=== PATIENT | female | born 1960 | race Caucasian/White ===

== ENCOUNTER 2022-03-14 09:57 | Emergency (ER) | payer OTHER, SELFPAY ==
[2022-03-14 09:58] VITALS: BP 128/85; PULSE 100; RESP 17; TEMP 36.5; O2SAT 97; BMI 30.9
--- NOTE | 2022-03-14 10:15 | EDS_ITS ---
HPI History of Present Illness Chief Complaint: Chest Pain Informant: patient Onset/Context/Timing Onset: Today Activity at onset: gradual Timing: Continuous Quality: Positive for Aching Location: Left Parasternal Worsened By: Breathing Relieved By: Nothing Associated Symptoms: Positive for Cough and Lightheadedness; Negative for Nausea, Vomiting, Diaphoresis, Dyspnea, Fever, Acid Reflux or Palpitations Narrative Narrative: Patient presents with chest pain that began today. Patient states it has gradually gotten worse. Patient describes it as aching. Patient states it is over the left parasternal area. Patient states it is worse with deep breathing. Patient states nothing seems to help with it. Patient admits to a cough but denies any shortness of breath. Patient denies any nausea or vomiting. Patient does admit to some lightheadedness. Patient denies any fevers or chills. Patient denies any palpitations. Patient has a family history with a sibling with coronary artery disease in his early 50s. Patient denies any other cardiac or PE risk factors. [facility] Medical History (Updated 03/14/22 @ 13:[address] Nirav Puente, ) A-fib Pulmonary HTN Sleep apnea Home Medications Vitamin B-12 DAILY 03/14/22 [History Last Taken Unknown] Vitamin C DAILY 03/14/22 [History Last Taken Unknown] Vitamin D3 DAILY 03/14/22 [History Last Taken Unknown] potassium DAILY 03/14/22 [History Last Taken Unknown] rivaroxaban 20 mg tablet (Xarelto) 20 mg PO DAILY 03/14/22 [History Last Taken Unknown] vitamin E DAILY 03/14/22 [History Last Taken Unknown] Allergy/AdvReac Type Severity Reaction Status Date / Time codeine Allergy Other Verified 03/14/22 10:07 ibuprofen [From Motrin] Allergy Hives Verified 03/14/22 10:07 Iodinated Contrast Media [CT] Allergy Chest Verified 03/14/22 10:07 tightness morphine Allergy Hives Verified 03/14/22 10:07 phenytoin sodium Allergy Other Verified 03/14/22 10:07 [From Dilantin] phenytoin sodium extended Allergy Other Verified 03/14/22 10:07 [From Dilantin] sulfamethoxazole Allergy Hives Verified 03/14/22 10:07 [From Bactrim] trimethoprim [From Bactrim] Allergy Hives Verified 03/14/22 10:07 Surgical History (Updated 03/14/22 @ 10:[address] Nirav Puente DO) History of bunionectomy Hx of tonsillectomy Hx of tubal ligation Social History Smoking Status: Never smoker ROS ROS ED Constitutional Constitutional ED: Denies chills or fever(s) Eyes Eyes: Denies blurry vision or change in vision ENT ENT ED: Reports rhinorrhea; Denies sore throat Cardiovascular Cardiovascular: Reports chest pain; Denies palpitations Respiratory/Chest Respiratory/Chest: Reports cough; Denies dyspnea Gastrointestinal Gastrointestinal: Denies abdominal pain, nausea or vomiting Genitourinary Genitourinary ED: Denies dysuria or hematuria Musculoskeletal Musculoskeletal: Reports back pain and neck pain Integumentary Denies abscess or rash Neurologic Neurologic: Denies headache(s) or weakness Allergic/Immunologic Allergic/Immunologic ED: Denies mouth swelling or urticaria EXAM Physical Exam Const Vital Signs: 03/14/22 09:58 03/14/22 10:08 03/14/22 10:30 Temperature 97.7 F L Temperature Source Temporal Pulse Rate 100 Respiratory Rate 17 Respiratory Effort Normal Non-Labored Blood Pressure 128/85 H Blood Pressure Mean 99 Pulse Ox 97 96 Oxygen Delivery Method Room Air Room Air 03/14/22 11:38 03/14/22 13:34 Temperature Temperature Source Pulse Rate 90 Respiratory Rate 22 H Respiratory Effort Blood Pressure 118/70 113/69 Blood Pressure Mean 86 83 Pulse Ox 95 Oxygen Delivery Method Room Air Positive well nourished and well developed General Appearance ED: well developed and NAD HEENT normocephalic and atraumatic Eyes PERRL and EOMs intact bilaterally Neck supple and no JVD Chest Wall palpation of chest normal Resp normal respiratory effort and clear to auscultation bilaterally Effort and Inspection: Negative for respiratory distress Cardio regular rate, regular rhythm and no murmurs GI normal to inspection, nondistended, normoactive bowel sounds, soft to palpation, non-tender and non-distended Extremity normal to inspection General Extremety ED: Negative for edema or tenderness General Extremity: Negative for edema Neuro oriented x3, CN's II-XII intact bilaterally and no sensory deficits noted Sensorium / Orientation: awake and alert Motor Exam: strength 5/5 throughout Psych mental status grossly normal Heart Score History: Slightly/Non-Suspicious ECG: Normal Age: >45 - <65 years Risk Factors: 1 or 2 Risk Factors Troponin: </= Normal Limit Score: 2 MDM MDM MDM Narrative Medical decision making narrative: EKG was obtained. On my interpretation, it showed a normal sinus rhythm with a rate of 100 with occasional PVCs and PACs. ND interval, QRS interval, and QTc intervals were all normal. [place] was normal. There are no acute ST or T wave changes. Portable 1 view chest x-ray was obtained. On my interpretation, lung العلي are clear. There is normal cardiac silhouette. Bony thorax is normal. There is no acute process noted. Radiologist also interpreted the x-ray and agrees. CBC was within normal limits. Basic metabolic profile was within normal initial high-sensitivity troponin was normal at 7. 2-hour repeat high-sensitivity troponin was also normal at 5. Patient feels better on reevaluation. Patient was advised of her findings. Patient has a HEART score of 3. Patient was advised that this is low risk for acute cardiac event. Patient was instructed to follow-up with her primary care physician in 5 to 7 days. Patient was also instructed to follow-up with her research center director as scheduled. Patient understood and was agreeable with the plan. All questions were answered. Lab Data Attestation: I reviewed the patient's lab results. Labs: Laboratory Results - last 24 hr 03/14/22 03/14/22 03/14/22 10:05 10:05 12:25 WBC 10.0 RBC 4.54 Hgb 14.1 Hct 40.7 MCV 89.6 MCH 31.1 MCHC 34.6 RDW Std Deviation 44.9 H RDW Coeff of Jenn 14.1 Plt Count 228 MPV 10.2 Immature Gran % (Auto) 0.700 Neut % (Auto) 71.1 H Lymph % (Auto) 20.7 Eddy % (Auto) 5.5 Eos % (Auto) 1.6 Baso % (Auto) 0.4 Absolute Neuts (auto) 7.1 Absolute Lymphs (auto) 2.07 Nucleated RBC % 0 Sodium 140 Potassium 3.6 Chloride 106 Carbon Dioxide 28.0 Anion Gap 6 BUN 21 H Creatinine 0.87 Estim Creat Clear Calc 64.37 Est GFR (MDRD) Af Amer 85 Est GFR (MDRD) Non-Af 70 BUN/Creatinine Ratio 24.1 H Glucose 118 H Calcium 9.6 Troponin I High Sens 7 5 Radiography Chest X-Ray - ED: 1 View, Read by ED Physician, Read by Radiologist and No Acute Disease Diagnostic Testing: Clinical Impression(s) from Imaging Studies Chest X-Ray 03/14/22 10:30 IMPRESSION: No evidence of acute cardiopulmonary process. Electronically Signed: Jacob Rivera DO at 11:06 EDT Reading Location ID and State: [facility] / [place] , Service support , EKG Initial EKG: Attestation: I personally reviewed and interpreted this EKG as follows: Interpretation: Sinus Rhythm (100 with frequent PVCs and PACs) and No Acute Injury Pattern Prior EKG tracings: available for review Prior: Unchanged Discharge Plan Triage Chief Complaint: Chest Pain ED Provider: Nirav Puente Dx/Rx/DC Orders Clinical Impression: Chest pain Instructions: ED Chest Pain, Uncertain Cause Prescriptions: No Action Xarelto 20 mg Tablet 20 mg PO DAILY Rx Instructions: must administer with evening meal Vitamin B-12 DAILY Vitamin C DAILY Vitamin D3 DAILY potassium DAILY vitamin E DAILY Primary Care Provider: MAR MOORE Referrals: Town Doctor,Out of [NON-STAFF] - 5-7 Days Disposition Disposition: Home, Self Care
--- NOTE | 2022-03-14 10:20 | EKG12_ITS ---
Test Reason : CHEST PAIN Blood Pressure : / mmHG Vent. Rate : 100 BPM Atrial Rate : 100 BPM P-R Int : 168 ms QRS Dur : 068 ms QT Int : 352 ms P-R-T Axes : 021 099 024 degrees QTc Int : 454 ms Atrial fibrillation Low voltage QRS Confirmed by SAPNA CRURAN, STUART ([id number]), industrial editor ROBIN ROLAND ([id number]) on 03/16/2022 11:28:49 AM Referred By: DELICIA Confirmed By:STUART ALEJO MD
[2022-03-14] MEDS: Aspirin 81 MG TAB.CHEW 324 MG PO (10:25)
[2022-03-14 10:29] LABS: Absolute Lymphocyte Count 2.07 X10^3/uL (0.83-4.51); Absolute Neutrophil Count 7.1 X10^3/uL (2.0-7.7); Basophil# 0.04 X10^3/uL; Basophil% 0.4 % (0-1); Eosinophil# 0.16 X10^3/uL; Eosinophils% 1.6 % (0-5); Hematocrit 40.7 % (37-47); Hemoglobin 14.1 g/dL (12.0-15.0); Lymphocyte # 2.07 X10^3/ul (0.83-4.51); Lymphocyte % 20.7 % (19-41); Mean Corp Hgb Conc 34.6 g/dL (32-36); Mean Corpuscular Hgb 31.1 pg (27.0-32.0); Mean Corpuscular Volume 89.6 fL (81-99); Mean Platelet Vol. 10.2 fl (6.2-12.0); Monocyte# 0.55 X10^3/uL; Monocyte% 5.5 % (0-10); NRBC Flagged by Analyzer 0 % (0-5); Neutrophil # 7.13 X10^3/uL (2.7-7.7); Neutrophil % 71.1 % (47-70); Platelet Count 228 K/mm3 (150-450); RBC Distribution Width CV 14.1 % (11.6-14.6); RBC Distribution Width SD 44.9 fl (35.1-43.9); Red Blood Count 4.54 M/mm3 (4.2-5.4)
[2022-03-14 10:30] VITALS: O2SAT 96
--- NOTE | 2022-03-14 10:30 | RAD_ITS ---
STUDY: X-RAY CHEST REASON FOR EXAM: Female, 61 years old. chest pain TECHNIQUE: Single AP portable view of the chest. COMPARISON: 02/17/2016 FINDINGS: The lungs are clear and expanded. There is no demonstrated pleural abnormality. There is borderline cardiomegaly. Normal mediastinum and vale. Normal visualized pulmonary arteries. Normal visualized aortic arch and descending thoracic aorta. Normal visualized thoracic spine. Normal visualized ribs, clavicles, and shoulders. There is no demonstrated abnormality of the visualized soft tissue structures of the upper abdomen. RAD/Chest 1 View (Portable) IMPRESSION: No evidence of acute cardiopulmonary process. Electronically Signed: Jacob Rivera DO at 11:06 EDT ,
[2022-03-14 10:47] LABS: Anion Gap 6 (5-15); BUN 21 mg/dL (7-18); BUN/Creat Ratio 24.1 RATIO (10-20); Calcium,Total 9.6 mg/dL (8.5-10.1); Chloride 106 mmol/L (98-107); Creatinine, Serum 0.87 mg/dL (0.55-1.02); EST Glomerular Filtration Rate 70 mL/min (>60); Est Glom Filt Rate - Afr Amer 85 mL/min (>60); Estimated Creatinine Clearance 64.37 ml/min; Glucose 118 mg/dL (74-106); Potassium 3.6 mmol/L (3.5-5.1); Sodium Level 140 mmol/L (136-145); Troponin-I HS (w/2H Reflex) 7 pg/mL (3.0-54.0)
[2022-03-14 11:38] VITALS: BP 118/70
[2022-03-14 12:25] LABS: Reflex Troponin-HS? (from REC) Y
[2022-03-14 12:58] LABS: Troponin-I HS 5 pg/mL (3.0-54.0)
[2022-03-14 13:34] VITALS: BP 113/69; PULSE 90; RESP 22; O2SAT 95
[2022-03-14 13:55] VITALS: BP 113/69; PULSE 86; RESP 20; O2SAT 94
== END 2022-03-14 14:01 | disposition home or self-care (01) ==
PROVIDERS: Emergency Provider Emergency Medicine; Visit Provider Emergency Medicine
DX: R07.9 Chest pain, unspecified (principal); I48.91 Unspecified atrial fibrillation; Z79.01 Long term (current) use of anticoagulants; Z82.49 Family history of ischemic heart disease and other diseases of the circulatory system
CPT/HCPCS: 71045; 80048; 84484; 85025; 93005; 99284; A4216

== ENCOUNTER → 2022-11-16 | Outpatient (CLI) | payer OTHER, SELFPAY ==
--- NOTE | 2022-11-16 10:17 | RAD_ITS ---
INDICATION: PAIN EXAMINATION/TECHNIQUE: X-RAY - XR Pelvis 1 or 2 Views COMPARISON: None. FINDINGS: PELVIC BONES: No displaced fracture, destructive or sclerotic lesions. Note that overlapping bowel shadows may however obscure fine detail. Sacroiliac joints are unremarkable. No widening of the pubic symphysis. HIPS: There are bilateral degenerative changes of the hips, left greater than right characterized by joint space narrowing and subchondral sclerosis. SOFT TISSUES: No soft tissue swelling or gas. RAD/Pelvis 1 or 2 Views IMPRESSION: Degenerative changes of the hips, left greater than right. Electronically Signed: Whit Medina MD at 8:41 EST ,
[2022-11-16 11:19] LABS: EXAGEN MAILED SPECIMEN
[2022-11-16 12:22] LABS: Color, Urine Yellow (Yellow); Glucose, Dipstick Normal (Normal); Ketone-Dipstick Negative (Negative); Leukocyte Esterase-Dipstick 500 /ul (Negative); Nitrite-Dipstick Negative (Negative); Occult Blood-Urine 25 /ul (Negative); Protein-Dipstick 15 mg/dl (Negative); Specific Gravity, Urine 1.025 (1.002-1.030); Urine Bilirubin Dipstick Negative (Negative); Urine Clarity Sl. Cloudy (Clear); Urine Urobilinogen Normal (Normal)
[2022-11-16 12:27] LABS: Erythrocyte Sedimentation Rate 5 mm/hr (0-30)
[2022-11-16 12:33] LABS: International Normalized Ratio 1.6; Prothrombin Time (Protime)PT. 18.8 SECONDS (11.7-14.9)
[2022-11-16 12:34] LABS: Partial Thromboplast Time 38.3 Seconds (24.1-36.2)
[2022-11-16 12:44] LABS: Absolute Lymphocyte Count 1.07 X10^3/uL (0.83-4.51); Absolute Neutrophil Count 4.4 X10^3/uL (2.0-7.7); Basophil# 0.05 X10^3/uL; Basophil% 0.8 % (0-1); Eosinophil# 0.15 X10^3/uL; Eosinophils% 2.5 % (0-5); Hematocrit 37.8 % (37-47); Hemoglobin 13.1 g/dL (12.0-15.0); Lymphocyte # 1.07 X10^3/ul (0.83-4.51); Lymphocyte % 17.5 % (19-41); Mean Corp Hgb Conc 34.7 g/dL (32-36); Mean Corpuscular Hgb 31.6 pg (27.0-32.0); Mean Corpuscular Volume 91.1 fL (81-99); Monocyte# 0.38 X10^3/uL; Monocyte% 6.2 % (0-10); NRBC Flagged by Analyzer 0 % (0-5); Neutrophil # 4.43 X10^3/uL (2.7-7.7); Neutrophil % 72.7 % (47-70); Platelet Count 144 K/mm3 (150-450); Protein, Urine (Random) 11.4 mg/dL (<11.9); Protein:Creat Ratio 76 mg/g CRE (0-200); RBC Distribution Width SD 45.3 fl (35.1-43.9); Red Blood Count 4.15 M/mm3 (4.2-5.4); White Blood Count 6.1 K/mm3 (4.4-11.0)
[2022-11-16 12:52] LABS: AST(SGOT) 174 U/L (15-37); Alanine Aminotransfer ALT/SGPT 297 U/L (13-56); Albumin, Serum 3.9 g/dL (3.2-5.0); Alkaline Phosphatase 122 U/L (45-117); Anion Gap 4 (5-15); BUN 20 mg/dL (7-18); BUN/Creat Ratio 24.9 RATIO (10-20); CRP 7.98 mg/L (0.0-3.0); Calcium,Total 9.1 mg/dL (8.5-10.1); Chloride 104 mmol/L (98-107); EST Glomerular Filtration Rate 77 mL/min (>60); Est Glom Filt Rate - Afr Amer 93 mL/min (>60); Globulin 3.9 g/dL (2.2-4.2); Glucose 95 mg/dL (74-106); Potassium 3.4 mmol/L (3.5-5.1); Protein, Total 7.8 g/dL (6.4-8.2); Sodium Level 139 mmol/L (136-145)
[2022-11-18 14:07] LABS: Dilute Prothrombin Time (dPT) 63.7 sec (0.0-47.6); Dilute Russell Viper Venom 96.3 sec (0.0-47.0); Hexagonal Phase Phospholipid 4 sec (0-11); Hexagonal Phase Phospholipid 2 4 sec (0-11); Thrombin Time 16.1 sec (0.0-23.0); dPT Confirm Ratio 0.85 Ratio (0.00-1.34)
[2022-11-19 09:50] LABS: Interpretation Comment: (.); PTT-LA 48.2 sec (0.0-43.5); PTT-LA Mix 45.2 sec (0.0-40.5)
== END | disposition home or self-care (01) ==
LOC: MTLAB 10:15
PROVIDERS: Referring Provider Internal Medicine Rheumatology; Visit Provider Internal Medicine Rheumatology
DX: M65.341 Trigger finger, right ring finger (principal); R76.8 Other specified abnormal immunological findings in serum; M16.0 Bilateral primary osteoarthritis of hip; R10.2 Pelvic and perineal pain
CPT/HCPCS: 36415; 72170; 80053; 81002; 82570; 84156; 85025; 85598; 85610; 85652; 85730; 86140

== ENCOUNTER 2023-10-09 06:22 | Inpatient (IN) | payer OTHER, SELFPAY ==
[2023-10-09] VITALS (10 sets, daily range): BP systolic 110–135; BP diastolic 55–75; PULSE 62–87; RESP 15–17; TEMP 36.5–37; O2SAT 94–98; BMI 29.1; BMI 28.7
--- NOTE | 2023-10-09 07:03 | EKG12_ITS ---
Test Reason : ABD PAIN Blood Pressure : / mmHG Vent. Rate : 069 BPM Atrial Rate : 069 BPM P-R Int : 176 ms QRS Dur : 068 ms QT Int : 430 ms P-R-T Axes : 051 072 051 degrees QTc Int : 460 ms Normal sinus rhythm Low voltage QRS Borderline ECG Confirmed by RODY CURRAN, KHADAR ([id number]), development editor ROBIN ROLAND ([id number]) on 10/11/2023 7:59:09 AM Referred By: Confirmed By:KHADAR FINE MD
--- NOTE | 2023-10-09 07:13 | CT_ITS ---
STUDY: CT ABDOMEN AND PELVIS WITH CONTRAST - URINARY TRACT REASON FOR EXAM: Female, 63 years old. abdominal pain RADIATION DOSAGE (If Supplied By Facility): CTDIvol = ( 14.67 ) mGy, DLP = ( 996.86 ) mGycm TECHNIQUE: IV 100mL Isovue-370 was administered. Transaxial images were obtained from the dome of the diaphragm to the symphysis pubis in the arterial, nephrographic and excretory phases. Multiplanar coronal and sagittal images were reformatted. Individualized Dose Optimization Techniques Were Used For This CT. COMPARISON: No priors available. FINDINGS: The visualized lung bases are unremarkable. The visualized portions of the heart are within normal limits. Normal liver. The gallbladder slightly distended. There is splenomegaly. Normal pancreas. Normal bilateral adrenal glands. Normal visualized stomach. Normal small intestine. Normal colon. There are surgical clips in the region of the appendix consistent with a prior appendectomy. Normal abdominal aorta. No retroperitoneal adenopathy. Normal right kidney. There are too small to characterize low attenuation foci within the left kidney which likely represent cysts. Normal urinary bladder. Normal abdominal wall. There are diffuse degenerative changes of the visualized thoracic and lumbar spine. CT/Abdomen/Pelvis W IV Cont ONLY IMPRESSION: Splenomegaly. Mildly distended gallbladder with no associated gallbladder wall thickening or pericholecystic fluid, consider right upper quadrant ultrasound for further evaluation. Electronically Signed: Whit Medina MD at 9:56 EST ,
--- NOTE | 2023-10-09 07:47 | EDS_ITS ---
HPI <Dr. Yovanny Bran DO - Last Filed: 10/14/23 22:05> History of Present Illness Chief Complaint: Abd Pain Informant: patient and family Narrative Narrative: Patient is a 63-year-old female with past medical history of atrial fibrillation on Xarelto as well as pulmonary hypertension and sleep apnea. She states that last night around midnight she developed pain in the midepigastric region with mild nausea. She states as the night progressed the pain began to wrap around towards her sides and back and increased in severity. She states that with the increased pain she is concerned that this could be potential infection or even cardiac based on it occurring in the upper abdomen and therefore comes in for evaluation PENDING SALE TO [facility] <Dr. Yovanny Bran, - Last Filed: 10/14/23 22:05> PENDING SALE TO [facility] Medical History (Updated 10/12/23 @ 08:[address] Elvia Terrell MD) A-fib Cirrhosis Pulmonary HTN Sleep apnea Home Medications rivaroxaban 20 mg tablet (Xarelto) 20 mg PO QPM BLOOD THINNER 03/14/22 [History Last Taken 10/08/23] acetaminophen 325 mg tablet 325 mg PO Q6H PRN PAIN 10/09/23 [History Last Taken Unknown] bumetanide 1 mg tablet 1 mg PO DAILY PRN EDEMA 10/09/23 [History Last Taken Unknown] buspirone 5 mg tablet 5 mg PO TID PRN ANXIETY 10/09/23 [History Last Taken Unknown] cholecalciferol (vitamin D3) 25 mcg (1,000 unit) tablet (Vitamin D3) 25 mcg PO DAILY SUPPLEMENT 10/09/23 [History Last Taken 10/08/23] colchicine 0.6 mg tablet 0.6 mg PO Q12H GOUT 10/09/23 [History Last Taken 10/08/23] cyanocobalamin (vitamin B-12) 1,000 mcg capsule 1,000 mcg PO DAILY SUPPLEMENT 10/09/23 [History Last Taken 10/08/23] dofetilide 500 mcg capsule (Tikosyn) 500 mcg PO BID AFIB 10/09/23 [History Last Taken 10/08/23] magnesium 250 mg tablet 250 mg PO BID SUPPLEMENT 10/09/23 [History Last Taken 10/08/23] metoprolol succinate 25 mg tablet,extended release 24 hr 12.5 mg PO QPM BLOOD PRESSURE 10/09/23 [History Last Taken 10/08/23] metoprolol succinate 25 mg tablet,extended release 24 hr 25 mg PO DAILY BLOOD PRESSURE 10/09/23 [History Last Taken 10/08/23] pantoprazole 40 mg tablet,delayed release 40 mg PO DAILY ACID REFLUX 10/09/23 [History Last Taken 10/08/23] potassium chloride 20 mEq tablet,extended release (K-Tab) 20 meq PO DAILY PRN SUPPLEMENT 10/09/23 [History Last Taken Unknown] tadalafil 20 mg tablet 20 mg PO BID LUNGS 10/09/23 [History Last Taken 10/08/23] tramadol 50 mg tablet 50 mg PO Q6H PRN pain #14 tabs 10/12/23 [Rx Last Taken Unknown] Allergy/AdvReac Type Severity Reaction Status Date / Time codeine Allergy Other Verified 03/14/22 10:07 ibuprofen [From Motrin] Allergy Hives Verified 03/14/22 10:07 Iodinated Contrast Media [CT] Allergy Chest Verified 03/14/22 10:07 tightness morphine Allergy Hives Verified 03/14/22 10:07 phenytoin sodium Allergy Other Verified 03/14/22 10:07 [From Dilantin] phenytoin sodium extended Allergy Other Verified 03/14/22 10:07 [From Dilantin] sulfamethoxazole Allergy Hives Verified 03/14/22 10:07 [From Bactrim] trimethoprim [From Bactrim] Allergy Hives Verified 03/14/22 10:07 Surgical History (Updated 10/12/23 @ 08:[address] Elvia Terrell MD) History of bunionectomy Hx of maze procedure Hx of tonsillectomy Hx of tubal ligation S/P ERCP S/P laparoscopic cholecystectomy Social History Smoking Status: Never smoker ROS <Dr. Yovanny Bran DO - Last Filed: 10/14/23 22:05> ROS ED Constitutional Constitutional ED: Denies chills or fever(s) Eyes Eyes: Denies change in vision ENT ENT ED: Denies sore throat Cardiovascular Cardiovascular: Denies chest pain Respiratory/Chest Respiratory/Chest: Denies cough or dyspnea Gastrointestinal Gastrointestinal: Reports abdominal pain and nausea; Denies diarrhea or vomiting Genitourinary Genitourinary ED: Denies dysuria Musculoskeletal Musculoskeletal: Reports back pain; Denies myalgias Integumentary Denies rash Neurologic Neurologic: Denies headache(s) Hematologic/Lymphatic Hematologic/Lymphatic: Reports easy bleeding and easy bruising EXAM <Dr. Yovanny Bran, DO - Last Filed: 10/14/23 22:05> Physical Exam Const Vital Signs: 10/09/23 06:23 10/09/23 08:22 10/09/23 10:22 Temperature 97.7 F L Temperature Source Temporal Pulse Rate 69 Respiratory Rate 15 16 16 Blood Pressure 135/63 H Blood Pressure Mean 87 Pulse Ox 96 Oxygen Delivery Method Room Air Positive well nourished and well developed General Appearance ED: well developed HEENT Reports dry mucous membranes HEENT Narrative: Mucous membranes are dry and tacky No airway edema or compromise No signs of infection noted in the posterior pharynx Mouth ED: Yes dry mucous membranes Mouth: dry mucous membranes Eyes PERRL and EOMs intact bilaterally General Eye ED: Negative for scleral icterus Neck supple Neck Narrative: No nuchal rigidity or meningeal signs noted Chest Wall palpation of chest normal Chest Narrative: No bony deformity or crepitance palpated Resp normal respiratory effort and clear to auscultation bilaterally Cardio regular rate and regular rhythm Rate: other Other Details: Radial and carotid pulses are equal and symmetric GI non-distended GI Narrative: There is pain with palpation in the midepigastric region without voluntary guarding or rigidity No pulsatile mass or fluid wave Auscultation: normoactive bowel sounds Palpation: soft Extremity Extremity Narrative: Trace pitting edema to the bilateral lower extremities that is equal and symmetric Negative Homans' sign bilaterally Neuro oriented x3, CN's II-XII intact bilaterally and no sensory deficits noted Sensorium / Orientation: alert Motor Exam: strength 5/5 throughout Psych mental status grossly normal Skin no rashes or lesions noted General Skin Exam: Negative for jaundice <Dr. Amber Garcia DO - Last Filed: 10/09/23 16:03> Physical Exam Const Vital Signs: 10/09/23 06:23 10/09/23 08:22 10/09/23 10:22 Temperature 97.7 F L Temperature Source Temporal Pulse Rate 69 Respiratory Rate 15 16 16 Blood Pressure 135/63 H Blood Pressure Mean 87 Pulse Ox 96 Oxygen Delivery Method Room Air MDM <Dr. Yovanny Bran, DO - Last Filed: 10/14/23 22:05> MDM MDM Narrative Medical decision making narrative: Patient presented to the ER with stable vitals and reported midepigastric abdominal pain that began around midnight. Differential diagnosis is for gastritis versus pancreatitis versus biliary colic versus colitis versus potential intestinal obstruction. Based on the high location of the pain there is also concern this could be acute coronary syndrome. Secondary to this an EKG was obtained which showed normal sinus rhythm and basic blood work was ordered as well. With concern for underlying infectious process or potential biliary colic or pancreatitis I did elect to perform a CT scan with IV contrast. At this time CT and laboratory studies are still pending and therefore patient be signed out to the day physician Dr. Mireles. Disposition will be per his discretion based on imaging and laboratory studies History & Record Review Discussion w/independent historian: Patient and Family Lab Data Labs: Laboratory Results - last 24 hr 10/09/23 08:05 WBC 7.7 RBC 4.29 Hgb 13.2 Hct 37.9 MCV 88.3 MCH 30.8 MCHC 34.8 RDW Std Deviation 43.0 RDW Coeff of Jenn 13.8 Plt Count 157 MPV 10.0 Immature Gran % (Auto) 0.800 Neut % (Auto) 83.9 H Lymph % (Auto) 8.7 L [place] % (Auto) 5.7 Eos % (Auto) 0.4 Baso % (Auto) 0.5 Absolute Neuts (auto) 6.5 Absolute Lymphs (auto) 0.67 L Nucleated RBC % 0 Sodium 138 Potassium 4.0 Chloride 105 Carbon Dioxide 29.0 Anion Gap 4 L BUN 13 Creatinine 0.86 Estim Creat Clear Calc 70.63 Est GFR (MDRD) Af Amer 86 Est GFR (MDRD) Non-Af 71 BUN/Creatinine Ratio 15.2 Glucose 125 H Calcium 9.4 Total Bilirubin 3.00 H Direct Bilirubin 1.91 H AST 190 H ALT 101 H Alkaline Phosphatase 164 H Troponin I High Sens 7 Total Protein 7.4 Albumin 3.8 Globulin 3.6 Lipase 39 Radiography Diagnostic Testing: Clinical Impression(s) from Imaging Studies Abdomen/Pelvis CT 10/09/23 07:13 IMPRESSION: Splenomegaly. Mildly distended gallbladder with no associated gallbladder wall thickening or pericholecystic fluid, consider right upper quadrant ultrasound for further evaluation. Electronically Signed: Whit Medina MD at 9:56 EST , Gallbladder Ultrasound 10/09/23 08:34 IMPRESSION: Sludge and gallstones within a mildly distended gallbladder with no associated pericholecystic fluid, gallbladder wall thickening nor reported positive sonographic Munson''s sign. Electronically Signed: Whit Medina MD at 10:18 EST Reading Location ID and State: [facility] / [place] Tel , Service support , <Dr. Amber Garcia, DO - Last Filed: 10/09/23 16:03> [facility] MDM Narrative Medical decision making narrative: Patient presented to the ER with stable vitals and reported midepigastric abdominal pain that began around midnight. Differential diagnosis is for gastritis versus pancreatitis versus biliary colic versus colitis versus potential intestinal obstruction. Based on the high location of the pain there is also concern this could be acute coronary syndrome. Secondary to this an EKG was obtained which showed normal sinus rhythm and basic blood work was ordered as well. With concern for underlying infectious process or potential biliary colic or pancreatitis I did elect to perform a CT scan with IV contrast. At this time CT and laboratory studies are still pending and therefore patient be signed out to the day physician Dr. Mireles. Disposition will be per his discretion based on imaging and laboratory studies Care of patient turned over to tx awaiting a CT scan results as well as gallbladder ultrasound results and consultation with general surgery. Patient CT showed distended gallbladder otherwise nothing acute. Gallbladder ultrasound showed slightly distended gallbladder with sludge and gallstones. There is no gallbladder wall thickening or pericholecystic fluid. Patient clinically feels improved pain edmond but still has pain with palpation of the abdomen. I discussed case with Dr. Ventura who will admit patient. He did asked that we consult medicine for consult. I was asked to start patient on Zosyn. Lab Data Labs: Laboratory Results - last 24 hr 10/09/23 08:05 WBC 7.7 RBC 4.29 Hgb 13.2 Hct 37.9 MCV 88.3 MCH 30.8 MCHC 34.8 RDW Std Deviation 43.0 RDW Coeff of Jenn 13.8 Plt Count 157 MPV 10.0 Immature Gran % (Auto) 0.800 Neut % (Auto) 83.9 H Lymph % (Auto) 8.7 L [place] % (Auto) 5.7 Eos % (Auto) 0.4 Baso % (Auto) 0.5 Absolute Neuts (auto) 6.5 Absolute Lymphs (auto) 0.67 L Nucleated RBC % 0 Sodium 138 Potassium 4.0 Chloride 105 Carbon Dioxide 29.0 Anion Gap 4 L BUN 13 Creatinine 0.86 Estim Creat Clear Calc 70.63 Est GFR (MDRD) Af Amer 86 Est GFR (MDRD) Non-Af 71 BUN/Creatinine Ratio 15.2 Glucose 125 H Calcium 9.4 Total Bilirubin 3.00 H Direct Bilirubin 1.91 H AST 190 H ALT 101 H Alkaline Phosphatase 164 H Troponin I High Sens 7 Total Protein 7.4 Albumin 3.8 Globulin 3.6 Lipase 39 Radiography Diagnostic Testing: Clinical Impression(s) from Imaging Studies Abdomen/Pelvis CT 10/09/23 07:13 IMPRESSION: Splenomegaly. Mildly distended gallbladder with no associated gallbladder wall thickening or pericholecystic fluid, consider right upper quadrant ultrasound for further evaluation. Electronically Signed: Whit Medina MD at 9:56 EST Reading Location ID and State: [facility] / [place] Tel , Service support , Gallbladder Ultrasound 10/09/23 08:34 IMPRESSION: Sludge and gallstones within a mildly distended gallbladder with no associated pericholecystic fluid, gallbladder wall thickening nor reported positive sonographic Munson''s sign. Electronically Signed: Whit Medina MD at 10:18 EST , Discharge Plan Dx/Rx/DC Orders Clinical Impression: Elevated liver enzymes, Abdominal pain, Acute cholecystitis, Cholelithiasis Disposition Disposition: [facility] Discharge Date/Time: 10/09/23 14:16 Capacity <Dr. Yovanny Bran, DO - Last Filed: 10/14/23 22:05> Legal [employer] Reflex Medical hold order details:: IF a medical hold is selected below, a suggested order for a MEDICAL HOLD will reflex upon signing the document. Next of kin: [place] law dictates a PRIORITY LIST for identifying legal decision-maker/legal n ext of kin in the following order (LNOK): 1st: The patient?s legal guardian, if any 2nd: The patient's spouse (if status is questionable, consult Risk Management) 3rd: The patient?s adult child(alejandro) (majority, if multiple children) 4th: The patient?s parents 5th: The patient?s adult siblings (majority, if multiple children siblings)
[2023-10-09] MEDS: 0.9% Normal Saline (1000mL) 1,000 ML 999 ML IV (08:11)
[2023-10-09] MEDS: DiphenhydrAMINE 50 MG/ML Syringe 25 MG IV (08:11)
[2023-10-09] MEDS: MethylPREDNISolone 125 MG/2 ML Vial IV (08:11)
[2023-10-09] MEDS: Ondansetron 4 MG/2 ML Vial IV (08:11)
[2023-10-09] MEDS: Morphine 4 MG/ML Syringe IV (08:11)
[2023-10-09 08:12] LABS: Absolute Lymphocyte Count 0.67 X10^3/uL (0.83-4.51); Absolute Neutrophil Count 6.5 X10^3/uL (2.0-7.7); Basophil# 0.04 X10^3/uL; Basophil% 0.5 % (0-1); Eosinophil# 0.03 X10^3/uL; Eosinophils% 0.4 % (0-5); Hematocrit 37.9 % (37-47); Hemoglobin 13.2 g/dL (12.0-15.0); Lymphocyte # 0.67 X10^3/ul (0.83-4.51); Lymphocyte % 8.7 % (19-41); Mean Corp Hgb Conc 34.8 g/dL (32-36); Mean Corpuscular Hgb 30.8 pg (27.0-32.0); Mean Corpuscular Volume 88.3 fL (81-99); Monocyte# 0.44 X10^3/uL; Monocyte% 5.7 % (0-10); NRBC Flagged by Analyzer 0 % (0-5); Neutrophil % 83.9 % (47-70); Platelet Count 157 K/mm3 (150-450); RBC Distribution Width CV 13.8 % (11.6-14.6); Red Blood Count 4.29 M/mm3 (4.2-5.4); White Blood Count 7.7 K/mm3 (4.4-11.0)
[2023-10-09 08:33] LABS: AST(SGOT) 190 U/L (15-37); Alanine Aminotransfer ALT/SGPT 101 U/L (13-56); Albumin, Serum 3.8 g/dL (3.2-5.0); Alkaline Phosphatase 164 U/L (45-117); Anion Gap 4 (5-15); BUN 13 mg/dL (7-18); BUN/Creat Ratio 15.2 RATIO (10-20); Bilirubin, Direct 1.91 mg/dL (0.00-0.30); Calcium,Total 9.4 mg/dL (8.5-10.1); Chloride 105 mmol/L (98-107); Creatinine, Serum 0.86 mg/dL (0.55-1.02); EST Glomerular Filtration Rate 71 mL/min (>60); Est Glom Filt Rate - Afr Amer 86 mL/min (>60); Estimated Creatinine Clearance 70.63 ml/min; Globulin 3.6 g/dL (2.2-4.2); Glucose 125 mg/dL (74-106); Lipase 39 U/L (13-75); Protein, Total 7.4 g/dL (6.4-8.2); Sodium Level 138 mmol/L (136-145); Troponin-I HS 7 pg/mL (3.0-54.0)
--- NOTE | 2023-10-09 08:34 | US_ITS ---
INDICATION: Abdominal pain EXAMINATION: Ultrasound US Abdomen Limited (quadrant) TECHNIQUE: Quiroga scale and color doppler imaging was performed of the right upper quadrant. COMPARISON: CT dated October 09, 2023 FINDINGS: LIVER: There is normal echotexture. No focal hepatic lesion. There is no free fluid. GALLBLADDER AND BILIARY TREE: The gallbladder is mildly distended. There are gallstones and sludge within the gallbladder. There is no gallbladder wall thickening or pericholecystic fluid. The proximal common bile duct measures 8.2 mm and tapers distally to 4.6 mm. Songraphic Munson''s sign: Negative. PANCREAS: No focal abnormality is demonstrated in the pancreas. No pancreatic ductal dilatation. RIGHT KIDNEY: The right kidney measures 10.8 cm in length and is within normal limits. US/Gallbladder IMPRESSION: Sludge and gallstones within a mildly distended gallbladder with no associated pericholecystic fluid, gallbladder wall thickening nor reported positive sonographic Munson''s sign. Electronically Signed: Whit Medina MD at 10:18 EST ,
--- NOTE | 2023-10-09 13:00 | HP.PCM_ITS ---
HPI - General General Date of Admission: 10/09/23 Date of Service: 10/09/23 Chief Complaint: Choledocholithiasis HPI Narrative YUE ANGULO, is a 63 F who presents with an acute onset of abdominal pain/epigastric pain. Patient states she was laying in bed around midnight when her epigastric discomfort started. Patient states her pain continued to intensify wrapping around her upper abdomen like a belt and into her back between her shoulder blades. Patient notes she started to become nauseated once the pain became worse. Patient stated that is when she presented to the ED. She notes one other occasion that she had similar less intense pain on when she ate chili. Patient denies previous gallbladder symptoms. She notes a history of cirrhosis, diagnosed in 2016, secondary to [place]. She notes recently establishing with a liver specialist at the OR. She was diagnosed based off of imaging and lab work. She notes the liver specialist was going to have the patient perform a liver biopsy, however this has not been scheduled. Patient notes a cardiac history for which her cardiology team is out of [facility]. Patient states in July of 2022 she had an arterial septal defect repaired. She notes in April of 2023 she had a Maze procedure for A fib. Patient notes this was complicated by the development of pericarditis. She continues to be on Xarelto for A fib. Her last dose was yesterday. Patient also has pulmonary hypertension and sleep apnea for which she uses a CPAP machine for. She notes her only abdominal surgery has been for a bladder sling. She notes the Maze procedure, she has an epigastric incision. Patient had a CT scan of the ab/pel which demonstrated splenomegaly, mildly distended gallbladder with no associated gallbladder wall thickening or pericholecystic fluid. RUQ u/s was obtained demonstrating The gallbladder is mildly distended. There are gallstones and sludge within the gallbladder. There is no gallbladder wall thickening or pericholecystic fluid. The proximal common bile duct measures 8.2 mm and tapers distally to 4.6 mm. Patient's liver enzymes were elevated T bili 3.00, AST 190, ALT 101, Alk phos 164. Normal WBC. [facility] Medical History A-fib Pulmonary HTN Sleep apnea Home Medications rivaroxaban 20 mg tablet (Xarelto) 20 mg PO QPM BLOOD THINNER 03/14/22 [History Last Taken 10/08/23] acetaminophen 325 mg tablet 325 mg PO Q6H PRN PAIN 10/09/23 [History Last Taken Unknown] bumetanide 1 mg tablet 1 mg PO DAILY PRN EDEMA 10/09/23 [History Last Taken Unknown] buspirone 5 mg tablet 5 mg PO TID PRN ANXIETY 10/09/23 [History Last Taken Unknown] cholecalciferol (vitamin D3) 25 mcg (1,000 unit) tablet (Vitamin D3) 25 mcg PO DAILY SUPPLEMENT 10/09/23 [History Last Taken 10/08/23] colchicine 0.6 mg tablet 0.6 mg PO Q12H GOUT 10/09/23 [History Last Taken 10/08/23] cyanocobalamin (vitamin B-12) 1,000 mcg capsule 1,000 mcg PO DAILY SUPPLEMENT 10/09/23 [History Last Taken 10/08/23] dofetilide 500 mcg capsule (Tikosyn) 500 mcg PO BID AFIB 10/09/23 [History Last Taken 10/08/23] magnesium 250 mg tablet 250 mg PO BID SUPPLEMENT 10/09/23 [History Last Taken 10/08/23] metoprolol succinate 25 mg tablet,extended release 24 hr 12.5 mg PO QPM BLOOD PRESSURE 10/09/23 [History Last Taken 10/08/23] metoprolol succinate 25 mg tablet,extended release 24 hr 25 mg PO DAILY BLOOD PRESSURE 10/09/23 [History Last Taken 10/08/23] pantoprazole 40 mg tablet,delayed release 40 mg PO DAILY ACID REFLUX 10/09/23 [History Last Taken 10/08/23] potassium chloride 20 mEq tablet,extended release (K-Tab) 20 meq PO DAILY PRN SUPPLEMENT 10/09/23 [History Last Taken Unknown] tadalafil 20 mg tablet 20 mg PO BID LUNGS 10/09/23 [History Last Taken 10/08/23] Allergy/AdvReac Type Severity Reaction Status Date / Time codeine Allergy Other Verified 03/14/22 10:07 ibuprofen [From Motrin] Allergy Hives Verified 03/14/22 10:07 Iodinated Contrast Media [CT] Allergy Chest Verified 03/14/22 10:07 tightness morphine Allergy Hives Verified 03/14/22 10:07 phenytoin sodium Allergy Other Verified 03/14/22 10:07 [From Dilantin] phenytoin sodium extended Allergy Other Verified 03/14/22 10:07 [From Dilantin] sulfamethoxazole Allergy Hives Verified 03/14/22 10:07 [From Bactrim] trimethoprim [From Bactrim] Allergy Hives Verified 03/14/22 10:07 Surgical History History of bunionectomy Hx of maze procedure Hx of tonsillectomy Hx of tubal ligation Social History Smoking Status: Never smoker ROS Constitutional Constitutional: Reports systems reviewed and no addt'l complaints, except as documented Eyes Eyes: Reports systems reviewed and no addt'l complaints, except as documented ENT HEENT: Reports systems reviewed and no addt'l complaints, except as documented Cardiovascular Cardiovascular: Reports systems reviewed and no addt'l complaints, except as documented Respiratory/Chest Respiratory/Chest: Reports systems reviewed and no addt'l complaints, except as documented Gastrointestinal Gastrointestinal: Reports systems reviewed and no addt'l complaints, except as documented Genitourinary Genitourinary: Reports systems reviewed and no addt'l complaints, except as documented Musculoskeletal Musculoskeletal: Reports systems reviewed and no addt'l complaints, except as documented Integumentary Integumentary: Reports systems reviewed and no addt'l complaints, except as doc umented Neurologic Neurologic: Reports systems reviewed and no addt'l complaints, except as documented Psychiatric Psychiatric: Reports systems reviewed and no addt'l complaints, except as documented Endocrine Endocrinology: Reports systems reviewed and no addt'l complaints, except as documented Hematologic/Lymphatic Hematologic/Lymphatic: Reports systems reviewed and no addt'l complaints, except as documented Allergic/Immunologic Allergic/Immunologic: Reports systems reviewed and no addt'l complaints, except as documented Vital Signs Vital Signs Vital Signs: 10/09/23 06:23 10/09/23 08:22 10/09/23 10:22 Temperature 97.7 F L Temperature Source Temporal Pulse Rate 69 Respiratory Rate 15 16 16 Blood Pressure 135/63 H Blood Pressure Mean 87 Pulse Ox 96 Oxygen Delivery Method Room Air Weight Weight: 175 lb 0.752 oz Body Mass Index (BMI) 29.1 Physical Exam Const alert, oriented x3 and no apparent distress General Appearance: cooperative and comfortable HEENT normocephalic and head/scalp atraumatic Eyes PERRL Neck full ROM Chest inspection of chest normal Resp normal respiratory effort and clear to auscultation bilaterally Cardio regular rate and regular rhythm GI normal to inspection, nondistended, normoactive bowel sounds Palpation: tender epigastric no CVA tenderness Back/Spine no CVA tenderness Extremity normal to inspection Skin no rashes or lesions noted Neuro no focal motor deficits and no sensory deficits noted Psych mental status grossly normal Results Lab / Micro Data 10/09/23 08:05 10/09/23 08:05 Labs: Laboratory Results - last 24 hr 10/09/23 08:05: WBC 7.7, RBC 4.29, Hgb 13.2, Hct 37.9, MCV 88.3, MCH 30.8, MCHC 34.8, RDW Std Deviation 43.0, RDW Coeff of Jenn 13.8, Plt Count 157, MPV 10.0, Immature Gran % (Auto) 0.800, Neut % (Auto) 83.9 H, Lymph % (Auto) 8.7 L, [place] % (Auto) 5.7, Eos % (Auto) 0.4, Baso % (Auto) 0.5, Absolute Neuts (auto) 6.5, Absolute Lymphs (auto) 0.67 L, Nucleated RBC % 0, Sodium 138, Potassium 4.0, Chloride 105, Carbon Dioxide 29.0, Anion Gap 4 L, BUN 13, Creatinine 0.86, Estim Creat Clear Calc 70.63, Est GFR (MDRD) Af Amer 86, Est GFR (MDRD) Non-Af 71, BUN/Creatinine Ratio 15.2, Glucose 125 H, Calcium 9.4, Total Bilirubin 3.00 H, Direct Bilirubin 1.91 H, AST 190 H, ALT 101 H, Alkaline Phosphatase 164 H, Troponin I High Sens 7, Total Protein 7.4, Albumin 3.8, Globulin 3.6, Lipase 39 Imagaing Radiology Impression Abdomen/Pelvis CT 10/09/23 07:13 IMPRESSION: Splenomegaly. Mildly distended gallbladder with no associated gallbladder wall thickening or pericholecystic fluid, consider right upper quadrant ultrasound for further evaluation. Electronically Signed: Whit Medina MD at 9:56 EST , Gallbladder Ultrasound 10/09/23 08:34 IMPRESSION: Sludge and gallstones within a mildly distended gallbladder with no associated pericholecystic fluid, gallbladder wall thickening nor reported positive sonographic Munson''s sign. Electronically Signed: Whit Medina MD at 10:18 EST , Assessment & Plan Assessment/Plan (1) Choledocholithiasis: PLAN: I am seeing this patient in conjunction with Dr. Ventura. He will independently evaluate this patient. Patient initially wanted to be transferred to [facility] where her cardiology team is located. ER contacted [facility] and there are no beds available and they are not accepting any new patient's at this time. This was discussed with patient and she is agreeable to proceed with admission here. Plan to admit patient and consult hospitalist for medical management and gastroenterology for evaluation for an ERCP. Patient has been started on Zosyn in the ED. Patient will need an ERCP with Dr. Waite. Lorena is currently being held. Plan for patient to be on tele. Patient will be placed NPO in anticipation that an ERCP may be completed today. If, not, patient may have full liquids and NPO after midnight. Dr. Ventura will discuss with the patient in regards to proceeding with a laparoscopic cholecystectomy with intraoperative cholangiogram during her hospitalization. Patient may decide to have this portion of her procedure completed elsewhere. If patient agreeable, we will plan to proceed following the ERCP when operating time permits. a has had the opportunity to ask and have questions answered. Patient verbally understands and agrees with the plan. Thank you for allowing us to participate in this patient's care. Charges/Coding Visit Charges Inpatient E&M: 77518 Init Hosp L2
[2023-10-09] MEDS: Piperacil/Tazobactam 4.5 GM in 0.9% Normal Saline (100mL MB+) 100 ML IV (13:12)
[2023-10-09] MEDS: 0.9% Normal Saline (1000mL) 1,000 ML 100 ML IV (16:21)
--- NOTE | 2023-10-09 16:30 | PN.HOSP_ITS ---
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 In the ED she had elevated bilirubin, alk phos, AST and ALT and CT abdomen pelvis with mildly distended gallbladder and right upper quadrant ultrasound with mildly distended gallbladder and gallstones with gall sludge. Surgery contacted in ED and plan to admit and requested medical consultation. Patient evaluated and gave history as above, since being in the ED she is feeling better with decreased abdominal pain. Denies fevers or chills, reports she has some chronic diarrhea with last episode at 5 AM but this is not different from baseline, occasionally will have dribbling of urine but no other urinary symptoms or complaints. No chest pain, no changes in breathing from baseline. Objective Data Objective Data Vital Signs: Vital Signs Temp Pulse Resp BP Pulse Ox O2 Del Method 98.6 F 87 16 129/59 H 94 Room Air 10/09/23 14:38 10/09/23 14:38 10/09/23 14:38 10/09/23 14:38 10/09/23 15:05 10/09/23 15:05 Oxygen Delivery Method Room Air Weight: 78.2 kg Body Mass Index (BMI) 28.7 Intake & Output: Intake and Output for Last 24 Hours 10/07/23 10/08/23 10/09/23 23:59 23:59 23:59 Intake Total 1100 / 1100 Balance 1100 / 1100 Lab / Micro Data 10/09/23 08:05 10/09/23 08:05 Labs: Laboratory Results - last 24 hr 10/09/23 08:05: WBC 7.7, RBC 4.29, Hgb 13.2, Hct 37.9, MCV 88.3, MCH 30.8, MCHC 34.8, RDW Std Deviation 43.0, RDW Coeff of Jenn 13.8, Plt Count 157, MPV 10.0, Immature Gran % (Auto) 0.800, Neut % (Auto) 83.9 H, Lymph % (Auto) 8.7 L, [place] % (Auto) 5.7, Eos % (Auto) 0.4, Baso % (Auto) 0.5, Absolute Neuts (auto) 6.5, Absolute Lymphs (auto) 0.67 L, Nucleated RBC % 0, Sodium 138, Potassium 4.0, Chloride 105, Carbon Dioxide 29.0, Anion Gap 4 L, BUN 13, Creatinine 0.86, Estim Creat Clear Calc 70.63, Est GFR (MDRD) Af Amer 86, Est GFR (MDRD) Non-Af 71, BUN/Creatinine Ratio 15.2, Glucose 125 H, Calcium 9.4, Total Bilirubin 3.00 H, Direct Bilirubin 1.91 H, AST 190 H, ALT 101 H, Alkaline Phosphatase 164 H, Trop onin I High Sens 7, Total Protein 7.4, Albumin 3.8, Globulin 3.6, Lipase 39 Radiography Diagnostic Testing: Radiology Impression Abdomen/Pelvis CT 10/09/23 07:13 IMPRESSION: Splenomegaly. Mildly distended gallbladder with no associated gallbladder wall thickening or pericholecystic fluid, consider right upper quadrant ultrasound for further evaluation. Electronically Signed: Whit Medina MD at 9:56 EST Reading Location ID and State: [facility] / [place] Tel , Service support , Gallbladder Ultrasound 10/09/23 08:34 IMPRESSION: Sludge and gallstones within a mildly distended gallbladder with no associated pericholecystic fluid, gallbladder wall thickening nor reported positive sonographic Munson''s sign. Electronically Signed: Whit Medina MD at 10:18 EST , Physical Exam Narrative General: Alert, oriented, no apparent distress HEENT: Atraumatic, normocephalic Eyes: Anicteric, normal conjunctiva, extraocular movements grossly intact Neck: Supple Respiratory: Clear to auscultation bilaterally, normal respiratory effort Cardiovascular: Regular rate and rhythm GI: Soft, mild tender to palpation epigastric region without rebound, guarding, rigidity Extremities: No edema Musculoskeletal: Moving all extremities Neuro: No overt focal neurological deficits Skin: No rashes appreciated Psych: Cooperative Assessment & Plan Assessment/Plan (1) Choledocholithiasis: (2) A-fib: (3) Sleep apnea: (4) Pulmonary HTN: (5) Cirrhosis: PLAN: Plan #Choledocholithiasis -Patient admitted by surgery service, being evaluated for cholecystectomy -GI also consulted for ERCP -Patient started on fluids and Zosyn -Holding Xarelto # History of A-fib/pulmonary hypertension/ASD fixed July 2022/maze procedure in April with subsequent pericarditis on colchicine and aspirin/?CHF -Patient with extensive history, follows at [place] -On Tikosyn for her A-fib, EKG with QTc of 460 and normal sinus rhythm and low voltage -Given patient is on Tikosyn will repeat EKG in the a.m. as well and will obtain mag -Hold Xarelto given pending surgery -Will check echo given her cardiac history, pulmonary hypertension, unclear CHF history -Would continue tadalafil if possible, can consider pulmonology consult if any problems/concerns however patient presently stable from a respiratory standpoint -Will need to monitor daily weights and I's and O's to monitor fluid status, patient takes bumetanide as needed at home, holding this as she is receiving IV fluids -Continue her colchicine for pericarditis # FARSHAD -Continue PAP therapy # 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 -Reportedly follows with a physician through [place] for this -Will check PT/INR #GERD -Continue PPI #DVT ppx: SCDs Lauren Brewer MD Time spent in the patient's overall evaluation,decision-making process, review of diagnostic data, adjustment of management, discussion with other providers, nursing nursing and ancillary staff involved in patient's care documentation, 45 minutes 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 Next of kin: [place] law dictates a PRIORITY LIST for identifying legal decision-maker/legal next of kin in the following order (LNOK): 1st: The patient?s legal guardian, if any 2nd: The patient's spouse (if status is questionable, consult Risk Management) 3rd: The patient?s adult child(alejandro) (majority, if multiple children) 4th: The patient?s parents 5th: The patient?s adult siblings (majority, if multiple children siblings) Charges/Coding Visit Charges Inpatient E&M: 26599 Subs Hosp L2
--- NOTE | 2023-10-09 18:49 | ECHOD_ITS ---
Reason For Study: CHF Procedure This was a 2D Doppler, Color Flow transthoracic echocardiogram. Exam performed portable in patient room. Left Ventricle Normal left ventricle. The estimated ejection fraction is 55-60 %. Right Ventricle Normal right ventricle. Normal systolic function. Atria Normal left atrium. Normal right atrium. Mitral Valve Mild (1+) eccentric mitral valve insufficiency. Tricuspid Valve Normal tricuspid valve. Mild (1+) tricuspid valve insufficiency. Aortic Valve Normal aortic valve. Pulmonic Valve The pulmonic valve is not well visualized. Great Vessels Normal aortic root. Pericardium/Pleural No pericardial effusion. MMode/2D Measurements & Calculations LVIDd: 3.8 cm IVSd: 1.0 cm Ao root diam: 2.8 cm LVIDs: 2.5 cm LVPWd: 0.93 cm RVDd: 3.5 cm FS: 34.8 % LAV(MOD-bp): 50.5 ml LVAd ap4: 29.1 cm2 SV(MOD-sp4): 62.1 ml LAV(MOD-bp) Indexed: 27.2 ml/m2 LVLd ap4: 7.5 cm LAV(MOD-sp2): 50.0 ml EDV(MOD-sp4): 91.8 ml LAV(MOD-sp4): 50.6 ml EDV(sp4-el): 96.2 ml LVAs ap4: 15.3 cm2 LVLs ap4: 6.6 cm ESV(MOD-sp4): 29.7 ml ESV(sp4-el): 30.0 ml EF(MOD-sp4): 67.6 % EF(sp4-el): 68.8 % SV(sp4-el): 66.2 ml LA A4 area: 19.4 cm2 LA dimension(2D): 3.9 cm RA A4 area: 20.4 cm2 Time Measurements MV dec time: 0.18 sec Doppler Measurements & Calculations MV E max luis angel: 132.5 cm/sec Lat Peak E' Luis Angel: 14.0 cm/sec Med Peak E' Luis Angel: 11.3 cm/sec MV A max luis angel: 54.1 cm/sec E/E' lat: 9.5 E/E' med: 11.7 MV E/A: 2.4 Ao V2 max: 125.1 cm/sec LV V1 max: 109.3 cm/sec PA V2 max: 85.0 cm/sec Ao max P.3 mmHg LV V1 max P.8 mmHg TR max luis angel: 328.6 cm/sec TR max P.2 mmHg ECHO/Echo Complete Interpretation Summary The estimated ejection fraction is 55-60 %. Thickness of the anterior mitral valve leaflet Color flow and Doppler showed mild mitral regurgitation Mild tricuspid gravitation No prior study to compare Ordering Physician: Lauren Brewer Performed By: Analy Mejia RDCS
--- NOTE | 2023-10-09 19:39 | CON.PCM.GI_ITS ---
HPI Consult Data Date of Consult: 10/09/23 HPI Narrative Reason for Consultation: Jaundice and cholestatic hepatitis HPI Narrative: YEU ANGULO, is a 63-year-old female with past medical history of atrial fibrillation on Xarelto as well as pulmonary hypertension, and sleep apnea. She states that last night around midnight she developed pain in the midepigastric region with mild nausea. She states as the night progressed the pain began to wrap around towards her sides and back and increased in severity. She states that with the increased pain she is concerned that this could be potential infection or even cardiac based on it occurring in the upper abdomen and therefore comes in for evaluation. She also apparently has a diagnosis of Abarca, and she was told in the past that she has possible cirrhosis. She has no history of a jaundice. She's never needed paracentesis. She was never told to take lactulose. She has no bleeding or bruising problems. She also has no family history of liver disease. S had an ultrasound of the right of a quadrant that showed dilated comb duct at 8 mm at the level of the [place] and small stones in the gallbladder. CT scan of the abdomen displays splenomegaly. [facility] Medical History (Updated 10/09/23 @ 18:[address] Lauren Brewer MD) A-fib Cirrhosis Pulmonary HTN Sleep apnea Home Medications rivaroxaban 20 mg tablet (Xarelto) 20 mg PO QPM BLOOD THINNER 03/14/22 [History Last Taken 10/08/23] acetaminophen 325 mg tablet 325 mg PO Q6H PRN PAIN 10/09/23 [History Last Taken Unknown] bumetanide 1 mg tablet 1 mg PO DAILY PRN EDEMA 10/09/23 [History Last Taken Unknown] buspirone 5 mg tablet 5 mg PO TID PRN ANXIETY 10/09/23 [History Last Taken Unknown] cholecalciferol (vitamin D3) 25 mcg (1,000 unit) tablet (Vitamin D3) 25 mcg PO DAILY SUPPLEMENT 10/09/23 [History Last Taken 10/08/23] colchicine 0.6 mg tablet 0.6 mg PO Q12H GOUT 10/09/23 [History Last Taken 10/08/23] cyanocobalamin (vitamin B-12) 1,000 mcg capsule 1,000 mcg PO DAILY SUPPLEMENT 10/09/23 [History Last Taken 10/08/23] dofetilide 500 mcg capsule (Tikosyn) 500 mcg PO BID AFIB 10/09/23 [History Last Taken 10/08/23] magnesium 250 mg tablet 250 mg PO BID SUPPLEMENT 10/09/23 [History Last Taken 10/08/23] metoprolol succinate 25 mg tablet,extended release 24 hr 12.5 mg PO QPM BLOOD PRESSURE 10/09/23 [History Last Taken 10/08/23] metoprolol succinate 25 mg tablet,extended release 24 hr 25 mg PO DAILY BLOOD PRESSURE 10/09/23 [History Last Taken 10/08/23] pantoprazole 40 mg tablet,delayed release 40 mg PO DAILY ACID REFLUX 10/09/23 [History Last Taken 10/08/23] potassium chloride 20 mEq tablet,extended release (K-Tab) 20 meq PO DAILY PRN SUPPLEMENT 10/09/23 [History Last Taken Unknown] tadalafil 20 mg tablet 20 mg PO BID LUNGS 10/09/23 [History Last Taken 10/08/23] Allergy/AdvReac Type Severity Reaction Status Date / Time codeine Allergy Other Verified 03/14/22 10:07 ibuprofen [From Motrin] Allergy Hives Verified 03/14/22 10:07 Iodinated Contrast Media [CT] Allergy Chest Verified 03/14/22 10:07 tightness morphine Allergy Hives Verified 03/14/22 10:07 phenytoin sodium Allergy Other Verified 03/14/22 10:07 [From Dilantin] phenytoin sodium extended Allergy Other Verified 03/14/22 10:07 [From Dilantin] sulfamethoxazole Allergy Hives Verified 03/14/22 10:07 [From Bactrim] trimethoprim [From Bactrim] Allergy Hives Verified 03/14/22 10:07 Surgical History History of bunionectomy Hx of maze procedure Hx of tonsillectomy Hx of tubal ligation Social History Smoking Status: Never smoker ROS Constitutional Constitutional: Reports systems reviewed and no addt'l complaints, except as documented Eyes Eyes: Reports systems reviewed and no addt'l complaints, except as documented ENT HEENT: Reports systems reviewed and no addt'l complaints, except as documented Cardiovascular Cardiovascular: Reports systems reviewed and no addt'l complaints, except as documented Respiratory/Chest Respiratory/Chest: Reports systems reviewed and no addt'l complaints, except as documented Gastrointestinal Gastrointestinal: Reports systems reviewed and no addt'l complaints, except as documented Genitourinary Genitourinary: Reports systems reviewed and no addt'l complaints, except as documented Musculoskeletal Musculoskeletal: Reports systems reviewed and no addt'l complaints, except as documented Integumentary Integumentary: Reports systems reviewed and no addt'l complaints, except as documented Neurologic Neurologic: Reports systems reviewed and no addt'l complaints, except as documented Psychiatric Psychiatric: Reports systems reviewed and no addt'l complaints, except as documented Endocrine Endocrinology: Reports systems reviewed and no addt'l complaints, except as documented Hematologic/Lymphatic Hematologic/Lymphatic: Reports systems reviewed and no addt'l complaints, except as documented Allergic/Immunologic Allergic/Immunologic: Reports systems reviewed and no addt'l complaints, except as documented Physical Exam Narrative General: Alert, oriented, no apparent distress HEENT: Atraumatic, normocephalic Eyes: Anicteric, normal conjunctiva, extraocular movements grossly intact Neck: Supple Respiratory: Clear to auscultation bilaterally, normal respiratory effort Cardiovascular: Regular rate and rhythm GI: Soft, mild tender to palpation epigastric region without rebound, guarding, rigidity Extremities: No edema Musculoskeletal: Moving all extremities Neuro: No overt focal neurological deficits Skin: No rashes appreciated Psych: Cooperative Lab / Micro Data 10/09/23 08:05 10/09/23 08:05 Labs: Laboratory Results - last 24 hr 10/09/23 08:05: WBC 7.7, RBC 4.29, Hgb 13.2, Hct 37.9, MCV 88.3, MCH 30.8, MCHC 34.8, RDW Std Deviation 43.0, RDW Coeff of Jenn 13.8, Plt Count 157, MPV 10.0, Immature Gran % (Auto) 0.800, Neut % (Auto) 83.9 H, Lymph % (Auto) 8.7 L, [place] % (Auto) 5.7, Eos % (Auto) 0.4, Baso % (Auto) 0.5, Absolute Neuts (auto) 6.5, Absolute Lymphs (auto) 0.67 L, Nucleated RBC % 0, Sodium 138, Potassium 4.0, Chloride 105, Carbon Dioxide 29.0, Anion Gap 4 L, BUN 13, Creatinine 0.86, Estim Creat Clear Calc 70.63, Est GFR (MDRD) Af Amer 86, Est GFR (MDRD) Non-Af 71, BU N/Creatinine Ratio 15.2, Glucose 125 H, Calcium 9.4, Total Bilirubin 3.00 H, Direct Bilirubin 1.91 H, AST 190 H, ALT 101 H, Alkaline Phosphatase 164 H, Troponin I High Sens 7, Total Protein 7.4, Albumin 3.8, Globulin 3.6, Lipase 39 Imagaing Radiology Impression Abdomen/Pelvis CT 10/09/23 07:13 IMPRESSION: Splenomegaly. Mildly distended gallbladder with no associated gallbladder wall thickening or pericholecystic fluid, consider right upper quadrant ultrasound for further evaluation. Electronically Signed: Whit Medina MD at 9:56 EST , Gallbladder Ultrasound 10/09/23 08:34 IMPRESSION: Sludge and gallstones within a mildly distended gallbladder with no associated pericholecystic fluid, gallbladder wall thickening nor reported positive sonographic Munson''s sign. 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 -Reportedly follows with a physician through [place] for this -Will check PT/INR, to calculate her MELD #GERD -Continue PPI #DVT ppx: LINWOODs Lauren Brewer MD Time spent in the patient's overall evaluation,decision-making process, review of diagnostic data, adjustment of management, discussion with other providers, nursing nursing and ancillary staff involved in patient's care documentation, 45 minutes Capacity Legal Supervisor Shaving And Splitting Reflex Medical hold order details:: IF a medical hold is selected below, a suggested order for a MEDICAL HOLD will reflex upon signing the document. Next of kin: [place] law dictates a PRIORITY LIST for identifying legal decision-maker/legal n ext of kin in the following order (LNOK): 1st: The patient?s legal guardian, if any 2nd: The patient's spouse (if status is questionable, consult Risk Management) 3rd: The patient?s adult child(alejandro) (majority, if multiple children) 4th: The patient?s parents 5th: The patient?s adult siblings (majority, if multiple children siblings)
--- NOTE | 2023-10-09 21:01 | CPS ---
[2024] Pt. states that she does wear CPAP at home for sleep apnea. Pt. was asked if she'd like for us to provide her with a machine for the night, but pt. politely refused at this time. Pt. states that she's comfortable wearing 2L NC at night time for now.
[2023-10-09] MEDS: Piperacil/Tazobactam 3.375 GM in 0.9% Normal Saline (50mL MB+) 50 ML IV (21:47)
[2023-10-09] MEDS: Colchicine 0.6 MG TABLET 0.599999999999999978 MG PO (21:51)
[2023-10-10] VITALS (18 sets, daily range): BP systolic 95–130; BP diastolic 47–80; PULSE 57–82; RESP 16–18; TEMP 36.2–37.2; O2SAT 93–99
[2023-10-10] MEDS: 0.9% Normal Saline (1000mL) 1,000 ML 100 ML IV (02:26)
[2023-10-10 04:21] LABS: Absolute Lymphocyte Count 0.88 X10^3/uL (0.83-4.51); Absolute Neutrophil Count 5.7 X10^3/uL (2.0-7.7); Basophil# 0.02 X10^3/uL; Basophil% 0.3 % (0-1); Hematocrit 34.1 % (37-47); Hemoglobin 11.7 g/dL (12.0-15.0); Lymphocyte # 0.88 X10^3/ul (0.83-4.51); Lymphocyte % 12.3 % (19-41); Mean Corp Hgb Conc 34.3 g/dL (32-36); Mean Corpuscular Hgb 30.3 pg (27.0-32.0); Mean Corpuscular Volume 88.3 fL (81-99); Monocyte# 0.47 X10^3/uL; Monocyte% 6.6 % (0-10); NRBC Flagged by Analyzer 0 % (0-5); Neutrophil # 5.74 X10^3/uL (2.7-7.7); Neutrophil % 80.1 % (47-70); Platelet Count 146 K/mm3 (150-450); RBC Distribution Width CV 13.7 % (11.6-14.6); RBC Distribution Width SD 43.4 fl (35.1-43.9); Red Blood Count 3.86 M/mm3 (4.2-5.4); White Blood Count 7.2 K/mm3 (4.4-11.0)
[2023-10-10 04:28] LABS: International Normalized Ratio 1.3; Prothrombin Time (Protime)PT. 16.2 SECONDS (11.7-14.9)
[2023-10-10 04:29] LABS: Partial Thromboplast Time 31.1 Seconds (24.1-36.2)
[2023-10-10 04:39] LABS: ALB/GLOB Ratio 1.1 RATIO (0.9-2.4); AST(SGOT) 121 U/L (15-37); Alanine Aminotransfer ALT/SGPT 139 U/L (13-56); Albumin, Serum 3.2 g/dL (3.2-5.0); Alkaline Phosphatase 139 U/L (45-117); Anion Gap 4 (5-15); BUN 12 mg/dL (7-18); Calcium,Total 8.5 mg/dL (8.5-10.1); Chloride 114 mmol/L (98-107); Creatinine, Serum 0.75 mg/dL (0.55-1.02); EST Glomerular Filtration Rate 83 mL/min (>60); Est Glom Filt Rate - Afr Amer 101 mL/min (>60); Estimated Creatinine Clearance 80.39 ml/min; Globulin 2.9 g/dL (2.2-4.2); Glucose 106 mg/dL (74-106); Potassium 3.5 mmol/L (3.5-5.1); Protein, Total 6.1 g/dL (6.4-8.2); Sodium Level 144 mmol/L (136-145)
[2023-10-10 04:40] LABS: Phosphorus 4.2 mg/dL (2.5-4.9)
[2023-10-10] MEDS: Piperacil/Tazobactam 3.375 GM in 0.9% Normal Saline (50mL MB+) 50 ML IV ×3 (05:20→21:53)
--- NOTE | 2023-10-10 05:55 | EKG12_ITS ---
Test Reason : PRE-OP Blood Pressure : / mmHG Vent. Rate : 072 BPM Atrial Rate : 072 BPM P-R Int : 190 ms QRS Dur : 072 ms QT Int : 406 ms P-R-T Axes : 080 066 038 degrees QTc Int : 444 ms Normal sinus rhythm Possible Left atrial enlargement Low voltage QRS Borderline ECG When compared with ECG of 09-OCT-2023 06:48, MANUAL COMPARISON REQUIRED, DATA IS UNCONFIRMED Confirmed by RODY CURRAN, KHADAR ([id number]), video news editor ROBIN ROLAND ([id number]) on 10/11/2023 10:42:00 AM Referred By: JILLIAN Confirmed By:KHADAR FINE MD
--- NOTE | 2023-10-10 07:56 | PN.SURG_ITS ---
Subjective Subjective Patient evaluated resting comfortably in bed. She notes pain is much improved. She is comfortable proceeding with an ERCP followed by a nely stephie with liver biopsy. Objective Data Objective Data Vital Signs: Vital Signs Temp Pulse Resp BP Pulse Ox O2 Del Method O2 Flow Rate 98 F 77 16 111/48 L 99 Room Air 2 10/10/23 05:00 10/10/23 05:00 10/10/23 05:00 10/10/23 05:00 10/10/23 05:00 10/10/23 05:00 10/09/23 20:25 Oxygen Flow Rate (L/min) 2 Oxygen Delivery Method Room Air Weight: 172 lb 6.424 oz Body Mass Index (BMI) 28.7 Intake & Output: Intake and Output for Last 24 Hours 10/08/23 10/09/23 10/10/23 23:59 23:59 23:59 Intake Total 1220 / 1220 1050 / 1050 Balance 1220 / 1220 1050 / 1050 Lab / Micro Data 10/10/23 04:08 10/10/23 04:08 Labs: Laboratory Results - last 24 hr 10/09/23 08:05: WBC 7.7, RBC 4.29, Hgb 13.2, Hct 37.9, MCV 88.3, MCH 30.8, MCHC 34.8, RDW Std Deviation 43.0, RDW Coeff of Jenn 13.8, Plt Count 157, MPV 10.0, Immature Gran % (Auto) 0.800, Neut % (Auto) 83.9 H, Lymph % (Auto) 8.7 L, [place] % (Auto) 5.7, Eos % (Auto) 0.4, Baso % (Auto) 0.5, Absolute Neuts (auto) 6.5, Absolute Lymphs (auto) 0.67 L, Nucleated RBC % 0, Sodium 138, Potassium 4.0, Chloride 105, Carbon Dioxide 29.0, Anion Gap 4 L, BUN 13, Creatinine 0.86, Estim Creat Clear Calc 70.63, Est GFR (MDRD) Af Amer 86, Est GFR (MDRD) Non-Af 71, BUN/Creatinine Ratio 15.2, Glucose 125 H, Calcium 9.4, Total Bilirubin 3.00 H, Direct Bilirubin 1.91 H, AST 190 H, ALT 101 H, Alkaline Phosphatase 164 H, Troponin I High Sens 7, Total Protein 7.4, Albumin 3.8, Globulin 3.6, Lipase 39 10/10/23 04:08: WBC 7.2, RBC 3.86 L, Hgb 11.7 L, Hct 34.1 L, MCV 88.3, MCH 30.3, MCHC 34.3, RDW Std Deviation 43.4, RDW Coeff of Jenn 13.7, Plt Count 146 L, MPV 10.0, Immature Gran % (Auto) 0.700, Neut % (Auto) 80.1 H, Lymph % (Auto) 12.3 L, [place] % (Auto) 6.6, Eos % (Auto) 0.0, Baso % (Auto) 0.3, Absolute Neuts (auto) 5.7, Absolute Lymphs (auto) 0.88, Nucleated RBC % 0, PT 16.2 H, INR 1.3, APTT 31.1, Sodium 144, Potassium 3.5, Chloride 114 H, Carbon Dioxide 26.0, Anion Gap 4 L, BUN 12, Creatinine 0.75, Estim Creat Clear Calc 80.39, Est GFR (MDRD) Af Amer 101, Est GFR (MDRD) Non-Af 83, BUN/Creatinine Ratio 16.0, Glucose 106, Calcium 8.5, Phosphorus 4.2, Magnesium 2.0, Total Bilirubin 1.40 H, AST 121 H, ALT 139 H, Alkaline Phosphatase 139 H, Total Protein 6.1 L, Albumin 3.2, Globulin 2.9, Albumin/Globulin Ratio 1.1 Radiography Diagnostic Testing: Radiology Impression Abdomen/Pelvis CT 10/09/23 07:13 IMPRESSION: Splenomegaly. Mildly distended gallbladder with no associated gallbladder wall thickening or pericholecystic fluid, consider right upper quadrant ultrasound for further evaluation. Electronically Signed: Whit Medina MD at 9:56 EST , Gallbladder Ultrasound 10/09/23 08:34 IMPRESSION: Sludge and gallstones within a mildly distended gallbladder with no associated pericholecystic fluid, gallbladder wall thickening nor reported positive sonographic Munson''s sign. Electronically Signed: Whit Medina MD at 10:18 EST , Assessment & Plan Assessment/Plan (1) Choledocholithiasis: PLAN: I have evaluated this patient in conjunction with Dr. Audrey Dumont. Ravindra will plan to perform an ERCP today Dr. Ventura will plan to perform a lap stephie with IOC and liver biopsy Patient may have clear liquids following the ERCP today up until midnight Continue IV antibiotics Continue to hold Xarelto We will continue to monitor this patient Capacity Legal Hot Metal Car Operator Reflex Medical hold order details:: IF a medical hold is selected below, a suggested order for a MEDICAL HOLD will reflex upon signing the document. Next of kin: [place] law dictates a PRIORITY LIST for identifying legal decision-maker/legal next of kin in the following order (LNOK): 1st: The patient?s legal guardian, if any 2nd: The patient's spouse (if status is questionable, consult Risk Management) 3rd: The patient?s adult child(alejandro) (majority, if multiple children) 4th: The patient?s parents 5th: The patient?s adult siblings (majority, if multiple children siblings) Charges/Coding Visit Charges Inpatient E&M: 51570 Subs Hosp L1
[2023-10-10] MEDS: 0.9% Normal Saline (1000mL) 1,000 ML 15 ML IV (08:35)
--- NOTE | 2023-10-10 09:15 | RAD_ITS ---
EXAM: ERCP CLINICAL INDICATION: Choledocholithiasis TECHNIQUE: Fluoroscopic images performed in multiple projections. Fluoroscopic guidance was provided by a physician. No radiologist was present. The radiation dose is 28.35 mGy. 1. 16 fluoroscopic images were obtained. COMPARISON: No relevant prior studies available. FINDINGS: Endoscopy and cannulation were carried out by the referring physician. The common bile duct is cannulated. Small filling defect is seen in distal common bile duct which could be due to air bubble or retained stone. Otherwise no definite constant filling defect is seen. RAD/ERCP Biliary/Pancreas IMPRESSION: ERCP as described above. Electronically Signed: Babar Burk MD at 11:12 EST ,
[2023-10-10] MEDS: LACTATED RINGERS 500 ML 999 ML IV (10:20)
--- NOTE | 2023-10-10 10:29 | OP.CCLET_ITS ---
10/10/2023 Lorie Re : ERCP procedure for Dorcas Melo This procedure was performed on September. My impressions and recommendations are as follows: Impressions : - The entire main bile duct was mildly dilated, acquired. - Choledocholithiasis was found. Complete removal was accomplished by biliary sphincterotomy and balloon extraction. - A biliary sphincterotomy was performed. - The biliary tree was swept. - One temporary stent was placed into the common bile duct. Recommendations : My findings are described in the full procedure note, which is enclosed. If I can be of further assistance, please feel free to contact me at . Sincerely, Roberto Carlos Waite, 10/10/2023 10:28:32 AM This report has been signed electronically.
--- NOTE | 2023-10-10 10:29 | OP.ERCP_ITS ---
Patient Name: Dorcas Walker Procedure Date: 10/10/2023 9:37 AM Date of : 1960 Age: 63 Procedure: ERCP Indications: Bile duct stone(s), Abdominal pain of suspected biliary origin, Biliary dilation on Ultrasound, Jaundice, Elevated liver enzymes Providers: Roberto Carlos Waite DO Medicines: Monitored Anesthesia Care Patient Profile: This is a 63 year old female. Refer to note in patient chart for documentation of history and physical. Patient has symptoms of acute right upper quadrant abdominal pain and acute jaundice. This patient has no history of previous ERCP. This patient has no history of surgical alteration of the upper digestive tract anatomy. Complications: No immediate complications. Procedure: Pre-Anesthesia Assessment: - Prior to the procedure, a History and Physical was performed, and patient medications and allergies were reviewed. The patient is competent. The risks and benefits of the procedure and the sedation options and risks were discussed with the patient. All questions were answered and informed consent was obtained. Patient identification and proposed procedure were verified by the physician in the pre-procedure area. Mental Status Examination: alert and oriented. Airway Examination: normal oropharyngeal airway and neck mobility. Respiratory Examination: clear to auscultation. CV Examination: normal. Prophylactic Antibiotics: The patient does not require prophylactic antibiotics. Prior Anticoagulants: The patient has taken no anticoagulant or antiplatelet agents. ASA Grade Assessment: III - A patient with severe systemic disease. After reviewing the risks and benefits, the patient was deemed in satisfactory condition to undergo the procedure. The anesthesia plan was to use monitored anesthesia care (MAC). Immediately prior to administration of medications, the patient was re-assessed for adequacy to receive sedatives. The heart rate, respiratory rate, oxygen saturations, blood pressure, adequacy of pulmonary ventilation, and response to care were monitored throughout the procedure. The physical status of the patient was re-assessed after the procedure. After obtaining informed consent, the scope was passed under direct vision. Throughout the procedure, the patient's blood pressure, pulse, and oxygen saturations were monitored continuously. The Duodenoscope was introduced through the mouth, and advanced to the duodenum and used to inject contrast into the bile duct. The ERCP was accomplished without difficulty. The patient tolerated the procedure well. Scope In: 10:03:51 AM Scope Out: 10:20:53 AM Total Procedure Duration Time 0 hours 17 minutes 2 seconds Findings: The hvac sheet metal installer film was normal. The esophagus was successfully intubated under direct vision. The scope was advanced to a normal major papilla in the descending duodenum without detailed examination of the pharynx, larynx and associated structures, and upper GI tract. The upper GI tract was grossly normal. The bile duct was deeply cannulated with the short-nosed traction sphincterotome. Contrast was injected. I personally interpreted the bile duct images. There was brisk flow of contrast through the ducts. Image quality was excellent. Contrast extended to the entire biliary tree. Opacification of the entire biliary tree except for the gallbladder and main bile duct was successful. The maximum diameter of the ducts was 7 mm. The main bile duct contained one stone, which was 4 mm in diameter. The entire biliary tree except for the gallbladder and main bile duct were mildly dilated and locally dilated, acquired. The largest diameter was 7 mm. A straight Roadrunner wire was passed into the biliary tree. A 5 mm biliary sphincterotomy was made with a traction (standard) sphincterotome using ERBE electrocautery. There was no post-sphincterotomy bleeding. The biliary tree was swept with a 12 mm balloon starting at the bifurcation. Sludge was swept from the duct. All stones were removed. One 10 Fr by 5 cm temporary stent was placed 5 cm into the common bile duct. Bile flowed through the stent. The stent was in good position. Impression: - The entire main bile duct was mildly dilated, acquired. - Choledocholithiasis was found. Complete removal was accomplished by biliary sphincterotomy and balloon extraction. - A biliary sphincterotomy was performed. - The biliary tree was swept. - One temporary stent was placed into the common bile duct. Procedure Code(s): --- Professional --- 82543, Endoscopic retrograde cholangiopancreatography (ERCP); with placement of endoscopic stent into biliary or pancreatic duct, including pre- and post-dilation and guide wire passage, when performed, including sphincterotomy, when performed, each stent [id number], Endoscopic retrograde cholangiopancreatography (ERCP); with removal of calculi/debris from biliary/pancreatic duct(s) 09103, 26, Endoscopic catheterization of the biliary ductal system, radiological supervision and interpretation CPT copyright 2021 [employer]. All rights reserved. The codes documented in this report are preliminary and upon certified medical coder review may be revised to meet current compliance requirements. Roberto Carlos Waite DO 10/10/2023 10:28:32 AM This report has been signed electronically. Number of Addenda: 0 Note Initiated On: 10/10/2023 9:37 AM
[2023-10-10] MEDS: Lactated Ringers 1,000 ML 200 ML IV (10:49)
--- NOTE | 2023-10-10 13:17 | CASEMGMT ---
KWAN ARTEAGA Assessment: Face to Face with pt for initial transition planning/care coordination assessment. KWAN ARTEAGA introduced self and role at [facility], pt voices understanding and consents to assessment. Pt is A&O x4 and answers all questions appropriately at this time. Pt sitting up in bed eating soup in no distress. Care providers, pharmacy, and demographics verified/updated. Admitting Dx:abd pain; cholelithiasis PCP:Aashish Specialists:Pt goes to the [facility]. She cannot recall name of provider. Pt sees K[facility] cardio; [facility] cardio and another cardio in [place]. Preferred Pharmacy:[facility] Insurance:[employer], [employer] per report Prescription Benefit: yes LNOK:Tanna Walker, dtr; Jayesh Walker, son Living Arrangements: Pt lives since April with son, dil and grandson in a split level home with 6 steps to enter. Pt reports she is I in ADL's and denies concerns at home. Pt states she is and her has outbursts so her cardio thought it would be good for her to live in a calmer home than her own. Transportation: Pt drives self and denies concerns with transportation. DME:CPAP HHC/SNF:Pt reports she had HHC come out 1x but they had to get insurance authorization for more visits and by time this was obtained, she didn't need HHC any longer. Denies SNF stays. Pt states no concerns with going home at time of dc. Pt states no further concerns/needs. CM to follow. Advised pt to ask CM if any further question/concerns/needs arise, voices understanding. Pt Goal:Home with son Plan:Home with son
[2023-10-10] MEDS: Morphine 2 MG/ML Syringe IV ×3 (13:43→20:18)
[2023-10-10] MEDS: DiphenhydrAMINE 50 MG/ML Syringe 25 MG IV ×2 (13:43→20:18)
[2023-10-10] MEDS: 0.9% Saline Lock 10 ML Syringe IV ×2 (13:43→17:13)
--- NOTE | 2023-10-10 14:10 | PN.HOSP_ITS ---
Reason for Visit Reason for Visit: Diagnoses Sleep apnea, unspecified (10/09/23) Pulmonary hypertension, unspecified (10/09/23) Unspecified atrial fibrillation (10/09/23) Unspecified cirrhosis of liver (10/09/23) Calculus of bile duct without cholangitis or cholecystitis without obstruction (10/09/23) Subjective Subjective Patient evaluated after ERCP, was having some epigastric pain after getting up to go to the bathroom and was just laying back down in bed. No radiation of pain at this time, not vomiting, no other changes in bowel movements. Objective Data Objective Data Vital Signs: Vital Signs Temp Pulse Resp BP Pulse Ox O2 Del Method O2 Flow Rate 98.4 F 75 18 130/55 H 97 Room Air 2 10/10/23 13:47 10/10/23 13:47 10/10/23 13:47 10/10/23 13:47 10/10/23 13:47 10/10/23 13:47 10/09/23 20:25 Oxygen Flow Rate (L/min) 2 Oxygen Delivery Method Room Air Weight: 78.2 kg Body Mass Index (BMI) 28.7 Intake & Output: Intake and Output for Last 24 Hours 10/08/23 10/09/23 10/10/23 23:59 23:59 23:59 Intake Total 1220 / 1220 1789.67 / 1789.67 Balance 1220 / 1220 1789.67 / 1789.67 Lab / Micro Data 10/10/23 04:08 10/10/23 04:08 Labs: Laboratory Results - last 24 hr 10/10/23 04:08: WBC 7.2, RBC 3.86 L, Hgb 11.7 L, Hct 34.1 L, MCV 88.3, MCH 30.3, MCHC 34.3, RDW Std Deviation 43.4, RDW Coeff of Jenn 13.7, Plt Count 146 L, MPV 10.0, Immature Gran % (Auto) 0.700, Neut % (Auto) 80.1 H, Lymph % (Auto) 12.3 L, [place] % (Auto) 6.6, Eos % (Auto) 0.0, Baso % (Auto) 0.3, Absolute Neuts (auto) 5.7, Absolute Lymphs (auto) 0.88, Nucleated RBC % 0, PT 16.2 H, INR 1.3, APTT 31.1, Sodium 144, Potassium 3.5, Chloride 114 H, Carbon Dioxide 26.0, Anion Gap 4 L, BUN 12, Creatinine 0.75, Estim Creat Clear Calc 80.39, Est GFR (MDRD) Af Amer 101, Est GFR (MDRD) Non-Af 83, BUN/Creatinine Ratio 16.0, Glucose 106, Calcium 8.5, Phosphorus 4.2, Magnesium 2.0, Total Bilirubin 1.40 H, AST 121 H, ALT 139 H, Alkaline Phosphatase 139 H, Total Protein 6.1 L, Albumin 3.2, Globulin 2.9, Albumin/Globulin Ratio 1.1 Radiography Diagnostic Testing: Radiology Impression Endo Retro Cholangiopancreatogram 10/10/23 09:15 IMPRESSION: ERCP as described above. Electronically Signed: Babar Burk MD at 11:12 EST , Physical Exam Narrative General: Alert, oriented, patient presently having abdominal pain HEENT: Atraumatic, normocephalic Eyes: Anicteric, normal conjunctiva, extraocular movements grossly intact Neck: Supple Respiratory: Clear to auscultation bilaterally, normal respiratory effort Cardiovascular: Regular rate and rhythm GI: Soft, nondistended, some pain in epigastric region Extremities: No edema Musculoskeletal: Moving all extremities Neuro: No overt focal neurological deficits Skin: No rashes appreciated Psych: Cooperative Assessment & Plan Assessment/Plan (1) Choledocholithiasis: (2) A-fib: (3) Sleep apnea: (4) Pulmonary HTN: (5) Cirrhosis: PLAN: Plan #Choledocholithiasis -Patient admitted by surgery service, being evaluated for cholecystectomy -GI also consulted for ERCP -Patient started on fluids and Zosyn -Holding Xarelto -10/10: Patient's status post ERCP with entire main bile duct dilated and choledocholithiasis found, patient with biliary sphincterotomy and balloon extraction, temporary stent placed. Patient for cholecystectomy tomorrow. Her NSQIP risk calculation is above average with a risk of serious complications 2.6% and any complication 3.0%, this risk is still relatively low overall. # History of A-fib/pulmonary hypertension/ASD fixed July 2022/maze procedure in April with subsequent pericarditis on colchicine and aspirin/?CHF -Patient with extensive history, follows at [facility] -On Tikosyn for her A-fib, EKG with QTc of 460 and normal sinus rhythm and low voltage -Given patient is on Tikosyn will repeat EKG in the a.m. as well and will obtain mag -Hold Xarelto given pending surgery -Will check echo given her cardiac history, pulmonary hypertension, unclear CHF history -Would continue tadalafil if possible, can consider pulmonology consult if any problems/concerns however patient presently stable from a respiratory standpoint -Will need to monitor daily weights and I's and O's to monitor fluid status, patient takes bumetanide as needed at home, holding this as she is receiving IV fluids -Continue her colchicine for pericarditis -10/10: Echocardiogram with EF 55 to 60%, mild mitral regurg, mild tricuspid gravitation # FARSHAD -Continue PAP therapy # Cirrhosis secondary to [place] -Reportedly follows with a physician through [facility] for this -Will check PT/INR -10/10: Can continue to follow-up with her outpatient physician #GERD -Continue PPI #DVT ppx: SCDs Lauren Brewer MD Time spent in the patient's overall evaluation,decision-making process, review of diagnostic data, adjustment of management, discussion with other providers, nursing nursing and ancillary staff involved in patient's care documentation, 35 minutes Capacity Legal Polysomnographic Technologist Reflex Medical hold order details:: IF a medical hold is selected below, a suggested order for a MEDICAL HOLD will reflex upon signing the document. Next of kin: [place] law dictates a PRIORITY LIST for identifying legal decision-maker/legal ne xt of kin in the following order (LNOK): 1st: The patient?s legal guardian, if any 2nd: The patient's spouse (if status is questionable, consult Risk Management) 3rd: The patient?s adult child(alejandro) (majority, if multiple children) 4th: The patient?s parents 5th: The patient?s adult siblings (majority, if multiple children siblings) Charges/Coding Visit Charges Inpatient E&M: 70948 Subs Hosp L2
[2023-10-10] MEDS: 0.9% Normal Saline (1000mL) 1,000 ML 200 ML IV ×3 (14:25→23:49)
[2023-10-10] MEDS: Acetaminophen 325 MG Tablet 650 MG PO (16:07)
[2023-10-10] MEDS: Colchicine 0.6 MG TABLET 0.599999999999999978 MG PO (20:22)
[2023-10-10] MEDS: Dofetilide 250 MCG Capsule 500 MCG PO (20:22)
[2023-10-11] VITALS (19 sets, daily range): BP systolic 103–149; BP diastolic 49–79; PULSE 52–82; RESP 16; TEMP 36.1–37.2; O2SAT 92–99; BMI 28.7
[2023-10-11] MEDS: Morphine 2 MG/ML Syringe IV ×2 (00:33→20:47)
[2023-10-11] MEDS: 0.9% Normal Saline (1000mL) 1,000 ML 200 ML IV (05:20)
[2023-10-11] MEDS: Piperacil/Tazobactam 3.375 GM in 0.9% Normal Saline (50mL MB+) 50 ML IV ×2 (05:21→14:00)
[2023-10-11 05:28] LABS: Absolute Lymphocyte Count 1.11 X10^3/uL (0.83-4.51); Absolute Neutrophil Count 5.6 X10^3/uL (2.0-7.7); Basophil# 0.02 X10^3/uL; Basophil% 0.3 % (0-1); Eosinophil# 0.01 X10^3/uL; Eosinophils% 0.1 % (0-5); Hematocrit 32.1 % (37-47); Hemoglobin 10.7 g/dL (12.0-15.0); Lymphocyte # 1.11 X10^3/ul (0.83-4.51); Lymphocyte % 15.5 % (19-41); Mean Corp Hgb Conc 33.3 g/dL (32-36); Mean Corpuscular Hgb 29.8 pg (27.0-32.0); Mean Corpuscular Volume 89.4 fL (81-99); Mean Platelet Vol. 10.6 fl (6.2-12.0); Monocyte% 5.6 % (0-10); NRBC Flagged by Analyzer 0 % (0-5); Neutrophil # 5.57 X10^3/uL (2.7-7.7); Neutrophil % 77.5 % (47-70); Platelet Count 135 K/mm3 (150-450); RBC Distribution Width CV 13.9 % (11.6-14.6); RBC Distribution Width SD 45.2 fl (35.1-43.9); Red Blood Count 3.59 M/mm3 (4.2-5.4); White Blood Count 7.2 K/mm3 (4.4-11.0)
[2023-10-11 05:38] LABS: International Normalized Ratio 1.2; Prothrombin Time (Protime)PT. 15.3 SECONDS (11.7-14.9)
[2023-10-11 05:39] LABS: Partial Thromboplast Time 29.7 Seconds (24.1-36.2)
[2023-10-11 05:56] LABS: AST(SGOT) 48 U/L (15-37); Alanine Aminotransfer ALT/SGPT 92 U/L (13-56); Albumin, Serum 2.8 g/dL (3.2-5.0); Alkaline Phosphatase 112 U/L (45-117); Anion Gap 4 (5-15); BUN 11 mg/dL (7-18); BUN/Creat Ratio 15.4 RATIO (10-20); Calcium,Total 8.1 mg/dL (8.5-10.1); Chloride 116 mmol/L (98-107); Creatinine, Serum 0.71 mg/dL (0.55-1.02); EST Glomerular Filtration Rate 88 mL/min (>60); Est Glom Filt Rate - Afr Amer 107 mL/min (>60); Estimated Creatinine Clearance 84.92 ml/min; Globulin 2.8 g/dL (2.2-4.2); Glucose 105 mg/dL (74-106); Magnesium 1.8 mg/dL (1.6-2.6); Potassium 3.6 mmol/L (3.5-5.1); Protein, Total 5.6 g/dL (6.4-8.2); Sodium Level 145 mmol/L (136-145)
[2023-10-11 07:40] LABS: Phosphorus 3.2 mg/dL (2.5-4.9)
--- NOTE | 2023-10-11 07:47 | PN.HOSP_ITS ---
Reason for Visit Reason for Visit: Diagnoses Sleep apnea, unspecified (10/09/23) Pulmonary hypertension, unspecified (10/09/23) Unspecified atrial fibrillation (10/09/23) Unspecified cirrhosis of liver (10/09/23) Calculus of bile duct without cholangitis or cholecystitis without obstruction (10/09/23) Subjective Subjective Patient continued to have intermittent pain overnight especially when she got up to go to the bathroom that would improve with pain medication, not having the pain at present but anxious the pain might not go away even after surgery, overall feeling better however Objective Data Objective Data Vital Signs: Vital Signs Temp Pulse Resp BP Pulse Ox O2 Del Method O2 Flow Rate 98 F 55 L 16 149/79 H 95 CPAP 2 10/11/23 05:25 10/11/23 05:25 10/11/23 05:25 10/11/23 05:25 10/11/23 05:25 10/11/23 05:25 10/09/23 20:25 Oxygen Flow Rate (L/min) 2 Oxygen Delivery Method CPAP Weight: 78.2 kg Body Mass Index (BMI) 28.7 Intake & Output: Intake and Output for Last 24 Hours 10/09/23 10/10/23 10/11/23 23:59 23:59 23:59 Intake Total 1220 / 1220 4376.34 / 4376.34 1050 / 1050 Balance 1220 / 1220 4376.34 / 4376.34 1050 / 1050 Lab / Micro Data 10/11/23 05:05 10/11/23 05:05 Labs: Laboratory Results - last 24 hr 10/11/23 05:05: WBC 7.2, RBC 3.59 L, Hgb 10.7 L, Hct 32.1 L, MCV 89.4, MCH 29.8, MCHC 33.3, RDW Std Deviation 45.2 H, RDW Coeff of Jenn 13.9, Plt Count 135 L, MPV 10.6, Immature Gran % (Auto) 1.000 H, Neut % (Auto) 77.5 H, Lymph % (Auto) 15.5 L, [place] % (Auto) 5.6, Eos % (Auto) 0.1, Baso % (Auto) 0.3, Absolute Neuts (auto) 5.6, Absolute Lymphs (auto) 1.11, Nucleated RBC % 0, PT 15.3 H, INR 1.2, APTT 2 9.7, Sodium 145, Potassium 3.6, Chloride 116 H, Carbon Dioxide 25.0, Anion Gap 4 L, BUN 11, Creatinine 0.71, Estim Creat Clear Calc 84.92, Est GFR (MDRD) Af Amer 107, Est GFR (MDRD) Non-Af 88, BUN/Creatinine Ratio 15.4, Glucose 105, Calcium 8 .1 L, Phosphorus 3.2, Magnesium 1.8, Total Bilirubin 0.90, AST 48 H, ALT 92 H, Alkaline Phosphatase 112, Total Protein 5.6 L, Albumin 2.8 L, Globulin 2.8, Albumin/Globulin Ratio 1.0 Radiography Diagnostic Testing: Radiology Impression Echocardiogram 10/09/23 18:49 Interpretation Summary The estimated ejection fraction is 55-60 %. Thickness of the anterior mitral valve leaflet Color flow and Doppler showed mild mitral regurgitation Mild tricuspid gravitation No prior study to compare Ordering Physician: Lauren Brewer Performed By: Analy Mejia [facility] Endo Retro Cholangiopancreatogram 10/10/23 09:15 IMPRESSION: ERCP as described above. Electronically Signed: Babar Burk MD at 11:12 EST , Physical Exam Narrative General: Alert, oriented, no apparent distress HEENT: Atraumatic, normocephalic Eyes: Anicteric, normal conjunctiva, extraocular movements grossly intact Neck: Supple Respiratory: Clear to auscultation bilaterally, normal respiratory effort Cardiovascular: Regular rate and rhythm GI: Soft, mild tender to palpation epigastric region without rebound, guarding, rigidity Extremities: No edema Musculoskeletal: Moving all extremities Neuro: No overt focal neurological deficits Skin: No rashes appreciated Psych: Cooperative Assessment & Plan Assessment/Plan (1) Choledocholithiasis: (2) A-fib: (3) Sleep apnea: (4) Pulmonary HTN: (5) Cirrhosis: PLAN: Plan #Choledocholithiasis -Patient admitted by surgery service, being evaluated for cholecystectomy -GI also consulted for ERCP -Patient started on fluids and Zosyn -Holding Xarelto -10/10: Patient's status post ERCP with entire main bile duct dilated and c holedocholithiasis found, patient with biliary sphincterotomy and balloon extraction, temporary stent placed. Patient for cholecystectomy tomorrow. Her NSQIP risk calculation is above average with a risk of serious complications 2.6% and any complication 3.0%, this risk is still relatively low overall. -10/11: Patient with cholecystectomy today # History of A-fib/pulmonary hypertension/ASD fixed July 2022/maze procedure in April with subsequent pericarditis on colchicine and aspirin/?CHF -Patient with extensive history, follows at [facility] -On Tikosyn for her A-fib, EKG with QTc of 460 and normal sinus rhythm and low voltage -Given patient is on Tikosyn will repeat EKG in the a.m. as well and will obtain mag -Hold Xarelto given pending surgery -Will check echo given her cardiac history, pulmonary hypertension, unclear CHF history -Would continue tadalafil if possible, can consider pulmonology consult if any problems/concerns however patient presently stable from a respiratory standpoint -Will need to monitor daily weights and I's and O's to monitor fluid status, patient takes bumetanide as needed at home, holding this as she is receiving IV fluids -Continue her colchicine for pericarditis -10/10: Echocardiogram with EF 55 to 60%, mild mitral regurg, mild tricuspid regurgitation -10/11: Continue to hold Xarelto, continue other medications # FARSHAD -Continue PAP therapy # Cirrhosis secondary to [place] -Reportedly follows with a physician through [facility] for this -Will check PT/INR -10/10: Can continue to follow-up with her outpatient physician #GERD -Continue PPI #DVT ppx: SCDs Lauren Brewer MD Time spent in the patient's overall evaluation,decision-making process, review of diagnostic data, adjustment of management, discussion with other providers, nursing nursing and ancillary staff involved in patient's care documentation, 35 minutes Capacity Legal Occupational Health Rn Reflex Medical hold order details:: IF a medical hold is selected below, a suggested order for a MEDICAL HOLD will reflex upon signing the document. Next of kin: [place] law dictates a PRIORITY LIST for identifying legal decision-maker/legal next of kin in the following order (LNOK): 1st: The patient?s legal guardian, if any 2nd: The patient's spouse (if status is questionable, consult Risk Management) 3rd: The patient?s adult child(alejandro) (majority, if multiple children) 4th: The patient?s parents 5th: The patient?s adult siblings (majority, if multiple children siblings) Charges/Coding Visit Charges Inpatient E&M: 34349 Subs Hosp L2
--- NOTE | 2023-10-11 12:20 | NURSING ---
pt to or via bed
--- NOTE | 2023-10-11 13:30 | LIVB_PTH ---
PATHOLOGY RESULTS PATIENT: YUE ANGULO LOC: MS3 U#:[id number] AGE/SX: 63/F ROOM: [facility] RE10/09/[address]: Dr. Jamar Ventura MD : 1960 BED: 1 DIS: 10/12/2023 SPEC #: [id number] RECD: 10/11/23 18:12 STATUS: MARQUISE REQ #: [id number] KAIA: 10/11/23 13:[address]: Jamar Ventura DEPT: SURGICAL PATHOLOGY RECD BY: Corazon Velazco ENTERED: 10/14/23 09:33 SP TYPE: LIVER BX OTHR DR: Dr. Lauren Brewer MD Tissues: Gallbladder, NOS Liver, NOS Procedures: PAS with Diastase (control) Trichrome (control) Special Stain Group II PAS Stain (control) Surgery Specimen Level III Surgery Specimen Level V Retic (control) Iron Stain (control) HEADER OPERATION: Laparoscopic cholecystectomy with IOC, TruCut liver biopsy PRE-OP DIAGNOSIS: Choledocholithiasis TISSUE SUBMITTED: A - Gallbladder, B - Liver biopsy MICROSCOPIC DIAGNOSIS A. Gallbladder, cholecystectomy: Chronic cholecystitis and cholelithiasis. B. Liver, core biopsy: Liver parenchymal tissue with focal minimal macrovesicular steatosis and minimal portal chronic inflammation. See microscopic description and comment. SJ:talon 10/15/2023 COMMENT Correlation with clinical, radiologic findings, laboratory findings and appropriate follow up are necessary. MICROSCOPIC DESCRIPTION Slides are reviewed. The specimen shows liver parenchymal tissue with preserved lobular architecture. Hepatocytes show focal minimal macrovesicular steatosis. Significant lobular inflammation is not seen. Portal area shows focal minimal chronic inflammation predominantly consisting of lymphocytes. Interface inflammation is not seen. Iron stain shows absent iron. Reticulin stain highlights the preserved lobular architecture. Trichrome stain does not show any significant increased portal or periportal fibrosis. PAS stain with and without diastase does not show any abnormal accumulation of protein. All stains are performed with appropriate matched controls. GROSS DESCRIPTION A - Received is one container labeled with the patient's name and designated gallbladder. The specimen consists of a gallbladder measuring 7.5 cm in length and up to 3.5 cm in diameter. The external surface is pink-[place], smooth and glistening for the most part. Focally it is granular, hemorrhagic and contains cautery artifact. The gallbladder contains green-yellow mucoid bile and multiple brown-black stones measuring in aggregate 2.0 x 1.5 x 0.3 cm and 0.1 to 0.2 cm in greatest dimension. The mucosa is bile-stained and without any mass lesions. The gallbladder wall measures 0.2 cm in thickness. Fence Rider sections from the gallbladder and the cystic duct are submitted in one cassette. B - Received in fixative is one container labeled with the patient's name and designated liver biopsy. The specimen consists of an elongated piece of [place] soft tissue measuring 1.5 cm in length and 0.1 cm in diameter. The entire specimen is submitted in one cassette. / SJ:rg 10/14/2023 TC:3 CPT: 19332, 29301, 05131 x5
--- NOTE | 2023-10-11 13:45 | RAD_ITS ---
EXAM: FL CHOLANGIOGRAPHY AND/OR PANCREATOGRAPHY CLINICAL INDICATION: TECHNIQUE: Fluoroscopic cine images obtained at the time of laparoscopic cholecystectomy. Contrast injected via the cystic duct. COMPARISON: No relevant prior studies available. FINDINGS: Normal-appearing biliary tree. An endobiliary stent catheter is in place. Question of small filling defects within the common bile duct near the cystic duct insertion. There is visualization of the duodenum. See operative note for additional information. Total fluoroscopy time of 17 seconds. Total dose of 6.24 mGy. RAD/Cholangiogram/ O R,Initial IMPRESSION: As above. Electronically Signed: Dino Ramos MD at 16:33 EST ,
[2023-10-11] MEDS: Bupivacaine 0.25% 30 ML Vial (14:05)
--- NOTE | 2023-10-11 15:25 | OP.PCM_ITS ---
Report of Operation Date of Procedure: 10/11/23 Pre-Operative Diagnosis: Choledocholithiasis Post-Operative Diagnosis: Choledocholithiasis with acute cholecystitis Surgery/Procedure Performed:: 1. Laparoscopic cholecystectomy with intraoperative cholangiogram 2. Liver biopsy Description of Surgical Findings:: ? Morphologically normal?appearing liver ? Evidence of acute cholecystitis with adhesions to the gallbladder infundibulum and neck Surgeon: Jamar Ventura mapping engineer: Julio Islas Type of Anesthesia: General/Supplemental Anesthesiologist: Nirav Franklin Specimen's removed: 1. Gallbladder 2. Liver biopsy Estimated Blood Loss (mL): 30 Description of Procedure: After proper identification in the preoperative holding area the patient was brought to the operating room where she was positioned supine on the operating room table. Preoperatively SCDs were placed and antibiotics were administered. General anesthesia was then induced. Patient's abdomen was prepped and draped in usual sterile fashion. A formal timeout was conducted to confirm both patient and the procedure. Procedure was begun with a supraumbilical incision which was extended deeply down to the level of the fascia. The fascia was elevated and incised, as well as the peritoneum. A finger sweep was performed to ensure there were no underlying adhesions and a 12 mm balloon trocar was inserted. Pneumoperitoneum was established at 15 mmHg. 3 additional trocars were placed in the epigastrium and in the right upper quadrant (3 x 5 mm). Inspection of the peritoneum revealed no inadvertent injury to the viscera below. The gallbladder was visualized with a mild degree of inflammation. The gallbladder fundus was then grasped and elevated cephalad. Then, using careful dissection the peritoneum was opened and the structures of the hepatocystic tria ngle were delineated. Once the critical view of safety was obtained, the cystic duct was singly clipped and partially divided with a ductotomy. The proximal duct was milked of any debris until there was backflow of bile. Using an Das Katya clamp, a cholangiocatheter was fed into the proximal segment of the cystic duct and clamped into place. Under fluoroscopy a cholangiogram was then obtained showing a standard length cystic duct flowing into a common bile duct with unobstructed antegrade flow of contrast into the duodenum via a common bile duct stent. There was also retrograde flow through the common hepatic duct into the right and left hepatic ducts. Satisfied with this result, the cholangiocatheter was withdrawn and the proximal cystic duct was sealed with clips and the cystic duct was completely transected. The same process was used for the cystic artery. The gallbladder was then removed from the gallbladder fossa with the use of electrocautery. Selective electrocautery was used to obtain hemostasis in the gallbladder fossa. The gallbladder was placed in an Endo Catch bag and removed from the peritoneum. Morison's pouch was irrigated and the effluent was suctioned free of the peritoneum. I then transitioned to the liver biopsy portion of the case and used a Emanuel-Cut needle via a minute incision in the right upper quadrant to obtain a core biopsy of segment 4A of the liver. Selective electrocautery was used to obtain hemostasis over this biopsy site. After confirming hemostasis at this site, hemostasis was again confirmed in the gallbladder fossa. Pneum operitoneum was evacuated and the fascia of the 12 mm port site was closed with #1Vicryl in a [id number] fashion. A total of 30 mL of anesthetic was injected at the port sites for postoperative pain control. The skin of each port site was then closed in subcuticular fashion using 4-0 Monocryl. Steri- Strips and bandages were applied as dressings. Patient tolerated the procedure well without any apparent complications. On emergence from their anesthetic the patient was taken to PACU for ongoing recovery. Complications None Admit VTE Documentation VTE Present on Admission: No VTE Mechan Device Prophylaxis: SCD's Procedures Digestive [id number]: Other Procedure See Notes (Please code for lap stephie with IOC as well as liver biopsy)
--- NOTE | 2023-10-11 19:03 | DCINST_ITS ---
Discharge Instructions Diet Discharge Diet: No restrictions Activity Discharge Activity: May Not Drive (No driving while using narcotic pain medication) and May Shower (Postoperative day 1) May shower in (days): 1 Ice area for (Minutes): 20 Lifting Restrictions: No lifting greater than 15 pounds for 2 weeks after surgery Dressing / Incision Call your doctor if your incision/area has: Continuous Slow Oozing, Increased Pain/ Swelling, Increased Redness, Foul Smelling Discharge and Swelling at the incision site Call your doctor if you observe: Fever of 101 or Higher Remove Dressing in: 1 day (Please leave Steri-Strips intact until they fall off spontaneously or are taken off at your follow-up visit) Cleanse incision/area with: Soap & Water Follow Up Care Please Follow Up With: Jamar Ventura MD When: 7-10days postop Test Results: Test results from this visit will be discussed in further detail at your follow- up appointment, if applicable. Discharge Plan Admission Admit Date/Time: 10/09/23 13:08 Primary Reason for Your Visit: choledocholithiasis Attending Provider: Jamar Ventura Primary Care Provider: MAR MOORE Consulting Providers: Lauren Brewer Discharge Orders/Prescriptions Prescriptions: New tramadol 50 mg tablet 50 mg PO Q6H PRN (Reason: pain) Qty: 14 0RF Continued cyanocobalamin (vitamin B-12) 1,000 mcg capsule 1,000 mcg PO DAILY colchicine 0.6 mg tablet 0.6 mg PO Q12H dofetilide [Tikosyn] 500 mcg capsule 500 mcg PO BID tadalafil 20 mg tablet 20 mg PO BID pantoprazole 40 mg tablet,delayed release (DR/EC) 40 mg PO DAILY metoprolol succinate 25 mg tablet extended release 24 hr 25 mg PO DAILY metoprolol succinate 25 mg tablet extended release 24 hr 12.5 mg PO QPM magnesium 250 mg tablet 250 mg PO BID cholecalciferol (vitamin D3) [Vitamin D3] 25 mcg (1,000 unit) tablet 25 mcg PO DAILY bumetanide 1 mg tablet 1 mg PO DAILY PRN (Reason: EDEMA ) potassium chloride [K-Tab] 20 mEq tablet extended release 20 meq PO DAILY PRN (Reason: SUPPLEMENT ) Patient Comments: PT STATES THEY TAKE ONE POTASSIUM CHLORIDE 20MEQ ONCE DAILY ONLY IF THEY TAKE A DOSE OF BUMETANIDE ( OF 10-09-22) Rx Instructions: TAKE ONE TABLET BY MOUTH ONCE DAILY ONLY IF BUMETANIDE IS TAKEN buspirone 5 mg tablet 5 mg PO TID PRN (Reason: ANXIETY ) acetaminophen 325 mg tablet 325 mg PO Q6H PRN (Reason: PAIN ) Held Xarelto 20 mg Tablet 20 mg PO QPM Hold Instructions: restart Saturday 10/14- PM Rx Instructions: TAKE ONE TABLET BY MOUTH ONCE DAILY. MUST ADMINISTER WITH MEAL. Referrals / Follow Up: MAR MOORE [Other] MAR MOORE [Other] Disposition Disposition (needs filled in before D/C Order can be placed): Home, Self Care
[2023-10-11] MEDS: Pantoprazole Sodium 40 MG Tablet PO (20:11)
[2023-10-11] MEDS: 0.9% Normal Saline (1000mL) 1,000 ML 25 ML IV (20:41)
[2023-10-11] MEDS: Dofetilide 250 MCG Capsule 500 MCG PO (20:59)
[2023-10-11] MEDS: Colchicine 0.6 MG TABLET 0.599999999999999978 MG PO (21:04)
[2023-10-12] VITALS (7 sets, daily range): BP systolic 102–142; BP diastolic 44–66; PULSE 52–72; RESP 16; TEMP 36.6–36.9; O2SAT 94–98; BMI 28.7
[2023-10-12] MEDS: traMADol 50 MG Tablet PO (00:34)
--- NOTE | 2023-10-12 03:50 | RAD_ITS ---
EXAM: XR CHEST, 1 VIEW CLINICAL INDICATION: crackles TECHNIQUE: Frontal view of the chest. COMPARISON: March 14, 2022. FINDINGS: LUNGS AND PLEURAL SPACES: Mild streaky linear bands of minimal atelectasis in the lung bases adjacent to the hemidiaphragms and suspected small band of scarring in the left lateral lower lung field. No significant blunting of the lateral costophrenic angles. No pneumothorax. No effusion. HEART: There is a new atrial appendage occlusion type clip over the left heart compared to prior exam. The transverse cardiac diameter is significantly smaller and now normal in size. MEDIASTINUM: Central airways and mediastinal contour are unremarkable. BONES/JOINTS: Unremarkable. No acute fracture. SOFT TISSUES: Unremarkable. RAD/Chest 1 View (Portable) IMPRESSION: 1. Improved and normal heart size and new left atrial appendage clip compared to March 14, 2022. 2. Mild streaky bibasilar linear opacities, new from prior exam. Considerations include atelectasis, scarring, early infiltrate. Electronically Signed: Darcy Gong MD at 6:52 EST ,
[2023-10-12 04:31] LABS: Absolute Lymphocyte Count 0.81 X10^3/uL (0.83-4.51); Absolute Neutrophil Count 7.4 X10^3/uL (2.0-7.7); Basophil# 0.04 X10^3/uL; Basophil% 0.4 % (0-1); Eosinophils% 3.3 % (0-5); Hematocrit 32.7 % (37-47); Hemoglobin 11.5 g/dL (12.0-15.0); Lymphocyte # 0.81 X10^3/ul (0.83-4.51); Lymphocyte % 8.8 % (19-41); Mean Corp Hgb Conc 35.2 g/dL (32-36); Mean Corpuscular Hgb 31.3 pg (27.0-32.0); Mean Corpuscular Volume 89.1 fL (81-99); Mean Platelet Vol. 11.3 fl (6.2-12.0); Monocyte# 0.49 X10^3/uL; Monocyte% 5.3 % (0-10); NRBC Flagged by Analyzer 0 % (0-5); Neutrophil # 7.36 X10^3/uL (2.7-7.7); Neutrophil % 79.8 % (47-70); Platelet Count 129 K/mm3 (150-450); RBC Distribution Width CV 13.7 % (11.6-14.6); RBC Distribution Width SD 43.6 fl (35.1-43.9); Red Blood Count 3.67 M/mm3 (4.2-5.4); White Blood Count 9.2 K/mm3 (4.4-11.0)
[2023-10-12 04:48] LABS: AST(SGOT) 37 U/L (15-37); Alanine Aminotransfer ALT/SGPT 73 U/L (13-56); Albumin, Serum 2.9 g/dL (3.2-5.0); Alkaline Phosphatase 108 U/L (45-117); Anion Gap 7 (5-15); BUN 10 mg/dL (7-18); BUN/Creat Ratio 13.5 RATIO (10-20); Calcium,Total 8.3 mg/dL (8.5-10.1); Chloride 112 mmol/L (98-107); Creatinine, Serum 0.74 mg/dL (0.55-1.02); EST Glomerular Filtration Rate 85 mL/min (>60); Est Glom Filt Rate - Afr Amer 102 mL/min (>60); Estimated Creatinine Clearance 81.48 ml/min; Globulin 2.9 g/dL (2.2-4.2); Glucose 97 mg/dL (74-106); Potassium 3.5 mmol/L (3.5-5.1); Protein, Total 5.8 g/dL (6.4-8.2); Sodium Level 144 mmol/L (136-145)
[2023-10-12] MEDS: Furosemide 40 MG/4 ML Vial IV (06:29)
[2023-10-12] MEDS: Acetaminophen 325 MG Tablet 650 MG PO (06:42)
--- NOTE | 2023-10-12 06:57 | PN.HOSP_ITS ---
Reason for Visit Reason for Visit: Diagnoses Sleep apnea, unspecified (10/09/23) Pulmonary hypertension, unspecified (10/09/23) Unspecified atrial fibrillation (10/09/23) Unspecified cirrhosis of liver (10/09/23) Calculus of bile duct without cholangitis or cholecystitis without obstruction (10/09/23) Subjective Subjective Patient received a dose of Lasix this morning due to concern she was somewhat overloaded, stop oxygen and doing well at time of my exam, tolerating food, pain improving Objective Data Objective Data Vital Signs: Vital Signs Temp Pulse Resp BP Pulse Ox O2 Del Method O2 Flow Rate 97.9 F 67 16 137/59 H 97 Nasal Cannula 3 10/12/23 06:38 10/12/23 06:38 10/12/23 06:38 10/12/23 06:38 10/12/23 06:38 10/12/23 06:38 10/12/23 06:38 Oxygen Flow Rate (L/min) 3 Oxygen Delivery Method Nasal Cannula Weight: 78.2 kg Body Mass Index (BMI) 28.7 Intake & Output: Intake and Output for Last 24 Hours 10/10/23 10/11/23 10/12/23 23:59 23:59 23:59 Intake Total 4376.34 / 4376.34 2150 / 2150 Output Total 400 / 400 Balance 4376.34 / 4376.34 2149 / 0 -400 / -400 Lab / Micro Data 10/12/23 04:00 10/12/23 04:00 Labs: Laboratory Results - last 24 hr 10/11/23 05:05: Phosphorus 3.2 10/12/23 04:00: WBC 9.2, RBC 3.67 L, Hgb 11.5 L, Hct 32.7 L, MCV 89.1, MCH 31.3, MCHC 35.2 D, RDW Std Deviation 43.6, RDW Coeff of Jenn 13.7, Plt Count 129 L, MPV 11.3, Immature Gran % (Auto) 2.400 H, Neut % (Auto) 79.8 H, Lymph % (Auto) 8.8 L, [place] % (Auto) 5.3, Eos % (Auto) 3.3, Baso % (Auto) 0.4, Absolute Neuts (auto) 7.4, Absolute Lymphs (auto) 0.81 L, Nucleated RBC % 0, Sodium 144, Potassium 3.5, Chloride 112 H, Carbon Dioxide 25.0, Anion Gap 7, BUN 10, Creatinine 0.74, Estim Creat Clear Calc 81.48, Est GFR (MDRD) Af Amer 102, Est GFR (MDRD) Non-Af 85, BUN/Creatinine Ratio 13.5, Glucose 97, Calcium 8.3 L, Total Bilirubin 1.20 H, AST 37, ALT 73 H, Alkaline Phosphatase 108, B- Natriuretic Peptide 564.0 H, Total Protein 5.8 L, Albumin 2.9 L, Globulin 2.9, Albumin/Globulin Ratio 1.0 Radiography Diagnostic Testing: Radiology Impression Cholangiogram 10/11/23 13:45 IMPRESSION: As above. Electronically Signed: Dino Ramos MD at 16:33 EST Reading Location ID and State: [facility] / [place] Tel , Service support , Chest X-Ray 10/12/23 03:50 IMPRESSION: 1. Improved and normal heart size and new left atrial appendage clip compared to March 14, 2022. 2. Mild streaky bibasilar linear opacities, new from prior exam. Considerations include atelectasis, scarring, early infiltrate. Electronically Signed: Darcy Gong MD at 6:52 EST , Physical Exam Narrative General: Alert, oriented, no apparent distress HEENT: Atraumatic, normocephalic Eyes: Anicteric, normal conjunctiva, extraocular movements grossly intact Neck: Supple Respiratory: Clear to auscultation bilaterally, normal respiratory effort Cardiovascular: Regular rate and rhythm GI: Soft, tenderness improving, guarding, rigidity Extremities: No edema Musculoskeletal: Moving all extremities Neuro: No overt focal neurological deficits Skin: No rashes appreciated Psych: Cooperative Assessment & Plan Assessment/Plan (1) Choledocholithiasis: (2) A-fib: (3) Sleep apnea: (4) Pulmonary HTN: (5) Cirrhosis: PLAN: Plan #Choledocholithiasis with acute cholecystitis -Patient admitted by surgery service, being evaluated for cholecystectomy -GI also consulted for ERCP -Patient started on fluids and Zosyn -Holding Xarelto -10/10: Patient's status post ERCP with entire main bile duct dilated and choledocholithiasis found, patient with biliary sphincterotomy and balloon extraction, temporary stent placed. Patient for cholecystectomy tomorrow. Her NSQIP risk calculation is above average with a risk of serious complications 2.6% and any complication 3.0%, this risk is still relatively low overall. -10/11: Patient with cholecystectomy today -10/12: Status postcholecystectomy, doing well this a.m., plan is for discharge home # History of A-fib/pulmonary hypertension/ASD fixed July 2022/maze procedure in April with subsequent pericarditis on colchicine and aspirin/?CHF -Patient with extensive history, follows at [facility] -On Tikosyn for her A-fib, EKG with QTc of 460 and normal sinus rhythm and low voltage -Given patient is on Tikosyn will repeat EKG in the a.m. as well and will obtain mag -Hold Xarelto given pending surgery -Will check echo given her cardiac history, pulmonary hypertension, unclear CHF history -Would continue tadalafil if possible, can consider pulmonology consult if any problems/concerns however patient presently stable from a respiratory standpoint -Will need to monitor daily weights and I's and O's to monitor fluid status, patient takes bumetanide as needed at home, holding this as she is receiving IV fluids -Continue her colchicine for pericarditis -10/10: Echocardiogram with EF 55 to 60%, mild mitral regurg, mild tricuspid regurgitation -10/11: Continue to hold Xarelto, continue other medications -10/12: Change metoprolol from IV back to p.o., additionally patient has been receiving IV fluids and this a.m. was somewhat overloaded as evidenced on chest x-ray and BNP, takes as needed diuretics at home, given dose of IV Lasix, hold further IV fluids, echo was unremarkable but patient does have known pulmonary hypertension, mobilize patient as tolerated, at time of exam patient is off O2 and doing well, can resume her as needed Bumex at home # FARSHAD -Continue PAP therapy # Cirrhosis secondary to [place] -Reportedly follows with a physician through [facility] for this -Will check PT/INR -10/10: Can continue to follow-up with her outpatient physician #GERD -Continue PPI #DVT ppx: SCDs Lauren Brewer MD Time spent in the patient's overall evaluation,decision-making process, review of diagnostic data, adjustment of management, discussion with other providers, nursing nursing and ancillary staff involved in patient's care documentation, 35 minutes Charges/Coding Visit Charges Inpatient E&M: 14296 Subs Hosp L2
--- NOTE | 2023-10-12 08:07 | PN.SURG_ITS ---
Subjective Subjective Patient tolerating clears, pain controlled, 2 L nasal cannula Objective Data Objective Data Vital Signs: Vital Signs Temp Pulse Resp BP Pulse Ox O2 Del Method O2 Flow Rate 97.9 F 67 16 137/59 H 97 Nasal Cannula 3 10/12/23 06:38 10/12/23 06:38 10/12/23 06:38 10/12/23 06:38 10/12/23 06:38 10/12/23 06:38 10/12/23 06:38 Oxygen Flow Rate (L/min) 3 Oxygen Delivery Method Nasal Cannula Weight: 172 lb 6.424 oz Body Mass Index (BMI) 28.7 Intake & Output: Intake and Output for Last 24 Hours 10/10/23 10/11/23 10/12/23 23:59 23:59 23:59 Intake Total 4376.34 / 4376.34 2150 / 2150 Output Total 400 / 400 Balance 4376.34 / 4376.34 2150 / 2150 -400 / -400 Lab / Micro Data 10/12/23 04:00 10/12/23 04:00 Labs: Laboratory Results - last 24 hr 10/12/23 04:00: WBC 9.2, RBC 3.67 L, Hgb 11.5 L, Hct 32.7 L, MCV 89.1, MCH 31.3, MCHC 35.2 D, RDW Std Deviation 43.6, RDW Coeff of Jenn 13.7, Plt Count 129 L, MPV 11.3, Immature Gran % (Auto) 2.400 H, Neut % (Auto) 79.8 H, Lymph % (Auto) 8.8 L, [place] % (Auto) 5.3, Eos % (Auto) 3.3, Baso % (Auto) 0.4, Absolute Neuts (auto) 7.4, Absolute Lymphs (auto) 0.81 L, Nucleated RBC % 0, Sodium 144, Potassium 3.5, Chloride 112 H, Carbon Dioxide 25.0, Anion Gap 7, BUN 10, Creatinine 0.74, Estim Creat Clear Calc 81.48, Est GFR (MDRD) Af Amer 102, Est GFR (MDRD) Non-Af 85, BUN/Creatinine Ratio 13.5, Glucose 97, Calcium 8.3 L, Total Bilirubin 1.20 H, AST 37, ALT 73 H, Alkaline Phosphatase 108, B- Natriuretic Peptide 564.0 H, Total Protein 5.8 L, Albumin 2.9 L, Globulin 2.9, Albumin/Globulin Ratio 1.0 Radiography Diagnostic Testing: Radiology Impression Cholangiogram 10/11/23 13:45 IMPRESSION: As above. Electronically Signed: Dino Ramos MD at 16:33 EST , Chest X-Ray 10/12/23 03:50 IMPRESSION: 1. Improved and normal heart size and new left atrial appendage clip compared to March 14, 2022. 2. Mild streaky bibasilar linear opacities, new from prior exam. Considerations include atelectasis, scarring, early infiltrate. Electronically Signed: Darcy Gong MD at 6:52 EST , Physical Exam Resp normal respiratory effort Resp Narrative: On 2 L nasal cannula Cardio regular rate GI GI Narrative: Abdomen: Soft, nondistended, tender near incision's dressed clean dry and intact, no peritoneal signs Assessment & Plan Assessment/Plan (1) S/P laparoscopic cholecystectomy: (2) S/P ERCP: (3) A-fib: PLAN: Plan Okay for regular diet. Patient currently on 2 L nasal cannula will try to wean?patient did get Lasix 40 this morning likely due to increased IV fluids which have been stopped--appreciate medicine's assistance Continue pain control Will wait 48 hours from surgery to restart Xarelto?Saturday neelam Terrell M.D. Pager: [phone] [facility] [address] [place] [address], [facility], [address] [place] [id number] Office: [phone]
[2023-10-12] MEDS: Pantoprazole Sodium 40 MG Tablet PO (09:01)
[2023-10-12] MEDS: Dofetilide 250 MCG Capsule 500 MCG PO (09:01)
[2023-10-12] MEDS: Colchicine 0.6 MG TABLET 0.599999999999999978 MG PO (09:02)
--- NOTE | 2023-10-12 09:23 | DCINST_ITS ---
Discharge Instructions Diet Discharge Diet: No restrictions Activity Discharge Activity: May Not Drive (while taking narcotic pain medications.) May shower in (days): 1 Ice area for (Minutes): 20 Lifting Restrictions: no lifting >20 lbs x 2 wks, no strenuous exercise for 4 wks Dressing / Incision Call your doctor if your incision/area has: Continuous Slow Oozing, Increased Pain/ Swelling, Increased Redness, Foul Smelling Discharge and Swelling at the incision site Call your doctor if you observe: Fever of 101 or Higher Remove Dressing in: 2 days Cleanse incision/area with: Soap & Water Additional Dressing/Incision Instructions:: Steri-Strips will fall off in 7 to 10 days, if they do not fall off okay to remove after 10 days. Follow Up Care Please Follow Up With: Jamar Ventura MD When: Call the office for a follow-up appointment 2 weeks; after 5 PM and on the weekends call [phone] with any concerns. Test Results: Test results from this visit will be discussed in further detail at your follow- up appointment, if applicable. Discharge Plan Admission Admit Date/Time: 10/09/23 13:08 Primary Reason for Your Visit: choledocholithiasis Attending Provider: Jamar Ventura Primary Care Provider: MAR MOORE Consulting Providers: Lauren Brewer Discharge Orders/Prescriptions Prescriptions: New tramadol 50 mg tablet 50 mg PO Q6H PRN (Reason: pain) Qty: 14 0RF Continued cyanocobalamin (vitamin B-12) 1,000 mcg capsule 1,000 mcg PO DAILY colchicine 0.6 mg tablet 0.6 mg PO Q12H dofetilide [Tikosyn] 500 mcg capsule 500 mcg PO BID tadalafil 20 mg tablet 20 mg PO BID pantoprazole 40 mg tablet,delayed release (DR/EC) 40 mg PO DAILY metoprolol succinate 25 mg tablet extended release 24 hr 25 mg PO DAILY metoprolol succinate 25 mg tablet extended release 24 hr 12.5 mg PO QPM magnesium 250 mg tablet 250 mg PO BID cholecalciferol (vitamin D3) [Vitamin D3] 25 mcg (1,000 unit) tablet 25 mcg PO DAILY bumetanide 1 mg tablet 1 mg PO DAILY PRN (Reason: EDEMA ) potassium chloride [K-Tab] 20 mEq tablet extended release 20 meq PO DAILY PRN (Reason: SUPPLEMENT ) Patient Comments: PT STATES THEY TAKE ONE POTASSIUM CHLORIDE 20MEQ ONCE DAILY ONLY IF THEY TAKE A DOSE OF BUMETANIDE ( OF 10-09-22) Rx Instructions: TAKE ONE TABLET BY MOUTH ONCE DAILY ONLY IF BUMETANIDE IS TAKEN buspirone 5 mg tablet 5 mg PO TID PRN (Reason: ANXIETY ) acetaminophen 325 mg tablet 325 mg PO Q6H PRN (Reason: PAIN ) Held Xarelto 20 mg Tablet 20 mg PO QPM Hold Instructions: restart Saturday 10/14- PM Rx Instructions: TAKE ONE TABLET BY MOUTH ONCE DAILY. MUST ADMINISTER WITH MEAL. Referrals / Follow Up: MAR MOORE [Other] MAR MOORE [Other] Disposition Disposition (needs filled in before D/C Order can be placed): Home, Self Care
--- NOTE | 2023-10-12 09:27 | DS.PCM_ITS ---
Providers Date of Admission: 10/09/23 Primary Care Physician: MAR MOORE Consultations 10/09/23 14:17 Consult: Gastroenterology Routine Consulting Provider: Sandra Gastroenterology Reason for Consult: Choledocholithiasis EMERGENT Consult: No Notified: Yes Date Notified: 10/09/23 Time Notified: 13:19 Method of Notification: Text Consult: Hospitalist Routine Consulting Provider: Lauren Brewer Reason for Consult: Medical management EMERGENT Consult: No Notified: Yes Date Notified: 10/09/23 Time Notified: 13:18 Method of Notification: Verbal Reason For Visit: ABDOMINAL PAIN, CHOLELITHIASIS Diagnosis Discharge Diagnosis (1) S/P laparoscopic cholecystectomy: Status: Acute Code(s): Z90.49 - Acquired absence of other specified parts of digestive tract (2) S/P ERCP: Status: Acute Code(s): Z98.890 - Other specified postprocedural states (3) A-fib: Status: Acute Code(s): I48.91 - Unspecified atrial fibrillation Plan Okay for regular diet. Patient currently on 2 L nasal cannula will try to wean?patient did get Lasix 40 this morning likely due to increased IV fluids which have been stopped--appreciate medicine's assistance Continue pain control Will wait 48 hours from surgery to restart Xarelto?Saturday neelam Terrell M.D. Pager: [phone] [facility] [address] [place] [address], [address] [place] [id number] Office: [phone] Medications at Discharge Home Medications rivaroxaban 20 mg tablet (Xarelto) 20 mg PO QPM BLOOD THINNER 03/14/22 acetaminophen 325 mg tablet 325 mg PO Q6H PRN PAIN 10/09/23 bumetanide 1 mg tablet 1 mg PO DAILY PRN EDEMA 10/09/23 buspirone 5 mg tablet 5 mg PO TID PRN ANXIETY 10/09/23 cholecalciferol (vitamin D3) 25 mcg (1,000 unit) tablet (Vitamin D3) 25 mcg PO DAILY SUPPLEMENT 10/09/23 colchicine 0.6 mg tablet 0.6 mg PO Q12H GOUT 10/09/23 cyanocobalamin (vitamin B-12) 1,000 mcg capsule 1,000 mcg PO DAILY SUPPLEMENT 10/09/23 dofetilide 500 mcg capsule (Tikosyn) 500 mcg PO BID AFIB 10/09/23 magnesium 250 mg tablet 250 mg PO BID SUPPLEMENT 10/09/23 metoprolol succinate 25 mg tablet,extended release 24 hr 12.5 mg PO QPM BLOOD PRESSURE 10/09/23 metoprolol succinate 25 mg tablet,extended release 24 hr 25 mg PO DAILY BLOOD PRESSURE 10/09/23 pantoprazole 40 mg tablet,delayed release 40 mg PO DAILY ACID REFLUX 10/09/23 potassium chloride 20 mEq tablet,extended release (K-Tab) 20 meq PO DAILY PRN SUPPLEMENT 10/09/23 tadalafil 20 mg tablet 20 mg PO BID LUNGS 10/09/23 tramadol 50 mg tablet 50 mg PO Q6H PRN pain #14 tabs 10/12/23 Hospital Course Operations cholecystecomy and ERCP Summary of Care Provided Minutes Spent on Discharge: 15 Hospital Course: 61-year-old female presents to the ER due to epigastric right upper quadrant pain. Patient was found to have choledocholithiasis and cholecystitis. Patient underwent ERCP with stent placement and the following day underwent a laparoscopic cholecystectomy. Patient's Xarelto was held when patient Was admitted. Patient did get Lasix 40 mg postoperatively for lap stephie and IV fluids were stopped as patient was on 3 L nasal cannula she was able to be weaned down to 2 L by the morning. Patient is able to be weaned back to room air and tolerating diet will DC home. Weight / BMI Weight Weight: 172 lb 6.424 oz Body Mass Index (BMI) 28.7 ABG / Lab / Microbiology Data 10/12/23 04:00 10/12/23 04:00 Laboratory: Laboratory Results - last 24 hr 10/12/23 04:00: WBC 9.2, RBC 3.67 L, Hgb 11.5 L, Hct 32.7 L, MCV 89.1, MCH 31.3, MCHC 35.2 D, RDW Std Deviation 43.6, RDW Coeff of Jenn 13.7, Plt Count 129 L, MPV 11.3, Immature Gran % (Auto) 2.400 H, Neut % (Auto) 79.8 H, Lymph % (Auto) 8.8 L, [place] % (Auto) 5.3, Eos % (Auto) 3.3, Baso % (Auto) 0.4, Absolute Neuts (auto) 7.4, Absolute Lymphs (auto) 0.81 L, Nucleated RBC % 0, Sodium 144, Potassium 3.5, Chloride 112 H, Carbon Dioxide 25.0, Anion Gap 7, BUN 10, Creatinine 0.74, Estim Creat Clear Calc 81.48, Est GFR (MDRD) Af Amer 102, Est GFR (MDRD) Non-Af 85, BUN/Creatinine Ratio 13.5, Glucose 97, Calcium 8.3 L, Total Bilirubin 1.20 H, AST 37, ALT 73 H, Alkaline Phosphatase 108, B-Natri uretic Peptide 564.0 H, Total Protein 5.8 L, Albumin 2.9 L, Globulin 2.9, Albumin/Globulin Ratio 1.0 Radiography Diagnostic Testing: Radiology Impression Cholangiogram 10/11/23 13:45 IMPRESSION: As above. Electronically Signed: Dino Ramos MD at 16:33 EST , Chest X-Ray 10/12/23 03:50 IMPRESSION: 1. Improved and normal heart size and new left atrial appendage clip compared to March 14, 2022. 2. Mild streaky bibasilar linear opacities, new from prior exam. Considerations include atelectasis, scarring, early infiltrate. Electronically Signed: Darcy Gong MD at 6:52 EST Reading Location ID and State: [facility] / [place] Tel , Service support , D/C Instructions Discharge Diet: No restrictions May shower in (days): 1 Ice area for (Minutes): 20 Call your doctor if your incision/area has: Continuous Slow Oozing, Increased Pain/ Swelling, Increased Redness, Foul Smelling Discharge and Swelling at the incision site Call your doctor if you observe: Fever of 101 or Higher Cleanse incision/area with: Soap & Water Additional Dressing/Incision Instructions: Steri-Strips will fall off in 7 to 10 days, if they do not fall off okay to remove after 10 days. Please Follow Up With: Jamar Ventura MD When: Call the office for a follow-up appointment 2 weeks; after 5 PM and on the weekends call [phone] with any concerns. Meaningful Use Info Meaningful Use Diagnoses (Choose all that apply): None applicable Discharge Plan Admission Admit Date/Time: 10/09/23 13:08 Primary Reason for Your Visit: choledocholithiasis Attending Provider: Jamar Ventura Primary Care Provider: MAR MOORE Consulting Providers: Lauren Brewer Discharge Orders/Prescriptions Prescriptions: New tramadol 50 mg tablet 50 mg PO Q6H PRN (Reason: pain) Qty: 14 0RF Continued cyanocobalamin (vitamin B-12) 1,000 mcg capsule 1,000 mcg PO DAILY colchicine 0.6 mg tablet 0.6 mg PO Q12H dofetilide [Tikosyn] 500 mcg capsule 500 mcg PO BID tadalafil 20 mg tablet 20 mg PO BID pantoprazole 40 mg tablet,delayed release (DR/EC) 40 mg PO DAILY metoprolol succinate 25 mg tablet extended release 24 hr 25 mg PO DAILY metoprolol succinate 25 mg tablet extended release 24 hr 12.5 mg PO QPM magnesium 250 mg tablet 250 mg PO BID cholecalciferol (vitamin D3) [Vitamin D3] 25 mcg (1,000 unit) tablet 25 mcg PO DAILY bumetanide 1 mg tablet 1 mg PO DAILY PRN (Reason: EDEMA ) potassium chloride [K-Tab] 20 mEq tablet extended release 20 meq PO DAILY PRN (Reason: SUPPLEMENT ) Patient Comments: PT STATES THEY TAKE ONE POTASSIUM CHLORIDE 20MEQ ONCE DAILY ONLY IF THEY TAKE A DOSE OF BUMETANIDE ( OF 10-09-22) Rx Instructions: TAKE ONE TABLET BY MOUTH ONCE DAILY ONLY IF BUMETANIDE IS TAKEN buspirone 5 mg tablet 5 mg PO TID PRN (Reason: ANXIETY ) acetaminophen 325 mg tablet 325 mg PO Q6H PRN (Reason: PAIN ) Held Xarelto 20 mg Tablet 20 mg PO QPM Hold Instructions: restart Saturday 10/14- PM Rx Instructions: TAKE ONE TABLET BY MOUTH ONCE DAILY. MUST ADMINISTER WITH MEAL. Referrals / Follow Up: MAR MOORE [Other] MAR MOORE [Other] Disposition Disposition (needs filled in before D/C Order can be placed): Home, Self Care
== END 2023-10-12 12:44 | disposition home or self-care (01) | DRG 419 ==
LOC: ED 11:58 → MS3 10-10 07:05
PROVIDERS: Anesthesiology; Internal Medicine; Internal Medicine Gastroenterology; Physician Assistant; Admitting Provider Surgery; Emergency Provider Emergency Medicine; Visit Provider Surgery
PROC: 0FC98ZZ Extirpation of Matter from Common Bile Duct, Via Natural or Artificial Opening Endoscopic (ICD-10-PCS; CPT 43260; principal; 2023-10-10 08:55)
PROC: 0FT44ZZ Resection of Gallbladder, Percutaneous Endoscopic Approach (ICD-10-PCS; CPT 47610; principal; 2023-10-11 13:10)
DX: K80.62 Calculus of gallbladder and bile duct with acute cholecystitis without obstruction (principal); E87.79 Other fluid overload; I27.20 Pulmonary hypertension, unspecified; K74.69 Other cirrhosis of liver; I48.91 Unspecified atrial fibrillation; K75.81 Nonalcoholic steatohepatitis (NASH); K21.9 Gastro-esophageal reflux disease without esophagitis; G47.33 Obstructive sleep apnea (adult) (pediatric); Z90.49 Acquired absence of other specified parts of digestive tract; Z79.01 Long term (current) use of anticoagulants; Z79.899 Other long term (current) drug therapy
CPT/HCPCS: 36415; 71045; 74177; 74300; 74330; 76000; 76705; 80048; 80053; 80076; 83690; 83735; 83880; 84100; 84484; 85025; 85610; 85730; 88304; 88307; 88313; 93005; 93306; 94668; 99252; 99284; J7030; J7120; Q9967; A4216; G0463; J1940; J2405

== ENCOUNTER 2023-11-07 21:56 | Emergency (ER) | payer OTHER, SELFPAY ==
[2023-11-07 21:57] VITALS: BP 122/85; PULSE 91; RESP 18; TEMP 36.8; O2SAT 98
--- NOTE | 2023-11-07 22:23 | EDS_ITS ---
HPI History of Present Illness Chief Complaint: Palpitations Detail of Chief Complaint: Palpitations and left-sided neck pain Informant: patient Narrative Narrative: Patient presents with main complaint of left-sided neck pain that she has had since yesterday evening. She denies any injury to her neck. 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 She describes the pain at the base of the skull on the left and radiating to the top of her scalp and towards her left eye at times. She denies any falls or injuries. Patient also notes that since around 4 PM she feels like has been going in and out of atrial fibrillation. She does have history of A-fib and has had the maze procedure. She is on Tikosyn and Xarelto. Patient took her evening doses of medications. Pain in her neck is severe and worse with movement. She denies weakness of the left arm or pain down the arm. She had some paresthesias in the left arm earlier but now resolved. [facility] Medical History (Updated 11/07/23 @ 23:[address] Amber Garcia, ) A-fib Pulmonary HTN Sleep apnea Home Medications rivaroxaban 20 mg tablet (Xarelto) 20 mg PO QPM BLOOD THINNER 03/14/22 [History Last Taken 10/08/23] bumetanide 1 mg tablet 1 mg PO DAILY PRN EDEMA 10/09/23 [History Last Taken Unknown] buspirone 5 mg tablet 5 mg PO TID PRN ANXIETY 10/09/23 [History Last Taken Unknown] cholecalciferol (vitamin D3) 25 mcg (1,000 unit) tablet (Vitamin D3) 25 mcg PO DAILY SUPPLEMENT 10/09/23 [History Last Taken 10/08/23] cyanocobalamin (vitamin B-12) 1,000 mcg capsule 1,000 mcg PO DAILY SUPPLEMENT 10/09/23 [History Last Taken 10/08/23] dofetilide 500 mcg capsule (Tikosyn) 500 mcg PO BID AFIB 10/09/23 [History Last Taken 10/08/23] magnesium 250 mg tablet 250 mg PO BID SUPPLEMENT 10/09/23 [History Last Taken 10/08/23] metoprolol succinate 25 mg tablet,extended release 24 hr 12.5 mg PO QPM BLOOD PRESSURE 10/09/23 [History Last Taken 10/08/23] metoprolol succinate 25 mg tablet,extended release 24 hr 25 mg PO DAILY BLOOD PRESSURE 10/09/23 [History Last Taken 10/08/23] potassium chloride 20 mEq tablet,extended release (K-Tab) 20 meq PO DAILY PRN SUPPLEMENT 10/09/23 [History Last Taken Unknown] tadalafil 20 mg tablet 20 mg PO BID LUNGS 10/09/23 [History Last Taken 10/08/23] diazepam 2 mg tablet (Valium) 2 mg PO TID PRN muscle spasm #14 tabs 11/07/23 [Rx Last Taken Unknown] hydrocodone-acetaminophen 5-325mg 5mg-325mg 1 tab PO Q4H PRN PRN Pain 5 days #20 TABLETS 11/07/23 [Rx Last Taken Unknown] ondansetron 4 mg disintegrating tablet 4 mg PO Q8H PRN PRN Nausea #10 tabs 11/07/23 [Rx Last Taken Unknown] prednisone 20 mg tablet 20 mg PO BID #10 tabs 11/07/23 [Rx Last Taken Unknown] Allergy/AdvReac Type Severity Reaction Status Date / Time codeine Allergy Other Verified 11/07/23 21:56 ibuprofen [From Motrin] Allergy Hives Verified 11/07/23 21:56 Iodinated Contrast Media [CT] Allergy Chest Verified 11/07/23 21:56 tightness morphine Allergy Hives Verified 11/07/23 21:56 phenytoin sodium Allergy Other Verified 11/07/23 21:56 [From Dilantin] phenytoin sodium extended Allergy Other Verified 11/07/23 21:56 [From Dilantin] sulfamethoxazole Allergy Hives Verified 11/07/23 21:56 [From Bactrim] trimethoprim [From Bactrim] Allergy Hives Verified 11/07/23 21:56 Family History Father Lung cancer Obesity Aunt Diabetes CAD (coronary artery disease) Mother VSD (ventricular septal defect) Thyroid disorder Brother Leukemia Grandmother Breast cancer Surgical History (Updated 10/28/23 @ 14:[address] Marco A French MD) History of bunionectomy Hx of maze procedure Hx of tonsillectomy Hx of tubal ligation S/P ERCP S/P laparoscopic cholecystectomy Social History Smoking Status: Never smoker ROS ROS ED Review of Systems ROS Unobtainable: other Constitutional Constitutional ED: Reports lethargy; Denies chills, fever(s), sweats or weight loss Eyes Eyes: Denies blurry vision, change in vision or diplopia ENT ENT ED: Denies rhinorrhea or sore throat Cardiovascular Cardiovascular: Reports palpitations; Denies chest pain, orthopnea or racing heartbeat Respiratory/Chest Respiratory/Chest: Denies cough, dyspnea, dyspnea on exertion, orthopnea or sputum Gastrointestinal Gastrointestinal: Denies abdominal pain, diarrhea, nausea or vomiting Genitourinary Genitourinary ED: Denies dysuria, hematuria or urinary frequency Musculoskeletal Musculoskeletal: Reports neck pain; Denies arthralgias, back pain or myalgias Integumentary Denies abscess, Abrasions or rash Neurologic Neurologic: Denies headache(s) or weakness Psychiatric Psychiatric: Denies anxiety, depression or suicidal thoughts Endocrine Endocrinology: Denies polydipsia, polyphagia or polyuria Hematologic/Lymphatic Hematologic/Lymphatic: Denies easy bleeding, easy bruising or lymphadenopathy Allergic/Immunologic Allergic/Immunologic ED: Denies mouth swelling, tongue swelling or urticaria EXAM Physical Exam Const Vital Signs: 11/07/23 21:57 Temperature 98.2 F Temperature Source Temporal Pulse Rate 91 Respiratory Rate 18 Blood Pressure 122/85 H Blood Pressure Mean 97 Pulse Ox 98 Oxygen Delivery Method Room Air Positive well nourished and well developed General Appearance ED: well developed and NAD HEENT Reports TM's clear and moist mucous membranes HEENT Narrative: Tenderness palpation over the area of the occipital nerve on the left. Tenderness palpation of the left cervical paraspinal musculature. normocephalic and atraumatic; Negative for trauma or tenderness Tympanic Membrane ED: Yes TM's clear Eyes PERRL and EOMs intact bilaterally General Eye ED: Negative for pale conjunctiva or scleral icterus Neck no lymphadenopathy, supple and no JVD General: Negative for tenderness Chest Wall inspection of chest normal and palpation of chest normal Chest: Negative for tenderness Resp normal respiratory effort and clear to auscultation bilaterally Effort and Inspection: Negative for respiratory distress or pain with movement Auscultation: Negative for rhonchi, wheezes or diminished lung sounds Cardio regular rate, regular rhythm, S1 normal heart sound, S2 normal heart sound and no murmurs Peripheral Pulses: pulses 2+ throughout GI normal to inspection, nondistended, normoactive bowel sounds, soft to palpation, non-tender, non-distended and no masses Back/Spine no CVA tenderness and no thoracic nor lumbar tenderness Extremity normal to inspection General Extremety ED: Negative for edema General Extremity: Negative for edema Neuro oriented x3, CN's II-XII intact bilaterally, no sensory deficits noted and gait normal Sensorium / Orientation: awake, alert, oriented to person, oriented to place and oriented to time Motor Exam: strength 5/5 throughout and strength abnormal Psych mental status grossly normal Skin no rashes or lesions noted and no wounds MDM MDM MDM Narrative Medical decision making narrative: Patient presents to the emergency department with complaint of left-sided neck pain. Also states she has been in and out of A-fib. She denies any chest pain or shortness of breath. IV line established. EKG obtained showed a sinus rhythm with a rate of 79 bpm with PACs. CBC with differential white count of 9.4 with hemoglobin 13.5 and platelet count of 185. Chemistries unremarkable. Troponin was normal at 7. While in department she did have an IV established and was given Dilaudid IV as well as ordered Valium 2 mg IV and prednisone 40 mg p.o. I suspect her neck pain is likely occipital neuralgia. Patient will be given a prescription for [place] as well as prednisone and Valium. Advised to follow-up with neurology on-call. She may require further treatment if symptoms do not resolve. I do not feel any imaging is indicated as she has had no trauma and no radiculopathy type symptoms. Lab Data Attestation: I reviewed the patient's lab results. Labs: Laboratory Results - last 24 hr 11/07/23 22:31 WBC 9.4 RBC 4.29 Hgb 13.5 Hct 38.4 MCV 89.5 MCH 31.5 MCHC 35.2 RDW Std Deviation 45.1 H RDW Coeff of Jenn 14.2 Plt Count 185 MPV 10.2 Immature Gran % (Auto) 0.500 Neut % (Auto) 70.4 H Lymph % (Auto) 18.5 L [place] % (Auto) 7.4 Eos % (Auto) 2.6 Baso % (Auto) 0.6 Absolute Neuts (auto) 6.6 Absolute Lymphs (auto) 1.73 Nucleated RBC % 0 Sodium 143 Potassium 3.9 Chloride 109 H Carbon Dioxide 28.0 Anion Gap 6 BUN 20 H Creatinine 0.92 Est GFR (MDRD) Af Amer 80 Est GFR (MDRD) Non-Af 66 BUN/Creatinine Ratio 21.7 H Glucose 140 H Calcium 9.8 Troponin I High Sens 7 EKG Initial EKG: Attestation: I personally reviewed and interpreted this EKG as follows: Comments: Sinus rhythm with ventricular rate of 79 bpm with PACs. Discharge Plan Triage Chief Complaint: Palpitations ED Provider: Amber Garcia Dx/Rx/DC Orders Clinical Impression: Occipital neuralgia Instructions: ED Occipital Neuralgia Prescriptions: New hydrocodone-acetaminophen [hydrocodone-acetaminophen] 5-325 mg tablet 1 tab PO Q4H PRN PRN (Reason: Pain) 5 Days Qty: 20 0RF prednisone 20 mg tablet 20 mg PO BID Qty: 10 0RF diazepam [Valium] 2 mg tablet 2 mg PO TID PRN (Reason: muscle spasm) Qty: 14 0RF ondansetron [ondansetron] 4 mg tablet,disintegrating 4 mg PO Q8H PRN PRN (Reason: Nausea) Qty: 10 0RF No Action Xarelto 20 mg Tablet 20 mg PO QPM Hold Instructions: restart Saturday 10/14- PM Rx Instructions: TAKE ONE TABLET BY MOUTH ONCE DAILY. MUST ADMINISTER WITH MEAL. cyanocobalamin (vitamin B-12) 1,000 mcg capsule 1,000 mcg PO DAILY dofetilide [Tikosyn] 500 mcg capsule 500 mcg PO BID tadalafil 20 mg tablet 20 mg PO BID metoprolol succinate 25 mg tablet extended release 24 hr 25 mg PO DAILY metoprolol succinate 25 mg tablet extended release 24 hr 12.5 mg PO QPM magnesium 250 mg tablet 250 mg PO BID cholecalciferol (vitamin D3) [Vitamin D3] 25 mcg (1,000 unit) tablet 25 mcg PO DAILY bumetanide 1 mg tablet 1 mg PO DAILY PRN (Reason: EDEMA ) potassium chloride [K-Tab] 20 mEq tablet extended release 20 meq PO DAILY PRN (Reason: SUPPLEMENT ) Patient Comments: PT STATES THEY TAKE ONE POTASSIUM CHLORIDE 20MEQ ONCE DAILY ONLY IF THEY TAKE A DOSE OF BUMETANIDE ( OF 10-09-22) Rx Instructions: TAKE ONE TABLET BY MOUTH ONCE DAILY ONLY IF BUMETANIDE IS TAKEN buspirone 5 mg tablet 5 mg PO TID PRN (Reason: ANXIETY ) Primary Care Provider: Care Physician,No Primary Referrals: Milad Gray MD [Non-Staff -Ordering Privileges] - 3-5 Days NOT,DEFINED [Non-Staff] - Disposition Disposition: Home, Self Care
[2023-11-07] MEDS: HYDROmorphone 1 MG/ML Syringe IV (22:33)
[2023-11-07] MEDS: Ondansetron 4 MG/2 ML Vial IV (22:33)
--- NOTE | 2023-11-07 22:34 | EKG12_ITS ---
Test Reason : DYSRHYTHMIA Blood Pressure : / mmHG Vent. Rate : 079 BPM Atrial Rate : 079 BPM P-R Int : 176 ms QRS Dur : 066 ms QT Int : 396 ms P-R-T Axes : 058 078 032 degrees QTc Int : 454 ms Sinus rhythm with Premature supraventricular complexes Otherwise normal ECG Baseline artifact Confirmed by Jamar Clark ([id number]), industrial editor ROBIN ROLAND ([id number]) on 11/11/2023 9:48:35 AM Referred By: Confirmed By:Jamar Clark
[2023-11-07 22:39] LABS: Absolute Lymphocyte Count 1.73 X10^3/uL (0.83-4.51); Absolute Neutrophil Count 6.6 X10^3/uL (2.0-7.7); Basophil# 0.06 X10^3/uL; Basophil% 0.6 % (0-1); Eosinophil# 0.24 X10^3/uL; Eosinophils% 2.6 % (0-5); Hematocrit 38.4 % (37-47); Hemoglobin 13.5 g/dL (12.0-15.0); Lymphocyte # 1.73 X10^3/ul (0.83-4.51); Lymphocyte % 18.5 % (19-41); Mean Corp Hgb Conc 35.2 g/dL (32-36); Mean Corpuscular Hgb 31.5 pg (27.0-32.0); Mean Corpuscular Volume 89.5 fL (81-99); Mean Platelet Vol. 10.2 fl (6.2-12.0); Monocyte# 0.69 X10^3/uL; Monocyte% 7.4 % (0-10); NRBC Flagged by Analyzer 0 % (0-5); Neutrophil # 6.59 X10^3/uL (2.7-7.7); Neutrophil % 70.4 % (47-70); Platelet Count 185 K/mm3 (150-450); RBC Distribution Width CV 14.2 % (11.6-14.6); RBC Distribution Width SD 45.1 fl (35.1-43.9); Red Blood Count 4.29 M/mm3 (4.2-5.4); White Blood Count 9.4 K/mm3 (4.4-11.0)
[2023-11-07 22:55] LABS: Anion Gap 6 (5-15); BUN 20 mg/dL (7-18); BUN/Creat Ratio 21.7 RATIO (10-20); Calcium,Total 9.8 mg/dL (8.5-10.1); Chloride 109 mmol/L (98-107); Creatinine, Serum 0.92 mg/dL (0.55-1.02); EST Glomerular Filtration Rate 66 mL/min (>60); Est Glom Filt Rate - Afr Amer 80 mL/min (>60); Glucose 140 mg/dL (74-106); Potassium 3.9 mmol/L (3.5-5.1); Sodium Level 143 mmol/L (136-145); Troponin-I HS 7 pg/mL (3.0-54.0)
[2023-11-07 23:23] VITALS: BP 131/56; PULSE 67; RESP 20; O2SAT 91
[2023-11-07] MEDS: diazePAM 2 MG Tablet PO (23:25)
[2023-11-07] MEDS: predniSONE 20 MG Tablet 40 MG PO (23:25)
[2023-11-07 23:26] VITALS: BP 131/56; PULSE 76; RESP 20; TEMP 36.7; O2SAT 90
== END 2023-11-07 23:36 | disposition home or self-care (01) ==
PROVIDERS: Emergency Provider Emergency Medicine; Visit Provider Emergency Medicine
DX: M54.81 Occipital neuralgia (principal); G47.30 Sleep apnea, unspecified
CPT/HCPCS: 80048; 84484; 85025; 93005; 96374; 96375; 99283; A4216; J2405

== ENCOUNTER 2023-12-30 09:19 | Day surgery (SDC) | payer OTHER, SELFPAY ==
[2023-12-30] VITALS (8 sets, daily range): BP systolic 98–124; BP diastolic 49–63; PULSE 55–70; RESP 12–18; TEMP 36.2–36.6; O2SAT 92–99; BMI 28.6
--- NOTE | 2023-12-30 | FLU_PTH ---
PATIENT: YUE ANGULO LOC: EN U#:[id number] AGE/SX: 63/F ROOM: RE12/30/[address]: Dr. Roberto Carlos Waite DO : 1960 BED: DIS: 12/30/2023 SPEC #: [id number] RECD: 12/30/23 12:54 STATUS: MARQUISE PORFIRIO #: [id number] KAIA: 12/30/23 00:[address]: Roberto Carlos Waite DEPT: CYTOLOGY RECD BY: Nolberto Ríos ENTERED: 12/30/23 12:54 SP TYPE: Fluid OTHR DR: No Primary Care Phys Tissues: Cytologic material, NOS Procedures: Special Stain Group II Surgery Specimen Level IV Cytospin Fluid HEADER OPERATION: ERCP, stent removal PRE-OP DIAGNOSIS: Nonalcoholic fatty liver disease TISSUE SUBMITTED: Stent for cytology DIAGNOSIS CYTOLOGY Stent fluid for cytology (cytospin and cellblock): Negative for malignant cells. See comment. CHANTEL/ 12/31/23 COMMENT Clinical correlation and appropriate follow up are necessary. CYTOLOGY STUDY Slides are reviewed. CYTOLOGY GROSS Received is 0.4 ml of thick brownish-green sludge in as stent tube labeled with the patient's name and and designated per the requisition as Stent for cytology. Submitted for cytology preparation including cell block. mr 12/30/23 TC:5 CPT: 58082,12780
--- NOTE | 2023-12-30 09:30 | RAD_ITS ---
STUDY: ERCP. REASON FOR EXAM: Female, 63 years old. ERCP STENT REMOVAL FLUOROSCOPY TIME (if supplied): ( 1 minute and 27 seconds ) minutes/seconds. 23.58 mGy. 9 images were submitted. TECHNIQUE: ERCP was performed by the aboriginal community council member. Fluoroscopic services were provided. COMPARISON: None. FINDINGS: Removal of the biliary stent. RAD/ERCP Biliary/Pancreas IMPRESSION: Removal of the biliary stent. Electronically Signed: Jared Porter MD at 12:51 EDT ,
[2023-12-30] MEDS: Lactated Ringers 1,000 ML 15 ML IV (09:49)
--- NOTE | 2023-12-30 10:26 | HP.PCM_ITS ---
History and Physical Date of Admission: 12/30/23 YUE ANGULO, is a 63 F who presents to the office today for initial consult. Pt referred by general surgery. Pt presented to [facility] 10/09/23 with RUQ pain. Was found to have choledocholithiasis and cholecystitis. Underwent ERCP, 10/10/23, laparoscopic cholecystectomy and liver bx 10/11/23. Requesting GI f/u for stent removal and liver disease. Pt was feeling well since the hospital visit until this past Saturday. She had follow-up with Dr. Ventura on 10/25/2023 alternate stitches were removed. At that time she did not had any abdominal pain. Started having pain and spasms in mid abdomen. It gets worse when she drinks water. Has hx of IBS. BM are soft but urgent throughout the day. Was told she had fatty liver in 2016. Has also been told she has Cirrhosis. Has never had a liver bx. Has never used alcohol. ROS Const Constitutional: No fatigue ENT ENT: No difficulty swallowing Gastro GI: Positive for bloating, diarrhea, heartburn and excessive flatus; No abdominal pain, belching, change in bowel habits, change in stool character, coffee ground emesis, constipation, cramping, difficulty swallowing, feeling full early, incontinent of stools, Vomiting blood/hematemesis, Blood in stool, loose stools, Black,tarry stools, nausea/dyspepsia, pain with swallowing, vomiting or other Musc Musculoskeletal: Positive for muscle cramps; No joint pain Skin Skin: No yellowing of the eye or itchy eyes Psych Psychiatric: Positive for anxiety and No depression Endo Endocrine: No fatigue Aller/Imm Allergy/Immunologic: No itchy eyes Julian/Lymp Hematologic/Lymphatic: No easy bleeding or easy bruising Exam Const General: cooperative, no acute distress and well developed Nutritional Appearance: overweight Orientation: alert, awake and oriented x3 Other: BMI 28.4 kg/m? HENMT Head: normocephalic and atraumatic Nose: external nose normal Face and sinus: normal facial exam Mouth: moist mucous membranes Eyes Pupils: PERRL EOM: EOM intact bilaterally Neck Neck: normal visual inspection, no meningeal signs and trachea midline Carotids: no bruits Chest Chest palpation & inspection: normal inspection of the chest Resp Effort & Inspection: normal respiratory effort and symmetric chest movement Auscultation: Bilateral: Clear to Auscultation Cardio Palpation: normal PMI Rhythm: abnormal rhythm Heart Sounds: S1 normal, S2 normal and murmur Other: Irregularly irregular rhythm, chronic A-fib. Systolic murmur over LLSB and cardiac apex GI Auscultation: normal bowel sounds Percussion: normal to percussion Palpation: soft, no hepatosplenomegaly and no guarding Other: Port incisions have healed. Patient was counseled on one of the right upper quadrant port incision which has healed but has no discharge uneven edges but approximated well. No discharge or tenderness. No signs of inflammation. No right upper quadrant tenderness or generalized tenderness. No rebound tenderness. General: bimanual renal exam normal bilaterally, bladder normal to inspection and bladder normal to palpation Bimanual Exam- Vagina & Uterus: bladder normal to palpation Musc Musculoskeletal: No joint tenderness, joint redness, joint warmth or decreased range of motion Thoracic/Lumbar Spine: thor and lumb spine abnorm to inspection Skin General: rashes and/or lesions noted, turgor normal and no erythema Wounds: wound noted Neuro General: patient alert, patient awake, patient oriented x3 and no focal motor deficits Speech: speech normal Motor: muscle tone normal throughout Extrem General: normal exam except as noted Psych Appearance: grossly normal Mood: congruent mood Affect: normal affect Attitude: cooperative Quality Reporting Tobacco Screening ([facility] 138) Smoking Status: Never smoker Assessment and Plan Assessment and Plan (1) NAFLD (nonalcoholic fatty liver disease): Status: Chronic Plan: Patient body weight has decreased and so BMI. Her body weight has increased from 192 pounds in February 2022 to 171 pounds about 21 pound since then, 1 and half years ago. Patient had liver biopsy during laparoscopic cholecystectomy and reviewed with the patient. It is reported as Liver parenchymal tissue with focal minimal macrovesicular steatosis and minimal portal chronic inflammation. Regenerative lobular architecture, interface inflammation not seen. Focal minimal chronic inflammation predominantly of lymphocytes near portal areas. Overall patient's lab, imaging and liver biopsy not consistent with cirrhosis therefore ruled out. I told the patient that she does not have cirrhosis. Prior to that patient had abdomen pelvis CT which shows normal liver with GB slightly distended prior to's lap stephie surgery And similar large gallbladder ultrasound shows liver normal echotexture. Patient has elevated liver chemistry suggestive of acute liver injury due to acute on chronic cholecystitis with cholelithiasis. Transaminases were elevated on October 10, 2023 which improved or improving trend last lab in September 2023 with AST normal, ALT 73 alkaline phosphatase normal. Total bili improved from 1.4-1.2. 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 I discussed the risk factors, pathogenesis, natural history complications including cirrhosis and HCC of metabolic dysfunction associated steatotic liver disease, (MASLD) and patient affirmed understanding. There is no approved FDA medication for NAFLD but medications used for diabetes mellitus and weight loss mainly to metformin, pioglitazone and GLP-1 agonist have been found to decrease fatty content and improve fibrosis score found in the research literature. The patient has hypertension, chronic heart disease including chronic A-fib and ASD for which she had ASD closure in 2021 and maze procedure on April 30, 2023. Her medical service representative is outside in [facility] Dr. Mcmullen and probably she also has EP. Patient denies drinking alcohol or history of chronic liver disease. Comprehensive first visit lab test ordered to rule out other disease. Liver ultrasound with elastography ordered. Follow-up after 3 months. There is no medication added at this time. (2) S/P laparoscopic cholecystectomy: Status: Chronic Comment: w liver bx Patient is recovering very well following surgery. She is feeling well and is well-healing on exam. I reviewed with her the results of her pathology which demonstrated evidence of chronic cholecystitis and only minimal inflammation with her liver biopsy. I deferred further interpretation of this microscopy to gastroenterology, but submitted that this did not seem consistent with a diagnosis of liver cirrhosis. Given the finding of steatosis I have encouraged her to assume a lower fat diet. Lastly I also showed her the results of her intraoperative cholangiography and reminded her that she will require a follow- up visit with gastroenterology for removal of her temporary common bile duct stent. Plan: Portal incisions are healing well. No wound complication (3) Abnormal LFTs: Status: Deleted (4) Liver disease: Status: Deleted Orders: Orders Anti-Mitochondrial AB 3 Months K76.9 - Liver disease, unspecified, R79.89 - Other specified abnormal findings of blood chemistry Anti-Smooth Muscle ABS 3 Months K76.9 - Liver disease, unspecified, R79.89 - Other specified abnormal findings of blood chemistry CBC W/Diff, Automated 3 Months K76.9 - Liver disease, unspecified, R79.89 - Other specified abnormal findings of blood chemistry Angiotensin Convert Enzyme 3 Months K76.9 - Liver disease, unspecified, R79.89 - Other specified abnormal findings of blood chemistry ANCA 3 Months K76.9 - Liver disease, unspecified, R79.89 - Other specified abnormal findings of blood chemistry Copper, Serum or Plasma 3 Months K76.9 - Liver disease, unspecified, R79.89 - Other specified abnormal findings of blood chemistry Comprehensive Metabolic Profil 3 Months K76.9 - Liver disease, unspecified, R79.89 - Other specified abnormal findings of blood chemistry Ceruloplasmin 3 Months K76.9 - Liver disease, unspecified, R79.89 - Other specified abnormal findings of blood chemistry Ferritin 3 Months K76.9 - Liver disease, unspecified, R79.89 - Other specified abnormal findings of blood chemistry Hemoglobin A1c 3 Months K76.9 - Liver disease, unspecified, R79.89 - Other specified abnormal findings of blood chemistry Haptoglobin 3 Months K76.9 - Liver disease, unspecified, R79.89 - Other specified abnormal findings of blood chemistry Lipid Profile 3 Months K76.9 - Liver disease, unspecified, R79.89 - Other specified abnormal findings of blood chemistry Prothrombin Time w/INR 3 Months K76.9 - Liver disease, unspecified, R79.89 - Other specified abnormal findings of blood chemistry LDH 3 Months K76.9 - Liver disease, unspecified, R79.89 - Other specified abnormal findings of blood chemistry HIV - WCH 3 Months K76.9 - Liver disease, unspecified, R79.89 - Other specified abnormal findings of blood chemistry Hepatitis Panel Acute 3 Months K76.9 - Liver disease, unspecified, R79.89 - Other specified abnormal findings of blood chemistry CRP 3 Months K76.9 - Liver disease, unspecified, R79.89 - Other specified abnormal findings of blood chemistry ABD Limited w/ Elastography 3 Months K76.9 - Liver disease, unspecified, R79.89 - Other specified abnormal findings of blood chemistry OSMAN w/ Reflex Mult Confirm 3 Months K76.9 - Liver disease, unspecified, R79.89 - Other specified abnormal findings of blood chemistry Vitamin D,25 Hydroxy 3 Months K76.9 - Liver disease, unspecified, R79.89 - Other specified abnormal findings of blood chemistry Iron+Iron Binding Capacity 3 Months K76.9 - Liver disease, unspecified, R79.89 - Other specified abnormal findings of blood chemistry I have examined the patient and the H&P has been reviewed. There are no clinical changes since date of exam.
[2023-12-30 11:22] LABS: Cytology, Body Fluid / CSF SEE PATHOLOGY REPORT
[2023-12-30] MEDS: Lactated Ringers 1,000 ML 999 ML IV (11:30)
[2023-12-30] MEDS: Famotidine 200 MG/20 ML MDV 20 MG in 0.9% Normal Saline (Pres. free 8 ML 300 MG IV (11:33)
--- NOTE | 2023-12-30 11:55 | OP.CCLET_ITS ---
12/30/2023 No Primary Care Physician Re : ERCP procedure for Dorcas Walker Dear Care Physician This procedure was performed on Saturday, December 30, 2023. My impressions and recommendations are as follows: Impressions : - The entire main bile duct was moderately dilated, acquired. - Choledocholithiasis was found. Complete removal was accomplished by biliary sphincterotomy and balloon extraction. - A biliary sphincterotomy was performed. - The biliary tree was swept. - One stent was removed from the biliary tree. Recommendations : My findings are described in the full procedure note, which is enclosed. If I can be of further assistance, please feel free to contact me at . Sincerely, Roberto Carlos Waite, 12/30/2023 11:54:57 AM This report has been signed electronically.
--- NOTE | 2023-12-30 11:55 | OP.ERCP_ITS ---
Patient Name: Dorcas Walker Procedure Date: 12/30/2023 10:26 AM Date of : 1960 Age: 63 Procedure: ERCP Indications: Biliary stent removal Providers: Roberto Carlos Waite DO Referring MD: Roberto Carlos Waite DO Medicines: Monitored Anesthesia Care Patient Profile: This is a 63 year old female. Refer to note in patient chart for documentation of history and physical. Patient has symptoms of acute right upper quadrant abdominal pain and acute jaundice. Her most recent ERCP for biliary evaluation, ERCP for stent and ERCP for stone removal. Complications: No immediate complications. Procedure: Pre-Anesthesia Assessment: - Prior to the procedure, a History and Physical was performed, and patient medications and allergies were reviewed. The patient is competent. The risks and benefits of the procedure and the sedation options and risks were discussed with the patient. All questions were answered and informed consent was obtained. Patient identification and proposed procedure were verified by the physician in the pre-procedure area. Mental Status Examination: alert and oriented. Airway Examination: normal oropharyngeal airway and neck mobility. Respiratory Examination: clear to auscultation. CV Examination: normal. Prophylactic Antibiotics: The patient does not require prophylactic antibiotics. Prior Anticoagulants: The patient has taken no anticoagulant or antiplatelet agents. ASA Grade Assessment: II - A patient with mild systemic disease. After reviewing the risks and benefits, the patient was deemed in satisfactory condition to undergo the procedure. The anesthesia plan was to use monitored anesthesia care (MAC). Immediately prior to administration of medications, the patient was re-assessed for adequacy to receive sedatives. The heart rate, respiratory rate, oxygen saturations, blood pressure, adequacy of pulmonary ventilation, and response to care were monitored throughout the procedure. The physical status of the patient was re-assessed after the procedure. After obtaining informed consent, the scope was passed under direct vision. Throughout the procedure, the patient's blood pressure, pulse, and oxygen saturations were monitored continuously. The Duodenoscope was introduced through the mouth, and advanced to the duodenum and used for direct visualization of the bile duct and ventral pancreatic duct. The ERCP was accomplished without difficulty. The patient tolerated the procedure well. Scope In: 10:59:16 AM Scope Out: 11:10:56 AM Total Procedure Duration Time 0 hours 11 minutes 40 seconds Findings: The imaging clerk film was normal. The esophagus was successfully intubated under direct vision. The scope was advanced to a normal major papilla in the descending duodenum without detailed examination of the pharynx, larynx and associated structures, and upper GI tract. The upper GI tract was grossly normal. The bile duct was deeply cannulated with the short-nosed traction sphincterotome. Contrast was injected. I personally interpreted the bile duct and pancreatic duct images. There was brisk flow of contrast through the ducts. Image quality was excellent. Contrast extended to the entire biliary tree. Opacification of the entire biliary tree except for the gallbladder was successful. The maximum diameter of the ducts was 10 mm. The lower third of the main bile duct contained one stone, which was 6 mm in diameter. The main bile duct was moderately dilated, acquired. The largest diameter was 9 mm. A straight Roadrunner wire was passed into the biliary tree. A 5 mm biliary sphincterotomy was made with a traction (standard) sphincterotome using ERBE electrocautery. There was no post-sphincterotomy bleeding. The biliary tree was swept with a 12 mm balloon starting at the bifurcation. Sludge was swept from the duct. All stones were removed. One stent was removed from the biliary tree using a snare and sent for cytology. The stent was found to be partially occluded via the water column test. Impression: - The entire main bile duct was moderately dilated, acquired. - Choledocholithiasis was found. Complete removal was accomplished by biliary sphincterotomy and balloon extraction. - A biliary sphincterotomy was performed. - The biliary tree was swept. - One stent was removed from the biliary tree. Procedure Code(s): --- Professional --- 57458, Endoscopic retrograde cholangiopancreatography (ERCP); with removal of foreign body(s) or stent(s) from biliary/pancreatic duct(s) 96036, Endoscopic retrograde cholangiopancreatography (ERCP); with removal of calculi/debris from biliary/pancreatic duct(s) 13462, Endoscopic retrograde cholangiopancreatography (ERCP); with sphincterotomy/papillotomy 86650, 26, Combined endoscopic catheterization of the biliary and pancreatic ductal systems, radiological supervision and interpretation CPT copyright 2021 [employer]. All rights reserved. The codes documented in this report are preliminary and upon armored vehicle officer review may be revised to meet current compliance requirements. Roberto Carlos Waite DO 12/30/2023 11:54:57 AM This report has been signed electronically. Number of Addenda: 0 Note Initiated On: 12/30/2023 10:26 AM
== END 2023-12-30 13:56 | disposition home or self-care (01) ==
LOC: EN 09:21 → AC 09:22
PROVIDERS: Referring Provider Internal Medicine Gastroenterology; Visit Provider Internal Medicine Gastroenterology
PROC: (CPT 43260; principal; 2023-12-30 10:10)
DX: K80.40 Calculus of bile duct with cholecystitis, unspecified, without obstruction (principal); K74.60 Unspecified cirrhosis of liver; K58.9 Irritable bowel syndrome, unspecified; K83.8 Other specified diseases of biliary tract; K76.0 Fatty (change of) liver, not elsewhere classified; Z79.899 Other long term (current) drug therapy; Z79.01 Long term (current) use of anticoagulants
CPT/HCPCS: 43275; 43264; 43262; 74330; 76000; 88108; 88305; 88313; J7120; J2405; J3490

== ENCOUNTER 2024-03-02 07:35 | Emergency (ER) | payer OTHER, SELFPAY ==
[2024-03-02 07:36] VITALS: BP 92/61; PULSE 63; RESP 16; TEMP 36.7; O2SAT 97; BMI 28.9
--- NOTE | 2024-03-02 07:40 | EX.ED.VIS.EY ---
HPI History of Present Illness Chief Complaint: Eye Problem [facility] Medical History (Updated 12/25/23 @ 15:53 by Annamarie Izaguirre) Wears glasses Depression Anxiety Arthritis Fatty liver Easy bruising Restless legs Migraine headache History of IBS GERD (gastroesophageal reflux disease) CPAP (continuous positive airway pressure) dependence Chronic cough Shortness of breath on exertion Non-smoker History of echocardiogram History of stress test Hypertension Cardiology follow-up encounter History of atrial fibrillation A-fib Pulmonary HTN Sleep apnea Home Medications ?Medication ?Instructions ?Recorded ?Last Taken ?Type rivaroxaban 20 mg tablet (Xarelto) 20 mg PO QPM BLOOD THINNER 03/14/22 12/25/23 History bumetanide 1 mg tablet 1 mg PO DAILY PRN EDEMA 10/09/23 12/29/23 History buspirone 5 mg tablet 5 mg PO TID PRN ANXIETY 10/09/23 12/29/23 History cholecalciferol (vitamin D3) 25 25 mcg PO DAILY SUPPLEMENT 10/09/23 12/29/23 History mcg (1,000 unit) tablet (Vitamin D3) cyanocobalamin (vitamin B-12) 1,000 mcg PO DAILY SUPPLEMENT 10/09/23 12/29/23 History 1,000 mcg capsule dofetilide 500 mcg capsule 500 mcg PO BID AFIB 10/09/23 12/29/23 History (Tikosyn) magnesium 250 mg tablet 250 mg PO BID SUPPLEMENT 10/09/23 12/29/23 History metoprolol succinate 25 mg 12.5 mg PO QPM BLOOD PRESSURE 10/09/23 12/29/23 History tablet,extended release 24 hr metoprolol succinate 25 mg 25 mg PO DAILY BLOOD PRESSURE 10/09/23 12/29/23 History tablet,extended release 24 hr potassium chloride 20 mEq 20 meq PO DAILY PRN SUPPLEMENT 10/09/23 12/27/23 History tablet,extended release (K-Tab) tadalafil 20 mg tablet 20 mg PO BID LUNGS 10/09/23 12/29/23 History ondansetron 4 mg disintegrating 4 mg PO Q8H PRN PRN Nausea #10 tabs 11/07/23 Unknown Rx tablet pantoprazole 40 mg tablet,delayed 40 mg PO DAILY PRN GERD 12/25/23 12/28/23 History release prednisone 50 mg tablet 50 mg PO DAILY #5 tabs 03/02/24 Unknown Rx Allergy/AdvReac Type Severity Reaction Status Date / Time codeine Allergy Other Verified 03/02/24 07:36 ibuprofen (From Motrin) Allergy Hives Verified 03/02/24 07:36 Iodinated Contrast Media (CT) Allergy Chest Verified 03/02/24 07:36 tightness morphine Allergy Hives Verified 03/02/24 07:36 phenytoin sodium (From Allergy Other Verified 03/02/24 07:36 Dilantin) phenytoin sodium extended Allergy Other Verified 03/02/24 07:36 (From Dilantin) sulfamethoxazole (From Allergy Hives Verified 03/02/24 07:36 Bactrim) trimethoprim (From Bactrim) Allergy Hives Verified 03/02/24 07:36 Family History Father Lung cancer Obesity Aunt Diabetes CAD (coronary artery disease) Mother VSD (ventricular septal defect) Thyroid disorder Brother Leukemia Grandmother Breast cancer Surgical History (Updated 12/25/23 @ 15:53 by Annamarie Izaguirre) History of cardiac catheterization History of atrial septal defect repair (~2021) S/P ERCP S/P laparoscopic cholecystectomy Hx of maze procedure Hx of tubal ligation History of bunionectomy Hx of tonsillectomy Social History Smoking Status: Never smoker EXAM Physical Exam Const Vital Signs: 03/02/24 07:36 Temperature 98.1 F Temperature Source Temporal Pulse Rate 63 Respiratory Rate 16 Blood Pressure 92/61 Blood Pressure Mean 71 Pulse Ox 97 Oxygen Delivery Method Room Air MDM MDM MDM Narrative Medical decision making narrative: HISTORY OF PRESENT ILLNESS: 63-year-old female presents with eye problem. Notes eye swollen shut after coming contact with poison bats[place]va in her garden. REVIEW OF SYSTEMS: Pertinent positives: Eye problem Pertinent negatives: Fever, vomiting, decreased visual acuity PHYSICAL EXAM: Nursing triage notes reviewed, Vital signs reviewed Constitutional: please see mdm HENT: MMM Eyes: Pupils equal round and reactive to light, Extraocular muscles intact, visual acuity 20/20 bilaterally, conjunctiva noninjected Neck: No stridor, no JVD, full neck ROM Skin: No rash or lesions noted MEDICAL DECISION MAKING: Chief Complaint: Eye complaint External records reviewed: No recent evaluation by ophthalmology Factors affecting care: atrial fibrillation on Xarelto Social determinants of health: none History obtained from others: none Consults: none MDM Narrative: Patient was hemodynamically stable, afebrile and nontoxic appearing. Exam without issues with the left eye. Visual acuity intact. Exam was more consistent with an allergic/contact dermatitis rather than infectious etiology. I considered the following differential diagnosis: Cellulitis, preseptal cellulitis, allergic skin reaction Exam and history most consistent with likely allergic versus or based plant dermatitis Will give symptomatic treatment in the form of antihistamines and corticosteroids. Strict return precautions were discussed The patient and/or family, caregivers express understanding. The patient and/or family, caregivers agrees with the plan. Shared decision making: I will have a discussion with the patient and or visitors regarding risk/benefits of further testing or admission. They will be made aware of of the risk/benefits inherent in this decision they will be given the opportunity to voice understanding. Total critical care time today provided was at least 0 minutes. This excludes separately billable procedures. Critical care time (if documented) is secondary to the patient having high probability of clinically significant/life threatening deterioration in the patient's condition which required my urgent intervention. Impression: 1. Poison batsheva 2. Eyelid swelling Dispo: Discharge home This note was generated with [employer] dictation software. It may contain incorrect words, spelling, and punctuation that were not noted in review of the chart prior to signing. Discharge Plan Triage Chief Complaint: Eye Problem ED Provider: Casey Bryson Dx/Rx/DC Orders Instructions: ED Poison [place]va or Poison [place] Rash Prescriptions: New prednisone 50 mg tablet 50 mg PO DAILY Qty: 5 0RF No Action Xarelto 20 mg Tablet 20 mg PO QPM Rx Instructions: TAKE ONE TABLET BY MOUTH ONCE DAILY. MUST ADMINISTER WITH MEAL. cyanocobalamin (vitamin B-12) 1,000 mcg capsule 1,000 mcg PO DAILY dofetilide [Tikosyn] 500 mcg capsule 500 mcg PO BID tadalafil 20 mg tablet 20 mg PO BID metoprolol succinate 25 mg tablet extended release 24 hr 25 mg PO DAILY metoprolol succinate 25 mg tablet extended release 24 hr 12.5 mg PO QPM magnesium 250 mg tablet 250 mg PO BID cholecalciferol (vitamin D3) [Vitamin D3] 25 mcg (1,000 unit) tablet 25 mcg PO DAILY bumetanide 1 mg tablet 1 mg PO DAILY PRN (Reason: EDEMA ) potassium chloride [K-Tab] 20 mEq tablet extended release 20 meq PO DAILY PRN (Reason: SUPPLEMENT ) Patient Comments: PT STATES THEY TAKE ONE POTASSIUM CHLORIDE 20MEQ ONCE DAILY ONLY IF THEY TAKE A DOSE OF BUMETANIDE ( OF 10-09-22) Rx Instructions: TAKE ONE TABLET BY MOUTH ONCE DAILY ONLY IF BUMETANIDE IS TAKEN buspirone 5 mg tablet 5 mg PO TID PRN (Reason: ANXIETY ) pantoprazole 40 mg tablet,delayed release (DR/EC) 40 mg PO DAILY PRN (Reason: GERD) ondansetron [ondansetron] 4 mg tablet,disintegrating 4 mg PO Q8H PRN PRN (Reason: Nausea) Qty: 10 0RF Primary Care Provider: Lina Zendejas MD Referrals: Petar Rivas MD [Non-Staff] - Activity Restrictions/Additional Instructions: Thank you for trusting us with your care today! Please take Tylenol (2 pills, 650 mg), ibuprofen (2 pills, 400 mg) every 6 hours as needed for pain and fever control. Please take prednisone as prescribed. Please go to local pharmacy or drugstore and obtain Pepcid and Zyrtec (cetirizine) or Benadryl for additional symptomatic control. Please return to the emergency department if your symptoms change or worsen. Specifically develop fever, chills, white-yellow discharge, body aches or signs of infection. If develop any visual loss or change Please follow with your primary care physician for further outpatient evaluation and management. Print Language: Kyrgyz Disposition Disposition: Home, Self Care
[2024-03-02] MEDS: Famotidine 20 MG Tablet PO (08:28)
[2024-03-02] MEDS: predniSONE 20 MG Tablet 40 MG PO (08:29)
[2024-03-02 08:30] VITALS: BP 92/71; PULSE 88; RESP 18; TEMP 36.4; O2SAT 98
== END 2024-03-02 08:31 | disposition home or self-care (01) ==
PROVIDERS: Emergency Provider Emergency Medicine; Visit Provider Emergency Medicine
DX: L23.7 Allergic contact dermatitis due to plants, except food (principal); G47.30 Sleep apnea, unspecified
CPT/HCPCS: 99282

== ENCOUNTER 2024-03-09 06:33 | Emergency (ER) | payer OTHER, SELFPAY ==
[2024-03-09 06:34] VITALS: PULSE 69; RESP 16; TEMP 36.9; O2SAT 93; BMI 28.5
--- NOTE | 2024-03-09 07:32 | EX.ED.DYSGE1 ---
HPI History of Present Illness Chief Complaint: Rash Informant: patient Onset/Context/Timing Onset: Days Context: Gradual Onset Timing: Continuous Current Severity: Moderate Maximum Severity: Moderate Narrative Narrative: 63-year-old female was doing yard work developed a very itchy rash initially on her face that improved and went away after steroids. Now is on her arms primarily. Denies any illness. Initially was seen in the ER put on prednisone which resolved the initial facial rash. Knots on her arms. She has seen her primary care physician's office in the interim they put her on 40 mg of steroids which has not taken care of the rash. And the antibiotic Keflex. She saw there physician specimen preparation assistant. Prior similar symptoms: Yes Recent Illness/Hospitalization: No PFSH PFSH Medical History Wears glasses Depression Anxiety Arthritis Fatty liver Easy bruising Restless legs Migraine headache History of IBS GERD (gastroesophageal reflux disease) CPAP (continuous positive airway pressure) dependence Chronic cough Shortness of breath on exertion Non-smoker History of echocardiogram History of stress test Hypertension Cardiology follow-up encounter History of atrial fibrillation A-fib Pulmonary HTN Sleep apnea Home Medications ?Medication ?Instructions ?Recorded ?Last Taken ?Type rivaroxaban 20 mg tablet (Xarelto) 20 mg PO QPM BLOOD THINNER 03/14/22 12/25/23 History bumetanide 1 mg tablet 1 mg PO DAILY PRN EDEMA 10/09/23 12/29/23 History buspirone 5 mg tablet 5 mg PO TID PRN ANXIETY 10/09/23 12/29/23 History cholecalciferol (vitamin D3) 25 25 mcg PO DAILY SUPPLEMENT 10/09/23 12/29/23 History mcg (1,000 unit) tablet (Vitamin D3) cyanocobalamin (vitamin B-12) 1,000 mcg PO DAILY SUPPLEMENT 10/09/23 12/29/23 History 1,000 mcg capsule dofetilide 500 mcg capsule 500 mcg PO BID AFIB 10/09/23 12/29/23 History (Tikosyn) magnesium 250 mg tablet 250 mg PO BID SUPPLEMENT 10/09/23 12/29/23 History metoprolol succinate 25 mg 12.5 mg PO QPM BLOOD PRESSURE 10/09/23 12/29/23 History tablet,extended release 24 hr metoprolol succinate 25 mg 25 mg PO DAILY BLOOD PRESSURE 10/09/23 12/29/23 History tablet,extended release 24 hr potassium chloride 20 mEq 20 meq PO DAILY PRN SUPPLEMENT 10/09/23 12/27/23 History tablet,extended release (K-Tab) tadalafil 20 mg tablet 20 mg PO BID LUNGS 10/09/23 12/29/23 History ondansetron 4 mg disintegrating 4 mg PO Q8H PRN PRN Nausea #10 tabs 11/07/23 Unknown Rx tablet pantoprazole 40 mg tablet,delayed 40 mg PO DAILY PRN GERD 12/25/23 12/28/23 History release prednisone 50 mg tablet 50 mg PO DAILY #5 tabs 03/02/24 Unknown Rx prednisone 50 mg tablet 50 mg PO DAILY 10 days #10 tabs 03/09/24 Unknown Rx Allergy/AdvReac Type Severity Reaction Status Date / Time codeine Allergy Other Verified 03/09/24 06:42 ibuprofen (From Motrin) Allergy Hives Verified 03/09/24 06:42 Iodinated Contrast Media (CT) Allergy Chest Verified 03/09/24 06:42 tightness morphine Allergy Hives Verified 03/09/24 06:42 phenytoin sodium (From Allergy Other Verified 03/09/24 06:42 Dilantin) phenytoin sodium extended Allergy Other Verified 03/09/24 06:42 (From Dilantin) sulfamethoxazole (From Allergy Hives Verified 03/09/24 06:42 Bactrim) trimethoprim (From Bactrim) Allergy Hives Verified 03/09/24 06:42 Family History Father Lung cancer Obesity Aunt Diabetes CAD (coronary artery disease) Mother VSD (ventricular septal defect) Thyroid disorder Brother Leukemia Grandmother Breast cancer Surgical History History of cardiac catheterization History of atrial septal defect repair (~2021) S/P ERCP S/P laparoscopic cholecystectomy Hx of maze procedure Hx of tubal ligation History of bunionectomy Hx of tonsillectomy Social History Smoking Status: Never smoker ROS ROS ED ROS Narrative Rash. Itching. Review of Systems ROS Unobtainable: Denies due to encephalopathy Constitutional Constitutional ED: Denies chills or fever(s) Eyes Eyes: Denies blurry vision ENT ENT ED: Denies ear pain Cardiovascular Cardiovascular: Denies chest pain Respiratory/Chest Respiratory/Chest: Denies cough or dyspnea Gastrointestinal Gastrointestinal: Denies abdominal pain Genitourinary Genitourinary ED: Denies dysuria or hematuria Musculoskeletal Musculoskeletal: Denies arthralgias or back pain Integumentary Reports rash and other Details: Itching ; Denies abscess or Abrasions Neurologic Neurologic: Denies headache(s) Psychiatric Psychiatric: Denies anxiety Endocrine Endocrinology: Denies cold intolerance Hematologic/Lymphatic Hematologic/Lymphatic: Reports none Allergic/Immunologic Allergic/Immunologic ED: Denies mouth swelling, tongue swelling or urticaria EXAM Physical Exam Narrative Exam Narrative: Well-appearing 63-year-old female. Vital signs stable afebrile. H EENT exam unremarkable. Mytrex membranes. No swelling of the lips or tongue. Neck nontender. Lungs clear to auscultation bilaterally. Heart regular rhythm no murmur. Abdomen soft nontender. No rash on her abdomen or chest. Back nontender. Moving all 4 extremities. She has a red raised rash consistent with a contact dermatitis on both upper extremities. Consistent with likely poison batsheva reaction. There is no secondary cellulitis. There is no bacterial infection. Neurologically she is awake and alert. Const Vital Signs: 03/09/24 06:34 Temperature 98.4 F Temperature Source Oral Pulse Rate 69 Respiratory Rate 16 Pulse Ox 93 Oxygen Delivery Method Room Air Positive well nourished and well developed; Negative for cachectic, contractures or unkempt General Appearance ED: well developed and NAD; Negative for unkempt, cachectic, contractures, cyanotic, diaphoretic or pallor Nutritional Appearance: Negative for cachectic HEENT Reports moist mucous membranes Negative for trauma or tenderness Eyes PERRL and EOMs intact bilaterally General Eye ED: Negative for pale conjunctiva or scleral icterus Neck no lymphadenopathy, supple and no JVD General: Negative for tenderness Lymph Lymphatic: Negative for other Chest Wall inspection of chest normal and palpation of chest normal Chest: Negative for other Resp normal respiratory effort and clear to auscultation bilaterally Effort and Inspection: Negative for retractions Auscultation: Negative for rales, rhonchi or wheezes Cardio regular rate, regular rhythm, S1 normal heart sound, S2 normal heart sound and no murmurs GI normal to inspection, nondistended, normoactive bowel sounds, non-tender, non-distended and no masses Inspection: Negative for abdominal distention Auscultation: normoactive bowel sounds Palpation: soft; Negative for tender, guarding or rebound tenderness present Back/Spine no CVA tenderness General Back: Negative for CVA tenderness Cervical Spine: Negative for cervical spine tenderness Thoracic Spine / Upper Back: Negative for thoracic spinal tenderness or paraspinal muscle tenderness Lumbar Spine / Lower Back: Negative for lumbar spinal tenderness Extremity normal to inspection Extremity Narrative: Rash on both upper extremities consistent with a contact dermatitis. Red and raised. No secondary cellulitis. No streaking. No lymphadenopathy. General Extremety ED: Negative for edema or tenderness General Extremity: Negative for edema Neuro oriented x3 and CN's II-XII intact bilaterally Sensorium / Orientation: alert; Negative for orientation impaired, lethargic or stuporous Motor Exam: strength 5/5 throughout Psych mental status grossly normal Appearance: Negative for unkempt Attitude: No agitated Mood & Affect: Negative for depressed, anxious or tearful Skin No no rashes or lesions noted, no wounds and skin turgor normal General Skin Exam: elasticity normal; Negative for jaundice or pallor Lesions: No lesion noted Rashes: rashes noted Trauma: Negative for abrasion Wounds: Negative for wounds noted MDM MDM MDM Narrative Medical decision making narrative: 63-year-old female contact dermatitis or allergic reaction most likely like a poison batsheva. She will be placed on prednisone 50 mg a day until rash goes away. Return if worse or follow-up with her doctor or river expedition guide if not improving. This does not look infectious at all. I had her stop the antibiotic she was started on by her primary care physician's office. Discharge Plan Triage Chief Complaint: Rash ED Provider: Julio Kendall Dx/Rx/DC Orders Clinical Impression: Contact dermatitis, Poison batsheva Instructions: ED Poison Batsheva Rash Prescriptions: New prednisone 50 mg tablet 50 mg PO DAILY 10 Days Qty: 10 0RF No Action Xarelto 20 mg Tablet 20 mg PO QPM Rx Instructions: TAKE ONE TABLET BY MOUTH ONCE DAILY. MUST ADMINISTER WITH MEAL. cyanocobalamin (vitamin B-12) 1,000 mcg capsule 1,000 mcg PO DAILY dofetilide [Tikosyn] 500 mcg capsule 500 mcg PO BID tadalafil 20 mg tablet 20 mg PO BID metoprolol succinate 25 mg tablet extended release 24 hr 25 mg PO DAILY metoprolol succinate 25 mg tablet extended release 24 hr 12.5 mg PO QPM magnesium 250 mg tablet 250 mg PO BID cholecalciferol (vitamin D3) [Vitamin D3] 25 mcg (1,000 unit) tablet 25 mcg PO DAILY bumetanide 1 mg tablet 1 mg PO DAILY PRN (Reason: EDEMA ) potassium chloride [K-Tab] 20 mEq tablet extended release 20 meq PO DAILY PRN (Reason: SUPPLEMENT ) Patient Comments: PT STATES THEY TAKE ONE POTASSIUM CHLORIDE 20MEQ ONCE DAILY ONLY IF THEY TAKE A DOSE OF BUMETANIDE ( OF 10-09-22) Rx Instructions: TAKE ONE TABLET BY MOUTH ONCE DAILY ONLY IF BUMETANIDE IS TAKEN buspirone 5 mg tablet 5 mg PO TID PRN (Reason: ANXIETY ) pantoprazole 40 mg tablet,delayed release (DR/EC) 40 mg PO DAILY PRN (Reason: GERD) ondansetron [ondansetron] 4 mg tablet,disintegrating 4 mg PO Q8H PRN PRN (Reason: Nausea) Qty: 10 0RF prednisone 50 mg tablet 50 mg PO DAILY Qty: 5 0RF Primary Care Provider: Lina Zendejas MD Referrals: Lina Zendejas MD [Other] Activity Restrictions/Additional Instructions: This rash is consistent with either poison batsheva or another contact dermatitis or allergic reaction. Stop the antibiotic. Starting tomorrow prednisone 50 mg once a day for up to 10 days. You most likely will not needed that long. When the rash goes away take it for 1 to 2 days longer then you can stop it altogether. Follow-up with your doctor or river expedition guide if this does not go completely away. Benadryl for itching and calamine lotion applied to the rash should help soothe it. Print Language: Upper Sorbian Disposition Disposition: Home, Self Care
[2024-03-09 07:48] VITALS: BP 124/82; PULSE 67; RESP 15; TEMP 36.2; O2SAT 98
== END 2024-03-09 07:50 | disposition home or self-care (01) ==
PROVIDERS: Emergency Provider Emergency Medicine; Visit Provider Emergency Medicine
DX: L23.7 Allergic contact dermatitis due to plants, except food (principal); G47.30 Sleep apnea, unspecified
CPT/HCPCS: 99282

== ENCOUNTER 2024-05-23 01:33 | Emergency (ER) | payer OTHER, SELFPAY ==
[2024-05-23] VITALS (17 sets, daily range): BP systolic 107–156; BP diastolic 51–114; PULSE 65–129; RESP 12–23; TEMP 36.1–36.6; O2SAT 93–99; BMI 28.5
--- NOTE | 2024-05-23 02:14 | EKG12_ITS ---
Test Reason : PALPITATIONS Blood Pressure : / mmHG Vent. Rate : 113 BPM Atrial Rate : 312 BPM P-R Int : 000 ms QRS Dur : 068 ms QT Int : 348 ms P-R-T Axes : 000 085 007 degrees QTc Int : 477 ms Atrial flutter with variable A-V block Nonspecific ST abnormality Abnormal ECG Confirmed by MARIELY THAKKAR ([id number]), editor sound PABLO CHANDLER ([id number]) on 05/26/2024 8:21:35 AM Referred By: KRISTEN Confirmed By:MARIELY THAKKAR
--- NOTE | 2024-05-23 02:15 | ED.VIS.CHEST ---
HPI History of Present Illness Chief Complaint: Palpitations Informant: patient, spouse/S.O. and EMS Narrative Narrative: 63-year-old female woke up in the middle of the night feeling chest heaviness, racing palpitations, lightheadedness like she would faint. She has had some the symptoms before but never woke her up in the middle of the night, and never with the presyncope associated with it. She has a history of atrial fibrillation as well as atrial flutter, it is paroxysmal and she states she usually is in a normal sinus rhythm. She had a maze procedure a year ago. She follows with Dr. Nguyen and cardiovascular consultants in [place]. She states she is feeling a little short of breath. She was fine when she went to bed. She has been anticoagulated on Xarelto for least 2 years. She is still feeling the palpitations but not as bad as she was earlier. No recent medication changes. No recent illness. [facility] Medical History Wears glasses Depression Anxiety Arthritis Fatty liver Easy bruising Restless legs Migraine headache History of IBS GERD (gastroesophageal reflux disease) CPAP (continuous positive airway pressure) dependence Chronic cough Shortness of breath on exertion Non-smoker History of echocardiogram History of stress test Hypertension Cardiology follow-up encounter History of atrial fibrillation A-fib Pulmonary HTN Sleep apnea Home Medications ?Medication ?Instructions ?Recorded ?Last Taken ?Type rivaroxaban 20 mg tablet (Xarelto) 20 mg PO QPM BLOOD THINNER 03/14/22 12/25/23 History buspirone 5 mg tablet 5 mg PO TID PRN ANXIETY 10/09/23 12/29/23 History cholecalciferol (vitamin D3) 25 25 mcg PO DAILY SUPPLEMENT 10/09/23 12/29/23 History mcg (1,000 unit) tablet (Vitamin D3) cyanocobalamin (vitamin B-12) 1,000 mcg PO DAILY SUPPLEMENT 10/09/23 12/29/23 History 1,000 mcg capsule dofetilide 500 mcg capsule 500 mcg PO BID AFIB 10/09/23 12/29/23 History (Tikosyn) magnesium 250 mg tablet 250 mg PO BID SUPPLEMENT 10/09/23 12/29/23 History metoprolol succinate 25 mg 12.5 mg PO QPM BLOOD PRESSURE 10/09/23 12/29/23 History tablet,extended release 24 hr metoprolol succinate 25 mg 25 mg PO DAILY PRN BLOOD PRESSURE 10/09/23 12/29/23 History tablet,extended release 24 hr potassium chloride 20 mEq 20 meq PO DAILY PRN SUPPLEMENT 10/09/23 12/27/23 History tablet,extended release (K-Tab) tadalafil 20 mg tablet 20 mg PO BID LUNGS 10/09/23 12/29/23 History ondansetron 4 mg disintegrating 4 mg PO Q8H PRN PRN Nausea #10 tabs 11/07/23 Unknown Rx tablet digoxin 125 mcg (0.125 mg) tablet 125 mcg PO DAILY 04/23/24 Unknown History aspirin 81 mg tablet,delayed 81 mg PO DAILY 05/23/24 Unknown History release Allergy/AdvReac Type Severity Reaction Status Date / Time codeine Allergy Other Verified 05/23/24 01:34 ibuprofen (From Motrin) Allergy Hives Verified 05/23/24 01:34 Iodinated Contrast Media (CT) Allergy Chest Verified 05/23/24 01:34 tightness morphine Allergy Hives Verified 05/23/24 01:34 phenytoin sodium (From Allergy Other Verified 05/23/24 01:34 Dilantin) phenytoin sodium extended Allergy Other Verified 05/23/24 01:34 (From Dilantin) sulfamethoxazole (From Allergy Hives Verified 05/23/24 01:34 Bactrim) trimethoprim (From Bactrim) Allergy Hives Verified 05/23/24 01:34 Family History Father Lung cancer Obesity Aunt Diabetes CAD (coronary artery disease) Mother VSD (ventricular septal defect) Thyroid disorder Brother Leukemia Grandmother Breast cancer Surgical History History of cardiac catheterization History of atrial septal defect repair (~2021) S/P ERCP S/P laparoscopic cholecystectomy Hx of maze procedure Hx of tubal ligation History of bunionectomy Hx of tonsillectomy Social History Smoking Status: Never smoker ROS ROS ED Constitutional Constitutional ED: Denies chills or fever(s) Eyes Eyes: Denies change in vision or diplopia ENT ENT ED: Denies rhinorrhea or sore throat Cardiovascular Cardiovascular: Reports as per HPI, chest pain, lightheadedness, palpitations and racing heartbeat; Denies syncope Respiratory/Chest Respiratory/Chest: Reports dyspnea; Denies cough Gastrointestinal Gastrointestinal: Reports nausea; Denies abdominal pain, diarrhea or vomiting Genitourinary Genitourinary ED: Denies dysuria or hematuria Musculoskeletal Musculoskeletal: Denies back pain or neck pain Integumentary Denies abscess or rash Neurologic Neurologic: Denies headache(s), paresthesias or weakness Psychiatric Psychiatric: Denies anxiety or suicidal thoughts EXAM Physical Exam Const Vital Signs: 05/23/24 01:34 05/23/24 01:34 05/23/24 01:43 Temperature 97.6 F L Temperature Source Oral Pulse Rate 120 H 115 H Pulse Rate [1 (Initial Baseline)] Pulse Rate [2] Pulse Rate [3] Respiratory Rate 18 21 H Respiratory Rate [1 (Initial Baseline)] Respiratory Rate [2] Respiratory Rate [3] Respiratory Effort Normal Non-Labored Blood Pressure 156/93 H Blood Pressure [1 (Initial Baseline)] Blood Pressure [2] Blood Pressure [3] Blood Pressure Mean 114 Pulse Ox 98 99 Oxygen Delivery Method Room Air Oxygen Delivery Method [1 (Initial Baseline)] Oxygen Delivery Method [2] Oxygen Flow Rate (L/min) [2] 05/23/24 01:45 05/23/24 02:00 05/23/24 02:14 Temperature Temperature Source Pulse Rate 119 H 102 H Pulse Rate [1 (Initial Baseline)] Pulse Rate [2] Pulse Rate [3] Respiratory Rate 18 19 H Respiratory Rate [1 (Initial Baseline)] Respiratory Rate [2] Respiratory Rate [3] Respiratory Effort Blood Pressure 133/114 H 123/67 H Blood Pressure [1 (Initial Baseline)] Blood Pressure [2] Blood Pressure [3] Blood Pressure Mean 121 82 Pulse Ox 95 94 Oxygen Delivery Method Room Air Oxygen Delivery Method [1 (Initial Baseline)] Oxygen Delivery Method [2] Oxygen Flow Rate (L/min) [2] 05/23/24 02:14 05/23/24 02:14 05/23/24 02:15 Temperature 97 F L Temperature Source Pulse Rate 126 H Pulse Rate [1 (Initial Baseline)] 123 H Pulse Rate [2] 129 H Pulse Rate [3] 123 H Respiratory Rate 12 Respiratory Rate [1 (Initial Baseline)] 18 Respiratory Rate [2] 23 H Respiratory Rate [3] 17 Respiratory Effort Blood Pressure 131/89 H 137/89 H Blood Pressure [1 (Initial Baseline)] 139/106 H Blood Pressure [2] 134/68 H Blood Pressure [3] 129/51 H Blood Pressure Mean 102 Pulse Ox 97 Oxygen Delivery Method Oxygen Delivery Method [1 (Initial Baseline)] Room Air Oxygen Delivery Method [2] Nasal Cannula Oxygen Flow Rate (L/min) [2] 4 05/23/24 02:15 05/23/24 02:30 05/23/24 03:00 Temperature Temperature Source Pulse Rate 112 H 125 H 111 H Pulse Rate [1 (Initial Baseline)] Pulse Rate [2] Pulse Rate [3] Respiratory Rate 17 14 18 Respiratory Rate [1 (Initial Baseline)] Respiratory Rate [2] Respiratory Rate [3] Respiratory Effort Blood Pressure 137/89 H 131/89 H 139/106 H Blood Pressure [1 (Initial Baseline)] Blood Pressure [2] Blood Pressure [3] Blood Pressure Mean 102 103 117 Pulse Ox 93 98 97 Oxygen Delivery Method Oxygen Delivery Method [1 (Initial Baseline)] Oxygen Delivery Method [2] Oxygen Flow Rate (L/min) [2] 05/23/24 04:00 Temperature Temperature Source Pulse Rate 110 H Pulse Rate [1 (Initial Baseline)] Pulse Rate [2] Pulse Rate [3] Respiratory Rate 17 Respiratory Rate [1 (Initial Baseline)] Respiratory Rate [2] Respiratory Rate [3] Respiratory Effort Blood Pressure 124/70 H Blood Pressure [1 (Initial Baseline)] Blood Pressure [2] Blood Pressure [3] Blood Pressure Mean 88 Pulse Ox 98 Oxygen Delivery Method Room Air Oxygen Delivery Method [1 (Initial Baseline)] Oxygen Delivery Method [2] Oxygen Flow Rate (L/min) [2] Positive well nourished and well developed General Appearance ED: well developed and NAD HEENT Reports moist mucous membranes normocephalic and atraumatic Eyes PERRL and EOMs intact bilaterally Neck full ROM and supple Resp normal respiratory effort and clear to auscultation bilaterally Cardio no murmurs Rhythm: abnormal rhythm irregularly irregular Peripheral Pulses: pulses 2+ throughout GI non-tender and non-distended Auscultation: normoactive bowel sounds Palpation: soft Back/Spine no CVA tenderness General Back: other FROM Extremity normal to inspection General Extremety ED: Negative for edema, pulses abnormal or tenderness General Extremity: Negative for edema or pulses abnormal Neuro oriented x3, CN's II-XII intact bilaterally and no sensory deficits noted Sensorium / Orientation: awake and alert Motor Exam: strength 5/5 throughout Skin no rashes or lesions noted and no wounds Heart Score History: Moderately Suspicious ECG: Nonspecific Repolarization Age: >45 - <65 years Risk Factors: No Risk Factors Troponin: </= Normal Limit Score: 3 MDM MDM MDM Narrative Medical decision making narrative: Given that the patient just went into this and was symptomatic acutely and has been anticoagulated for some time about 2 years, she is a good candidate for cardioversion. We discussed the pros and cons she is amenable to trying that. I gave her midazolam and fentanyl for sedation since she last ate about 5 hours ago, and pretreated her with Zofran. See the procedure note. After the cardioversion attempts, she basically was in atrial flutter at a rate of 125 with a 2: 1 conduction, so I ordered Cardizem. However before she was able to get it, she converted to sinus rhythm at a rate of 76 with a normal blood pressure and then before we were able to repeat her EKG she went back into atrial fibs-flutter in the 140s. Patient states she has a watch that shows she is going in and out of atrial fibrillation all night, but she she usually is not in the 140s like this. Therefore before giving other medications I discussed with cardiology Dr. Quintanilla. He states it is safe to give her Cardizem if needed, however with further observation she is sinus rhythm in the 70s but then a flutter with RVR at 140 some hesitant to give her any AV siena blockers right now since she is tolerating it, although she is having symptoms when she goes into atrial flutter. Cardiology recommends transferring her to facility with EP cardiology if we can get a bed. Patient is amenable to this, she sees [facility] at [facility]. She wants to go there understandably, and does not want to go somewhere else where her nursing informatics specialist does not go, also understandably. She would be on a wait list if needed. [facility] initially told us that they are not able to accept any patients, but I called them and was able to speak with one of their cardiologists Dr. Jimenes who accepts the patient to CCU stepdown. Lab Data Attestation: I reviewed the patient's lab results. Labs: Laboratory Results - last 24 hr 05/23/24 01:42 WBC 7.2 RBC 4.31 Hgb 13.2 Hct 38.2 MCV 88.6 MCH 30.6 MCHC 34.6 RDW Std Deviation 44.0 H RDW Coeff of Jenn 13.9 Plt Count 160 MPV 10.0 Immature Gran % (Auto) 0.800 Neut % (Auto) 63.6 Lymph % (Auto) 24.8 [place] % (Auto) 7.8 Eos % (Auto) 2.4 Baso % (Auto) 0.6 Absolute Neuts (auto) 4.6 Absolute Lymphs (auto) 1.77 Nucleated RBC % 0 Sodium 141 Potassium 3.5 Chloride 108 H Carbon Dioxide 27.0 Anion Gap 6 BUN 18 Creatinine 0.85 Estim Creat Clear Calc 70.72 Est GFR (MDRD) Af Amer 87 Est GFR (MDRD) Non-Af 72 BUN/Creatinine Ratio 21.2 H Glucose 135 H Calcium 9.7 Troponin I High Sens 9 Radiography Diagnostic Testing: Clinical Impression(s) from Imaging Studies Chest X-Ray 05/23/24 02:20 IMPRESSION: No radiographic evidence of acute cardiopulmonary disease. Electronically Signed: Pedro Luis Velásquez MD at 3:43 EDT Reading Location ID and State: [facility] / [place] Tel , Service support , Rhythm Strip Rhythm Strip: Atrial flutter Rate: 110 Ectopy: None EKG Initial EKG: Attestation: I personally reviewed and interpreted this EKG as follows: Interpretation: No Acute Injury Pattern, Atrial Flutter and Non-Specific ST Changes Comments: Variable conduction Prior EKG tracings: available for review Prior: Changed (NSR on 11/07/23) Follow-up EKG: Attestation: I personally reviewed and interpreted this EKG as follows: Interpretation: No Acute Injury Pattern and Atrial Flutter Management Discussion w/another healthcare provider: Fitting Room Inspector (Cardiology Dr. Quintanilla; [facility] cardiology Dr. Jimenes) Procedures Procedural Sedation 1 (Initial Baseline): Consent Signed: Yes Any Problems With Anesthesia: No You/Your family experience fever (hyperthermia) w/anesthesia: No Sedation medication: Versed Dose: 4 Route: IV Total Moderate Sedation Units: 14 Maliampati Score: Class II ASA Classification: II Comment:: On monitor with prophylactic nasal cannula oxygenation and IV fluids, end-tidal CO2 monitoring, airway equipment at the bedside. Tolerated well with no complications. Other Procedures Procedure(s): Electrocardioversion: After informed consent for the patient and moderate sedation as above, patient was in atrial flutter and with synchronized biphasic cardioversion, we initially attempted 20 J, this was unsuccessful, and she was still in atrial flutter with variable conduction. I then attempted with 200 J since the patient was still asleep under the influence of midazolam, and it seemed to have worked initially but then she was in and out of atrial flutter to sinus rhythm continuously after that so no further attempts were made. Otherwise, no complications. Critical Care Time Critical Care Time: Yes Critical care time (excluding procedures): 30-74 minutes (38 min), Including time spent:, Discussing w/Patient &/or Family/[employer], Discussing w/Consultants, Arranging Admission or Transfer and Performing Direct Patient Care at Bedside Discharge Plan Triage Chief Complaint: Palpitations ED Provider: Bhargav Galvan Dx/Rx/DC Orders Clinical Impression: Atrial flutter with rapid ventricular response, Chest pain Prescriptions: No Action digoxin 125 mcg (0.125 mg) tablet 125 mcg PO DAILY Xarelto 20 mg Tablet 20 mg PO QPM Rx Instructions: TAKE ONE TABLET BY MOUTH ONCE DAILY. MUST ADMINISTER WITH MEAL. cyanocobalamin (vitamin B-12) 1,000 mcg capsule 1,000 mcg PO DAILY dofetilide [Tikosyn] 500 mcg capsule 500 mcg PO BID tadalafil 20 mg tablet 20 mg PO BID metoprolol succinate 25 mg tablet extended release 24 hr 25 mg PO DAILY PRN (Reason: BLOOD PRESSURE) metoprolol succinate 25 mg tablet extended release 24 hr 12.5 mg PO QPM magnesium 250 mg tablet 250 mg PO BID cholecalciferol (vitamin D3) [Vitamin D3] 25 mcg (1,000 unit) tablet 25 mcg PO DAILY potassium chloride [K-Tab] 20 mEq tablet extended release 20 meq PO DAILY PRN (Reason: SUPPLEMENT ) Patient Comments: PT STATES THEY TAKE ONE POTASSIUM CHLORIDE 20MEQ ONCE DAILY ONLY IF THEY TAKE A DOSE OF BUMETANIDE ( OF 01-17-23) Rx Instructions: TAKE ONE TABLET BY MOUTH ONCE DAILY ONLY IF BUMETANIDE IS TAKEN buspirone 5 mg tablet 5 mg PO TID PRN (Reason: ANXIETY ) ondansetron [ondansetron] 4 mg tablet,disintegrating 4 mg PO Q8H PRN PRN (Reason: Nausea) Qty: 10 0RF aspirin 81 mg tablet,delayed release (DR/EC) 81 mg PO DAILY Primary Care Provider: Lina Zendejas Referrals: Lina Zendejas MD [Primary Care Provider] - Print Language: Ukrainian Disposition Disposition: Acute Care Hospital Discharge Location: [facility]
--- NOTE | 2024-05-23 02:20 | RAD_ITS ---
INDICATION: chest pain EXAMINATION/TECHNIQUE: X-RAY - XR Chest 1 View COMPARISON: October 12, 2023. FINDINGS: LINES/DEVICES: None. LUNGS: No consolidation, edema or effusion. No pneumothorax. MEDIASTINUM AND CARDIOVASCULAR STRUCTURES: Cardiac silhouette not enlarged. Left atrial appendage clip. BONES AND SOFT TISSUES: Unremarkable. RAD/Chest 1 View (Portable) IMPRESSION: No radiographic evidence of acute cardiopulmonary disease. Electronically Signed: Pedro Luis Velásquez MD at 3:43 EDT ,
[2024-05-23 02:31] LABS: Absolute Lymphocyte Count 1.77 X10^3/uL (0.83-4.51); Absolute Neutrophil Count 4.6 X10^3/uL (2.0-7.7); Basophil# 0.04 X10^3/uL; Basophil% 0.6 % (0-1); Eosinophil# 0.17 X10^3/uL; Eosinophils% 2.4 % (0-5); Hematocrit 38.2 % (37-47); Hemoglobin 13.2 g/dL (12.0-15.0); Lymphocyte # 1.77 X10^3/ul (0.83-4.51); Lymphocyte % 24.8 % (19-41); Mean Corp Hgb Conc 34.6 g/dL (32-36); Mean Corpuscular Hgb 30.6 pg (27.0-32.0); Mean Corpuscular Volume 88.6 fL (81-99); Monocyte# 0.56 X10^3/uL; Monocyte% 7.8 % (0-10); NRBC Flagged by Analyzer 0 % (0-5); Neutrophil # 4.55 X10^3/uL (2.7-7.7); Neutrophil % 63.6 % (47-70); Platelet Count 160 K/mm3 (150-450); RBC Distribution Width CV 13.9 % (11.6-14.6); Red Blood Count 4.31 M/mm3 (4.2-5.4); White Blood Count 7.2 K/mm3 (4.4-11.0)
[2024-05-23 02:55] LABS: Anion Gap 6 (5-15); BUN 18 mg/dL (7-18); BUN/Creat Ratio 21.2 RATIO (10-20); Calcium,Total 9.7 mg/dL (8.5-10.1); Chloride 108 mmol/L (98-107); Creatinine, Serum 0.85 mg/dL (0.55-1.02); EST Glomerular Filtration Rate 72 mL/min (>60); Est Glom Filt Rate - Afr Amer 87 mL/min (>60); Estimated Creatinine Clearance 70.72 ml/min; Glucose 135 mg/dL (74-106); Potassium 3.5 mmol/L (3.5-5.1); Sodium Level 141 mmol/L (136-145); Troponin-I HS (w/2H Reflex) 9 pg/mL (3.0-54.0)
[2024-05-23] MEDS: 0.9% Normal Saline (1000mL) 1,000 ML 150 ML IV (03:06)
[2024-05-23] MEDS: Midazolam 2 MG/2 ML Syringe 3 MG IV (03:07)
[2024-05-23] MEDS: Ondansetron 4 MG/2 ML Vial IV (03:07)
[2024-05-23] MEDS: fentaNYL 100 MCG/2 ML Ampul 50 MCG IV (03:07)
--- NOTE | 2024-05-23 03:39 | EKG12_ITS ---
Test Reason : RHYTHM CHANGE Blood Pressure : / mmHG Vent. Rate : 126 BPM Atrial Rate : 252 BPM P-R Int : 000 ms QRS Dur : 066 ms QT Int : 330 ms P-R-T Axes : 084 079 004 degrees QTc Int : 477 ms Atrial flutter with 2:1 A-V conduction Cannot rule out Inferior infarct , age undetermined Abnormal ECG Confirmed by MARIELY THAKKAR ([id number]), editor city PABLO CHANDLER ([id number]) on 05/26/2024 8:21:20 AM Referred By: Confirmed By:MARIELY THAKKAR
[2024-05-23 04:22] LABS: Reflex Troponin-HS? (from REC) Y
[2024-05-23 05:42] LABS: Troponin-I HS 16 pg/mL (3.0-54.0)
== END 2024-05-23 09:40 | disposition short-term general hospital (02) ==
PROVIDERS: Emergency Provider Emergency Medicine; PCP Internal Medicine; Visit Provider Emergency Medicine
DX: I48.92 Unspecified atrial flutter (principal); I48.0 Paroxysmal atrial fibrillation; R07.89 Other chest pain; I10 Essential (primary) hypertension; Z79.01 Long term (current) use of anticoagulants; Z79.899 Other long term (current) drug therapy
CPT/HCPCS: 71045; 80048; 84484; 85025; 92960; 93005; 96361; 96374; 96375; 99152; 99285; J7030; A4216; J2405

== ENCOUNTER 2024-07-16 01:23 | Emergency (ER) | payer OTHER, SELFPAY ==
[2024-07-16] VITALS (8 sets, daily range): BP systolic 103–141; BP diastolic 45–83; PULSE 70–114; RESP 16–19; TEMP 36.9–38; O2SAT 93–100; BMI 29.7
--- NOTE | 2024-07-16 01:32 | EKG12_ITS ---
Test Reason : RHYTHM CONVERSION Blood Pressure : / mmHG Vent. Rate : 070 BPM Atrial Rate : 070 BPM P-R Int : 180 ms QRS Dur : 072 ms QT Int : 410 ms P-R-T Axes : 041 078 034 degrees QTc Int : 442 ms Normal sinus rhythm Normal ECG Confirmed by RODY CURRAN, KHADAR ([id number]), editor managing director ROBIN ROLAND ([id number]) on 07/16/2024 9:27:20 AM Referred By: Confirmed By:KHADAR FINE MD
--- NOTE | 2024-07-16 01:34 | CT_ITS ---
STUDY: CT ABDOMEN AND PELVIS WITHOUT CONTRAST REASON FOR EXAM: Female, 63 years old patient with diarrhea. RADIATION DOSAGE (If Supplied By Facility): CTDIvol = ( 10.16 ) mGy, DLP = ( 522.83 ) mGycm TECHNIQUE: Transaxial images were obtained from the dome of the diaphragm to the symphysis pubis without oral contrast, and without intravenous contrast. Sagittal and coronal images were reconstructed. Individualized dose optimization techniques were used for this CT. COMPARISON: None. FINDINGS: The visualized lung bases are unremarkable. The visualized portions of the heart are within normal limits. Normal liver. There are surgical clips in the gallbladder fossa consistent with a prior cholecystectomy. There is moderate splenomegaly. Normal pancreas. Normal bilateral adrenal glands. Normal right kidney. Normal left kidney. Normal visualized stomach. There is no obvious dilated bowel, ascites or pneumoperitoneum. There is a large amount of fluid in the small bowel suggesting possible infectious or inflammatory enteritis. There is liquid stool in the colon consistent with diarrhea and possible infectious or inflammatory colitis. The appendix is visualized and appears normal. Normal abdominal aorta. Inferior vena cava is slitlike suggesting hypovolemia and/or dehydration. Normal retroperitoneum. Normal urinary bladder. Normal visualized uterus. There appear to be small periumbilical ventral hernias containing fat. There are multifocal degenerative changes of the visualized spine. CT/Abdomen/Pelvis without Cont IMPRESSION: 1. Findings suggest sequela of infectious or inflammatory enteritis and possible colitis. 2. Moderate splenomegaly. Electronically Signed: Lyn Bell MD at 3:46 EDT ,
--- NOTE | 2024-07-16 01:36 | EDS_ITS ---
HPI History of Present Illness Chief Complaint: Nausea/Vomiting/Diarrhea Narrative Narrative: 63-year-old female past medical history of atrial fibrillation, on Tikosyn, takes Cardizem or is supposed to as needed presents with multiple somatic complaints. She states that yesterday, she began having nausea, vomiting, and diarrhea. She felt flushed and feverish as well. States she is having loose stool, multiple episodes and feels dehydrated. Additionally, she had nausea and vomiting up to 5 times. She denies any cough or difficulty breathing, but as she was getting dressed to come to the emergency department, she states she started feeling chest pain. No exacerbating or alleviating factors. [facility] Medical History Wears glasses Depression Anxiety Arthritis Fatty liver Easy bruising Restless legs Migraine headache History of IBS GERD (gastroesophageal reflux disease) CPAP (continuous positive airway pressure) dependence Chronic cough Shortness of breath on exertion Non-smoker History of echocardiogram History of stress test Hypertension Cardiology follow-up encounter History of atrial fibrillation A-fib Pulmonary HTN Sleep apnea Home Medications ?Medication ?Instructions ?Recorded ?Last Taken ?Type rivaroxaban 20 mg tablet (Xarelto) 20 mg PO QPM BLOOD THINNER 03/14/22 12/25/23 History buspirone 5 mg tablet 5 mg PO TID PRN ANXIETY 10/09/23 12/29/23 History cholecalciferol (vitamin D3) 25 25 mcg PO DAILY SUPPLEMENT 10/09/23 12/29/23 History mcg (1,000 unit) tablet (Vitamin D3) cyanocobalamin (vitamin B-12) 1,000 mcg PO DAILY SUPPLEMENT 10/09/23 12/29/23 History 1,000 mcg capsule dofetilide 500 mcg capsule 500 mcg PO BID AFIB 10/09/23 12/29/23 History (Tikosyn) magnesium 250 mg tablet 250 mg PO BID SUPPLEMENT 10/09/23 12/29/23 History potassium chloride 20 mEq 20 meq PO DAILY PRN SUPPLEMENT 10/09/23 12/27/23 History tablet,extended release (K-Tab) tadalafil 20 mg tablet 20 mg PO BID LUNGS 10/09/23 12/29/23 History digoxin 125 mcg (0.125 mg) tablet 125 mcg PO DAILY 04/23/24 Unknown History aspirin 81 mg chewable tablet 1 tab PO DAILY 10/24/24 Unknown History cefdinir 300 mg capsule 300 mg PO BID #14 caps 07/16/24 Unknown Rx diltiazem HCl 30 mg tablet 30 mg PO Q6H PRN afib 07/16/24 Unknown History (Cardizem) metronidazole 500 mg tablet 500 mg PO TID #21 tabs 07/16/24 Unknown Rx ondansetron 4 mg disintegrating 4 mg PO Q8H PRN nausea and 07/16/24 Unknown Rx tablet vomiting #12 tabs Allergy/AdvReac Type Severity Reaction Status Date / Time codeine Allergy Other Verified 07/16/24 01:24 ibuprofen (From Motrin) Allergy Hives Verified 07/16/24 01:24 Iodinated Contrast Media (CT) Allergy Chest Verified 07/16/24 01:24 tightness morphine Allergy Hives Verified 07/16/24 01:24 phenytoin sodium (From Allergy Other Verified 07/16/24 01:24 Dilantin) phenytoin sodium extended Allergy Other Verified 07/16/24 01:24 (From Dilantin) sulfamethoxazole (From Allergy Hives Verified 07/16/24 01:24 Bactrim) trimethoprim (From Bactrim) Allergy Hives Verified 07/16/24 01:24 Family History Father Lung cancer Obesity Aunt Diabetes CAD (coronary artery disease) Mother VSD (ventricular septal defect) Thyroid disorder Brother Leukemia Grandmother Breast cancer Surgical History History of cardiac catheterization History of atrial septal defect repair (~2021) S/P ERCP S/P laparoscopic cholecystectomy Hx of maze procedure Hx of tubal ligation History of bunionectomy Hx of tonsillectomy Social History Smoking Status: Never smoker ROS ROS ED ROS Narrative Constitutional: Positive fever, no chills. Feels dehydrated. HEENT: No sore throat. No neck pain. No loss of vision. No rhinorrhea. Cardiovascular: Positive chest pain. No palpitations. No pedal edema. Respiratory: No cough, no shortness of breath. Abdominal: No abdominal pain. 5 episodes of nausea and vomiting. Multiple episodes of diarrhea. Genitourinary: No dysuria. No hematuria. Musculoskeletal: No myalgias. No arthralgias. Neurologic: No headaches. No dizziness. No lightheadedness. Skin: No rash. No change in color. EXAM Physical Exam Narrative Exam Narrative: Temperature 100.4 ?F. Vital signs noted. Nontoxic-appearing. Cardiovascular examination reveals an irregularly irregular tachycardia. Lungs are clear to auscultation bilaterally, no wheezing or rales. Abdomen is soft and nontender with normal active bowel sounds. Neurological examination is nonfocal and nonlateralizing. Const Vital Signs: 07/16/24 01:24 07/16/24 01:26 07/16/24 01:32 Temperature 100.4 F H 100.4 F H Temperature Source Oral Oral Pulse Rate 108 H 108 H Respiratory Rate 18 18 Blood Pressure 141/83 H 141/83 H Blood Pressure Mean 102 102 Pulse Ox 99 100 95 Oxygen Delivery Method Room Air Room Air Room Air 07/16/24 02:26 07/16/24 03:00 07/16/24 03:24 Temperature 100.4 F H 99.8 F H Temperature Source Oral Oral Pulse Rate 114 H 83 70 Respiratory Rate 19 H 16 16 Blood Pressure 105/50 L 103/46 L 105/45 L Blood Pressure Mean 68 65 65 Pulse Ox 93 94 94 Oxygen Delivery Method Room Air Room Air Room Air 07/16/24 04:00 Temperature 98.6 F Temperature Source Oral Pulse Rate 105 H Respiratory Rate 18 Blood Pressure 110/62 Blood Pressure Mean 78 Pulse Ox 94 Oxygen Delivery Method Room Air MDM MDM MDM Narrative Medical decision making narrative: Differential diagnosis includes colitis versus diverticulitis versus gastroenteritis. Regarding her chest pain, she may have ACS, or her chest pain may be secondary to atrial fibrillation with rapid ventricular response versus pneumonia versus pneumothorax. Initial EKG interpreted by myself independently demonstrates atrial flutter with variable AV block at [address] changes. No STEMI. I reviewed her laboratory work and she has normal white count of 6.9 with hemoglobin 13.8, hematocrit 39.4, platelet count normal at 169. Sodium normal at 136 with potassium 3.5, chloride 107, BUN normal at 14 with creatinine 1.0. Glucose is elevated at 124 but she has a normal anion gap of 9. Lactic acid is normal at 0.8. She is not really meeting any SIRS cr iteria because I think that her tachycardia is secondary to A-fib with RVR. Initial high-sensitivity troponin is 6. Total bili slightly elevated at 1.4 which I think is nonspecific with normal AST of 33 and ALT of 41. While urinalysis shows WBCs 25-50, there are 10-25 squamous epithelial cells. Her urine culture is currently pending. She had been given Cardizem 10 mg intravenously, and cardioverted on her own. Repeat EKG interpreted by myself independently demonstrates normal sinus rhythm at 70 bpm without ectopy or acute ST changes. No STEMI. She was given her dose of 30 mg of oral Cardizem standard release as she is supposed to take this twice a day as needed for heart rate over 100. This was given to her as a more long- acting agent for rate control. Chest x-ray 1 view interpreted by myself independently shows no evidence of pneumonia or pneumothorax. I reviewed the radiology report which confirms my independent interpretation. Additionally, I reviewed the radiology report of the CT of the abdomen and pelvis which shows enteritis and possibly colitis. While could be infectious versus inflammatory, I will start her on antibiotics in the form of cefdinir and Flagyl. She was also given her first doses here and prescriptions were written to take for the next week. She was also given a prescription for Zofran to help with her nausea and vomiting. I did discuss with her observation, but she declined and is motivated for discharge. She will return with inability to take her antibiotics, new or worsening symptoms. She was referred to a new primary care provider and gastroenterology as well. Disposition is discharged home in stable condition. History & Record Review Discussion w/independent historian: Patient Lab Data Attestation: I reviewed the patient's lab results. Labs: Laboratory Results - last 24 hr 07/16/24 07/16/24 07/16/24 01:35 01:45 02:49 WBC 6.9 RBC 4.50 Hgb 13.8 Hct 39.4 MCV 87.6 MCH 30.7 MCHC 35.0 RDW Std Deviation 42.3 RDW Coeff of Jenn 13.6 Plt Count 169 MPV 10.1 Immature Gran % (Auto) 0.600 Neut % (Auto) 80.0 H Lymph % (Auto) 12.3 L [place] % (Auto) 6.7 Eos % (Auto) 0.0 Baso % (Auto) 0.4 Absolute Neuts (auto) 5.5 Absolute Lymphs (auto) 0.85 Nucleated RBC % 0 Sodium 136 Potassium 3.5 Chloride 107 Carbon Dioxide 21.0 Anion Gap 9 BUN 14 Creatinine 1.00 Estim Creat Clear Calc 61.33 Est GFR (MDRD) Af Amer 72 Est GFR (MDRD) Non-Af 60 BUN/Creatinine Ratio 14.0 Glucose 124 H Lactic Acid 0.8 Calcium 8.8 Total Bilirubin 1.40 H AST 33 ALT 41 Alkaline Phosphatase 123 H Troponin I High Sens 6 Total Protein 7.4 Albumin 3.8 Globulin 3.6 Albumin/Globulin Ratio 1.1 Lipase 34 Urine Color Yellow Urine Clarity Clear Urine pH 6.0 Ur Specific [place] 1.020 Urine Protein 30 H Urine Glucose (UA) Normal Urine Ketones 15 H Urine Occult Blood 25 H Urine Nitrite Negative Urine Bilirubin 1 H Urine Urobilinogen Normal Ur Leukocyte Esterase 500 H Urine RBC 5-10 SEEN Urine WBC 25-50 SEEN Ur Squamous Epith Cells 10-25 SEEN Urine Bacteria 4+ Urine Mucus 1+ Radiography Diagnostic Testing: Clinical Impression(s) from Imaging Studies Abdomen/Pelvis CT 07/16/24 01:34 IMPRESSION: 1. Findings suggest sequela of infectious or inflammatory enteritis and possible colitis. 2. Moderate splenomegaly. Electronically Signed: Lyn Bell MD at 3:46 EDT , Chest X-Ray 07/16/24 02:10 IMPRESSION: No significant interval change. No radiographic evidence of acute cardiopulmonary disease. Electronically Signed: Aaron Benedict MD at 3:39 EDT , Discharge Plan Triage Chief Complaint: Nausea/Vomiting/Diarrhea ED Provider: Cosmo Quick Dx/Rx/DC Orders Clinical Impression: Enteritis, Colitis, Atrial flutter Instructions: ED Understanding Colitis, ED Atrial Flutter Prescriptions: New cefdinir 300 mg capsule 300 mg PO BID Qty: 14 0RF metronidazole 500 mg tablet 500 mg PO TID Qty: 21 0RF ondansetron 4 mg tablet,disintegrating 4 mg PO Q8H PRN (Reason: nausea and vomiting) Qty: 12 0RF No Action digoxin 125 mcg (0.125 mg) tablet 125 mcg PO DAILY Xarelto 20 mg Tablet 20 mg PO QPM Rx Instructions: TAKE ONE TABLET BY MOUTH ONCE DAILY. MUST ADMINISTER WITH MEAL. cyanocobalamin (vitamin B-12) 1,000 mcg capsule 1,000 mcg PO DAILY dofetilide [Tikosyn] 500 mcg capsule 500 mcg PO BID tadalafil 20 mg tablet 20 mg PO BID magnesium 250 mg tablet 250 mg PO BID cholecalciferol (vitamin D3) [Vitamin D3] 25 mcg (1,000 unit) tablet 25 mcg PO DAILY potassium chloride [K-Tab] 20 mEq tablet extended release 20 meq PO DAILY PRN (Reason: SUPPLEMENT ) Patient Comments: PT STATES THEY TAKE ONE POTASSIUM CHLORIDE 20MEQ ONCE DAILY ONLY IF THEY TAKE A DOSE OF BUMETANIDE ( OF 10-09-22) Rx Instructions: TAKE ONE TABLET BY MOUTH ONCE DAILY ONLY IF BUMETANIDE IS TAKEN buspirone 5 mg tablet 5 mg PO TID PRN (Reason: ANXIETY ) aspirin 81 mg tablet,chewable 1 tab PO DAILY diltiazem HCl [Cardizem] 30 mg tablet 30 mg PO Q6H PRN (Reason: afib) Primary Care Provider: Lina Zendejas Referrals: Karthikeyan Beatty MD [Med Staff - Hotel Room Attendant] - 3-5 Days if not improving Lina Zendejas MD [Primary Care Provider] - 3-5 Days if not improving Roberto Carlos Waite DO [Med Staff - Active Staff] - As Needed Activity Restrictions/Additional Instructions: Return with inability to take antibiotics, intractable nausea and vomiting, new or worsening symptoms. Print Language: Russian Disposition Disposition: Home, Self Care
[2024-07-16 01:41] LABS: Absolute Lymphocyte Count 0.85 X10^3/uL (0.83-4.51); Absolute Neutrophil Count 5.5 X10^3/uL (2.0-7.7); Basophil# 0.03 X10^3/uL; Basophil% 0.4 % (0-1); Hematocrit 39.4 % (37-47); Hemoglobin 13.8 g/dL (12.0-15.0); Lymphocyte # 0.85 X10^3/ul (0.83-4.51); Lymphocyte % 12.3 % (19-41); Mean Corpuscular Hgb 30.7 pg (27.0-32.0); Mean Corpuscular Volume 87.6 fL (81-99); Mean Platelet Vol. 10.1 fl (6.2-12.0); Monocyte# 0.46 X10^3/uL; Monocyte% 6.7 % (0-10); NRBC Flagged by Analyzer 0 % (0-5); Neutrophil # 5.51 X10^3/uL (2.7-7.7); Platelet Count 169 K/mm3 (150-450); RBC Distribution Width CV 13.6 % (11.6-14.6); RBC Distribution Width SD 42.3 fl (35.1-43.9); White Blood Count 6.9 K/mm3 (4.4-11.0)
[2024-07-16] MEDS: dilTIAZem 25 MG/5 ML Vial 10 MG IV BOLUS (01:48)
[2024-07-16] MEDS: Acetaminophen 325 MG Tablet 650 MG PO (01:48)
[2024-07-16 02:05] LABS: ALB/GLOB Ratio 1.1 RATIO (0.9-2.4); AST(SGOT) 33 U/L (15-37); Alanine Aminotransfer ALT/SGPT 41 U/L (13-56); Albumin, Serum 3.8 g/dL (3.2-5.0); Alkaline Phosphatase 123 U/L (45-117); Anion Gap 9 (5-15); BUN 14 mg/dL (7-18); Calcium,Total 8.8 mg/dL (8.5-10.1); Chloride 107 mmol/L (98-107); EST Glomerular Filtration Rate 60 mL/min (>60); Est Glom Filt Rate - Afr Amer 72 mL/min (>60); Estimated Creatinine Clearance 61.33 ml/min; Globulin 3.6 g/dL (2.2-4.2); Glucose 124 mg/dL (74-106); Lipase 34 U/L (13-75); Potassium 3.5 mmol/L (3.5-5.1); Protein, Total 7.4 g/dL (6.4-8.2); Sodium Level 136 mmol/L (136-145); Troponin-I HS 6 pg/mL (3.0-54.0)
--- NOTE | 2024-07-16 02:10 | RAD_ITS ---
EXAM: XR CHEST, 1 VIEW CLINICAL INDICATION: Fever TECHNIQUE: Frontal view of the chest. COMPARISON: Previous chest radiographs of 05/23/2024 and 10/12/2023. FINDINGS: LUNGS AND PLEURAL SPACES: Curvilinear atelectasis or scarring within the left mid to lower lung. No consolidation or edema. No pneumothorax. No effusion. HEART: Unremarkable. Cardiac silhouette not enlarged. Normal pulmonary vasculature. Left atrial appendage clamp again noted. MEDIASTINUM: Thoracic aorta remains minimally elongated and calcific. No mediastinal widening. BONES/JOINTS: Unremarkable. No acute fracture. SOFT TISSUES: Unremarkable. RAD/Chest 1 View (Portable) IMPRESSION: No significant interval change. No radiographic evidence of acute cardiopulmonary disease. Electronically Signed: Aaron Benedict MD at 3:39 EDT ,
--- OUTSIDE RECORDS SUMMARY | 2024-07-16 02:15 | XMS RPT_ITS | CCD ---
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 Name Role Phone RODOCOY, LINA Unavailable Unavailable RODOCOY, LINA Unavailable Unavailable HLIVKO, LOLIS Unavailable TIMUR, CHAD Unavailable PODUGU, PARAG Unavailable RODOCOY, LINA Unavailable Unavailable RODOCOY, LINA Unavailable Unavailable HLIVKO, LOLIS Unavailable TIMUR, CHAD Unavailable PODUGU, PARAG Unavailable JEANNETTEY, LINA Unavailable Unavailable RODOCOY, LINA Unavailable Unavailable HLIVKO, LOLIS Unavailable TIMUR, CHAD Unavailable PODUGU, PARAG Unavailable Lina Zendejas MD Primary Care Provider 1( [phone] RODOCOY, LINA Unavailable Unavailable RODOCOY, LINA Unavailable Unavailable HLIVKO, LOLIS Unavailable TIMUR, CHAD Unavailable PODUGU, PARAG Unavailable RODOCOY, LINA Unavailable Unavailable RODOCOY, LINA Unavailable Unavailable HLIVKO, LOLIS Unavailable TIMUR, CHAD Unavailable PODUGU, PARAG Unavailable LINA ZENDEJAS MD Primary Care Physician Nohelia Zabala Unavailable Unavailable Carley Lucio Attending Unavailable Rodocoy, Lina A Primary Care Unavailable Aashish, Lina A Attending Unavailable Rodocoy, Lina A Primary Care Unavailable Rodocoy, Lina A Attending Unavailable Rodocoy, Lina A Primary Care Unavailable ReppClement Attending Unavailable Rodocoy, Lina A Primary Care Unavailable RepClement brown Attending Unavailable Rodocoy, Lina A Primary Care Unavailable Hank Mcmullen Attending Unavailable Rodocoy, Lina A Primary Care Unavailable Giovanna Feliciano Attending Unavailable Rodocoy, Lina A Primary Care Unavailable RODOCOY, LINA Unavailable Unavailable RODOCOY, LINA Unavailable Unavailable HLIVKO, LOLIS Unavailable UTLAMARIELA Cardoza Unavailable CARY, NIHAD Unavailable Lina Zendejas MD Primary Care Provider RODOCOY, LINA Unavailable Unavailable RODOCOY, LINA Unavailable Unavailable HLIVKO, LOLIS Unavailable MARIELA MAYBERRY Unavailable CARY, NIHAD Unavailable RODOCOY, LINA Unavailable Unavailable RODOCOY, LINA Unavailable Unavailable HLIVKO, LOLIS Unavailable MARIELA MAYBERRY Unavailable CARY, NIHAD Unavailable RODOCOY, LINA Unavailable Unavailable RODOCOY, LINA Unavailable Unavailable HLIVKO, LOLIS Unavailable MARIELA MAYBERRY Unavailable CARY, NIHAD Unavailable Lina Zendejas MD Primary Care Provider JEANNETTEY, LINA LIZZETH Primary Care Unavailable RODOCOY, LINA LIZZETH Primary Care Unavailable ERIKA GARCIA Referring Unavailable RODOCOY, LINA LIZZETH Primary Care Unavailable RODOCOY, LINA Unavailable Unavailable RODOCOY, LINA Unavailable Unavailable HLIVKO, LOLIS Unavailable MARIELA MAYBERRY Unavailable CARY, NIHAD Unavailable RODOCOY, LINA Unavailable Unavailable RODOCOY, LINA Unavailable Unavailable HLIVKO, LOLIS Unavailable MARIELA MAYBERRY Unavailable CARY, NIHAD Unavailable RODOCOY, LINA Unavailable Unavailable RODOCOY, LINA Unavailable Unavailable HLIVKO, LOLIS Unavailable SHAWANDA MARIELA Unavailable CARY, NIHAD Unavailable RODOCOY, LINA Unavailable Unavailable RODOCOY, LINA Unavailable Unavailable HLIVKO, LOLIS Unavailable SHAWANDA, MARIELA Unavailable CARY, NIHAD Unavailable RODOCOY, LINA Unavailable Unavailable RODOCOY, LINA Unavailable Unavailable HLIVKO, LOLIS Unavailable SUMITSAHRASony, MARIELA Unavailable CARY, NIHAD Unavailable RODOCOY, LINA Unavailable Unavailable RODOCOY, LINA Unavailable Unavailable HLIVKO, LOLIS Unavailable ARJIN, MARIELA Unavailable CARY, NIHAD Unavailable Kelly Mares S Unavailable Unavailable RICHARD GILL Attending Unavailable AASHISH CURRAN, LINA Primary Care Unavailable JACY RODRIGUEZ Attending Marylou solomon ZENDEJAS MD, LINA Primary Care Unavailable GUSTAVO CURRAN, DR JAVIER Damon Attending Unavailramon ZENDEJAS MD, LINA Primary Care Unavailable AASHISH CURRAN, LINA Primary Care Unavailable HANK MCMULLEN MD Attending Unavailable KEMI CURRAN, HANK Consulting Unavailable SOPHIA BAIRD MD Consulting Unavailable JUSTIN MORILLO MD Consulting Unavailramon ZENDEJAS MD, LINA Primary Care Unavailable MARIELA CURRAN, DR MOTA Attending Unavailable MARIELA CURRAN, DR MOTA Admitting Unavailable MACI HARDY Consulting Unavailable DR GEOFFREY DEWEY MD Attending Unavailable AASHISH CURRAN, LINA Primary Care Unavailable MARIELA CURRAN, DR MOTA Admitting Unavailable JUSTIN MORILLO Consulting Unavailable MACI HARDY MD Consulting Unavailable Lina Zendejas MD Lizzeth Primary Care Provider Allergies Allergy Classification Reported Allergen(s) Allergy Type Date of Onset Reaction(s) Facility Furosemide (1 source) Furosemide; Translations: [LASIX] Drug Allergy rash IN [facility]. Work Phone: NSAIDs (1 source) Ibuprofen; Translations: [MOTRIN] [facility] [employer] Work Phone: Opioid Agonists (3 sources) Codeine; Translations: [CODEINE] [facility] Work Phone: Sulfamethoxazole / Trimethoprim (1 source) Sulfamethoxazole / Trimethoprim; Translations: [BACTRIM] Drug Allergy rash [place] [employer] Work Phone: (20 sources) Codeine; Translations: [CODEINE] Drug Allergy Other: See Comments, Hallucinations (finding) (14 sources) HYDROmorphone; Translations: [DILAUDID] Drug Allergy vomiting [place] [employer], [facility] Work Phone: (14 sources) Ibuprofen; Translations: [MOTRIN] Drug Allergy [facility] [employer], [facility] Work Phone: (20 sources) Morphine; Translations: [MORPHINE] Drug Allergy 016 [facility] (14 sources) Sulfamethoxazole / Trimethoprim; Translations: [BACTRIM] Drug Allergy rash [place] [employer], [facility] Work Phone: (15 sources) Triiodobenzoic Acids; Translations: [IODINATED CONTRAST MEDIA (SUBSTANCE)] Allergy to substance anaphylaxis [facility] [employer], [facility] Work Phone: (8 sources) HYDROmorphone; Translations: [HYDROMORPHONE (BULK)] Drug Allergy Other: See Comments (20 sources) Ibuprofen; Translations: [ibuprofen] Drug Allergy [facility] (8 sources) Iodine; Translations: [IODINE] Drug Allergy [facility] (20 sources) Sulfamethoxazole / Trimethoprim; Translations: [sulfamethoxazole-t rimethoprim] Drug Allergy 016 Hives, Eruption of skin (disorder), Itching (finding) (20 sources) HYDROmorphone; Translations: [hydromorphone] Drug Allergy Nausea and vomiting (disorder), Diarrhea (finding), Dizziness (finding) [facility] (18 sources) Sulfonamides (Antibiotic); Translations: [sulfa drugs] Drug allergy Itching (finding), Eruption of skin (disorder) [facility] (20 sources) Cigarette smoke (substance) Allergy to substance Watery eye (finding) [facility] (20 sources) iodinated radiocontrast dyes; Translations: [iodinated radiocontrast agents] [facility] (1 source) Codeine Drug Allergy [facility] (1 source) HYDROmorphone Drug Allergy [facility] (1 source) Ibuprofen Drug Allergy [facility] (1 source) Morphine Drug Allergy [facility] (1 source) Sulfamethoxazole Drug Allergy [facility] (1 source) Iodinated Diagnostic Agents Drug allergy (disorder) [facility] (8 sources) predniSONE; Translations: [prednisone] Drug Allergy [facility] Comment on above: states this was PO f or IVP dye allergy premed. states her heart rate was elevated requiring multiple doses of metoprolol (5 sources) Furosemide; Translations: [LASIX] Drug Allergy rash [employer] Work Phone: (2 sources) Sulfonamide; Translations: [sulfa drugs] Drug allergy Itching (finding), Eruption of skin (disorder) [facility] Medications Current Medications Medication Drug Class(es) Dates Sig (Normalized) Sig (Original) acetaminophen 325 mg oral capsule (17 sources) Start: 05-06-2023 Tylenol 325 mg oral capsule Dose : 650 mg =, Oral, q4h, PRN Pain, scale 1-6, 0 Refill(s) Start Date: 05/06/23 Status: Ordered End: 08-13-2019 take 1 tablet by mouth once daily Tylenol 325 mg tablet Take 1 tablet every day by oral route. 08/13/2019 completed Not Available Not Available Not Available [id number] 200 actuat albuterol 0.09 mg/actuat metered dose inhaler (15 sources) beta2-Adrenergic Agonist ProAir HFA 90 mcg/actuation aerosol inhaler Inhale 2 puffs as needed by inhalation route. active Not Available Not Available Not Available aspirin 81 mg chewable tablet (20 sources) Platelet Aggregation Inhibitor, Nonsteroidal Anti-inflammatory Drug Start: 09-09-2023 aspirin 81 mg oral tablet, chewable Dose : 81 mg = 1 tab(s), Oral, Daily, # 30 tab(s), 3 Refill(s), Pharmacy: [facility], 165.1, cm, 07/03/23 16:16:00 EDT, Height, kg, 07/03/23 16:16:00 EDT, Dosing Weight Start Date: 09/09/23 Status: Ordered Start: 06-07-2023 Adult Aspirin 325 mg oral tablet Dose : 325 mg = 1 tab(s), Oral, BID, 0 Refill(s) Start Date: 06/07/23 Status: Ordered Start: 05-12-2023 aspirin 81 mg oral delayed release tablet Dose : 81 mg = 1 tab(s), Oral, qDay, # 30 tab(s), 0 Refill(s), Pharmacy: [facility], 165, cm, 04/30/23 5:47:00 EDT, Height, kg, 05/05/23 9:11:00 EDT, Dosing Weight Start Date: 05/12/23 Status: Ordered Start: 05-12-2023 aspirin 81 mg oral delayed release tablet Dose : 81 mg = 1 tab(s), Oral, qDay, # 30 tab(s), 0 Refill(s), Pharmacy: [facility], 165, cm, 04/30/23 5:47:00 EDT, Height, kg, 05/05/23 9:11:00 EDT, Dosing Weight Start Date: 05/12/23 Status: Ordered Start: 05-06-2023 End: 05-11-2023 take 1 tablet by mouth once daily aspirin 325 mg oral delayed release tablet Dose : 325 mg = 1 tab(s), Oral, q8h, after 5 days, then resume ASA 81 mg daily do not crush or chew, # 15 tab(s), 1 Refill(s), Pharmacy: [facility], 165, cm, 04/30/23 5:47:00 EDT, Height, kg, 05/05/23 9:11:00 EDT, Dosing Weight Start Date: 05/06/23 Stop Date: 05/11/23 Status: Ordered Start: 10-18-2022 aspirin, enter ic coated (ASPIRIN, ENTERIC COATED) 81 mg EC tablet 81 mg. 10/18/2022 Active Start: 08-08-2022 aspirin 81 mg oral delayed release tablet Dose : 81 mg = 1 tab(s), Oral, Daily, # 30 tab(s), 0 Refill(s), Pharmacy: [id number], 167.6, cm, 08/07/22 5:48:00 EST, Height Start Date: 08/08/22 Status: Ordered Start: 08-08-2022 End: 08-13-2019 aspirin 81 mg oral delayed r elease tablet Dose : 81 mg = 1 tab(s), Oral, Daily, # 30 tab(s), 0 Refill(s), Pharmacy: [facility], 167.6, cm, 08/07/22 5:48:00 EST, Height Start Date: 08/08/22 Status: Ordered take 1 tablet by ysabel th once daily aspirin 81 mg tablet,delayed release Take 1 tablet every day by oral route. active Not Available Not Available Not Available Comment on above: 81 mg. B12 (9 sources) B12 1000mcg qd a ctive Not Available Not Available Not Available B12 1000mcg qd a ctive bisoprolol fumarate 5 mg oral tablet (1 source) beta-Adrenergic Wyatt Start: 08-14-2022 bisopr olol 5 mg oral tablet Dose : 2.5 mg = 0.5 tab(s), Oral, Daily, # 15 tab(s), 3 Refill(s), Pharmacy: [facility] #[id number], 167.6, cm, 08/14/22 14:51:00 EST, Height Start Date: 08/14/22 Status: Ordered bumetanide 1 mg oral tablet (20 sources) Loop Diuretic Start: 04-12-2022 End: 04-09-2024 bumetanide 1 mg oral tablet Dose : 1 mg = 1 tab(s), Oral, Daily, PRN Swelling/weight gain, # 30 tab(s), 3 Refill(s), Pharmacy: [facility], 165.1, cm, 12/11/23 16:29:00 EDT, Height, kg, 12/11/23 16:29:00 EDT, Dosing Weight Start Date: 02/24/24 Status: Ordered Comment on above: TAKE 1 TABLET BY YSABEL TH EVERY DAY NEEDED FOR SWELLINGWEIGHT GAIN Burdock root extract (7 sources) BURDOCK ROOT ORA L Take by mouth. Active BURDOCK ROOT ORA L Take by mouth. 0 Active Comment on above: Take by mouth. busPIRone hydrochloride 5 mg oral tablet (20 sources) Start: 02-14-2023 busPIRone (BUSPAR) 5 mg tablet 02/14/2023 Active carvedilol 12.5 mg oral tablet (20 sources) alpha-Adrenergic Wyatt, beta-Adrenergic Wyatt Start: 02-16-2021 End: 07-06-2021 take 0.5 tablet by mouth twice daily carvedilol (COREG) 12.5 mg tablet Take 0.5 tablets by mouth twice daily. 02/16/2021 Active Start: 02-16-2021 take 1 tablet by ysabel th twice daily Coreg 12.5 mg tablet Take 1 tablet twice a day by oral route. 02/16/2021 active Comment on above: Take 0.5 tablets by mouth twice daily. cholecalciferol 0.125 mg ora l tablet (20 sources) Vitamin D cholecalciferol (VITAMIN D3) 5,000 unit tab q 24 HR. Active take 1 capsule by mouth once martin ly Vitamin D3 25 mcg (1,000 unit) capsule Take 1 capsule every day by oral route. active Not Available Not Available Not Available Comment on above: q 24 HR. codeine phosphate 2 mg/ml / guaiFENesin 20 mg/ml oral solution (15 sources) Opioid Agonist Start: 08-05-20 14 take 10 mL by mouth every four hours as needed Guaiatussin AC 10 mg-100 mg/5 mL oral liquid Take 10 mL every 4 hours by oral route as needed. 08/05/2014 active Not Available Not Available Not Available cyclobenzaprine hydrochloride 10 mg oral tablet (15 sources) Muscle Relaxant take 1 tablet by mouth three times daily as needed cyclobenzaprine 10 mg tablet Take 1 tablet 3 times a day by oral route as needed. active Not Available Not Available Not Available Dandelion Extract (7 sources) DANDELION ORAL T castro by mouth. Active DANDELION ORAL T castro by mouth. 0 Active Comment on above: Take by mouth. desoximetasone 0.5 mg/ml topical cream (20 sources) Corticosteroid Start: 08-07-2022 desoximetasone 0.05% topical cream Apply 1 aleena, Topical, BID, PRN Rash, # 15 gram(s), 0 Refill(s), Cream, 79.3 Start Date: 08/07/22 Status: Ordered Start: 03-09-2022 End: 02-14-2023 desoximetasone 0.05 % topica l cream 03/09/2022 02/14/2023 completed Not Available Not Available Not Available Start: 02-15-2022 desoximetasone 0.05 % topical cream APPLY A THIN LAYER TO THE AFFECTED AREA(S) BY TOPICAL ROUTE 2 TIMES PER DAY ; RUB IN GENTLY AND COMPLETELY 02/15/2022 active Start: 02-09-2019 End: 02-15-2021 desoximetasone 0.05 % topica l cream APPLY A THIN LAYER TO THE AFFECTED AREA(S) BY TOPICAL ROUTE 2 TIMES PER DAY ; RUB IN GENTLY AND COMPLETELY 02/09/2019 02/15/2021 completed desoximetasone 0 .05 % topical cream APPLY TO THE AFFECTED AREA DAILY NEEDED active desoximetasone 0 .05 % topical cream Apply by topical route for 15 days. active DilTIAZem (Eqv-Cardizem CD) 120 mg/24 hours oral capsule, extended release (3 sources) Start: 11-14-2022 End: 11-09-2023 DilTIAZem (Eqv-Cardizem CD) 120 mg/24 hours oral capsule, extended release Dose : 120 mg = 1 cap(s), Oral, qDay, # 30 cap(s), 11 Refill(s), Pharmacy: [facility], 167.6, cm, 10/24/22 14:14:00 EST, Height, kg, 10/24/22 14:14:00 EST, Dosing Weight Start Date: 11/14/22 Stop Date: 11/09/23 Status: Ordered Start: 10-13-2022 End: 11-12-2022 DilTIAZem (Eqv-Cardizem CD) 120 mg/24 hours oral capsule, extended release Dose : 120 mg = 1 cap(s), Oral, qDay, # 30 cap(s), 0 Refill(s), Pharmacy: [facility] #[id number], 167.6, cm, 10/08/22 8:33:00 EST, Height Start Date: 10/13/22 Stop Date: 11/12/22 Status: Ordered diphenhydrAMINE hydrochloride 50 mg oral capsule (7 sources) Histamine-1 Receptor Antagonist Start: 02-21-2016 take 1 capsule by mouth every hour diphenhydrAMINE (BENADRYL) 50 mg capsule Take 1 capsule by mouth as directed for 1 dose. one (1) hour prior to exam. 1 capsule 0 02/21/2016 Active Comment on above: Take 1 capsule by [facility] as directed for 1 dose. one (1) hour prior to exam. dofetilide 0.5 mg oral capsule (20 sources) Antiarrhythmic Start: 02-24-2024 Tikosyn 500 mcg oral capsule Dose : 500 mcg = 1 cap(s), Oral, BID, # 60 cap(s), 3 Refill(s), Pharmacy: [facility], 165.1, cm, 12/11/23 16:29:00 EDT, Height, kg, 12/11/23 16:29:00 EDT, Dosing Weight Start Date: 02/24/24 Status: Ordered Start: 02-05-2023 dofetilide (TI KOSYN) 250 mcg capsule Dose : 500 mcg = 2 cap(s), Oral, BID 02/05/2023 Active Start: 02-05-2023 Tikosyn 250 mc g oral capsule Dose : 500 mcg = 2 cap(s), Oral, BID Start Date: 02/05/23 Status: Ordered Start: 12-31-2022 dofetilide 250 mcg oral capsule Dose : 500 mcg = 2 cap(s), Oral, BID, Currently on hold for bradycardia 01/04 SMS, # 120 cap(s), 1 Refill(s), Pharmacy: [facility], 167.6, cm, 12/25/22 11:36:00 EDT, Height Start Date: 12/31/22 Status: Ordered Start: 10-18-2022 dofetilide 500 mcg oral capsule Dose : 500 mcg = 1 cap(s), Oral, q12h, # 180 cap(s), 3 Refill(s), Pharmacy: [facility], 167, cm, 10/16/22 9:45:00 EST, Height, kg, 10/16/22 9:45:00 EST, Dosing Weight Start Date: 10/18/22 Status: Ordered Start: 10-11-2022 dofetilide 500 mcg oral capsule Dose : 500 mcg = 1 cap(s), Oral, q12h, # 180 cap(s), 0 Refill(s), Pharmacy: [facility] #[id number], 167.6, cm, 10/08/22 8:33:00 EST, Height Start Date: 10/11/22 Status: Ordered take 2 capsules by m outh twice daily Tikosyn 250 mcg capsule Take 2 capsules twice a day by oral route. active Not Available Not Available Not Available Comment on above: Dose : 500 mcg = 2 cap(s), Oral, BID magnesium oxide 250 mg oral tablet (20 sources) Start: 02-05-2023 Magnesium Oxide 250 mg magnesium tab 500 mg. 02/05/2023 Active Start: 02-05-2023 magnesium oxid e 250 mg oral tablet Dose : 250 mg = 1 tab(s), Oral, BID Start Date: 02/05/23 Status: Ordered Start: 10-11-2022 End: 10-13-2022 magnesium oxide 400 mg oral tablet Dose : 400 mg = 1 tab(s), Oral, TID, X 2 day(s), # 6 tab(s), 0 Refill(s), 10/13/22 8:43:00 EST, Pharmacy: [facility] #[id number], 167.6, cm, 10/08/22 8:33:00 EST, Height Start Date: 10/11/22 Stop Date: 10/13/22 Status: Ordered Comment on above: 500 mg. 24 hr metoprolol succinate 25 mg extended release oral tablet (20 sources) beta-Adrenergic Wyatt Start: 02-04-2024 metoprolol succinate 25 mg oral TABLET extended release Dose : 25 mg = 1 tab(s), Oral, qDay, Do not crush or chew (controlled release) 0.5 in afternoon, # 45 tab(s), 3 Refill(s), Pharmacy: [facility], 165.1, cm, 12/11/23 16:29:00 EDT, Height, kg, 12/11/23 16:29:00 EDT, Dosing Weight Start Date: 02/04/24 Status: Ordered Start: 05-01-2023 End: 05-01-2023 Lopressor Start: 05/01/23 6:45 :00 PM EDT, Dose = 2.5 mg, = 2.5 mL, IV Push, now, Stop: 05/01/23 6:48:45 PM EDT, 05/01/23 18:44:00 EDT Start Date: 05/01/23 Stop Date: 05/01/23 Status: Completed Start: 04-08-2023 metoprolol suc cinate 25 mg oral TABLET extended release See Instructions, 0.5 tab(s) NEEDED., 0 Refill(s) Start Date: 04/08/23 Status: Ordered Start: 01-31-2023 End: 01-31-2023 metoprolol tartrate 50 mg or al tablet Start: 01/31/23 9:30:00 EDT, Dose = 25 mg, = 0.5 tab(s), Oral, now, Stop: 01/31/23 9:30:00 EDT, 0, 01/31/23 9:23:00 EDT Notes: Take with food. Start Date: 01/31/23 Stop Date: 01/31/23 Status: Completed Start: 01-30-2023 metoprolol suc cinate 25 mg oral TABLET extended release Dose : 12.5 mg = 0.5 tab(s), Oral, BID, Do not crush or chew (controlled release), # 30 tab(s), 6 Refill(s), other reason (Rx) Start Date: 01/30/23 Status: Ordered Start: 08-22-2022 End: 10-11-2022 metoprolol succinate 25 mg o ral TABLET extended release Dose : 12.5 mg = 0.5 tab(s), Oral, qDay, Do not crush or chew (controlled release), # 15 tab(s), 6 Refill(s), Pharmacy: [facility] #[id number], 167.6, cm, 08/22/22 9:35:00 EST, Height Start Date: 08/22/22 Status: Ordered Start: 05-16-2022 metoprolol (LO PRESSOR) 5 mg/5 mL injection 5 mg Metoprolol IV dose increments over 3-5 minutes. May give additional 5mg Metoprolol every 5 minutes until target heart rate achieved, or maximum dosage of 30 mg of Metoprolol. 5 mL 5 05/16/2022 Active Start: 12-20-2014 End: 10-07-2015 take 1 tablet by mouth twice daily metoprolol tartrate 25 mg tablet Take 1 tablet twice a day by oral route. 12/20/2014 10/07/2015 completed Not Available Not Available Not Available Comment on above: 5 mg Metoprolol IV d ose increments over 3-5 minutes. May give additional 5mg Metoprolol every 5 minutes until target heart rate achieved, or maximum dosage of 30 mg of Metoprolol. Milk thistle extract (7 sources) MILK THISTLE ORA L Take by mouth. Active MILK THISTLE ORA L Take by mouth. 0 Active Comment on above: Take by mouth. molnupiravir 200 mg capsule (1 source) Start: 3 End: 3 take 4 capsules by mouth twice daily molnupiravir 200 mg capsule Indications: COVID-19 Take 4 capsules by mouth two times a day for 5 days. 40 capsule 0 08/27/2023 09/01/2023 Active Comment on above: Take 4 capsules by m outh two times a day for 5 days. nebivolol 2.5 mg oral tablet (1 source) Start: 4 nebivolol 2.5 mg oral tablet Dose : 2.5 mg = 1 tab(s), Oral, Daily, # 180 tab(s), 3 Refill(s), Pharmacy: [facility], 165.1, cm, 05/23/24 11:32:00 EDT, Height, kg, 05/23/24 11:32:00 EDT, Dosing Weight Start Date: 05/26/24 Status: Ordered NETTLE LEAF ORAL (7 sources) NETTLE LEAF ORAL Take by mouth. Active NETTLE LEAF ORAL Take by mouth. 0 Active Comment on above: Take by mouth. nitroglycerin 0.3 mg sublingual tablet (5 sources) Nitrate Vasodilator Start: 022 take 1 tablet under the tongue once nitroglycerin sublingual (NITROQUICK) 0.3 mg SL tablet Dissolve 1 tablet under the tongue one time only for 1 dose. To be administered in Radiology for CTA exam 1 tablet 05/16/2022 Active Comment on above: Dissolve 1 tablet un nathaniel the tongue one time only for 1 dose. To be administered in Radiology for CTA exam oxyCODONE hydrochloride 5 mg oral tablet (1 source) Opioid Agonist Start: 023 End: 023 oxyCODONE 5 mg oral tablet ( IMMEDIATE release ) Dose : 5 mg = 1 tab(s), Oral, q6hr, PRN Pain, scale 7-10, X 7 day(s), # 28 tab(s), 0 Refill(s), 05/13/23 10:23:00 AM EDT, Pharmacy: [facility], Atrial fibrillation s/p Convergent Maze, RICHARD Clip, 04/30/2023 Acute pain, 165, cm, 04/30/23 5:47:00 EDT, Height, 79.6, kg, 05/05/23 9:11:00 EDT, Dosing Weight Start Date: 05/06/23 Stop Date: 05/13/23 Status: Ordered microencapsulated potassium chloride 20 meq extended release oral tablet (20 sources) Start: 024 Klor-Con M20 oral tablet, extended release Dose : 20 mEq = 1 tab(s), Oral, qDay, # 30 tab(s), 3 Refill(s), Pharmacy: [facility], 165.1, cm, 12/11/23 16:29:00 EDT, Height, kg, 12/11/23 16:29:00 EDT, Dosing Weight Start Date: 02/24/24 Status: Ordered Start: 02-05-2023 potassium chlo ride ER (KLOR-CON M20) 20 mEq tablet Dose : 20 mEq = 1 tab(s), Oral, qDay, # 30 tab(s), 3 Refill(s), Pharmacy: [facility], 167.6, cm, 04/08/23 13:33:00 EDT, Height, kg, 04/08/23 13:33:00 EDT, Dosing Weight 0 02/05/2023 Active Start: 10-08-2022 potassium chlo ride Dose : 20 mEq =, Oral, AsDirected, 0 Refill(s) Start Date: 10/08/22 Status: Ordered Start: 06-12-2022 potassium chlo ride 20 mEq oral tablet, extended release Dose : 20 mEq = 1 tab(s), Oral, qDay, Take with food Take only when you take Bumetanide, # 30 tab(s), 2 Refill(s), Pharmacy: [facility], 167, cm, 05/16/22 11:42:00 EDT, Height, kg, 05/16/22 11:42:00 EDT, Dosing Weight Start Date: 06/12/22 Status: Ordered Start: 04-12-2022 potassium chlo ride 20 mEq oral tablet, extended release Dose : 20 mEq = 1 tab(s), Oral, qDay, Take with food, # 30 tab(s), 0 Refill(s), Pharmacy: [id number], 168, cm, 04/12/22 6:12:00 EDT, Height Start Date: 04/12/22 Status: Ordered Start: 11-13-2021 End: 12-26-2021 take 1 tablet by mouth once daily Klor-Con M20 mEq tablet,extended release Take 1 tablet every day by oral route for 5 days. 11/13/2021 12/26/2021 completed End: 08-23-2022 take 1 tablet by mouth once daily potassium chloride ER 20 mEq tablet,extended release Take 1 tablet every day by oral route. 08/23/2022 completed Not Available Not Available Not Available Comment on above: Dose : 20 mEq = 1 tab(s), Oral, qDay, # 30 tab(s), 3 Refill(s), Pharmacy: [facility], 167.6, cm, 04/08/23 13:33:00 EDT, Height, kg, 04/08/23 13:33:00 EDT, Dosing Weight progesterone 200 mg oral capsule (15 sources) Progesterone progesterone micronized 200 mg capsule active Not Available Not Available Not Available propranolol hydrochloride 20 mg oral tablet (15 sources) beta-Adrenergic Wyatt Start: 12-15-19 15 take 1 tablet by mouth three times daily propranolol 20 mg tablet Take 1 tablet 3 times a day by oral route. 12/14/2014 active Not Available Not Available Not Available RED CLOVER ORAL (7 sources) RED CLOVER ORAL Take by mouth. Active RED CLOVER ORAL Take by mouth. 0 Active Comment on above: Take by mouth. rivaroxaban 20 mg oral tablet (20 sources) Factor Xa Inhibitor Start: 03-14-2022 rivaroxaban (XARELTO) 20 mg tablet 20 mg. 03/14/2022 Active Comment on above: 20 mg. tadalafil 20 mg oral tablet (20 sources) Phosphodiesterase 5 Inhibitor Start: 02-05-2023 Tadalafil (Eqv-Cialis) 20 mg oral tablet Dose : 20 mg = 1 tab(s), Oral, BID, # 60 tab(s), 3 Refill(s), Pharmacy: [facility], 165.1, cm, 12/11/23 16:29:00 EDT, Height, kg, 12/11/23 16:29:00 EDT, Dosing Weight Start Date: 02/24/24 Status: Ordered Start: 01-31-2023 take 2 tablets by [facility] once daily, then take 2 tablets by mouth once daily TADALAFIL 2 tablets, Oral, Daily, TAKE 2 TABLETS BY MOUTH EVERY DAY Start Date: 01/31/23 Status: Ordered Start: 01-22-2023 Tadalafil (Eqv -Adcirca) 20 mg oral tablet Dose : 40 mg = 2 tab(s), Oral, qDay, # 60 tab(s), 3 Refill(s), called to pharmacy (Rx) Start Date: 01/30/23 Status: Ordered Start: 12-25-2022 Tadalafil (Eqv -Adcirca) 20 mg oral tablet Dose : 40 mg = 2 tab(s), Oral, qDay, # 60 tab(s), 0 Refill(s), Pharmacy: [facility], 167.6, cm, 12/25/22 11:36:00 EDT, Height, kg, 12/25/22 11:36:00 EDT, Dosing Weight Start Date: 12/25/22 Status: Ordered Start: 08-22-2022 Tadalafil (Eqv -Adcirca) 20 mg oral tablet Dose : 20 mg = 1 tab(s), Oral, qDay, # 30 tab(s), 0 Refill(s), called to pharmacy (Rx) Start Date: 08/22/22 Status: Ordered Start: 05-16-2022 End: 02-14-2023 Adcirca 20 mg oral tablet Do se : 20 mg = 1 tab(s), Oral, qDay, # 30 tab(s), 5 Refill(s), Pharmacy: [facility], 167.6, cm, 07/31/22 9:04:00 EST, Height, kg, 07/31/22 9:04:00 EST, Dosing Weight Start Date: 08/03/22 Status: Ordered take 1 tablet by ysabel twice daily tadalafil 20 mg tablet Take 1 tablet twice a day by oral route. active Not Available Not Available Not Available Comment on above: Take 20 mg by mouth once daily. traMADol hydrochloride 50 mg oral tablet (15 sources) Opioid Agonist tramadol 50 mg t ablet active Not Available Not Available Not Available vitamin b12 1 mg oral tablet (20 sources) Vitamin B12 Start: 02-05-2023 cyanocobalamin 1000 mcg oral tablet Dose : 1,000 mcg = 1 tab(s), Oral, qDay Start Date: 02/05/23 Status: Ordered Start: 02-05-2023 cyanocobalamin 1000 mcg oral tablet Dose : 1,000 mcg = 1 tab(s), Oral, qDay Start Date: 02/05/23 Status: Ordered Start: 02-08-2021 take 1 dose by mouth once daily Vitamin B12 Dose : 1,000 mcg =, Oral, qDay, 0 Refill(s) Start Date: 02/08/21 Status: Ordered Start: 02-08-2021 Vitamin B12 0 Refill(s) Start Date: 02/08/21 Status: Ordered Vitamin B12 1000 mcg oral tablet (1 source) Start: 09-20-2023 take 1 tablet by mouth once daily Vitamin B12 1000 mcg oral tablet See Instructions, pt takes 1000 mcg 0.5 tablet daily, 0 Refill(s) Start Date: 09/20/23 Status: Ordered Vitamin D3 (9 sources) Vitamin D3 1000I U qd active Not Available Not Available Not Available Vitamin D3 1000I U qd active Vitamin D3 1000 intl units oral tablet (20 sources) Start: 03-19-2013 Vitamin D3 100 0 intl units oral tablet Dose : 1,000 unit(s) = 1 tab(s), Oral, qDay, 0 Refill(s) Start Date: 03/19/13 Status: Ordered Vitamin E (20 sources) Start: 02-08-2021 take 1 dose by mouth once daily vitamin E Dose : 100 Int unit =, Oral, qDay, 0 Refill(s) Start Date: 02/08/21 Status: Ordered Start: 02-08-2021 vitamin E Oral , qDay, 0 Refill(s) Start Date: 02/08/21 Status: Ordered End: 02-14-2023 vitamin E 100IU qd 3 completed Not Available Not Available Not Available End: 02-14-2023 vitamin E 100IU qd 3 completed Completed/Discontinued Medications Medication Drug Class(es) Dates Sig (Normalized) Sig (Original) amoxicillin 500 mg oral tablet (20 sources) Penicillin-class Antibacterial Start: 04-02-2023 End: 06-04-2023 take 1 tablet by mouth every eight hours amoxicillin 500 mg tablet Take 1 tablet every 8 hours by oral route for 7 days. 04/02/2023 06/04/2023 completed Not Available Not Available Not Available amoxicillin 500 mg capsule active Not Available Not Available Not Available azithromycin 250 mg oral tablet (14 sources) Macrolide Antimicrobial Start: 03-02-2022 End: 03-09-2022 take 2 tablets by mouth once daily, then take 1 tablet by mouth once daily Zithromax Z-Denzel 250 mg tablet TAKE 2 TABLETS (500 MG) BY ORAL ROUTE ONCE DAILY FOR 1 DAY THEN 1 TABLET (250 MG) BY ORAL ROUTE ONCE DAILY FOR 4 DAYS 03/02/2022 03/09/2022 completed Not Available Not Available Not Available Start: 04-12-2021 End: 06-30-2021 take 2 tablets by mouth once daily, then take 1 tablet by mouth once daily azithromycin 250 mg tablet TAKE 2 TABLETS (500 MG) BY ORAL ROUTE ONCE DAILY FOR 1 DAY THEN 1 TABLET (250 MG) BY ORAL ROUTE ONCE DAILY FOR 4 DAYS 04/12/2021 06/30/2021 completed cephalexin 500 mg oral capsule (3 sources) Cephalosporin Antibacterial Start: 03-05-2024 End: 03-20-2024 take 1 capsule by mouth every eight hours cephalexin 500 mg capsule Take 1 capsule every 8 hours by oral route for 7 days. 03/05/2024 03/20/2024 completed Not Available Not Available Not Available colchicine 0.6 mg oral tablet (16 sources) Start: 07-15-2023 take 1 tablet by mouth twice daily at mealtime colchicine 0.6 mg tablet TAKE 1 TABLET BY MOUTH TWO TIMES EVERY DAY- TAKE WITH FOOD 0 08/08/2023 Active Start: 06-04-2023 colchicine 0.6 mg oral tablet Dose : 0.6 mg = 1 tab(s), Oral, BID, # 30 tab(s), 2 Refill(s), Pharmacy: [facility], 165.1, cm, 06/04/23 14:00:00 EDT, Height, kg, 06/04/23 14:00:00 EDT, Dosing Weight Start Date: 06/04/23 Status: Ordered Start: 05-06-2023 colchicine 0.6 mg oral tablet Dose : 0.6 mg = 1 tab(s), Oral, qDay, # 30 tab(s), 2 Refill(s), Pharmacy: [facility], 165, cm, 04/30/23 5:47:00 EDT, Height, kg, 05/05/23 9:11:00 EDT, Dosing Weight Start Date: 05/06/23 Status: Ordered End: 11-14-2023 colchicine (cardiac) AD 10/25 completed Not Available Not Available Not Available colchicine (card iac) AD active Not Available Not Available Not Available colchicine AD ac tive Comment on above: TAKE 1 TABLET BY YSABEL TH TWO TIMES EVERY DAY- TAKE WITH FOOD Digoxin (8 sources) Cardiac Glycoside Start: 05-26-2024 End: 05-26-2024 digoxin Start: 05/26/24 12:00:00 PM EDT, Dose = 125 mcg, = 1 tab(s), Oral, 05/23/24 12:52:00 EDT Start Date: 05/26/24 Stop Date: 05/26/24 Status: Completed Start: 05-25-2024 End: 05-25-2024 digoxin Start: 05/25/24 12:00: 00 PM EDT, Dose = 125 mcg, = 1 tab(s), Oral, 05/23/24 12:52:00 EDT Start Date: 05/25/24 Stop Date: 05/25/24 Status: Completed Start: 05-24-2024 End: 05-24-2024 digoxin Start: 05/24/24 12:00: 00 PM EDT, Dose = 125 mcg, = 1 tab(s), Oral, 05/23/24 12:52:00 EDT Start Date: 05/24/24 Stop Date: 05/24/24 Status: Completed Start: 04-20-2024 digoxin 125 mc g (0.125 mg) oral tablet Dose : 125 mcg = 1 tab(s), Oral, qDay, # 30 tab(s), 3 Refill(s), Pharmacy: [facility], 165, cm, 03/18/24 11:10:00 EDT, Height, kg, 03/18/24 11:10:00 EDT, Dosing Weight Start Date: 04/20/24 Status: Ordered Start: 03-18-2024 digoxin 125 mc g (0.125 mg) oral tablet Dose : 125 mcg = 1 tab(s), Oral, qDay, # 30 tab(s), 11 Refill(s), Pharmacy: [id number], 165, cm, 03/18/24 11:10:00 EDT, Height, kg, 03/18/24 11:10:00 EDT, Dosing Weight Start Date: 03/18/24 Status: Ordered End: 04-09-2024 digoxin 04/09/2024 completed Not Available Not Available Not Available digoxin active N ot Available Not Available Not Available Cardizem (2 sources) Calcium Channel Wyatt Start: 05-05-2023 End: 05-05-2023 Cardizem Start: 05/05/23 12:30:00 AM EDT, Dose = 15 mg, = 3 mL, IV Push, Once, Stop: 05/05/23 12:43:22 AM EDT, 05/05/23 0:28:00 EDT Notes: Give BOLUS over 2 minutesPediatric patients: give BOLUS over 5 minutes ( Start Date: 05/05/23 Stop Date: 05/05/23 Status: Completed Start: 05-04-2023 End: 05-04-2023 Cardizem Start: 05/04/23 8:00 :00 PM EDT, Dose = 15 mg, = 3 mL, IV Push, Once, Stop: 05/04/23 8:31:24 PM EDT, 05/04/23 19:57:00 EDT Notes: Give BOLUS over 2 minutesPediatric patients: give BOLUS over 5 minutes ( Start Date: 05/04/23 Stop Date: 05/04/23 Status: Completed Kenalog 40 mg/mL suspension for injection (3 sources) Start: 03-05-2024 End: 03-20-2024 Kenalog 40 mg/mL suspension for injection Take 1.5 mg by injection route. 03/05/2024 03/20/2024 completed Not Available Not Available Not Available Start: 03-05-2024 Kenalog 40 mg/ mL suspension for injection Take 1.5 mg by injection route. 03/05/2024 active Not Available Not Available Not Available Medrol (Denzel) 4 mg tablets in a dose pack (15 sources) Start: 12-20-2014 End: 10-07-2015 Medrol (Denzel) 4 mg tablets in a dose pack Take by oral route. 12/20/2014 10/07/2015 completed Not Available Not Available Not Available Start: 12-20-2014 End: 10-07-2015 Medrol (Denzel) 4 mg tablets in a dose pack Take by oral route. 12/20/2014 10/07/2015 completed Multivitamin preparation (15 sources) End: 01-05-2016 multivitamin 1 QD 01/05/2016 completed Not Available Not Available Not Available End: 01-05-2016 multivitamin 1 QD 01/05/2016 completed pantoprazole 40 mg delayed release oral tablet (13 sources) Proton Pump Inhibitor Start: 07-25-2023 take 1 tablet by mouth once pantoprazole DR (PROTONIX) 40 mg tablet Take 1 tablet by mouth every afternoon. 0 07/25/2023 Active Start: 06-04-2023 pantoprazole 4 0 mg oral enteric coated tablet Dose : 40 mg = 1 tab(s), Oral, qDay, # 30 tab(s), 1 Refill(s), Pharmacy: [facility], 165.1, cm, 06/04/23 14:00:00 EDT, Height, kg, 06/04/23 14:00:00 EDT, Dosing Weight Start Date: 06/04/23 Status: Ordered End: 11-14-2023 pantoprazole ad 11/14/2023 c ompleted Not Available Not Available Not Available pantoprazole ad active Not Available Not Available Not Available pantoprazole ad active Comment on above: Take 1 tablet by ysabel th every afternoon. predniSONE 20 mg oral tablet (20 sources) Start: 03-05-2024 End: 03-20-2024 prednisone 20 mg tablet take 2 tabs x 3 days then 1 tab x 3 days 03/05/2024 03/20/2024 completed Not Available Not Available Not Available Start: 11-03-2021 End: 11-15-2021 predniSONE (DELTASONE) 10 mg tablet Take 6 tabs for 3 days, then 4 tabs for 3 days, then 2 tabs for 3 days then 1 tab for 3 days with food. 39 tablet 11/03/2021 11/15/2021 Start: 08-13-2014 End: 12-26-2021 take 4 tablets by mouth once daily, then take 3 tablets by mouth once daily, then take 2 tablets by mouth once daily, then take 1 tablet by mouth once daily prednisone 10 mg tablet 4 PO QD FOR 3 DAYS THEN 3 PO QD FOR 3 DAYS THEN 2 PO QD FOR 3 DAYS THEN 1 PO QD FOR 3 DAYS 08/13/2014 active Start: 09-08-2012 End: 09-15-2012 take 2 tablets by mouth once daily prednisone 20 mg tablet Take 2 tablets every day by oral route for 7 days. 09/08/2012 09/15/2012 completed Not Available Not Available Not Available tiZANidine 4 mg oral tablet (5 sources) Central alpha-2 Adrenergic Agonist Start: 11-14-2023 End: 12-05-2023 take 1 tablet by mouth every six hours tizanidine 4 mg tablet Take 1 tablet every 6 hours by oral route for 5 days. 11/14/2023 12/05/2023 completed Not Available Not Available Not Available triamcinolone acetonide 1 mg/ml topical cream (2 sources) Corticosteroid Start: 03-20-2024 End: 04-08-2024 triamcinolone acetonide 0.1 % topical cream APPLY A THIN LAYER TO THE AFFECTED AREA(S) BY TOPICAL ROUTE 2 TIMES PER DAY 03/20/2024 04/08/2024 completed Not Available Not Available Not Available Vitamin D 5,000 unit tablet (15 sources) End: 01-05-2016 Vitamin D 5,000 unit tablet Take by oral route. 01/05/2016 completed Not Available Not Available Not Available End: 01-05-2016 Vitamin D 5,000 unit tablet Take by oral route. 01/05/2016 completed Problems Active Problems Problem Classification Problem Date Documented Da te Episodic/Chronic Acute posthemorrhagic anemia (8 sources) Acute posthemorrhagic anemia; Translations: [Acute posthemorrhagic anemia] Onset: 3 Episodic Anxiety disorders (20 sources) Generalized anxiety disorder; Translations: [Generalized anxiety disorder] Onset: 3 Resolved: 4 Chronic Cardiac and circulatory congenital anomalies (20 sources) Persistent ostium secundum; Translations: [Atrial septal defect] Onset: 2 07-06-2022 Chronic Cardiac dysrhythmias (20 sources) Atrial fibrillation; Translations: [Atrial fibrillation with rapid ventricular response] Onset: 9 Resolved: 4 Chronic Comment on above: new onset Conditions associated with dizziness or vertigo (3 sources) Dizziness; Translations: [Dizziness and giddiness] Onset: 2 Resolved: 2 Episodic Congestive heart failure; nonhypertensive (4 sources) Heart failure, unspecified; Translations: [Chronic diastolic heart failure] Onset: 2 Chronic Coronary atherosclerosis and other heart disease (1 source) Coronary atherosclerosis; Translations: [Atherosclerotic heart disease of [place] coronary artery without angina pectoris] Chronic Diabetes mellitus without complication (14 sources) Impaired fasting glycemia; Translations: [Impaired fasting glucose] Episodic Esophageal disorders (20 sources) Gastroesophageal reflux disease; Translations: [Gastroesophageal reflux disease without esophagitis] Onset: 3 07-14-2013 Chronic Essential hypertension (20 sources) Benign essential hypertension; Translations: [Essential (primary) hypertension] Onset: 1 Resolved: 4 Chronic Fever of unknown origin (1 source) Fever; Translations: [Fever, unspecified] 08-26-2023 Episodic Fluid and electrolyte disorders (15 sources) Dehydration; Translations: [Hypokalemia] Onset: 2 10-02-2019 Episodic Genitourinary symptoms and ill-defined conditions (20 sources) Urinary incontinence 07-14-2013 Chronic Headache; including migraine (20 sources) Migraine 07-14-2013 Chronic Hepatitis (20 sources) Nonalcoholic steatohepatitis; Translations: [Nonalcoholic steatohepatitis (ABARCA)] Onset: 3 10-02-2019 Chronic Nutritional deficiencies (16 sources) Vitamin D deficiency; Translations: [Vitamin D deficiency, unspecified] Onset: 9 Resolved: 4 Chronic Osteoarthritis (6 sources) Osteoarthritis 02-06-2023 Chronic Other aftercare (5 sources) Surgical follow-up 05-20-2023 Episodic Other and ill-defined heart disease (2 sources) Abnormality of left atrial appendage 12-11-2023 Chronic Other connective tissue disease (1 source) Pain of toe of left foot; Translations: [Pain in left toe(s)] 02-19-2023 Episodic Other endocrine disorders (6 sources) Hereditary disorder of endocrine system 02-06-2023 Episodic Other gastrointestinal disorders (14 sources) Diarrhea 10-02-2019 Episodic Comment on above: acute Other injuries and conditions due to external causes (1 source) Injury of toe of left foot; Translations: [Unspecified injury of left foot, initial encounter] 02-19-2023 Episodic Other liver diseases (10 sources) Cirrhosis of liver; Translations: [Unspecified cirrhosis of liver] Onset: 6 Resolved: 2 Chronic Other liver diseases (20 sources) 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 Other lower respiratory disease (16 sources) Cough; Translations: [Cough] Resolved: 6 11-03-2021 Episodic Rose-; endo-; and myocarditis; cardiomyopathy (except that caused by tuberculosis or sexually transmitted disease) (5 sources) Acute pericarditis; Translations: [Acute pericarditis, unspecified] Onset: 3 Resolved: 3 Episodic Pulmonary heart disease (19 sources) Pulmonary hypertension, unspecified; Translations: [Pulmonary hypertension] Onset: 2 Resolved: 4 Chronic Residual codes; unclassified (1 source) Sleep apnea Onset: 1 Resolved: 1 Chronic Residual codes; unclassified (20 sources) Obstructive sleep apnea syndrome; Translations: [Obstructive sleep apnea (adult) (pediatric)] Onset: 1 Resolved: 4 02-08-2021 Chronic Residual codes; unclassified (1 source) Pain; Translations: [Pain, unspecified] Onset: 3 Episodic Spondylosis; intervertebral disc disorders; other back problems (20 sources) Disorder of back; Translations: [Backache] Onset: 4 Resolved: 4 07-14-2013 Episodic Syncope (20 sources) Near syncope 10-02-2019 Episodic Thyroid disorders (20 sources) Goiter; Translations: [Hyperthyroidism] Onset: 1 Resolved: 1 Chronic Unclassified (20 sources) Influenza vaccination declined 10-02-2019 Comment on above: 2018 Unclassified (20 sources) Vaccine refused by parent 10-02-2019 Comment on above: 2018 Unclassified (1 source) R05.9 - Cough, unspecified; Translations: [R05.9 - Cough, unspecified] Onset: 2 Viral infection (2 sources) Disease caused by 2018-nCoV; Translations: [COVID-19] 08-27-2023 Episodic Viral infection (15 sources) Disease caused by 2019-nCoV; Translations: [COVID-19] Onset: 2 Resolved: 2 Past or Other Problems Problem Classification Problem Date Documented Date Episodic/Chronic Allergic reactions (20 sources) Allergic condition; Translations: [Allergy, unspecified, initial encounter] Onset: 02-27-2016 Resolved: 03-05-2024 02-27-2016 Episodic Comment on above: of back Biliary tract disease (2 sources) Cholecystitis; Translations: [Cholecystitis, unspecified] Onset: 10-17-2023 Resolved: 10-17-2023 Episodic Cardiac dysrhythmias (15 sources) Tachycardia Resolved: 02-09-2019 Episodic Immunizations and screening for infectious disease (10 sources) Anti-nuclear factor positive; Translations: [Other specified abnormal immunological findings in serum] Onset: 02-14-2023 Resolved: 02-14-2023 Episodic Nonspecific chest pain (20 sources) Atypical chest pain; Translations: [Chest wall pain] Onset: 04-30-2018 10-02-2019 Episodic Other and unspecified benign neoplasm (18 sources) Polyp of colon; Translations: [Polyp of colon] Onset: 12-06-2015 Resolved: 04-09-2024 Episodic Other circulatory disease (1 source) Elevated blood-pressure reading without diagnosis of hypertension Onset: 02-16-2021 Resolved: 02-16-2021 Episodic Other connective tissue disease (15 sources) Plantar fasciitis Resolved: 02-16-2021 Episodic Other connective tissue disease (15 sources) Muscle pain Resolved: 06-04-2018 Episodic Other connective tissue disease (15 sources) Pain in upper limb Resolved: 02-21-2016 Episodic Other connective tissue disease (1 source) Pain in left toe(s); Translations: [Pain of toe of left foot] Onset: 02-19-2023 Episodic Other hereditary and degenerative nervous system conditions (15 sources) Essential tremor Resolved: 02-16-2021 Chronic Other inflammatory condition of skin (1 source) Pruritic rash Onset: 03-09-2022 Resolved: 03-09-2022 Episodic Other injuries and conditions due to external causes (1 source) Unspecified injury of left foot, initial encounter; Translations: [Toe injury, left, initial encounter] Onset: 02-19-2023 Episodic Other liver diseases (11 sources) Elevated liver enzymes level; Translations: [Elevation of levels of liver transaminase levels] Onset: 02-14-2023 Resolved: 10-17-2023 Episodic Other lower respiratory disease (15 sources) Dyspnea Resolved: 02-21-2016 Episodic Other nervous system disorders (15 sources) Skin sensation disturbance Resolved: 07-13-2013 Episodic Other nervous system disorders (15 sources) Numbness of foot Resolved: 02-21-2016 Episodic Other nervous system disorders (15 sources) Numbness of hand Resolved: 02-21-2016 Episodic Other non-traumatic joint disorders (3 sources) Multiple joint pain Onset: 02-15-2022 Resolved: 02-15-2022 Episodic Other nutritional; endocrine; and metabolic disorders (15 sources) Abnormal weight gain Resolved: 06-04-2018 Episodic Other nutritional; endocrine; and metabolic disorders (10 sources) H/O: hyperthyroidism; Translations: [Personal history of other endocrine, nutritional and metabolic disease] Onset: 02-14-2023 Resolved: 04-09-2024 Episodic Other nutritional; endocrine; and metabolic disorders (1 source) Overweight; Translations: [Overweight] Onset: 04-09-2024 Resolved: 04-09-2024 Episodic Other skin disorders (15 sources) O/E - a rash Resolved: 07-13-2013 Episodic Other skin disorders (5 sources) Eruption; Translations: [Rash and other nonspecific skin eruption] Onset: 02-15-2022 Resolved: 03-20-2024 Episodic Pneumonia (except that caused by tuberculosis or sexually transmitted disease) (17 sources) Community acquired pneumonia; Translations: [Pneumonia] Onset: 11-13-2021 Resolved: 03-09-2022 Episodic Residual codes; unclassified (13 sources) History of repair of atrial septal defect; Translations: [Other specified postprocedural states] Onset: 08-23-2022 Resolved: 04-09-2024 Episodic Skin and subcutaneous tissue infections (2 sources) Cellulitis of face; Translations: [Cellulitis of face] Onset: 03-05-2024 Resolved: 03-05-2024 Episodic Spondylosis; intervertebral disc disorders; other back problems (20 sources) Degeneration of lumbar intervertebral disc; Translations: [Cervical disc disorder] Onset: 10-24-2013 Resolved: 02-21-2016 Chronic Unclassified (2 sources) Suspected disease caused by 2019-nCoV Onset: 03-02-2022 Resolved: 03-02-2022 Results Test Name Value Interpretation Reference Range Facility .Auto Diffon 05-26-2024 Basophil, Absolute 0.0 10 3/mcL Normal 0.0-0.3 [facility] ([place]) Comment on above: Performed By: #### A DIFF, CBC, GFR, MG, BMP, ANEU #### [facility] [address] [place] [id number] Basophils/100 WBC (Bld) 0.6 % Normal 0.0-2.5 [facility] ([place]) Comment on above: Performed By: #### A DIFF, CBC, GFR, MG, BMP, ANEU #### [address] [address] Eosinophil, Absolute 0.2 10 3/mcL Normal 0.0-0.7 [facility] ([place]) Comment on above: Performed By: #### A DIFF, CBC, GFR, MG, BMP, ANEU #### [address] [address] Eosinophils/100 WBC (Bld) 2.8 % Normal 0.0-6.0 [facility] ([place]) Comment on above: Performed By: #### A DIFF, CBC, GFR, MG, BMP, ANEU #### [address] [address] Lymphocyte, Absolute 1.5 10 3/mcL Normal 0.9-4.3 [facility] ([place]) Comment on above: Performed By: #### A DIFF, CBC, GFR, MG, BMP, ANEU #### [address] [address] Lymphocytes/100 WBC (Bld) 21.6 % Normal 20.0-40.0 [facility] ([place]) Comment on above: Performed By: #### A DIFF, CBC, GFR, MG, BMP, ANEU #### [address] [address] Monocyte, Absolute 0.5 10 3/mcL Normal 0.1-1.4 [facility] ([place]) Comment on above: Performed By: #### A DIFF, CBC, GFR, MG, BMP, ANEU #### [address] [address] Monocytes/100 WBC (Bld) 7.9 % Normal 2.0-13.0 [facility] ([place]) Comment on above: Performed By: #### A DIFF, CBC, GFR, MG, BMP, ANEU #### [address] [address] Neutrophils/100 WBC (Bld) 67.1 % Normal 50.0-75.0 [facility] ([place]) Comment on above: Performed By: #### A DIFF, CBC, GFR, MG, BMP, ANEU #### [place] [address] .GFRon 05-26-2024 GFR >60 Normal [facility] ([place]) Comment on above: Result Comment: GFR Population mean for , Non- Americans Ages 20-29 = 116 mL/min/1.73 sq.m. Ages 30-39 = 107 mL/min/1.73 sq.m. Ages 40-49 = 99 mL/min/1.73 sq.m. Ages 50-59 = 93 mL/min/1.73 sq.m. Ages 60-69 = 85 mL/min/1.73 sq.m. Ages 70+ = 75 mL/min/1.73 sq.m. Chronic Kidney Disease: Less than 60 mL/min/1.73 square meters End Stage Renal Disease: Less than 15 mL/min/1.73 square meters Performed By: #### A DIFF, CBC, GFR, MG, BMP, ANEU #### [place] [address] GFR Non- >60 Normal [facility] ([place]) Comment on above: Result Comment: GFR Population mean for , Non- Americans Ages 20-29 = 116 mL/min/1.73 sq.m. Ages 30-39 = 107 mL/min/1.73 sq.m. Ages 40-49 = 99 mL/min/1.73 sq.m. Ages 50-59 = 93 mL/min/1.73 sq.m. Ages 60-69 = 85 mL/min/1.73 sq.m. Ages 70+ = 75 mL/min/1.73 sq.m. Chronic Kidney Disease: Less than 60 mL/min/1.73 square meters End Stage Renal Disease: Less than 15 mL/min/1.73 square meters Performed By: #### A DIFF, CBC, GFR, MG, BMP, ANEU #### [place] [address] .NEUABSon 05-26-2024 Neutrophil, Absolute 4.6 10 3/mcL Normal 2.3-8.1 [facility] ([place]) Comment on above: Performed By: #### A DIFF, CBC, GFR, MG, BMP, ANEU #### [address] [address] BMPon 05-26-2024 BUN/Creatinine Ratio 24.3 ratio High 10.0-22.0 [facility] ([place]) Comment on above: Performed By: #### A DIFF, CBC, GFR, MG, BMP, ANEU #### [address] [address] Calcium [Mass/Vol] 9.1 mg/dL Normal 8.7-10.4 [facility] ([place]) Comment on above: Performed By: #### A DIFF, CBC, GFR, MG, BMP, ANEU #### [address] [address] Chloride [Moles/Vol] 107 mmol/L Normal 98-110 [facility] ([place] Comment on above: Performed By: #### A DIFF, CBC, GFR, MG, BMP, ANEU #### [address] [address] CO2 [Moles/Vol] 28 mmol/L Normal 22-32 [facility] ([place]) Comment on above: Performed By: #### A DIFF, CBC, GFR, MG, BMP, ANEU #### [address] [address] Creatinine [Mass/Vol] 0.70 mg/dL Normal 0.50-1.20 [facility] ([place]) Comment on above: Result Comment: Test ing performed on [employer] analyzer using enzymatic creatinine methodology. Performed By: #### A DIFF, CBC, GFR, MG, BMP, ANEU #### [address] [address] Electrolyte Balance 7.0 mEq/L Normal 4.0-15.0 [facility] ([place]) Comment on above: Performed By: #### A DIFF, CBC, GFR, MG, BMP, ANEU #### [address] [address] Glucose [Mass/Vol] 90 mg/dL Normal 82-115 [facility] ([place]) Comment on above: Performed By: #### A DIFF, CBC, GFR, MG, BMP, ANEU #### [address] [address] Potassium [Moles/Vol] 3.8 mmol/L Normal 3.5-5.0 [facility] ([place]) Comment on above: Performed By: #### A DIFF, CBC, GFR, MG, BMP, ANEU #### [place] [address] Sodium [Moles/Vol] 142 mmol/L Normal 136-145 [facility] ([place]) Comment on above: Performed By: #### A DIFF, CBC, GFR, MG, BMP, ANEU #### [place] [address] Urea nitrogen [Mass/Vol] 17.0 mg/dL Normal 8.0-22.0 [facility] ([place] Comment on above: Performed By: #### A DIFF, CBC, GFR, MG, BMP, ANEU #### [place] [address] CBCon 05-26-2024 Erythrocyte distribution width (RBC) [Ratio] 14.5 % Normal 11.5-15.5 [facility] ([place] Comment on above: Performed By: #### A DIFF, CBC, GFR, MG, BMP, ANEU #### [place] [address] Hematocrit (Bld) [Volume fraction] 37.3 % Normal 34.0-46.0 [facility] ([place] Comment on above: Performed By: #### A DIFF, CBC, GFR, MG, BMP, ANEU #### [place] [address] Hgb 13.2 G/dL Normal 12.0-16.0 [facility] ([place] Comment on above: Performed By: #### A DIFF, CBC, GFR, MG, BMP, ANEU #### [place] [address] MCH (RBC) [Entitic mass] 32.3 pg Normal 27.0-33.0 [facility] ([place] Comment on above: Performed By: #### A DIFF, CBC, GFR, MG, BMP, ANEU #### [place] [address] MCHC 35.4 G/dL Normal 32.0-36.0 [facility] ([place] Comment on above: Performed By: #### A DIFF, CBC, GFR, MG, BMP, ANEU #### [address] [address] MCV (RBC) [Entitic vol] 91.1 fL Normal 80.0-99.0 [facility] ([place] Comment on above: Performed By: #### A DIFF, CBC, GFR, MG, BMP, ANEU #### [place] [address] Platelet 154 10 3/mcL Normal 150-450 [facility] ([place] Comment on above: Performed By: #### A DIFF, CBC, GFR, MG, BMP, ANEU #### [place] [address] Platelet mean volume (Bld) [Entitic vol] 8.2 fL Normal 6.6-10.5 [facility] ([place] Comment on above: Performed By: #### A DIFF, CBC, GFR, MG, BMP, ANEU #### [address] [address] RBC 4.09 10 6/mcL Low 4.10-5.30 [facility] ([place] Comment on above: Performed By: #### A DIFF, CBC, GFR, MG, BMP, ANEU #### [address] [address] WBC 6.8 10 3/mcL Normal 4.5-10.8 [facility] ([place] Comment on above: Performed By: #### A DIFF, CBC, GFR, MG, BMP, ANEU #### [address] [address] LABORATORYOrdered By: SYSTEM SYSTEM on 05-26-2024 Basophils (Bld) [#/Vol] 0.0 103/mcL Normal 0.0 - 0.3 10^3/mcL AH Workflow SS Basophils/100 WBC (Bld) 0.6 % Normal 0.0 - 2.5 % AH Workflow SS Calcium [Mass/Vol] 9.1 mg/dL Normal 8.7 - 10. 4 mg/dL AH ADM SS Chloride [Moles/Vol] 107 mmol/L Normal 98 - 11 0 mEq/L ADM SS CO2 [Moles/Vol] 28 mmol/L Normal 22 - 32 mEq/L ADM SS Creatinine [Mass/Vol] 0.70 mg/dL Normal 0.50 - 1.20 mg/dL ADM SS Comment on above: Interpretive Data: T esting performed on [employer] analyzer using enzymatic creatinine methodology. Electrolyte Balance 7.0 mEq/L Normal 4.0 - 15 .0 mEq/L ADM SS Eosinophils (Bld) [#/Vol] 0.2 103/mcL Normal 0.0 - 0.7 10^3/mcL Workflow SS Eosinophils/100 WBC (Bld) 2.8 % Normal 0.0 - 6.0 % Workflow SS Erythrocyte distribution width (RBC) [Ratio] 14.5 % Normal 11.5 - 15.5 % Workflow SS GFR/1.73 sq M.predicted among blacks MDRD (S/P/Bld) [Vol rate/Area] ml/min/1.73sqm Invalid Interpretation Code ADM SS Comment on above: Interpretive Data: GFR Population mean for , Non- Americans Ages 20-29 = 116 mL/min/1.73 sq.m. Ages 30-39 = 107 mL/min/1.73 sq.m. Ages 40-49 = 99 mL/min/1.73 sq.m. Ages 50-59 = 93 mL/min/1.73 sq.m. Ages 60-69 = 85 mL/min/1.73 sq.m. Ages 70+ = 75 mL/min/1.73 sq.m. Chronic Kidney Disease: Less than 60 mL/min/1.73 square meters End Stage Renal Disease: Less than 15 mL/min/1.73 square meters GFR/1.73 sq M.predicted among non-blacks MDRD (S/P/Bld) [Vol rate/Area] ml/min/1.73sqm Invalid Interpretation Code ADM SS Comment on above: Interpretive Data: GFR Population mean for , Non- Americans Ages 20-29 = 116 mL/min/1.73 sq.m. Ages 30-39 = 107 mL/min/1.73 sq.m. Ages 40-49 = 99 mL/min/1.73 sq.m. Ages 50-59 = 93 mL/min/1.73 sq.m. Ages 60-69 = 85 mL/min/1.73 sq.m. Ages 70+ = 75 mL/min/1.73 sq.m. Chronic Kidney Disease: Less than 60 mL/min/1.73 square meters End Stage Renal Disease: Less than 15 mL/min/1.73 square meters Glucose [Mass/Vol] 90 mg/dL Normal 82 - 115 mg/dL AH ADM SS Hematocrit (Bld) [Volume fraction] 37.3 % Normal 34.0 - 46.0 % AH Workflow SS Hemoglobin (Bld) [Mass/Vol] 13.2 G/dL Normal 12.0 - 16.0 G/dL AH Workflow SS Lymphocytes (Bld) [#/Vol] 1.5 103/mcL Normal 0.9 - 4.3 10^3/mcL AH Workflow SS Lymphocytes/100 WBC (Bld) 21.6 % Normal 20.0 - 40.0 % AH Workflow SS Magnesium [Mass/Vol] 1.8 mg/dL Normal 1.6 - 2 .4 mg/dL ADM SS MCH (RBC) [Entitic mass] 32.3 pg Normal 27.0 - 33.0 pg AH Workflow SS MCHC 35.4 G/dL Normal 32.0 - 36.0 G/dL AH Workflow SS MCV (RBC) [Entitic vol] 91.1 fL Normal 80.0 - 99.0 fL AH Workflow SS Monocytes (Bld) [#/Vol] 0.5 103/mcL Normal 0.1 - 1.4 10^3/mcL AH Workflow SS Monocytes/100 WBC (Bld) 7.9 % Normal 2.0 - 13.0 % AH Workflow SS Neutrophils (Bld) [#/Vol] 4.6 103/mcL Normal 2.3 - 8.1 10^3/mcL AH Workflow SS Neutrophils/100 WBC (Bld) 67.1 % Normal 50.0 - 75.0 % AH Workflow SS Platelet mean volume (Bld) [Entitic vol] 8.2 fL Normal 6.6 - 10.5 fL AH Workflow SS Platelets (Bld) [#/Vol] 154 103/mcL Normal 150 - 450 10^3/mcL AH Workflow SS Potassium [Moles/Vol] 3.8 mmol/L Normal 3.5 - 5.0 mEq/L AH ADM SS RBC (Bld) [#/Vol] 4.09 106/mcL Low 4.10 - 5.3 0 10^6/mcL AH Workflow SS Sodium [Moles/Vol] 142 mmol/L Normal 136 - 145 mEq/L AH ADM SS Urea nitrogen [Mass/Vol] 17.0 mg/dL Normal 8.0 - 22.0 mg/dL AH ADM SS Urea nitrogen/Creatinine [Mass ratio] 24.3 ratio High 10.0 - 22.0 ratio AH ADM SS WBC (Bld) [#/Vol] 6.8 103/mcL Normal 4.5 - 10.8 10^3/mcL AH Workflow SS MGon 05-26-2024 Magnesium [Mass/Vol] 1.8 mg/dL Normal 1.6-2.4 [facility] ([place]) Comment on above: Performed By: #### A DIFF, CBC, GFR, MG, BMP, ANEU #### [address] [address] .Auto Diffon 05-25-2024 Basophil, Absolute 0.0 10 3/mcL Normal 0.0-0.3 [facility] ([place]) Comment on above: Performed By: #### C BC, GFR, BMP, MG, ADIFF, ANEU #### [address] [address] Basophils/100 WBC (Bld) 0.5 % Normal 0.0-2.5 [facility] ([place]) Comment on above: Performed By: #### C BC, GFR, BMP, MG, ADIFF, ANEU #### [address] [address] Eosinophil, Absolute 0.2 10 3/mcL Normal 0.0-0.7 [facility] ([place]) Comment on above: Performed By: #### C BC, GFR, BMP, MG, ADIFF, ANEU #### [address] [address] Eosinophils/100 WBC (Bld) 2.8 % Normal 0.0-6.0 [facility] ([place]) Comment on above: Performed By: #### C BC, GFR, BMP, MG, ADIFF, ANEU #### [address] [address] Lymphocyte, Absolute 1.6 10 3/mcL Normal 0.9-4.3 [facility] ([place]) Comment on above: Performed By: #### C BC, GFR, BMP, MG, ADIFF, ANEU #### [address] [address] Lymphocytes/100 WBC (Bld) 25.8 % Normal 20.0-40.0 [facility] ([place] Comment on above: Performed By: #### C BC, GFR, BMP, MG, ADIFF, ANEU #### [address] [address] Monocyte, Absolute 0.4 10 3/mcL Normal 0.1-1.4 [facility] ([place]) Comment on above: Performed By: #### C BC, GFR, BMP, MG, ADIFF, ANEU #### [address] [address] Monocytes/100 WBC (Bld) 6.9 % Normal 2.0-13.0 [facility] ([place] Comment on above: Performed By: #### C BC, GFR, BMP, MG, ADIFF, ANEU #### [address] [address] Neutrophils/100 WBC (Bld) 64.0 % Normal 50.0-75.0 [facility] ([place]) Comment on above: Performed By: #### C BC, GFR, BMP, MG, ADIFF, ANEU #### [address] [address] .GFRon 05-25-2024 GFR >60 Normal [facility] ([place]) Comment on above: Result Comment: GFR Population mean for , Non- Americans Ages 20-29 = 116 mL/min/1.73 sq.m. Ages 30-39 = 107 mL/min/1.73 sq.m. Ages 40-49 = 99 mL/min/1.73 sq.m. Ages 50-59 = 93 mL/min/1.73 sq.m. Ages 60-69 = 85 mL/min/1.73 sq.m. Ages 70+ = 75 mL/min/1.73 sq.m. Chronic Kidney Disease: Less than 60 mL/min/1.73 square meters End Stage Renal Disease: Less than 15 mL/min/1.73 square meters Performed By: #### A DIFF, CBC, GFR, MG, BMP, ANEU #### [address] [address] GFR Non- >60 Normal [facility] ([place] Comment on above: Result Comment: GFR Population mean for , Non- Americans Ages 20-29 = 116 mL/min/1.73 sq.m. Ages 30-39 = 107 mL/min/1.73 sq.m. Ages 40-49 = 99 mL/min/1.73 sq.m. Ages 50-59 = 93 mL/min/1.73 sq.m. Ages 60-69 = 85 mL/min/1.73 sq.m. Ages 70+ = 75 mL/min/1.73 sq.m. Chronic Kidney Disease: Less than 60 mL/min/1.73 square meters End Stage Renal Disease: Less than 15 mL/min/1.73 square meters Performed By: #### A DIFF, CBC, GFR, MG, BMP, ANEU #### [address] [address] .NEUABSon 05-25-2024 Neutrophil, Absolute 4.1 10 3/mcL Normal 2.3-8.1 [facility] ([place]) Comment on above: Performed By: #### C BC, GFR, BMP, MG, ADIFF, ANEU #### [address] [address] BMPon 05-25-2024 BUN/Creatinine Ratio 13.2 ratio Normal 10.0-22.0 [facility] ([place] Comment on above: Performed By: #### A DIFF, CBC, GFR, MG, BMP, ANEU #### [address] [address] Calcium [Mass/Vol] 9.4 mg/dL Normal 8.7-10.4 [facility] ([place]) Comment on above: Performed By: #### A DIFF, CBC, GFR, MG, BMP, ANEU #### [address] [address] Chloride [Moles/Vol] 108 mmol/L Normal 98-110 [facility] ([place] Comment on above: Performed By: #### A DIFF, CBC, GFR, MG, BMP, ANEU #### [address] [address] CO2 [Moles/Vol] 27 mmol/L Normal 22-32 [facility] ([place] Comment on above: Performed By: #### A DIFF, CBC, GFR, MG, BMP, ANEU #### [address] [address] Creatinine [Mass/Vol] 0.76 mg/dL Normal 0.50-1.20 [facility] ([place]) Comment on above: Result Comment: Test ing performed on [employer] analyzer using enzymatic creatinine methodology. Performed By: #### A DIFF, CBC, GFR, MG, BMP, ANEU #### [address] [address] Electrolyte Balance 7.0 mEq/L Normal 4.0-15.0 [facility] ([place]) Comment on above: Performed By: #### A DIFF, CBC, GFR, MG, BMP, ANEU #### [address] [address] Glucose [Mass/Vol] 98 mg/dL Normal 82-115 [facility] ([place]) Comment on above: Performed By: #### A DIFF, CBC, GFR, MG, BMP, ANEU #### [address] [address] Potassium [Moles/Vol] 3.9 mmol/L Normal 3.5-5.0 [facility] ([place] Comment on above: Performed By: #### A DIFF, CBC, GFR, MG, BMP, ANEU #### [address] [address] Sodium [Moles/Vol] 142 mmol/L Normal 136-145 [facility] ([place]) Comment on above: Performed By: #### A DIFF, CBC, GFR, MG, BMP, ANEU #### [address] [address] Urea nitrogen [Mass/Vol] 10.0 mg/dL Normal 8.0-22.0 [facility] ([place] Comment on above: Performed By: #### A DIFF, CBC, GFR, MG, BMP, ANEU #### [place] [address] CBCon 05-25-2024 Erythrocyte distribution width (RBC) [Ratio] 15.2 % Normal 11.5-15.5 [facility] ([place] Comment on above: Performed By: #### C BC, GFR, BMP, MG, ADIFF, ANEU #### [place] [address] Hematocrit (Bld) [Volume fraction] 35.9 % Normal 34.0-46.0 [facility] ([place] Comment on above: Performed By: #### C BC, GFR, BMP, MG, ADIFF, ANEU #### [place] [address] Hgb 12.9 G/dL Normal 12.0-16.0 [facility] ([place] Comment on above: Performed By: #### C BC, GFR, BMP, MG, ADIFF, ANEU #### [place] [address] MCH (RBC) [Entitic mass] 32.9 pg Normal 27.0-33.0 [facility] ([place] Comment on above: Performed By: #### C BC, GFR, BMP, MG, ADIFF, ANEU #### [place] [address] MCHC 36.1 G/dL High 32.0-36.0 [facility] ([place] Comment on above: Performed By: #### C BC, GFR, BMP, MG, ADIFF, ANEU #### [place] [address] MCV (RBC) [Entitic vol] 91.2 fL Normal 80.0-99.0 [facility] ([place] Comment on above: Performed By: #### C BC, GFR, BMP, MG, ADIFF, ANEU #### [place] [address] Platelet 162 10 3/mcL Normal 150-450 [facility] ([place] Comment on above: Performed By: #### C BC, GFR, BMP, MG, ADIFF, ANEU #### [address] [address] Platelet mean volume (Bld) [Entitic vol] 8.1 fL Normal 6.6-10.5 [facility] ([place] Comment on above: Performed By: #### C BC, GFR, BMP, MG, ADIFF, ANEU #### [place] [address] RBC 3.94 10 6/mcL Low 4.10-5.30 [facility] ([place] Comment on above: Performed By: #### C BC, GFR, BMP, MG, ADIFF, ANEU #### [address] [address] WBC 6.4 10 3/mcL Normal 4.5-10.8 [facility] ([place] Comment on above: Performed By: #### C BC, GFR, BMP, MG, ADIFF, ANEU #### [place] [address] LABORATORYOrdered By: SYSTEM SYSTEM on 05-25-2024 Basophils (Bld) [#/Vol] 0.0 103/mcL Normal 0.0 - 0.3 10^3/mcL Workflow SS Basophils/100 WBC (Bld) 0.5 % Normal 0.0 - 2.5 % Workflow SS Calcium [Mass/Vol] 9.4 mg/dL Normal 8.7 - 10. 4 mg/dL ADM SS Chloride [Moles/Vol] 108 mmol/L Normal 98 - 11 0 mEq/L AH ADM SS CO2 [Moles/Vol] 27 mmol/L Normal 22 - 32 mEq/L ADM SS Creatinine [Mass/Vol] 0.76 mg/dL Normal 0.50 - 1.20 mg/dL ADM SS Comment on above: Interpretive Data: T esting performed on [employer] analyzer using enzymatic creatinine methodology. Electrolyte Balance 7.0 mEq/L Normal 4.0 - 15 .0 mEq/L ADM SS Eosinophils (Bld) [#/Vol] 0.2 103/mcL Normal 0.0 - 0.7 10^3/mcL AH Workflow SS Eosinophils/100 WBC (Bld) 2.8 % Normal 0.0 - 6.0 % Workflow SS Erythrocyte distribution width (RBC) [Ratio] 15.2 % Normal 11.5 - 15.5 % Workflow SS GFR/1.73 sq M.predicted among blacks MDRD (S/P/Bld) [Vol rate/Area] ml/min/1.73sqm Invalid Interpretation Code [facility] Comment on above: Interpretive Data: GFR Population mean for , Non- Americans Ages 20-29 = 116 mL/min/1.73 sq.m. Ages 30-39 = 107 mL/min/1.73 sq.m. Ages 40-49 = 99 mL/min/1.73 sq.m. Ages 50-59 = 93 mL/min/1.73 sq.m. Ages 60-69 = 85 mL/min/1.73 sq.m. Ages 70+ = 75 mL/min/1.73 sq.m. Chronic Kidney Disease: Less than 60 mL/min/1.73 square meters End Stage Renal Disease: Less than 15 mL/min/1.73 square meters GFR/1.73 sq M.predicted among non-blacks MDRD (S/P/Bld) [Vol rate/Area] ml/min/1.73sqm Invalid Interpretation Code [facility] Comment on above: Interpretive Data: GFR Population mean for , Non- Americans Ages 20-29 = 116 mL/min/1.73 sq.m. Ages 30-39 = 107 mL/min/1.73 sq.m. Ages 40-49 = 99 mL/min/1.73 sq.m. Ages 50-59 = 93 mL/min/1.73 sq.m. Ages 60-69 = 85 mL/min/1.73 sq.m. Ages 70+ = 75 mL/min/1.73 sq.m. Chronic Kidney Disease: Less than 60 mL/min/1.73 square meters End Stage Renal Disease: Less than 15 mL/min/1.73 square meters Glucose [Mass/Vol] 98 mg/dL Normal 82 - 115 mg/dL [facility] Hematocrit (Bld) [Volume fraction] 35.9 % Normal 34.0 - 46.0 % Workflow SS Hemoglobin (Bld) [Mass/Vol] 12.9 G/dL Normal 12.0 - 16.0 G/dL AH Workflow SS Lymphocytes (Bld) [#/Vol] 1.6 103/mcL Normal 0.9 - 4.3 10^3/mcL AH Workflow SS Lymphocytes/100 WBC (Bld) 25.8 % Normal 20.0 - 40.0 % AH Workflow SS Magnesium [Mass/Vol] 2.0 mg/dL Normal 1.6 - 2 .4 mg/dL AH ADM SS MCH (RBC) [Entitic mass] 32.9 pg Normal 27.0 - 33.0 pg AH Workflow SS MCHC 36.1 G/dL High 32.0 - 36.0 G/dL AH Workflow SS MCV (RBC) [Entitic vol] 91.2 fL Normal 80.0 - 99.0 fL AH Workflow SS Monocytes (Bld) [#/Vol] 0.4 103/mcL Normal 0.1 - 1.4 10^3/mcL AH Workflow SS Monocytes/100 WBC (Bld) 6.9 % Normal 2.0 - 13.0 % AH Workflow SS Neutrophils (Bld) [#/Vol] 4.1 103/mcL Normal 2.3 - 8.1 10^3/mcL AH Workflow SS Neutrophils/100 WBC (Bld) 64.0 % Normal 50.0 - 75.0 % AH Workflow SS Platelet mean volume (Bld) [Entitic vol] 8.1 fL Normal 6.6 - 10.5 fL AH Workflow SS Platelets (Bld) [#/Vol] 162 103/mcL Normal 150 - 450 10^3/mcL AH Workflow SS Potassium [Moles/Vol] 3.9 mmol/L Normal 3.5 - 5.0 mEq/L AH ADM SS RBC (Bld) [#/Vol] 3.94 106/mcL Low 4.10 - 5.3 0 10^6/mcL AH Workflow SS Sodium [Moles/Vol] 142 mmol/L Normal 136 - 145 mEq/L AH ADM SS Urea nitrogen [Mass/Vol] 10.0 mg/dL Normal 8.0 - 22.0 mg/dL AH ADM SS Urea nitrogen/Creatinine [Mass ratio] 13.2 ratio Normal 10.0 - 22.0 ratio ADM SS WBC (Bld) [#/Vol] 6.4 103/mcL Normal 4.5 - 10.8 10^3/mcL AH Workflow SS MGon 05-25-2024 Magnesium [Mass/Vol] 2.0 mg/dL Normal 1.6-2.4 [facility] ([place] Comment on above: Performed By: #### A DIFF, CBC, GFR, MG, BMP, ANEU #### [address] [address] .Auto Diffon 05-24-2024 Basophil, Absolute 0.0 10 3/mcL Normal 0.0-0.3 [facility] ([place] Comment on above: Performed By: #### A DIFF, CBC, GFR, MG, BMP, ANEU #### [address] [address] Basophils/100 WBC (Bld) 0.6 % Normal 0.0-2.5 [facility] ([place] Comment on above: Performed By: #### A DIFF, CBC, GFR, MG, BMP, ANEU #### [address] [address] Eosinophil, Absolute 0.2 10 3/mcL Normal 0.0-0.7 [facility] ([place] Comment on above: Performed By: #### A DIFF, CBC, GFR, MG, BMP, ANEU #### [address] [address] Eosinophils/100 WBC (Bld) 2.9 % Normal 0.0-6.0 [facility] ([place] Comment on above: Performed By: #### A DIFF, CBC, GFR, MG, BMP, ANEU #### [address] [address] Lymphocyte, Absolute 1.5 10 3/mcL Normal 0.9-4.3 [facility] ([place] Comment on above: Performed By: #### A DIFF, CBC, GFR, MG, BMP, ANEU #### [address] [address] Lymphocytes/100 WBC (Bld) 24.8 % Normal 20.0-40.0 [facility] ([place] Comment on above: Performed By: #### A DIFF, CBC, GFR, MG, BMP, ANEU #### [address] [address] Monocyte, Absolute 0.5 10 3/mcL Normal 0.1-1.4 [facility] ([place] Comment on above: Performed By: #### A DIFF, CBC, GFR, MG, BMP, ANEU #### [address] [address] Monocytes/100 WBC (Bld) 7.7 % Normal 2.0-13.0 [facility] ([place] Comment on above: Performed By: #### A DIFF, CBC, GFR, MG, BMP, ANEU #### [address] [address] Neutrophils/100 WBC (Bld) 64.0 % Normal 50.0-75.0 [facility] ([place] Comment on above: Performed By: #### A DIFF, CBC, GFR, MG, BMP, ANEU #### [address] [address] .GFRon 05-24-2024 GFR >60 Normal [facility] ([place] Comment on above: Result Comment: GFR Population mean for , Non- Americans Ages 20-29 = 116 mL/min/1.73 sq.m. Ages 30-39 = 107 mL/min/1.73 sq.m. Ages 40-49 = 99 mL/min/1.73 sq.m. Ages 50-59 = 93 mL/min/1.73 sq.m. Ages 60-69 = 85 mL/min/1.73 sq.m. Ages 70+ = 75 mL/min/1.73 sq.m. Chronic Kidney Disease: Less than 60 mL/min/1.73 square meters End Stage Renal Disease: Less than 15 mL/min/1.73 square meters Performed By: #### A DIFF, CBC, GFR, MG, BMP, ANEU #### [address] [address] GFR Non- >60 Normal [facility] ([place] Comment on above: Result Comment: GFR Population mean for , Non- Americans Ages 20-29 = 116 mL/min/1.73 sq.m. Ages 30-39 = 107 mL/min/1.73 sq.m. Ages 40-49 = 99 mL/min/1.73 sq.m. Ages 50-59 = 93 mL/min/1.73 sq.m. Ages 60-69 = 85 mL/min/1.73 sq.m. Ages 70+ = 75 mL/min/1.73 sq.m. Chronic Kidney Disease: Less than 60 mL/min/1.73 square meters End Stage Renal Disease: Less than 15 mL/min/1.73 square meters Performed By: #### A DIFF, CBC, GFR, MG, BMP, ANEU #### [address] [address] .NEUABSon 05-24-2024 Neutrophil, Absolute 4.0 10 3/mcL Normal 2.3-8.1 [facility] ([place] Comment on above: Performed By: #### A DIFF, CBC, GFR, MG, BMP, ANEU #### [address] [address] BMPon 05-24-2024 BUN/Creatinine Ratio 15.0 ratio Normal 10.0-22.0 [facility] ([place] Comment on above: Performed By: #### A DIFF, CBC, GFR, MG, BMP, ANEU #### [address] [address] Calcium [Mass/Vol] 9.5 mg/dL Normal 8.7-10.4 [facility] ([place]) Comment on above: Performed By: #### A DIFF, CBC, GFR, MG, BMP, ANEU #### [address] [address] Chloride [Moles/Vol] 108 mmol/L Normal 98-110 [facility] ([place] Comment on above: Performed By: #### A DIFF, CBC, GFR, MG, BMP, ANEU #### [address] [address] CO2 [Moles/Vol] 30 mmol/L Normal 22-32 [facility] ([place] Comment on above: Performed By: #### A DIFF, CBC, GFR, MG, BMP, ANEU #### [address] [address] Creatinine [Mass/Vol] 0.80 mg/dL Normal 0.50-1.20 [facility] ([place]) Comment on above: Result Comment: Test ing performed on [employer] analyzer using enzymatic creatinine methodology. Performed By: #### A DIFF, CBC, GFR, MG, BMP, ANEU #### [place] [id number] Electrolyte Balance 5.0 mEq/L Normal 4.0-15.0 [facility] ([place] Comment on above: Performed By: #### A DIFF, CBC, GFR, MG, BMP, ANEU #### [place] [id number] Glucose [Mass/Vol] 107 mg/dL Normal 82-115 [facility] ([place] Comment on above: Performed By: #### A DIFF, CBC, GFR, MG, BMP, ANEU #### [place] [address] Potassium [Moles/Vol] 4.3 mmol/L Normal 3.5-5.0 [facility] ([place]) Comment on above: Performed By: #### A DIFF, CBC, GFR, MG, BMP, ANEU #### [place] [id number] Sodium [Moles/Vol] 143 mmol/L Normal 136-145 [facility] ([place]) Comment on above: Performed By: #### A DIFF, CBC, GFR, MG, BMP, ANEU #### [place] [address] Urea nitrogen [Mass/Vol] 12.0 mg/dL Normal 8.0-22.0 [facility] ([place]) Comment on above: Performed By: #### A DIFF, CBC, GFR, MG, BMP, ANEU #### [place] [id number] CBCon 05-24-2024 Erythrocyte distribution width (RBC) [Ratio] 15.2 % Normal 11.5-15.5 [facility] ([place]) Comment on above: Performed By: #### A DIFF, CBC, GFR, MG, BMP, ANEU #### [place] [id number] Hematocrit (Bld) [Volume fraction] 37.8 % Normal 34.0-46.0 [facility] ([place] Comment on above: Performed By: #### A DIFF, CBC, GFR, MG, BMP, ANEU #### [place] [address] Hgb 13.2 G/dL Normal 12.0-16.0 [facility] ([place] Comment on above: Performed By: #### A DIFF, CBC, GFR, MG, BMP, ANEU #### [place] [address] MCH (RBC) [Entitic mass] 32.0 pg Normal 27.0-33.0 [facility] ([place] Comment on above: Performed By: #### A DIFF, CBC, GFR, MG, BMP, ANEU #### [place] [address] MCHC 34.9 G/dL Normal 32.0-36.0 [facility] ([place] Comment on above: Performed By: #### A DIFF, CBC, GFR, MG, BMP, ANEU #### [place] [address] MCV (RBC) [Entitic vol] 91.5 fL Normal 80.0-99.0 [facility] ([place] Comment on above: Performed By: #### A DIFF, CBC, GFR, MG, BMP, ANEU #### [place] [address] Platelet 163 10 3/mcL Normal 150-450 [facility] ([place] Comment on above: Performed By: #### A DIFF, CBC, GFR, MG, BMP, ANEU #### [place] [address] Platelet mean volume (Bld) [Entitic vol] 8.2 fL Normal 6.6-10.5 [facility] ([place]) Comment on above: Performed By: #### A DIFF, CBC, GFR, MG, BMP, ANEU #### [place] [address] RBC 4.13 10 6/mcL Normal 4.10-5.30 [facility] ([place]) Comment on above: Performed By: #### A DIFF, CBC, GFR, MG, BMP, ANEU #### [address] [address] WBC 6.2 10 3/mcL Normal 4.5-10.8 [facility] ([place] Comment on above: Performed By: #### A DIFF, CBC, GFR, MG, BMP, ANEU #### [address] [address] LABORATORYOrdered By: SYSTEM SYSTEM on 05-24-2024 Basophils (Bld) [#/Vol] 0.0 103/mcL Normal 0.0 - 0.3 10^3/mcL AH Workflow SS Basophils/100 WBC (Bld) 0.6 % Normal 0.0 - 2.5 % Workflow SS Calcium [Mass/Vol] 9.5 mg/dL Normal 8.7 - 10. 4 mg/dL ADM SS Chloride [Moles/Vol] 108 mmol/L Normal 98 - 11 0 mEq/L ADM SS CO2 [Moles/Vol] 30 mmol/L Normal 22 - 32 mEq/L ADM SS Creatinine [Mass/Vol] 0.80 mg/dL Normal 0.50 - 1.20 mg/dL ADM SS Comment on above: Interpretive Data: T esting performed on [employer] analyzer using enzymatic creatinine methodology. Electrolyte Balance 5.0 mEq/L Normal 4.0 - 15 .0 mEq/L ADM SS Eosinophils (Bld) [#/Vol] 0.2 103/mcL Normal 0.0 - 0.7 10^3/mcL Workflow SS Eosinophils/100 WBC (Bld) 2.9 % Normal 0.0 - 6.0 % AH Workflow SS Erythrocyte distribution width (RBC) [Ratio] 15.2 % Normal 11.5 - 15.5 % AH Workflow SS GFR/1.73 sq M.predicted among blacks MDRD (S/P/Bld) [Vol rate/Area] ml/min/1.73sqm Invalid Interpretation Code ADM SS Comment on above: Interpretive Data: GFR Population mean for , Non- Americans Ages 20-29 = 116 mL/min/1.73 sq.m. Ages 30-39 = 107 mL/min/1.73 sq.m. Ages 40-49 = 99 mL/min/1.73 sq.m. Ages 50-59 = 93 mL/min/1.73 sq.m. Ages 60-69 = 85 mL/min/1.73 sq.m. Ages 70+ = 75 mL/min/1.73 sq.m. Chronic Kidney Disease: Less than 60 mL/min/1.73 square meters End Stage Renal Disease: Less than 15 mL/min/1.73 square meters GFR/1.73 sq M.predicted among non-blacks MDRD (S/P/Bld) [Vol rate/Area] ml/min/1.73sqm Invalid Interpretation Code ADM SS Comment on above: Interpretive Data: GFR Population mean for , Non- Americans Ages 20-29 = 116 mL/min/1.73 sq.m. Ages 30-39 = 107 mL/min/1.73 sq.m. Ages 40-49 = 99 mL/min/1.73 sq.m. Ages 50-59 = 93 mL/min/1.73 sq.m. Ages 60-69 = 85 mL/min/1.73 sq.m. Ages 70+ = 75 mL/min/1.73 sq.m. Chronic Kidney Disease: Less than 60 mL/min/1.73 square meters End Stage Renal Disease: Less than 15 mL/min/1.73 square meters Glucose [Mass/Vol] 107 mg/dL Normal 82 - 115 mg/dL ADM SS Hematocrit (Bld) [Volume fraction] 37.8 % Normal 34.0 - 46.0 % AH Workflow SS Hemoglobin (Bld) [Mass/Vol] 13.2 G/dL Normal 12.0 - 16.0 G/dL AH Workflow SS Lymphocytes (Bld) [#/Vol] 1.5 103/mcL Normal 0.9 - 4.3 10^3/mcL Workflow SS Lymphocytes/100 WBC (Bld) 24.8 % Normal 20.0 - 40.0 % Workflow SS Magnesium [Mass/Vol] 2.1 mg/dL Normal 1.6 - 2 .4 mg/dL ADM SS MCH (RBC) [Entitic mass] 32.0 pg Normal 27.0 - 33.0 pg AH Workflow SS MCHC 34.9 G/dL Normal 32.0 - 36.0 G/dL AH Workflow SS MCV (RBC) [Entitic vol] 91.5 fL Normal 80.0 - 99.0 fL AH Workflow SS Monocytes (Bld) [#/Vol] 0.5 103/mcL Normal 0.1 - 1.4 10^3/mcL AH Workflow SS Monocytes/100 WBC (Bld) 7.7 % Normal 2.0 - 13.0 % AH Workflow SS Natriuretic peptide.B prohormone N-Terminal IA [Mass/Vol] 428 pg/mL Normal 0 - 900 pg/mL AH ADM SS Neutrophils (Bld) [#/Vol] 4.0 103/mcL Normal 2.3 - 8.1 10^3/mcL AH Workflow SS Neutrophils/100 WBC (Bld) 64.0 % Normal 50.0 - 75.0 % AH Workflow SS Platelet mean volume (Bld) [Entitic vol] 8.2 fL Normal 6.6 - 10.5 fL AH Workflow SS Platelets (Bld) [#/Vol] 163 103/mcL Normal 150 - 450 10^3/mcL AH Workflow SS Potassium [Moles/Vol] 4.3 mmol/L Normal 3.5 - 5.0 mEq/L AH ADM SS RBC (Bld) [#/Vol] 4.13 106/mcL Normal 4.10 - 5.3 0 10^6/mcL AH Workflow SS Sodium [Moles/Vol] 143 mmol/L Normal 136 - 145 mEq/L ADM SS Urea nitrogen [Mass/Vol] 12.0 mg/dL Normal 8.0 - 22.0 mg/dL ADM SS Urea nitrogen/Creatinine [Mass ratio] 15.0 ratio Normal 10.0 - 22.0 ratio AH ADM SS WBC (Bld) [#/Vol] 6.2 103/mcL Normal 4.5 - 10.8 10^3/mcL Workflow SS MGon 05-24-2024 Magnesium [Mass/Vol] 2.1 mg/dL Normal 1.6-2.4 [facility] ([place]) Comment on above: Performed By: #### A DIFF, CBC, GFR, MG, BMP, ANEU #### [address] [address] PBNPon 05-24-2024 Natriuretic peptide B (Bld) [Mass/Vol] 428 pg/mL Normal 0-900 [facility] ([place]) Comment on above: Performed By: #### A DIFF, CBC, GFR, MG, BMP, ANEU #### [address] [address] .Auto Diffon 05-23-2024 Basophil, Absolute 0.1 10 3/mcL Normal 0.0-0.3 [facility] ([place]) Comment on above: Performed By: #### A DIFF, CBC, GFR, MG, BMP, ANEU #### [address] [address] Basophils/100 WBC (Bld) 1.0 % Normal 0.0-2.5 [facility] ([place]) Comment on above: Performed By: #### A DIFF, CBC, GFR, MG, BMP, ANEU #### [address] [address] Eosinophil, Absolute 0.1 10 3/mcL Normal 0.0-0.7 [facility] ([place]) Comment on above: Performed By: #### A DIFF, CBC, GFR, MG, BMP, ANEU #### [address] [address] Eosinophils/100 WBC (Bld) 1.8 % Normal 0.0-6.0 [facility] ([place]) Comment on above: Performed By: #### A DIFF, CBC, GFR, MG, BMP, ANEU #### [address] [address] Lymphocyte, Absolute 1.3 10 3/mcL Normal 0.9-4.3 [facility] ([place]) Comment on above: Performed By: #### A DIFF, CBC, GFR, MG, BMP, ANEU #### [address] [address] Lymphocytes/100 WBC (Bld) 20.4 % Normal 20.0-40.0 [facility] ([place]) Comment on above: Performed By: #### A DIFF, CBC, GFR, MG, BMP, ANEU #### [address] [address] Monocyte, Absolute 0.4 10 3/mcL Normal 0.1-1.4 [facility] ([place]) Comment on above: Performed By: #### A DIFF, CBC, GFR, MG, BMP, ANEU #### [address] [address] Monocytes/100 WBC (Bld) 7.0 % Normal 2.0-13.0 [facility] ([place]) Comment on above: Performed By: #### A DIFF, CBC, GFR, MG, BMP, ANEU #### [address] [address] Neutrophils/100 WBC (Bld) 69.8 % Normal 50.0-75.0 [facility] ([place]) Comment on above: Performed By: #### A DIFF, CBC, GFR, MG, BMP, ANEU #### [address] [address] .GFRon 05-23-2024 GFR >60 Normal [facility] ([place]) Comment on above: Result Comment: GFR Population mean for , Non- Americans Ages 20-29 = 116 mL/min/1.73 sq.m. Ages 30-39 = 107 mL/min/1.73 sq.m. Ages 40-49 = 99 mL/min/1.73 sq.m. Ages 50-59 = 93 mL/min/1.73 sq.m. Ages 60-69 = 85 mL/min/1.73 sq.m. Ages 70+ = 75 mL/min/1.73 sq.m. Chronic Kidney Disease: Less than 60 mL/min/1.73 square meters End Stage Renal Disease: Less than 15 mL/min/1.73 square meters Performed By: #### A DIFF, CBC, GFR, MG, BMP, ANEU #### [address] [address] GFR Non- >60 Normal [facility] ([place]) Comment on above: Result Comment: GFR Population mean for , Non- Americans Ages 20-29 = 116 mL/min/1.73 sq.m. Ages 30-39 = 107 mL/min/1.73 sq.m. Ages 40-49 = 99 mL/min/1.73 sq.m. Ages 50-59 = 93 mL/min/1.73 sq.m. Ages 60-69 = 85 mL/min/1.73 sq.m. Ages 70+ = 75 mL/min/1.73 sq.m. Chronic Kidney Disease: Less than 60 mL/min/1.73 square meters End Stage Renal Disease: Less than 15 mL/min/1.73 square meters Performed By: #### A DIFF, CBC, GFR, MG, BMP, ANEU #### [address] [address] .NEUABSon 05-23-2024 Neutrophil, Absolute 4.3 10 3/mcL Normal 2.3-8.1 [facility] ([place]) Comment on above: Performed By: #### A DIFF, CBC, GFR, MG, BMP, ANEU #### [place] [address] BMPon 05-23-2024 BUN/Creatinine Ratio 17.1 ratio Normal 10.0-22.0 [facility] ([place]) Comment on above: Performed By: #### A DIFF, CBC, GFR, MG, BMP, ANEU #### [place] [address] Calcium [Mass/Vol] 9.1 mg/dL Normal 8.7-10.4 [facility] ([place]) Comment on above: Performed By: #### A DIFF, CBC, GFR, MG, BMP, ANEU #### [place] [address] Chloride [Moles/Vol] 111 mmol/L High 98-110 [facility] ([place]) Comment on above: Performed By: #### A DIFF, CBC, GFR, MG, BMP, ANEU #### [address] [address] CO2 [Moles/Vol] 27 mmol/L Normal 22-32 [facility] ([place]) Comment on above: Performed By: #### A DIFF, CBC, GFR, MG, BMP, ANEU #### [address] [address] Creatinine [Mass/Vol] 0.70 mg/dL Normal 0.50-1.20 [facility] ([place]) Comment on above: Result Comment: Test ing performed on [employer] analyzer using enzymatic creatinine methodology. Performed By: #### A DIFF, CBC, GFR, MG, BMP, ANEU #### [address] [address] Electrolyte Balance 6.0 mEq/L Normal 4.0-15.0 [facility] ([place]) Comment on above: Performed By: #### A DIFF, CBC, GFR, MG, BMP, ANEU #### [address] [address] Glucose [Mass/Vol] 108 mg/dL Normal 82-115 [facility] ([place]) Comment on above: Performed By: #### A DIFF, CBC, GFR, MG, BMP, ANEU #### [address] [address] Potassium [Moles/Vol] 4.0 mmol/L Normal 3.5-5.0 [facility] ([place]) Comment on above: Performed By: #### A DIFF, CBC, GFR, MG, BMP, ANEU #### [place] [id number] Sodium [Moles/Vol] 144 mmol/L Normal 136-145 [facility] ([place]) Comment on above: Performed By: #### A DIFF, CBC, GFR, MG, BMP, ANEU #### [address] [address] Urea nitrogen [Mass/Vol] 12.0 mg/dL Normal 8.0-22.0 [facility] ([place]) Comment on above: Performed By: #### A DIFF, CBC, GFR, MG, BMP, ANEU #### [address] [address] CBCon 05-23-2024 Erythrocyte distribution width (RBC) [Ratio] 14.8 % Normal 11.5-15.5 [facility] ([place] Comment on above: Performed By: #### A DIFF, CBC, GFR, MG, BMP, ANEU #### [address] [address] Hematocrit (Bld) [Volume fraction] 37.9 % Normal 34.0-46.0 [facility] ([place]) Comment on above: Performed By: #### A DIFF, CBC, GFR, MG, BMP, ANEU #### [place] [address] Hgb 13.6 G/dL Normal 12.0-16.0 [facility] ([place] Comment on above: Performed By: #### A DIFF, CBC, GFR, MG, BMP, ANEU #### [place] [address] MCH (RBC) [Entitic mass] 32.1 pg Normal 27.0-33.0 [facility] ([place]) Comment on above: Performed By: #### A DIFF, CBC, GFR, MG, BMP, ANEU #### [place] [address] MCHC 35.7 G/dL Normal 32.0-36.0 [facility] ([place]) Comment on above: Performed By: #### A DIFF, CBC, GFR, MG, BMP, ANEU #### [place] [address] MCV (RBC) [Entitic vol] 89.8 fL Normal 80.0-99.0 [facility] ([place]) Comment on above: Performed By: #### A DIFF, CBC, GFR, MG, BMP, ANEU #### [place] [address] Platelet 153 10 3/mcL Normal 150-450 [facility] ([place]) Comment on above: Performed By: #### A DIFF, CBC, GFR, MG, BMP, ANEU #### [place] [address] Platelet mean volume (Bld) [Entitic vol] 8.3 fL Normal 6.6-10.5 [facility] ([place]) Comment on above: Performed By: #### A DIFF, CBC, GFR, MG, BMP, ANEU #### [place] [address] RBC 4.23 10 6/mcL Normal 4.10-5.30 [facility] ([place]) Comment on above: Performed By: #### A DIFF, CBC, GFR, MG, BMP, ANEU #### [place] [address] WBC 6.2 10 3/mcL Normal 4.5-10.8 [facility] ([place]) Comment on above: Performed By: #### A DIFF, CBC, GFR, MG, BMP, ANEU #### [place] [address] DIGon 05-23-2024 LDose Digoxin: See eMAR Normal [facility] ([place]) Comment on above: Performed By: #### A DIFF, CBC, GFR, MG, BMP, ANEU #### [place] [address] Digoxin Level <0.14 Low 0.80-2.00 [facility] ([place]) Comment on above: Performed By: #### A DIFF, CBC, GFR, MG, BMP, ANEU #### [place] [address] LABORATORYOrdered By: SYSTEM SYSTEM on 05-23-2024 Digoxin [Mass/Vol] ng/mL Low 0.80 - 2. 00 ng/mL ADM SS Natriuretic peptide.B prohormone N-Terminal IA [Mass/Vol] 655 pg/mL Normal 0 - 900 pg/mL AH ADM SS TSH Qn 2.781 mIU/mL Normal 0.550 - 4.780 mIU/mL AH ADM SS Comment on above: Interpretive Data: * *Note - New Reference Range in effect 20 LABORATORYOrdered By: Melissa Saldana on 05-23-2024 LDose Digoxin: See eMAR (05/23/24 1:55 PM) Normal AH Chemistry S MGon 05-23-2024 Magnesium [Mass/Vol] 1.9 mg/dL Normal 1.6-2.4 [facility] ([place] Comment on above: Performed By: #### A DIFF, CBC, GFR, MG, BMP, ANEU #### [place] [address] PBNPon 05-23-2024 Natriuretic peptide B (Bld) [Mass/Vol] 655 pg/mL Normal 0-900 [facility] ([place]) Comment on above: Performed By: #### P BNP #### [place] [address] TSHRon 05-23-2024 TSH 2.781 mIU/mL Normal 0.550-4.780 [facility] ([place]) Comment on above: Result Comment: No te - New Reference Range in effect 20 Performed By: #### A DIFF, CBC, GFR, MG, BMP, ANEU #### [place] [address] .GFRon 04-04-2024 GFR 86 ml/min/1.73sqm Normal [facility] ([place]) Comment on above: Result Comment: GFR Population mean for , Non- Americans Ages 20-29 = 116 mL/min/1.73 sq.m. Ages 30-39 = 107 mL/min/1.73 sq.m. Ages 40-49 = 99 mL/min/1.73 sq.m. Ages 50-59 = 93 mL/min/1.73 sq.m. Ages 60-69 = 85 mL/min/1.73 sq.m. Ages 70+ = 75 mL/min/1.73 sq.m. Chronic Kidney Disease: Less than 60 mL/min/1.73 square meters End Stage Renal Disease: Less than 15 mL/min/1.73 square meters Performed By: #### A DIFF, CBC, GFR, MG, BMP, ANEU #### [place] [address] GFR Non- 71 ml/min/1.73sqm Normal [facility] ([place]) Comment on above: Result Comment: GFR Population mean for , Non- Americans Ages 20-29 = 116 mL/min/1.73 sq.m. Ages 30-39 = 107 mL/min/1.73 sq.m. Ages 40-49 = 99 mL/min/1.73 sq.m. Ages 50-59 = 93 mL/min/1.73 sq.m. Ages 60-69 = 85 mL/min/1.73 sq.m. Ages 70+ = 75 mL/min/1.73 sq.m. Chronic Kidney Disease: Less than 60 mL/min/1.73 square meters End Stage Renal Disease: Less than 15 mL/min/1.73 square meters Performed By: #### A DIFF, CBC, GFR, MG, BMP, ANEU #### [address] [address] BMPon 04-04-2024 BUN/Creatinine Ratio 15 ratio Normal 7-27 [facility] ([place]) Comment on above: Performed By: #### A DIFF, CBC, GFR, MG, BMP, ANEU #### [address] [address] Calcium [Mass/Vol] 9.3 mg/dL Normal 8.4-10.2 [facility] ([place]) Comment on above: Performed By: #### A DIFF, CBC, GFR, MG, BMP, ANEU #### [place] [address] Chloride [Moles/Vol] 102 mmol/L Normal 98-107 [facility] ([place]) Comment on above: Performed By: #### A DIFF, CBC, GFR, MG, BMP, ANEU #### [place] [address] CO2 [Moles/Vol] 31 mmol/L Normal 23-31 [facility] ([place]) Comment on above: Performed By: #### A DIFF, CBC, GFR, MG, BMP, ANEU #### [place] [address] Creatinine [Mass/Vol] 0.82 mg/dL Normal 0.55-1.02 [facility] ([place]) Comment on above: Performed By: #### A DIFF, CBC, GFR, MG, BMP, ANEU #### [place] [address] Electrolyte Balance 8.0 mEq/L Normal 4.0-15.0 [facility] ([place]) Comment on above: Performed By: #### A DIFF, CBC, GFR, MG, BMP, ANEU #### [place] [id number] Glucose [Mass/Vol] 97 mg/dL Normal 80-115 [facility] ([place]) Comment on above: Performed By: #### A DIFF, CBC, GFR, MG, BMP, ANEU #### [place] [id number] Potassium [Moles/Vol] 4.2 mmol/L Normal 3.5-5.1 [facility] ([place]) Comment on above: Performed By: #### A DIFF, CBC, GFR, MG, BMP, ANEU #### [address] [address] Sodium [Moles/Vol] 141 mmol/L Normal 136-145 [facility] ([place]) Comment on above: Performed By: #### A DIFF, CBC, GFR, MG, BMP, ANEU #### [place] [address] Urea nitrogen [Mass/Vol] 12 mg/dL Normal 7-18 [facility] ([place] Comment on above: Performed By: #### A DIFF, CBC, GFR, MG, BMP, ANEU #### [place] [address] DIGon 04-04-2024 LDose Digoxin: Unknown Normal [facility] ([place] Comment on above: Performed By: #### A DIFF, CBC, GFR, MG, BMP, ANEU #### [place] [address] Digoxin Level 0.27 ng/mL Low 0.90-2.00 [facility] ([place]) Comment on above: Performed By: #### A DIFF, CBC, GFR, MG, BMP, ANEU #### [place] [address] LABORATORYOrdered By: SYSTEM SYSTEM on 04-04-2024 Calcium [Mass/Vol] 9.3 mg/dL Normal 8.4 - 10. 2 mg/dL AO ADM SS Chloride [Moles/Vol] 102 mmol/L Normal 98 - 10 7 mmol/L AO ADM SS CO2 [Moles/Vol] 31 mmol/L Normal 23 - 31 mmol/L AO ADM SS Creatinine [Mass/Vol] 0.82 mg/dL Normal 0.55 - 1.02 mg/dL AO ADM SS Digoxin [Mass/Vol] 0.27 ng/mL Low 0.90 - 2. 00 ng/mL AO ADM SS Electrolyte Balance 8.0 mEq/L Normal 4.0 - 15 .0 mEq/L AO ADM SS GFR/1.73 sq M.predicted among blacks MDRD (S/P/Bld) [Vol rate/Area] 86 ml/min/1.73sqm Invalid Interpretation Code AO Chemistry S Comment on above: Interpretive Data: GFR Population mean for , Non- Americans Ages 20-29 = 116 mL/min/1.73 sq.m. Ages 30-39 = 107 mL/min/1.73 sq.m. Ages 40-49 = 99 mL/min/1.73 sq.m. Ages 50-59 = 93 mL/min/1.73 sq.m. Ages 60-69 = 85 mL/min/1.73 sq.m. Ages 70+ = 75 mL/min/1.73 sq.m. Chronic Kidney Disease: Less than 60 mL/min/1.73 square meters End Stage Renal Disease: Less than 15 mL/min/1.73 square meters GFR/1.73 sq M.predicted among non-blacks MDRD (S/P/Bld) [Vol rate/Area] 71 ml/min/1.73sqm Invalid Interpretation Code AO Chemistry S Comment on above: Interpretive Data: GFR Population mean for , Non- Americans Ages 20-29 = 116 mL/min/1.73 sq.m. Ages 30-39 = 107 mL/min/1.73 sq.m. Ages 40-49 = 99 mL/min/1.73 sq.m. Ages 50-59 = 93 mL/min/1.73 sq.m. Ages 60-69 = 85 mL/min/1.73 sq.m. Ages 70+ = 75 mL/min/1.73 sq.m. Chronic Kidney Disease: Less than 60 mL/min/1.73 square meters End Stage Renal Disease: Less than 15 mL/min/1.73 square meters Glucose [Mass/Vol] 97 mg/dL Normal 80 - 115 mg/dL AO ADM SS Potassium [Moles/Vol] 4.2 mmol/L Normal 3.5 - 5.1 mmol/L AO ADM SS Sodium [Moles/Vol] 141 mmol/L Normal 136 - 145 mmol/L AO ADM SS Urea nitrogen [Mass/Vol] 12 mg/dL Normal 7 - 18 mg/dL AO ADM SS Urea nitrogen/Creatinine [Mass ratio] 15 ratio Normal 7 - 27 ratio AO ADM SS LABORATORYOrdered By: Shira Garzon on 04-04-2024 LDose Digoxin: Unknown (04/04/24 8:12 AM) Normal AO Chemistry S CNPNon 08-27-2023 CNPN Telephone ([facility]) DORCAS ANGULO ([id number]) 1960 F Date Time Provider Department 08/27/23 DEISY MENDOZA [facility] During your visit today, we recorded the following information about you: Deisy Mendoza PA-C 08/27/2023 7:17 AM Signed Call and let patient know she was positive for COVID-19. If she is interested in antiviral treatment I can print her off a prescription for molnupiravir. Would recommend a 5-day quarantine followed by 5 days of a mask. Follow-up with primary care if not improving. Livier Melvin 08/27/2023 7:37 AM Signed Patient given results and verbalized understanding of instructions given. Livier Melvin Allergies As of Date: 08/27/2023 Noted Allergy Reaction BACTRIM (SULFAMETHOXAZOLE-TRIM ETH*02/10/2016 4 - Hives CODEINE 02/10/2016 14 - Other: See Comments Comments: Hallucinations DILAUDID (HYDROMORPHONE (BULK)) 02/10/2016 14 - Other: See Comments Comments: Dizziness and severe nausea IODINE 02/21/2016 7 - Swelling Comments: tightness of neck and chest upon iv dye administration. kmr MORPHINE 02/10/2016 4 - Hives MOTRIN (IBUPROFEN) 02/10/2016 4 - Hives Date Reviewed: 08/26/2023 Reviewed by: Phil Márquez APRN.[employer] - Fully Assessed Reason for Visit: Results [95] Prescriptions as of 08/27/2023 - colchicine 0.6 mg tablet TAKE 1 TABLET BY MOUTH TWO TIMES EVERY DAY- TAKE WITH FOOD - pantoprazole DR (PROTONIX) 40 mg tablet Take 1 tablet by mouth every afternoon. - potassium chloride ER (KLOR-CON M20) 20 mEq tablet Dose : 20 mEq = 1 tab(s), Oral, qDay, # 30 tab(s), 3 Refill(s), Pharmacy: [facility], 167.6, cm, 04/08/23 13:33:00 EDT, Height, kg, 04/08/23 13:33:00 EDT, Dosing Weight - Tadalafil (CIALIS) 20 mg tab(s) Take 20 mg by mouth once daily. - dofetilide (TIKOSYN) 250 mcg capsule Dose : 500 mcg = 2 cap(s), Oral, BID - rivaroxaban (XARELTO) 20 mg tablet 20 mg. - bumetanide (BUMEX) 1 mg tablet TAKE 1 TABLET BY MOUTH EVERY DAY NEEDED FOR SWELLINGWEIGHT GAIN - cholecalciferol (VITAMIN D3) 5,000 unit tab q 24 HR. - aspirin, enteric coated (ASPIRIN, ENTERIC COATED) 81 mg EC tablet 81 mg. - busPIRone (BUSPAR) 5 mg tablet - Magnesium Oxide 250 mg magnesium tab 500 mg. - nitroglycerin sublingual (NITROQUICK) 0.3 mg SL tablet Dissolve 1 tablet under the tongue one time only for 1 dose. To be administered in Radiology for CTA exam - metoprolol (LOPRESSOR) 5 mg/5 mL injection 5 mg Metoprolol IV dose increments over 3-5 minutes. May give additional 5mg Metoprolol every 5 minutes until target heart rate achieved, or maximum dosage of 30 mg of Metoprolol. - carvedilol (COREG) 12.5 mg tablet Take 0.5 tablets by mouth twice daily. - NETTLE LEAF ORAL Take by mouth. - MILK THISTLE ORAL Take by mouth. - DANDELION ORAL Take by mouth. - RED CLOVER ORAL Take by mouth. - BURDOCK ROOT ORAL Take by mouth. - diphenhydrAMINE (BENADRYL) 50 mg capsule Take 1 capsule by mouth as directed for 1 dose. one (1) hour prior to exam. Problem List As Of Date 08/27/2023 Noted Resolved Allergy [T78.40XA] 02/27/2016 Encounter Status:Closed by LIVIER MELVIN on 08/27/23 Normal [facility] Telephone ([facility]) DORCAS ANGULO ([id number]) 1960 F Date Time Provider Department 08/27/23 DEISY MENDOZA [facility] During your visit today, we recorded the following information about you: Deisy Mendoza PA-C 08/27/2023 8:13 AM Signed Molnupiravir Eligibility and Patient Discussion Formulary Restriction Criteria: Adult outpatients 18 years and older with ALL of the following: [x] Patient has symptoms for 5 days or less [x] Not requiring hospitalization at any time for management of COVID-19 [x] Not requiring supplemental oxygen or a change in baseline supplemental oxygen [x] Not utilized for pre-exposure or post-exposure prophylaxis for prevention of COVID-19 [x] Patient is not or lactating [x] Meeting at least one of the criteria for high risk of progression to severe COVID-19: [] Age over 65 years [] Cancer [] Chronic kidney disease [] Chronic liver disease [] Chronic lung diseases, including cystic fibrosis [] Dementia or other neurological conditions [] Diabetes (type 1 or type 2) [] Disabilities, including Down syndrome and neurodevelopmental disorders [x] Heart conditions [] HIV infection [] Immunocompromised state [] Mental health conditions [] Medical related technological dependence (tracheostomy, gastrostomy, or positive pressure ventilation (not related to COVID) [] Overweight and obesity (BMI greater or equal to 25 for adults) [] Physical inactivity [] Sickle cell disease or thalassemia [] Smoking, current or former [] Solid organ or blood stem cell transplant [] Stroke or cerebrovascular disease [] Substance use disorders [] Tuberculosis [] People from racial and ethnic minority groups Criteria above are met: Yes Date of Symptom Onset: Patient received COVID vaccine: / status reviewed: Females: [x] Patient is not currently and there is no possibility the patient could be (select one of the following): [] test does not need to be confirmed in patients who have undergone permanent sterilization, are currently using an intrauterine system or contraceptive implant, or in whom is not possible. [] Patients not meeting conditions above: assess whether the patient is based on the first day of the last menstrual period in individuals who have regular menstrual cycles, is using reliable method of contraception correctly and consistently or have had a negative test [] A test is recommended if the individual has irregular menstrual cycles, is unsure of the first day of the last menstrual period or is not using effective contraception correctly and consistently [] Patient is not currently . is not recommended during treatment and for four days after final dose of molnupiravir. [] Females have been advised to use a reliable method of contraception correctly and consistently for the duration of treatment and for four days after the last dose of molnupiravir Males: [] Sexually active male with partner(s) of childbearing potential has been advised to use a reliable method of contraception correctly and consistently for intercourse for the duration of treatment and for three months after the last dose of molnupiravir I have discussed the use of the investigational therapeutic, molnupiravir, for the treatment of mild to moderate COVID-19 and its use under Emergency Use Authorization with the patient. The patient was informed that molnupiravir is not an FDA approved drug and that it is authorized for use under this Emergency Use Authorization. The patient was also informed of the significant known benefits and potential risks of molnupiravir, and the extent to which such potential risks and benefits are unknown. The patient was informed that there is mandatory reporting of all medication errors and serious adverse events potentially related to molnupiravir treatment within 7 calendar days from the onset of the event and that events up to 28 days after completion of therapy need to be reported. The discussion included alternatives to receiving molnupiravir, including clinical trials, and potential the risks and benefits of those alternatives. The patient was provided electronically with the Fact Sheet for Patients, Parents and Caregivers . The patient was also instructed that in addition to the treatment with molnupiravir, he/she should continue to self-isolate and use infection control measures (e.g., wear mask, isolate, social distance, avoid sharing personal items, clean and disinfect high touch surfaces, and frequent handwashing) according to CDC guidelines. The patient stated understanding and gave verbal consent to proceeding with molnupiravir treatment. Deisy Mendoza PA-C August 27, 2023 8:12 AM Deisy Mendoza, (more content not included)... Normal [facility] CNOVon 08-26-2023 CNOV Office Visit (UCWSTR ) DORCAS ANGULO ([id number]) 1960 F Date Time Provider Department 08/26/23 5:15 PM PHIL MÁRQUEZ [facility] During your visit today, we recorded the following information about you: Temperature Pulse Respiration Blood pressure 102.4 degrees 96/minute 18/minute 110/72 Weight 77.1 kg Phil Márquez APRN.[employer] 08/26/2023 6:02 PM Signed Subjective HPI Nontoxic-appearing female presents to urgent care with chief complaint of fever and cough. Duration of symptoms 2 days. Associated symptoms with today's chief complaint are on and off headache, muscle aches, fatigue, loose stools, nonproductive cough, and fever. Patient stated symptoms started abruptly. No OTC medications. Sick contact work similar signs symptoms. Patient denies any pain at this time. Patient denies any visual changes, visual disturbance, shortness of breath, rash, exercise intolerance, pleuritic pain, productive cough, abdominal pain, nausea, vomiting, chest pain, or change in bowel or bladder habits. Past medical history prescription medication use allergies reviewed. .Patient presents with: Nasal Congestion: drainage, nausea, bodyaches, fever x 2 days PAST MEDICAL HISTORY Diagnosis Date Atrial fibrillation (HCC) Cirrhosis (HCC) Essential hypertension Essential tremor Sleep apnea PAST SURGICAL HISTORY Procedure Laterality Date BLADDER SURGERY HX 1992 Bladder suspension FOOT SURGERY HX Left 2009 Bunion removed TONSILLECTOMY HX age 4 TUBAL LIGATION HX 1992 ALLERGIES Bactrim [Sulfamethoxazole-Trim ethoprim], Codeine, Dilaudid [Hydromorphone (Bulk)], Iodine, Morphine, and Motrin [Ibuprofen] MEDICATIONS potassium chloride ER (KLOR-CON M20) 20 mEq tablet Dose : 20 mEq = 1 tab(s), Oral, qDay, # 30 tab(s), 3 Refill(s), Pharmacy: [facility], 167.6, cm, 04/08/23 13:33:00 EDT, Height, kg, 04/08/23 13:33:00 EDT, Dosing Weight Tadalafil (CIALIS) 20 mg tab(s) Take 20 mg by mouth once daily. dofetilide (TIKOSYN) 250 mcg capsule Dose : 500 mcg = 2 cap(s), Oral, BID rivaroxaban (XARELTO) 20 mg tablet 20 mg. bumetanide (BUMEX) 1 mg tablet TAKE 1 TABLET BY MOUTH EVERY DAY NEEDED FOR SWELLINGWEIGHT GAIN cholecalciferol (VITAMIN D3) 5,000 unit tab q 24 HR. aspirin, enteric coated (ASPIRIN, ENTERIC COATED) 81 mg EC tablet 81 mg. busPIRone (BUSPAR) 5 mg tablet Magnesium Oxide 250 mg magnesium tab 500 mg. metoprolol (LOPRESSOR) 5 mg/5 mL injection 5 mg Metoprolol IV dose increments over 3-5 minutes. May give additional 5mg Metoprolol every 5 minutes until target heart rate achieved, or maximum dosage of 30 mg of Metoprolol. colchicine 0.6 mg tablet TAKE 1 TABLET BY MOUTH TWO TIMES EVERY DAY- TAKE WITH FOOD pantoprazole DR (PROTONIX) 40 mg tablet Take 1 tablet by mouth every afternoon. nitroglycerin sublingual (NITROQUICK) 0.3 mg SL tablet Dissolve 1 tablet under the tongue one time only for 1 dose. To be administered in Radiology for CTA exam (Patient not taking: Reported on 02/19/2023) carvedilol (COREG) 12.5 mg tablet Take 0.5 tablets by mouth twice daily. (Patient not taking: Reported on 08/26/2023) NETTLE LEAF ORAL Take by mouth. (Patient not taking: Reported on 04/12/2021 ) MILK THISTLE ORAL Take by mouth. (Patient not taking: Reported on 04/12/2021 ) DANDELION ORAL Take by mouth. (Patient not taking: Reported on 04/12/2021 ) RED CLOVER ORAL Take by mouth. (Patient not taking: Reported on 04/12/2021 ) BURDOCK ROOT ORAL Take by mouth. (Patient not taking: Reported on 04/12/2021 ) diphenhydrAMINE (BENADRYL) 50 mg capsule Take 1 capsule by mouth as directed for 1 dose. one (1) hour prior to exam. (Patient not taking: Reported on 09/13/2016) FAMILY HISTORY Problem Relation Age of Onset Cancer Father Lung-smoker Obesity Father Diabetes Paternal Aunt Thyroid Mother Heart Mother Congenital hole in heart Heart Father Pacemaker other (Leukemia [Other]) Brother Breast Cancer Paternal Grandmother Social History Tobacco Use Smoking status: Never Smokeless tobacco: Never Substance Use Topics Alcohol use: No Drug use: No BP 110/72 Pulse 96 Temp (!) 39.1 ?C (102.4 ?F) Resp 18 Wt 77.1 kg (170 lb) SpO2 95% BMI 27.44 kg/m? Review of Systems Constitutional: Positive for chills, fever and malaise/fatigue. HENT: Positive for congestion. Negative for ear discharge, ear pain, sinus pain and sore throat. Eyes: Negative for blurred vision, pain, discharge and redness. Respiratory: Positive for cough. Negative for hemoptysis, sputum production, shortness of breath, wheezing and stridor. Cardiovascular: Negative for chest pain. Gastrointestinal: Negative for abdominal pain, diarrhea, nausea and vomiting. Musculoskeletal: Positive for myalgias. Skin: Negative for itching and rash. Neurological: Positive for headaches. Negative (more content not included)... Normal [facility] INFLUENZA A&B MOLECULAR (POC )on 08-26-2023 Flu A (POCT) Negative Negative Flu B (POCT) Negative Negative Procedural Control Valid [facility] SARS-CoV-2 RNA Resp Ql SONJA+p robeon 08-26-2023 SARS-CoV-2 (COVID-19) RNA SONJA+probe Ql (Resp) COVID 19 RESULT: Detected The method used is RT-PCR or an equivalent NAAT method. Reference Range (the expected result in uninfected individuals): Not detected [facility] Comment on above: Performed By: #### [id number] #### [facility] CLIA [id number] [address] [place] [address] [place] .Auto Diffon 06-11-2023 Basophil, Absolute 0.1 10 3/mcL Normal 0.0-0.2 [facility] ([place]) Comment on above: Performed By: #### A DIFF, CBC, GFR, MG, BMP, ANEU #### [address] [address] Basophils/100 WBC (Bld) 1.0 % Normal 0.0-2.5 [facility] ([place]) Comment on above: Performed By: #### A DIFF, CBC, GFR, MG, BMP, ANEU #### [address] [address] Eosinophil, Absolute 0.2 10 3/mcL Normal 0.0-0.4 [facility] ([place]) Comment on above: Performed By: #### A DIFF, CBC, GFR, MG, BMP, ANEU #### [address] [address] Eosinophils/100 WBC (Bld) 3.0 % Normal 0.0-7.0 [facility] ([place] Comment on above: Performed By: #### A DIFF, CBC, GFR, MG, BMP, ANEU #### [address] [address] Lymphocyte, Absolute 1.3 10 3/mcL Normal 0.8-3.9 [facility] ([place]) Comment on above: Performed By: #### A DIFF, CBC, GFR, MG, BMP, ANEU #### [address] [address] Lymphocytes/100 WBC (Bld) 20.5 % Normal 10.0-50.0 [facility] ([place] Comment on above: Performed By: #### A DIFF, CBC, GFR, MG, BMP, ANEU #### [address] [address] Monocyte, Absolute 0.4 10 3/mcL Normal 0.2-1.0 [facility] ([place] Comment on above: Performed By: #### A DIFF, CBC, GFR, MG, BMP, ANEU #### [address] [address] Monocytes/100 WBC (Bld) 7.1 % Normal 1.7-13.0 [facility] ([place] Comment on above: Performed By: #### A DIFF, CBC, GFR, MG, BMP, ANEU #### [address] [address] Neutrophils/100 WBC (Bld) 68.4 % Normal 37.0-80.0 [facility] ([place] Comment on above: Performed By: #### A DIFF, CBC, GFR, MG, BMP, ANEU #### [address] [address] .GFRon 06-11-2023 GFR Non- 73 ml/min/1.73sqm Normal [facility] ([place]) Comment on above: Result Comment: GFR Population mean for , Non- Americans Ages 20-29 = 116 mL/min/1.73 sq.m. Ages 30-39 = 107 mL/min/1.73 sq.m. Ages 40-49 = 99 mL/min/1.73 sq.m. Ages 50-59 = 93 mL/min/1.73 sq.m. Ages 60-69 = 85 mL/min/1.73 sq.m. Ages 70+ = 75 mL/min/1.73 sq.m. Chronic Kidney Disease: Less than 60 mL/min/1.73 square meters End Stage Renal Disease: Less than 15 mL/min/1.73 square meters Performed By: #### A DIFF, CBC, GFR, MG, BMP, ANEU #### [address] [address] GFR 88 ml/min/1.73sqm Normal [facility] ([place] Comment on above: Result Comment: GFR Population mean for , Non- Americans Ages 20-29 = 116 mL/min/1.73 sq.m. Ages 30-39 = 107 mL/min/1.73 sq.m. Ages 40-49 = 99 mL/min/1.73 sq.m. Ages 50-59 = 93 mL/min/1.73 sq.m. Ages 60-69 = 85 mL/min/1.73 sq.m. Ages 70+ = 75 mL/min/1.73 sq.m. Chronic Kidney Disease: Less than 60 mL/min/1.73 square meters End Stage Renal Disease: Less than 15 mL/min/1.73 square meters Performed By: #### A DIFF, CBC, GFR, MG, BMP, ANEU #### [address] [address] .MDWon 06-11-2023 Monocyte Distribution Width 15.92 Normal 0.00-20.00 [facility] ([place]) Comment on above: Result Comment: For ED adult patients suspected of sepsis, MDW<=20.0 does not rule out sepsis or risk of sepsis Performed By: #### A DIFF, CBC, GFR, MG, BMP, ANEU #### [address] [address] .NEUABSon 06-11-2023 Neutrophil, Absolute 4.2 10 3/mcL Normal 2.9-6.2 [facility] ([place]) Comment on above: Performed By: #### A DIFF, CBC, GFR, MG, BMP, ANEU #### [place] [id number] BMPon 06-11-2023 BUN/Creatinine Ratio 16 ratio Normal 7-27 [facility] ([place]) Comment on above: Performed By: #### A DIFF, CBC, GFR, MG, BMP, ANEU #### [address] [address] Calcium [Mass/Vol] 9.3 mg/dL Normal 8.4-10.2 [facility] ([place]) Comment on above: Performed By: #### A DIFF, CBC, GFR, MG, BMP, ANEU #### [address] [address] Chloride [Moles/Vol] 104 mmol/L Normal 98-107 [facility] ([place]) Comment on above: Performed By: #### A DIFF, CBC, GFR, MG, BMP, ANEU #### [address] [address] CO2 [Moles/Vol] 30 mmol/L Normal 23-31 [facility] ([place]) Comment on above: Performed By: #### A DIFF, CBC, GFR, MG, BMP, ANEU #### [address] [address] Creatinine [Mass/Vol] 0.80 mg/dL Normal 0.55-1.02 [facility] ([place]) Comment on above: Performed By: #### A DIFF, CBC, GFR, MG, BMP, ANEU #### [address] [address] Electrolyte Balance 8.0 mEq/L Normal 4.0-15.0 [facility] ([place]) Comment on above: Performed By: #### A DIFF, CBC, GFR, MG, BMP, ANEU #### [place] [id number] Glucose [Mass/Vol] 97 mg/dL Normal 80-115 [facility] ([place]) Comment on above: Performed By: #### A DIFF, CBC, GFR, MG, BMP, ANEU #### [place] [id number] Potassium [Moles/Vol] 4.4 mmol/L Normal 3.5-5.1 [facility] ([place] Comment on above: Performed By: #### A DIFF, CBC, GFR, MG, BMP, ANEU #### [place] [id number] Sodium [Moles/Vol] 142 mmol/L Normal 136-145 [facility] ([place]) Comment on above: Performed By: #### A DIFF, CBC, GFR, MG, BMP, ANEU #### [place] [id number] Urea nitrogen [Mass/Vol] 13 mg/dL Normal 7-18 [facility] ([place] Comment on above: Performed By: #### A DIFF, CBC, GFR, MG, BMP, ANEU #### [address] [address] CBCon 06-11-2023 Erythrocyte distribution width (RBC) [Ratio] 14.7 % High 11.5-14.5 [facility] ([place] Comment on above: Performed By: #### A DIFF, CBC, GFR, MG, BMP, ANEU #### [address] [address] Hematocrit (Bld) [Volume fraction] 38.0 % Normal 37.0-47.0 [facility] ([place] Comment on above: Performed By: #### A DIFF, CBC, GFR, MG, BMP, ANEU #### [address] [address] Hgb 13.3 G/dL Normal 12.0-16.0 [facility] ([place] Comment on above: Performed By: #### A DIFF, CBC, GFR, MG, BMP, ANEU #### [place] [address] MCH (RBC) [Entitic mass] 30.8 pg Normal 27.0-31.2 [facility] ([place] Comment on above: Performed By: #### A DIFF, CBC, GFR, MG, BMP, ANEU #### [place] [address] MCHC 35.0 G/dL Normal 33.0-37.0 [facility] ([place] Comment on above: Performed By: #### A DIFF, CBC, GFR, MG, BMP, ANEU #### [place] [address] MCV (RBC) [Entitic vol] 88.1 fL Normal 80.0-94.0 [facility] ([place] Comment on above: Performed By: #### A DIFF, CBC, GFR, MG, BMP, ANEU #### [place] [address] Platelet 173 10 3/mcL Normal 130-400 [facility] ([place] Comment on above: Performed By: #### A DIFF, CBC, GFR, MG, BMP, ANEU #### [place] [address] Platelet mean volume (Bld) [Entitic vol] 7.8 fL Normal 7.4-10.4 [facility] ([place] Comment on above: Performed By: #### A DIFF, CBC, GFR, MG, BMP, ANEU #### [place] [address] RBC 4.31 10 6/mcL Normal 4.20-5.40 [facility] ([place] Comment on above: Performed By: #### A DIFF, CBC, GFR, MG, BMP, ANEU #### [address] [address] WBC 6.2 10 3/mcL Normal 4.6-10.8 [facility] ([place] Comment on above: Performed By: #### A DIFF, CBC, GFR, MG, BMP, ANEU #### [address] [address] LABORATORYOrdered By: SYSTEM SYSTEM on 06-11-2023 Basophil, Absolute 0.1 103/mcL Invalid Interpretation Code 0.0 - 0.2 10^3/mcL AO Workflow SS Basophils/100 WBC (Bld) 1.0 % Invalid Interpretation Code 0.0 - 2.5 % AO Workflow SS Calcium [Mass/Vol] 9.3 mg/dL Invalid Interpretation Code 8.4 - 10.2 mg/dL AO ADM SS Chloride [Moles/Vol] 104 mmol/L Invalid Interpretation Code 98 - 107 mmol/L AO ADM SS CO2 [Moles/Vol] 30 mmol/L Invalid Interpretation Code 23 - 31 mmol/L AO ADM SS Creatinine [Mass/Vol] 0.80 mg/dL Invalid Interpretation Code 0.55 - 1.02 mg/dL AO ADM SS Electrolyte Balance 8.0 mEq/L Invalid Interpretation Code 4.0 - 15.0 mEq/L AO ADM SS Eosinophil, Absolute 0.2 103/mcL Invalid Interpretation Code 0.0 - 0.4 10^3/mcL AO Workflow SS Eosinophils/100 WBC (Bld) 3.0 % Invalid Interpretation Code 0.0 - 7.0 % AO Workflow SS Erythrocyte distribution width (RBC) [Ratio] 14.7 % Invalid Interpretation Code 11.5 - 14.5 % AO Workflow SS GFR/1.73 sq M.predicted among blacks MDRD (S/P/Bld) [Vol rate/Area] 88 ml/min/1.73sqm Invalid Interpretation Code AO Chemistry S Comment on above: Interpretive Data: GFR Population mean for , Non- Americans Ages 20-29 = 116 mL/min/1.73 sq.m. Ages 30-39 = 107 mL/min/1.73 sq.m. Ages 40-49 = 99 mL/min/1.73 sq.m. Ages 50-59 = 93 mL/min/1.73 sq.m. Ages 60-69 = 85 mL/min/1.73 sq.m. Ages 70+ = 75 mL/min/1.73 sq.m. Chronic Kidney Disease: Less than 60 mL/min/1.73 square meters End Stage Renal Disease: Less than 15 mL/min/1.73 square meters GFR/1.73 sq M.predicted among non-blacks MDRD (S/P/Bld) [Vol rate/Area] 73 ml/min/1.73sqm Invalid Interpretation Code AO Chemistry S Comment on above: Interpretive Data: GFR Population mean for , Non- Americans Ages 20-29 = 116 mL/min/1.73 sq.m. Ages 30-39 = 107 mL/min/1.73 sq.m. Ages 40-49 = 99 mL/min/1.73 sq.m. Ages 50-59 = 93 mL/min/1.73 sq.m. Ages 60-69 = 85 mL/min/1.73 sq.m. Ages 70+ = 75 mL/min/1.73 sq.m. Chronic Kidney Disease: Less than 60 mL/min/1.73 square meters End Stage Renal Disease: Less than 15 mL/min/1.73 square meters Glucose [Mass/Vol] 97 mg/dL Invalid Interpretation Code 80 - 115 mg/dL AO ADM SS Hematocrit (Bld) [Volume fraction] 38.0 % Invalid Interpretation Code 37.0 - 47.0 % AO Workflow SS Hemoglobin (Bld) [Mass/Vol] 13.3 G/dL Invalid Interpretation Code 12.0 - 16.0 G/dL AO Workflow SS Lymphocyte, Absolute 1.3 103/mcL Invalid Interpretation Code 0.8 - 3.9 10^3/mcL AO Workflow SS Lymphocytes/100 WBC (Bld) 20.5 % Invalid Interpretation Code 10.0 - 50.0 % AO Workflow SS MCH (RBC) [Entitic mass] 30.8 pg Invalid Interpretation Code 27.0 - 31.2 pg AO Workflow SS MCHC 35.0 G/dL Invalid Interpretation Code 33.0 - 37.0 G/dL AO Workflow SS MCV (RBC) [Entitic vol] 88.1 fL Invalid Interpretation Code 80.0 - 94.0 fL AO Workflow SS Monocyte distribution width Auto (Bld) [Entitic vol] 15.92 1 Invalid Interpretation Code 0.00 - 20.00 AO Workflow SS Comment on above: Result Comment: For ED adult patients suspected of sepsis, MDW<=20.0 does not rule out sepsis or risk of sepsis Monocyte, Absolute 0.4 103/mcL Invalid Interpretation Code 0.2 - 1.0 10^3/mcL AO Workflow SS Monocytes/100 WBC (Bld) 7.1 % Invalid Interpretation Code 1.7 - 13.0 % AO Workflow SS Neutrophil, Absolute 4.2 103/mcL Invalid Interpretation Code 2.9 - 6.2 10^3/mcL AO Workflow SS Neutrophils/100 WBC (Bld) 68.4 % Invalid Interpretation Code 37.0 - 80.0 % AO Workflow SS Platelet mean volume (Bld) [Entitic vol] 7.8 fL Invalid Interpretation Code 7.4 - 10.4 fL AO Workflow SS Platelets (Bld) [#/Vol] 173 103/mcL Invalid Interpretation Code 130 - 400 10^3/mcL AO Workflow SS Potassium [Moles/Vol] 4.4 mmol/L Invalid Interpretation Code 3.5 - 5.1 mmol/L AO ADM SS RBC (Bld) [#/Vol] 4.31 106/mcL Invalid Interpretation Code 4.20 - 5.40 10^6/mcL AO Workflow SS Sodium [Moles/Vol] 142 mmol/L Invalid Interpretation Code 136 - 145 mmol/L AO ADM SS Troponin I.cardiac DL <= 0.01 ng/mL [Mass/Vol] 7.8 ng/L Invalid Interpretation Code 0.0 - 51.4 ng/L AO ADM SS Urea nitrogen [Mass/Vol] 13 mg/dL Invalid Interpretation Code 7 - 18 mg/dL AO ADM SS Urea nitrogen/Creatinine [Mass ratio] 16 ratio Invalid Interpretation Code 7 - 27 ratio AO ADM SS WBC (Bld) [#/Vol] 6.2 103/mcL Invalid Interpretation Code 4.6 - 10.8 10^3/mcL AO Workflow SS No Panel Informationon 06-11 NEGATED: Highlighted row [employer] - [facility] 06-11-2023 Troponin I High Sensitivity 7.8 ng/L Normal 0.0-51.4 [facility] ([place]) Comment on above: Performed By: #### A DIFF, CBC, GFR, MG, BMP, ANEU #### [address] [address] XR CHEST 1 VIEWon 06-11-2023 XR CHEST 1 VIEW ORIGINAL EXAMINATION: ONE XRAY VIEW OF THE CHEST06/11/2023 11:32 am CHEST ONE VIEW AP/PA COMPARISON: 05/31/2023, 05/17/2023 HISTORY: ORDERING SYSTEM PROVIDED HISTORY: Reason for Exam: chest pain FINDINGS: The heart size is stable. The aorta is atherosclerotic. There is a left atrial appendage clip. There is no focal consolidation, pleural effusion, or pneumothorax. No acute osseous abnormality. IMPRESSION: No acute radiographic findings. Interpreted by: Mariela Marshall MD Preliminary Report By: Mariela Marshall MD Electronically signed By Mariela Marshall MD Dictated Date: 06/11/2023 11:35:59 AM Prelim Date: 06/11/2023 11:36:50 AM Sign Date: 06/11/2023 11:36:50 AM Ordering Provider: JAVIER Alberto [facility] ([place]) .Auto Diffon 05-31-2023 Basophil, Absolute 0.1 10 3/mcL Normal 0.0-0.3 [facility] ([place]) Comment on above: Performed By: #### A DIFF, CBC, GFR, MG, BMP, ANEU #### [place] [address] Eosinophil, Absolute 0.3 10 3/mcL Normal 0.0-0.7 [facility] ([place]) Comment on above: Performed By: #### A DIFF, CBC, GFR, MG, BMP, ANEU #### [address] [address] Lymphocyte, Absolute 1.7 10 3/mcL Normal 0.9-4.3 [facility] ([place]) Comment on above: Performed By: #### A DIFF, CBC, GFR, MG, BMP, ANEU #### [address] [address] Monocyte, Absolute 0.7 10 3/mcL Normal 0.1-1.4 [facility] ([place]) Comment on above: Performed By: #### A DIFF, CBC, GFR, MG, BMP, ANEU #### [address] [address] .Auto DiffOrdered By: SYSTEM SYSTEM on 05-31-2023 Basophils/100 WBC (Bld) 0.8 % Normal 0.0-2.5 AH Workflow SS Comment on above: Performed By: #### A DIFF, CBC, GFR, MG, BMP, ANEU #### [address] [address] Eosinophils/100 WBC (Bld) 4.3 % Normal 0.0-6.0 AH Workflow SS Comment on above: Performed By: #### A DIFF, CBC, GFR, MG, BMP, ANEU #### [address] [address] Lymphocytes/100 WBC (Bld) 25.2 % Normal 20.0-40.0 AH Workflow SS Comment on above: Performed By: #### A DIFF, CBC, GFR, MG, BMP, ANEU #### [address] [address] Monocytes/100 WBC (Bld) 11.1 % Normal 2.0-13.0 AH Workflow SS Comment on above: Performed By: #### A DIFF, CBC, GFR, MG, BMP, ANEU #### [address] [address] Neutrophils/100 WBC (Bld) 58.6 % Normal 50.0-75.0 AH Workflow SS Comment on above: Performed By: #### A DIFF, CBC, GFR, MG, BMP, ANEU #### [address] [address] .GFRon 05-31-2023 GFR >60 Normal [facility] ([place]) Comment on above: Result Comment: GFR Population mean for , Non- Americans Ages 20-29 = 116 mL/min/1.73 sq.m. Ages 30-39 = 107 mL/min/1.73 sq.m. Ages 40-49 = 99 mL/min/1.73 sq.m. Ages 50-59 = 93 mL/min/1.73 sq.m. Ages 60-69 = 85 mL/min/1.73 sq.m. Ages 70+ = 75 mL/min/1.73 sq.m. Chronic Kidney Disease: Less than 60 mL/min/1.73 square meters End Stage Renal Disease: Less than 15 mL/min/1.73 square meters Performed By: #### A DIFF, CBC, GFR, MG, BMP, ANEU #### [address] [address] GFR Non- >60 Normal [facility] ([place]) Comment on above: Result Comment: GFR Population mean for , Non- Americans Ages 20-29 = 116 mL/min/1.73 sq.m. Ages 30-39 = 107 mL/min/1.73 sq.m. Ages 40-49 = 99 mL/min/1.73 sq.m. Ages 50-59 = 93 mL/min/1.73 sq.m. Ages 60-69 = 85 mL/min/1.73 sq.m. Ages 70+ = 75 mL/min/1.73 sq.m. Chronic Kidney Disease: Less than 60 mL/min/1.73 square meters End Stage Renal Disease: Less than 15 mL/min/1.73 square meters Performed By: #### A DIFF, CBC, GFR, MG, BMP, ANEU #### [address] [address] .MDWon 05-31-2023 Monocyte Distribution Width 17.23 Normal 0.00-20.00 [facility] ([place]) Comment on above: Result Comment: For ED adult patients suspected of sepsis, MDW<=20.0 does not rule out sepsis or risk of sepsis Performed By: #### A DIFF, CBC, GFR, MG, BMP, ANEU #### [place] [address] .NEUABSon 05-31-2023 Neutrophil, Absolute 3.9 10 3/mcL Normal 2.3-8.1 [facility] ([place]) Comment on above: Performed By: #### A DIFF, CBC, GFR, MG, BMP, ANEU #### [place] [address] BMPon 05-31-2023 BUN/Creatinine Ratio 15.3 ratio Normal 10.0-22.0 [facility] ([place]) Comment on above: Performed By: #### A DIFF, CBC, GFR, MG, BMP, ANEU #### [address] [address] BMPOrdered By: SYSTEM SYSTEM on 05-31-2023 Calcium [Mass/Vol] 9.3 mg/dL Normal 8.7-10.4 AH ADM SS Comment on above: Performed By: #### A DIFF, CBC, GFR, MG, BMP, ANEU #### [address] [address] Chloride [Moles/Vol] 102 mmol/L Normal 98-110 AH A DM SS Comment on above: Performed By: #### A DIFF, CBC, GFR, MG, BMP, ANEU #### [place] [id number] CO2 [Moles/Vol] 33 mmol/L High 22-32 AH ADM SS Comment on above: Performed By: #### A DIFF, CBC, GFR, MG, BMP, ANEU #### [place] [id number] Creatinine [Mass/Vol] 0.72 mg/dL Normal 0.50-1.20 AH ADM SS Comment on above: Performed By: #### A DIFF, CBC, GFR, MG, BMP, ANEU #### [address] [address] Electrolyte Balance 6.0 mEq/L Normal 4.0-15.0 AH AD M SS Comment on above: Performed By: #### A DIFF, CBC, GFR, MG, BMP, ANEU #### [place] [id number] Glucose [Mass/Vol] 82 mg/dL Normal 82-115 AH ADM SS Comment on above: Performed By: #### A DIFF, CBC, GFR, MG, BMP, ANEU #### [address] [address] Potassium [Moles/Vol] 3.8 mmol/L Normal 3.5-5.0 AH ADM SS Comment on above: Performed By: #### A DIFF, CBC, GFR, MG, BMP, ANEU #### [place] [id number] Sodium [Moles/Vol] 141 mmol/L Normal 136-145 AH ADM SS Comment on above: Performed By: #### A DIFF, CBC, GFR, MG, BMP, ANEU #### [place] [address] Urea nitrogen [Mass/Vol] 11.0 mg/dL Normal 8.0-22.0 AH ADM SS Comment on above: Performed By: #### A DIFF, CBC, GFR, MG, BMP, ANEU #### [place] [address] CBCOrdered By: SYSTEM SYSTEM on 05-31-2023 Erythrocyte distribution width (RBC) [Ratio] 14.9 % Normal 11.5-15.5 AH Workflow SS Comment on above: Performed By: #### A DIFF, CBC, GFR, MG, BMP, ANEU #### [place] [address] Hematocrit (Bld) [Volume fraction] 41.4 % Normal 34.0-46.0 AH Workflow SS Comment on above: Performed By: #### A DIFF, CBC, GFR, MG, BMP, ANEU #### [place] [address] MCH (RBC) [Entitic mass] 31.0 pg Normal 27.0-33.0 AH Workflow SS Comment on above: Performed By: #### A DIFF, CBC, GFR, MG, BMP, ANEU #### [place] [address] MCHC 34.5 G/dL Normal 32.0-36.0 AH Workflow SS Comment on above: Performed By: #### A DIFF, CBC, GFR, MG, BMP, ANEU #### [place] [address] MCV (RBC) [Entitic vol] 89.7 fL Normal 80.0-99.0 AH Workflow SS Comment on above: Performed By: #### A DIFF, CBC, GFR, MG, BMP, ANEU #### [place] [address] Platelet mean volume (Bld) [Entitic vol] 8.4 fL Normal 6.6-10.5 AH Workflow SS Comment on above: Performed By: #### A DIFF, CBC, GFR, MG, BMP, ANEU #### [address] [address] CBCon 05-31-2023 Hgb 14.3 G/dL Normal 12.0-16.0 [facility] ([place]) Comment on above: Performed By: #### A DIFF, CBC, GFR, MG, BMP, ANEU #### [address] [address] Platelet 165 10 3/mcL Normal 150-450 [facility] ([place]) Comment on above: Performed By: #### A DIFF, CBC, GFR, MG, BMP, ANEU #### [address] [address] RBC 4.61 10 6/mcL Normal 4.10-5.30 [facility] ([place] Comment on above: Performed By: #### A DIFF, CBC, GFR, MG, BMP, ANEU #### [address] [address] WBC 6.7 10 3/mcL Normal 4.5-10.8 [facility] ([place]) Comment on above: Performed By: #### A DIFF, CBC, GFR, MG, BMP, ANEU #### [address] [address] LABORATORYOrdered By: SYSTEM SYSTEM on 05-31-2023 Basophils (Bld) [#/Vol] 0.1 103/mcL Invalid Interpretation Code 0.0 - 0.3 10^3/mcL Workflow SS Eosinophils (Bld) [#/Vol] 0.3 103/mcL Invalid Interpretation Code 0.0 - 0.7 10^3/mcL Workflow SS GFR/1.73 sq M.predicted among blacks MDRD (S/P/Bld) [Vol rate/Area] ml/min/1.73sqm Invalid Interpretation Code AH ADM SS Comment on above: Interpretive Data: GFR Population mean for , Non- Americans Ages 20-29 = 116 mL/min/1.73 sq.m. Ages 30-39 = 107 mL/min/1.73 sq.m. Ages 40-49 = 99 mL/min/1.73 sq.m. Ages 50-59 = 93 mL/min/1.73 sq.m. Ages 60-69 = 85 mL/min/1.73 sq.m. Ages 70+ = 75 mL/min/1.73 sq.m. Chronic Kidney Disease: Less than 60 mL/min/1.73 square meters End Stage Renal Disease: Less than 15 mL/min/1.73 square meters GFR/1.73 sq M.predicted among non-blacks MDRD (S/P/Bld) [Vol rate/Area] ml/min/1.73sqm Invalid Interpretation Code AH ADM SS Comment on above: Interpretive Data: GFR Population mean for , Non- Americans Ages 20-29 = 116 mL/min/1.73 sq.m. Ages 30-39 = 107 mL/min/1.73 sq.m. Ages 40-49 = 99 mL/min/1.73 sq.m. Ages 50-59 = 93 mL/min/1.73 sq.m. Ages 60-69 = 85 mL/min/1.73 sq.m. Ages 70+ = 75 mL/min/1.73 sq.m. Chronic Kidney Disease: Less than 60 mL/min/1.73 square meters End Stage Renal Disease: Less than 15 mL/min/1.73 square meters Hemoglobin (Bld) [Mass/Vol] 14.3 G/dL Invalid Interpretation Code 12.0 - 16.0 G/dL AH Workflow SS Lymphocytes (Bld) [#/Vol] 1.7 103/mcL Invalid Interpretation Code 0.9 - 4.3 10^3/mcL AH Workflow SS Monocyte distribution width Auto (Bld) [Entitic vol] 17.23 1 Invalid Interpretation Code 0.00 - 20.00 Workflow SS Comment on above: Result Comment: For ED adult patients suspected of sepsis, MDW<=20.0 does not rule out sepsis or risk of sepsis Monocytes (Bld) [#/Vol] 0.7 103/mcL Invalid Interpretation Code 0.1 - 1.4 10^3/mcL AH Workflow SS Neutrophils (Bld) [#/Vol] 3.9 103/mcL Invalid Interpretation Code 2.3 - 8.1 10^3/mcL AH Workflow SS Platelets (Bld) [#/Vol] 165 103/mcL Invalid Interpretation Code 150 - 450 10^3/mcL AH Workflow SS RBC (Bld) [#/Vol] 4.61 106/mcL Invalid Interpretation Code 4.10 - 5.30 10^6/mcL Workflow SS Troponin I.cardiac DL <= 0.01 ng/mL [Mass/Vol] 5.87 ng/L Invalid Interpretation Code 0.00 - 34.00 ng/L ADM SS Comment on above: Interpretive Data: I f the High Sensitive Troponin result is below the 99th percentile value (<45 ng/L) at the first blood draw, at least two additional blood samples should be drawn before results are interpreted as negative for AMI. Urea nitrogen/Creatinine [Mass ratio] 15.3 ratio Invalid Interpretation Code 10.0 - 22.0 ratio ADM SS WBC (Bld) [#/Vol] 6.7 103/mcL Invalid Interpretation Code 4.5 - 10.8 10^3/mcL Workflow SS No Panel Informationon 05-31 NEGATED: Highlighted row [facility] (Radiology) TROPHSon 05-31-2023 Troponin I High Sensitivity 5.87 ng/L Normal 0.00-34.00 [facility] ([place]) Comment on above: Result Comment: If t he High Sensitive Troponin result is below the 99th percentile value (<45 ng/L) at the first blood draw, at least two additional blood samples should be drawn before results are interpreted as negative for AMI. Performed By: #### A DIFF, CBC, GFR, MG, BMP, ANEU #### [address] [address] XR CHEST 1 VIEWon 05-31-2023 XR CHEST 1 VIEW ORIGINAL EXAMINATION: ONE XRAY VIEW OF THE CHEST 05/31/2023 7:11 pm COMPARISON: May 17, 2023 HISTORY: ORDERING SYSTEM PROVIDED HISTORY: Reason for Exam: pain FINDINGS: The cardiomediastinal silhouette appears stable, including cardiac device. There is no focal consolidation. There is no pulmonary edema. There is no evidence of pleural effusion. There is no evidence of pneumothorax. No fracture is identified. IMPRESSION: No acute abnormality is identified. Interpreted by: David Palma Preliminary Report By: David Palma Electronically signed By David Palma Dictated Date: 05/31/2023 7:53:44 PM Prelim Date: 05/31/2023 7:54:07 PM Sign Date: 05/31/2023 7:54:07 PM Ordering Provider: RICHARD GILL [facility] ([place]) No Panel Informationon 05-17 NEGATED: Highlighted row [facility] (Radiology) LABORATORYOrdered By: SYSTEM SYSTEM on 05-05-2023 Calcium [Mass/Vol] 8.4 mg/dL Invalid Interpretation Code 8.7 - 10.4 mg/dL AH ADM SS Chloride [Moles/Vol] 109 mmol/L Invalid Interpretation Code 98 - 110 mEq/L AH ADM SS CO2 [Moles/Vol] 28 mmol/L Invalid Interpretation Code 22 - 32 mEq/L AH ADM SS Creatinine [Mass/Vol] 0.75 mg/dL Invalid Interpretation Code 0.50 - 1.20 mg/dL AH ADM SS Electrolyte Balance 4.0 mEq/L Invalid Interpretation Code 4.0 - 15.0 mEq/L AH ADM SS GFR/1.73 sq M.predicted among blacks MDRD (S/P/Bld) [Vol rate/Area] ml/min/1.73sqm Invalid Interpretation Code AH ADM SS Comment on above: Interpretive Data: GFR Population mean for , Non- Americans Ages 20-29 = 116 mL/min/1.73 sq.m. Ages 30-39 = 107 mL/min/1.73 sq.m. Ages 40-49 = 99 mL/min/1.73 sq.m. Ages 50-59 = 93 mL/min/1.73 sq.m. Ages 60-69 = 85 mL/min/1.73 sq.m. Ages 70+ = 75 mL/min/1.73 sq.m. Chronic Kidney Disease: Less than 60 mL/min/1.73 square meters End Stage Renal Disease: Less than 15 mL/min/1.73 square meters GFR/1.73 sq M.predicted among non-blacks MDRD (S/P/Bld) [Vol rate/Area] ml/min/1.73sqm Invalid Interpretation Code AH ADM SS Comment on above: Interpretive Data: GFR Population mean for , Non- Americans Ages 20-29 = 116 mL/min/1.73 sq.m. Ages 30-39 = 107 mL/min/1.73 sq.m. Ages 40-49 = 99 mL/min/1.73 sq.m. Ages 50-59 = 93 mL/min/1.73 sq.m. Ages 60-69 = 85 mL/min/1.73 sq.m. Ages 70+ = 75 mL/min/1.73 sq.m. Chronic Kidney Disease: Less than 60 mL/min/1.73 square meters End Stage Renal Disease: Less than 15 mL/min/1.73 square meters Glucose [Mass/Vol] 99 mg/dL Invalid Interpretation Code 82 - 115 mg/dL ADM SS Potassium [Moles/Vol] 4.1 mmol/L Invalid Interpretation Code 3.5 - 5.0 mEq/L AH ADM SS Sodium [Moles/Vol] 141 mmol/L Invalid Interpretation Code 136 - 145 mEq/L ADM SS Urea nitrogen [Mass/Vol] 18.0 mg/dL Invalid Interpretation Code 8.0 - 22.0 mg/dL ADM SS Urea nitrogen/Creatinine [Mass ratio] 24.0 ratio Invalid Interpretation Code 10.0 - 22.0 ratio ADM SS LABORATORYOrdered By: SYSTEM SYSTEM on 05-04-2023 Magnesium [Mass/Vol] 2.3 mg/dL Invalid Interpretation Code 1.6 - 2.4 mg/dL ADM SS Albumin BCP dye [Mass/Vol] 2.8 G/dL Invalid Interpretation Code 3.2 - 4.8 G/dL ADM SS Albumin/Globulin [Mass ratio] 1.0 {ratio} Invalid Interpretation Code 0.9 - 1.6 ratio ADM SS ALP [Catalytic activity/Vol] 81 U/L Invalid Interpretation Code 38 - 126 U/L ADM SS ALT No additional P-5'-P [Catalytic activity/Vol] 22 U/L Invalid Interpretation Code 10 - 49 U/L ADM SS AST [Catalytic activity/Vol] 32 U/L Invalid Interpretation Code 8 - 34 U/L ADM SS Basophils (Bld) [#/Vol] 0.0 103/mcL Invalid Interpretation Code 0.0 - 0.3 10^3/mcL Workflow SS Basophils/100 WBC (Bld) 0.6 % Invalid Interpretation Code 0.0 - 2.5 % Workflow SS Bilirubin [Mass/Vol] 0.80 mg/dL Invalid Interpretation Code 0.20 - 1.20 mg/dL ADM SS Comment on above: Interpretive Data: U se of this assay is not recommended for patients undergoing treatment with eltrombopag due to the potential for falsely elevated results. Calcium [Mass/Vol] 8.8 mg/dL Invalid Interpretation Code 8.7 - 10.4 mg/dL AH ADM SS Chloride [Moles/Vol] 107 mmol/L Invalid Interpretation Code 98 - 110 mEq/L AH ADM SS CO2 [Moles/Vol] 29 mmol/L Invalid Interpretation Code 22 - 32 mEq/L AH ADM SS Creatinine [Mass/Vol] 0.75 mg/dL Invalid Interpretation Code 0.50 - 1.20 mg/dL AH ADM SS Electrolyte Balance 6.0 mEq/L Invalid Interpretation Code 4.0 - 15.0 mEq/L AH ADM SS Eosinophils (Bld) [#/Vol] 0.2 103/mcL Invalid Interpretation Code 0.0 - 0.7 10^3/mcL Workflow SS Eosinophils/100 WBC (Bld) 3.8 % Invalid Interpretation Code 0.0 - 6.0 % Workflow SS Erythrocyte distribution width (RBC) [Ratio] 14.4 % Invalid Interpretation Code 11.5 - 15.5 % Workflow SS GFR/1.73 sq M.predicted among blacks MDRD (S/P/Bld) [Vol rate/Area] ml/min/1.73sqm Invalid Interpretation Code ADM SS Comment on above: Interpretive Data: GFR Population mean for , Non- Americans Ages 20-29 = 116 mL/min/1.73 sq.m. Ages 30-39 = 107 mL/min/1.73 sq.m. Ages 40-49 = 99 mL/min/1.73 sq.m. Ages 50-59 = 93 mL/min/1.73 sq.m. Ages 60-69 = 85 mL/min/1.73 sq.m. Ages 70+ = 75 mL/min/1.73 sq.m. Chronic Kidney Disease: Less than 60 mL/min/1.73 square meters End Stage Renal Disease: Less than 15 mL/min/1.73 square meters GFR/1.73 sq M.predicted among non-blacks MDRD (S/P/Bld) [Vol rate/Area] ml/min/1.73sqm Invalid Interpretation Code AH ADM SS Comment on above: Interpretive Data: GFR Population mean for , Non- Americans Ages 20-29 = 116 mL/min/1.73 sq.m. Ages 30-39 = 107 mL/min/1.73 sq.m. Ages 40-49 = 99 mL/min/1.73 sq.m. Ages 50-59 = 93 mL/min/1.73 sq.m. Ages 60-69 = 85 mL/min/1.73 sq.m. Ages 70+ = 75 mL/min/1.73 sq.m. Chronic Kidney Disease: Less than 60 mL/min/1.73 square meters End Stage Renal Disease: Less than 15 mL/min/1.73 square meters Globulin 2.8 G/dL Invalid Interpretation Code 1.5 - 3.8 G/dL AH ADM SS Glucose [Mass/Vol] 98 mg/dL Invalid Interpretation Code 82 - 115 mg/dL ADM SS Hematocrit (Bld) [Volume fraction] 33.7 % Invalid Interpretation Code 34.0 - 46.0 % AH Workflow SS Hemoglobin (Bld) [Mass/Vol] 11.8 G/dL Invalid Interpretation Code 12.0 - 16.0 G/dL AH Workflow SS Lymphocytes (Bld) [#/Vol] 1.2 103/mcL Invalid Interpretation Code 0.9 - 4.3 10^3/mcL Workflow SS Lymphocytes/100 WBC (Bld) 19.9 % Invalid Interpretation Code 20.0 - 40.0 % AH Workflow SS Magnesium [Mass/Vol] 1.7 mg/dL Invalid Interpretation Code 1.6 - 2.4 mg/dL ADM SS MCH (RBC) [Entitic mass] 30.9 pg Invalid Interpretation Code 27.0 - 33.0 pg AH Workflow SS MCHC 35.0 G/dL Invalid Interpretation Code 32.0 - 36.0 G/dL AH Workflow SS MCV (RBC) [Entitic vol] 88.4 fL Invalid Interpretation Code 80.0 - 99.0 fL Workflow SS Monocytes (Bld) [#/Vol] 0.5 103/mcL Invalid Interpretation Code 0.1 - 1.4 10^3/mcL Workflow SS Monocytes/100 WBC (Bld) 7.9 % Invalid Interpretation Code 2.0 - 13.0 % AH Workflow SS Neutrophils (Bld) [#/Vol] 4.1 103/mcL Invalid Interpretation Code 2.3 - 8.1 10^3/mcL AH Workflow SS Neutrophils/100 WBC (Bld) 67.8 % Invalid Interpretation Code 50.0 - 75.0 % Workflow SS Platelet mean volume (Bld) [Entitic vol] 8.1 fL Invalid Interpretation Code 6.6 - 10.5 fL AH Workflow SS Platelets (Bld) [#/Vol] 168 103/mcL Invalid Interpretation Code 150 - 450 10^3/mcL AH Workflow SS Protein [Mass/Vol] 5.6 G/dL Invalid Interpretation Code 5.7 - 8.2 G/dL AH ADM SS Comment on above: Interpretive Data: * *Note - New Reference Range in effect 20 RBC (Bld) [#/Vol] 3.82 106/mcL Invalid Interpretation Code 4.10 - 5.30 10^6/mcL AH Workflow SS Sodium [Moles/Vol] 142 mmol/L Invalid Interpretation Code 136 - 145 mEq/L AH ADM SS Urea nitrogen [Mass/Vol] 19.0 mg/dL Invalid Interpretation Code 8.0 - 22.0 mg/dL AH ADM SS Urea nitrogen/Creatinine [Mass ratio] 25.3 ratio Invalid Interpretation Code 10.0 - 22.0 ratio AH ADM SS WBC (Bld) [#/Vol] 6.1 103/mcL Invalid Interpretation Code 4.5 - 10.8 10^3/mcL AH Workflow SS Laboratory - Chemistry and C hemistry - challengeOrdered By: SYSTEM SYSTEM on 05-04-2023 Potassium [Moles/Vol] 4.1 mmol/L Invalid Interpretation Code 3.5 - 5.0 mEq/L AH ADM SS LABORATORYOrdered By: SYSTEM SYSTEM on 05-03-2023 Basophils (Bld) [#/Vol] 0.0 103/mcL Invalid Interpretation Code 0.0 - 0.3 10^3/mcL AH Workflow SS Basophils/100 WBC (Bld) 0.4 % Invalid Interpretation Code 0.0 - 2.5 % AH Workflow SS Calcium [Mass/Vol] 8.7 mg/dL Invalid Interpretation Code 8.7 - 10.4 mg/dL AH ADM SS Chloride [Moles/Vol] 107 mmol/L Invalid Interpretation Code 98 - 110 mEq/L AH ADM SS CO2 [Moles/Vol] 28 mmol/L Invalid Interpretation Code 22 - 32 mEq/L AH ADM SS Creatinine [Mass/Vol] 0.72 mg/dL Invalid Interpretation Code 0.50 - 1.20 mg/dL AH ADM SS Electrolyte Balance 6.0 mEq/L Invalid Interpretation Code 4.0 - 15.0 mEq/L AH ADM SS Eosinophils (Bld) [#/Vol] 0.2 103/mcL Invalid Interpretation Code 0.0 - 0.7 10^3/mcL Workflow SS Eosinophils/100 WBC (Bld) 2.5 % Invalid Interpretation Code 0.0 - 6.0 % Workflow SS Erythrocyte distribution width (RBC) [Ratio] 14.2 % Invalid Interpretation Code 11.5 - 15.5 % Workflow SS GFR/1.73 sq M.predicted among blacks MDRD (S/P/Bld) [Vol rate/Area] ml/min/1.73sqm Invalid Interpretation Code [facility] Comment on above: Interpretive Data: GFR Population mean for , Non- Americans Ages 20-29 = 116 mL/min/1.73 sq.m. Ages 30-39 = 107 mL/min/1.73 sq.m. Ages 40-49 = 99 mL/min/1.73 sq.m. Ages 50-59 = 93 mL/min/1.73 sq.m. Ages 60-69 = 85 mL/min/1.73 sq.m. Ages 70+ = 75 mL/min/1.73 sq.m. Chronic Kidney Disease: Less than 60 mL/min/1.73 square meters End Stage Renal Disease: Less than 15 mL/min/1.73 square meters GFR/1.73 sq M.predicted among non-blacks MDRD (S/P/Bld) [Vol rate/Area] ml/min/1.73sqm Invalid Interpretation Code [facility] Comment on above: Interpretive Data: GFR Population mean for , Non- Americans Ages 20-29 = 116 mL/min/1.73 sq.m. Ages 30-39 = 107 mL/min/1.73 sq.m. Ages 40-49 = 99 mL/min/1.73 sq.m. Ages 50-59 = 93 mL/min/1.73 sq.m. Ages 60-69 = 85 mL/min/1.73 sq.m. Ages 70+ = 75 mL/min/1.73 sq.m. Chronic Kidney Disease: Less than 60 mL/min/1.73 square meters End Stage Renal Disease: Less than 15 mL/min/1.73 square meters Glucose [Mass/Vol] 96 mg/dL Invalid Interpretation Code 82 - 115 mg/dL [facility] Hematocrit (Bld) [Volume fraction] 38.4 % Invalid Interpretation Code 34.0 - 46.0 % AH Workflow SS Hemoglobin (Bld) [Mass/Vol] 13.4 G/dL Invalid Interpretation Code 12.0 - 16.0 G/dL AH Workflow SS Lymphocytes (Bld) [#/Vol] 1.1 103/mcL Invalid Interpretation Code 0.9 - 4.3 10^3/mcL AH Workflow SS Lymphocytes/100 WBC (Bld) 15.5 % Invalid Interpretation Code 20.0 - 40.0 % AH Workflow SS Magnesium [Mass/Vol] 1.8 mg/dL Invalid Interpretation Code 1.6 - 2.4 mg/dL ADM SS MCH (RBC) [Entitic mass] 31.0 pg Invalid Interpretation Code 27.0 - 33.0 pg AH Workflow SS MCHC 35.0 G/dL Invalid Interpretation Code 32.0 - 36.0 G/dL AH Workflow SS MCV (RBC) [Entitic vol] 88.6 fL Invalid Interpretation Code 80.0 - 99.0 fL AH Workflow SS Monocytes (Bld) [#/Vol] 0.6 103/mcL Invalid Interpretation Code 0.1 - 1.4 10^3/mcL AH Workflow SS Monocytes/100 WBC (Bld) 7.9 % Invalid Interpretation Code 2.0 - 13.0 % AH Workflow SS Neutrophils (Bld) [#/Vol] 5.3 103/mcL Invalid Interpretation Code 2.3 - 8.1 10^3/mcL AH Workflow SS Neutrophils/100 WBC (Bld) 73.7 % Invalid Interpretation Code 50.0 - 75.0 % AH Workflow SS Platelet mean volume (Bld) [Entitic vol] 8.5 fL Invalid Interpretation Code 6.6 - 10.5 fL AH Workflow SS Platelets (Bld) [#/Vol] 158 103/mcL Invalid Interpretation Code 150 - 450 10^3/mcL AH Workflow SS RBC (Bld) [#/Vol] 4.33 106/mcL Invalid Interpretation Code 4.10 - 5.30 10^6/mcL AH Workflow SS Sodium [Moles/Vol] 141 mmol/L Invalid Interpretation Code 136 - 145 mEq/L ADM SS Urea nitrogen [Mass/Vol] 14.0 mg/dL Invalid Interpretation Code 8.0 - 22.0 mg/dL ADM SS Urea nitrogen/Creatinine [Mass ratio] 19.4 ratio Invalid Interpretation Code 10.0 - 22.0 ratio ADM SS WBC (Bld) [#/Vol] 7.3 103/mcL Invalid Interpretation Code 4.5 - 10.8 10^3/mcL Workflow SS LABORATORYOrdered By: SYSTEM SYSTEM on 05-02-2023 Albumin BCP dye [Mass/Vol] 2.9 G/dL Invalid Interpretation Code 3.2 - 4.8 G/dL ADM SS Albumin/Globulin [Mass ratio] 1.1 {ratio} Invalid Interpretation Code 0.9 - 1.6 ratio ADM SS ALP [Catalytic activity/Vol] 90 U/L Invalid Interpretation Code 38 - 126 U/L ADM SS ALT No additional P-5'-P [Catalytic activity/Vol] 34 U/L Invalid Interpretation Code 10 - 49 U/L ADM SS AST [Catalytic activity/Vol] 43 U/L Invalid Interpretation Code 8 - 34 U/L ADM SS Basophils (Bld) [#/Vol] 0.0 103/mcL Invalid Interpretation Code 0.0 - 0.3 10^3/mcL Workflow SS Basophils/100 WBC (Bld) 0.4 % Invalid Interpretation Code 0.0 - 2.5 % Workflow SS Bilirubin [Mass/Vol] 1.70 mg/dL Invalid Interpretation Code 0.20 - 1.20 mg/dL ADM SS Comment on above: Interpretive Data: U se of this assay is not recommended for patients undergoing treatment with eltrombopag due to the potential for falsely elevated results. Eosinophils (Bld) [#/Vol] 0.1 103/mcL Invalid Interpretation Code 0.0 - 0.7 10^3/mcL Workflow SS Eosinophils/100 WBC (Bld) 0.6 % Invalid Interpretation Code 0.0 - 6.0 % Workflow SS Erythrocyte distribution width (RBC) [Ratio] 14.5 % Invalid Interpretation Code 11.5 - 15.5 % Workflow SS Globulin 2.6 G/dL Invalid Interpretation Code 1.5 - 3.8 G/dL ADM SS Hematocrit (Bld) [Volume fraction] 36.8 % Invalid Interpretation Code 34.0 - 46.0 % Workflow SS Hemoglobin (Bld) [Mass/Vol] 12.7 G/dL Invalid Interpretation Code 12.0 - 16.0 G/dL Workflow SS Lymphocytes (Bld) [#/Vol] 1.7 103/mcL Invalid Interpretation Code 0.9 - 4.3 10^3/mcL AH Workflow SS Lymphocytes/100 WBC (Bld) 16.3 % Invalid Interpretation Code 20.0 - 40.0 % AH Workflow SS MCH (RBC) [Entitic mass] 31.6 pg Invalid Interpretation Code 27.0 - 33.0 pg AH Workflow SS MCHC 34.5 G/dL Invalid Interpretation Code 32.0 - 36.0 G/dL AH Workflow SS MCV (RBC) [Entitic vol] 91.7 fL Invalid Interpretation Code 80.0 - 99.0 fL AH Workflow SS Monocytes (Bld) [#/Vol] 1.1 103/mcL Invalid Interpretation Code 0.1 - 1.4 10^3/mcL AH Workflow SS Monocytes/100 WBC (Bld) 10.4 % Invalid Interpretation Code 2.0 - 13.0 % AH Workflow SS Neutrophils (Bld) [#/Vol] 7.4 103/mcL Invalid Interpretation Code 2.3 - 8.1 10^3/mcL AH Workflow SS Neutrophils/100 WBC (Bld) 72.3 % Invalid Interpretation Code 50.0 - 75.0 % AH Workflow SS Platelet mean volume (Bld) [Entitic vol] 8.6 fL Invalid Interpretation Code 6.6 - 10.5 fL AH Workflow SS Platelets (Bld) [#/Vol] 147 103/mcL Invalid Interpretation Code 150 - 450 10^3/mcL Workflow SS Protein [Mass/Vol] 5.5 G/dL Invalid Interpretation Code 5.7 - 8.2 G/dL AH ADM SS Comment on above: Interpretive Data: * *Note - New Reference Range in effect 20 RBC (Bld) [#/Vol] 4.01 106/mcL Invalid Interpretation Code 4.10 - 5.30 10^6/mcL AH Workflow SS WBC (Bld) [#/Vol] 10.2 103/mcL Invalid Interpretation Code 4.5 - 10.8 10^3/mcL AH Workflow SS LABORATORYOrdered By: Terra Ken on 05-01-2023 Lactate [Moles/Vol] 1.0 mmol/L Invalid Interpretation Code 0.2 - 2.0 mmol/L Auto Chem SS LABORATORYOrdered By: SYSTEM SYSTEM on 05-01-2023 Troponin I.cardiac DL <= 0.01 ng/mL [Mass/Vol] 2058.98 ng/L Invalid Interpretation Code 0.00 - 34.00 ng/L ADM SS Comment on above: Interpretive Data: I f the High Sensitive Troponin result is below the 99th percentile value (<45 ng/L) at the first blood draw, at least two additional blood samples should be drawn before results are interpreted as negative for AMI. CRP High sensitivity method [Mass/Vol] 34.41 mg/L Invalid Interpretation Code 0.20 - 3.00 mg/L ADM SS Comment on above: Interpretive Data: R elative Risk Category and Average hs-CRP Level: Higher Risk: > 5.0 mg/L Guidelines support that hs-CRP can be used as an independent predictor of increased coronary risk; however, hs-CRP results should only be interpreted in conjunction with other cardiac risk factors in establishing overall cardiac risk for a given patient. Troponin I.cardiac DL <= 0.01 ng/mL [Mass/Vol] 1956.47 ng/L Invalid Interpretation Code 0.00 - 34.00 ng/L ADM SS Comment on above: Interpretive Data: I f the High Sensitive Troponin result is below the 99th percentile value (<45 ng/L) at the first blood draw, at least two additional blood samples should be drawn before results are interpreted as negative for AMI. LABORATORYOrdered By: Cassandra Urbina on 05-01-2023 ESR 15 minute reading (Bld) [Velocity] 11 mm/hr Invalid Interpretation Code 0 - 30 mm/hr AH Manual Heme SS LABORATORYOrdered By: Mariela Pimentel on 04-30-2023 ABO and Rh group Nom (Bld) Blood group AB Rh(D) positive Invalid Interpretation Code BB Manual SS Blood group antibody screen Ql Negative ABSC (04/30/23 6:13 AM) Invalid Interpretation Code BB Manual SS LABORATORYOrdered By: Carmelina Monte on 04-30-2023 aPTT Coag (PPP) [Time] 37.3 s Invalid Interpretation Code 25.0 - 35.0 seconds Auto Coag SS Comment on above: Interpretive Data: F or Heparin anticoagulation therapy, the recommended therapeutic range is: 54-77 seconds (APTT Correlation with Anti-Xa therapeutic range of 0.3-0.7 units/ml). PLEASE REFERENCE THE PHARMACY PROTOCOL FOR DOSING. Fibrinogen Coag (PPP) [Mass/Vol] 413 mg/dL Invalid Interpretation Code 250 - 560 mg/dL AH Auto Coag SS Heparin dose (APTT) Unknown (04/30/23 6:13 AM) Invalid Interpretation Code AH Auto Coag SS INR Coag (PPP) [Relative time] 1.0 {INR} Invalid Interpretation Code AH Auto Coag SS Comment on above: Interpretive Data: Nitish anderson [employer] (CHEST, 1992, [id number]) recommended therapeutic range for oral anticoagulant therapy is: LOW RISK: Prophylaxis of venous thrombosis INR: 2.0-3.0 Treatment of pulmonary embolism 2.0-3.0 Prevention of systemic embolism 2.0-3.0 HIGH RISK: Mechanical prosthetic valves 2.5-3.5 PT Coag (PPP) [Time] 11.8 s Invalid Interpretation Code 9.0 - 14.8 seconds Auto Coag SS Comment on above: Interpretive Data: E ffective 04/06/08, Protime results may be affected by some antibiotics (i.e. Ciprofloxacin, Azithromycin, Bactrim) which may potentiate the action of oral anticoagulants, with further increases in Protime/INR. LABORATORYOrdered By: Roderick Brewer on 04-30-2023 Calcium.ionized (Bld) [Mass/Vol] 1.16 mmol/L Invalid Interpretation Code 1.12 - 1.32 mmol/L Auto Chem SS CNPModesta 02-22-2023 CNPN Telephone (UCWSTR) KEV,MARY ([id number]) 1960 F Date Time Provider Department 02/22/23 ERIKA ELIZALDE [facility] During your visit today, we recorded the following information about you: Marychuy Kalli [place] 02/22/2023 1:20 PM Signed Patient calling was seen in [facility] care 02/19 and asking for copy of xray report to [facility] Stone Pact Team 3 fax number [phone]. Printed report and faxed as requested. Allergies As of Date: 02/22/2023 Noted Allergy Reaction BACTRIM (SULFAMETHOXAZOLE-TRIM ETH*02/10/2016 4 - Hives CODEINE 02/10/2016 14 - Other: See Comments Comments: Hallucinations DILAUDID (HYDROMORPHONE (BULK)) 02/10/2016 14 - Other: See Comments Comments: Dizziness and severe nausea IODINE 02/21/2016 7 - Swelling Comments: tightness of neck and chest upon iv dye administration. kmr MORPHINE 02/10/2016 4 - Hives MOTRIN (IBUPROFEN) 02/10/2016 4 - Hives Date Reviewed: 02/19/2023 Reviewed by: Livier Melvin - Fully Assessed Reason for Visit: copy of xray report fax to [facility] [Other] Prescriptions as of 02/22/2023 - Tadalafil (CIALIS) 20 mg tab(s) Take 20 mg by mouth once daily. - dofetilide (TIKOSYN) 250 mcg capsule Dose : 500 mcg = 2 cap(s), Oral, BID - rivaroxaban (XARELTO) 20 mg tablet 20 mg. - bumetanide (BUMEX) 1 mg tablet TAKE 1 TABLET BY MOUTH EVERY DAY NEEDED FOR SWELLINGWEIGHT GAIN - cholecalciferol (VITAMIN D3) 5,000 unit tab q 24 HR. - aspirin, enteric coated (ASPIRIN, ENTERIC COATED) 81 mg EC tablet 81 mg. - busPIRone (BUSPAR) 5 mg tablet - Magnesium Oxide 250 mg magnesium tab 500 mg. - nitroglycerin sublingual (NITROQUICK) 0.3 mg SL tablet Dissolve 1 tablet under the tongue one time only for 1 dose. To be administered in Radiology for CTA exam - metoprolol (LOPRESSOR) 5 mg/5 mL injection 5 mg Metoprolol IV dose increments over 3-5 minutes. May give additional 5mg Metoprolol every 5 minutes until target heart rate achieved, or maximum dosage of 30 mg of Metoprolol. - carvedilol (COREG) 12.5 mg tablet Take 0.5 tablets by mouth twice daily. - NETTLE LEAF ORAL Take by mouth. - MILK THISTLE ORAL Take by mouth. - DANDELION ORAL Take by mouth. - RED CLOVER ORAL Take by mouth. - BURDOCK ROOT ORAL Take by mouth. - diphenhydrAMINE (BENADRYL) 50 mg capsule Take 1 capsule by mouth as directed for 1 dose. one (1) hour prior to exam. Problem List As Of Date 02/22/2023 Noted Resolved Allergy [T78.40XA] 02/27/2016 Encounter Status:Closed by MARYCHUY MAHAN LPN on 02/22/23 [facility] CNOVon 02-19-2023 CNOV Office Visit (UCWSTR ) DORCAS ANGULO ([id number]) 1960 F Date Time Provider Department 02/19/23 4:30 PM ERIKA ELIZALDE WS During your visit today, we recorded the following information about you: Temperature Pulse Respiration Blood pressure 98.7 degrees 88/minute 16/minute 112/78 Weight 80.3 kg Erikamichell Elizalde REGULATOR INSPECTOR.RUBBER STAMP ASSEMBLER 02/19/2023 5:23 PM Signed CC: Patient presents with: Toe Injury: left 2nd toe bruising and painful, bilateral knees after fall x this am HPI Dorcas Angulo is a 62 year old female who presents today for above. Patient fell in her driveway this morning. Left 2nd toe is bruised and painful. Abrasion to both knees. No other injuries. Did not hit her head. REVIEW OF SYSTEMS See HPI PAST MEDICAL HISTORY Diagnosis Date Atrial fibrillation (HCC) Cirrhosis (HCC) Essential hypertension Essential tremor Sleep apnea PAST SURGICAL HISTORY Procedure Laterality Date BLADDER SURGERY HX 1992 Bladder suspension FOOT SURGERY HX Left 2009 Bunion removed TONSILLECTOMY HX age 4 TUBAL LIGATION HX 1992 ALLERGIES Bactrim [Sulfamethoxazole-Trim ethoprim], Codeine, Dilaudid [Hydromorphone (Bulk)], Iodine, Morphine, and Motrin [Ibuprofen] MEDICATIONS Tadalafil (CIALIS) 20 mg tab(s) Take 20 mg by mouth once daily. dofetilide (TIKOSYN) 250 mcg capsule Dose : 500 mcg = 2 cap(s), Oral, BID rivaroxaban (XARELTO) 20 mg tablet 20 mg. aspirin, enteric coated (ASPIRIN, ENTERIC COATED) 81 mg EC tablet 81 mg. Magnesium Oxide 250 mg magnesium tab 500 mg. carvedilol (COREG) 12.5 mg tablet Take 0.5 tablets by mouth twice daily. bumetanide (BUMEX) 1 mg tablet TAKE 1 TABLET BY MOUTH EVERY DAY NEEDED FOR SWELLINGWEIGHT GAIN cholecalciferol (VITAMIN D3) 5,000 unit tab q 24 HR. busPIRone (BUSPAR) 5 mg tablet nitroglycerin sublingual (NITROQUICK) 0.3 mg SL tablet Dissolve 1 tablet under the tongue one time only for 1 dose. To be administered in Radiology for CTA exam (Patient not taking: Reported on 02/19/2023) metoprolol (LOPRESSOR) 5 mg/5 mL injection 5 mg Metoprolol IV dose increments over 3-5 minutes. May give additional 5mg Metoprolol every 5 minutes until target heart rate achieved, or maximum dosage of 30 mg of Metoprolol. (Patient not taking: Reported on 02/19/2023) NETTLE LEAF ORAL Take by mouth. (Patient not taking: Reported on 04/12/2021 ) MILK THISTLE ORAL Take by mouth. (Patient not taking: Reported on 04/12/2021 ) DANDELION ORAL Take by mouth. (Patient not taking: Reported on 04/12/2021 ) RED CLOVER ORAL Take by mouth. (Patient not taking: Reported on 04/12/2021 ) BURDOCK ROOT ORAL Take by mouth. (Patient not taking: Reported on 04/12/2021 ) diphenhydrAMINE (BENADRYL) 50 mg capsule Take 1 capsule by mouth as directed for 1 dose. one (1) hour prior to exam. (Patient not taking: Reported on 09/13/2016) FAMILY HISTORY Problem Relation Age of Onset Cancer Father Lung-smoker Obesity Father Diabetes Paternal Aunt Thyroid Mother Heart Mother Congenital hole in heart Heart Father Pacemaker other (Leukemia [Other]) Brother Breast Cancer Paternal Grandmother Social History Tobacco Use Smoking status: Never Smokeless tobacco: Never Substance Use Topics Alcohol use: No Drug use: No PHYSICAL EXAM BP 112/78 Pulse 88 Temp 37.1 ?C (98.7 ?F) Resp 16 Wt 80.3 kg (177 lb) SpO2 97% BMI 28.57 kg/m? General Appearance: well appearing, in no acute distress, alert Ext: good distal pulses, capillary refill < 2 seconds. Left 2nd toe- no obvious deformities. distal toe ecchymotic. Very tender with palpation. ASSESSMENT/PLAN: 1. Displaced fracture of distal phalanx of left lesser toe(s), initial encounter for closed fracture - ICD9: 826.0, ICD10: S92.532A (primary diagnosis) Reviewed x-ray results with patient. 2nd toe rena taped, placed in post op shoe. Symptom management discussed. - CONSULT TO PODIATRY, will schedule with Dr. Johnson 2. Pain of toe of left foot - ICD9: 729.5, ICD10: M79.675 As above - XR TOE AP/LAT/OBL LEFT 3. Toe injury, left, initial encounter - ICD9: 959.7, ICD10: S99.922A As above - XR TOE AP/LAT/OBL LEFT Prescription instructions reviewed with patient as applicable. Potential red flag symptoms discussed with the patient. Reviewed appropriate action plan to take if red flag symptoms occur. Patient agreeable to treatment plan. Erika Elizalde, YENIFER.RUBBER STAMP ASSEMBLER Referring Provider: SELF [[id number]] Allergies As of Date: 02/19/2023 Noted Allergy Reaction BACTRIM (SULFAMETHOXAZOLE-TRIM ETH*02/10/2016 4 - Hives CODEINE 02/10/2016 14 - Other: See Comments Comments: Hallucinations DILAUDID (HYDROMORPHONE (BULK)) 02/10/2016 14 - Other: See Comments Comments: Dizziness and severe nausea IODINE 02/21/2016 7 - Swelling Comments: tightness of neck and chest upon iv dye administration. kmr MORPHINE 02/10/2016 4 - Hives MOTRIN (IBUPR (more content not included)... Normal [facility] XR TOE 3V AP/LAT/OBL LTon XR TOE 3V AP/LAT/OBL LT * * *Final Report* * * DATE OF EXAM: Feb 19 2023 4:53PM WOX [id number] - XR TOE 3V AP/LAT/OBL LT / PROCEDURE REASON: multiple diagnoses * * * * Physician Interpretation * * * * EXAMINATION: XR TOE 3V AP/LAT/OBL LT HISTORY: Left 2nd toe pain following a fall today Pain of toe of left foot Toe injury, left, initial encounter . TECHNIQUE: XR TOE 3V AP/LAT/OBL LT Laterality: LEFT Number of different views (projections): 3 M: XB_1 COMPARISON: None RESULT: 4 images of the second toe and adjacent foot. There is a distracted comminuted dorsal corner articular fracture base of the second distal phalanx evident on lateral images. Unremarkable postoperative first metatarsal. IMPRESSION: Second toe distal phalangeal displaced dorsal articular fracture [employer] Director: PSCB Transcribe Date/Time: Feb 19 2023 4:54P Dictated by : THAO BOWIE MD This examination was interpreted and the report reviewed and electronically signed by: THAO BOWIE MD on Feb 19 2023 4:58PM EST [id number] Normal [facility] XR Toes - left 3 Viewson IMPRESSION: Second toe distal phalangeal displaced dorsal articular fracture [employer] Director: ADAM Transcribe Date/Time: Feb 19 2023 4:54P Dictated by : THAO BOWIE MD This examination was interpreted and the report reviewed and electronically signed by: THAO BOWIE MD on Feb 19 2023 4:58PM EST DIVISION OF RADIOLOGY * * *Final Report* * * DATE OF EXAM: Feb 19 2023 4:53PM WOX 5268 - XR TOE 3V AP/LAT/OBL LT / PROCEDURE REASON: multiple diagnoses * * * * Physician Interpretation * * * * EXAMINATION: XR TOE 3V AP/LAT/OBL LT HISTORY: Left 2nd toe pain following a fall today Pain of toe of left foot Toe injury, left, initial encounter . TECHNIQUE: XR TOE 3V AP/LAT/OBL LT Laterality: LEFT Number of different views (projections): 3 M: XB_1 COMPARISON: None RESULT: 4 images of the second toe and adjacent foot. There is a distracted comminuted dorsal corner articular fracture base of the second distal phalanx evident on lateral images. Unremarkable postoperative first metatarsal. DIVISION OF RADIOLOGY Provider, [facility] - 02/19/2023 * * *Final Report* * * DATE OF EXAM: Feb 19 2023 4:53PM WOX 5268 - XR TOE 3V AP/LAT/OBL LT / PROCEDURE REASON: multiple diagnoses * * * * Physician Interpretation * * * * EXAMINATION: XR TOE 3V AP/LAT/OBL LT HISTORY: Left 2nd toe pain following a fall today Pain of toe of left foot Toe injury, left, initial encounter . TECHNIQUE: XR TOE 3V AP/LAT/OBL LT Laterality: LEFT Number of different views (projections): 3 M: XB_1 COMPARISON: None RESULT: 4 images of the second toe and adjacent foot. There is a distracted comminuted dorsal corner articular fracture base of the second distal phalanx evident on lateral images. Unremarkable postoperative first metatarsal. IMPRESSION IMPRESSION: Second toe distal phalangeal displaced dorsal articular fracture [employer] Director: PSCB Transcribe Date/Time: Feb 19 2023 4:54P Dictated by : THAO BOWIE MD This examination was interpreted and the report reviewed and electronically signed by: THAO BOWIE MD on Feb 19 2023 4:58PM EST Radiology Study observation (narrative) XR Toes - left 3 ViewsOrdere d By: Ccf Provider on 02-19-2023 No Panel Informationon 02-07 NEGATED: Highlighted row [employer] LABORATORYOrdered By: Shira Garzon on 01-31-2023 Basophil, Absolute 0.1 103/mcL Invalid Interpretation Code 0.0 - 0.2 10^3/mcL AO Workflow SS Basophils/100 WBC (Bld) 0.9 % Invalid Interpretation Code 0.0 - 2.5 % AO Workflow SS Eosinophil, Absolute 0.2 103/mcL Invalid Interpretation Code 0.0 - 0.4 10^3/mcL AO Workflow SS Eosinophils/100 WBC (Bld) 2.4 % Invalid Interpretation Code 0.0 - 7.0 % AO Workflow SS Erythrocyte distribution width (RBC) [Ratio] 14.9 % Invalid Interpretation Code 11.5 - 14.5 % AO Workflow SS Hematocrit (Bld) [Volume fraction] 41.4 % Invalid Interpretation Code 37.0 - 47.0 % AO Workflow SS Hemoglobin (Bld) [Mass/Vol] 14.3 G/dL Invalid Interpretation Code 12.0 - 16.0 G/dL AO Workflow SS Lymphocyte, Absolute 1.3 103/mcL Invalid Interpretation Code 0.8 - 3.9 10^3/mcL AO Workflow SS Lymphocytes/100 WBC (Bld) 19.5 % Invalid Interpretation Code 10.0 - 50.0 % AO Workflow SS MCH (RBC) [Entitic mass] 30.3 pg Invalid Interpretation Code 27.0 - 31.2 pg AO Workflow SS MCHC 34.6 G/dL Invalid Interpretation Code 33.0 - 37.0 G/dL AO Workflow SS MCV (RBC) [Entitic vol] 87.5 fL Invalid Interpretation Code 80.0 - 94.0 fL AO Workflow SS Monocyte distribution width Auto (Bld) [Entitic vol] 17.44 Invalid Interpretation Code 0.00 - 20.00 AO Workflow SS Comment on above: Result Comment: For ED adult patients suspected of sepsis, MDW<=20.0 does not rule out sepsis or risk of sepsis Monocyte, Absolute 0.5 103/mcL Invalid Interpretation Code 0.2 - 1.0 10^3/mcL AO Workflow SS Monocytes/100 WBC (Bld) 7.0 % Invalid Interpretation Code 1.7 - 13.0 % AO Workflow SS Neutrophil, Absolute 4.6 103/mcL Invalid Interpretation Code 2.9 - 6.2 10^3/mcL AO Workflow SS Neutrophils/100 WBC (Bld) 70.2 % Invalid Interpretation Code 37.0 - 80.0 % AO Workflow SS Platelet mean volume (Bld) [Entitic vol] 8.1 fL Invalid Interpretation Code 7.4 - 10.4 fL AO Workflow SS Platelets (Bld) [#/Vol] 183 103/mcL Invalid Interpretation Code 130 - 400 10^3/mcL AO Workflow SS RBC (Bld) [#/Vol] 4.72 106/mcL Invalid Interpretation Code 4.20 - 5.40 10^6/mcL AO Workflow SS WBC (Bld) [#/Vol] 6.6 103/mcL Invalid Interpretation Code 4.6 - 10.8 10^3/mcL AO Workflow SS LABORATORYOrdered By: SYSTEM SYSTEM on 01-31-2023 Calcium [Mass/Vol] 9.0 mg/dL Invalid Interpretation Code 8.4 - 10.2 mg/dL AO ADM SS Chloride [Moles/Vol] 105 mmol/L Invalid Interpretation Code 98 - 107 mmol/L AO ADM SS CO2 [Moles/Vol] 31 mmol/L Invalid Interpretation Code 23 - 31 mmol/L AO ADM SS Creatinine [Mass/Vol] 0.81 mg/dL Invalid Interpretation Code 0.55 - 1.02 mg/dL AO ADM SS Electrolyte Balance 7.0 mEq/L Invalid Interpretation Code 4.0 - 15.0 mEq/L AO ADM SS GFR/1.73 sq M.predicted among blacks MDRD (S/P/Bld) [Vol rate/Area] 87 ml/min/1.73sqm Invalid Interpretation Code AO Chemistry S GFR/1.73 sq M.predicted among non-blacks MDRD (S/P/Bld) [Vol rate/Area] 72 ml/min/1.73sqm Invalid Interpretation Code AO Chemistry S Glucose [Mass/Vol] 117 mg/dL Invalid Interpretation Code 80 - 115 mg/dL AO ADM SS Potassium [Moles/Vol] 4.0 mmol/L Invalid Interpretation Code 3.5 - 5.1 mmol/L AO ADM SS Sodium [Moles/Vol] 143 mmol/L Invalid Interpretation Code 136 - 145 mmol/L AO ADM SS Troponin I.cardiac DL <= 0.01 ng/mL [Mass/Vol] 9.5 ng/L Invalid Interpretation Code 0.0 - 51.4 ng/L AO ADM SS TSH Qn 3.14 m[IU]/L Invalid Interpretation Code 0.36 - 3.74 mcIU/mL AO ADM SS Urea nitrogen [Mass/Vol] 17 mg/dL Invalid Interpretation Code 7 - 18 mg/dL AO ADM SS Urea nitrogen/Creatinine [Mass ratio] 21 ratio Invalid Interpretation Code 7 - 27 ratio AO ADM SS LABORATORYOrdered By: SYSTEM SYSTEM on 01-29-2023 Albumin BCP dye [Mass/Vol] 4.5 G/dL Invalid Interpretation Code 3.4 - 4.8 G/dL AO ADM SS Albumin/Globulin [Mass ratio] 1.2 {ratio} Invalid Interpretation Code 1.1 - 2.5 ratio AO ADM SS ALP [Catalytic activity/Vol] 169 U/L Invalid Interpretation Code 40 - 135 U/L AO ADM SS ALT With P-5'-P [Catalytic activity/Vol] 139 U/L Invalid Interpretation Code 14 - 59 U/L AO ADM SS AST With P-5'-P [Catalytic activity/Vol] 88 U/L Invalid Interpretation Code 10 - 40 U/L AO ADM SS Bilirubin [Mass/Vol] 1.3 mg/dL Invalid Interpretation Code 0.2 - 1.0 mg/dL AO ADM SS Calcium [Mass/Vol] 9.2 mg/dL Invalid Interpretation Code 8.4 - 10.2 mg/dL AO ADM SS Chloride [Moles/Vol] 103 mmol/L Invalid Interpretation Code 98 - 107 mmol/L AO ADM SS CO2 [Moles/Vol] 32 mmol/L Invalid Interpretation Code 23 - 31 mmol/L AO ADM SS Creatinine [Mass/Vol] 0.92 mg/dL Invalid Interpretation Code 0.55 - 1.02 mg/dL AO ADM SS Electrolyte Balance 8.0 mEq/L Invalid Interpretation Code 4.0 - 15.0 mEq/L AO ADM SS GFR/1.73 sq M.predicted among blacks MDRD (S/P/Bld) [Vol rate/Area] 75 ml/min/1.73sqm Invalid Interpretation Code AO Chemistry S GFR/1.73 sq M.predicted among non-blacks MDRD (S/P/Bld) [Vol rate/Area] 62 ml/min/1.73sqm Invalid Interpretation Code AO Chemistry S Globulin 3.7 G/dL Invalid Interpretation Code AO ADM SS Glucose [Mass/Vol] 99 mg/dL Invalid Interpretation Code 80 - 115 mg/dL AO ADM SS Magnesium [Mass/Vol] 1.8 mg/dL Invalid Interpretation Code 1.8 - 2.4 mg/dL AO ADM SS Potassium [Moles/Vol] 4.1 mmol/L Invalid Interpretation Code 3.5 - 5.1 mmol/L AO ADM SS Protein [Mass/Vol] 8.2 G/dL Invalid Interpretation Code 6.4 - 8.2 G/dL AO ADM SS Sodium [Moles/Vol] 143 mmol/L Invalid Interpretation Code 136 - 145 mmol/L AO ADM SS Troponin I.cardiac DL <= 0.01 ng/mL [Mass/Vol] 9.3 ng/L Invalid Interpretation Code 0.0 - 51.4 ng/L AO ADM SS TSH Qn 2.79 m[IU]/L Invalid Interpretation Code 0.36 - 3.74 mcIU/mL AO ADM SS Urea nitrogen [Mass/Vol] 16 mg/dL Invalid Interpretation Code 7 - 18 mg/dL AO ADM SS Urea nitrogen/Creatinine [Mass ratio] 17 ratio Invalid Interpretation Code 7 - 27 ratio AO ADM SS LABORATORYOrdered By: Deidre Lozano on 01-29-2023 Basophil, Absolute 0.0 103/mcL Invalid Interpretation Code 0.0 - 0.2 10^3/mcL AO Workflow SS Basophils/100 WBC (Bld) 0.6 % Invalid Interpretation Code 0.0 - 2.5 % AO Workflow SS Eosinophil, Absolute 0.2 103/mcL Invalid Interpretation Code 0.0 - 0.4 10^3/mcL AO Workflow SS Eosinophils/100 WBC (Bld) 2.8 % Invalid Interpretation Code 0.0 - 7.0 % AO Workflow SS Erythrocyte distribution width (RBC) [Ratio] 15.2 % Invalid Interpretation Code 11.5 - 14.5 % AO Workflow SS Hematocrit (Bld) [Volume fraction] 45.1 % Invalid Interpretation Code 37.0 - 47.0 % AO Workflow SS Hemoglobin (Bld) [Mass/Vol] 15.5 G/dL Invalid Interpretation Code 12.0 - 16.0 G/dL AO Workflow SS Lymphocyte, Absolute 1.4 103/mcL Invalid Interpretation Code 0.8 - 3.9 10^3/mcL AO Workflow SS Lymphocytes/100 WBC (Bld) 18.3 % Invalid Interpretation Code 10.0 - 50.0 % AO Workflow SS MCH (RBC) [Entitic mass] 29.8 pg Invalid Interpretation Code 27.0 - 31.2 pg AO Workflow SS MCHC 34.4 G/dL Invalid Interpretation Code 33.0 - 37.0 G/dL AO Workflow SS MCV (RBC) [Entitic vol] 86.7 fL Invalid Interpretation Code 80.0 - 94.0 fL AO Workflow SS Monocyte distribution width Auto (Bld) [Entitic vol] 16.76 Invalid Interpretation Code 0.00 - 20.00 AO Workflow SS Comment on above: Result Comment: For ED adult patients suspected of sepsis, MDW<=20.0 does not rule out sepsis or risk of sepsis Monocyte, Absolute 0.6 103/mcL Invalid Interpretation Code 0.2 - 1.0 10^3/mcL AO Workflow SS Monocytes/100 WBC (Bld) 7.8 % Invalid Interpretation Code 1.7 - 13.0 % AO Workflow SS Neutrophil, Absolute 5.5 103/mcL Invalid Interpretation Code 2.9 - 6.2 10^3/mcL AO Workflow SS Neutrophils/100 WBC (Bld) 70.5 % Invalid Interpretation Code 37.0 - 80.0 % AO Workflow SS Platelet mean volume (Bld) [Entitic vol] 7.9 fL Invalid Interpretation Code 7.4 - 10.4 fL AO Workflow SS Platelets (Bld) [#/Vol] 217 103/mcL Invalid Interpretation Code 130 - 400 10^3/mcL AO Workflow SS RBC (Bld) [#/Vol] 5.21 106/mcL Invalid Interpretation Code 4.20 - 5.40 10^6/mcL AO Workflow SS WBC (Bld) [#/Vol] 7.8 103/mcL Invalid Interpretation Code 4.6 - 10.8 10^3/mcL AO Workflow SS LABORATORYOrdered By: SYSTEM SYSTEM on 01-17-2023 Albumin BCP dye [Mass/Vol] 3.9 G/dL Invalid Interpretation Code 3.4 - 4.8 G/dL AO ADM SS Albumin/Globulin [Mass ratio] 1.3 {ratio} Invalid Interpretation Code 1.1 - 2.5 ratio AO ADM SS ALP [Catalytic activity/Vol] 135 U/L Invalid Interpretation Code 40 - 135 U/L AO ADM SS ALT With P-5'-P [Catalytic activity/Vol] 203 U/L Invalid Interpretation Code 14 - 59 U/L AO ADM SS AST With P-5'-P [Catalytic activity/Vol] 113 U/L Invalid Interpretation Code 10 - 40 U/L AO ADM SS Bilirubin [Mass/Vol] 1.1 mg/dL Invalid Interpretation Code 0.2 - 1.0 mg/dL AO ADM SS Bilirubin.direct [Mass/Vol] 0.3 mg/dL Invalid Interpretation Code 0.0 - 0.2 mg/dL AO ADM SS Bilirubin.direct [Mass/Vol] 0.8 mg/dL Invalid Interpretation Code AO Chemistry S Globulin 3.1 G/dL Invalid Interpretation Code AO ADM SS Protein [Mass/Vol] 7.0 G/dL Invalid Interpretation Code 6.4 - 8.2 G/dL AO ADM SS LABORATORYOrdered By: SYSTEM SYSTEM on 12-25-2022 Albumin BCP dye [Mass/Vol] 4.2 G/dL Invalid Interpretation Code 3.4 - 4.8 G/dL AO ADM SS Albumin/Globulin [Mass ratio] 1.2 {ratio} Invalid Interpretation Code 1.1 - 2.5 ratio AO ADM SS ALP [Catalytic activity/Vol] 148 U/L Invalid Interpretation Code 40 - 135 U/L AO ADM SS ALT With P-5'-P [Catalytic activity/Vol] 187 U/L Invalid Interpretation Code 14 - 59 U/L AO ADM SS AST With P-5'-P [Catalytic activity/Vol] 108 U/L Invalid Interpretation Code 10 - 40 U/L AO ADM SS Bili Indirect 0.7 mg/dL Invalid Interpretation Code AO Chemistry S Bilirubin [Mass/Vol] 0.9 mg/dL Invalid Interpretation Code 0.2 - 1.0 mg/dL AO ADM SS Bilirubin.direct [Mass/Vol] 0.2 mg/dL Invalid Interpretation Code 0.0 - 0.2 mg/dL AO ADM SS Calcium [Mass/Vol] 9.1 mg/dL Invalid Interpretation Code 8.4 - 10.2 mg/dL AO ADM SS Chloride [Moles/Vol] 102 mmol/L Invalid Interpretation Code 98 - 107 mmol/L AO ADM SS CO2 [Moles/Vol] 29 mmol/L Invalid Interpretation Code 23 - 31 mmol/L AO ADM SS Creatinine [Mass/Vol] 0.75 mg/dL Invalid Interpretation Code 0.55 - 1.02 mg/dL AO ADM SS Electrolyte Balance 10.0 mEq/L Invalid Interpretation Code 4.0 - 15.0 mEq/L AO ADM SS GFR 95 ml/min/1.73sqm Invalid Interpretation Code AO Chemistry S GFR Non- 79 ml/min/1.73sqm Invalid Interpretation Code AO Chemistry S Globulin 3.4 G/dL Invalid Interpretation Code AO ADM SS Glucose [Mass/Vol] 88 mg/dL Invalid Interpretation Code 80 - 115 mg/dL AO ADM SS Natriuretic peptide.B prohormone N-Terminal [Mass/Vol] 173 pg/mL Invalid Interpretation Code 0 - 125 pg/mL AO ADM SS Potassium [Moles/Vol] 4.1 mmol/L Invalid Interpretation Code 3.5 - 5.1 mmol/L AO ADM SS Protein [Mass/Vol] 7.6 G/dL Invalid Interpretation Code 6.4 - 8.2 G/dL AO ADM SS Sodium [Moles/Vol] 141 mmol/L Invalid Interpretation Code 136 - 145 mmol/L AO ADM SS Urea nitrogen [Mass/Vol] 15 mg/dL Invalid Interpretation Code 7 - 18 mg/dL AO ADM SS Urea nitrogen/Creatinine [Mass ratio] 20 ratio Invalid Interpretation Code 7 - 27 ratio AO ADM SS LABORATORYOrdered By: Jaswant Lucio on 10-13-2022 Natriuretic peptide.B prohormone N-Terminal [Mass/Vol] 1827 pg/mL Invalid Interpretation Code 0 - 900 pg/mL Auto Chem SS LABORATORYOrdered By: SYSTEM SYSTEM on 10-13-2022 Troponin I.cardiac DL <= 0.01 ng/mL [Mass/Vol] 6.06 ng/L Invalid Interpretation Code 0.00 - 34.00 ng/L ADM SS TSH Qn 2.966 mIU/mL Invalid Interpretation Code 0.550 - 4.780 mIU/mL ADM SS Albumin BCP dye [Mass/Vol] 4.2 G/dL Invalid Interpretation Code 3.2 - 4.8 G/dL ADM SS Albumin/Globulin [Mass ratio] 1.1 {ratio} Invalid Interpretation Code 0.9 - 1.6 ratio ADM SS ALP [Catalytic activity/Vol] 124 U/L Invalid Interpretation Code 38 - 126 U/L ADM SS ALT No additional P-5'-P [Catalytic activity/Vol] 99 U/L Invalid Interpretation Code 10 - 49 U/L ADM SS AST [Catalytic activity/Vol] 53 U/L Invalid Interpretation Code 8 - 34 U/L ADM SS Basophils (Bld) [#/Vol] 0.0 103/mcL Invalid Interpretation Code 0.0 - 0.3 10^3/mcL Workflow SS Basophils/100 WBC (Bld) 0.5 % Invalid Interpretation Code 0.0 - 2.5 % Workflow SS Bilirubin [Mass/Vol] 1.40 mg/dL Invalid Interpretation Code 0.20 - 1.20 mg/dL ADM SS Calcium [Mass/Vol] 9.5 mg/dL Invalid Interpretation Code 8.7 - 10.4 mg/dL ADM SS Chloride [Moles/Vol] 106 mmol/L Invalid Interpretation Code 98 - 110 mEq/L ADM SS CO2 [Moles/Vol] 29 mmol/L Invalid Interpretation Code 22 - 32 mEq/L ADM SS Creatinine [Mass/Vol] 0.75 mg/dL Invalid Interpretation Code 0.50 - 1.20 mg/dL ADM SS Electrolyte Balance 5.0 mEq/L Invalid Interpretation Code 4.0 - 15.0 mEq/L ADM SS Eosinophils (Bld) [#/Vol] 0.2 103/mcL Invalid Interpretation Code 0.0 - 0.7 10^3/mcL Workflow SS Eosinophils/100 WBC (Bld) 1.9 % Invalid Interpretation Code 0.0 - 6.0 % AH Workflow SS Erythrocyte distribution width (RBC) [Ratio] 15.6 % Invalid Interpretation Code 11.5 - 15.5 % AH Workflow SS GFR/1.73 sq M.predicted among blacks MDRD (S/P/Bld) [Vol rate/Area] ml/min/1.73sqm Invalid Interpretation Code AH ADM SS GFR/1.73 sq M.predicted among non-blacks MDRD (S/P/Bld) [Vol rate/Area] ml/min/1.73sqm Invalid Interpretation Code AH ADM SS Globulin 3.7 G/dL Invalid Interpretation Code 1.5 - 3.8 G/dL ADM SS Glucose [Mass/Vol] 108 mg/dL Invalid Interpretation Code 82 - 115 mg/dL ADM SS Hematocrit (Bld) [Volume fraction] 40.8 % Invalid Interpretation Code 34.0 - 46.0 % AH Workflow SS Hemoglobin (Bld) [Mass/Vol] 14.0 G/dL Invalid Interpretation Code 12.0 - 16.0 G/dL AH Workflow SS Lymphocytes (Bld) [#/Vol] 1.3 103/mcL Invalid Interpretation Code 0.9 - 4.3 10^3/mcL AH Workflow SS Lymphocytes/100 WBC (Bld) 12.6 % Invalid Interpretation Code 20.0 - 40.0 % AH Workflow SS MCH (RBC) [Entitic mass] 29.7 pg Invalid Interpretation Code 27.0 - 33.0 pg AH Workflow SS MCHC 34.2 G/dL Invalid Interpretation Code 32.0 - 36.0 G/dL AH Workflow SS MCV (RBC) [Entitic vol] 87.0 fL Invalid Interpretation Code 80.0 - 99.0 fL AH Workflow SS Monocyte distribution width Auto (Bld) [Entitic vol] 17.91 Invalid Interpretation Code 0.00 - 20.00 AH Workflow SS Comment on above: Result Comment: For ED adult patients suspected of sepsis, MDW<=20.0 does not rule out sepsis or risk of sepsis Monocytes (Bld) [#/Vol] 0.4 103/mcL Invalid Interpretation Code 0.1 - 1.4 10^3/mcL AH Workflow SS Monocytes/100 WBC (Bld) 4.0 % Invalid Interpretation Code 2.0 - 13.0 % AH Workflow SS Neutrophils (Bld) [#/Vol] 8.1 103/mcL Invalid Interpretation Code 2.3 - 8.1 10^3/mcL AH Workflow SS Neutrophils/100 WBC (Bld) 81.0 % Invalid Interpretation Code 50.0 - 75.0 % AH Workflow SS Platelet mean volume (Bld) [Entitic vol] 8.6 fL Invalid Interpretation Code 6.6 - 10.5 fL AH Workflow SS Platelets (Bld) [#/Vol] 191 103/mcL Invalid Interpretation Code 150 - 450 10^3/mcL AH Workflow SS Potassium [Moles/Vol] 3.6 mmol/L Invalid Interpretation Code 3.5 - 5.0 mEq/L AH ADM SS Protein [Mass/Vol] 7.9 G/dL Invalid Interpretation Code 5.7 - 8.2 G/dL AH ADM SS RBC (Bld) [#/Vol] 4.69 106/mcL Invalid Interpretation Code 4.10 - 5.30 10^6/mcL AH Workflow SS Sodium [Moles/Vol] 140 mmol/L Invalid Interpretation Code 136 - 145 mEq/L ADM SS Troponin I.cardiac DL <= 0.01 ng/mL [Mass/Vol] 7.90 ng/L Invalid Interpretation Code 0.00 - 34.00 ng/L ADM SS Urea nitrogen [Mass/Vol] 12.0 mg/dL Invalid Interpretation Code 8.0 - 22.0 mg/dL AH ADM SS Urea nitrogen/Creatinine [Mass ratio] 16.0 ratio Invalid Interpretation Code 10.0 - 22.0 ratio AH ADM SS WBC (Bld) [#/Vol] 10.0 103/mcL Invalid Interpretation Code 4.5 - 10.8 10^3/mcL Workflow SS LABORATORYOrdered By: SYSTEM SYSTEM on 10-11-2022 Calcium [Mass/Vol] 8.8 mg/dL Invalid Interpretation Code 8.7 - 10.4 mg/dL ADM SS Chloride [Moles/Vol] 104 mmol/L Invalid Interpretation Code 98 - 110 mEq/L ADM SS CO2 [Moles/Vol] 24 mmol/L Invalid Interpretation Code 22 - 32 mEq/L ADM SS Creatinine [Mass/Vol] 0.77 mg/dL Invalid Interpretation Code 0.50 - 1.20 mg/dL ADM SS Electrolyte Balance 9.0 mEq/L Invalid Interpretation Code 4.0 - 15.0 mEq/L ADM SS GFR/1.73 sq M.predicted among blacks MDRD (S/P/Bld) [Vol rate/Area] ml/min/1.73sqm Invalid Interpretation Code ADM SS GFR/1.73 sq M.predicted among non-blacks MDRD (S/P/Bld) [Vol rate/Area] ml/min/1.73sqm Invalid Interpretation Code ADM SS Glucose [Mass/Vol] 100 mg/dL Invalid Interpretation Code 82 - 115 mg/dL ADM SS Magnesium [Mass/Vol] 1.7 mg/dL Invalid Interpretation Code 1.6 - 2.4 mg/dL ADM SS Potassium [Moles/Vol] 4.6 mmol/L Invalid Interpretation Code 3.5 - 5.0 mEq/L ADM SS Comment on above: Result Comment: Spec imen hemolyzed. Results may be falsely elevated. Sodium [Moles/Vol] 137 mmol/L Invalid Interpretation Code 136 - 145 mEq/L ADM SS Urea nitrogen [Mass/Vol] 13.0 mg/dL Invalid Interpretation Code 8.0 - 22.0 mg/dL ADM SS Comment on above: Result Comment: Spec imen hemolyzed. Results may be falsely elevated. Urea nitrogen/Creatinine [Mass ratio] 16.9 ratio Invalid Interpretation Code 10.0 - 22.0 ratio ADM SS LABORATORYOrdered By: SYSTEM SYSTEM on 10-10-2022 Calcium [Mass/Vol] 9.3 mg/dL Invalid Interpretation Code 8.7 - 10.4 mg/dL ADM SS Chloride [Moles/Vol] 104 mmol/L Invalid Interpretation Code 98 - 110 mEq/L ADM SS CO2 [Moles/Vol] 27 mmol/L Invalid Interpretation Code 22 - 32 mEq/L ADM SS Creatinine [Mass/Vol] 0.68 mg/dL Invalid Interpretation Code 0.50 - 1.20 mg/dL ADM SS Electrolyte Balance 7.0 mEq/L Invalid Interpretation Code 4.0 - 15.0 mEq/L ADM SS GFR/1.73 sq M.predicted among blacks MDRD (S/P/Bld) [Vol rate/Area] ml/min/1.73sqm Invalid Interpretation Code ADM SS GFR/1.73 sq M.predicted among non-blacks MDRD (S/P/Bld) [Vol rate/Area] ml/min/1.73sqm Invalid Interpretation Code ADM SS Glucose [Mass/Vol] 138 mg/dL Invalid Interpretation Code 82 - 115 mg/dL ADM SS Magnesium [Mass/Vol] 1.7 mg/dL Invalid Interpretation Code 1.6 - 2.4 mg/dL ADM SS Potassium [Moles/Vol] 4.0 mmol/L Invalid Interpretation Code 3.5 - 5.0 mEq/L ADM SS Sodium [Moles/Vol] 138 mmol/L Invalid Interpretation Code 136 - 145 mEq/L ADM SS Urea nitrogen [Mass/Vol] 15.0 mg/dL Invalid Interpretation Code 8.0 - 22.0 mg/dL ADM SS Urea nitrogen/Creatinine [Mass ratio] 22.1 ratio Invalid Interpretation Code 10.0 - 22.0 ratio ADM SS Calcium [Mass/Vol] 9.2 mg/dL Invalid Interpretation Code 8.7 - 10.4 mg/dL ADM SS Chloride [Moles/Vol] 105 mmol/L Invalid Interpretation Code 98 - 110 mEq/L ADM SS CO2 [Moles/Vol] 28 mmol/L Invalid Interpretation Code 22 - 32 mEq/L ADM SS Creatinine [Mass/Vol] 0.74 mg/dL Invalid Interpretation Code 0.50 - 1.20 mg/dL ADM SS Electrolyte Balance 7.0 mEq/L Invalid Interpretation Code 4.0 - 15.0 mEq/L ADM SS GFR/1.73 sq M.predicted among blacks MDRD (S/P/Bld) [Vol rate/Area] ml/min/1.73sqm Invalid Interpretation Code ADM SS GFR/1.73 sq M.predicted among non-blacks MDRD (S/P/Bld) [Vol rate/Area] ml/min/1.73sqm Invalid Interpretation Code ADM SS Glucose [Mass/Vol] 92 mg/dL Invalid Interpretation Code 82 - 115 mg/dL ADM SS Magnesium [Mass/Vol] 1.9 mg/dL Invalid Interpretation Code 1.6 - 2.4 mg/dL ADM SS Potassium [Moles/Vol] 4.2 mmol/L Invalid Interpretation Code 3.5 - 5.0 mEq/L ADM SS Sodium [Moles/Vol] 140 mmol/L Invalid Interpretation Code 136 - 145 mEq/L ADM SS Urea nitrogen [Mass/Vol] 17.0 mg/dL Invalid Interpretation Code 8.0 - 22.0 mg/dL ADM SS Urea nitrogen/Creatinine [Mass ratio] 23.0 ratio Invalid Interpretation Code 10.0 - 22.0 ratio ADM SS LABORATORYOrdered By: SYSTEM SYSTEM on 09-14-2022 Basophils (Bld) [#/Vol] 0.0 103/mcL Invalid Interpretation Code 0.0 - 0.3 10^3/mcL Workflow SS Basophils/100 WBC (Bld) 0.6 % Invalid Interpretation Code 0.0 - 2.5 % Workflow SS Calcium [Mass/Vol] 9.3 mg/dL Invalid Interpretation Code 8.7 - 10.4 mg/dL ADM SS Chloride [Moles/Vol] 107 mmol/L Invalid Interpretation Code 98 - 110 mEq/L ADM SS CO2 [Moles/Vol] 29 mmol/L Invalid Interpretation Code 22 - 32 mEq/L ADM SS Creatinine [Mass/Vol] 0.74 mg/dL Invalid Interpretation Code 0.50 - 1.20 mg/dL ADM SS Electrolyte Balance 4.0 mEq/L Invalid Interpretation Code 4.0 - 15.0 mEq/L ADM SS Eosinophils (Bld) [#/Vol] 0.2 103/mcL Invalid Interpretation Code 0.0 - 0.7 10^3/mcL Workflow SS Eosinophils/100 WBC (Bld) 3.5 % Invalid Interpretation Code 0.0 - 6.0 % Workflow SS Erythrocyte distribution width (RBC) [Ratio] 16.0 % Invalid Interpretation Code 11.5 - 15.5 % Workflow SS GFR/1.73 sq M.predicted among blacks MDRD (S/P/Bld) [Vol rate/Area] ml/min/1.73sqm Invalid Interpretation Code Chemistry S GFR/1.73 sq M.predicted among non-blacks MDRD (S/P/Bld) [Vol rate/Area] ml/min/1.73sqm Invalid Interpretation Code Chemistry S Glucose [Mass/Vol] 94 mg/dL Invalid Interpretation Code 82 - 115 mg/dL ADM SS Hematocrit (Bld) [Volume fraction] 35.7 % Invalid Interpretation Code 34.0 - 46.0 % Workflow SS Hemoglobin (Bld) [Mass/Vol] 12.1 G/dL Invalid Interpretation Code 12.0 - 16.0 G/dL Workflow SS Lymphocytes (Bld) [#/Vol] 1.3 103/mcL Invalid Interpretation Code 0.9 - 4.3 10^3/mcL AH Workflow SS Lymphocytes/100 WBC (Bld) 18.6 % Invalid Interpretation Code 20.0 - 40.0 % AH Workflow SS MCH (RBC) [Entitic mass] 30.0 pg Invalid Interpretation Code 27.0 - 33.0 pg AH Workflow SS MCHC 33.9 G/dL Invalid Interpretation Code 32.0 - 36.0 G/dL AH Workflow SS MCV (RBC) [Entitic vol] 88.2 fL Invalid Interpretation Code 80.0 - 99.0 fL AH Workflow SS Monocytes (Bld) [#/Vol] 0.4 103/mcL Invalid Interpretation Code 0.1 - 1.4 10^3/mcL AH Workflow SS Monocytes/100 WBC (Bld) 6.3 % Invalid Interpretation Code 2.0 - 13.0 % AH Workflow SS Neutrophils (Bld) [#/Vol] 4.8 103/mcL Invalid Interpretation Code 2.3 - 8.1 10^3/mcL AH Workflow SS Neutrophils/100 WBC (Bld) 71.0 % Invalid Interpretation Code 50.0 - 75.0 % AH Workflow SS Platelet mean volume (Bld) [Entitic vol] 8.3 fL Invalid Interpretation Code 6.6 - 10.5 fL AH Workflow SS Platelets (Bld) [#/Vol] 196 103/mcL Invalid Interpretation Code 150 - 450 10^3/mcL AH Workflow SS Potassium [Moles/Vol] 3.8 mmol/L Invalid Interpretation Code 3.5 - 5.0 mEq/L ADM SS Comment on above: Result Comment: Spec imen slightly hemolyzed. RBC (Bld) [#/Vol] 4.04 106/mcL Invalid Interpretation Code 4.10 - 5.30 10^6/mcL AH Workflow SS Sodium [Moles/Vol] 140 mmol/L Invalid Interpretation Code 136 - 145 mEq/L ADM SS Urea nitrogen [Mass/Vol] 13.0 mg/dL Invalid Interpretation Code 8.0 - 22.0 mg/dL AH ADM SS Urea nitrogen/Creatinine [Mass ratio] 17.6 ratio Invalid Interpretation Code 10.0 - 22.0 ratio AH ADM SS WBC (Bld) [#/Vol] 6.8 103/mcL Invalid Interpretation Code 4.5 - 10.8 10^3/mcL Workflow SS LABORATORYOrdered By: SYSTEM SYSTEM on 08-24-2022 Albumin BCP dye [Mass/Vol] 3.7 G/dL Invalid Interpretation Code 3.2 - 4.8 G/dL ADM SS Albumin/Globulin [Mass ratio] 1.2 {ratio} Invalid Interpretation Code 0.9 - 1.6 ratio ADM SS ALP [Catalytic activity/Vol] 123 U/L Invalid Interpretation Code 38 - 126 U/L ADM SS ALT No additional P-5'-P [Catalytic activity/Vol] 47 U/L Invalid Interpretation Code 10 - 49 U/L ADM SS AST [Catalytic activity/Vol] 32 U/L Invalid Interpretation Code 8 - 34 U/L ADM SS Bilirubin [Mass/Vol] 1.00 mg/dL Invalid Interpretation Code 0.20 - 1.20 mg/dL ADM SS Calcium [Mass/Vol] 8.9 mg/dL Invalid Interpretation Code 8.7 - 10.4 mg/dL ADM SS Chloride [Moles/Vol] 104 mmol/L Invalid Interpretation Code 98 - 110 mEq/L ADM SS CO2 [Moles/Vol] 30 mmol/L Invalid Interpretation Code 22 - 32 mEq/L ADM SS Creatinine [Mass/Vol] 0.83 mg/dL Invalid Interpretation Code 0.50 - 1.20 mg/dL ADM SS Electrolyte Balance 8.0 mEq/L Invalid Interpretation Code 4.0 - 15.0 mEq/L ADM SS GFR/1.73 sq M.predicted among blacks MDRD (S/P/Bld) [Vol rate/Area] ml/min/1.73sqm Invalid Interpretation Code Chemistry S GFR/1.73 sq M.predicted among non-blacks MDRD (S/P/Bld) [Vol rate/Area] ml/min/1.73sqm Invalid Interpretation Code Chemistry S Globulin 3.2 G/dL Invalid Interpretation Code 1.5 - 3.8 G/dL ADM SS Glucose [Mass/Vol] 106 mg/dL Invalid Interpretation Code 82 - 115 mg/dL ADM SS Potassium [Moles/Vol] 4.1 mmol/L Invalid Interpretation Code 3.5 - 5.0 mEq/L ADM SS Protein [Mass/Vol] 6.9 G/dL Invalid Interpretation Code 5.7 - 8.2 G/dL ADM SS Sodium [Moles/Vol] 142 mmol/L Invalid Interpretation Code 136 - 145 mEq/L AH ADM SS Urea nitrogen [Mass/Vol] 18.0 mg/dL Invalid Interpretation Code 8.0 - 22.0 mg/dL AH ADM SS Urea nitrogen/Creatinine [Mass ratio] 21.7 ratio Invalid Interpretation Code 10.0 - 22.0 ratio AH ADM SS BASIC METABOLIC PANELon 11-2 Anion gap [Moles/Vol] 10.2 mmol/L Low [facility] (Lab) Comment on above: Performed By: #### B MP #### [address] [place] [address] Calcium [Mass/Vol] 9.5 mg/dL [facility] (Lab) Comment on above: Performed By: #### B MP #### [address] [place] [address] Chloride [Moles/Vol] 106 mmol/L [facility] (Lab) Comment on above: Performed By: #### B MP #### [address] [place] [address] CO2 [Moles/Vol] 26.0 mmol/L [facility] (Lab) Comment on above: Performed By: #### B MP #### [address] [place] [address] Creatinine [Mass/Vol] 0.80 mg/dL [facility] (Lab) Comment on above: Performed By: #### B MP #### [address] [place] [address] GFR > 60.0 [facility] (Lab) Comment on above: Performed By: #### B MP #### [address] [place] [address] GFR AM > 60.0 [facility] (Lab) Comment on above: Result Comment: THE NORMAL LEVEL OF GFR VARIES ACCORDING TO AGE, SEX, AND BODY SIZE. A GFR LEVEL OF LESS THAN 60 ML/MIN REPRESENTS LOSS OF THE ADULT LEVEL OF NORMAL KIDNEY FUNCTION. Performed By: #### B MP #### [facility] [address] [place] [address] Glucose [Mass/Vol] 106 mg/dL High [facility] (Lab) Comment on above: Performed By: #### B MP #### [facility] [address] [place] [address] Potassium [Moles/Vol] 4.1 mmol/L [facility] (Lab) Comment on above: Performed By: #### B MP #### [facility] [address] [place] [address] Sodium [Moles/Vol] 138 mmol/L [facility] (Lab) Comment on above: Performed By: #### B MP #### [facility] [address] [place] [address] Urea nitrogen [Mass/Vol] 15.0 mg/dL [facility] (Lab) Comment on above: Performed By: #### B MP #### [facility] [address] [place] [address] CBC W Auto Differential pane l (Bld)on 08-15-2022 bas0 % % [facility] (Lab) gran # K/uL [facility] (Lab) gran % % [facility] (Lab) MCH (RBC) [Entitic mass] 34.8 pg [facility] (Lab) mean corpuscular HGB pg [facility] (Lab) red cell distri width % All [facility] (Lab) CBC with AUTO DIFFon 022 BAS0 % 0.80 % Normal 0-2 [facility] Comment on above: Performed By: #### C BC ####[facility] [place] [address] Basophils (Bld) [#/Vol] 0.1 10*3/uL [facility] (Lab) Comment on above: Performed By: #### C BC ####[facility] [place] [address] Eosinophils (Bld) [#/Vol] 0.3 10*3/uL [facility] (Lab) Comment on above: Performed By: #### C BC ####[facility] [place] [address] Eosinophils/100 WBC (Bld) 3.7 % [facility] (Lab) Comment on above: Performed By: #### C BC ####[facility] [place] [address] GRAN # 4.9 K/uL Normal 2.2-9.1 [facility] Comment on above: Performed By: #### C BC ####[facility] [place] [address] GRAN % 66.9 % Normal 42-80 [facility] Comment on above: Performed By: #### C BC ####[facility] [facility] [place] [address] Hematocrit (Bld) [Volume fraction] 40.4 % [facility] (Lab) Comment on above: Performed By: #### C BC ####[facility] [facility] [place] [address] Hemoglobin (Bld) [Mass/Vol] 14.0 g/dL [facility] (Lab) Comment on above: Performed By: #### C BC ####[facility] [facility] [place] [address] Lymphocytes (Bld) [#/Vol] 1.5 10*3/uL [facility] (Lab) Comment on above: Performed By: #### C BC ####[facility] [facility] [place] [address] Lymphocytes/100 WBC (Bld) 21.1 % [facility] (Lab) Comment on above: Performed By: #### C BC ####[facility] [facility] [place] [address] MCV (RBC) [Entitic vol] 86.0 fL [facility] (Lab) Comment on above: Performed By: #### C BC ####[facility] [facility] [place] [address] MEAN CORPUSCULAR HGB 29.9 pg Normal 26.0-32.0 [facility] Comment on above: Performed By: #### C BC ####[facility] [facility] [place] [address] MEAN CORPUSCULAR HGB CONC 34.8 g/dL Normal 31.0-36.0 [facility] Comment on above: Performed By: #### C BC ####[facility] [facility] [place] [address] MONO DISTRIB WIDTH Not performed All [facility] (Lab) Comment on above: Performed By: #### C BC ####[facility] [facility] [place] [address] Monocytes (Bld) [#/Vol] 0.5 10*3/uL [facility] (Lab) Comment on above: Performed By: #### C BC ####[facility] [facility] [place] [address] Monocytes/100 WBC (Bld) 7.5 % [facility] (Lab) Comment on above: Performed By: #### C BC ####[facility] [facility] [place] [address] Platelet mean volume (Bld) [Entitic vol] 8.7 fL [facility] (Lab) Comment on above: Performed By: #### C BC ####[facility] [facility] [place] [address] Platelets (Bld) [#/Vol] 207 10*3/uL [facility] (Lab) Comment on above: Performed By: #### C BC ####[facility] [place] [address] RBC (Bld) [#/Vol] 4.69 10*6/uL [facility] (Lab) Comment on above: Performed By: #### C BC ####[facility] [place] [address] RED CELL DISTRI WIDTH 15.2 % Normal 11.0-15.5 [facility] Comment on above: Performed By: #### C BC ####[facility] [place] [address] WBC (Bld) [#/Vol] 7.3 10*3/uL [facility] (Lab) Comment on above: Performed By: #### C BC ####[facility] [place] [address] No Panel Informationon 08-14 NEGATED: Highlighted [facility] [employer] No Panel Informationon 08-07 NEGATED: Highlighted [facility] (Radiology) LABORATORYOrdered By: SYSTEM SYSTEM on 07-31-2022 Albumin BCP dye [Mass/Vol] 4.3 G/dL Invalid Interpretation Code 3.2 - 4.8 G/dL ADM SS Albumin/Globulin [Mass ratio] 1.3 {ratio} Invalid Interpretation Code 0.9 - 1.6 ratio AH ADM SS ALP [Catalytic activity/Vol] 114 U/L Invalid Interpretation Code 38 - 126 U/L AH ADM SS ALT No additional P-5'-P [Catalytic activity/Vol] 15 U/L Invalid Interpretation Code 10 - 49 U/L AH ADM SS AST [Catalytic activity/Vol] 18 U/L Invalid Interpretation Code 8 - 34 U/L AH ADM SS Basophils (Bld) [#/Vol] 0.0 103/mcL Invalid Interpretation Code 0.0 - 0.3 10^3/mcL Workflow SS Basophils/100 WBC (Bld) 0.5 % Invalid Interpretation Code 0.0 - 2.5 % Workflow SS Bilirubin [Mass/Vol] 1.40 mg/dL Invalid Interpretation Code 0.20 - 1.20 mg/dL ADM SS Calcium [Mass/Vol] 9.4 mg/dL Invalid Interpretation Code 8.7 - 10.4 mg/dL ADM SS Chloride [Moles/Vol] 106 mmol/L Invalid Interpretation Code 98 - 110 mEq/L ADM SS CO2 [Moles/Vol] 30 mmol/L Invalid Interpretation Code 22 - 32 mEq/L ADM SS Creatinine [Mass/Vol] 0.75 mg/dL Invalid Interpretation Code 0.50 - 1.20 mg/dL ADM SS Electrolyte Balance 5.0 mEq/L Invalid Interpretation Code 4.0 - 15.0 mEq/L ADM SS Eosinophils (Bld) [#/Vol] 0.2 103/mcL Invalid Interpretation Code 0.0 - 0.7 10^3/mcL Workflow SS Eosinophils/100 WBC (Bld) 1.9 % Invalid Interpretation Code 0.0 - 6.0 % Workflow SS Erythrocyte distribution width (RBC) [Ratio] 14.8 % Invalid Interpretation Code 11.5 - 15.5 % Workflow SS GFR/1.73 sq M.predicted among blacks MDRD (S/P/Bld) [Vol rate/Area] ml/min/1.73sqm Invalid Interpretation Code Chemistry S GFR/1.73 sq M.predicted among non-blacks MDRD (S/P/Bld) [Vol rate/Area] ml/min/1.73sqm Invalid Interpretation Code Chemistry S Globulin 3.3 G/dL Invalid Interpretation Code 1.5 - 3.8 G/dL ADM SS Glucose [Mass/Vol] 98 mg/dL Invalid Interpretation Code 82 - 115 mg/dL ADM SS Hematocrit (Bld) [Volume fraction] 40.0 % Invalid Interpretation Code 34.0 - 46.0 % Workflow SS Hemoglobin (Bld) [Mass/Vol] 13.8 G/dL Invalid Interpretation Code 12.0 - 16.0 G/dL Workflow SS Lymphocytes (Bld) [#/Vol] 1.3 103/mcL Invalid Interpretation Code 0.9 - 4.3 10^3/mcL AH Workflow SS Lymphocytes/100 WBC (Bld) 14.1 % Invalid Interpretation Code 20.0 - 40.0 % AH Workflow SS MCH (RBC) [Entitic mass] 30.2 pg Invalid Interpretation Code 27.0 - 33.0 pg AH Workflow SS MCHC 34.5 G/dL Invalid Interpretation Code 32.0 - 36.0 G/dL AH Workflow SS MCV (RBC) [Entitic vol] 87.7 fL Invalid Interpretation Code 80.0 - 99.0 fL AH Workflow SS Monocytes (Bld) [#/Vol] 0.4 103/mcL Invalid Interpretation Code 0.1 - 1.4 10^3/mcL AH Workflow SS Monocytes/100 WBC (Bld) 4.0 % Invalid Interpretation Code 2.0 - 13.0 % AH Workflow SS Neutrophils (Bld) [#/Vol] 7.4 103/mcL Invalid Interpretation Code 2.3 - 8.1 10^3/mcL AH Workflow SS Neutrophils/100 WBC (Bld) 79.5 % Invalid Interpretation Code 50.0 - 75.0 % AH Workflow SS Platelet mean volume (Bld) [Entitic vol] 8.3 fL Invalid Interpretation Code 6.6 - 10.5 fL AH Workflow SS Platelets (Bld) [#/Vol] 206 103/mcL Invalid Interpretation Code 150 - 450 10^3/mcL AH Workflow SS Potassium [Moles/Vol] 4.1 mmol/L Invalid Interpretation Code 3.5 - 5.0 mEq/L ADM SS Protein [Mass/Vol] 7.6 G/dL Invalid Interpretation Code 5.7 - 8.2 G/dL AH ADM SS RBC (Bld) [#/Vol] 4.56 106/mcL Invalid Interpretation Code 4.10 - 5.30 10^6/mcL AH Workflow SS Sodium [Moles/Vol] 141 mmol/L Invalid Interpretation Code 136 - 145 mEq/L AH ADM SS Urea nitrogen [Mass/Vol] 15.0 mg/dL Invalid Interpretation Code 8.0 - 22.0 mg/dL AH ADM SS Urea nitrogen/Creatinine [Mass ratio] 20.0 ratio Invalid Interpretation Code 10.0 - 22.0 ratio AH ADM SS WBC (Bld) [#/Vol] 9.3 103/mcL Invalid Interpretation Code 4.5 - 10.8 10^3/mcL AH Workflow SS LABORATORYOrdered By: Camille Campbell on 07-31-2022 Appearance (U) Clear (07/31/22 9:46 AM) Invalid Interpretation Code Clear AH Auto Urine SS Bilirubin Ql (U) Negative (07/31/22 9:46 AM) Invalid Interpretation Code Neg-Trace AH Auto Urine SS Color (U) Straw (07/31/22 9:46 AM) Invalid Interpretation Code AH Auto Urine SS Glucose Test strip (U) [Mass/Vol] Negative Invalid Interpretation Code Negativemg/d L AH Auto Urine SS Hemoglobin Auto test strip (U) [Mass/Vol] Negative (07/31/22 9:46 AM) Invalid Interpretation Code Neg-Trace AH Auto Urine SS Ketones Ql (U) Negative Invalid Interpretation Code Neg-Tracemg/ dL AH Auto Urine SS UA Leuk Est Negative (07/31/22 9:46 AM) Invalid Interpretation Code Negative AH Auto Urine SS UA Nitrite Negative (07/31/22 9:46 AM) Invalid Interpretation Code Negative AH Auto Urine SS UA pH 5.5 (07/31/22 9:46 AM) Invalid Interpretation Code 5.0 - 8.0 AH Auto Urine SS UA Protein Negative Invalid Interpretation Code Negativemg/d L AH Auto Urine SS UA Spec Grav <=1.005 *ABN* (07/31/22 9:46 AM) Invalid Interpretation Code 1.006-1.029 AH Auto Urine SS UA Specimen Type Clean Catch (07/31/22 9:46 AM) Invalid Interpretation Code AH Auto Urine SS UA Urobilinogen 0.2 E.U./dL Invalid Interpretation Code 0.2-1.0E.U./ dL AH Auto Urine SS LABORATORYOrdered By: Cari Toney on 07-31-2022 aPTT Coag (PPP) [Time] 49.3 s Invalid Interpretation Code 25.0 - 35.0 seconds AH Auto Coag SS Fibrinogen Coag (PPP) [Mass/Vol] 501 mg/dL Invalid Interpretation Code 250 - 560 mg/dL AH Auto Coag SS Heparin dose (APTT) None Invalid Interpretation Code AH Auto Coag SS INR Coag (PPP) [Relative time] 1.5 {INR} Invalid Interpretation Code AH Auto Coag SS PT Coag (PPP) [Time] 17.6 s Invalid Interpretation Code 9.0 - 14.9 seconds AH Auto Coag SS LABORATORYOrdered By: Melissa Saldana on 07-31-2022 Natriuretic peptide.B prohormone N-Terminal [Mass/Vol] 1320 pg/mL Invalid Interpretation Code 0 - 900 pg/mL AH Auto Chem SS XR Chest 2 Viewson 2 NEGATED: Highlighted row [facility] [place] PFT,ST,TEEon 04-27-2022 PFT,ST,[place] Patient name: DORCAS ANGULO MR#: [id number] [place] [facility] [place] Acc#: [id number] Admit/Service Date: 04/24/22 : 1960 Age: 61 Sex: F Dictated By: Louis Montez MD DICTATED BY: Louis Montez M.D. DATE OF SERVICE: 04/24/2022 DIAGNOSIS: Pulmonary hypertension. Spirometry study showed FEV1/FVC ratio of 102% of the predicted. FEV1 less larry 67% of the predicted, FVC that than 65% of the predicted. FEF 25-75% is 83% of the predicted. There was no significant change post bronchodilator therapy. Total lung capacity less than 72%. Residual volume more than 79%. Diffusion capacity when adjusted to body surface area . Good patient effort and understanding, acceptable results and reproducibility. Flow volume curve showed moderate degree of restrictive airway disease. CONCLUSION: 1. Moderate degree of restrictive airway disease. 2. Bronchodilator therapy has not demonstrated any significant change indicatin that the patient will not benefit from continued bronchodilator therapy. 3. No evidence of diffusion defect. CARTER/RYAN @ 12:27 @ 13:49 # [id number] Ike Smith 04/27/22 1227 04/27/22 1349 Electronically Signed Date/Time: 05/02/22 0959 [facility] LUNG PERFUSION/VENT GASon LUNG PERFUSION/VENT GAS DORCAS ANGULO Female [id number] Ordering physician: Carley Lucio LOC:NUC [id number] Attending physician: Carley Lucio 1960 7 0 DOS: 04/24/22 Acc#: [id number] Exam/Proc: LUNG PERFUSION/VENT GAS Dept: NUCLE[facility] MEDICINE EXAMINATION: VENTILATION AND PERFUSION IMAGING OF THE LUNGS04/25/2022 8:09 am TECHNIQUE: 5.4 millicuries of Tc99m MAA and 2.0 millicuries of Tc99m DTPA aerosol were utilized. COMPARISON: None CORRELATION: Chest radiograph dated April 24, 2022 HISTORY: ORDERING SYSTEM PROVIDED HISTORY: I27.20 G47.33 FINDINGS: LPO and RPO projections demonstrate areas of mildly decreased perfusion in the lower lobes. There is normal ventilation in these regions. IMPRESSION: Possibility of chronic pulmonary embolism in the lower lobes cannot be excluded. Nondiagnostic for acute pulmonary embolism by modified PIOPED II criteria. The findings were sent to the [facility] at 8:44 am on 04/25/2022 to be communicated to a licensed caregiver. Electronically signed By Robert Wilkinson MD 04/25/2022 8:46:58 AM EST Workstation ID : [id number] REPORT SIGNATURE ON FILE Electronically Signed Date/Time: 04/25/2246 Dictated Date/time: 04/25/22829 CC: Normal [facility] BASIC METABOLIC PANELon 08-0 Anion gap [Moles/Vol] 6.4 mmol/L Low 11-23 [facility] Comment on above: Performed By: #### B MP #### [facility] [address] [place] [address] Calcium [Mass/Vol] 9.0 mg/dL Normal 8.5-10.1 [facility] Comment on above: Performed By: #### B MP #### [facility] [address] [place] [address] Chloride [Moles/Vol] 107 mmol/L Normal 98-107 [facility] Comment on above: Performed By: #### B MP #### [facility] [address] [place] [address] CO2 [Moles/Vol] 29.0 mmol/L Normal 21-32 [facility] Comment on above: Performed By: #### B MP #### [facility] [address] [place] [address] Creatinine [Mass/Vol] 0.80 mg/dL Normal 0.55-1.02 [facility] Comment on above: Performed By: #### B MP #### [facility] [address] [place] [address] GFR > 60.0 [facility] Comment on above: Performed By: #### B MP #### [facility] [address] [place] [address] GFR AM > 60.0 [facility] Comment on above: Result Comment: THE NORMAL LEVEL OF GFR VARIES ACCORDING TO AGE, SEX, AND BODY SIZE. A GFR LEVEL OF LESS THAN 60 ML/MIN REPRESENTS LOSS OF THE ADULT LEVEL OF NORMAL KIDNEY FUNCTION. Performed By: #### B MP #### [facility] [address] [place] [address] Glucose [Mass/Vol] 98 mg/dL Normal 70-100 [facility] Comment on above: Performed By: #### B MP #### [facility] [address] [place] [address] Potassium [Moles/Vol] 3.5 mmol/L Normal 3.5-5.1 [facility] Comment on above: Performed By: #### B MP #### [facility] [address] [place] [address] Sodium [Moles/Vol] 139 mmol/L Normal 136-145 [facility] Comment on above: Performed By: #### B MP #### [facility] [address] [place] [address] Urea nitrogen [Mass/Vol] 18.0 mg/dL Normal 7-18 [facility] Comment on above: Performed By: #### B MP #### [facility] [address] [place] [address] CHEST-2 VIEWon 04-24-2022 CHEST-2 VIEW DORCAS ANGULO Female [id number] Ordering physician: Carley Lucio LOC:NUC [id number] Attending physician: Carley Lucio 1960 6 0 DOS: 04/24/22 Acc#: [id number] Exam/Proc: CHEST-2 VIEW Dept: RADIOLOGY HISTORY: Dyspnea, pulmonary hypertension COMPARISON: 02 March 2022 FINDINGS: There are a few mild streaky airspace opacities in the left mid and lower lung. The lungs are otherwise clear. The cardiac silhouette is within normal size limits. The pulmonary vasculature is unremarkable in appearance. IMPRESSION: Mild left atelectasis or scarring, otherwise unremarkable. Electronically signed By Venkatesh Herrera MD 04/24/2022 12:09:46 PM EST Workstation ID : [id number] REPORT SIGNATURE ON FILE Electronically Signed Date/Time: 04/24/22 1209 Dictated Date/time: 04/24/22 1206 CC: [facility] LABORATORYOrdered By: SYSTEM SYSTEM on 04-12-2022 CRP High sensitivity method [Mass/Vol] 2.55 mg/L Invalid Interpretation Code 0.20 - 3.00 mg/L AH ADM SS LABORATORYOrdered By: Camille Campbell on 04-12-2022 ESR 15 minute reading (Bld) [Velocity] 9 mm/hr Invalid Interpretation Code 0 - 30 mm/hr AH Manual Heme SS LABORATORYOrdered By: Mena Vinson on 04-10-2022 Albumin BCP dye [Mass/Vol] 4.1 G/dL Invalid Interpretation Code 3.4 - 4.8 G/dL AO ADM SS Albumin/Globulin [Mass ratio] 1.3 {ratio} Invalid Interpretation Code 1.1 - 2.5 ratio AO ADM SS ALP [Catalytic activity/Vol] 116 U/L Invalid Interpretation Code 40 - 135 U/L AO ADM SS ALT With P-5'-P [Catalytic activity/Vol] 21 U/L Invalid Interpretation Code 14 - 59 U/L AO ADM SS AST With P-5'-P [Catalytic activity/Vol] 13 U/L Invalid Interpretation Code 10 - 40 U/L AO ADM SS Bilirubin [Mass/Vol] 1.0 mg/dL Invalid Interpretation Code 0.2 - 1.0 mg/dL AO ADM SS Calcium [Mass/Vol] 9.1 mg/dL Invalid Interpretation Code 8.4 - 10.2 mg/dL AO ADM SS Chloride [Moles/Vol] 106 mmol/L Invalid Interpretation Code 98 - 107 mmol/L AO ADM SS CO2 [Moles/Vol] 28 mmol/L Invalid Interpretation Code 23 - 31 mmol/L AO ADM SS Creatinine [Mass/Vol] 0.93 mg/dL Invalid Interpretation Code 0.55 - 1.02 mg/dL AO ADM SS Electrolyte Balance 8.0 mEq/L Invalid Interpretation Code 4.0 - 15.0 mEq/L AO ADM SS Globulin 3.1 G/dL Invalid Interpretation Code AO ADM SS Glucose [Mass/Vol] 84 mg/dL Invalid Interpretation Code 80 - 115 mg/dL AO ADM SS Potassium [Moles/Vol] 3.9 mmol/L Invalid Interpretation Code 3.5 - 5.1 mmol/L AO ADM SS Protein [Mass/Vol] 7.2 G/dL Invalid Interpretation Code 6.4 - 8.2 G/dL AO ADM SS Sodium [Moles/Vol] 142 mmol/L Invalid Interpretation Code 136 - 145 mmol/L AO ADM SS Urea nitrogen [Mass/Vol] 17 mg/dL Invalid Interpretation Code 7 - 18 mg/dL AO ADM SS Urea nitrogen/Creatinine [Mass ratio] 18 ratio Invalid Interpretation Code 7 - 27 ratio AO ADM SS LABORATORYOrdered By: Shira Garzon on 04-10-2022 Basophil, Absolute 0.1 103/mcL Invalid Interpretation Code 0.0 - 0.2 10^3/mcL AO Workflow SS Basophils/100 WBC (Bld) 0.7 % Invalid Interpretation Code 0.0 - 2.5 % AO Workflow SS Eosinophil, Absolute 0.3 103/mcL Invalid Interpretation Code 0.0 - 0.4 10^3/mcL AO Workflow SS Eosinophils/100 WBC (Bld) 2.8 % Invalid Interpretation Code 0.0 - 7.0 % AO Workflow SS Erythrocyte distribution width (RBC) [Ratio] 15.2 % Invalid Interpretation Code 11.5 - 14.5 % AO Workflow SS Hematocrit (Bld) [Volume fraction] 38.0 % Invalid Interpretation Code 37.0 - 47.0 % AO Workflow SS Hemoglobin (Bld) [Mass/Vol] 13.2 G/dL Invalid Interpretation Code 12.0 - 16.0 G/dL AO Workflow SS Lymphocyte, Absolute 1.7 103/mcL Invalid Interpretation Code 0.8 - 3.9 10^3/mcL AO Workflow SS Lymphocytes/100 WBC (Bld) 18.1 % Invalid Interpretation Code 10.0 - 50.0 % AO Workflow SS MCH (RBC) [Entitic mass] 30.2 pg Invalid Interpretation Code 27.0 - 31.2 pg AO Workflow SS MCHC 34.8 G/dL Invalid Interpretation Code 33.0 - 37.0 G/dL AO Workflow SS MCV (RBC) [Entitic vol] 86.9 fL Invalid Interpretation Code 80.0 - 94.0 fL AO Workflow SS Monocyte, Absolute 0.6 103/mcL Invalid Interpretation Code 0.2 - 1.0 10^3/mcL AO Workflow SS Monocytes/100 WBC (Bld) 5.9 % Invalid Interpretation Code 1.7 - 13.0 % AO Workflow SS Neutrophil, Absolute 6.7 103/mcL Invalid Interpretation Code 2.9 - 6.2 10^3/mcL AO Workflow SS Neutrophils/100 WBC (Bld) 72.5 % Invalid Interpretation Code 37.0 - 80.0 % AO Workflow SS Platelet mean volume (Bld) [Entitic vol] 8.6 fL Invalid Interpretation Code 7.4 - 10.4 fL AO Workflow SS Platelets (Bld) [#/Vol] 220 103/mcL Invalid Interpretation Code 130 - 400 10^3/mcL AO Workflow SS RBC (Bld) [#/Vol] 4.37 106/mcL Invalid Interpretation Code 4.20 - 5.40 10^6/mcL AO Workflow SS WBC 9.3 103/mcL Invalid Interpretation Code 4.6 - 10.8 10^3/mcL AO Workflow SS LABORATORYOrdered By: SYSTEM SYSTEM on 04-10-2022 GFR 75 ml/min/1.73sqm Invalid Interpretation Code AO Chemistry S GFR Non- 62 ml/min/1.73sqm Invalid Interpretation Code AO Chemistry S Monocyte distribution width Auto (Bld) [Entitic vol] Not Performed 1 *NA* (04/10/22 4:39 PM) Invalid Interpretation Code 0.00 - 20.00 AO Hematology S Comment on above: Result Comment: MDW testing performed only on adult ER patients between the ages of 18-89 years. CHEST-2 VIEWon 03-02-2022 CHEST-2 VIEW DORCAS ANGULO Female [id number] Ordering physician: Lina Zendejas LOC:RAD [id number] Attending physician: Lina Zendejas 1960 61 DOS: 03/02/22 Acc#: [id number] Exam/Proc: CHEST-2 VIEW Dept: RADIOLOGY EXAMINATION: TWO XRAY VIEWS OF THE CHEST03/02/2022 9:51 am CHEST AP/PA and LATERAL EXAM DESCRIPTION: COMPARISON: Chest, June 06, 2018 HISTORY: ORDERING SYSTEM PROVIDED HISTORY: TECHNOLOGIST PROVIDED HISTORY: Reason for Exam: R05.9 COUGH FINDINGS: PA and lateral radiographs of the chest were obtained. Interstitial opacities are present within the right middle lobe. The lungs are clear without evidence of focal consolidation, mass, pleural effusion, or pneumothorax. The cardiomediastinal silhouette is unremarkable. Mild degenerative changes are present within the spine. IMPRESSION: Right middle lobe infiltrate. Electronically signed By Mariela Santana MD 03/02/2022 9:03:55 PM EST Workstation ID : [id number] REPORT SIGNATURE ON FILE Electronically Signed Date/Time: 03/02/222102 Dictated Date/time: 03/02/222101 CC: Normal [facility] T3 TOTALon 02-28-2022 T3 TOTAL 105 ng/dL Normal 71-180 [facility] Comment on above: Result Comment: Perf ormed At: CB [facility] [address] [id number] Craig Fernandez PhD [phone] Performed By: #### L 500.84097, L500.78952, L500.55266 #### [facility] [address] [place] [address] # [phone] #### L500.45770 #### [facility] [address] [place] [address] MAGNESIUMon 02-27-2022 Magnesium [Mass/Vol] 1.8 mg/dL Normal 1.6-2.6 [facility] Comment on above: Performed By: #### L 500.72585, L500.93357, L500.78069 #### [facility] [address] [place], [place] [id number] #### L500.18275 #### [facility] [address] [place] [address] PBNP TESTon 02-27-2022 Natriuretic peptide B (Bld) [Mass/Vol] 807 pg/mL High 0-125 [facility] Comment on above: Result Comment: NT-p roBNP results of less than 300 pg/ml likely rules out acute congestive heart failure with 99% predictive value. NOTE: These cuttoff points are suggested for ACUTE CHF DIAGNOSIS only Less than 50 years Greater than 450 pg/ml 50-75 years Greater than 900 pg/ml Greater than 75 years Greater than 1800 pg/ml NOTE NEW NORMAL RANGE Performed By: #### L 500.39636 #### [facility] [address] [place], [place] [id number] PTon 02-27-2022 INR Coag (PPP) [Relative time] 0.99 {INR} Normal 0.9-1.1 [facility] Comment on above: Result Comment: Ian mmended PT INR therapeutic range for intermediate and prophylactic therapy is 2.0 - 3.0. For heart valve and shunt patients the range is 2.5 - 3.5. Performed By: #### L 300.14684, L300.29746 #### [facility] [address] [place], [place] [id number] PTS 10.8 SECONDS Normal 9.5-12.0 [facility] Comment on above: Performed By: #### L 300.69846, L300.46025 #### [facility] [address] [place] [address] PTTon 02-27-2022 aPTT Coag (Bld) [Time] 25.2 s Normal 22.0-31.5 [facility] Comment on above: Result Comment: Ther apeutic Heparin Reference Range: High Dose: 46-75 seconds (DVT/PE) Low Dose: 39-60 seconds (Acute Coronary Syndrome) For low molecular weight heparin or danaparoid, monitoring is often NOT necessary, but the heparin assay, Xa inhibition assay (send-out) may be used in certain circumstances, as the PTT is generally insensitive to the effect of these agents. Direct thrombin inhibitors are becoming more widely utilized and these drugs are often monitored using the PTT. Performed By: #### L 300.18074, L300.04259 #### [facility] [address] [place] [address] T4on 02-27-2022 T4 [Mass/Vol] 7.6 ug/dL Normal 4.8-13.9 [facility] Comment on above: Result Comment: RESU LTS MAY BE FALSELY ELEVATED AFTER THE ADMINISTRATION OF SULFASALAZINE. Performed By: #### L 500.49003, L500., L500.44756 #### [facility] [address] [place] [address] #### L500.27435 #### [facility] [address] [place] [address] TSHon 02-27-2022 TSH 4.169 UIU/ML High 0.358-3.740 [facility] Comment on above: Result Comment: 3rd generation ultra sensitive TSH Performed By: #### L 500.98507, L500.97993, L500.86556 #### [facility] [address] [place] [address] #### L500.94551 #### [facility] [address] [place] [address] # [phone] CHEST PA/AP AND LATERALon CHEST PA/AP AND LATERAL CHEST PA/AP LATERAL Ordering Physician: Lina Zendejas MD PA AND LATERAL CHEST RADIOGRAPHS Clinical Statement: Chest pain Comparison: None FINDINGS: The heart is borderline enlarged. Atherosclerotic calcifications are present within the aorta. There is no focal consolidation, vascular congestion or pleural fluid. No pneumothorax. IMPRESSION: No acute process. This report was electronically signed by Carolyn Andre MD 02/27/2022 7:44 AM Reported By: CAROLYN ANDRE M.D. Signed By: CAROLYN ANDRE M.D. Normal [facility] 25-hydroxyvitamin D [Mass/Vo l]on 02-10-2022 vit D 25 oh NG/mL [facility] (Lab) Free T4 [Mass/Vol]on 022 thyroxine (T4) free NG/dL [facility] (Lab) LIPID PROFILE (FASTING)on CHOL/HDL RATIO 2.9 mg/dl Normal 3.7-5.6 [facility] Comment on above: Performed By: #### T SH, FT4, LIPID #### [facility] [address] [place] [address] Cholesterol [Mass/Vol] 129 mg/dL Normal 0-200 [facility] (Lab) Comment on above: Performed By: #### T SH, FT4, LIPID #### [facility] [address] [place] [address] Cholesterol in HDL [Mass/Vol] 45 mg/dL Normal 40-60 [facility] (Lab) Comment on above: Performed By: #### T SH, FT4, LIPID #### [facility] [address] [place] [address] Cholesterol in LDL [Mass/Vol] 70 mg/dL Normal 0-130 [facility] (Lab) Comment on above: Performed By: #### T SH, FT4, LIPID #### [facility] [address] [place] [address] Triglyceride [Mass/Vol] 72 mg/dL Normal 0-150 [facility] (Lab) Comment on above: Performed By: #### T SH, FT4, LIPID #### [facility] [address] [place] [address] VLDL CALCULATION 14 mg/dl Normal 5-40 [facility] Comment on above: Performed By: #### T SH, FT4, LIPID #### [facility] [address] [place] [address] Laboratory - Chemistry and C hemistry - challengeon 02-10-2022 Cholesterol.total/Cho lesterol in HDL [Mass ratio] 2.9 {ratio} [facility] (Lab) No Panel Informationon 02-10 VLDL calculation mg/dL [facility] (Lab) THYROID STIM HORMONEon 02-10 THYROID STIM HORMONE 3.240 uIU/mL Normal 0.358-3.74 [facility] Comment on above: Performed By: #### T SH, FT4, LIPID #### [facility] [address] [place] [address] THYROXINE (T4) FREEon 2021 THYROXINE (T4) FREE 1.0 ng/dL Normal 0.76-1.46 [facility] Comment on above: Performed By: #### T SH, FT4, LIPID #### [facility] [address] [place] [address] TSH Qnon 02-10-2022 thyroid stim hormone uIU/mL [facility] (Lab) VIT D 25 OHon 02-10-2022 VIT D 25 OH 39.7 ng/mL Normal 30-100 [facility] Comment on above: Result Comment: Inte rpretation of VitD results: Adult: <20 ng/mL Deficient 20 - <30 ng/mL Insufficiency 30 - 100 ng/mL Sufficiency Pediatric: <15 ng/mL Deficient 15 - <20 ng/mL Insufficiency 20 - 100 ng/mL Sufficiency Performed By: #### V ITD #### [address] [address] CBC W Auto Differential pane l (Bld)on 02-03-2022 bas0 % % [facility] (Lab) gran # K/uL [facility] (Lab) gran % % [facility] (Lab) MCH (RBC) [Entitic mass] 34.9 pg [facility] (Lab) mean corpuscular HGB pg [facility] (Lab) red cell distri width % [facility] (Lab) CBC with AUTO DIFFon 14-2 022 BAS0 % 1.30 % Normal 0-2 [facility] Comment on above: Performed By: #### C BC #### [facility] [address] [place] [address] Basophils (Bld) [#/Vol] 0.1 10*3/uL Normal 0-0.1 [facility] (Lab) Comment on above: Performed By: #### C BC #### [facility] [address] [place] [address] Eosinophils (Bld) [#/Vol] 0.2 10*3/uL Normal 0.0-1.80 [facility] (Lab) Comment on above: Performed By: #### C BC #### [facility] [address] [place] [address] Eosinophils/100 WBC (Bld) 3.7 % Normal 0-8 [facility] (Lab) Comment on above: Performed By: #### C BC #### [address] [place] [address] GRAN # 3.8 K/uL Normal 2.2-9.1 [facility] Comment on above: Performed By: #### C BC #### [address] [place] [address] GRAN % 60.7 % Normal 42-80 [facility] Comment on above: Performed By: #### C BC #### [facility] [address] [place] [address] Hematocrit (Bld) [Volume fraction] 37.4 % Normal 37.0-47.0 [facility] (Lab) Comment on above: Performed By: #### C BC #### [facility] [address] [place] [address] Hemoglobin (Bld) [Mass/Vol] 13.0 g/dL Normal 12.0-16.0 [facility] (Lab) Comment on above: Performed By: #### C BC #### [facility] [address] [place] [address] Lymphocytes (Bld) [#/Vol] 1.7 10*3/uL Normal 1.0-4.0 [facility] (Lab) Comment on above: Performed By: #### C BC #### [facility] [address] [place] [address] Lymphocytes/100 WBC (Bld) 27.7 % Normal 16-48 [facility] (Lab) Comment on above: Performed By: #### C BC #### [facility] [address] [place] [address] MCV (RBC) [Entitic vol] 87.4 fL Normal 80-97 [facility] (Lab) Comment on above: Performed By: #### C BC #### [facility] [address] [place] [address] MEAN CORPUSCULAR HGB 30.5 pg Normal 26.0-32.0 [facility] Comment on above: Performed By: #### C BC #### [facility] [address] [place] [address] MEAN CORPUSCULAR HGB CONC 34.9 g/dL Normal 31.0-36.0 [facility] Comment on above: Performed By: #### C BC #### [facility] [address] [place] [address] Monocytes (Bld) [#/Vol] 0.4 10*3/uL Normal 0.1-1.7 [facility] (Lab) Comment on above: Performed By: #### C BC #### [facility] [address] [place] [address] Monocytes/100 WBC (Bld) 6.6 % Normal 3-9 [facility] (Lab) Comment on above: Performed By: #### C BC #### [facility] [address] [place] [address] Platelet mean volume (Bld) [Entitic vol] 8.8 fL Normal 6.6-10.5 [facility] (Lab) Comment on above: Performed By: #### C BC #### [facility] [address] [place] [address] Platelets (Bld) [#/Vol] 209 10*3/uL Normal 140-450 [facility] (Lab) Comment on above: Performed By: #### C BC #### [facility] [address] [place] [address] RBC (Bld) [#/Vol] 4.28 10*6/uL Normal 4.20-5.50 [facility] (Lab) Comment on above: Performed By: #### C BC #### [facility] [address] [place] [address] RED CELL DISTRI WIDTH 15.3 % Normal 11.0-15.5 [facility] Comment on above: Performed By: #### C BC #### [facility] [address] [place] [address] WBC (Bld) [#/Vol] 6.3 10*3/uL Normal 4.0-11.0 [facility] (Lab) Comment on above: Performed By: #### C BC #### [facility] [address] [place] [address] COMPREHENSIVE METABOLIC PANE Goldy 02-03-2022 Albumin [Mass/Vol] 3.6 g/dL Normal 3.4-5.0 [facility] (Lab) Comment on above: Performed By: #### M N ####[address] [place] [address] Albumin/Globulin [Mass ratio] 1.0 {ratio} Low 1.1-1.8 [facility] (Lab) Comment on above: Performed By: #### M N ####[address] [place] [address] ALP [Catalytic activity/Vol] 108 U/L Normal 45-117 [facility] (Lab) Comment on above: Performed By: #### M N ####[address] [place] [address] ALT [Catalytic activity/Vol] 21 U/L Normal 12-78 [facility] (Lab) Comment on above: Performed By: #### M N ####[address] [place] [address] Anion gap [Moles/Vol] 8.1 mmol/L Low 11-23 [facility] (Lab) Comment on above: Performed By: #### M N ####[address] [place] [address] AST [Catalytic activity/Vol] 13 U/L Low 15-37 [facility] Comment on above: Performed By: #### M N ####[facility] [place] [address] Bilirubin [Mass/Vol] 0.7 mg/dL Normal 0.2-1.0 [facility] (Lab) Comment on above: Performed By: #### M N ####[address] [place] [address] Calcium [Mass/Vol] 8.9 mg/dL Normal 8.5-10.1 [facility] (Lab) Comment on above: Performed By: #### M N ####[facility] [place] [address] Chloride [Moles/Vol] 108 mmol/L High 98-107 [facility] (Lab) Comment on above: Performed By: #### M N ####[address] [place] [address] CO2 [Moles/Vol] 28.0 mmol/L Normal 21-32 [facility] (Lab) Comment on above: Performed By: #### M N ####[address] [place] [address] Creatinine [Mass/Vol] 0.70 mg/dL Normal 0.55-1.02 [facility] (Lab) Comment on above: Performed By: #### M N ####[address] [place] [address] GFR > 60.0 Normal [facility] (Lab) Comment on above: Performed By: #### M N ####[address] [place] [address] GFR AM > 60.0 [facility] (Lab) Comment on above: Result Comment: THE NORMAL LEVEL OF GFR VARIES ACCORDING TO AGE, SEX, AND BODY SIZE. A GFR LEVEL OF LESS THAN 60 ML/MIN REPRESENTS LOSS OF THE ADULT LEVEL OF NORMAL KIDNEY FUNCTION. Performed By: #### M N ####[address] [place] [address] Globulin (S) [Mass/Vol] 3.4 g/dL Normal 2.5-4.6 [facility] Comment on above: Performed By: #### M N ####[address] [place] [address] Glucose [Mass/Vol] 99 mg/dL Normal 70-100 [facility] (Lab) Comment on above: Performed By: #### M N ####[facility] [place] [address] Potassium [Moles/Vol] 3.9 mmol/L Normal 3.5-5.1 [facility] (Lab) Comment on above: Performed By: #### M N ####[address] [place] [address] Protein [Mass/Vol] 7.0 g/dL Normal 6.0-8.3 [facility] (Lab) Comment on above: Performed By: #### M N ####[facility] [place] [address] Sodium [Moles/Vol] 141 mmol/L Normal 136-145 [facility] (Lab) Comment on above: Performed By: #### M N ####[facility] [place] [address] Urea nitrogen [Mass/Vol] 14.0 mg/dL Normal 7-18 [facility] (Lab) Comment on above: Performed By: #### M N ####[address] [facility] [address] Comprehensive metabolic 2000 panelon 02-03-2022 globulin g/dL [facility] (Lab) SGOT/AST U/L Low [facility] (Lab) CBC with AUTO DIFFon 022 BAS0 % 0.60 % Normal 0-2 [facility] Comment on above: Performed By: #### D IFF (MANUAL), CBC ####[address] [place] [address] Basophils (Bld) [#/Vol] 0.1 10*3/uL Normal 0-0.1 [facility] Comment on above: Performed By: #### D IFF (MANUAL), CBC ####[address] [place] [address] Eosinophils (Bld) [#/Vol] 0.1 10*3/uL Normal 0.0-1.80 [facility] Comment on above: Performed By: #### D IFF (MANUAL), CBC ####[address] [place] [address] Eosinophils/100 WBC (Bld) 0.8 % Normal 0-8 [facility] Comment on above: Performed By: #### D IFF (MANUAL), CBC ####[address] [place] [address] GRAN # 5.9 K/uL Normal 2.2-9.1 [facility] Comment on above: Performed By: #### D IFF (MANUAL), CBC ####[address] [facility] [place] [address] GRAN % 63.7 % Normal 42-80 [facility] Comment on above: Performed By: #### D IFF (MANUAL), CBC ####[address] [facility] [address] Hematocrit (Bld) [Volume fraction] 40.7 % Normal 37.0-47.0 [facility] Comment on above: Performed By: #### D IFF (MANUAL), CBC ####[facility] [facility] [place] [address] Hemoglobin (Bld) [Mass/Vol] 14.1 g/dL Normal 12.0-16.0 [facility] Comment on above: Performed By: #### D IFF (MANUAL), CBC ####[address] [place] [address] Lymphocytes (Bld) [#/Vol] 2.7 10*3/uL Normal 1.0-4.0 [facility] Comment on above: Performed By: #### D IFF (MANUAL), CBC ####[address] [place] [address] Lymphocytes/100 WBC (Bld) 29.5 % Normal 16-48 [facility] Comment on above: Performed By: #### D IFF (MANUAL), CBC ####[address] [place] [address] MCV (RBC) [Entitic vol] 86.5 fL Normal 80-97 [facility] Comment on above: Performed By: #### D IFF (MANUAL), CBC ####[address] [place] [address] MEAN CORPUSCULAR HGB 30.0 pg Normal 26.0-32.0 [facility] Comment on above: Performed By: #### D IFF (MANUAL), CBC ####[address] [place] [address] MEAN CORPUSCULAR HGB CONC 34.7 g/dL Normal 31.0-36.0 [facility] Comment on above: Performed By: #### D IFF (MANUAL), CBC ####[address] [place] [address] Monocytes (Bld) [#/Vol] 0.5 10*3/uL Normal 0.1-1.7 [facility] Comment on above: Performed By: #### D IFF (MANUAL), CBC ####[facility] [place] [address] Monocytes/100 WBC (Bld) 5.4 % Normal 3-9 [facility] Comment on above: Performed By: #### D IFF (MANUAL), CBC ####[facility] [place] [address] Platelet mean volume (Bld) [Entitic vol] 7.7 fL Normal 6.6-10.5 [facility] Comment on above: Performed By: #### D IFF (MANUAL), CBC ####[facility] [place] [address] Platelets (Bld) [#/Vol] 321 10*3/uL Normal 140-450 [facility] Comment on above: Performed By: #### D IFF (MANUAL), CBC ####[facility] [place] [address] RBC (Bld) [#/Vol] 4.71 10*6/uL Normal 4.20-5.50 [facility] Comment on above: Performed By: #### D IFF (MANUAL), CBC ####[address] [place] [address] RED CELL DISTRI WIDTH 14.4 % Normal 11.0-15.5 [facility] Comment on above: Performed By: #### D IFF (MANUAL), CBC ####[facility] [place] [address] WBC (Bld) [#/Vol] 9.2 10*3/uL Normal 4.0-11.0 [facility] Comment on above: Performed By: #### D IFF (MANUAL), CBC ####[facility] [place] [address] COMPREHENSIVE METABOLIC PANE Goldy 11-13-2021 Albumin [Mass/Vol] 3.5 g/dL Normal 3.4-5.0 [facility] Comment on above: Performed By: #### M N #### [facility] [address] [place] [address] Albumin/Globulin [Mass ratio] 0.9 {ratio} Low 1.1-1.8 [facility] Comment on above: Performed By: #### M N #### [facility] [address] [place] [address] ALP [Catalytic activity/Vol] 98 U/L Normal 45-117 [facility] Comment on above: Performed By: #### M N #### [facility] [address] [place] [address] ALT [Catalytic activity/Vol] 29 U/L Normal 12-78 [facility] Comment on above: Performed By: #### M N #### [facility] [address] [place] [address] Anion gap [Moles/Vol] 10.1 mmol/L Low 11-23 [facility] Comment on above: Performed By: #### M N #### [facility] [address] [place] [address] AST [Catalytic activity/Vol] 14 U/L Low 15-37 [facility] Comment on above: Performed By: #### M N #### [facility] [address] [place] [address] Bilirubin [Mass/Vol] 0.8 mg/dL Normal 0.2-1.0 [facility] Comment on above: Performed By: #### M N #### [facility] [address] [place] [address] Calcium [Mass/Vol] 9.1 mg/dL Normal 8.5-10.1 [facility] Comment on above: Performed By: #### M N #### [facility] [address] [place] [address] Chloride [Moles/Vol] 107 mmol/L Normal 98-107 [facility] Comment on above: Performed By: #### M N #### [facility] [address] [place] [address] CO2 [Moles/Vol] 28.0 mmol/L Normal 21-32 [facility] Comment on above: Performed By: #### M N #### [facility] [address] [place] [address] Creatinine [Mass/Vol] 0.90 mg/dL Normal 0.55-1.02 [facility] Comment on above: Performed By: #### M N #### [facility] [address] [place] [address] GFR > 60.0 [facility] Comment on above: Performed By: #### M N #### [facility] [address] [place] [address] GFR AM > 60.0 Normal [facility] Comment on above: Result Comment: THE NORMAL LEVEL OF GFR VARIES ACCORDING TO AGE, SEX, AND BODY SIZE. A GFR LEVEL OF LESS THAN 60 ML/MIN REPRESENTS LOSS OF THE ADULT LEVEL OF NORMAL KIDNEY FUNCTION. Performed By: #### M N #### [address] [place] [address] Globulin (S) [Mass/Vol] 4.0 g/dL Normal 2.5-4.6 [facility] Comment on above: Performed By: #### M N #### [address] [place] [address] Glucose [Mass/Vol] 118 mg/dL High 70-100 [facility] Comment on above: Performed By: #### M N #### [address] [place] [address] Potassium [Moles/Vol] 3.3 mmol/L Low 3.5-5.1 [facility] Comment on above: Performed By: #### M N #### [address] [place] [address] Protein [Mass/Vol] 7.5 g/dL Normal 6.0-8.3 [facility] Comment on above: Performed By: #### M N #### [address] [place] [address] Sodium [Moles/Vol] 142 mmol/L Normal 136-145 [facility] Comment on above: Performed By: #### M N #### [address] [place] [address] Urea nitrogen [Mass/Vol] 17.0 mg/dL Normal 7-18 [facility] Comment on above: Performed By: #### M N #### [address] [place] [address] DIFFERENTIALon 11-13-2021 Band form neutrophils/100 WBC (Bld) 1 % Normal 0-10 [facility] Comment on above: Performed By: #### D IFF (MANUAL), CBC ####[address] [place] [address] IMMATURE GRANS NONE SEEN Normal [facility] Comment on above: Performed By: #### D IFF (MANUAL), CBC ####[address] [place] [address] Lymphocytes/100 WBC (Bld) 34 % Normal 16-48 [facility] Comment on above: Performed By: #### D IFF (MANUAL), CBC ####[id number] [facility] [place] [address] Metamyelocytes/100 WBC (Bld) 1 % Normal 0-1 [facility] Comment on above: Performed By: #### D IFF (MANUAL), CBC ####[id number] [place] [address] Monocytes/100 WBC (Bld) 3 % Normal 3-9 [facility] Comment on above: Performed By: #### D IFF (MANUAL), CBC ####[id number] [facility] [place] [address] Neutrophils/100 WBC (Bld) 61 % Normal 42-80 [facility] Comment on above: Performed By: #### D IFF (MANUAL), CBC ####[id number] [facility] [place] [address] PLATELET ESTIMATE NORMAL Normal [facility] Comment on above: Performed By: #### D IFF (MANUAL), CBC ####[id number] [facility] [place] [address] RBC morphology finding Nom (Bld) ESSENTIALLY NORMAL Normal [facility] Comment on above: Performed By: #### D IFF (MANUAL), CBC ####[id number] [facility] [place] [address] TOTAL CELLS COUNTED 100 #CELLS Normal [facility] Comment on above: Performed By: #### D IFF (MANUAL), CBC ####[id number] [facility] [place] [address] XR Chest PA and Lateralon IMPRESSION: Peribronchial cuffing suggestive of airways inflammation with multifocal areas of pleural-parenchymal stranding suggesting interstitial infiltrates. [employer] Director: PSCB Transcribe Date/Time: Nov 03 2021 1:15P Dictated by : MARYCHUY VUONG MD This examination was interpreted and the report reviewed and electronically signed by: MARYCHUY VUONG MD on Nov 03 2021 1:17PM [facility] DIVISION OF RADIOLOGY * * *Final Report* * * DATE OF EXAM: Nov 03 2021 1:13PM WOX 5291 - XR CHEST 2V FRONTAL/LAT / PROCEDURE REASON: multiple diagnoses * * * * Physician Interpretation * * * * EXAMINATION: CHEST RADIOGRAPH (2 VIEW FRONTAL & LATERAL) CLINICAL HISTORY: Cough. COVID-19 MQ: XC2_6 EXAM DATE/TIME: 11/03/2021 1:13 PM COMPARISON: There are no prior relevant examinations available for comparison within the Imaging Archives. RESULT: Lines, tubes, and devices: None. Lungs and pleura: Mild interstitial prominence especially within the mid and lower lung zones with some mild central bronchial wall thickening suggesting airways inflammation. Scattered areas of interstitial stranding throughout the mid and lower lungs suggest interstitial infiltrates. There is no focal consolidation. There is no layering pleural fluid or vascular redistribution to suggest pulmonary edema Cardiomediastinal silhouette: Normal cardiomediastinal silhouette. Bones and soft tissues: The bony structures are intact DIVISION OF RADIOLOGY Provider, [facility] - 11/03/2021 * * *Final Report* * * DATE OF EXAM: Nov 03 2021 1:13PM WOX 5291 - XR CHEST 2V FRONTAL/LAT / PROCEDURE REASON: multiple diagnoses * * * * Physician Interpretation * * * * EXAMINATION: CHEST RADIOGRAPH (2 VIEW FRONTAL & LATERAL) CLINICAL HISTORY: Cough. COVID-19 MQ: XC2_6 EXAM DATE/TIME: 11/03/2021 1:13 PM COMPARISON: There are no prior relevant examinations available for comparison within the Imaging Archives. RESULT: Lines, tubes, and devices: None. Lungs and pleura: Mild interstitial prominence especially within the mid and lower lung zones with some mild central bronchial wall thickening suggesting airways inflammation. Scattered areas of interstitial stranding throughout the mid and lower lungs suggest interstitial infiltrates. There is no focal consolidation. There is no layering pleural fluid or vascular redistribution to suggest pulmonary edema Cardiomediastinal silhouette: Normal cardiomediastinal silhouette. Bones and soft tissues: The bony structures are intact IMPRESSION IMPRESSION: Peribronchial cuffing suggestive of airways inflammation with multifocal areas of pleural-parenchymal stranding suggesting interstitial infiltrates. [employer] Director: ADAM Transcribe Date/Time: Nov 03 2021 1:15P Dictated by : MARYCHUY VUONG MD This examination was interpreted and the report reviewed and electronically signed by: MARYCHUY VUONG MD on Nov 03 2021 1:17PM EST Radiology Study observation (narrative) XR Chest PA and LateralOrder ed By: [facility] Provider on 11-03-2021 25-hydroxyvitamin D [Mass/Vo l]on 02-14-2021 vit D 25 oh NG/mL [facility] (Lab) CBC W Auto Differential pane l (Bld)on 02-14-2021 bas0 % % [facility] (Lab) Basophils (Bld) [#/Vol] 0.1 10*3/uL [facility] (Lab) Eosinophils (Bld) [#/Vol] 0.2 10*3/uL [facility] (Lab) Eosinophils/100 WBC (Bld) 2.7 % [facility] (Lab) gran # K/uL [facility] (Lab) gran % % [facility] (Lab) Hematocrit (Bld) [Volume fraction] 39.0 % [facility] (Lab) Hemoglobin (Bld) [Mass/Vol] 13.7 g/dL [facility] (Lab) Lymphocytes (Bld) [#/Vol] 2.0 10*3/uL [facility] (Lab) Lymphocytes/100 WBC (Bld) 25.2 % [facility] (Lab) MCH (RBC) [Entitic mass] 35.2 pg [facility] (Lab) MCV (RBC) [Entitic vol] 86.9 fL [facility] (Lab) mean corpuscular HGB pg [facility] (Lab) Monocytes (Bld) [#/Vol] 0.6 10*3/uL [facility] (Lab) Monocytes/100 WBC (Bld) 7.0 % [facility] (Lab) Platelet mean volume (Bld) [Entitic vol] 8.5 fL [facility] (Lab) Platelets (Bld) [#/Vol] 213 10*3/uL [facility] (Lab) RBC (Bld) [#/Vol] 4.49 10*6/uL [facility] (Lab) red cell distri width % [facility] (Lab) WBC (Bld) [#/Vol] 8.1 10*3/uL [facility] (Lab) Comprehensive metabolic 2000 panelon 02-14-2021 Albumin [Mass/Vol] 3.8 g/dL [facility] (Lab) Albumin/Globulin [Mass ratio] 1.2 {ratio} [facility] (Lab) ALP [Catalytic activity/Vol] 108 U/L [facility] (Lab) ALT [Catalytic activity/Vol] 21 U/L [facility] (Lab) Anion gap [Moles/Vol] 7.4 mmol/L Low [facility] (Lab) Bilirubin [Mass/Vol] 0.9 mg/dL [facility] (Lab) Calcium [Mass/Vol] 8.5 mg/dL [facility] (Lab) Chloride [Moles/Vol] 108 mmol/L High [facility] (Lab) CO2 [Moles/Vol] 28.0 mmol/L [facility] (Lab) Creatinine [Mass/Vol] 0.80 mg/dL [facility] (Lab) GFR > 60.0 [facility] (Lab) GFR AM > 60.0 [facility] (Lab) globulin g/dL [facility] (Lab) Glucose [Mass/Vol] 99 mg/dL [facility] (Lab) Potassium [Moles/Vol] 3.5 mmol/L [facility] (Lab) Protein [Mass/Vol] 7.1 g/dL [facility] (Lab) SGOT/AST U/L [facility] (Lab) Sodium [Moles/Vol] 140 mmol/L [facility] (Lab) Urea nitrogen [Mass/Vol] 19.0 mg/dL High [facility] (Lab) Free T4 [Mass/Vol]on 021 thyroxine (T4) free NG/dL [facility] (Lab) HbA1c HPLC (Bld) [Mass fract ion]on 02-14-2021 est avg glucose 88 [facility] (Lab) HbA1c (Bld) [Mass fraction] 4.7 % [facility] (Lab) Laboratory - Chemistry and C hemistry - challengeon 02-14-2021 Cholesterol [Mass/Vol] 125 mg/dL [facility] (Lab) Cholesterol in HDL [Mass/Vol] 44 mg/dL [facility] (Lab) Cholesterol in LDL [Mass/Vol] 68 mg/dL [facility] (Lab) Cholesterol.total/Cho lesterol in HDL [Mass ratio] 2.9 {ratio} [facility] (Lab) Triglyceride [Mass/Vol] 64 mg/dL [facility] (Lab) No Panel Informationon 02-14 VLDL calculation mg/dL [facility] (Lab) TSH Qnon 02-14-2021 thyroid stim hormone uIU/mL High [facility] (Lab) No Panel Information NEGATED: Highlighted row [facility] Vital Signs Date Time Vital Sign Value Performing Clinician Facility 05-26-2024 15:17-04[address] Pressure Cuff Size DR NAKUL SIERRA MD [address] [place] [address] 05-26-2024 15:17-[address] NAKUL SIERRA MD [address] [place] [address] 05-26-2024 15:17-[address] NAKUL SIERRA MD [address] [place] [address] 05-26-2024 15:17-0400 Body temperature 98.06 [degF] DR NAKUL SIERRA MD [address] [place] [address] 05-26-2024 15:17-0400 Diastolic Blood Pressure Non-Invasive 50 mm[Hg] DR NAKUL SIERRA MD [address] [place] [address] 05-26-2024 15:17-0400 Heart rate 47 /min DR NAKUL SIERRA MD [address] [place] [address] 05-26-2024 15:17-0400 Reason For Taking VItal Signs DR NAKUL SIERRA MD [address] [place] [address] 05-26-2024 15:17-0400 Respiratory rate 18 /min DR NAKUL SIERRA MD [address] [place] [address] 05-26-2024 15:17-0400 Systolic Blood Pressure Non-Invasive 106 mm[Hg] DR NAKUL SIERRA MD [address] [place] [address] 05-26-2024 12:06-0400 Heart rate 50 /min DR NAKUL SIERRA MD [address] [place] [address] 05-26-2024 12:06-0400 Respiratory rate 18 /min DR NAKUL SIERRA MD [address] [place] [address] 05-26-2024 11:26-0400 Blood Pressure Cuff Size DR NAKUL SIERRA MD [address] [place] [address] 05-26-2024 11:26-[address] NAKUL SIERRA MD [address] [place] [address] 05-26-2024 11:26-[address] NAKUL SIERRA MD [address] [place] [address] 05-26-2024 11:26-0400 Body temperature 98.24 [degF] DR NAKUL SIERRA MD [address] [place] [address] 05-26-2024 11:26-0400 Diastolic Blood Pressure Non-Invasive 38 mm[Hg] DR NAKUL SIERRA MD [address] [place] [address] 05-26-2024 11:26-0400 Heart rate 48 /min DR NAKUL SIERRA MD [address] [place] [address] 05-26-2024 11:26-0400 Reason For Taking VItal Signs DR NAKUL SIERRA MD [address] [place] [address] 05-26-2024 11:26-0400 Respiratory rate 18 /min DR NAKUL SIERRA MD [address] [place] [address] 05-26-2024 11:26-0400 Systolic Blood Pressure Non-Invasive 100 mm[Hg] DR NAKUL SIERRA MD [address] [place] [address] 05-26-2024 11:06-0400 Heart rate 54 /min DR NAKUL SIERRA MD [address] [place] [address] 05-26-2024 09:03-[address] NAKUL SIERRA MD [address] [place] [address] 05-26-2024 09:03-[address] NAKUL SIERRA MD [address] [place] [address] 05-26-2024 09:03-0400 Diastolic Blood Pressure Non-Invasive 40 mm[Hg] DR NAKUL SIERRA MD [address] [place] [address] 05-26-2024 09:03-0400 Systolic Blood Pressure Non-Invasive 109 mm[Hg] DR NAKUL SIERRA MD [address] [place] [address] 05-26-2024 05:45-0400 Mean blood pressure 69 mm[Hg] DR NAKUL SIERRA MD [address] [place] [address] 05-26-2024 03:57-0400 Body temperature 98.24 [degF] DR NAKUL SIERRA MD [address] [place] [address] 05-26-2024 03:57-0400 Reason For Taking VItal Signs DR NAKUL SIERRA MD [address] [place] [address] 05-25-2024 23:00-04[address] Cuff Size DR NAKUL SIERRA MD [address] [place] [address] 05-25-2024 14:32-0400 Mean blood pressure 65 mm[Hg] DR NAKUL SIERRA MD [address] [place] [address] 05-25-2024 11:45-0400 Heart rate 60 /min DR NAKUL SIERRA MD [address] [place] [address] 05-25-2024 06:37-0400 Body temperature 97.7 [degF] DR NAKUL SIERRA MD [address] [place] [address] 05-25-2024 04:29-0400 Body temperature 98.42 [degF] DR NAKUL SIERRA MD [address] [place] [address] 05-24-2024 18:42-0400 Mean blood pressure 70 mm[Hg] DR NAKUL SIERRA MD [address] [place] [address] 05-24-2024 11:05-0400 Heart rate 65 /min DR NAKUL SIERRA MD [address] [place] [address] 05-24-2024 04:16-0400 Body temperature 97.52 [degF] DR NAKUL SIERRA MD [address] [place] [address] 05-23-2024 11:32-0400 Body height 165.[address] NAKUL SIERRA MD [address] [place] [address] 05-23-2024 11:32-0400 Body weight [address] NAKUL SIERRA MD [facility] 05-23-2024 11:32-0400 Body weight 29.72 kg/m2 DR NAKUL SIERRA MD [facility] 04-09-2024 01:00-0400 Body height 166.37 cm Lina Zendejas [facility] 04-09-2024 01:00-0400 Body mass index (BMI) [Ratio] 29 kg/m2 Lina Zendejas [facility] 04-09-2024 01:00-0400 Body temperature 97 [degF] Lina Zendejas [facility] 04-09-2024 01:00-0400 Body weight 80.33 kg Lina Zendejas [facility] 04-09-2024 01:00-0400 Diastolic blood pressure 70 mm[Hg] Lina Zendejas [facility] 04-09-2024 01:00-0400 Heart rate 78 /min Lina Zendejas [facility] 04-09-2024 01:00-0400 SaO2% (BldA) [Mass fraction] 99 % Lina Zendejas [facility] 04-09-2024 01:00-0400 Systolic blood pressure 118 mm[Hg] Lina Zendejas [facility] 06-28-2024 01:00-0400 Body height 166.37 cm Clement Repp [facility] 03-20-2024 01:00-0400 Body mass index (BMI) [Ratio] 28.5 kg/m2 Clement Repp [facility] 03-20-2024 01:00-0400 Body temperature 97.7 [degF] Clement Repp [facility] 03-20-2024 01:00-0400 Body weight 79.02 kg Clement Repp [facility] 03-20-2024 01:00-0400 Diastolic blood pressure 60 mm[Hg] Clement Repp [facility] 03-20-2024 01:00-0400 Heart rate 63 /min Clement Repp [facility] 03-20-2024 01:00-0400 SaO2% (BldA) [Mass fraction] 98 % Clement Repp [facility] 03-20-2024 01:00-0400 Systolic blood pressure 120 mm[Hg] Clement Repp [facility] 03-05-2024 01:00-0400 Body height 166.37 cm Taylor Kaplan [facility] 03-05-2024 01:00-0400 Body mass index (BMI) [Ratio] 28.4 kg/m2 Taylor Kaplan [facility] 03-05-2024 01:00-0400 Body temperature 97.2 [degF] Taylor Kaplan [facility] 03-05-2024 01:00-0400 Body weight 78.47 kg Taylor Kaplan [facility] 03-05-2024 01:00-0400 Diastolic blood pressure 60 mm[Hg] Taylor Kaplan [facility] 03-05-2024 01:00-0400 Heart rate 73 /min Taylor Kaplan [facility] 03-05-2024 01:00-0400 SaO2% (BldA) [Mass fraction] 96 % Taylor Kaplan [facility] 03-05-2024 01:00-0400 Systolic blood pressure 124 mm[Hg] Taylor Kaplan [facility] 12-05-2023 01:00-0400 Body height 166.37 cm Lina Carreonmahsa [facility] 12-05-2023 01:00-0400 Body mass index (BMI) [Ratio] 28.4 kg/m2 Lina Carreonmahsa [facility] 12-05-2023 01:00-0400 Body temperature 98.4 [degF] Lina Zendejas [facility] 12-05-2023 01:00-0400 Body weight 78.56 kg Lina Zendejas [facility] 12-05-2023 01:00-0400 Diastolic blood pressure 66 mm[Hg] Lina Zendejas [facility] 12-05-2023 01:00-0400 Heart rate 72 /min Lina Zendejas [facility] 12-05-2023 01:00-0400 SaO2% (BldA) [Mass fraction] 94 % Lina Zendejas [facility] 12-05-2023 01:00-0400 Systolic blood pressure 110 mm[Hg] Lina Zendejas [facility] 11-14-2023 00:00-0500 Body height 166.37 cm Clement Velez [facility] 11-14-2023 00:00-0500 Body mass index (BMI) [Ratio] 28.2 kg/m2 Clement Velez [facility] 11-14-2023 00:00-0500 Body temperature 96.1 [degF] Clement Velez [facility] 11-14-2023 00:00-0500 Body weight 77.97 kg Clement Repp [facility] 11-14-2023 00:00-0500 Diastolic blood pressure 62 mm[Hg] Clement Repp [facility] 11-14-2023 00:00-0500 Heart rate 80 /min Clement Repp [facility] 11-14-2023 00:00-0500 SaO2% (BldA) [Mass fraction] 99 % Clement Repp [facility] 11-14-2023 00:00-0500 Systolic blood pressure 104 mm[Hg] Clement Repp [facility] 10-17-2023 00:00-0500 Body height 166.37 cm Clement Repp [facility] 10-17-2023 00:00-0500 Body mass index (BMI) [Ratio] 27.2 kg/m2 Clement Repp [facility] 10-17-2023 00:00-0500 Body temperature 97.1 [degF] Clement Repp [facility] 10-17-2023 00:00-0500 Body weight 75.39 kg Clement Repp [facility] 10-17-2023 00:00-0500 Diastolic blood pressure 72 mm[Hg] Clement Repp [facility] 10-17-2023 00:00-0500 Heart rate 106 /min Clement Repp [facility] 10-17-2023 00:00-0500 SaO2% (BldA) [Mass fraction] 97 % Clement Repp [facility] 10-17-2023 00:00-0500 Systolic blood pressure 118 mm[Hg] Clement Repp [facility] 08-26-2023 17:14-0500 Body temperature 102.4 [degF] Phil Pendletawny REGULATOR INSPECTOR.[employer]ER [employer] ASSEMBLER Work Phone: 08-26-2023 17:14-0500 Body weight 77.11 kg Phil Pendcamilla REGULATOR INSPECTOR.RUBBER [employer] ASSEMBLER Work Phone: 08-26-2023 17:14-0500 Diastolic blood pressure 72 mm[Hg] Phil Pendlebury REGULATOR INSPECTOR.RUBBER [employer]AMP ASSEMBLER Work Phone: 08-26-2023 17:14-0500 Heart rate 96 /min Phil Pendlebury REGULATOR INSPECTOR.RUBBER STAMP ASSEMBLER Work Phone: 08-26-2023 17:14-0500 Respiratory rate 18 /min Phil Pendletawny REGULATOR INSPECTOR.RUBBER [employer]AMP ASSEMBLER Work Phone: 08-26-2023 17:14-0500 SaO2% (BldA) [Mass fraction] 95 % Phil Márquez REGULATOR INSPECTOR.RUBBER STAMP ASSEMBLER Work Phone: 08-26-2023 17:14-0500 Systolic blood pressure 110 mm[Hg] Phil Pendlebury REGULATOR INSPECTOR.RUBBER STAMP [employer] Work Phone: 08-22-2023 00:00-0500 Body height 166.37 cm Lina Zendejas [facility] 08-22-2023 00:00-0500 Body mass index (BMI) [Ratio] 28.9 kg/m2 Lina Zendejas [facility] 08-22-2023 00:00-0500 Body temperature 96.3 [degF] Lina Zendejas [facility] 08-22-2023 00:00-0500 Body weight 79.92 kg Lina Zendejas [facility] 08-22-2023 00:00-0500 Diastolic blood pressure 66 mm[Hg] Lina Zendejas [facility] 08-22-2023 00:00-0500 Heart rate 66 /min Lina Zendejas [facility] 08-22-2023 00:00-0500 SaO2% (BldA) [Mass fraction] 98 % Lina Zendejas [facility] 08-22-2023 00:00-0500 Systolic blood pressure 118 mm[Hg] Lina Zendejas [facility] 06-13-2023 01:00-0400 Body height 166.37 cm Lina Zendejas [facility] 06-13-2023 01:00-0400 Body mass index (BMI) [Ratio] 28.3 kg/m2 Lina Zendejas [facility] 06-13-2023 01:00-0400 Body temperature 96.6 [degF] Lina Zendejas [facility] 06-13-2023 01:00-0400 Body weight 78.2 kg Lina Zendejas [facility] 06-13-2023 01:00-0400 Diastolic blood pressure 62 mm[Hg] Lina Zendejas [facility] 06-13-2023 01:00-0400 Heart rate 67 /min Lina Zendejas [facility] 06-13-2023 01:00-0400 SaO2% (BldA) [Mass fraction] 99 % Lina Zendejas [facility] 06-13-2023 01:00-0400 Systolic blood pressure 106 mm[Hg] Lina Zendejas [facility] 06-11-2023 11:59-0400 Diastolic Blood Pressure Non-Invasive [address] JAVIER CHEN MD [facility] 06-11-2023 11:59-0400 Heart rate 67 /min DR JAVIER CHEN MD [facility] 06-11-2023 11:59-0400 Respiratory rate 16 /min DR JAVIER CHEN MD [facility] 06-11-2023 11:59-0400 Systolic Blood Pressure Non-Invasive [address] JAVIER CHEN MD [facility] 06-11-2023 11:32-0400 Diastolic Blood Pressure Non-Invasive [address] JAVIER CHEN MD [facility] 06-11-2023 11:32-0400 Heart rate 74 /min DR JAVIER CHEN MD [facility] 06-11-2023 11:32-0400 Respiratory rate 14 /min DR JAVIER CHEN MD [facility] 06-11-2023 11:32-0400 Systolic Blood Pressure Non-Invasive [address] JAVIER CHEN MD [facility] 06-11-2023 10:17-0400 Diastolic Blood Pressure Non-Invasive [address] JAVIER CHEN MD [facility] 06-11-2023 10:17-0400 Heart rate 81 /min DR JAVIER CHEN MD [facility] 06-11-2023 10:17-0400 Respiratory rate 14 /min DR JAVIER CHEN MD [facility] 06-11-2023 10:17-0400 Systolic Blood Pressure Non-Invasive [address] JAVIER CHEN MD [facility] 06-11-2023 10:12-0400 Body weight [address] JAVIER CHEN MD [facility] 06-11-2023 10:12-0400 Heart rate 127 /min DR JAVIER CHEN MD [facility] 09-15-2023 06:31-0400 Body height 165.1 cm HANK MCMULLEN MD [address] [place] [address] 06-07-2023 06:31-0400 Body temperature 97.88 [degF] HANK MCMULLEN MD [facility] 06-07-2023 06:31-0400 Body weight 77.9 kg HANK MCMULLEN MD [address] [place] [address] 06-07-2023 06:31-0400 Diastolic Blood Pressure Non-Invasive 61 1 HANK MCMULLEN MD [address] [place] [address] 06-07-2023 06:31-0400 Heart rate 69 /min HANK MCMULLEN MD [address] [place] [address] 06-07-2023 06:31-0400 Respiratory rate 18 /min HANK MCMULLEN MD [address] [place] [address] 06-07-2023 06:31-0400 Systolic Blood Pressure Non-Invasive 106 1 HANK MCMULLEN MD [address] [place] [address] 05-31-2023 22:09-0400 Diastolic Blood Pressure Non-Invasive 66 1 SHIRA JEAN MD [address] [place] [address] 05-31-2023 22:09-0400 Heart rate 68 /min SHIRA JEAN MD [address] [place] [address] 05-31-2023 22:09-0400 Respiratory rate 18 /min SHIRA JEAN MD [address] [place] [address] 05-31-2023 22:09-0400 Systolic Blood Pressure Non-Invasive 120 1 SHIRA JEAN MD [address] [place] [address] 05-31-2023 19:02-0400 Body weight 77.3 kg SHIRA JEAN MD [facility] 05-31-2023 18:52-0400 Body temperature 97.52 [degF] SHIRA JEAN MD [facility] 05-31-2023 18:52-0400 Body weight 77.3 kg SHIRA JEAN MD [facility] 05-31-2023 18:52-0400 Diastolic Blood Pressure Non-Invasive 70 1 SHIRA JEAN MD [facility] 05-31-2023 18:52-0400 Heart rate 65 /min SHIRA JEAN MD [facility] 05-31-2023 18:52-0400 Respiratory rate 18 /min SHIRA JEAN MD [facility] 05-31-2023 18:52-0400 Systolic Blood Pressure Non-Invasive 121 1 SHIRA JEAN MD [facility] 05-06-2023 15:15-0400 Body temperature 97.7 [degF] NATALIA FORD MD [facility] 05-06-2023 15:15-0400 Diastolic Blood Pressure Non-Invasive 51 1 NATALIA FORD MD [facility] 05-06-2023 15:15-0400 Heart rate 64 /min NATALIA FORD MD [facility] 05-06-2023 15:15-0400 Mean blood pressure 65 mm[Hg] NATALIA FORD MD [facility] 05-06-2023 15:15-0400 Reason For Taking VItal Signs NATALIA FORD MD [facility] 05-06-2023 15:15-0400 Respiratory rate 16 /min NATALIA FORD MD [facility] 05-06-2023 15:15-0400 Systolic Blood Pressure Non-Invasive 101 1 NATALIA FORD MD [facility] 05-06-2023 12:15-0400 Heart rate 66 /min NATALIA FORD MD [facility] 05-06-2023 11:35-0400 Body temperature 97.52 [degF] NATALIA FORD MD [facility] 05-06-2023 11:35-0400 Diastolic Blood Pressure Non-Invasive 52 1 NATALIA FORD MD [address] [place] [address] 05-06-2023 11:35-0400 Heart rate 60 /min NATALIA FORD MD [address] [place] [address] 05-06-2023 11:35-0400 Mean blood pressure 68 mm[Hg] NATALIA FORD MD [address] 05-06-2023 11:35-0400 Reason For Taking VItal Signs NATALIA FORD MD [address] 05-06-2023 11:35-0400 Respiratory rate 16 /min NATALIA FORD MD [address] [place] [address] 05-06-2023 11:35-0400 Systolic Blood Pressure Non-Invasive 107 1 NATALIA FORD MD [address] [place] [address] 05-06-2023 08:42-0400 Body temperature 97.88 [degF] NATALIA FORD MD [address] 05-06-2023 08:42-0400 Diastolic Blood Pressure Non-Invasive 45 1 NATALIA FORD MD [address] [place] [address] 05-06-2023 08:42-0400 Mean blood pressure 63 mm[Hg] NATALIA FORD MD [address] 05-06-2023 08:42-0400 Reason For Taking VItal Signs NATALIA FORD MD [address] 05-06-2023 08:42-0400 Respiratory rate 16 /min NATALIA FORD MD [address] [place] [address] 05-06-2023 08:42-0400 Systolic Blood Pressure Non-Invasive 103 1 NATALIA FORD MD [address] 05-05-2023 08:54-0400 Body weight 79.6 kg NATALIA FORD MD [address] 05-05-2023 00:32-0400 Heart rate 126 /min NATALIA FORD MD [facility] 05-04-2023 20:27-0400 Heart rate 120 /min NATALIA FORD MD [facility] 05-03-2023 14:31-0400 Body temperature 96.8 [degF] NATALIA FORD MD [facility] 05-03-2023 14:30-0400 Respiratory Rate - Anes 18 br/min NATALIA FORD MD [facility] 05-03-2023 14:25-0400 Respiratory Rate - Anes 12 br/min NATALIA FORD MD [facility] 05-03-2023 14:20-0400 Respiratory Rate - Anes 0 br/min NATALIA FORD MD [facility] 05-02-2023 19:55-0400 Blood Pressure Cuff Size NATALIA FORD MD [facility] 05-02-2023 19:55-0400 Blood Pressure Location NATALIA FORD MD [facility] 05-02-2023 19:55-0400 Blood Pressure Method NATALIA FORD MD [facility] 05-02-2023 15:55-0400 Blood Pressure Cuff Size NATALIA FORD MD [facility] 05-02-2023 15:55-0400 Blood Pressure Location NATALIA FORD MD [facility] 05-02-2023 15:55-0400 Blood Pressure Method NATALIA FORD MD [facility] 05-02-2023 11:17-0400 Blood Pressure Cuff Size NATALIA FORD MD [facility] 05-02-2023 11:17-0400 Blood Pressure Location NATALIA FORD MD [address] [place] [address] 05-02-2023 11:17-0400 Blood Pressure Method NATALIA FORD MD [address] [place] [address] 05-01-2023 18:48-0400 Heart rate 122 /min NATALIA FORD MD [address] [place] [address] 05-01-2023 07:46-0400 Diastolic blood pressure 47 mm[Hg] NATALIA FORD MD [address] 05-01-2023 07:46-0400 Mean blood pressure 64 mm[Hg] NATALIA FORD MD [address] 05-01-2023 07:46-0400 Systolic blood pressure 94 mm[Hg] NATALIA FORD MD [address] 05-01-2023 07:35-0400 Diastolic blood pressure 44 mm[Hg] NATALIA FORD MD [address] 05-01-2023 07:35-0400 Mean blood pressure 58 mm[Hg] NATALIA FORD MD [address] 05-01-2023 07:35-0400 Systolic blood pressure 83 mm[Hg] NATALIA FORD MD [address] [place] [address] 05-01-2023 07:15-0400 Diastolic blood pressure 47 mm[Hg] NATALIA FORD MD [address] 05-01-2023 07:15-0400 Mean blood pressure 63 mm[Hg] NATALIA FORD MD [address] 05-01-2023 07:15-0400 Systolic blood pressure 90 mm[Hg] NATALIA FORD MD [address] [place] [address] 04-30-2023 09:50-0400 Body temperature 95.58 [degF] NATALIA FORD MD [address] [place] [address] 04-30-2023 09:45-0400 Body temperature 95.54 [degF] NATALIA FORD MD [address] 04-30-2023 09:40-0400 Body temperature 95.52 [degF] NATALIA FORD MD [facility] 04-30-2023 05:47-0400 Body height 165 cm NATALIA FORD MD [facility] 04-30-2023 05:47-0400 Body weight 78.9 kg NATALIA FORD MD [facility] 04-30-2023 05:47-0400 Heart rate 91 /min NATALIA FORD MD [facility] 03-14-2023 01:00-0400 Body height 166.37 cm Lina Zendejas [facility] 03-14-2023 01:00-0400 Body mass index (BMI) [Ratio] 28.7 kg/m2 Lina Zendejas [facility] 03-14-2023 01:00-0400 Body temperature 96.6 [degF] Lina Zendejas [facility] 03-14-2023 01:00-0400 Body weight 79.38 kg Lina Zendejas [facility] 03-14-2023 01:00-0400 Diastolic blood pressure 66 mm[Hg] Lina Zendejas [facility] 03-14-2023 01:00-0400 Heart rate 73 /min Lina Zendejas [facility] 03-14-2023 01:00-0400 SaO2% (BldA) [Mass fraction] 97 % Lina Zendejas [facility] 03-14-2023 01:00-0400 Systolic blood pressure 114 mm[Hg] Lina Zendejas [facility] 01-31-2023 10:14-0400 Diastolic Blood Pressure Non-Invasive 78 1 DENZEL AMNE MD [facility] 01-31-2023 10:14-0400 Heart rate 98 /min DENZEL MANE MD [facility] 01-31-2023 10:14-0400 Respiratory rate 15 /min DENZEL MANE MD [facility] 01-31-2023 10:14-0400 Systolic Blood Pressure Non-Invasive 120 1 DENZEL MANE MD [facility] 01-31-2023 09:48-0400 Heart rate 104 /min DENZEL MANE MD [facility] 01-31-2023 09:44-0400 Diastolic Blood Pressure Non-Invasive 88 1 DENZEL MANE MD [facility] 01-31-2023 09:44-0400 Heart rate 95 /min DENZEL MANE MD [facility] 01-31-2023 09:44-0400 Respiratory rate 15 /min DENZEL MANE MD [facility] 01-31-2023 09:44-0400 Systolic Blood Pressure Non-Invasive 117 1 DENZEL MANE MD [facility] 01-31-2023 09:06-0400 Diastolic Blood Pressure Non-Invasive 74 1 DENZEL MANE MD [facility] 01-31-2023 09:06-0400 Respiratory rate 14 /min DENZEL MANE MD [facility] 01-31-2023 09:06-0400 Systolic Blood Pressure Non-Invasive 124 1 DENZEL MANE MD [facility] 01-31-2023 08:36-0400 Body height 167.6 cm DENZEL MANE MD [facility] 01-31-2023 08:36-0400 Body temperature 97.7 [degF] DENZEL MANE MD [facility] 01-31-2023 08:36-0400 Body weight 79.7 kg DENZEL MANE MD [facility] 01-31-2023 08:36-0400 Heart rate 136 /min DENZEL MANE MD [facility] 01-29-2023 11:47-0400 Diastolic Blood Pressure Non-Invasive 73 1 IVONNE DUQUE MD [facility] 01-29-2023 11:47-0400 Heart rate 82 /min IVONNE DUQUE MD [facility] 01-29-2023 11:47-0400 Respiratory rate 12 /min IVONNE DUQUE MD [facility] 01-29-2023 11:47-0400 Systolic Blood Pressure Non-Invasive 116 1 IVONNE DUQUE MD [facility] 01-29-2023 09:27-0400 Blood Pressure Cuff Size IVONNE DUQUE MD [facility] 01-29-2023 09:27-0400 Blood Pressure Location IVONNE DUQUE MD [facility] 01-29-2023 09:27-0400 Blood Pressure Method IVONNE DUQUE MD [facility] 01-29-2023 09:27-0400 Body height 167.6 cm IVONNE DUQUE MD [facility] 01-29-2023 09:27-0400 Body temperature 97.52 [degF] IVONNE DUQUE MD [facility] 01-29-2023 09:27-0400 Body weight 79.1 kg IVONNE DUQUE MD [facility] 01-29-2023 09:27-0400 Diastolic Blood Pressure Non-Invasive 66 1 IVONNE DUQUE MD [facility] 01-29-2023 09:27-0400 Heart rate 100 /min IVONNE DUQUE MD [facility] 01-29-2023 09:27-0400 Respiratory rate 18 /min IVONNE DUQUE MD [facility] 01-29-2023 09:27-0400 Systolic Blood Pressure Non-Invasive 128 1 IVONNE DUQUE MD [facility] 10-13-2022 15:50-0500 Diastolic Blood Pressure Non-Invasive [address] DEANNE DUNCAN MD [facility] 10-13-2022 15:50-0500 Heart rate 91 /min DR DEANNE DUNCAN MD [address] [place] [address] 10-13-2022 15:50-0500 Respiratory rate 18 /min DR DEANNE DUNCAN MD [facility] 10-13-2022 15:50-0500 Systolic Blood Pressure Non-Invasive [address] DEANNE DUNCAN MD [address] [place] [address] 10-13-2022 13:25-0500 Diastolic Blood Pressure Non-Invasive [address] DEANNE DUNCAN MD [address] [place] [address] 10-13-2022 13:25-0500 Heart rate 91 /min DR DEANNE DUNCAN MD [address] [place] [address] 10-13-2022 13:25-0500 Respiratory rate 18 /min DR DEANNE DUNCAN MD [address] 10-13-2022 13:25-0500 Systolic Blood Pressure Non-Invasive [address] DEANNE DUNCAN MD [address] [place] [address] 10-13-2022 12:15-0500 Diastolic Blood Pressure Non-Invasive [address] DEANNE DUNCAN MD [address] [place] [address] 10-13-2022 12:15-0500 Heart rate 90 /min DR DEANNE DUNCAN MD [address] [place] [address] 10-13-2022 12:15-0500 Respiratory rate 18 /min DR DEANNE DUNCAN MD [address] [place] [address] 10-13-2022 12:15-0500 Systolic Blood Pressure Non-Invasive [address] DEANNE DUNCAN MD [address] [place] [address] 10-13-2022 11:30-0500 Heart rate 115 /min DR DEANNE DUNCAN MD [facility] 10-13-2022 10:04-0500 Body temperature 97.52 [degF] DR DEANNE DUNCAN MD [address] [place] [address] 10-13-2022 10:04-0500 Body weight 79.[address] DEANNE DUNCAN MD [facility] 10-13-2022 10:04-0500 Heart rate 133 /min DR DEANNE DUNCAN MD [facility] 10-11-2022 11:54-0500 Heart rate 72 /min MACI HARDY MD [facility] 10-11-2022 11:35-0500 Blood Pressure Cuff Size MACI HARDY MD [address] 10-11-2022 11:35-0500 Blood Pressure Location MACI HARDY MD [address] [place] [address] 10-11-2022 11:35-0500 Blood Pressure Method MACI HARDY MD [address] 10-11-2022 11:35-0500 Body temperature 98.06 [degF] MACI HARDY MD [address] 10-11-2022 11:35-0500 Diastolic Blood Pressure Non-Invasive 53 1 MACI HARDY MD [address] 10-11-2022 11:35-0500 Heart rate 65 /min MACI HARDY MD [address] [place] [address] 10-11-2022 11:35-0500 Reason For Taking VItal Signs MACI HARDY MD [address] 10-11-2022 11:35-0500 Respiratory rate 16 /min MACI HARDY MD [facility] 10-11-2022 11:35-0500 Systolic Blood Pressure Non-Invasive 104 1 MACI HARDY MD [address] [place] [address] 10-11-2022 10:15-0500 Body temperature 98.06 [degF] MACI HARDY MD [address] 10-11-2022 10:15-0500 Diastolic Blood Pressure Non-Invasive 66 1 MACI HARDY MD [address] [place] [address] 10-11-2022 10:15-0500 Heart rate 81 /min MACI HARDY MD [address] [place] [address] 10-11-2022 10:15-0500 Reason For Taking VItal Signs MACI HARDY MD [address] [place] [address] 10-11-2022 10:15-0500 Respiratory rate 15 /min MACI HARDY MD [address] [place] [address] 10-11-2022 10:15-0500 Systolic Blood Pressure Non-Invasive 102 1 MACI HARDY MD [address] [place] [address] 10-11-2022 08:36-0500 Heart rate 79 /min MACI HARDY MD [address] [place] [address] 10-11-2022 08:31-0500 Diastolic Blood Pressure Non-Invasive 64 1 MACI HARDY MD [address] [place] [address] 10-11-2022 08:31-0500 Heart rate 79 /min MACI HARDY MD [address] [place] [address] 10-11-2022 08:31-0500 Systolic Blood Pressure Non-Invasive 110 1 MACI HARDY MD [address] [place] [address] 10-11-2022 07:19-0500 Body temperature 98.24 [degF] MACI HARDY MD [address] [place] [address] 10-11-2022 07:19-0500 Reason For Taking VItal Signs MACI HARDY MD [address] [place] [address] 10-11-2022 07:19-0500 Respiratory rate 16 /min MACI HARDY MD [address] [place] [address] 10-10-2022 19:51-0500 Blood Pressure Cuff Size MACI HARDY MD [address] [place] [address] 10-10-2022 19:51-0500 Blood Pressure Location MACI HARDY MD [address] [place] [address] 10-10-2022 19:51-0500 Blood Pressure Method MACI HARDY MD [address] [place] [address] 10-10-2022 16:20-0500 Blood Pressure Cuff Size MACI HARDY MD [address] [place] [address] 10-10-2022 16:20-0500 Blood Pressure Location MACI HARDY MD [address] [place] [address] 10-10-2022 16:20-0500 Blood Pressure Method MACI HARDY MD [address] [place] [address] 10-10-2022 09:46-0500 Heart rate 86 /min MACI HARDY MD [address] [place] [address] 10-10-2022 08:19-0500 Mean blood pressure 72 mm[Hg] MACI HARDY MD [address] [place] [address] 10-10-2022 04:10-0500 Mean blood pressure 68 mm[Hg] MACI HARDY MD [address] [place] [address] 10-09-2022 23:37-0500 Mean blood pressure 70 mm[Hg] MACI HARDY MD [address] [place] [address] 10-09-2022 09:44-0500 Body temperature 97.16 [degF] MACI HARDY MD [address] [place] [address] 10-08-2022 08:33-0500 Body height 167.6 cm MACI HARDY MD [address] [place] [address] 10-08-2022 08:33-0500 Body weight 80.8 kg MACI HARDY MD [address] [place] [address] 10-08-2022 08:33-0500 Body weight 28.76 kg/m2 MACI HARDY MD [address] [place] [address] 09-14-2022 14:08-0500 Diastolic Blood Pressure Non-Invasive 60 1 GIOVANNA FELICIANO MD [address] 09-14-2022 14:08-0500 Heart rate 80 /min GIOVANNA FELICIANO MD [address] [place] [address] 09-14-2022 14:08-0500 Respiratory rate 14 /min GIOVANNA FELICIANO MD [address] [place] [address] 09-14-2022 14:08-0500 Systolic Blood Pressure Non-Invasive 114 1 GIOVANNA FELICIANO MD [address] [place] [address] 09-14-2022 13:59-0500 Diastolic Blood Pressure Non-Invasive 63 1 GIOVANNA FELICIANO MD [address] [place] [address] 09-14-2022 13:59-0500 Heart rate 93 /min GIOVANNA FELICIANO MD [address] [place] [address] 09-14-2022 13:59-0500 Respiratory rate 18 /min GIOVANNA FELICIANO MD [address] [place] [address] 09-14-2022 13:59-0500 Systolic Blood Pressure Non-Invasive 117 1 GIOVANNA FELICIANO MD [address] [place] [address] 09-14-2022 13:55-0500 Body temperature 96.62 [degF] GIOVANNA FELICIANO MD [address] [place] [address] 09-14-2022 13:55-0500 Diastolic Blood Pressure Non-Invasive 59 1 GIOVANNA FELICIANO MD [address] [place] [address] 09-14-2022 13:55-0500 Heart rate 86 /min GIOVANNA FELICIANO MD [address] [place] [address] 09-14-2022 13:55-0500 Respiratory rate 18 /min GIOVANNA FELICIANO MD [address] [place] [address] 09-14-2022 13:55-0500 Systolic Blood Pressure Non-Invasive 112 1 GIOVANNA FELICIANO MD [address] [place] [address] 09-14-2022 13:50-0500 Heart rate 93 /min GIOVANNA FELICIANO MD [address] [place] [address] 09-14-2022 11:57-0500 Blood Pressure Cuff Size GIOVANNA FELICIANO MD [address] [place] [address] 09-14-2022 11:57-0500 Blood Pressure Location GIOVANNA FELICIANO MD [address] [place] [address] 09-14-2022 11:57-0500 Blood Pressure Method GIOVANNA FELICIANO MD [address] [place] [address] 09-14-2022 11:57-0500 Body height 167 cm GIOVANNA FELICIANO MD [address] [place] [address] 09-14-2022 11:57-0500 Body temperature 97.88 [degF] GIOVANNA FELICIANO MD [address] [place] [address] 09-14-2022 11:57-0500 Body weight 79.7 kg GIOVANNA FELICIANO MD [address] [place] [address] 08-29-2022 13:35-0500 Blood Pressure Location HANK MCMULLEN MD [address] [place] [address] 08-29-2022 13:35-0500 Blood Pressure Method HANK MCMULLEN MD [address] [place] [address] 08-29-2022 13:35-0500 Diastolic Blood Pressure Non-Invasive 78 1 HANK MCMULLEN MD [address] [place] [address] 08-29-2022 13:35-0500 Heart rate 100 /min HANK MCMULLEN MD [address] [place] [address] 08-29-2022 13:35-0500 Respiratory rate 16 /min HANK MCMULLEN MD [address] [place] [address] 08-29-2022 13:35-0500 Systolic Blood Pressure Non-Invasive 106 1 HANK MCMULLEN MD [address] [place] [address] 08-29-2022 12:30-0500 Respiratory rate 16 /min HANK MCMULLEN MD [address] [place] [address] 08-29-2022 11:51-0500 Respiratory rate 16 /min HANK MCMULLEN MD [address] [place] [address] 08-29-2022 10:35-0500 Blood Pressure Location HANK MCMULLEN MD [address] [place] [address] 08-29-2022 10:35-0500 Blood Pressure Method HANK MCMULLEN MD [address] [place] [address] 08-29-2022 10:35-0500 Diastolic Blood Pressure Non-Invasive 64 1 HANK MCMULLEN MD [address] [place] [address] 08-29-2022 10:35-0500 Heart rate 98 /min HANK MCMULLEN MD [address] [place] [address] 08-29-2022 10:35-0500 Systolic Blood Pressure Non-Invasive 117 1 HANK MCMULLEN MD [address] [place] [address] 08-29-2022 10:05-0500 Blood Pressure Location HANK MCMULLEN MD [address] [place] [address] 08-29-2022 10:05-0500 Blood Pressure Method HANK MCMULLEN MD [address] [place] [address] 08-29-2022 10:05-0500 Diastolic Blood Pressure Non-Invasive 58 1 HANK MCMULLEN MD [address] [place] [address] 08-29-2022 10:05-0500 Heart rate 88 /min HANK MCMULLEN MD [address] [place] [address] 08-29-2022 10:05-0500 Systolic Blood Pressure Non-Invasive 112 1 HANK MCMULLEN MD [address] [place] [address] 08-29-2022 07:20-0500 Body height 167.6 cm HANK MCMULLEN MD [address] [place] [address] 08-29-2022 07:20-0500 Body temperature 98.24 [degF] HANK MCMULLEN MD [address] [place] [address] 08-29-2022 07:20-0500 Body weight 79.3 kg HANK MCMULLEN MD [facility] 08-29-2022 07:20-0500 Body weight 28.23 kg/m2 HANK MCMULLEN MD [facility] 08-23-2022 00:00-0500 Body height 166.37 cm Lina Zendejas [facility] 08-23-2022 00:00-0500 Body mass index (BMI) [Ratio] 29 kg/m2 Lina Zendejas [facility] 08-23-2022 00:00-0500 Body temperature 96.3 [degF] Lina Zendejas [facility] 08-23-2022 00:00-0500 Body weight 80.15 kg Lina Zendejas [facility] 08-23-2022 00:00-0500 Diastolic blood pressure 62 mm[Hg] Lina Zendejas [facility] 08-23-2022 00:00-0500 Heart rate 105 /min Lina Zendejas [facility] 08-23-2022 00:00-0500 SaO2% (BldA) [Mass fraction] 97 % Lina Zendejas [facility] 08-23-2022 00:00-0500 Systolic blood pressure 100 mm[Hg] Lian Zendejas [facility] 07-31-2022 09:04-0500 Body height 167.6 cm HANK MCMULLEN MD [address] [place] [address] 07-31-2022 09:04-0500 Body temperature 97.52 [degF] HANK MCMULLEN MD [address] [place] [address] 07-31-2022 09:04-0500 Body weight 79.3 kg HANK MCMULLEN MD [address] [place] [address] 07-31-2022 09:04-0500 Body weight 28.23 kg/m2 HANK MCMULLEN MD [address] [place] [address] 07-31-2022 09:04-0500 diastolic 80 mm[Hg] HANK MCMULLEN MD [address] [place] [address] 07-31-2022 09:04-0500 Heart rate 92 /min HANK MCMULLEN MD [address] [place] [address] 07-31-2022 09:04-0500 systolic 117 mm[Hg] HANK MCMULLEN MD [address] [place] [address] 04-12-2022 12:30-0400 Heart rate 72 /min GIOVANNA FELICIANO MD [address] [place] [address] 04-12-2022 11:20-0400 Heart rate 76 /min GIOVANNA FELICIANO MD [address] [place] [address] 04-12-2022 11:20-0400 Respiratory rate 16 /min GIOVANNA FELICIANO MD [address] [place] [address] 04-12-2022 08:42-0400 diastolic 86 mm[Hg] GIOVANNA FELICIANO MD [address] [place] [address] 04-12-2022 08:42-0400 Heart rate 82 /min GIOVANNA FELICIANO MD [address] [place] [address] 04-12-2022 08:42-0400 Respiratory rate 18 /min GIOVANNA FELICIANO MD [address] [place] [address] 04-12-2022 08:42-0400 systolic 124 mm[Hg] GIOVANNA FELICIANO MD [address] [place] [address] 04-12-2022 06:12-0400 Body height 168 cm GIOVANNA FELICIANO MD [address] [place] [address] 04-12-2022 06:12-0400 Body temperature 97.16 [degF] GIOVANNA FELICIANO MD [address] [place] [address] 04-12-2022 06:12-0400 Body weight 78.6 kg GIOVANNA FELICIANO MD [address] [place] [address] 04-12-2022 06:12-0400 Body weight 27.85 kg/m2 GIOVANNA FELICIANO MD [address] [place] [address] 04-12-2022 06:12-0400 diastolic 85 mm[Hg] GIOVANNA FELICIANO MD [address] [place] [address] 04-12-2022 06:12-0400 Respiratory rate 18 /min GIOVANNA FELICIANO MD [address] [place] [address] 04-12-2022 06:12-0400 systolic 120 mm[Hg] GIOVANNA FELICIANO MD [address] [place] [address] 03-09-2022 01:00-0400 Body height 166.37 cm Taylor Kaplan [facility] 03-09-2022 01:00-0400 Body mass index (BMI) [Ratio] 28.8 kg/m2 Taylor Kaplan [facility] 03-09-2022 01:00-0400 Body temperature 97.3 [degF] Taylor Kaplan [facility] 03-09-2022 01:00-0400 Body weight 79.83 kg Taylor Kaplan [facility] 03-09-2022 01:00-0400 Diastolic blood pressure 73 mm[Hg] Taylor Kaplan [facility] 03-09-2022 01:00-0400 Heart rate 95 /min Taylor Kaplan [facility] 03-09-2022 01:00-0400 SaO2% (BldA) [Mass fraction] 98 % Taylor Kaplan [facility] 03-09-2022 01:00-0400 Systolic blood pressure 120 mm[Hg] Taylor Kaplan [facility] 02-15-2022 01:00-0400 Body height 166.37 cm Lina Zendejas [facility] 02-15-2022 01:00-0400 Body mass index (BMI) [Ratio] 28.4 kg/m2 Lina Zendejas [facility] 02-15-2022 01:00-0400 Body temperature 96.6 [degF] Lina Zendejas [facility] 02-15-2022 01:00-0400 Body weight 78.7 kg Lina Zendejas [facility] 02-15-2022 01:00-0400 Diastolic blood pressure 60 mm[Hg] Lina Zendejas [facility] 02-15-2022 01:00-0400 Heart rate 94 /min Lina Zendejas [facility] 02-15-2022 01:00-0400 SaO2% (BldA) [Mass fraction] 99 % Lina Zendejas [facility] 02-15-2022 01:00-0400 Systolic blood pressure 102 mm[Hg] Lina Zendejas [facility] 11-13-2021 00:00-0500 Body height 166.37 cm Clement Andrews [facility] 11-13-2021 00:00-0500 Body mass index (BMI) [Ratio] 26.8 kg/m2 Clement Vungle [facility] 11-13-2021 00:00-0500 Body temperature 97.3 [degF] Clement Vunglep [facility] 11-13-2021 00:00-0500 Body weight 74.12 kg Clement Repp [facility] 11-13-2021 00:00-0500 Diastolic blood pressure 70 mm[Hg] Clement Repp [facility] 11-13-2021 00:00-0500 Heart rate 60 /min Clement Repp [facility] 11-13-2021 00:00-0500 SaO2% (BldA) [Mass fraction] 97 % Clement Velez [facility] 11-13-2021 00:00-0500 Systolic blood pressure 118 mm[Hg] Clement Repp [facility] 02-16-2021 01:00-0400 Body height 166.37 cm Lina Zendejas [facility] 02-16-2021 01:00-0400 Body mass index (BMI) [Ratio] 26.6 kg/m2 Lina Chay [facility] 02-16-2021 01:00-0400 Body temperature 97.5 [degF] Lina Zendejas [facility] 02-16-2021 01:00-0400 Body weight 73.57 kg Lina Chay [facility] 02-16-2021 01:00-0400 Diastolic blood pressure 66 mm[Hg] Lina Chay [facility] 02-16-2021 01:00-0400 Heart rate 66 /min Lina Zendejas [facility] 02-16-2021 01:00-0400 SaO2% (BldA) [Mass fraction] 98 % Lina Zendejas [facility] 02-16-2021 01:00-0400 Systolic blood pressure 128 mm[Hg] Lina Zendejas [facility] Encounters Encounter Date Encounter Type Care Provider Facility Start: 05-23-2024 End: 05-26-2024 Evaluation and management of inpatient DR NAKUL SIERRA MD [facility] Start: 04-09-2024 Lina Zendejas [facility] Start: 04-04-2024 End: 04-04-2024 ambulatory JACY BAUMAN APRN-RUBBER STAMP ASSEMBLER Facility:[facility] Start: 04-04-2024 End: 04-04-2024 Patient encounter procedure JACYCLARE BAUMAN APRN-RUBBER STAMP ASSEMBLER [facility] Start: 03-20-2024 Office outpatient vi sit 15 minutes Clement Repp [facility] Start: 03-20-2024 Clement Repp [facility] Start: 03-05-2024 Office outpatient vi sit 15 minutes Taylor Kaplan [facility] Start: 03-05-2024 Taylor Guerrero is [facility] Start: 12-05-2023 Lina Zendejas [facility] Start: 11-14-2023 Office outpatient vi sit 15 minutes Clement Repp [facility] Start: 11-14-2023 Clement Repp [facility] Start: 10-17-2023 Clement Repp [facility] Start: 08-27-2023 Telephone encounter Deisy montes PA-C Work Phone: [facility] [facility] Comment on above: Results Start: 08-26-2023 End: 08-26-2023 ambulatory LINA ZENDEJAS Facility:[facility] Start: 08-26-2023 End: 08-26-2023 Office outpatient visit 15 minutes Phil Márquez APRN.CNP Work Phone: [facility] Comment on above: Fever, unspecified f ever cause (Primary Dx); Suspected COVID-19 virus infection Start: 08-22-2023 Lina Aashish [facility] Start: 06-13-2023 Lina Aashish [facility] Start: 06-11-2023 End: 06-11-2023 Emergency department patient visit DR JAVIER CHEN MD [facility] Start: 06-07-2023 End: 06-07-2023 ambulatory LINA ZENDEJAS MD Facility:A Start: 06-07-2023 End: 06-07-2023 SAME DAY STAY HANK MCMULLEN MD [facility] Start: 05-31-2023 End: 05-31-2023 Emergency department patient visit SHIRA JEAN MD [facility] Start: 04-30-2023 End: 05-06-2023 Evaluation and management of inpatient NAATLIA FORD MD [facility] Start: 03-14-2023 Lina Zendejas [email or web address] Start: 02-22-2023 Telephone encounter Erika Elizalde APRN.CNP Work Phone: [facility] Comment on above: copy of xray report fax to FRANCESCO Dumont Start: 02-19-2023 End: 02-19-2023 ambulatory LINA ZENDEJAS Facility:[facility] Start: 02-19-2023 End: 02-19-2023 Subsequent hospital visit by physician Greg [facility] Work Phone: Radiology Comment on above: Pain of toe of left foot [M79.675] Start: 02-14-2023 Lina Zendejas [facility] [employer] [facility] Start: 01-31-2023 End: 01-31-2023 Emergency department patient visit DENZEL MANE MD [facility] Start: 01-29-2023 End: 01-29-2023 Emergency department patient visit IVONNE DUQUE MD [facility] Start: 01-17-2023 End: 01-17-2023 Patient encounter procedure ATAUL FELICIANO MD [facility] Start: 12-25-2022 End: 12-25-2022 Patient encounter procedure GIOVANNA FELICIANO MD [facility] Start: 10-13-2022 End: 10-13-2022 Emergency department patient visit DR DEANNE DUNCAN MD [facility] Start: 10-08-2022 End: 10-11-2022 Evaluation and management of inpatient MACI HARDY MD [facility] Start: 09-14-2022 End: 09-14-2022 SAME DAY STAY GIOVANNA FELICIANO MD [facility] Start: 08-29-2022 End: 08-29-2022 SAME DAY STAY HANK MCMULLEN MD [facility] Start: 08-24-2022 End: 08-24-2022 Patient encounter procedure LINA ZENDEJAS MD [facility] Start: 08-23-2022 Lina Zendejas [facility] Start: 08-15-2022 ambulatory Hank Mcmullen Facility :[facility] Start: 08-14-2022 End: 08-14-2022 Patient encounter procedure HANK MCMULLEN MD [facility] Start: 07-31-2022 End: 07-31-2022 Admission to establishment HANK MCMULLEN MD [facility] Start: 06-15-2022 End: 06-15-2022 Patient encounter procedure GIOVANNA FELICIANO MD [facility] Start: 04-24-2022 ambulatory Giovanna Feliciano Facility: [facility] Start: 04-24-2022 ambulatory Carley Lainez [place] Facilit y:[facility] Start: 04-12-2022 End: 04-12-2022 SAME DAY STAY GIOVANNA FELICIANO MD [facility] Start: 04-10-2022 End: 04-10-2022 Patient encounter procedure GIOVANNA FELICIANO MD [facility] Start: 03-09-2022 Opscpy extnd rta tania & scl deprsn i&r uni/bi Taylor Kaplan [facility] - [facility] Start: 03-02-2022 ambulatory Lina A Rodocoy Facili ty:[facility] Start: 03-02-2022 Opscpy extnd rta taniaclementine villarreal & scl deprsn i&r uni/bi Lina Rodmahsa [facility] - [facility] Start: 02-26-2022 End: 02-26-2022 Subsequent hospital visit by physician Mariela Mayberry MD Work Phone: [facility] Comment on above: I48.91,R06.09 Start: 02-15-2022 Opscpy extnd rta dra villarreal & scl deprsn i&r uni/bi Lina Rodmahsa [facility] - [facility] Start: 02-10-2022 ambulatory Lina A Rodocoy Facili ty:[facility] Start: 02-03-2022 ambulatory Clement M Repp Facility:[facility] Start: 11-13-2021 ambulatory Clement M Repp Facility:[facility] Start: 11-13-2021 Opscpy extnd rta dra villarreal & radha deprsn i&r uni/bi Clement Repp [facility] - [facility] Start: 11-03-2021 End: 11-03-2021 Subsequent hospital visit by physician Xr [facility] Work Phone: Radiology Comment on above: Cough [R05.9] Start: 02-16-2021 Opscpy extnd rta dra villarreal & radha deprsn i&r uni/bi Lina Zendejas [facility] - [facility] Procedures Date Procedure Procedure Detail Performing Clinician Start: 05-25-[address] NAKUL SIERRA MD Start: 11-22-[address] NAKUL SIERRA MD Start: 10-17-2023 End: 10-17-2023 History of cholecystectomy Clement Repp Start: 10-16-2023 History of cholecystectomy Clement Repp Start: 10-11-2023 Cholecystectomy Clement Repp Start: 10-11-2023 ERCP DUCT STENT PLACEMENT Clement Repp Start: 08-26-2023 INFLUENZA A&B MOLECULAR (POC) Phil hernadez APRN.RUBBER STAMP ASSEMBLER Work Phone: Start: 05-03-2023 Cardioversion JACY BAUMAN APRN-RUBBER STAMP ASSEMBLER Comment on above: Unfortunately, the patient continued to have early return of atrial fibrillation She will break into normal sinus rhythm lasting approximately 10 to 15 seconds before converting back to A-fib RVR Start: 05-03-2023 Transesophageal echocardiography YOSSI BAUMAN [employer]ULATOR [employer] Comment on above: 1. Left atrium: There is no evidence of a thrombus in the atrial cavity. There is presence of a residual pouch 16 mm deep. No thrombus or obvious pectinate muscle seen in the pouch.. 2. Atrial septum: PFO Amplatzer closure device functioning appropriately without evidence of residual shunting by color doppler. Doppler and echo contrast study following an increase in RA pressure induced by provocative maneuvers, shows no kcqqw-kw-imge atrial level shunt. There is no evidence of thrombus. 3. Left ventricle: Hypertrophy is noted. Systolic function is vigorous due to underlying atrial fibrillation. There is no evidence of a thrombus. 4. Ventricular septum: There is no evidence of a ventricular septal defect. 5. Mitral valve: Systolic bowing without prolapse. There is no evidence of vegetation. 6. Pulmonic valve: There is no evidence of a vegetation. 7. Tricuspid valve: There is no evidence of a vegetation. 8. Right atrium: There is no evidence of a thrombus in the atrial cavity or appendage. Start: 05-02-2023 Echocardiography JACY BAUMAN [employer] Comment on above: 1. Left ventricle: Wall thickness is mil dly increased. Systolic function is normal. The estimated ejection fraction is 55-60%. Wall motion is normal; there are no regional wall motion abnormalities. 2. Ventricular septum: Thickness is moderately increased. 3. Right ventricle: RV Systolic function is vigorous. TAPSE not available The RV systolic pressure by Doppler is 22 mm Hg. 4. Right atrium: The atrium is mildly dilated. The estimated right atrial pressure is 8 mm Hg Start: 04-30-2023 End: 04-30-2023 Maze procedure Lina Zendejas Comment on above: Convergent maze procedure via a subxipho id approach; ligation of the left atrial appendage with a 40MM Atricure Atriclip; [facility] Start: 02-19-2023 Radex toe minimum 2 views Erika espinoza APRN.RUBBER STAMP ASSEMBLER Work Phone: Start: 02-06-2023 Echocardiography NATALIA FORD MD Comment on above: 1. Left ventricle: The cavity size is no rmal. Wall thickness is mildly increased. Systolic function is normal. The estimated ejection fraction is 55-60%. Wall motion is normal; there are no regional wall motion abnormalities. Normal diastolic function. 2. Ventricular septum: Thickness is mildly increased. 3. Mitral valve: Systolic bowing without prolapse. 4. Right ventricle: The RV systolic pressure by Doppler is 23 mm Hg. 5. Right atrium: The estimated right atrial pressure is 3 mm Hg. 6. Atrial septum: There is an Amplatzer closure device in the fossa ovalis region. There is no atrial level shunt by color doppler. Start: 11-17-2022 Electrocardiographic monitor and recorder, device (physical object) GIOVANNA FELICIANO MD Comment on above: 3-day ekg monitor tech significant for fr equent episodes of long sustained atrial fibrillation atrial flutter converting to sinus rhythm spontaneously. Rare isolated premature atrial and ventricular beats were noted in singles as well. No atrial ventricular pauses observed. Start: 10-09-2022 Cardioversion MACI HARDY MD Start: 09-14-2022 Cardioversion NATALIA FORD MD Start: 09-14-2022 Transesophageal echocardiography MACI SHIN MD Comment on above: 1. Left ventricle: The cavity size is no rmal. Wall thickness is normal. Systolic function is normal. The estimated ejection fraction is 55-60%. There is no evidence of a thrombus. 2. Ventricular septum: There is no evidence of a ventricular septal defect. 3. Mitral valve: Posterior leaflet mobility is mildly restricted. There is no evidence of vegetation. There is mild to moderate regurgitation. 4. Left atrium: There is no evidence of a thrombus in the atrial cavity or appendage. No spontaneous echo contrast is observed. 5. Tricuspid valve: There is mild regurgitation. The regurgitant peak velocity is 2.2 m/sec. 6. Right atrium: The atrium is dilated. There is no evidence of a thrombus in the atrial cavity or appendage. Right atrial area 21.94 cm 7. Atrial septum: There is no atrial level shunt. There is no evidence of thrombus. Atrial septal occluder device is noted and is well positioned. No color-flow noted across the interatrial septum. Agitated saline contrast study does not show an interatrial shunt. 8. Systemic veins: IVC is 2.2 cm, mildly dilated. 9. Pericardium, extracardiac: A small, free-flowing pericardial effusion is identified posterior to the heart. The fluid has no internal echoes. There is no evidence of hemodynamic compromise. Recommendations: 1. IVC is 2.2 cm. Well-positioned ASD closure device. 2. No RICHARD thrombus. Start: 08-29-2022 Cardiac catheterization MACI HARDY MD Comment on above: No significant obstructive CAD. Normal LVEDP. Start: 08-29-2022 Lina Zendejas Start: 08-15-2022 Echocardiography MACI HARDY MD Comment on above: 1. Limited ECHO for assessment of perica rdial effusion. 2. Left ventricle: Systolic function is normal. 3. Pericardium, extracardiac: A ebxl-ow-tecdsnrm, free-flowing pericardial effusion is identified posterior to the heart. The fluid has no internal echoes. There is no evidence of chamber collapse. Respirophasic change in transvalvular velocities is within normal limits. No clinical tamponade. 4. Inferior vena cava: The IVC is normal-sized. Respirophasic diameter changes are in the normal range (> 50%). 5. Right atrium: The estimated right atrial pressure is 3 mm Hg. Start: 08-08-2022 Echocardiography MACI HARDY MD Comment on above: 1. Study data: limited for effusion chec k 2. Pericardium, extracardiac: A small pericardial effusion is identified posterior to the heart and along the left ventricular free wall. There is no evidence of hemodynamic compromise. 3. Left ventricle: The cavity size is normal. Wall thickness is normal. Systolic function is normal. The estimated ejection fraction is 60-65%. Although no diagnostic regional wall motion abnormality is identified, this possibility cannot be completely excluded on the basis of this study. 4. Mitral valve: There is mild, 1+ regurgitation. 5. Left atrium: The atrium is mildly dilated. 6. Tricuspid valve: There is mild, 1+ regurgitation. 7. Right atrium: The atrium is mildly dilated. Start: 08-07-2022 Closure of patent foramen ovale NATALIA LEUNG MD Start: 08-07-2022 Echocardiography MACI HRADY MD Comment on above: 1. Pericardium, extracardiac: A small pe ricardial effusion is identified. Features are not consistent with tamponade physiology. 2. Inferior vena cava: The IVC is trivially dilated Pericardium, extraca rdiac: A small to moderate posterior pericardial effusion is identified size 1.3 cm. There is no RV diastolic collapse noted. Previous TTE from March 2022 shows similar findings. Start: 08-07-2022 Repair of atrial septal defect with prosthesis by closed heart technique Lina Carreonmahsa Start: 08-07-2022 Transesophageal echocardiography MACI SHIN MD Comment on above: 1. Left ventricle: Systolic function is normal. 2. Left atrium: There is no evidence of a thrombus in the atrial cavity or appendage. No spontaneous echo contrast is observed. 3. Right ventricle: The cavity size is mildly increased. 4. Right atrium: The atrium is dilated. There is no evidence of a thrombus in the atrial cavity or appendage. 5. Atrial septum: There is a 0.6 cm2 secundum ASD. Successful implantation of ASD closure device. 6. Pericardium, extracardiac: A small pericardial effusion is identified pre procedure and did not change post procedure Start: 06-15-2022 Transesophageal echocardiography MACI SHIN MD Comment on above: 1. Left ventricle: Systolic function is normal. 2. Left atrium: There is no evidence of a thrombus in the atrial cavity or appendage. No spontaneous echo contrast is observed. 3. Right ventricle: The cavity size is increased. 4. Pulmonic valve: There is no evidence of a vegetation. 5. Tricuspid valve: There is no evidence of a vegetation. 6. Right atrium: The atrium is dilated. There is no evidence of a thrombus in the atrial cavity or appendage. 7. Atrial septum: Secundum ASD, 8 mm in diameter, 0.5 cm area noted with a predominant ktpj-dz-arpax shunt on color Doppler as well as agitated saline study. Some right to left shunting noted with provocative maneuvers. 8. Inferior vena cava: The IVC is dilated at 2.2 cm. 9. Pericardium, extracardiac: A small pericardial effusion is identified Start: 04-24-2022 Spirometry MACI HARDY MD Comment on above: 1. Moderate degree of restrictive airway disease. 2. Bronchodilator therapy has not demonstrated any significant change indicating that the patient will not benefit from continued bronchodilator therapy. 3. No evidence of diffusion defect. 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 Work Phone: Start: 09-23-2021 Esophagogastroduodenoscopy NATALIA FORD MD Start: 02-16-2021 End: 02-16-2021 Adult health examination Lina Zendejas Start: 02-16-2021 End: 02-16-2021 Screening mammography Lina Zendejas Start: 02-10-2016 Lipid 1996 panel - Serum or Plasma Rosie Márquez REGULATOR INSPECTOR.RUBBER STAMP ASSEMBLER Work Phone: Start: 12-06-2015 Colonoscopy Lina Jeannettejyoti Start: 09-23-2015 Dilation and curettage NATALIA FORD MD Start: 09-23-2015 Hysteroscopy NATALIA FORD MD Start: 09-23-2011 Colonoscopy NATALIA FORD MD Start: 09-23-2007 Excision of bunion NATALIA FORD MD Start: 09-23-1992 Ligation of fallopian tube NATALIA FORD MD Start: 09-23-1991 Cystopexy NATALIA FORD MD Start: 09-23-1963 Tonsillectomy NATALIA FORD MD Closure of patent foramen ovale HANK MCMULLEN MD Colonoscopy HANK MCMULLEN MD Cystopexy GIOVANNA Soto Dilation and curettage GIOVANNA FELICIANO MD Esophagogastroduodenoscopy Migel MCMULLEN MD Excision of bunion GIOVANNA STYLES MD Hysteroscopy GIOVANNA Soto Ligation of fallopian tube A CHRISTINE FELICIANO MD Tonsillectomy GIOVANNA FELICIANO MD Plan of Treatment Date Care Activity Detail Author Start: 2036 RSV Vaccine (1 - 1-d ose 75+ series) RSV Vaccine (1 - 1-dose 75+ series) Start: 06-25-2031 Urine microalbumin profile DTaP,Tdap,Td Vaccine (2 - Td or Tdap) Start: 08-06-2024 30 MIN VISIT 30 MIN VISIT [facility] Start: 05-24-2024 Covid-19 Vaccine ( season) Covid-19 Vaccine ( season) Start: 05-24-2024 Covid-19 Vaccine ( season) Covid-19 Vaccine ( season) Start: 05-24-2024 Influenza vaccination Influenza Vacc ine (#1) Start: 04-09-2024 30 MIN VISIT 30 MIN VISIT [facility] Start: 03-20-2024 Prob/Focused Visit Prob/Focused Visi t [facility] Start: 03-20-2024 triamcinolone acetonide 0.1 % topical cream [facility] Start: 03-05-2024 Same Day Same Day [facility] Start: 03-05-2024 [facility] Start: 12-05-2023 20 MIN VISIT 20 MIN VISIT [facility] Start: 11-14-2023 Follow-up encounter ED Follow-up [facility] Start: 11-14-2023 Patient encounter procedure physical therapist referral [facility] Start: 11-14-2023 tizanidine 4 mg tablet [facility] Start: 10-17-2023 Follow-up encounter HOSPITAL FOLLOW UP [facility] Start: 08-26-2023 End: 09-09-2023 SARS-CoV-2 (COVID-19) RNA [Presence] in Respiratory specimen by SONJA with probe detection [facility] Work Phone: Comment on above: Expected: 08/26/2023 , Expires: 09/09/2023 Start: 08-22-2023 30 MIN VISIT 30 MIN VISIT [facility] Start: 06-13-2023 30 MIN VISIT 30 MIN VISIT [facility] Start: 05-24-2023 Covid-19 Vaccine () Covid-19 Vaccine () Start: 05-24-2023 Influenza vaccination [facility] Start: 03-14-2023 20 MIN VISIT 20 MIN VISIT [facility] Start: 11-22-2022 30 MIN VISIT 30 MIN VISIT [facility] Start: 09-23-2022 DEPRESSION ASSESSMENT DEPRESSION ASS ESSMENT Start: 08-23-2022 30 MIN VISIT 30 MIN VISIT IN [employer] Start: 08-23-2022 Comprehensive metabo lic 2000 panel - Serum or Plasma [facility] (Scheduling) Start: 08-02-2022 30 MIN VISIT 30 MIN VISIT IN [facility] Start: 05-24-2022 Influenza vaccination INFLUENZA (Sea son Ended) Start: 03-09-2022 20 MIN VISIT 20 MIN VISIT IN [employer] Start: 03-09-2022 desoximetasone 0.05 % topical cream IN [employer] Start: 03-02-2022 influenza virus A + B RNA and SARS CoV 2 N gene panel, SONJA+probe, respiratory specimen In-Office Order Start: 03-02-2022 Nursing evaluation o f patient and report Nurse Visit IN [employer] Start: 02-15-2022 30 MIN VISIT 30 MIN VISIT IN [employer] Start: 02-15-2022 Patient encounter procedure IN [employer] Start: 01-04-2022 30 MIN VISIT 30 MIN VISIT IN [employer] Start: 12-14-2021 COVID-19 VACCINE (2 - Pfizer series) COVID-19 VACCINE (2 - Pfizer series) Start: 11-13-2021 Follow-up encounter ED Follow-up IN [employer] [facility] [employer] Start: 11-13-2021 CBC W Auto Different ial panel - Blood [facility] (Scheduling) Start: 11-13-2021 CMP, serum or plasma [facility] (Scheduling) Start: 11-13-2021 Patient encounter procedure vestibular therapy referral [facility] Start: 11-13-2021 XR Chest 2 Views [employer] al [facility] Start: 11-09-2021 COVID-19 VACCINE (2 - Pfizer series) COVID-19 VACCINE (2 - Pfizer series) Start: 2021 RSV Vaccine (1 - 1-d ose 60+ series) RSV Vaccine (1 - 1-dose 60+ series) Start: 04-06-2021 20 MIN VISIT 20 MIN VISIT [email or web address] Start: 02-16-2021 PHYSICAL/PREVENTATIVE O [email or web address] [email or web address] Start: 02-16-2021 MG Breast - bilatera l Screening [facility] Start: 02-09-2021 Lipid 1996 panel - Serum or Plasma Lipid Screening Start: 02-09-2021 Lipid panel Lipid Screening [facility] Start: 02-09-2021 LIPID SCREEN LIPID SCREEN Start: 09-13-2019 DIABETES SCREEN DIABETES SCREEN [facility] Start: 09-13-2019 Diabetes Screening Diabetes Screenin g Start: 2011 SHINGRIX VACCINE (1 of 2) SHINGRIX VACCINE (1 of 2) Start: 2006 COLOGUARD (FIT-DNA) COLOGUARD (FIT-D NA) Start: 2006 Colonoscopy COLONOSCOPY Start: 2006 COLORECTAL CANCER SCREENING COLORECTAL CANCER SCREENING Start: [address] COLONOGRAPHY [facility] Start: 2006 FECAL OCCULT BLOOD FECAL OCCULT BLOO D Start: 2006 Screening for malign ant neoplasm of colon Start: 2006 SIGMOIDOSCOPY SIGMOIDOSCOPY [facility] Start: 2001 Mammography Start: 2001 Screening for malign ant neoplasm of breast Mammogram Screening Start: 1991 HPV TESTING HPV TESTING Start: 1982 PAP TESTING PAP TESTING Start: 1982 Screening for malign ant neoplasm of cervix Cervical Cancer Screening Start: 1980 Urine microalbumin profile DTAP,TDAP,TD (1 - Tdap) Start: 1979 Anxiety Screening Anxiety Screening Start: 1979 Depression Screening Depression Scre ening Start: 1979 HIV SCREENING HIV SCREENING [facility] Start: 1979 HIV screening HIV Screening [facility] Start: 1973 Adult depression screening assessment DEPRESSION SCREENING Dilation & curettage dx&/ther nonobstetric Dilation and curettage [facility], [email or web address] Other bilateral ligation and division of fallopian tubes [facility], [facility] [employer] [facility] Patient Education [facility] Immunizations Immunization Date Immunization Notes Care Provider Kathrin hui 10-19-2021 SARS-CoV-2 mRNA (tozinameran) vaccine HANK MCMULLEN MD [facility] 10-07-2021 SARS-COV-2 (COVID-19 ) vaccine, mRNA, spike protein, LNP, preservative free, 30 mcg/0.3mL dose Clement Repp [facility] 06-25-2021 tetanus toxoid, redu den diphtheria toxoid, and acellular pertussis vaccine, adsorbed Clement Repp [facility] 03-03-1998 TD(adult) unspecifie d formulation Lina Zendejas [facility] Payers Date Payer Category Payer Unknown [id number] 2023 Private Health Insurance [facility] [employer] [id number] 2023-Present [phone] [address] [place] [address] PPO [id number] 2023 Unknown [id number] 2022 Unknown [id number] 2021 Self-pay 2020 Unknown [id number] 2020 Unknown [employer] [id number] 2020-Present [phone] [address] [place] [address] PPO [id number] 2020 Unknown [id number] 1961 Unknown [id number] 1961 Unknown [id number] .627 1961 Unknown [id number] .627 1961 Unknown [id number] .627 1961 Unknown [id number] .627 1961 Unknown [id number] .627 Unknown [id number] .630 Unknown [id number] .630 Unknown [id number] .630 Unknown [id number] .630 Unknown [id number] .630 Unknown [id number] .630 Unknown [id number] .630 Social History Date Type Detail Facility Start: 02-10-2016 End: 09-20-2019 Tobacco Smoking Status NHIS Never Smoker IN [employer] [employer] Start: 1960 Sex Assigned At Unknown [facility] [email or web address] [employer] [facility] Start: 02-10-2016 Tobacco use and exposure Smokeless tobacco non-user Start: 11-03-2021 End: 02-19-2023 Alcohol intake Current non-drinker of alcohol (finding) Sex Assigned At Female [facility] Start: 04-12-2021 End: 08-26-2023 History of Social function Start: 04-12-2021 End: 08-26-2023 Tobacco use panel National Score (1-100), lower number is lower risk Not on file Start: 10-04-2021 End: 11-03-2021 Exposure to SARS-CoV-2 (event) Not sure Medical Equipment Procedure Code Equipment Code Equipment Original Text Equi pment Identifier Dates Procedure Implant ([id number]) Functional Status Date Assessment Result Facility 05-26-2024 Functional Status Room check performed [facility] 05-26-2024 Functional Status [facility] 05-26-2024 Functional Status Not done 1 [facility] 05-26-2024 Functional Status [facility] 05-26-2024 Functional Status [facility] 05-25-2024 Functional Status 100 [facility] 05-25-2024 Functional Status Up to Chair Remains up in chair [facility] 05-25-2024 Functional Status [facility] 05-24-2024 Functional Status Done [facility] 05-23-2024 Functional Status Ambulation in Room [facility] 05-23-2024 Functional Status [facility] 05-23-[facility] 06-11-2023 Functional Status Ambulation in [facility] 06-11-2023 Functional Status [facility] 06-07-2023 Functional Status Independent [facility] 05-06-2023 Functional Status Room check performed [facility] 05-06-2023 Functional Status 90 [facility] 05-06-2023 Functional Status [facility] 05-06-2023 Functional Status [facility] 05-06-2023 Functional Status [facility] 05-06-2023 Functional Status 3pm-3am [facility] 05-05-2023 Functional Status bilateral knee high rem tequila/off [facility] 05-05-2023 Functional Status [facility] 05-05-2023 Functional Status [facility] 05-05-2023 [facility] 05[facility]23 Functional Status Up to Chair Remains up in chair [facility] 05-05-2023 Functional Status Assistive Device None A [facility] 05-05-2023 Functional Status [facility] 05-04-2023 Functional Status [facility] 05-04-2023 Functional Status [facility] 05-04-2023 Functional Status [facility] 05-03-2023 Functional Status One assist [facility] 05-03-2023 Functional Status Patient Identi fied Identification band [facility] 05-03-2023 Functional Status [facility] 05-03-2023 Functional Status [facility] 05-02-2023 Functional Status [facility] 05-02-2023 [facility] Status [facility] 05-02-2023 [facility] Status [facility] 04-30-2023 Functional Status Maintained [facility] 01-31-2023 Functional Status Up ad [place] [facility] 01-31-2023 Functional Status Standard Safet y ID band on, Allergy Band on, Call device within reach, Bed in low position, Wheels locked [facility] 01-29-2023 Functional Status Up ad [place] [facility] 10-13-2022 Functional Status Independent [facility] 10-13-2022 Functional Status Standard Safet y ID band on, Allergy Band on, Call device within reach, Bed in low position, Wheels locked, Upper/Half-Length side-rails up, Phone within reach [facility] 10-11-2022 Functional Status Room check performed [facility] 10-11-2022 Functional Status Done [facility] 10-11-2022 Functional Status Breakfast Percent 60 [facility] 10-10-2022 Functional Status CHG bath [facility] 10-09-2022 Functional Status Home independe ntly, Lives with family [facility] 10-09-2022 Functional Status [facility] 10-09-2022 Functional Status SCD Removed/Of f bilateral knee high [facility] 10-08-2022 Functional Status NPO Status Initiated [facility] 10-08-2022 Functional Status [facility] 10-08-2022 Functional Status Repositions self [facility] 10-08-2022 Functional Status Sensory Deficits None A [facility] 09-14-2022 Functional Status Ambulating in room, Repositions self, Resting, Up ad pre[place], Up to bathroom [facility] 09-14-2022 Functional Status ID band on, Allergy Band on, Bed in low position, Wheels locked, Upper/Half-Length side-rails up [facility] 09-14-2022 Functional Status Maintained [facility] 08-29-2022 Functional Status Awake, Repositions self, Up to bathroom [facility] 08-29-2022 Functional Status [facility] 08-29-2022 Functional Status [facility] 08-29-2022 Functional Status 100 [facility] 08-29-2022 Functional Status Maintained [facility] 04-12-2022 Functional Status Ambulating in room [facility] 04-12-2022 Functional Status [facility] 04-12-2022 Functional Status [facility] 04-12-2022 Functional Status Maintained [facility] Mental Status Date Assessment Result Facility 05-26-2024 Mental Status Oriented x 4 [facility] 05-26-2024 [facility] Status [facility] 05-26-2024 [facility] Status [facility] 05-25-2024 [facility] Status [facility] 06-11-2023 [facility] 06-11-2023 [facility] 06-07-2023 Mental Status Oriented x 4 [facility] 05-06-2023 Mental Status Orientation Orie nted x 4, Follows simple commands [facility] 05-06-2023 Mental Status [facility] 05-06-2023 [facility] 05-05-2023 Mental Status Orientation Asse ssment Oriented x 4 [facility] 05-05-2023 Mental Status [facility] 05-05-2023 Mental Status [facility] 01-31-2023 Mental Status Orientation Oriented x 4 [facility] 01-29-2023 Mental Status Orientation Oriented x 4 [facility] 01-29-2023 Mental Status [facility] 10-13-2022 Mental Status Orientation Oriented x 4 [facility] 10-13-2022 Mental Status [facility] 10-11-2022 Mental Status Oriented x 4 [facility] 10-11-2022 Mental Status [facility] 10-08-2022 Mental Status Orientation Asse ssment Oriented x 4 [facility] 09-14-2022 Mental Status Orientation Orie nted x 4, Follows simple commands [facility] 09-14-2022 Mental Status [facility] 09-14-2022 Mental Status [facility] 08-29-2022 Mental Status Orientation Oriented x 4 [facility] 08-29-2022 Mental Status [facility] 08-29-2022 Mental Status [facility] 04-12-2022 Mental Status Oriented x 4 [facility] 07-21-2022 Mental Status [facility] 04-12-2022 Mental Status [facility] 04-12-2022 Mental Status [facility] Clinical Notes 02-16-2021 to 05-26-2024 Note Date & Type Note Facility 05-26-2024 Note Discharge Instructions Thank you for allowing [facility] to assist you with your healthcare needs. The following is important discharge information regarding your hospital visit. Your Care Team LINA ZENDEJAS MD What to do next Instructions From Your Doctor Please stop taking metoprolol and begin taking nebivolol 2.5 mg daily. We will send you with a 30-day ekg monitor tech that we will be delivered to your house. Please follow-up with Dr. Hardy in the outpatient clinic. Scheduled Follow-Up Appointments Appointment Type When With Where Contact Information StatusCV OV 07/10/2024 01:00 PM EDT [facility] Confirmed CV OV 09/25/2024 11:30 AM EST RUSSELL MCMULLEN [facility] Confirmed Follow Up Appointments Follow Up with LINA ZENDEJAS MD, [facility], Internal Medicine Where:[facility] [address] [place] [address]- [phone] Additional Information: PLEASE CALL THIS OFFICE TO SCHEDULE A HOSPITAL FOLLOW UP APPOINTMENT. Follow Up with MACI HARDY MD When:07/10/2024 01:00 PM EDT Where:[address] [facility] [address] [place] [address]- [phone] Follow Up with HANK MCMULLEN MD When:09/25/2024 11:30 AM EST Where:[address] [facility] [address] [place] [address]- [phone] The Following Activity and Diet Have Been Ordered for You Discharge Activity - Ordered -- NO activity restrictions, 05/26/24 10:38:00 EDT Discharge Diet - Ordered -- No changes were made to your diet during your hospital stay. Please resume your pre hospitalization diet on discharge., 05/26/24 10:38:00 EDT The Following Equipment Has Been Ordered for You No qualifying data available. The Following Treatments Have Been Ordered for You Discharge Labs No qualifying data available. Discharge Radiology No qualifying data available. Other Therapies Discharge Event Monitor Instructions - Ordered -- 05/26/24 10:38:39 EDT, You have been ordered mobile outpatient telemetry. You should receive a device in the mail with further instructions. If you have not received a device within 7 days after discharge, please call [facility] at [phone]. Post Acute Orders No qualifying data available. Someone Will Contact You Regarding These Home Health Referrals No home referrals have been ordered for you. No one will call you. Allergies Bactrim Itching, Rash Cigarette smoke Watery eye, Nasal drainage Dilaudid Nausea and vomiting, Diarrhea, Dizziness codeine HALLUCINATIONS ibuprofen Itching iodinated radiocontrast dyes Racing heartbeat morphine Itching sulfa drugs Itching, Rash Medications Please ask your primary doctor or pharmacist before taking any other medication not listed, including over the counter drugs, herbal medications, vitamins and or supplements as they may interact with your home medications. What How Much When Instructions Last Dose New nebivolol (nebivolol 2.5 mg oral tablet) 1 tab(s) by mouth Every day Refills: 3 Pickup at [facility] Changed cyanocobalamin (cyanocobalamin 1000 mcg oral tablet) 1 tab(s) by mouth Once a day Unchanged aspirin (aspirin 81 mg oral tablet, chewable) 1 tab(s) by mouth Every day Unchanged bumetanide (bumetanide 1 mg oral tablet) 1 tab(s) by mouth Every day as needed for Swelling/weight gain Unchanged busPIRone (busPIRone 5 mg oral tablet) 2 tab(s) by mouth Three (3) times a day as needed for Anxiety Unchanged cholecalciferol (Vitamin D3 1000 intl units oral tablet) 1 tab(s) by mouth Once a day Unchanged digoxin (digoxin 125 mcg (0.125 mg) oral tablet) 1 tab(s) by mouth Once a day Unchanged dofetilide (Tikosyn 500 mcg oral capsule) 1 cap by mouth Two (2) times a day Unchanged magnesium oxide (magnesium oxide 250 mg oral tablet) 1 tab(s) by mouth Two (2) times a day Unchanged rivaroxaban (Xarelto 20 mg oral tablet) 1 tab(s) by mouth Once a day Unchanged tadalafil (Tadalafil (Eqv-Cialis) 20 mg oral tablet) 1 tab(s) by mouth Two (2) times a day Pharmacy Information [facility]: [address] [place] [address] [phone] What How Much When Comments Stop Taking colchicine (colchicine 0.6 mg oral tablet) 1 tab(s) by mouth Two (2) times a day Stop Taking metoprolol (metoprolol succinate 25 mg oral TABLET extended release) 1 tab(s) by mouth Once a day Do not crush or chew (controlled release) 0.5 in afternoon Stop Taking metoprolol (metoprolol succinate 25 mg oral TABLET extended release) 1 tab(s) by mouth Once a day Do not crush or chew (controlled release) 0.5 in afternoon Stop Taking metoprolol (metoprolol succinate 25 mg oral TABLET extended release) 1 tab(s) by mouth Once a day as needed for Control symptoms Stop Taking potassium chloride (Klor-Con M20 oral tablet, extended release) 1 tab(s) by mouth Once a day Please take this list to your next doctor s visit. Bring all medications you take, including over the counter medications, herbals and other supplements with you to your doctor s visit. Patients and families are reminded to discard old lists and to update any records with all medication providers or retail pharmacies. Medication Leaflets nebivolol (ne BIV oh lol) Bystolic What is the most important information I should know about nebivolol? Do not skip doses or stop taking nebivolol without first talking to your doctor. What is nebivolol? Nebivolol is a beta-wyatt that is used to treat hypertension (high blood pressure). Lowering blood pressure may lower your risk of a stroke or heart attack. Nebivolol may also be used for purposes not listed in this medication guide. What should I discuss with my healthcare provider before taking nebivolol? You should not take nebivolol if you are allergic to it, or if you have: a serious heart condition such as heart failure, 'AV block' (2nd or 3rd degree), or sick sinus syndrome (unless you have a pacemaker); very slow heartbeats; severe liver disease; or if your heart cannot pump blood properly. Tell your doctor if you have ever had: asthma, bronchitis, emphysema; a heart attack; problems with circulation (especially in your feet and legs); diabetes (taking nebivolol can make it harder for you to tell when you have low blood sugar); a thyroid disorder; liver or kidney disease; allergies; or pheochromocytoma (tumor of the adrenal gland). Tell your doctor if you are or plan to become . It is not known whether nebivolol will harm an unborn baby. However, having high blood pressure during may cause complications such as diabetes or eclampsia (dangerously high blood pressure that can lead to medical problems in both mother and baby). The benefit of treating hypertension may outweigh any risks to the baby. You should not breastfeed while using nebivolol. How should I take nebivolol? Follow all directions on your prescription label and read all medication guides or instruction sheets. Your doctor may occasionally change your dose. Use the medicine exactly as directed. You may take nebivolol with or without food. Your blood pressure will need to be checked often. If you need surgery, tell the surgeon ahead of time that you are using nebivolol. You should not skip doses or stop using nebivolol suddenly. Stopping suddenly may make your condition worse or cause serious heart problems, including heart attack. Follow your doctor's instructions about tapering your dose. Keep using this medicine as directed, even if you feel well. High blood pressure often has no symptoms. You may need to use blood pressure medicine for the rest of your life. Store at room temperature away from moisture and heat. What happens if I miss a dose? Take the medicine as soon as you can, but skip the missed dose if it is almost time for your next dose. Do not take two doses at one time. What happens if I overdose? Seek emergency medical attention or call the Poison Help line at . Overdose symptoms may include slow heart rate, dizziness, vomiting, trouble breathing, or feeling like you might pass out. What should I avoid while taking nebivolol? Avoid driving or hazardous activity until you know how this medicine will affect you. Your reactions could be impaired. What are the possible side effects of nebivolol? Get emergency medical help if you have signs of an allergic reaction: hives; difficult breathing; swelling of your face, lips, tongue, or throat. Call your doctor at once if you have: a light-headed feeling, like you might pass out; rapid weight gain; shortness of breath; slow or uneven heartbeats; or numbness or cold feeling in your hands and feet. Common side effects may include: dizziness; swelling in your legs; slow heartbeats; tiredness; or headache. This is not a complete list of side effects and others may occur. Call your doctor for medical advice about side effects. You may report side effects to FDA at 4-270-HIL-0412. What other drugs will affect nebivolol? Sometimes it is not safe to use certain medications at the same time. Some drugs can affect your blood levels of other drugs you take, which may increase side effects or make the medications less effective. Many drugs can affect nebivolol. This includes prescription and sorf-vxb-texnuts medicines, vitamins, and herbal products. Not all possible interactions are listed here. Tell your doctor about all your current medicines and any medicine you start or stop using. Where can I get more information? Your pharmacist can provide more information about nebivolol. Remember, keep this and all other medicines out of the reach of children, never share your medicines with others, and use this medication only for the indication prescribed. Every effort has been made to ensure that the information provided by [employer]. ('[employer]') is accurate, up-to-date, and complete, but no guarantee is made to that effect. Drug information contained herein may be time sensitive. [employer] information has been compiled for use by healthcare practitioners and consumers in the [place] and therefore [employer] does not warrant that uses outside of the [place] are appropriate, unless specifically indicated otherwise. [employer]'s drug information does not endorse drugs, diagnose patients or recommend therapy. [employer] drug information is an informational resource designed to assist licensed healthcare practitioners in caring for their patients and/or to serve consumers viewing this service as a supplement to, and not a substitute for, the expertise, skill, knowledge and judgment of healthcare practitioners. The absence of a warning for a given drug or drug combination in no way should be construed to indicate that the drug or drug combination is safe, effective or appropriate for any given patient. [employer] does not assume any responsibility for any aspect of healthcare administered with the aid of information [employer] provides. The information contained herein is not intended to cover all possible uses, directions, precautions, warnings, drug interactions, allergic reactions, or adverse effects. If you have questions about the drugs you are taking, check with your doctor, nurse or pharmacist. Copyright 7043-7714 [employer]. Version: 5.01. Revision Date: 12/16/2018. Education Materials Atrial Fibrillation Atrial fibrillation is a type of irregular or rapid heartbeat (arrhythmia). In atrial fibrillation, the top part of the heart (atria) quivers in a chaotic pattern. This makes the heart unable to pump blood normally. Having atrial fibrillation can increase your risk for other health problems, such as: Blood can pool in the atria and form clots. If a clot travels to the brain, it can cause a stroke. The heart muscle may weaken from the irregular blood flow. This can cause heart failure. Atrial fibrillation may start suddenly and stop on its own, or it may become a long-lasting problem. What are the causes? This condition is caused by some heart-related conditions or procedures, including: High blood pressure. This is the most common cause. Heart failure. Heart valve conditions. Inflammation of the sac that surrounds the heart (pericarditis). Heart surgery. Coronary artery disease. Certain heart rhythm disorders, such as Gomez Parkinson White syndrome. Other causes include: Pneumonia. Obstructive sleep apnea. Lung cancer. Thyroid problems, especially if the thyroid is overactive (hyperthyroidism). Excessive alcohol or drug use. Sometimes, the cause of this condition is not known. What increases the risk? This condition is more likely to develop in: Older people. People who smoke. People who have diabetes mellitus. People who are overweight (obese). Athletes who exercise vigorously. People who have a family history. What are the signs or symptoms? Symptoms of this condition include: A feeling that your heart is beating rapidly or irregularly. A feeling of discomfort or pain in your chest. Shortness of breath. Sudden light-headedness or weakness. Getting tired easily during exercise. In some cases, there are no symptoms. How is this diagnosed? Your health care provider may be able to detect atrial fibrillation when taking your pulse. If detected, this condition may be diagnosed with: Electrocardiogram (ECG). Ambulatory ekg monitor tech. This device records your heartbeats for 24 hours or more. Transthoracic echocardiogram (TTE) to evaluate how blood flows through your heart. Transesophageal echocardiogram (ANTON) to view more detailed images of your heart. A stress test. Imaging tests, such as a CT scan or chest X-ray. Blood tests. How is this treated? This condition may be treated with: Medicines to slow down the heart rate or bring the heart's rhythm back to normal. Medicines to prevent blood clots from forming. Electrical cardioversion. This delivers a low-energy shock to the heart to reset its rhythm. Ablation. This procedure destroys the part of the heart tissue that sends abnormal signals. Left atrial appendage occlusion/excision. This seals off a common place in the atria where blood clots can form (left atrial appendage). The goal of treatment is to prevent blood clots from forming and to keep your heart beating at a normal rate and rhythm. Treatment depends on underlying medical conditions and how you feel when you are experiencing fibrillation. Follow these instructions at home: Medicines Take over-the counter and prescription medicines only as told by your health care provider. If your health care provider prescribed a blood-thinning medicine (anticoagulant), take it exactly as told. Taking too much blood-thinning medicine can cause bleeding. Taking too little can enable a blood clot to form and travel to the brain, causing a stroke. Lifestyle Do not use any products that contain nicotine or tobacco, such as cigarettes and e-cigarettes. If you need help quitting, ask your health care provider. Do not drink beverages that contain caffeine, such as coffee, soda, and tea. Follow diet instructions as told by your health care provider. Exercise regularly as told by your health care provider. Do not drink alcohol. General instructions If you have obstructive sleep apnea, manage your condition as told by your health care provider. Maintain a healthy weight. Do not use diet pills unless your health care provider approves. Diet pills may make heart problems worse. Keep all follow-up visits as told by your health care provider. This is important. Contact a health care provider if you: Notice a change in the rate, rhythm, or strength of your heartbeat. Are taking an anticoagulant and you notice increased bruising. Tire more easily when you exercise or exert yourself. Have a sudden change in weight. Get help right away if you have: Chest pain, abdominal pain, sweating, or weakness. Difficulty breathing. Blood in your vomit, stool (feces), or urine. Any symptoms of a stroke. BE FAST is an easy way to remember the main warning signs of a stroke: ? B - Balance. Signs are dizziness, sudden trouble walking, or loss of balance. ? E - Eyes. Signs are trouble seeing or a sudden change in vision. ? F - Face. Signs are sudden weakness or numbness of the face, or the face or eyelid drooping on one side. ? A - Arms. Signs are weakness or numbness in an arm. This happens suddenly and usually on one side of the body. ? S - Speech. Signs are sudden trouble speaking, slurred speech, or trouble understanding what people say. ? T - Time. Time to call emergency services. Write down what time symptoms started. Other signs of a stroke, such as: ? A sudden, severe headache with no known cause. ? Nausea or vomiting. ? Seizure. These symptoms may represent a serious problem that is an emergency. Do not wait to see if the symptoms will go away. Get medical help right away. Call your local emergency services (911 in the [place] Do not drive yourself to the hospital. Summary Atrial fibrillation is a type of irregular or rapid heartbeat (arrhythmia). Symptoms include a feeling that your heart is beating fast or irregularly. In some cases, you may not have symptoms. The condition is treated with medicines to slow down the heart rate or bring the heart's rhythm back to normal. You may also need blood-thinning medicines to prevent blood clots. Get help right away if you have symptoms or signs of a stroke. This information is not intended to replace advice given to you by your health care provider. Make sure you discuss any questions you have with your health care provider. Document Released: 09/09/2006 Document Revised: 10/30/2018 Document Reviewed: 10/31/2018 Elsevier Patient Education 2020 [employer] Additional Information VACCINATE! IT SAVES LIVES! Members of the community who have not yet received the COVID-19 vaccine and would like to receive it can visit one of [facility] vaccine clinics. There are many vaccine clinic locations within the [facility]. For locations and available times, please visit https://gettheshot.coronavirus.o hio.gov/. It is important to note that some COVID mobile vaccine clinics are held outdoors and may be canceled in rainy or stormy conditions. To learn more about pediatric vaccinations (ages 5-11), we invite you to visit the [facility] webpage. https://www.[facility].org/p ages/4674-Oytvd-Hftkgsngtea-Freq ghsfvf-Clofj-Vnfznwziq.html To learn more about the COVID-19 vaccine, we invite you to visit the CDC website for a list of frequently asked questions.https://www.cdc.gov/co ronavirus/2019-ncov/vaccines/faq .html [facility] Patient Portal Access Instructions: Stay connected with your healthcare team and access your personal medical information anytime with the [facility] Patient Portal. Please follow the directions below to create your [facility] account: 1.Access the email account you provided upon registration to the hospital/physician office.2.Look for an invitation email from [facility].3.Open the email and access the invitation link: Accept Invitation to [facility].4.Fill in the required العلي to create your account. To access your account, visit [employer]. Click the blue button labeled Access Patient Portal and then log in with the username and password that you created in the steps above. You will be able to view your test results, lab results, a summary of your visits, upcoming appointments and more. There is also a convenient messaging option where you can send secure messages to your provider. In addition, you will have the ability to download any documents or summaries to your computer and/or send the information securely to a physician. Remember that your healthcare information is confidential, so carefully consider who you will allow to register on the [facility] Patient Portal for access to your information. You can also access the [facility] Patient Portal on the [facility]. Simply click on Patient Portal and then log into your account. If you would like to receive a full copy of your medical records, please contact the [facility] Medical Records Department by calling [phone], Saturday through Saturday between 8 a.m. and 4:30 p.m. HOW TO SAFELY DISPOSE OF PRESCRIPTION MEDICATIONS Please use one of the following methods to safely dispose of your unused medications. 1.Use a drug disposal kit: the drug disposal pouch allows you to safely discard your old and unused drugs. Ask your nurse to give you one when you are discharged.2.Visit a local take-back location: Many local pharmacies and police departments have programs that collect old and unwanted prescription drugs. Call your local pharmacy or go to http://bideo.com.[employer]/7N4Vj9m to find one close to you.3.Make use of household items: Use cat litter or old coffee grounds to dispose medications if other options are not available. Mix your drugs with these household products, seal them in an airtight container and throw it into the garbage. Call [facility]: [phone] to be sure your drugs can be disposed of in this way. Some medicines may require a different approach.4.Never flush your medications down the toilet. IF YOU HAVE BEEN PRESCRIBED AN OPIOID FOR PAIN If you have been prescribed an opioid (such as hydrocodone, oxycodone or morphine), it is critical to understand the possible side effects and risks of opioid pain medications. Even when taken as directed, opioids can have several side effects including: Tolerance, meaning you might need to take more of a medication for the same pain relief. Nausea, vomiting and/or constipation. Sleepiness, dizziness, dry mouth, confusion, depression or itching. Physical dependence, meaning you have withdrawal symptoms when a medication is stopped, can develop within a few days. KNOW YOUR RESPONSIBILITIES It is important to know exactly how much and how often to take the opioid pain medications you are prescribed. Never take opioids in higher amounts or more often than prescribed. Do not combine opioids with alcohol or other drugs that cause drowsiness, such as benzodiazepines, also known as benzos, including diazepam and alprazolam, muscle relaxants or sleep aids. Never sell or share prescription opioids. This is illegal. Store opioids in a secure place and out of reach of others (including children, family, friends and visitors). The last page of this document has been signed and retained as a CHART COPY. Signatures Patient Education Materials Atrial Fibrillation Medication Leaflets nebivolol My discharge plan and instructions have been reviewed and explained to me and IKEV MARY C understand my current condition and have read and understand these discharge instructions. I have received a written copy of the plan/instructions. If I have questions, I am aware that I should contact my doctor. 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 In atrial fibrillation, the top part of the heart (atria) quivers in a chaotic pattern. This makes the heart unable to pump blood normally. Having atrial fibrillation can increase your risk for other health problems, such as: Blood can pool in the atria and form clots. If a clot travels to the brain, it can cause a stroke. The heart muscle may weaken from the irregular blood flow. This can cause heart failure. Atrial fibrillation may start suddenly and stop on its own, or it may become a long-lasting problem. What are the causes? This condition is caused by some heart-related conditions or procedures, including: High blood pressure. This is the most common cause. Heart failure. Heart valve conditions. Inflammation of the sac that surrounds the heart (pericarditis). Heart surgery. Coronary artery disease. Certain heart rhythm disorders, such as Gomez Parkinson White syndrome. Other causes include: Pneumonia. Obstructive sleep apnea. Lung cancer. Thyroid problems, especially if the thyroid is overactive (hyperthyroidism). Excessive alcohol or drug use. Sometimes, the cause of this condition is not known. What increases the risk? This condition is more likely to develop in: Older people. People who smoke. People who have diabetes mellitus. People who are overweight (obese). Athletes who exercise vigorously. People who have a family history. What are the signs or symptoms? Symptoms of this condition include: A feeling that your heart is beating rapidly or irregularly. A feeling of discomfort or pain in your chest. Shortness of breath. Sudden light-headedness or weakness. Getting tired easily during exercise. In some cases, there are no symptoms. How is this diagnosed? Your health care provider may be able to detect atrial fibrillation when taking your pulse. If detected, this condition may be diagnosed with: Electrocardiogram (ECG). Ambulatory ekg monitor tech. This device records your heartbeats for 24 hours or more. Transthoracic echocardiogram (TTE) to evaluate how blood flows through your heart. Transesophageal echocardiogram (ANTON) to view more detailed images of your heart. A stress test. Imaging tests, such as a CT scan or chest X-ray. Blood tests. How is this treated? This condition may be treated with: Medicines to slow down the heart rate or bring the heart's rhythm back to normal. Medicines to prevent blood clots from forming. Electrical cardioversion. This delivers a low-energy shock to the heart to reset its rhythm. Ablation. This procedure destroys the part of the heart tissue that sends abnormal signals. Left atrial appendage occlusion/excision. This seals off a common place in the atria where blood clots can form (left atrial appendage). The goal of treatment is to prevent blood clots from forming and to keep your heart beating at a normal rate and rhythm. Treatment depends on underlying medical conditions and how you feel when you are experiencing fibrillation. Follow these instructions at home: Medicines Take over-the counter and prescription medicines only as told by your health care provider. If your health care provider prescribed a blood-thinning medicine (anticoagulant), take it exactly as told. Taking too much blood-thinning medicine can cause bleeding. Taking too little can enable a blood clot to form and travel to the brain, causing a stroke. Lifestyle Do not use any products that contain nicotine or tobacco, such as cigarettes and e-cigarettes. If you need help quitting, ask your health care provider. Do not drink beverages that contain caffeine, such as coffee, soda, and tea. Follow diet instructions as told by your health care provider. Exercise regularly as told by your health care provider. Do not drink alcohol. General instructions If you have obstructive sleep apnea, manage your condition as told by your health care provider. Maintain a healthy weight. Do not use diet pills unless your health care provider approves. Diet pills may make heart problems worse. Keep all follow-up visits as told by your health care provider. This is important. Contact a health care provider if you: Notice a change in the rate, rhythm, or strength of your heartbeat. Are taking an anticoagulant and you notice increased bruising. Tire more easily when you exercise or exert yourself. Have a sudden change in weight. Get help right away if you have: Chest pain, abdominal pain, sweating, or weakness. Difficulty breathing. Blood in your vomit, stool (feces), or urine. Any symptoms of a stroke. BE FAST is an easy way to remember the main warning signs of a stroke: ?B - Balance. Signs are dizziness, sudden trouble walking, or loss of balance. ?E - Eyes. Signs are trouble seeing or a sudden change in vision. ?F - Face. Signs are sudden weakness or numbness of the face, or the face or eyelid drooping on one side. ?A - Arms. Signs are weakness or numbness in an arm. This happens suddenly and usually on one side of the body. ?S - Speech. Signs are sudden trouble speaking, slurred speech, or trouble understanding what people say. ?T - Time. Time to call emergency services. Write down what time symptoms started. Other signs of a stroke, such as: ?A sudden, severe headache with no known cause. ?Nausea or vomiting. ?Seizure. These symptoms may represent a serious problem that is an emergency. Do not wait to see if the symptoms will go away. Get medical help right away. Call your local emergency services (911 in the [place] Do not drive yourself to the hospital. Summary Atrial fibrillation is a type of irregular or rapid heartbeat (arrhythmia). Symptoms include a feeling that your heart is beating fast or irregularly. In some cases, you may not have symptoms. The condition is treated with medicines to slow down the heart rate or bring the heart's rhythm back to normal. You may also need blood-thinning medicines to prevent blood clots. Get help right away if you have symptoms or signs of a stroke. This information is not intended to replace advice given to you by your health care provider. Make sure you discuss any questions you have with your health care provider. Document Released: 09/09/2006 Document Revised: 10/30/2018 Document Reviewed: 10/31/2018 [employer] Patient Education 2020 [employer]. Follow Up Care 05/23/2024 05:29:02 With:LINA ZENDEJAS MD, [facility], Internal Medicine Address: [facility] [address] [place] [address]- [phone] When: Unknown Comments:PLEASE CALL THIS OFFICE TO SCHEDULE A HOSPITAL FOLLOW UP APPOINTMENT. With:MACI HARDY MD Address: [address] [facility] [address] [place] [address]- [phone] When:07/10/2024 13:00:00 With:HANK MCMULLEN MD Address: [address] [place] [address] [address] [place] [address]- [phone] When:09/25/2024 11:30:00 [facility] 05-26-2024 Discharge summary Date of Service 05/26/24 Discharge Diagnosis A-fib on Tikosyn and digoxin s/p maze with ligation of left atrial appendage without complete appendage closure ABARCA liver cirrhosis Hypothyroidism Status post ASD closure Mild pulmonary hypertension on tadalafil Hospital Course 63-year-old female with past medical history of A-fib on Tikosyn and digoxin s/p maze with ligation of left atrial appendage without complete appendage closure, Abarca liver cirrhosis, hypothyroidism, status post ASD closure, mild pulmonary hypertension on tadalafil who presents with A-fib with RVR. Patient was continued on Tikosyn and digoxin. Her metoprolol was discontinued and nebivolol was started. Patient converted to sinus rhythm during hospital admission and remained in sinus rhythm for greater than 24 hours. Will be discharged with a 30-day ekg monitor tech with plans to follow-up with Dr. Hardy in the outpatient clinic. Allergies Bactrim Itching, Rash Cigarette smoke Watery eye, Nasal drainage Dilaudid Nausea and vomiting, Diarrhea, Dizziness codeine HALLUCINATIONS ibuprofen Itching iodinated radiocontrast dyes Racing heartbeat morphine Itching sulfa drugs Itching, Rash Consults Consult to Physician - Ordered -- 05/23/24 13:14:00 EDT, MACI HARDY MD, Routine, paroxysmal AFib/Aflutter failure of Tikosyn 500 bid and digoxin 0.25 mg Physical Exam Vitals and Measurements T: 36.8 C (Oral) TMIN: 36.6 C (Oral) TMAX: 36.8 C (Oral) HR: 56 (Monitored) RR: 18 BP: 109/40 SpO2: 95% Weight Dosing Weight: 81 kg (05/23/24) General: AAOX3, NAD HEENT: Anicteric sclera, MMM Neck: Trachea midline, no JVD appreciated CVS: RRR, normal S1/S2, no murmurs/rubs/gallops Lung: CTAB, no wheezes/rhonchi/rales Abd: Soft, NT/ND Extrem: WWP, no LE edema Skin: Warm, Intact Neuro: AAOX3, spontaneous movement of all extremities Psych: Appropriate mood & affect Code Status Code Status - Ordered -- 05/23/24 12:48:00 EDT, Full Code, Constant Order Patient Instructions Please stop taking metoprolol and begin taking nebivolol 2.5 mg daily. We will send you with a 30-day ekg monitor tech that we will be delivered to your house. Please follow-up with Dr. Hardy in the outpatient clinic. Medications New Prescription nebivolol (nebivolol 2.5 mg oral tablet)1 tab(s) by mouth every day. Refills: 3. Changed cyanocobalamin (cyanocobalamin 1000 mcg oral tablet)1 tab(s) by mouth once a day. Unchanged aspirin (aspirin 81 mg oral tablet, chewable)1 tab(s) by mouth every day. Refills: 3. bumetanide (bumetanide 1 mg oral tablet)1 tab(s) by mouth every day as needed Swelling/weight gain. Refills: 3. busPIRone (busPIRone 5 mg oral tablet)2 tab(s) by mouth three (3) times a day as needed Anxiety. cholecalciferol (Vitamin D3 1000 intl units oral tablet)1 tab(s) by mouth once a day. digoxin (digoxin 125 mcg (0.125 mg) oral tablet)1 tab(s) by mouth once a day. Refills: 3. dofetilide (Tikosyn 500 mcg oral capsule)1 cap by mouth two (2) times a day. Refills: 3. magnesium oxide (magnesium oxide 250 mg oral tablet)1 tab(s) by mouth two (2) times a day. rivaroxaban (Xarelto 20 mg oral tablet)1 tab(s) by mouth once a day. Refills: 3. tadalafil (Tadalafil (Eqv-Cialis) 20 mg oral tablet)1 tab(s) by mouth two (2) times a day. Refills: 3. Discontinued colchicine (colchicine 0.6 mg oral tablet)1 tab(s) by mouth two (2) times a day. Refills: 1. metoprolol (metoprolol succinate 25 mg oral TABLET extended release)1 tab(s) by mouth once a day. Do not crush or chew (controlled release) 0.5 in afternoon. Refills: 3. metoprolol (metoprolol succinate 25 mg oral TABLET extended release)1 tab(s) by mouth once a day. Do not crush or chew (controlled release) 0.5 in afternoon. Refills: 3. metoprolol (metoprolol succinate 25 mg oral TABLET extended release)1 tab(s) by mouth once a day as needed Control symptoms. potassium chloride (Klor-Con M20 oral tablet, extended release)1 tab(s) by mouth once a day. Refills: 3. Follow Up Follow Up with LINA ZENDEJAS MD, [facility], Internal Medicine When:Within 1-2 days Where:[facility] [place] [address]- [phone] Follow Up Appointments No qualifying data available. Follow Up Labs/Studies Discharge Labs No Follow-up Labs Discharge Studies No Follow-up Studies Discharge Diet Discharge Diet - Ordered -- No changes were made to your diet during your hospital stay. Please resume your pre hospitalization diet on discharge., 05/26/24 10:38:00 EDT Discharge Activity Discharge Activity - Ordered -- NO activity restrictions, 05/26/24 10:38:00 EDT Condition on Discharge Fair Discharge Disposition Home Digitally Signed by JUSTIN MORILLO MD on 05/26/2024 11:21 AM Digitally Signed by GEOFFREY LEE MD [facility] 05-25-2024 Cardiology Progress note Date of Service 05/25/24 Subjective no new concerns. Tolerating beta wyatt well Objective Vitals and Measurements T: 36.7 C (Oral) TMIN: 36.5 C (Axillary) TMAX: 36.9 C (Axillary) HR: 60 (Apical) RR: 18 BP: 104/52 SpO2: 95% Intake and Output 7AM Yesterday to 7AM Today Intake and Output (Last 24 hours) Intake Oral Intake 1200.00 Output Stool Count 1.00 Urine Count 4.00 Total Summary Total Intake 1200.00 Total Output 0.00 Fluid Balance 1200.00 Physical Exam General: AAOX3, NAD HEENT: Anicteric sclera, MMM Neck: Trachea midline, no JVD appreciated CVS: RRR, normal S1/S2, no murmurs/rubs/gallops Lung: CTAB, no wheezes/rhonchi/rales Abd: Soft, NT/ND Extrem: WWP, no LE edema Skin: Warm, Intact Neuro: AAOX3, spontaneous movement of all extremities Psych: Appropriate mood & affect Weight Dosing Weight: 81 kg (05/23/24) Medications Medications (19) Active Scheduled: (9) aspirin 81 mg Chewable 81 mg 1 tab(s), Oral, Daily cholecalciferol 25 mcg tablet (Vit D3 1000 units) 25 mcg 1 tab(s), Oral, qDay cyanocobalamin 500 mcg Tablet 1,000 mcg 2 tab(s), Oral, qDay digoxin 0.125 mg tablet 125 mcg 1 tab(s), Oral, qDay dofetilide 500 mcg capsule 500 mcg 1 cap(s), Oral, BID magnesium oxide 400 mg Tablet 400 mg 1 tab(s), Oral, BID nebivolol 2.5 mg tablet 2.5 mg 1 tab(s), Oral, Daily rivaroxaban 20 mg tablet 20 mg 1 tab(s), Oral, qDay tadalafil 20 mg tablet 20 mg 1 tab(s), Oral, BID Continuous: (0) PRN: (10) acetaminophen 325 mg Tablet 650 mg 2 tab(s), Oral, q6h busPIRone 10 mg Tablet 10 mg 1 tab(s), Oral, TID dextrose 50% Solution Disp syringe 50 mL 12.5 gram(s) 25 mL, IV Push, AsDirected magnesium sulfate 4 gram(s)/100mL PMX 4 g 100 mL, IV Piggyback, AsDirected magnesium sulfate 50% (500mg/mL) 6 g 12 mL, IV Piggyback, AsDirected magnesium sulfate PMX 2 g 50 mL, IV Piggyback, AsDirected potassium chloride (PMX) 20 mEq/100 mL 20 mEq 100 mL, IV Piggyback, AsDirected potassium chloride 20 mEq ER tablet 20 mEq 1 tab(s), Oral, AsDirected potassium chloride 20 mEq ER tablet 40 mEq 2 tab(s), Oral, AsDirected potassium chloride 20 mEq ER tablet 40 mEq 2 tab(s), Oral, AsDirected Lab Results 05/25 03:37 WBC: 6.4 Hgb: 12.9 Hct: 35.9 Platelet: 162 Neutrophil %: 64.0 Glucose Level: 98 Sodium Level: 142 Potassium Level: 3.9 BUN: 10.0 Creatinine Lvl (s): 0.76 05/24 03:04 WBC: 6.2 Hgb: 13.2 Hct: 37.8 Platelet: 163 Neutrophil %: 64.0 Glucose Level: 107 Sodium Level: 143 Potassium Level: 4.3 BUN: 12.0 Creatinine Lvl (s): 0.80 EKG EKG - Completed -- 05/23/24 11:53:00 EDT EKG - Completed -- 05/23/24 15:12:00 EDT Assessment/Plan A-fib on Tikosyn and digoxin s/p maze with ligation of left atrial appendage without complete appendage closure ABARCA liver cirrhosis Hypothyroidism Status post ASD closure Mild pulmonary hypertension on tadalafil Patient in paroxysmal A-fib with RVR with multiple transitions in and out of A-fib. She has been compliant with her Tikosyn and Xarelto at home. Will continue Tikosyn and digoxin at this time Will continue Xarelto at this time EP consulted, per recommendation started on nebivolol 2.5 mg daily as it has a low negative chronotropic effect - tolerating well, heart rate high 50's low 60's Will continue to monitor on telemetry for 24 hours with plans for possible discharge tomorrow and outpatient follow-up with EP Continue home tadalafil Continue home Synthroid Digitally Signed by CLAIRE COLON DO on 05/25/2024 12:19 PM [facility] 05-25-2024 Cardiology Progress note Date of Service 05/25/24 Subjective no new concerns. Tolerating beta wyatt well Objective Vitals and Measurements T: 36.7 C (Oral) TMIN: 36.5 C (Axillary) TMAX: 36.9 C (Axillary) HR: 60 (Apical) RR: 18 BP: 104/52 SpO2: 95% Intake and Output 7AM Yesterday to 7AM Today Intake and Output (Last 24 hours) Intake Oral Intake 1200.00 Output Stool Count 1.00 Urine Count 4.00 Total Summary Total Intake 1200.00 Total Output 0.00 Fluid Balance 1200.00 Physical Exam General: AAOX3, NAD HEENT: Anicteric sclera, MMM Neck: Trachea midline, no JVD appreciated CVS: RRR, normal S1/S2, no murmurs/rubs/gallops Lung: CTAB, no wheezes/rhonchi/rales Abd: Soft, NT/ND Extrem: WWP, no LE edema Skin: Warm, Intact Neuro: AAOX3, spontaneous movement of all extremities Psych: Appropriate mood & affect Weight Dosing Weight: 81 kg (05/23/24) Medications Medications (19) Active Scheduled: (9) aspirin 81 mg Chewable 81 mg 1 tab(s), Oral, Daily cholecalciferol 25 mcg tablet (Vit D3 1000 units) 25 mcg 1 tab(s), Oral, qDay cyanocobalamin 500 mcg Tablet 1,000 mcg 2 tab(s), Oral, qDay digoxin 0.125 mg tablet 125 mcg 1 tab(s), Oral, qDay dofetilide 500 mcg capsule 500 mcg 1 cap(s), Oral, BID magnesium oxide 400 mg Tablet 400 mg 1 tab(s), Oral, BID nebivolol 2.5 mg tablet 2.5 mg 1 tab(s), Oral, Daily rivaroxaban 20 mg tablet 20 mg 1 tab(s), Oral, qDay tadalafil 20 mg tablet 20 mg 1 tab(s), Oral, BID Continuous: (0) PRN: (10) acetaminophen 325 mg Tablet 650 mg 2 tab(s), Oral, q6h busPIRone 10 mg Tablet 10 mg 1 tab(s), Oral, TID dextrose 50% Solution Disp syringe 50 mL 12.5 gram(s) 25 mL, IV Push, AsDirected magnesium sulfate 4 gram(s)/100mL PMX 4 g 100 mL, IV Piggyback, AsDirected magnesium sulfate 50% (500mg/mL) 6 g 12 mL, IV Piggyback, AsDirected magnesium sulfate PMX 2 g 50 mL, IV Piggyback, AsDirected potassium chloride (PMX) 20 mEq/100 mL 20 mEq 100 mL, IV Piggyback, AsDirected potassium chloride 20 mEq ER tablet 20 mEq 1 tab(s), Oral, AsDirected potassium chloride 20 mEq ER tablet 40 mEq 2 tab(s), Oral, AsDirected potassium chloride 20 mEq ER tablet 40 mEq 2 tab(s), Oral, AsDirected Lab Results 05/25 03:37 WBC: 6.4 Hgb: 12.9 Hct: 35.9 Platelet: 162 Neutrophil %: 64.0 Glucose Level: 98 Sodium Level: 142 Potassium Level: 3.9 BUN: 10.0 Creatinine Lvl (s): 0.76 05/24 03:04 WBC: 6.2 Hgb: 13.2 Hct: 37.8 Platelet: 163 Neutrophil %: 64.0 Glucose Level: 107 Sodium Level: 143 Potassium Level: 4.3 BUN: 12.0 Creatinine Lvl (s): 0.80 EKG EKG - Completed -- 05/23/24 11:53:00 EDT EKG - Completed -- 05/23/24 15:12:00 EDT Assessment/Plan A-fib on Tikosyn and digoxin s/p maze with ligation of left atrial appendage without complete appendage closure ABARCA liver cirrhosis Hypothyroidism Status post ASD closure Mild pulmonary hypertension on tadalafil Patient in paroxysmal A-fib with RVR with multiple transitions in and out of A-fib. She has been compliant with her Tikosyn and Xarelto at home. Will continue Tikosyn and digoxin at this time Will continue Xarelto at this time EP consulted, per recommendation started on nebivolol 2.5 mg daily as it has a low negative chronotropic effect - tolerating well, heart rate high 50's low 60's Will continue to monitor on telemetry for 24 hours with plans for possible discharge tomorrow and outpatient follow-up with EP Continue home tadalafil Continue home Synthroid Digitally Signed by CLAIRE COLON DO on 05/25/2024 12:19 PM [facility] 05-25-2024 Note Date of Service 05/25/2024 Chief Complaint Atrial fibrillation Subjective 63-year-old female with past medical history significant for atrial fibrillation status post convergent maze procedure with incomplete left atrial appendage ligation having recurrent atrial fibrillation status post Amplatzer atrial septal device implantation for persistent ASD. She has a history of nonalcoholic cirrhosis, hypertension and hypothyroidism with obstructive sleep apnea and has been maintained on oral dofetilide 500 mcg p.o. twice daily presenting with recurrences of atrial fibrillation. She denies any syncope or loss of consciousness. Currently converted back to sinus rhythm and is undergoing up titration of beta-blockers for rate control. Objective Vitals and Measurements T: 36.7 C (Oral) TMIN: 36.5 C (Axillary) TMAX: 36.9 C (Axillary) HR: 57 (Monitored) RR: 18 BP: 104/52 SpO2: 95% Intake and Output 7AM Yesterday to 7AM Today Intake and Output (Last 24 hours) Intake Oral Intake 1200.00 Output Stool Count 1.00 Urine Count 4.00 Total Summary Total Intake 1200.00 Total Output 0.00 Fluid Balance 1200.00 Physical Exam Physical Exam: General: well appearing, no acute distress Respiratory: normal chest wall expansion, CTA B, no r/r/w, no rubs Cardiovascular: RRR, no m/r/g, Normal S1 and S2 Abdomen: Soft, non-tender, non-distended, normal bowel sounds in all quadrants, no hepatosplenomegaly, no tympany Integumentary: warm, dry, and pink, with no rash, purpura, or petechia Neurological: 2+ patellar reflexes, Cranial Nerves II-XII grossly intact, no tics, normal sensation to pressure and light touch Weight Dosing Weight: 81 kg (05/23/24) Medications Medications (19) Active Scheduled: (9) aspirin 81 mg Chewable 81 mg 1 tab(s), Oral, Daily cholecalciferol 25 mcg tablet (Vit D3 1000 units) 25 mcg 1 tab(s), Oral, qDay cyanocobalamin 500 mcg Tablet 1,000 mcg 2 tab(s), Oral, qDay digoxin 0.125 mg tablet 125 mcg 1 tab(s), Oral, qDay dofetilide 500 mcg capsule 500 mcg 1 cap(s), Oral, BID magnesium oxide 400 mg Tablet 400 mg 1 tab(s), Oral, BID nebivolol 2.5 mg tablet 2.5 mg 1 tab(s), Oral, Daily rivaroxaban 20 mg tablet 20 mg 1 tab(s), Oral, qDay tadalafil 20 mg tablet 20 mg 1 tab(s), Oral, BID Continuous: (0) PRN: (10) acetaminophen 325 mg Tablet 650 mg 2 tab(s), Oral, q6h busPIRone 10 mg Tablet 10 mg 1 tab(s), Oral, TID dextrose 50% Solution Disp syringe 50 mL 12.5 gram(s) 25 mL, IV Push, AsDirected magnesium sulfate 4 gram(s)/100mL PMX 4 g 100 mL, IV Piggyback, AsDirected magnesium sulfate 50% (500mg/mL) 6 g 12 mL, IV Piggyback, AsDirected magnesium sulfate PMX 2 g 50 mL, IV Piggyback, AsDirected potassium chloride (PMX) 20 mEq/100 mL 20 mEq 100 mL, IV Piggyback, AsDirected potassium chloride 20 mEq ER tablet 20 mEq 1 tab(s), Oral, AsDirected potassium chloride 20 mEq ER tablet 40 mEq 2 tab(s), Oral, AsDirected potassium chloride 20 mEq ER tablet 40 mEq 2 tab(s), Oral, AsDirected Lab Results 05/25 03:37 WBC: 6.4 Hgb: 12.9 Hct: 35.9 Platelet: 162 Neutrophil %: 64.0 Glucose Level: 98 Sodium Level: 142 Potassium Level: 3.9 BUN: 10.0 Creatinine Lvl (s): 0.76 05/24 03:04 WBC: 6.2 Hgb: 13.2 Hct: 37.8 Platelet: 163 Neutrophil %: 64.0 Glucose Level: 107 Sodium Level: 143 Potassium Level: 4.3 BUN: 12.0 Creatinine Lvl (s): 0.80 EKG EKG - Completed -- 05/23/24 11:53:00 EDT EKG - Completed -- 05/23/24 15:12:00 EDT Assessment/Plan 1. Atrial fibrillation: Status post convergent maze procedure. Part 2 not completed. Status post atrial septal defect closure with an Amplatzer device with an incomplete left atrial appendage clip placement. Continues to be on anticoagulation and partially maintained with oral dofetilide having recurrences of atrial fibrillation. Tachycardia is noted. Up titration of beta-wyatt currently ongoing. Our recommendation with considerations regarding possible AV junction ablation with left bundle pacemaker implantation. Currently doing well. Hemodynamically stable. Sinus rhythm recovered without any major side effects. Currently on a low-dose beta-wyatt. Will continue to monitor at this stage. No further episodes of atrial fibrillation with rapid ventricular response. Echocardiogram pending. 2. Status post Amplatzer device implantation for atrial septal defect. 3. Comorbidities including hypertension, cirrhosis, gastroesophageal reflux disease and hypothyroidism. Plan: Continue current drug regimen. Proceed with beta-blockers. Check 2D echocardiogram Will readdress options of pacemaker implantation with AV junction ablation later on if she does not respond to the above-mentioned therapies. Digitally Signed by MACI HARDY MD on 05/25/2024 11:28 AM [facility] 05-25-2024 Note Exam Date Time Procedure Performing Provider Status 05/25/24 11:19 AM Echocardiogram, Adult - CV Auth (Verified) [facility] 09-01-2024 Cardiology Progress note Date of Service 05/24/24 Chief Complaint A-fib Subjective No acute events overnight. Patient in sinus rhythm this morning. Objective Vitals and Measurements T: 36.7 C (Oral) TMIN: 36.4 C (Axillary) TMAX: 36.8 C (Axillary) HR: 65 (Apical) RR: 16 BP: 116/58 SpO2: 95% Intake and Output 7AM Yesterday to 7AM Today Intake and Output (Last 24 hours) Intake Oral Intake 1690.00 Output Stool Count 0.00 Urine Count 5.00 Total Summary Total Intake 1690.00 Total Output 0.00 Fluid Balance 1690.00 Physical Exam General: AAOX3, NAD HEENT: Anicteric sclera, MMM Neck: Trachea midline, no JVD appreciated CVS: RRR, normal S1/S2, no murmurs/rubs/gallops Lung: CTAB, no wheezes/rhonchi/rales Abd: Soft, NT/ND Extrem: WWP, no LE edema Skin: Warm, Intact Neuro: AAOX3, spontaneous movement of all extremities Psych: Appropriate mood & affect Weight Dosing Weight: 81 kg (05/23/24) Medications Medications (19) Active Scheduled: (9) aspirin 81 mg Chewable 81 mg 1 tab(s), Oral, Daily cholecalciferol 25 mcg tablet (Vit D3 1000 units) 25 mcg 1 tab(s), Oral, qDay cyanocobalamin 500 mcg Tablet 1,000 mcg 2 tab(s), Oral, qDay digoxin 0.125 mg tablet 125 mcg 1 tab(s), Oral, qDay dofetilide 500 mcg capsule 500 mcg 1 cap(s), Oral, BID magnesium oxide 400 mg Tablet 400 mg 1 tab(s), Oral, BID nebivolol 2.5 mg tablet 2.5 mg 1 tab(s), Oral, Daily rivaroxaban 20 mg tablet 20 mg 1 tab(s), Oral, qDay tadalafil 20 mg tablet 20 mg 1 tab(s), Oral, BID Continuous: (0) PRN: (10) acetaminophen 325 mg Tablet 650 mg 2 tab(s), Oral, q6h busPIRone 10 mg Tablet 10 mg 1 tab(s), Oral, TID dextrose 50% Solution Disp syringe 50 mL 12.5 gram(s) 25 mL, IV Push, AsDirected magnesium sulfate 4 gram(s)/100mL PMX 4 g 100 mL, IV Piggyback, AsDirected magnesium sulfate 50% (500mg/mL) 6 g 12 mL, IV Piggyback, AsDirected magnesium sulfate PMX 2 g 50 mL, IV Piggyback, AsDirected potassium chloride (PMX) 20 mEq/100 mL 20 mEq 100 mL, IV Piggyback, AsDirected potassium chloride 20 mEq ER tablet 20 mEq 1 tab(s), Oral, AsDirected potassium chloride 20 mEq ER tablet 40 mEq 2 tab(s), Oral, AsDirected potassium chloride 20 mEq ER tablet 40 mEq 2 tab(s), Oral, AsDirected Lab Results 05/24 03:04 WBC: 6.2 Hgb: 13.2 Hct: 37.8 Platelet: 163 Neutrophil %: 64.0 Glucose Level: 107 Sodium Level: 143 Potassium Level: 4.3 BUN: 12.0 Creatinine Lvl (s): 0.80 05/23 13:55 WBC: 6.2 Hgb: 13.6 Hct: 37.9 Platelet: 153 Neutrophil %: 69.8 Glucose Level: 108 Sodium Level: 144 Potassium Level: 4.0 BUN: 12.0 Creatinine Lvl (s): 0.70 EKG Electrocardiogram (EKG) - InProcess -- 05/23/24 15:12:00 EDT Assessment/Plan A-fib on Tikosyn and digoxin s/p maze with ligation of left atrial appendage without complete appendage closure ABARCA liver cirrhosis Hypothyroidism Status post ASD closure Mild pulmonary hypertension on tadalafil Patient in paroxysmal A-fib with RVR with multiple transitions in and out of A- fib. She has been compliant with her Tikosyn and Xarelto at home. Will continue Tikosyn and digoxin at this time Will continue Xarelto at this time EP consulted, per recommendation started on nebivolol 2.5 mg daily as it has a low negative chronotropic effect Will continue to monitor on telemetry for 24 hours with plans for possible discharge tomorrow and outpatient follow-up with EP Continue home tadalafil Continue home Synthroid Digitally Signed by JUSTIN MORILLO MD on 05/24/2024 12:34 PM [id number] Consult note Date of Service 05/24/2024 Reason for Consultation Atrial fibrillation History of Present Illness 63-year-old female with past medical history significant for atrial fibrillation status post convergent maze procedure with incomplete left atrial appendage ligation having recurrent atrial fibrillation status post Amplatzer atrial septal device implantation for persistent ASD. She has a history ofnonalcoholic cirrhosis, hypertension and hypothyroidism with obstructive sleep apnea and has been maintained on oral dofetilide 500 mcg p.o. twice daily presenting with recurrences of atrial fibrillation. She denies any syncope or loss of consciousness. Currently converted back to sinus rhythm and is undergoing up titration of beta-blockers for rate control. Review of Systems A complete 13 point review of systems is essentially unremarkable other than the above. Pertinent positives and negatives listed in the HPI. Physical Exam Vitals and Measurements T: 36.7 C (Oral) TMIN: 36.4 C (Axillary) TMAX: 36.8 C (Axillary) HR: 65 (Apical) RR: 16 BP: 116/58 SpO2: 95% Weight Dosing Weight: 81 kg (05/23/24) Physical Exam: General: well appearing, no acute distress Respiratory: normal chest wall expansion, CTA B, no r/r/w, no rubs Cardiovascular: RRR, no m/r/g, Normal S1 and S2 Abdomen: Soft, non-tender, non-distended, normal bowel sounds in all quadrants, no hepatosplenomegaly, no tympany Integumentary: warm, dry, and pink, with no rash, purpura, or petechia Neurological: 2+ patellar reflexes, Cranial Nerves II-XII grossly intact, no tics, normal sensationto pressure and light touch Lab Results 05/24 03:04 WBC: 6.2 Hgb: 13.2 Hct: 37.8 Platelet: 163 Neutrophil %: 64.0 Glucose Level: 107 Sodium Level: 143 Potassium Level: 4.3 BUN: 12.0 Creatinine Lvl (s): 0.80 05/23 13:55 WBC: 6.2 Hgb: 13.6 Hct: 37.9 Platelet: 153 Neutrophil %: 69.8 Glucose Level: 108 Sodium Level: 144 Potassium Level: 4.0 BUN: 12.0 Creatinine Lvl (s): 0.70 Assessment/Plan 1. Atrial fibrillation: Status post convergent maze procedure. Part 2 not completed. Status post atrial septal defect closure with an Amplatzer device with an incomplete left atrial appendage clip placement. Continues to beon anticoagulation and partially maintained with oral dofetilide having recurrences of atrial fibrillation. Tachycardia is noted. Up titration of beta-wyatt currently ongoing. Our recommendation with considerations regarding possible AV junction ablation with left bundle pacemaker implantation. Currently doing well. Hemodynamically stable. Sinus rhythm recovered without any major side effects. 2. Status post Amplatzer device implantation for atrial septal defect. 3. Comorbidities including hypertension, cirrhosis, gastroesophageal reflux disease and hypothyroidism. Plan: Continue current drug regimen. Proceed with beta-blockers. Will readdress options of pacemaker implantation with AV junction ablation later on. Problem List/Past Medical History Ongoing Abnormality of left atrial appendage Acute blood loss anemia Anxiety ASD secundum Atrial fibrillation Atrial fibrillation Atrial flutter with controlled response Back pain CHEST PAIN, ATYPICAL CHEST WALL PAIN Cirrhosis, non-alcoholic Eczema Encounter for surgical aftercare following surgery of circulatory system GERD - Gastro-esophageal reflux disease Hypertension Migraine MTHFR gene mutation FARSHAD (obstructive sleep apnea) Osteoarthritis Pericarditis REFUSED INFLUENZA VACCINE REFUSED PNEUMOCOCCAL VACCINE STEATOHEPATITIS, NONALCOHOLIC SYNCOPE, NEAR Thyroid enlargement Urinary incontinence Historical DEHYDRATION DIARRHEA Procedure/Surgical History Cholecystectomy: 11/2023 Cardioversion: 05/03/23 Transesophageal echocardiogram: 05/03/23 Echocardiogram: 05/02/23 Maze procedure: 04/30/23 Echocardiogram: 02/06/23 Holter monitor: 11/17/22 Cardioversion: 10/09/22 Transesophageal echocardiogram: 09/14/22 Cardioversion: 09/14/22 Cardiac catheterization: 08/29/22 Echocardiogram: 08/15/22 Echocardiogram: 08/08/22 Echocardiogram: 08/07/22 Echocardiogram: 08/07/22 Transesophageal echocardiogram: 08/07/22 PFO - Closure of patent foramen ovale: 08/07/22 Transesophageal echocardiogram: 06/15/22 Spirometry: 04/24/22 Cardiac catheterization: 04/13/22 Dilation and curettage: 2015 Hysteroscopy: 2015 Colonoscopy: 2011 Bunionectomy: 2007 Tubal ligation: 1992 Suspension of bladder: 1991 Tonsillectomy: 1963 Medications Inpatient acetaminophen, 650 mg= 2 tab(s), Oral, q6h, PRN aspirin 81 mg oral tablet, chewable, 81 mg= 1 tab(s), Oral, Daily busPIRone, 10 mg= 1 tab(s), Oral, TID, PRN Dextrose 50% IV Push, 12.5 gram(s)= 25 mL, IV Push, AsDirected, PRN digoxin, 125 mcg= 1 tab(s), Oral, qDay magnesium oxide, 400 mg= 1 tab(s), Oral, BID magnesium sulfate for IV bolus, 2 gram(s)= 50 mL, IV Piggyback, AsDirected, PRN magnesium sulfate for IV bolus, 4 gram(s)= 100 mL, IV Piggyback, AsDirected, PRN magnesium sulfate for IV bolus nebivolol, 2.5 mg= 1 tab(s), Oral, Daily potassium chloride, 20 mEq= 1 tab(s), Oral, AsDirected, PRN potassium chloride, 40 mEq= 2 tab(s), Oral, AsDirected, PRN potassium chloride, 40 mEq= 2 tab(s), Oral, AsDirected, PRN potassium chloride bolus, 20 mEq= 100 mL, IV Piggyback, AsDirected, PRN tadalafil, 20 mg= 1 tab(s), Oral, BID Tikosyn, 500 mcg= 1 cap(s), Oral, BID Vitamin B12, 1000 mcg= 2 tab(s), Oral, qDay Vitamin D3 25 mcg (1000 intl units) oral tablet, 25 mcg= 1 tab(s), Oral, qDay Xarelto, 20 mg= 1 tab(s), Oral, qDay Home aspirin 81 mg oral tablet, chewable, 81 mg= 1 tab(s), Oral, Daily, 3 refills bumetanide 1 mg oral tablet, 1 mg= 1 tab(s), Oral, Daily, PRN, 3 refills, Not taking busPIRone 5 mg oral tablet, 10 mg= 2 tab(s), Oral, TID, PRN colchicine 0.6 mg oral tablet, 0.6 mg= 1 tab(s), Oral, BID, 1 refills, Not taking cyanocobalamin 1000 mcg oral tablet, 1000 mcg= 1 tab(s), Oral, qDay digoxin 125 mcg (0.125 mg) oral tablet, 125 mcg= 1 tab(s), Oral, qDay, 3 refills Klor-Con M20 oral tablet, extended release, 20 mEq= 1 tab(s), Oral, qDay, 3 refills, Not taking magnesium oxide 250 mg oral tablet, 250 mg= 1 tab(s), Oral, BID metoprolol succinate 25 mg oral TABLET extended release, 25 mg= 1 tab(s), Oral, qDay, 3 refills, Not taking metoprolol succinate 25 mg oral TABLET extended release, 25 mg= 1 tab(s), Oral, qDay, 3 refills, Not taking metoprolol succinate 25 mg oral TABLET extended release, 25 mg= 1 tab(s), Oral, qDay, PRN Tadalafil (Eqv-Cialis) 20 mg oral tablet, 20 mg= 1 tab(s), Oral, BID, 3 refills Tikosyn 500 mcg oral capsule, 500 mcg= 1 cap(s), Oral, BID, 3 refills Vitamin B12 1000 mcg oral tablet, See Instructions, Not taking Vitamin D3 1000 intl units oral tablet, 1000 unit(s)= 1 tab(s), Oral, qDay Xarelto 20 mg oral tablet, 20 mg= 1 tab(s), Oral, qDay, 3 refills Allergies Bactrim Itching, Rash Cigarette smoke Watery eye, Nasal drainage Dilaudid Nausea and vomiting, Diarrhea, Dizziness codeine HALLUCINATIONS ibuprofen Itching iodinated radiocontrast dyes Racing heartbeat morphine Itching sulfa drugs Itching, Rash Social History Smoking Status - 07/22/2016 Never smoker Alcohol Use: Never., 09/20/2019 Employment/School Status: Employed. Activity Level: Occasional physical work., 10/08/2019 Home/Environment Living situation: Home/Independent. Domestic Concerns: None, Denies. Lives In: Multilevel home, 1stfloor bedroom, 1st floor bathroom, 1st floor laundry. Current Home Treatments Blood Pressure monitoring, CPAP machine. Marital Status: ., 05/23/2024 Domestic Concerns: Denies., 08/29/2022 Nutrition/Health Type of diet: Low sodium. Appetite Good. Eating Difficulties None. Caffeine intake amount: no caffeine intake., 07/31/2022 Substance Abuse Use: Never., 10/08/2019 Tobacco Nicotine Use: Never (less than 100 in lifetime)., 09/20/2019 Family History Atrial fibrillation: Mother and Sister. Cancer: Father and Brother. Cardiac pacemaker: Father and Sister. DVT - Deep vein thrombosis: Negative: Daughter. Deep vein thrombosis: Daughter. Heart failure: Father. High blood pressure: Mother. Leukemia: Brother. Malignant tumor of lung: Father. Malignant tumor of ovary: Sister. Pulmonary embolism: Daughter.Negative: Daughter. Stroke: Mother and Sister. Health Status Family Member(s) Family Member(s) Relationship: Father, Age: 79 Years, Cause: lung cancer Immunizations SARS-CoV-2 mRNA (tozinameran) vaccine: 0.3 unknown unit (10/19/21) SARS-CoV-2 mRNA (tozinameran) vaccine: 0 unknown unit (10/07/21) tetanus/diphth/pertuss (Tdap) adult/adol: 0 unknown unit (06/25/21) Digitally Signed by MACI HARDY MD on 05/24/2024 01:23 PM [id number] Card[facility] Progress note Date of Service 05/24/24 Chief Complaint A-fib Subjective No acute events overnight. Patient in sinus rhythm this morning. Objective Vitals and Measurements T: 36.7 C (Oral) TMIN: 36.4 C (Axillary) TMAX: 36.8 C (Axillary) HR: 65 (Apical) RR: 16 BP: 116/58 SpO2: 95% Intake and Output 7AM Yesterday to 7AM Today Intake and Output (Last 24 hours) Intake Oral Intake 1690.00 Output Stool Count 0.00 Urine Count 5.00 Total Summary Total Intake 1690.00 Total Output 0.00 Fluid Balance 1690.00 Physical Exam General: AAOX3, NAD HEENT: Anicteric sclera, MMM Neck: Trachea midline, no JVD appreciated CVS: RRR, normal S1/S2, no murmurs/rubs/gallops Lung: CTAB, no wheezes/rhonchi/rales Abd: Soft, NT/ND Extrem: WWP, no LE edema Skin: Warm, Intact Neuro: AAOX3, spontaneous movement of all extremities Psych: Appropriate mood & affect Weight Dosing Weight: 81 kg (05/23/24) Medications Medications (19) Active Scheduled: (9) aspirin 81 mg Chewable 81 mg 1 tab(s), Oral, Daily cholecalciferol 25 mcg tablet (Vit D3 1000 units) 25 mcg 1 tab(s), Oral, qDay cyanocobalamin 500 mcg Tablet 1,000 mcg 2 tab(s), Oral, qDay digoxin 0.125 mg tablet 125 mcg 1 tab(s), Oral, qDay dofetilide 500 mcg capsule 500 mcg 1 cap(s), Oral, BID magnesium oxide 400 mg Tablet 400 mg 1 tab(s), Oral, BID nebivolol 2.5 mg tablet 2.5 mg 1 tab(s), Oral, Daily rivaroxaban 20 mg tablet 20 mg 1 tab(s), Oral, qDay tadalafil 20 mg tablet 20 mg 1 tab(s), Oral, BID Continuous: (0) PRN: (10) acetaminophen 325 mg Tablet 650 mg 2 tab(s), Oral, q6h busPIRone 10 mg Tablet 10 mg 1 tab(s), Oral, TID dextrose 50% Solution Disp syringe 50 mL 12.5 gram(s) 25 mL, IV Push, AsDirected magnesium sulfate 4 gram(s)/100mL PMX 4 g 100 mL, IV Piggyback, AsDirected magnesium sulfate 50% (500mg/mL) 6 g 12 mL, IV Piggyback, AsDirected magnesium sulfate PMX 2 g 50 mL, IV Piggyback, AsDirected potassium chloride (PMX) 20 mEq/100 mL 20 mEq 100 mL, IV Piggyback, AsDirected potassium chloride 20 mEq ER tablet 20 mEq 1 tab(s), Oral, AsDirected potassium chloride 20 mEq ER tablet 40 mEq 2 tab(s), Oral, AsDirected potassium chloride 20 mEq ER tablet 40 mEq 2 tab(s), Oral, AsDirected Lab Results 05/24 03:04 WBC: 6.2 Hgb: 13.2 Hct: 37.8 Platelet: 163 Neutrophil %: 64.0 Glucose Level: 107 Sodium Level: 143 Potassium Level: 4.3 BUN: 12.0 Creatinine Lvl (s): 0.80 05/23 13:55 WBC: 6.2 Hgb: 13.6 Hct: 37.9 Platelet: 153 Neutrophil %: 69.8 Glucose Level: 108 Sodium Level: 144 Potassium Level: 4.0 BUN: 12.0 Creatinine Lvl (s): 0.70 EKG Electrocardiogram (EKG) - InProcess -- 05/23/24 15:12:00 EDT Assessment/Plan A-fib on Tikosyn and digoxin s/p maze with ligation of left atrial appendage without complete appendage closure ABARCA liver cirrhosis Hypothyroidism Status post ASD closure Mild pulmonary hypertension on tadalafil Patient in paroxysmal A-fib with RVR with multiple transitions in and out of A- fib. She has been compliant with her Tikosyn and Xarelto at home. Will continue Tikosyn and digoxin at this time Will continue Xarelto at this time EP consulted, per recommendation started on nebivolol 2.5 mg daily as it has a low negative chronotropic effect Will continue to monitor on telemetry for 24 hours with plans for possible discharge tomorrow and outpatient follow-up with EP Continue home tadalafil Continue home Synthroid Digitally Signed by JUSTIN MORILLO MD on 05/24/2024 12:34 PM [facility] [id number] History and physical note Date of Service 05/23/24 Chief Complaint Afib with RVR History of Present Illness 63-year-old female with past medical history of A-fib on Tikosyn and digoxin s/p maze with ligationof left atrial appendage without complete appendage closure, Abarca liver cirrhosis, hypothyroidism, status post ASD closure, mild pulmonary hypertension on tadalafil who presents with palpitations found to be in and out of A-fib with RVR. Patient has longstanding history of A-fib with RVR and follows with Dr. Hardy in clinic. She has been consistently taking her Tikosyn and Xarelto. Today she presented with A-fib with rates up into the 130s that spontaneously resolve. She missed her morning dose of Tikosyn and digoxin given she wasin the ED, however was given it in the morning. Labs significant for potassium 4.0, magnesium 1.9, BNP 655. Troponins negative. TSH 2.78. EP was consulted, pending recommendations. Review of Systems Per HPI, Complete ROS otherwise negative Physical Exam Vitals and Measurements T: 36.5 C (Axillary) TMIN: 36.4 C (Oral) TMAX: 36.5 C (Axillary) HR: 81 (Monitored) RR: 16 BP: 130/68 SpO2: 92% HT: 165.1 cm WT: 81 kg BMI: 29.72 Weight Dosing Weight: 81 kg (05/23/24) General: AAOX3, NAD HEENT: Anicteric sclera, MMM Neck: Trachea midline, no JVD appreciated CVS: RRR, normal S1/S2, no murmurs/rubs/gallops Lung: CTAB, no wheezes/rhonchi/rales Abd: Soft, NT/ND Extrem: WWP, no LE edema Skin: Warm, Intact Neuro: AAOX3, spontaneous movement of all extremities Psych: Appropriate mood & affect Lab Results 05/23 13:55 WBC: 6.2 Hgb: 13.6 Hct: 37.9 Platelet: 153 Neutrophil %: 69.8 Glucose Level: 108 Sodium Level: 144 Potassium Level: 4.0 BUN: 12.0 Creatinine Lvl (s): 0.70 Assessment/Plan A-fib on Tikosyn and digoxin s/p maze with ligation of left atrial appendage without complete appendage closure ABARCA liver cirrhosis Hypothyroidism Status post ASD closure Mild pulmonary hypertension on tadalafil Patient in paroxysmal A-fib with RVR with multiple transitions in and out of A- fib. She has been compliant with her Tikosyn and Xarelto at home. Will continue Tikosyn and digoxin at this time Will continue Xarelto at this time Will consult EP for further evaluation Continue home tadalafil Continue home Synthroid Problem List/Past Medical History Ongoing Abnormality of left atrial appendage Acute blood loss anemia Anxiety ASD secundum Atrial fibrillation Atrial fibrillation Atrial flutter with controlled response Back pain CHEST PAIN, ATYPICAL CHEST WALL PAIN Cirrhosis, non-alcoholic Eczema Encounter for surgical aftercare following surgery of circulatory system GERD - Gastro-esophageal reflux disease Hypertension Migraine MTHFR gene mutation FARSHAD (obstructive sleep apnea) Osteoarthritis Pericarditis REFUSED INFLUENZA VACCINE REFUSED PNEUMOCOCCAL VACCINE STEATOHEPATITIS, NONALCOHOLIC SYNCOPE, NEAR Thyroid enlargement Urinary incontinence Historical DEHYDRATION DIARRHEA Procedure/Surgical History Cholecystectomy: 11/2023 Cardioversion: 05/03/23 Transesophageal echocardiogram: 05/03/23 Echocardiogram: 05/02/23 Maze procedure: 04/30/23 Echocardiogram: 02/06/23 Holter monitor: 11/17/22 Cardioversion: 10/09/22 Transesophageal echocardiogram: 09/14/22 Cardioversion: 09/14/22 Cardiac catheterization: 08/29/22 Echocardiogram: 08/15/22 Echocardiogram: 08/08/22 Echocardiogram: 08/07/22 Echocardiogram: 08/07/22 Transesophageal echocardiogram: 08/07/22 PFO - Closure of patent foramen ovale: 08/07/22 Transesophageal echocardiogram: 06/15/22 Spirometry: 04/24/22 Cardiac catheterization: 04/13/22 Dilation and curettage: 2016 Hysteroscopy: 2015 Colonoscopy: 2011 Bunionectomy: 2007 Tubal ligation: 1992 Suspension of bladder: 1991 Tonsillectomy: 1964 Medications Home Medications (16) Active aspirin 81 mg oral tablet, chewable 81 mg = 1 tab(s), Oral, Daily bumetanide 1 mg oral tablet 1 mg = 1 tab(s), PRN, Oral, Daily busPIRone 5 mg oral tablet 10 mg = 2 tab(s), PRN, Oral, TID colchicine 0.6 mg oral tablet 0.6 mg = 1 tab(s), Oral, BID cyanocobalamin 1000 mcg oral tablet 1,000 mcg = 1 tab(s), Oral, qDay digoxin 125 mcg (0.125 mg) oral tablet 125 mcg = 1 tab(s), Oral, qDay Klor-Con M20 oral tablet, extended release 20 mEq = 1 tab(s), Oral, qDay magnesium oxide 250 mg oral tablet 250 mg = 1 tab(s), Oral, BID metoprolol succinate 25 mg oral TABLET extended release 25 mg = 1 tab(s), Oral, qDay metoprolol succinate 25 mg oral TABLET extended release 25 mg = 1 tab(s), Oral, qDay metoprolol succinate 25 mg oral TABLET extended release 25 mg = 1 tab(s), PRN, Oral, qDay Tadalafil (Eqv-Cialis) 20 mg oral tablet 20 mg = 1 tab(s), Oral, BID Tikosyn 500 mcg oral capsule 500 mcg = 1 cap(s), Oral, BID Vitamin B12 1000 mcg oral tablet See Instructions Vitamin D3 1000 intl units oral tablet 1,000 unit(s) = 1 tab(s), Oral, qDay Xarelto 20 mg oral tablet 20 mg = 1 tab(s), Oral, qDay Allergies Bactrim Itching, Rash Cigarette smoke Watery eye, Nasal drainage Dilaudid Nausea and vomiting, Diarrhea, Dizziness codeine HALLUCINATIONS ibuprofen Itching iodinated radiocontrast dyes Racing heartbeat morphine Itching sulfa drugs Itching, Rash Social History Smoking Status - 07/22/2016 Never smoker Alcohol Use: Never., 09/20/2019 Employment/School Status: Employed. Activity Level: Occasional physical work., 10/08/2019 Home/Environment Living situation: Home/Independent. Domestic Concerns: None, Denies. Lives In: Multilevel home, 1stfloor bedroom, 1st floor bathroom, 1st floor laundry. Current Home Treatments Blood Pressure monitoring, CPAP machine. Marital Status: ., 05/23/2024 Domestic Concerns: Denies., 08/29/2022 Nutrition/Health Type of diet: Low sodium. Appetite Good. Eating Difficulties None. Caffeine intake amount: no caffeine intake., 07/31/2022 Substance Abuse Use: Never., 10/08/2019 Tobacco Nicotine Use: Never (less than 100 in lifetime)., 09/20/2019 Family History Atrial fibrillation: Mother and Sister. Cancer: Father and Brother. Cardiac pacemaker: Father and Sister. DVT - Deep vein thrombosis: Negative: Daughter. Deep vein thrombosis: Daughter. Heart failure: Father. High blood pressure: Mother. Leukemia: Brother. Malignant tumor of lung: Father. Malignant tumor of ovary: Sister. Pulmonary embolism: Daughter.Negative: Daughter. Stroke: Mother and Sister. Health Status Family Member(s) Family Member(s) Relationship: Father, Age: 79 Years, Cause: lung cancer Immunizations SARS-CoV-2 mRNA (tozinameran) vaccine: 0.3 unknown unit (10/19/21) SARS-CoV-2 mRNA (tozinameran) vaccine: 0 unknown unit (10/07/21) tetanus/diphth/pertuss (Tdap) adult/adol: 0 unknown unit (06/25/21) Code Status Code Status - Ordered -- 05/23/24 12:48:00 EDT, Full Code, Constant Order Digitally Signed by JUSTIN MORILLO MD on 05/23/2024 05:08 PM [facility] [id number] History and physical note Date of Service 05/23/24 Chief Complaint Afib with RVR History of Present Illness 63-year-old female with past medical history of A-fib on Tikosyn and digoxin s/p maze with ligationof left atrial appendage without complete appendage closure, Abarca liver cirrhosis, hypothyroidism, status post ASD closure, mild pulmonary hypertension on tadalafil who presents with palpitations found to be in and out of A-fib with RVR. Patient has longstanding history of A-fib with RVR and follows with Dr. Hardy in clinic. She has been consistently taking her Tikosyn and Xarelto. Today she presented with A-fib with rates up into the 130s that spontaneously resolve. She missed her morning dose of Tikosyn and digoxin given she wasin the ED, however was given it in the morning. Labs significant for potassium 4.0, magnesium 1.9, BNP 655. Troponins negative. TSH 2.78. EP was consulted, pending recommendations. Review of Systems Per HPI, Complete ROS otherwise negative Physical Exam Vitals and Measurements T: 36.5 C (Axillary) TMIN: 36.4 C (Oral) TMAX: 36.5 C (Axillary) HR: 81 (Monitored) RR: 16 BP: 130/68 SpO2: 92% HT: 165.1 cm WT: 81 kg BMI: 29.72 Weight Dosing Weight: 81 kg (05/23/24) General: AAOX3, NAD HEENT: Anicteric sclera, MMM Neck: Trachea midline, no JVD appreciated CVS: RRR, normal S1/S2, no murmurs/rubs/gallops Lung: CTAB, no wheezes/rhonchi/rales Abd: Soft, NT/ND Extrem: WWP, no LE edema Skin: Warm, Intact Neuro: AAOX3, spontaneous movement of all extremities Psych: Appropriate mood & affect Lab Results 05/23 13:55 WBC: 6.2 Hgb: 13.6 Hct: 37.9 Platelet: 153 Neutrophil %: 69.8 Glucose Level: 108 Sodium Level: 144 Potassium Level: 4.0 BUN: 12.0 Creatinine Lvl (s): 0.70 Assessment/Plan A-fib on Tikosyn and digoxin s/p maze with ligation of left atrial appendage without complete appendage closure ABARCA liver cirrhosis Hypothyroidism Status post ASD closure Mild pulmonary hypertension on tadalafil Patient in paroxysmal A-fib with RVR with multiple transitions in and out of A- fib. She has been compliant with her Tikosyn and Xarelto at home. Will continue Tikosyn and digoxin at this time Will continue Xarelto at this time Will consult EP for further evaluation Continue home tadalafil Continue home Synthroid Problem List/Past Medical History Ongoing Abnormality of left atrial appendage Acute blood loss anemia Anxiety ASD secundum Atrial fibrillation Atrial fibrillation Atrial flutter with controlled response Back pain CHEST PAIN, ATYPICAL CHEST WALL PAIN Cirrhosis, non-alcoholic Eczema Encounter for surgical aftercare following surgery of circulatory system GERD - Gastro-esophageal reflux disease Hypertension Migraine MTHFR gene mutation FARSHAD (obstructive sleep apnea) Osteoarthritis Pericarditis REFUSED INFLUENZA VACCINE REFUSED PNEUMOCOCCAL VACCINE STEATOHEPATITIS, NONALCOHOLIC SYNCOPE, NEAR Thyroid enlargement Urinary incontinence Historical DEHYDRATION DIARRHEA Procedure/Surgical History Cholecystectomy: 11/2023 Cardioversion: 05/03/23 Transesophageal echocardiogram: 05/03/23 Echocardiogram: 05/02/23 Maze procedure: 04/30/23 Echocardiogram: 02/06/23 Holter monitor: 11/17/22 Cardioversion: 10/09/22 Transesophageal echocardiogram: 09/14/22 Cardioversion: 09/14/22 Cardiac catheterization: 08/29/22 Echocardiogram: 08/15/22 Echocardiogram: 08/08/22 Echocardiogram: 08/07/22 Echocardiogram: 08/07/22 Transesophageal echocardiogram: 08/07/22 PFO - Closure of patent foramen ovale: 08/07/22 Transesophageal echocardiogram: 06/15/22 Spirometry: 04/24/22 Cardiac catheterization: 04/13/22 Dilation and curettage: 2016 Hysteroscopy: 2016 Colonoscopy: 2011 Bunionectomy: 2007 Tubal ligation: 1992 Suspension of bladder: 1991 Tonsillectomy: 1964 Medications Home Medications (16) Active aspirin 81 mg oral tablet, chewable 81 mg = 1 tab(s), Oral, Daily bumetanide 1 mg oral tablet 1 mg = 1 tab(s), PRN, Oral, Daily busPIRone 5 mg oral tablet 10 mg = 2 tab(s), PRN, Oral, TID colchicine 0.6 mg oral tablet 0.6 mg = 1 tab(s), Oral, BID cyanocobalamin 1000 mcg oral tablet 1,000 mcg = 1 tab(s), Oral, qDay digoxin 125 mcg (0.125 mg) oral tablet 125 mcg = 1 tab(s), Oral, qDay Klor-Con M20 oral tablet, extended release 20 mEq = 1 tab(s), Oral, qDay magnesium oxide 250 mg oral tablet 250 mg = 1 tab(s), Oral, BID metoprolol succinate 25 mg oral TABLET extended release 25 mg = 1 tab(s), Oral, qDay metoprolol succinate 25 mg oral TABLET extended release 25 mg = 1 tab(s), Oral, qDay metoprolol succinate 25 mg oral TABLET extended release 25 mg = 1 tab(s), PRN, Oral, qDay Tadalafil (Eqv-Cialis) 20 mg oral tablet 20 mg = 1 tab(s), Oral, BID Tikosyn 500 mcg oral capsule 500 mcg = 1 cap(s), Oral, BID Vitamin B12 1000 mcg oral tablet See Instructions Vitamin D3 1000 intl units oral tablet 1,000 unit(s) = 1 tab(s), Oral, qDay Xarelto 20 mg oral tablet 20 mg = 1 tab(s), Oral, qDay Allergies Bactrim Itching, Rash Cigarette smoke Watery eye, Nasal drainage Dilaudid Nausea and vomiting, Diarrhea, Dizziness codeine HALLUCINATIONS ibuprofen Itching iodinated radiocontrast dyes Racing heartbeat morphine Itching sulfa drugs Itching, Rash Social History Smoking Status - 07/22/2016 Never smoker Alcohol Use: Never., 09/20/2019 Employment/School Status: Employed. Activity Level: Occasional physical work., 10/08/2019 Home/Environment Living situation: Home/Independent. Domestic Concerns: None, Denies. Lives In: Multilevel home, 1stfloor bedroom, 1st floor bathroom, 1st floor laundry. Current Home Treatments Blood Pressure monitoring, CPAP machine. Marital Status: ., 05/23/2024 Domestic Concerns: Denies., 08/29/2022 Nutrition/Health Type of diet: Low sodium. Appetite Good. Eating Difficulties None. Caffeine intake amount: no caffeine intake., 07/31/2022 Substance Abuse Use: Never., 10/08/2019 Tobacco Nicotine Use: Never (less than 100 in lifetime)., 09/20/2019 Family History Atrial fibrillation: Mother and Sister. Cancer: Father and Brother. Cardiac pacemaker: Father and Sister. DVT - Deep vein thrombosis: Negative: Daughter. Deep vein thrombosis: Daughter. Heart failure: Father. High blood pressure: Mother. Leukemia: Brother. Malignant tumor of lung: Father. Malignant tumor of ovary: Sister. Pulmonary embolism: Daughter.Negative: Daughter. Stroke: Mother and Sister. Health Status Family Member(s) Family Member(s) Relationship: Father, Age: 79 Years, Cause: lung cancer Immunizations SARS-CoV-2 mRNA (tozinameran) vaccine: 0.3 unknown unit (10/19/21) SARS-CoV-2 mRNA (tozinameran) vaccine: 0 unknown unit (10/07/21) tetanus/diphth/pertuss (Tdap) adult/adol: 0 unknown unit (06/25/21) Code Status Code Status - Ordered -- 05/23/24 12:48:00 EDT, Full Code, Constant Order Digitally Signed by JUSTIN MORILLO MD on 05/23/2024 05:08 PM [facility] [id number] History and physical note Date of Service 05/23/24 Chief Complaint Afib with RVR History of Present Illness 63-year-old female with past medical history of A-fib on Tikosyn and digoxin s/p maze with ligationof left atrial appendage without complete appendage closure, Abarca liver cirrhosis, hypothyroidism, status post ASD closure, mild pulmonary hypertension on tadalafil who presents with palpitations found to be in and out of A-fib with RVR. Patient has longstanding history of A-fib with RVR and follows with Dr. Hardy in clinic. She has been consistently taking her Tikosyn and Xarelto. Today she presented with A-fib with rates up into the 130s that spontaneously resolve. She missed her morning dose of Tikosyn and digoxin given she wasin the ED, however was given it in the morning. Labs significant for potassium 4.0, magnesium 1.9, BNP 655. Troponins negative. TSH 2.78. EP was consulted, pending recommendations. Review of Systems Per HPI, Complete ROS otherwise negative Physical Exam Vitals and Measurements T: 36.5 C (Axillary) TMIN: 36.4 C (Oral) TMAX: 36.5 C (Axillary) HR: 81 (Monitored) RR: 16 BP: 130/68 SpO2: 92% HT: 165.1 cm WT: 81 kg BMI: 29.72 Weight Dosing Weight: 81 kg (05/23/24) General: AAOX3, NAD HEENT: Anicteric sclera, MMM Neck: Trachea midline, no JVD appreciated CVS: RRR, normal S1/S2, no murmurs/rubs/gallops Lung: CTAB, no wheezes/rhonchi/rales Abd: Soft, NT/ND Extrem: WWP, no LE edema Skin: Warm, Intact Neuro: AAOX3, spontaneous movement of all extremities Psych: Appropriate mood & affect Lab Results 05/23 13:55 WBC: 6.2 Hgb: 13.6 Hct: 37.9 Platelet: 153 Neutrophil %: 69.8 Glucose Level: 108 Sodium Level: 144 Potassium Level: 4.0 BUN: 12.0 Creatinine Lvl (s): 0.70 Assessment/Plan A-fib on Tikosyn and digoxin s/p maze with ligation of left atrial appendage without complete appendage closure ABARCA liver cirrhosis Hypothyroidism Status post ASD closure Mild pulmonary hypertension on tadalafil Patient in paroxysmal A-fib with RVR with multiple transitions in and out of A- fib. She has been compliant with her Tikosyn and Xarelto at home. Will continue Tikosyn and digoxin at this time Will continue Xarelto at this time Will consult EP for further evaluation Continue home tadalafil Continue home Synthroid Problem List/Past Medical History Ongoing Abnormality of left atrial appendage Acute blood loss anemia Anxiety ASD secundum Atrial fibrillation Atrial fibrillation Atrial flutter with controlled response Back pain CHEST PAIN, ATYPICAL CHEST WALL PAIN Cirrhosis, non-alcoholic Eczema Encounter for surgical aftercare following surgery of circulatory system GERD - Gastro-esophageal reflux disease Hypertension Migraine MTHFR gene mutation FARSHAD (obstructive sleep apnea) Osteoarthritis Pericarditis REFUSED INFLUENZA VACCINE REFUSED PNEUMOCOCCAL VACCINE STEATOHEPATITIS, NONALCOHOLIC SYNCOPE, NEAR Thyroid enlargement Urinary incontinence Historical DEHYDRATION DIARRHEA Procedure/Surgical History Cholecystectomy: 11/2023 Cardioversion: 05/03/23 Transesophageal echocardiogram: 05/03/23 Echocardiogram: 05/02/23 Maze procedure: 04/30/23 Echocardiogram: 02/06/23 Holter monitor: 11/17/22 Cardioversion: 10/09/22 Transesophageal echocardiogram: 09/14/22 Cardioversion: 09/14/22 Cardiac catheterization: 08/29/22 Echocardiogram: 08/15/22 Echocardiogram: 08/08/22 Echocardiogram: 08/07/22 Echocardiogram: 08/07/22 Transesophageal echocardiogram: 08/07/22 PFO - Closure of patent foramen ovale: 08/07/22 Transesophageal echocardiogram: 06/15/22 Spirometry: 04/24/22 Cardiac catheterization: 04/13/22 Dilation and curettage: 2015 Hysteroscopy: 2015 Colonoscopy: 2011 Bunionectomy: 2007 Tubal ligation: 1992 Suspension of bladder: 1991 Tonsillectomy: 1963 Medications Home Medications (16) Active aspirin 81 mg oral tablet, chewable 81 mg = 1 tab(s), Oral, Daily bumetanide 1 mg oral tablet 1 mg = 1 tab(s), PRN, Oral, Daily busPIRone 5 mg oral tablet 10 mg = 2 tab(s), PRN, Oral, TID colchicine 0.6 mg oral tablet 0.6 mg = 1 tab(s), Oral, BID cyanocobalamin 1000 mcg oral tablet 1,000 mcg = 1 tab(s), Oral, qDay digoxin 125 mcg (0.125 mg) oral tablet 125 mcg = 1 tab(s), Oral, qDay Klor-Con M20 oral tablet, extended release 20 mEq = 1 tab(s), Oral, qDay magnesium oxide 250 mg oral tablet 250 mg = 1 tab(s), Oral, BID metoprolol succinate 25 mg oral TABLET extended release 25 mg = 1 tab(s), Oral, qDay metoprolol succinate 25 mg oral TABLET extended release 25 mg = 1 tab(s), Oral, qDay metoprolol succinate 25 mg oral TABLET extended release 25 mg = 1 tab(s), PRN, Oral, qDay Tadalafil (Eqv-Cialis) 20 mg oral tablet 20 mg = 1 tab(s), Oral, BID Tikosyn 500 mcg oral capsule 500 mcg = 1 cap(s), Oral, BID Vitamin B12 1000 mcg oral tablet See Instructions Vitamin D3 1000 intl units oral tablet 1,000 unit(s) = 1 tab(s), Oral, qDay Xarelto 20 mg oral tablet 20 mg = 1 tab(s), Oral, qDay Allergies Bactrim Itching, Rash Cigarette smoke Watery eye, Nasal drainage Dilaudid Nausea and vomiting, Diarrhea, Dizziness codeine HALLUCINATIONS ibuprofen Itching iodinated radiocontrast dyes Racing heartbeat morphine Itching sulfa drugs Itching, Rash Social History Smoking Status - 07/22/2016 Never smoker Alcohol Use: Never., 09/20/2019 Employment/School Status: Employed. Activity Level: Occasional physical work., 10/08/2019 Home/Environment Living situation: Home/Independent. Domestic Concerns: None, Denies. Lives In: Multilevel home, 1stfloor bedroom, 1st floor bathroom, 1st floor laundry. Current Home Treatments Blood Pressure monitoring, CPAP machine. Marital Status: ., 05/23/2024 Domestic Concerns: Denies., 08/29/2022 Nutrition/Health Type of diet: Low sodium. Appetite Good. Eating Difficulties None. Caffeine intake amount: no caffeine intake., 07/31/2022 Substance Abuse Use: Never., 10/08/2019 Tobacco Nicotine Use: Never (less than 100 in lifetime)., 09/20/2019 Family History Atrial fibrillation: Mother and Sister. Cancer: Father and Brother. Cardiac pacemaker: Father and Sister. DVT - Deep vein thrombosis: Negative: Daughter. Deep vein thrombosis: Daughter. Heart failure: Father. High blood pressure: Mother. Leukemia: Brother. Malignant tumor of lung: Father. Malignant tumor of ovary: Sister. Pulmonary embolism: Daughter.Negative: Daughter. Stroke: Mother and Sister. Health Status Family Member(s) Family Member(s) Relationship: Father, Age: 79 Years, Cause: lung cancer Immunizations SARS-CoV-2 mRNA (tozinameran) vaccine: 0.3 unknown unit (10/19/21) SARS-CoV-2 mRNA (tozinameran) vaccine: 0 unknown unit (10/07/21) tetanus/diphth/pertuss (Tdap) adult/adol: 0 unknown unit (06/25/21) Code Status Code Status - Ordered -- 05/23/24 12:48:00 EDT, Full Code, Constant Order Digitally Signed by JUSTIN MORILLO MD on 05/23/2024 05:08 PM [facility] [id number] NoteATRIAL FIBRILLATION LOW VOLTAGE, PRECORDIAL LEADS NONSPECIFIC T-WAVE ABNORMALITY Electronic Signature: GEOFFREY DEWEY MD 05/24/2024 15:50:55[facility] 08-31-[facility] Evaluation + Plan noteExtracted from: Title:History and Physical Author:CARLOS MORILLO MD Date:05/23/24 A-fib on Tikosyn and digoxin s/p maze with ligation of left atrial appendage without complete appendage closure ABARCA liver cirrhosis Hypothyroidism Status post ASD closure Mild pulmonary hypertension on tadalafil Patient in paroxysmal A-fib with RVR with multiple transitions in and out of A- fib. She has been compliant with her Tikosyn and Xarelto at home. Will continue Tikosyn and digoxin at this time Will continue Xarelto at this time Will consult EP for further evaluation Continue home tadalafil Continue home Synthroid Addendum by GEOFFREY DEWEY MD on May 23, 2024 22:42:16 EDT I have personally seen, examined, and evaluated the patient on the encounter date. I have reviewed the fellow s documentation and agree with the fellow s findings and plan as documented, unless otherwise stated. Patient with worsening exacerbation of paroxysmal atrial fibrillation with RVR despite dofetilide. Will admit and get EP opinion. Addendum by GEOFFREY DEWEY MD on May 23, 2024 23:26:51 EDT Previous ASD closure will prohibit endocardial ablation pathway. Future Appointments Appointment Date:07/10/2024 01:00:00 PM Scheduled Provider: Location:[facility] Appointment Type:CV OV Appointment Date:09/25/2024 11:30:00 AM Scheduled Provider:RUSSELL MCMULLEN Location:[facility] Appointment Type:CV OV Future Scheduled Tests Laboratory* Basic Metabolic Panel 03/18/24 [facility] 08-31-2024 NoteATRIAL FIBRILLATION THEN SINUS RHYTHM LOW VOLTAGE, PRECORDIAL LEADS Electronic Signature: GEOFFREY DEWEY MD 05/24/2024 15:50:02[facility] 07-18-2024 Evaluation note* Encounter Date Assessment Date Assessment LastModified by Organization Details LastModified Time 04/09/2024 04/09/2024 [email or web address] Not available 04/09/2024 15:19:12 [facility] 03-14-2024 Evaluation note* Encounter Date Assessment Date Assessment LastModified by Organization Details LastModified Time 12/05/2023 12/05/2023 biliary stent to be removed soon pt [facility] in case needs [facility] due [facility] issues in [facility] follows. mammo scheduled liver biopsy done during [facility] showed no signs of cirrhosis [email or web address] Not available 12/05/2023 15:33:46 [facility] 02-22-2024 Evaluation note* Encounter Date Assessment Date Assessment LastModified by Organization Details LastModified Time 11/14/2023 11/14/2023 ED imaging/labs/ consults reviewed and discussed in entirety with patient - all questions answered med list reconciled with ED note [email or web address] Not available 11/14/2023 16:00:30 [facility] 12-05-2023 Instructions* Patient Instructions* Deisy Mendoza PA-C - 08/27/2023 8:11 AM EST Fact Sheet for Patients And Caregivers Emergency Use Authorization (EUA) Of LAGEVRIO (molnupiravir) capsules For Coronavirus Disease 2019 (COVID-19) What is the most important information I should know about LAGEVRIO? LAGEVRIO may cause serious side effects, including: LAGEVRIO may cause harm to your unborn baby. It is not known if LAGEVRIO will harm your baby if youtake LAGEVRIO during . LAGEVRIO is not recommended for use in . LAGEVRIO has not been studied in . LAGEVRIO was studied in animals only. When LAGEVRIO was given to animals, LAGEVRIO caused harm to their unborn babies. You and your healthcare provider may decide that you should take LAGEVRIO during if thereare no other COVID-19 treatment options approved or authorized by the FDA that are accessible or clinically appropriate for you. If you and your healthcare provider decide that you should take LAGEVRIO during , you and your healthcare provider should discuss the known and potential benefits and the potential risks of taking LAGEVRIO during . For individuals who are able to become : You should use a reliable method of control (contraception) consistently and correctly duringtreatment with LAGEVRIO and for 4 days after the last dose of LAGEVRIO. Talk to your healthcare provider about reliable control methods. Before starting treatment with LAGEVRIO your healthcare provider may do a test to see if you are before starting treatment with LAGEVRIO. Tell your healthcare provider right away if you become or think you may be duringtreatment with LAGEVRIO. Registry: There is a registry for individuals who take LAGEVRIO during . The purpose of this program is to collect information about the health of you and your baby. If you are or become during treatment with LAGEVRIO, you are encouraged to reportyour use of LAGEVRIO during to this registry at https://covid-pr.[employer] or . For individuals who are sexually active with partners who are able to become : It is not known if LAGEVRIO can affect sperm. While the risk is regarded as low, animal studies to fully assess the potential for LAGEVRIO to affect the babies of males treated with LAGEVRIO have notbeen completed. A reliable method of control (contraception) should be used consistently and correctly during treatment with LAGEVRIO and for at least 3 months after the last dose. The risk to sperm beyond 3 months is not known. Studies to understand the risk to sperm beyond 3 months are ongoing. Talk to your healthcare provider about reliable control methods. Talk to your healthcare provider if you have questions or concerns about how LAGEVRIO may affect sperm. You are being given this fact sheet because your healthcare provider believes it is necessary to provide you with LAGEVRIO for the treatment of adults with a current diagnosis of mild-tomoderate coronavirus disease 2019 (COVID-19) who are at high risk for progression to severe COVID-19, including hospitalization or , and for whom other COVID-19 treatment options approved or authorized by theFDA are not accessible or clinically appropriate. The [place].S. Food and Drug Administration (FDA) has issued an Emergency Use Authorization (EUA) to makeLAGEVRIO available during the COVID-19 pandemic (for more details about an EUA please see What is an Emergency Use Authorization? at the end of this document). LAGEVRIO is not an FDA-approved medicine in the [place]. Read this Fact Sheet for information about LAGEVRIO. Talk to your healthcareprovider about your options if you have any questions. It is your choice to take LAGEVRIO. What is COVID-19? COVID-19 is caused by a virus called a coronavirus. You can get COVID-19 through close contact withanother person who has the virus. COVID-19 illnesses have ranged from very wztu-ri-dzyrzp, including illness resulting in . While information so far suggests that most COVID-19 illness is mild, serious illness can happen and maycause some of your other medical conditions to become worse. Older people and people of all ages with severe, long lasting (chronic) medical conditions like heart disease, lung disease and diabetes, for example seem to be at higher risk of being hospitalized for COVID-19. What is LAGEVRIO? LAGEVRIO is an investigational medicine used to treat adults with a current diagnosis of mild to moderate COVID-19: who are at high risk for progression to severe COVID-19 including hospitalization or , and for whom other COVID-19 treatment options approved or authorized by the FDA are not accessible or clinically appropriate. The FDA has authorized the emergency use of LAGEVRIO for the treatment of mild- tomoderate COVID-19 in adults under an EUA. For more information on EUA, see the What is an Emergency Use Authorization (EUA)? section at the end of this Fact Sheet. LAGEVRIO is not authorized: for use in people less than 18 years of age. for prevention of COVID-19. for people needing hospitalization for COVID-19. for use for longer than 5 consecutive days. What should I tell my healthcare provider before I take LAGEVRIO? Tell your healthcare provider if you: have any allergies are or plan to breastfeed have any serious illnesses Take any medicines including prescription, banv-wfd-umilffw medicines, vitamins, and herbal products. How do I take LAGEVRIO? Take LAGEVRIO exactly as your healthcare provider tells you to take it. Take 4 capsules of LAGEVRIO every 12 hours (for example, at 8 am and at 8 pm) Take LAGEVRIO for 5 days. It is important that you complete the full 5 days of treatment with LAGEVRIO. Do not stop taking LAGEVRIO before you complete the full 5 days of treatment, even if you feel better. Take LAGEVRIO with or without food. You should stay in isolation for as long as your healthcare provider tells you to. Talk to your healthcare provider if you are not sure about how to properly isolate while you have COVID-19. Swallow LAGEVRIO capsules whole. Do not open, break, or crush the capsules. If you cannot swallow capsules whole, tell your healthcare provider. If your healthcare provider prescribes LAGEVRIO and tells you to take or give a dose through a nasogastric (NG) or orogastric (OG) tube, follow the instructions below: How to take or give a dose of LAGEVRIO through a nasogastric (NG) or orogastric (OG) feeding tube. You must have an NG or OG that is size 12 Vincentian (FR) or larger. If you miss a dose of LAGEVRIO: If it has been less than 10 hours since the missed dose, take it as soon as you remember. If it has been more than 10 hours since the missed dose, skip the missed dose and take your dose atthe next scheduled time. Do not double the dose of LAGEVRIO to make up for a missed dose. How to take or give a dose of LAGEVRIO through a nasogastric (NG) or orogastric (OG) feeding tube: Wash your hands well with soap and water. Gather the supplies you will need to take or give the prescribed dose of LAGEVRIO. 4 LAGEVRIO capsules 1 liquid measuring cup with mL markings to measure 40 mL of room temperature water 1 clean container with a lid 1 catheter tip syringe. Your healthcare provider should tell you what size catheter tip syringe youwill need to take or give a dose of LAGEVRIO. Place the needed supplies on a clean work surface. Follow your healthcare provider s instructions on how to flush the NG or OG feeding tube. Flush theNG or OG feeding tube with 5 mL of water before taking or giving a dose of LAGEVRIO. Carefully open 4 LAGEVRIO capsules, one at a time, and empty the contents into a clean container. Use the liquid measuring cup to measure 40 mL of room temperature water and add to the container containing the capsule contents. Place the lid on the container. Shake to mix the capsule contents and water well for 3 minutes. Thecapsule contents may not dissolve completely. Remove the lid from the container and draw up all the LAGEVRIO and water mixture into a catheter tip syringe. Give all of the mixture right away through the NG or OG feeding tube. Do not keep the mixture for future use. If any capsule contents are left in the container: Add 10 mL of water to the container, and mix to loosen any capsule contents that are left in the container. Use the catheter tip syringe to draw up all of the mixture in the container. Give the mixture through the NG or OG feeding tube. Repeat this process as needed until you no longer see any capsule contents left in the container orcatheter tip syringe. Use the same catheter tip syringe to flush the NG or OG feeding tube 2 times with 5 mL of water (10mL total). Rinse the container, lid and catheter tip syringe well with clean water after use. Place on a cleanpaper towel until next use. What are the important possible side effects of LAGEVRIO? See, What is the most important information I should know about LAGEVRIO? Allergic Reactions. Allergic reactions can happen in people taking LAGEVRIO, even after only 1 dose. Stop taking LAGEVRIO and call your healthcare provider right away if you get any of the following symptoms of an allergic reaction: hives rapid heartbeat trouble swallowing or breathing swelling of the mouth, lips, or face throat tightness hoarseness skin rash The most common side effects of LAGEVRIO are: diarrhea nausea dizziness These are not all the possible side effects of LAGEVRIO. Not many people have taken LAGEVRIO. Serious and unexpected side effects may happen. This medicine is still being studied, so it is possible that all of the risks are not known at this time. What other treatment choices are there? Veklury (remdesivir) is FDA-approved as an intravenous (IV) infusion for the treatment of mildto-moderate COVID-19 in certain adults and children. Talk with your doctor to see if Veklury is appropriate for you. Like LAGEVRIO, FDA may also allow for the emergency use of other medicines to treat people with COVID-19. Go to https://www.fda.gov/hafkxnrqq-umceeyljyovy-kty-response/pmj-lmngkyqqyvzpsvo-mww- policy-framework/zkjgcshxh-kxq-bmhfxdqfwmjaw for more information. It is your choice to be treated or not to be treated with LAGEVRIO. Should you decide not to take it, it will not change your standard medical care. What if I am ? is not recommended during treatment with LAGEVRIO and for 4 days after the last dose of LAGEVRIO. If you are or plan to breastfeed, talk to your healthcare provider about your options and specific situation before taking LAGEVRIO. How do I report side effects with LAGEVRIO? Contact your healthcare provider if you have any side effects that bother you or do not go away. Report side effects to FDA MedWatch at www.fda.gov/medwatch or call 3-422-XQO-3461 ([phone]). How should I store LAGEVRIO? Store LAGEVRIO capsules at room temperature between 68 F to 77 F (20 C to 25 C). Keep LAGEVRIO and all medicines out of the reach of children. How can I learn more about COVID-19? Ask your healthcare provider. Visit www.cdc.gov/COVID19 Contact your local or state public health department. Call [employer] at (toll free in the [place] Visit wwwOptisort What Is an Emergency Use Authorization (EUA)? The [place] FDA has made LAGEVRIO available under an emergency access mechanism called an Emergency Use Authorization (EUA) The EUA is supported by a [place] of Health and Human Service (HHS)declaration that circumstances exist to justify emergency use of drugs and biological products during the COVID-19 pandemic. LAGEVRIO for the treatment of adults with a current diagnosis of xupl-cd-upggwuxp COVID-19 who are at high risk for progression to severe COVID- 19, including hospitalization or , and for whom alternative COVID-19 treatment options approved or authorized by FDA are not accessible or clinically appropriate, has not undergone the same type of review as an FDAapproved product. In issuing an EUA under the COVID-19 public health emergency, the FDA has determined, among other things, that based on the total amount of scientific evidence available including data from adequate and well-controlledclinical trials, if available, it is reasonable to believe that the product may be effective for diagnosing, treating, or preventing COVID-19, or a serious or life-threatening disease or condition caused by COVID-19; that the known and potential benefits of the product, when used to diagnose, treat, or prevent such disease or condition, outweigh the known and potential risks of such product; and that there are no adequate, approved, and available alternatives. All of these criteria must be met to allow for the product to be used in the treatment of patients during the COVID-19 pandemic. The EUA for LAGEVRIO is in effect for the duration of the COVID-19 declaration justifying emergency use of LAGEVRIO, unless terminated or revoked (after which LAGEVRIO may no longer be used under the EUA). Abiel. for: [employer] [address] For patent information: www.[employer]/research/patent Copyright [employer] [place], [place], [place] and its affiliates. All rights reserved. [id number] Revised: October 2022 documented in this encounter12-05-2023 Miscellaneous Notes* Telephone Encounter - Deisy Mendoza PA-C - 08/27/2023 8:09 AM EST Molnupiravir Eligibility and Patient Discussion Formulary Restriction Criteria: Adult outpatients 18 years and older with ALL of the following: [x] Patient has symptoms for 5 days or less [x] Not requiring hospitalization at any time for management of COVID-19 [x] Not requiring supplemental oxygen or a change in baseline supplemental oxygen [x] Not utilized for pre-exposure or post-exposure prophylaxis for prevention of COVID-19 [x] Patient is not or lactating [x] Meeting at least one of the criteria for high risk of progression to severe COVID-19: [] Age over 65 years [] Cancer [] Chronic kidney disease [] Chronic liver disease [] Chronic lung diseases, including cystic fibrosis [] Dementia or other neurological conditions [] Diabetes (type 1 or type 2) [] Disabilities, including Down syndrome and neurodevelopmental disorders [x] Heart conditions [] HIV infection [] Immunocompromised state [] Mental health conditions [] Medical related technological dependence (tracheostomy, gastrostomy, or positive pressure ventilation (not related to COVID) [] Overweight and obesity (BMI greater or equal to 25 for adults) [] Physical inactivity [] Sickle cell disease or thalassemia [] Smoking, current or former [] Solid organ or blood stem cell transplant [] Stroke or cerebrovascular disease [] Substance use disorders [] Tuberculosis [] People from racial and ethnic minority groups Criteria above are met: Yes Date of Symptom Onset: Patient received COVID vaccine: / status reviewed: Females: [x] Patient is not currently and there is no possibility the patient could be (select one of the following): [] test does not need to be confirmed in patients who have undergone permanent sterilization, are currently using an intrauterine system or contraceptive implant, or in whom is not possible. [] Patients not meeting conditions above: assess whether the patient is based on the firstday of the last menstrual period in individuals who have regular menstrual cycles, is using reliable method of contraception correctly and consistently or have had a negative test [] A test is recommended if the individual has irregular menstrual cycles, is unsure of the first day of the last menstrual period or is not using effective contraception correctly and consistently [] Patient is not currently . is not recommended during treatment and for four days after final dose of molnupiravir. [] Females have been advised to use a reliable method of contraception correctly and consistently for the duration of treatment and for four days after the last dose of molnupiravir Males: [] Sexually active male with partner(s) of childbearing potential has been advised to use a reliable method of contraception correctly and consistently for intercourse for the duration of treatment and for three months after the last dose of molnupiravir I have discussed the use of the investigational therapeutic, molnupiravir, for the treatment of mild to moderate COVID-19 and its use under Emergency Use Authorization with the patient. The patient was informed that molnupiravir is not an FDA approved drug and that it is authorized for use under this Emergency Use Authorization. The patient was also informed of the significant knownbenefits and potential risks of molnupiravir, and the extent to which such potential risks and benefits are unknown. The patient was informed that there is mandatory reporting of all medication errors and serious adverse events potentially related to molnupiravir treatment within 7 calendar days from the onset of the event and that events up to 28 days after completion of therapy need to be reported. The discussion included alternatives to receiving molnupiravir, including clinical trials, and potential the risks and benefits of those alternatives. The patient was provided electronically withthe Fact Sheet for Patients, Parents and Caregivers . The patient was also instructed that in addition to the treatment with molnupiravir, he/she should continue to self-isolate and use infection control measures (e.g., wear mask, isolate, social distance, avoid sharing personal items, clean and disinfect high touch surfaces, and frequent handwashing) according to CDC guidelines. The patient stated understanding and gave verbal consent to proceeding with molnupiravir treatment. Deisy Mendoza PA-C August 27, 2023 8:12 AM documented in this encounter12-05-2023 Miscellaneous Notes* Telephone Encounter - Livier Melvin - 08/27/2023 7:29 AM EST Patient given results and verbalized understanding of instructions given. Livier Melvin * Telephone Encounter - Deisy Mendoza PA-C - 08/27/2023 7:16 AM EST Call and let patient know she was positive for COVID-19. If she is interested in antiviral treatment I can print her off a prescription for molnupiravir. Would recommend a 5-day quarantine followed by 5 days of a mask. Follow-up with primary care if not improving. documented in this encounter12-04-2023 NoteHNO ID: [id number] Author: Phil Márquez APRN.[facility] Service: ? Author Type: Nurse Practitioner Type: Progress Notes Filed: 08/26/2023 6:02 PM Note Text: Subjective HPI Nontoxic-appearing female presents to urgent care with chief complaint of fever and cough. Duration of symptoms 2 days. Associated symptoms with today's chief complaint are on and off headache, muscle aches, fatigue, loose stools, nonproductive cough, and fever. Patient stated symptoms started abruptly. No OTC medications. Sick contact work similar signs symptoms. Patient denies any pain at this time. Patient denies any visual changes, visual disturbance, shortness of breath, rash, exercise intolerance, pleuritic pain, productive cough, abdominal pain, nausea, vomiting, chest pain, or change in bowel or bladder habits. Past medical history prescription medication use allergies reviewed. .Patient presents with: Nasal Congestion: drainage, nausea, bodyaches, fever x 2 days PAST MEDICAL HISTORY Diagnosis Date Atrial fibrillation (HCC) Cirrhosis (HCC) Essential hypertension Essential tremor Sleep apnea PAST SURGICAL HISTORY Procedure Laterality Date BLADDER SURGERY HX 1991 Bladder suspension FOOT SURGERY HX Left 2009 Bunion removed TONSILLECTOMY HX age 4 TUBAL LIGATION HX 1992 ALLERGIES Bactrim [Sulfamethoxazole-Trimethoprim], Codeine, Dilaudid [Hydromorphone (Bulk)], Iodine, Morphine, and Motrin [Ibuprofen] MEDICATIONS potassium chloride ER (KLOR-CON M20) 20 mEq tablet Dose : 20 mEq = 1 tab(s), Oral, qDay, # 30 tab(s), 3 Refill(s), Pharmacy: [facility], [id number], cm, 04/08/23 13:33:00 EDT, Height, kg, 04/08/23 13:33:00 EDT, Dosing Weight Tadalafil (CIALIS) 20 mg tab(s) Take 20 mg by mouth once daily. dofetilide (TIKOSYN) 250 mcg capsule Dose : 500 mcg = 2 cap(s), Oral, BID rivaroxaban (XARELTO) 20 mg tablet 20 mg. bumetanide (BUMEX) 1 mg tablet TAKE 1 TABLET BY MOUTH EVERY DAY NEEDED FOR SWELLINGWEIGHT GAIN cholecalciferol (VITAMIN D3) 5,000 unit tab q 24 HR. aspirin, enteric coated (ASPIRIN, ENTERIC COATED) 81 mg EC tablet 81 mg. busPIRone (BUSPAR) 5 mg tablet Magnesium Oxide 250 mg magnesium tab 500 mg. metoprolol (LOPRESSOR) 5 mg/5 mL injection 5 mg Metoprolol IV dose increments over 3-5 minutes. May give additional 5mg Metoprolol every 5 minutes until target heart rate achieved, or maximum dosage of 30 mg of Metoprolol. colchicine 0.6 mg tablet TAKE 1 TABLET BY MOUTH TWO TIMES EVERY DAY- TAKE WITH FOOD pantoprazole DR (PROTONIX) 40 mg tablet Take 1 tablet by mouth every afternoon. nitroglycerin sublingual (NITROQUICK) 0.3 mg SL tablet Dissolve 1 tablet under the tongue one time only for 1 dose. To be administered in Radiology for CTA exam (Patient not taking: Reported on 02/19/2023) carvedilol (COREG) 12.5 mg tablet Take 0.5 tablets by mouth twice daily. (Patient not taking: Reported on 08/26/2023) NETTLE LEAF ORAL Take by mouth. (Patient not taking: Reported on 04/12/2021 ) MILK THISTLE ORAL Take by mouth. (Patient not taking: Reported on 04/12/2021 ) DANDELION ORAL Take by mouth. (Patient not taking: Reported on 04/12/2021 ) RED CLOVER ORAL Take by mouth. (Patient not taking: Reported on 04/12/2021 ) BURDOCK ROOT ORAL Take by mouth. (Patient not taking: Reported on 04/12/2021 ) diphenhydrAMINE (BENADRYL) 50 mg capsule Take 1 capsule by mouth as directed for 1 dose. one (1) hour prior to exam. (Patient not taking: Reported on 09/13/2016) FAMILY HISTORY Problem Relation Age of Onset Cancer Father Lung-smoker Obesity Father Diabetes Paternal Aunt Thyroid Mother Heart Mother Congenital hole in heart Heart Father Pacemaker other (Leukemia [Other]) Brother Breast Cancer Paternal Grandmother Social History Tobacco Use Smoking status: Never Smokeless tobacco: Never Substance Use Topics Alcohol use: No Drug use: No BP 110/72 Pulse 96 Temp (!) 39.1 ?C (102.4 ?F) Resp 18 Wt 77.1 kg (170 lb) SpO2 95% BMI 27.44 kg/m? Review of Systems Constitutional: Positive for chills, fever and malaise/fatigue. HENT: Positive for congestion. Negative for ear discharge, ear pain, sinus pain and sore throat. Eyes: Negative for blurred vision, pain, discharge and redness. Respiratory: Positive for cough. Negative for hemoptysis, sputum production, shortness of breath, wheezing and stridor. Cardiovascular: Negative for chest pain. Gastrointestinal: Negative for abdominal pain, diarrhea, nausea and vomiting. Musculoskeletal: Positive for myalgias. Skin: Negative for itching and rash. Neurological: Positive for headaches. Negative for dizziness. Objective Physical Exam Constitutional: General: She is not in acute distress. Appearance: She is not diaphoretic. HENT: Head: Normocephalic. Jaw: No trismus, tenderness, swelling or pain on movement. Nose: Congestion present. Eyes: Conjunctiva (more content not included)...[facility]12-04-2023 Instructions* Patient Instructions* Phil Márquez APRN.[employer] - 08/26/2023 5:48 PM EST How to Manage Common Symptoms Associated with COVID for Adults Fever- Fever is a temperature over 100.4 F and can occur when the body is fighting an infection. Tohelp treat a fever: Drink plenty of fluids and stay well hydrated. Eat small amounts of easy to digest food. Rest. Your body needs rest to recover, but getting up and moving around the house frequently is a good idea. You should try to continue doing your normal daily activities (bathing, toileting, grooming, cooking), though you will probably feel tired, and need to rest often. Avoid any heavy activity or exercise, as this will increase your body temperature. Dress in light clothing and stay covered in a light sheet. Keep the room temperature cool. Take a slightly warm (not cold or cool) bath, or apply damp washcloths to the forehead and wrists. Cough- Cough is a common symptom associated with COVID and can be bothersome. To help treat a cough: Stay well hydrated. Try warm water or tea with lemon and/or honey to help soothe the cough. Use a humidifier to add moisture to the air. Try a product with menthol, like a cough drop or a rub for your chest such as Vicks, which can helpreduce cough. Try cough drops. Avoid smoking and other strong odors or perfumes. Try breathing exercises to keep your lungs open and clear. Take a big deep breath through your noseand hold for 5 seconds before slowly releasing. Repeat frequently, while you are awake. Congestion- Runny nose or nasal congestion can occur with COVID. Treatment can help relieve symptoms: Try OTC nasal saline spray, or nasal saline rinse to relieve mucus congestion. Nasal strips can help keep nasal passages open, to increase airflow. Elevating your head with an extra pillow in bed can help reduce congestion. Using a humidifier can increase moisture in the air, and make breathing easier. Sore Throat- Another common symptom with COVID, can be managed at home by: Stay well hydrated. Gargle with salt water - mix teaspoon salt with 1 cup of warm water and gargle. This helps to loosen mucus in the back of the throat and may reduce discomfort. Try ice chips, popsicles or lozenges to soothe the throat. Nausea/Vomiting/Diarrhea- These are common symptoms, and staying hydrated is most important. If you are nauseous or vomiting, start with small sips of water every 10-15 minutes and increase astolerated. You can try sucking an ice cube too. If tolerating, you can try pedialyte or Gatorade, or flat sprite or kendell-lora. Start slowly and increase as you are able to. Instead of meals, try smaller, more frequent snacks. Try eating bland foods like crackers, toast, rice, and applesauce. Avoid spicy, greasy or fried foods and dairy containing foods. Even if you aren't feeling hungry due to lack of smell or taste, it is important to try to take in some food when you are able. After drinking and eating, rest in an upright position for up to two hours as needed to help decrease nauseous feelings. Try closing your eyes, avoid moving and watching TV. Avoid strong odors that can make you feel more nauseated. When to seek emergency medical attention Look for emergency warning signs for COVID-19. If having any of these symptoms, seek emergency medical care immediately: Trouble breathing Persistent pain or pressure in the chest New confusion Inability to wake or stay awake Bluish lips or face *This list is not all possible symptoms. Please call your medical provider for any other symptoms that are severe or concerning to you. documented in this encounter12-04-2023 History of Present illness Narrative* Phil Márquez APRN.CNP - 08/26/2023 5:23 PM EST Subjective HPI Nontoxic-appearing female presents to urgent care with chief complaint of fever and cough. Durationof symptoms 2 days. Associated symptoms with today's chief complaint are on and off headache, muscle aches, fatigue, loose stools, nonproductive cough, and fever. Patient stated symptoms started abruptly. No OTC medications. Sick contact work similar signs symptoms. Patient denies any pain at this time. Patient denies any visual changes, visual disturbance, shortness of breath, rash, exercise intolerance, pleuritic pain, productive cough, abdominal pain, nausea, vomiting, chest pain, or change in bowel or bladder habits. Past medical history prescription medication use allergies reviewed. .Patient presents with: Nasal Congestion: drainage, nausea, bodyaches, fever x 2 days PAST MEDICAL HISTORY Diagnosis Date Atrial fibrillation (HCC) Cirrhosis (HCC) Essential hypertension Essential tremor Sleep apnea PAST SURGICAL HISTORY Procedure Laterality Date BLADDER SURGERY HX 1991 Bladder suspension FOOT SURGERY HX Left 2008 Bunion removed TONSILLECTOMY HX age 4 TUBAL LIGATION HX 1992 ALLERGIES Bactrim [Sulfamethoxazole-Trimethoprim], Codeine, Dilaudid [Hydromorphone (Bulk)], Iodine, Morphine, and Motrin [Ibuprofen] MEDICATIONS potassium chloride ER (KLOR-CON M20) 20 mEq tablet Dose : 20 mEq = 1 tab(s), Oral, qDay, # 30 tab(s), 3 Refill(s), Pharmacy: [facility], 167.6, cm, 04/08/23 13:33:00 EDT, Height, kg, 04/08/23 13:33:00 EDT, Dosing Weight Tadalafil (CIALIS) 20 mg tab(s) Take 20 mg by mouth once daily. dofetilide (TIKOSYN) 250 mcg capsule Dose : 500 mcg = 2 cap(s), Oral, BID rivaroxaban (XARELTO) 20 mg tablet 20 mg. bumetanide (BUMEX) 1 mg tablet TAKE 1 TABLET BY MOUTH EVERY DAY NEEDED FOR SWELLINGWEIGHT GAIN cholecalciferol (VITAMIN D3) 5,000 unit tab q 24 HR. aspirin, enteric coated (ASPIRIN, ENTERIC COATED) 81 mg EC tablet 81 mg. busPIRone (BUSPAR) 5 mg tablet Magnesium Oxide 250 mg magnesium tab 500 mg. metoprolol (LOPRESSOR) 5 mg/5 mL injection 5 mg Metoprolol IV dose increments over 3-5 minutes. Maygive additional 5mg Metoprolol every 5 minutes until target heart rate achieved, or maximum dosage of 30 mg of Metoprolol. colchicine 0.6 mg tablet TAKE 1 TABLET BY MOUTH TWO TIMES EVERY DAY- TAKE WITH FOOD pantoprazole DR (PROTONIX) 40 mg tablet Take 1 tablet by mouth every afternoon. nitroglycerin sublingual (NITROQUICK) 0.3 mg SL tablet Dissolve 1 tablet under the tongue one time only for 1 dose. To be administered in Radiology for CTA exam (Patient not taking: Reported on 02/19/2023) carvedilol (COREG) 12.5 mg tablet Take 0.5 tablets by mouth twice daily. (Patient not taking: Reported on 08/26/2023) NETTLE LEAF ORAL Take by mouth. (Patient not taking: Reported on 04/12/2021 ) MILK THISTLE ORAL Take by mouth. (Patient not taking: Reported on 04/12/2021 ) DANDELION ORAL Take by mouth. (Patient not taking: Reported on 04/12/2021 ) RED CLOVER ORAL Take by mouth. (Patient not taking: Reported on 04/12/2021 ) BURDOCK ROOT ORAL Take by mouth. (Patient not taking: Reported on 04/12/2021 ) diphenhydrAMINE (BENADRYL) 50 mg capsule Take 1 capsule by mouth as directed for 1 dose. one (1) hour prior to exam. (Patient not taking: Reported on 09/13/2016) FAMILY HISTORY Problem Relation Age of Onset Cancer Father Lung-smoker Obesity Father Diabetes Paternal Aunt Thyroid Mother Heart Mother Congenital hole in heart Heart Father Pacemaker other (Leukemia [Other]) Brother Breast Cancer Paternal Grandmother Social History Tobacco Use Smoking status: Never Smokeless tobacco: Never Substance Use Topics Alcohol use: No Drug use: No BP 110/72 Pulse 96 Temp (!) 39.1 C (102.4 F) Resp 18 Wt 77.1 kg (170 lb) SpO2 95% BMI 27.44 kg/m Review of Systems Constitutional: Positive for chills, fever and malaise/fatigue. HENT: Positive for congestion. Negative for ear discharge, ear pain, sinus pain and sore throat. Eyes: Negative for blurred vision, pain, discharge and redness. Respiratory: Positive for cough. Negative for hemoptysis, sputum production, shortness of breath, wheezing and stridor. Cardiovascular: Negative for chest pain. Gastrointestinal: Negative for abdominal pain, diarrhea, nausea and vomiting. Musculoskeletal: Positive for myalgias. Skin: Negative for itching and rash. Neurological: Positive for headaches. Negative for dizziness. Objective Physical Exam Constitutional: General: She is not in acute distress. Appearance: She is not diaphoretic. HENT: Head: Normocephalic. Jaw: No trismus, tenderness, swelling or pain on movement. Nose: Congestion present. Eyes: Conjunctiva/sclera: Conjunctivae normal. Pupils: Pupils are equal, round, and reactive to light. Cardiovascular: Rate and Rhythm: Normal rate and regular rhythm. Heart sounds: Normal heart sounds. Pulmonary: Effort: Pulmonary effort is normal. No tachypnea, accessory muscle usage or respiratory distress. Breath sounds: Normal breath sounds. No stridor. No wheezing, rhonchi or rales. Abdominal: General: There is no distension. Palpations: Abdomen is soft. Tenderness: There is no abdominal tenderness. There is no guarding or rebound. Musculoskeletal: Cervical back: Normal range of motion and neck supple. No edema, erythema, rigidity or tenderness. No pain with movement. Normal range of motion. Lymphadenopathy: Cervical: No cervical adenopathy. Skin: General: Skin is warm and dry. Neurological: Mental Status: She is alert and oriented to person, place, and time. ASSESSMENT/PLAN: 1. Fever, unspecified fever cause - ICD9: 780.60, ICD10: R50.9 (primary diagnosis) - INFLUENZA A&B MOLECULAR (POC) - COVID NAAT, UPPER RESPIRATORY, ROUTINE 2. Suspected COVID-19 virus infection - ICD9: V01.79, ICD10: Z20.822 - COVID NAAT, UPPER RESPIRATORY, ROUTINE Patient nontoxic-appearing. Hemodynamically stable. Sick contacts similar signs symptoms. Day 2 of illness. POC flu test negative. Test for COVID-19. If COVID- 19 positive recommended antiviral treatment. Patient was educated on supportive therapies. Patient will follow up with primary care provider as needed. Patient was instructed to immediately proceed to emergency room for any new, worsening, or symptoms lasting longer than anticipated. The patient's clinical presentation is otherwise unremarkable at this time. Based on exam and clinical finding, the patient is stable for discharge. Plan of care was discussed with patient. Patient verbalizes understanding and agrees to plan of care. This note was generated using [employer] software. It may contain errors in wording, punctuation, or spelling. Phil Márquez APRN.[employer] documented in this encounter11-30-2023 Evaluation note* Encounter Date Assessment Date Assessment LastModified by Organization Details LastModified Time 08/22/2023 08/22/2023 [facility] follows [facility] Not available 08/22/2023 15:52:28 [facility] 09-21-2023 Evaluation note* Encounter Date Assessment Date Assessment 06/13/2023 06/13/2023 [facility] follows-- exam UTD [facility] 09-19-2023 Hospital Discharge instructions Patient Education 06/11/2023 11:50:01 Atrial Fibrillation Atrial Fibrillation Atrial fibrillation is a condition in which the heart beats in an irregular pattern. It is caused by a problem in the heart's electrical pathways. It can be a sign of heart disease or other health problems that affect the heart. Heart palpitations are the most common symptom of atrial fibrillation. This is the feeling that your heart is fluttering, beating fast, hard, or irregular. When the heart beats too fast, it doesn't pump blood very well. This can cause other symptoms like anxiety, fatigue, shortness of breath, chestpain, dizziness, or fainting. Atrial fibrillation may come and go. It can last from a few hours to a couple of days. Or, it may become chronic, lasting for months at a time or even become permanent. Atrial fibrillation may be caused by heart disease or other conditions in the body that affect the heart: Coronary artery disease (atherosclerosis) High blood pressure Disease of the heart valves Enlarged heart Heart failure Atrial fibrillation can also occur without heart disease because of: Overactive thyroid (hyperthyroid) Chronic lung disease (COPD, emphysema, bronchitis) Heavy alcohol use Cardiac stimulants like cocaine, amphetamines, diet pills, certain decongestant cold medicines, caffeine, or nicotine Infection Blood clot in the lung (pulmonary embolus) Diabetes Chronic kidney disease Obesity Extreme athletic conditioning Treating or removing these causes will help your treatment for atrial fibrillation. It will also make it less likely for the atrial fibrillation to come back. Atrial fibrillation can alternate back and forth with another abnormal rhythm called atrial flutter. Atrial flutter is a more regular heart rhythm and is also associated with an increased stroke risk. Proper treatment can lower your risk for stroke. Home care Follow these guidelines when caring for yourself at home: Go back to your usual activities as soon as you are feeling back to normal. If you smoke, stop smoking. Contact your healthcare provider or a local stop- smoking program for help. Don't use stimulants like alcohol, cocaine, amphetamines, diet pills, certain decongestant cold medicines, caffeine, or nicotine. If your provider prescribed medicine to stop atrial fibrillation from coming back, take it exactly as directed. Some medicines must be taken every day, not just when you have symptoms. This will helpthem work as they should. If you were prescribed warfarin to lower your risk for stroke, have your blood tested on a regular basis as advised by your provider. This will make sure you are getting the dose that is right for you. It also lower your risk for side effects. Follow-up care Follow up with your healthcare provider, or as advised. When to seek medical advice Call your healthcare provider right away if any of these following occur: Shortness of breath or swelling in the legs gets worse Unexpected weight gain Chest pain or the sense that your heart is fluttering or beating fast or hard (palpitations) Any sign of bleeding if you are on a blood thinner Pain, redness, or swelling in one leg Also call your provider right away if you have these signs of stroke: Weakness of an arm or leg or one side of the face Difficulty with speech or vision Extreme drowsiness, confusion, dizziness, or fainting [id number] [employer]. [address] [place] [address], [place] [address]. All rights reserved. This information is not intended as a substitute for professional medical care. Always follow yourhealthcare professional's instructions. Follow Up Care 06/11/2023 09:58:14 With:LINA ZENDEJAS MD, [facility], Internal Medicine Address: [facility] [address] [place] [phone] When:2-4 days [facility] Gatica 09-19-2023 Note Discharge Instructions Thank you for allowing [facility] to assist you with your healthcare needs. The following is importantdischarge information regarding your hospital visit. Diagnosis from Today's Visit Atrial fibrillation Tachycardia What to Do Next Instructions from Your Care Team No qualifying data available. Post Acute Orders No qualifying data available. You Need to Schedule the Following Appointments Follow Up with LINA ZENDEJAS MD, [facility], Internal Medicine When Within 2-4 days Where: [facility] [address] [place] [phone]- [phone] Allergies Bactrim (Itching, Rash) Cigarette smoke (Watery eye, Nasal drainage) Dilaudid (Nausea and vomiting, Diarrhea, Dizziness) codeine (HALLUCINATIONS) ibuprofen (Itching) iodinated radiocontrast dyes (Racing heartbeat) morphine (Itching) sulfa drugs (Itching, Rash) Medications Please ask your primary doctor or pharmacist before taking any other medication not listed, including over the counter drugs, herbal medications, vitamins and or supplements as they may interact withur home medications. What How Much When Instructions Last Dose Unchanged aspirin (Adult Aspirin 325 mg oral tablet) 1 tab(s) by mouth Two (2) times a day Unchanged bumetanide (bumetanide 1 mg oral tablet) 1 tab(s) by mouth Every day as needed for Swelling/weight gain Unchanged busPIRone (busPIRone 5 mg oral tablet) 1 tab(s) by mouth Three (3) times a day as needed for Anxiety Unchanged cholecalciferol (Vitamin D3 1000 intl units oral tablet) 1 tab(s) by mouth Once a day Unchanged colchicine (colchicine 0.6 mg oral tablet) 1 tab(s) by mouth Two (2) times a day Unchanged cyanocobalamin (cyanocobalamin 1000 mcg oral tablet) 1 tab(s) by mouth Once a day Unchanged dofetilide (Tikosyn 250 mcg oral capsule) 2 cap by mouth Two (2) times a day Unchanged magnesium oxide (magnesium oxide 250 mg oral tablet) 2 tab(s) by mouth Two (2) times a day Unchanged metoprolol (metoprolol succinate 25 mg oral TABLET extended release) See instructions 0.5 tab(s) NEEDED. Unchanged pantoprazole (pantoprazole 40 mg oral enteric coated tablet) 1 tab(s) by mouth Once a day Unchanged potassium chloride (Klor-Con M20 oral tablet, extended release) 1 tab(s) by mouth Once a day Unchanged rivaroxaban (Xarelto 20 mg oral tablet) 1 tab(s) by mouth Once a day Unchanged tadalafil (Tadalafil (Eqv-Cialis) 20 mg oral tablet) 1 tab(s) by mouth Two (2) times a day Please take this list to your next doctor s visit. Bring all medications you take, including over the counter medications, herbals and other supplements with you to your doctor s visit. Patients and families are reminded to discard old lists and to update any records with all medication providers or retail pharmacies. Education Materials Atrial Fibrillation Atrial fibrillation is a condition in which the heart beats in an irregular pattern. It is caused by a problem in the heart's electrical pathways. It can be a sign of heart disease or other health problems that affect the heart. Heart palpitations are the most common symptom of atrial fibrillation. This is the feeling that your heart is fluttering, beating fast, hard, or irregular. When the heart beats too fast, it doesn't pump blood very well. This can cause other symptoms like anxiety, fatigue, shortness of breath, chestpain, dizziness, or fainting. Atrial fibrillation may come and go. It can last from a few hours to a couple of days. Or, it may become chronic, lasting for months at a time or even become permanent. Atrial fibrillation may be caused by heart disease or other conditions in the body that affect the heart: Coronary artery disease (atherosclerosis) High blood pressure Disease of the heart valves Enlarged heart Heart failure Atrial fibrillation can also occur without heart disease because of: Overactive thyroid (hyperthyroid) Chronic lung disease (COPD, emphysema, bronchitis) Heavy alcohol use Cardiac stimulants like cocaine, amphetamines, diet pills, certain decongestant cold medicines, caffeine, or nicotine Infection Blood clot in the lung (pulmonary embolus) Diabetes Chronic kidney disease Obesity Extreme athletic conditioning Treating or removing these causes will help your treatment for atrial fibrillation. It will also make it less likely for the atrial fibrillation to come back. Atrial fibrillation can alternate back and forth with another abnormal rhythm called atrial flutter. Atrial flutter is a more regular heart rhythm and is also associated with an increased stroke risk. Proper treatment can lower your risk for stroke. Home care Follow these guidelines when caring for yourself at home: Go back to your usual activities as soon as you are feeling back to normal. If you smoke, stop smoking. Contact your healthcare provider or a local stop- smoking program for help. Don't use stimulants like alcohol, cocaine, amphetamines, diet pills, certain decongestant cold medicines, caffeine, or nicotine. If your provider prescribed medicine to stop atrial fibrillation from coming back, take it exactly as directed. Some medicines must be taken every day, not just when you have symptoms. This will helpthem work as they should. If you were prescribed warfarin to lower your risk for stroke, have your blood tested on a regular basis as advised by your provider. This will make sure you are getting the dose that is right for you. It also lower your risk for side effects. Follow-up care Follow up with your healthcare provider, or as advised. When to seek medical advice Call your healthcare provider right away if any of these following occur: Shortness of breath or swelling in the legs gets worse Unexpected weight gain Chest pain or the sense that your heart is fluttering or beating fast or hard (palpitations) Any sign of bleeding if you are on a blood thinner Pain, redness, or swelling in one leg Also call your provider right away if you have these signs of stroke: Weakness of an arm or leg or one side of the face Difficulty with speech or vision Extreme drowsiness, confusion, dizziness, or fainting [id number] [employer]. [address] [place] [address]. All rights reserved. This information is not intended as a substitute for professional medical care. Always follow yourhealthcare professional's instructions. Additional Information VACCINATE! IT SAVES LIVES! Members of the community who have not yet received the COVID-19 vaccine and would like to receive it can visit one of [facility] vaccine clinics. There are many vaccine clinic locations within the [facility]. For locations and available times, please visit [email or web address].[email or web address]/. It is important to note that some COVID mobile vaccine clinics are held outdoors and may be canceled in rainy or stormy conditions. To learn more about pediatric vaccinations (ages 5-11), we invite you to visit the [facility] webpage. [email or web address] learn more about the COVID-19 vaccine, we invite you to visit the CDC website for a list of frequently asked questions. https://www.cdc.gov/coronavirus/2019-ncov/vaccines/faq.html [facility] Patient Portal Access Instructions: Stay connected with your healthcare team and access your personal medical information anytime with the [facility] Patient Portal. If you would like a full copy of your medical records please contact the [facility] Medical Records Department Saturday through Saturday between 8a.m. and 4:30p.m. Please follow the directions below to access the portal: 1.Access the email account you provided upon registration to the hospital.2.Look for an invitation email from [facility].3.Open the email and access the invitation link: Accept Invitation to [facility]4.Fill in the required العلي to create your account. Sign into www.[employer] with your username and password that you created in the above steps to stay up to date. You can then view a summary of results, a summary of your visits, and the ability to download your summaries to your computer or send the information securely to a physician. Remember that your healthcare information is confidential, so carefully consider who you will allow to register on the [facility] Patient Portal for access to your information. You can also access the [employer] Patient Portal on the [employer] aleena. Simply click on Health Records under [employer] and then click on the [employer] logo. HOW TO SAFELY DISPOSE OF PRESCRIPTION MEDICATIONS Please use one of the following methods to safely dispose of your unused medications. 1.Use a drug disposal kit: the drug disposal pouch allows you to safely discard your old and unuseddrugs. Ask your nurse to give you one when you are discharged.2.Visit a local take-back location: Many local pharmacies and police departments have programs that collect old and unwanted prescriptiondrugs. Call your local pharmacy or go to http://bit.[employer]/1E5Ey6d to find one close to you.3.Make use of household items: Use cat litter or old coffee grounds to dispose medications if other options arenot available. Mix your drugs with these household products, seal them in an airtight container andthrow it into the garbage. Call [facility]: [phone] to be sure your drugs can be disposed of in this way. Some medicines may require a different approach.4.Never flush your medications down the toilet. IF YOU HAVE BEEN PRESCRIBED AN OPIOIDS FOR PAIN If you have been prescribed an opioid (such as hydrocodone, oxycodone or morphine), it is critical to understand the possible side effects and risks of opioid pain medications. Even when taken as directed, opioids can have several side effects including: Tolerance, meaning you might need to take more of a medication for the same pain relief. Nausea, vomiting and/or constipation. Sleepiness, dizziness, dry mouth, confusion, depression or itching. Physical dependence, meaning you have withdrawal symptoms when a medication is stopped ? this can develop within a few days. KNOW YOUR RESPONSIBILITIES It is important to know exactly how much and how often to take the opioid pain medications you are prescribed. Never take opioids in higher amounts or more often than prescribed. Do not combine opioids with alcohol or other drugs that cause drowsiness, such as benzodiazepines, also known as benzos,including diazepam and alprazolam, muscle relaxants or sleep aids. Never sell or share prescriptionopioids. This is illegal. Store opioids in a secure place and out of reach of others (including children, family, friends and visitors). The last page(s) of this document has been signed and retained as a CHART COPY [employer]atures Patient Education Materials Atrial Fibrillation Medication Leaflets My discharge plan and instructions have been reviewed and explained to me and IKEV MARY C understand my current condition and have read and understand these discharge instructions. I have received a written copy of the plan/instructions. If I have questions, I am aware that I should contact my doctor. 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 The aorta is atherosclerotic. There is a left atrial appendage clip. There is no focal consolidation, pleural effusion, or pneumothorax. No acute osseous abnormality. IMPRESSION: No acute radiographic findings. Interpreted by: Mariela Marshall MD Preliminary Report By: Mariela Marshall MD Electronically signed By Mariela Marshall MD Dictated Date: 06/11/2023 11:35:59 AM Prelim Date: 06/11/2023 11:36:50 AM Sign Date: 06/11/2023 11:36:50 AM [facility]ing [facility] Sinus rhythm Probable left atrial enlargement Low voltage, precordial leads Electronic Signature: JAVIER CHEN MD 06/11/2023 10:51:24[facility] 09-19-2023 NoteAtrial fibrillation Borderline repolarization abnormality Minimal ST elevation, lateral leads Baseline wander in lead(s) V6 Electronic Signature: JAVIER CHEN MD 06/11/2023 10:19:52[facility] 09-15-2023 Hospital Discharge instructions Patient Education 06/07/2023 06:37:21 Cardiac SD - Discharge Instructions for Cancelled Procedures 04/2022(CUSTOM) DISCHARGE INSTRUCTIONS FOR CANCELLED PROCEDURES DIET Resume your regular diet that you had before your procedure unless otherwise instructed. ACTIVITY Resume your previous activities as tolerated unless otherwise instructed. IV DRESSING/WOUND CARE If you have had an IV inserted, you can remove the gauze dressing in 1 hour. CALL YOUR DOCTOR IF: You develop any new redness, swelling, or drainage around your IV insertion site. You have a temperature of 101 degrees or higher. PAIN Follow your doctors' instructions for pain management. You can take your usual tktj-qhk-xmvrbgm pain medication unless otherwise directed. HAND WASHING Always wash your hands before and after touching the IV insertion/dressing site. Frequent hand washing is the best way to prevent the spread of infection. FOLLOW-UP Keep your follow-up appointment. If an appointment has not been made for you, call your doctor's office to schedule. If you have any concerns before your appointment, call your doctor's office. Follow Up Care 06/04/2023 15:45:35 With:LINA ZENDEJAS MD, [facility], Internal Medicine Address: [facility] [address] [place] [phone]- [phone] When: Unknown Comments:Follow-up as scheduled [facility] 09-15-2023 Summary of episode note Discharge Instructions Thank you for allowing [facility] to assist you with your healthcare needs. The following is importantdischarge information regarding your hospital visit. Your Care Team LINA ZENDEJAS MD What to do next Scheduled Follow-Up Appointments Appointment Type When Where Contact InformationCV OV 06/14/2023 11:00 AM EDT [facility] [place] CV CV OV 07/03/2023 03:45 PM EDT [facility] 09/20/2023 03:30 PM EST [facility] 11/22/2023 04:30 PM EST [facility] [place] Follow Up Appointments Follow Up with LINA ZENDEJAS MD, [facility], Internal Medicine When Why: Follow-up as scheduled Where: [facility] [address] [place] [phone] Allergies Bactrim (Itching, Rash) Cigarette smoke (Watery eye, Nasal drainage) Dilaudid (Nausea and vomiting, Diarrhea, Dizziness) codeine (HALLUCINATIONS) ibuprofen (Itching) iodinated radiocontrast dyes (Racing heartbeat) morphine (Itching) sulfa drugs (Itching, Rash) Medications Please ask your primary doctor or pharmacist before taking any other medication not listed, including over the counter drugs, herbal medications, vitamins and or supplements as they may interact withyour home medications. What How Much When Instructions Last Dose Unchanged aspirin (Adult Aspirin 325 mg oral tablet) 1 tab(s) by mouth Three (3) times a day Unchanged bumetanide (bumetanide 1 mg oral tablet) 1 tab(s) by mouth Every day as needed for Swelling/weight gain Unchanged busPIRone (busPIRone 5 mg oral tablet) 1 tab(s) by mouth Three (3) times a day as needed for Anxiety Unchanged cholecalciferol (Vitamin D3 1000 intl units oral tablet) 1 tab(s) by mouth Once a day Unchanged colchicine (colchicine 0.6 mg oral tablet) 1 tab(s) by mouth Two (2) times a day Unchanged cyanocobalamin (cyanocobalamin 1000 mcg oral tablet) 1 tab(s) by mouth Once a day Unchanged dofetilide (Tikosyn 250 mcg oral capsule) 2 cap by mouth Two (2) times a day Unchanged magnesium oxide (magnesium oxide 250 mg oral tablet) 2 tab(s) by mouth Two (2) times a day Unchanged metoprolol (metoprolol succinate 25 mg oral TABLET extended release) See instructions 0.5 tab(s) NEEDED. Unchanged pantoprazole (pantoprazole 40 mg oral enteric coated tablet) 1 tab(s) by mouth Once a day Unchanged potassium chloride (Klor-Con M20 oral tablet, extended release) 1 tab(s) by mouth Once a day Unchanged rivaroxaban (Xarelto 20 mg oral tablet) 1 tab(s) by mouth Once a day Unchanged tadalafil (Tadalafil (Eqv-Cialis) 20 mg oral tablet) 1 tab(s) by mouth Two (2) times a day Please take this list to your next doctor s visit. Bring all medications you take, including over the counter medications, herbals and other supplements with you to your doctor s visit. Patients and families are reminded to discard old lists and to update any records with all medication providers or retail pharmacies. Education Materials DISCHARGE INSTRUCTIONS FOR CANCELLED PROCEDURES DIET Resume your regular diet that you had before your procedure unless otherwise instructed. ACTIVITY Resume your previous activities as tolerated unless otherwise instructed. IV DRESSING/WOUND CARE If you have had an IV inserted, you can remove the gauze dressing in 1 hour. CALL YOUR DOCTOR IF: You develop any new redness, swelling, or drainage around your IV insertion site. You have a temperature of 101 degrees or higher. PAIN Follow your doctors' instructions for pain management. You can take your usual huos-vge-puokwhn pain medication unless otherwise directed. HAND WASHING Always wash your hands before and after touching the IV insertion/dressing site. Frequent hand washing is the best way to prevent the spread of infection. FOLLOW-UP Keep your follow-up appointment. If an appointment has not been made for you, call your doctor's office to schedule. If you have any concerns before your appointment, call your doctor's office. Additional Information VACCINATE! IT SAVES LIVES! Members of the community who have not yet received the COVID-19 vaccine and would like to receive it can visit one of [facility] vaccine clinics. There are many vaccine clinic locations within the [facility]. For locations and available times, please visit https://gettheshot.coronavirus.[place].gov/. It is important to note that some COVID mobile vaccine clinics are held outdoors and may be canceled in rainy or stormy conditions. To learn more about pediatric vaccinations (ages 5-11), we invite you to visit the [facility] webpage. https://www.[facility].org/pages/4662-Eoljb-Oiazyyjosyx-Gngxtngdon-Wikbe-Qwz stions.htmlTo learn more about the COVID-19 vaccine, we invite you to visit the CDC website for a list of frequently asked questions.https://www.cdc.gov/coronavirus/2019-ncov/vaccines/faq.html [employer] Patient Portal Access Instructions: Stay connected with your healthcare team and access your personal medical information anytime with the [employer] Patient Portal. Please follow the directions below to create your [employer] account: 1.Access the email account you provided upon registration to the hospital/physician office.2.Look for an invitation email from [facility].3.Open the email and access the invitation link: AcceptInvitation to [employer].4.Fill in the required العلي to create your account. To access your account, visit [employer]. Click the blue button labeled Access Patient Portal and then log in with the username and password that you created in the steps above. You will be able to view your test results, lab results, a summary of your visits, upcoming appointments and more. There is also a convenient messaging option where you can send secure messages to your p rovider. In addition, you will have the ability to download any documents or summaries to your computer and/or send the information securely to a physician. Remember that your healthcare information is confidential, so carefully consider who you will allowto register on the [facility] Patient Portal for access to your information. You can also access the [facility] on the [facility]ena. Simply click on Patient Portal and then log into your account. If you would like to receive a full copy of your medical records, please contact the [facility] Medical Records Department by calling [phone], Saturday through Saturday between 8 a.m. and 4:30 p.m. HOW TO SAFELY DISPOSE OF PRESCRIPTION MEDICATIONS Please use one of the following methods to safely dispose of your unused medications. 1.Use a drug disposal kit: the drug disposal pouch allows you to safely discard your old and unuseddrugs. Ask your nurse to give you one when you are discharged.2.Visit a local take-back location: Many local pharmacies and police departments have programs that collect old and unwanted prescriptiondrugs. Call your local pharmacy or go to http://bideo.com.[employer]/1F0Ub4l to find one close to you.3.Make use of household items: Use cat litter or old coffee grounds to dispose medications if other options arenot available. Mix your drugs with these household products, seal them in an airtight container andthrow it into the garbage. Call [facility]: [phone] to be sure your drugs can be disposed of in this way. Some medicines may require a different approach.4.Never flush your medications down the toilet. IF YOU HAVE BEEN PRESCRIBED AN OPIOID FOR PAIN If you have been prescribed an opioid (such as hydrocodone, oxycodone or morphine), it is critical to understand the possible side effects and risks of opioid pain medications. Even when taken as directed, opioids can have several side effects including: Tolerance, meaning you might need to take more of a medication for the same pain relief. Nausea, vomiting and/or constipation. Sleepiness, dizziness, dry mouth, confusion, depression or itching. Physical dependence, meaning you have withdrawal symptoms when a medication is stopped, can develop within a few days. KNOW YOUR RESPONSIBILITIES It is important to know exactly how much and how often to take the opioid pain medications you are prescribed. Never take opioids in higher amounts or more often than prescribed. Do not combine opioids with alcohol or other drugs that cause drowsiness, such as benzodiazepines, also known as benzos, including diazepam and alprazolam, muscle relaxants or sleep aids. Never sell or share prescription opioids. This is illegal. Store opioids in a secure place and out of reach of others (including children, family, friends and visitors). The last page of this document has been signed and retained as a CHART COPY. Signatures Patient Education Materials Cardiac SD - Discharge Instructions for Cancelled Procedures 04/2022(CUSTOM) Medication Leaflets My discharge plan and instructions have been reviewed and explained to me and I,DORCAS ANGULO understand my current condition and have read and understand these discharge instructions. I have received a written copy of the plan/instructions. If I have questions, I am aware that I should contact my doctor. 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 There is no focal consolidation. There is no pulmonary edema. There is no evidence of pleural effusion. There is no evidence of pneumothorax. No fracture is identified. IMPRESSION: No acute abnormality is identified. Interpreted by: David Palma Preliminary Report By: David Palma Electronically signed By David Palma Dictated Date: 05/31/2023 7:53:44 PM Prelim Date: 05/31/2023 7:54:07 PM Sign Date: 05/31/2023 7:54:07 PM Ordering Provider: [facility]08-14-2023 Hospital Discharge instructions Patient Education 05/06/2023 15:46:03 Atrial Fibrillation Atrial Fibrillation Atrial fibrillation is a type of irregular or rapid heartbeat (arrhythmia). In atrial fibrillation,the top part of the heart (atria) quivers in a chaotic pattern. This makes the heart unable to pumpblood normally. Having atrial fibrillation can increase your risk for other health problems, such as: Blood can pool in the atria and form clots. If a clot travels to the brain, it can cause a stroke. The heart muscle may weaken from the irregular blood flow. This can cause heart failure. Atrial fibrillation may start suddenly and stop on its own, or it may become a long-lasting problem. What are the causes? This condition is caused by some heart-related conditions or procedures, including: High blood pressure. This is the most common cause. Heart failure. Heart valve conditions. Inflammation of the sac that surrounds the heart (pericarditis). Heart surgery. Coronary artery disease. Certain heart rhythm disorders, such as Gomez Parkinson White syndrome. Other causes include: Pneumonia. Obstructive sleep apnea. Lung cancer. Thyroid problems, especially if the thyroid is overactive (hyperthyroidism). Excessive alcohol or drug use. Sometimes, the cause of this condition is not known. What increases the risk? This condition is more likely to develop in: Older people. People who smoke. People who have diabetes mellitus. People who are overweight (obese). Athletes who exercise vigorously. People who have a family history. What are the signs or symptoms? Symptoms of this condition include: A feeling that your heart is beating rapidly or irregularly. A feeling of discomfort or pain in your chest. Shortness of breath. Sudden light-headedness or weakness. Getting tired easily during exercise. In some cases, there are no symptoms. How is this diagnosed? Your health care provider may be able to detect atrial fibrillation when taking your pulse. If detected, this condition may be diagnosed with: Electrocardiogram (ECG). Ambulatory ekg monitor tech. This device records your heartbeats for 24 hours or more. Transthoracic echocardiogram (TTE) to evaluate how blood flows through your heart. Transesophageal echocardiogram (ANTON) to view more detailed images of your heart. A stress test. Imaging tests, such as a CT scan or chest X-ray. Blood tests. How is this treated? This condition may be treated with: Medicines to slow down the heart rate or bring the heart's rhythm back to normal. Medicines to prevent blood clots from forming. Electrical cardioversion. This delivers a low-energy shock to the heart to reset its rhythm. Ablation. This procedure destroys the part of the heart tissue that sends abnormal signals. Left atrial appendage occlusion/excision. This seals off a common place in the atria where blood clots can form (left atrial appendage). The goal of treatment is to prevent blood clots from forming and to keep your heart beating at a normal rate and rhythm. Treatment depends on underlying medical conditions and how you feel when you are experiencing fibrillation. Follow these instructions at home: Medicines Take over-the counter and prescription medicines only as told by your health care provider. If your health care provider prescribed a blood-thinning medicine (anticoagulant), take it exactly as told. Taking too much blood-thinning medicine can cause bleeding. Taking too little can enable a blood clot to form and travel to the brain, causing a stroke. Lifestyle Do not use any products that contain nicotine or tobacco, such as cigarettes and e-cigarettes. If you need help quitting, ask your health care provider. Do not drink beverages that contain caffeine, such as coffee, soda, and tea. Follow diet instructions as told by your health care provider. Exercise regularly as told by your health care provider. Do not drink alcohol. General instructions If you have obstructive sleep apnea, manage your condition as told by your health care provider. Maintain a healthy weight. Do not use diet pills unless your health care provider approves. Diet pills may make heart problems worse. Keep all follow-up visits as told by your health care provider. This is important. Contact a health care provider if you: Notice a change in the rate, rhythm, or strength of your heartbeat. Are taking an anticoagulant and you notice increased bruising. Tire more easily when you exercise or exert yourself. Have a sudden change in weight. Get help right away if you have: Chest pain, abdominal pain, sweating, or weakness. Difficulty breathing. Blood in your vomit, stool (feces), or urine. Any symptoms of a stroke. BE FAST is an easy way to remember the main warning signs of a stroke: ?B - Balance. Signs are dizziness, sudden trouble walking, or loss of balance. ?E - Eyes. Signs are trouble seeing or a sudden change in vision. ?F - Face. Signs are sudden weakness or numbness of the face, or the face or eyelid drooping on oneside. ?A - Arms. Signs are weakness or numbness in an arm. This happens suddenly and usually on one side of the body. ?S - Speech. Signs are sudden trouble speaking, slurred speech, or trouble understanding what people say. ?T - Time. Time to call emergency services. Write down what time symptoms started. Other signs of a stroke, such as: ?A sudden, severe headache with no known cause. ?Nausea or vomiting. ?Seizure. These symptoms may represent a serious problem that is an emergency. Do not wait to see if the symptoms will go away. Get medical help right away. Call your local emergency services (911 in the [place] Do not drive yourself to the hospital. Summary Atrial fibrillation is a type of irregular or rapid heartbeat (arrhythmia). Symptoms include a feeling that your heart is beating fast or irregularly. In some cases, you may not have symptoms. The condition is treated with medicines to slow down the heart rate or bring the heart's rhythm back to normal. You may also need blood-thinning medicines to prevent blood clots. Get help right away if you have symptoms or signs of a stroke. This information is not intended to replace advice given to you by your health care provider. Make sure you discuss any questions you have with your health care provider. Document Released: 09/09/2006 Document Revised: 10/30/2018 Document Reviewed: 10/31/2018 [employer] Patient Education 2020 [employer] Follow Up Care 04/10/2023 09:52:41 With:AMARIS RUIZ APRN-[facility] Address: [address] [facility] [address] [facility] [place] [address] [phone] When:05/20/2023 10:00:00 Comments:Please obtain labs and chest x-ray prior to this appointment [facility] Address: When: Unknown Comments:Home health care RN, a nurse will be calling you before coming out to the home. [phone]. Call with any questions or concerns. With:LINA ZENDEJAS MD, [facility], Internal Medicine Address: [facility] [address] [place] [phone] When: Unknown Comments:PLEASE CALL THIS OFFICE TO SCHEDULE A HOSPITAL FOLLOW UP APPOINTMENT. With:HANK MCMULLEN MD Address: [address] [facility] [address] [facility] [place] [address]- [phone] When:09/20/2023 15:30:00 [facility] 08-14-2023 Note Discharge Instructions Thank you for allowing [facility] to assist you with your healthcare needs. The following is importantdischarge information regarding your hospital visit. Your Care Team LINA ZENDEJAS MD Your Diagnosis Acute blood loss anemia Acute pain Acute pericarditis ASD (atrial septal defect) Atrial fibrillation s/p Convergent Maze, RICHARD Clip, 04/30/2023 GERD - Gastro-esophageal reflux disease Heart failure Hypertension FARSHAD (obstructive sleep apnea) Pulmonary HTN STEATOHEPATITIS, NONALCOHOLIC What to do next Scheduled Follow-Up Appointments Appointment Type When With Where Contact InformationTelephone 05/08/2023 08:00 AM [place] AMARIS RUIZ APRN-[facility] Pending Sale To [facility] CTS OV Post Op 05/20/2023 10:00 AM AMARIS WEBB Cardiothoracic Surgery CV OV 09/20/2023 03:30 PM EST [facility] CV OV 11/22/2023 04:30 PM EST [facility] To [facility] Follow Up Appointments Follow Up with HANK MCMULLEN MD When 09/20/2023 03:30 PM EST Where: [address] [facility] [address] [facility] [place] [address]- [phone] Follow Up with AMARIS RUIZ When 05/20/2023 10:00 AM EDT Why: Please obtain labs and chest x-ray prior to this appointment Where: [address] [facility] [address] [facility] [place] [address]- [phone] Follow Up with [facility] When Why: Home health care RN, a nurse will be calling you before coming out to the home. [phone]. Call with any questions or concerns. Where: Follow Up with LINA ZENDEJAS MD, [facility], Internal Medicine When Why: PLEASE CALL THIS OFFICE TO SCHEDULE A HOSPITAL FOLLOW UP APPOINTMENT. Where: [facility] [address] [place] [address] [phone] The Following Activity and Diet Have Been Ordered for You Discharge Activity - Ordered -- Lifting Restricted less than 10 pounds May Shower, NO DRIVING FOR 4 WEEKS, 05/06/23 12:34:00 EDT Discharge Diet - Ordered -- Type of Diet: Regular, Diet Restrictions: Cardiac diet Low cholesterol, 05/06/23 12:34:00 EDT The Following Equipment Has Been Ordered for You Discharge Home Equipment Discharge Wound Care - Ordered -- Wash your chest incisionS daily with soap and water, 05/06/23 12:34:00 EDT The Following Treatments Have Been Ordered for You Discharge Labs Discharge Outpatient Labwork - Ordered -- CRP, sed rate, Pericarditis, follow-up within: 2 weeks, Please call results to Dr. Mcmullen, 05/06/23 12:34:00 EDT Discharge Radiology Discharge Outpatient Radiology - Ordered -- PA and lateral chest x-ray, Pleural effusions, Please arrive at least 1 hour prior to your scheduled appointment and have the chest x-ray done at [facility] outpatient [facility], 05/06/23 12:34:00 EDT Other Therapies No qualifying data available. Post Acute Orders No qualifying data available. Someone Will Contact You Regarding These Home Health Referrals No home referrals have been ordered for you. No one will call you. Allergies Bactrim (Itching, Rash) Cigarette smoke (Watery eye, Nasal drainage) Dilaudid (Nausea and vomiting, Diarrhea, Dizziness) codeine (HALLUCINATIONS) ibuprofen (Itching) iodinated radiocontrast dyes (Racing heartbeat) morphine (Itching) sulfa drugs (Itching, Rash) Medications Please ask your primary doctor or pharmacist before taking any other medication not listed, including over the counter drugs, herbal medications, vitamins and or supplements as they may interact withyour home medications. What How Much When Why Instructions Last Dose New colchicine (colchicine 0.6 mg oral tablet) 1 tab(s) by mouth Once a day Refills: 2 Pickup at [facility] New oxyCODONE (oxyCODONE 5 mg oral tablet ( IMMEDIATE release )) 1 tab(s) by mouth Every 6 hours as needed for Pain, scale 7-10 Atrial fibrillation s/p RICHARD Telles, 04/30/2023 Acute pain Duration: 7 Days Pickup at [facility] Changed acetaminophen (Tylenol 325 mg oral capsule) 650 Milligram by mouth Every 4 hours as needed for Pain, scale 1-6 Changed aspirin (aspirin 325 mg oral delayed release tablet) 1 tab(s) by mouth Every 8 hours Duration: 5 Days after 5 days, then resume ASA 81 mg daily do not crush or chew Pickup at [facility] Changed aspirin (aspirin 81 mg oral delayed release tablet) 1 tab(s) by mouth Once a day Pickup at [facility] Unchanged bumetanide (bumetanide 1 mg oral tablet) 1 tab(s) by mouth Every day as needed for Swelling/weight gain Unchanged busPIRone (busPIRone 5 mg oral tablet) 1 tab(s) by mouth Three (3) times a day as needed for Anxiety Unchanged cholecalciferol (Vitamin D3 1000 intl units oral tablet) 1 tab(s) by mouth Once a day Unchanged cyanocobalamin (cyanocobalamin 1000 mcg oral tablet) 1 tab(s) by mouth Once a day Unchanged dofetilide (Tikosyn 250 mcg oral capsule) 2 cap by mouth Two (2) times a day Unchanged magnesium oxide (magnesium oxide 250 mg oral tablet) 2 tab(s) by mouth Two (2) times a day Unchanged metoprolol (metoprolol succinate 25 mg oral TABLET extended release) See instructions 0.5 tab(s) NEEDED. Unchanged potassium chloride (Klor-Con M20 oral tablet, extended release) 1 tab(s) by mouth Once a day Unchanged rivaroxaban (Xarelto 20 mg oral tablet) 1 tab(s) by mouth Once a day Unchanged tadalafil (Tadalafil (Eqv-Cialis) 20 mg oral tablet) 1 tab(s) by mouth Two (2) times a day Pharmacy Information [facility]: [address] [place] [address] [phone] Please take this list to your next doctor s visit. Bring all medications you take, including over the counter medications, herbals and other supplements with you to your doctor s visit. Patients and families are reminded to discard old lists and to update any records with all medication providers or retail pharmacies. Education Materials Atrial Fibrillation Atrial fibrillation is a type of irregular or rapid heartbeat (arrhythmia). In atrial fibrillation,the top part of the heart (atria) quivers in a chaotic pattern. This makes the heart unable to pumpblood normally. Having atrial fibrillation can increase your risk for other health problems, such as: Blood can pool in the atria and form clots. If a clot travels to the brain, it can cause a stroke. The heart muscle may weaken from the irregular blood flow. This can cause heart failure. Atrial fibrillation may start suddenly and stop on its own, or it may become a long-lasting problem. What are the causes? This condition is caused by some heart-related conditions or procedures, including: High blood pressure. This is the most common cause. Heart failure. Heart valve conditions. Inflammation of the sac that surrounds the heart (pericarditis). Heart surgery. Coronary artery disease. Certain heart rhythm disorders, such as Gomez Parkinson White syndrome. Other causes include: Pneumonia. Obstructive sleep apnea. Lung cancer. Thyroid problems, especially if the thyroid is overactive (hyperthyroidism). Excessive alcohol or drug use. Sometimes, the cause of this condition is not known. What increases the risk? This condition is more likely to develop in: Older people. People who smoke. People who have diabetes mellitus. People who are overweight (obese). Athletes who exercise vigorously. People who have a family history. What are the signs or symptoms? Symptoms of this condition include: A feeling that your heart is beating rapidly or irregularly. A feeling of discomfort or pain in your chest. Shortness of breath. Sudden light-headedness or weakness. Getting tired easily during exercise. In some cases, there are no symptoms. How is this diagnosed? Your health care provider may be able to detect atrial fibrillation when taking your pulse. If detected, this condition may be diagnosed with: Electrocardiogram (ECG). Ambulatory ekg monitor tech. This device records your heartbeats for 24 hours or more. Transthoracic echocardiogram (TTE) to evaluate how blood flows through your heart. Transesophageal echocardiogram (ANOTN) to view more detailed images of your heart. A stress test. Imaging tests, such as a CT scan or chest X-ray. Blood tests. How is this treated? This condition may be treated with: Medicines to slow down the heart rate or bring the heart's rhythm back to normal. Medicines to prevent blood clots from forming. Electrical cardioversion. This delivers a low-energy shock to the heart to reset its rhythm. Ablation. This procedure destroys the part of the heart tissue that sends abnormal signals. Left atrial appendage occlusion/excision. This seals off a common place in the atria where blood clots can form (left atrial appendage). The goal of treatment is to prevent blood clots from forming and to keep your heart beating at a normal rate and rhythm. Treatment depends on underlying medical conditions and how you feel when you are experiencing fibrillation. Follow these instructions at home: Medicines Take over-the counter and prescription medicines only as told by your health care provider. If your health care provider prescribed a blood-thinning medicine (anticoagulant), take it exactly as told. Taking too much blood-thinning medicine can cause bleeding. Taking too little can enable a blood clot to form and travel to the brain, causing a stroke. Lifestyle Do not use any products that contain nicotine or tobacco, such as cigarettes and e-cigarettes. If you need help quitting, ask your health care provider. Do not drink beverages that contain caffeine, such as coffee, soda, and tea. Follow diet instructions as told by your health care provider. Exercise regularly as told by your health care provider. Do not drink alcohol. General instructions If you have obstructive sleep apnea, manage your condition as told by your health care provider. Maintain a healthy weight. Do not use diet pills unless your health care provider approves. Diet pills may make heart problems worse. Keep all follow-up visits as told by your health care provider. This is important. Contact a health care provider if you: Notice a change in the rate, rhythm, or strength of your heartbeat. Are taking an anticoagulant and you notice increased bruising. Tire more easily when you exercise or exert yourself. Have a sudden change in weight. Get help right away if you have: Chest pain, abdominal pain, sweating, or weakness. Difficulty breathing. Blood in your vomit, stool (feces), or urine. Any symptoms of a stroke. BE FAST is an easy way to remember the main warning signs of a stroke: ? B - Balance. Signs are dizziness, sudden trouble walking, or loss of balance. ? E - Eyes. Signs are trouble seeing or a sudden change in vision. ? F - Face. Signs are sudden weakness or numbness of the face, or the face or eyelid drooping on one side. ? A - Arms. Signs are weakness or numbness in an arm. This happens suddenly and usually on one side of the body. ? S - Speech. Signs are sudden trouble speaking, slurred speech, or trouble understanding what peoplesay. ? T - Time. Time to call emergency services. Write down what time symptoms started. Other signs of a stroke, such as: ? A sudden, severe headache with no known cause. ? Nausea or vomiting. ? Seizure. These symptoms may represent a serious problem that is an emergency. Do not wait to see if the symptoms will go away. Get medical help right away. Call your local emergency services (911 in the [place] Do not drive yourself to the hospital. Summary Atrial fibrillation is a type of irregular or rapid heartbeat (arrhythmia). Symptoms include a feeling that your heart is beating fast or irregularly. In some cases, you may not have symptoms. The condition is treated with medicines to slow down the heart rate or bring the heart's rhythm back to normal. You may also need blood-thinning medicines to prevent blood clots. Get help right away if you have symptoms or signs of a stroke. This information is not intended to replace advice given to you by your health care provider. Make sure you discuss any questions you have with your health care provider. Document Released: 09/09/2006 Document Revised: 10/30/2018 Document Reviewed: 10/31/2018 Incentive Targeting Patient Education 2020 [employer]. Additional Information VACCINATE! IT SAVES LIVES! Members of the community who have not yet received the COVID-19 vaccine and would like to receive it can visit one of [facility] vaccine clinics. There are many vaccine clinic locations within the [facility]. For locations and available times, please visit [email or web address].gov/. It is important to note that some COVID mobile vaccine clinics are held outdoors and may be canceled in rainy or stormy conditions. To learn more about pediatric vaccinations (ages 5-11), we invite you to visit the [facility] webpage. [email or web address]/[email or web address]-Pehowqwsawh-Hjkphtonfh-Xpaen-Hce stions.htmlTo learn more about the COVID-19 vaccine, we invite you to visit the CDC website for a list of frequently asked questions.https://www.cdc.gov/coronavirus/2019-ncov/vaccines/faq.html [employer] Patient Portal Access Instructions: Stay connected with your healthcare team and access your personal medical information anytime with the [employer] Patient Portal. Please follow the directions below to create your [employer] account: 1.Access the email account you provided upon registration to the hospital/physician office.2.Look for an invitation email from [facility].3.Open the email and access the invitation link: AcceptInvitation to [employer].4.Fill in the required العلي to create your account. To access your account, visit [employer]. Click the blue button labeled Access Patient Portal and then log in with the username and password that you created in the steps above. You will be able to view your test results, lab results, a summary of your visits, upcoming appointments and more. There is also a convenient messaging option where you can send secure messages to your p rovider. In addition, you will have the ability to download any documents or summaries to your computer and/or send the information securely to a physician. Remember that your healthcare information is confidential, so carefully consider who you will allowto register on the [employer] Patient Portal for access to your information. You can also access the [employer] Patient Portal on the [employer] [facility] aleena. Simply click on Patient Portal and then log into your account. If you would like to receive a full copy of your medical records, please contact the [facility] Medical Records Department by calling [phone], Saturday through Saturday between 8 a.m. and 4:30 p.m. HOW TO SAFELY DISPOSE OF PRESCRIPTION MEDICATIONS Please use one of the following methods to safely dispose of your unused medications. 1.Use a drug disposal kit: the drug disposal pouch allows you to safely discard your old and unuseddrugs. Ask your nurse to give you one when you are discharged.2.Visit a local take-back location: Many local pharmacies and police departments have programs that collect old and unwanted prescriptiondrugs. Call your local pharmacy or go to http://Blossom/6C1Vb9q to find one close to you.3.Make use of household items: Use cat litter or old coffee grounds to dispose medications if other options arenot available. Mix your drugs with these household products, seal them in an airtight container andthrow it into the garbage. Call [facility]: [phone] to be sure your drugs can be disposed of in this way. Some medicines may require a different approach.4.Never flush your medications down the toilet. IF YOU HAVE BEEN PRESCRIBED AN OPIOID FOR PAIN If you have been prescribed an opioid (such as hydrocodone, oxycodone or morphine), it is critical to understand the possible side effects and risks of opioid pain medications. Even when taken as directed, opioids can have several side effects including: Tolerance, meaning you might need to take more of a medication for the same pain relief. Nausea, vomiting and/or constipation. Sleepiness, dizziness, dry mouth, confusion, depression or itching. Physical dependence, meaning you have withdrawal symptoms when a medication is stopped, can develop within a few days. KNOW YOUR RESPONSIBILITIES It is important to know exactly how much and how often to take the opioid pain medications you are prescribed. Never take opioids in higher amounts or more often than prescribed. Do not combine opioids with alcohol or other drugs that cause drowsiness, such as benzodiazepines, also known as benzos, including diazepam and alprazolam, muscle relaxants or sleep aids. Never sell or share prescription opioids. This is illegal. Store opioids in a secure place and out of reach of others (including children, family, friends and visitors). The last page of this document has been signed and retained as a CHART COPY. Signatures Patient Education Materials Atrial Fibrillation Medication Leaflets My discharge plan and instructions have been reviewed and explained to me and I,KEV DORCAS Siri understand my current condition and have read and understand these discharge instructions. I have received a written copy of the plan/instructions. If I have questions, I am aware that I should contact my doctor. 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 The following is importantdischarge information regarding your hospital visit. Your Care Team LINA ZENDEJAS MD Your Diagnosis Acute blood loss anemia Acute pain Acute pericarditis ASD (atrial septal defect) Atrial fibrillation s/p RICHARD Telles, 04/30/2023 GERD - Gastro-esophageal reflux disease Heart failure Hypertension FARSHAD (obstructive sleep apnea) Pulmonary HTN STEATOHEPATITIS, NONALCOHOLIC What to do next Scheduled Follow-Up Appointments Appointment Type When With Where Contact InformationTelephone 05/08/2023 08:[facility] Post Op 05/20/2023 10:00 AM AMARIS WEBB Cardiothoracic Surgery CV OV 09/20/2023 03:30 PM EST [facility] 11/22/2023 04:30 PM EST [facility] Follow Up Appointments Follow Up with HANK MCMULLEN MD When 09/20/2023 03:30 PM EST Where: [address] [facility] [place] [address]- [phone] Follow Up with AMARIS RUIZ When 05/20/2023 10:00 AM EDT Why: Please obtain labs and chest x-ray prior to this appointment Where: [address] [facility] [address] [facility] [place] [address] [phone] Follow Up with [facility] When Why: Home health care RN, a nurse will be calling you before coming out to the home. [phone]. Call with any questions or concerns. Where: Follow Up with LINA ZENDEJAS MD, [facility], Internal Medicine When Why: PLEASE CALL THIS OFFICE TO SCHEDULE A HOSPITAL FOLLOW UP APPOINTMENT. Where: [facility] [address] [place] [address]- [phone] The Following Activity and Diet Have Been Ordered for You No qualifying data available. No qualifying data available. The Following Equipment Has Been Ordered for You No qualifying data available. The Following Treatments Have Been Ordered for You Discharge Labs No qualifying data available. Discharge Radiology No qualifying data available. Other Therapies No qualifying data available. Post Acute Orders No qualifying data available. Someone Will Contact You Regarding These Home Health Referrals No home referrals have been ordered for you. No one will call you. Allergies Bactrim (Itching, Rash) Cigarette smoke (Watery eye, Nasal drainage) Dilaudid (Nausea and vomiting, Diarrhea, Dizziness) codeine (HALLUCINATIONS) ibuprofen (Itching) iodinated radiocontrast dyes (Racing heartbeat) morphine (Itching) sulfa drugs (Itching, Rash) Medications Please ask your primary doctor or pharmacist before taking any other medication not listed, including over the counter drugs, herbal medications, vitamins and or supplements as they may interact withyour home medications. What How Much When Why Instructions Last Dose New colchicine (colchicine 0.6 mg oral tablet) 1 tab(s) by mouth Once a day Refills: 2 Pickup at [facility] New oxyCODONE (oxyCODONE 5 mg oral tablet ( IMMEDIATE release )) 1 tab(s) by mouth Every 6 hours as needed for Pain, scale 7-10 Atrial fibrillation s/p Convergent Maze, RICHARD Clip, 04/30/2023 Acute pain Duration: 7 Days Pickup at [facility] Changed acetaminophen (Tylenol 325 mg oral capsule) 650 Milligram by mouth Every 4 hours as needed for Pain, scale 1-6 Changed aspirin (aspirin 325 mg oral delayed release tablet) 1 tab(s) by mouth Every 8 hours Pickup at [facility] Unchanged bumetanide (bumetanide 1 mg oral tablet) 1 tab(s) by mouth Every day as needed for Swelling/weight gain Unchanged busPIRone (busPIRone 5 mg oral tablet) 1 tab(s) by mouth Three (3) times a day as needed for Anxiety Unchanged cholecalciferol (Vitamin D3 1000 intl units oral tablet) 1 tab(s) by mouth Once a day Unchanged cyanocobalamin (cyanocobalamin 1000 mcg oral tablet) 1 tab(s) by mouth Once a day Unchanged dofetilide (Tikosyn 250 mcg oral capsule) 2 cap by mouth Two (2) times a day Unchanged magnesium oxide (magnesium oxide 250 mg oral tablet) 2 tab(s) by mouth Two (2) times a day Unchanged metoprolol (metoprolol succinate 25 mg oral TABLET extended release) See instructions 0.5 tab(s) NEEDED. Unchanged potassium chloride (Klor-Con M20 oral tablet, extended release) 1 tab(s) by mouth Once a day Unchanged rivaroxaban (Xarelto 20 mg oral tablet) 1 tab(s) by mouth Once a day Unchanged tadalafil (Tadalafil (Eqv-Cialis) 20 mg oral tablet) 1 tab(s) by mouth Two (2) times a day Pharmacy Information [facility]: [address] [place] [address] [phone] Please take this list to your next doctor s visit. Bring all medications you take, including over the counter medications, herbals and other supplements with you to your doctor s visit. Patients and families are reminded to discard old lists and to update any records with all medication providers or retail pharmacies. Additional Information VACCINATE! IT SAVES LIVES! Members of the community who have not yet received the COVID-19 vaccine and would like to receive it can visit one of [facility] vaccine clinics. There are many vaccine clinic locations within the State. For locations and available times, please visit [email or web address]/. It is important to note that some COVID mobile vaccine clinics are held outdoors and may be canceled in rainy or stormy conditions. To learn more about pediatric vaccinations (ages 5-11), we invite you to visit the [facility] webpage. https://[email or web address]/[email or web address] [email or web address] learn more about the COVID-19 vaccine, we invite you to visit the CDC website for a list of frequently asked questions.https://www.cdc.gov/coronavirus/2019-ncov/vaccines/faq.html [employer] Patient Portal Access Instructions: Stay connected with your healthcare team and access your personal medical information anytime with the [employer] Patient Portal. Please follow the directions below to create your [employer] account: 1.Access the email account you provided upon registration to the hospital/physician office.2.Look for an invitation email from [facility].3.Open the email and access the invitation link: AcceptInvitation to [facility].4.Fill in the required العلي to create your account. To access your account, visit [employer]hart. Click the blue button labeled Access Patient Portal and then log in with the username and password that you created in the steps above. You will be able to view your test results, lab results, a summary of your visits, upcoming appointments and more. There is also a convenient messaging option where you can send secure messages to your p rovider. In addition, you will have the ability to download any documents or summaries to your computer and/or send the information securely to a physician. Remember that your healthcare information is confidential, so carefully consider who you will allowto register on the [employer] Patient Portal for access to your information. You can also access the [facility] Patient Portal on the [employer]ena. Simply click on Patient Portal and then log into your account. If you would like to receive a full copy of your medical records, please contact the [facility] Medical Records Department by calling [phone], Saturday through Saturday between 8 a.m. and 4:30 p.m. HOW TO SAFELY DISPOSE OF PRESCRIPTION MEDICATIONS Please use one of the following methods to safely dispose of your unused medications. 1.Use a drug disposal kit: the drug disposal pouch allows you to safely discard your old and unuseddrugs. Ask your nurse to give you one when you are discharged.2.Visit a local take-back location: Many local pharmacies and police departments have programs that collect old and unwanted prescriptiondrugs. Call your local pharmacy or go to http://bideo.com.[employer]/3W2Vv8p to find one close to you.3.Make use of household items: Use cat litter or old coffee grounds to dispose medications if other options arenot available. Mix your drugs with these household products, seal them in an airtight container andthrow it into the garbage. Call [facility]: [phone] to be sure your drugs can be disposed of in this way. Some medicines may require a different approach.4.Never flush your medications down the toilet. IF YOU HAVE BEEN PRESCRIBED AN OPIOID FOR PAIN If you have been prescribed an opioid (such as hydrocodone, oxycodone or morphine), it is critical to understand the possible side effects and risks of opioid pain medications. Even when taken as directed, opioids can have several side effects including: Tolerance, meaning you might need to take more of a medication for the same pain relief. Nausea, vomiting and/or constipation. Sleepiness, dizziness, dry mouth, confusion, depression or itching. Physical dependence, meaning you have withdrawal symptoms when a medication is stopped, can develop within a few days. KNOW YOUR RESPONSIBILITIES It is important to know exactly how much and how often to take the opioid pain medications you are prescribed. Never take opioids in higher amounts or more often than prescribed. Do not combine opioids with alcohol or other drugs that cause drowsiness, such as benzodiazepines, also known as benzos, including diazepam and alprazolam, muscle relaxants or sleep aids. Never sell or share prescription opioids. This is illegal. Store opioids in a secure place and out of reach of others (including children, family, friends and visitors). The last page of this document has been signed and retained as a CHART COPY. Signatures Patient Education Materials Medication Leaflets My discharge plan and instructions have been reviewed and explained to me and RAMYA DiazKEV DORCAS Siri understand my current condition and have read and understand these discharge instructions. I have received a written copy of the plan/instructions. If I have questions, I am aware that I should contact my doctor. 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: Date/Time: Relationship to Patient: Witness Name/Signature: Date/Time: [id number] Discharge summary Date of Service 05/06/23 Discharge Diagnosis Other persistent atrial fibrillation (I48.19 - ICD-10-CM) Atrial septal defect, unspecified (Q21.10 - ICD-10-CM) Acute pericarditis, unspecified (I30.9 - ICD-10-CM) Acute posthemorrhagic anemia (D62 - ICD-10-CM) Unspecified cirrhosis of liver (K74.60 - ICD-10-CM) Pulmonary hypertension, unspecified (I27.20 - ICD-10-CM) Obstructive sleep apnea (adult) (pediatric) (G47.33 - ICD-10-CM) Gastro-esophageal reflux disease without esophagitis (K21.9 - ICD-10-CM) Essential (primary) hypertension (I10 - ICD-10-CM) Heart failure, unspecified (I50.9 - ICD-10-CM) ASD (atrial septal defect) (Q21.1 - ICD-10-CM) Acute blood loss anemia (D62 - ICD-10-CM) Acute pain (R52 - ICD-10-CM) Ordered: oxyCODONE 5 mg oral tablet ( IMMEDIATE release ); Dose : 5 mg= 1 tab(s), Oral, q6hr, PRN Pain, scale 7-10, X 7 day(s), # 28 tab(s), 0 Refill(s), 05/13/23 10:23:00 EDT, Pharmacy: [facility], Atrial fibrillation s/p Convergent Maze, RICHARD Clip, 04/30/2023 Acute pain, 165, cm, 04/30/23 5:4... Acute pericarditis (I30.9 - ICD-10-CM) Atrial fibrillation s/p Convergent Maze, RICHARD Clip, 04/30/2023 (I48.91 - ICD-10-CM) Ordered: oxyCODONE5 mg oral tablet ( IMMEDIATE release ); Dose : 5 mg = 1 tab(s), Oral, q6hr, PRN Pain, scale 7-10, X7 day(s), # 28 tab(s), 0 Refill(s), 05/13/23 10:23:00 EDT, Pharmacy: [facility], Atrial fibrillation s/p Convergent Maze, RICHARD Clip, 04/30/2023 Acute pain, 165, cm, 04/30/23 5:4... GERD - Gastro-esophageal reflux disease (K21.9 - ICD-10-CM) Heart failure (I50.9 - ICD-10-CM) Hypertension (I10 - ICD-10-CM) FARSHAD (obstructive sleep apnea) (G47.33 - ICD-10-CM) Pulmonary HTN (I27.20 - ICD-10-CM) STEATOHEPATITIS, NONALCOHOLIC (K75.81 - ICD-10-CM) Additional Orders: Ordered: Tylenol 325 mg oral capsule,Dose : 650 mg =, Oral, q4h, PRN Pain, scale 1-6, 0 Refill(s) Ordered: aspirin 325 mg oral delayed release tablet,Dose : 325 mg = 1 tab(s), Oral, q8h, 0 Refill(s) Ordered: colchicine 0.6 mg oral tablet,Dose : 0.6 mg = 1 tab(s), Oral, qDay, # 30 tab(s), 2 Refill(s), Pharmacy: [facility], 165, cm, 04/30/23 5:47:00 EDT, Height, kg, 05/05/23 9:11:00EDT, Dosing Weight End of Orders Hospital Course This is a 62-year-old female with significant past medical history of ABARCA liver cirrhosis, hypothyroidism, ostium secundum ASD s/p closure with 14 mm Amplatz device, mild pulmonary hypertension (on tadalafil) , and atrial fibrillation (metoprolol, Tikosyn, and Xarelto) who presents for evaluation for left atrial appendage occlusion and left atrial appendage ligation/convergent procedure.. She has intermittent atrial fibrillation. However, she has quite symptomatic episodes that occur approximately twice per week. Denies chest pain. Episodes last 8 hours. Triggers are anxiety, ( with PTSD), caffeine and chocolate. On 04/30/2023 patient underwent a convergent maze procedure via subxiphoid approach, ligation of left atrial appendage with 40 mm AtriCure clip, ANTON. She tolerated the procedure well was transferred to the CV SICU in stable condition. She was recovered in the CV SICU. Cardiology was consulted urgently overnight due to abnormal EKG, patient with complaints of severe pleuritic chest pain worsening with deep inspiration or coughing, as well as left shoulder pain. EKG with widespread ST elevation. Triphasic pericardial friction rub. Toradol, colchicine, and troponin trending ordered. POD #1: Patient states pain eased with Toradol and colchicine last p.m. Left lateral chest tube milked for clot and patient complained of increased left shoulder pain, Toradol given IV. Continue Toradol for 24 hours. Possibly DC left lateral chest tube later today. Transfer to stepdown. POD #2 she continues to have slightly increased rate of her atrial fibrillation in the 1 teens [id number]. Received IV Lopressor last night per EP. Mediastinal chest tubes discontinued later in the day. POD #3: Still with complaints of chest discomfort especially with movement. Rub less audible. TEEfor evaluation of RICHARD closure completed. Patient also had DCC procedure but did not remain in normal sinus rhythm. Has episodes of atrial fibrillation in sinus rhythm. Remains on Xarelto and Tikosyn.Postop day #4. Monitor showed normal sinus rhythm this morning. Patient is okay for discharge per ca rdiothoracic surgery standpoint. She did go back into atrial fibrillation with RVR around 11:30 this morning. Cardiology wants to keep her in the hospital at this time. Possible cardioversion again on Saturday. Postop day #4. Currently in normal sinus rhythm. Was given to IV Cardizem doses per cardiology last evening for atrial fibrillation. Cardiology plan pending. POD #5, 05/06/2023 cardiology okay for patient discharge, on aspirin 325 mg daily, continue colchicine 0.6 mg daily x3 months. RepeatCRP and sed rate in 2 weeks. Patient to follow-up with Dr. Troy Cheng from cardiology and to continue following with Dr. Feliciano for her pulmonary hypertension. Allergies Bactrim (Itching, Rash) Cigarette smoke (Watery eye, Nasal drainage) Dilaudid (Nausea and vomiting, Diarrhea, Dizziness) codeine (HALLUCINATIONS) ibuprofen (Itching) iodinated radiocontrast dyes (Racing heartbeat) morphine (Itching) sulfa drugs (Itching, Rash) Consults Consult to Physician - Ordered -- 04/30/23 10:50:00 EDT, MACI HARDY MD, Routine, follow medically, Rhythm Management Objective Vitals and Measurements T: 36.6 C (Oral) TMIN: 36.6 C (Oral) TMAX: 37.7 C (Oral) HR: 65(Monitored) RR: 16 BP: 103/45 SpO2: 96% WT: 79.6 kg Weight Current Weight Dosing Weight: 79.6 kg (05/05/23) Current Weight: 79.6 kg (05/06/23) Dosing Weight: 78.9 kg (04/30/23) Current Weight: 79.8 kg (05/02/23) Code Status Code Status - Ordered -- 04/30/23 14:07:00 EDT, Full Code, Constant Order Admission Date 04/30/23 Discharge Date 05/06/23 Medications New Prescription colchicine (colchicine 0.6 mg oral tablet)1 tab(s) by mouth once a day. Refills: 2. oxyCODONE (oxyCODONE 5 mg oral tablet ( IMMEDIATE release ))1 tab(s) by mouth every 6 hours as needed Pain, scale 7-10 for 7 Days. Refills: 0. Changed acetaminophen (Tylenol 325 mg oral capsule)650 Milligram by mouth every 4 hours as needed Pain, scale 1-6. aspirin (aspirin 325 mg oral delayed release tablet)1 tab(s) by mouth every 8 hours for 5 Days. after 5 days, then resume ASA 81 mg daily do not crush or chew. Refills: 1. aspirin (aspirin 81 mg oral delayed release tablet)1 tab(s) by mouth once a day. Refills: 0. Unchanged bumetanide (bumetanide 1 mg oral tablet)1 tab(s) by mouth every day as needed Swelling/weight gain.Refills: 2. busPIRone (busPIRone 5 mg oral tablet)1 tab(s) by mouth three (3) times a day as needed Anxiety. cholecalciferol (Vitamin D3 1000 intl units oral tablet)1 tab(s) by mouth once a day. cyanocobalamin (cyanocobalamin 1000 mcg oral tablet)1 tab(s) by mouth once a day. dofetilide (Tikosyn 250 mcg oral capsule)2 cap by mouth two (2) times a day. magnesium oxide (magnesium oxide 250 mg oral tablet)2 tab(s) by mouth two (2) times a day. metoprolol (metoprolol succinate 25 mg oral TABLET extended release)0.5 tab(s) NEEDED.. potassium chloride (Klor-Con M20 oral tablet, extended release)1 tab(s) by mouth once a day. Refills: 3. rivaroxaban (Xarelto 20 mg oral tablet)1 tab(s) by mouth once a day. Refills: 11. tadalafil (Tadalafil (Eqv-Cialis) 20 mg oral tablet)1 tab(s) by mouth two (2) times a day. Refills:2. Follow Up Follow Up with HANK MCMULLEN MD When 09/20/2023 03:30 PM EST Where: [address] [facility] [address] [facility] [place] [address]- [phone] Follow Up with AMARIS RUIZ When 05/20/2023 10:00 AM EDT Why: Please obtain labs and chest x-ray prior to this appointment Where: [address] [facility] [address] [facility] [place] [address]- [phone] Follow Up with [facility] When Why: Home health care RN, a nurse will be calling you before coming out to the home. [phone]. Call with any questions or concerns. Where: Follow Up with LINA ZENDEJAS MD, [facility], Internal Medicine When Why: PLEASE CALL THIS OFFICE TO SCHEDULE A HOSPITAL FOLLOW UP APPOINTMENT. Where: [facility] [address] [place] [address]- [phone] Follow Up Appointments No qualifying data available. Follow Up Labs/Studies Discharge Labs Discharge Outpatient Labwork - Ordered -- CRP, sed rate, Pericarditis, follow-up within: 2 weeks, Please call results to Dr. Mcmullen, 05/06/23 12:34:00 EDT Discharge Studies Discharge Outpatient Radiology - Ordered -- PA and lateral chest x-ray, Pleural effusions, Please arrive at least 1 hour prior to your scheduled appointment and have the chest x-ray done at [place] [facility], 05/06/23 12:34:00 EDT Discharge Diet Discharge Diet - Ordered -- Type of Diet: Regular, Diet Restrictions: Cardiac diet Low cholesterol, 05/06/23 12:34:00 EDT Discharge Activity Discharge Activity - Ordered -- Lifting Restricted less than 10 pounds May Shower, NO DRIVING FOR 4 WEEKS, 05/06/23 12:34:00 EDT Wash chest incisions daily with soap and water. Condition on Discharge stable Readmission Risk/Palliative Score No qualifying data available. Discharge Disposition Home with family Digitally Signed by CHAVA GAMEZ on 05/06/2023 06:12 PM [facility] [id number] Note Date of Service May 03, 2023 Shared/Split visit with Dr. Hardy Chief Complaint AF/AFL RVR Subjective This is a 62-year-old female with a known history of recurring persistent atrial fibrillation despite Tikosyn and Toprol therapy she continued to have breakthrough episodes. Unfortunate the patient had ASD closure. Patient was recommended to undergo Maze procedure. Patient underwent Maze procedure with left atrial pended clip completed on April 30, 2023. The patient ended up having pericarditis and resulted in A-fib/atrial flutter RVR. Patient underwent transesophageal echocardiogram clear of any clot or thrombus. However, unfortunately direct-current cardioversion yield early return of atrial fibrillation patient is unable to maintain sinus rhythm. She would have approximately 10 to 15 seconds of sinus rhythmfollowed by recurrence of A-fib RVR. At this time we will provide Cardizem/IV to help with rate and rhythm control eventually transitioning to oral Cardizem if possible. Past medical history significant for 1. Recurring persistent A-fib/atrial flutter status post Maze procedure with left atrial pended clip April 30, 2023 2. ASD closure 3. Hypertension 4. Nonalcoholic liver cirrhosis 5. Pulmonary hypertension followed by Dr. Feliciano 6. Comorbidities also include obstructive sleep apnea and acid reflux. Today, the patient is resting comfortably in bed. She notes she is experiencing tachycardia and palpitations along with recurring shortness of breath. Mostly residual from pericarditis and now A-fib RVR. Plan focus on rate and rhythm control. Objective Vitals and Measurements T: 36.0 C (Temporal Artery) TMIN: 36.0 C (Temporal Artery) TMAX: 37.0 C (Oral) HR: 108(Monitored) RR: 18 BP: 104/62 SpO2: 92% Physical Exam General - 62 yr old female appearing stated age HEENT - head normocephalic, atraumatic. Pupils equal reactive to light. Nose patent bilaterally. Oropharynx without erythema or exudate. Neck -supple, full range of motion. No carotid bruits noted. Cardiovascular - irregular rate and rhythm - tachycardic. No significant murmurs appreciated. Lungs - clear to auscultation bilaterally. Abdomen - soft, nontender. Bowel sounds present in all 4 quadrants. Musculoskeletal -full weightbearing. Full range of motion in all extremities. Skin -intact, no lesions or rashes noted. Neurological - cranial nerves grossly intact. Mood and affect appropriate to situation. Peripheral vascular - No pitting edema Weight Current Weight Dosing Weight: 78.9 kg (04/30/23) Current Weight: 79.8 kg (05/02/23) Medications Medications (27) Active Scheduled: (14) aspirin 81 mg EC 81 mg 1 tab(s), Oral, Daily colchicine 0.6 mg Tablet 0.6 mg 1 tab(s), Oral, BID docusate sodium 100 mg Capsule 100 mg 1 cap(s), Oral, TID dofetilide 500 mcg capsule 500 mcg 1 cap(s), Oral, q12h famotidine 20 mg tablet 20 mg 1 tab(s), Oral, qDay ketorolac 15 mg/mL vial 15 mg 1 mL, IV Push, q6hr magnesium oxide 400 mg Tablet 400 mg 1 tab(s), Oral, BID mupirocin 2% Ointment 22 Gram(s) tube 1 aleena, Nostril, each, q12h polyethylene glycol 3350 - UD packet 17 gram(s) 15 mL, Oral, qDay rivaroxaban 20 mg tablet 20 mg 1 tab(s), Oral, qDay scopolamine 1.5 mg (1 mg / 72 hours patch) 1 patch(es), Transdermal, q72h sodium biphosphate-sodium phosphate 19 gm-7 gm Enema 133 mL, Rectal, Once tadalafil 20 mg tablet 20 mg 1 tab(s), Oral, BID Transderm-Scop patch REMOVAL 1 EA, Miscellaneous, q72h Continuous: (3) NS (0.9% nacl) 1,000 mL 1,000 mL, Intravenous, 999 mL/hr NS (0.9% nacl) 1,000 mL 1,000 mL, Intravenous, 100 mL/hr phenylephrine 50 mg [50 mcg/min] + Dextrose 5% in Water 250 mL 250 mL, Intravenous, 15 mL/hr PRN: (10) acetaminophen 325 mg Tablet 650 mg 2 tab(s), Oral, q4h bisacodyl 10 mg Suppository 10 mg 1 supp, Rectal, Once busPIRone 5 mg Tablet 5 mg 1 tab(s), Oral, TID magnesium sulfate PMX 2 gram(s) 50 mL, IV Piggyback, AsDirected ondansetron 2 mg/ 1 mL 2 mL INJ 4 mg 2 mL, IV Push, q4h oxycodone 5 mg tablet (immediate release) 5 mg 1 tab(s), Oral, q4h oxycodone 5 mg tablet (immediate release) 10 mg 2 tab(s), Oral, q4h phenol topical 1.4% Spr 1 spray(s), Topical, q1h sodium chloride nasal 0.65% Hardaway 2 spray(s), Nostril, each, q2h trimethobenzamide 200 mg/2 mL Solution 200 mg 2 mL, Intramuscular, q6h Lab Results 05/03 11:43 WBC: 7.3 Hgb: 13.4 Hct: 38.4 Platelet: 158 Neutrophil %: 73.7 Glucose Level: 96 Sodium Level: 141 Potassium Level: 4.0 BUN: 14.0 Creatinine Lvl (s): 0.72 05/02 03:58 WBC: 10.2 Hgb: 12.7 Hct: 36.8 Platelet: 147 L Neutrophil %: 72.3 Glucose Level: 108 Sodium Level: 139 Potassium Level: 4.2 BUN: 23.0 H Creatinine Lvl (s): 0.76 EKG EKG - Completed -- 05/02/23 9:37:00 EDT EKG - Completed -- 05/02/23 12:06:00 EDT Assessment/Plan 1. Recurring persistent A-fib/atrial flutter status post Maze procedure with left atrial pended clip April 30, 2023 Recurring A-fib/atrial flutter RVR secondary to inflammation from pericarditis. Focus on rate control with Cardizem continue on Tikosyn 500 mcg twice daily. The patient remains in atrial fibrillation of the week and we can reattempt direct-current cardioversion on Saturday. 2. ASD closure Noted. At this time unable to perform endocardial ablation. 3. Hypertension Patient is experiencing bouts of hypotension possibly secondary to anesthetic and pericarditis. Blood pressure 104/62. During cardioversion patient went as low as 74/50. Digitally Signed by LIZETT SUH on 05/03/2023 03:36 PM [facility] [id number] Cardiology Progress note Date of Service 05/05/2023 Subjective Patient sitting comfortably in chair having her breakfast. She reported mild chest pain on taking deep breaths. Overnight she was in A-fib, but after getting IV Cardizem she converted into normal sinus rhythm. Currently she is normal sinus rhythm. Objective Vitals and Measurements T: 36.4 C (Oral) TMIN: 36.4 C (Oral) TMAX: 37.1 C (Oral) HR: 61(Monitored) RR: 16 BP: 95/59 SpO2: 94% WT: 79.6 kg Intake and Output 7AM Yesterday to 7AM Today Intake and Output (Last 24 hours) Intake Oral Intake 490.00 Output Urine Voided 1550.00 Stool Count 0.00 Total Summary Total Intake 490.00 Total Output 1550.00 Fluid Balance -1060.00 Physical Exam General Appearance: Comfortable, not in acute distress Cardiac: S1, S2, no murmurs, regular rhythm, normal rate, no lower extremity edema, no crackles Lungs: No wheezes, normal chest expansion. Abdomen: No tenderness, no distention, normal bowel sounds. Musculoskeletal: No signs of acute synovitis. Neurological: Alert and oriented x3, no focal neurological deficits grossly. Psychiatric: Appropriate, normal mood. Weight Current Weight Dosing Weight: 79.6 kg (05/05/23) Current Weight: 79.8 kg (05/02/23) Dosing Weight: 78.9 kg (04/30/23) Medications Medications (26) Active Scheduled: (13) aspirin 81 mg EC 81 mg 1 tab(s), Oral, Daily colchicine 0.6 mg Tablet 0.6 mg 1 tab(s), Oral, BID docusate sodium 100 mg Capsule 100 mg 1 cap(s), Oral, TID dofetilide 500 mcg capsule 500 mcg 1 cap(s), Oral, q12h famotidine 20 mg tablet 20 mg 1 tab(s), Oral, qDay ketorolac 15 mg/mL vial 15 mg 1 mL, IV Push, q6h magnesium oxide 400 mg Tablet 400 mg 1 tab(s), Oral, BID mupirocin 2% Ointment 22 Gram(s) tube 1 aleena, Nostril, each, q12h polyethylene glycol 3350 - UD packet 17 gram(s) 15 mL, Oral, qDay rivaroxaban 20 mg tablet 20 mg 1 tab(s), Oral, qDay scopolamine 1.5 mg (1 mg / 72 hours patch) 1 patch(es), Transdermal, q72h tadalafil 20 mg tablet 20 mg 1 tab(s), Oral, BID Transderm-Scop patch REMOVAL 1 EA, Miscellaneous, q72h Continuous: (3) NS (0.9% nacl) 1,000 mL 1,000 mL, Intravenous, 999 mL/hr NS (0.9% nacl) 1,000 mL 1,000 mL, Intravenous, 100 mL/hr phenylephrine 50 mg [50 mcg/min] + Dextrose 5% in Water 250 mL 250 mL, Intravenous, 15 mL/hr PRN: (10) acetaminophen 325 mg Tablet 650 mg 2 tab(s), Oral, q4h bisacodyl 10 mg Suppository 10 mg 1 supp, Rectal, Once busPIRone 5 mg Tablet 5 mg 1 tab(s), Oral, TID magnesium sulfate PMX 2 gram(s) 50 mL, IV Piggyback, AsDirected ondansetron 2 mg/ 1 mL 2 mL INJ 4 mg 2 mL, IV Push, q4h oxycodone 5 mg tablet (immediate release) 5 mg 1 tab(s), Oral, q4h oxycodone 5 mg tablet (immediate release) 10 mg 2 tab(s), Oral, q4h phenol topical 1.4% Spr 1 spray(s), Topical, q1h sodium chloride nasal 0.65% Hardaway 2 spray(s), Nostril, each, q2h trimethobenzamide 200 mg/2 mL Solution 200 mg 2 mL, Intramuscular, q6h Lab Results 05/05 04:20 Glucose Level: 99 Sodium Level: 141 Potassium Level: 4.1 BUN: 18.0 Creatinine Lvl (s): 0.75 05/04 02:35 WBC: 6.1 Hgb: 11.8 L Hct: 33.7 L Platelet: 168 Neutrophil %: 67.8 Glucose Level: 98 Sodium Level: 142 Potassium Level: 4.1 Potassium Level: 4.1 BUN: 19.0 Creatinine Lvl (s): 0.75 EKG EKG - Completed -- 05/04/23 0:31:00 EDT, r/t tele changes Assessment/Plan Acute pericarditis Atrial fibrillation with RVR Atrial fibrillation s/p convergent maze RICHARD clip 04/30/2023 S/p interatrial septal closure device Chronic heart failure, pulm hypertension 62-year-old woman who underwent convergent maze epicardial ablation RICHARD clip with Dr. Ford 04/25/2023. We are consulted urgently overnight for abnormal EKG. Patient endorses severe pleuritic chest pain worsens with deep breathing or coughing, as well as left shoulder pain she has holding back on. On exam she is euvolemic, bedside TTE showed very small posterior pericardial effusion, preserved LVEF. ECG review shows widespread ST elevation with ND depression, ND elevation and ST depression in aVR, as well as downsloping TP segment. On exam she has triphasic pericardial friction rub yesterday, now it has been resolved. Chronic angiogram 08/2022 without significant CAD. Plan: Continue with colchicine for 3 months, patient is currently complaining of diarrhea but she also had MiraLAX earlier, advised to stop stool softeners, if patient continues to have diarrhea on diet can consider reducing the colchicine to once daily Patient would benefit from high-dose aspirin for 5 days 325 mg Q8h, and transition to low dose 81 mg once daily after 5 days Continue Tikosyn for atrial fibrillation, Continue anticoagulation with Xarelto Agree with the PPI prophylaxis Thank you for the consult. Please reach out for any questions. Digitally Signed by HUSEYIN HERR MD on 05/05/2023 03:02 PM Digitally Signed by HUSEYIN HERR MD on 05/05/2023 03:04 PM [facility] [id number] Cardiology Progress note Date of Service 05/04/2023 Subjective Patient comfortably in bed. She denied any chest pain or shortness of breath Overnight reviewing the telemetry, patient has been converted to sinus rhythm and going into A-fib. Patient underwent ANTON followed by cardioversion yesterday. Objective Vitals and Measurements T: 36.7 C (Oral) TMIN: 36.0 C (Temporal Artery) TMAX: 37.8 C (Oral) HR: 71(Monitored) RR: 16 BP: 101/49 SpO2: 96% Intake and Output 7AM Yesterday to 7AM Today Intake and Output (Last 24 hours) Intake Administration Information 75.00 Output Urine Voided 300.00 Stool Count 1.00 Urine Count 1.00 Diaper Count 4.00 Total Summary Total Intake 75.00 Total Output 300.00 Fluid Balance -225.00 Physical Exam General Appearance: Comfortable, not in acute distress Cardiac: S1, S2, no murmurs, regular rhythm, normal rate, no lower extremity edema, no crackles Lungs: No wheezes, normal chest expansion. Abdomen: No tenderness, no distention, normal bowel sounds. Musculoskeletal: No signs of acute synovitis. Neurological: Alert and oriented x3, no focal neurological deficits grossly. Psychiatric: Appropriate, normal mood. Weight Current Weight Dosing Weight: 78.9 kg (04/30/23) Current Weight: 79.8 kg (05/02/23) Medications Medications (26) Active Scheduled: (13) aspirin 81 mg EC 81 mg 1 tab(s), Oral, Daily colchicine 0.6 mg Tablet 0.6 mg 1 tab(s), Oral, BID docusate sodium 100 mg Capsule 100 mg 1 cap(s), Oral, TID dofetilide 500 mcg capsule 500 mcg 1 cap(s), Oral, q12h famotidine 20 mg tablet 20 mg 1 tab(s), Oral, qDay ketorolac 15 mg/mL vial 15 mg 1 mL, IV Push, q6h magnesium oxide 400 mg Tablet 400 mg 1 tab(s), Oral, BID mupirocin 2% Ointment 22 Gram(s) tube 1 aleena, Nostril, each, q12h polyethylene glycol 3350 - UD packet 17 gram(s) 15 mL, Oral, qDay rivaroxaban 20 mg tablet 20 mg 1 tab(s), Oral, qDay scopolamine 1.5 mg (1 mg / 72 hours patch) 1 patch(es), Transdermal, q72h tadalafil 20 mg tablet 20 mg 1 tab(s), Oral, BID Transderm-Scop patch REMOVAL 1 EA, Miscellaneous, q72h Continuous: (3) NS (0.9% nacl) 1,000 mL 1,000 mL, Intravenous, 999 mL/hr NS (0.9% nacl) 1,000 mL 1,000 mL, Intravenous, 100 mL/hr phenylephrine 50 mg [50 mcg/min] + Dextrose 5% in Water 250 mL 250 mL, Intravenous, 15 mL/hr PRN: (10) acetaminophen 325 mg Tablet 650 mg 2 tab(s), Oral, q4h bisacodyl 10 mg Suppository 10 mg 1 supp, Rectal, Once busPIRone 5 mg Tablet 5 mg 1 tab(s), Oral, TID magnesium sulfate PMX 2 gram(s) 50 mL, IV Piggyback, AsDirected ondansetron 2 mg/ 1 mL 2 mL INJ 4 mg 2 mL, IV Push, q4h oxycodone 5 mg tablet (immediate release) 5 mg 1 tab(s), Oral, q4h oxycodone 5 mg tablet (immediate release) 10 mg 2 tab(s), Oral, q4h phenol topical 1.4% Spr 1 spray(s), Topical, q1h sodium chloride nasal 0.65% Hardaway 2 spray(s), Nostril, each, q2h trimethobenzamide 200 mg/2 mL Solution 200 mg 2 mL, Intramuscular, q6h Lab Results 05/04 02:35 WBC: 6.1 Hgb: 11.8 L Hct: 33.7 L Platelet: 168 Neutrophil %: 67.8 Glucose Level: 98 Sodium Level: 142 Potassium Level: 4.1 Potassium Level: 4.1 BUN: 19.0 Creatinine Lvl (s): 0.75 05/03 11:43 WBC: 7.3 Hgb: 13.4 Hct: 38.4 Platelet: 158 Neutrophil %: 73.7 Glucose Level: 96 Sodium Level: 141 Potassium Level: 4.0 BUN: 14.0 Creatinine Lvl (s): 0.72 EKG EKG - Completed -- 05/02/23 9:37:00 EDT EKG - Completed -- 05/02/23 12:06:00 EDT Electrocardiogram (EKG) - InProcess -- 05/04/23 0:31:00 EDT, r/t tele changes Assessment/Plan Acute pericarditis Atrial fibrillation with RVR Atrial fibrillation s/p convergent maze RICHARD clip 04/30/2023 S/p interatrial septal closure device Chronic heart failure, pulm hypertension 62-year-old woman who underwent convergent maze epicardial ablation RICHARD clip with Dr. Ford 04/25/2023. We are consulted urgently overnight for abnormal EKG. Patient endorses severe pleuritic chest pain worsens with deep breathing or coughing, as well as left shoulder pain she has holding back on. On exam she is euvolemic, bedside TTE showed very small posterior pericardial effusion, preserved LVEF. ECG review shows widespread ST elevation with ND depression, ND elevation and ST depression in aVR, as well as downsloping TP segment. On exam she has triphasic pericardial friction rub yesterday, now it has been resolved. Chronic angiogram 08/2022 without significant CAD. Plan: Continue with colchicine Continue Tikosyn for atrial fibrillation, Continue anticoagulation with Xarelto Agree with the PPI prophylaxis Can consider low-dose IV Cardizem in case patient continues to have rapid A-fib With IV fluids Observe monitor vitals Thank you for the consult. Please reach out for any questions. Discussed with the primary team. Digitally Signed by HUSEYIN HERR MD on 05/04/2023 12:43 PM [facility] [id number] Note Date of Service 05/05/2023 postop day #5 Chief Complaint This is a 62-year-old female with significant past medical history of ABARCA liver cirrhosis, hypothyroidism, ostium secundum ASD s/p closure with 14 mm Amplatz device, mild pulmonary hypertension (on tadalafil) , and atrial fibrillation (metoprolol, Tikosyn, and Xarelto) who presents for evaluation for left atrial appendage occlusion and left atrial appendage ligation/convergent procedure.. She has intermittent atrial fibrillation. However, she has quite symptomatic episodes that occur approximately twice per week. Denies chest pain. Episodes last 8 hours. Triggers are anxiety, ( with PTSD), caffeine and chocolate. On 04/30/2023 patient underwent a convergent maze procedure via subxiphoid approach, ligation of left atrial appendage with 40 mm AtriCure clip, ANTON. She tolerated the procedure well was transferred to the CV SICU in stable condition. She was recovered in the CV SICU. Cardiology was consulted urgently overnight due to abnormal EKG, patient with complaints of severe pleuritic chest pain worsening with deep inspiration or coughing, as well as left shoulder pain. EKG with widespread ST elevation. Triphasic pericardial friction rub. Toradol, colchicine, and troponin trending ordered. POD #1: Patient states pain eased with Toradol and colchicine last p.m. Left lateral chest tube milked for clot and patient complained of increased left shoulder pain, Toradol given IV. Continue Toradol for 24 hours. Possibly DC left lateral chest tube later today. Transfer to stepdown. POD #2 she continues to have slightly increased rate of her atrial fibrillation in the 1 teens [id number]. Received IV Lopressor last night per EP. Mediastinal chest tubes discontinued later in the day. POD #3: Still with complaints of chest discomfort especially with movement. Rub less audible. TEEfor evaluation of RICHARD closure completed. Patient also had DCC procedure but did not remain in normal sinus rhythm. Has episodes of atrial fibrillation in sinus rhythm. Remains on Xarelto and Tikosyn.Postop day #4. Monitor showed normal sinus rhythm this morning. Patient is okay for discharge per [facility] rdiothoracic surgery standpoint. She did go back into atrial fibrillation with RVR around 11:30 this morning. Cardiology wants to keep her in the hospital at this time. Possible cardioversion again on Saturday. Postop day #4. Currently in normal sinus rhythm. Was given to IV Cardizem doses per cardiology last evening for atrial fibrillation. Cardiology plan pending. Subjective Sitting up in the chair, no specific complaints offered Objective Vitals and Measurements T: 36.6 C (Oral) TMIN: 36.4 C (Oral) TMAX: 37.1 C (Oral) HR: 66(Monitored) RR: 18 BP: 96/43 SpO2: 95% WT: 79.6 kg Intake and Output 7AM Yesterday to 7AM Today Intake and Output (Last 24 hours) Intake Oral Intake 490.00 Supplement Intake 120.00 Output Urine Voided 1550.00 Total Summary Total Intake 610.00 Total Output 1550.00 Fluid Balance -940.00 Physical Exam Lungs: Bilateral, clear, respirations easy regular nonlabored, on room air Heart: Regular S1-S2, monitor in normal sinus rhythm Incisions: Left anterior chest incision open to air without drainage, subxiphoid incision without drainage abdomen: Soft, nontender, bowel sounds present Neurological: Intact extremities: Well perfused Weight Current Weight Dosing Weight: 79.6 kg (05/05/23) Current Weight: 79.8 kg (05/02/23) Dosing Weight: 78.9 kg (04/30/23) Medications Medications (26) Active Scheduled: (13) aspirin 81 mg EC 81 mg 1 tab(s), Oral, Daily colchicine 0.6 mg Tablet 0.6 mg 1 tab(s), Oral, BID docusate sodium 100 mg Capsule 100 mg 1 cap(s), Oral, TID dofetilide 500 mcg capsule 500 mcg 1 cap(s), Oral, q12h famotidine 20 mg tablet 20 mg 1 tab(s), Oral, qDay ketorolac 15 mg/mL vial 15 mg 1 mL, IV Push, q6h magnesium oxide 400 mg Tablet 400 mg 1 tab(s), Oral, BID mupirocin 2% Ointment 22 Gram(s) tube 1 aleena, Nostril, each, q12h polyethylene glycol 3350 - UD packet 17 gram(s) 15 mL, Oral, qDay rivaroxaban 20 mg tablet 20 mg 1 tab(s), Oral, qDay scopolamine 1.5 mg (1 mg / 72 hours patch) 1 patch(es), Transdermal, q72h tadalafil 20 mg tablet 20 mg 1 tab(s), Oral, BID Transderm-Scop patch REMOVAL 1 EA, Miscellaneous, q72h Continuous: (3) NS (0.9% nacl) 1,000 mL 1,000 mL, Intravenous, 999 mL/hr NS (0.9% nacl) 1,000 mL 1,000 mL, Intravenous, 100 mL/hr phenylephrine 50 mg [50 mcg/min] + Dextrose 5% in Water 250 mL 250 mL, Intravenous, 15 mL/hr PRN: (10) acetaminophen 325 mg Tablet 650 mg 2 tab(s), Oral, q4h bisacodyl 10 mg Suppository 10 mg 1 supp, Rectal, Once busPIRone 5 mg Tablet 5 mg 1 tab(s), Oral, TID magnesium sulfate PMX 2 gram(s) 50 mL, IV Piggyback, AsDirected ondansetron 2 mg/ 1 mL 2 mL INJ 4 mg 2 mL, IV Push, q4h oxycodone 5 mg tablet (immediate release) 5 mg 1 tab(s), Oral, q4h oxycodone 5 mg tablet (immediate release) 10 mg 2 tab(s), Oral, q4h phenol topical 1.4% Spr 1 spray(s), Topical, q1h sodium chloride nasal 0.65% Hardaway 2 spray(s), Nostril, each, q2h trimethobenzamide 200 mg/2 mL Solution 200 mg 2 mL, Intramuscular, q6h Lab Results 05/05 04:20 Glucose Level: 99 Sodium Level: 141 Potassium Level: 4.1 BUN: 18.0 Creatinine Lvl (s): 0.75 05/04 02:35 WBC: 6.1 Hgb: 11.8 L Hct: 33.7 L Platelet: 168 Neutrophil %: 67.8 Glucose Level: 98 Sodium Level: 142 Potassium Level: 4.1 Potassium Level: 4.1 BUN: 19.0 Creatinine Lvl (s): 0.75 Imaging Results and Diagnostics (05/04/2023 06:31 EDT XR Chest 1 View) ORIGINAL EXAMINATION: ONE XRAY VIEW OF THE CHEST 05/04/2023 6:31 am COMPARISON: 05/03/2023 HISTORY: ORDERING SYSTEM PROVIDED HISTORY: Reason for Exam: Abnormal breathe sounds IMPRESSION: Stable cardiomediastinal contours. Prior RICHARD clipping. Monitor leads. Streaky bibasilar atelectasis or other airspace disease. Curvilinear left basilar atelectasis. No visible pneumothorax or pleural effusion. [1] Assessment/Plan 1. Atrial fibrillation s/p Convergent Maze, RICHARD Clip, 04/30/2023 Currently in normal sinus rhythm On Xarelto and Tikosyn Had atrial fibrillation yesterday and was given IV doses of Cardizem per cardiology EP/cardiology following Possible repeat DCC in a.m. 2. Acute pericarditis On colchicine and IV Tylenol No rub noted 3. ASD (atrial septal defect) S/P repair July 2022 4. Heart failure Stable 5. Acute blood loss anemia Stable 6. Hypertension Blood pressure 96/43-105/51 7. Pulmonary HTN On tadalafil 8. GERD - Gastro-esophageal reflux disease On famotidine 9. FARSHAD (obstructive sleep apnea) Home CPAP 10. STEATOHEPATITIS, NONALCOHOLIC Okay for discharge per CT surgery Cardiology wants to keep since she is having episodes of atrial fibrillation with RVR We will await their assessment for today Patient seen and discussed with Dr. Patel [1] XR Chest 1 View; RICHARD GAUTHIER DO 05/04/2023 06:31 EDT Digitally Signed by TYLER BAIN on 05/05/2023 12:43 PM [facility] [id number] Cardiology Progress note Date of Service 05/05/2023 Subjective Patient sitting comfortably in chair having her breakfast. She reported mild chest pain on taking deep breaths. Overnight she was in A-fib, but after getting IV Cardizem she converted into normal sinus rhythm. Currently she is normal sinus rhythm. Objective Vitals and Measurements T: 36.4 C (Oral) TMIN: 36.4 C (Oral) TMAX: 37.1 C (Oral) HR: 61(Monitored) RR: 16 BP: 95/59 SpO2: 94% WT: 79.6 kg Intake and Output 7AM Yesterday to 7AM Today Intake and Output (Last 24 hours) Intake Oral Intake 490.00 Output Urine Voided 1550.00 Stool Count 0.00 Total Summary Total Intake 490.00 Total Output 1550.00 Fluid Balance -1060.00 Physical Exam General Appearance: Comfortable, not in acute distress Cardiac: S1, S2, no murmurs, regular rhythm, normal rate, no lower extremity edema, no crackles Lungs: No wheezes, normal chest expansion. Abdomen: No tenderness, no distention, normal bowel sounds. Musculoskeletal: No signs of acute synovitis. Neurological: Alert and oriented x3, no focal neurological deficits grossly. Psychiatric: Appropriate, normal mood. Weight Current Weight Dosing Weight: 79.6 kg (08/13/23) Current Weight: 79.8 kg (05/02/23) Dosing Weight: 78.9 kg (04/30/23) Medications Medications (26) Active Scheduled: (13) aspirin 81 mg EC 81 mg 1 tab(s), Oral, Daily colchicine 0.6 mg Tablet 0.6 mg 1 tab(s), Oral, BID docusate sodium 100 mg Capsule 100 mg 1 cap(s), Oral, TID dofetilide 500 mcg capsule 500 mcg 1 cap(s), Oral, q12h famotidine 20 mg tablet 20 mg 1 tab(s), Oral, qDay ketorolac 15 mg/mL vial 15 mg 1 mL, IV Push, q6h magnesium oxide 400 mg Tablet 400 mg 1 tab(s), Oral, BID mupirocin 2% Ointment 22 Gram(s) tube 1 aleena, Nostril, each, q12h polyethylene glycol 3350 - UD packet 17 gram(s) 15 mL, Oral, qDay rivaroxaban 20 mg tablet 20 mg 1 tab(s), Oral, qDay scopolamine 1.5 mg (1 mg / 72 hours patch) 1 patch(es), Transdermal, q72h tadalafil 20 mg tablet 20 mg 1 tab(s), Oral, BID Transderm-Scop patch REMOVAL 1 EA, Miscellaneous, q72h Continuous: (3) NS (0.9% nacl) 1,000 mL 1,000 mL, Intravenous, 999 mL/hr NS (0.9% nacl) 1,000 mL 1,000 mL, Intravenous, 100 mL/hr phenylephrine 50 mg [50 mcg/min] + Dextrose 5% in Water 250 mL 250 mL, Intravenous, 15 mL/hr PRN: (10) acetaminophen 325 mg Tablet 650 mg 2 tab(s), Oral, q4h bisacodyl 10 mg Suppository 10 mg 1 supp, Rectal, Once busPIRone 5 mg Tablet 5 mg 1 tab(s), Oral, TID magnesium sulfate PMX 2 gram(s) 50 mL, IV Piggyback, AsDirected ondansetron 2 mg/ 1 mL 2 mL INJ 4 mg 2 mL, IV Push, q4h oxycodone 5 mg tablet (immediate release) 5 mg 1 tab(s), Oral, q4h oxycodone 5 mg tablet (immediate release) 10 mg 2 tab(s), Oral, q4h phenol topical 1.4% Spr 1 spray(s), Topical, q1h sodium chloride nasal 0.65% Hard[place] 2 spray(s), Nostril, each, q2h trimethobenzamide 200 mg/2 mL Solution 200 mg 2 mL, Intramuscular, q6h Lab Results 05/05 04:20 Glucose Level: 99 Sodium Level: 141 Potassium Level: 4.1 BUN: 18.0 Creatinine Lvl (s): 0.75 05/04 02:35 WBC: 6.1 Hgb: 11.8 L Hct: 33.7 L Platelet: 168 Neutrophil %: 67.8 Glucose Level: 98 Sodium Level: 142 Potassium Level: 4.1 Potassium Level: 4.1 BUN: 19.0 Creatinine Lvl (s): 0.75 EKG EKG - Completed -- 05/04/23 0:31:00 EDT, r/t tele changes Assessment/Plan Acute pericarditis Atrial fibrillation with RVR Atrial fibrillation s/p convergent maze RICHARD clip 04/30/2023 S/p interatrial septal closure device Chronic heart failure, pulm hypertension 62-year-old woman who underwent convergent maze epicardial ablation RICHARD clip with Dr. Ford 04/25/2023. We are consulted urgently overnight for abnormal EKG. Patient endorses severe pleuritic chest pain worsens with deep breathing or coughing, as well as left shoulder pain she has holding back on. On exam she is euvolemic, bedside TTE showed very small posterior pericardial effusion, preserved LVEF. ECG review shows widespread ST elevation with ND depression, ND elevation and ST depression in aVR, as well as downsloping TP segment. On exam she has triphasic pericardial friction rub yesterday, now it has been resolved. Chronic angiogram 08/2022 without significant CAD. Plan: Continue with colchicine for 3 months, patient is currently complaining of diarrhea but she also had MiraLAX earlier, advised to stop stool softeners, if patient continues to have diarrhea on diet can consider reducing the colchicine to once daily Patient would benefit from high-dose aspirin for 5 days 325 mg Q8h, and transition to low dose 81 mg once daily after 5 days Continue Tikosyn for atrial fibrillation, Continue anticoagulation with Xarelto Agree with the PPI prophylaxis Thank you for the consult. Please reach out for any questions. Digitally Signed by HUSEYIN HERR MD on 05/05/2023 03:02 PM Digitally Signed by HUSEYIN HERR MD on 05/05/2023 03:04 PM [facility] [id number] Cardiology Progress note Date of Service 05/04/2023 Subjective Patient comfortably in bed. She denied any chest pain or shortness of breath Overnight reviewing the telemetry, patient has been converted to sinus rhythm and going into A-fib. Patient underwent ANTON followed by cardioversion yesterday. Objective Vitals and Measurements T: 36.7 C (Oral) TMIN: 36.0 C (Temporal Artery) TMAX: 37.8 C (Oral) HR: 71(Monitored) RR: 16 BP: 101/49 SpO2: 96% Intake and Output 7AM Yesterday to 7AM Today Intake and Output (Last 24 hours) Intake Administration Information 75.00 Output Urine Voided 300.00 Stool Count 1.00 Urine Count 1.00 Diaper Count 4.00 Total Summary Total Intake 75.00 Total Output 300.00 Fluid Balance -225.00 Physical Exam General Appearance: Comfortable, not in acute distress Cardiac: S1, S2, no murmurs, regular rhythm, normal rate, no lower extremity edema, no crackles Lungs: No wheezes, normal chest expansion. Abdomen: No tenderness, no distention, normal bowel sounds. Musculoskeletal: No signs of acute synovitis. Neurological: Alert and oriented x3, no focal neurological deficits grossly. Psychiatric: Appropriate, normal mood. Weight Current Weight Dosing Weight: 78.9 kg (04/30/23) Current Weight: 79.8 kg (05/02/23) Medications Medications (26) Active Scheduled: (13) aspirin 81 mg EC 81 mg 1 tab(s), Oral, Daily colchicine 0.6 mg Tablet 0.6 mg 1 tab(s), Oral, BID docusate sodium 100 mg Capsule 100 mg 1 cap(s), Oral, TID dofetilide 500 mcg capsule 500 mcg 1 cap(s), Oral, q12h famotidine 20 mg tablet 20 mg 1 tab(s), Oral, qDay ketorolac 15 mg/mL vial 15 mg 1 mL, IV Push, q6h magnesium oxide 400 mg Tablet 400 mg 1 tab(s), Oral, BID mupirocin 2% Ointment 22 Gram(s) tube 1 aleena, Nostril, each, q12h polyethylene glycol 3350 - UD packet 17 gram(s) 15 mL, Oral, qDay rivaroxaban 20 mg tablet 20 mg 1 tab(s), Oral, qDay scopolamine 1.5 mg (1 mg / 72 hours patch) 1 patch(es), Transdermal, q72h tadalafil 20 mg tablet 20 mg 1 tab(s), Oral, BID Transderm-Scop patch REMOVAL 1 EA, Miscellaneous, q72h Continuous: (3) NS (0.9% nacl) 1,000 mL 1,000 mL, Intravenous, 999 mL/hr NS (0.9% nacl) 1,000 mL 1,000 mL, Intravenous, 100 mL/hr phenylephrine 50 mg [50 mcg/min] + Dextrose 5% in Water 250 mL 250 mL, Intravenous, 15 mL/hr PRN: (10) acetaminophen 325 mg Tablet 650 mg 2 tab(s), Oral, q4h bisacodyl 10 mg Suppository 10 mg 1 supp, Rectal, Once busPIRone 5 mg Tablet 5 mg 1 tab(s), Oral, TID magnesium sulfate PMX 2 gram(s) 50 mL, IV Piggyback, AsDirected ondansetron 2 mg/ 1 mL 2 mL INJ 4 mg 2 mL, IV Push, q4h oxycodone 5 mg tablet (immediate release) 5 mg 1 tab(s), Oral, q4h oxycodone 5 mg tablet (immediate release) 10 mg 2 tab(s), Oral, q4h phenol topical 1.4% Spr 1 spray(s), Topical, q1h sodium chloride nasal 0.65% [place] 2 spray(s), Nostril, each, q2h trimethobenzamide 200 mg/2 mL Solution 200 mg 2 mL, Intramuscular, q6h Lab Results 05/04 02:35 WBC: 6.1 Hgb: 11.8 L Hct: 33.7 L Platelet: 168 Neutrophil %: 67.8 Glucose Level: 98 Sodium Level: 142 Potassium Level: 4.1 Potassium Level: 4.1 BUN: 19.0 Creatinine Lvl (s): 0.75 05/03 11:43 WBC: 7.3 Hgb: 13.4 Hct: 38.4 Platelet: 158 Neutrophil %: 73.7 Glucose Level: 96 Sodium Level: 141 Potassium Level: 4.0 BUN: 14.0 Creatinine Lvl (s): 0.72 EKG EKG - Completed -- 05/02/23 9:37:00 EDT EKG - Completed -- 05/02/23 12:06:00 EDT Electrocardiogram (EKG) - InProcess -- 05/04/23 0:31:00 EDT, r/t tele changes Assessment/Plan Acute pericarditis Atrial fibrillation with RVR Atrial fibrillation s/p convergent maze RICHARD clip 04/30/2023 S/p interatrial septal closure device Chronic heart failure, pulm hypertension 62-year-old woman who underwent convergent maze epicardial ablation RICHARD clip with Dr. Ford 04/25/2023. We are consulted urgently overnight for abnormal EKG. Patient endorses severe pleuritic chest pain worsens with deep breathing or coughing, as well as left shoulder pain she has holding back on. On exam she is euvolemic, bedside TTE showed very small posterior pericardial effusion, preserved LVEF. ECG review shows widespread ST elevation with ND depression, ND elevation and ST depression in aVR, as well as downsloping TP segment. On exam she has triphasic pericardial friction rub yesterday, now it has been resolved. Chronic angiogram 08/2022 without significant CAD. Plan: Continue with colchicine Continue Tikosyn for atrial fibrillation, Continue anticoagulation with Xarelto Agree with the PPI prophylaxis Can consider low-dose IV Cardizem in case patient continues to have rapid A-fib With IV fluids Observe monitor vitals Thank you for the consult. Please reach out for any questions. Discussed with the primary team. Digitally Signed by HUSEYIN HERR MD on 05/04/2023 12:43 PM [facility] [id number] Note Date of Service 05/04/2023 postop day #4 Chief Complaint This is a 62-year-old female with significant past medical history of ABARCA liver cirrhosis, hypothyroidism, ostium secundum ASD s/p closure with 14 mm Amplatz device, mild pulmonary hypertension (on tadalafil) , and atrial fibrillation (metoprolol, Tikosyn, and Xarelto) who presents for evaluation for left atrial appendage occlusion and left atrial appendage ligation/convergent procedure.. She has intermittent atrial fibrillation. However, she has quite symptomatic episodes that occur approximately twice per week. Denies chest pain. Episodes last 8 hours. Triggers are anxiety, ( with PTSD), caffeine and chocolate. On 04/30/2023 patient underwent a convergent maze procedure via subxiphoid approach, ligation of left atrial appendage with 40 mm AtriCure clip, ANTON. She tolerated the procedure well was transferred to the CV SICU in stable condition. She was recovered in the CV SICU. Cardiology was consulted urgently overnight due to abnormal EKG, patient with complaints of severe pleuritic chest pain worsening with deep inspiration or coughing, as well as left shoulder pain. EKG with widespread ST elevation. Triphasic pericardial friction rub. Toradol, colchicine, and troponin trending ordered. POD #1: Patient states pain eased with Toradol and colchicine last p.m. Left lateralchest tube milked for clot and patient complained of increased left shoulder pain, Toradol given IV. Continue Toradol for 24 hours. Possibly DC left lateral chest tube later today. Transfer to stepdown. POD #2 she continues to have slightly increased rate of her atrial fibrillation in the 1 teens to 120s. Received IV Lopressor last night per EP. Mediastinal chest tubes discontinued later in the day. POD #3: Still with complaints of chest discomfort especially with movement. Rub less audible. ANTON for evaluation of RICHARD closure completed. Patient also had DCC procedure but did not remain in normal sinus rhythm. Has episodes of atrial fibrillation in sinus rhythm. Remains on Xarelto and Tikosyn. Postop day #4. Monitor showed normal sinus rhythm this morning. Patient is okay for discharge per cardiothoracic surgery standpoint. She did go back into atrial fibrillation with RVR around 1130 this morning. Cardiology wants to keep her in the hospital at this time. Possible cardioversion again on Saturday. Subjective Sitting in the chair, no specific complaints offered Objective Vitals and Measurements T: 36.7 C (Oral) TMIN: 36.0 C (Temporal Artery) TMAX: 37.8 C (Oral) HR: 71(Monitored) RR: 16 BP: 101/49 SpO2: 96% Intake and Output 7AM Yesterday to 7AM Today Intake and Output (Last 24 hours) Intake Administration Information 75.00 Output Urine Voided 300.00 Stool Count 1.00 Urine Count 1.00 Diaper Count 4.00 Total Summary Total Intake 75.00 Total Output 300.00 Fluid Balance -225.00 Physical Exam Lungs: Bilateral, clear, respirations easy regular nonlabored, on room air Heart: Irregular S1-S2, monitor atrial fibrillation, had previously been in normal sinus rhythm Incisions: Left anterior chest incision open to air without drainage, subxiphoid incision with dressing without drainage abdomen: Soft, nontender, bowel sounds present, Neurological: Intact extremities: Well perfused Weight Current Weight Dosing Weight: 78.9 kg (04/30/23) Current Weight: 79.8 kg (05/02/23) Medications Medications (26) Active Scheduled: (13) aspirin 81 mg EC 81 mg 1 tab(s), Oral, Daily colchicine 0.6 mg Tablet 0.6 mg 1 tab(s), Oral, BID docusate sodium 100 mg Capsule 100 mg 1 cap(s), Oral, TID dofetilide 500 mcg capsule 500 mcg 1 cap(s), Oral, q12h famotidine 20 mg tablet 20 mg 1 tab(s), Oral, qDay ketorolac 15 mg/mL vial 15 mg 1 mL, IV Push, q6h magnesium oxide 400 mg Tablet 400 mg 1 tab(s), Oral, BID mupirocin 2% Ointment 22 Gram(s) tube 1 aleena, Nostril, each, q12h polyethylene glycol 3350 - UD packet 17 gram(s) 15 mL, Oral, qDay rivaroxaban 20 mg tablet 20 mg 1 tab(s), Oral, qDay scopolamine 1.5 mg (1 mg / 72 hours patch) 1 patch(es), Transdermal, q72h tadalafil 20 mg tablet 20 mg 1 tab(s), Oral, BID Transderm-Scop patch REMOVAL 1 EA, Miscellaneous, q72h Continuous: (3) NS (0.9% nacl) 1,000 mL 1,000 mL, Intravenous, 999 mL/hr NS (0.9% nacl) 1,000 mL 1,000 mL, Intravenous, 100 mL/hr phenylephrine 50 mg [50 mcg/min] + Dextrose 5% in Water 250 mL 250 mL, Intravenous, 15 mL/hr PRN: (10) acetaminophen 325 mg Tablet 650 mg 2 tab(s), Oral, q4h bisacodyl 10 mg Suppository 10 mg 1 supp, Rectal, Once busPIRone 5 mg Tablet 5 mg 1 tab(s), Oral, TID magnesium sulfate PMX 2 gram(s) 50 mL, IV Piggyback, AsDirected ondansetron 2 mg/ 1 mL 2 mL INJ 4 mg 2 mL, IV Push, q4h oxycodone 5 mg tablet (immediate release) 5 mg 1 tab(s), Oral, q4h oxycodone 5 mg tablet (immediate release) 10 mg 2 tab(s), Oral, q4h phenol topical 1.4% Spr 1 spray(s), Topical, q1h sodium chloride nasal 0.65% [place] 2 spray(s), Nostril, each, q2h trimethobenzamide 200 mg/2 mL Solution 200 mg 2 mL, Intramuscular, q6h Lab Results 05/04 02:35 WBC: 6.1 Hgb: 11.8 L Hct: 33.7 L Platelet: 168 Neutrophil %: 67.8 Glucose Level: 98 Sodium Level: 142 Potassium Level: 4.1 Potassium Level: 4.1 BUN: 19.0 Creatinine Lvl (s): 0.75 05/03 11:43 WBC: 7.3 Hgb: 13.4 Hct: 38.4 Platelet: 158 Neutrophil %: 73.7 Glucose Level: 96 Sodium Level: 141 Potassium Level: 4.0 BUN: 14.0 Creatinine Lvl (s): 0.72 Imaging Results and Diagnostics (05/04/2023 06:31 EDT XR Chest 1 View) EXAMINATION: ONE XRAY VIEW OF THE CHEST 05/04/2023 6:31 am COMPARISON: 05/03/2023 HISTORY: ORDERING SYSTEM PROVIDED HISTORY: Reason for Exam: Abnormal breathe sounds IMPRESSION: Stable cardiomediastinal contours. Prior RICHARD clipping. Monitor leads. Streaky bibasilar atelectasis or other airspace disease. Curvilinear left basilar atelectasis. No visible pneumothorax or pleural effusion. [1] Assessment/Plan 1. Atrial fibrillation s/p Convergent Maze, RICHARD Clip, 04/30/2023 Currently is in atrial fibrillation rate 140 Earlier was in normal sinus rhythm On Xarelto and Tikosyn ANTON yesterday Showed no evidence of a thrombus in the atrial cavity, closure device functioning appropriately without evidence of residual shunting by color Doppler DCC yesterday but did not remain in normal sinus rhythm, in and out of atrial fibrillation EP/cardiology following 2. Acute pericarditis On colchicine and IV Toradol 3. ASD (atrial septal defect) S/P repair July 2022 4. Heart failure Stable 5. Acute blood loss anemia Stable 6. Hypertension Blood pressure 101/49-105/48 7. Pulmonary HTN On tadalafil 8. GERD - Gastro-esophageal reflux disease On famotidine 9. FARSHAD (obstructive sleep apnea) Home CPAP 10. STEATOHEPATITIS, NONALCOHOLIC Okay to discharge per CT surgical standpoint Cardiology wants to keep here since she is down in atrial fibrillation again Magnesium level Continue current treatment Ambulate Patient seen and discussed with Dr. Patel [1] XR Chest 1 View; RICHADR GAUTHIER DO 05/04/2023 06:31 EDT Digitally Signed by TYLER BAIN APRN-VELMA on 05/04/2023 12:37 PM [id number] Note ORIGINAL EXAMINATION: ONE XRAY VIEW OF THE CHEST 05/04/2023 6:31 am COMPARISON: 05/03/2023 HISTORY: ORDERING SYSTEM PROVIDED HISTORY: Reason for Exam: Abnormal breathe sounds IMPRESSION: Stable cardiomediastinal contours. Prior RICHARD clipping. Monitor leads. Streaky bibasilar atelectasis or other airspace disease. Curvilinear left basilar atelectasis. No visible pneumothorax or pleural effusion. Interpreted by: Richard Gauthier DO Preliminary Report By: Richard Gauthier DO Electronically signed By Richard Gauthier DO Dictated Date: 05/04/2023 8:15:54 AM Prelim Date: 05/04/2023 8:17:28 AM Sign Date: 05/04/2023 8:17:28 AM Ordering Provider: NATALIA [facility]08-12-2023 NoteSINUS RHYTHM LOW VOLTAGE, PRECORDIAL LEADS Electronic Signature: AMALIA CLAYTON MD 05/04/2023 20:48:23[facility] 08-11-2023 Cardiology Progress note Date of Service 05/03/2023 Chief Complaint pHTN Subjective Chest tubes were removed yesterday. Today patient endorses significant improvement in chest pain. She remains in A-fib with RVR Objective Vitals and Measurements T: 37.8 C (Oral) TMIN: 36.0 C (Temporal Artery) TMAX: 37.8 C (Oral) HR: 85(Monitored) RR: 17 BP: 107/56 SpO2: 92% Intake and Output 7AM Yesterday to 7AM Today Intake and Output (Last 24 hours) Intake Administration Information 75.00 Oral Intake 590.00 Output Urine Voided 2900.00 Stool Count 1.00 Urine Count 2.00 Diaper Count 4.00 Total Summary Total Intake 665.00 Total Output 2900.00 Fluid Balance -2235.00 Physical Exam General Appearance: in no acute distress. Alert. EENT: No thyroid disease. ocular movements intact Cardiac: irregularly irregular. S1 and S2. no murmurs or rubs. Lungs: Normal bilateral breath sounds Abdomen: soft. non tender. bowel sounds audible Neurological: alert and oriented. Skin: warm. dry Weight Current Weight Dosing Weight: 78.9 kg (04/30/23) Current Weight: 79.8 kg (05/02/23) Medications Medications (27) Active Scheduled: (14) aspirin 81 mg EC 81 mg 1 tab(s), Oral, Daily colchicine 0.6 mg Tablet 0.6 mg 1 tab(s), Oral, BID docusate sodium 100 mg Capsule 100 mg 1 cap(s), Oral, TID dofetilide 500 mcg capsule 500 mcg 1 cap(s), Oral, q12h famotidine 20 mg tablet 20 mg 1 tab(s), Oral, qDay ketorolac 15 mg/mL vial 15 mg 1 mL, IV Push, q6hr magnesium oxide 400 mg Tablet 400 mg 1 tab(s), Oral, BID mupirocin 2% Ointment 22 Gram(s) tube 1 aleena, Nostril, each, q12h polyethylene glycol 3350 - UD packet 17 gram(s) 15 mL, Oral, qDay rivaroxaban 20 mg tablet 20 mg 1 tab(s), Oral, qDay scopolamine 1.5 mg (1 mg / 72 hours patch) 1 patch(es), Transdermal, q72h sodium biphosphate-sodium phosphate 19 gm-7 gm Enema 133 mL, Rectal, Once tadalafil 20 mg tablet 20 mg 1 tab(s), Oral, BID Transderm-Scop patch REMOVAL 1 EA, Miscellaneous, q72h Continuous: (3) NS (0.9% nacl) 1,000 mL 1,000 mL, Intravenous, 999 mL/hr NS (0.9% nacl) 1,000 mL 1,000 mL, Intravenous, 100 mL/hr phenylephrine 50 mg [50 mcg/min] + Dextrose 5% in Water 250 mL 250 mL, Intravenous, 15 mL/hr PRN: (10) acetaminophen 325 mg Tablet 650 mg 2 tab(s), Oral, q4h bisacodyl 10 mg Suppository 10 mg 1 supp, Rectal, Once busPIRone 5 mg Tablet 5 mg 1 tab(s), Oral, TID magnesium sulfate PMX 2 gram(s) 50 mL, IV Piggyback, AsDirected ondansetron 2 mg/ 1 mL 2 mL INJ 4 mg 2 mL, IV Push, q4h oxycodone 5 mg tablet (immediate release) 5 mg 1 tab(s), Oral, q4h oxycodone 5 mg tablet (immediate release) 10 mg 2 tab(s), Oral, q4h phenol topical 1.4% Spr 1 spray(s), Topical, q1h sodium chloride nasal 0.65% Hardaway 2 spray(s), Nostril, each, q2h trimethobenzamide 200 mg/2 mL Solution 200 mg 2 mL, Intramuscular, q6h Lab Results 05/03 11:43 WBC: 7.3 Hgb: 13.4 Hct: 38.4 Platelet: 158 Neutrophil %: 73.7 Glucose Level: 96 Sodium Level: 141 Potassium Level: 4.0 BUN: 14.0 Creatinine Lvl (s): 0.72 EKG EKG - Completed -- 05/02/23 9:37:00 EDT EKG - Completed -- 05/02/23 12:06:00 EDT Assessment/Plan Acute blood loss anemia Acute pericarditis ASD (atrial septal defect) Atrial fibrillation s/p Convergent Maze, RICHARD Clip, 04/30/2023 GERD - Gastro-esophageal reflux disease Heart failure Hypertension FARSHAD (obstructive sleep apnea) Pulmonary HTN STEATOHEPATITIS, NONALCOHOLIC Acute pericarditis Recurrent persistent A-fib/flutter status post convergent maze, left atrial appendage clip 04/30/2023 Pulmonary artery hypertension ASD status post closure with Amplatzer ASD closure device Nonalcoholic cirrhosis GERD/FARSHAD This 62-year-old female with prior history of pulmonary hypertension, secundum ASD status post Amplatzer ASD closure device who presented to the hospital for elective convergent maze procedure, ligation of left atrial appendage with 40 mm atrial cure atrial clip on 04/30/2023. Post surgery, patient developed pericarditis. She is now on Toradol and colchicine. Chest pain is improved today. She has also been in A-fib with RVR. Plan for ANTON followed by cardioversion today. She is on tadalafil for pulmonary hypertension which is currently on hold. Once blood pressure stabilizes we will restart. Digitally Signed by KE LOPEZ MD on 05/03/2023 04:26 PM [facility] [id number] Cardiology Progress note Date of Service 05/03/2023 Chief Complaint pHTN Subjective Chest tubes were removed yesterday. Today patient endorses significant improvement in chest pain. She remains in A-fib with RVR Objective Vitals and Measurements T: 37.8 C (Oral) TMIN: 36.0 C (Temporal Artery) TMAX: 37.8 C (Oral) HR: 85(Monitored) RR: 17 BP: 107/56 SpO2: 92% Intake and Output 7AM Yesterday to 7AM Today Intake and Output (Last 24 hours) Intake Administration Information 75.00 Oral Intake 590.00 Output Urine Voided 2900.00 Stool Count 1.00 Urine Count 2.00 Diaper Count 4.00 Total Summary Total Intake 665.00 Total Output 2900.00 Fluid Balance -2235.00 Physical Exam General Appearance: in no acute distress. Alert. EENT: No thyroid disease. ocular movements intact Cardiac: irregularly irregular. S1 and S2. no murmurs or rubs. Lungs: Normal bilateral breath sounds Abdomen: soft. non tender. bowel sounds audible Neurological: alert and oriented. Skin: warm. dry Weight Current Weight Dosing Weight: 78.9 kg (04/30/23) Current Weight: 79.8 kg (05/02/23) Medications Medications (27) Active Scheduled: (14) aspirin 81 mg EC 81 mg 1 tab(s), Oral, Daily colchicine 0.6 mg Tablet 0.6 mg 1 tab(s), Oral, BID docusate sodium 100 mg Capsule 100 mg 1 cap(s), Oral, TID dofetilide 500 mcg capsule 500 mcg 1 cap(s), Oral, q12h famotidine 20 mg tablet 20 mg 1 tab(s), Oral, qDay ketorolac 15 mg/mL vial 15 mg 1 mL, IV Push, q6hr magnesium oxide 400 mg Tablet 400 mg 1 tab(s), Oral, BID mupirocin 2% Ointment 22 Gram(s) tube 1 aleena, Nostril, each, q12h polyethylene glycol 3350 - UD packet 17 gram(s) 15 mL, Oral, qDay rivaroxaban 20 mg tablet 20 mg 1 tab(s), Oral, qDay scopolamine 1.5 mg (1 mg / 72 hours patch) 1 patch(es), Transdermal, q72h sodium biphosphate-sodium phosphate 19 gm-7 gm Enema 133 mL, Rectal, Once tadalafil 20 mg tablet 20 mg 1 tab(s), Oral, BID Transderm-Scop patch REMOVAL 1 EA, Miscellaneous, q72h Continuous: (3) NS (0.9% nacl) 1,000 mL 1,000 mL, Intravenous, 999 mL/hr NS (0.9% nacl) 1,000 mL 1,000 mL, Intravenous, 100 mL/hr phenylephrine 50 mg [50 mcg/min] + Dextrose 5% in Water 250 mL 250 mL, Intravenous, 15 mL/hr PRN: (10) acetaminophen 325 mg Tablet 650 mg 2 tab(s), Oral, q4h bisacodyl 10 mg Suppository 10 mg 1 supp, Rectal, Once busPIRone 5 mg Tablet 5 mg 1 tab(s), Oral, TID magnesium sulfate PMX 2 gram(s) 50 mL, IV Piggyback, AsDirected ondansetron 2 mg/ 1 mL 2 mL INJ 4 mg 2 mL, IV Push, q4h oxycodone 5 mg tablet (immediate release) 5 mg 1 tab(s), Oral, q4h oxycodone 5 mg tablet (immediate release) 10 mg 2 tab(s), Oral, q4h phenol topical 1.4% Spr 1 spray(s), Topical, q1h sodium chloride nasal 0.65% Hardaway 2 spray(s), Nostril, each, q2h trimethobenzamide 200 mg/2 mL Solution 200 mg 2 mL, Intramuscular, q6h Lab Results 05/03 11:43 WBC: 7.3 Hgb: 13.4 Hct: 38.4 Platelet: 158 Neutrophil %: 73.7 Glucose Level: 96 Sodium Level: 141 Potassium Level: 4.0 BUN: 14.0 Creatinine Lvl (s): 0.72 EKG EKG - Completed -- 05/02/23 9:37:00 EDT EKG - Completed -- 05/02/23 12:06:00 EDT Assessment/Plan Acute blood loss anemia Acute pericarditis ASD (atrial septal defect) Atrial fibrillation s/p Convergent Maze, RICHARD Clip, 04/30/2023 GERD - Gastro-esophageal reflux disease Heart failure Hypertension FARSHAD (obstructive sleep apnea) Pulmonary HTN STEATOHEPATITIS, NONALCOHOLIC Acute pericarditis Recurrent persistent A-fib/flutter status post convergent maze, left atrial appendage clip 04/30/2023 Pulmonary artery hypertension ASD status post closure with Amplatzer ASD closure device Nonalcoholic cirrhosis GERD/FARSHAD This 62-year-old female with prior history of pulmonary hypertension, secundum ASD status post Amplatzer ASD closure device who presented to the hospital for elective convergent maze procedure, ligation of left atrial appendage with 40 mm atrial cure atrial clip on 04/30/2023. Post surgery, patient developed pericarditis. She is now on Toradol and colchicine. Chest pain is improved today. She has also been in A-fib with RVR. Plan for ANTON followed by cardioversion today. She is on tadalafil for pulmonary hypertension which is currently on hold. Once blood pressure stabilizes we will restart. Digitally Signed by KE LOPEZ MD on 05/03/2023 04:26 PM [facility] [id number] Note Date of Service May 03, 2023 Shared/Split visit with Dr. Hardy Chief Complaint AF/AFL RVR Subjective This is a 62-year-old female with a known history of recurring persistent atrial fibrillation despite Tikosyn and Toprol therapy she continued to have breakthrough episodes. Unfortunate the patient had ASD closure. Patient was recommended to undergo Maze procedure. Patient underwent Maze procedure with left atrial pended clip completed on April 30, 2023. The patient ended up having pericarditis and resulted in A-fib/atrial flutter RVR. Patient underwent transesophageal echocardiogram clear of any clot or thrombus. However, unfortunately direct-current cardioversion yield early return of atrial fibrillation patient is unable to maintain sinus rhythm. She would have approximately 10 to 15 seconds of sinus rhythmfollowed by recurrence of A-fib RVR. At this time we will provide Cardizem/IV to help with rate and rhythm control eventually transitioning to oral Cardizem if possible. Past medical history significant for 1. Recurring persistent A-fib/atrial flutter status post Maze procedure with left atrial pended clip April 30, 2023 2. ASD closure 3. Hypertension 4. Nonalcoholic liver cirrhosis 5. Pulmonary hypertension followed by Dr. Feliciano 6. Comorbidities also include obstructive sleep apnea and acid reflux. Today, the patient is resting comfortably in bed. She notes she is experiencing tachycardia and palpitations along with recurring shortness of breath. Mostly residual from pericarditis and now A-fib RVR. Plan focus on rate and rhythm control. Objective Vitals and Measurements T: 36.0 C (Temporal Artery) TMIN: 36.0 C (Temporal Artery) TMAX: 37.0 C (Oral) HR: 108(Monitored) RR: 18 BP: 104/62 SpO2: 92% Physical Exam General - 62 yr old female appearing stated age HEENT - head normocephalic, atraumatic. Pupils equal reactive to light. Nose patent bilaterally. Oropharynx without erythema or exudate. Neck -supple, full range of motion. No carotid bruits noted. Cardiovascular - irregular rate and rhythm - tachycardic. No significant murmurs appreciated. Lungs - clear to auscultation bilaterally. Abdomen - soft, nontender. Bowel sounds present in all 4 quadrants. Musculoskeletal -full weightbearing. Full range of motion in all extremities. Skin -intact, no lesions or rashes noted. Neurological - cranial nerves grossly intact. Mood and affect appropriate to situation. Peripheral vascular - No pitting edema Weight Current Weight Dosing Weight: 78.9 kg (04/30/23) Current Weight: 79.8 kg (05/02/23) Medications Medications (27) Active Scheduled: (14) aspirin 81 mg EC 81 mg 1 tab(s), Oral, Daily colchicine 0.6 mg Tablet 0.6 mg 1 tab(s), Oral, BID docusate sodium 100 mg Capsule 100 mg 1 cap(s), Oral, TID dofetilide 500 mcg capsule 500 mcg 1 cap(s), Oral, q12h famotidine 20 mg tablet 20 mg 1 tab(s), Oral, qDay ketorolac 15 mg/mL vial 15 mg 1 mL, IV Push, q6hr magnesium oxide 400 mg Tablet 400 mg 1 tab(s), Oral, BID mupirocin 2% Ointment 22 Gram(s) tube 1 aleena, Nostril, each, q12h polyethylene glycol 3350 - UD packet 17 gram(s) 15 mL, Oral, qDay rivaroxaban 20 mg tablet 20 mg 1 tab(s), Oral, qDay scopolamine 1.5 mg (1 mg / 72 hours patch) 1 patch(es), Transdermal, q72h sodium biphosphate-sodium phosphate 19 gm-7 gm Enema 133 mL, Rectal, Once tadalafil 20 mg tablet 20 mg 1 tab(s), Oral, BID Transderm-Scop patch REMOVAL 1 EA, Miscellaneous, q72h Continuous: (3) NS (0.9% nacl) 1,000 mL 1,000 mL, Intravenous, 999 mL/hr NS (0.9% nacl) 1,000 mL 1,000 mL, Intravenous, 100 mL/hr phenylephrine 50 mg [50 mcg/min] + Dextrose 5% in Water 250 mL 250 mL, Intravenous, 15 mL/hr PRN: (10) acetaminophen 325 mg Tablet 650 mg 2 tab(s), Oral, q4h bisacodyl 10 mg Suppository 10 mg 1 supp, Rectal, Once busPIRone 5 mg Tablet 5 mg 1 tab(s), Oral, TID magnesium sulfate PMX 2 gram(s) 50 mL, IV Piggyback, AsDirected ondansetron 2 mg/ 1 mL 2 mL INJ 4 mg 2 mL, IV Push, q4h oxycodone 5 mg tablet (immediate release) 5 mg 1 tab(s), Oral, q4h oxycodone 5 mg tablet (immediate release) 10 mg 2 tab(s), Oral, q4h phenol topical 1.4% Spr 1 spray(s), Topical, q1h sodium chloride nasal 0.65% Hardaway 2 spray(s), Nostril, each, q2h trimethobenzamide 200 mg/2 mL Solution 200 mg 2 mL, Intramuscular, q6h Lab Results 05/03 11:43 WBC: 7.3 Hgb: 13.4 Hct: 38.4 Platelet: 158 Neutrophil %: 73.7 Glucose Level: 96 Sodium Level: 141 Potassium Level: 4.0 BUN: 14.0 Creatinine Lvl (s): 0.72 05/02 03:58 WBC: 10.2 Hgb: 12.7 Hct: 36.8 Platelet: 147 L Neutrophil %: 72.3 Glucose Level: 108 Sodium Level: 139 Potassium Level: 4.2 BUN: 23.0 H Creatinine Lvl (s): 0.76 EKG EKG - Completed -- 05/02/23 9:37:00 EDT EKG - Completed -- 05/02/23 12:06:00 EDT Assessment/Plan 1. Recurring persistent A-fib/atrial flutter status post Maze procedure with left atrial pended clip April 30, 2023 Recurring A-fib/atrial flutter RVR secondary to inflammation from pericarditis. Focus on rate control with Cardizem continue on Tikosyn 500 mcg twice daily. The patient remains in atrial fibrillation of the week and we can reattempt direct-current cardioversion on Saturday. 2. ASD closure Noted. At this time unable to perform endocardial ablation. 3. Hypertension Patient is experiencing bouts of hypotension possibly secondary to anesthetic and pericarditis. Blood pressure 104/62. During cardioversion patient went as low as 74/50. Digitally Signed by LIZETT SUH on 05/03/2023 03:36 PM [facility] [id number] Cardiology procedure note Date of Service May 03, 2023 Procedure Name Direct Current Cardioversion Referring Provider Gen Card Consent Informed consent was obtained by nursing and anesthesia personnel Indication AF/AFL RVR Location CVOR Technique This is a 62-year-old female that is status post maze procedure and left atrial appendage clip. Noted to have pericarditis resulting in A-fib/atrial flutter RVR undergoing transesophageal echocardiogram clear of any clot or thrombus Patient then presented for direct-current cardioversion in A-fib/atrial flutter RVR heart rate anywhere from 100 to 120 bpm. Once a BANKMAN administered an IV anesthetic agent the patient was fully sedated anterior-posterior patch ritualizing synchronized biphasic waveform at 75 J, 120 150 and 200 J all yield early return of atrial fibrillation. Patch placement was moved during different shocks administered. Along with a bolus of IV Cardizem between the third and fourth shock. Unfortunately, the patient continued to have early return of atrial fibrillation She will break into normal sinus rhythm lasting approximately 10 to 15 seconds before converting back to A-fib RVR. At this time we will work on management of pericarditis with reducing the inflammation along with rate control. IV Cardizem has been initiated to help with rate and rhythm control. Unfortunately, we cannot uptitrate Tikosyn she is already at 500 mcg twice daily. Digitally Signed by LIZETT SUH on 05/03/2023 03:29 PM Digitally Signed by MACI HARDY MD on 05/05/2023 11:16 PM [facility] [id number] Note* Exam Date Time Procedure Performing Provider Status 05/03/23 1:59 PM Transesophageal Echo cardiogram - CV Auth (Verified) [facility] 08-11-2023 Anesthesiology Consult note Patient: DORCAS ANGULO Age: 62 years Sex: Female : 1960 Associated Diagnoses: None Author: DEREK ALMENDAREZ DO Preoperative Information Greater than 6 hours Anesthesia history Patient's history: negative. Family's history: negative. Review of Systems Ear/Nose/Mouth/Throat: Negative except as documented in history of present illness. Respiratory: Negative except as documented in history of present illness. Cardiovascular: Negative except as documented in history of present illness, AF, previous Convergent MAZE with RICHARD ligation for ANTON and DCC.. Gastrointestinal: Negative except as documented in history of present illness. Genitourinary: Negative except as documented in history of present illness. Endocrine: Negative except as documented in history of present illness. Musculoskeletal: Negative except as documented in history of present illness. Integumentary: Negative except as documented in history of present illness. Neurologic: Negative except as documented in history of present illness. Health Status Allergies: Allergic Reactions (Selected) Severity Not Documented Bactrim- Itching and rash. Cigarette smoke- Watery eye and nasal drainage. Codeine- Hallucinations. Dilaudid- Dizziness, diarrhea and nausea and vomiting. Ibuprofen- Itching. Iodinated radiocontrast dyes- Racing heartbeat. Morphine- Itching. Sulfa drugs- Rash and itching., Allergies (8) ActiveReaction BactrimItching Cigarette smokeWatery eye codeineHALLUCINATIONS DilaudidDizziness ibuprofenItching iodinated radiocontrast dyesRacing heartbeat morphineItching sulfa drugsItching Current medications: (Selected) Inpatient Medications Ordered Dulcolax Laxative: 10 mg, 1 supp, Rectal, Once Dulcolax Laxative: 10 mg, 1 supp, Rectal, Once, PRN: Constipation Fleet Enema: 133 mL, Rectal, Once Miralax Powder Packet: 17 gram(s), 15 mL, Oral, qDay Normal Saline 500 mL 1,000 mL: 100 mL/hr, Intravenous Normal Saline 500 mL 1,000 mL: 999 mL/hr, Intravenous Pepcid: 20 mg, 1 tab(s), Oral, qDay Sore Throat Hardaway: 1 spray(s), Topical, q1h, PRN: Sore throat Tigan: 200 mg, 2 mL, Intramuscular, q6h, PRN: Nausea/Vomiting Tikosyn: 500 mcg, 1 cap(s), Oral, q12h Toradol: 15 mg, 1 mL, IV Push, q6hr Transderm-Scop 1 mg/72 hr transdermal film, extended release: 1 patch(es), Transdermal, q72h Tylenol: 650 mg, 2 tab(s), Oral, q4h, PRN: Pain, scale 1-3 Xarelto: 20 mg, 1 tab(s), Oral, qDay Zofran: 4 mg, 2 mL, IV Push, q4h, PRN: Nausea/Vomiting aspirin 81 mg oral delayed release tablet: 81 mg, 1 tab(s), Oral, Daily busPIRone: 5 mg, 1 tab(s), Oral, TID, PRN: Anxiety colchicine 0.6 mg oral tablet: 0.6 mg, 1 tab(s), Oral, BID docusate: 100 mg, 1 cap(s), Oral, TID magnesium oxide: 400 mg, 1 tab(s), Oral, BID magnesium sulfate for IV bolus: 2 gram(s), 50 mL, 25 mL/hr, IV Piggyback, AsDirected, PRN: for Mg level 1.6-1.9 mg/dL mupirocin 2% topical ointment: 1 aleena, Nostril, each, q12h oxyCODONE 5 mg oral tablet ( IMMEDIATE release ): 10 mg, 2 tab(s), Oral, q4h, PRN: Pain, scale 7-10 oxyCODONE 5 mg oral tablet ( IMMEDIATE release ): 5 mg, 1 tab(s), Oral, q4h, PRN: Pain, scale 4-6 phenylephrine for IV 50 mg [50 mcg/min] + Dextrose 5%/ Water titrate 250 mL: 15 mL/hr, Intravenous saline nasal 0.65% solution: 2 spray(s), Nostril, each, q2h, PRN: Dry nasal passages scopolamine (Transderm-Scop Patch REMOVAL): 1 EA, Miscellaneous, q72h tadalafil: 20 mg, 1 tab(s), Oral, BID Prescriptions Prescribed Klor-Con M20 oral tablet, extended release: 20 mEq, 1 tab(s), Oral, qDay, 30 tab(s), 3 Refill(s) Tadalafil (Eqv-Cialis) 20 mg oral tablet: 20 mg, 1 tab(s), Oral, BID, 60 tab(s), 2 Refill(s) Xarelto 20 mg oral tablet: 20 mg, 1 tab(s), Oral, qDay, 30 tab(s), 11 Refill(s) aspirin 81 mg oral delayed release tablet: 81 mg, 1 tab(s), Oral, Daily, 30 tab(s), 6 Refill(s) bumetanide 1 mg oral tablet: 1 mg, 1 tab(s), Oral, Daily, PRN: Swelling/weight gain, 30 tab(s), 2 Refill(s) Documented Medications Documented Tikosyn 250 mcg oral capsule: 500 mcg, 2 cap(s), Oral, BID Tylenol 325 mg oral capsule: 325 mg, 1 cap(s), Oral, q4h, PRN: as needed for pain, 20 cap(s), 0 Refill(s) Vitamin D3 1000 intl units oral tablet: 1,000 unit(s), 1 tab(s), Oral, qDay, 0 Refill(s) busPIRone 5 mg oral tablet: 5 mg, 1 tab(s), Oral, TID, PRN: Anxiety, 270 tab(s), 0 Refill(s) cyanocobalamin 1000 mcg oral tablet: 1,000 mcg, 1 tab(s), Oral, qDay magnesium oxide 250 mg oral tablet: 500 mg, 2 tab(s), Oral, BID metoprolol succinate 25 mg oral TABLET extended release: See Instructions, 0.5 tab(s) NEEDED., 0Refill(s), Medications (28) Active Scheduled: (15) aspirin 81 mg EC 81 mg 1 tab(s), Oral, Daily bisacodyl 10 mg Suppository 10 mg 1 supp, Rectal, Once colchicine 0.6 mg Tablet 0.6 mg 1 tab(s), Oral, BID docusate sodium 100 mg Capsule 100 mg 1 cap(s), Oral, TID dofetilide 500 mcg capsule 500 mcg 1 cap(s), Oral, q12h famotidine 20 mg tablet 20 mg 1 tab(s), Oral, qDay ketorolac 15 mg/mL vial 15 mg 1 mL, IV Push, q6hr magnesium oxide 400 mg Tablet 400 mg 1 tab(s), Oral, BID mupirocin 2% Ointment 22 Gram(s) tube 1 aleena, Nostril, each, q12h polyethylene glycol 3350 - UD packet 17 gram(s) 15 mL, Oral, qDay rivaroxaban 20 mg tablet 20 mg 1 tab(s), Oral, qDay scopolamine 1.5 mg (1 mg / 72 hours patch) 1 patch(es), Transdermal, q72h sodium biphosphate-sodium phosphate 19 gm-7 gm Enema 133 mL, Rectal, Once tadalafil 20 mg tablet 20 mg 1 tab(s), Oral, BID Transderm-Scop patch REMOVAL 1 EA, Miscellaneous, q72h Continuous: (3) NS (0.9% nacl) 1,000 mL 1,000 mL, Intravenous, 999 mL/hr NS (0.9% nacl) 1,000 mL 1,000 mL, Intravenous, 100 mL/hr phenylephrine 50 mg [50 mcg/min] + Dextrose 5% in Water 250 mL 250 mL, Intravenous, 15 mL/hr PRN: (10) acetaminophen 325 mg Tablet 650 mg 2 tab(s), Oral, q4h bisacodyl 10 mg Suppository 10 mg 1 supp, Rectal, Once busPIRone 5 mg Tablet 5 mg 1 tab(s), Oral, TID magnesium sulfate PMX 2 gram(s) 50 mL, IV Piggyback, AsDirected ondansetron 2 mg/ 1 mL 2 mL INJ 4 mg 2 mL, IV Push, q4h oxycodone 5 mg tablet (immediate release) 5 mg 1 tab(s), Oral, q4h oxycodone 5 mg tablet (immediate release) 10 mg 2 tab(s), Oral, q4h phenol topical 1.4% Spr 1 spray(s), Topical, q1h sodium chloride nasal 0.65% [place] 2 spray(s), Nostril, each, q2h trimethobenzamide 200 mg/2 mL Solution 200 mg 2 mL, Intramuscular, q6h Problem list: Medical Acute blood loss anemia / SNOMED CT 226594669 / Confirmed Anxiety / SNOMED CT 71632882 / Confirmed Atrial fibrillation / SNOMED CT 10545364 / Confirmed ATRIAL FIBRILLATION WITH RVR / SNOMED CT 7406659309 / Confirmed CHEST PAIN, ATYPICAL / SNOMED CT 779768860 / Confirmed Back pain / SNOMED CT 4242403313 / Confirmed CHEST WALL PAIN / SNOMED CT 169747536 / Confirmed Cirrhosis, non-alcoholic / SNOMED CT 485833409 / Confirmed Eczema / SNOMED CT 93268655 / Confirmed GERD - Gastro-esophageal reflux disease / SNOMED CT 1714193102 / Confirmed MTHFR gene mutation / SNOMED CT 2660376312 / Confirmed Hypertension / SNOMED CT 4908798222 / Confirmed REFUSED INFLUENZA VACCINE / SNOMED CT 466757100 / Confirmed Migraine / SNOMED CT 21230683 / Confirmed SYNCOPE, NEAR / SNOMED CT 4260666511 / Confirmed STEATOHEPATITIS, NONALCOHOLIC / SNOMED CT 9016779211 / Confirmed FARSHAD (obstructive sleep apnea) / SNOMED CT 694260162 / Confirmed Osteoarthritis / SNOMED CT 6553098384 / Confirmed ASD secundum / SNOMED CT 620251252 / Confirmed Thyroid enlargement / SNOMED CT 319573777 / Confirmed Urinary incontinence / SNOMED CT 7507770670 / Confirmed REFUSED PNEUMOCOCCAL VACCINE / SNOMED CT 7693888800 / Confirmed, Active Problems (35) Acute blood loss anemia Anxiety Anxiety ASD (atrial septal defect) ASD secundum Atrial fibrillation ATRIAL FIBRILLATION WITH RVR Back pain Chest pain CHEST PAIN, ATYPICAL CHEST WALL PAIN Cirrhosis, non-alcoholic Diverticulosis Eczema Exertional shortness of breath GERD - Gastro-esophageal reflux disease Heart failure Hypertension Migraine MTHFR gene mutation On anticoagulant therapy FARSHAD (obstructive sleep apnea) Osteoarthritis PONV (postoperative nausea and vomiting) Pulmonary HTN REFUSED INFLUENZA VACCINE REFUSED PNEUMOCOCCAL VACCINE Right heart enlargement Seasonal allergy Sleep apnea with use of continuous positive airway pressure (CPAP) STEATOHEPATITIS, NONALCOHOLIC SYNCOPE, NEAR Thyroid enlargement Tinnitus Urinary incontinence Histories Past Medical History: Active Back pain (7317624822) Migraine (93659473) Urinary incontinence (1541962229) GERD - Gastro-esophageal reflux disease (4121632653) Thyroid enlargement (679795150) Eczema (76114173) Comments: 07/16/2013 EDT 11:50 CIARRA - KWAN Stanley of back Resolved DEHYDRATION (25007887): Resolved. DIARRHEA ([id number]): Resolved. Comments: - acute Family History: Cancer Father () Brother Cardiac pacemaker Father () Sister Atrial fibrillation Sister Mother High blood pressure Mother Heart failure Father () Stroke Mother Sister Malignant tumor of ovary Sister Pulmonary embolism Daughter Malignant tumor of lung Father () Leukemia Brother Deep vein thrombosis Daughter Procedure history: Echocardiogram ([id number]) on 02/06/2023 at 62 Years. Comments: 02/13/2023 14:07 Elana Glez MA (ABR-OE) 1. Left ventricle: The cavity size is normal. Wall thickness is mildly increased. Systolic functionis normal. The estimated ejection fraction is 55-60%. Wall motion is normal; there are no regional wall motion abnormalities. Normal diastolic function. 2. Ventricular septum: Thickness is mildly increased. 3. Mitral valve: Systolic bowing without prolapse. 4. Right ventricle: The RV systolic pressure by Doppler is 23 mm Hg. 5. Right atrium: The estimated right atrial pressure is 3 mm Hg. 6. Atrial septum: There is an Amplatzer closure device in the fossa ovalis region. There is no atrial level shunt by color doppler. Holter monitor ([id number]) on 11/17/2022 at 62 Years. Comments: 12/17/2022 11:20 Elana Glez MA (ABR-OE) 3-day ekg monitor tech significant for frequent episodes of long sustained atrial fibrillation atrial flutter converting to sinus rhythm spontaneously. Rare isolated premature atrial and ventricular beats were noted in singles as well. No atrial ventricular pauses observed. Cardioversion ([id number]) on 10/09/2022 at 62 Years. Transesophageal echocardiogram ([id number]) on 09/14/2022 at 62 Years. Comments: 09/30/2022 18:00 Elana Paris MA (ABR-OE) 1. Left ventricle: The cavity size is normal. Wall thickness is normal. Systolic function is normal. The estimated ejection fraction is 55-60%. There is no evidence of a thrombus. 2. Ventricular septum: There is no evidence of a ventricular septal defect. 3. Mitral valve: Posterior leaflet mobility is mildly restricted. There is no evidence of vegetation. There is mild to moderate regurgitation. 4. Left atrium: There is no evidence of a thrombus in the atrial cavity or appendage. No spontaneous echo contrast is observed. 5. Tricuspid valve: There is mild regurgitation. The regurgitant peak velocity is 2.2 m/sec. 6. Right atrium: The atrium is dilated. There is no evidence of a thrombus in the atrial cavity or appendage. Right atrial area 21.94 cm 7. Atrial septum: There is no atrial level shunt. There is no evidence of thrombus. Atrial septal occluder device is noted and is well positioned. No color-flow noted across the interatrial septum. Agitated saline contraststudy does not show an interatrial shunt. 8. Systemic veins: IVC is 2.2 cm, mildly dilated. 9. Pericardium, extracardiac: A small, free-flowing pericardial effusion is identified posterior tothe heart. The fluid has no internal echoes. There is no evidence of hemodynamic compromise. Recommendations: 1. IVC is 2.2 cm. Well-positioned ASD closure device. 2. No RICHARD thrombus. Cardioversion ([id number]) on 09/14/2022 at 62 Years. Cardiac catheterization ([id number]) on 08/29/2022 at 62 Years. Comments: 09/30/2022 18:00 Elana Paris MA (ABR-OE) No significant obstructive CAD. Normal LVEDP. EGD - Esophagogastroduodenoscopy ([id number]) in 2021 at 62 Years. Echocardiogram ([id number]) on 08/15/2022 at 61 Years. Comments: 09/30/2022 18:01 Elana Paris MA (ABR-OE) 1. Limited ECHO for assessment of pericardial effusion. 2. Left ventricle: Systolic function is normal. 3. Pericardium, extracardiac: A [id number], free-flowing pericardial effusion is identified posterior to the heart. The fluid has no internal echoes. There is no evidence of chamber collapse. Respirophasic change in transvalvular velocities is within normal limits. No clinical tamponade. 4. Inferior vena cava: The IVC is normal-sized. Respirophasic diameter changes are in the normal range (> 50%). 5. Right atrium: The estimated right atrial pressure is 3 mm Hg. Echocardiogram ([id number]) on 08/08/2022 at 61 Years. Comments: 09/30/2022 18:02 Elana Paris MA (ABR-OE) 1. Study data: limited for effusion check 2. Pericardium, extracardiac: A small pericardial effusion is identified posterior to the heart andalong the left ventricular free wall. There is no evidence of hemodynamic compromise. 3. Left ventricle: The cavity size is normal. Wall thickness is normal. Systolic function is normal. The estimated ejection fraction is 60-65%. Although no diagnostic regional wall motion abnormality is identified, this possibility cannot be completely excluded on the basis of this study. 4. Mitral valve: There is mild, 1+ regurgitation. 5. Left atrium: The atrium is mildly dilated. 6. Tricuspid valve: There is mild, 1+ regurgitation. 7. Right atrium: The atrium is mildly dilated. PFO - Closure of patent foramen ovale ([id number]) on 08/07/2022 at 61 Years. Echocardiogram ([id number]) on 08/07/2022 at 61 Years. Comments: 09/30/2022 18:03 Elana Paris MA (ABR-OE) Pericardium, extracardiac: A small to moderate posterior pericardial effusion is identified size 1.3 cm. There is no RV diastolic collapse noted. Previous TTE from March 2022 shows similar findings. Echocardiogram ([id number]) on 08/07/2022 at 61 Years. Comments: 09/30/2022 18:03 Elana Paris MA (ABR-OE) 1. Pericardium, extracardiac: A small pericardial effusion is identified. Features are not consistent with tamponade physiology. 2. Inferior vena cava: The IVC is trivially dilated Transesophageal echocardiogram ([id number]) on 08/07/2022 at 61 Years. Comments: 09/30/2022 18:04 Elana Paris MA (ABR-OE) 1. Left ventricle: Systolic function is normal. 2. Left atrium: There is no evidence of a thrombus in the atrial cavity or appendage. No spontaneous echo contrast is observed. 3. Right ventricle: The cavity size is mildly increased. 4. Right atrium: The atrium is dilated. There is no evidence of a thrombus in the atrial cavity or appendage. 5. Atrial septum: There is a 0.6 cm2 secundum ASD. Successful implantation of ASD closure device. 6. Pericardium, extracardiac: A small pericardial effusion is identified pre procedure and did not change post procedure Transesophageal echocardiogram ([id number]) on 06/15/2022 at 61 Years. Comments: 09/30/2022 18:05 Elana Paris MA (ABR-OE) 1. Left ventricle: Systolic function is normal. 2. Left atrium: There is no evidence of a thrombus in the atrial cavity or appendage. No spontaneous echo contrast is observed. 3. Right ventricle: The cavity size is increased. 4. Pulmonic valve: There is no evidence of a vegetation. 5. Tricuspid valve: There is no evidence of a vegetation. 6. Right atrium: The atrium is dilated. There is no evidence of a thrombus in the atrial cavity or appendage. 7. Atrial septum: Secundum ASD, 8 mm in diameter, 0.5 cm area noted with a predominant [id number] shunt on color Doppler as well as agitated saline study. Some right to left shunting noted with provocative maneuvers. 8. Inferior vena cava: The IVC is dilated at 2.2 cm. 9. Pericardium, extracardiac: A small pericardial effusion is identified Spirometry ([id number]) on 04/24/2022 at 61 Years. Comments: 09/30/2022 18:06 Elana Paris MA (ABR-OE) 1. Moderate degree of restrictive airway disease. 2. Bronchodilator therapy has not demonstrated any significant change indicating that the patient will not benefit from continued bronchodilator therapy. 3. No evidence of diffusion defect. Cardiac catheterization ([id number]) on 04/13/2022 at 61 Years. Dilation and curettage ([id number]) in 2016 at 56 Years. Hysteroscopy ([id number]) in 2016 at 56 Years. Colonoscopy (033913254) in 2011 at 52 Years. Bunionectomy (38605959) in 2007 at 48 Years. Tubal ligation (881371105) in 1992 at 33 Years. Suspension of bladder (5271396) in 1991 at 32 Years. Tonsillectomy (740315131) in 1963 at 4 Years. Social History Social & Psychosocial Habits Alcohol 04/30/2023 Use: Never Employment/School 10/08/2019 Status: Employed Activity level: Occasional physical work Substance Abuse 04/30/2023 Use: Never Tobacco 04/30/2023 Tobacco Use: Never (less than 100 in l Home/Environment 04/30/2023 Domestic Concerns Denies 04/30/2023 Domestic Concerns Denies, None Living situation: Home/Independent Lives In 1st floor bathroom, 1st floor bedroom, Single level home Current Home Treatments Blood Pressure monitoring, CPAP machine Marital Status of Patient if Patient Independent Adult: Comment: will be staying with son after OR and he has 5 steps - 04/16/2023 14:11 - Erlinda Beaver RN Nutrition/Health 04/30/2023 Type of diet: Low sodium Appetite Good Eating Difficulties None Caffeine intake amount: no caffeine intake . Physical Examination Vital Signs(last 24 hrs) Last Charted Temp Oral36.4 DegC (MAY 03:) Heart Rate MonitoredH 117bpm (MAY 03) Resp Rate 18 br/min (MAY 03) EZR821 mmHg (MAY 03) DBP79 mmHg (MAY 03) General: Alert and oriented. Airway: Normal temporomandibular joint mobility, Normal mouth, Normal throat, Normal neck range of motion, Trachea midline. Mallampati classification: II (soft palate, fauces, uvula visible). Head: Normocephalic. Dentition Evaluation: Intact, Own teeth, Denies loose/chipped teeth. Neck: Supple. Respiratory: Lungs are clear to auscultation. Cardiovascular: Normal rate. Heart Sounds: Normal. Gastrointestinal: Soft. Musculoskeletal Normal range of motion. Integumentary: Intact, Warm, Dry, [place]. Neurologic: Alert, Oriented. Review / Management Results review: Labs (Last four charted values) WBC 7.3(MAY 03)10.2(MAY 02)H 12.8(MAY 01) Hgb 13.4(MAY 03)12.7(MAY 02)13.2(MAY 01)14.7(APR 30) Hct 38.4(MAY 03)36.8(MAY 02)38.2(MAY 01)43.0(APR 30) Plt 158(MAY 03)L 147(MAY 02)190(MAY 01)168(APR 30) Na 141(MAY 03)139(MAY 02)139(MAY 01)143(APR 30) K 4.0(MAY 03)4.2(MAY 02)4.0(MAY 01)4.0(APR 30) CO2 28(MAY 03)27(MAY 02)27(MAY 01)31(APR 30) Cl 107(MAY 03)106(MAY 02)106(MAY 01)108(APR 30) Cr 0.72(MAY 03)0.76(MAY 02)0.70(MAY 01)0.79(APR 30) BUN 14.0(MAY 03)H 23.0(MAY 02)14.0(MAY 01)16.0(APR 30) Glucose 96(MAY 03)108(MAY 02)H 118(MAY 01)H 123(APR 30) Mg 1.8(MAY 03)1.9(APR 30) Ca 8.7(MAY 03)L 8.2(MAY 02)L 8.5(MAY 01)9.3(APR 30) PT 11.8(APR 30) INR 1.0(APR 30) PTT H 37.3(APR 30) . Assessment and Plan [place] [employer]esthesiologists (ASA) physical status classification: Class IV. Anesthetic Preoperative Plan Premedication: None. Anesthetic technique: General. Induction: intravenously. Maintenance airway: Mask. Special techniques: Warming device, no Extracorporeal. Special Monitoring. Postoperative pain management: Per surgeon. Risks discussed: nausea, vomiting, headache, sore throat, dental injury, hypotension, allergic reaction, serious complications. Informed consent: signed by patient. Beta Wyatt: Beta Wyatt Taken Within 24 Hrs: Yes. Digitally Signed by DEREK ALMENDAREZ DO on 05/03/2023 01:14 PM [id number] Note Date of Service 05/03/2023 Chief Complaint This is a 62-year-old female with a significant past medical history of Abarca liver cirrhosis, hypothyroidism, ostium secundum ASD s/p closure with 14 mm Amplatz device, mild pulmonary hypertension (on tadalafil) , and atrial fibrillation (metoprolol, Tikosyn, and Xarelto) who presents for evaluation for left atrial appendage occlusion and left atrial appendage ligation/convergent procedure.. She has intermittent atrial fibrillation with some improvement with buspirone. However, she is quite symptomatic episodes that occur approximately twice per week. Denies chest pain. Episodes last 8 hours.Triggers are anxiety, ( with PTSD), caffeine and chocolate. [1] On 04/30/2023 patient underwent a convergent maze procedure via subxiphoid approach, ligation of left atrial appendage with 40 mm AtriCure clip, ANTON. She tolerated the procedure well was transferred to the CV SICU in stable condition. She was recovered in the CV SICU. Cardiology was consulted urgently overnight due to abnormal EKG, patient with complaints of severe pleuritic chest pain worsening with deep inspiration or coughing, as well as left shoulder pain. EKG with widespread ST elevation. Triphasic pericardial friction rub. Troponin trends ordered as well as ESR, CRP, Toradol and colchicine. POD #1: Patient states pain eased with Toradol and colchicine last p.m. Left lateral chest tube milked for clot and patient com plained of increased left shoulder pain, Toradol given IV. Continue Toradol for 24 hours. Possibly DC left lateral chest tube later today. Transfer to stepdown. [1] POD #2 she continues to have slightly increased rate of her atrial fibrillation in the 1 teens to 120s. Received IV Lopressor last night per EP. Mediastinal chest tube to be reassessed this afternoon for possible discontinuation. [1] POD #3: Still with complaints of chest discomfort especially with movement. Rub less audible. For ANTON for evaluation of RICHARD closure and DCC per cardiology today. Subjective Patient lying in bed, complaining of discomfort with movement and deep breathing Objective Vitals and Measurements T: 37.0 C (Oral) TMIN: 36.4 C (Oral) TMAX: 37.0 C (Oral) HR: 126(Monitored) RR: 18 BP: 133/92 SpO2:93% Intake and Output 7AM Yesterday to 7AM Today Intake and Output (Last 24 hours) Intake Oral Intake 590.00 Output Chest Tube Output: 0.00 Urine Voided 3100.00 Urine Count 2.00 Total Summary Total Intake 590.00 Total Output 3100.00 Fluid Balance -2510.00 Physical Exam Neuro: Alert and oriented x 3 Lungs: Few bibasilar crackles in bases posteriorly Subxiphoid incision without drainage Heart: Irregularly irregular, atrial flutter with heart rate 120s Abdomen: Obese, positive bowel sounds, no BM Extremities: No edema, DP palpable bilaterally Weight Current Weight Dosing Weight: 78.9 kg (04/30/23) Current Weight: 79.8 kg (05/02/23) Medications Medications (25) Active Scheduled: (12) aspirin 81 mg EC 81 mg 1 tab(s), Oral, Daily colchicine 0.6 mg Tablet 0.6 mg 1 tab(s), Oral, BID docusate sodium 100 mg Capsule 100 mg 1 cap(s), Oral, TID dofetilide 500 mcg capsule 500 mcg 1 cap(s), Oral, q12h famotidine 20 mg tablet 20 mg 1 tab(s), Oral, qDay ketorolac 15 mg/mL vial 15 mg 1 mL, IV Push, q6hr magnesium oxide 400 mg Tablet 400 mg 1 tab(s), Oral, BID mupirocin 2% Ointment 22 Gram(s) tube 1 aleena, Nostril, each, q12h rivaroxaban 20 mg tablet 20 mg 1 tab(s), Oral, qDay scopolamine 1.5 mg (1 mg / 72 hours patch) 1 patch(es), Transdermal, q72h tadalafil 20 mg tablet 20 mg 1 tab(s), Oral, BID Transderm-Scop patch REMOVAL 1 EA, Miscellaneous, q72h Continuous: (3) NS (0.9% nacl) 1,000 mL 1,000 mL, Intravenous, 999 mL/hr NS (0.9% nacl) 1,000 mL 1,000 mL, Intravenous, 100 mL/hr phenylephrine 50 mg [50 mcg/min] + Dextrose 5% in Water 250 mL 250 mL, Intravenous, 15 mL/hr PRN: (10) acetaminophen 325 mg Tablet 650 mg 2 tab(s), Oral, q4h bisacodyl 10 mg Suppository 10 mg 1 supp, Rectal, Once busPIRone 5 mg Tablet 5 mg 1 tab(s), Oral, TID magnesium sulfate PMX 2 gram(s) 50 mL, IV Piggyback, AsDirected ondansetron 2 mg/ 1 mL 2 mL INJ 4 mg 2 mL, IV Push, q4h oxycodone 5 mg tablet (immediate release) 5 mg 1 tab(s), Oral, q4h oxycodone 5 mg tablet (immediate release) 10 mg 2 tab(s), Oral, q4h phenol topical 1.4% Spr 1 spray(s), Topical, q1h sodium chloride nasal 0.65% [place] 2 spray(s), Nostril, each, q2h trimethobenzamide 200 mg/2 mL Solution 200 mg 2 mL, Intramuscular, q6h Lab Results 05/03 11:43 WBC: 7.3 Hgb: 13.4 Hct: 38.4 Platelet: 158 Neutrophil %: 73.7 05/02 03:58 WBC: 10.2 Hgb: 12.7 Hct: 36.8 Platelet: 147 L Neutrophil %: 72.3 Glucose Level: 108 Sodium Level: 139 Potassium Level: 4.2 BUN: 23.0 H Creatinine Lvl (s): 0.76 Imaging Results and Diagnostics (05/03/2023 05:51 EDT XR Chest 1 View) ORIGINAL EXAMINATION: ONE XRAY VIEW OF THE CHEST05/03/2023 5:51 am COMPARISON: 05/02/2023 HISTORY: ORDERING SYSTEM PROVIDED HISTORY: Reason for Exam: post surgery FINDINGS: Interval removal of mediastinal/chest tube. The cardiomediastinal silhouette and left atrial appendage clip appear stable. There is no pulmonary vascular congestion. Bibasilar left more so than right airspace opacities. Trace bilateral pleural effusions. No pneumothorax. IMPRESSION: Bibasilar left more so than right airspace opacities, with underlying trace bilateral pleural effusions. Findings are similar to the prior exam. [2] EKG Electrocardiogram (EKG) - InProcess -- 05/02/23 12:06:00 EDT Assessment/Plan 1. Atrial fibrillation s/p Convergent Maze, RICHARD Clip, 04/30/2023 Atrial flutter, heart rate in the 120s, for ANTON today, on Xarelto, dofetilide 2. Acute pericarditis On p.o. colchicine and IV Toradol 3. ASD (atrial septal defect) Status post repair 4. Heart failure 5. Acute blood loss anemia Hematocrit 38.4%, no active bleeding 6. Hypertension Systolic BP 103 133, on dofetilide 7. Pulmonary HTN Until tadalafil at home 8. GERD - Gastro-esophageal reflux disease On famotidine 9. FARSHAD (obstructive sleep apnea) Home CPAP 10. STEATOHEPATITIS, NONALCOHOLIC Plan: For ANTON and DCCV per cardiology today On Xarelto for atrial fibrillation Continue dofetilide Colchicine and Toradol for acute pericarditis per cardiology Patient seen with Dr. Ford [1] Progress Note; CHAVA GAMEZ 05/02/2023 10:09 EDT [2] XR Chest 1 View; LILLIAM BURNHAM MD 05/03/2023 05:51 EDT Digitally Signed by GEORGE SELF on 05/03/2023 12:06 PM [facility] [id number] Note ORIGINAL EXAMINATION: ONE XRAY VIEW OF THE CHEST05/03/2023 5:51 am COMPARISON: 05/02/2023 HISTORY: ORDERING SYSTEM PROVIDED HISTORY: Reason for Exam: post surgery FINDINGS: Interval removal of mediastinal/chest tube. The cardiomediastinal silhouette and left atrial appendage clip appear stable. There is no pulmonary vascular congestion. Bibasilar left more so than right airspace opacities. Trace bilateral pleural effusions. No pneumothorax. IMPRESSION: Bibasilar left more so than right airspace opacities, with underlying trace bilateral pleural effusions. Findings are similar to the prior exam. Preliminary Report was Dictated by a Resident Interpreted by: Lilliam Burnham MD Preliminary Report By: Jamar Escalera Electronically signed By Lilliam Burnham MD Dictated Date: 05/03/2023 6:30:39 AM Prelim Date: 05/03/2023 6:33:08 AM Sign Date: 05/03/2023 7:16:48 AM Ordering Provider[facility] [id number] Note* Exam Date Time Procedure Performing Provider Status 05/02/23 6:18 PM Echocardiogram, Adult - CV Auth (Verified) [facility] 08-10-2023 Cardiology Consult note Date of Service 05/02/2023 Reason for Consultation pHTN Referring Physician General cardiology History of Present Illness This is a 62-year-old female with prior history of pulmonary hypertension, second MAST, A-fib/flutter, liver cirrhosis, hypothyroidism who presented to the hospital for elective Maze procedure/left atrial appendage clip. Patient has has recurrent persistent atrial fibrillation. She was previously on Xarelto dofetilide and metoprolol. She is not a candidate for percutaneous A-fib ablation due to Amplatzer ASD closure device blocking the septal approach. Patient underwent maze procedure and tolerated the procedure well. However she then developed pericarditis. She still has chest tubes in place. Currently being treated with colchicine. Patient seems to be in A-fib/flutter currently with heart rate in 120s. Review of Systems 12 point ROS reviewed and negative unless stated above. Physical Exam Vitals and Measurements T: 36.5 C (Oral) TMIN: 36.5 C (Oral) TMAX: 37.5 C (Oral) HR: 121(Monitored) RR: 16 BP: 98/62 SpO2: 93% WT: 79.8 kg Weight Current Weight Dosing Weight: 78.9 kg (04/30/23) Current Weight: 79.8 kg (05/02/23) General Appearance: in no acute distress. Alert. EENT: No thyroid disease. ocular movements intact Cardiac: irregularly irregular. S1 and S2. no murmurs or rubs. Lungs: shallow breath sounds Abdomen: soft. non tender. bowel sounds audible Neurological: alert and oriented. Skin: warm. dry Lab Results 05/02 03:58 WBC: 10.2 Hgb: 12.7 Hct: 36.8 Platelet: 147 L Neutrophil %: 72.3 Glucose Level: 108 Sodium Level: 139 Potassium Level: 4.2 BUN: 23.0 H Creatinine Lvl (s): 0.76 EKG EC05/01/23: SINUS RHYTHM ABNORMAL R-WAVE PROGRESSION, EARLY TRANSITION INFERIOR INFARCT, ACUTE (LCX) ST ELEVATION, CONSIDER ANTEROLATERAL INJURY Electronic Signature: GIOVANNA FELICIANO MD 05/02/2023 08:15:04 Assessment/Plan Acute blood loss anemia Acute pericarditis ASD (atrial septal defect) Atrial fibrillation s/p Convergent Maze, RICHARD Clip, 04/30/2023 GERD - Gastro-esophageal reflux disease Heart failure Hypertension FARSHAD (obstructive sleep apnea) Pulmonary HTN STEATOHEPATITIS, NONALCOHOLIC Acute pericarditis Recurrent persistent A-fib/flutter status post convergent maze, left atrial appendage clip 04/30/2023 Pulmonary artery hypertension ASD status post closure with Amplatzer ASD closure device Nonalcoholic cirrhosis GERD/FARSHAD This 62-year-old female with prior history of pulmonary hypertension, secundum ASD status post Amplatzer ASD closure device who presented to the hospital for elective convergent maze procedure, ligation of left atrial appendage with 40 mm atrial cure atrial clip on 04/30/2023. In the past 24 to 48 hours patient developed chest pain along with diffuse ST elevation and ND depression on EKG. Currently being treated for pericarditis. Patient has been somewhat hypotensive but blood pressure overall has been stable with systolics in the 90s. She is currently on colchicine. Would recommend high-dose aspirin. Since she is also on Xarelto would recommend ANTON to confirm appendage closure so Xarelto can be discontinued. She is on tadalafil for pulmonary hypertension which is currently on hold. Once blood pressure stabilizes this can be restarted. Problem List/Past Medical History Ongoing Acute blood loss anemia Anxiety ASD secundum Atrial fibrillation ATRIAL FIBRILLATION WITH RVR Back pain CHEST PAIN, ATYPICAL CHEST WALL PAIN Cirrhosis, non-alcoholic Eczema GERD - Gastro-esophageal reflux disease Hypertension Migraine MTHFR gene mutation FARSHAD (obstructive sleep apnea) Osteoarthritis REFUSED INFLUENZA VACCINE REFUSED PNEUMOCOCCAL VACCINE STEATOHEPATITIS, NONALCOHOLIC SYNCOPE, NEAR Thyroid enlargement Urinary incontinence Historical DEHYDRATION DIARRHEA Procedure/Surgical History Echocardiogram: 02/06/23 Holter monitor: 11/17/22 Cardioversion: 10/09/22 Transesophageal echocardiogram: 09/14/22 Cardioversion: 09/14/22 Cardiac catheterization: 08/29/22 EGD - Esophagogastroduodenoscopy: 2021 Echocardiogram: 08/15/22 Echocardiogram: 08/08/22 Echocardiogram: 08/07/22 Echocardiogram: 08/07/22 Transesophageal echocardiogram: 08/07/22 PFO - Closure of patent foramen ovale: 08/07/22 Transesophageal echocardiogram: 06/15/22 Spirometry: 04/24/22 Cardiac catheterization: 04/13/22 Dilation and curettage: 2016 Hysteroscopy: 2016 Colonoscopy: 2011 Bunionectomy: 2007 Tubal ligation: 1992 Suspension of bladder: 1991 Tonsillectomy: 1963 Medications Inpatient aspirin 81 mg oral delayed release tablet, 81 mg= 1 tab(s), Oral, Daily busPIRone, 5 mg= 1 tab(s), Oral, TID, PRN colchicine 0.6 mg oral tablet, 0.6 mg= 1 tab(s), Oral, BID docusate, 100 mg= 1 cap(s), Oral, TID Dulcolax Laxative, 10 mg= 1 supp, Rectal, Once, PRN magnesium oxide, 400 mg= 1 tab(s), Oral, BID magnesium sulfate for IV bolus, 2 gram(s)= 50 mL, IV Piggyback, AsDirected, PRN mupirocin 2% topical ointment, 1 aleena, Nostril, each, q12h Normal Saline 500 mL 1,000 mL, 1000 mL, Intravenous Normal Saline 500 mL 1,000 mL, 1000 mL, Intravenous oxyCODONE 5 mg oral tablet ( IMMEDIATE release ), 5 mg= 1 tab(s), Oral, q4h, PRN oxyCODONE 5 mg oral tablet ( IMMEDIATE release ), 10 mg= 2 tab(s), Oral, q4h, PRN Pepcid, 20 mg= 1 tab(s), Oral, qDay phenylephrine for IV 50 mg [50 mcg/min] + Dextrose 5%/ Water titrate 250 mL scopolamine (Transderm-Scop Patch REMOVAL), 1 EA, Miscellaneous, q72h Sore Throat Hardaway, 1 spray(s), Topical, q1h, PRN tadalafil, 20 mg= 1 tab(s), Oral, BID Tigan, 200 mg= 2 mL, Intramuscular, q6h, PRN Tikosyn, 500 mcg= 1 cap(s), Oral, q12h Toradol, 15 mg= 1 mL, IV Push, q6hr Transderm-Scop 1 mg/72 hr transdermal film, extended release, 1 patch(es), Transdermal, q72h Tylenol, 650 mg= 2 tab(s), Oral, q4h, PRN Xarelto, 20 mg= 1 tab(s), Oral, qDay Zofran, 4 mg= 2 mL, IV Push, q4h, PRN Home aspirin 81 mg oral delayed release tablet, 81 mg= 1 tab(s), Oral, Daily, 6 refills bumetanide 1 mg oral tablet, 1 mg= 1 tab(s), Oral, Daily, PRN, 2 refills busPIRone 5 mg oral tablet, 5 mg= 1 tab(s), Oral, TID, PRN cyanocobalamin 1000 mcg oral tablet, 1000 mcg= 1 tab(s), Oral, qDay Klor-Con M20 oral tablet, extended release, 20 mEq= 1 tab(s), Oral, qDay, 3 refills magnesium oxide 250 mg oral tablet, 500 mg= 2 tab(s), Oral, BID metoprolol succinate 25 mg oral TABLET extended release, See Instructions Tadalafil (Eqv-Cialis) 20 mg oral tablet, 20 mg= 1 tab(s), Oral, BID, 2 refills Tikosyn 250 mcg oral capsule, 500 mcg= 2 cap(s), Oral, BID Tylenol 325 mg oral capsule, 325 mg= 1 cap(s), Oral, q4h, PRN Vitamin D3 1000 intl units oral tablet, 1000 unit(s)= 1 tab(s), Oral, qDay Xarelto 20 mg oral tablet, 20 mg= 1 tab(s), Oral, qDay, 11 refills Allergies Bactrim (Itching, Rash) Cigarette smoke (Watery eye, Nasal drainage) Dilaudid (Nausea and vomiting, Diarrhea, Dizziness) codeine (HALLUCINATIONS) ibuprofen (Itching) iodinated radiocontrast dyes (Racing heartbeat) morphine (Itching) sulfa drugs (Itching, Rash) Social History Smoking Status - 07/22/2016 Never smoker Alcohol Use: Never., 09/20/2019 Employment/School Status: Employed. Activity Level: Occasional physical work., 10/08/2019 Home/Environment Domestic Concerns: None, Denies. Living situation: Home/Independent. Lives In: Single level home, 1st floor bedroom, 1st floor bathroom. Current Home Treatments Blood Pressure monitoring, CPAP machine. Marital Status: ., 04/16/2023 Domestic Concerns: Denies., 08/29/2022 Nutrition/Health Type of diet: Low sodium. Appetite Good. Eating Difficulties None. Caffeine intake amount: no caffeine intake., 07/31/2022 Substance Abuse Use: Never., 10/08/2019 Tobacco Nicotine Use: Never (less than 100 in lifetime)., 09/20/2019 Family History Atrial fibrillation: Mother and Sister. Cancer: Father and Brother. Cardiac pacemaker: Father and Sister. DVT - Deep vein thrombosis: Negative: Daughter. Deep vein thrombosis: Daughter. Heart failure: Father. High blood pressure: Mother. Leukemia: Brother. Malignant tumor of lung: Father. Malignant tumor of ovary: Sister. Pulmonary embolism: Daughter.Negative: Daughter. Stroke: Mother and Sister. Immunizations SARS-CoV-2 mRNA (tozinameran) vaccine: 0.3 unknown unit (10/19/21) SARS-CoV-2 mRNA (tozinameran) vaccine: 0 unknown unit (10/07/21) tetanus/diphth/pertuss (Tdap) adult/adol: 0 unknown unit (06/25/21) Digitally Signed by KE LOPEZ MD on 05/02/2023 04:46 PM [facility] [id number] Cardiology Consult note Date of Service 05/02/2023 Reason for Consultation pHTN Referring Physician General cardiology History of Present Illness This is a 62-year-old female with prior history of pulmonary hypertension, second MAST, A-fib/flutter, liver cirrhosis, hypothyroidism who presented to the hospital for elective Maze procedure/left atrial appendage clip. Patient has has recurrent persistent atrial fibrillation. She was previously on Xarelto dofetilide and metoprolol. She is not a candidate for percutaneous A-fib ablation due to Amplatzer ASD closure device blocking the septal approach. Patient underwent maze procedure and tolerated the procedure well. However she then developed pericarditis. She still has chest tubes in place. Currently being treated with colchicine. Patient seems to be in A-fib/flutter currently with heart rate in 120s. Review of Systems 12 point ROS reviewed and negative unless stated above. Physical Exam Vitals and Measurements T: 36.5 C (Oral) TMIN: 36.5 C (Oral) TMAX: 37.5 C (Oral) HR: 121(Monitored) RR: 16 BP: 98/62 SpO2: 93% WT: 79.8 kg Weight Current Weight Dosing Weight: 78.9 kg (08/08/23) Current Weight: 79.8 kg (05/02/23) General Appearance: in no acute distress. Alert. EENT: No thyroid disease. ocular movements intact Cardiac: irregularly irregular. S1 and S2. no murmurs or rubs. Lungs: shallow breath sounds Abdomen: soft. non tender. bowel sounds audible Neurological: alert and oriented. Skin: warm. dry Lab Results 05/02 03:58 WBC: 10.2 Hgb: 12.7 Hct: 36.8 Platelet: 147 L Neutrophil %: 72.3 Glucose Level: 108 Sodium Level: 139 Potassium Level: 4.2 BUN: 23.0 H Creatinine Lvl (s): 0.76 EKG EC05/01/23: SINUS RHYTHM ABNORMAL R-WAVE PROGRESSION, EARLY TRANSITION INFERIOR INFARCT, ACUTE (LCX) ST ELEVATION, CONSIDER ANTEROLATERAL INJURY Electronic Signature: GIOVANNA FELICIANO MD 05/02/2023 08:15:04 Assessment/Plan Acute blood loss anemia Acute pericarditis ASD (atrial septal defect) Atrial fibrillation s/p Convergent Maze, RICHARD Clip, 04/30/2023 GERD - Gastro-esophageal reflux disease Heart failure Hypertension FARSHAD (obstructive sleep apnea) Pulmonary HTN STEATOHEPATITIS, NONALCOHOLIC Acute pericarditis Recurrent persistent A-fib/flutter status post convergent maze, left atrial appendage clip 04/30/2023 Pulmonary artery hypertension ASD status post closure with Amplatzer ASD closure device Nonalcoholic cirrhosis GERD/FARSHAD This 62-year-old female with prior history of pulmonary hypertension, secundum ASD status post Amplatzer ASD closure device who presented to the hospital for elective convergent maze procedure, ligation of left atrial appendage with 40 mm atrial cure atrial clip on 04/30/2023. In the past 24 to 48 hours patient developed chest pain along with diffuse ST elevation and ND depression on EKG. Currently being treated for pericarditis. Patient has been somewhat hypotensive but blood pressure overall has been stable with systolics in the 90s. She is currently on colchicine. Would recommend high-dose aspirin. Since she is also on Xarelto would recommend ANTON to confirm appendage closure so Xarelto can be discontinued. She is on tadalafil for pulmonary hypertension which is currently on hold. Once blood pressure stabilizes this can be restarted. Problem List/Past Medical History Ongoing Acute blood loss anemia Anxiety ASD secundum Atrial fibrillation ATRIAL FIBRILLATION WITH RVR Back pain CHEST PAIN, ATYPICAL CHEST WALL PAIN Cirrhosis, non-alcoholic Eczema GERD - Gastro-esophageal reflux disease Hypertension Migraine MTHFR gene mutation FARSHAD (obstructive sleep apnea) Osteoarthritis REFUSED INFLUENZA VACCINE REFUSED PNEUMOCOCCAL VACCINE STEATOHEPATITIS, NONALCOHOLIC SYNCOPE, NEAR Thyroid enlargement Urinary incontinence Historical DEHYDRATION DIARRHEA Procedure/Surgical History Echocardiogram: 02/06/23 Holter monitor: 11/17/22 Cardioversion: 10/09/22 Transesophageal echocardiogram: 09/14/22 Cardioversion: 09/14/22 Cardiac catheterization: 08/29/22 EGD - Esophagogastroduodenoscopy: 2021 Echocardiogram: 08/15/22 Echocardiogram: 08/08/22 Echocardiogram: 08/07/22 Echocardiogram: 08/07/22 Transesophageal echocardiogram: 08/07/22 PFO - Closure of patent foramen ovale: 08/07/22 Transesophageal echocardiogram: 06/15/22 Spirometry: 04/24/22 Cardiac catheterization: 04/13/22 Dilation and curettage: 2015 Hysteroscopy: 2015 Colonoscopy: 2011 Bunionectomy: 2007 Tubal ligation: 1992 Suspension of bladder: 1991 Tonsillectomy: 1963 Medications Inpatient aspirin 81 mg oral delayed release tablet, 81 mg= 1 tab(s), Oral, Daily busPIRone, 5 mg= 1 tab(s), Oral, TID, PRN colchicine 0.6 mg oral tablet, 0.6 mg= 1 tab(s), Oral, BID docusate, 100 mg= 1 cap(s), Oral, TID Dulcolax Laxative, 10 mg= 1 supp, Rectal, Once, PRN magnesium oxide, 400 mg= 1 tab(s), Oral, BID magnesium sulfate for IV bolus, 2 gram(s)= 50 mL, IV Piggyback, AsDirected, PRN mupirocin 2% topical ointment, 1 aleena, Nostril, each, q12h Normal Saline 500 mL 1,000 mL, 1000 mL, Intravenous Normal Saline 500 mL 1,000 mL, 1000 mL, Intravenous oxyCODONE 5 mg oral tablet ( IMMEDIATE release ), 5 mg= 1 tab(s), Oral, q4h, PRN oxyCODONE 5 mg oral tablet ( IMMEDIATE release ), 10 mg= 2 tab(s), Oral, q4h, PRN Pepcid, 20 mg= 1 tab(s), Oral, qDay phenylephrine for IV 50 mg [50 mcg/min] + Dextrose 5%/ Water titrate 250 mL scopolamine (Transderm-Scop Patch REMOVAL), 1 EA, Miscellaneous, q72h Sore Throat Hardaway, 1 spray(s), Topical, q1h, PRN tadalafil, 20 mg= 1 tab(s), Oral, BID Tigan, 200 mg= 2 mL, Intramuscular, q6h, PRN Tikosyn, 500 mcg= 1 cap(s), Oral, q12h Toradol, 15 mg= 1 mL, IV Push, q6hr Transderm-Scop 1 mg/72 hr transdermal film, extended release, 1 patch(es), Transdermal, q72h Tylenol, 650 mg= 2 tab(s), Oral, q4h, PRN Xarelto, 20 mg= 1 tab(s), Oral, qDay Zofran, 4 mg= 2 mL, IV Push, q4h, PRN Home aspirin 81 mg oral delayed release tablet, 81 mg= 1 tab(s), Oral, Daily, 6 refills bumetanide 1 mg oral tablet, 1 mg= 1 tab(s), Oral, Daily, PRN, 2 refills busPIRone 5 mg oral tablet, 5 mg= 1 tab(s), Oral, TID, PRN cyanocobalamin 1000 mcg oral tablet, 1000 mcg= 1 tab(s), Oral, qDay Klor-Con M20 oral tablet, extended release, 20 mEq= 1 tab(s), Oral, qDay, 3 refills magnesium oxide 250 mg oral tablet, 500 mg= 2 tab(s), Oral, BID metoprolol succinate 25 mg oral TABLET extended release, See Instructions Tadalafil (Eqv-Cialis) 20 mg oral tablet, 20 mg= 1 tab(s), Oral, BID, 2 refills Tikosyn 250 mcg oral capsule, 500 mcg= 2 cap(s), Oral, BID Tylenol 325 mg oral capsule, 325 mg= 1 cap(s), Oral, q4h, PRN Vitamin D3 1000 intl units oral tablet, 1000 unit(s)= 1 tab(s), Oral, qDay Xarelto 20 mg oral tablet, 20 mg= 1 tab(s), Oral, qDay, 11 refills Allergies Bactrim (Itching, Rash) Cigarette smoke (Watery eye, Nasal drainage) Dilaudid (Nausea and vomiting, Diarrhea, Dizziness) codeine (HALLUCINATIONS) ibuprofen (Itching) iodinated radiocontrast dyes (Racing heartbeat) morphine (Itching) sulfa drugs (Itching, Rash) Social History Smoking Status - 07/22/2016 Never smoker Alcohol Use: Never., 09/20/2019 Employment/School Status: Employed. Activity Level: Occasional physical work., 10/08/2019 Home/Environment Domestic Concerns: None, Denies. Living situation: Home/Independent. Lives In: Single level home, 1st floor bedroom, 1st floor bathroom. Current Home Treatments Blood Pressure monitoring, CPAP machine. Marital Status: ., 04/16/2023 Domestic Concerns: Denies., 08/29/2022 Nutrition/Health Type of diet: Low sodium. Appetite Good. Eating Difficulties None. Caffeine intake amount: no caffeine intake., 07/31/2022 Substance Abuse Use: Never., 10/08/2019 Tobacco Nicotine Use: Never (less than 100 in lifetime)., 09/20/2019 Family History Atrial fibrillation: Mother and Sister. Cancer: Father and Brother. Cardiac pacemaker: Father and Sister. DVT - Deep vein thrombosis: Negative: Daughter. Deep vein thrombosis: Daughter. Heart failure: Father. High blood pressure: Mother. Leukemia: Brother. Malignant tumor of lung: Father. Malignant tumor of ovary: Sister. Pulmonary embolism: Daughter.Negative: Daughter. Stroke: Mother and Sister. Immunizations SARS-CoV-2 mRNA (tozinameran) vaccine: 0.3 unknown unit (10/19/21) SARS-CoV-2 mRNA (tozinameran) vaccine: 0 unknown unit (10/07/21) tetanus/diphth/pertuss (Tdap) adult/adol: 0 unknown unit (06/25/21) Digitally Signed by KE LOPEZ MD on 05/02/2023 04:46 PM [facility] [id number] Anesthesiology Consult note Patient: DORCAS ANGULO Age: 62 years Sex: Female : 1960 Associated Diagnoses: None Author: QUINCY CARIAS DO Assessment Postanesthesia assessment Vitals: Vital signs from flowsheet : Vital Signs 05/02/2023 12:17 EDT Heart Rate Monitored 118 bpm HI Reason For Taking VItal Signs Routine 05/02/2023 11:17 EDT Temperature Oral 36.5 DegC Heart Rate Monitored 113 bpm HI Respiratory Rate 16 br/min Systolic Blood Pressure Non-Invasive 100 mmHg Diastolic Blood Pressure Non-Invasive 58 mmHg LOW Blood Pressure Method Manual Blood Pressure Location Right arm Blood Pressure Cuff Size Medium Reason For Taking VItal Signs Routine 05/02/2023 9:20 EDT Heart Rate Monitored 105 bpm HI Systolic Blood Pressure Non-Invasive 104 mmHg Diastolic Blood Pressure Non-Invasive 58 mmHg LOW Reason For Taking VItal Signs Routine 05/02/2023 8:16 EDT Temperature Oral 37.0 DegC Heart Rate Monitored 112 bpm HI Systolic Blood Pressure Non-Invasive 100 mmHg Diastolic Blood Pressure Non-Invasive 60 mmHg Mean Arterial Pressure (NBP) 73 mmHg Reason For Taking VItal Signs Routine 05/02/2023 3:22 EDT Heart Rate Monitored 107 bpm HI Systolic Blood Pressure Non-Invasive 82 mmHg LOW Diastolic Blood Pressure Non-Invasive 60 mmHg Blood Pressure Method Manual Blood Pressure Location Right arm Blood Pressure Cuff Size Medium Reason For Taking VItal Signs Routine 05/02/2023 3:17 EDT Temperature Oral 37.0 DegC Heart Rate Monitored 112 bpm HI Respiratory Rate 18 br/min Systolic Blood Pressure Non-Invasive 78 mmHg LOW Diastolic Blood Pressure Non-Invasive 59 mmHg LOW Mean Arterial Pressure (NBP) 66 mmHg Reason For Taking VItal Signs Routine 05/02/2023 1:25 EDT Temperature Oral 37.5 DegC HI 05/01/2023 23:16 EDT Temperature Oral 37.4 DegC HI Heart Rate Monitored 102 bpm HI Respiratory Rate 16 br/min Systolic Blood Pressure Non-Invasive 95 mmHg Diastolic Blood Pressure Non-Invasive 57 mmHg LOW Mean Arterial Pressure (NBP) 70 mmHg Reason For Taking VItal Signs Routine 05/01/2023 19:59 EDT Heart Rate Monitored 107 bpm HI Respiratory Rate 15 br/min Systolic Blood Pressure Non-Invasive 82 mmHg LOW Diastolic Blood Pressure Non-Invasive 56 mmHg LOW Mean Arterial Pressure (NBP) 65 mmHg Reason For Taking VItal Signs Routine 05/01/2023 19:43 EDT Temperature Oral 37.2 DegC Heart Rate Monitored 119 bpm HI Systolic Blood Pressure Non-Invasive 79 mmHg LOW Diastolic Blood Pressure Non-Invasive 50 mmHg Mean Arterial Pressure (NBP) 61 mmHg Reason For Taking VItal Signs Routine 05/01/2023 18:54 EDT Heart Rate Monitored 97 bpm Systolic Blood Pressure Non-Invasive 89 mmHg LOW Diastolic Blood Pressure Non-Invasive 49 mmHg Mean Arterial Pressure (NBP) 61 mmHg 05/01/2023 18:48 EDT Apical Heart Rate 122 bpm >HHI 05/01/2023 17:12 EDT Apical Heart Rate 120 bpm HI Systolic Blood Pressure Non-Invasive 100 mmHg Diastolic Blood Pressure Non-Invasive 57 mmHg LOW Mean Arterial Pressure (NBP) 69 mmHg 05/01/2023 15:17 EDT Systolic Blood Pressure Non-Invasive 94 mmHg Diastolic Blood Pressure Non-Invasive 44 mmHg Mean Arterial Pressure (NBP) 59 mmHg Blood Pressure Method Automatic Blood Pressure Location Left arm Blood Pressure Cuff Size Medium 05/01/2023 15:16 EDT Temperature Oral 37.2 DegC Heart Rate Monitored 73 bpm Respiratory Rate 16 br/min Systolic Blood Pressure Non-Invasive 84 mmHg LOW Diastolic Blood Pressure Non-Invasive 40 mmHg Mean Arterial Pressure (NBP) 53 mmHg Blood Pressure Method Automatic Blood Pressure Location Right arm Blood Pressure Cuff Size Medium Reason For Taking VItal Signs Routine 05/01/2023 12:30 EDT Reason For Taking VItal Signs Routine 05/01/2023 12:21 EDT Systolic Blood Pressure Non-Invasive 89 mmHg LOW Diastolic Blood Pressure Non-Invasive 54 mmHg LOW Mean Arterial Pressure (NBP) 65 mmHg Reason For Taking VItal Signs Routine 05/01/2023 12:10 EDT Temperature Oral 36.5 DegC Systolic Blood Pressure Non-Invasive 87 mmHg LOW Diastolic Blood Pressure Non-Invasive 34 mmHg Mean Arterial Pressure (NBP) 50 mmHg Reason For Taking VItal Signs Routine 05/01/2023 11:00 EDT Temperature Oral 36.6 DegC Heart Rate Monitored 81 bpm Respiratory Rate 16 br/min Systolic Blood Pressure Non-Invasive 104 mmHg Diastolic Blood Pressure Non-Invasive 33 mmHg Mean Arterial Pressure (NBP) 55 mmHg Reason For Taking VItal Signs Routine 05/01/2023 7:46 EDT Systolic Blood Pressure Invasive 94 mmHg Diastolic Blood Pressure Invasive 47 mmHg Mean Arterial Pressure (Line) 64 mmHg 05/01/2023 7:35 EDT Systolic Blood Pressure Invasive 83 mmHg LOW Diastolic Blood Pressure Invasive 44 mmHg Mean Arterial Pressure (Line) 58 mmHg 05/01/2023 7:15 EDT Temperature Oral 36.8 DegC Heart Rate Monitored 78 bpm Systolic Blood Pressure Invasive 90 mmHg Diastolic Blood Pressure Invasive 47 mmHg Mean Arterial Pressure (Line) 63 mmHg Reason For Taking VItal Signs Routine 05/01/2023 5:15 EDT Heart Rate Monitored 73 bpm Respiratory Rate 16 br/min Systolic Blood Pressure Invasive 89 mmHg LOW Diastolic Blood Pressure Invasive 49 mmHg Mean Arterial Pressure (Line) 63 mmHg Reason For Taking VItal Signs Routine 05/01/2023 5:05 EDT Systolic Blood Pressure Non-Invasive 91 mmHg Diastolic Blood Pressure Non-Invasive 48 mmHg Mean Arterial Pressure (NBP) 61 mmHg Systolic Blood Pressure Invasive 86 mmHg LOW Diastolic Blood Pressure Invasive 49 mmHg Mean Arterial Pressure (Line) 63 mmHg 05/01/2023 3:15 EDT Temperature Oral 36.7 DegC Heart Rate Monitored 71 bpm Respiratory Rate 16 br/min Systolic Blood Pressure Invasive 92 mmHg Diastolic Blood Pressure Invasive 46 mmHg Mean Arterial Pressure (Line) 63 mmHg Reason For Taking VItal Signs Routine 05/01/2023 2:00 EDT Heart Rate Monitored 77 bpm Systolic Blood Pressure Non-Invasive 87 mmHg LOW Diastolic Blood Pressure Non-Invasive 55 mmHg LOW Mean Arterial Pressure (NBP) 66 mmHg Systolic Blood Pressure Invasive 92 mmHg Diastolic Blood Pressure Invasive 49 mmHg Mean Arterial Pressure (Line) 64 mmHg Reason For Taking VItal Signs Routine 05/01/2023 1:01 EDT Heart Rate Monitored 83 bpm Systolic Blood Pressure Invasive 120 mmHg Diastolic Blood Pressure Invasive 58 mmHg LOW Mean Arterial Pressure (Line) 78 mmHg Reason For Taking VItal Signs Routine . Mental status: at preoperative baseline, alert & oriented x 4. Respiratory function: lungs are clear to auscultation, respirations are non- labored, breath sounds are equal. Respiratory support: oxygen 93% RA. CV function: Normal rate, Regular rhythm, No murmur. Cardiovascular support: none. Pain: Post op control No intervention needed. Nausea status: denies nausea. Postoperative hydration status: within normal limits. Notes: Awake alert no recall voice intact . Digitally Signed by QUINCY CARIAS DO on 05/02/2023 02:03 PM [facility] [id number] NoteATRIAL FIBRILLATION LOW VOLTAGE, PRECORDIAL LEADS BORDERLINE T ABNORMALITIES, INFERIOR LEADS BORDERLINE ST ELEVATION, LATERAL LEADS PROLONGED QT INTERVAL Electronic Signature: GIOVANNA FELICIANO MD 05/03/2023 13:30:58[facility] 08-10-2023 NoteATRIAL FIBRILLATION ABNORMAL R-WAVE PROGRESSION, EARLY TRANSITION BORDERLINE T ABNORMALITIES, INFERIOR LEADS ST ELEVATION, CONSIDER LATERAL INJURY Electronic Signature: GIOVANNA FELICIANO MD 05/03/2023 13:30:50[facility] 08-10-2023 Cardiology Consult note Date of Service 05/01/2023 Reason for Consultation Abnormal ECG Referring Physician Dr Ford Review of Systems Apart from mentioned in HPI, pertinent review of systems is otherwise negative. Physical Exam Vitals and Measurements T: 37.1 C (Oral) TMIN: 32.83 C TMAX: 37.1 C (Oral) HR: 92(Monitored) RR: 17 BP: 110/58 BP: 128/59(Line) SpO2: 94% HT: 165 cm WT: 78.9 kg Weight Dosing Weight: 78.9 kg (04/30/23) General Appearance: Comfortable, not in acute distress Cardiac: S1, S2, no murmurs, prominent triphasic friction rub, regular rhythm, normal rate, no lower extremity edema, no crackles, no JVP distention, warm extremities. pericardial and peural drains in place. Lungs: No wheezes, normal chest expansion. Abdomen: No tenderness, no distention, normal bowel sounds. Musculoskeletal: No signs of acute synovitis. Neurological: Alert and oriented x3, no focal neurological deficits grossly. Psychiatric: Appropriate, normal mood. Lab Results 04/30 14:42 Hgb: 14.7 Hct: 43.0 Glucose Level: 123 H 04/30 06:13 Platelet: 168 Protime: 11.8 PT International Ratio: 1.0 Glucose Level: 101 Sodium Level: 143 Potassium Level: 4.0 BUN: 16.0 Creatinine Lvl (s): 0.79 Assessment/Plan ASD (atrial septal defect) Atrial fibrillation s/p Convergent Maze, RICHARD Clip, 04/30/2023 GERD - Gastro-esophageal reflux disease Heart failure Hypertension FARSHAD (obstructive sleep apnea) Pulmonary HTN STEATOHEPATITIS, NONALCOHOLIC Orders: colchicine, Start: 05/01/23 0:57:00 EDT, Dose = 0.6 mg, = 1 tab(s), Oral, BID, 05/01/23 0:57:00 EDT CRP, High Sensitive Electrocardiogram Sedimentation Rate Automated Troponin I High Sensitivity Acute pericarditis Atrial fibrillation s/p convergent maze RICHARD clip 04/30/2023 S/p interatrial septal closure device Chronic heart failure, pulm hypertension 62-year-old woman who underwent convergent maze epicardial ablation RICHARD clip with Dr. Ford 04/25/2023. We are consulted urgently overnight for abnormal EKG. Patient endorses severe pleuritic chest pain worsens with deep breathing or coughing, as well as left shoulder pain she has holding back on. On exam she is euvolemic, bedside TTE showed very small posterior pericardial effusion, preserved LVEF. ECG review shows widespread ST elevation with ND depression, ND elevation and ST depression in aVR, as well as downsloping TP segment. On exam she has triphasic pericardial friction rub. Chronic angiogram 08/2022 without significant CAD. Plan: ESR, CRP, troponin trend Toradol and colchicine Consult we will continue to follow Discussed with Dr. Sierra over the phone, discussed impression with Dr. Ford Discussed and examined with Dr. Kemi Hernandez MD [employer] or Pager [phone] Problem List/Past Medical History Ongoing Acute blood loss anemia Anxiety ASD secundum Atrial fibrillation ATRIAL FIBRILLATION WITH RVR Back pain CHEST PAIN, ATYPICAL CHEST WALL PAIN Cirrhosis, non-alcoholic Eczema GERD - Gastro-esophageal reflux disease Hypertension Migraine MTHFR gene mutation FARSHAD (obstructive sleep apnea) Osteoarthritis REFUSED INFLUENZA VACCINE REFUSED PNEUMOCOCCAL VACCINE STEATOHEPATITIS, NONALCOHOLIC SYNCOPE, NEAR Thyroid enlargement Urinary incontinence Historical DEHYDRATION DIARRHEA Procedure/Surgical History Echocardiogram: 02/06/23 Holter monitor: 11/17/22 Cardioversion: 10/09/22 Transesophageal echocardiogram: 09/14/22 Cardioversion: 09/14/22 Cardiac catheterization: 08/29/22 EGD - Esophagogastroduodenoscopy: 2021 Echocardiogram: 08/15/22 Echocardiogram: 08/08/22 Echocardiogram: 08/07/22 Echocardiogram: 08/07/22 Transesophageal echocardiogram: 08/07/22 PFO - Closure of patent foramen ovale: 08/07/22 Transesophageal echocardiogram: 06/15/22 Spirometry: 04/24/22 Cardiac catheterization: 04/13/22 Dilation and curettage: 2015 Hysteroscopy: 2015 Colonoscopy: 2011 Bunionectomy: 2007 Tubal ligation: 1992 Suspension of bladder: 1991 Tonsillectomy: 1964 Medications Inpatient aspirin 81 mg oral delayed release tablet, 81 mg= 1 tab(s), Oral, Daily Bolus NS 500 mL, 500 mL, IV Bolus, AsDirected, PRN busPIRone, 5 mg= 1 tab(s), Oral, TID, PRN ceFAZolin, 2 gram(s)= 20 mL, IV Push (INT), q8hr colchicine 0.6 mg oral tablet, 0.6 mg= 1 tab(s), Oral, qDay colchicine 0.6 mg oral tablet, 0.6 mg= 1 tab(s), Oral, BID D51/2NS 1,000 mL, 1000 mL, Intravenous fentaNYL, 25 mcg= 0.5 mL, IV Push, q2h, PRN magnesium oxide, 400 mg= 1 tab(s), Oral, BID magnesium sulfate for IV bolus, 2 gram(s)= 50 mL, IV Piggyback, AsDirected, PRN mupirocin 2% topical ointment, 1 aleena, Nostril, each, q12h nitroprusside for IV 50 mg [0.2 mcg/kg/min] + NS PMX titrate 100 mL NS 500 mL, 500 mL, Intravenous oxyCODONE 5 mg oral tablet ( IMMEDIATE release ), 5 mg= 1 tab(s), Oral, q4h, PRN oxyCODONE 5 mg oral tablet ( IMMEDIATE release ), 10 mg= 2 tab(s), Oral, q6hr, PRN phenylephrine for IV 50 mg [50 mcg/min] + Dextrose 5%/ Water titrate 250 mL Protonix, 40 mg, IV Push, qDayAC scopolamine (Transderm-Scop Patch REMOVAL), 1 EA, Miscellaneous, q72h tadalafil, 20 mg= 1 tab(s), Oral, BID Tigan, 200 mg= 2 mL, Intramuscular, q6h, PRN Tikosyn, 500 mcg= 1 cap(s), Oral, q12h Transderm-Scop 1 mg/72 hr transdermal film, extended release, 1 patch(es), Transdermal, q72h Xarelto, 20 mg= 1 tab(s), Oral, qDay Home aspirin 81 mg oral delayed release tablet, 81 mg= 1 tab(s), Oral, Daily, 6 refills bumetanide 1 mg oral tablet, 1 mg= 1 tab(s), Oral, Daily, PRN, 2 refills busPIRone 5 mg oral tablet, 5 mg= 1 tab(s), Oral, TID, PRN cyanocobalamin 1000 mcg oral tablet, 1000 mcg= 1 tab(s), Oral, qDay Klor-Con M20 oral tablet, extended release, 20 mEq= 1 tab(s), Oral, qDay, 3 refills magnesium oxide 250 mg oral tablet, 500 mg= 2 tab(s), Oral, BID metoprolol succinate 25 mg oral TABLET extended release, See Instructions Tadalafil (Eqv-Cialis) 20 mg oral tablet, 20 mg= 1 tab(s), Oral, BID, 2 refills Tikosyn 250 mcg oral capsule, 500 mcg= 2 cap(s), Oral, BID Tylenol 325 mg oral capsule, 325 mg= 1 cap(s), Oral, q4h, PRN Vitamin D3 1000 intl units oral tablet, 1000 unit(s)= 1 tab(s), Oral, qDay Xarelto 20 mg oral tablet, 20 mg= 1 tab(s), Oral, qDay, 11 refills Allergies Bactrim (Itching, Rash) Cigarette smoke (Watery eye, Nasal drainage) Dilaudid (Nausea and vomiting, Diarrhea, Dizziness) codeine (HALLUCINATIONS) ibuprofen (Itching) iodinated radiocontrast dyes (Racing heartbeat) morphine (Itching) sulfa drugs (Itching, Rash) Social History Smoking Status - 07/22/2016 Never smoker Alcohol Use: Never., 09/20/2019 Employment/School Status: Employed. Activity Level: Occasional physical work., 10/08/2019 Home/Environment Domestic Concerns: None, Denies. Living situation: Home/Independent. Lives In: Single level home, 1st floor bedroom, 1st floor bathroom. Current Home Treatments Blood Pressure monitoring, CPAP machine. Marital Status: ., 04/16/2023 Domestic Concerns: Denies., 08/29/2022 Nutrition/Health Type of diet: Low sodium. Appetite Good. Eating Difficulties None. Caffeine intake amount: no caffeine intake., 07/31/2022 Substance Abuse Use: Never., 10/08/2019 Tobacco Nicotine Use: Never (less than 100 in lifetime)., 09/20/2019 Family History Atrial fibrillation: Mother and Sister. Cancer: Father and Brother. Cardiac pacemaker: Father and Sister. DVT - Deep vein thrombosis: Negative: Daughter. Deep vein thrombosis: Daughter. Heart failure: Father. High blood pressure: Mother. Leukemia: Brother. Malignant tumor of lung: Father. Malignant tumor of ovary: Sister. Pulmonary embolism: Daughter.Negative: Daughter. Stroke: Mother and Sister. Immunizations SARS-CoV-2 mRNA (tozinameran) vaccine: 0.3 unknown unit (10/19/21) SARS-CoV-2 mRNA (tozinameran) vaccine: 0 unknown unit (10/07/21) tetanus/diphth/pertuss (Tdap) adult/adol: 0 unknown unit (06/25/21) Digitally Signed by MAYO HERNANDEZ MD on 05/01/2023 01:11 AM Digitally Signed by MAYO HERNANDEZ MD on 05/01/2023 09:26 AM [id number] Note ORIGINAL EXAMINATION: TWO XRAY VIEWS OF THE CHEST05/02/2023 5:53 am COMPARISON: 05/01/2023 HISTORY: ORDERING SYSTEM PROVIDED HISTORY: Reason for Exam: pleural effusion FINDINGS: Mediastinal/chest projects over the lower/central thorax, similar to the prior exam. The cardiomediastinal silhouette and left atrial appendage clip are stable. No florid central vascular congestion. Redemonstration of patchy bibasilar send airspace opacities without significant change. Trace bilateral pleural effusions. No pneumothorax. IMPRESSION: Similar patchy bibasilar airspace opacities. Trace bilateral pleural effusions. Preliminary Report was Dictated by a Resident Interpreted by: Lilliam Burnham MD Preliminary Report By: Jamar Escalera Electronically signed By Lilliam Burnham MD Dictated Date: 05/02/2023 5:58:53 AM Prelim Date: 05/02/2023 6:03:29 AM Sign Date: 05/02/2023 7:43:23 AM Ordering Provider: [facility]08-09-2023 Note ORIGINAL EXAMINATION: ONE XRAY VIEW OF THE CHEST05/01/2023 2:12 pm COMPARISON: 05/01/2023 HISTORY: ORDERING SYSTEM PROVIDED HISTORY: Reason for Exam: s/p chest tube removal FINDINGS: The cardiomediastinal contours are normal. Left atrial appendage clip noted. Accentuated vascular markings seen. Lung volumes are low with patchy bibasilar atelectasis/airspace disease. Interval removal of the left chest tube noted. There is no appreciable left pneumothorax. Additional chest/mediastinal tube projects over the midline lower thorax. No aggressive osseous lesions identified. IMPRESSION: Interval removal of the left-sided chest tube. No visible pneumothorax Patchy bibasilar atelectasis Interpreted by: Jef Gould MD Preliminary Report By: Jef Gould MD Electronically signed By Jef Gould MD Dictated Date: 05/01/2023 2:15:02 PM Prelim Date: 05/01/2023 2:15:58 PM Sign Date: 05/01/2023 2:15:58 PM Ordering Provider: [facility]08-09-2023 Note ORIGINAL EXAMINATION: ONE XRAY VIEW OF THE CHEST05/01/2023 6:21 am COMPARISON: Chest x-ray April 30 2023, May 01, 2023 May 02, 2023. CT angio April 2022. HISTORY: ORDERING SYSTEM PROVIDED HISTORY: Reason for Exam: Abnormal Breath Sounds FINDINGS: Heart and mediastinum: Cardiomediastinal silhouette is stable in size and configuration. Left atrial appendage clip noted. Lungs and pleura: Low lung volumes with patchy bibasilar atelectasis/airspace disease. Possible underlying small left-sided pleural effusion. Accentuated vascular and interstitial markings. No visible pneumothorax. Bones: No acute bony abnormality. Chronic degenerative changes of the spine noted. Lines: ECMO device overlies the left hemithorax. Heart monitor wires and stickers. IMPRESSION: Unchanged bibasilar atelectasis/airspace disease with accentuated vascular and interstitial markings likely related to a pulmonary edema. I have personally reviewed the images of this examination and agree with the resident's findings and interpretation. Interpreted by: Leeroy Baldwin MD Preliminary Report By: Remy Holcomb Electronically signed By Leeroy Baldwin MD Dictated Date: 05/02/2023 11:25:42 AM Prelim Date: 05/02/2023 12:08:47 PM Sign Date: 05/02/2023 12:08:47 PM Ordering Provider: [facility]08-09-2023 Cardiology Consult note Date of Service 05/01/2023 Reason for Consultation Abnormal ECG Referring Physician Dr Ford Review of Systems Apart from mentioned in HPI, pertinent review of systems is otherwise negative. Physical Exam Vitals and Measurements T: 37.1 C (Oral) TMIN: 32.83 C TMAX: 37.1 C (Oral) HR: 92(Monitored) RR: 17 BP: 110/58 BP: 128/59(Line) SpO2: 94% HT: 165 cm WT: 78.9 kg Weight Dosing Weight: 78.9 kg (04/30/23) General Appearance: Comfortable, not in acute distress Cardiac: S1, S2, no murmurs, prominent triphasic friction rub, regular rhythm, normal rate, no lower extremity edema, no crackles, no JVP distention, warm extremities. pericardial and peural drains in place. Lungs: No wheezes, normal chest expansion. Abdomen: No tenderness, no distention, normal bowel sounds. Musculoskeletal: No signs of acute synovitis. Neurological: Alert and oriented x3, no focal neurological deficits grossly. Psychiatric: Appropriate, normal mood. Lab Results 04/30 14:42 Hgb: 14.7 Hct: 43.0 Glucose Level: 123 H 04/30 06:13 Platelet: 168 Protime: 11.8 PT International Ratio: 1.0 Glucose Level: 101 Sodium Level: 143 Potassium Level: 4.0 BUN: 16.0 Creatinine Lvl (s): 0.79 Assessment/Plan ASD (atrial septal defect) Atrial fibrillation s/p Convergent Maze, RICHARD Clip, 04/30/2023 GERD - Gastro-esophageal reflux disease Heart failure Hypertension FARSHAD (obstructive sleep apnea) Pulmonary HTN STEATOHEPATITIS, NONALCOHOLIC Orders: colchicine, Start: 05/01/23 0:57:00 EDT, Dose = 0.6 mg, = 1 tab(s), Oral, BID, 05/01/23 0:57:00 EDT CRP, High Sensitive Electrocardiogram Sedimentation Rate Automated Troponin I High Sensitivity Acute pericarditis Atrial fibrillation s/p convergent maze RICHARD clip 04/30/2023 S/p interatrial septal closure device Chronic heart failure, pulm hypertension 62-year-old woman who underwent convergent maze epicardial ablation RICHARD clip with Dr. Ford 04/25/2023. We are consulted urgently overnight for abnormal EKG. Patient endorses severe pleuritic chest pain worsens with deep breathing or coughing, as well as left shoulder pain she has holding back on. On exam she is euvolemic, bedside TTE showed very small posterior pericardial effusion, preserved LVEF. ECG review shows widespread ST elevation with ND depression, ND elevation and ST depression in aVR, as well as downsloping TP segment. On exam she has triphasic pericardial friction rub. Chronic angiogram 08/2022 without significant CAD. Plan: ESR, CRP, troponin trend Toradol and colchicine Consult we will continue to follow Discussed with Dr. Sierra over the phone, discussed impression with Dr. Ford Discussed and examined with Dr. Kemi Hernandez MD [employer] or Pager [phone] Problem List/Past Medical History Ongoing Acute blood loss anemia Anxiety ASD secundum Atrial fibrillation ATRIAL FIBRILLATION WITH RVR Back pain CHEST PAIN, ATYPICAL CHEST WALL PAIN Cirrhosis, non-alcoholic Eczema GERD - Gastro-esophageal reflux disease Hypertension Migraine MTHFR gene mutation FARSHAD (obstructive sleep apnea) Osteoarthritis REFUSED INFLUENZA VACCINE REFUSED PNEUMOCOCCAL VACCINE STEATOHEPATITIS, NONALCOHOLIC SYNCOPE, NEAR Thyroid enlargement Urinary incontinence Historical DEHYDRATION DIARRHEA Procedure/Surgical History Echocardiogram: 02/06/23 Holter monitor: 11/17/22 Cardioversion: 10/09/22 Transesophageal echocardiogram: 09/14/22 Cardioversion: 09/14/22 Cardiac catheterization: 08/29/22 EGD - Esophagogastroduodenoscopy: 2021 Echocardiogram: 08/15/22 Echocardiogram: 08/08/22 Echocardiogram: 08/07/22 Echocardiogram: 08/07/22 Transesophageal echocardiogram: 08/07/22 PFO - Closure of patent foramen ovale: 08/07/22 Transesophageal echocardiogram: 06/15/22 Spirometry: 04/24/22 Cardiac catheterization: 04/13/22 Dilation and curettage: 2015 Hysteroscopy: 2015 Colonoscopy: 2011 Bunionectomy: 2007 Tubal ligation: 1992 Suspension of bladder: 1991 Tonsillectomy: 1963 Medications Inpatient aspirin 81 mg oral delayed release tablet, 81 mg= 1 tab(s), Oral, Daily Bolus NS 500 mL, 500 mL, IV Bolus, AsDirected, PRN busPIRone, 5 mg= 1 tab(s), Oral, TID, PRN ceFAZolin, 2 gram(s)= 20 mL, IV Push (INT), q8hr colchicine 0.6 mg oral tablet, 0.6 mg= 1 tab(s), Oral, qDay colchicine 0.6 mg oral tablet, 0.6 mg= 1 tab(s), Oral, BID D51/2NS 1,000 mL, 1000 mL, Intravenous fentaNYL, 25 mcg= 0.5 mL, IV Push, q2h, PRN magnesium oxide, 400 mg= 1 tab(s), Oral, BID magnesium sulfate for IV bolus, 2 gram(s)= 50 mL, IV Piggyback, AsDirected, PRN mupirocin 2% topical ointment, 1 aleena, Nostril, each, q12h nitroprusside for IV 50 mg [0.2 mcg/kg/min] + NS PMX titrate 100 mL NS 500 mL, 500 mL, Intravenous oxyCODONE 5 mg oral tablet ( IMMEDIATE release ), 5 mg= 1 tab(s), Oral, q4h, PRN oxyCODONE 5 mg oral tablet ( IMMEDIATE release ), 10 mg= 2 tab(s), Oral, q6hr, PRN phenylephrine for IV 50 mg [50 mcg/min] + Dextrose 5%/ Water titrate 250 mL Protonix, 40 mg, IV Push, qDayAC scopolamine (Transderm-Scop Patch REMOVAL), 1 EA, Miscellaneous, q72h tadalafil, 20 mg= 1 tab(s), Oral, BID Tigan, 200 mg= 2 mL, Intramuscular, q6h, PRN Tikosyn, 500 mcg= 1 cap(s), Oral, q12h Transderm-Scop 1 mg/72 hr transdermal film, extended release, 1 patch(es), Transdermal, q72h Xarelto, 20 mg= 1 tab(s), Oral, qDay Home aspirin 81 mg oral delayed release tablet, 81 mg= 1 tab(s), Oral, Daily, 6 refills bumetanide 1 mg oral tablet, 1 mg= 1 tab(s), Oral, Daily, PRN, 2 refills busPIRone 5 mg oral tablet, 5 mg= 1 tab(s), Oral, TID, PRN cyanocobalamin 1000 mcg oral tablet, 1000 mcg= 1 tab(s), Oral, qDay Klor-Con M20 oral tablet, extended release, 20 mEq= 1 tab(s), Oral, qDay, 3 refills magnesium oxide 250 mg oral tablet, 500 mg= 2 tab(s), Oral, BID metoprolol succinate 25 mg oral TABLET extended release, See Instructions Tadalafil (Eqv-Cialis) 20 mg oral tablet, 20 mg= 1 tab(s), Oral, BID, 2 refills Tikosyn 250 mcg oral capsule, 500 mcg= 2 cap(s), Oral, BID Tylenol 325 mg oral capsule, 325 mg= 1 cap(s), Oral, q4h, PRN Vitamin D3 1000 intl units oral tablet, 1000 unit(s)= 1 tab(s), Oral, qDay Xarelto 20 mg oral tablet, 20 mg= 1 tab(s), Oral, qDay, 11 refills Allergies Bactrim (Itching, Rash) Cigarette smoke (Watery eye, Nasal drainage) Dilaudid (Nausea and vomiting, Diarrhea, Dizziness) codeine (HALLUCINATIONS) ibuprofen (Itching) iodinated radiocontrast dyes (Racing heartbeat) morphine (Itching) sulfa drugs (Itching, Rash) Social History Smoking Status - 07/22/2016 Never smoker Alcohol Use: Never., 09/20/2019 Employment/School Status: Employed. Activity Level: Occasional physical work., 10/08/2019 Home/Environment Domestic Concerns: None, Denies. Living situation: Home/Independent. Lives In: Single level home, 1st floor bedroom, 1st floor bathroom. Current Home Treatments Blood Pressure monitoring, CPAP machine. Marital Status: ., 04/16/2023 Domestic Concerns: Denies., 08/29/2022 Nutrition/Health Type of diet: Low sodium. Appetite Good. Eating Difficulties None. Caffeine intake amount: no caffeine intake., 07/31/2022 Substance Abuse Use: Never., 10/08/2019 Tobacco Nicotine Use: Never (less than 100 in lifetime)., 09/20/2019 Family History Atrial fibrillation: Mother and Sister. Cancer: Father and Brother. Cardiac pacemaker: Father and Sister. DVT - Deep vein thrombosis: Negative: Daughter. Deep vein thrombosis: Daughter. Heart failure: Father. High blood pressure: Mother. Leukemia: Brother. Malignant tumor of lung: Father. Malignant tumor of ovary: Sister. Pulmonary embolism: Daughter.Negative: Daughter. Stroke: Mother and Sister. Immunizations SARS-CoV-2 mRNA (tozinameran) vaccine: 0.3 unknown unit (10/19/21) SARS-CoV-2 mRNA (tozinameran) vaccine: 0 unknown unit (10/07/21) tetanus/diphth/pertuss (Tdap) adult/adol: 0 unknown unit (06/25/21) Digitally Signed by MAYO HERNANDEZ MD on 05/01/2023 01:11 AM Digitally Signed by MAYO HERNANDEZ MD on 05/01/2023 09:26 AM [id number] NoteSINUS RHYTHM ACUTE PERICARDITIS Electronic Signature: GEOFFREY DEWEY MD 05/01/2023 17:32:44[facility] 08-08-2023 NoteSINUS RHYTHM ABNORMAL R-WAVE PROGRESSION, EARLY TRANSITION INFERIOR INFARCT, ACUTE (LCX) ST ELEVATION, CONSIDER ANTEROLATERAL INJURY Electronic Signature: GIOVANNA FELICIANO MD 05/02/2023 08:15:04[facility] 08-08-2023 Cardiology Consult note Date of Service April 30, 2023 Shared/Split visit with Dr. Hardy Reason for Consultation AF; S/P Maze Referring Physician Dr. Ford History of Present Illness This is a 62-year-old female with a known history of recurring persistent atrial fibrillation despite being on Tikosyn and Toprol she is continue to have breakthrough episodes. However, the patient underwent ASD closure. And we are unable to move forward with ablative therapies. CT surgery was consulted and patient underwent Maze procedure with left atrial appendage clip completed today. EP has been consulted for further evaluation. We do recommend continuing on Tikosyn and her rate and rhythm control. Avoid other QT prolonging medications such as Tikosyn at this time. Past medical history is significant for 1. Recurring persistent atrial fibrillation 2. ASD closure 3. Hypertension 4. Nonalcoholic cirrhosis 5. Pulmonary hypertension (followed by Dr. Feliciano) 6. Comorbidities also include obstructive sleep apnea and acid reflux. Echocardiogram completed February 04, 2023 demonstrates preserved EF at 57% with ASD Amplatzer closure device. Convergent Maze procedure via subxiphoid approach ligation of the left atrial appendage with 40 mm atrial cure/atrial clip Today, the patient is resting in bed. She notes she is in pain status post her procedure. And our [facility] team is going to be working on pain management with her. On telemetry she is in normal sinus rhythm with occasional PAC. It does appear when she has a PAC she has pain . And this could just be palpitation she is feeling considering the postprocedural inflammation. Overall the patient is doing quite well. Collaboration with DRUPAL PROGRAMMER is on the floor and EP avoid QT prolonging minute medication. Continue on Tikosyn and rate and rhythm control. Review of Systems Pertinent positives per HPI all other systems reviewed and negative. Physical Exam Vitals and Measurements T: 36.3 C (Oral) TMIN: 32.83 C TMAX: 36.3 C (Oral) HR: 100(Monitored) RR: 18 BP: 110/58 BP: 149/71(Line) SpO2: 99% HT: 165 cm WT: 78.9 kg Weight Dosing Weight: 78.9 kg (04/30/23) General - 62 yr old female appearing stated age HEENT - head normocephalic, atraumatic. Pupils equal reactive to light. Nose patent bilaterally. Oropharynx without erythema or exudate. Neck -supple, full range of motion. No carotid bruits noted. Cardiovascular - Regular rate and rhythm. No significant murmurs appreciated. Lungs -shallow breath sounds. Clear to auscultation Abdomen - soft, nontender. Bowel sounds present in all 4 quadrants. Musculoskeletal -full weightbearing. Full range of motion in all extremities. Skin -intact, no lesions or rashes noted. Neurological - cranial nerves grossly intact. Mood and affect appropriate to situation. Peripheral vascular - No pitting edema Lab Results 04/30 06:13 Platelet: 168 Protime: 11.8 PT International Ratio: 1.0 Glucose Level: 101 Sodium Level: 143 Potassium Level: 4.0 BUN: 16.0 Creatinine Lvl (s): 0.79 Assessment/Plan 1. Recurring persistent atrial fibrillation Currently in normal sinus rhythm. Patient is status post Maze procedure with left atrial appendage clip. Continue on Tikosyn therapy. Continue to monitor heart rate and rhythm. Continue to monitor QTc. Avoid QT prolonging medication. 2. ASD closure Noted. Unable to form endocardial ablation 3. Hypertension Blood pressure 149/70 4. Nonalcoholic cirrhosis Noted. Continue to monitor liver enzymes 5. Pulmonary hypertension (followed by Dr. Feliciano) Stable. Continue to follow with Dr[facility]. [facility] Problem List/Past Medical History Ongoing Acute blood loss anemia Anxiety ASD secundum Atrial fibrillation ATRIAL FIBRILLATION WITH RVR Back pain CHEST PAIN, ATYPICAL CHEST WALL PAIN Cirrhosis, non-alcoholic Eczema GERD - Gastro-esophageal reflux disease Hypertension Migraine MTHFR gene mutation FARSHAD (obstructive sleep apnea) Osteoarthritis REFUSED INFLUENZA VACCINE REFUSED PNEUMOCOCCAL VACCINE STEATOHEPATITIS, NONALCOHOLIC SYNCOPE, NEAR Thyroid enlargement Urinary incontinence Historical DEHYDRATION DIARRHEA Procedure/Surgical History Echocardiogram: 02/06/23 Holter monitor: 11/17/22 Cardioversion: 10/09/22 Transesophageal echocardiogram: 09/14/22 Cardioversion: 09/14/22 Cardiac catheterization: 08/29/22 EGD - Esophagogastroduodenoscopy: 2021 Echocardiogram: 08/15/22 Echocardiogram: 08/08/22 Echocardiogram: 08/07/22 Echocardiogram: 08/07/22 Transesophageal echocardiogram: 08/07/22 PFO - Closure of patent foramen ovale: 08/07/22 Transesophageal echocardiogram: 06/15/22 Spirometry: 04/24/22 Cardiac catheterization: 04/13/22 Dilation and curettage: 2015 Hysteroscopy: 2015 Colonoscopy: 2011 Bunionectomy: 2007 Tubal ligation: 1992 Suspension of bladder: 1991 Tonsillectomy: 1964 Medications Inpatient Adrenalin 4 mg + Normal Saline 250 mL aspirin 81 mg oral delayed release tablet, 81 mg= 1 tab(s), Oral, Daily Bolus NS 500 mL, 500 mL, IV Bolus, AsDirected, PRN busPIRone, 5 mg= 1 tab(s), Oral, TID, PRN ceFAZolin, 2 gram(s)= 20 mL, IV Push (INT), q8hr Cefuroxime Inj (Zinacef) colchicine 0.6 mg oral tablet, 0.6 mg= 1 tab(s), Oral, qDay D51/2NS 1,000 mL, 1000 mL, Intravenous fentaNYL, 25 mcg= 0.5 mL, IV Push, q2h, PRN insulin regular 100 unit(s) + Normal Saline 100 mL magnesium oxide, 400 mg= 1 tab(s), Oral, BID magnesium sulfate for IV bolus, 2 gram(s)= 50 mL, IV Piggyback, AsDirected, PRN mupirocin 2% topical ointment, 1 aleena, Nostril, each, q12h nitroprusside for IV 50 mg [0.2 mcg/kg/min] + NS PMX titrate 100 mL norepinephrine 8 mg + Normal Saline 250 mL NS 500 mL, 500 mL, Intravenous oxyCODONE 5 mg oral tablet ( IMMEDIATE release ), 5 mg= 1 tab(s), Oral, q4h, PRN oxyCODONE 5 mg oral tablet ( IMMEDIATE release ), 10 mg= 2 tab(s), Oral, q6hr, PRN Peridex 0.12% oral rinse liquid, 15 mL, Swish & Spit, PREOP pharm phenylephrine for IV 50 mg [50 mcg/min] + Dextrose 5%/ Water titrate 250 mL Protonix, 40 mg, IV Push, qDayAC scopolamine (Transderm-Scop Patch REMOVAL), 1 EA, Miscellaneous, q72h scopolamine (Transderm-Scop Patch REMOVAL), 1 EA, Miscellaneous, Once tadalafil, 20 mg= 1 tab(s), Oral, BID Tigan, 200 mg= 2 mL, Intramuscular, q6h, PRN Tikosyn, 500 mcg= 1 cap(s), Oral, q12h Toprol-XL, 50 mg= 1 tab(s), Oral, Once tranexamic acid 1 gram(s), 1 gram(s)= 100 mL, IV Piggyback tranexamic acid 1 gram(s), 1 gram(s)= 100 mL, IV Piggyback tranexamic acid 1 gram(s), 1 gram(s)= 100 mL, IV Piggyback Transderm-Scop 1 mg/72 hr transdermal film, extended release, 1 patch(es), Transdermal, q72h Xarelto, 20 mg= 1 tab(s), Oral, qDay Home aspirin 81 mg oral delayed release tablet, 81 mg= 1 tab(s), Oral, Daily, 6 refills bumetanide 1 mg oral tablet, 1 mg= 1 tab(s), Oral, Daily, PRN, 2 refills busPIRone 5 mg oral tablet, 5 mg= 1 tab(s), Oral, TID, PRN cyanocobalamin 1000 mcg oral tablet, 1000 mcg= 1 tab(s), Oral, qDay Klor-Con M20 oral tablet, extended release, 20 mEq= 1 tab(s), Oral, qDay, 3 refills magnesium oxide 250 mg oral tablet, 500 mg= 2 tab(s), Oral, BID metoprolol succinate 25 mg oral TABLET extended release, See Instructions Tadalafil (Eqv-Cialis) 20 mg oral tablet, 20 mg= 1 tab(s), Oral, BID, 2 refills Tikosyn 250 mcg oral capsule, 500 mcg= 2 cap(s), Oral, BID Tylenol 325 mg oral capsule, 325 mg= 1 cap(s), Oral, q4h, PRN Vitamin D3 1000 intl units oral tablet, 1000 unit(s)= 1 tab(s), Oral, qDay Xarelto 20 mg oral tablet, 20 mg= 1 tab(s), Oral, qDay, 11 refills Allergies Bactrim (Itching, Rash) Cigarette smoke (Watery eye, Nasal drainage) Dilaudid (Nausea and vomiting, Diarrhea, Dizziness) codeine (HALLUCINATIONS) ibuprofen (Itching) iodinated radiocontrast dyes (Racing heartbeat) morphine (Itching) sulfa drugs (Itching, Rash) Social History Smoking Status - 07/22/2016 Never smoker Alcohol Use: Never., 09/20/2019 Employment/School Status: Employed. Activity Level: Occasional physical work., 10/08/2019 Home/Environment Domestic Concerns: None, Denies. Living situation: Home/Independent. Lives In: Single level home, 1st floor bedroom, 1st floor bathroom. Current Home Treatments Blood Pressure monitoring, CPAP machine. Marital Status: ., 04/16/2023 Domestic Concerns: Denies., 08/29/2022 Nutrition/Health Type of diet: Low sodium. Appetite Good. Eating Difficulties None. Caffeine intake amount: no caffeine intake., 07/31/2022 Substance Abuse Use: Never., 10/08/2019 Tobacco Nicotine Use: Never (less than 100 in lifetime)., 09/20/2019 Family History Atrial fibrillation: Mother and Sister. Cancer: Father and Brother. Cardiac pacemaker: Father and Sister. DVT - Deep vein thrombosis: Negative: Daughter. Deep vein thrombosis: Daughter. Heart failure: Father. High blood pressure: Mother. Leukemia: Brother. Malignant tumor of lung: Father. Malignant tumor of ovary: Sister. Pulmonary embolism: Daughter.Negative: Daughter. Stroke: Mother and Sister. Immunizations SARS-CoV-2 mRNA (tozinameran) vaccine: 0.3 unknown unit (10/19/21) SARS-CoV-2 mRNA (tozinameran) vaccine: 0 unknown unit (10/07/21) tetanus/diphth/pertuss (Tdap) adult/adol: 0 unknown unit (06/25/21) Digitally Signed by LIZETT SUH on 04/30/2023 02:51 PM [id number] Anesthesiology Progress note Pt c/o severe postop pain despite fentanyl administration. Discussed with pt her morphine and hydromorphone allergies. States morphine is pruritus and hydromorphone much more severe. Pt is willing torevisit morphine d/t severity of pain, Will administer morphine 2 mg iv with diphenhydramine 25 mg iv Digitally Signed by QUINCY CARIAS DO on 04/30/2023 03:31 PM [facility] [id number] Cardiology Consult note Date of Service April 30, 2023 Shared/Split visit with Dr. Hardy Reason for Consultation AF; S/P Maze Referring Physician Dr. Ford History of Present Illness This is a 62-year-old female with a known history of recurring persistent atrial fibrillation despite being on Tikosyn and Toprol she is continue to have breakthrough episodes. However, the patient underwent ASD closure. And we are unable to move forward with ablative therapies. CT surgery was consulted and patient underwent Maze procedure with left atrial appendage clip completed today. EP has been consulted for further evaluation. We do recommend continuing on Tikosyn and her rate and rhythm control. Avoid other QT prolonging medications such as Tikosyn at this time. Past medical history is significant for 1. Recurring persistent atrial fibrillation 2. ASD closure 3. Hypertension 4. Nonalcoholic cirrhosis 5. Pulmonary hypertension (followed by Dr. Feliciano) 6. Comorbidities also include obstructive sleep apnea and acid reflux. Echocardiogram completed February 04, 2023 demonstrates preserved EF at 57% with ASD Amplatzer closure device. Convergent Maze procedure via subxiphoid approach ligation of the left atrial appendage with 40 mm atrial cure/atrial clip Today, the patient is resting in bed. She notes she is in pain status post her procedure. And our [facility] team is going to be working on pain management with her. On telemetry she is in normal sinus rhythm with occasional PAC. It does appear when she has a PAC she has pain . And this could just be palpitation she is feeling considering the postprocedural inflammation. Overall the patient is doing quite well. Collaboration with DRUPAL PROGRAMMER is on the floor and EP avoid QT prolonging minute medication. Continue on Tikosyn and rate and rhythm control. Review of Systems Pertinent positives per HPI all other systems reviewed and negative. Physical Exam Vitals and Measurements T: 36.3 C (Oral) TMIN: 32.83 C TMAX: 36.3 C (Oral) HR: 100(Monitored) RR: 18 BP: 110/58 BP: 149/71(Line) SpO2: 99% HT: 165 cm WT: 78.9 kg Weight Dosing Weight: 78.9 kg (04/30/23) General - 62 yr old female appearing stated age HEENT - head normocephalic, atraumatic. Pupils equal reactive to light. Nose patent bilaterally. Oropharynx without erythema or exudate. Neck -supple, full range of motion. No carotid bruits noted. Cardiovascular - Regular rate and rhythm. No significant murmurs appreciated. Lungs -shallow breath sounds. Clear to auscultation Abdomen - soft, nontender. Bowel sounds present in all 4 quadrants. Musculoskeletal -full weightbearing. Full range of motion in all extremities. Skin -intact, no lesions or rashes noted. Neurological - cranial nerves grossly intact. Mood and affect appropriate to situation. Peripheral vascular - No pitting edema Lab Results 04/30 06:13 Platelet: 168 Protime: 11.8 PT International Ratio: 1.0 Glucose Level: 101 Sodium Level: 143 Potassium Level: 4.0 BUN: 16.0 Creatinine Lvl (s): 0.79 Assessment/Plan 1. Recurring persistent atrial fibrillation Currently in normal sinus rhythm. Patient is status post Maze procedure with left atrial appendage clip. Continue on Tikosyn therapy. Continue to monitor heart rate and rhythm. Continue to monitor QTc. Avoid QT prolonging medication. 2. ASD closure Noted. Unable to form endocardial ablation 3. Hypertension Blood pressure 149/70 4. Nonalcoholic cirrhosis Noted. Continue to monitor liver enzymes 5. Pulmonary hypertension (followed by Dr. Feliciano) Stable. Continue to follow with Dr. Feliciano. Currently on Cialis Problem List/Past Medical History Ongoing Acute blood loss anemia Anxiety ASD secundum Atrial fibrillation ATRIAL FIBRILLATION WITH RVR Back pain CHEST PAIN, ATYPICAL CHEST WALL PAIN Cirrhosis, non-alcoholic Eczema GERD - Gastro-esophageal reflux disease Hypertension Migraine MTHFR gene mutation FARSHAD (obstructive sleep apnea) Osteoarthritis REFUSED INFLUENZA VACCINE REFUSED PNEUMOCOCCAL VACCINE STEATOHEPATITIS, NONALCOHOLIC SYNCOPE, NEAR Thyroid enlargement Urinary incontinence Historical DEHYDRATION DIARRHEA Procedure/Surgical History Echocardiogram: 02/06/23 Holter monitor: 11/17/22 Cardioversion: 10/09/22 Transesophageal echocardiogram: 09/14/22 Cardioversion: 09/14/22 Cardiac catheterization: 08/29/22 EGD - Esophagogastroduodenoscopy: 2021 Echocardiogram: 08/15/22 Echocardiogram: 08/08/22 Echocardiogram: 08/07/22 Echocardiogram: 08/07/22 Transesophageal echocardiogram: 08/07/22 PFO - Closure of patent foramen ovale: 08/07/22 Transesophageal echocardiogram: 06/15/22 Spirometry: 04/24/22 Cardiac catheterization: 04/13/22 Dilation and curettage: 2015 Hysteroscopy: 2015 Colonoscopy: 2011 Bunionectomy: 2007 Tubal ligation: 1992 Suspension of bladder: 1991 Tonsillectomy: 1964 Medications Inpatient Adrenalin 4 mg + Normal Saline 250 mL aspirin 81 mg oral delayed release tablet, 81 mg= 1 tab(s), Oral, Daily Bolus NS 500 mL, 500 mL, IV Bolus, AsDirected, PRN busPIRone, 5 mg= 1 tab(s), Oral, TID, PRN ceFAZolin, 2 gram(s)= 20 mL, IV Push (INT), q8hr Cefuroxime Inj (Zinacef) colchicine 0.6 mg oral tablet, 0.6 mg= 1 tab(s), Oral, qDay D51/2NS 1,000 mL, 1000 mL, Intravenous fentaNYL, 25 mcg= 0.5 mL, IV Push, q2h, PRN insulin regular 100 unit(s) + Normal Saline 100 mL magnesium oxide, 400 mg= 1 tab(s), Oral, BID magnesium sulfate for IV bolus, 2 gram(s)= 50 mL, IV Piggyback, AsDirected, PRN mupirocin 2% topical ointment, 1 aleena, Nostril, each, q12h nitroprusside for IV 50 mg [0.2 mcg/kg/min] + NS PMX titrate 100 mL norepinephrine 8 mg + Normal Saline 250 mL NS 500 mL, 500 mL, Intravenous oxyCODONE 5 mg oral tablet ( IMMEDIATE release ), 5 mg= 1 tab(s), Oral, q4h, PRN oxyCODONE 5 mg oral tablet ( IMMEDIATE release ), 10 mg= 2 tab(s), Oral, q6hr, PRN Peridex 0.12% oral rinse liquid, 15 mL, Swish & Spit, PREOP pharm phenylephrine for IV 50 mg [50 mcg/min] + Dextrose 5%/ Water titrate 250 mL Protonix, 40 mg, IV Push, qDayAC scopolamine (Transderm-Scop Patch REMOVAL), 1 EA, Miscellaneous, q72h scopolamine (Transderm-Scop Patch REMOVAL), 1 EA, Miscellaneous, Once tadalafil, 20 mg= 1 tab(s), Oral, BID Tigan, 200 mg= 2 mL, Intramuscular, q6h, PRN Tikosyn, 500 mcg= 1 cap(s), Oral, q12h Toprol-XL, 50 mg= 1 tab(s), Oral, Once tranexamic acid 1 gram(s), 1 gram(s)= 100 mL, IV Piggyback tranexamic acid 1 gram(s), 1 gram(s)= 100 mL, IV Piggyback tranexamic acid 1 gram(s), 1 gram(s)= 100 mL, IV Piggyback Transderm-Scop 1 mg/72 hr transdermal film, extended release, 1 patch(es), Transdermal, q72h Xarelto, 20 mg= 1 tab(s), Oral, qDay Home aspirin 81 mg oral delayed release tablet, 81 mg= 1 tab(s), Oral, Daily, 6 refills bumetanide 1 mg oral tablet, 1 mg= 1 tab(s), Oral, Daily, PRN, 2 refills busPIRone 5 mg oral tablet, 5 mg= 1 tab(s), Oral, TID, PRN cyanocobalamin 1000 mcg oral tablet, 1000 mcg= 1 tab(s), Oral, qDay Klor-Con M20 oral tablet, extended release, 20 mEq= 1 tab(s), Oral, qDay, 3 refills magnesium oxide 250 mg oral tablet, 500 mg= 2 tab(s), Oral, BID metoprolol succinate 25 mg oral TABLET extended release, See Instructions Tadalafil (Eqv-Cialis) 20 mg oral tablet, 20 mg= 1 tab(s), Oral, BID, 2 refills Tikosyn 250 mcg oral capsule, 500 mcg= 2 cap(s), Oral, BID Tylenol 325 mg oral capsule, 325 mg= 1 cap(s), Oral, q4h, PRN Vitamin D3 1000 intl units oral tablet, 1000 unit(s)= 1 tab(s), Oral, qDay Xarelto 20 mg oral tablet, 20 mg= 1 tab(s), Oral, qDay, 11 refills Allergies Bactrim (Itching, Rash) Cigarette smoke (Watery eye, Nasal drainage) Dilaudid (Nausea and vomiting, Diarrhea, Dizziness) codeine (HALLUCINATIONS) ibuprofen (Itching) iodinated radiocontrast dyes (Racing heartbeat) morphine (Itching) sulfa drugs (Itching, Rash) Social History Smoking Status - 07/22/2016 Never smoker Alcohol Use: Never., 09/20/2019 Employment/School Status: Employed. Activity Level: Occasional physical work., 10/08/2019 Home/Environment Domestic Concerns: None, Denies. Living situation: Home/Independent. Lives In: Single level home, 1st floor bedroom, 1st floor bathroom. Current Home Treatments Blood Pressure monitoring, CPAP machine. Marital Status: ., 04/16/2023 Domestic Concerns: Denies., 08/29/2022 Nutrition/Health Type of diet: Low sodium. Appetite Good. Eating Difficulties None. Caffeine intake amount: no caffeine intake., 07/31/2022 Substance Abuse Use: Never., 10/08/2019 Tobacco Nicotine Use: Never (less than 100 in lifetime)., 09/20/2019 Family History Atrial fibrillation: Mother and Sister. Cancer: Father and Brother. Cardiac pacemaker: Father and Sister. DVT - Deep vein thrombosis: Negative: Daughter. Deep vein thrombosis: Daughter. Heart failure: Father. High blood pressure: Mother. Leukemia: Brother. Malignant tumor of lung: Father. Malignant tumor of ovary: Sister. Pulmonary embolism: Daughter.Negative: Daughter. Stroke: Mother and Sister. Immunizations SARS-CoV-2 mRNA (tozinameran) vaccine: 0.3 unknown unit (10/19/21) SARS-CoV-2 mRNA (tozinameran) vaccine: 0 unknown unit (10/07/21) tetanus/diphth/pertuss (Tdap) adult/adol: 0 unknown unit (06/25/21) Digitally Signed by LIZETT SUH on 04/30/2023 02:51 PM [id number] NoteSINUS RHYTHM WITH FIRST DEGREE AV BLOCK ABNORMAL R-WAVE PROGRESSION, EARLY TRANSITION Electronic Signature: GEOFFREY DEWEY MD 05/01/2023 17:29:32[facility] 08-08-[facility] Note ORIGINAL EXAMINATION: ONE XRAY VIEW OF THE CHEST04/30/2023 11:17 am COMPARISON: 04/16/2023 HISTORY: ORDERING SYSTEM PROVIDED HISTORY: Reason for Exam: Abnormal breath sounds FINDINGS: Cardiac silhouette is prominent. 2 tube/catheters project over the thorax. Left atrial appendage clip noted. Lung volumes are low. Accentuated vascular and interstitial markings noted. No pneumothorax seen. No large pleural effusions.Degenerative changes seen of the spine. IMPRESSION: Accentuated vascular and interstitial markings could relate to mild edema pattern. Interpreted by: Jef Gould MD Preliminary Report By: Jef Gould MD Electronically signed By Jef Gould MD Dictated Date: 04/30/2023 11:39:53 AM Prelim Date: 04/30/2023 11:41:52 AM Sign Date: 04/30/2023 11:41:52 AM Ordering Provider: TYLER [facility]08-08-2023 Note* Exam Date Time Procedure Performing Provider Status 04/30/23 8:54 AM ANTON in [facility] Auth (Verifie d) [facility] 08-08-2023 NoteATRIAL FIBRILLATION WITH OCCASIONAL VENTRICULAR PREMATURE COMPLEXES ABNORMAL ECG Electronic Signature: GEOFFREY DEWEY MD 05/01/2023 17:28:56[facility] 08-08-2023 Anesthesiology Consult note Patient: DORCAS ANGULO Age: 62 years Sex: Female : 1960 Associated Diagnoses: None Author: QUINCY CARIAS DO Preoperative Information Greater than 6 hours Anesthesia history Patient's history: negative. Family's history: negative. Review of Systems Ear/Nose/Mouth/Throat: Negative except as documented in history of present illness. Respiratory: Negative except as documented in history of present illness. Cardiovascular: Negative except as documented in history of present illness. Gastrointestinal: Negative except as documented in history of present illness. Genitourinary: Negative except as documented in history of present illness. Endocrine: Negative except as documented in history of present illness. Musculoskeletal: Negative except as documented in history of present illness. Integumentary: Negative except as documented in history of present illness. Neurologic: Negative except as documented in history of present illness. Health Status Allergies: Allergic Reactions (Selected) Severity Not Documented Bactrim- Itching and rash. Cigarette smoke- Watery eye and nasal drainage. Codeine- Hallucinations. Dilaudid- Dizziness, diarrhea and nausea and vomiting. Ibuprofen- Itching. Iodinated radiocontrast dyes- Racing heartbeat. Morphine- Itching. Sulfa drugs- Rash and itching., Allergies (8) ActiveReaction BactrimItching Cigarette smokeWatery eye codeineHALLUCINATIONS DilaudidDizziness ibuprofenItching iodinated radiocontrast dyesRacing heartbeat morphineItching sulfa drugsItching Current medications: (Selected) Inpatient Medications Ordered Adrenalin 4 mg + Normal Saline 250 mL: Start: 04/30/23 6:00:00 EDT, 18 hour(s), Stop date 04/30/23 23:59:00 EDT, Infuse as directed for [facility] Cardioplegic [place] N[place]: Start: 04/30/23 6:00:00 EDT, Stop date 04/30/23 6:00:00 EDT, Rate: 0 mL/hr Cefuroxime Inj (Zinacef): Start: 04/30/23 6:00:00 EDT, Dose = 1.5 gram(s), Topical, PREOP pharm, 18hour(s), Stop: 04/30/23 23:59:00 EDT, mL/hr, Infuse over: 0 minute(s), 0 Heparin 10,000 units/mL: Start: 04/30/23 6:00:00 EDT, Dose = 10,000 unit(s), = 1 mL, Miscellaneous,PREOP pharm, 12 hour(s), Stop: 04/30/23 17:59:00 EDT, mL/hr, Infuse over: 0 minute(s), 0 Kefzol: Start: 04/30/23 5:00:00 EDT, Dose= 2 gram(s), = 20 mL, IV Push (INT), PREOP pharm, Routine,Rate: 240 mL/hr, Infuse over: 5 minute(s), 20 mL, 04/30/23 5:00:00 EDT Peridex 0.12% oral rinse liquid: Start: 04/30/23 5:00:00 EDT, Dose = 15 mL, Liq, Swish & Spit, PREOP pharm, 04/30/23 5:00:00 EDT Toprol-XL: Start: 04/30/23 5:00:00 EDT, Dose = 25 mg, = 1 tab(s), Oral, PREOP pharm, 04/30/23 5:00:00 EDT Transderm-Scop 1 mg/72 hr transdermal film, extended release: Start: 04/30/23 5:00:00 EDT, Dose = 1patch(es), ER Film, Transdermal, q72h, 04/30/23 5:00:00 EDT insulin regular 100 unit(s) + Normal Saline 100 mL: Start: 04/30/23 6:00:00 EDT, 18 hour(s), Stop date 04/30/23 23:59:00 EDT, Infuse as directed for [facility] norepinephrine 8 mg + Normal Saline 250 mL: Start: 04/30/23 6:00:00 EDT, 18 hour(s), Stop date 04/30/23 23:59:00 EDT, Infuse as directed for [facility] scopolamine (Transderm-Scop Patch REMOVAL): Start: 04/30/23 5:00:00 EDT, Once, 04/30/23 5:00:00 EDT scopolamine (Transderm-Scop Patch REMOVAL): Start: 05/03/23 5:00:00 EDT, q72h, 05/03/23 5:00:00 EDT tranexamic acid 1 gram(s): 04/30/23 6:00:00 EDT, PMX bag, IV Piggyback, 18 hour(s), Physician Stop,Stop date 04/30/23 23:59:00 EDT tranexamic acid 1 gram(s): 04/30/23 6:00:00 EDT, PMX bag, IV Piggyback, 18 hour(s), Physician Stop,Stop date 04/30/23 23:59:00 EDT tranexamic acid 1 gram(s): 04/30/23 6:00:00 EDT, PMX bag, IV Piggyback, 18 hour(s), Physician Stop,Stop date 04/30/23 23:59:00 EDT Prescriptions Prescribed Klor-Con M20 oral tablet, extended release: Dose : 20 mEq = 1 tab(s), Oral, qDay, # 30 tab(s), 3 Refill(s), Pharmacy: [facility], 167.6, cm, 04/08/23 13:33:00 EDT, Height, kg, 04/08/2313:33:00 EDT, Dosing Weight Tadalafil (Eqv-Cialis) 20 mg oral tablet: Dose : 20 mg = 1 tab(s), Oral, BID, # 60 tab(s), 2 Refill(s), Pharmacy: [facility], 167.6, cm, 03/25/23 14:22:00 EDT, Height Xarelto 20 mg oral tablet: Dose : 20 mg = 1 tab(s), Oral, qDay, # 30 tab(s), 11 Refill(s), Pharmacy: [facility], 167, cm, 11/21/22 15:18:00 EST, Height, 78.5 aspirin 81 mg oral delayed release tablet: Dose : 81 mg = 1 tab(s), Oral, Daily, # 30 tab(s), 6 Refill(s), Pharmacy: [facility], 167, cm, 10/16/22 9:45:00 EST, Height, kg, 10/16/22 9:45:00 EST, Dosing Weight bumetanide 1 mg oral tablet: Dose : 1 mg = 1 tab(s), Oral, Daily, PRN Swelling/weight gain, # 30 tab(s), 2 Refill(s), Pharmacy: [facility], 167.6, cm, 07/31/22 9:04:00 EST, Height, kg,07/31/22 9:04:00 EST, Dosing Weight Documented Medications Documented Tikosyn 250 mcg oral capsule: Dose : 500 mcg = 2 cap(s), Oral, BID Tylenol 325 mg oral capsule: Dose : 325 mg = 1 cap(s), Oral, q4h, PRN as needed for pain, # 20 cap(s), 0 Refill(s) Vitamin D3 1000 intl units oral tablet: Dose : 1,000 unit(s) = 1 tab(s), Oral, qDay, 0 Refill(s) busPIRone 5 mg oral tablet: Dose : 5 mg = 1 tab(s), Oral, TID, PRN Anxiety, # 270 tab(s), 0 Refill(s) cyanocobalamin 1000 mcg oral tablet: Dose : 1,000 mcg = 1 tab(s), Oral, qDay magnesium oxide 250 mg oral tablet: Dose : 500 mg = 2 tab(s), Oral, BID metoprolol succinate 25 mg oral TABLET extended release: See Instructions, 0.5 tab(s) NEEDED., 0Refill(s), Medications (15) Active Scheduled: (9) cardioplegic del Nido formula 1,052.8 mL, Miscellaneous, Once ceFAZolin syringe 2 gram(s) 20 mL, IV Push (INT), PREOP pharm cefuroxime 1.5 gram(s), Topical, PREOP pharm chlorhexidine topical 0.12% Liquid (60 mL) 15 mL, Swish & Spit, PREOP pharm heparin 10,000 unit(s) 1 mL, Miscellaneous, PREOP pharm metoprolol succinate 25 mg ER tablet 25 mg 1 tab(s), Oral, PREOP pharm scopolamine 1.5 mg (1 mg / 72 hours patch) 1 patch(es), Transdermal, q72h Transderm-Scop patch REMOVAL 1 EA, Miscellaneous, q72h Transderm-Scop patch REMOVAL 1 EA, Miscellaneous, Once Continuous: (6) epinephrine 4 mg + Sodium Chloride 0.9% 250 mL 250 mL, Intravenous insulin regular 100 unit(s) + Sodium Chloride 0.9% 100 mL 100 mL, Intravenous norepinephrine 8 mg + Sodium Chloride 0.9% 250 mL 250 mL, Intravenous tranexamic acid PMX 1 gram(s) , IV Piggyback tranexamic acid PMX 1 gram(s) , IV Piggyback tranexamic acid PMX 1 gram(s) , IV Piggyback PRN: (0) Problem list: Medical Anxiety / SNOMED CT 18080977 / Confirmed Atrial fibrillation / SNOMED CT 06727358 / Confirmed ATRIAL FIBRILLATION WITH RVR / SNOMED CT 7112555087 / Confirmed CHEST PAIN, ATYPICAL / SNOMED CT 719981100 / Confirmed Back pain / SNOMED CT 6727133547 / Confirmed CHEST WALL PAIN / SNOMED CT 954015026 / Confirmed Cirrhosis, non-alcoholic / SNOMED CT 863845759 / Confirmed Eczema / SNOMED CT 80420379 / Confirmed GERD - Gastro-esophageal reflux disease / SNOMED CT 4869133332 / Confirmed MTHFR gene mutation / SNOMED CT 0229242783 / Confirmed Hypertension / SNOMED CT 2573948534 / Confirmed REFUSED INFLUENZA VACCINE / SNOMED CT 955181367 / Confirmed Migraine / SNOMED CT 93887322 / Confirmed SYNCOPE, NEAR / SNOMED CT 8303323131 / Confirmed STEATOHEPATITIS, NONALCOHOLIC / SNOMED CT 4018249980 / Confirmed FARSHAD (obstructive sleep apnea) / SNOMED CT 562704071 / Confirmed Osteoarthritis / SNOMED CT 5174892659 / Confirmed ASD secundum / SNOMED CT 731063268 / Confirmed Thyroid enlargement / SNOMED CT 854687212 / Confirmed Urinary incontinence / SNOMED CT 9284993233 / Confirmed REFUSED PNEUMOCOCCAL VACCINE / SNOMED CT 3103404744 / Confirmed, Active Problems (34) Anxiety Anxiety ASD (atrial septal defect) ASD secundum Atrial fibrillation ATRIAL FIBRILLATION WITH RVR Back pain Chest pain CHEST PAIN, ATYPICAL CHEST WALL PAIN Cirrhosis, non-alcoholic Diverticulosis Eczema Exertional shortness of breath GERD - Gastro-esophageal reflux disease Heart failure Hypertension Migraine MTHFR gene mutation On anticoagulant therapy FARSHAD (obstructive sleep apnea) Osteoarthritis PONV (postoperative nausea and vomiting) Pulmonary HTN REFUSED INFLUENZA VACCINE REFUSED PNEUMOCOCCAL VACCINE Right heart enlargement Seasonal allergy Sleep apnea with use of continuous positive airway pressure (CPAP) STEATOHEPATITIS, NONALCOHOLIC SYNCOPE, NEAR Thyroid enlargement Tinnitus Urinary incontinence Histories Past Medical History: Active Back pain (0895633667) Migraine (13242249) Urinary incontinence (3489532930) GERD - Gastro-esophageal reflux disease (7271876156) Thyroid enlargement (819198398) Eczema (75445344) Comments: 07/16/2013 EDT 11:50 CIARRA Stanley RN Syl Trevino of back Resolved DEHYDRATION ([id number]): Resolved. DIARRHEA ([id number]): Resolved. Comments: - acute Family History: Cancer Father () Brother Cardiac pacemaker Father () Sister Atrial fibrillation Sister Mother High blood pressure Mother Heart failure Father () Stroke Mother Sister Malignant tumor of ovary Sister Pulmonary embolism Daughter Malignant tumor of lung Father () Leukemia Brother Deep vein thrombosis Daughter Procedure history: Echocardiogram ([id number]) on 02/06/2023 at 62 Years. Comments: 02/13/2023 14:07 Elana Glez MA (ABR-OE) 1. Left ventricle: The cavity size is normal. Wall thickness is mildly increased. Systolic functionis normal. The estimated ejection fraction is 55-60%. Wall motion is normal; there are no regional wall motion abnormalities. Normal diastolic function. 2. Ventricular septum: Thickness is mildly increased. 3. Mitral valve: Systolic bowing without prolapse. 4. Right ventricle: The RV systolic pressure by Doppler is 23 mm Hg. 5. Right atrium: The estimated right atrial pressure is 3 mm Hg. 6. Atrial septum: There is an Amplatzer closure device in the fossa ovalis region. There is no atrial level shunt by color doppler. Holter monitor ([id number]) on 11/17/2022 at 62 Years. Comments: 12/17/2022 11:20 Elana Glez MA (ABR-OE) 3-day ekg monitor tech significant for frequent episodes of long sustained atrial fibrillation atrial flutter converting to sinus rhythm spontaneously. Rare isolated premature atrial and ventricular beats were noted in singles as well. No atrial ventricular pauses observed. Cardioversion ([id number]) on 10/09/2022 at 62 Years. Transesophageal echocardiogram ([id number]) on 09/14/2022 at 62 Years. Comments: 09/30/2022 18:00 Elana Paris MA (ABR-OE) 1. Left ventricle: The cavity size is normal. Wall thickness is normal. Systolic function is normal. The estimated ejection fraction is 55-60%. There is no evidence of a thrombus. 2. Ventricular septum: There is no evidence of a ventricular septal defect. 3. Mitral valve: Posterior leaflet mobility is mildly restricted. There is no evidence of vegetation. There is mild to moderate regurgitation. 4. Left atrium: There is no evidence of a thrombus in the atrial cavity or appendage. No spontaneous echo contrast is observed. 5. Tricuspid valve: There is mild regurgitation. The regurgitant peak velocity is 2.2 m/sec. 6. Right atrium: The atrium is dilated. There is no evidence of a thrombus in the atrial cavity or appendage. Right atrial area 21.94 cm 7. Atrial septum: There is no atrial level shunt. There is no evidence of thrombus. Atrial septal occluder device is noted and is well positioned. No color-flow noted across the interatrial septum. Agitated saline contraststudy does not show an interatrial shunt. 8. Systemic veins: IVC is 2.2 cm, mildly dilated. 9. Pericardium, extracardiac: A small, free-flowing pericardial effusion is identified posterior tothe heart. The fluid has no internal echoes. There is no evidence of hemodynamic compromise. Recommendations: 1. IVC is 2.2 cm. Well-positioned ASD closure device. 2. No RICHARD thrombus. Cardioversion ([id number]) on 09/14/2022 at 62 Years. Cardiac catheterization ([id number]) on 08/29/2022 at 62 Years. Comments: 09/30/2022 18:00 Elana Paris MA (ABR-OE) No significant obstructive CAD. Normal LVEDP. EGD - Esophagogastroduodenoscopy ([id number]) in 2021 at 62 Years. Echocardiogram ([id number]) on 08/15/2022 at 61 Years. Comments: 09/30/2022 18:01 Elana Paris MA (ABR-OE) 1. Limited ECHO for assessment of pericardial effusion. 2. Left ventricle: Systolic function is normal. 3. Pericardium, extracardiac: A [id number], free-flowing pericardial effusion is identified posterior to the heart. The fluid has no internal echoes. There is no evidence of chamber collapse. Respirophasic change in transvalvular velocities is within normal limits. No clinical tamponade. 4. Inferior vena cava: The IVC is normal-sized. Respirophasic diameter changes are in the normal range (> 50%). 5. Right atrium: The estimated right atrial pressure is 3 mm Hg. Echocardiogram ([id number]) on 08/08/2022 at 61 Years. Comments: 09/30/2022 18:02 Elana Paris MA (ABR-OE) 1. Study data: limited for effusion check 2. Pericardium, extracardiac: A small pericardial effusion is identified posterior to the heart andalong the left ventricular free wall. There is no evidence of hemodynamic compromise. 3. Left ventricle: The cavity size is normal. Wall thickness is normal. Systolic function is normal. The estimated ejection fraction is 60-65%. Although no diagnostic regional wall motion abnormality is identified, this possibility cannot be completely excluded on the basis of this study. 4. Mitral valve: There is mild, 1+ regurgitation. 5. Left atrium: The atrium is mildly dilated. 6. Tricuspid valve: There is mild, 1+ regurgitation. 7. Right atrium: The atrium is mildly dilated. PFO - Closure of patent foramen ovale ([id number]) on 08/07/2022 at 61 Years. Echocardiogram ([id number]) on 08/07/2022 at 61 Years. Comments: 09/30/2022 18:03 Elana Paris MA (ABR-OE) Pericardium, extracardiac: A small to moderate posterior pericardial effusion is identified size 1.3 cm. There is no RV diastolic collapse noted. Previous TTE from March 2022 shows similar findings. Echocardiogram ([id number]) on 08/07/2022 at 61 Years. Comments: 09/30/2022 18:03 Elana Paris MA (ABR-OE) 1. Pericardium, extracardiac: A small pericardial effusion is identified. Features are not consistent with tamponade physiology. 2. Inferior vena cava: The IVC is trivially dilated Transesophageal echocardiogram ([id number]) on 08/07/2022 at 61 Years. Comments: 09/30/2022 18:04 Elana Paris MA (ABR-OE) 1. Left ventricle: Systolic function is normal. 2. Left atrium: There is no evidence of a thrombus in the atrial cavity or appendage. No spontaneous echo contrast is observed. 3. Right ventricle: The cavity size is mildly increased. 4. Right atrium: The atrium is dilated. There is no evidence of a thrombus in the atrial cavity or appendage. 5. Atrial septum: There is a 0.6 cm2 secundum ASD. Successful implantation of ASD closure device. 6. Pericardium, extracardiac: A small pericardial effusion is identified pre procedure and did not change post procedure Transesophageal echocardiogram ([id number]) on 06/15/2022 at 61 Years. Comments: 09/30/2022 18:05 Elana Paris MA (ABR-OE) 1. Left ventricle: Systolic function is normal. 2. Left atrium: There is no evidence of a thrombus in the atrial cavity or appendage. No spontaneous echo contrast is observed. 3. Right ventricle: The cavity size is increased. 4. Pulmonic valve: There is no evidence of a vegetation. 5. Tricuspid valve: There is no evidence of a vegetation. 6. Right atrium: The atrium is dilated. There is no evidence of a thrombus in the atrial cavity or appendage. 7. Atrial septum: Secundum ASD, 8 mm in diameter, 0.5 cm area noted with a predominant [id number] shunt on color Doppler as well as agitated saline study. Some right to left shunting noted with provocative maneuvers. 8. Inferior vena cava: The IVC is dilated at 2.2 cm. 9. Pericardium, extracardiac: A small pericardial effusion is identified Spirometry ([id number]) on 04/24/2022 at 61 Years. Comments: 09/30/2022 18:06 Elana Paris MA (ABR-OE) 1. Moderate degree of restrictive airway disease. 2. Bronchodilator therapy has not demonstrated any significant change indicating that the patient will not benefit from continued bronchodilator therapy. 3. No evidence of diffusion defect. Cardiac catheterization ([id number]) on 04/13/2022 at 61 Years. Dilation and curettage ([id number]) in 2016 at 56 Years. Hysteroscopy ([id number]) in 2016 at 56 Years. Colonoscopy ([id number]) in 2011 at 52 Years. Bunionectomy ([id number]) in 2007 at 48 Years. Tubal ligation ([id number]) in 1992 at 33 Years. Suspension of bladder ([id number]) in 1991 at 32 Years. Tonsillectomy ([id number]) in 1963 at 4 Years. Social History Social & Psychosocial Habits Alcohol 04/30/2023 Use: Never Employment/School 10/08/2019 Status: Employed Activity level: Occasional physical work Substance Abuse 04/30/2023 Use: Never Tobacco 04/30/2023 Tobacco Use: Never (less than 100 in l Home/Environment 04/30/2023 Domestic Concerns Denies 04/30/2023 Domestic Concerns Denies, None Living situation: Home/Independent Lives In 1st floor bathroom, 1st floor bedroom, Single level home Current Home Treatments Blood Pressure monitoring, CPAP machine Marital Status of Patient if Patient Independent Adult: Comment: will be staying with son after OR and he has 5 steps - 04/16/2023 14:11 - Erlinda Beaver RN Nutrition/Health 04/30/2023 Type of diet: Low sodium Appetite Good Eating Difficulties None Caffeine intake amount: no caffeine intake . Physical Examination General: Alert and oriented. Airway: Normal temporomandibular joint mobility, Normal mouth, Normal throat, Normal neck range of motion, Trachea midline. Mallampati classification: II (soft palate, fauces, uvula visible). Head: Normocephalic. Dentition Evaluation: Intact, Own teeth, Denies loose/chipped teeth. Neck: Supple. Respiratory: Lungs are clear to auscultation, Respirations are non-labored. Cardiovascular: Normal rate, Regular rhythm, No murmur. Heart Sounds: Normal. Gastrointestinal: Soft. Musculoskeletal Normal range of motion. Integumentary: Intact, Warm, Dry. Neurologic: Alert, Oriented. Review / Management Results review: Lab results 04/30/2023 5:47 EDT Designated Person #1 We May Share RadarChile Lainey Pate [phone] Designated Person #1 Relationship Daughter Designated Person #2 We May Share RadarChile devorah [phone] POA-call first Designated Person #2 Relationship Daughter Additional Designated Person Share [facility] Harley rivera [phone] Privacy Restrictions Requested None Height 165 cm Admission Weight 78.9 kg Weight Method Actual [place] Body Weight 56.91 kg Temperature Oral 35.6 DegC LOW Peripheral Pulse Rate 91 bpm Respiratory Rate 18 br/min Systolic Blood Pressure Non-Invasive 130 mmHg Diastolic Blood Pressure Non-Invasive 51 mmHg LOW Blood Pressure Method Automatic Blood Pressure Location Left arm Blood Pressure Cuff Size Medium Oxygen Saturation 96 % Status No, per patient Sensory Deficits None Sleep Apnea Snore Yes Sleep Apnea Tired Yes Sleep Apnea Obstruction Yes Sleep Apnea Pressure Yes Sleep Apnea BMI Yes Sleep Apnea Age Yes Sleep Apnea Neck Yes Sleep Apnea Gender No Sleep Apnea Score 7 >HHI High Risk for Sleep Apnea Yes Diagnosed With Sleep Apnea Yes Advanced Directives Yes Advance Directive Type [place] Durable Power of Digital Marketing [facility] [place] Declaration (Living Will) Advance Directive Location Patient instructed to bring in copy Infectious Disease Symptoms Patient states no symptoms Infectious Disease Recent Exposure No Alcohol and Drug Use No Employee of Institutional Living No Health Care Employee No History of Exposure to TB No History of Positive Chest X-Ray for TB No History of Positive TB Skin Test No Homeless No Known Immunosuppression No Recent Immigrant No Resident of Institutional Living No Bloody Sputum No Fatigue No Fever No Loss of Appetite No Night Sweats No Persistent Cough > 3 Weeks No Weight Loss No Barriers to Learning None evident Teaching Method Explanation Preferred Spoken Language North Korean Preferred Written Language North Korean Teaching Evaluation Verbalizes/Nonverbally indicates understanding Safety Brochure Information Reviewed Yes [facility] Video Viewed Patient refused Information Given by Patient Patient's Current Physicians Patient's Current Physicians Discharge To, Anticipated Home independently Prev Test Positive/Diagnosis w/COVID-19 Yes Previous COVID-19 Positive Date oct 2021 Current Quarantine/Isolated any Illness No Any Contact with Sick Animals/Birds No Traveled Anywhere in Last 30 Days No Lost Weight Unintentionally Recently No Eat Poorly Due to Decreased Appetite No Total MST Score 0 No Personal Devices, Patient Valuables None Anesthesia/Transfusions Prior anesthesia Admission Note-Nursing Same Day Patient History (Modified) 04/30/2023 5:42 EDT Electrocardiogram - EKG - CV Ordered (In Progress) . Assessment and Plan [place] [employer] Anesthesiologists (ASA) physical status classification: Class II. Anesthetic Preoperative Plan Premedication: intravenous. Anesthetic technique: General. Induction: intravenously. Maintenance airway: Oral endotracheal tube, bblocker. Special techniques: Warming device. Special Monitoring: Arterial line. Postoperative pain management: Per surgeon. Risks discussed: nausea, vomiting, headache, sore throat, dental injury, hypotension, allergic reaction, serious complications. Informed consent: signed by patient. Beta Wyatt: Beta Wyatt Taken Within 24 Hrs: Yes. Digitally Signed by QUINCY CARIAS DO on 04/30/2023 05:57 AM [id number] Miscellaneous Notes* Telephone Encounter - Marychuy Mahan LPN - 02/22/2023 1:18 PM EDT Patient calling was seen in [facility] 02/19 and asking for copy of xray report [facility] Stone Pact Team 3 fax number [phone]. Printed report and faxed as requested. documented in this encounter05-30-2023 NoteHNO ID: [id number] Author: RT Milo(R) Service: Radiology Author Type: Technologist Type: Progress Notes Filed: 02/19/2023 4:52 PM Note Text: Radiology Service Progress Note PATIENT NAME: Dorcas Angulo DATE OF SERVICE: February 19, 2023 TIME: 4:42 PM PATIENT IDENTITY VERIFICATION COMPLETED USING TWO (2) IDENTIFIERS: Name and Date of confirmed by patient verbally. FALL SCREENING: Has the patient had 2 falls in the last year or 1 fall with injury or currently using an Ambulatory Assistive Device (Walker, Cane, Wheelchair, Crutches, etc.)? No PATIENT GENDER DATA: Female. status: : No status: NO. PATIENT RELEVANT IMPLANT DATA REVIEWED: Yes RADIOLOGY DEPARTMENT: General X-ray: Exam(s) Completed: Lower Extremity X-Ray(s): Toes, Left 2nd PERIPHERAL IV DATA: Not applicable SIGNED BY: RT Milo(R) February 19, 2023 4:42 [facility]05-30-2023 NoteHNO ID: [id number] Author: Erika Elizalde APRN.RU[employer]ER [employer]AMP [employer]SEMBLER Service: ? Author Type: Nurse Practitioner Type: Progress Notes Filed: 02/19/2023 5:23 PM Note Text: CC: Patient presents with: Toe Injury: left 2nd toe bruising and painful, bilateral knees after fall x this am HPI Dorcas Angulo is a 62 year old female who presents today for above. Patient fell in her driveway this morning. Left 2nd toe is bruised and painful. Abrasion to both knees. No other injuries. Did not hit her head. REVIEW OF SYSTEMS See HPI PAST MEDICAL HISTORY Diagnosis Date Atrial fibrillation (HCC) Cirrhosis (HCC) Essential hypertension Essential tremor Sleep apnea PAST SURGICAL HISTORY Procedure Laterality Date BLADDER SURGERY HX 1991 Bladder suspension FOOT SURGERY HX Left 2009 Bunion removed TONSILLECTOMY HX age 4 TUBAL LIGATION HX 1992 ALLERGIES Bactrim [Sulfamethoxazole-Trimethoprim], Codeine, Dilaudid [Hydromorphone (Bulk)], Iodine, Morphine, and Motrin [Ibuprofen] MEDICATIONS Tadalafil (CIALIS) 20 mg tab(s) Take 20 mg by mouth once daily. dofetilide (TIKOSYN) 250 mcg capsule Dose : 500 mcg = 2 cap(s), Oral, BID rivaroxaban (XARELTO) 20 mg tablet 20 mg. aspirin, enteric coated (ASPIRIN, ENTERIC COATED) 81 mg EC tablet 81 mg. Magnesium Oxide 250 mg magnesium tab 500 mg. carvedilol (COREG) 12.5 mg tablet Take 0.5 tablets by mouth twice daily. bumetanide (BUMEX) 1 mg tablet TAKE 1 TABLET BY MOUTH EVERY DAY NEEDED FOR SWELLINGWEIGHT GAIN cholecalciferol (VITAMIN D3) 5,000 unit tab q 24 HR. busPIRone (BUSPAR) 5 mg tablet nitroglycerin sublingual (NITROQUICK) 0.3 mg SL tablet Dissolve 1 tablet under the tongue one time only for 1 dose. To be administered in Radiology for CTA exam (Patient not taking: Reported on 02/19/2023) metoprolol (LOPRESSOR) 5 mg/5 mL injection 5 mg Metoprolol IV dose increments over 3-5 minutes. May give additional 5mg Metoprolol every 5 minutes until target heart rate achieved, or maximum dosage of 30 mg of Metoprolol. (Patient not taking: Reported on 02/19/2023) NETTLE LEAF ORAL Take by mouth. (Patient not taking: Reported on 04/12/2021 ) MILK THISTLE ORAL Take by mouth. (Patient not taking: Reported on 04/12/2021 ) DANDELION ORAL Take by mouth. (Patient not taking: Reported on 04/12/2021 ) RED CLOVER ORAL Take by mouth. (Patient not taking: Reported on 04/12/2021 ) BURDOCK ROOT ORAL Take by mouth. (Patient not taking: Reported on 04/12/2021 ) diphenhydrAMINE (BENADRYL) 50 mg capsule Take 1 capsule by mouth as directed for 1 dose. one (1) hour prior to exam. (Patient not taking: Reported on 09/13/2016) FAMILY HISTORY Problem Relation Age of Onset Cancer Father Lung-smoker Obesity Father Diabetes Paternal Aunt Thyroid Mother Heart Mother Congenital hole in heart Heart Father Pacemaker other (Leukemia [Other]) Brother Breast Cancer Paternal Grandmother Social History Tobacco Use Smoking status: Never Smokeless tobacco: Never Substance Use Topics Alcohol use: No Drug use: No PHYSICAL EXAM BP 112/78 Pulse 88 Temp 37.1 ?C (98.7 ?F) Resp 16 Wt 80.3 kg (177 lb) SpO2 97% BMI 28.57 kg/m? General Appearance: well appearing, in no acute distress, alert Ext: good distal pulses, capillary refill < 2 seconds. Left 2nd toe- no obvious deformities. distal toe ecchymotic. Very tender with palpation. ASSESSMENT/PLAN: 1. Displaced fracture of distal phalanx of left lesser toe(s), initial encounter for closed fracture - ICD9: 826.0, ICD10: S92.532A (primary diagnosis) Reviewed x-ray results with patient. 2nd toe rena taped, placed in post op shoe. Symptom management discussed. - CONSULT TO PODIATRY, will schedule with Dr. Johnson 2. Pain of toe of left foot - ICD9: 729.5, ICD10: M79.675 As above - XR TOE AP/LAT/OBL LEFT 3. Toe injury, left, initial encounter - ICD9: 959.7, ICD10: S99.922A As above - XR TOE AP/LAT/OBL LEFT Prescription instructions reviewed with patient as applicable. Potential red flag symptoms discussed with the patient. Reviewed appropriate action plan to take if red flag symptoms occur. Patient agreeable to treatment plan. Erika Elizalde APRN.[facility]05-30-2023 History of Present illness Narrative* Nava Child, RT(R) - 02/19/2023 4:40 PM EDT Radiology Service Progress Note PATIENT NAME: Dorcas Angulo DATE OF SERVICE: February 19, 2023 TIME: 4:42 PM PATIENT IDENTITY VERIFICATION COMPLETED USING TWO (2) IDENTIFIERS: Name and Date of confirmedby patient verbally. FALL SCREENING: Has the patient had 2 falls in the last year or 1 fall with injury or currently using an Ambulatory Assistive Device (Walker, Cane, Wheelchair, Crutches, etc.)? No PATIENT GENDER DATA: Female. status: : No status: NO. PATIENT RELEVANT IMPLANT DATA REVIEWED: Yes RADIOLOGY DEPARTMENT: General X-ray: Exam(s) Completed: Lower Extremity X- Ray(s): Toes, Left 2nd PERIPHERAL IV DATA: Not applicable SIGNED BY: RT Milo(Nelson) February 19, 2023 4:42 PM documented in this encounter05-11-2023 Hospital Discharge instructions Patient Education 01/31/2023 10:09:40 Atrial Fibrillation Atrial Fibrillation Atrial fibrillation is a condition in which the heart beats in an irregular pattern. It is caused by a problem in the heart's electrical pathways. It can be a sign of heart disease or other health problems that affect the heart. Heart palpitations are the most common symptom of atrial fibrillation. This is the feeling that your heart is fluttering, beating fast, hard, or irregular. When the heart beats too fast, it doesn't pump blood very well. This can cause other symptoms like anxiety, fatigue, shortness of breath, chestpain, dizziness, or fainting. Atrial fibrillation may come and go. It can last from a few hours to a couple of days. Or, it may become chronic, lasting for months at a time or even become permanent. Atrial fibrillation may be caused by heart disease or other conditions in the body that affect the heart: Coronary artery disease (atherosclerosis) High blood pressure Disease of the heart valves Enlarged heart Heart failure Atrial fibrillation can also occur without heart disease because of: Overactive thyroid (hyperthyroid) Chronic lung disease (COPD, emphysema, bronchitis) Heavy alcohol use Cardiac stimulants like cocaine, amphetamines, diet pills, certain decongestant cold medicines, caffeine, or nicotine Infection Blood clot in the lung (pulmonary embolus) Diabetes Chronic kidney disease Obesity Extreme athletic conditioning Treating or removing these causes will help your treatment for atrial fibrillation. It will also make it less likely for the atrial fibrillation to come back. Atrial fibrillation can alternate back and forth with another abnormal rhythm called atrial flutter. Atrial flutter is a more regular heart rhythm and is also associated with an increased stroke risk. Proper treatment can lower your risk for stroke. Home care Follow these guidelines when caring for yourself at home: Go back to your usual activities as soon as you are feeling back to normal. If you smoke, stop smoking. Contact your healthcare provider or a local stop- smoking program for help. Don't use stimulants like alcohol, cocaine, amphetamines, diet pills, certain decongestant cold medicines, caffeine, or nicotine. If your provider prescribed medicine to stop atrial fibrillation from coming back, take it exactly as directed. Some medicines must be taken every day, not just when you have symptoms. This will helpthem work as they should. If you were prescribed warfarin to lower your risk for stroke, have your blood tested on a regular basis as advised by your provider. This will make sure you are getting the dose that is right for you. It also lower your risk for side effects. Follow-up care Follow up with your healthcare provider, or as advised. When to seek medical advice Call your healthcare provider right away if any of these following occur: Shortness of breath or swelling in the legs gets worse Unexpected weight gain Chest pain or the sense that your heart is fluttering or beating fast or hard (palpitations) Any sign of bleeding if you are on a blood thinner Pain, redness, or swelling in one leg Also call your provider right away if you have these signs of stroke: Weakness of an arm or leg or one side of the face Difficulty with speech or vision Extreme drowsiness, confusion, dizziness, or fainting [id number] [employer]. [address] [place] [address]. All rights reserved. This information is not intended as a substitute for professional medical care. Always follow yourhealthcare professional's instructions. Follow Up Care 01/31/2023 08:28:04 With:GIOVANNA FELICIANO MD Address: [facility] [address] [facility] [place] [address]- [phone] When:2-4 days [facility] 05-11-2023 Note Discharge Instructions Thank you for allowing [facility] to assist you with your healthcare needs. The following is importantdischarge information regarding your hospital visit. Diagnosis from Today's Visit Atrial fibrillation Chest pressure - Adult Palpitations What to Do Next Instructions from Your Care Team No qualifying data available. Post Acute Orders No qualifying data available. You Need to Schedule the Following Appointments Follow Up with GIOVANNA FELICIANO MD When Within 2-4 days Where: [address] [facility] [place] [address] [phone] Allergies predniSONE Bactrim Cigarette smoke Dilaudid HYDROmorphone (Unknown) codeine (HALLUCINATIONS) ibuprofen (Itching) iodinated radiocontrast dyes morphine (Itching) sulfa drugs sulfamethoxazole-trimethoprim (Eruption) Medications Please ask your primary doctor or pharmacist before taking any other medication not listed, including over the counter drugs, herbal medications, vitamins and or supplements as they may interact withyour home medications. What How Much When Instructions Last Dose Unchanged aspirin (aspirin 81 mg oral delayed release tablet) 1 tab(s) by mouth Every day Unchanged bumetanide (bumetanide 1 mg oral tablet) 1 tab(s) by mouth Every day as needed for Swelling/weight gain Unchanged cholecalciferol (Vitamin D3 1000 intl units oral tablet) 1 tab(s) by mouth Once a day Unchanged cyanocobalamin (Vitamin B12) 1,000 Microgram by mouth Once a day Unchanged desoximetasone topical (desoximetasone 0.05% topical cream) 1 application Topical Two (2) times a day as needed for Rash Unchanged dofetilide (dofetilide 250 mcg oral capsule) 2 cap by mouth Two (2) times a day Currently on hold for bradycardia SMS Unchanged metoprolol (metoprolol succinate 25 mg oral TABLET extended release) 0.5 tab(s) by mouth Two (2) times a day Do not crush or chew (controlled release) Unchanged Misc Medication (TADALAFIL) 2 tablets by mouth Every day TAKE 2 TABLETS BY MOUTH EVERY DAY Unchanged potassium chloride 20 Milliequivalent by mouth As Directed Unchanged rivaroxaban (Xarelto 20 mg oral tablet) 1 tab(s) by mouth Once a day Unchanged tadalafil (Tadalafil (Eqv-Adcirca) 20 mg oral tablet) 2 tab(s) by mouth Once a day Unchanged vitamin E 100 International unit by mouth Once a day Please take this list to your next doctor s visit. Bring all medications you take, including over the counter medications, herbals and other supplements with you to your doctor s visit. Patients and families are reminded to discard old lists and to update any records with all medication providers or retail pharmacies. Education Materials Atrial Fibrillation Atrial fibrillation is a condition in which the heart beats in an irregular pattern. It is caused by a problem in the heart's electrical pathways. It can be a sign of heart disease or other health problems that affect the heart. Heart palpitations are the most common symptom of atrial fibrillation. This is the feeling that your heart is fluttering, beating fast, hard, or irregular. When the heart beats too fast, it doesn't pump blood very well. This can cause other symptoms like anxiety, fatigue, shortness of breath, chestpain, dizziness, or fainting. Atrial fibrillation may come and go. It can last from a few hours to a couple of days. Or, it may become chronic, lasting for months at a time or even become permanent. Atrial fibrillation may be caused by heart disease or other conditions in the body that affect the heart: Coronary artery disease (atherosclerosis) High blood pressure Disease of the heart valves Enlarged heart Heart failure Atrial fibrillation can also occur without heart disease because of: Overactive thyroid (hyperthyroid) Chronic lung disease (COPD, emphysema, bronchitis) Heavy alcohol use Cardiac stimulants like cocaine, amphetamines, diet pills, certain decongestant cold medicines, caffeine, or nicotine Infection Blood clot in the lung (pulmonary embolus) Diabetes Chronic kidney disease Obesity Extreme athletic conditioning Treating or removing these causes will help your treatment for atrial fibrillation. It will also make it less likely for the atrial fibrillation to come back. Atrial fibrillation can alternate back and forth with another abnormal rhythm called atrial flutter. Atrial flutter is a more regular heart rhythm and is also associated with an increased stroke risk. Proper treatment can lower your risk for stroke. Home care Follow these guidelines when caring for yourself at home: Go back to your usual activities as soon as you are feeling back to normal. If you smoke, stop smoking. Contact your healthcare provider or a local stop- smoking program for help. Don't use stimulants like alcohol, cocaine, amphetamines, diet pills, certain decongestant cold medicines, caffeine, or nicotine. If your provider prescribed medicine to stop atrial fibrillation from coming back, take it exactly as directed. Some medicines must be taken every day, not just when you have symptoms. This will helpthem work as they should. If you were prescribed warfarin to lower your risk for stroke, have your blood tested on a regular basis as advised by your provider. This will make sure you are getting the dose that is right for you. It also lower your risk for side effects. Follow-up care Follow up with your healthcare provider, or as advised. When to seek medical advice Call your healthcare provider right away if any of these following occur: Shortness of breath or swelling in the legs gets worse Unexpected weight gain Chest pain or the sense that your heart is fluttering or beating fast or hard (palpitations) Any sign of bleeding if you are on a blood thinner Pain, redness, or swelling in one leg Also call your provider right away if you have these signs of stroke: Weakness of an arm or leg or one side of the face Difficulty with speech or vision Extreme drowsiness, confusion, dizziness, or fainting [phone] [employer]. [address] [place] [address]. All rights reserved. This information is not intended as a substitute for professional medical care. Always follow yourhealthcare professional's instructions. Additional Information VACCINATE! IT SAVES LIVES! Members of the community who have not yet received the COVID-19 vaccine and would like to receive it can visit one of [facility] vaccine clinics. There are many vaccine clinic locations within the [facility]. For locations and available times, please visit [email or web address]/. It is important to note that some COVID mobile vaccine clinics are held outdoors and may be canceled in rainy or stormy conditions. To learn more about pediatric vaccinations (ages 5-11), we invite you to visit the [facility] webpage. https://www.[email or web address]/pages/[email or web address]-[email or web address]-[email or web address] [email or web address].htmlTo learn more about the COVID-19 vaccine, we invite you to visit the CDC website for a list of frequently asked questions. https://www.cdc.gov/coronavirus/2019-ncov/vaccines/faq.html [facility] Patient Portal Access Instructions: Stay connected with your healthcare team and access your personal medical information anytime with the [facility] Patient Portal. If you would like a full copy of your medical records please contact the [facility] Medical Records Department Saturday through Saturday between 8a.m. and 4:30p.m. Please follow the directions below to access the portal: 1.Access the email account you provided upon registration to the [facility].2.Look for an invitation email from [facility].3.Open the email and access the invitation link: Accept Invitation to [facility]4.Fill in the required العلي to create your account. Sign into [email or web address] with your username and password that you created in the above steps to stay up to date. You can then view a summary of results, a summary of your visits, and the ability to download your summaries to your computer or send the information securely to a physician. Remember that your healthcare information is confidential, so carefully consider who you will allow to register on the [facility] Patient Portal for access to your information. You can also access the [facility] Patient Portal on the [employer]Data. Simply click on Health Records under SCM-GL and then click on the [facility] logo. HOW TO SAFELY DISPOSE OF PRESCRIPTION MEDICATIONS Please use one of the following methods to safely dispose of your unused medications. 1.Use a drug disposal kit: the drug disposal pouch allows you to safely discard your old and unuseddrugs. Ask your nurse to give you one when you are discharged.2.Visit a local take-back location: Many local pharmacies and police departments have programs that collect old and unwanted prescriptiondrugs. Call your local pharmacy or go to http://bit.[employer]/4M2Vh4b to find one close to you.3.Make use of household items: Use cat litter or old coffee grounds to dispose medications if other options arenot available. Mix your drugs with these household products, seal them in an airtight container andthrow it into the garbage. Call [facility]: [phone] to be sure your drugs can be disposed of in this way. Some medicines may require a different approach.4.Never flush your medications down the toilet. IF YOU HAVE BEEN PRESCRIBED AN OPIOIDS FOR PAIN If you have been prescribed an opioid (such as hydrocodone, oxycodone or morphine), it is critical to understand the possible side effects and risks of opioid pain medications. Even when taken as directed, opioids can have several side effects including: Tolerance, meaning you might need to take more of a medication for the same pain relief. Nausea, vomiting and/or constipation. Sleepiness, dizziness, dry mouth, confusion, depression or itching. Physical dependence, meaning you have withdrawal symptoms when a medication is stopped ? this can develop within a few days. KNOW YOUR RESPONSIBILITIES It is important to know exactly how much and how often to take the opioid pain medications you are prescribed. Never take opioids in higher amounts or more often than prescribed. Do not combine opioids with alcohol or other drugs that cause drowsiness, such as benzodiazepines, also known as benzos,including diazepam and alprazolam, muscle relaxants or sleep aids. Never sell or share prescriptionopioids. This is illegal. Store opioids in a secure place and out of reach of others (including children, family, friends and visitors). The last page(s) of this document has been signed and retained as a CHART COPY Signatures Patient Education Materials Atrial Fibrillation Medication Leaflets My discharge plan and instructions have been reviewed and explained to me and I,DORCAS ANGULO understand my current condition and have read and understand these discharge instructions. I have received a written copy of the plan/instructions. If I have questions, I am aware that I should contact my doctor. 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 No focal consolidation or pulmonary edema. No pneumothorax or pleural effusion. No acute osseous abnormalities. IMPRESSION: No acute cardiopulmonary process. I have personally reviewed the images of this examination and agree with the resident's findings and interpretations. Interpreted by: Lisandro Layton MD Preliminary Report By: Guille Ames Electronically signed By Lisandro Layton MD Dictated Date: 01/31/2023 8:57:51 AM Prelim Date: 01/31/2023 9:02:20 AM Sign Date: 01/31/2023 9:02:20 AM Ordering Provider: [facility]05-11-2023 Note ORIGINAL EXAMINATION: ONE XRAY VIEW OF THE CHEST01/31/2023 8:56 am COMPARISON: Chest x-ray 10/13/2022 HISTORY: ORDERING SYSTEM PROVIDED HISTORY: Reason for Exam: Chest pain FINDINGS: Cardiomediastinal contours are within normal limits. No focal consolidation or pulmonary edema. No pneumothorax or pleural effusion. No acute osseous abnormalities. IMPRESSION: No acute cardiopulmonary process. I have personally reviewed the images of this examination and agree with the resident's findings and interpretations. Interpreted by: Lisandro Layton MD Preliminary Report By: Guille Ames Electronically signed By Lisandro Layton MD Dictated Date: 01/31/2023 8:57:51 AM Prelim Date: 01/31/2023 9:02:20 AM Sign Date: 01/31/2023 9:02:20 AM Ordering Provider: [facility]05-09-2023 Hospital Discharge instructions Patient Education 01/29/2023 11:44:05 Atrial Fibrillation Atrial Fibrillation Atrial fibrillation is a condition in which the heart beats in an irregular pattern. It is caused by a problem in the heart's electrical pathways. It can be a sign of heart disease or other health problems that affect the heart. Heart palpitations are the most common symptom of atrial fibrillation. This is the feeling that your heart is fluttering, beating fast, hard, or irregular. When the heart beats too fast, it doesn't pump blood very well. This can cause other symptoms like anxiety, fatigue, shortness of breath, chestpain, dizziness, or fainting. Atrial fibrillation may come and go. It can last from a few hours to a couple of days. Or, it may become chronic, lasting for months at a time or even become permanent. Atrial fibrillation may be caused by heart disease or other conditions in the body that affect the heart: Coronary artery disease (atherosclerosis) High blood pressure Disease of the heart valves Enlarged heart Heart failure Atrial fibrillation can also occur without heart disease because of: Overactive thyroid (hyperthyroid) Chronic lung disease (COPD, emphysema, bronchitis) Heavy alcohol use Cardiac stimulants like cocaine, amphetamines, diet pills, certain decongestant cold medicines, caffeine, or nicotine Infection Blood clot in the lung (pulmonary embolus) Diabetes Chronic kidney disease Obesity Extreme athletic conditioning Treating or removing these causes will help your treatment for atrial fibrillation. It will also make it less likely for the atrial fibrillation to come back. Atrial fibrillation can alternate back and forth with another abnormal rhythm called atrial flutter. Atrial flutter is a more regular heart rhythm and is also associated with an increased stroke risk. Proper treatment can lower your risk for stroke. Home care Follow these guidelines when caring for yourself at home: Go back to your usual activities as soon as you are feeling back to normal. If you smoke, stop smoking. Contact your healthcare provider or a local stop- smoking program for help. Don't use stimulants like alcohol, cocaine, amphetamines, diet pills, certain decongestant cold medicines, caffeine, or nicotine. If your provider prescribed medicine to stop atrial fibrillation from coming back, take it exactly as directed. Some medicines must be taken every day, not just when you have symptoms. This will helpthem work as they should. If you were prescribed warfarin to lower your risk for stroke, have your blood tested on a regular basis as advised by your provider. This will make sure you are getting the dose that is right for you. It also lower your risk for side effects. Follow-up care Follow up with your healthcare provider, or as advised. When to seek medical advice Call your healthcare provider right away if any of these following occur: Shortness of breath or swelling in the legs gets worse Unexpected weight gain Chest pain or the sense that your heart is fluttering or beating fast or hard (palpitations) Any sign of bleeding if you are on a blood thinner Pain, redness, or swelling in one leg Also call your provider right away if you have these signs of stroke: Weakness of an arm or leg or one side of the face Difficulty with speech or vision Extreme drowsiness, confusion, dizziness, or fainting [phone] [employer]. [address] [place] [address]. All rights reserved. This information is not intended as a substitute for professional medical care. Always follow yourhealthcare professional's instructions. Follow Up Care 01/29/2023 09:17:03 With:GIOVANNA FELICIANO Address: [address] [facility] [address] [place] [address]- [phone] Business (1) When:01/29/2023 Comments:Schedule appointment as soon as possibleReturn to ED if symptoms worsenTake 400mg magnesium oxide daily With:LINA ZENDEJAS Address: [facility] [address] [place] [phone] Business (1) When:2-4 days [facility] 05-09-2023 Note Discharge Instructions Thank you for allowing [facility] to assist you with your healthcare needs. The following is importantdischarge information regarding your hospital visit. Diagnosis from Today's Visit Atrial fibrillation Chest pain What to Do Next Instructions from Your Care Team Discharge Return to Work, School, or Sports (Return to Work, School, or Sports) - Ordered -- 01/30/23, May return to: work, 01/29/23 11:44:00 EDT Post Acute Orders No qualifying data available. You Need to Schedule the Following Appointments Follow Up with GIOVANNA FELICIANO When 01/29/2023 12:00 AM EDT Why: Schedule appointment as soon as possible Return to ED if symptoms worsen Take 400mg magnesium oxide daily Where: [address] [facility] [address] [place] [address]- [phone] Business (1) Follow Up with LINA ZENDEJAS When Within 2-4 days Where: [facility] [address] [place] [phone]- [phone] Business (1) Allergies predniSONE Bactrim Cigarette smoke Dilaudid HYDROmorphone (Unknown) codeine (HALLUCINATIONS) ibuprofen (Itching) iodinated radiocontrast dyes morphine (Itching) sulfa drugs sulfamethoxazole-trimethoprim (Eruption) Medications Please ask your primary doctor or pharmacist before taking any other medication not listed, including over the counter drugs, herbal medications, vitamins and or supplements as they may interact withyour home medications. What How Much When Instructions Last Dose Unchanged aspirin (aspirin 81 mg oral delayed release tablet) 1 tab(s) by mouth Every day Unchanged bumetanide (bumetanide 1 mg oral tablet) 1 tab(s) by mouth Every day as needed for Swelling/weight gain Unchanged cholecalciferol (Vitamin D3 1000 intl units oral tablet) 1 tab(s) by mouth Once a day Unchanged cyanocobalamin (Vitamin B12) 1,000 Microgram by mouth Once a day Unchanged desoximetasone topical (desoximetasone 0.05% topical cream) 1 application Topical Two (2) times a day as needed for Rash Unchanged dofetilide (dofetilide 250 mcg oral capsule) 2 cap by mouth Two (2) times a day Currently on hold for bradycardia SMS Unchanged metoprolol (metoprolol succinate 25 mg oral TABLET extended release) 0.5 tab(s) by mouth Once a day Do not crush or chew (controlled release) Unchanged potassium chloride 20 Milliequivalent by mouth As Directed Unchanged rivaroxaban (Xarelto 20 mg oral tablet) 1 tab(s) by mouth Once a day Unchanged tadalafil (Tadalafil (Eqv-Adcirca) 20 mg oral tablet) 1 tab(s) by mouth Once a day Unchanged vitamin E 100 International unit by mouth Once a day Please take this list to your next doctor s visit. Bring all medications you take, including over the counter medications, herbals and other supplements with you to your doctor s visit. Patients and families are reminded to discard old lists and to update any records with all medication providers or retail pharmacies. Education Materials Atrial Fibrillation Atrial fibrillation is a condition in which the heart beats in an irregular pattern. It is caused by a problem in the heart's electrical pathways. It can be a sign of heart disease or other health problems that affect the heart. Heart palpitations are the most common symptom of atrial fibrillation. This is the feeling that your heart is fluttering, beating fast, hard, or irregular. When the heart beats too fast, it doesn't pump blood very well. This can cause other symptoms like anxiety, fatigue, shortness of breath, chestpain, dizziness, or fainting. Atrial fibrillation may come and go. It can last from a few hours to a couple of days. Or, it may become chronic, lasting for months at a time or even become permanent. Atrial fibrillation may be caused by heart disease or other conditions in the body that affect the heart: Coronary artery disease (atherosclerosis) High blood pressure Disease of the heart valves Enlarged heart Heart failure Atrial fibrillation can also occur without heart disease because of: Overactive thyroid (hyperthyroid) Chronic lung disease (COPD, emphysema, bronchitis) Heavy alcohol use Cardiac stimulants like cocaine, amphetamines, diet pills, certain decongestant cold medicines, caffeine, or nicotine Infection Blood clot in the lung (pulmonary embolus) Diabetes Chronic kidney disease Obesity Extreme athletic conditioning Treating or removing these causes will help your treatment for atrial fibrillation. It will also make it less likely for the atrial fibrillation to come back. Atrial fibrillation can alternate back and forth with another abnormal rhythm called atrial flutter. Atrial flutter is a more regular heart rhythm and is also associated with an increased stroke risk. Proper treatment can lower your risk for stroke. Home care Follow these guidelines when caring for yourself at home: Go back to your usual activities as soon as you are feeling back to normal. If you smoke, stop smoking. Contact your healthcare provider or a local stop- smoking program for help. Don't use stimulants like alcohol, cocaine, amphetamines, diet pills, certain decongestant cold medicines, caffeine, or nicotine. If your provider prescribed medicine to stop atrial fibrillation from coming back, take it exactly as directed. Some medicines must be taken every day, not just when you have symptoms. This will helpthem work as they should. If you were prescribed warfarin to lower your risk for stroke, have your blood tested on a regular basis as advised by your provider. This will make sure you are getting the dose that is right for you. It also lower your risk for side effects. Follow-up care Follow up with your healthcare provider, or as advised. When to seek medical advice Call your healthcare provider right away if any of these following occur: Shortness of breath or swelling in the legs gets worse Unexpected weight gain Chest pain or the sense that your heart is fluttering or beating fast or hard (palpitations) Any sign of bleeding if you are on a blood thinner Pain, redness, or swelling in one leg Also call your provider right away if you have these signs of stroke: Weakness of an arm or leg or one side of the face Difficulty with speech or vision Extreme drowsiness, confusion, dizziness, or fainting [phone] [employer]. [address] [place] [address], [place] [address]. All rights reserved. This information is not intended as a substitute for professional medical care. Always follow yourhealthcare professional's instructions. Additional Information VACCINATE! IT SAVES LIVES! Members of the community who have not yet received the COVID-19 vaccine and would like to receive it can visit one of [facility] vaccine clinics. There are many vaccine clinic locations within the [facility]. For locations and available times, please visit [email or web address]/. It is important to note that some COVID mobile vaccine clinics are held outdoors and may be canceled in rainy or stormy conditions. To learn more about pediatric vaccinations (ages 5-11), we invite you to visit the [facility] webpage. https://www.[facility].org/pages/[email or web address]-Lhuou-Fzu stions.htmlTo learn more about the COVID-19 vaccine, we invite you to visit the CDC website for a list of frequently asked questions. https://www.cdc.gov/coronavirus/2019-ncov/vaccines/faq.html [facility] Patient Portal Access Instructions: Stay connected with your healthcare team and access your personal medical information anytime with the [facility] Patient Portal. If you would like a full copy of your medical records please contact the [facility] Medical Records Department Saturday through Saturday between 8a.m. and 4:30p.m. Please follow the directions below to access the portal: 1.Access the email account you provided upon registration to the hospital.2.Look for an invitation email from [facility].3.Open the email and access the invitation link: Accept Invitation to [facility]4.Fill in the required العلي to create your account. Sign into [email or web address] with your username and password that you created in the above steps to stay up to date. You can then view a summary of results, a summary of your visits, and the ability to download your summaries to your computer or send the information securely to a physician. Remember that your healthcare information is confidential, so carefully consider who you will allow to register on the [facility] Patient Portal for access to your information. You can also access the [facility] Patient Portal on the FlyData. Simply click on Health Records under SCM-GL and then click on the [facility] logo. HOW TO SAFELY DISPOSE OF PRESCRIPTION MEDICATIONS Please use one of the following methods to safely dispose of your unused medications. 1.Use a drug disposal kit: the drug disposal pouch allows you to safely discard your old and unuseddrugs. Ask your nurse to give you one when you are discharged.2.Visit a local take-back location: Many local pharmacies and police departments have programs that collect old and unwanted prescriptiondrugs. Call your local pharmacy or go to http://bideo.com.[employer]/4P0Yd3o to find one close to you.3.Make use of household items: Use cat litter or old coffee grounds to dispose medications if other options arenot available. Mix your drugs with these household products, seal them in an airtight container andthrow it into the garbage. Call [facility]: [phone] to be sure your drugs can be disposed of in this way. Some medicines may require a different approach.4.Never flush your medications down the toilet. IF YOU HAVE BEEN PRESCRIBED AN OPIOIDS FOR PAIN If you have been prescribed an opioid (such as hydrocodone, oxycodone or morphine), it is critical to understand the possible side effects and risks of opioid pain medications. Even when taken as directed, opioids can have several side effects including: Tolerance, meaning you might need to take more of a medication for the same pain relief. Nausea, vomiting and/or constipation. Sleepiness, dizziness, dry mouth, confusion, depression or itching. Physical dependence, meaning you have withdrawal symptoms when a medication is stopped ? this can develop within a few days. KNOW YOUR RESPONSIBILITIES It is important to know exactly how much and how often to take the opioid pain medications you are prescribed. Never take opioids in higher amounts or more often than prescribed. Do not combine opioids with alcohol or other drugs that cause drowsiness, such as benzodiazepines, also known as benzos,including diazepam and alprazolam, muscle relaxants or sleep aids. Never sell or share prescriptionopioids. This is illegal. Store opioids in a secure place and out of reach of others (including children, family, friends and visitors). The last page(s) of this document has been signed and retained as a CHART COPY Signatures Patient Education Materials Atrial Fibrillation Medication Leaflets My discharge plan and instructions have been reviewed and explained to me and I,DORCAS ANGULO understand my current condition and have read and understand these discharge instructions. I have received a written copy of the plan/instructions. If I have questions, I am aware that I should contact my doctor. 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 The following is importantdischarge information regarding your hospital visit. Diagnosis from Today's Visit Atrial fibrillation Chest pain What to Do Next Instructions from Your Care Team Discharge Return to Work, School, or Sports (Return to Work, School, or Sports) - Ordered -- 01/30/23, May return to: work, 01/29/23 11:44:00 EDT Post Acute Orders No qualifying data available. You Need to Schedule the Following Appointments Follow Up with GIOVANNA FELICIANO When 01/29/2023 12:00 AM EDT Why: Schedule appointment as soon as possible Return to ED if symptoms worsen Take 400mg magnesium oxide daily Where: [address] [facility] [place] [address]- [phone] Business (1) Follow Up with LINA ZENDEJAS When Within 2-4 days Where: [facility] [address] [place] [address]- [phone] Business (1) Allergies predniSONE Bactrim Cigarette smoke Dilaudid HYDROmorphone (Unknown) codeine (HALLUCINATIONS) ibuprofen (Itching) iodinated radiocontrast dyes morphine (Itching) sulfa drugs sulfamethoxazole-trimethoprim (Eruption) Medications Please ask your primary doctor or pharmacist before taking any other medication not listed, including over the counter drugs, herbal medications, vitamins and or supplements as they may interact withyour home medications. What How Much When Instructions Last Dose Unchanged aspirin (aspirin 81 mg oral delayed release tablet) 1 tab(s) by mouth Every day Unchanged bumetanide (bumetanide 1 mg oral tablet) 1 tab(s) by mouth Every day as needed for Swelling/weight gain Unchanged cholecalciferol (Vitamin D3 1000 intl units oral tablet) 1 tab(s) by mouth Once a day Unchanged cyanocobalamin (Vitamin B12) 1,000 Microgram by mouth Once a day Unchanged desoximetasone topical (desoximetasone 0.05% topical cream) 1 application Topical Two (2) times a day as needed for Rash Unchanged dofetilide (dofetilide 250 mcg oral capsule) 2 cap by mouth Two (2) times a day Currently on hold for bradycardia SMS Unchanged metoprolol (metoprolol succinate 25 mg oral TABLET extended release) 0.5 tab(s) by mouth Once a day Do not crush or chew (controlled release) Unchanged potassium chloride 20 Milliequivalent by mouth As Directed Unchanged rivaroxaban (Xarelto 20 mg oral tablet) 1 tab(s) by mouth Once a day Unchanged tadalafil (Tadalafil (Eqv-Adcirca) 20 mg oral tablet) 1 tab(s) by mouth Once a day Unchanged vitamin E 100 International unit by mouth Once a day Please take this list to your next doctor s visit. Bring all medications you take, including over the counter medications, herbals and other supplements with you to your doctor s visit. Patients and families are reminded to discard old lists and to update any records with all medication providers or retail pharmacies. Education Materials Atrial Fibrillation Atrial fibrillation is a condition in which the heart beats in an irregular pattern. It is caused by a problem in the heart's electrical pathways. It can be a sign of heart disease or other health problems that affect the heart. Heart palpitations are the most common symptom of atrial fibrillation. This is the feeling that your heart is fluttering, beating fast, hard, or irregular. When the heart beats too fast, it doesn't pump blood very well. This can cause other symptoms like anxiety, fatigue, shortness of breath, chestpain, dizziness, or fainting. Atrial fibrillation may come and go. It can last from a few hours to a couple of days. Or, it may become chronic, lasting for months at a time or even become permanent. Atrial fibrillation may be caused by heart disease or other conditions in the body that affect the heart: Coronary artery disease (atherosclerosis) High blood pressure Disease of the heart valves Enlarged heart Heart failure Atrial fibrillation can also occur without heart disease because of: Overactive thyroid (hyperthyroid) Chronic lung disease (COPD, emphysema, bronchitis) Heavy alcohol use Cardiac stimulants like cocaine, amphetamines, diet pills, certain decongestant cold medicines, caffeine, or nicotine Infection Blood clot in the lung (pulmonary embolus) Diabetes Chronic kidney disease Obesity Extreme athletic conditioning Treating or removing these causes will help your treatment for atrial fibrillation. It will also make it less likely for the atrial fibrillation to come back. Atrial fibrillation can alternate back and forth with another abnormal rhythm called atrial flutter. Atrial flutter is a more regular heart rhythm and is also associated with an increased stroke risk. Proper treatment can lower your risk for stroke. Home care Follow these guidelines when caring for yourself at home: Go back to your usual activities as soon as you are feeling back to normal. If you smoke, stop smoking. Contact your healthcare provider or a local stop- smoking program for help. Don't use stimulants like alcohol, cocaine, amphetamines, diet pills, certain decongestant cold medicines, caffeine, or nicotine. If your provider prescribed medicine to stop atrial fibrillation from coming back, take it exactly as directed. Some medicines must be taken every day, not just when you have symptoms. This will helpthem work as they should. If you were prescribed warfarin to lower your risk for stroke, have your blood tested on a regular basis as advised by your provider. This will make sure you are getting the dose that is right for you. It also lower your risk for side effects. Follow-up care Follow up with your healthcare provider, or as advised. When to seek medical advice Call your healthcare provider right away if any of these following occur: Shortness of breath or swelling in the legs gets worse Unexpected weight gain Chest pain or the sense that your heart is fluttering or beating fast or hard (palpitations) Any sign of bleeding if you are on a blood thinner Pain, redness, or swelling in one leg Also call your provider right away if you have these signs of stroke: Weakness of an arm or leg or one side of the face Difficulty with speech or vision Extreme drowsiness, confusion, dizziness, or fainting [id number] [employer]. [address] [place] [address]. All rights reserved. This information is not intended as a substitute for professional medical care. Always follow yourhealthcare professional's instructions. Additional Information VACCINATE! IT SAVES LIVES! Members of the community who have not yet received the COVID-19 vaccine and would like to receive it can visit one of [facility] vaccine clinics. There are many vaccine clinic locations within the [facility]. For locations and available times, please visit www.[email or web address].[place].gov/. It is important to note that some COVID mobile vaccine clinics are held outdoors and may be canceled in rainy or stormy conditions. To learn more about pediatric vaccinations (ages 5-11), we invite you to visit the [facility] webpage. [email or web address]/[email or web address] learn more about the COVID-19 vaccine, we invite you to visit the CDC website for a list of frequently asked questions. https://www.cdc.gov/coronavirus/2019-ncov/vaccines/faq.html [facility] Patient Portal Access Instructions: Stay connected with your healthcare team and access your personal medical information anytime with the [facility] Patient Portal. If you would like a full copy of your medical records please contact the [facility] Medical Records Department Saturday through Saturday between 8a.m. and 4:30p.m. Please follow the directions below to access the portal: 1.Access the email account you provided upon registration to the [facility].2.Look for an invitation email from [facility].3.Open the email and access the invitation link: Accept Invitation to [facility]4.Fill in the required العلي to create your account. Sign into www.[employer] with your username and password that you created in the above steps to stay up to date. You can then view a summary of results, a summary of your visits, and the ability to download your summaries to your computer or send the information securely to a physician. Remember that your healthcare information is confidential, so carefully consider who you will allow to register on the [employer] [facility] Patient Portal for access to your information. You can also access the [employer] Patient Portal on the [employer]. Simply click on Health Records under [facility] and then click on the [employer] logo. HOW TO SAFELY DISPOSE OF PRESCRIPTION MEDICATIONS Please use one of the following methods to safely dispose of your unused medications. 1.Use a drug disposal kit: the drug disposal pouch allows you to safely discard your old and unuseddrugs. Ask your nurse to give you one when you are discharged.2.Visit a local take-back location: Many local pharmacies and police departments have programs that collect old and unwanted prescriptiondrugs. Call your local pharmacy or go to http://bideo.com.[employer]/5F0Yc0i to find one close to you.3.Make use of household items: Use cat litter or old coffee grounds to dispose medications if other options arenot available. Mix your drugs with these household products, seal them in an airtight container andthrow it into the garbage. Call [facility]: [phone] to be sure your drugs can be disposed of in this way. Some medicines may require a different approach.4.Never flush your medications down the toilet. IF YOU HAVE BEEN PRESCRIBED AN OPIOIDS FOR PAIN If you have been prescribed an opioid (such as hydrocodone, oxycodone or morphine), it is critical to understand the possible side effects and risks of opioid pain medications. Even when taken as directed, opioids can have several side effects including: Tolerance, meaning you might need to take more of a medication for the same pain relief. Nausea, vomiting and/or constipation. Sleepiness, dizziness, dry mouth, confusion, depression or itching. Physical dependence, meaning you have withdrawal symptoms when a medication is stopped ? this can develop within a few days. KNOW YOUR RESPONSIBILITIES It is important to know exactly how much and how often to take the opioid pain medications you are prescribed. Never take opioids in higher amounts or more often than prescribed. Do not combine opioids with alcohol or other drugs that cause drowsiness, such as benzodiazepines, also known as benzos,including diazepam and alprazolam, muscle relaxants or sleep aids. Never sell or share prescriptionopioids. This is illegal. Store opioids in a secure place and out of reach of others (including children, family, friends and visitors). The last page(s) of this document has been signed and retained as a CHART COPY Signatures Patient Education Materials Atrial Fibrillation Medication Leaflets My discharge plan and instructions have been reviewed and explained to me and I,KEV DORCAS Siri understand my current condition and have read and understand these discharge instructions. I have received a written copy of the plan/instructions. If I have questions, I am aware that I should contact my doctor. 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 Sometimes the cause can't be determined. If your condition does not seem serious, and your pain does not appear to be coming from your heart, your healthcare provider may recommend watching it closely. Sometimes the signs of a serious problem take moretime to appear. Many problems not related to your heart can cause chest pain. These include: Musculoskeletal. Costochondritis is an inflammation of the tissues around the ribs that can occur from trauma or overuse injuries, or a strain of the muscles of the chest wall Respiratory. Pneumonia, collapsed lung (pneumothorax), or inflammation of the lining of the chest and lungs (pleurisy) Gastrointestinal. Esophageal reflux, heartburn, ulcers, or gallbladder disease Anxiety and panic disorders Nerve compression and inflammation Rare miscellaneous problems such as aortic aneurysm (a swelling of the large artery coming out of the heart) or pulmonary embolism (a blood clot in the lungs) Home care After your visit, follow these recommendations: Rest today and avoid strenuous activity. Take any prescribed medicine as directed. Be aware of any recurrent chest pain and notice any changes Follow-up care Follow up with your healthcare provider if you do not start to feel better within 24 hours, or as advised. Call 911 Call 911 if any of these occur: A change in the type of pain: if it feels different, becomes more severe, lasts longer, or begins to spread into your shoulder, arm, neck, jaw or back Shortness of breath or increased pain with breathing Weakness, dizziness, or fainting Rapid heart beat Crushing sensation in your chest When to seek medical advice Call your healthcare provider right away if any of the following occur: Cough with dark colored sputum (phlegm) or blood Fever of 100.4 F (38 C) or higher, or as directed by your healthcare provider Swelling, pain or redness in one leg [phone] [employer]. [address] [place] [address]. All rights reserved. This information is not intended as a substitute for professional medical care. Always follow yourhealthcare professional's instructions. 10/13/2022 15:23:23 Atrial Fibrillation Atrial Fibrillation Atrial fibrillation is a condition in which the heart beats in an irregular pattern. It is caused by a problem in the heart's electrical pathways. It can be a sign of heart disease or other health problems that affect the heart. Heart palpitations are the most common symptom of atrial fibrillation. This is the feeling that your heart is fluttering, beating fast, hard, or irregular. When the heart beats too fast, it doesn't pump blood very well. This can cause other symptoms like anxiety, fatigue, shortness of breath, chestpain, dizziness, or fainting. Atrial fibrillation may come and go. It can last from a few hours to a couple of days. Or, it may become chronic, lasting for months at a time or even become permanent. Atrial fibrillation may be caused by heart disease or other conditions in the body that affect the heart: Coronary artery disease (atherosclerosis) High blood pressure Disease of the heart valves Enlarged heart Heart failure Atrial fibrillation can also occur without heart disease because of: Overactive thyroid (hyperthyroid) Chronic lung disease (COPD, emphysema, bronchitis) Heavy alcohol use Cardiac stimulants like cocaine, amphetamines, diet pills, certain decongestant cold medicines, caffeine, or nicotine Infection Blood clot in the lung (pulmonary embolus) Diabetes Chronic kidney disease Obesity Extreme athletic conditioning Treating or removing these causes will help your treatment for atrial fibrillation. It will also make it less likely for the atrial fibrillation to come back. Atrial fibrillation can alternate back and forth with another abnormal rhythm called atrial flutter. Atrial flutter is a more regular heart rhythm and is also associated with an increased stroke risk. Proper treatment can lower your risk for stroke. Home care Follow these guidelines when caring for yourself at home: Go back to your usual activities as soon as you are feeling back to normal. If you smoke, stop smoking. Contact your healthcare provider or a local stop- smoking program for help. Don't use stimulants like alcohol, cocaine, amphetamines, diet pills, certain decongestant cold medicines, caffeine, or nicotine. If your provider prescribed medicine to stop atrial fibrillation from coming back, take it exactly as directed. Some medicines must be taken every day, not just when you have symptoms. This will helpthem work as they should. If you were prescribed warfarin to lower your risk for stroke, have your blood tested on a regular basis as advised by your provider. This will make sure you are getting the dose that is right for you. It also lower your risk for side effects. Follow-up care Follow up with your healthcare provider, or as advised. When to seek medical advice Call your healthcare provider right away if any of these following occur: Shortness of breath or swelling in the legs gets worse Unexpected weight gain Chest pain or the sense that your heart is fluttering or beating fast or hard (palpitations) Any sign of bleeding if you are on a blood thinner Pain, redness, or swelling in one leg Also call your provider right away if you have these signs of stroke: Weakness of an arm or leg or one side of the face Difficulty with speech or vision Extreme drowsiness, confusion, dizziness, or fainting [phone] [employer]. [address] [place] [address], [place] [address]. All rights reserved. This information is not intended as a substitute for professional medical care. Always follow yourhealthcare professional's instructions. Follow Up Care 10/13/2022 09:56:00 With:GIOVANNA FELICIANO Address: [address] [facility] [address] [place] [address] [phone] Business (1) When:2-4 days With:MACI HARDY Address: [address] [facility] [address] [place] [address] [phone] Business (1) When:2-4 days With:LINA ZENDEJAS Address: [facility] [address] [place] [phone] [phone] Business (1) When:2-4 days [facility] 01-21-2023 Emergency department Discharge summary Discharge Instructions Thank you for allowing [facility] to assist you with your healthcare needs. The following is importantdischarge information regarding your hospital visit. Diagnosis from Today's Visit Atrial fibrillation Chest pain Heart rate fast What to Do Next Instructions from Your Care Team No qualifying data available. Post Acute Orders No qualifying data available. You Need to Schedule the Following Appointments Follow Up with GIOVANNA FELICIANO When Within 2-4 days Where: [address] [facility] [address] [place] [address] [phone] Business (1) Follow Up with MACI HARDY When Within 2-4 days Where: [address] [facility] [address] [place] [address]- [phone] Business (1) Follow Up with LINA ZENDEJAS When Within 2-4 days Where: [facility] [address] [place] [phone]- [phone] Business (1) Allergies predniSONE Bactrim Cigarette smoke Dilaudid HYDROmorphone (Unknown) codeine (HALLUCINATIONS) ibuprofen (Itching) iodinated radiocontrast dyes morphine (Itching) sulfa drugs sulfamethoxazole-trimethoprim (Eruption) Medications Please ask your primary doctor or pharmacist before taking any other medication not listed, including over the counter drugs, herbal medications, vitamins and or supplements as they may interact withyour home medications. What How Much When Instructions Last Dose New dilTIAZem (DilTIAZem (Eqv-Cardizem CD) 120 mg/ 24 hours oral capsule, extended release) 1 cap by mouth Once a day Duration: 30 Days Pickup at [facility] #[id number] Unchanged aspirin (aspirin 81 mg oral delayed release tablet) 1 tab(s) by mouth Every day Unchanged bumetanide (bumetanide 1 mg oral tablet) 1 tab(s) by mouth Every day as needed for Swelling/weight gain Unchanged cholecalciferol (Vitamin D3 1000 intl units oral tablet) 1 tab(s) by mouth Once a day Unchanged cyanocobalamin (Vitamin B12) 1,000 Microgram by mouth Once a day Unchanged desoximetasone topical (desoximetasone 0.05% topical cream) 1 application Topical Two (2) times a day as needed for Rash Unchanged dofetilide (dofetilide 500 mcg oral capsule) 1 cap by mouth Every 12 hours Unchanged metoprolol (metoprolol succinate 25 mg oral TABLET extended release) 0.5 tab(s) by mouth Once a day Do not crush or chew (controlled release) Unchanged potassium chloride 20 Milliequivalent by mouth As Directed Unchanged rivaroxaban (Xarelto 20 mg oral tablet) 1 tab(s) by mouth Daily at bedtime Begin taking Unchanged tadalafil (Tadalafil (Eqv-Adcirca) 20 mg oral tablet) 1 tab(s) by mouth Once a day Unchanged vitamin E 100 International unit by mouth Once a day Pharmacy Information [facility] #[id number]: [address] [place], [place] [phone] Please take this list to your next doctor s visit. Bring all medications you take, including over the counter medications, herbals and other supplements with you to your doctor s visit. Patients and families are reminded to discard old lists and to update any records with all medication providers or retail pharmacies. Education Materials Uncertain Causes of Chest Pain Chest pain can happen for a number of reasons. Sometimes the cause can't be determined. If your condition does not seem serious, and your pain does not appear to be coming from your heart, your healthcare provider may recommend watching it closely. Sometimes the signs of a serious problem take moretime to appear. Many problems not related to your heart can cause chest pain. These include: Musculoskeletal. Costochondritis is an inflammation of the tissues around the ribs that can occur from trauma or overuse injuries, or a strain of the muscles of the chest wall Respiratory. Pneumonia, collapsed lung (pneumothorax), or inflammation of the lining of the chest and lungs (pleurisy) Gastrointestinal. Esophageal reflux, heartburn, ulcers, or gallbladder disease Anxiety and panic disorders Nerve compression and inflammation Rare miscellaneous problems such as aortic aneurysm (a swelling of the large artery coming out of the heart) or pulmonary embolism (a blood clot in the lungs) Home care After your visit, follow these recommendations: Rest today and avoid strenuous activity. Take any prescribed medicine as directed. Be aware of any recurrent chest pain and notice any changes Follow-up care Follow up with your healthcare provider if you do not start to feel better within 24 hours, or as advised. Call 911 Call 911 if any of these occur: A change in the type of pain: if it feels different, becomes more severe, lasts longer, or begins to spread into your shoulder, arm, neck, jaw or back Shortness of breath or increased pain with breathing Weakness, dizziness, or fainting Rapid heart beat Crushing sensation in your chest When to seek medical advice Call your healthcare provider right away if any of the following occur: Cough with dark colored sputum (phlegm) or blood Fever of 100.4 F (38 C) or higher, or as directed by your healthcare provider Swelling, pain or redness in one leg [phone] [employer]. [address] [place] [address]. All rights reserved. This information is not intended as a substitute for professional medical care. Always follow yourhealthcare professional's instructions. Atrial Fibrillation Atrial fibrillation is a condition in which the heart beats in an irregular pattern. It is caused by a problem in the heart's electrical pathways. It can be a sign of heart disease or other health problems that affect the heart. Heart palpitations are the most common symptom of atrial fibrillation. This is the feeling that your heart is fluttering, beating fast, hard, or irregular. When the heart beats too fast, it doesn't pump blood very well. This can cause other symptoms like anxiety, fatigue, shortness of breath, chestpain, dizziness, or fainting. Atrial fibrillation may come and go. It can last from a few hours to a couple of days. Or, it may become chronic, lasting for months at a time or even become permanent. Atrial fibrillation may be caused by heart disease or other conditions in the body that affect the heart: Coronary artery disease (atherosclerosis) High blood pressure Disease of the heart valves Enlarged heart Heart failure Atrial fibrillation can also occur without heart disease because of: Overactive thyroid (hyperthyroid) Chronic lung disease (COPD, emphysema, bronchitis) Heavy alcohol use Cardiac stimulants like cocaine, amphetamines, diet pills, certain decongestant cold medicines, caffeine, or nicotine Infection Blood clot in the lung (pulmonary embolus) Diabetes Chronic kidney disease Obesity Extreme athletic conditioning Treating or removing these causes will help your treatment for atrial fibrillation. It will also make it less likely for the atrial fibrillation to come back. Atrial fibrillation can alternate back and forth with another abnormal rhythm called atrial flutter. Atrial flutter is a more regular heart rhythm and is also associated with an increased stroke risk. Proper treatment can lower your risk for stroke. Home care Follow these guidelines when caring for yourself at home: Go back to your usual activities as soon as you are feeling back to normal. If you smoke, stop smoking. Contact your healthcare provider or a local stop- smoking program for help. Don't use stimulants like alcohol, cocaine, amphetamines, diet pills, certain decongestant cold medicines, caffeine, or nicotine. If your provider prescribed medicine to stop atrial fibrillation from coming back, take it exactly as directed. Some medicines must be taken every day, not just when you have symptoms. This will helpthem work as they should. If you were prescribed warfarin to lower your risk for stroke, have your blood tested on a regular basis as advised by your provider. This will make sure you are getting the dose that is right for you. It also lower your risk for side effects. Follow-up care Follow up with your healthcare provider, or as advised. When to seek medical advice Call your healthcare provider right away if any of these following occur: Shortness of breath or swelling in the legs gets worse Unexpected weight gain Chest pain or the sense that your heart is fluttering or beating fast or hard (palpitations) Any sign of bleeding if you are on a blood thinner Pain, redness, or swelling in one leg Also call your provider right away if you have these signs of stroke: Weakness of an arm or leg or one side of the face Difficulty with speech or vision Extreme drowsiness, confusion, dizziness, or fainting [phone] [employer]. [address] [place] [address]383. All rights reserved. This information is not intended as a substitute for professional medical care. Always follow yourhealthcare professional's instructions. Additional Information VACCINATE! IT SAVES LIVES! Members of the community who have not yet received the COVID-19 vaccine and would like to receive it can visit one of [facility] vaccine clinics. There are many vaccine clinic locations within the [facility]. For locations and available times, please visit [email or web address]. It is important to note that some COVID mobile vaccine clinics are held outdoors and may be canceled in rainy orstormy conditions. To learn more about pediatric vaccinations (ages 5-11), we invite you to visit the [employer] webpage. [email or web address] learn more about the COVID-19 vaccine, we invite you to visit the [facility] website for a list of frequently asked questions. [email or web address] [facility] Patient Portal Access Instructions: Stay connected with your healthcare team and access your personal medical information anytime with the [facility] Patient Portal. If you would like a full copy of your medical records please contact the [facility] Medical Records Department Saturday through Saturday between 8a.m. and 4:30p.m. Please follow the directions below to access the portal: 1.Access the email account you provided upon registration to the [facility].2.Look for an invitation email from [facility].3.Open the email and access the invitation link: Accept Invitation to [facility]4.Fill in the required العلي to create your account. Sign into www.[employer] with your username and password that you created in the above steps to stay up to date. You can then view a summary of results, a summary of your visits, and the ability to download your summaries to your computer or send the information securely to a physician. Remember that your healthcare information is confidential, so carefully consider who you will allow to register on the [facility] Patient Portal for access to your information. You can also access the [facility] Patient Portal on the [employer]. Simply click on Health Records under SCM-GL and then click on the [employer] logo. HOW TO SAFELY DISPOSE OF PRESCRIPTION MEDICATIONS Please use one of the following methods to safely dispose of your unused medications. 1.Use a drug disposal kit: the drug disposal pouch allows you to safely discard your old and unuseddrugs. Ask your nurse to give you one when you are discharged.2.Visit a local take-back location: Many local pharmacies and police departments have programs that collect old and unwanted prescriptiondrugs. Call your local pharmacy or go to http://bideo.com.[employer]/3W4Og2q to find one close to you.3.Make use of household items: Use cat litter or old coffee grounds to dispose medications if other options arenot available. Mix your drugs with these household products, seal them in an airtight container andthrow it into the garbage. Call [facility]: [phone] to be sure your drugs can be disposed of in this way. Some medicines may require a different approach.4.Never flush your medications down the toilet. IF YOU HAVE BEEN PRESCRIBED AN OPIOIDS FOR PAIN If you have been prescribed an opioid (such as hydrocodone, oxycodone or morphine), it is critical to understand the possible side effects and risks of opioid pain medications. Even when taken as directed, opioids can have several side effects including: Tolerance, meaning you might need to take more of a medication for the same pain relief. Nausea, vomiting and/or constipation. Sleepiness, dizziness, dry mouth, confusion, depression or itching. Physical dependence, meaning you have withdrawal symptoms when a medication is stopped ? this can develop within a few days. KNOW YOUR RESPONSIBILITIES It is important to know exactly how much and how often to take the opioid pain medications you are prescribed. Never take opioids in higher amounts or more often than prescribed. Do not combine opioids with alcohol or other drugs that cause drowsiness, such as benzodiazepines, also known as benzos,including diazepam and alprazolam, muscle relaxants or sleep aids. Never sell or share prescriptionopioids. This is illegal. Store opioids in a secure place and out of reach of others (including children, family, friends and visitors). The last page(s) of this document has been signed and retained as a CHART COPY Signatures Patient Education Materials Chest Pain, Uncertain Cause Atrial Fibrillation Medication Leaflets My discharge plan and instructions have been reviewed and explained to me and I,DORCAS ANGULO understand my current condition and have read and understand these discharge instructions. I have received a written copy of the plan/instructions. If I have questions, I am aware that I should contact my doctor. 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 No consolidation, atelectasis or pleural fluid seen. No acute osseous finding. IMPRESSION: No acute process. Interpreted by: Jamar Bingham MD Preliminary Report By: Jamar Bingham MD Electronically signed By Jamar Bingham MD Dictated Date: 10/13/2022 10:18:21 AM Prelim Date: 10/13/2022 10:18:42 AM Sign Date: 10/13/2022 10:18:42 AM Ordering Provider: RICHARD GILL [id number] Note ORIGINAL EXAMINATION: ONE XRAY VIEW OF THE CHEST 10/13/2022 10:17 am COMPARISON: July 31, 2022 HISTORY: ORDERING SYSTEM PROVIDED HISTORY: Reason for Exam: pain/palpitations FINDINGS: The heart is normal in size and there is no vascular congestion present. No consolidation, atelectasis or pleural fluid seen. No acute osseous finding. IMPRESSION: No acute process. Interpreted by: Jamar Bingham MD Preliminary Report By: Jamar Bingham MD Electronically signed By Jamar Bingham MD Dictated Date: 10/13/2022 10:18:21 AM Prelim Date: 10/13/2022 10:18:42 AM Sign Date: 10/13/2022 10:18:42 AM Ordering Provider: [facility]DMANJEET [facility]OM[id number] Discharge summary Discharge Diagnosis Longstanding persistent atrial fibrillation (I48.11 - ICD-10-CM) Chronic diastolic (congestive) heart failure (I50.32 - ICD-10-CM) Pulmonary hypertension, unspecified (I27.20 - ICD-10-CM) Obstructive sleep apnea (adult) (pediatric) (G47.33 - ICD-10-CM) Atherosclerotic heart disease of [place] coronary artery without angina pectoris (I25.10 - ICD-10-CM) Additional Orders: Ordered: Discharge,10/11/22 12:06:00 EST, Discharged to: Home Ordered: Discharge Activity,NO activity restrictions, 10/11/22 12:06:00 EST Ordered: Discharge Diet,No changes were made to your diet during your hospital stay. Please resume your pre hospitalization diet on discharge., 10/11/22 12:06:00 EST Discontinued: dofetilide 250 mcg oral capsule,Dose : 250 mcg = 1 cap(s), Oral, q12hr, # 180 cap(s),0 Refill(s), Pharmacy: [facility] #[id number], 167.6, cm, 10/08/22 8:33:00 EST, Height Ordered: dofetilide 500 mcg oral capsule,Dose : 500 mcg = 1 cap(s), Oral, q12h, # 180 cap(s), 0 Refill(s), Pharmacy: [facility] #[id number], 167.6, cm, 10/08/22 8:33:00 EST, Height Ordered: magnesium oxide,Start: 10/11/22 9:00:00 EST, Dose = 400 mg, = 1 tab(s), Oral, TID, 3 dose(s), Stop: 10/11/22 22:00:00 EST, 10/11/22 8:43:00 EST Ordered: magnesium oxide 400 mg oral tablet,Dose : 400 mg = 1 tab(s), Oral, TID, X 2 day(s), # 6 tab(s), 0 Refill(s), 10/13/22 8:43:00 EST, [id number], 167.6, cm, 10/08/22 8:33:00 EST, Height Hospital Course Longstanding persistent nonvalvular AF [id number] 2 s/p DCCV 10/09/2022 Chronic diastolic heart failure ASD s/p percutaneous closure 07/2022 Pulmonary hypertension on tadalafil FARSHAD on CPAP CVC: Braden 62-year-old woman with longstanding persistent AF, failed DCCV 06/2022, admitted for dofetilide meeting and cardioversion electively. She is free of any cardiac symptoms, was adequately rate controlled on admission. Underwent dofetilide dosing with 125 mg P Q12H starting dose, underwent successful DCCV on D2 of admission, was increased gradually to 500 mg PO Q12H, QTc remained within acceptable range, patient tolerated medication well. Discharged home in stable condition. Discussed with Dr. Patrick Hernandez MD Furniture [employer] or Pager [phone] Allergies predniSONE Bactrim Cigarette smoke Dilaudid HYDROmorphone (Unknown) codeine (HALLUCINATIONS) ibuprofen (Itching) iodinated radiocontrast dyes morphine (Itching) sulfa drugs sulfamethoxazole-trimethoprim (Eruption) Consults No qualifying data available. Physical Exam Vitals and Measurements T: 36.7 C (Oral) TMIN: 36.7 C (Oral) TMAX: 37.2 C (Oral) HR: 72(Monitored) RR: 15 BP: 102/66 SpO2: 95% Weight Dosing Weight: 80.8 kg (10/08/22) Code Status Code Status - Ordered -- 10/08/22 8:55:00 EST, Full Code, Constant Order Admission Date 10/08/2022 Discharge Date 10/11/2022 Medications New Prescription dofetilide (dofetilide 500 mcg oral capsule)1 cap by mouth every 12 hours. Refills: 0. magnesium oxide (magnesium oxide 400 mg oral tablet)1 tab(s) by mouth three (3) times a day for 2 Days. Refills: 0. Unchanged aspirin (aspirin 81 mg oral delayed release tablet)1 tab(s) by mouth every day. Refills: 0. bumetanide (bumetanide 1 mg oral tablet)1 tab(s) by mouth every day as needed Swelling/weight gain.Refills: 2. cholecalciferol (Vitamin D3 1000 intl units oral tablet)1 tab(s) by mouth once a day. cyanocobalamin (Vitamin B12)1,000 Microgram by mouth once a day. desoximetasone topical (desoximetasone 0.05% topical cream)1 application Topical two (2) times a day as needed Rash. metoprolol (metoprolol succinate 25 mg oral TABLET extended release)0.5 tab(s) by mouth once a day.Do not crush or chew (controlled release). Refills: 6. potassium [id number] Milliequivalent by mouth As Directed. rivaroxaban (Xarelto 20 mg oral tablet)1 tab(s) by mouth daily at bedtime. Begin taking 08/09/22. tadalafil (Tadalafil (Eqv-Adcirca) 20 mg oral tablet)1 tab(s) by mouth once a day. Refills: 0. vitamin E100 International unit by mouth once a day. Follow Up Follow Up with MACI HARDY MD When 10/24/2022 02:00 PM EST Where: [address] [facility] [address] [facility] [place] [address]- [phone] Follow Up with LINA ZENDEJAS MD, [facility], Internal Medicine When Why: PLEASE CALL THIS OFFICE TO SCHEDULE A HOSPITAL FOLLOW UP APPOINTMENT. Where: [facility] [address] [place], [place] [address]- [phone] Follow Up Appointments No qualifying data available. Follow Up Labs/Studies Discharge Labs No Follow-up Labs Discharge Studies No Follow-up Studies Discharge Diet Discharge Diet - Ordered -- No changes were made to your diet during your hospital stay. Please resume your pre hospitalization diet on discharge., 10/11/22 12:06:00 EST Discharge Activity Discharge Activity - Ordered -- NO activity restrictions, 10/11/22 12:06:00 EST Digitally Signed by MAYO HERNANDEZ MD on 10/11/2022 12:09 PM [id number] Hospital Discharge instructions Patient Education 10/11/2022 12:10:12 Atrial Fibrillation Atrial Fibrillation Atrial fibrillation is a type of irregular or rapid heartbeat (arrhythmia). In atrial fibrillation,the top part of the heart (atria) quivers in a chaotic pattern. This makes the heart unable to pumpblood normally. Having atrial fibrillation can increase your risk for other health problems, such as: Blood can pool in the atria and form clots. If a clot travels to the brain, it can cause a stroke. The heart muscle may weaken from the irregular blood flow. This can cause heart failure. Atrial fibrillation may start suddenly and stop on its own, or it may become a long-lasting problem. What are the causes? This condition is caused by some heart-related conditions or procedures, including: High blood pressure. This is the most common cause. Heart failure. Heart valve conditions. Inflammation of the sac that surrounds the heart (pericarditis). Heart surgery. Coronary artery disease. Certain heart rhythm disorders, such as Gomez Parkinson White syndrome. Other causes include: Pneumonia. Obstructive sleep apnea. Lung cancer. Thyroid problems, especially if the thyroid is overactive (hyperthyroidism). Excessive alcohol or drug use. Sometimes, the cause of this condition is not known. What increases the risk? This condition is more likely to develop in: Older people. People who smoke. People who have diabetes mellitus. People who are overweight (obese). Athletes who exercise vigorously. People who have a family history. What are the signs or symptoms? Symptoms of this condition include: A feeling that your heart is beating rapidly or irregularly. A feeling of discomfort or pain in your chest. Shortness of breath. Sudden light-headedness or weakness. Getting tired easily during exercise. In some cases, there are no symptoms. How is this diagnosed? Your health care provider may be able to detect atrial fibrillation when taking your pulse. If detected, this condition may be diagnosed with: Electrocardiogram (ECG). Ambulatory ekg monitor tech. This device records your heartbeats for 24 hours or more. Transthoracic echocardiogram (TTE) to evaluate how blood flows through your heart. Transesophageal echocardiogram (ANTON) to view more detailed images of your heart. A stress test. Imaging tests, such as a CT scan or chest X-ray. Blood tests. How is this treated? This condition may be treated with: Medicines to slow down the heart rate or bring the heart's rhythm back to normal. Medicines to prevent blood clots from forming. Electrical cardioversion. This delivers a low-energy shock to the heart to reset its rhythm. Ablation. This procedure destroys the part of the heart tissue that sends abnormal signals. Left atrial appendage occlusion/excision. This seals off a common place in the atria where blood clots can form (left atrial appendage). The goal of treatment is to prevent blood clots from forming and to keep your heart beating at a normal rate and rhythm. Treatment depends on underlying medical conditions and how you feel when you are experiencing fibrillation. Follow these instructions at home: Medicines Take over-the counter and prescription medicines only as told by your health care provider. If your health care provider prescribed a blood-thinning medicine (anticoagulant), take it exactly as told. Taking too much blood-thinning medicine can cause bleeding. Taking too little can enable a blood clot to form and travel to the brain, causing a stroke. Lifestyle Do not use any products that contain nicotine or tobacco, such as cigarettes and e-cigarettes. If you need help quitting, ask your health care provider. Do not drink beverages that contain caffeine, such as coffee, soda, and tea. Follow diet instructions as told by your health care provider. Exercise regularly as told by your health care provider. Do not drink alcohol. General instructions If you have obstructive sleep apnea, manage your condition as told by your health care provider. Maintain a healthy weight. Do not use diet pills unless your health care provider approves. Diet pills may make heart problems worse. Keep all follow-up visits as told by your health care provider. This is important. Contact a health care provider if you: Notice a change in the rate, rhythm, or strength of your heartbeat. Are taking an anticoagulant and you notice increased bruising. Tire more easily when you exercise or exert yourself. Have a sudden change in weight. Get help right away if you have: Chest pain, abdominal pain, sweating, or weakness. Difficulty breathing. Blood in your vomit, stool (feces), or urine. Any symptoms of a stroke. BE FAST is an easy way to remember the main warning signs of a stroke: ?B - Balance. Signs are dizziness, sudden trouble walking, or loss of balance. ?E - Eyes. Signs are trouble seeing or a sudden change in vision. ?F - Face. Signs are sudden weakness or numbness of the face, or the face or eyelid drooping on oneside. ?A - Arms. Signs are weakness or numbness in an arm. This happens suddenly and usually on one side of the body. ?S - Speech. Signs are sudden trouble speaking, slurred speech, or trouble understanding what people say. ?T - Time. Time to call emergency services. Write down what time symptoms started. Other signs of a stroke, such as: ?A sudden, severe headache with no known cause. ?Nausea or vomiting. ?Seizure. These symptoms may represent a serious problem that is an emergency. Do not wait to see if the symptoms will go away. Get medical help right away. Call your local emergency services (911 in the [place] Do not drive yourself to the hospital. Summary Atrial fibrillation is a type of irregular or rapid heartbeat (arrhythmia). Symptoms include a feeling that your heart is beating fast or irregularly. In some cases, you may not have symptoms. The condition is treated with medicines to slow down the heart rate or bring the heart's rhythm back to normal. You may also need blood-thinning medicines to prevent blood clots. Get help right away if you have symptoms or signs of a stroke. This information is not intended to replace advice given to you by your health care provider. Make sure you discuss any questions you have with your health care provider. Document Released: 09/09/2006 Document Revised: 10/30/2018 Document Reviewed: 10/31/2018 [employer] Patient Education 2020 [employer]. 10/11/2022 12:10:05 Atrial Fibrillation Atrial Fibrillation Atrial fibrillation is a type of irregular or rapid heartbeat (arrhythmia). In atrial fibrillation,the top part of the heart (atria) quivers in a chaotic pattern. This makes the heart unable to pumpblood normally. Having atrial fibrillation can increase your risk for other health problems, such as: Blood can pool in the atria and form clots. If a clot travels to the brain, it can cause a stroke. The heart muscle may weaken from the irregular blood flow. This can cause heart failure. Atrial fibrillation may start suddenly and stop on its own, or it may become a long-lasting problem. What are the causes? This condition is caused by some heart-related conditions or procedures, including: High blood pressure. This is the most common cause. Heart failure. Heart valve conditions. Inflammation of the sac that surrounds the heart (pericarditis). Heart surgery. Coronary artery disease. Certain heart rhythm disorders, such as Gomez Parkinson White syndrome. Other causes include: Pneumonia. Obstructive sleep apnea. Lung cancer. Thyroid problems, especially if the thyroid is overactive (hyperthyroidism). Excessive alcohol or drug use. Sometimes, the cause of this condition is not known. What increases the risk? This condition is more likely to develop in: Older people. People who smoke. People who have diabetes mellitus. People who are overweight (obese). Athletes who exercise vigorously. People who have a family history. What are the signs or symptoms? Symptoms of this condition include: A feeling that your heart is beating rapidly or irregularly. A feeling of discomfort or pain in your chest. Shortness of breath. Sudden light-headedness or weakness. Getting tired easily during exercise. In some cases, there are no symptoms. How is this diagnosed? Your health care provider may be able to detect atrial fibrillation when taking your pulse. If detected, this condition may be diagnosed with: Electrocardiogram (ECG). Ambulatory ekg monitor tech. This device records your heartbeats for 24 hours or more. Transthoracic echocardiogram (TTE) to evaluate how blood flows through your heart. Transesophageal echocardiogram (ANTON) to view more detailed images of your heart. A stress test. Imaging tests, such as a CT scan or chest X-ray. Blood tests. How is this treated? This condition may be treated with: Medicines to slow down the heart rate or bring the heart's rhythm back to normal. Medicines to prevent blood clots from forming. Electrical cardioversion. This delivers a low-energy shock to the heart to reset its rhythm. Ablation. This procedure destroys the part of the heart tissue that sends abnormal signals. Left atrial appendage occlusion/excision. This seals off a common place in the atria where blood clots can form (left atrial appendage). The goal of treatment is to prevent blood clots from forming and to keep your heart beating at a normal rate and rhythm. Treatment depends on underlying medical conditions and how you feel when you are experiencing fibrillation. Follow these instructions at home: Medicines Take over-the counter and prescription medicines only as told by your health care provider. If your health care provider prescribed a blood-thinning medicine (anticoagulant), take it exactly as told. Taking too much blood-thinning medicine can cause bleeding. Taking too little can enable a blood clot to form and travel to the brain, causing a stroke. Lifestyle Do not use any products that contain nicotine or tobacco, such as cigarettes and e-cigarettes. If you need help quitting, ask your health care provider. Do not drink beverages that contain caffeine, such as coffee, soda, and tea. Follow diet instructions as told by your health care provider. Exercise regularly as told by your health care provider. Do not drink alcohol. General instructions If you have obstructive sleep apnea, manage your condition as told by your health care provider. Maintain a healthy weight. Do not use diet pills unless your health care provider approves. Diet pills may make heart problems worse. Keep all follow-up visits as told by your health care provider. This is important. Contact a health care provider if you: Notice a change in the rate, rhythm, or strength of your heartbeat. Are taking an anticoagulant and you notice increased bruising. Tire more easily when you exercise or exert yourself. Have a sudden change in weight. Get help right away if you have: Chest pain, abdominal pain, sweating, or weakness. Difficulty breathing. Blood in your vomit, stool (feces), or urine. Any symptoms of a stroke. BE FAST is an easy way to remember the main warning signs of a stroke: ?B - Balance. Signs are dizziness, sudden trouble walking, or loss of balance. ?E - Eyes. Signs are trouble seeing or a sudden change in vision. ?F - Face. Signs are sudden weakness or numbness of the face, or the face or eyelid drooping on oneside. ?A - Arms. Signs are weakness or numbness in an arm. This happens suddenly and usually on one side of the body. ?S - Speech. Signs are sudden trouble speaking, slurred speech, or trouble understanding what people say. ?T - Time. Time to call emergency services. Write down what time symptoms started. Other signs of a stroke, such as: ?A sudden, severe headache with no known cause. ?Nausea or vomiting. ?Seizure. These symptoms may represent a serious problem that is an emergency. Do not wait to see if the symptoms will go away. Get medical help right away. Call your local emergency services (911 in the [place] Do not drive yourself to the hospital. Summary Atrial fibrillation is a type of irregular or rapid heartbeat (arrhythmia). Symptoms include a feeling that your heart is beating fast or irregularly. In some cases, you may not have symptoms. The condition is treated with medicines to slow down the heart rate or bring the heart's rhythm back to normal. You may also need blood-thinning medicines to prevent blood clots. Get help right away if you have symptoms or signs of a stroke. This information is not intended to replace advice given to you by your health care provider. Make sure you discuss any questions you have with your health care provider. Document Released: 09/09/2006 Document Revised: 10/30/2018 Document Reviewed: 10/31/2018 [employer] Patient Education 2020 [employer]. Follow Up Care 10/08/2022 08:00:02 With:LINA ZENDEJAS MD, [facility], Internal Medicine Address: [facility] [address] [place] [phone] When: Unknown Comments:PLEASE CALL THIS OFFICE TO SCHEDULE A HOSPITAL FOLLOW UP APPOINTMENT. With:MACI HARDY MD Address: [address] [facility] [address] [place] [address]- [phone] When:10/24/2022 14:00:00 [facility] 01-19-2023 Note Discharge Instructions Thank you for allowing [facility] to assist you with your healthcare needs. The following is importantdischarge information regarding your hospital visit. 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 Where: [facility] [address] [place] [phone]- [phone] The Following Activity and Diet Have Been Ordered for You Discharge Activity - Ordered -- NO activity restrictions, 10/11/22 12:06:00 EST Discharge Diet - Ordered -- No changes were made to your diet during your hospital stay. Please resume your pre hospitalization diet on discharge., 10/11/22 12:06:00 EST The Following Equipment Has Been Ordered for You No qualifying data available. The Following Treatments Have Been Ordered for You Discharge Labs No qualifying data available. Discharge Radiology No qualifying data available. Other Therapies No qualifying data available. Post Acute Orders No qualifying data available. Someone Will Contact You Regarding These Home Health Referrals No home referrals have been ordered for you. No one will call you. Allergies predniSONE Bactrim Cigarette smoke Dilaudid HYDROmorphone (Unknown) codeine (HALLUCINATIONS) ibuprofen (Itching) iodinated radiocontrast dyes morphine (Itching) sulfa drugs sulfamethoxazole-trimethoprim (Eruption) Medications Please ask your primary doctor or pharmacist before taking any other medication not listed, including over the counter drugs, herbal medications, vitamins and or supplements as they may interact withyour home medications. What How Much When Instructions Last Dose New dofetilide (dofetilide 500 mcg oral capsule) 1 cap by mouth Every 12 hours Pickup at [facility] #[id number] New magnesium oxide (magnesium oxide 400 mg oral tablet) 1 tab(s) by mouth Three (3) times a day Duration: 2 Days Pickup at [facility] #[id number] Unchanged aspirin (aspirin 81 mg oral delayed release tablet) 1 tab(s) by mouth Every day Unchanged bumetanide (bumetanide 1 mg oral tablet) 1 tab(s) by mouth Every day as needed for Swelling/weight gain Unchanged cholecalciferol (Vitamin D3 1000 intl units oral tablet) 1 tab(s) by mouth Once a day Unchanged cyanocobalamin (Vitamin B12) 1,000 Microgram by mouth Once a day Unchanged desoximetasone topical (desoximetasone 0.05% topical cream) 1 application Topical Two (2) times a day as needed for Rash Unchanged metoprolol (metoprolol succinate 25 mg oral TABLET extended release) 0.5 tab(s) by mouth Once a day Do not crush or chew (controlled release) Unchanged potassium chloride 20 Milliequivalent by mouth As Directed Unchanged rivaroxaban (Xarelto 20 mg oral tablet) 1 tab(s) by mouth Daily at bedtime Begin taking Unchanged tadalafil (Tadalafil (Eqv-Adcirca) 20 mg oral tablet) 1 tab(s) by mouth Once a day Unchanged vitamin E 100 International unit by mouth Once a day Pharmacy Information [facility] #[id number]: [address], [place] [id number] [phone] Please take this list to your next doctor s visit. Bring all medications you take, including over the counter medications, herbals and other supplements with you to your doctor s visit. Patients and families are reminded to discard old lists and to update any records with all medication providers or retail pharmacies. Medication Leaflets dofetilide (elizabeth FET i lide) Tikosyn What is the most important information I should know about dofetilide? You should not take dofetilide if you have severe kidney disease or a history of Long QT syndrome. Serious drug interactions can occur when certain medicines are used together with dofetilide. Tell each of your healthcare providers about all medicines you use now, and any medicine you start or stop using. You will need to spend at least 3 days in a hospital setting when you first start taking dofetilide. This is so your heart rhythm and kidney function can be monitored in case the medicine causes serious side effects. What is dofetilide? Dofetilide is a heart rhythm medicine, also called an antiarrhythmic. Dofetilide is used to help keep the heart beating normally in people with certain heart rhythm disorders of the atrium (the upper chambers of the heart that allow blood to flow into the heart). Dofetilide is used in people with atrial fibrillation or atrial flutter. Dofetilide may also be used for purposes not listed in this medication guide. What should I discuss with my health care provider before taking dofetilide? You should not take dofetilide if you are allergic to it, or if you have: severe kidney disease (or if you are on dialysis); or a history of Long QT syndrome. Some medicines can cause unwanted or dangerous effects when used with dofetilide, and should not beused at the same time. Your doctor may need to change your treatment plan if you use any of the following drugs: cimetidine; dolutegravir; ketoconazole; megestrol; prochlorperazine; trimethoprim (Proloprim, Trimpex, Bactrim, Septra); verapamil; or a diuretic (water pill) that contains hydrochlorothiazide (HCTZ), such as Accuretic, Aldactazide, Atacand HCT, Benicar HCT, Diovan HCT, Dyazide, Exforge HCT, Hyzaar, Lopressor HCT, Maxzide, Micardis HCT, Monopril HCT, Prinzide, Tekturna HCT, Vaseretic, and others. To make sure dofetilide is safe for you, tell your doctor if you have: heart disease, high blood pressure; liver or kidney disease; depression, mental illness; asthma or allergies; any active infection; skin problems; or an electrolyte imbalance (such as low levels of potassium or magnesium in your blood). It is not known whether this medicine will harm an unborn baby. Tell your doctor if you are or plan to become while using this medicine. It is not known whether dofetilide passes into breast milk or if it could harm a nursing baby. You should not breast-feed while you are using dofetilide. How should I take dofetilide? Dofetilide is available only from a hospital or specialty pharmacy. You will need to spend at least 3 days in a hospital setting when you first start taking dofetilide. This is so your heart rhythm and kidney function can be monitored in case the medicine causes serious side effects. Follow all directions on your prescription label. Do not take this medicine in larger or smaller amounts or for longer than recommended. You may take dofetilide with or without food. You should not skip doses or stop using dofetilide suddenly. Stopping suddenly may make your condition worse. Follow your doctor's instructions about tapering your dose. Tell your doctor if you have a prolonged illness that causes severe diarrhea, vomiting, or heavy sweating. These conditions can cause an electrolyte imbalance, making it dangerous for you to use dofetilide. Your blood pressure will need to be checked often. Your kidney function may also need to be checkedwith frequent blood tests. Store at room temperature away from moisture and heat. What happens if I miss a dose? Skip the missed dose and take your next dose at the usual time to stay on schedule. Do not take extra medicine to make up the missed dose. What happens if I overdose? Seek emergency medical attention or call the Poison Help line at . What should I avoid while taking dofetilide? Grapefruit and grapefruit juice may interact with dofetilide and lead to unwanted side effects. Discuss the use of grapefruit products with your doctor. What are the possible side effects of dofetilide? Get emergency medical help if you have any of these signs of an allergic reaction: hives; difficultbreathing; swelling of your face, lips, tongue, or throat. Call your doctor at once if you have: headache with chest pain and severe dizziness, fainting, fast or pounding heartbeats; loss of appetite, vomiting or severe diarrhea; or low magnesium or potassium--confusion, uneven heart rate, increased thirst or urination, sweating, jerking muscle movements, leg discomfort, muscle weakness or limp feeling. Common side effects may include: mild headache; mild dizziness; or cold symptoms such as stuffy nose, sneezing, sore throat. This is not a complete list of side effects and others may occur. Call your doctor for medical advice about side effects. You may report side effects to FDA at 1-875-CBP-1296. What other drugs will affect dofetilide? Other drugs may interact with dofetilide, including prescription and [id number]-ldb-[id number] medicines, vitamins, and herbal products. Tell each of your health care providers about all medicines you use nowand any medicine you start or stop using. Where can I get more information? Your doctor or pharmacist can provide more information about dofetilide. Remember, keep this and all other medicines out of the reach of children, never share your medicines with others, and use this medication only for the indication prescribed. Every effort has been made to ensure that the information provided by [employer]. ('[employer]') is accurate, up-to-date, and complete, but no guarantee is made to that effect. Drug information contained herein may be time sensitive. [employer] information has been compiled for use by healthcare practitioners and consumers in the [place] and therefore [employer] does not warrant that uses outside of the [place] are appropriate, unless specifically indicated otherwise. [employer]'s drug information does not endorse drugs, diagnose patients or recommend therapy. [employer] drug information isan informational resource designed to assist licensed healthcare practitioners in caring for their p atients and/or to serve consumers viewing this service as a supplement to, and not a substitute for, the expertise, skill, knowledge and judgment of healthcare practitioners. The absence of a warningfor a given drug or drug combination in no way should be construed to indicate that the drug or drug combination is safe, effective or appropriate for any given patient. [facility] does not assume any responsibility for any aspect of healthcare administered with the aid of information [facility] provides. The information contained herein is not intended to cover all possible uses, directions, precautions, warnings, drug interactions, allergic reactions, or adverse effects. If you have questions about the drugs you are taking, check with your doctor, nurse or pharmacist. Copyright 4661-1433 [employer]. Version: 4.01. Revision Date: 01/04/2016. Education Materials Atrial Fibrillation Atrial fibrillation is a type of irregular or rapid heartbeat (arrhythmia). In atrial fibrillation,the top part of the heart (atria) quivers in a chaotic pattern. This makes the heart unable to pumpblood normally. Having atrial fibrillation can increase your risk for other health problems, such as: Blood can pool in the atria and form clots. If a clot travels to the brain, it can cause a stroke. The heart muscle may weaken from the irregular blood flow. This can cause heart failure. Atrial fibrillation may start suddenly and stop on its own, or it may become a long-lasting problem. What are the causes? This condition is caused by some heart-related conditions or procedures, including: High blood pressure. This is the most common cause. Heart failure. Heart valve conditions. Inflammation of the sac that surrounds the heart (pericarditis). Heart surgery. Coronary artery disease. Certain heart rhythm disorders, such as Gomez Parkinson White syndrome. Other causes include: Pneumonia. Obstructive sleep apnea. Lung cancer. Thyroid problems, especially if the thyroid is overactive (hyperthyroidism). Excessive alcohol or drug use. Sometimes, the cause of this condition is not known. What increases the risk? This condition is more likely to develop in: Older people. People who smoke. People who have diabetes mellitus. People who are overweight (obese). Athletes who exercise vigorously. People who have a family history. What are the signs or symptoms? Symptoms of this condition include: A feeling that your heart is beating rapidly or irregularly. A feeling of discomfort or pain in your chest. Shortness of breath. Sudden light-headedness or weakness. Getting tired easily during exercise. In some cases, there are no symptoms. How is this diagnosed? Your health care provider may be able to detect atrial fibrillation when taking your pulse. If detected, this condition may be diagnosed with: Electrocardiogram (ECG). Ambulatory ekg monitor tech. This device records your heartbeats for 24 hours or more. Transthoracic echocardiogram (TTE) to evaluate how blood flows through your heart. Transesophageal echocardiogram (ANTON) to view more detailed images of your heart. A stress test. Imaging tests, such as a CT scan or chest X-ray. Blood tests. How is this treated? This condition may be treated with: Medicines to slow down the heart rate or bring the heart's rhythm back to normal. Medicines to prevent blood clots from forming. Electrical cardioversion. This delivers a low-energy shock to the heart to reset its rhythm. Ablation. This procedure destroys the part of the heart tissue that sends abnormal signals. Left atrial appendage occlusion/excision. This seals off a common place in the atria where blood clots can form (left atrial appendage). The goal of treatment is to prevent blood clots from forming and to keep your heart beating at a normal rate and rhythm. Treatment depends on underlying medical conditions and how you feel when you are experiencing fibrillation. Follow these instructions at home: Medicines Take over-the counter and prescription medicines only as told by your health care provider. If your health care provider prescribed a blood-thinning medicine (anticoagulant), take it exactly as told. Taking too much blood-thinning medicine can cause bleeding. Taking too little can enable a blood clot to form and travel to the brain, causing a stroke. Lifestyle Do not use any products that contain nicotine or tobacco, such as cigarettes and e-cigarettes. If you need help quitting, ask your health care provider. Do not drink beverages that contain caffeine, such as coffee, soda, and tea. Follow diet instructions as told by your health care provider. Exercise regularly as told by your health care provider. Do not drink alcohol. General instructions If you have obstructive sleep apnea, manage your condition as told by your health care provider. Maintain a healthy weight. Do not use diet pills unless your health care provider approves. Diet pills may make heart problems worse. Keep all follow-up visits as told by your health care provider. This is important. Contact a health care provider if you: Notice a change in the rate, rhythm, or strength of your heartbeat. Are taking an anticoagulant and you notice increased bruising. Tire more easily when you exercise or exert yourself. Have a sudden change in weight. Get help right away if you have: Chest pain, abdominal pain, sweating, or weakness. Difficulty breathing. Blood in your vomit, stool (feces), or urine. Any symptoms of a stroke. BE FAST is an easy way to remember the main warning signs of a stroke: ? B - Balance. Signs are dizziness, sudden trouble walking, or loss of balance. ? E - Eyes. Signs are trouble seeing or a sudden change in vision. ? F - Face. Signs are sudden weakness or numbness of the face, or the face or eyelid drooping on one side. ? A - Arms. Signs are weakness or numbness in an arm. This happens suddenly and usually on one side of the body. ? S - Speech. Signs are sudden trouble speaking, slurred speech, or trouble understanding what peoplesay. ? T - Time. Time to call emergency services. Write down what time symptoms started. Other signs of a stroke, such as: ? A sudden, severe headache with no known cause. ? Nausea or vomiting. ? Seizure. These symptoms may represent a serious problem that is an emergency. Do not wait to see if the symptoms will go away. Get medical help right away. Call your local emergency services (911 in the [place] Do not drive yourself to the hospital. Summary Atrial fibrillation is a type of irregular or rapid heartbeat (arrhythmia). Symptoms include a feeling that your heart is beating fast or irregularly. In some cases, you may not have symptoms. The condition is treated with medicines to slow down the heart rate or bring the heart's rhythm back to normal. You may also need blood-thinning medicines to prevent blood clots. Get help right away if you have symptoms or signs of a stroke. This information is not intended to replace advice given to you by your health care provider. Make sure you discuss any questions you have with your health care provider. Document Released: 09/09/2006 Document Revised: 10/30/2018 Document Reviewed: 10/31/2018 Elsevier Patient Education 2020 [employer] Atrial Fibrillation Atrial fibrillation is a type of irregular or rapid heartbeat (arrhythmia). In atrial fibrillation,the top part of the heart (atria) quivers in a chaotic pattern. This makes the heart unable to pumpblood normally. Having atrial fibrillation can increase your risk for other health problems, such as: Blood can pool in the atria and form clots. If a clot travels to the brain, it can cause a stroke. The heart muscle may weaken from the irregular blood flow. This can cause heart failure. Atrial fibrillation may start suddenly and stop on its own, or it may become a long-lasting problem. What are the causes? This condition is caused by some heart-related conditions or procedures, including: High blood pressure. This is the most common cause. Heart failure. Heart valve conditions. Inflammation of the sac that surrounds the heart (pericarditis). Heart surgery. Coronary artery disease. Certain heart rhythm disorders, such as Gomez Parkinson White syndrome. Other causes include: Pneumonia. Obstructive sleep apnea. Lung cancer. Thyroid problems, especially if the thyroid is overactive (hyperthyroidism). Excessive alcohol or drug use. Sometimes, the cause of this condition is not known. What increases the risk? This condition is more likely to develop in: Older people. People who smoke. People who have diabetes mellitus. People who are overweight (obese). Athletes who exercise vigorously. People who have a family history. What are the signs or symptoms? Symptoms of this condition include: A feeling that your heart is beating rapidly or irregularly. A feeling of discomfort or pain in your chest. Shortness of breath. Sudden light-headedness or weakness. Getting tired easily during exercise. In some cases, there are no symptoms. How is this diagnosed? Your health care provider may be able to detect atrial fibrillation when taking your pulse. If detected, this condition may be diagnosed with: Electrocardiogram (ECG). Ambulatory ekg monitor tech. This device records your heartbeats for 24 hours or more. Transthoracic echocardiogram (TTE) to evaluate how blood flows through your heart. Transesophageal echocardiogram (ANTON) to view more detailed images of your heart. A stress test. Imaging tests, such as a CT scan or chest X-ray. Blood tests. How is this treated? This condition may be treated with: Medicines to slow down the heart rate or bring the heart's rhythm back to normal. Medicines to prevent blood clots from forming. Electrical cardioversion. This delivers a low-energy shock to the heart to reset its rhythm. Ablation. This procedure destroys the part of the heart tissue that sends abnormal signals. Left atrial appendage occlusion/excision. This seals off a common place in the atria where blood clots can form (left atrial appendage). The goal of treatment is to prevent blood clots from forming and to keep your heart beating at a normal rate and rhythm. Treatment depends on underlying medical conditions and how you feel when you are experiencing fibrillation. Follow these instructions at home: Medicines Take over-the counter and prescription medicines only as told by your health care provider. If your health care provider prescribed a blood-thinning medicine (anticoagulant), take it exactly as told. Taking too much blood-thinning medicine can cause bleeding. Taking too little can enable a blood clot to form and travel to the brain, causing a stroke. Lifestyle Do not use any products that contain nicotine or tobacco, such as cigarettes and e-cigarettes. If you need help quitting, ask your health care provider. Do not drink beverages that contain caffeine, such as coffee, soda, and tea. Follow diet instructions as told by your health care provider. Exercise regularly as told by your health care provider. Do not drink alcohol. General instructions If you have obstructive sleep apnea, manage your condition as told by your health care provider. Maintain a healthy weight. Do not use diet pills unless your health care provider approves. Diet pills may make heart problems worse. Keep all follow-up visits as told by your health care provider. This is important. Contact a health care provider if you: Notice a change in the rate, rhythm, or strength of your heartbeat. Are taking an anticoagulant and you notice increased bruising. Tire more easily when you exercise or exert yourself. Have a sudden change in weight. Get help right away if you have: Chest pain, abdominal pain, sweating, or weakness. Difficulty breathing. Blood in your vomit, stool (feces), or urine. Any symptoms of a stroke. BE FAST is an easy way to remember the main warning signs of a stroke: ? B - Balance. Signs are dizziness, sudden trouble walking, or loss of balance. ? E - Eyes. Signs are trouble seeing or a sudden change in vision. ? F - Face. Signs are sudden weakness or numbness of the face, or the face or eyelid drooping on one side. ? A - Arms. Signs are weakness or numbness in an arm. This happens suddenly and usually on one side of the body. ? S - Speech. Signs are sudden trouble speaking, slurred speech, or trouble understanding what peoplesay. ? T - Time. Time to call emergency services. Write down what time symptoms started. Other signs of a stroke, such as: ? A sudden, severe headache with no known cause. ? Nausea or vomiting. ? Seizure. These symptoms may represent a serious problem that is an emergency. Do not wait to see if the symptoms will go away. Get medical help right away. Call your local emergency services (911 in the [place] Do not drive yourself to the hospital. Summary Atrial fibrillation is a type of irregular or rapid heartbeat (arrhythmia). Symptoms include a feeling that your heart is beating fast or irregularly. In some cases, you may not have symptoms. The condition is treated with medicines to slow down the heart rate or bring the heart's rhythm back to normal. You may also need blood-thinning medicines to prevent blood clots. Get help right away if you have symptoms or signs of a stroke. This information is not intended to replace advice given to you by your health care provider. Make sure you discuss any questions you have with your health care provider. Document Released: 09/09/2006 Document Revised: 10/30/2018 Document Reviewed: 10/31/2018 [employer] Patient Education 2020 [employer] Additional Information VACCINATE! IT SAVES LIVES! Members of the community who have not yet received the COVID-19 vaccine and would like to receive it can visit one of [facility] vaccine clinics. There are many vaccine clinic locations within the [facility]. For locations and available times, please visit [email or web address] It is important to note that some COVID mobile vaccine clinics are held outdoors and may be canceled in rainy or stormy conditions. To learn more about pediatric vaccinations (ages 5-11), we invite you to visit the [facility] webpage. [email or web address] learn more about the COVID-19 vaccine, we invite you to visit the [facility] website for a list of frequently asked questions. [email or web address] [facility] Patient Portal Access Instructions: Stay connected with your healthcare team and access your personal medical information anytime with the [facility] Patient Portal.If you would like a full copy of your medical records, please contact the [facility] Medical Records Department, Saturday through Saturday between 8a.m. and 4:30p.m. Please follow the directions below to access the portal: 1.Access the email account you provided upon registration to the [facility].2.Look for an invitation email from [facility].3.Open the email and access the invitation link: Accept Invitation to [facility]4.Fill in the required العلي to create your account. Sign into [email or web address] with your username and password that you created in the above steps to stay up to date. You can then view a summary of results, a summary of your visits, and the ability to download your summaries to your computer or send the information securely to a physician. Remember that your healthcare information is confidential, so carefully consider who you will allow to register on the [facility] Patient Portal for access to your information. You can also access the [facility] Patient Portal on the [employer] aleena. Simply click on Health Records under HealthData and then click on the [facility] logo. HOW TO SAFELY DISPOSE OF PRESCRIPTION MEDICATIONS Please use one of the following methods to safely dispose of your unused medications. 1.Use a drug disposal kit: the drug disposal pouch allows you to safely discard your old and unuseddrugs. Ask your nurse to give you one when you are discharged.2.Visit a local take-back location: Many local pharmacies and police departments have programs that collect old and unwanted prescriptiondrugs. Call your local pharmacy or go to http://bit.[employer]/2R1Sx2c to find one close to you.3.Make use of household items: Use cat litter or old coffee grounds to dispose medications if other options arenot available. Mix your drugs with these household products, seal them in an airtight container andthrow it into the garbage. Call [facility]: [phone] to be sure your drugs can be disposed of in this way. Some medicines may require a different approach.4.Never flush your medications down the toilet. IF YOU HAVE BEEN PRESCRIBED AN OPIOID FOR PAIN If you have been prescribed an opioid (such as hydrocodone, oxycodone or morphine), it is critical to understand the possible side effects and risks of opioid pain medications. Even when taken as directed, opioids can have several side effects including: Tolerance, meaning you might need to take more of a medication for the same pain relief. Nausea, vomiting and/or constipation. Sleepiness, dizziness, dry mouth, confusion, depression or itching. Physical dependence, meaning you have withdrawal symptoms when a medication is stopped, can develop within a few days. KNOW YOUR RESPONSIBILITIES It is important to know exactly how much and how often to take the opioid pain medications you are prescribed. Never take opioids in higher amounts or more often than prescribed. Do not combine opioids with alcohol or other drugs that cause drowsiness, such as benzodiazepines, also known as benzos, including diazepam and alprazolam, muscle relaxants or sleep aids. Never sell or share prescription opioids. This is illegal. Store opioids in a secure place and out of reach of others (including children, family, friends and visitors). The last page of this document has been signed and retained as a CHART COPY. Signatures Patient Education Materials Atrial Fibrillation Atrial Fibrillation Medication Leaflets dofetilide My discharge plan and instructions have been reviewed and explained to me and IKEV MARY C understand my current condition and have read and understand these discharge instructions. I have received a written copy of the plan/instructions. If I have questions, I am aware that I should contact my doctor. 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: Date/Time: Relationship to Patient: Witness Name/Signature: Date[facility]Time[id number] Discharge summary Discharge Diagnosis Longstanding persistent atrial fibrillation (I48.11 - ICD-10-CM) Chronic diastolic (congestive) heart failure (I50.32 - ICD-10-CM) Pulmonary hypertension, unspecified (I27.20 - ICD-10-CM) Obstructive sleep apnea (adult) (pediatric) (G47.33 - ICD-10-CM) Atherosclerotic heart disease of [place] coronary artery without angina pectoris (I25.10 - ICD-10-CM) Additional Orders: Ordered: Discharge,10/11/22 12:06:00 EST, Discharged to: Home Ordered: Discharge Activity,NO activity restrictions, 10/11/22 12:06:00 EST Ordered: Discharge Diet,No changes were made to your diet during your hospital stay. Please resume your pre hospitalization diet on discharge., 10/11/22 12:06:00 EST Discontinued: dofetilide 250 mcg oral capsule,Dose : 250 mcg = 1 cap(s), Oral, q12hr, # 180 cap(s),0 Refill(s), Pharmacy: [facility] #[id number], 167.6, cm, 10/08/22 8:33:00 EST, Height Ordered: dofetilide 500 mcg oral capsule,Dose : 500 mcg = 1 cap(s), Oral, q12h, # 180 cap(s), 0 Refill(s), Pharmacy: [facility] #[id number], 167.6, cm, 10/08/22 8:33:00 EST, Height Ordered: magnesium oxide,Start: 10/11/22 9:00:00 EST, Dose = 400 mg, = 1 tab(s), Oral, TID, 3 dose(s), Stop: 10/11/22 22:00:00 EST, 10/11/22 8:43:00 EST Ordered: magnesium oxide 400 mg oral tablet,Dose : 400 mg = 1 tab(s), Oral, TID, X 2 day(s), # 6 tab(s), 0 Refill(s), 10/13/22 8:43:00 EST, Pharmacy: [facility] #[id number], 167.6, cm, 10/08/22 8:33:00 EST, Height Hospital Course Longstanding persistent nonvalvular AF [id number] s/p DCCV 10/09/2022 Chronic diastolic heart failure ASD s/p percutaneous closure 07/2022 Pulmonary hypertension on tadalafil FARSHAD on CPAP CVC: Braden 62-year-old woman with longstanding persistent AF, failed DCCV 06/2022, admitted for dofetilide meeting and cardioversion electively. She is free of any cardiac symptoms, was adequately rate controlled on admission. Underwent dofetilide dosing with 125 mg P Q12H starting dose, underwent successful DCCV on D2 of admission, was increased gradually to 500 mg PO Q12H, QTc remained within acceptable range, patient tolerated medication well. Discharged home in stable condition. Discussed with Dr. Patrick Hernandez MD [employer] or Pager [phone] Allergies predniSONE Bactrim Cigarette smoke Dilaudid HYDROmorphone (Unknown) codeine (HALLUCINATIONS) ibuprofen (Itching) iodinated radiocontrast dyes morphine (Itching) sulfa drugs sulfamethoxazole-trimethoprim (Eruption) Consults No qualifying data available. Physical Exam Vitals and Measurements T: 36.7 C (Oral) TMIN: 36.7 C (Oral) TMAX: 37.2 C (Oral) HR: 72(Monitored) RR: 15 BP: 102/66 SpO2:95% Weight Dosing Weight: 80.8 kg (10/08/22) Code Status Code Status - Ordered -- 10/08/22 8:55:00 EST, Full Code, Constant Order Admission Date 10/08/2022 Discharge Date 10/11/2022 Medications New Prescription dofetilide (dofetilide 500 mcg oral capsule)1 cap by mouth every 12 hours. Refills: 0. magnesium oxide (magnesium oxide 400 mg oral tablet)1 tab(s) by mouth three (3) times a day for 2 Days. Refills: 0. Unchanged aspirin (aspirin 81 mg oral delayed release tablet)1 tab(s) by mouth every day. Refills: 0. bumetanide (bumetanide 1 mg oral tablet)1 tab(s) by mouth every day as needed Swelling/weight gain.Refills: 2. cholecalciferol (Vitamin D3 1000 intl units oral tablet)1 tab(s) by mouth once a day. cyanocobalamin (Vitamin B12)1,000 Microgram by mouth once a day. desoximetasone topical (desoximetasone 0.05% topical cream)1 application Topical two (2) times a day as needed Rash. metoprolol (metoprolol succinate 25 mg oral TABLET extended release)0.5 tab(s) by mouth once a day.Do not crush or chew (controlled release). Refills: 6. potassium [id number] Milliequivalent by mouth As Directed. rivaroxaban (Xarelto 20 mg oral tablet)1 tab(s) by mouth daily at bedtime. Begin taking 08/09/22. tadalafil (Tadalafil (Eqv-Adcirca) 20 mg oral tablet)1 tab(s) by mouth once a day. Refills: 0. vitamin E100 International unit by mouth once a day. Follow Up Follow Up with MACI HARDY MD When 10/24/2022 02:00 PM EST Where: [address] [facility] [address] [facility] [place] [address]- [phone] Follow Up with LINA ZENDEJAS MD, [facility], Internal Medicine When Why: PLEASE CALL THIS OFFICE TO SCHEDULE A HOSPITAL FOLLOW UP APPOINTMENT. Where: [facility] [address] [place], [place] [id number]- [phone] Follow Up Appointments No qualifying data available. Follow Up Labs/Studies Discharge Labs No Follow-up Labs Discharge Studies No Follow-up Studies Discharge Diet Discharge Diet - Ordered -- No changes were made to your diet during your hospital stay. Please resume your pre hospitalization diet on discharge., 10/11/22 12:06:00 EST Discharge Activity Discharge Activity - Ordered -- NO activity restrictions, 10/11/22 12:06:00 EST Digitally Signed by MAYO HERNANDEZ MD on 10/11/2022 12:09 PM [facility] [id number] Note Date of Service 10/10/2022 Chief Complaint AF Subjective Feels well, successful DCCV yesterday Objective Vitals and Measurements T: 36.4 C (Oral) TMIN: 36.4 C (Oral) TMAX: 36.7 C (Oral) HR: 74(Monitored) RR: 18 BP: 124/61 SpO2: 93% Intake and Output 7AM Yesterday to 7AM Today Intake and Output (Last 24 hours) Intake Oral Intake 0.00 Output Urine Voided 1200.00 Stool Count 0.00 Total Summary Total Intake 0.00 Total Output 1200.00 Fluid Balance -1200.00 Physical Exam General Appearance: Comfortable, not in acute distress Cardiac: S1, S2, no murmurs, regular rhythm, normal rate, no lower extremity edema, no crackles, noJVP distention, warm extremities. Lungs: No wheezes, normal chest expansion. Abdomen: No tenderness, no distention, normal bowel sounds. Musculoskeletal: No signs of acute synovitis. Neurological: Alert and oriented x3, no focal neurological deficits grossly. Psychiatric: Appropriate, normal mood. Weight Dosing Weight: 80.8 kg (10/08/22) Medications Medications (11) Active Scheduled: (10) aspirin 81 mg EC 81 mg 1 tab(s), Oral, Daily cholecalciferol 25 mcg tablet (Vit D3 1000 units) 25 mcg 1 tab(s), Oral, qDay cyanocobalamin 500 mcg Tablet 1,000 mcg 2 tab(s), Oral, qDay dofetilide 500 mcg capsule 500 mcg 1 cap(s), Oral, q12hr metoprolol succinate 25 mg ER tablet 12.5 mg 0.5 tab(s), Oral, qDay Misc communication order 1 EA, Miscellaneous, Daily rivaroxaban 20 mg tablet 20 mg 1 tab(s), Oral, qHS tadalafil 5 mg tablet 20 mg 4 tab(s), Oral, qDay vitamin E 100 units Capsule 100 International_Unit 1 cap(s), Oral, qDay vitamin E 100 units Capsule 100 International_Unit 1 cap(s), Oral, qDay Continuous: (0) PRN: (1) triamcinolone topical 0.1% Cream 15 Gram(s) 1 aleena, Topical, BID Lab Results 10/10 09:23 Glucose Level: 138 H Sodium Level: 138 Potassium Level: 4.0 BUN: 15.0 Creatinine Lvl (s): 0.68 10/10 07:43 Glucose Level: 92 Sodium Level: 140 Potassium Level: 4.2 BUN: 17.0 Creatinine Lvl (s): 0.74 10/09 05:17 Glucose Level: 94 Sodium Level: 141 Potassium Level: 4.3 BUN: 18.0 Creatinine Lvl (s): 0.73 EKG EKG - Completed -- 10/08/22 23:22:00 EST, 2 hour post tikosyn EKG - Completed -- 10/09/22 11:00:00 EST EKG - Discontinued -- 10/09/22 23:00:00 EST Electrocardiogram (EKG) - InProcess -- 10/10/22 10:04:00 EST, s/p tikosyn Electrocardiogram (EKG) - InProcess -- 10/10/22 12:00:00 EST, s/p tikosyn Assessment/Plan Longstanding persistent nonvalvular AF [id number] s/p DCCV 10/09/2022 Chronic diastolic heart failure ASD s/p percutaneous closure 07/2022 Pulmonary hypertension on tadalafil FARSHAD on CPAP CVC: Braden 62-year-old woman with longstanding persistent AF, failed DCCV 06/2022, admitted for dofetilide meeting and cardioversion electively. She is free of any cardiac symptoms at the moment, adequately rate controlled. Plan: Successful DCCV 10/09/2022 Continue dofetilide loading, increased to 500 mg every 12 hours, ECG, BMP, mag, all per protocol Will keep one more day for monitoring after dose increase of dofetilide Discussed with Dr. Patrick Hernandez MD [employer] or Pager [phone] Digitally Signed by MAYO HERNANDEZ MD on 10/10/2022 02:43 PM [facility] [id number] Note Date of Service 10/10/2022 Chief Complaint AF Subjective Feels well, successful DCCV yesterday Objective Vitals and Measurements T: 36.4 C (Oral) TMIN: 36.4 C (Oral) TMAX: 36.7 C (Oral) HR: 74(Monitored) RR: 18 BP: 124/61 SpO2: 93% Intake and Output 7AM Yesterday to 7AM Today Intake and Output (Last 24 hours) Intake Oral Intake 0.00 Output Urine Voided 1200.00 Stool Count 0.00 Total Summary Total Intake 0.00 Total Output 1200.00 Fluid Balance -1200.00 Physical Exam General Appearance: Comfortable, not in acute distress Cardiac: S1, S2, no murmurs, regular rhythm, normal rate, no lower extremity edema, no crackles, noJVP distention, warm extremities. Lungs: No wheezes, normal chest expansion. Abdomen: No tenderness, no distention, normal bowel sounds. Musculoskeletal: No signs of acute synovitis. Neurological: Alert and oriented x3, no focal neurological deficits grossly. Psychiatric: Appropriate, normal mood. Weight Dosing Weight: 80.8 kg (10/08/22) Medications Medications (11) Active Scheduled: (10) aspirin 81 mg EC 81 mg 1 tab(s), Oral, Daily cholecalciferol 25 mcg tablet (Vit D3 1000 units) 25 mcg 1 tab(s), Oral, qDay cyanocobalamin 500 mcg Tablet 1,000 mcg 2 tab(s), Oral, qDay dofetilide 500 mcg capsule 500 mcg 1 cap(s), Oral, q12hr metoprolol succinate 25 mg ER tablet 12.5 mg 0.5 tab(s), Oral, qDay Misc communication order 1 EA, Miscellaneous, Daily rivaroxaban 20 mg tablet 20 mg 1 tab(s), Oral, qHS tadalafil 5 mg tablet 20 mg 4 tab(s), Oral, qDay vitamin E 100 units Capsule 100 International_Unit 1 cap(s), Oral, qDay vitamin E 100 units Capsule 100 International_Unit 1 cap(s), Oral, qDay Continuous: (0) PRN: (1) triamcinolone topical 0.1% Cream 15 Gram(s) 1 aleena, Topical, BID Lab Results 10/10 09:23 Glucose Level: 138 H Sodium Level: 138 Potassium Level: 4.0 BUN: 15.0 Creatinine Lvl (s): 0.68 10/10 07:43 Glucose Level: 92 Sodium Level: 140 Potassium Level: 4.2 BUN: 17.0 Creatinine Lvl (s): 0.74 10/09 05:17 Glucose Level: 94 Sodium Level: 141 Potassium Level: 4.3 BUN: 18.0 Creatinine Lvl (s): 0.73 EKG EKG - Completed -- 10/08/22 23:22:00 EST, 2 hour post tikosyn EKG - Completed -- 10/09/22 11:00:00 EST EKG - Discontinued -- 10/09/22 23:00:00 EST Electrocardiogram (EKG) - InProcess -- 10/10/22 10:04:00 EST, s/p tikosyn Electrocardiogram (EKG) - InProcess -- 10/10/22 12:00:00 EST, s/p tikosyn Assessment/Plan Longstanding persistent nonvalvular AF [id number] 2 s/p DCCV 10/09/2022 Chronic diastolic heart failure ASD s/p percutaneous closure 07/2022 Pulmonary hypertension on tadalafil FARSHAD on CPAP CVC: Braden 62-year-old woman with longstanding persistent AF, failed DCCV 06/2022, admitted for dofetilide meeting and cardioversion electively. She is free of any cardiac symptoms at the moment, adequately rate controlled. Plan: Successful DCCV 10/09/2022 Continue dofetilide loading, increased to 500 mg every 12 hours, ECG, BMP, mag, all per protocol Will keep one more day for monitoring after dose increase of dofetilide Discussed with Dr. Patrick Hernandez MD [employer] or Pager [phone] Digitally Signed by MAYO HERNANDEZ MD on 10/10/2022 02:43 PM [facility] [id number] Note Date of Service 10/09/2022 Chief Complaint AF Subjective Feels well, successful DCCV Objective Vitals and Measurements T: 36.3 C (Oral) TMIN: 36.2 C (Temporal Artery) TMAX: 36.6 C (Oral) HR: 61(Monitored) RR: 18 BP: 112/70 SpO2: 95% Intake and Output 7AM Yesterday to 7AM Today Intake and Output (Last 24 hours) Intake Administration Information 250.00 Oral Intake 0.00 Output Urine Voided 1400.00 Total Summary Total Intake 250.00 Total Output 1400.00 Fluid Balance -1150.00 Physical Exam General Appearance: Comfortable, not in acute distress Cardiac: S1, S2, no murmurs, regular rhythm, normal rate, no lower extremity edema, no crackles, noJVP distention, warm extremities. Lungs: No wheezes, normal chest expansion. Abdomen: No tenderness, no distention, normal bowel sounds. Musculoskeletal: No signs of acute synovitis. Neurological: Alert and oriented x3, no focal neurological deficits grossly. Psychiatric: Appropriate, normal mood. Weight Dosing Weight: 80.8 kg (10/08/22) Medications Medications (11) Active Scheduled: (10) aspirin 81 mg EC 81 mg 1 tab(s), Oral, Daily cholecalciferol 25 mcg tablet (Vit D3 1000 units) 25 mcg 1 tab(s), Oral, qDay cyanocobalamin 500 mcg Tablet 1,000 mcg 2 tab(s), Oral, qDay dofetilide 250 mcg capsule 250 mcg 1 cap(s), Oral, q12hr metoprolol succinate 25 mg ER tablet 12.5 mg 0.5 tab(s), Oral, qDay Misc communication order 1 EA, Miscellaneous, Daily rivaroxaban 20 mg tablet 20 mg 1 tab(s), Oral, qHS tadalafil 5 mg tablet 20 mg 4 tab(s), Oral, qDay vitamin E 100 units Capsule 100 International_Unit 1 cap(s), Oral, qDay vitamin E 100 units Capsule 100 International_Unit 1 cap(s), Oral, qDay Continuous: (0) PRN: (1) triamcinolone topical 0.1% Cream 15 Gram(s) 1 aleena, Topical, BID Lab Results 10/09 05:17 Glucose Level: 94 Sodium Level: 141 Potassium Level: 4.3 BUN: 18.0 Creatinine Lvl (s): 0.73 10/08 09:19 Glucose Level: 117 H Sodium Level: 143 Potassium Level: 3.4 L BUN: 17.0 Creatinine Lvl (s): 0.68 EKG EKG - Completed -- 10/08/22 8:23:00 EST EKG - Completed -- 10/08/22 8:57:00 EST, STAT on Admission, Complete by Nursing EKG - Completed -- 10/08/22 13:00:00 EST Electrocardiogram (EKG) - Ordered -- 10/08/22 23:22:00 EST, 2 hour post tikosyn Electrocardiogram (EKG) - InProcess -- 10/09/22 11:00:00 EST Assessment/Plan Orders: dofetilide, Start: 10/09/22 14:00:00 EST, Dose = 250 mcg, = 1 cap(s), Oral, q12hr, this will be dose #2 changed from 250, 0, 10/09/22 13:56:00 EST dofetilide, Dose : 250 mcg = 1 cap(s), Oral, q12hr, # 180 cap(s), 0 Refill(s), Pharmacy: [facility] #[id number], 167.6, cm, 10/08/22 8:33:00 EST, Height triamcinolone topical, Start: 10/08/22 15:17:00 EST, Dose = 1 aleena, Topical, BID, PRN, Rash, Apply to: affected area(s), Cream, 10/08/22 15:17:00 EST Telemetry Monitoring - Continue Longstanding persistent nonvalvular AF [id number] 2 failed DCV 06/2022 Chronic diastolic heart failure ASD s/p percutaneous closure 07/2022 Pulmonary hypertension on tadalafil FARSHAD on CPAP CVC: Braden 62-year-old woman with longstanding persistent AF, failed DCCV 06/2022, admitted for dofetilide meeting and cardioversion electively. She is free of any cardiac symptoms at the moment, adequately rate controlled. Plan: Successful DCCV this morning Continue dofetilide loading 250 mg every 12 hours, ECG, BMP, mag, all per protocol Discussed with Dr. Patrick Hernandez MD [employer] or Pager [phone] Digitally Signed by MAYO HERNANDEZ MD on 10/09/2022 01:58 PM [facility] [id number] Note Date of Service 10/09/2022 Chief Complaint AF Subjective Feels well, successful DCCV Objective Vitals and Measurements T: 36.3 C (Oral) TMIN: 36.2 C (Temporal Artery) TMAX: 36.6 C (Oral) HR: 61(Monitored) RR: 18 BP: 112/70 SpO2: 95% Intake and Output 7AM Yesterday to 7AM Today Intake and Output (Last 24 hours) Intake Administration Information 250.00 Oral Intake 0.00 Output Urine Voided 1400.00 Total Summary Total Intake 250.00 Total Output 1400.00 Fluid Balance -1150.00 Physical Exam General Appearance: Comfortable, not in acute distress Cardiac: S1, S2, no murmurs, regular rhythm, normal rate, no lower extremity edema, no crackles, noJVP distention, warm extremities. Lungs: No wheezes, normal chest expansion. Abdomen: No tenderness, no distention, normal bowel sounds. Musculoskeletal: No signs of acute synovitis. Neurological: Alert and oriented x3, no focal neurological deficits grossly. Psychiatric: Appropriate, normal mood. Weight Dosing Weight: 80.8 kg (10/08/22) Medications Medications (11) Active Scheduled: (10) aspirin 81 mg EC 81 mg 1 tab(s), Oral, Daily cholecalciferol 25 mcg tablet (Vit D3 1000 units) 25 mcg 1 tab(s), Oral, qDay cyanocobalamin 500 mcg Tablet 1,000 mcg 2 tab(s), Oral, qDay dofetilide 250 mcg capsule 250 mcg 1 cap(s), Oral, q12hr metoprolol succinate 25 mg ER tablet 12.5 mg 0.5 tab(s), Oral, qDay Misc communication order 1 EA, Miscellaneous, Daily rivaroxaban 20 mg tablet 20 mg 1 tab(s), Oral, qHS tadalafil 5 mg tablet 20 mg 4 tab(s), Oral, qDay vitamin E 100 units Capsule 100 International_Unit 1 cap(s), Oral, qDay vitamin E 100 units Capsule 100 International_Unit 1 cap(s), Oral, qDay Continuous: (0) PRN: (1) triamcinolone topical 0.1% Cream 15 Gram(s) 1 aleena, Topical, BID Lab Results 10/09 05:17 Glucose Level: 94 Sodium Level: 141 Potassium Level: 4.3 BUN: 18.0 Creatinine Lvl (s): 0.73 10/08 09:19 Glucose Level: 117 H Sodium Level: 143 Potassium Level: 3.4 L BUN: 17.0 Creatinine Lvl (s): 0.68 EKG EKG - Completed -- 10/08/22 8:23:00 EST EKG - Completed -- 10/08/22 8:57:00 EST, STAT on Admission, Complete by Nursing EKG - Completed -- 10/08/22 13:00:00 EST Electrocardiogram (EKG) - Ordered -- 10/08/22 23:22:00 EST, 2 hour post tikosyn Electrocardiogram (EKG) - InProcess -- 10/09/22 11:00:00 EST Assessment/Plan Orders: dofetilide, Start: 10/09/22 14:00:00 EST, Dose = 250 mcg, = 1 cap(s), Oral, q12hr, this will be dose #2 changed from 250, 0, 10/09/22 13:56:00 EST dofetilide, Dose : 250 mcg = 1 cap(s), Oral, q12hr, # 180 cap(s), 0 Refill(s), Pharmacy: [facility] #[id number], 167.6, cm, 10/08/22 8:33:00 EST, Height triamcinolone topical, Start: 10/08/22 15:17:00 EST, Dose = 1 aleena, Topical, BID, PRN, Rash, Apply to: affected area(s), Cream, 10/08/22 15:17:00 EST Telemetry Monitoring - Continue Longstanding persistent nonvalvular AF [id number] failed DCV 06/2022 Chronic diastolic heart failure ASD s/p percutaneous closure 07/2022 Pulmonary hypertension on tadalafil FARSHAD on CPAP CVC: Feliciano 62-year-old woman with longstanding persistent AF, failed DCCV 06/2022, admitted for dofetilide meeting and cardioversion electively. She is free of any cardiac symptoms at the moment, adequately rate controlled. Plan: Successful DCCV this morning Continue dofetilide loading 250 mg every 12 hours, ECG, BMP, mag, all per protocol Discussed with Dr. Patrick Hernandez MD [employer] or Pager [phone] Digitally Signed by MAYO HERNANDEZ MD on 10/09/2022 01:58 PM [id number] Anesthesiology Consult note Patient: DORCAS ANGULO Age: 62 years Sex: Female : 1960 Associated Diagnoses: None Author: QUINCY CARIAS DO Preoperative Information Greater than 6 hours Anesthesia history Patient's history: negative. Family's history: negative. Review of Systems Ear/Nose/Mouth/Throat: Negative except as documented in history of present illness. Respiratory: Negative except as documented in history of present illness. Cardiovascular: Negative except as documented in history of present illness. Gastrointestinal: Negative except as documented in history of present illness. Genitourinary: Negative except as documented in history of present illness. Endocrine: Negative except as documented in history of present illness. Musculoskeletal: Negative except as documented in history of present illness. Integumentary: Negative except as documented in history of present illness. Neurologic: Negative except as documented in history of present illness. Health Status Allergies: Allergic Reactions (Selected) Moderate PredniSONE- No reactions were documented. Severity Not Documented Bactrim- No reactions were documented. Cigarette smoke- No reactions were documented. Codeine- Hallucinations. Dilaudid- No reactions were documented. HYDROmorphone- Unknown. Ibuprofen- Itching. Iodinated radiocontrast dyes- No reactions were documented. Morphine- Itching. Sulfa drugs- No reactions were documented. Sulfamethoxazole-trimethoprim- Eruption., Allergies (11) ActiveReaction predniSONENone Documented BactrimNone Documented Cigarette smokeNone Documented codeineHALLUCINATIONS DilaudidNone Documented HYDROmorphoneUnknown ibuprofenItching iodinated radiocontrast dyesNone Documented morphineItching sulfa drugsNone Documented sulfamethoxazole-trimethoprimEruption Current medications: (Selected) Inpatient Medications Ordered Aquasol E: Start: 10/08/22 11:31:00 EST, Dose = 100 International_Unit, = 1 cap(s), Oral, qDay, 0 Dofetilide Pharmacy Information: Start: 10/08/22 8:57:00 EST, Daily, 7 day(s), Stop: 10/14/22 9:00:00 EST, 10/08/22 8:57:00 EST Vitamin B12: Start: 10/08/22 11:29:00 EST, Dose = 1,000 mcg, = 2 tab(s), Oral, qDay, 0 Vitamin D3 25 mcg (1000 intl units) oral tablet: Start: 10/08/22 9:32:00 EST, Dose = 25 mcg, = 1 tab(s), Oral, qDay, 10/08/22 9:32:00 EST Xarelto: Start: 10/08/22 22:00:00 EST, Dose = 20 mg, = 1 tab(s), Oral, qHS, Indication for Use Atrial fibrillation, 0, 10/08/22 8:56:00 EST aspirin 81 mg oral delayed release tablet: Start: 10/08/22 9:00:00 EST, Dose = 81 mg, = 1 tab(s), Oral, Daily, 0, 10/08/22 8:56:00 EST dofetilide: Start: 10/08/22 23:00:00 EST, Dose = 125 mcg, = 1 cap(s), Oral, q12hr, this will be dose #2 changed from 250, 0, 10/08/22 20:50:00 EST metoprolol succinate 25 mg oral TABLET extended release: Start: 10/08/22 9:29:00 EST, Dose = 12.5 mg, = 0.5 tab(s), Oral, qDay, 0, 10/08/22 8:56:00 EST tadalafil: Start: 10/08/22 9:00:00 EST, Dose = 20 mg, = 4 tab(s), Oral, qDay, 0, 10/08/22 8:56:00 EST triamcinolone 0.1% topical cream: Start: 10/08/22 15:17:00 EST, Dose = 1 aleena, Topical, BID, PRN, Rash, Apply to: affected area(s), Cream, 10/08/22 15:17:00 EST vitamin E: Start: 10/08/22 9:00:00 EST, Dose = 100 International_Unit, = 1 cap(s), Oral, qDay, 0, 10/08/22 8:56:00 EST Prescriptions Prescribed Tadalafil (Eqv-Adcirca) 20 mg oral tablet: Dose : 20 mg = 1 tab(s), Oral, qDay, # 30 tab(s), 0 Refill(s), called to pharmacy (Rx) aspirin 81 mg oral delayed release tablet: Dose : 81 mg = 1 tab(s), Oral, Daily, # 30 tab(s), 0 Refill(s), Pharmacy: [id number], 167.6, cm, 08/07/22 5:48:00 EST, Height bumetanide 1 mg oral tablet: Dose : 1 mg = 1 tab(s), Oral, Daily, PRN Swelling/weight gain, # 30 tab(s), 2 Refill(s), Pharmacy: [facility], 167.6, cm, 07/31/22 9:04:00 EST, Height, kg,07/31/22 9:04:00 EST, Dosing Weight metoprolol succinate 25 mg oral TABLET extended release: Dose : 12.5 mg = 0.5 tab(s), Oral, qDay, Do not crush or chew (controlled release), # 15 tab(s), 6 Refill(s), Pharmacy: [facility] #[id number], 167.6, cm, 08/22/22 9:35:00 EST, Height Documented Medications Documented Vitamin B12: Dose : 1,000 mcg =, Oral, qDay, 0 Refill(s) Vitamin D3 1000 intl units oral tablet: Dose : 1,000 unit(s) = 1 tab(s), Oral, qDay, 0 Refill(s) Xarelto 20 mg oral tablet: Dose : 20 mg = 1 tab(s), Oral, qHS, Begin taking 08/09/22, # 30 tab(s), 0 Refill(s), 79.6 desoximetasone 0.05% topical cream: Apply 1 aleena, Topical, BID, PRN Rash, # 15 gram(s), 0 Refill(s),Cream, 79.3 potassium chloride: Dose : 20 mEq =, Oral, AsDirected, 0 Refill(s) vitamin E: Dose : 100 Int unit =, Oral, qDay, 0 Refill(s), Medications (11) Active Scheduled: (10) aspirin 81 mg EC 81 mg 1 tab(s), Oral, Daily cholecalciferol 25 mcg tablet (Vit D3 1000 units) 25 mcg 1 tab(s), Oral, qDay cyanocobalamin 500 mcg Tablet 1,000 mcg 2 tab(s), Oral, qDay dofetilide 125 mcg capsule 125 mcg 1 cap(s), Oral, q12hr metoprolol succinate 25 mg ER tablet 12.5 mg 0.5 tab(s), Oral, qDay Misc communication order 1 EA, Miscellaneous, Daily rivaroxaban 20 mg tablet 20 mg 1 tab(s), Oral, qHS tadalafil 5 mg tablet 20 mg 4 tab(s), Oral, qDay vitamin E 100 units Capsule 100 International_Unit 1 cap(s), Oral, qDay vitamin E 100 units Capsule 100 International_Unit 1 cap(s), Oral, qDay Continuous: (0) PRN: (1) triamcinolone topical 0.1% Cream 15 Gram(s) 1 aleena, Topical, BID Problem list: Medical ATRIAL FIBRILLATION WITH RVR / SNOMED CT 4483374633 / Confirmed CHEST PAIN, ATYPICAL / SNOMED CT 144157449 / Confirmed Back pain / SNOMED CT 9938626703 / Confirmed CHEST WALL PAIN / SNOMED CT 796955863 / Confirmed Cirrhosis, non-alcoholic / SNOMED CT 694972701 / Confirmed DEHYDRATION / SNOMED CT 66768394 / Confirmed DIARRHEA / SNOMED CT 559644574 / Confirmed Eczema / SNOMED CT 87650525 / Confirmed GERD - Gastro-esophageal reflux disease / SNOMED CT 9535515176 / Confirmed HYPOTHYROIDISM / SNOMED CT 03150844 / Confirmed REFUSED INFLUENZA VACCINE / SNOMED CT 030576901 / Confirmed Migraine / SNOMED CT 58474460 / Confirmed SYNCOPE, NEAR / SNOMED CT 4879404415 / Confirmed STEATOHEPATITIS, NONALCOHOLIC / SNOMED CT 8550629337 / Confirmed FARSHAD (obstructive sleep apnea) / SNOMED CT 634159124 / Confirmed ASD secundum / SNOMED CT 288535575 / Confirmed Thyroid enlargement / SNOMED CT 727125096 / Confirmed Urinary incontinence / SNOMED CT 4090947752 / Confirmed REFUSED PNEUMOCOCCAL VACCINE / SNOMED CT 7483865233 / Confirmed, Active Problems (28) Anxiety ASD (atrial septal defect) ASD secundum ATRIAL FIBRILLATION WITH RVR Back pain CHEST PAIN, ATYPICAL CHEST WALL PAIN Cirrhosis, non-alcoholic DEHYDRATION DIARRHEA Eczema Exertional shortness of breath GERD - Gastro-esophageal reflux disease HYPOTHYROIDISM Migraine On anticoagulant therapy FARSHAD (obstructive sleep apnea) PONV (postoperative nausea and vomiting) Pulmonary HTN REFUSED INFLUENZA VACCINE REFUSED PNEUMOCOCCAL VACCINE Right heart enlargement Seasonal allergy Sleep apnea with use of continuous positive airway pressure (CPAP) STEATOHEPATITIS, NONALCOHOLIC SYNCOPE, NEAR Thyroid enlargement Urinary incontinence Histories Past Medical History: Active Back pain (5337742615) Migraine (12190481) Urinary incontinence (3104708809) GERD - Gastro-esophageal reflux disease (0001359235) Thyroid enlargement (525460563) Eczema (71017089) Comments: 07/16/2013 EDT 11:50 EDT - KWAN [facility] Family History: Cancer Father () Brother Cardiac pacemaker Father () Sister Atrial fibrillation Sister Mother High blood pressure Mother Heart failure Father () Stroke Mother Sister Pulmonary embolism Daughter Deep vein thrombosis Daughter Procedure history: Transesophageal echocardiogram ([id number]) on 09/14/2022 at 62 Years. Comments: 09/30/2022 18:00 Elana Paris MA (ABR-OE) 1. Left ventricle: The cavity size is normal. Wall thickness is normal. Systolic function is normal. The estimated ejection fraction is 55-60%. There is no evidence of a thrombus. 2. Ventricular septum: There is no evidence of a ventricular septal defect. 3. Mitral valve: Posterior leaflet mobility is mildly restricted. There is no evidence of vegetation. There is mild to moderate regurgitation. 4. Left atrium: There is no evidence of a thrombus in the atrial cavity or appendage. No spontaneous echo contrast is observed. 5. Tricuspid valve: There is mild regurgitation. The regurgitant peak velocity is 2.2 m/sec. 6. Right atrium: The atrium is dilated. There is no evidence of a thrombus in the atrial cavity or appendage. Right atrial area 21.94 cm 7. Atrial septum: There is no atrial level shunt. There is no evidence of thrombus. Atrial septal occluder device is noted and is well positioned. No color-flow noted across the interatrial septum. Agitated saline contraststudy does not show an interatrial shunt. 8. Systemic veins: IVC is 2.2 cm, mildly dilated. 9. Pericardium, extracardiac: A small, free-flowing pericardial effusion is identified posterior tothe heart. The fluid has no internal echoes. There is no evidence of hemodynamic compromise. Recommendations: 1. IVC is 2.2 cm. Well-positioned ASD closure device. 2. No RICHARD thrombus. Cardiac catheterization ([id number]) on 08/29/2022 at 62 Years. Comments: 09/30/2022 18:00 Elana Paris MA (ABR-OE) No significant obstructive CAD. Normal LVEDP. Echocardiogram ([id number]) on 08/15/2022 at 61 Years. Comments: 09/30/2022 18:01 Elana Paris MA (ABR-OE) 1. Limited ECHO for assessment of pericardial effusion. 2. Left ventricle: Systolic function is normal. 3. Pericardium, extracardiac: A [id number], free-flowing pericardial effusion is identified posterior to the heart. The fluid has no internal echoes. There is no evidence of chamber collapse. Respirophasic change in transvalvular velocities is within normal limits. No clinical tamponade. 4. Inferior vena cava: The IVC is normal-sized. Respirophasic diameter changes are in the normal range (> 50%). 5. Right atrium: The estimated right atrial pressure is 3 mm Hg. Echocardiogram ([id number]) on 08/08/2022 at 61 Years. Comments: 09/30/2022 18:02 Elana Paris MA (ABR-OE) 1. Study data: limited for effusion check 2. Pericardium, extracardiac: A small pericardial effusion is identified posterior to the heart andalong the left ventricular free wall. There is no evidence of hemodynamic compromise. 3. Left ventricle: The cavity size is normal. Wall thickness is normal. Systolic function is normal. The estimated ejection fraction is 60-65%. Although no diagnostic regional wall motion abnormality is identified, this possibility cannot be completely excluded on the basis of this study. 4. Mitral valve: There is mild, 1+ regurgitation. 5. Left atrium: The atrium is mildly dilated. 6. Tricuspid valve: There is mild, 1+ regurgitation. 7. Right atrium: The atrium is mildly dilated. Echocardiogram ([id number]) on 08/07/2022 at 61 Years. Comments: 09/30/2022 18:03 Elana Paris MA (ABR-OE) Pericardium, extracardiac: A small to moderate posterior pericardial effusion is identified size 1.3 cm. There is no RV diastolic collapse noted. Previous TTE from March 2022 shows similar findings. Echocardiogram ([id number]) on 08/07/2022 at 61 Years. Comments: 09/30/2022 18:03 Elana Paris MA (ABR-OE) 1. Pericardium, extracardiac: A small pericardial effusion is identified. Features are not consistent with tamponade physiology. 2. Inferior vena cava: The IVC is trivially dilated Transesophageal echocardiogram ([id number]) on 08/07/2022 at 61 Years. Comments: 09/30/2022 18:04 Elana Paris MA (ABR-OE) 1. Left ventricle: Systolic function is normal. 2. Left atrium: There is no evidence of a thrombus in the atrial cavity or appendage. No spontaneous echo contrast is observed. 3. Right ventricle: The cavity size is mildly increased. 4. Right atrium: The atrium is dilated. There is no evidence of a thrombus in the atrial cavity or appendage. 5. Atrial septum: There is a 0.6 cm2 secundum ASD. Successful implantation of ASD closure device. 6. Pericardium, extracardiac: A small pericardial effusion is identified pre procedure and did not change post procedure Transesophageal echocardiogram ([id number]) on 06/15/2022 at 61 Years. Comments: 09/30/2022 18:05 Elana Paris MA (ABR-OE) 1. Left ventricle: Systolic function is normal. 2. Left atrium: There is no evidence of a thrombus in the atrial cavity or appendage. No spontaneous echo contrast is observed. 3. Right ventricle: The cavity size is increased. 4. Pulmonic valve: There is no evidence of a vegetation. 5. Tricuspid valve: There is no evidence of a vegetation. 6. Right atrium: The atrium is dilated. There is no evidence of a thrombus in the atrial cavity or appendage. 7. Atrial septum: Secundum ASD, 8 mm in diameter, 0.5 cm area noted with a predominant [id number] shunt on color Doppler as well as agitated saline study. Some right to left shunting noted with provocative maneuvers. 8. Inferior vena cava: The IVC is dilated at 2.2 cm. 9. Pericardium, extracardiac: A small pericardial effusion is identified Spirometry ([id number]) on 04/24/2022 at 61 Years. Comments: 09/30/2022 18:06 Elana Paris MA (ABR-OE) 1. Moderate degree of restrictive airway disease. 2. Bronchodilator therapy has not demonstrated any significant change indicating that the patient will not benefit from continued bronchodilator therapy. 3. No evidence of diffusion defect. Cardiac catheterization ([id number]) on 04/13/2022 at 61 Years. Suspension of bladder (7204650). Dilation and curettage (87608364). Hysteroscopy (244951429). Tubal ligation (971910696). Bunionectomy (39441862). Tonsillectomy (291474904). Colonoscopy (638172597). EGD - Esophagogastroduodenoscopy (9654594860). PFO - Closure of patent foramen ovale (2014780566). Cardioversion (340231597). Social History Social & Psychosocial Habits Alcohol 09/20/2019 Use: Never Employment/School 10/08/2019 Status: Employed Activity level: Occasional physical work Substance Abuse 10/08/2019 Use: Never Tobacco 09/20/2019 Tobacco Use: Never (less than 100 in l Home/Environment 07/31/2022 Domestic Concerns Denies, None Lives In 1st floor bathroom, 1st floor bedroom, Single level home Current Home Treatments Blood Pressure monitoring, CPAP machine Marital Status of Patient if Patient Independent Adult: 08/29/2022 Domestic Concerns Denies Nutrition/Health 07/31/2022 Type of diet: Low sodium Appetite Good Eating Difficulties None Caffeine intake amount: no caffeine intake . Physical Examination General: Alert and oriented. Airway: Normal temporomandibular joint mobility, Normal mouth, Normal throat, Normal neck range of motion, Trachea midline. Mallampati classification: II (soft palate, fauces, uvula visible). Head: Normocephalic. Dentition Evaluation: Intact, Own teeth, Denies loose/chipped teeth. Neck: Supple. Respiratory: Lungs are clear to auscultation, Respirations are non-labored. Cardiovascular: Normal rate, No murmur. Heart Sounds: Normal. Gastrointestinal: Soft. Musculoskeletal Normal range of motion. Integumentary: Intact, Warm, Dry. Neurologic: Alert, Oriented. Review / Management Results review: Lab results 10/09/2022 5:36 EST Hand Left 10/08/2022 22 gauge Peripheral IV Activity: Assessed Peripheral IV Dressing Condition: Dry, Intact Peripheral IV Dressing Activity: Transparent dressing Peripheral IV Line Status/Patency: Flushes easily, 3ml normal saline flush Peripheral IV Site Condition: No complications Peripheral IV Equipment: PRN Adaptor 10/09/2022 5:21 EST Temperature Oral 36.5 DegC Heart Rate Monitored 94 bpm Respiratory Rate 18 br/min Systolic Blood Pressure Non-Invasive 104 mmHg Diastolic Blood Pressure Non-Invasive 59 mmHg LOW Blood Pressure Method Automatic Reason For Taking VItal Signs Routine Primary Pain Intensity 0 Primary Pain Nonverbal Response Nods No Pain Scale Type 0-10 Pain scale Monitor Alarms On and Limits Checked Nail Bed Color [place] Capillary Refill < 2 seconds Heart Sounds ICU S1S2 Heart Rhythm Irregular Dorsalis Pedis Pulse, Left 1+ Thready Dorsalis Pedis Pulse, Right 1+ Thready Radial Pulse, Left 2+ Normal Radial Pulse, Right 2+ Normal Cardiac Rhythm Atrial fibrillation Respirations Unlabored Respiratory Pattern Regular Breath Sounds Auscultated Anterior and posterior All Lobes Breath Sounds Clear Cough and Deep Breathe Not done Cough None Oxygen Therapy Room air Oxygen Saturation 94 % Tracheal Position Midline Abdomen Description Non-distended Abdomen Palpation Non-Tender Passing Flatus Yes Bowel Movement Last Date 10/08/2022 Bowel Continence Continent Swallowing Disorder None Bowel Sounds All Quadrants Present Urinary Elimination Voiding, no difficulties Urine Color Yellow Urine Description Medium amount Facial Movement Symmetric resting/crying All Extremity Description Normal for ethnicity Skin Temperature Warm Temperature All Extremities Warm Skin Description Normal for ethnicity Skin Integrity Intact Skin Turgor Elastic Mucous Membrane Color [place] Mucous Membrane Description Moist Sensory Perception Ortiz No impairment Moisture Ortiz Rarely moist Activity Ortiz Walks occasionally Mobility Ortiz No limitations Nutrition Ortiz Adequate Friction and Shear Ortiz No apparent problem Ortiz Score 21 Hospital Acquired Pressure Injury Risk None/minimal risk (score 19-23) Continuous IV Infusions adapted Neurological Language Able to speak clearly Neurological Symptoms Patient denies Gait Steady Extremity Movement Equal Swallowing Difficulty None Characteristics of Communication Appropriate Characteristics of Speech Clear Facial Symmetry Symmetric Level of Consciousness Alert Aspiration Risk None ARDEN Yes Left Pupil Description Regular, Round Right Pupil Description Regular, Round Left Pupil Reaction Brisk Right Pupil Reaction Brisk Pupil Size, Left 3 mm Pupil Size, Right 3 mm Strength All Extremities Strong Left Upper Extremity Sensation Intact Right Upper Extremity Sensation Intact Left Lower Extremity Sensation Intact Right Lower Extremity Sensation Intact CN VII Facial Expression and Symmetry Facial movement symmetrical CN IX, X Swallowing, Gag Reflex Swallowing present Perales Screen Daily History of Fall in Last 3 Months Perales No Presence of Secondary Diagnosis Perales Yes Use of Ambulatory Aid Perales None, bedrest, wheelchair, nurse IV/PRN Adapter Fall Risk Perales No Gait Weak or Impaired Fall Risk Perales Normal, bedrest, immobile Mental Status Fall Risk Perales Oriented to own ability Perales Fall Risk Score 15 Violence Risk Confused No Violence Risk Irritable No Violence Risk Boisterous No Violence Risk Verbal Threats No Violence Risk Physical Threats No Violence Risk Attacking Objects No Violence Risk Predictor Score 0 Violence Risk Intervention None Violence Risk Current Interventions None Affect/Behavior Appropriate, Calm, Cooperative Orientation Oriented x 4 BMAT Existing Patient Condition/Safety No order for Strict Bedrest BMAT Level 1: Sit and Shake Sit, side bed/reach midline/shake hands BMAT Level 2: Stretch and Point Seated position, straighten 1 knee; Flex ankle & point toes BMAT Level 3: Stand Stand up w/o assist/Use of assist device BMAT Level 4: Walk March in place; step forward & back each foot BMAT Mobility Level 4 Activity Status ADL Repositions self, Resting Assistive Device None Standard Safety ID band on, Safety level maintained High Risk Safety Room check performed Demonstrates Correct Call Light Use Yes Eating Difficulties None 10/09/2022 2:52 EST Able To Drink Order Detail Yes Able To Sign Consents Order Detail Yes Code Status Order Detail Full code IV Order Detail Yes Dialysis Schedule Order Detail N/A Has Diabetes Order Detail No Isolation Precautions Order Detail None Nurse Collect Order Detail 0 Oxygen Order Detail No Order Detail No Prior Valve Replacement Order Detail No Transport Mode Order Detail MTT with Monitor Flight Engineer Details Form Flight Engineer Details Form 10/09/2022 1:27 EST Heart Rate Monitored 88 bpm Reason For Taking VItal Signs Routine Primary Pain Intensity 0 Primary Pain Nonverbal Response Appears restful Pain Scale Type Behavioral pain scale Monitor Alarms On and Limits Checked Heart Rhythm Irregular Cardiac Rhythm Atrial fibrillation Monitoring Lead III, V1/MCL1 Alarms On and Functional Yes Heart Rate Alarm Set At - Low 50 Heart Rate Alarm Set At - High 120 Oxygen Therapy BiPAP Continuous IV Infusions adapted Violence Risk Confused No Violence Risk Irritable No Violence Risk Boisterous No Violence Risk Verbal Threats No Violence Risk Physical Threats No Violence Risk Attacking Objects No Violence Risk Predictor Score 0 Violence Risk Intervention None Violence Risk Current Interventions None Activity Status ADL Repositions self, Resting, Sleeping quietly with easy respirations, Up ad preston Beds/Devices Hospital bed Activity Assistance Independent SCD Removed/Off bilateral knee high Standard Safety Safety level maintained High Risk Safety Room check performed Demonstrates Correct Call Light Use Yes 10/08/2022 23:30 EST Electrocardiogram - EKG - CV Completed (In Progress) 10/08/2022 23:30 EST Heart Rate Monitored 87 bpm Respiratory Rate 20 br/min Systolic Blood Pressure Non-Invasive 121 mmHg Diastolic Blood Pressure Non-Invasive 57 mmHg LOW Mean Arterial Pressure (NBP) 77 mmHg Reason For Taking VItal Signs Routine Primary Pain Intensity 0 Primary Pain Nonverbal Response Nods No Pain Scale Type 0-10 Pain scale Monitor Alarms On and Limits Checked Nail Bed Color [place] Heart Rhythm Irregular Dorsalis Pedis Pulse, Left 1+ Thready Dorsalis Pedis Pulse, Right 1+ Thready Radial Pulse, Left 2+ Normal Radial Pulse, Right 2+ Normal Cardiac Rhythm Atrial fibrillation Monitoring Lead III, V1/MCL1 Alarms On and Functional Yes Heart Rate Alarm Set At - Low 50 Heart Rate Alarm Set At - High 120 Respirations Unlabored Respiratory Pattern Regular Breath Sounds Auscultated Anterior only All Lobes Breath Sounds Clear Cough and Deep Breathe Not done Cough None Oxygen Saturation 94 % Tracheal Position Midline Abdomen Description Non-distended Abdomen Palpation Non-Tender Passing Flatus Yes Swallowing Disorder None Urinary Elimination Voiding, no difficulties Skin Temperature Warm Skin Description Normal for ethnicity Skin Integrity Intact Skin Turgor Elastic Mucous Membrane Color [place] Mucous Membrane Description Moist Continuous IV Infusions adapted Hand Left 10/08/2022 22 gauge Peripheral IV Activity: Assessed Peripheral IV Dressing Condition: Dry, Intact Peripheral IV Dressing Activity: Transparent dressing Peripheral IV Line Status/Patency: Flushes easily Peripheral IV Line Care: Secured with tape Peripheral IV Site Condition: No complications Peripheral IV Equipment: PRN Adaptor Neurological Symptoms Patient denies Level of Consciousness Alert Eye Opening Response Lizbeth Spontaneously ARDEN Yes Strength All Extremities Strong Consent Form Signed Yes Pt./Caregiver Remote Cont.Visual Monitor Verbalizes/Nonverbally indicates understanding NPO Status Initiated Standard Safety Safety level maintained High Risk Safety Door open, Room check performed Demonstrates Correct Call Light Use Yes 10/08/2022 23:22 EST Electrocardiogram - EKG - CV Ordered (In Progress) 10/08/2022 23:00 EST Oral Intake 0 mL Urine Voided 900 mL 10/08/2022 21:29 EST dofetilide 125 mcg mcg magnesium oxide 400 mg mg rivaroxaban 20 mg mg 10/08/2022 21:00 EST Urine Voided 500 mL 10/08/2022 20:45 EST Notify date/time 10/08/2022 20:45 Provider Notified TEZ DRIVER MD Details of Results Received called me and advised me to give patient 125 dose of tikosyin and to put order in for lower dose and d/c order for 250 Results Read Back Yes Heart Rate Monitored 84 bpm Reason For Taking VItal Signs Routine Primary Pain Intensity 0 Pain Scale Type 0-10 Pain scale Monitor Alarms On and Limits Checked Heart Rhythm Irregular Cardiac Rhythm Atrial fibrillation Monitoring Lead III, V1/MCL1 Alarms On and Functional Yes Heart Rate Alarm Set At - Low 50 Heart Rate Alarm Set At - High 120 Oxygen Therapy Room air Continuous IV Infusions adapted Forearm Right 10/08/2022 22 gauge Peripheral IV Activity: Discontinued Peripheral IV Removal: Adhesive bandage, Catheter intact, no resistance, Hemostasis within expectedtimeframe Peripheral IV Removal Reason: Site change Hand Left 10/08/2022 22 gauge Peripheral IV Activity: Insert new site Peripheral IV Dressing Condition: Dry, Intact Peripheral IV Dressing Activity: Transparent dressing Peripheral IV Line Status/Patency: Flushes easily, Good blood return Peripheral IV Line Care: Secured with tape Peripheral IV Site Condition: No complications Peripheral IV Equipment: PRN Adaptor Peripheral IV Number of Attempts: 3 Pt./Caregiver Remote Cont.Visual Monitor Verbalizes/Nonverbally indicates understanding Activity Status ADL Repositions self, Resting, Up ad [place], Watching TV Beds/Devices Hospital bed Activity Assistance Independent SCD Removed/Off bilateral knee high Reason SCD Removed/Off Ambulating in room Standard Safety Safety level maintained High Risk Safety Door open, toileting offered, Room check performed Demonstrates Correct Call Light Use Yes 10/08/2022 20:23 EST Notify date/time 10/08/2022 20:23 Provider Notified TEZ DRIVER MD Notification Method Pager Information Communicated EKG result(s), Nurse communication Details Communicated called to clarify tikosyin dose and to let know Qtc 498. calls were made earlier with no response. See prior notifications. Person Reporting Result(s) Reny stated that this was to complicated and I was to get ahold of the fellow for them to look into and they would have to contact him to discuss. Chris lyon/ Shan LEVI and was advised to give 250 dose and follow up with this in AM Results Read Back Yes 10/08/2022 19:44 EST Heart Rate Monitored 82 bpm Reason For Taking VItal Signs Routine Primary Pain Intensity 0 Pain Scale Type 0-10 Pain scale Monitor Alarms On and Limits Checked Nail Bed Color [place] Capillary Refill < 2 seconds Heart Sounds ICU S1S2 Heart Rhythm Irregular Dorsalis Pedis Pulse, Left 1+ Thready Dorsalis Pedis Pulse, Right 1+ Thready Radial Pulse, Left 2+ Normal Radial Pulse, Right 2+ Normal Cardiac Rhythm Atrial fibrillation Monitoring Lead III, V1/MCL1 QRS Duration 0.7 second(s) Alarms On and Functional Yes Heart Rate Alarm Set At - Low 50 Heart Rate Alarm Set At - High 120 Respirations Unlabored Respiratory Pattern Regular Breath Sounds Auscultated Anterior only All Lobes Breath Sounds Clear Cough and Deep Breathe Not done Cough None Oxygen Therapy Room air Tracheal Position Midline Abdomen Description Non-distended Abdomen Palpation Non-Tender Passing Flatus Yes Bowel Movement Last Date 10/08/2022 Swallowing Disorder None Urinary Elimination Voiding, no difficulties Facial Movement Symmetric resting/crying All Extremity Description Normal for ethnicity Skin Temperature Warm Temperature All Extremities Warm Skin Description Normal for ethnicity Skin Integrity Intact Skin Turgor Elastic Mucous Membrane Color [place] Mucous Membrane Description Moist Continuous IV Infusions adapted Forearm Right 10/08/2022 22 gauge Peripheral IV Activity: Assessed Peripheral IV Dressing Condition: Dry, Intact Peripheral IV Dressing Activity: Transparent dressing Peripheral IV Line Status/Patency: Flushes easily Peripheral IV Line Care: Secured with tape Peripheral IV Site Condition: No complications Peripheral IV Equipment: PRN Adaptor Neurological Language Able to speak clearly Neurological Symptoms Patient denies Gait Steady Extremity Movement Equal Swallowing Difficulty None Characteristics of Communication Appropriate Characteristics of Speech Clear Facial Symmetry Symmetric Level of Consciousness Alert Aspiration Risk None Eye Opening Response Lizbeth Spontaneously Best Motor Response [place] Obeys simple commands Best Verbal Response [place] Oriented Lizbeth Coma Score 15 [place] Yes Left Pupil Description Regular Right Pupil Description Regular Left Pupil Reaction Brisk Right Pupil Reaction Brisk Pupil Size, Left 3 mm Pupil Size, Right 3 mm Strength All Extremities Strong Left Upper Extremity Sensation Intact Right Upper Extremity Sensation Intact Left Lower Extremity Sensation Intact Right Lower Extremity Sensation Intact CN V Facial Sensation Corneal reflex present CN VII Facial Expression and Symmetry Facial movement symmetrical CN VIII Hearing Spoken word equally audible left/right CN IX, X Swallowing, Gag Reflex Swallowing present Violence Risk Confused No Violence Risk Irritable No Violence Risk Boisterous No Violence Risk Verbal Threats No Violence Risk Physical Threats No Violence Risk Attacking Objects No Violence Risk Predictor Score 0 Violence Risk Intervention None Violence Risk Current Interventions None Affect/Behavior Appropriate Orientation Oriented x 4 Orientation Assessment Oriented x 4 Pt./Caregiver Remote Cont.Visual Monitor Verbalizes/Nonverbally indicates understanding Activity Status ADL Awake, Repositions self, Resting, Watching TV Beds/Devices Hospital bed Activity Assistance Independent Standard Safety ID band on, Allergy Band on, Call device within reach, Bed in low position, Wheels locked, Upper/Half-Length side-rails up, Phone within reach High Risk Safety Non-Slip footwear, Room check performed Demonstrates Correct Call Light Use Yes 10/08/2022 19:19 EST Temperature Oral 36.5 DegC Heart Rate Monitored 92 bpm Respiratory Rate 20 br/min Systolic Blood Pressure Non-Invasive 116 mmHg Diastolic Blood Pressure Non-Invasive 68 mmHg Blood Pressure Method Manual Blood Pressure Location Left arm Blood Pressure Cuff Size Medium Reason For Taking VItal Signs Routine Oxygen Therapy Room air Oxygen Saturation 91 % LOW Oxygen Flow Rate 0.0 Ambulation Repositions self Pt./Caregiver Remote Cont.Visual Monitor Verbalizes/Nonverbally indicates understanding Activity Status ADL Awake Beds/Devices Hospital bed Activity Assistance Independent Assistive Device None Ambulation Patient Effort Good Standard Safety ID band on, Allergy Band on, Call device within reach, Bed in low position, Wheels locked, Upper/Half-Length side-rails up, Phone within reach, personal items within reach, Assistive devices within reach, Toileting device within reach, Bedside Cart Locked, Safety level maintained High Risk Safety Bathroom light on, Non-Slip footwear, Room check performed Demonstrates Correct Call Light Use Yes 10/08/2022 18:09 EST Notify date/time 10/08/2022 18:09 Provider Notified MACI HARDY MD Notification Method Answering service Notification Outcome No return call (Modified) 10/08/2022 17:15 EST Heart Rate Monitored 101 bpm HI Heart Rhythm Irregular Cardiac Rhythm Atrial fibrillation Alarms On and Functional Yes Activity Status ADL Dangle Standard Safety Safety level maintained High Risk Safety Room check performed 10/08/2022 17:01 EST Post Rehab Outcome Not Done: See ICU flow (Not Done) Able To Drink Order Detail Not Done: See ICU flow (Not Done) Able To Sign Consents Order Detail Not Done: See ICU flow (Not Done) Code Status Order Detail Not Done: See ICU flow (Not Done) IV Order Detail Not Done: See ICU flow (Not Done) Dialysis Schedule Order Detail Not Done: See ICU flow (Not Done) Has Diabetes Order Detail Not Done: See ICU flow (Not Done) Isolation Precautions Order Detail Not Done: See ICU flow (Not Done) Nurse Collect Order Detail Not Done: See ICU flow (Not Done) Oxygen Order Detail Not Done: See ICU flow (Not Done) Order Detail Not Done: See ICU flow (Not Done) Prior Valve Replacement Order Detail Not Done: See ICU flow (Not Done) Transport Mode Order Detail Not Done: See ICU flow (Not Done) Cardiac Rehab - Phase I Not Done (Not Done) Flight Engineer Details Form Not Done (Not Done) 10/08/2022 16:58 EST magnesium oxide 400 mg mg tadalafil 20 mg mg 10/08/2022 16:00 EST Notify date/time 10/08/2022 16:00 Provider Notified MAYO HERNANDEZ MD Notification Method Pager Information Communicated Nurse communication Details Communicated 316 M.M. Received first Tikosyn dose (250 mg) this AM and QTcB was 498. QTcB on admission was 458. Pt is currently in A fib. [place] [id number] Notification Outcome No return call Temperature Oral 36.6 DegC Heart Rate Monitored 90 bpm Respiratory Rate 18 br/min Systolic Blood Pressure Non-Invasive 124 mmHg Diastolic Blood Pressure Non-Invasive 72 mmHg Reason For Taking VItal Signs Routine Oxygen Therapy Room air Oxygen Saturation 92 % LOW Pt./Caregiver Remote Cont.Visual Monitor Verbalizes/Nonverbally indicates understanding Activity Status ADL Awake, Returned to bed, Watching TV Beds/Devices Hospital bed Standard Safety ID band on, Allergy Band on, Call device within reach, Bed in low position, Wheels locked, Upper/Half-Length side-rails up, Phone within reach, personal items within reach, Assistive devices within reach, Safety level maintained, Hazards removed from floor, Non-Slip footwear High Risk Safety Door open, Non-Slip footwear, Room check performed Demonstrates Correct Call Light Use Yes 10/08/2022 15:56 EST Heart Rate Monitored 91 bpm Primary Pain Intensity 0 Pain Scale Type 0-10 Pain scale Monitor Alarms On and Limits Checked Nail Bed Color [place] Capillary Refill < 2 seconds Heart Sounds ICU S1S2 Heart Rhythm Irregular (Modified) Dorsalis Pedis Pulse, Left 1+ Thready Dorsalis Pedis Pulse, Right 1+ Thready Posttibial Pulse, Left 1+ Thready Posttibial Pulse, Right 1+ Thready Radial Pulse, Left 2+ Normal Radial Pulse, Right 2+ Normal Cardiac Rhythm Atrial fibrillation Monitoring Lead III, V1/MCL1 Alarms On and Functional Yes Heart Rate Alarm Set At - Low 50 Heart Rate Alarm Set At - High 120 Respirations Unlabored Respiratory Pattern Regular Breath Sounds Auscultated Anterior and posterior All Lobes Breath Sounds Clear Cough None Oxygen Therapy Room air Abdomen Description Non-distended, Soft Abdomen Palpation Non-Tender Passing Flatus Yes Bowel Movement Last Date 10/08/2022 Bowel Sounds All Quadrants Present Urinary Elimination Voiding, no difficulties Facial Movement Symmetric resting/crying All Extremity Description Normal for ethnicity Skin Temperature Warm Temperature All Extremities Warm Skin Description Normal for ethnicity, Dry Skin Integrity Intact Skin Turgor Elastic Mucous Membrane Color [place] Mucous Membrane Description Moist Sensory Perception Ortiz No impairment Moisture Ortiz Rarely moist Activity Ortiz Walks occasionally Mobility Ortiz No limitations Nutrition Ortiz Adequate Friction and Shear Ortiz No apparent problem Ortiz Score 21 Hospital Acquired Pressure Injury Risk None/minimal risk (score 19-23) Forearm Right 10/08/2022 22 gauge Peripheral IV Activity: Assessed Peripheral IV Dressing Condition: Clean, Dry, Intact Peripheral IV Dressing Activity: Transparent dressing Peripheral IV Line Status/Patency: Flushes easily Peripheral IV Line Care: Secured with tape Peripheral IV Site Condition: No complications Peripheral IV Equipment: PRN Adaptor Neurological Language Able to speak clearly Neurological Symptoms Patient denies Gait Steady Extremity Movement Equal Swallowing Difficulty None Characteristics of Communication Appropriate Characteristics of Speech Clear Facial Symmetry Symmetric Level of Consciousness Alert [place] Yes Left Pupil Description Regular, Round Right Pupil Description Regular, Round Left Pupil Reaction Brisk Right Pupil Reaction Brisk Pupil Size, Left 3 mm Pupil Size, Right 3 mm Strength All Extremities Strong Left Upper Extremity Sensation Intact Right Upper Extremity Sensation Intact Left Lower Extremity Sensation Intact Right Lower Extremity Sensation Intact CN VII Facial Expression and Symmetry Facial movement symmetrical CN IX, X Swallowing, Gag Reflex Swallowing present Violence Risk Confused No Violence Risk Irritable No Violence Risk Boisterous No Violence Risk Verbal Threats No Violence Risk Physical Threats No Violence Risk Attacking Objects No Violence Risk Predictor Score 0 Violence Risk Intervention None Violence Risk Current Interventions None Affect/Behavior Appropriate, Calm, Cooperative Orientation Oriented x 4 Activity Status ADL Ambulating in room Beds/Devices Hospital bed Activity Assistance Independent Standard Safety ID band on, Allergy Band on, Call device within reach, Bed in low position, Wheels locked, Upper/Half-Length side-rails up, Phone within reach, personal items within reach, Safety level maintained, Non-Slip footwear High Risk Safety Room check performed Demonstrates Correct Call Light Use Yes 10/08/2022 13:24 EST cyanocobalamin 1000 mcg mcg potassium chloride 40 mEq mEq vitamin E 100 International_Unit International_Unit 10/08/2022 13:08 EST Electrocardiogram - EKG - CV Completed (In Progress) 10/08/2022 11:46 EST Forearm Right 10/08/2022 22 gauge Peripheral IV Activity: Assessed Peripheral IV Dressing Condition: Clean, Dry, Intact Peripheral IV Dressing Activity: Transparent dressing Peripheral IV Site Condition: No complications Peripheral IV Equipment: PRN Adaptor 10/08/2022 11:29 EST Heart Rate Monitored 83 bpm Reason For Taking VItal Signs Routine Primary Pain Intensity 0 Pain Scale Type 0-10 Pain scale Monitor Alarms On and Limits Checked Nail Bed Color [place] Capillary Refill < 2 seconds Heart Sounds ICU S1S2 Heart Rhythm Irregular Dorsalis Pedis Pulse, Left 2+ Normal Dorsalis Pedis Pulse, Right 2+ Normal Radial Pulse, Left 2+ Normal Radial Pulse, Right 2+ Normal Cardiac Rhythm Atrial fibrillation Monitoring Lead III, V1/MCL1 QRS Duration 0.10 second(s) ST Exclusion Criteria Yes Alarms On and Functional Yes Heart Rate Alarm Set At - Low 50 Heart Rate Alarm Set At - High 120 Respirations Unlabored Respiratory Pattern Regular Breath Sounds Auscultated Anterior and posterior All Lobes Breath Sounds Clear Cough None Oxygen Therapy Room air Urinary Elimination Voiding, no difficulties All Extremity Description [place], Normal for ethnicity Skin Temperature Warm Temperature All Extremities Warm Skin Description [place], Normal for ethnicity Skin Integrity Intact Skin Turgor Elastic Mucous Membrane Color [place] Mucous Membrane Description Moist Neurological Language Able to speak clearly Neurological Symptoms Patient denies Characteristics of Communication Appropriate Characteristics of Speech Clear Level of Consciousness Alert [place] Yes Strength All Extremities Strong Left Upper Extremity Sensation Intact Right Upper Extremity Sensation Intact Left Lower Extremity Sensation Intact Right Lower Extremity Sensation Intact Affect/Behavior Appropriate, Calm, Cooperative Orientation Oriented x 4 Standard Safety Safety level maintained 10/08/2022 10:55 EST dofetilide 250 mcg mcg magnesium oxide 400 mg mg potassium chloride 40 mEq mEq 10/08/2022 10:52 EST Temperature Oral 36.6 DegC Heart Rate Monitored 87 bpm Respiratory Rate 18 br/min Systolic Blood Pressure Non-Invasive 122 mmHg Diastolic Blood Pressure Non-Invasive 76 mmHg Oxygen Therapy Room air Oxygen Saturation 92 % LOW Activity Status ADL Resting, Watching TV Standard Safety ID band on, Allergy Band on, Call device within reach, Bed in low position, Wheels locked, Upper/Half-Length side-rails up, Phone within reach, personal items within reach, Safety level maintained High Risk Safety Room check performed Demonstrates Correct Call Light Use Yes 10/08/2022 10:18 EST Notify date/time 10/08/2022 10:18 Provider Notified MAYO HERNANDEZ MD Notification Method Phone Information Communicated Nurse communication Details Communicated mg 1.8. K 3.4 Details of Results Received will put something in to replace the electrolytes 10/08/2022 10:06 EST Apical Heart Rate 86 bpm aspirin 81 mg mg cholecalciferol 25 mcg mcg metoprolol 12.5 mg mg 10/08/2022 10:01 EST Heart Rate Monitored 86 bpm Systolic Blood Pressure Non-Invasive 127 mmHg Diastolic Blood Pressure Non-Invasive 81 mmHg Mean Arterial Pressure (NBP) 93 mmHg Blood Pressure Method Automatic Monitor Alarms On and Limits Checked 10/08/2022 9:57 EST Activity Status ADL Awake, Resting Standard Safety ID band on, Allergy Band on, Call device within reach, Bed in low position, Wheels locked, Upper/Half-Length side-rails up, Phone within reach, personal items within reach, Safety level maintained High Risk Safety Room check performed Demonstrates Correct Call Light Use Yes 10/08/2022 9:35 EST BMAT Existing Patient Condition/Safety No order for Strict Bedrest BMAT Level 1: Sit and Shake Sit, side bed/reach midline/shake hands BMAT Level 2: Stretch and Point Seated position, straighten 1 knee; Flex ankle & point toes BMAT Level 3: Stand Stand up w/o assist/Use of assist device BMAT Level 4: Walk March in place; step forward & back each foot BMAT Mobility Level 4 10/08/2022 9:34 EST Skin Assessment Verification Admission Violence Risk Confused No Violence Risk Irritable No Violence Risk Boisterous No Violence Risk Verbal Threats No Violence Risk Physical Threats No Violence Risk Attacking Objects No Violence Risk Predictor Score 0 Violence Risk Intervention None Violence Risk Current Interventions None Influenza Vaccine Need No prior receipt of vaccine Influenza Risk Factors age 6 months and older Influenza Vaccine Contraindications None Forego Influenza Vaccination Patient/Caregiver refused vaccine Influenza Vaccine Assessment Influenza Vaccine Assessment 10/08/2022 9:33 EST Able To Drink Order Detail Yes Able To Sign Consents Order Detail Yes Code Status Order Detail Full code IV Order Detail Yes Dialysis Schedule Order Detail N/A Has Diabetes Order Detail No Isolation Precautions Order Detail None Nurse Collect Order Detail 0 Oxygen Order Detail No Order Detail No Prior Valve Replacement Order Detail No Transport Mode Order Detail MTT with Monitor Order (more content not included)... [id number] History and physical note Date of Service 10/08/2022 Chief Complaint AF History of Present Illness Kev is a 62-year-old woman with ASD s/p percutaneous closure 07/2022, pulmonary hypertension on tadalafil,, atrial fibrillation [id number] 2. She is admitted for dofetilide loading from clinic. She denies recent symptoms of congestion, palpitation, lower extremity edema, shortness of breath on exertion, pain, loss of consciousness, in fact she has been feeling better since her percutaneous closure of ASD. Review of Systems Apart from mentioned in HPI, pertinent review of systems is otherwise negative. Physical Exam Vitals and Measurements T: 36.9 C (Oral) HR: 98(Monitored) RR: 18 BP: 108/62 SpO2: 98% HT: 167.6 cm WT: 80.8 kg BMI: 28.76 Weight Dosing Weight: 80.8 kg (10/08/22) General Appearance: Comfortable, not in acute distress Cardiac: S1, S2, no murmurs, irregular rhythm, normal rate, no lower extremity edema, no crackles, no JVP distention, warm extremities. Lungs: No wheezes, normal chest expansion. Abdomen: No tenderness, no distention, normal bowel sounds. Musculoskeletal: No signs of acute synovitis. Neurological: Alert and oriented x3, no focal neurological deficits grossly. Psychiatric: Appropriate, normal mood. Lab Results No 36 Hour Lab Data Assessment/Plan Longstanding persistent nonvalvular AF [id number] 2 failed DCV 06/2022 Chronic diastolic heart failure ASD s/p percutaneous closure 07/2022 Pulmonary hypertension on tadalafil FARSHAD on CPAP CVC: Feliciano 62-year-old woman with longstanding persistent AF, failed DCCV 06/2022, admitted for dofetilide meeting and cardioversion electively. She is free of any cardiac symptoms at the moment, adequately rate controlled. Plan: Start dofetilide loading 150 mg every 12 hours, ECG, BMP, mag, all per protocol N.p.o. for DCCV tomorrow, on with anticoagulation Discussed with Dr. Patrick Hernandez MD Furniture Servicer [employer] or Pager [phone] Problem List/Past Medical History Ongoing ASD secundum ATRIAL FIBRILLATION WITH RVR Back pain CHEST PAIN, ATYPICAL CHEST WALL PAIN Cirrhosis, non-alcoholic DEHYDRATION DIARRHEA Eczema GERD - Gastro-esophageal reflux disease HYPOTHYROIDISM Migraine FARSHAD (obstructive sleep apnea) REFUSED INFLUENZA VACCINE REFUSED PNEUMOCOCCAL VACCINE STEATOHEPATITIS, NONALCOHOLIC SYNCOPE, NEAR Thyroid enlargement Urinary incontinence Historical No qualifying data Procedure/Surgical History Transesophageal echocardiogram: 09/14/22 Cardiac catheterization: 08/29/22 Echocardiogram: 08/15/22 Echocardiogram: 08/08/22 Echocardiogram: 08/07/22 Echocardiogram: 08/07/22 Transesophageal echocardiogram: 08/07/22 Transesophageal echocardiogram: 06/15/22 Spirometry: 04/24/22 Cardiac catheterization: 04/13/22 PFO - Closure of patent foramen ovale Colonoscopy EGD - Esophagogastroduodenoscopy Bunionectomy Tonsillectomy Suspension of bladder Tubal ligation Dilation and curettage Hysteroscopy Medications Home Medications (10) Active aspirin 81 mg oral delayed release tablet 81 mg = 1 tab(s), Oral, Daily bumetanide 1 mg oral tablet 1 mg = 1 tab(s), PRN, Oral, Daily desoximetasone 0.05% topical cream 1 aleena, PRN, Topical, BID metoprolol succinate 25 mg oral TABLET extended release 12.5 mg = 0.5 tab(s), Oral, qDay potassium chloride 20 mEq, Oral, AsDirected Tadalafil (Eqv-Adcirca) 20 mg oral tablet 20 mg = 1 tab(s), Oral, qDay Vitamin B12 1,000 mcg, Oral, qDay Vitamin D3 1000 intl units oral tablet 1,000 unit(s) = 1 tab(s), Oral, qDay vitamin E 100 Int unit, Oral, qDay Xarelto 20 mg oral tablet 20 mg = 1 tab(s), Oral, qHS Allergies predniSONE Bactrim Cigarette smoke Dilaudid HYDROmorphone (Unknown) codeine (HALLUCINATIONS) ibuprofen (Itching) iodinated radiocontrast dyes morphine (Itching) sulfa drugs sulfamethoxazole-trimethoprim (Eruption) Social History Smoking Status - 07/22/2016 Never smoker Alcohol Use: Never., 09/20/2019 Employment/School Status: Employed. Activity Level: Occasional physical work., 10/08/2019 Home/Environment Domestic Concerns: Denies., 08/29/2022 Domestic Concerns: None, Denies. Lives In: Single level home, 1st floor bedroom, 1st floor bathroom. Current Home Treatments Blood Pressure monitoring, CPAP machine. Marital Status: ., 07/31/2022 Nutrition/Health Type of diet: Low sodium. Appetite Good. Eating Difficulties None. Caffeine intake amount: no caffeine intake., 07/31/2022 Substance Abuse Use: Never., 10/08/2019 Tobacco Nicotine Use: Never (less than 100 in lifetime)., 09/20/2019 Family History Atrial fibrillation: Mother and Sister. Cancer: Father and Brother. Cardiac pacemaker: Father and Sister. Deep vein thrombosis: Daughter. Heart failure: Father. High blood pressure: Mother. Pulmonary embolism: Daughter. Stroke: Mother and Sister. Immunizations SARS-CoV-2 mRNA (tozinameran) vaccine: 0.3 unknown unit (10/19/21) SARS-CoV-2 mRNA (tozinameran) vaccine: 0 unknown unit (10/07/21) tetanus/diphth/pertuss (Tdap) adult/adol: 0 unknown unit (06/25/21) Code Status No qualifying data available. Digitally Signed by MAYO HERNANDEZ MD on 10/08/2022 11:38 AM [facility] [id number] Evaluation + Plan noteExtracted from: Title:History and Physical Author:DAVID HERNANDEZ MD Date:10/08/22 Longstanding persistent nonv alvular AF [id number] 2 failed DCV 06/2022 Chronic diastolic heart failure ASD s/p percutaneous closure 07/2022 Pulmonary hypertension on tadalafil FARSHAD on CPAP CVC: Feliciano 62-year-old woman with longstanding persistent AF, failed DCCV 06/2022, admitted for dofetilide meeting and cardioversion electively. She is free of any cardiac symptoms at the moment, adequately rate controlled. Plan: Start dofetilide loading 150 mg every 12 hours, ECG, BMP, mag, all per protocol N.p.o. for DCCV tomorrow, on with anticoagulation Discussed with Dr. Patrick Hernandez MD [employer] or Pager [phone] Addendum by MACI HARDY MD on October 08, 2022 15:37:52 EST I have personally seen, examined and evaluated the patient on 10/08/2022 15:37:55. I have reviewed and agree with the fellow's findings and with the plan of care and management delineated in the fellow's documentation note unless otherwise stated below: Maci Hardy MD Future Appointments Appointment Date:10/24/2022 02:00:00 PM Scheduled Provider: Location:[facility] Appointment Type:CV DRUPAL PROGRAMMER [facility] 01-16-2023 History and physical note Date of Service 10/08/2022 Chief Complaint AF History of Present Illness Kev is a 62-year-old woman with ASD s/p percutaneous closure 07/2022, pulmonary hypertension on tadalafil,, atrial fibrillation [id number] 2. She is admitted for dofetilide loading from clinic. She denies recent symptoms of congestion, palpitation, lower extremity edema, shortness of breath on exertion, pain, loss of consciousness, in fact she has been feeling better since her percutaneous closure of ASD. Review of Systems Apart from mentioned in HPI, pertinent review of systems is otherwise negative. Physical Exam Vitals and Measurements T: 36.9 C (Oral) HR: 98(Monitored) RR: 18 BP: 108/62 SpO2: 98% HT: 167.6 cm WT: 80.8 kg BMI: 28.76 Weight Dosing Weight: 80.8 kg (10/08/22) General Appearance: Comfortable, not in acute distress Cardiac: S1, S2, no murmurs, irregular rhythm, normal rate, no lower extremity edema, no crackles, no JVP distention, warm extremities. Lungs: No wheezes, normal chest expansion. Abdomen: No tenderness, no distention, normal bowel sounds. Musculoskeletal: No signs of acute synovitis. Neurological: Alert and oriented x3, no focal neurological deficits grossly. Psychiatric: Appropriate, normal mood. Lab Results No 36 Hour Lab Data Assessment/Plan Longstanding persistent nonvalvular AF [id number] 2 failed DCV 06/2022 Chronic diastolic heart failure ASD s/p percutaneous closure 07/2022 Pulmonary hypertension on tadalafil FARSHAD on CPAP CVC: Braden 62-year-old woman with longstanding persistent AF, failed DCCV 06/2022, admitted for dofetilide meeting and cardioversion electively. She is free of any cardiac symptoms at the moment, adequately rate controlled. Plan: Start dofetilide loading 150 mg every 12 hours, ECG, BMP, mag, all per protocol N.p.o. for DCCV tomorrow, on with anticoagulation Discussed with Dr. Patrick Hernandez MD [employer] or Pager [phone] Problem List/Past Medical History Ongoing ASD secundum ATRIAL FIBRILLATION WITH RVR Back pain CHEST PAIN, ATYPICAL CHEST WALL PAIN Cirrhosis, non-alcoholic DEHYDRATION DIARRHEA Eczema GERD - Gastro-esophageal reflux disease HYPOTHYROIDISM Migraine FARSHAD (obstructive sleep apnea) REFUSED INFLUENZA VACCINE REFUSED PNEUMOCOCCAL VACCINE STEATOHEPATITIS, NONALCOHOLIC SYNCOPE, NEAR Thyroid enlargement Urinary incontinence Historical No qualifying data Procedure/Surgical History Transesophageal echocardiogram: 09/14/22 Cardiac catheterization: 08/29/22 Echocardiogram: 08/15/22 Echocardiogram: 08/08/22 Echocardiogram: 08/07/22 Echocardiogram: 08/07/22 Transesophageal echocardiogram: 08/07/22 Transesophageal echocardiogram: 06/15/22 Spirometry: 04/24/22 Cardiac catheterization: 04/13/22 PFO - Closure of patent foramen ovale Colonoscopy EGD - Esophagogastroduodenoscopy Bunionectomy Tonsillectomy Suspension of bladder Tubal ligation Dilation and curettage Hysteroscopy Medications Home Medications (10) Active aspirin 81 mg oral delayed release tablet 81 mg = 1 tab(s), Oral, Daily bumetanide 1 mg oral tablet 1 mg = 1 tab(s), PRN, Oral, Daily desoximetasone 0.05% topical cream 1 aleena, PRN, Topical, BID metoprolol succinate 25 mg oral TABLET extended release 12.5 mg = 0.5 tab(s), Oral, qDay potassium chloride 20 mEq, Oral, AsDirected Tadalafil (Eqv-Adcirca) 20 mg oral tablet 20 mg = 1 tab(s), Oral, qDay Vitamin B12 1,000 mcg, Oral, qDay Vitamin D3 1000 intl units oral tablet 1,000 unit(s) = 1 tab(s), Oral, qDay vitamin E 100 Int unit, Oral, qDay Xarelto 20 mg oral tablet 20 mg = 1 tab(s), Oral, qHS Allergies predniSONE Bactrim Cigarette smoke Dilaudid HYDROmorphone (Unknown) codeine (HALLUCINATIONS) ibuprofen (Itching) iodinated radiocontrast dyes morphine (Itching) sulfa drugs sulfamethoxazole-trimethoprim (Eruption) Social History Smoking Status - 07/22/2016 Never smoker Alcohol Use: Never., 09/20/2019 Employment/School Status: Employed. Activity Level: Occasional physical work., 10/08/2019 Home/Environment Domestic Concerns: Denies., 08/29/2022 Domestic Concerns: None, Denies. Lives In: Single level home, 1st floor bedroom, 1st floor bathroom. Current Home Treatments Blood Pressure monitoring, CPAP machine. Marital Status: ., 07/31/2022 Nutrition/Health Type of diet: Low sodium. Appetite Good. Eating Difficulties None. Caffeine intake amount: no caffeine intake., 07/31/2022 Substance Abuse Use: Never., 10/08/2019 Tobacco Nicotine Use: Never (less than 100 in lifetime)., 09/20/2019 Family History Atrial fibrillation: Mother and Sister. Cancer: Father and Brother. Cardiac pacemaker: Father and Sister. Deep vein thrombosis: Daughter. Heart failure: Father. High blood pressure: Mother. Pulmonary embolism: Daughter. Stroke: Mother and Sister. Immunizations SARS-CoV-2 mRNA (tozinameran) vaccine: 0.3 unknown unit (10/19/21) SARS-CoV-2 mRNA (tozinameran) vaccine: 0 unknown unit (10/07/21) tetanus/diphth/pertuss (Tdap) adult/adol: 0 unknown unit (06/25/21) Code Status No qualifying data available. Digitally Signed by MAYO HERNANDEZ MD on 10/08/2022 11:38 AM [id number] Discharge instructions Patient Education 09/14/2022 15:19:08 Cardiac SD - Transesophageal Echocardiogram (ANTON) Discharge Instructions 04/2022(CUSTOM) TRANSESOPHAGEAL ECHOCARDIOGRAM (ANTON) DISCHARGE INSTRUCTIONS TRANSESOPHAGEAL ECHOCARDIOGRAM (ANTON)- A test that uses sound waves to take pictures of your heart. ANTON is done by passing a flexible tube down the esophagus. The esophagus is the tube that carries food from the throat to the stomach. The pictures give detailed images of your heart. This can help the doctor to see if there are problems with your heart. DIET When you wake up, your throat may feel sore and numb. This will get better over time. Do not eat or drink until throat numbness is resolved. Avoid hot liquids for 4-5 hours. Sips of water for 1-2 hours, then resume normal diet. Throat lozenges may be used for minor throat irritation. Do not drink alcohol for 24 hours. ACTIVITY Do not drive or operate machinery for 24 hours if you were given medication to help you relax. Postpone making any legal decisions for 24 hours. MEDICATION/PAIN Do not take dfbq-vrl-rjaovot medicines, vitamins, herbs, or supplements unless instructed by your doctor. Taking medicines such as aspirin and ibuprofen can thin your blood. DRESSING OR WOUND CARE If you had an IV inserted, you may remove the gauze dressing in 1 hour. CALL YOUR DOCTOR IF: You have severe throat pain or any bleeding. You develop any new redness, swelling, or drainage around your IV insertion site. If you have a temperature of 101 degrees or higher. 09/14/2022 14:41:29 General Anesthesia, Adult, Care After General Anesthesia, Adult, Care After This sheet gives you information about how to care for yourself after your procedure. Your health care provider may also give you more specific instructions. If you have problems or questions, contact your health care provider. What can I expect after the procedure? After the procedure, the following side effects are common: Pain or discomfort at the IV site. Nausea. Vomiting. Sore throat. Trouble concentrating. Feeling cold or chills. Weak or tired. Sleepiness and fatigue. Soreness and body aches. These side effects can affect parts of the body that were not involved in surgery. Follow these instructions at home: For at least 24 hours after the procedure: Have a responsible adult stay with you. It is important to have someone help care for you until youare awake and alert. Rest as needed. Do not: ?Participate in activities in which you could fall or become injured. ?Drive. ?Use heavy machinery. ?Drink alcohol. ?Take sleeping pills or medicines that cause drowsiness. ?Make important decisions or sign legal documents. ?Take care of children on your own. Eating and drinking Follow any instructions from your health care provider about eating or drinking restrictions. When you feel hungry, start by eating small amounts of foods that are soft and easy to digest (bland), such as toast. Gradually return to your regular diet. Drink enough fluid to keep your urine pale yellow. If you vomit, rehydrate by drinking water, juice, or clear broth. General instructions If you have sleep apnea, surgery and certain medicines can increase your risk for breathing problems. Follow instructions from your health care provider about wearing your sleep device: ?Anytime you are sleeping, including during daytime naps. ?While taking prescription pain medicines, sleeping medicines, or medicines that make you drowsy. Return to your normal activities as told by your health care provider. Ask your health care provider what activities are safe for you. Take qbii-wxu-xpcctsv and prescription medicines only as told by your health care provider. If you smoke, do not smoke without supervision. Keep all follow-up visits as told by your health care provider. This is important. Contact a health care provider if: You have nausea or vomiting that does not get better with medicine. You cannot eat or drink without vomiting. You have pain that does not get better with medicine. You are unable to pass urine. You develop a skin rash. You have a fever. You have redness around your IV site that gets worse. Get help right away if: You have difficulty breathing. You have chest pain. You have blood in your urine or stool, or you vomit blood. Summary After the procedure, it is common to have a sore throat or nausea. It is also common to feel tired. Have a responsible adult stay with you for the first 24 hours after general anesthesia. It is important to have someone help care for you until you are awake and alert. When you feel hungry, start by eating small amounts of foods that are soft and easy to digest (bland), such as toast. Gradually return to your regular diet. Drink enough fluid to keep your urine pale yellow. Return to your normal activities as told by your health care provider. Ask your health care provider what activities are safe for you. This information is not intended to replace advice given to you by your health care provider. Make sure you discuss any questions you have with your health care provider. Document Released: 12/16/2001 Document Revised: 09/12/2018 Document Reviewed: 04/25/2018 [employer] Patient Education 2020 [employer]. 09/14/2022 14:41:02 3- Cardioversion (06/2018)(CUSTOM) CARDIOVERSION Discharge instructions ACTIVITY/SAFETY Please refrain from the following activities for 24 hours: Do not drive a car or operate heavy equipment. Do not consume alcohol for 24 hours. Do not return to work for 24 hours. Postpone signing any important papers or making important decisions. COMFORT Call your primary doctor if you have any redness, tenderness, warmth, discharge or swelling at yourIV site. Your chest or back may get red and/or develop a burning sensation. Apply fragrance-free Aloe Vera lotion. Take Tylenol as needed for pain. DIET When you return home, resume your regular diet unless otherwise directed. Some of the sedatives, anesthetic medications you received today may make you nauseated. If vomiting persists, call your doctor. Restart your usual medications unless otherwise instructed by your doctor. If you have any questions, please call your doctor at the number listed on your follow up instructions. Document Released: 09/09/2006 Document Revised: 08/26/2013 Document Reviewed: 09/10/2014 ExitCare Patient Information 2015 [employer]. This information is not intended to replace advicegiven to you by your health care provider. Make sure you discuss any questions you have with your health care provider. Follow Up Care 09/04/2022 10:11:43 With:HANK MCMULLEN MD Address: [address] [facility] [address] [place] [address]- [phone] When:09/28/2022 13:30:00 With:MACI HARDY MD Address: [address] [facility] [address] [place] [address]- [phone] When:10/24/2022 14:00:00 [facility] 12-23-2022 Summary of episode note Discharge Instructions Thank you for allowing [facility] to assist you with your healthcare needs. The following is importantdischarge information regarding your hospital visit. Your Care Team LINA ZENDEJAS MD What to do next Scheduled Follow-Up Appointments Appointment Type When Where Contact InformationCV Procedure - Echo (Adult) 09/26/2022 12:00 PM EST Heart [facility] CV OV Structural Heart 09/28/2022 01:30 PM EST [facility] CV OV CHF 10/02/2022 11:30 AM EST [facility] CV DRUPAL PROGRAMMER 10/24/2022 02:00 PM EST [facility] Follow Up Appointments Follow Up with MACI HARDY MD When 10/24/2022 02:00 PM EST Where: [address] [facility] [address] [place] [address]- [phone] Follow Up with HANK MCMULLEN MD When 09/28/2022 01:30 PM EST Where: [address] [facility] [address] [place] [address]- [phone] Medications Please ask your primary doctor or pharmacist before taking any other medication not listed, including over the counter drugs, herbal medications, vitamins and or supplements as they may interact [facility]. What How Much When Instructions Last Dose Unchanged aspirin (aspirin 81 mg oral delayed release tablet) 1 tab(s) by mouth Every day Unchanged bumetanide (bumetanide 1 mg oral tablet) 1 tab(s) by mouth Every day as needed for Swelling/weight gain Unchanged cholecalciferol (Vitamin D3 1000 intl units oral tablet) 1 tab(s) by mouth Once a day Unchanged cyanocobalamin (Vitamin B12) 1,000 Microgram by mouth Once a day Unchanged desoximetasone topical (desoximetasone 0.05% topical cream) 1 application Topical Two (2) times a day as needed for Rash Unchanged metoprolol (metoprolol succinate 25 mg oral TABLET extended release) 0.5 tab(s) by mouth Once a day Do not crush or chew (controlled release) Unchanged rivaroxaban (Xarelto 20 mg oral tablet) 1 tab(s) by mouth Daily at bedtime Begin taking Unchanged tadalafil (Tadalafil (Eqv-Adcirca) 20 mg oral tablet) 1 tab(s) by mouth Once a day Unchanged vitamin E 100 International unit by mouth Once a day Please take this list to your next doctor s visit. Bring all medications you take, including over the counter medications, herbals and other supplements with you to your doctor s visit. Patients and families are reminded to discard old lists and to update any records with all medication providers or retail pharmacies. Education Materials TRANSESOPHAGEAL ECHOCARDIOGRAM (ANTON) DISCHARGE INSTRUCTIONS TRANSESOPHAGEAL ECHOCARDIOGRAM (ANTON)- A test that uses sound waves to take pictures of your heart. ANTON is done by passing a flexible tube down the esophagus. The esophagus is the tube that carries food from the throat to the stomach. The pictures give detailed images of your heart. This can help the doctor to see if there are problems with your heart. DIET When you wake up, your throat may feel sore and numb. This will get better over time. Do not eat or drink until throat numbness is resolved. Avoid hot liquids for 4-5 hours. Sips of water for 1-2 hours, then resume normal diet. Throat lozenges may be used for minor throat irritation. Do not drink alcohol for 24 hours. ACTIVITY Do not drive or operate machinery for 24 hours if you were given medication to help you relax. Postpone making any legal decisions for 24 hours. MEDICATION/PAIN Do not take nskb-nfa-rtuwsoe medicines, vitamins, herbs, or supplements unless instructed by your doctor. Taking medicines such as aspirin and ibuprofen can thin your blood. DRESSING OR WOUND CARE If you had an IV inserted, you may remove the gauze dressing in 1 hour. CALL YOUR DOCTOR IF: You have severe throat pain or any bleeding. You develop any new redness, swelling, or drainage around your IV insertion site. If you have a temperature of 101 degrees or higher. General Anesthesia, Adult, Care After This sheet gives you information about how to care for yourself after your procedure. Your health care provider may also give you more specific instructions. If you have problems or questions, contact your health care provider. What can I expect after the procedure? After the procedure, the following side effects are common: Pain or discomfort at the IV site. Nausea. Vomiting. Sore throat. Trouble concentrating. Feeling cold or chills. Weak or tired. Sleepiness and fatigue. Soreness and body aches. These side effects can affect parts of the body that were not involved in surgery. Follow these instructions at home: For at least 24 hours after the procedure: Have a responsible adult stay with you. It is important to have someone help care for you until youare awake and alert. Rest as needed. Do not: ? Participate in activities in which you could fall or become injured. ? Drive. ? Use heavy machinery. ? Drink alcohol. ? Take sleeping pills or medicines that cause drowsiness. ? Make important decisions or sign legal documents. ? Take care of children on your own. Eating and drinking Follow any instructions from your health care provider about eating or drinking restrictions. When you feel hungry, start by eating small amounts of foods that are soft and easy to digest (bland), such as toast. Gradually return to your regular diet. Drink enough fluid to keep your urine pale yellow. If you vomit, rehydrate by drinking water, juice, or clear broth. General instructions If you have sleep apnea, surgery and certain medicines can increase your risk for breathing problems. Follow instructions from your health care provider about wearing your sleep device: ? Anytime you are sleeping, including during daytime naps. ? While taking prescription pain medicines, sleeping medicines, or medicines that make you drowsy. Return to your normal activities as told by your health care provider. Ask your health care provider what activities are safe for you. Take xgja-die-ivvffcu and prescription medicines only as told by your health care provider. If you smoke, do not smoke without supervision. Keep all follow-up visits as told by your health care provider. This is important. Contact a health care provider if: You have nausea or vomiting that does not get better with medicine. You cannot eat or drink without vomiting. You have pain that does not get better with medicine. You are unable to pass urine. You develop a skin rash. You have a fever. You have redness around your IV site that gets worse. Get help right away if: You have difficulty breathing. You have chest pain. You have blood in your urine or stool, or you vomit blood. Summary After the procedure, it is common to have a sore throat or nausea. It is also common to feel tired. Have a responsible adult stay with you for the first 24 hours after general anesthesia. It is important to have someone help care for you until you are awake and alert. When you feel hungry, start by eating small amounts of foods that are soft and easy to digest (bland), such as toast. Gradually return to your regular diet. Drink enough fluid to keep your urine pale yellow. Return to your normal activities as told by your health care provider. Ask your health care provider what activities are safe for you. This information is not intended to replace advice given to you by your health care provider. Make sure you discuss any questions you have with your health care provider. Document Released: 12/16/2001 Document Revised: 09/12/2018 Document Reviewed: 04/25/2018 [employer] Patient Education 2020 [employer] CARDIOVERSION Discharge instructions ACTIVITY/SAFETY Please refrain from the following activities for 24 hours: Do not drive a car or operate heavy equipment. Do not consume alcohol for 24 hours. Do not return to work for 24 hours. Postpone signing any important papers or making important decisions. COMFORT Call your primary doctor if you have any redness, tenderness, warmth, discharge or swelling at yourIV site. Your chest or back may get red and/or develop a burning sensation. Apply fragrance-free Aloe Vera lotion. Take Tylenol as needed for pain. DIET When you return home, resume your regular diet unless otherwise directed. Some of the sedatives, anesthetic medications you received today may make you nauseated. If vomiting persists, call your doctor. Restart your usual medications unless otherwise instructed by your doctor. If you have any questions, please call your doctor at the number listed on your follow up instructions. Document Released: 09/09/2006 Document Revised: 08/26/2013 Document Reviewed: 09/10/2014 ExitCare Patient Information 2015 [employer]. This information is not intended to replace advicegiven to you by your health care provider. Make sure you discuss any questions you have with your health care provider. Additional Information VACCINATE! IT SAVES LIVES! Members of the community who have not yet received the COVID-19 vaccine and would like to receive it can visit one of [facility] vaccine clinics. There are many vaccine clinic locations within the [facility]. For locations and available times, please visit [email or web address] It is important to note that some COVID mobile vaccine clinics are held outdoors and may be canceled in rainy or stormy conditions. To learn more about pediatric vaccinations (ages 5-11), we invite you to visit the [facility] webpage. [email or web address] learn more about the COVID-19 vaccine, we invite you to visit the [employer] website for a list of frequently asked questions. [email or web address] [employer] Patient Portal Access Instructions: Stay connected with your healthcare team and access your personal medical information anytime with the [employer] Patient Portal.If you would like a full copy of your medical records, please contact the [facility] Medical Records Department, Saturday through Saturday between 8a.m. and 4:30p.m. Please follow the directions below to access the portal: 1.Access the email account you provided upon registration to the [facility].2.Look for an invitation email from [facility].3.Open the email and access the invitation link: Accept Invitation to [facility].Fill in the required العلي to create your account. Sign into [email or web address] with your username and password that you created in the above steps to stay up to date. You can then view a summary of results, a summary of your visits, and the ability to download your summaries to your computer or send the information securely to a physician. Remember that your healthcare information is confidential, so carefully consider who you will allow to register on the [facility] Patient Portal for access to your information. You can also access the [facility] Patient Portal on the [employer] aleena. Simply click on Health Records under [employer] and then click on the [facility] logo. HOW TO SAFELY DISPOSE OF PRESCRIPTION MEDICATIONS Please use one of the following methods to safely dispose of your unused medications. 1.Use a drug disposal kit: the drug disposal pouch allows you to safely discard your old and unuseddrugs. Ask your nurse to give you one when you are discharged.2.Visit a local take-back location: Many local pharmacies and police departments have programs that collect old and unwanted prescriptiondrugs. Call your local pharmacy or go to http://bideo.com.[employer]/6M4Ir4f to find one close to you.3.Make use of household items: Use cat litter or old coffee grounds to dispose medications if other options arenot available. Mix your drugs with these household products, seal them in an airtight container andthrow it into the garbage. Call [facility]: [phone] to be sure your drugs can be disposed of in this way. Some medicines may require a different approach.4.Never flush your medications down the toilet. IF YOU HAVE BEEN PRESCRIBED AN OPIOID FOR PAIN If you have been prescribed an opioid (such as hydrocodone, oxycodone or morphine), it is critical to understand the possible side effects and risks of opioid pain medications. Even when taken as directed, opioids can have several side effects including: Tolerance, meaning you might need to take more of a medication for the same pain relief. Nausea, vomiting and/or constipation. Sleepiness, dizziness, dry mouth, confusion, depression or itching. Physical dependence, meaning you have withdrawal symptoms when a medication is stopped, can develop within a few days. KNOW YOUR RESPONSIBILITIES It is important to know exactly how much and how often to take the opioid pain medications you are prescribed. Never take opioids in higher amounts or more often than prescribed. Do not combine opioids with alcohol or other drugs that cause drowsiness, such as benzodiazepines, also known as benzos, including diazepam and alprazolam, muscle relaxants or sleep aids. Never sell or share prescription opioids. This is illegal. Store opioids in a secure place and out of reach of others (including children, family, friends and visitors). The last page of this document has been signed and retained as a CHART COPY. Signatures Patient Education Materials Cardiac SD - Transesophageal Echocardiogram (ANTON) Discharge Instructions 04/2022(CUSTOM) General Anesthesia, Adult, Care After 3- Cardioversion (06/2018)(CUSTOM) Medication Leaflets My discharge plan and instructions have been reviewed and explained to me and I,DORCAS ANGULO understand my current condition and have read and understand these discharge instructions. I have received a written copy of the plan/instructions. If I have questions, I am aware that I should contact my doctor. 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 Patient location: PSYCHIATRIC. Notes: s/p DCCV. Assessment Postanesthesia assessment Vitals: Vital signs from flowsheet : Vital Signs 09/14/2022 14:08 EST Peripheral Pulse Rate 80 bpm Respiratory Rate 14 br/min Systolic Blood Pressure Non-Invasive 114 mmHg Diastolic Blood Pressure Non-Invasive 60 mmHg , Oxygen Therapy : Oxygen Therapy & Oxygenation Information 09/14/2022 14:08 EST Oxygen Therapy Room air Oxygen Saturation 94 % . Mental status: at preoperative baseline. Respiratory function: respirations are non-labored. Respiratory support: none. CV function: Normal rate, Regular rhythm. Cardiovascular support: none. Pain: Satisfactory. Nausea status: Satisfactory. Postoperative hydration status: within normal limits. Notes: Patient is sufficiently recovered from anesthesia to participate in the evaluation. No follow-up care needed. No complications post-anesthesia.. Digitally Signed by SOPHIA BAIRD MD on 09/14/2022 02:35 PM [facility] [id number] Anesthesiology Consult note Patient: DORCAS ANGULO Age: 62 years Sex: Female : 1960 Associated Diagnoses: None Author: SOPHIA BAIRD MD Preoperative Information Time of last food or liquid consumption: 09/13/2022 23:00:00 Anesthesia history Patient's history: nausea and vomiting with anesthesia. Family's history: negative. History of Present Illness 62 yr old M pt with afib presents for DCCV after ANTON. Pt has hx of ASD closure with Amplatz device recently. PMH: GERD, nonalcoholic cirrhosis, ABARCA, hypthyroidism, migraine, FARSHAD not on CPAP, migraine and syncope. Review of Systems Ear/Nose/Mouth/Throat: Negative except as documented in history of present illness. Respiratory: Negative except as documented in history of present illness. Cardiovascular: Negative except as documented in history of present illness. Gastrointestinal: Negative except as documented in history of present illness. Genitourinary: Negative except as documented in history of present illness. Endocrine: Negative except as documented in history of present illness. Musculoskeletal: Negative except as documented in history of present illness. Integumentary: Negative except as documented in history of present illness. Neurologic: Negative except as documented in history of present illness. Health Status Allergies: Allergic Reactions (Selected) Moderate PredniSONE- No reactions were documented. Severity Not Documented Bactrim- No reactions were documented. Cigarette smoke- No reactions were documented. Codeine- Hallucinations. Dilaudid- No reactions were documented. HYDROmorphone- Unknown. Ibuprofen- Itching. Iodinated radiocontrast dyes- No reactions were documented. Morphine- Itching. Sulfa drugs- No reactions were documented. Sulfamethoxazole-trimethoprim- Eruption., Allergies (11) ActiveReaction predniSONENone Documented BactrimNone Documented Cigarette smokeNone Documented codeineHALLUCINATIONS DilaudidNone Documented HYDROmorphoneUnknown ibuprofenItching iodinated radiocontrast dyesNone Documented morphineItching sulfa drugsNone Documented sulfamethoxazole-trimethoprimEruption Current medications: (Selected) Prescriptions Prescribed Tadalafil (Eqv-Adcirca) 20 mg oral tablet: 20 mg, 1 tab(s), Oral, qDay, 30 tab(s), 0 Refill(s) aspirin 81 mg oral delayed release tablet: 81 mg, 1 tab(s), Oral, Daily, 30 tab(s), 0 Refill(s) bumetanide 1 mg oral tablet: 1 mg, 1 tab(s), Oral, Daily, PRN: Swelling/weight gain, 30 tab(s), 2 Refill(s) metoprolol succinate 25 mg oral TABLET extended release: 12.5 mg, 0.5 tab(s), Oral, qDay, Do not crush or chew (controlled release), 15 tab(s), 6 Refill(s) Documented Medications Documented Vitamin B12: 1,000 mcg, Oral, qDay, 0 Refill(s) Vitamin D3 1000 intl units oral tablet: 1,000 unit(s), 1 tab(s), Oral, qDay, 0 Refill(s) Xarelto 20 mg oral tablet: 20 mg, 1 tab(s), Oral, qHS, Begin taking 08/09/22, 30 tab(s), 0 Refill(s) desoximetasone 0.05% topical cream: 1 aleena, Topical, BID, PRN: Rash, 15 gram(s), 0 Refill(s) vitamin E: 100 Int unit, Oral, qDay, 0 Refill(s), No qualifying data available Problem list: Medical ATRIAL FIBRILLATION WITH RVR / SNOMED CT 7650477599 / Confirmed CHEST PAIN, ATYPICAL / SNOMED CT 826423160 / Confirmed Back pain / SNOMED CT 1782234162 / Confirmed CHEST WALL PAIN / SNOMED CT 430741527 / Confirmed Cirrhosis, non-alcoholic / SNOMED CT 328390854 / Confirmed DEHYDRATION / SNOMED CT 62930747 / Confirmed DIARRHEA / SNOMED CT 376561609 / Confirmed Eczema / SNOMED CT 75871029 / Confirmed GERD - Gastro-esophageal reflux disease / SNOMED CT 9881862865 / Confirmed HYPOTHYROIDISM / SNOMED CT 93560740 / Confirmed REFUSED INFLUENZA VACCINE / SNOMED CT 751443027 / Confirmed Migraine / SNOMED CT 55248217 / Confirmed SYNCOPE, NEAR / SNOMED CT 0698972774 / Confirmed STEATOHEPATITIS, NONALCOHOLIC / SNOMED CT 7953696471 / Confirmed FARSHAD (obstructive sleep apnea) / SNOMED CT 390216066 / Confirmed ASD secundum / SNOMED CT 955129288 / Confirmed Thyroid enlargement / SNOMED CT 476832787 / Confirmed Urinary incontinence / SNOMED CT 1338589389 / Confirmed REFUSED PNEUMOCOCCAL VACCINE / SNOMED CT 7262641532 / Confirmed, Active Problems (28) Anxiety ASD (atrial septal defect) ASD secundum ATRIAL FIBRILLATION WITH RVR Back pain CHEST PAIN, ATYPICAL CHEST WALL PAIN Cirrhosis, non-alcoholic DEHYDRATION DIARRHEA Eczema Exertional shortness of breath GERD - Gastro-esophageal reflux disease HYPOTHYROIDISM Migraine On anticoagulant therapy FARSHAD (obstructive sleep apnea) PONV (postoperative nausea and vomiting) Pulmonary HTN REFUSED INFLUENZA VACCINE REFUSED PNEUMOCOCCAL VACCINE Right heart enlargement Seasonal allergy Sleep apnea with use of continuous positive airway pressure (CPAP) STEATOHEPATITIS, NONALCOHOLIC SYNCOPE, NEAR Thyroid enlargement Urinary incontinence Histories Past Medical History: Active Back pain (7632659736) Migraine (00429434) Urinary incontinence (2875897050) GERD - Gastro-esophageal reflux disease (3557348951) Thyroid enlargement (248424207) Eczema (67666719) Comments: 07/16/2013 EDT 11:50 EDT - [facility] [place] [facility] [place] Family History: Cancer Father () Brother Cardiac pacemaker Father () Sister Atrial fibrillation Sister Mother High blood pressure Mother Heart failure Father () Stroke Mother Sister Pulmonary embolism Daughter Deep vein thrombosis Daughter Procedure history: Cardiac catheterization (14182246) on 04/13/2022 at 61 Years. Suspension of bladder (6399169). Dilation and curettage (43087079). Hysteroscopy (854709777). Tubal ligation (209521251). Bunionectomy (66079039). Tonsillectomy (299226640). Colonoscopy (765570948). EGD - Esophagogastroduodenoscopy (3147828301). PFO - Closure of patent foramen ovale (2843747193). Social History Social & Psychosocial Habits Alcohol 09/20/2019 Use: Never Employment/School 10/08/2019 Status: Employed Activity level: Occasional physical work Substance Abuse 10/08/2019 Use: Never Tobacco 09/20/2019 Tobacco Use: Never (less than 100 in l Home/Environment 07/31/2022 Domestic Concerns Denies, None Lives In 1st floor bathroom, 1st floor bedroom, Single level home Current Home Treatments Blood Pressure monitoring, CPAP machine Marital Status of Patient if Patient Independent Adult: 08/29/2022 Domestic Concerns Denies Nutrition/Health 07/31/2022 Type of diet: Low sodium Appetite Good Eating Difficulties None Caffeine intake amount: no caffeine intake . Physical Examination Vital Signs 09/14/2022 11:57 EST Temperature Oral 36.6 DegC Peripheral Pulse Rate 84 bpm Respiratory Rate 18 br/min Systolic Blood Pressure Non-Invasive 101 mmHg Diastolic Blood Pressure Non-Invasive 44 mmHg Blood Pressure Method Automatic Blood Pressure Location Left arm Blood Pressure Cuff Size Medium Vital Signs(last 24 hrs) Last Charted Temp Oral36.6 DegC (SEP 14 11:57) Resp Rate 18 br/min (SEP 14 11:57) WEV406 mmHg (SEP 14 11:57) DBPC 44mmHg (SEP 14 11:57) Measurements from flowsheet : Measurements 09/14/2022 11:57 EST Height 167 cm Admission Weight 79.7 kg Weight Method Actual [place] Body Weight 58.72 kg Pain assessment: Pain Assessment 09/14/2022 11:57 EST Primary Pain Intensity 0 Pain Scale Type 0-10 Pain scale . General: Alert and oriented, No acute distress. Airway: Normal temporomandibular joint mobility. Mallampati classification: III (soft palate, base of uvula visible). Head: Normocephalic, Atraumatic. Dentition Evaluation: Intact, Own teeth. Neck: Supple, Non-tender. Respiratory: Lungs are clear to auscultation, Respirations are non-labored. Cardiovascular: Normal rate, irregular rhythm.. Heart Sounds: Normal. Gastrointestinal: Soft, Non-tender. Musculoskeletal Normal range of motion. Normal strength. Integumentary: Intact, Warm, Dry. Neurologic: Alert, Oriented, No focal deficits. Review / Management Results review: Labs (Last four charted values) WBC 6.8(SEP 14) Hgb 12.1(SEP 14) Hct 35.7(SEP 14) Plt 196(SEP 14) Na 140(SEP 14) K 3.8(SEP 14) CO2 29(SEP 14) Cl 107(SEP 14) Cr 0.74(SEP 14) BUN 13.0(SEP 14) Glucose 94(SEP 14) Ca 9.3(SEP 14) , Lab results 09/14/2022 13:00 EST Transesophageal Echocardiogram - CV Arrived (In Progress) 09/14/2022 12:23 EST Antecubital Right 09/14/2022 20 gauge Peripheral IV Activity: Insert new site Peripheral IV Dressing Condition: Clean, Dry, Intact Peripheral IV Dressing Activity: Applied, Transparent dressing Peripheral IV Line Status/Patency: Flushes easily, Good blood return Peripheral IV Line Care: Secured with tape Peripheral IV Site Condition: No complications Peripheral IV Equipment: PRN Adaptor Peripheral IV Number of Attempts: 1 09/14/2022 12:20 EST WBC 6.8 10^3/mcL RBC 4.04 10^6/mcL LOW Hgb 12.1 G/dL Hct 35.7 % MCV 88.2 fL MCH 30.0 pg MCHC 33.9 G/dL RDW 16.0 % HI Platelet 196 10^3/mcL MPV 8.3 fL Neutrophil % 71.0 % Lymphocyte % 18.6 % LOW Monocyte % 6.3 % Eosinophil % 3.5 % Basophil % 0.6 % Neutrophil, Absolute 4.8 10^3/mcL Lymphocyte, Absolute 1.3 10^3/mcL Monocyte, Absolute 0.4 10^3/mcL Eosinophil, Absolute 0.2 10^3/mcL Basophil, Absolute 0.0 10^3/mcL Glucose Level 94 mg/dL Sodium Level 140 mEq/L Potassium Level 3.8 mEq/L Chloride 107 mEq/L CO2 29 mEq/L Electrolyte Balance 4.0 mEq/L BUN 13.0 mg/dL Creatinine Lvl (s) 0.74 mg/dL BUN/Creatinine Ratio 17.6 ratio Calcium Lvl 9.3 mg/dL GFR Non- >60 ml/min/1.73sqm NA GFR >60 ml/min/1.73sqm NA Creatinine Clearance Calc 74.01 mL/min 09/14/2022 12:08 EST SN - Preop - CTm - Pt in HL SD Room 09/14/2022 11:45 SN - Preop - CTm - HL Pt Ready for Procedure 09/14/2022 12:22 09/14/2022 11:57 EST Designated Person #1 We May Share PHI Designated Person #1 We May Share PHI Designated Person #1 Relationship Daughter Designated Person #2 We May Share PHI devorah [phone] POA Designated Person #2 Relationship Daughter Additional Designated Person Share PHI Harley rivera [phone] Privacy Restrictions Requested None Height 167 cm Admission Weight 79.7 kg Weight Method Actual [place] Body Weight 58.72 kg Temperature Oral 36.6 DegC Peripheral Pulse Rate 84 bpm Respiratory Rate 18 br/min Systolic Blood Pressure Non-Invasive 101 mmHg Diastolic Blood Pressure Non-Invasive 44 mmHg Blood Pressure Method Automatic Blood Pressure Location Left arm Blood Pressure Cuff Size Medium Primary Pain Intensity 0 Pain Scale Type 0-10 Pain scale Cardiovascular Symptoms Fatigue, Palpitations Dorsalis Pedis Pulse, Left 2+ Normal Dorsalis Pedis Pulse, Right 2+ Normal Posttibial Pulse, Left 2+ Normal Posttibial Pulse, Right 2+ Normal Respirations Unlabored Respiratory Pattern Regular Breath Sounds Auscultated Anterior and posterior All Lobes Breath Sounds Clear Cough Non-Productive, Occasional Oxygen Therapy Room air Oxygen Saturation 96 % Bowel Level of Assistance Complete I Bladder Level of Assistance Complete I Status No, per patient Skin Temperature Warm Skin Description Normal for ethnicity, Dry Skin Integrity Intact IV Present Present Neurological Symptoms Patient denies Extremity Movement Equal Characteristics of Speech Clear Level of Consciousness Alert Strength All Extremities Strong Tone All Extremities Normal Sensation All Extremities Intact Affect/Behavior Appropriate, Calm, Cooperative Orientation Oriented x 4, Follows simple commands Sensory Deficits None Sleep Apnea Snore Yes Sleep Apnea Tired Yes Sleep Apnea Obstruction No Sleep Apnea Pressure Yes Sleep Apnea BMI Yes Sleep Apnea Age Yes Sleep Apnea Neck No Sleep Apnea Gender No Sleep Apnea Score 5 HI High Risk for Sleep Apnea Yes Diagnosed With Sleep Apnea Yes Advanced Directives Yes Advance Directive Type [place] Durable Power of Digital Marketing Program Manager for Health Care Advance Directive Location Patient instructed to bring in copy Infectious Disease Symptoms Patient states no symptoms Infectious Disease Recent Exposure No Alcohol and Drug Use No Employee of Institutional Living No Health Care Employee No History of Exposure to TB No History of Positive Chest X-Ray for TB No History of Positive TB Skin Test No Homeless No Known Immunosuppression No Recent Immigrant No Resident of Institutional Living No Bloody Sputum No Fatigue No Fever No Loss of Appetite No Night Sweats No Persistent Cough > 3 Weeks No Weight Loss No Allergies Yes Consent Form Signed Yes Patient Dressed In Hospital gown History & Physical On Chart Yes Orientation Assessment Oriented x 4 Safety Brochure Information Reviewed Yes [facility] As[facility] Video Viewed Patient refused Barriers to Learning None evident Teaching Method Explanation Teaching Evaluation Verbalizes/Nonverbally indicates understanding Preferred Written Language [place] Preferred Spoken Language [place] Information Given by Patient Patient's Current Physicians Patient's Current Physicians (Modified) Discharge To, Anticipated Home independently Activity Status ADL Awake, Repositions self, Resting Assistive Device None NPO Status Maintained Standard Safety ID band on, Allergy Band on, Call device within reach, Bed in low position, Wheels locked, Upper/Half-Length side-rails up, Phone within reach, personal items within reach, Assistive devices within reach, Safety level maintained, Non-Slip footwear Demonstrates Correct Call Light Use Yes Prev Test Positive/Diagnosis w/COVID-19 Yes Previous COVID-19 Positive Date Oct 2021 Current Quarantine/Isolated any Illness No Any Contact with Sick Animals/Birds No Traveled Anywhere in Last 30 Days No Allergy Band on and Verified Yes Patient ID Band on and Verified Yes Last Fluid Intake 09/13/2022 20:30 Last Food Intake 09/13/2022 20:30 Lost Weight Unintentionally Recently No Eat Poorly Due to Decreased Appetite No Total MST Score 0 No Personal Devices, Patient Valuables None Anesthesia/Transfusions Prior anesthesia Admission Note-Nursing Same Day Patient History (Modified) 09/14/2022 11:52 EST Individuals Taught Patient Learning Readiness Willing to learn Barriers to Learning None evident Teaching Method Explanation Preferred Written Language [place] Preferred Spoken Language [place] General Infection Prevention Strategies Hand hygiene Pre Procedure/Surgery Education Appropriate expectations, Date/Time of procedure/surgery, Hospital gown requirement worn to OR, NPO . Assessment and Plan [place] Society of Anesthesiologists (ASA) physical status classification: Class III. Anesthetic Preoperative Plan Premedication: intravenous. Anesthetic technique: General. Maintenance airway: Mask. Postoperative pain management: Per surgeon. Risks discussed: nausea, vomiting, sore throat, allergic reaction, serious complications. Informed consent: signed by patient. Digitally Signed by SOPHIA BAIRD MD on 09/14/2022 01:10 PM [id number] Discharge instructions Patient Education 08/29/2022 12:02:30 3- Heart Cath/PCI radial (06/2018) (CUSTOM) HEART CATHETERIZATION/PCI (radial) Discharge Instructions DIET Drink plenty of fluids for the next 48 hours to help your kidneys flush the heart cath dye out of your system ACTIVITY For the next 48 hours: Do not deep bend the wrist Do not lift, push, or pull anything over 5 pounds Do not use the hand/arm to support your weight when rising from a chair or bed Do not drive For the next 7 days: Do not submerse your procedure site in water Do not swim, wash dishes, or take tub baths You may write, eat, type, and shower WOUND CARE Keep dressing on site for 24 hours then a Band-Aid Keep a Band-Aid on your procedure site for the next 3-4 days Change the Band-Aid daily or if it gets wet/soiled AFTER YOU GO HOME, CALL YOUR DOCTOR FOR: Any increase in bruising or tenderness from the procedure site Any redness, pus, or other signs of infection at the site A temperature above 100.5 Severe pain at the site DIAL 911 AND RETURN TO THE HOSPITAL FOR: Any bleeding from the procedure site. The site may be bruised or tender, but it should not be bleeding at any time. If your site begins to bleed, hold firm pressure on it and dial 911 to return to the hospital Any increase in swelling at the procedure site. An increase in swelling could mean the area is bleeding under the skin. Hold firm pressure to the site and dial 911 to return to the hospital Document Released: 09/09/2006 Document Revised: 08/26/2013 Document Reviewed: 09/10/2014 [facility] Patient Information 2015 [employer]. This information is not intended to replace advicegiven to you by your health care provider. Make sure you discuss any questions you have with your health care provider. 08/29/2022 12:01:25 Moderate Conscious Sedation, Adult Moderate Conscious Sedation, Adult Sedation is the use of medicines to promote relaxation and relieve discomfort and anxiety. Moderateconscious sedation is a type of sedation. Under moderate conscious sedation, you are less alert than normal, but you are still able to respond to instructions, touch, or both. Moderate conscious sedation is used during short medical and dental procedures. It is milder than deep sedation, which is a type of sedation under which you cannot be easily woken up. It is also milder than general anesthesia, which is the use of medicines to make you unconscious. Moderate conscious sedation allows you to return to your regular activities sooner. Tell a health care provider about: Any allergies you have. All medicines you are taking, including vitamins, herbs, eye drops, creams, and [id number] medicines. Use of steroids (by mouth or creams). Any problems you or family members have had with sedatives and anesthetic medicines. Any blood disorders you have. Any surgeries you have had. Any medical conditions you have, such as sleep apnea. Whether you are or may be . Any use of cigarettes, alcohol, marijuana, or street drugs. What are the risks? Generally, this is a safe procedure. However, problems may occur, including: Getting too much medicine (oversedation). Nausea. Allergic reaction to medicines. Trouble breathing. If this happens, a breathing tube may be used to help with breathing. It will beremoved when you are awake and breathing on your own. Heart trouble. Lung trouble. What happens before the procedure? Staying hydrated Follow instructions from your health care provider about hydration, which may include: Up to 2 hours before the procedure you may continue to drink clear liquids, such as water, clear fruit juice, black coffee, and plain tea. Eating and drinking restrictions Follow instructions from your health care provider about eating and drinking, which may include: 8 hours before the procedure stop eating heavy meals or foods such as meat, fried foods, or fatty foods. 6 hours before the procedure stop eating light meals or foods, such as toast or cereal. 6 hours before the procedure stop drinking milk or drinks that contain milk. 2 hours before the procedure stop drinking clear liquids. Medicine Ask your health care provider about: Changing or stopping your regular medicines. This is especially important if you are taking diabetes medicines or blood thinners. Taking medicines such as aspirin and ibuprofen. These medicines can thin your blood. Do not take these medicines before your procedure if your health care provider instructs you not to. Tests and exams You will have a physical exam. You may have blood tests done to show: ?How well your kidneys and liver are working. ?How well your blood can clot. General instructions Plan to have someone take you home from the hospital or clinic. If you will be going home right after the procedure, plan to have someone with you for 24 hours. What happens during the procedure? An IV tube will be inserted into one of your veins. Medicine to help you relax (sedative) will be given through the IV tube. The medical or dental procedure will be performed. What happens after the procedure? Your blood pressure, heart rate, breathing rate, and blood oxygen level will be monitored often until the medicines you were given have worn off. Do not drive for 24 hours. This information is not intended to replace advice given to you by your health care provider. Make sure you discuss any questions you have with your health care provider. Document Released: 06/04/2002 Document Revised: 08/22/2018 Document Reviewed: 12/29/2016 Incentive Targeting Patient Education 2020 [employer] Connect. Follow Up Care 08/24/2022 09:17:16 With:HANK MCMULLEN MD Address: [address] [place] [address] [address] [facility] [place] [address]- [phone] When:09/28/2022 13:30:00 With:GIOVANNA FELICIANO MD Address: [address] [facility] [address] [facility] [place] [address]- [phone] ext [phone] When:10/02/2022 11:30:00 [facility] 12-07-2022 Summary of episode note Discharge Instructions Thank you for allowing [facility] to assist you with your healthcare needs. The following is importantdischarge information regarding your hospital visit. Your Care Team LINA ZENDEJAS MD What to do next Scheduled Follow-Up Appointments Appointment Type When Where Contact InformationCV Procedure - Echo (Adult) 09/26/2022 12:00 PM EST Heart Lab CV OV Structural Heart 09/28/2022 01:30 PM EST [facility] CV OV CHF 10/02/2022 11:30 AM EST [facility] Follow Up Appointments Follow Up with GIOVANNA FELICIANO MD When 10/02/2022 11:30 AM EST Where: [address] [place] [address]- [phone] ext [phone] Follow Up with HANK MCMULLEN MD When 09/28/2022 01:30 PM EST Where: [address] [place] [address]- [phone] Allergies predniSONE Bactrim Cigarette smoke Dilaudid HYDROmorphone (Unknown) codeine (HALLUCINATIONS) ibuprofen (Itching) iodinated radiocontrast dyes morphine (Itching) sulfa drugs sulfamethoxazole-trimethoprim (Eruption) Medications Please ask your primary doctor or pharmacist before taking any other medication not listed, including over the counter drugs, herbal medications, vitamins and or supplements as they may interact [facility]. What How Much When Instructions Last Dose Unchanged aspirin (aspirin 81 mg oral delayed release tablet) 1 tab(s) by mouth Every day Unchanged bumetanide (bumetanide 1 mg oral tablet) 1 tab(s) by mouth Every day as needed for Swelling/weight gain Unchanged cholecalciferol (Vitamin D3 1000 intl units oral tablet) 1 tab(s) by mouth Once a day Unchanged cyanocobalamin (Vitamin B12) 1,000 Microgram by mouth Once a day Unchanged desoximetasone topical (desoximetasone 0.05% topical cream) 1 application Topical Two (2) times a day as needed for Rash Unchanged metoprolol (metoprolol succinate 25 mg oral TABLET extended release) 0.5 tab(s) by mouth Once a day Do not crush or chew (controlled release) Unchanged rivaroxaban (Xarelto 20 mg oral tablet) 1 tab(s) by mouth Daily at bedtime Begin taking Unchanged tadalafil (Tadalafil (Eqv-Adcirca) 20 mg oral tablet) 1 tab(s) by mouth Once a day Unchanged vitamin E 100 International unit by mouth Once a day Please take this list to your next doctor s visit. Bring all medications you take, including over the counter medications, herbals and other supplements with you to your doctor s visit. Patients and families are reminded to discard old lists and to update any records with all medication providers or retail pharmacies. Education Materials HEART CATHETERIZATION/PCI (radial) Discharge Instructions DIET Drink plenty of fluids for the next 48 hours to help your kidneys flush the heart cath dye out of your system ACTIVITY For the next 48 hours: Do not deep bend the wrist Do not lift, push, or pull anything over 5 pounds Do not use the hand/arm to support your weight when rising from a chair or bed Do not drive For the next 7 days: Do not submerse your procedure site in water Do not swim, wash dishes, or take tub baths You may write, eat, type, and shower WOUND CARE Keep dressing on site for 24 hours then a Band-Aid Keep a Band-Aid on your procedure site for the next 3-4 days Change the Band-Aid daily or if it gets wet/soiled AFTER YOU GO HOME, CALL YOUR DOCTOR FOR: Any increase in bruising or tenderness from the procedure site Any redness, pus, or other signs of infection at the site A temperature above 100.5 Severe pain at the site DIAL 911 AND RETURN TO THE HOSPITAL FOR: Any bleeding from the procedure site. The site may be bruised or tender, but it should not be bleeding at any time. If your site begins to bleed, hold firm pressure on it and dial 911 to return to the hospital Any increase in swelling at the procedure site. An increase in swelling could mean the area is bleeding under the skin. Hold firm pressure to the site and dial 911 to return to the hospital Document Released: 09/09/2006 Document Revised: 08/26/2013 Document Reviewed: 09/10/2014 ExitCare Patient Information 2015 [employer]. This information is not intended to replace advicegiven to you by your health care provider. Make sure you discuss any questions you have with your health care provider. Moderate Conscious Sedation, Adult Sedation is the use of medicines to promote relaxation and relieve discomfort and anxiety. Moderateconscious sedation is a type of sedation. Under moderate conscious sedation, you are less alert than normal, but you are still able to respond to instructions, touch, or both. Moderate conscious sedation is used during short medical and dental procedures. It is milder than deep sedation, which is a type of sedation under which you cannot be easily woken up. It is also milder than general anesthesia, which is the use of medicines to make you unconscious. Moderate conscious sedation allows you to return to your regular activities sooner. Tell a health care provider about: Any allergies you have. All medicines you are taking, including vitamins, herbs, eye drops, creams, and xzkx-huc-lhcgrjh medicines. Use of steroids (by mouth or creams). Any problems you or family members have had with sedatives and anesthetic medicines. Any blood disorders you have. Any surgeries you have had. Any medical conditions you have, such as sleep apnea. Whether you are or may be . Any use of cigarettes, alcohol, marijuana, or street drugs. What are the risks? Generally, this is a safe procedure. However, problems may occur, including: Getting too much medicine (oversedation). Nausea. Allergic reaction to medicines. Trouble breathing. If this happens, a breathing tube may be used to help with breathing. It will beremoved when you are awake and breathing on your own. Heart trouble. Lung trouble. What happens before the procedure? Staying hydrated Follow instructions from your health care provider about hydration, which may include: Up to 2 hours before the procedure you may continue to drink clear liquids, such as water, clear fruit juice, black coffee, and plain tea. Eating and drinking restrictions Follow instructions from your health care provider about eating and drinking, which may include: 8 hours before the procedure stop eating heavy meals or foods such as meat, fried foods, or fatty foods. 6 hours before the procedure stop eating light meals or foods, such as toast or cereal. 6 hours before the procedure stop drinking milk or drinks that contain milk. 2 hours before the procedure stop drinking clear liquids. Medicine Ask your health care provider about: Changing or stopping your regular medicines. This is especially important if you are taking diabetes medicines or blood thinners. Taking medicines such as aspirin and ibuprofen. These medicines can thin your blood. Do not take these medicines before your procedure if your health care provider instructs you not to. Tests and exams You will have a physical exam. You may have blood tests done to show: ? How well your kidneys and liver are working. ? How well your blood can clot. General instructions Plan to have someone take you home from the hospital or clinic. If you will be going home right after the procedure, plan to have someone with you for 24 hours. What happens during the procedure? An IV tube will be inserted into one of your veins. Medicine to help you relax (sedative) will be given through the IV tube. The medical or dental procedure will be performed. What happens after the procedure? Your blood pressure, heart rate, breathing rate, and blood oxygen level will be monitored often until the medicines you were given have worn off. Do not drive for 24 hours. This information is not intended to replace advice given to you by your health care provider. Make sure you discuss any questions you have with your health care provider. Document Released: 06/04/2002 Document Revised: 08/22/2018 Document Reviewed: 12/29/2016 Incentive Targeting Patient Education 2020 [employer] Additional Information VACCINATE! IT SAVES LIVES! Members of the community who have not yet received the COVID-19 vaccine and would like to receive it can visit one of [facility] vaccine clinics. There are many vaccine clinic locations within the [facility]. For locations and available times, please visit [email or web address] It is important to note that some COVID mobile vaccine clinics are held outdoors and may be canceled in rainy or stormy conditions. To learn more about pediatric vaccinations (ages 5-11), we invite you to visit the [facility] webpage. [email or web address] learn more about the COVID-19 vaccine, we invite you to visit the [facility] website for a list of frequently asked questions. [email or web address] [facility] Patient Portal Access Instructions: Stay connected with your healthcare team and access your personal medical information anytime with the [facility] [employer] Patient Portal.If you would like a full copy of your medical records, please contact the [facility] Medical Records Department, Saturday through Saturday between 8a.m. and 4:30p.m. Please follow the directions below to access the portal: 1.Access the email account you provided upon registration to the hospital.2.Look for an invitation email from [facility].3.Open the email and access the invitation link: Accept Invitation to [facility]4.Fill in the required العلي to create your account. Sign into [email or web address] with your username and password that you created in the above steps to stay up to date. You can then view a summary of results, a summary of your visits, and the ability to download your summaries to your computer or send the information securely to a physician. Remember that your healthcare information is confidential, so carefully consider who you will allow to register on the [facility] Patient Portal for access to your information. You can also access the [facility] Patient Portal on the [employer]Data. Simply click on Health Records under SCM-GL and then click on the [facility] logo. HOW TO SAFELY DISPOSE OF PRESCRIPTION MEDICATIONS Please use one of the following methods to safely dispose of your unused medications. 1.Use a drug disposal kit: the drug disposal pouch allows you to safely discard your old and unuseddrugs. Ask your nurse to give you one when you are discharged.2.Visit a local take-back location: Many local pharmacies and police departments have programs that collect old and unwanted prescriptiondrugs. Call your local pharmacy or go to http://bideo.com.[employer]/0K9Oi2e to find one close to you.3.Make use of household items: Use cat litter or old coffee grounds to dispose medications if other options arenot available. Mix your drugs with these household products, seal them in an airtight container andthrow it into the garbage. Call [facility]: [phone] to be sure your drugs can be disposed of in this way. Some medicines may require a different approach.4.Never flush your medications down the toilet. IF YOU HAVE BEEN PRESCRIBED AN OPIOID FOR PAIN If you have been prescribed an opioid (such as hydrocodone, oxycodone or morphine), it is critical to understand the possible side effects and risks of opioid pain medications. Even when taken as directed, opioids can have several side effects including: Tolerance, meaning you might need to take more of a medication for the same pain relief. Nausea, vomiting and/or constipation. Sleepiness, dizziness, dry mouth, confusion, depression or itching. Physical dependence, meaning you have withdrawal symptoms when a medication is stopped, can develop within a few days. KNOW YOUR RESPONSIBILITIES It is important to know exactly how much and how often to take the opioid pain medications you are prescribed. Never take opioids in higher amounts or more often than prescribed. Do not combine opioids with alcohol or other drugs that cause drowsiness, such as benzodiazepines, also known as benzos, including diazepam and alprazolam, muscle relaxants or sleep aids. Never sell or share prescription opioids. This is illegal. Store opioids in a secure place and out of reach of others (including children, family, friends and visitors). The last page of this document has been signed and retained as a CHART COPY. Signatures Patient Education Materials 3- Heart Cath/PCI radial (06/2018) (CUSTOM) Moderate Conscious Sedation, Adult Medication Leaflets My discharge plan and instructions have been reviewed and explained to me and I,DORCAS ANGULO understand my current condition and have read and understand these discharge instructions. I have received a written copy of the plan/instructions. If I have questions, I am aware that I should contact my doctor. 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 Coronary angiography revealed no significant obstructive CAD. Allergies predniSONE Bactrim Cigarette smoke Dilaudid HYDROmorphone (Unknown) codeine (HALLUCINATIONS) ibuprofen (Itching) iodinated radiocontrast dyes morphine (Itching) sulfa drugs sulfamethoxazole-trimethoprim (Eruption) Consults No qualifying data available. Objective Vitals and Measurements T: 36.8 C (Oral) HR: 98 RR: 16 BP: 117/64 SpO2: 94% HT: 167.6 cm WT: 79.3 kg BMI: 28.23 BMI: 28.23 Weight Dosing Weight: 79.3 kg (08/29/22) Code Status No qualifying data available. Medications Unchanged aspirin (aspirin 81 mg oral delayed release tablet)1 tab(s) by mouth every day. Refills: 0. bumetanide (bumetanide 1 mg oral tablet)1 tab(s) by mouth every day as needed Swelling/weight gain.Refills: 2. cholecalciferol (Vitamin D3 1000 intl units oral tablet)1 tab(s) by mouth once a day. cyanocobalamin (Vitamin B12)1,000 Microgram by mouth once a day. desoximetasone topical (desoximetasone 0.05% topical cream)1 application Topical two (2) times a day as needed Rash. metoprolol (metoprolol succinate 25 mg oral TABLET extended release)0.5 tab(s) by mouth once a day.Do not crush or chew (controlled release). Refills: 6. rivaroxaban (Xarelto 20 mg oral tablet)1 tab(s) by mouth daily at bedtime. Begin taking 08/09/22. tadalafil (Tadalafil (Eqv-Adcirca) 20 mg oral tablet)1 tab(s) by mouth once a day. Refills: 0. vitamin E100 International unit by mouth once a day. Follow Up Follow Up with GIOVANNA FELICIANO MD When 10/02/2022 11:30 AM EST Where: [address] [facility] [address] [place] [address]- [phone] ext [phone] Follow Up with HANK MCMULLEN MD When 09/28/2022 01:30 PM EST Where: [address] [facility] [place] [address]- [phone] Follow Up Appointments No qualifying data available. Follow Up Labs/Studies Discharge Labs No Follow-up Labs Discharge Studies No Follow-up Studies Discharge Diet No qualifying data available. Discharge Activity No qualifying data available. Readmission Risk/Palliative Score No qualifying data available. Digitally Signed by HANK MCMULLEN MD on 08/29/2022 11:15 AM [id number] Evaluation note* Encounter Date Assessment Date Assessment 08/23/2022 08/23/2022 mammo and colono scopy on hold until cardiac eval completed [facility] 07-21-2022 Hospital Discharge instructions Patient Education 04/12/2022 12:45:16 3- Heart Cath/PCI groin (06/2018) (CUSTOM) HEART CATHETERIZATION/PCI (groin) Discharge Instructions DIET INSTRUCTIONS Drink plenty of fluids for the next 48 hours to help your kidneys flush the heart cath dye out of your system ACTIVITIES May go up and down stairs CAREFULLY Do not drive car FOR 24 HOURS No heavy lifting GREATER THAN 10 POUNDS or pushing or straining FOR 2 DAYS Someone must stay with you at home after the procedure until the morning. BATHING/SHOWERING May tub bathe in 1 week May shower tomorrow WOUND CARE You will go home with a dressing over your heart cath site. Remove the dressing tomorrow and apply a band-aid. Keep a Band-Aid on for the next 24 hours and then leave open to air. Some degree of bruising and tenderness is normal around the heart cath site. It will take a while for any bruising to completely resolve. Keep your site clean and dry. You need to report the following to your lacing string cutter: Any draining or oozing from the site Any swelling at the site Any increased pain or tenderness at the site Any numbness in your leg where the procedure was done Any signs of infection IMPORTANT! CALL 911 FOR ANY BLEEDING OR SWELLING AT THE PROCEDURE SITE If there is any large amount of bleeding, you or someone else need to apply direct pressure to the site (just like the nurse did in the heart lab after your procedure). It is very important that you hold constant pressure. Do not release the pressure to check if the bleeding has stopped. You then need to be transported to the nearest emergency room. WATCH FOR SIGNS OF INFECTION (Usually appears 36-48 hours after surgery) A temperature above 100.5 Redness or swelling Increased pain Foul odor or drainage If you have any questions, please call your doctor at the number listed on your follow up instructions. Follow all instructions given to you by your physician Document Released: 09/09/2006 Document Revised: 08/26/2013 Document Reviewed: 09/10/2014 ExitCare Patient Information 2015 [employer]. This information is not intended to replace advicegiven to you by your health care provider. Make sure you discuss any questions you have with your health care provider. Follow Up Care 04/03/2022 08:50:49 With:GIOVANNA FELICIANO MD Address: [address] [facility] [address] [place] [address]- [phone] When: Unknown Comments:Follow-up as scheduled With:LINA ZENDEJAS MD, [facility], Internal Medicine Address: [facility] [address] [place] [phone] [phone] When: only if needed [facility] 07-21-2022 Summary of episode note Discharge Instructions Thank you for allowing [facility] to assist you with your healthcare needs. The following is importantdischarge information regarding your hospital visit. Your Care Team LINA ZENDEJAS MD What to do next Scheduled Follow-Up Appointments Appointment Type When Where Contact InformationCV Procedure - Echo (Adult) 04/18/2022 11:00 AM EDT Heart Lab Follow Up Appointments Follow Up with GIOVANNA FELICIANO MD When Why: Follow-up as scheduled Where: [address] [facility] [address] [place] [address] [phone] Follow Up with LINA ZENDEJAS MD, [facility], Internal Medicine When Only if needed Where: [facility] [address] [place] [phone] The Following Activity and Diet Have Been Ordered for You No qualifying data available. No qualifying data available. The Following Equipment Has Been Ordered for You No qualifying data available. The Following Treatments Have Been Ordered for You Discharge Labs No qualifying data available. Discharge Radiology No qualifying data available. Other Therapies No qualifying data available. Post Acute Orders No qualifying data available. Someone Will Contact You Regarding These Home Health Referrals No home referrals have been ordered for you. No one will call you. Allergies Bactrim Cigarette smoke Dilaudid HYDROmorphone (Unknown) codeine (HALLUCINATIONS) ibuprofen (Itching) iodinated radiocontrast dyes morphine (Itching) sulfa drugs sulfamethoxazole-trimethoprim (Eruption) Medications Please ask your primary doctor or pharmacist before taking any other medication not listed, including over the counter drugs, herbal medications, vitamins and or supplements as they may interact [facility]. What How Much When Instructions Last Dose New bumetanide (bumetanide 1 mg oral tablet) 1 tab(s) by mouth Every day Refills: 2 Pickup at [facility] [address] New potassium chloride (potassium chloride 20 mEq oral tablet, extended release) 1 tab(s) by mouth Once a day Take with food Pickup at [facility] [address] Unchanged cholecalciferol (Vitamin D3 1000 intl units oral tablet) 1 tab(s) by mouth Once a day Unchanged cyanocobalamin (Vitamin B12) Unchanged rivaroxaban (Xarelto 20 mg oral tablet) 1 tab(s) by mouth Daily at bedtime Unchanged vitamin E by mouth Once a day Pharmacy Information [facility] [address]: [address] [place] [phone] Please take this list to your next doctor s visit. Bring all medications you take, including over the counter medications, herbals and other supplements with you to your doctor s visit. Patients and families are reminded to discard old lists and to update any records with all medication providers or retail pharmacies. Medication Leaflets potassium chloride (oral/injection) (perez TASS ee um) Dion Potassium 99, Klor-Con, K-Tab, Potassium Chloride Proamp What is the most important information I should know about potassium chloride? You should not use this medicine if you have high levels of potassium in your blood (hyperkalemia),or if you also take a 'potassium-sparing' diuretic. What is potassium chloride? Potassium is a mineral that is needed for several functions of your body, especially the beating ofyour heart. Potassium chloride is used to prevent or to treat low blood levels of potassium (hypokalemia). Potassium levels can be low as a result of a disease or from taking certain medicines, or after a prolonged illness with diarrhea or vomiting. Potassium chloride may also be used for purposes not listed in this medication guide. What should I discuss with my healthcare provider before taking potassium chloride? You should not use potassium chloride if you are allergic to it, or if: you have high levels of potassium in your blood (hyperkalemia); or you take a 'potassium-sparing' diuretic (water pill) such as amiloride, spironolactone, or triamterene. Tell your doctor if you have ever had: heart problems; high blood pressure; liver or kidney disease; a large tissue injury such as a severe burn; an electrolyte imbalance (such as low levels of calcium or magnesium in your blood); trouble swallowing; slow digestion; stomach bleeding, an ulcer, or a blockage in your stomach or intestines; an adrenal gland disorder; diabetes; or severe dehydration. Tell your doctor if you are or . How should I take potassium chloride? Follow all directions on your prescription label and read all medication guides or instruction sheets. Your doctor may occasionally change your dose. Use the medicine exactly as directed. Potassium chloride oral is taken by mouth. Potassium chloride injection is given as a slow infusioninto a vein. A healthcare provider will give you this medicine by injection if you have severely low potassium levels. Tell your caregivers if you feel any burning, pain, or swelling around the IV needle when potassium chloride is injected. Take oral potassium chloride with food if the medicine upsets your stomach. Always follow directions on the medicine label about giving this medicine to a child. Take the tablet or capsule with a full glass of water. Do not crush, chew, or suck on a potassium tablet or capsule. Sucking on the pill could irritate your mouth or throat. Measure liquid medicine carefully. Use the dosing syringe provided, or use a medicine dose-measuring device (not a kitchen spoon). Mix the oral solution with least 4 ounces of water before taking it. You may need to follow a special diet while using potassium chloride. Follow all instructions of your doctor or dietitian. Learn about the foods to eat or avoid to help control your condition. Call your doctor if you have trouble swallowing a potassium chloride capsule or tablet. You may be able to dissolve the tablet in water, or mix the medicine from a capsule with soft food. Carefully follow your doctor's instructions. You may need frequent medical tests. Your heart function may need to be checked using an electrocardiograph or ECG (sometimes called an EKG). Even if you have no symptoms, tests can help your doctor determine if this medicine is effective. Some tablets are made with a shell that is not absorbed or melted in the body. Part of this shell may appear in your stool. This is normal and will not make the medicine less effective. Store at room temperature away from moisture, heat, and light. Keep the medication in a closed container. What happens if I miss a dose? Take the medicine as soon as you can, but skip the missed dose if it is almost time for your next dose. Do not take two doses at one time. What happens if I overdose? Seek emergency medical attention or call the Poison Help line at . Overdose symptoms may include stomach pain, vomiting, irregular heartbeats, chest pain, muscle weakness, loss of movement, numbness or tingling, or feeling light-headed. What should I avoid while taking potassium chloride? Do not use potassium supplements or other products that contain potassium, unless your doctor has told you to. Salt substitutes or low-salt foods often contain potassium. Read the label of any food or medicine to see if it contains potassium. What are the possible side effects of potassium chloride? Get emergency medical help if you have signs of an allergic reaction: hives; difficult breathing; swelling of your face, lips, tongue, or throat. Stop using potassium chloride and call your doctor at once if you have: severe throat irritation; chest pain, trouble breathing; pain, burning, bruising, swelling, irritation, or skin changes where the medicine was injected; stomach bloating, severe vomiting, severe stomach pain; high potassium level--nausea, weakness, tingly feeling, chest pain, irregular heartbeats, loss of movement; or signs of stomach bleeding--bloody or tarry stools, coughing up blood or vomit that looks like coffee grounds. Common side effects may include: nausea, vomiting, diarrhea; gas, stomach pain; or the appearance of a potassium chloride tablet in your stool. This is not a complete list of side effects and others may occur. Call your doctor for medical advice about side effects. You may report side effects to FDA at 2-336-RCO-9585. What other drugs will affect potassium chloride? Tell your doctor about all your other medicines, especially: medicine to prevent organ transplant rejection; a diuretic or 'water pill'; or heart or blood pressure medication. This list is not complete. Other drugs may affect potassium chloride, including prescription and edtj-swo-hzibzcc medicines, vitamins, and herbal products. Not all possible drug interactions are listed here. Where can I get more information? Your pharmacist can provide more information about potassium chloride. Remember, keep this and all other medicines out of the reach of children, never share your medicines with others, and use this medication only for the indication prescribed. Every effort has been made to ensure that the information provided by [employer]. ('[employer]') is accurate, up-to-date, and complete, but no guarantee is made to that effect. Drug information contained herein may be time sensitive. [employer] information has been compiled for use by healthcare practitioners and consumers in the [place] and therefore [employer] does not warrant that uses outside of the [place] are appropriate, unless specifically indicated otherwise. [employer] drug information does not endorse drugs, diagnose patients or recommend therapy. [employer] drug information isan informational resource designed to assist licensed healthcare practitioners in caring for their p atients and/or to serve consumers viewing this service as a supplement to, and not a substitute for, the expertise, skill, knowledge and judgment of healthcare practitioners. The absence of a warningfor a given drug or drug combination in no way should be construed to indicate that the drug or drug combination is safe, effective or appropriate for any given patient. [employer] does not assume any responsibility for any aspect of healthcare administered with the aid of information [employer] provides. The information contained herein is not intended to cover all possible uses, directions, precautions, warnings, drug interactions, allergic reactions, or adverse effects. If you have questions about the drugs you are taking, check with your doctor, nurse or pharmacist. Copyright 0750-1514 [employer]. Version: 14.. Revision Date: 02/18/2020. bumetanide (oral/injection) (byoo MET a nide) Bumex What is the most important information I should know about bumetanide? You should not use bumetanide if you are unable to urinate, if you have severe kidney or liver disease, if you are severely dehydrated, or if you have an electrolyte imbalance (low potassium or magnesium). What is bumetanide? Bumetanide is diuretic that is used to treat fluid retention (edema) in people with congestive heart failure, liver disease, or a kidney disorder such as nephrotic syndrome. Bumetanide may also be used for purposes not listed in this medication guide. What should I discuss with my healthcare provider before using bumetanide? You should not use bumetanide if you are allergic to it, or if you have: severe kidney disease or are unable to urinate; severe liver disease or cirrhosis; severe dehydration; or an electrolyte imbalance (such as low levels of potassium or magnesium in your blood). Tell your doctor if you have ever had: a heart rhythm disorder; liver disease; kidney disease (or if you are on dialysis); gout; an allergy to sulfa drugs; or if you are on a low-salt diet. Tell your doctor if you are or breast-feeding. Bumetanide is not approved for use by anyone younger than 18 years old. How should I take bumetanide? Follow all directions on your prescription label and read all medication guides or instruction sheets. Your doctor may occasionally change your dose. Use the medicine exactly as directed. Bumetanide injection is injected into a muscle, or given as an infusion into a vein. A healthcare provider will give you this injection if you are unable to take the medicine by mouth. Bumetanide will make you urinate more often and you may get dehydrated easily. Follow your doctor'sinstructions about taking potassium supplements or getting enough salt and potassium in your diet. Call your doctor if you are sick with vomiting or diarrhea, or if you are sweating more than usual.You can easily become dehydrated while taking bumetanide. This can lead to very low blood pressure,a serious electrolyte imbalance, or kidney failure. You will need frequent medical tests. Store at room temperature away from heat, moisture, and light. What happens if I miss a dose? Bumetanide is sometimes used only once, so you may not be on a dosing schedule. If you are on a dosing schedule, take the medicine as soon as you can, but skip the missed dose if it is almost time for your next dose. Do not take two doses at one time. What happens if I overdose? Seek emergency medical attention or call the Poison Help line at . Overdose symptoms may include extreme dizziness or weakness, confusion, loss of appetite, stomach cramps, and vomiting. What should I avoid while taking bumetanide? Avoid becoming dehydrated. Follow your doctor's instructions about the type and amount of liquids you should drink while you are taking bumetanide. What are the possible side effects of bumetanide Get emergency medical help if you have signs of an allergic reaction: hives; difficult breathing; swelling of your face, lips, tongue, or throat. Call your doctor at once if you have: hearing problems; confusion, hallucinations, problems with thought or memory; trouble speaking or understanding what is said to you; unusual weakness; twitching, or a seizure; weak or shallow breathing; easy bruising, unusual bleeding, purple or red spots under your skin; low magnesium--dizziness, irregular heartbeats, feeling jittery, muscle cramps, muscle spasms, cough or choking feeling; low potassium level--leg cramps, constipation, irregular heartbeats, fluttering in your chest, increased thirst or urination, numbness or tingling, muscle weakness or limp feeling; or dehydration symptoms--feeling very thirsty or hot, being unable to urinate, heavy sweating, or hot and dry skin. Common side effects may include: muscle cramps; dizziness; low blood presure; nausea; or headache. This is not a complete list of side effects and others may occur. Call your doctor for medical advice about side effects. You may report side effects to FDA at 9-267-SOU-4874. What other drugs will affect bumetanide? Bumetanide can harm your kidneys, especially if you also use certain medicines for infections, cancer, osteoporosis, organ transplant rejection, bowel disorders, high blood pressure, or pain or arthritis (including Advil, Motrin, and Aleve). Tell your doctor about all your other medicines, especially: lithium; digoxin; probenecid; indomethacin; blood pressure medication; or any other diuretic. This list is not complete. Other drugs may affect bumetanide, including prescription and sgux-sds-xbodjby medicines, vitamins, and herbal products. Not all possible drug interactions are listed here. Where can I get more information? Your pharmacist can provide more information about bumetanide. Remember, keep this and all other medicines out of the reach of children, never share your medicines with others, and use this medication only for the indication prescribed. Every effort has been made to ensure that the information provided by [facility]. ('[employer]') is accurate, up-to-date, and complete, but no guarantee is made to that effect. Drug information contained herein may be time sensitive. [employer] information has been compiled for use by healthcare practitioners and consumers in the [place] and therefore [employer] does not warrant that uses outside of the [place] are appropriate, unless specifically indicated otherwise. [employer] drug information does not endorse drugs, diagnose patients or recommend therapy. [employer]s drug information isan informational resource designed to assist licensed healthcare practitioners in caring for their p atients and/or to serve consumers viewing this service as a supplement to, and not a substitute for, the expertise, skill, knowledge and judgment of healthcare practitioners. The absence of a warningfor a given drug or drug combination in no way should be construed to indicate that the drug or drug combination is safe, effective or appropriate for any given patient. [employer] does not assume any responsibility for any aspect of healthcare administered with the aid of information [employer] provides. The information contained herein is not intended to cover all possible uses, directions, precautions, warnings, drug interactions, allergic reactions, or adverse effects. If you have questions about the drugs you are taking, check with your doctor, nurse or pharmacist. Copyright 1750-8788 [facility]. Version: 7.02. Revision Date: 11/18/2020. Education Materials HEART CATHETERIZATION/PCI (groin) Discharge Instructions DIET INSTRUCTIONS Drink plenty of fluids for the next 48 hours to help your kidneys flush the heart cath dye out of your system ACTIVITIES May go up and down stairs CAREFULLY Do not drive car FOR 24 HOURS No heavy lifting GREATER THAN 10 POUNDS or pushing or straining FOR 2 DAYS Someone must stay with you at home after the procedure until the morning. BATHING/SHOWERING May tub bathe in 1 week May shower tomorrow WOUND CARE You will go home with a dressing over your heart cath site. Remove the dressing tomorrow and apply a band-aid. Keep a Band-Aid on for the next 24 hours and then leave open to air. Some degree of bruising and tenderness is normal around the heart cath site. It will take a while for any bruising to completely resolve. Keep your site clean and dry. You need to report the following to your lacing string cutter: Any draining or oozing from the site Any swelling at the site Any increased pain or tenderness at the site Any numbness in your leg where the procedure was done Any signs of infection IMPORTANT! CALL 911 FOR ANY BLEEDING OR SWELLING AT THE PROCEDURE SITE If there is any large amount of bleeding, you or someone else need to apply direct pressure to the site (just like the nurse did in the heart lab after your procedure). It is very important that you hold constant pressure. Do not release the pressure to check if the bleeding has stopped. You then need to be transported to the nearest emergency room. WATCH FOR SIGNS OF INFECTION (Usually appears 36-48 hours after surgery) A temperature above 100.5 Redness or swelling Increased pain Foul odor or drainage If you have any questions, please call your doctor at the number listed on your follow up instructions. Follow all instructions given to you by your physician Document Released: 09/09/2006 Document Revised: 08/26/2013 Document Reviewed: 09/10/2014 ExitCare Patient Information 2015 [employer]. This information is not intended to replace advicegiven to you by your health care provider. Make sure you discuss any questions you have with your health care provider. Additional Information VACCINATE! IT SAVES LIVES! Members of the community who have not yet received the COVID-19 vaccine and would like to receive it can visit one of [facility] vaccine clinics. There are many vaccine clinic locations within the [facility]. For locations and available times, please visit [email or web address] It is important to note that some COVID mobile vaccine clinics are held outdoors and may be canceled in rainy or stormy conditions. To learn more about pediatric vaccinations (ages 5-11), we invite you to visit the [facility] webpage. [email or web address]/[email or web address] learn more about the COVID-19 vaccine, we invite you to visit the [facility] website for a list of frequently asked questions. [email or web address] [facility] OneChart Patient Portal Access Instructions: Stay connected with your healthcare team and access your personal medical information anytime with the [facility] Patient Portal.If you would like a full copy of your medical records, please contact the [facility] Medical Records Department, Saturday through Saturday between 8a.m. and 4:30p.m. Please follow the directions below to access the portal: 1.Access the email account you provided upon registration to the [facility].2.Look for an invitation email from [facility].3.Open the email and access the invitation link: Accept Invitation to [facility]4.Fill in the required العلي to create your account. Sign into www.[employer] with your username and password that you created in the above steps to stay up to date. You can then view a summary of results, a summary of your visits, and the ability to download your summaries to your computer or send the information securely to a physician. Remember that your healthcare information is confidential, so carefully consider who you will allow to register on the [facility] Patient Portal for access to your information. You can also access the [facility] Patient Portal on the [employer]. Simply click on Health Records under S[facility]GL and then click on the [facility] logo. HOW TO SAFELY DISPOSE OF PRESCRIPTION MEDICATIONS Please use one of the following methods to safely dispose of your unused medications. 1.Use a drug disposal kit: the drug disposal pouch allows you to safely discard your old and unuseddrugs. Ask your nurse to give you one when you are discharged.2.Visit a local take-back location: Many local pharmacies and police departments have programs that collect old and unwanted prescriptiondrugs. Call your local pharmacy or go to http://bideo.com.[employer]/1J0Ag6q to find one close to you.3.Make use of household items: Use cat litter or old coffee grounds to dispose medications if other options arenot available. Mix your drugs with these household products, seal them in an airtight container andthrow it into the garbage. Call [facility]: [phone] to be sure your drugs can be disposed of in this way. Some medicines may require a different approach.4.Never flush your medications down the toilet. IF YOU HAVE BEEN PRESCRIBED AN OPIOID FOR PAIN If you have been prescribed an opioid (such as hydrocodone, oxycodone or morphine), it is critical to understand the possible side effects and risks of opioid pain medications. Even when taken as directed, opioids can have several side effects including: Tolerance, meaning you might need to take more of a medication for the same pain relief. Nausea, vomiting and/or constipation. Sleepiness, dizziness, dry mouth, confusion, depression or itching. Physical dependence, meaning you have withdrawal symptoms when a medication is stopped, can develop within a few days. KNOW YOUR RESPONSIBILITIES It is important to know exactly how much and how often to take the opioid pain medications you are prescribed. Never take opioids in higher amounts or more often than prescribed. Do not combine opioids with alcohol or other drugs that cause drowsiness, such as benzodiazepines, also known as benzos, including diazepam and alprazolam, muscle relaxants or sleep aids. Never sell or share prescription opioids. This is illegal. Store opioids in a secure place and out of reach of others (including children, family, friends and visitors). The last page of this document has been signed and retained as a CHART COPY. Signatures Patient Education Materials 3- Heart Cath/PCI groin (06/2018) (CUSTOM) Medication Leaflets potassium chloride (oral/injection), bumetanide (oral/injection) My discharge plan and instructions have been reviewed and explained to me and I,DORCAS ANGULO understand my current condition and have read and understand these discharge instructions. I have received a written copy of the plan/instructions. If I have questions, I am aware that I should contact my doctor. 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 02-11-2022 History of Present illness Narrative* Nava Child RT(R) - 11/03/2021 1:00 PM EST Radiology Service Progress Note PATIENT NAME: Dorcas Angulo DATE OF SERVICE: November 03, 2021 TIME: 1:05 PM PATIENT IDENTITY VERIFICATION COMPLETED USING TWO (2) IDENTIFIERS: Name and Date of confirmedby patient verbally. FALL SCREENING: Has the patient had 2 falls in the last year or 1 fall with injury or currently using an Ambulatory Assistive Device (Walker, Cane, Wheelchair, Crutches, etc.)? No PATIENT GENDER DATA: Female. status: : No status: NO. PATIENT RELEVANT IMPLANT DATA REVIEWED: Yes RADIOLOGY DEPARTMENT: General X-ray: Exam(s) Completed: Chest X-Ray PERIPHERAL IV DATA: Not applicable SIGNED BY: RT Milo(R) November 03, 2021 1:05 PM documented in this encounter05-27-2021 Evaluation note No assessment recorded. Patient Targets Encounter Date Instructions Goals 02/16/2021 [facility] Anesthesiology Consult note* QUINCY CARIAS DO: PERFORM, SIGN, VERIFY Event Display: Anesthesiology Consultation Authored Date: [id number] Patient: DORCAS ANGULO Age: 62 years Sex: Female : 1960 Associated Diagnoses: None Author: QUINCY CARIAS DO Preoperative Information Greater than 6 hours Anesthesia history Patient's history: negative. Family's history: negative. Review of Systems Ear/Nose/Mouth/Throat: Negative except as documented in history of present illness. Respiratory: Negative except as documented in history of present illness. Cardiovascular: Negative except as documented in history of present illness. Gastrointestinal: Negative except as documented in history of present illness. Genitourinary: Negative except as documented in history of present illness. Endocrine: Negative except as documented in history of present illness. Musculoskeletal: Negative except as documented in history of present illness. Integumentary: Negative except as documented in history of present illness. Neurologic: Negative except as documented in history of present illness. Health Status Allergies: Allergic Reactions (Selected) Moderate PredniSONE- No reactions were documented. Severity Not Documented Bactrim- No reactions were documented. Cigarette smoke- No reactions were documented. Codeine- Hallucinations. Dilaudid- No reactions were documented. HYDROmorphone- Unknown. Ibuprofen- Itching. Iodinated radiocontrast dyes- No reactions were documented. Morphine- Itching. Sulfa drugs- No reactions were documented. Sulfamethoxazole-trimethoprim- Eruption., Allergies (11) ActiveReaction predniSONENone Documented BactrimNone Documented Cigarette smokeNone Documented codeineHALLUCINATIONS DilaudidNone Documented HYDROmorphoneUnknown ibuprofenItching iodinated radiocontrast dyesNone Documented morphineItching sulfa drugsNone Documented sulfamethoxazole-trimethoprimEruption Current medications: (Selected) Inpatient Medications Ordered Aquasol E: Start: 10/08/22 11:31:00 EST, Dose = 100 International_Unit, = 1 cap(s), Oral, qDay, 0 Dofetilide Pharmacy Information: Start: 10/08/22 8:57:00 EST, Daily, 7 day(s), Stop: 10/14/22 9:00:00 EST, 10/08/22 8:57:00 EST Vitamin B12: Start: 10/08/22 11:29:00 EST, Dose = 1,000 mcg, = 2 tab(s), Oral, qDay, 0 Vitamin D3 25 mcg (1000 intl units) oral tablet: Start: 10/08/22 9:32:00 EST, Dose = 25 mcg, = 1 tab(s), Oral, qDay, 10/08/22 9:32:00 EST Xarelto: Start: 10/08/22 22:00:00 EST, Dose = 20 mg, = 1 tab(s), Oral, qHS, Indication for Use Atrial fibrillation, 0, 10/08/22 8:56:00 EST aspirin 81 mg oral delayed release tablet: Start: 10/08/22 9:00:00 EST, Dose = 81 mg, = 1 tab(s), Oral, Daily, 0, 10/08/22 8:56:00 EST dofetilide: Start: 10/08/22 23:00:00 EST, Dose = 125 mcg, = 1 cap(s), Oral, q12hr, this will be dose #2 changed from 250, 0, 10/08/22 20:50:00 EST metoprolol succinate 25 mg oral TABLET extended release: Start: 10/08/22 9:29:00 EST, Dose = 12.5 mg, = 0.5 tab(s), Oral, qDay, 0, 10/08/22 8:56:00 EST tadalafil: Start: 10/08/22 9:00:00 EST, Dose = 20 mg, = 4 tab(s), Oral, qDay, 0, 10/08/22 8:56:00 EST triamcinolone 0.1% topical cream: Start: 10/08/22 15:17:00 EST, Dose = 1 aleena, Topical, BID, PRN, Rash, Apply to: affected area(s), Cream, 10/08/22 15:17:00 EST vitamin E: Start: 10/08/22 9:00:00 EST, Dose = 100 International_Unit, = 1 cap(s), Oral, qDay, 0, 10/08/22 8:56:00 EST Prescriptions Prescribed Tadalafil (Eqv-Adcirca) 20 mg oral tablet: Dose : 20 mg = 1 tab(s), Oral, qDay, # 30 tab(s), 0 Refill(s), called to pharmacy (Rx) aspirin 81 mg oral delayed release tablet: Dose : 81 mg = 1 tab(s), Oral, Daily, # 30 tab(s), 0 Refill(s), Pharmacy: [id number], 167.6, cm, 08/07/22 5:48:00 EST, Height bumetanide 1 mg oral tablet: Dose : 1 mg = 1 tab(s), Oral, Daily, PRN Swelling/weight gain, # 30 tab(s), 2 Refill(s), Pharmacy: [facility], 167.6, cm, 07/31/22 9:04:00 EST, Height, kg,11/08/22 9:04:00 EST, Dosing Weight metoprolol succinate 25 mg oral TABLET extended release: Dose : 12.5 mg = 0.5 tab(s), Oral, qDay, Do not crush or chew (controlled release), # 15 tab(s), 6 Refill(s), Pharmacy: [facility] #[id number], 167.6, cm, 08/22/22 9:35:00 EST, Height Documented Medications Documented Vitamin B12: Dose : 1,000 mcg =, Oral, qDay, 0 Refill(s) Vitamin D3 1000 intl units oral tablet: Dose : 1,000 unit(s) = 1 tab(s), Oral, qDay, 0 Refill(s) Xarelto 20 mg oral tablet: Dose : 20 mg = 1 tab(s), Oral, qHS, Begin taking 08/09/22, # 30 tab(s), 0 Refill(s), 79.6 desoximetasone 0.05% topical cream: Apply 1 aleena, Topical, BID, PRN Rash, # 15 gram(s), 0 Refill(s),Cream, 79.3 potassium chloride: Dose : 20 mEq =, Oral, AsDirected, 0 Refill(s) vitamin E: Dose : 100 Int unit =, Oral, qDay, 0 Refill(s), Medications (11) Active Scheduled: (10) aspirin 81 mg EC 81 mg 1 tab(s), Oral, Daily cholecalciferol 25 mcg tablet (Vit D3 1000 units) 25 mcg 1 tab(s), Oral, qDay cyanocobalamin 500 mcg Tablet 1,000 mcg 2 tab(s), Oral, qDay dofetilide 125 mcg capsule 125 mcg 1 cap(s), Oral, q12hr metoprolol succinate 25 mg ER tablet 12.5 mg 0.5 tab(s), Oral, qDay Misc communication order 1 EA, Miscellaneous, Daily rivaroxaban 20 mg tablet 20 mg 1 tab(s), Oral, qHS tadalafil 5 mg tablet 20 mg 4 tab(s), Oral, qDay vitamin E 100 units Capsule 100 International_Unit 1 cap(s), Oral, qDay vitamin E 100 units Capsule 100 International_Unit 1 cap(s), Oral, qDay Continuous: (0) PRN: (1) triamcinolone topical 0.1% Cream 15 Gram(s) 1 alenea, Topical, BID Problem list: Medical ATRIAL FIBRILLATION WITH RVR / SNOMED CT 8877106688 / Confirmed CHEST PAIN, ATYPICAL / SNOMED CT 086774559 / Confirmed Back pain / SNOMED CT 9205318528 / Confirmed CHEST WALL PAIN / SNOMED CT 251523146 / Confirmed Cirrhosis, non-alcoholic / SNOMED CT 924802642 / Confirmed DEHYDRATION / SNOMED CT 74841565 / Confirmed DIARRHEA / SNOMED CT 985372938 / Confirmed Eczema / SNOMED CT 15478095 / Confirmed GERD - Gastro-esophageal reflux disease / SNOMED CT 2755239050 / Confirmed HYPOTHYROIDISM / SNOMED CT 76081459 / Confirmed REFUSED INFLUENZA VACCINE / SNOMED CT 353496972 / Confirmed Migraine / SNOMED CT 13839858 / Confirmed SYNCOPE, NEAR / SNOMED CT 8589443487 / Confirmed STEATOHEPATITIS, NONALCOHOLIC / SNOMED CT 9282427022 / Confirmed FARSHAD (obstructive sleep apnea) / SNOMED CT 479040974 / Confirmed ASD secundum / SNOMED CT 098067090 / Confirmed Thyroid enlargement / SNOMED CT 598304485 / Confirmed Urinary incontinence / SNOMED CT 4064214264 / Confirmed REFUSED PNEUMOCOCCAL VACCINE / SNOMED CT 6800033625 / Confirmed, Active Problems (28) Anxiety ASD (atrial septal defect) ASD secundum ATRIAL FIBRILLATION WITH RVR Back pain CHEST PAIN, ATYPICAL CHEST WALL PAIN Cirrhosis, non-alcoholic DEHYDRATION DIARRHEA Eczema Exertional shortness of breath GERD - Gastro-esophageal reflux disease HYPOTHYROIDISM Migraine On anticoagulant therapy FARSHAD (obstructive sleep apnea) PONV (postoperative nausea and vomiting) Pulmonary HTN REFUSED INFLUENZA VACCINE REFUSED PNEUMOCOCCAL VACCINE Right heart enlargement Seasonal allergy Sleep apnea with use of continuous positive airway pressure (CPAP) STEATOHEPATITIS, NONALCOHOLIC SYNCOPE, NEAR Thyroid enlargement Urinary incontinence Histories Past Medical History: Active Back pain (0655264174) Migraine (26330051) Urinary incontinence (2063653890) GERD - Gastro-esophageal reflux disease (4005974381) Thyroid enlargement (454677894) Eczema (25152216) Comments: 07/16/2013 EDT 11:50 EDT - KWAN [facility] of [facility] Family History: Cancer Father () Brother Cardiac pacemaker Father () Sister Atrial fibrillation Sister Mother High blood pressure Mother Heart failure Father () Stroke Mother Sister Pulmonary embolism Daughter Deep vein thrombosis Daughter Procedure history: Transesophageal echocardiogram ([id number]) on 09/14/2022 at 62 Years. Comments: 09/30/2022 18:00 Elana Paris MA (ABR-OE) 1. Left ventricle: The cavity size is normal. Wall thickness is normal. Systolic function is normal. The estimated ejection fraction is 55-60%. There is no evidence of a thrombus. 2. Ventricular septum: There is no evidence of a ventricular septal defect. 3. Mitral valve: Posterior leaflet mobility is mildly restricted. There is no evidence of vegetation. There is mild to moderate regurgitation. 4. Left atrium: There is no evidence of a thrombus in the atrial cavity or appendage. No spontaneous echo contrast is observed. 5. Tricuspid valve: There is mild regurgitation. The regurgitant peak velocity is 2.2 m/sec. 6. Right atrium: The atrium is dilated. There is no evidence of a thrombus in the atrial cavity or appendage. Right atrial area 21.94 cm 7. Atrial septum: There is no atrial level shunt. There is no evidence of thrombus. Atrial septal occluder device is noted and is well positioned. No color-flow noted across the interatrial septum. Agitated saline contraststudy does not show an interatrial shunt. 8. Systemic veins: IVC is 2.2 cm, mildly dilated. 9. Pericardium, extracardiac: A small, free-flowing pericardial effusion is identified posterior tothe heart. The fluid has no internal echoes. There is no evidence of hemodynamic compromise. Recommendations: 1. IVC is 2.2 cm. Well-positioned ASD closure device. 2. No RICHARD thrombus. Cardiac catheterization ([id number]) on 08/29/2022 at 62 Years. Comments: 09/30/2022 18:00 Elana Paris MA (ABR-OE) No significant obstructive CAD. Normal LVEDP. Echocardiogram ([id number]) on 08/15/2022 at 61 Years. Comments: 09/30/2022 18:01 Elana Paris MA (ABR-OE) 1. Limited ECHO for assessment of pericardial effusion. 2. Left ventricle: Systolic function is normal. 3. Pericardium, extracardiac: A [id number], free-flowing pericardial effusion is identified posterior to the heart. The fluid has no internal echoes. There is no evidence of chamber collapse. Respirophasic change in transvalvular velocities is within normal limits. No clinical tamponade. 4. Inferior vena cava: The IVC is normal-sized. Respirophasic diameter changes are in the normal range (> 50%). 5. Right atrium: The estimated right atrial pressure is 3 mm Hg. Echocardiogram ([id number]) on 08/08/2022 at 61 Years. Comments: 09/30/2022 18:02 Elana Paris MA (ABR-OE) 1. Study data: limited for effusion check 2. Pericardium, extracardiac: A small pericardial effusion is identified posterior to the heart andalong the left ventricular free wall. There is no evidence of hemodynamic compromise. 3. Left ventricle: The cavity size is normal. Wall thickness is normal. Systolic function is normal. The estimated ejection fraction is 60-65%. Although no diagnostic regional wall motion abnormality is identified, this possibility cannot be completely excluded on the basis of this study. 4. Mitral valve: There is mild, 1+ regurgitation. 5. Left atrium: The atrium is mildly dilated. 6. Tricuspid valve: There is mild, 1+ regurgitation. 7. Right atrium: The atrium is mildly dilated. Echocardiogram ([id number]) on 08/07/2022 at 61 Years. Comments: 09/30/2022 18:03 Elana Paris MA (ABR-OE) Pericardium, extracardiac: A small to moderate posterior pericardial effusion is identified size 1.3 cm. There is no RV diastolic collapse noted. Previous TTE from March 2022 shows similar findings. Echocardiogram ([id number]) on 08/07/2022 at 61 Years. Comments: 09/30/2022 18:03 Elana Paris MA (ABR-OE) 1. Pericardium, extracardiac: A small pericardial effusion is identified. Features are not consistent with tamponade physiology. 2. Inferior vena cava: The IVC is trivially dilated Transesophageal echocardiogram ([id number]) on 08/07/2022 at 61 Years. Comments: 09/30/2022 18:04 Elana Paris MA (ABR-OE) 1. Left ventricle: Systolic function is normal. 2. Left atrium: There is no evidence of a thrombus in the atrial cavity or appendage. No spontaneous echo contrast is observed. 3. Right ventricle: The cavity size is mildly increased. 4. Right atrium: The atrium is dilated. There is no evidence of a thrombus in the atrial cavity or appendage. 5. Atrial septum: There is a 0.6 cm2 secundum ASD. Successful implantation of ASD closure device. 6. Pericardium, extracardiac: A small pericardial effusion is identified pre procedure and did not change post procedure Transesophageal echocardiogram ([id number]) on 06/15/2022 at 61 Years. Comments: 09/30/2022 18:05 Elana Paris MA (ABR-OE) 1. Left ventricle: Systolic function is normal. 2. Left atrium: There is no evidence of a thrombus in the atrial cavity or appendage. No spontaneous echo contrast is observed. 3. Right ventricle: The cavity size is increased. 4. Pulmonic valve: There is no evidence of a vegetation. 5. Tricuspid valve: There is no evidence of a vegetation. 6. Right atrium: The atrium is dilated. There is no evidence of a thrombus in the atrial cavity or appendage. 7. Atrial septum: Secundum ASD, 8 mm in diameter, 0.5 cm area noted with a predominant [id number] shunt on color Doppler as well as agitated saline study. Some right to left shunting noted with provocative maneuvers. 8. Inferior vena cava: The IVC is dilated at 2.2 cm. 9. Pericardium, extracardiac: A small pericardial effusion is identified Spirometry ([id number]) on 04/24/2022 at 61 Years. Comments: 09/30/2022 18:06 Elana Paris MA (ABR-OE) 1. Moderate degree of restrictive airway disease. 2. Bronchodilator therapy has not demonstrated any significant change indicating that the patient will not benefit from continued bronchodilator therapy. 3. No evidence of diffusion defect. Cardiac catheterization ([id number]) on 04/13/2022 at 61 Years. Suspension of bladder (7203267). Dilation and curettage (29749140). Hysteroscopy (056390505). Tubal ligation (183992622). Bunionectomy (04439206). Tonsillectomy (255569636). Colonoscopy (844718676). EGD - Esophagogastroduodenoscopy (1682621674). PFO - Closure of patent foramen ovale (1642701491). Cardioversion (784865044). Social History Social & Psychosocial Habits Alcohol 09/20/2019 Use: Never Employment/School 10/08/2019 Status: Employed Activity level: Occasional physical work Substance Abuse 10/08/2019 Use: Never Tobacco 09/20/2019 Tobacco Use: Never (less than 100 in l Home/Environment 07/31/2022 Domestic Concerns Denies, None Lives In 1st floor bathroom, 1st floor bedroom, Single level home Current Home Treatments Blood Pressure monitoring, CPAP machine Marital Status of Patient if Patient Independent Adult: 08/29/2022 Domestic Concerns Denies Nutrition/Health 07/31/2022 Type of diet: Low sodium Appetite Good Eating Difficulties None Caffeine intake amount: no caffeine intake . Physical Examination General: Alert and oriented. Airway: Normal temporomandibular joint mobility, Normal mouth, Normal throat, Normal neck range of motion, Trachea midline. Mallampati classification: II (soft palate, fauces, uvula visible). Head: Normocephalic. Dentition Evaluation: Intact, Own teeth, Denies loose/chipped teeth. Neck: Supple. Respiratory: Lungs are clear to auscultation, Respirations are non-labored. Cardiovascular: Normal rate, No murmur. Heart Sounds: Normal. Gastrointestinal: Soft. Musculoskeletal Normal range of motion. Integumentary: Intact, Warm, Dry. Neurologic: Alert, Oriented. Review / Management Results review: Lab results 10/09/2022 5:36 EST Hand Left 10/08/2022 22 gauge Peripheral IV Activity: Assessed Peripheral IV Dressing Condition: Dry, Intact Peripheral IV Dressing Activity: Transparent dressing Peripheral IV Line Status/Patency: Flushes easily, 3ml normal saline flush Peripheral IV Site Condition: No complications Peripheral IV Equipment: PRN Adaptor 10/09/2022 5:21 EST Temperature Oral 36.5 DegC Heart Rate Monitored 94 bpm Respiratory Rate 18 br/min Systolic Blood Pressure Non-Invasive 104 mmHg Diastolic Blood Pressure Non-Invasive 59 mmHg LOW Blood Pressure Method Automatic Reason For Taking VItal Signs Routine Primary Pain Intensity 0 Primary Pain Nonverbal Response Nods No Pain Scale Type 0-10 Pain scale Monitor Alarms On and Limits Checked Nail Bed Color [place] Capillary Refill < 2 seconds Heart Sounds ICU S1S2 Heart Rhythm Irregular Dorsalis Pedis Pulse, Left 1+ Thready Dorsalis Pedis Pulse, Right 1+ Thready Radial Pulse, Left 2+ Normal Radial Pulse, Right 2+ Normal Cardiac Rhythm Atrial fibrillation Respirations Unlabored Respiratory Pattern Regular Breath Sounds Auscultated Anterior and posterior All Lobes Breath Sounds Clear Cough and Deep Breathe Not done Cough None Oxygen Therapy Room air Oxygen Saturation 94 % Tracheal Position Midline Abdomen Description Non-distended Abdomen Palpation Non-Tender Passing Flatus Yes Bowel Movement Last Date 10/08/2022 Bowel Continence Continent Swallowing Disorder None Bowel Sounds All Quadrants Present Urinary Elimination Voiding, no difficulties Urine Color Yellow Urine Description Medium amount Facial Movement Symmetric resting/crying All Extremity Description Normal for ethnicity Skin Temperature Warm Temperature All Extremities Warm Skin Description Normal for ethnicity Skin Integrity Intact Skin Turgor Elastic Mucous Membrane Color [place] Mucous Membrane Description Moist Sensory Perception Ortiz No impairment Moisture Ortiz Rarely moist Activity Ortiz Walks occasionally Mobility Ortiz No limitations Nutrition Ortiz Adequate Friction and Shear Ortiz No apparent problem Ortiz Score 21 Hospital Acquired Pressure Injury Risk None/minimal risk (score 19-23) Continuous IV Infusions adapted Neurological Language Able to speak clearly Neurological Symptoms Patient denies Gait Steady Extremity Movement Equal Swallowing Difficulty None Characteristics of Communication Appropriate Characteristics of Speech Clear Facial Symmetry Symmetric Level of Consciousness Alert Aspiration Risk None ARDEN Yes Left Pupil Description Regular, Round Right Pupil Description Regular, Round Left Pupil Reaction Brisk Right Pupil Reaction Brisk Pupil Size, Left 3 mm Pupil Size, Right 3 mm Strength All Extremities Strong Left Upper Extremity Sensation Intact Right Upper Extremity Sensation Intact Left Lower Extremity Sensation Intact Right Lower Extremity Sensation Intact CN VII Facial Expression and Symmetry Facial movement symmetrical CN IX, X Swallowing, Gag Reflex Swallowing present Perales Screen Daily History of Fall in Last 3 Months Perales No Presence of Secondary Diagnosis Perales Yes Use of Ambulatory Aid Perales None, bedrest, wheelchair, nurse IV/PRN Adapter Fall Risk Perales No Gait Weak or Impaired Fall Risk Perales Normal, bedrest, immobile Mental Status Fall Risk Perales Oriented to own ability Perales Fall Risk Score 15 Violence Risk Confused No Violence Risk Irritable No Violence Risk Boisterous No Violence Risk Verbal Threats No Violence Risk Physical Threats No Violence Risk Attacking Objects No Violence Risk Predictor Score 0 Violence Risk Intervention None Violence Risk Current Interventions None Affect/Behavior Appropriate, Calm, Cooperative Orientation Oriented x 4 BMAT Existing Patient Condition/Safety No order for Strict Bedrest BMAT Level 1: Sit and Shake Sit, side bed/reach midline/shake hands BMAT Level 2: Stretch and Point Seated position, straighten 1 knee; Flex ankle & point toes BMAT Level 3: Stand Stand up w/o assist/Use of assist device BMAT Level 4: Walk March in place; step forward & back each foot BMAT Mobility Level 4 Activity Status ADL Repositions self, Resting Assistive Device None Standard Safety ID band on, Safety level maintained High Risk Safety Room check performed Demonstrates Correct Call Light Use Yes Eating Difficulties None 10/09/2022 2:52 EST Able To Drink Order Detail Yes Able To Sign Consents Order Detail Yes Code Status Order Detail Full code IV Order Detail Yes Dialysis Schedule Order Detail N/A Has Diabetes Order Detail No Isolation Precautions Order Detail None Nurse Collect Order Detail 0 Oxygen Order Detail No Order Detail No Prior Valve Replacement Order Detail No Transport Mode Order Detail MTT with Monitor Flight Engineer Details Form Flight Engineer Details Form 10/09/2022 1:27 EST Heart Rate Monitored 88 bpm Reason For Taking VItal Signs Routine Primary Pain Intensity 0 Primary Pain Nonverbal Response Appears restful Pain Scale Type Behavioral pain scale Monitor Alarms On and Limits Checked Heart Rhythm Irregular Cardiac Rhythm Atrial fibrillation Monitoring Lead III, V1/MCL1 Alarms On and Functional Yes Heart Rate Alarm Set At - Low 50 Heart Rate Alarm Set At - High 120 Oxygen Therapy BiPAP Continuous IV Infusions adapted Violence Risk Confused No Violence Risk Irritable No Violence Risk Boisterous No Violence Risk Verbal Threats No Violence Risk Physical Threats No Violence Risk Attacking Objects No Violence Risk Predictor Score 0 Violence Risk Intervention None Violence Risk Current Interventions None Activity Status ADL Repositions self, Resting, Sleeping quietly with easy respirations, Up ad preston Beds/Devices Hospital bed Activity Assistance Independent SCD Removed/Off bilateral knee high Standard Safety Safety level maintained High Risk Safety Room check performed Demonstrates Correct Call Light Use Yes 10/08/2022 23:30 EST Electrocardiogram - EKG - CV Completed (In Progress) 10/08/2022 23:30 EST Heart Rate Monitored 87 bpm Respiratory Rate 20 br/min Systolic Blood Pressure Non-Invasive 121 mmHg Diastolic Blood Pressure Non-Invasive 57 mmHg LOW Mean Arterial Pressure (NBP) 77 mmHg Reason For Taking VItal Signs Routine Primary Pain Intensity 0 Primary Pain Nonverbal Response Nods No Pain Scale Type 0-10 Pain scale Monitor Alarms On and Limits Checked Nail Bed Color [place] Heart Rhythm Irregular Dorsalis Pedis Pulse, Left 1+ Thready Dorsalis Pedis Pulse, Right 1+ Thready Radial Pulse, Left 2+ Normal Radial Pulse, Right 2+ Normal Cardiac Rhythm Atrial fibrillation Monitoring Lead III, V1/MCL1 Alarms On and Functional Yes Heart Rate Alarm Set At - Low 50 Heart Rate Alarm Set At - High 120 Respirations Unlabored Respiratory Pattern Regular Breath Sounds Auscultated Anterior only All Lobes Breath Sounds Clear Cough and Deep Breathe Not done Cough None Oxygen Saturation 94 % Tracheal Position Midline Abdomen Description Non-distended Abdomen Palpation Non-Tender Passing Flatus Yes Swallowing Disorder None Urinary Elimination Voiding, no difficulties Skin Temperature Warm Skin Description Normal for ethnicity Skin Integrity Intact Skin Turgor Elastic Mucous Membrane Color [place] Mucous Membrane Description Moist Continuous IV Infusions adapted Hand Left 10/08/2022 22 gauge Peripheral IV Activity: Assessed Peripheral IV Dressing Condition: Dry, Intact Peripheral IV Dressing Activity: Transparent dressing Peripheral IV Line Status/Patency: Flushes easily Peripheral IV Line Care: Secured with tape Peripheral IV Site Condition: No complications Peripheral IV Equipment: PRN Adaptor Neurological Symptoms Patient denies Level of Consciousness Alert Eye Opening Response Lizbeth Spontaneously ARDEN Yes Strength All Extremities Strong Consent Form Signed Yes Pt./Caregiver Remote Cont.Visual Monitor Verbalizes/Nonverbally indicates understanding NPO Status Initiated Standard Safety Safety level maintained High Risk Safety Door open, Room check performed Demonstrates Correct Call Light Use Yes 10/08/2022 23:22 EST Electrocardiogram - EKG - CV Ordered (In Progress) 10/08/2022 23:00 EST Oral Intake 0 mL Urine Voided 900 mL 10/08/2022 21:29 EST dofetilide 125 mcg mcg magnesium oxide 400 mg mg rivaroxaban 20 mg mg 10/08/2022 21:00 EST Urine Voided 500 mL 10/08/2022 20:45 EST Notify date/time 10/08/2022 20:45 Provider Notified TEZ DRIVER MD Details of Results Received called me and advised me to give patient 125 dose of tikosyin and to put order in for lower dose and d/c order for 250 Results Read Back Yes Heart Rate Monitored 84 bpm Reason For Taking VItal Signs Routine Primary Pain Intensity 0 Pain Scale Type 0-10 Pain scale Monitor Alarms On and Limits Checked Heart Rhythm Irregular Cardiac Rhythm Atrial fibrillation Monitoring Lead III, V1/MCL1 Alarms On and Functional Yes Heart Rate Alarm Set At - Low 50 Heart Rate Alarm Set At - High 120 Oxygen Therapy Room air Continuous IV Infusions adapted Forearm Right 10/08/2022 22 gauge Peripheral IV Activity: Discontinued Peripheral IV Removal: Adhesive bandage, Catheter intact, no resistance, Hemostasis within expectedtimeframe Peripheral IV Removal Reason: Site change Hand Left 10/08/2022 22 gauge Peripheral IV Activity: Insert new site Peripheral IV Dressing Condition: Dry, Intact Peripheral IV Dressing Activity: Transparent dressing Peripheral IV Line Status/Patency: Flushes easily, Good blood return Peripheral IV Line Care: Secured with tape Peripheral IV Site Condition: No complications Peripheral IV Equipment: PRN Adaptor Peripheral IV Number of Attempts: 3 Pt./Caregiver Remote Cont.Visual Monitor Verbalizes/Nonverbally indicates understanding Activity Status ADL Repositions self, Resting, Up ad preston, Watching TV Beds/Devices Hospital bed Activity Assistance Independent SCD Removed/Off bilateral knee high Reason SCD Removed/Off Ambulating in room Standard Safety Safety level maintained High Risk Safety Door open, toileting offered, Room check performed Demonstrates Correct Call Light Use Yes 10/08/2022 20:23 EST Notify date/time 10/08/2022 20:23 Provider Notified TEZ DRIVER MD Notification Method Pager Information Communicated EKG result(s), Nurse communication Details Communicated called to clarify tikosyin dose and to let know Qtc [phone]. calls were made earlier with no response. See prior notifications. Person Reporting Result(s) Reny stated that this was to complicated and I was to get ahold of the fellow for them to look into and they would have to contact him to discuss. Chris lyon/ Shan LEVI and was advised to give 250 dose and follow up with this in AM Results Read Back Yes 10/08/2022 19:44 EST Heart Rate Monitored 82 bpm Reason For Taking VItal Signs Routine Primary Pain Intensity 0 Pain Scale Type 0-10 Pain scale Monitor Alarms On and Limits Checked Nail Bed Color [place] Capillary Refill < 2 seconds Heart Sounds ICU S1S2 Heart Rhythm Irregular Dorsalis Pedis Pulse, Left 1+ Thready Dorsalis Pedis Pulse, Right 1+ Thready Radial Pulse, Left 2+ Normal Radial Pulse, Right 2+ Normal Cardiac Rhythm Atrial fibrillation Monitoring Lead III, V1/MCL1 QRS Duration 0.7 second(s) Alarms On and Functional Yes Heart Rate Alarm Set At - Low 50 Heart Rate Alarm Set At - High 120 Respirations Unlabored Respiratory Pattern Regular Breath Sounds Auscultated Anterior only All Lobes Breath Sounds Clear Cough and Deep Breathe Not done Cough None Oxygen Therapy Room air Tracheal Position Midline Abdomen Description Non-distended Abdomen Palpation Non-Tender Passing Flatus Yes Bowel Movement Last Date 10/08/2022 Swallowing Disorder None Urinary Elimination Voiding, no difficulties Facial Movement Symmetric resting/crying All Extremity Description Normal for ethnicity Skin Temperature Warm Temperature All Extremities Warm Skin Description Normal for ethnicity Skin Integrity Intact Skin Turgor Elastic Mucous Membrane Color [place] Mucous Membrane Description Moist Continuous IV Infusions adapted Forearm Right 10/08/2022 22 gauge Peripheral IV Activity: Assessed Peripheral IV Dressing Condition: Dry, Intact Peripheral IV Dressing Activity: Transparent dressing Peripheral IV Line Status/Patency: Flushes easily Peripheral IV Line Care: Secured with tape Peripheral IV Site Condition: No complications Peripheral IV Equipment: PRN Adaptor Neurological Language Able to speak clearly Neurological Symptoms Patient denies Gait Steady Extremity Movement Equal Swallowing Difficulty None Characteristics of Communication Appropriate Characteristics of Speech Clear Facial Symmetry Symmetric Level of Consciousness Alert Aspiration Risk None Eye Opening Response Lizbeth Spontaneously Best Motor Response Lizbeth Obeys simple commands Best Verbal Response [place] Oriented [place] Coma Score 15 [place] Yes Left Pupil Description Regular Right Pupil Description Regular Left Pupil Reaction Brisk Right Pupil Reaction Brisk Pupil Size, Left 3 mm Pupil Size, Right 3 mm Strength All Extremities Strong Left Upper Extremity Sensation Intact Right Upper Extremity Sensation Intact Left Lower Extremity Sensation Intact Right Lower Extremity Sensation Intact CN V Facial Sensation Corneal reflex present CN VII Facial Expression and Symmetry Facial movement symmetrical CN VIII Hearing Spoken word equally audible left/right CN IX, X Swallowing, Gag Reflex Swallowing present Violence Risk Confused No Violence Risk Irritable No Violence Risk Boisterous No Violence Risk Verbal Threats No Violence Risk Physical Threats No Violence Risk Attacking Objects No Violence Risk Predictor Score 0 Violence Risk Intervention None Violence Risk Current Interventions None Affect/Behavior Appropriate Orientation Oriented x 4 Orientation Assessment Oriented x 4 Pt./Caregiver Remote Cont.Visual Monitor Verbalizes/Nonverbally indicates understanding Activity Status ADL Awake, Repositions self, Resting, Watching TV Beds/Devices Hospital bed Activity Assistance Independent Standard Safety ID band on, Allergy Band on, Call device within reach, Bed in low position, Wheels locked, Upper/Half-Length side-rails up, Phone within reach High Risk Safety Non-Slip footwear, Room check performed Demonstrates Correct Call Light Use Yes 10/08/2022 19:19 EST Temperature Oral 36.5 DegC Heart Rate Monitored 92 bpm Respiratory Rate 20 br/min Systolic Blood Pressure Non-Invasive 116 mmHg Diastolic Blood Pressure Non-Invasive 68 mmHg Blood Pressure Method Manual Blood Pressure Location Left arm Blood Pressure Cuff Size Medium Reason For Taking VItal Signs Routine Oxygen Therapy Room air Oxygen Saturation 91 % LOW Oxygen Flow Rate 0.0 Ambulation Repositions self Pt./Caregiver Remote Cont.Visual Monitor Verbalizes/Nonverbally indicates understanding Activity Status ADL Awake Beds/Devices Hospital bed Activity Assistance Independent Assistive Device None Ambulation Patient Effort Good Standard Safety ID band on, Allergy Band on, Call device within reach, Bed in low position, Wheels locked, Upper/Half-Length side-rails up, Phone within reach, personal items within reach, Assistive devices within reach, Toileting device within reach, Bedside Cart Locked, Safety level maintained High Risk Safety Bathroom light on, Non-Slip footwear, Room check performed Demonstrates Correct Call Light Use Yes 10/08/2022 18:09 EST Notify date/time 10/08/2022 18:09 Provider Notified MACI HARDY MD Notification Method Answering service Notification Outcome No return call (Modified) 10/08/2022 17:15 EST Heart Rate Monitored 101 bpm HI Heart Rhythm Irregular Cardiac Rhythm Atrial fibrillation Alarms On and Functional Yes Activity Status ADL Dangle Standard Safety Safety level maintained High Risk Safety Room check performed 10/08/2022 17:01 EST Post Rehab Outcome Not Done: See ICU flow (Not Done) Able To Drink Order Detail Not Done: See ICU flow (Not Done) Able To Sign Consents Order Detail Not Done: See ICU flow (Not Done) Code Status Order Detail Not Done: See ICU flow (Not Done) IV Order Detail Not Done: See ICU flow (Not Done) Dialysis Schedule Order Detail Not Done: See ICU flow (Not Done) Has Diabetes Order Detail Not Done: See ICU flow (Not Done) Isolation Precautions Order Detail Not Done: See ICU flow (Not Done) Nurse Collect Order Detail Not Done: See ICU flow (Not Done) Oxygen Order Detail Not Done: See ICU flow (Not Done) Order Detail Not Done: See ICU flow (Not Done) Prior Valve Replacement Order Detail Not Done: See ICU flow (Not Done) Transport Mode Order Detail Not Done: See ICU flow (Not Done) Cardiac Rehab - Phase I Not Done (Not Done) Flight Engineer Details Form Not Done (Not Done) 10/08/2022 16:58 EST magnesium oxide 400 mg mg tadalafil 20 mg mg 10/08/2022 16:00 EST Notify date/time 10/08/2022 16:00 Provider Notified MAYO HERNANDEZ MD Notification Method Pager Information Communicated Nurse communication Details Communicated 316 M.M. Received first Tikosyn dose (250 mg) this AM and QTcB was 498. QTcB on admission was 458. Pt is currently in A fib. [place] [id number] Notification Outcome No return call Temperature Oral 36.6 DegC Heart Rate Monitored 90 bpm Respiratory Rate 18 br/min Systolic Blood Pressure Non-Invasive 124 mmHg Diastolic Blood Pressure Non-Invasive 72 mmHg Reason For Taking VItal Signs Routine Oxygen Therapy Room air Oxygen Saturation 92 % LOW Pt./Caregiver Remote Cont.Visual Monitor Verbalizes/Nonverbally indicates understanding Activity Status ADL Awake, Returned to bed, Watching TV Beds/Devices Hospital bed Standard Safety ID band on, Allergy Band on, Call device within reach, Bed in low position, Wheels locked, Upper/Half-Length side-rails up, Phone within reach, personal items within reach, Assistive devices within reach, Safety level maintained, Hazards removed from floor, Non-Slip footwear High Risk Safety Door open, Non-Slip footwear, Room check performed Demonstrates Correct Call Light Use Yes 10/08/2022 15:56 EST Heart Rate Monitored 91 bpm Primary Pain Intensity 0 Pain Scale Type 0-10 Pain scale Monitor Alarms On and Limits Checked Nail Bed Color [place] Capillary Refill < 2 seconds Heart Sounds ICU S1S2 Heart Rhythm Irregular (Modified) Dorsalis Pedis Pulse, Left 1+ Thready Dorsalis Pedis Pulse, Right 1+ Thready Posttibial Pulse, Left 1+ Thready Posttibial Pulse, Right 1+ Thready Radial Pulse, Left 2+ Normal Radial Pulse, Right 2+ Normal Cardiac Rhythm Atrial fibrillation Monitoring Lead III, V1/MCL1 Alarms On and Functional Yes Heart Rate Alarm Set At - Low 50 Heart Rate Alarm Set At - High 120 Respirations Unlabored Respiratory Pattern Regular Breath Sounds Auscultated Anterior and posterior All Lobes Breath Sounds Clear Cough None Oxygen Therapy Room air Abdomen Description Non-distended, Soft Abdomen Palpation Non-Tender Passing Flatus Yes Bowel Movement Last Date 10/08/2022 Bowel Sounds All Quadrants Present Urinary Elimination Voiding, no difficulties Facial Movement Symmetric resting/crying All Extremity Description Normal for ethnicity Skin Temperature Warm Temperature All Extremities Warm Skin Description Normal for ethnicity, Dry Skin Integrity Intact Skin Turgor Elastic Mucous Membrane Color [place] Mucous Membrane Description Moist Sensory Perception Ortiz No impairment Moisture Ortiz Rarely moist Activity Ortiz Walks occasionally Mobility Ortiz No limitations Nutrition Ortiz Adequate Friction and Shear Ortiz No apparent problem Ortiz Score 21 Hospital Acquired Pressure Injury Risk None/minimal risk (score 19-23) Forearm Right 10/08/2022 22 gauge Peripheral IV Activity: Assessed Peripheral IV Dressing Condition: Clean, Dry, Intact Peripheral IV Dressing Activity: Transparent dressing Peripheral IV Line Status/Patency: Flushes easily Peripheral IV Line Care: Secured with tape Peripheral IV Site Condition: No complications Peripheral IV Equipment: PRN Adaptor Neurological Language Able to speak clearly Neurological Symptoms Patient denies Gait Steady Extremity Movement Equal Swallowing Difficulty None Characteristics of Communication Appropriate Characteristics of Speech Clear Facial Symmetry Symmetric Level of Consciousness Alert [place] Yes Left Pupil Description Regular, Round Right Pupil Description Regular, Round Left Pupil Reaction Brisk Right Pupil Reaction Brisk Pupil Size, Left 3 mm Pupil Size, Right 3 mm Strength All Extremities Strong Left Upper Extremity Sensation Intact Right Upper Extremity Sensation Intact Left Lower Extremity Sensation Intact Right Lower Extremity Sensation Intact CN VII Facial Expression and Symmetry Facial movement symmetrical CN IX, X Swallowing, Gag Reflex Swallowing present Violence Risk Confused No Violence Risk Irritable No Violence Risk Boisterous No Violence Risk Verbal Threats No Violence Risk Physical Threats No Violence Risk Attacking Objects No Violence Risk Predictor Score 0 Violence Risk Intervention None Violence Risk Current Interventions None Affect/Behavior Appropriate, Calm, Cooperative Orientation Oriented x 4 Activity Status ADL Ambulating in room Beds/Devices Hospital bed Activity Assistance Independent Standard Safety ID band on, Allergy Band on, Call device within reach, Bed in low position, Wheels locked, Upper/Half-Length side-rails up, Phone within reach, personal items within reach, Safety level maintained, Non-Slip footwear High Risk Safety Room check performed Demonstrates Correct Call Light Use Yes 10/08/2022 13:24 EST cyanocobalamin 1000 mcg mcg potassium chloride 40 mEq mEq vitamin E 100 International_Unit International_Unit 10/08/2022 13:08 EST Electrocardiogram - EKG - CV Completed (In Progress) 10/08/2022 11:46 EST Forearm Right 10/08/2022 22 gauge Peripheral IV Activity: Assessed Peripheral IV Dressing Condition: Clean, Dry, Intact Peripheral IV Dressing Activity: Transparent dressing Peripheral IV Site Condition: No complications Peripheral IV Equipment: PRN Adaptor 10/08/2022 11:29 EST Heart Rate Monitored 83 bpm Reason For Taking VItal Signs Routine Primary Pain Intensity 0 Pain Scale Type 0-10 Pain scale Monitor Alarms On and Limits Checked Nail Bed Color [place] Capillary Refill < 2 seconds Heart Sounds ICU S1S2 Heart Rhythm Irregular Dorsalis Pedis Pulse, Left 2+ Normal Dorsalis Pedis Pulse, Right 2+ Normal Radial Pulse, Left 2+ Normal Radial Pulse, Right 2+ Normal Cardiac Rhythm Atrial fibrillation Monitoring Lead III, V1/MCL1 QRS Duration 0.10 second(s) ST Exclusion Criteria Yes Alarms On and Functional Yes Heart Rate Alarm Set At - Low 50 Heart Rate Alarm Set At - High 120 Respirations Unlabored Respiratory Pattern Regular Breath Sounds Auscultated Anterior and posterior All Lobes Breath Sounds Clear Cough None Oxygen Therapy Room air Urinary Elimination Voiding, no difficulties All Extremity Description [place], Normal for ethnicity Skin Temperature Warm Temperature All Extremities Warm Skin Description [place], Normal for ethnicity Skin Integrity Intact Skin Turgor Elastic Mucous Membrane Color [place] Mucous Membrane Description Moist Neurological Language Able to speak clearly Neurological Symptoms Patient denies Characteristics of Communication Appropriate Characteristics of Speech Clear Level of Consciousness Alert AR[place] Yes Strength All Extremities Strong Left Upper Extremity Sensation Intact Right Upper Extremity Sensation Intact Left Lower Extremity Sensation Intact Right Lower Extremity Sensation Intact Affect/Behavior Appropriate, Calm, Cooperative Orientation Oriented x 4 Standard Safety Safety level maintained 10/08/2022 10:55 EST dofetilide 250 mcg mcg magnesium oxide 400 mg mg potassium chloride 40 mEq mEq 10/08/2022 10:52 EST Temperature Oral 36.6 DegC Heart Rate Monitored 87 bpm Respiratory Rate 18 br/min Systolic Blood Pressure Non-Invasive 122 mmHg Diastolic Blood Pressure Non-Invasive 76 mmHg Oxygen Therapy Room air Oxygen Saturation 92 % LOW Activity Status ADL Resting, Watching TV Standard Safety ID band on, Allergy Band on, Call device within reach, Bed in low position, Wheels locked, Upper/Half-Length side-rails up, Phone within reach, personal items within reach, Safety level maintained High Risk Safety Room check performed Demonstrates Correct Call Light Use Yes 10/08/2022 10:18 EST Notify date/time 10/08/2022 10:18 Provider Notified MAYO HERNANDEZ MD Notification Method Phone Information Communicated Nurse communication Details Communicated mg 1.8. K 3.4 Details of Results Received will put something in to replace the electrolytes 10/08/2022 10:06 EST Apical Heart Rate 86 bpm aspirin 81 mg mg cholecalciferol 25 mcg mcg metoprolol 12.5 mg mg 10/08/2022 10:01 EST Heart Rate Monitored 86 bpm Systolic Blood Pressure Non-Invasive 127 mmHg Diastolic Blood Pressure Non-Invasive 81 mmHg Mean Arterial Pressure (NBP) 93 mmHg Blood Pressure Method Automatic Monitor Alarms On and Limits Checked 10/08/2022 9:57 EST Activity Status ADL Awake, Resting Standard Safety ID band on, Allergy Band on, Call device within reach, Bed in low position, Wheels locked, Upper/Half-Length side-rails up, Phone within reach, personal items within reach, Safety level maintained High Risk Safety Room check performed Demonstrates Correct Call Light Use Yes 10/08/2022 9:35 EST BMAT Existing Patient Condition/Safety No order for Strict Bedrest BMAT Level 1: Sit and Shake Sit, side bed/reach midline/shake hands BMAT Level 2: Stretch and Point Seated position, straighten 1 knee; Flex ankle & point toes BMAT Level 3: Stand Stand up w/o assist/Use of assist device BMAT Level 4: Walk March in place; step forward & back each foot BMAT Mobility Level 4 10/08/2022 9:34 EST Skin Assessment Verification Admission Violence Risk Confused No Violence Risk Irritable No Violence Risk Boisterous No Violence Risk Verbal Threats No Violence Risk Physical Threats No Violence Risk Attacking Objects No Violence Risk Predictor Score 0 Violence Risk Intervention None Violence Risk Current Interventions None Influenza Vaccine Need No prior receipt of vaccine Influenza Risk Factors age 6 months and older Influenza Vaccine Contraindications None Forego Influenza Vaccination Patient/Caregiver refused vaccine Influenza Vaccine Assessment Influenza Vaccine Assessment 10/08/2022 9:33 EST Able To Drink Order Detail Yes Able To Sign Consents Order Detail Yes Code Status Order Detail Full code IV Order Detail Yes Dialysis Schedule Order Detail N/A Has Diabetes Order Detail No Isolation Precautions Order Detail None Nurse Collect Order Detail 0 Oxygen Order Detail No Order Detail No Prior Valve Replacement Order Detail No Transport Mode Order Detail MTT with Monitor Flight Engineer Details Form Flight Engineer Details Form 10/08/2022 9:28 EST Heart Rate Monitored 97 bpm Forearm Right 10/08/2022 22 gauge Peripheral IV Activity: Insert new site Peripheral IV Dressing Condition: Clean, Dry, Intact Peripheral IV Dressing Activity: Applied, Transparent dressing Peripheral IV Line Status/Patency: Flushes easily, Good blood return Peripheral IV Line Care: Date/time/initials present Peripheral IV Site Condition: No complications Peripheral IV Equipment: PRN Adaptor Peripheral IV Number of Attempts: 1 10/08/2022 9:19 EST Glucose Level 117 mg/dL HI Sodium Level 143 mEq/L Potassium Level 3.4 mEq/L LOW Chloride 106 mEq/L CO2 29 mEq/L Electrolyte Balance 8.0 mEq/L BUN 17.0 mg/dL Creatinine Lvl (s) 0.68 mg/dL BUN/Creatinine Ratio 25.0 ratio HI Calcium Lvl 9.0 mg/dL Magnesium Lvl 1.8 mg/dL GFR Non- >60 ml/min/1.73sqm NA GFR >60 ml/min/1.73sqm NA Creatinine Clearance Calc 81.28 mL/min 10/08/2022 9:04 EST Notify date/time 10/08/2022 10:37 Provider Notified MAYO HERNANDEZ MD Notification Method Face to face conversation Information Communicated Nurse communication Details Communicated pt is admitted under Dr. Hardy for [facility] Details of Results Received will call him and put in orders Post Rehab Outcome Not Done: Not Appropriate at this Time (Not Done) Perales Screen Daily History of Fall in Last 3 Months Perales No Presence of Secondary Diagnosis P[place]es Yes Use of Ambulatory Aid [place] None, bedrest, wheelchair, nurse IV/PRN Adapter Fall Risk [place] No Gait Weak or Impaired Fall Risk [place] Normal, bedrest, immobile Mental Status Fall Risk [place] Oriented to own ability P[place]es Fall Risk Score 15 Cardiac Rehab - Phase I Not Done (Not Done) 10/08/2022 9:00 EST Electrocardiogram - EKG - CV Completed (In Progress) 10/08/2022 9:00 EST cyanocobalamin Not Given: Other (Not Done) vitamin E Not Given: Task Duplication (Not Done) 10/08/2022 8:55 EST IPOC Impaired Gas Exchange Yes 10/08/2022 8:55 EST Reg VTE Reason Not Received vC Anticoagulation therapy not warfarin for atrial fibrillation 10/08/2022 8:54 EST History and Physical History and Physical (Modified) 10/08/2022 8:33 EST Designated Person #1 We May Share PHI Designated Person #1 We May Share PHI Designated Person #1 Relationship Daughter Designated Person #2 We May Share PHI devorah [phone] POA Designated Person #2 Relationship Daughter Additional Designated Person Share PHI Harley son [phone] Privacy Restrictions Requested None Height 167.6 cm Height in inches 66 inch(es) Admission Weight 80.8 kg Weight Lbs 177.8 lb [place] Body Weight 59.26 kg Type of Scale Used Standing BSA Admission 1.9 Body Mass Index 28.76 kg/m2 Patient Type Inpatient Thrombosis Risk Factors (3) Family history of blood clots (DVT/PE/Thrombosis), (2) Age 61-75 years old Thrombosis Risk Factor Add'l Assessment NA Thrombosis Risk Score 5 Status No, per patient Do You Wish/Go to Sleep/Never Wake Up No Thoughts of Harming Others - History No Thoughts of Suicide - History No Hospital Clergy to Visit Patient Verbalizes No Spiritual Needs Sensory Deficits None Advanced Directives Yes Advance Directive Location Patient instructed to bring in copy Infectious Disease Symptoms Patient states no symptoms Infectious Disease Recent Exposure No Alcohol and Drug Use No Employee of Institutional Living No Health Care Employee No History of Exposure to TB No History of Positive Chest X-Ray for TB No History of Positive TB Skin Test No Homeless No Known Immunosuppression No Recent Immigrant No Resident of Institutional Living No Bloody Sputum No Fatigue No Fever No Loss of Appetite No Night Sweats No Persistent Cough > 3 Weeks No Weight Loss No Safety Brochure Information Reviewed Yes [place] Asif Video Viewed Yes Barriers to Learning None evident Teaching Method Explanation Teaching Evaluation Verbalizes/Nonverbally indicates understanding Preferred Written Language North Korean Preferred Spoken Language [place] Information Given by Patient Patient's Current Physicians Patient's Current Physicians Belongings At Bedside Books, Cell phone, CPAP, Jacket, Pants, Shirt, Shoes, Socks, Watch, Other: home meds in bag put away Personal Home Medications Received No home medications were brought in Belongings Sent Home None Belongings Sent To Security None Discharge To, Anticipated Home independently Prev Test Positive/Diagnosis w/COVID-19 Yes Previous COVID-19 Positive Date 11/03/2021 Current Quarantine/Isolated any Illness No Any Contact with Sick Animals/Birds No Traveled Anywhere in Last 30 Days No Lost Weight Unintentionally Recently No Eat Poorly Due to Decreased Appetite No Total MST Score 0 No Personal Devices, Patient Valuables None Admission Note-Nursing Patient History 10/08/2022 8:22 EST Temperature Oral 36.9 DegC Heart Rate Monitored 98 bpm Respiratory Rate 18 br/min Systolic Blood Pressure Non-Invasive 108 mmHg Diastolic Blood Pressure Non-Invasive 62 mmHg Reason For Taking VItal Signs Admission Primary Pain Intensity 0 Pain Scale Type 0-10 Pain scale Monitor Alarms On and Limits Checked Nail Bed Color [place] Capillary Refill < 2 seconds Heart Sounds ICU S1S2 Heart Rhythm Irregular Murmur Auscultated No Dorsalis Pedis Pulse, Left 2+ Normal Dorsalis Pedis Pulse, Right 2+ Normal Radial Pulse, Left 2+ Normal Radial Pulse, Right 2+ Normal Cardiac Rhythm Atrial fibrillation Monitoring Lead III, V1/MCL1 QRS Duration 0.09 second(s) ST Exclusion Criteria Yes Alarms On and Functional Yes Heart Rate Alarm Set At - Low 50 Heart Rate Alarm Set At - High 120 Respirations Unlabored Respiratory Pattern Regular Breath Sounds Auscultated Anterior and posterior All Lobes Breath Sounds Clear Cough None Oxygen Therapy Room air Oxygen Saturation 98 % Abdomen Description Non-distended Abdomen Palpation Non-Tender Bowel Sounds All Quadrants Present Urinary Elimination Voiding, no difficulties Facial Movement Makes facial grimaces All Extremity Description [place], Normal for ethnicity Skin Temperature Warm Temperature All Extremities Warm Skin Description [place], Normal for ethnicity Skin Integrity Intact Skin Turgor Elastic Mucous Membrane Color [place] Mucous Membrane Description Moist Neurological Language Able to speak clearly Neurological Symptoms Patient denies Gait Steady Extremity Movement Equal Swallowing Difficulty None Characteristics of Communication Appropriate Characteristics of Speech Clear Facial Symmetry Symmetric Level of Consciousness Alert Aspiration Risk None Eye Opening Response Lizbeth Spontaneously Best Motor Response Lizbeth Obeys simple commands Best Verbal Response [place] Oriented Lizbeth Coma Score 15 [place] Yes Left Pupil Description Regular Right Pupil Description Regular Left Pupil Reaction Brisk Right Pupil Reaction Brisk Pupil Size, Left 3 mm Pupil Size, Right 3 mm Strength All Extremities Strong Left Upper Extremity Sensation Intact Right Upper Extremity Sensation Intact Left Lower Extremity Sensation Intact Right Lower Extremity Sensation Intact CN VII Facial Expression and Symmetry Facial movement symmetrical CN IX, X Swallowing, Gag Reflex Swallowing present Affect/Behavior Appropriate, Calm, Cooperative Orientation Oriented x 4 Activity Status ADL Awake Assistive Device None Standard Safety ID band on, Allergy Band on, Call device within reach, Bed in low position, Safety level maintained High Risk Safety Room check performed . Assessment and Plan [place] [employer] (ASA) physical status classification: Class IV. Anesthetic Preoperative Plan Premedication: intravenous. Anesthetic technique: General. Induction: intravenously. Maintenance airway: Mask. Special techniques: Warming device. Special Monitoring. Postoperative pain management: Per surgeon. Risks discussed: nausea, vomiting, headache, sore throat, dental injury, hypotension, allergic reaction, serious complications. Informed consent: signed by patient. Beta Wyatt: Beta Wyatt Taken Within 24 Hrs: Yes. Digitally Signed by QUINCY CARIAS DO on 10/09/2022 06:09 AM [facility] [employer] [facility] [employer] + Plan note Future Appointments Appointment Date:04/12/2022 07:30:00 AM Scheduled Provider: Location:Heart Lab Appointment Type:CV Procedure - Heart Lab/Hybrid OR Appointment Date:04/18/2022 11:00:00 AM Scheduled Provider: Location:[facility] Appointment Type:CV Procedure - Echo (Adult) Diagnostic Tests Pending * Antinuclear Antibody Screen, Serum 04/10/22 [facility] [employer] + Plan note Future Appointments Appointment Date:04/18/2022 11:00:00 AM Scheduled Provider: Location:[facility] Appointment Type:CV Procedure - Echo (Adult) [facility] [employer] + Plan note Future Appointments Appointment Date:07/06/2022 03:15:00 PM Scheduled Provider: Location:[facility] Appointment Type:CV DRUPAL PROGRAMMER Structural Heart [facility] [employer] + Plan note Future Appointments Appointment Date:08/07/2022 07:30:00 AM Scheduled Provider: Location:Heart Lab Appointment Type:CV Procedure - Heart Lab/Hybrid OR [facility] [employer] + Plan note Future Appointments Appointment Date:08/22/2022 09:30:00 AM Scheduled Provider: Location:[facility] Appointment Type:CV [facility] Appointment Date:09/03/2022 02:00:00 PM Scheduled Provider: Location:[facility] Appointment Type:CV Office Procedure Holter Monitor Appointment Date:09/26/2022 12:00:00 PM Scheduled Provider: Location:[facility] Appointment Type:CV Procedure - Echo (Adult) Appointment Date:09/28/2022 01:30:00 PM Scheduled Provider: Location:[facility] Appointment Type:CV OV Structural Heart Future Scheduled Tests Laboratory* Basic Metabolic Panel 08/14/22 * Complete Blood Count 08/14/22 [facility] evaluation + Plan note Future Appointments Appointment Date:08/29/2022 10:00:00 AM Scheduled Provider: Location:[facility] Appointment Type:CV Procedure - Heart Lab/Hybrid OR Appointment Date:09/26/2022 12:00:00 PM Scheduled Provider: Location:[facility] Appointment Type:CV Procedure - Echo (Adult) Appointment Date:09/28/2022 01:30:00 PM Scheduled Provider: Location:[facility] Appointment Type:CV OV Structural Heart Appointment Date:10/02/2022 11:30:00 AM Scheduled Provider: Location:[facility] SHERYL DILLON Appointment Type:CV OV CHF Future Scheduled Tests Laboratory* Basic Metabolic Panel 08/14/22 * Complete Blood Count 08/14/22 [facility] evaluation + Plan note Future Appointments Appointment Date:09/26/2022 12:00:00 PM Scheduled Provider: Location:[facility] Appointment Type:CV Procedure - Echo (Adult) Appointment Date:09/28/2022 01:30:00 PM Scheduled Provider: Location:[facility] Appointment Type:CV OV Structural Heart Appointment Date:10/02/2022 11:30:00 AM Scheduled Provider: Location:[facility] JEN DILLON Appointment Type:CV OV CHF Future Scheduled Tests Laboratory* Basic Metabolic Panel 08/14/22 * Complete Blood Count 08/14/22 [facility] evaluation + Plan note Future Appointments Appointment Date:09/26/2022 12:00:00 PM Scheduled Provider: Location:[facility] Appointment Type:CV Procedure - Echo (Adult) Appointment Date:09/28/2022 01:30:00 PM Scheduled Provider: Location:[facility] Appointment Type:CV OV Structural Heart Appointment Date:10/02/2022 11:30:00 AM Scheduled Provider: Location:[facility] Appointment Type:CV OV CHF Appointment Date:10/24/2022 02:00:00 PM Scheduled Provider: Location:[facility] Appointment Type:CV DRUPAL PROGRAMMER [facility] evaluation + Plan note Future Appointments Appointment Date:10/24/2022 02:00:00 PM Scheduled Provider: Location:[facility] Appointment Type:CV DRUPAL PROGRAMMER [facility] Evaluation + Plan note Future Appointments Appointment Date:01/21/2023 10:45:00 AM Scheduled Provider: Location:[facility] SHERYL WILMA Appointment Type:CV OV Appointment Date:11/22/2023 04:30:00 PM Scheduled Provider: Location:[facility] Appointment Type:CV OV [facility] Evaluation + Plan note Future Appointments Appointment Date:02/15/2023 10:45:00 AM Scheduled Provider: Location:[facility] SHERYL DILLON Appointment Type:CV OV Appointment Date:11/22/2023 04:30:00 PM Scheduled Provider: Location:LAKESHAC JUAN Appointment Type:CV OV [facility] Evaluation + Plan note Future Appointments Appointment Date:05/08/2023 08:00:00 AM Scheduled Provider:AMARIS RUIZ Location:[facility] Appointment Type:Telephone Appointment Date:05/20/2023 10:00:00 AM Scheduled Provider:AMARIS RUIZ Location:[facility]INE[facility] Appointment Type:CTS OV Post Op Appointment Date:09/20/2023 03:30:00 PM Scheduled Provider: Location:LAKESHAC JUAN Appointment Type:CV OV Appointment Date:11/22/2023 04:30:00 PM Scheduled Provider: Location:[facility] Appointment Type:CV OV Future Scheduled Tests Radiology* XR Chest 2 Views (PA & Lateral) 05/20/23 [facility] Evaluation + Plan note Future Appointments Appointment Date:06/14/2023 11:00:00 AM Scheduled Provider: Location:[facility] SHERYL DILLON Appointment Type:CV OV Appointment Date:09/20/2023 03:30:00 PM Scheduled Provider: Location:[facility] Appointment Type:CV OV Appointment Date:11/22/2023 04:30:00 PM Scheduled Provider: Location:[facility] Appointment Type:CV OV [facility] Evaluation + Plan note Future Appointments Appointment Date:06/14/2023 11:00:00 AM Scheduled Provider: Location:[facility] AOH DILLON Appointment Type:CV OV Appointment Date:07/03/2023 03:45:00 PM Scheduled Provider: Location:[facility] Appointment Type:CV OV Appointment Date:09/20/2023 03:30:00 PM Scheduled Provider: Location:[facility] Appointment Type:CV OV Appointment Date:11/22/2023 04:30:00 PM Scheduled Provider: Location:[facility] Appointment Type:CV OV Diagnostic Tests Pending * Blood Gas Panel (poc) 06/07/23 * Sodium (poc) 06/07/23 * Potassium (poc) 06/07/23 * Chloride (poc) 06/07/23 * Ca Ionized (poc) 06/07/23 * Hemoglobin (poc) 06/07/23 * Hematocrit (poc) 06/07/23 * Glucose (poc) 06/07/23 * Blood Gas Panel (poc) 06/07/23 * Sodium (poc) 06/07/23 * Potassium (poc) 06/07/23 * Chloride (poc) 06/07/23 * Ca Ionized (poc) 06/07/23 * Hemoglobin (poc) 06/07/23 * Hematocrit (poc) 06/07/23 * Glucose (poc) 06/07/23 * Blood Gas Panel (poc) 06/07/23 * Potassium (poc) 06/07/23 * Chloride (poc) 06/07/23 * Ca Ionized (poc) 06/07/23 * Hemoglobin (poc) 06/07/23 * Hematocrit (poc) 06/07/23 * Glucose (poc) 06/07/23 * Blood Gas Panel (poc) 06/07/23 * Sodium (poc) 06/07/23 * Potassium (poc) 06/07/23 * Chloride (poc) 06/07/23 * Ca Ionized (poc) 06/07/23 * Hemoglobin (poc) 06/07/23 * Hematocrit (poc) 06/07/23 * Glucose (poc) 06/07/23 * Sodium (poc) 06/07/23 * Potassium (poc) 06/07/23 * Chloride (poc) 06/07/23 * Ca Ionized (poc) 06/07/23 * Hemoglobin (poc) 06/07/23 * Hematocrit (poc) 06/07/23 * Glucose (poc) 06/07/23 * Blood Gas Panel (poc) 06/07/23 * Sodium (poc) 06/07/23 [facility] Evaluation + Plan note Future Appointments Appointment Date:06/14/2023 11:00:00 AM Scheduled Provider: Location:[facility] AO DILLON Appointment Type:CV OV Appointment Date:07/03/2023 03:45:00 PM Scheduled Provider: Location:[facility] Appointment Type:CV OV Appointment Date:09/20/2023 03:30:00 PM Scheduled Provider: Location:[facility] Appointment Type:CV OV Appointment Date:11/22/2023 04:30:00 PM Scheduled Provider: Location:[facility] Appointment Type:CV OV [facility] Evaluation + Plan note Future Appointments Appointment Date:05/27/2024 04:15:00 PM Scheduled Provider: Location:[facility] Appointment Type:CV OV Appointment Date:09/25/2024 11:30:00 AM Scheduled Provider: Location:[facility] Appointment Type:CV OV Future Scheduled Tests Laboratory* Basic Metabolic Panel 03/18/24 [facility] Evaluation note* Encounter Date Assessment Date Assessment 11/13/2021 11/13/2021 imaging/labs/ consults reviewed and discussed in entirety with patient - all questions answered. med list reconicled with note and pt - finished abt, has 2 days prednisone to finish Patient Targets Encounter Date Instructions Goals 11/13/2021 [facility] Evaluation note No assessment recorded. [facility] Evaluation note* Encounter Date Assessment Date Assessment 03/14/2023 03/14/2023 pt applying for [employer] disability--her rep will send info re: letter pt may need from me to back up her claim--mainly focused on FARSHAD and afib. [facility] Evaluation note* Diagnosis Fever, unspecified fever cause- Primary Suspected COVID-19 virus infection documented [facility] encounter [facility] [place] [facility]* Diagnosis COVID-19- Primary documented in this encounter [facility] note* Encounter Date Assessment Date Assessment LastModified by Organization Details LastModified Time 10/17/2023 10/17/2023 inpatient imaging/labs/ consults reviewed and discussed in entirety with patient - all questions answered. med list reconciled with dc summary qrepp Not available 10/16/2023 13:24:02 [facility] Evaluation note* Diagnosis Pain of toe of left foot Pain in limb Toe injury, left, initial encounter documented in this encounter [facility] note* Diagnosis Cough COVID-19 documented in this encounter [facility] general Narrative - Reported* Condition Response Migraine N Restless Leg Syndrome N Parkinson's N Obstructive Sleep Apnea N Kidney Stones N Prostate disease N Atrial Fibrillation Y Anxiety Disorder N Hyperlipidemia N Asthma N Hyperthyroidism N Stroke N Diabetes N Diverticulitis/Diverticulosis N Valvular Heart Disease N Cancer N Pulmonary Embolism N CAD N Dementia N Carotid Stenosis N Colonic polyp Y Heart Disease N Psoriasis N Neuropathy N Depression N Hypothyroidism N GERD/Reflux N Fibromyalgia N Anemia N Hypertension N DVT N COPD N Kidney Disease N Osteoporosis N Arthritis N Liver Disease N Peripheral Arterial Disease/ Peripheral Vascular Disease N Gout N CHF N Seizure Disorder N Spinal disease Y IBS N Gynecological HistoryNo gynecological history recorded. Obstetrics History GPAL:G 0 P 0 0 0 0 [facility], [facility] general Narrative - Reported* Condition Response Migraine N Restless Leg Syndrome N Parkinson's N GERD/Reflux N Obstructive Sleep Apnea Y Kidney Stones N Fibromyalgia N Prostate disease N Atrial Fibrillation Y Anxiety Disorder N Hyperlipidemia N Hyperthyroidism N Asthma N Stroke N Diabetes N Anemia N Hypertension N DVT N Diverticulitis/Diverticulosis N Kidney Disease N COPD N Valvular Heart Disease N Pulmonary Embolism N Cancer N CAD N Dementia N Carotid Stenosis N Colonic polyp Y Osteoporosis N Heart Disease N Arthritis N Liver Disease N Peripheral Arterial Disease/ Peripheral Vascular Disease N Psoriasis N Gout N Neuropathy N Seizure Disorder N CHF N Spinal disease Y Depression N IBS N Hypothyroidism N Gynecological HistoryNo gynecological history recorded. Obstetrics History GPAL:G 0 P 0 0 0 0 [facility] History general Narrative - Reported* Condition Response Migraine N Restless Leg Syndrome N Parkinson's N GERD/Reflux N Obstructive Sleep Apnea Y Kidney Stones N Prostate disease N Fibromyalgia N Atrial Fibrillation Y Anxiety Disorder N Hyperlipidemia N Asthma N Hyperthyroidism N Stroke N Diabetes N Anemia N Hypertension N DVT N Diverticulitis/Diverticulosis N Kidney Disease N COPD N Valvular Heart Disease N Pulmonary Embolism N Cancer N CAD N Dementia N Carotid Stenosis N Colonic polyp Y Osteoporosis N Heart Disease N Arthritis N Liver Disease N Peripheral Arterial Disease/ Peripheral Vascular Disease N Gout N Psoriasis N Seizure Disorder N CHF N Neuropathy N Spinal disease Y Depression N IBS N Hypothyroidism N Gynecological HistoryNo gynecological history recorded. Obstetrics History GPAL:G 0 P 0 0 0 0 [facility] [place] general Narrative - Reported* Condition Response Gout N Seizure Disorder N Atrial Fibrillation Y Migraine N Kidney Stones N Hyperthyroidism N Depression N COPD N Spinal disease Y Hypothyroidism N DVT N Anemia N CAD N Carotid Stenosis N Diverticulitis/Diverticulosis N Parkinson's N Obstructive Sleep Apnea Y Prostate disease N Anxiety Disorder N Diabetes N CHF N Restless Leg Syndrome N Arthritis N Valvular Heart Disease N Hyperlipidemia N Peripheral Arterial Disease/ Peripheral Vascular Disease N Cancer N IBS N Stroke N Dementia N Asthma N Colonic polyp Y Psoriasis N GERD/Reflux N Liver Disease N Heart Disease N Neuropathy N Pulmonary Embolism N Fibromyalgia N Hypertension N Osteoporosis N Kidney Disease N Gynecological HistoryNo gynecological history recorded. Obstetrics History GPAL:G 0 P 0 0 0 0 [facility] general Narrative - Reported* Condition Response Gout N Atrial Fibrillation Y Kidney Stones N Hyperthyroidism N Depression N COPD N Parkinson's N Obstructive Sleep Apnea Y Prostate disease N Anxiety Disorder N Restless Leg Syndrome N Arthritis N Cancer N IBS N Stroke N Fibromyalgia N Kidney Disease N Migraine N DVT N CAD N CHF N Peripheral Arterial Disease/ Peripheral Vascular Disease N Asthma N GERD/Reflux N Neuropathy N Pulmonary Embolism N Seizure Disorder N Spinal disease Y Hypothyroidism N Diverticulitis/Diverticulosis N Carotid Stenosis N Colonic polyp Y Liver Disease N Anemia N Diabetes N Valvular Heart Disease N Hyperlipidemia N Dementia N Psoriasis N Heart Disease N Hypertension N Osteoporosis N Gynecological HistoryNo gynecological history recorded. Obstetrics History GPAL:G 0 P 0 0 0 0 [facility] general Narrative - Reported* Condition Response Seizure Disorder N Gout N Atrial Fibrillation Y Migraine N Kidney Stones N Hyperthyroidism N Spinal disease Y Depression N COPD N Hypothyroidism N DVT N Anemia N CAD N Carotid Stenosis N Diverticulitis/Diverticulosis N Parkinson's N Obstructive Sleep Apnea Y Prostate disease N Diabetes N Anxiety Disorder N CHF N Arthritis N Restless Leg Syndrome N Hyperlipidemia N Peripheral Arterial Disease/ Peripheral Vascular Disease N Valvular Heart Disease N Cancer N IBS N Dementia N Stroke N Asthma N Colonic polyp Y Psoriasis N GERD/Reflux N Liver Disease N Neuropathy N Heart Disease N Pulmonary Embolism N Fibromyalgia N Hypertension N Osteoporosis N Kidney Disease N Gynecological HistoryNo gynecological history recorded. Obstetrics History GPAL:G 0 P 0 0 0 0 [facility] general Narrative - Reported* Condition Response Seizure Disorder N Gout N Migraine N Atrial Fibrillation Y Kidney Stones N Hyperthyroidism N Spinal disease Y COPD N Depression N Hypothyroidism N DVT N Anemia N CAD N Carotid Stenosis N Diverticulitis/Diverticulosis N Parkinson's N Obstructive Sleep Apnea Y Prostate disease N Diabetes N Anxiety Disorder N CHF N Restless Leg Syndrome N Arthritis N Valvular Heart Disease N Peripheral Arterial Disease/ Peripheral Vascular Disease N Hyperlipidemia N Cancer N IBS N Stroke N Dementia N Asthma N Colonic polyp Y Psoriasis N GERD/Reflux N Liver Disease N Neuropathy N Heart Disease N Pulmonary Embolism N Fibromyalgia N Hypertension N Osteoporosis N Kidney Disease N Gynecological HistoryNo gynecological history recorded. Obstetrics History GPAL:G 0 P 0 0 0 0 [facility] history general Narrative - Reported* Condition Response Seizure Disorder N Gout N Migraine N Atrial Fibrillation Y Kidney Stones N Hyperthyroidism N Spinal disease Y Hypothyroidism N Depression N COPD N DVT N Anemia N CAD N Diverticulitis/Diverticulosis N Carotid Stenosis N Parkinson's N Obstructive Sleep Apnea Y Prostate disease N Diabetes N Anxiety Disorder N CHF N Restless Leg Syndrome N Arthritis N Valvular Heart Disease N Peripheral Arterial Disease/ Peripheral Vascular Disease N Hyperlipidemia N Cancer N IBS N Stroke N Dementia N Asthma N Colonic polyp Y Psoriasis N GERD/Reflux N Liver Disease N Neuropathy N Heart Disease N Pulmonary Embolism N Fibromyalgia N Hypertension N Osteoporosis N Kidney Disease N Gynecological HistoryNo gynecological history recorded. Obstetrics History GPAL:G 0 P 0 0 0 0 [facility] Hospital course Narrative No data available for this section [facility] Discharge instructions No data available for this section [facility] Note* GIOVANNA FELICIANO MD: SIGN, VERIFY Event Display: Echocardiogram Follow up, Adult - CV Authored Date: [facility] Note* VELIA CACERES MD: SIGN, VERIFY Event Display: VL Venous US/Doppler One Leg (for DVT). [facility] Note* HANK MCMULLEN MD: SIGN, VERIFY Event Display: Cardiac Catheterization -CV Authored Date: [facility] Progress note No data available for this section [facility] Reason for referral (narrative)* Diagnostic Procedure Only (Urgent) - Closed Specialty Diagnoses / Procedures Referred By Contac t Referred To Contact XR IMAGING Diagnoses Pain of toe of left foot Toe injury, left, initial encounter Procedures XR TOE AP/LAT/OBL LEFT RADEX TOE MINIMUM 2 VIEWS Erika Garcia APRN.[employer] [address] [place] [address] [place] [id number] Referral ID Status Reason Start Date Expiration Date V isits Requested Visits Authorized [id number] Closed Auto-Generate d Referral 02/19/2023 03/20/2024 1 1 [facility] for visit Narrative* Diagnostic Procedure Only (Urgent) - Closed Specialty Diagnoses / Procedures Referred By Contac t Referred To Contact XR IMAGING Diagnoses Pain of toe of left foot Toe injury, left, initial encounter Procedures XR TOE AP/LAT/OBL LEFT RADEX TOE MINIMUM 2 VIEWS Erika Garcia APRN.[employer] [address] [place] [address] [place] [id number] Referral ID Status Reason Start Date Expiration Date V isits Requested Visits Authorized [id number] Closed Auto-Generate d Referral 02/19/2023 03/20/2024 1 1 Reason for Referral Referring Physician: Lina Zendejas Internal Medicine, Encounter Date: 01/19/2013 bilat arm pain/numbness, abn l MRI cspine. records to follow. Referring Physician: Lina Zendejas Internal [facility], Encounter Date: 11/18/2013 Endocrinology Referral for H yperthyroidism please contact patient for appointment, records to follow, thank you! Referring Physician: Bibiana Arvizu Internal Medicine, Encounter Date: 12/16/2014 First colonoscopy Referring Physician: Bibiana Arvizu Internal Medicine, Encounter Date: 10/07/2015 First colonoscopy, fatty bran er, enlarged spleen Referring Physician: Bibiana Arvizu Internal Medicine, Encounter Date: 10/24/2015 Solutions Operator Referral for Ci rrhosis of liver cirrhosis/splenomegaly on US and CT, but normal labs except +OSMAN. Referring Physician: Lina Zendejas Internal Medicine, Encounter Date: 01/05/2016 Choir Teacher Referral for At rial fibrillation new onset A-fib was seen by Dr Walker at [facility] Referring Physician: Lina Zendejas Internal Medicine, Encounter Date: 06/10/2018 Referring Physician: Lina Zendejas Internal Medicine, Encounter Date: 01/19/2013 bilat arm pain/numbness, abn l MRI cspine. records to follow. Referring Physician: Lina Zendejas Internal Medicine, Encounter Date: 11/18/2013 Endocrinology Referral for H yperthyroidism please contact patient for appointment, records to follow, thank you! Referring Physician: Bibiana Arvizu Internal Medicine, Encounter Date: 12/16/2014 First colonoscopy Referring Physician: Bibiana Arvizu Internal Medicine, Encounter Date: 10/07/2015 First colonoscopy, fatty bran er, enlarged spleen Referring Physician: Bibiana Arvizu Internal Medicine, Encounter Date: 10/24/2015 Solutions Operator Referral for Ci rrhosis of liver cirrhosis/splenomegaly on US and CT, but normal labs except +OSMAN. Referring Physician: Lina Zendejas Internal Medicine, Encounter Date: 01/05/2016 Choir Teacher Referral for At rial fibrillation new onset A-fib was seen by Dr Walker at [facility] Referring Physician: Lina Zendejas Internal Medicine, Encounter Date: 06/10/2018 Garden Machinery Mechanic Referral for Screening for malignant neoplasm of colon Referring Physician: Lina Zendejas Internal Medicine, Encounter Date: 04/06/2021 Vestibular Therapy Referral for Dizziness Referring Physician: Clement Velez Internal Medicine, Encounter Date: 11/13/2021 Referring Physician: Lina Zendejas Internal [facility], Encounter Date: 01/19/2013 bilat arm pain/numbness, abn l MRI cspine. records to follow. Referring Physician: Lina Zendejas Internal [facility], Encounter Date: 11/18/2013 Endocrinology Referral for H yperthyroidism please contact patient for appointment, records to follow, thank you! Referring Physician: Bibiana Arvizu Internal Medicine, Encounter Date: 12/16/2014 First colonoscopy Referring Physician: Bibiana Arvizu Internal Medicine, Encounter Date: 10/07/2015 First colonoscopy, fatty bran er, enlarged spleen Referring Physician: Bibiana Arvizu Internal Medicine, Encounter Date: 10/24/2015 Solutions Operator Referral for Ci rrhosis of liver cirrhosis/splenomegaly on US and CT, but normal labs except +OSMAN. Referring Physician: Lina Zendejas Internal Medicine, Encounter Date: 01/05/2016 Choir Teacher Referral for At rial fibrillation new onset A-fib was seen by Dr Walker at [facility] Referring Physician: Lina Zendejas Internal Medicine, Encounter Date: 06/10/2018 Garden Machinery Mechanic Referral for Screening for malignant neoplasm of colon Referring Physician: Lina Zendejas Internal Medicine, Encounter Date: 04/06/2021 Vestibular Therapy Referral for Dizziness Referring Physician: Clement Velez Internal Medicine, Encounter Date: 11/13/2021 Choir Teacher Referral for At rial fibrillation chronic, recurrent a fib. would like new lacing string cutter Referring Physician: Lina Zendejas Internal Medicine, Encounter Date: 02/15/2022 Referring Physician: Lina Zendejas Internal [facility], Encounter Date: 01/19/2013 bilat arm pain/numbness, abn l MRI cspine. records to follow. Referring Physician: Lina Zendejas Internal [facility], Encounter Date: 11/18/2013 Endocrinology Referral for H yperthyroidism please contact patient for appointment, records to follow, thank you! Referring Physician: Bibiana Arvizu Internal Medicine, Encounter Date: 12/16/2014 First colonoscopy Referring Physician: Bibiana Arvizu Internal Medicine, Encounter Date: 10/07/2015 First colonoscopy, fatty bran er, enlarged spleen Referring Physician: Bibiana Arvizu Internal Medicine, Encounter Date: 10/24/2015 Solutions Operator Referral for Ci rrhosis of liver cirrhosis/splenomegaly on US and CT, but normal labs except +OSMAN. Referring Physician: Lina Zendejas Internal Medicine, Encounter Date: 01/05/2016 Choir Teacher Referral for At rial fibrillation new onset A-fib was seen by Dr Walker at [facility] Referring Physician: Lina Zendejas Internal Medicine, Encounter Date: 06/10/2018 Vestibular Therapy Referral for Dizziness Referring Physician: Clement Velez Internal Medicine, Encounter Date: 11/13/2021 Choir Teacher Referral for At rial fibrillation chronic, recurrent a fib. would like new lacing string cutter Referring Physician: Lina Zendejas Internal Medicine, Encounter Date: 02/15/2022 Third Officer Referral for P ulmonary hypertension Referring Physician: Lina Zendejas [facility], Encounter Date: 03/13/2022 Referring Physician: Lina Zendejas Internal Medicine, Encounter Date: 01/19/2013 bilat arm pain/numbness, abn l MRI cspine. records to follow. Referring Physician: Lina Zendejas [facility], Encounter Date: 11/18/2013 Endocrinology Referral for H yperthyroidism please contact patient for appointment, records to follow, thank you! Referring Physician: Bibiana Arvizu Internal Medicine, Encounter Date: 12/16/2014 First colonoscopy Referring Physician: Bibiana Arvizu Internal Medicine, Encounter Date: 10/07/2015 First colonoscopy, fatty bran er, enlarged spleen Referring Physician: Bibiana Arvizu Internal Medicine, Encounter Date: 10/24/2015 Solutions Operator Referral for Ci rrhosis of liver cirrhosis/splenomegaly on US and CT, but normal labs except +OSMAN. Referring Physician: Lina Zendejas Internal Medicine, Encounter Date: 01/05/2016 Choir Teacher Referral for At rial fibrillation new onset A-fib was seen by Dr Walker at [facility] Referring Physician: Lina Zendejas Internal Medicine, Encounter Date: 06/10/2018 Vestibular Therapy Referral for Dizziness Referring Physician: Clement Velez Internal Medicine, Encounter Date: 11/13/2021 Choir Teacher Referral for At rial fibrillation chronic, recurrent a fib. would like new lacing string cutter Referring Physician: Lina Zendejas [facility], Encounter Date: 02/15/2022 Third Officer Referral for P ulmonary hypertension Referring Physician: Lina Zendejas Internal Medicine, Encounter Date: 03/13/2022 Physical Therapist Referral for Neck pain Referring Physician: Clement Velez Internal [facility], Encounter Date: 11/14/2023 Family History Relationship Description Onset Age of this Age Resolved Age Notes Mother Hypothyroidism Mother Cerebrovascular accident previously recorded as Stroke Paternal Grandmother Malignant tumor of breast previously recorded as Breast CA Brother Problem BIPOLAR DISORDER (previously recorded as Other) Brother Malignant neoplastic disease LEUKEMIA (previously recorded as Cancer) Father Chronic obstructive lung disease previously recorded as COPD Father Obesity Sister Cerebrovascular accident Relationship Description Onset Age of this Age Resolved Age Notes Mother Hypothyroidism Mother Cerebrovascular accident previously recorded as Stroke Paternal Grandmother Malignant tumor of breast previously recorded as Breast CA Brother Problem BIPOLAR DISORDER (previously recorded as Other) Brother Malignant neoplastic disease LEUKEMIA (previously recorded as Cancer) Father Chronic obstructive lung disease previously recorded as COPD Father Obesity Sister Cerebrovascular accident Relationship Description Onset Age of this Age Resolved Age Notes Mother Hypothyroidism Mother Cerebrovascular accident previously recorded as Stroke Paternal Grandmother Malignant tumor of breast previously recorded as Breast CA Brother Problem BIPOLAR DISORDER (previously recorded as Other) Brother Malignant neoplastic disease LEUKEMIA (previously recorded as Cancer) Father Chronic obstructive pulmonary disease previously recorded as COPD Father Obesity Sister Cerebrovascular accident Relationship Description Onset Age of this Age Resolved Age Notes Mother Hypothyroidism Mother Cerebrovascular accident previously recorded as Stroke Paternal Grandmother Malignant tumor of breast previously recorded as Breast CA Brother Problem BIPOLAR DISORDER (previously recorded as Other) Brother Malignant neoplastic disease LEUKEMIA (previously recorded as Cancer) Father Chronic obstructive pulmonary disease previously recorded as COPD Father Obesity Sister Cerebrovascular accident Summary Purpose Advance Directives No Advanced Directives Records FoundNo Advanced Directives Records FoundNo Advanced Directives Records FoundNo Advanced Directives Records FoundNo Advanced Directives Records Found Health Concerns Infection Onset Date Last Indicated Resolved Time COVID-19 Rule-Out 08/26/2023 08/26/2023 Infection Onset Date Last Indicated Resolved Time COVID-19 Rule-Out 08/26/2023 08/26/2023 08/27/2023 6:25 AM EST COVID-19 Confirmed 08/26/2023 08/26/2023 Additional Source Comments Source Comments (unrecognize d section and content) In the event this informatio n is protected by the Federal Confidentiality of Alcohol and Drug Abuse Patient Records regulations: The Federal rules restrict any use of the information to criminally investigate or prosecute any alcohol or drug abuse patient.In the event this information is protected by the Federal Confidentiality of Alcohol and Drug Abuse Patient Records regulations: The Federal rules restrict any use of the information to criminally investigate or prosecute any alcohol or drug abuse patient.In the event this information is protected by the Federal Confidentiality of Alcohol and Drug Abuse Patient Records regulations: The Federal rules restrict any use of the information to criminally investigate or prosecute any alcohol or drug abuse patient.In the event this information is protected by the Federal Confidentiality of Alcohol and Drug Abuse Patient Records regulations: The Federal rules restrict any use of the information to criminally investigate or prosecute any alcohol or drug abuse patient.In the event this information is protected by the Federal Confidentiality of Alcohol and Drug Abuse Patient Records regulations: The Federal rules restrict any use of the information to criminally investigate or prosecute any alcohol or drug abuse patient.In the event this information is protected by the Federal Confidentiality of Alcohol and Drug Abuse Patient Records regulations: The Federal rules restrict any use of the information to criminally investigate or prosecute any alcohol or drug abuse patient.In the event this information is protected by the Federal Confidentiality of Alcohol and Drug Abuse Patient Records regulations: The Federal rules restrict any use of the information to criminally investigate or prosecute any alcohol or drug abuse patient. Care Teams (unrecognized sec tion and content) Palletizer Operator Relationship Specialty Start Date End Date Lina Zendejas MD PCP - General Internal Medicine 01/09/16 Palletizer Operator Relationship Specialty Start Date End Date Lina Zendejas MD PCP - General Internal Medicine 01/09/16 Palletizer Operator Relationship Specialty Start Date End Date Lina Zendejas MD PCP - General Internal Medicine 01/09/16 Palletizer Operator Relationship Specialty Start Date End Date Lina Zendejas MD PCP - General Internal Medicine 01/09/16 Palletizer Operator Relationship Specialty Start Date End Date Lina Zendejas MD PCP - General Internal Medicine 01/09/16 Palletizer Operator Relationship Specialty Start Date End Date Lina Zendejas MD PCP - General Internal Medicine 01/09/16 Palletizer Operator Relationship Specialty Start Date End Date Lina Zendejas MD PCP - General Internal Medicine 01/09/16 INFORMATION SOURCE (unrecogn ized section and content) DATE CREATED AUTHOR 03/09/2022 [facility] DATE CREATED AUTHOR AUTHOR'S ORGANIZ ATION 08/17/2022 [facility] DATE CREATED AUTHOR AUTHOR'S ORGANIZ ATION 08/28/2023 [facility] DATE CREATED AUTHOR AUTHOR'S ORGANIZ ATION 05/29/2024 [facility] ([place] DATE CREATED AUTHOR AUTHOR'S ORGANIZ ATION 06/05/2024 [facility] Care Team (unrecognized sect ion and content) Care Team Personnel Name: Nohelia Zabala Position: P3 Scheduling - Sales Warehouse Driver Advanced Member Role: Other Name: LINA ZENDEJAS MD Position: Physician Med Service: Active Provider Member Role: Primary Care Physician Address: Address: [facility] [address] [place] [address] Care Team Related Persons Name: DEVORAH ANGULO Name: DEVORAH ANGULO Name: DEVORAH ANGULO Name: KERON ANGULO Address: Home [address] [place] [phone] Care Team Personnel Name: Nohelia Zabala Position: P3 Scheduling - Sales Warehouse Driver Advanced Member Role: Other Name: LINA ZENDEJAS MD Position: Physician Med Service: Active Provider Member Role: Primary Care Physician Address: Address: [facility] [address] [place] [address] Care Team Related Persons Name: DEVORAH ANGULO Name: DEVORAH ANGULO Name: DEVORAH ANGULO Name: KERON ANGULO Address: Home [address] [place], [place] [id number] Care Team Personnel Name: Nohelia Zabala Position: P3 Scheduling - Sales Warehouse Driver Advanced Member Role: Other Name: LINA ZENDEJAS MD Position: Physician Med Service: Active Provider Member Role: Primary Care Physician Address: Address: [facility] [address] [place] [address] Care Team Related Persons Name: DEVORAH ANGULO Name: DEVORAH ANGULO Name: DEVORAH ANGULO Name: KERON ANGULO Address: Home [address] [place], [place] [phone] [place] Care Team Personnel Name: Nohelia Zabala Position: P3 Scheduling - Sales Warehouse Driver Advanced Member Role: Other Name: LINA ZENDEJAS MD Position: Physician Member Role: Primary Care Physician Address: Address: [facility] [address] [place] [address] Care Team Related Persons Name: DEVORAH ANGULO Name: DEVORAH ANGULO Name: DEVORAH ANGULO Name: KERON ANGULO Address: Home [address] [place], [place] [phone] Care Team Personnel Name: Nohelia Zabala Position: P3 Scheduling - Sales Warehouse Driver Advanced Member Role: Other Name: George Lu Position: Quality Review Member Role: Frame Repairer Name: LINA ZENDEJAS MD Position: Physician Member Role: Primary Care Physician Address: Address: [facility] [address] [place], [place] [id number] Care Team Related Persons Name: DEVORAH ANGULO Name: DEVORAH ANGULO Name: DEVORAH ANGULO Name: KERON ANGULO Address: Home [address] [place], [place] [phone] [place] Care Team Personnel Name: Nohelia Zabala Position: P3 Scheduling - Sales Warehouse Driver Advanced Member Role: Other Name: George Lu Position: Quality Review Member Role: Frame Repairer Name: LINA ZENDEJAS MD Position: Physician Member Role: Primary Care Physician Address: Address: [facility] [address] [place], [place] [id number] Care Team Related Persons Name: DEVORAH ANGULO Name: DEVORAH ANGULO Name: DEVORAH ANGULO Name: KEVKERON HERRERA Address: Home [address] [place], [place] [phone] Care Team Personnel Name: Caporali, Nohelia A Position: P3 Scheduling - Sales Warehouse Driver Advanced Member Role: Other Name: George uL Position: Quality Review Member Role: Frame Repairer Name: LINA ZENDEJAS MD Position: Physician Member Role: Primary Care Physician Address: Address: [facility] [address] [place] [address] Care Team Related Persons Name: DEVORAH ANGULO Name: DEVORAH ANGULO Name: DEVORAH ANGULO Name: KEV KERON Address: Home [address] [place] [phone] Care Team Personnel Name: Caporali, Nohelia A Position: P3 Scheduling - Sales Warehouse Driver Advanced Member Role: Other Name: George Lu Position: Quality Review Member Role: Frame Repairer Name: LINA ZENDEJAS MD Position: Physician Member Role: Primary Care Physician Address: Address: [address] Care Team Related Persons Name: DEVORAH ANGULO Name: DEVORAH ANGULO Name: DEVORAH ANGULO Name: KERON ANGULO Address: Home [address] [place] [phone] Care Team Personnel Name: Caporali, Nohelia A Position: Hyperion Administrator Member Role: Other Name: George Lu Position: Quality Review Member Role: Frame Repairer Name: LINA ZENDEJAS MD Position: Physician Member Role: Primary Care Physician Address: Address: [facility] [address] [place] [address] Care Team Related Persons Name: DEVORAH ANGULO Name: DEVORAH ANGULO Name: DEVORAH ANGULO Name: KERON ANGULO Address: Home [address] [place] [phone] Care Team Personnel Name: Caporali, Nohelia A Position: Hyperion Administrator Member Role: Other Name: George Lu Position: Quality Review Member Role: Frame Repairer Name: LINA ZENDEJAS MD Position: Physician Member Role: Primary Care Physician Address: Address: [facility] [address] [place] [address]- Name: RICHARD GILLC Position: ED Physician Natural Foods Clerk Member Role: ED PA Address: Address: [address] [facility] [place] [address]- Name: Melissa Lala Position: P3 Registration- Fish Straightener Name: MD DEANNE DUNCAN MD Position: ED Physician Member Role: Attending Physician Address: Address: [facility] [address] [facility] [place] [address]- Care Team Related Persons Name: LAINEY PATE Name: DEVORAH ANGULO Name: DEVORAH ANGULO Name: DEVORAH ANGULO Name: HARLEY ANGULO Reason for Visit (unrecogniz ed section and content) Reason Comments copy of xray report fax to [place] Reason Comments Nasal Congestion drainage, nausea, chato dyaches, fever x 2 days Reason Comments Results Specialty Diagnoses / Procedures Referred By Carolina macedo Referred To Contact Radiology / [facility] Diagnoses Cough [R05.9] COVID-19 [U07.1] Procedures XR CHEST Del Valle, Valarie, REGULATOR INSPECTOR.RUBBER STAMP ASSEMBLER [address] [place] [address] [facility] [address] [place] [address] Referral ID Status Reason Start Date Expiration Date Visits Re quested Visits Authorized [id number] Closed 11/03/2021 09/22/2022 1 1 FOR RECORDS PERTAINING TO PATIENTS WHO ARE OR HAVE BEEN ENROLLED IN A CHEMICAL DEPENDENCY/SUBSTANCEABUSE PROGRAM, SOME INFORMATION MAY BE OMITTED. This clinical summary was aggregated from multiple sources. Caution should be exercised in using it in the provision of clinical care. This summary normalizes information from multiple sources, and as a consequence, information in this document may materially change the coding, format and clinical context of patient data. In addition, data may be omitted in some cases. CLINICAL DECISIONS SHOULD BE BASED ON THE PRIMARY CLINICAL RECORDS. [facility]. provides no warranty or guarantee of the accuracy or completeness of information in this document.
[2024-07-16 02:18] LABS: Lactic Acid 0.8 mmol/L (0.4-1.9)
[2024-07-16] MEDS: Ondansetron 4 MG/2 ML Vial IV (02:37)
[2024-07-16 02:54] LABS: Color, Urine Yellow (Yellow); Glucose, Dipstick Normal (Normal); Ketone-Dipstick 15 mg/dl (Negative); Leukocyte Esterase-Dipstick 500 /ul (Negative); Nitrite-Dipstick Negative (Negative); Occult Blood-Urine 25 /ul (Negative); Protein-Dipstick 30 mg/dl (Negative); Urine Clarity Clear (Clear); Urine Urobilinogen Normal (Normal)
[2024-07-16 02:56] LABS: Urine Bilirubin Dipstick 1 mg/dL (Negative)
[2024-07-16 03:06] LABS: Bacteria 4+ /hpf (None Seen); Mucous, Urine 1+ /hpf (<or=2+); Red Blood Cells-Urine 5-10 SEEN /hpf (0-5); Squamous Epithelial Cells - UA 10-25 SEEN /hpf (5-10); White Blood Cells 25-50 SEEN /hpf (0-5)
[2024-07-16] MEDS: dilTIAZem 30 MG Tablet PO (03:36)
[2024-07-16] MEDS: metroNIDAZOLE 500 MG Tablet PO (04:23)
[2024-07-16] MEDS: Cefdinir 300 MG Capsule PO (04:23)
== END 2024-07-16 04:25 | disposition home or self-care (01) ==
PROVIDERS: Emergency Provider Emergency Medicine; PCP Internal Medicine; Visit Provider Emergency Medicine
DX: K52.9 Noninfective gastroenteritis and colitis, unspecified (principal); I48.92 Unspecified atrial flutter; I10 Essential (primary) hypertension; F32.A Depression, unspecified; F41.9 Anxiety disorder, unspecified; G47.30 Sleep apnea, unspecified; R50.9 Fever, unspecified; Z79.01 Long term (current) use of anticoagulants; Z79.899 Other long term (current) drug therapy; Z79.82 Long term (current) use of aspirin
CPT/HCPCS: 71045; 74176; 80053; 81001; 83605; 83690; 84484; 85025; 87040; 87086; 87631; 93005; 96374; 96375; 96376; 99285; A4216; J2405

== ENCOUNTER 2024-07-28 22:59 | Emergency (ER) | payer OTHER, SELFPAY ==
[2024-07-28 23:00] VITALS: BP 178/79; PULSE 133; RESP 25; TEMP 36.8; O2SAT 98
[2024-07-28 23:01] VITALS: BMI 29.7
[2024-07-28] MEDS: 0.9% Normal Saline (1000mL) 1,000 ML 999 ML IV (23:21)
[2024-07-28 23:23] LABS: Absolute Lymphocyte Count 1.93 X10^3/uL (0.83-4.51); Absolute Neutrophil Count 5.3 X10^3/uL (2.0-7.7); Basophil# 0.07 X10^3/uL; Basophil% 0.8 % (0-1); Eosinophil# 0.21 X10^3/uL; Eosinophils% 2.5 % (0-5); Hematocrit 43.6 % (37-47); Hemoglobin 14.8 g/dL (12.0-15.0); Lymphocyte # 1.93 X10^3/ul (0.83-4.51); Lymphocyte % 23.4 % (19-41); Mean Corp Hgb Conc 33.9 g/dL (32-36); Mean Corpuscular Hgb 29.7 pg (27.0-32.0); Mean Corpuscular Volume 87.4 fL (81-99); Mean Platelet Vol. 9.9 fl (6.2-12.0); Monocyte# 0.69 X10^3/uL; Monocyte% 8.4 % (0-10); NRBC Flagged by Analyzer 0 % (0-5); Neutrophil # 5.29 X10^3/uL (2.7-7.7); Neutrophil % 64.3 % (47-70); Platelet Count 240 K/mm3 (150-450); RBC Distribution Width CV 13.6 % (11.6-14.6); RBC Distribution Width SD 42.8 fl (35.1-43.9); Red Blood Count 4.99 M/mm3 (4.2-5.4); White Blood Count 8.2 K/mm3 (4.4-11.0)
[2024-07-28] MEDS: Metoprolol Tartrate 5 MG/5 ML Vial IV ×3 (23:25→23:53)
[2024-07-28 23:46] LABS: Anion Gap 5 (5-15); BUN 15 mg/dL (7-18); BUN/Creat Ratio 17.4 RATIO (10-20); Calcium,Total 9.2 mg/dL (8.5-10.1); Chloride 110 mmol/L (98-107); Creatinine, Serum 0.86 mg/dL (0.55-1.02); EST Glomerular Filtration Rate 71 mL/min (>60); Est Glom Filt Rate - Afr Amer 85 mL/min (>60); Estimated Creatinine Clearance 71.27 ml/min; Glucose 122 mg/dL (74-106); Magnesium 2.2 mg/dL (1.6-2.6); Potassium 3.8 mmol/L (3.5-5.1); Sodium Level 143 mmol/L (136-145)
[2024-07-29] VITALS: BP 111/71; PULSE 72; RESP 18; O2SAT 95
[2024-07-29 01:00] VITALS: BP 106/56; PULSE 71; RESP 16; O2SAT 95
[2024-07-29] MEDS: dilTIAZem 25 MG/5 ML Vial 10 MG IV BOLUS (01:02)
[2024-07-29 01:35] VITALS: BP 95/63; PULSE 68; RESP 16; TEMP 37; O2SAT 96
== END 2024-07-29 01:44 | disposition home or self-care (01) ==
PROVIDERS: Emergency Provider Emergency Medicine; PCP Internal Medicine; Visit Provider Emergency Medicine
DX: I48.92 Unspecified atrial flutter (principal); I48.0 Paroxysmal atrial fibrillation; I10 Essential (primary) hypertension; G47.30 Sleep apnea, unspecified; Z79.899 Other long term (current) drug therapy; Z79.82 Long term (current) use of aspirin; Z79.01 Long term (current) use of anticoagulants
CPT/HCPCS: 71045; 80048; 83735; 84443; 85025; 93005; 96361; 96374; 96375; 96376; 99283; J7030; A4216

== ENCOUNTER 2024-12-09 08:44 | Emergency (ER) | payer OTHER, SELFPAY ==
[2024-12-09 08:51] VITALS: BP 136/84; PULSE 116; RESP 18; TEMP 37.2; O2SAT 98
--- NOTE | 2024-12-09 08:56 | EKG12_ITS ---
Test Reason : CP Blood Pressure : */* mmHG Vent. Rate : 113 BPM Atrial Rate : 300 BPM P-R Int : * ms QRS Dur : 76 ms QT Int : 340 ms P-R-T Axes : 116 78 -27 degrees QTcB Int : 466 ms Atrial flutter with variable A-V block Nonspecific ST abnormality Abnormal ECG When compared with ECG of 28-Jul-2024 23:12, T wave inversion more evident in Inferior leads Confirmed by RODY CURRAN, KHADAR ([id number]), food expeditor ROBIN ROLAND ([id number]) on 12/14/2024 8:14:06 AM Referred By: Lyn Stone Confirmed By: KHADAR FINE MD
--- NOTE | 2024-12-09 08:56 | RAD_ITS ---
PROCEDURE: CHEST PA AND LATERAL 12/09/2024 REASON FOR EXAM: CHEST PAIN TECHNIQUE: Frontal and lateral views of the chest. COMPARISON: Comparison is made with prior study dated July 28, 2024. FINDINGS: EKG electrodes are seen. A clip is seen overlying the left atrial appendage. The mediastinal contour is unremarkable. No acute abnormality is seen. RAD/Chest PA and Lateral IMPRESSION: No acute abnormality is seen. Reading Location: [facility]
--- NOTE | 2024-12-09 09:09 | EX.ED.DYSGE1 ---
HPI History of Present Illness Chief Complaint: Chest Pain Narrative Narrative: Patient is a 64-year-old female with past medical history of atrial fibrillation/atrial flutter on Eliquis, pulmonary hypertension, FARSHAD, CHF, anxiety, IBS, GERD who presented to the emergency department the chief complaint of chest pain. Patient states that she has had chest pain on and off since the middle of October. States that she was supposed to see a boat hoist operator helper at 3:15 PM this afternoon at [facility] with Dr. Mcmullen. She states that she also follows with the heart failure specialist there as well as the coach operator there. She states that she has had a partial ablation in the past as she had not been able to undergo the full procedure secondary to a repaired ASD. Patient states that the pain woke her up out of the a sleep this morning around 7 AM. States that she took her metoprolol and noted that she felt like she wanted to atrial fibrillation. States that she had worsening pain therefore she came here for the valuation management. Patient states that her pain does not radiate where. Patient states that she is not currently on digoxin nor Cardizem she states that her coach operator was trying to for medications to control her rate in the past therefore these medications are in her chart. Patient denies any sick contacts otherwise feels well. Patient states that she has been compliant with her Xarelto not missing doses [facility] Medical History Wears glasses Depression Anxiety Arthritis Fatty liver Easy bruising Restless legs Migraine headache History of IBS GERD (gastroesophageal reflux disease) CPAP (continuous positive airway pressure) dependence Chronic cough Shortness of breath on exertion Non-smoker History of echocardiogram History of stress test Hypertension Cardiology follow-up encounter History of atrial fibrillation A-fib Pulmonary HTN Sleep apnea Home Medications ?Medication ?Instructions ?Recorded ?Last Taken ?Type rivaroxaban 20 mg tablet (Xarelto) 20 mg PO QPM BLOOD THINNER 03/14/22 12/25/23 History buspirone 5 mg tablet 5 mg PO TID PRN ANXIETY 10/09/23 12/29/23 History cholecalciferol (vitamin D3) 25 25 mcg PO DAILY SUPPLEMENT 10/09/23 07/28/24 History mcg (1,000 unit) tablet (Vitamin D3) cyanocobalamin (vitamin B-12) 1,000 mcg PO DAILY SUPPLEMENT 10/09/23 07/27/24 History 1,000 mcg capsule dofetilide 500 mcg capsule 500 mcg PO BID AFIB 10/09/23 12/29/23 History (Tikosyn) magnesium 250 mg tablet 250 mg PO BID SUPPLEMENT 10/09/23 12/29/23 History potassium chloride 20 mEq 20 meq PO DAILY PRN SUPPLEMENT 10/09/23 12/27/23 History tablet,extended release (K-Tab) tadalafil 20 mg tablet 20 mg PO BID LUNGS 10/09/23 12/29/23 History digoxin 125 mcg (0.125 mg) tablet 125 mcg PO DAILY 04/23/24 07/27/24 History aspirin 81 mg chewable tablet 1 tab PO DAILY 07/16/24 07/26/24 History diltiazem HCl 30 mg tablet 30 mg PO Q6H PRN afib 07/16/24 07/28/24 History (Cardizem) ondansetron 4 mg disintegrating 4 mg PO Q8H PRN nausea and 07/16/24 Unknown Rx tablet vomiting #12 tabs Allergy/AdvReac Type Severity Reaction Status Date / Time codeine Allergy Other Verified 07/28/24 23:00 ibuprofen (From Motrin) Allergy Hives Verified 07/28/24 23:00 Iodinated Contrast Media (CT) Allergy Chest Verified 07/28/24 23:00 tightness morphine Allergy Hives Verified 07/28/24 23:00 phenytoin sodium (From Allergy Other Verified 07/28/24 23:00 Dilantin) phenytoin sodium extended Allergy Other Verified 07/28/24 23:00 (From Dilantin) sulfamethoxazole (From Allergy Hives Verified 07/28/24 23:00 Bactrim) trimethoprim (From Bactrim) Allergy Hives Verified 07/28/24 23:00 Family History Father Lung cancer Obesity Aunt Diabetes CAD (coronary artery disease) Mother VSD (ventricular septal defect) Thyroid disorder Brother Leukemia Grandmother Breast cancer Surgical History History of cardiac catheterization History of atrial septal defect repair (~2021) S/P ERCP S/P laparoscopic cholecystectomy Hx of maze procedure Hx of tubal ligation History of bunionectomy Hx of tonsillectomy Social History Smoking Status: Never smoker ROS ROS ED ROS Narrative Constitutional: Denies fevers, chills, headaches, lightness, dizziness Eyes: Denies change in vision double vision blurry vision Cardiovascular: Complaint chest pain as noted above denies palpitations Respiratory: States that she developed shortness of breath with exertion Abdomen: Denies abdominal pain nausea vomit diarrhea : Denies urinary symptoms Neurological: Denies numbness, weakness, tingling Musculoskeletal: Denies back pain Skin: Denies rashes or lesions EXAM Physical Exam Const Vital Signs: 12/09/24 08:51 12/09/24 08:59 12/09/24 10:44 Temperature 98.9 F Temperature Source Oral Pulse Rate 116 H 98 Respiratory Rate 18 19 H Blood Pressure 136/84 H Blood Pressure Mean 101 Pulse Ox 98 97 Oxygen Delivery Method Room Air Room Air Room Air 12/09/24 11:00 12/09/24 12:00 12/09/24 13:00 Temperature Temperature Source Pulse Rate 111 H 68 Respiratory Rate 20 H 19 H Blood Pressure 124/73 H 124/76 H 113/58 L Blood Pressure Mean 90 92 73 Pulse Ox 96 Oxygen Delivery Method MDM MDM MDM Narrative Medical decision making narrative: Patient is a 64-year-old female who presented to the emerged part with chief complaint chest pain and concern for being in atrial fibrillation/atrial flutter. On the differential diagnose includes but not limited to atrial fibrillation, atrial flutter, ACS, pneumonia, pneumothorax, CHF exacerbation. Once workup is obtained reviewed she will be reevaluated. Echo from 10/10/2023 was reviewed which showed ejection fraction of 55 to 60% at that point in time. She had normal aortic root no pericardial effusion noted. Patient's CBC was reviewed and showed no evidence leukocytosis white blood count normal 5.8, hemoglobin 14.2, platelet count normal at 167. Patient INR 1.3, PT of 15.9 is chronically anticoagulated on Xarelto. Patient sodium normal 139, potassium normal at 4.1, creatinine normal at 0.80. Patient's troponin was noted be 7 with a delta troponin normal at 9. Patient's original EKG showed atrial flutter with a rate of 113 bpm. Patient's proBNP normal at 225. Patient's chest x-ray reviewed by myself by radiology showed no acute cardiopulmonary processes. On reevaluation the patient she has. Did convert into sinus rhythm on the monitor therefore EKG will be repeated. This repeat EKG was reviewed by myself which showed sinus bradycardia with a rate of 59 bpm with evidence of first-degree AV block. I called and discussed case with her boat hoist operator helper at [facility] Dr. Mcmullen and states that she had a heart cath about 2 years ago that was normal. She does not have any underlying vascular disease he states. He states that she can be discharged and come to her appointment in his office at 315 this afternoon. I discussed this plan and results with the patient she is agreeable this plan all question concerns answered she is discharged home in stable condition. Lab Data Labs: Laboratory Results - last 24 hr 12/09/24 12/09/24 09:13 11:21 WBC 5.8 RBC 4.63 Hgb 14.2 Hct 40.0 MCV 86.4 MCH 30.7 MCHC 35.5 RDW Std Deviation 42.1 RDW Coeff of Jenn 13.8 Plt Count 167 MPV 10.1 Immature Gran % (Auto) 0.500 Neut % (Auto) 62.0 Lymph % (Auto) 27.1 [place] % (Auto) 7.2 Eos % (Auto) 2.7 Baso % (Auto) 0.5 Absolute Neuts (auto) 3.6 Absolute Lymphs (auto) 1.58 Nucleated RBC % 0 PT 15.9 H INR 1.3 APTT 23.4 L Sodium 139 Potassium 4.1 Chloride 104 Carbon Dioxide 22.7 Anion Gap 12 BUN 14 Creatinine 0.80 Est GFR (MDRD) Non-Af 83 BUN/Creatinine Ratio 16.9 Glucose 109 H Calcium 9.6 Troponin T High Sens 7 Troponin T Hi Sens 2 Hr 9 NT pro BNP II 225 Radiography Diagnostic Testing: Clinical Impression(s) from Imaging Studies Chest X-Ray 12/09/24 08:56 IMPRESSION: No acute abnormality is seen. Reading Location: [place] [address] Discharge Plan Triage Chief Complaint: Chest Pain ED Provider: Gamal Simons Dx/Rx/DC Orders Clinical Impression: Chest pain, Atrial fibrillation and flutter Prescriptions: No Action digoxin 125 mcg (0.125 mg) tablet 125 mcg PO DAILY Xarelto 20 mg Tablet 20 mg PO QPM Rx Instructions: TAKE ONE TABLET BY MOUTH ONCE DAILY. MUST ADMINISTER WITH MEAL. cyanocobalamin (vitamin B-12) 1,000 mcg capsule 1,000 mcg PO DAILY dofetilide [Tikosyn] 500 mcg capsule 500 mcg PO BID tadalafil 20 mg tablet 20 mg PO BID magnesium 250 mg tablet 250 mg PO BID cholecalciferol (vitamin D3) [Vitamin D3] 25 mcg (1,000 unit) tablet 25 mcg PO DAILY potassium chloride [K-Tab] 20 mEq tablet extended release 20 meq PO DAILY PRN (Reason: SUPPLEMENT ) Patient Comments: PT STATES THEY TAKE ONE POTASSIUM CHLORIDE 20MEQ ONCE DAILY ONLY IF THEY TAKE A DOSE OF BUMETANIDE ( OF 10-09-22) Rx Instructions: TAKE ONE TABLET BY MOUTH ONCE DAILY ONLY IF BUMETANIDE IS TAKEN buspirone 5 mg tablet 5 mg PO TID PRN (Reason: ANXIETY ) aspirin 81 mg tablet,chewable 1 tab PO DAILY diltiazem HCl [Cardizem] 30 mg tablet 30 mg PO Q6H PRN (Reason: afib) ondansetron 4 mg tablet,disintegrating 4 mg PO Q8H PRN (Reason: nausea and vomiting) Qty: 12 0RF Primary Care Provider: Lina Zendejas Referrals: Lina Zendejas MD [Primary Care Provider] - Activity Restrictions/Additional Instructions: Follow-up with your boat hoist operator helper at your scheduled appointment today. Return with worsening symptoms or other concerns. Print Language: Thai Disposition Disposition: Home, Self Care
[2024-12-09 09:26] LABS: Absolute Lymphocyte Count 1.58 X10^3/uL (0.83-4.51); Absolute Neutrophil Count 3.6 X10^3/uL (2.0-7.7); Basophil# 0.03 X10^3/uL; Basophil% 0.5 % (0-1); Eosinophil# 0.16 X10^3/uL; Eosinophils% 2.7 % (0-5); Hemoglobin 14.2 g/dL (12.0-15.0); Lymphocyte # 1.58 X10^3/ul (0.83-4.51); Lymphocyte % 27.1 % (19-41); Mean Corp Hgb Conc 35.5 g/dL (32-36); Mean Corpuscular Hgb 30.7 pg (27.0-32.0); Mean Corpuscular Volume 86.4 fL (81-99); Mean Platelet Vol. 10.1 fl (6.2-12.0); Monocyte# 0.42 X10^3/uL; Monocyte% 7.2 % (0-10); NRBC Flagged by Analyzer 0 % (0-5); Neutrophil # 3.62 X10^3/uL (2.7-7.7); Platelet Count 167 K/mm3 (150-450); RBC Distribution Width CV 13.8 % (11.6-14.6); RBC Distribution Width SD 42.1 fl (35.1-43.9); Red Blood Count 4.63 M/mm3 (4.2-5.4); White Blood Count 5.8 K/mm3 (4.4-11.0)
[2024-12-09 10:00] LABS: International Normalized Ratio 1.3; Partial Thromboplast Time 23.4 Seconds (24.1-36.2); Prothrombin Time (Protime)PT. 15.9 SECONDS (11.7-14.9)
[2024-12-09 10:03] LABS: Pro- Brain NATRIURETIC PEPTIDE 225 pg/mL (<=900); Troponin T High Sensitivity 7 ng/L (<=14)
[2024-12-09 10:08] LABS: Anion Gap 12 (5-15); BUN 14 mg/dL (4-19); BUN/Creat Ratio 16.9 RATIO (10-20); Calcium,Total 9.6 mg/dL (7.6-11.0); Carbon Dioxide 22.7 mmol/L (21.0-32.0); Chloride 104 mmol/L (98-108); EST Glomerular Filtration Rate 83 (>60); Glucose 109 mg/dL (70-99); Potassium 4.1 mmol/L (3.3-5.1); Sodium Level 139 mmol/L (133-145)
[2024-12-09 10:44] VITALS: PULSE 98; RESP 19; O2SAT 97
[2024-12-09 11:00] VITALS: BP 124/73
[2024-12-09 11:49] LABS: Troponin T High Sens 2 HR 9 ng/L (<=14)
[2024-12-09 12:00] VITALS: BP 124/76; PULSE 111; RESP 20
[2024-12-09 13:00] VITALS: BP 113/58; PULSE 68; RESP 19; O2SAT 96
--- NOTE | 2024-12-09 13:30 | EKG12_ITS ---
Test Reason : CP Blood Pressure : */* mmHG Vent. Rate : 59 BPM Atrial Rate : 59 BPM P-R Int : 210 ms QRS Dur : 70 ms QT Int : 460 ms P-R-T Axes : 9 82 42 degrees QTcB Int : 455 ms Sinus bradycardia with 1st degree A-V block Low voltage QRS Borderline ECG When compared with ECG of 09-Dec-2024 08:56, MANUAL COMPARISON REQUIRED DATA IS UNCONFIRMED Confirmed by RODY CURRAN, KHADAR ([id number]), publications editor ROBIN ROLAND ([id number]) on 12/14/2024 7:34:52 AM Referred By: Lyn Stone Confirmed By: KHADAR FINE MD
[2024-12-09 13:45] VITALS: BP 122/67; PULSE 63; RESP 18; O2SAT 97
[2024-12-09 13:56] LABS: Troponin T High Sens 4 HR 9 ng/L (<=14)
== END 2024-12-09 13:54 | disposition home or self-care (01) ==
PROVIDERS: Emergency Provider Emergency Medicine; PCP Internal Medicine; Visit Provider Emergency Medicine
DX: R07.9 Chest pain, unspecified (principal); I11.0 Hypertensive heart disease with heart failure; I50.9 Heart failure, unspecified; I48.91 Unspecified atrial fibrillation; I48.92 Unspecified atrial flutter; G47.33 Obstructive sleep apnea (adult) (pediatric); Z79.01 Long term (current) use of anticoagulants
CPT/HCPCS: 71046; 80048; 83880; 84484; 85025; 85610; 85730; 93005; 99284; A4216

== ENCOUNTER 2025-08-14 12:52 | Emergency (ER) | payer OTHER, SELFPAY ==
[2025-08-14] VITALS (15 sets, daily range): BP systolic 103–139; BP diastolic 37–73; PULSE 64–77; RESP 13–20; TEMP 36.6; O2SAT 93–100; BMI 30.2
--- NOTE | 2025-08-14 13:30 | EX.ED.DYSGE1 ---
HPI History of Present Illness Chief Complaint: Overdose Narrative Narrative: 64-year-old female past medical history of atrial fibrillation on dofetilide 500 micrograms twice a day presents at the direction of [facility] after accidentally taking her nighttime dose 2 hours after her initial dose. She states that she usually takes her medication at 9 AM. However, she was an hour late. She took her first dose at 10 AM. She states she is also on tadalafil. At approximately noon, 2 hours later, she picked up the wrong bottle and took another dofetilide. She is concerned because she was told that if she takes 2 tablets, that it could kill her, prolonging her QT interval. She called poison control, who told her to present to the emergency department for observation. She denies any chest pain, no slow heart rate. She states she tried to induce vomiting with her finger but was unable to do so. She presents with mild anxiety because she took her medication too early. [facility] Medical History Wears glasses Depression Anxiety Arthritis Fatty liver Easy bruising Restless legs Migraine headache History of IBS GERD (gastroesophageal reflux disease) CPAP (continuous positive airway pressure) dependence Chronic cough Shortness of breath on exertion Non-smoker History of echocardiogram History of stress test Hypertension Cardiology follow-up encounter History of atrial fibrillation A-fib Pulmonary HTN Sleep apnea Home Medications ?Medication ?Instructions ?Recorded ?Last Taken ?Type rivaroxaban 20 mg tablet (Xarelto) 20 mg PO QPM BLOOD THINNER 03/14/22 12/25/23 History buspirone 5 mg tablet 5 mg PO TID PRN ANXIETY 10/09/23 12/29/23 History cholecalciferol (vitamin D3) 25 25 mcg PO DAILY SUPPLEMENT 10/09/23 07/28/24 History mcg (1,000 unit) tablet (Vitamin D3) cyanocobalamin (vitamin B-12) 1,000 mcg PO DAILY SUPPLEMENT 10/09/23 07/27/24 History 1,000 mcg capsule dofetilide 500 mcg capsule 500 mcg PO BID AFIB 10/09/23 12/29/23 History (Tikosyn) magnesium 250 mg tablet 250 mg PO BID SUPPLEMENT 10/09/23 12/29/23 History potassium chloride 20 mEq 20 meq PO DAILY PRN SUPPLEMENT 10/09/23 12/27/23 History tablet,extended release (K-Tab) tadalafil 20 mg tablet 20 mg PO BID LUNGS 10/09/23 12/29/23 History digoxin 125 mcg (0.125 mg) tablet 125 mcg PO DAILY 04/23/24 07/27/24 History aspirin 81 mg chewable tablet 1 tab PO DAILY 07/16/24 07/26/24 History diltiazem HCl 30 mg tablet 30 mg PO Q6H PRN afib 07/16/24 07/28/24 History (Cardizem) ondansetron 4 mg disintegrating 4 mg PO Q8H PRN nausea and 07/16/24 Unknown Rx tablet vomiting #12 tabs Allergy/AdvReac Type Severity Reaction Status Date / Time codeine Allergy Other Verified 08/14/25 12:53 ibuprofen (From Motrin) Allergy Hives Verified 08/14/25 12:53 Iodinated Contrast Media (CT) Allergy Chest Verified 08/14/25 12:53 tightness morphine Allergy Hives Verified 08/14/25 12:53 phenytoin sodium (From Allergy Other Verified 08/14/25 12:53 Dilantin) phenytoin sodium extended Allergy Other Verified 08/14/25 12:53 (From Dilantin) sulfamethoxazole (From Allergy Hives Verified 08/14/25 12:53 Bactrim) trimethoprim (From Bactrim) Allergy Hives Verified 08/14/25 12:53 Family History Father Lung cancer Obesity Aunt Diabetes CAD (coronary artery disease) Mother VSD (ventricular septal defect) Thyroid disorder Brother Leukemia Grandmother Breast cancer Surgical History History of cardiac catheterization History of atrial septal defect repair (~2021) S/P ERCP S/P laparoscopic cholecystectomy Hx of maze procedure Hx of tubal ligation History of bunionectomy Hx of tonsillectomy Social History Smoking Status: Never smoker ROS ROS ED ROS Narrative Review of systems negative, no chest pain, no shortness of breath, no nausea or vomiting. No slow heart rate noted. EXAM Physical Exam Narrative Exam Narrative: Afebrile. Vital signs noted. Nontoxic-appearing. Cardiovascular examination reveals a regular rate and rhythm. Lungs are clear to auscultation bilaterally. Abdomen is soft and nontender with positive bowel sounds. Neurological examination is nonfocal, nonlateralizing, no pedal edema. Mild anxiety. Const Vital Signs: 08/14/25 12:53 08/14/25 13:52 08/14/25 14:00 Temperature 98 F Temperature Source Temporal Pulse Rate 77 65 70 Respiratory Rate 14 13 13 Blood Pressure 139/58 H 112/58 L 103/73 Blood Pressure Mean 85 76 79 Pulse Ox 98 99 94 Oxygen Delivery Method Room Air 08/14/25 15:00 Temperature Temperature Source Pulse Rate 72 Respiratory Rate 16 Blood Pressure 117/54 L Blood Pressure Mean 75 Pulse Ox 100 Oxygen Delivery Method Room Air MDM MDM MDM Narrative Medical decision making narrative: I do not feel that differential diagnosis is applicable in this case. I do not feel that she needs laboratory work. EKG was obtained and interpreted by myself independently as normal sinus rhythm at 75 bpm without ectopy or acute ST changes. No STEMI. QTc 475 ms. It was recommended by poison control that she have EKG monitoring for 4 to 6 hours. She was reassured. She was placed on alarm security or surveillance monitor, and will be observed in the emergency department for 4 hours. I was able to discuss patient with Dr. Hu with [facility] on-call for Dr. Nguyen. He would like potassium checked, as well as magnesium to make sure she is not hypokalemic as this would be more preventative against torsade de pointes. Additionally, he suggested that EKG be checked after second dose of Tikosyn as the initial EKG was only taken an hour afterwards. On my individual interpretation of her repeat EKG, it demonstrates normal sinus rhythm at 65 bpm, no acute ST changes. However, QTc is slightly prolonged at 505 as compared to initial EKG. I reviewed her laboratory work and she has normal potassium of 4.0 with magnesium also normal at 2.1. Repeat examination does show that she is resting comfortably. She was told about the slightly prolonged QTc and the need for repeat EKG prior to discharge. As according to cardiology, her normal potassium and magnesium make it less likely that she would develop torsades. At this point in time, patient will be signed out to the oncoming physician, Dr. Cox, to repeat the EKG, recheck it prior to discharge after 6 hours of observation, and as long as it is shortening again or acceptable, she will be discharged to follow-up with cardiology. She was told to take her Tikosyn dose at 9 PM so as to avoid starting over and the need for inpatient monitoring. Currently she is in stable condition. History & Record Review Discussion w/independent historian: Patient and Family Lab Data Attestation: I reviewed the patient's lab results. Labs: Laboratory Results - last 24 hr 08/14/25 14:43 Sodium 142 Potassium 4.0 Chloride 105 Carbon Dioxide 28.9 Anion Gap 8 BUN 15 Creatinine 0.81 Estim Creat Clear Calc 75.33 Est GFR (MDRD) Non-Af 82 BUN/Creatinine Ratio 18.6 Glucose 106 H Calcium 9.6 Magnesium 2.1 Management Discussion w/another healthcare provider: Architectural Technician (Dr. Hu, [facility]) Discharge Plan Triage Chief Complaint: Overdose ED Provider: Cosmo Quick Dx/Rx/DC Orders Clinical Impression: Accidental medication overdose, A-fib Instructions: ED Accidental Ingestion ... Prescriptions: No Action digoxin 125 mcg (0.125 mg) tablet 125 mcg PO DAILY Xarelto 20 mg Tablet 20 mg PO QPM Rx Instructions: TAKE ONE TABLET BY MOUTH ONCE DAILY. MUST ADMINISTER WITH MEAL. cyanocobalamin (vitamin B-12) 1,000 mcg capsule 1,000 mcg PO DAILY dofetilide [Tikosyn] 500 mcg capsule 500 mcg PO BID tadalafil 20 mg tablet 20 mg PO BID magnesium 250 mg tablet 250 mg PO BID cholecalciferol (vitamin D3) [Vitamin D3] 25 mcg (1,000 unit) tablet 25 mcg PO DAILY potassium chloride [K-Tab] 20 mEq tablet extended release 20 meq PO DAILY PRN (Reason: SUPPLEMENT ) Patient Comments: PT STATES THEY TAKE ONE POTASSIUM CHLORIDE 20MEQ ONCE DAILY ONLY IF THEY TAKE A DOSE OF BUMETANIDE ( OF 10-09-22) Rx Instructions: TAKE ONE TABLET BY MOUTH ONCE DAILY ONLY IF BUMETANIDE IS TAKEN buspirone 5 mg tablet 5 mg PO TID PRN (Reason: ANXIETY ) aspirin 81 mg tablet,chewable 1 tab PO DAILY diltiazem HCl [Cardizem] 30 mg tablet 30 mg PO Q6H PRN (Reason: afib) ondansetron 4 mg tablet,disintegrating 4 mg PO Q8H PRN (Reason: nausea and vomiting) Qty: 12 0RF Primary Care Provider: Lina Zendejas Referrals: Lina Zendejas MD [Primary Care Provider, Internal Medicine] Activity Restrictions/Additional Instructions: Take your regular Tikosyn dose tonight at 9 PM. If you skip it, you will have to start over again with monitored dosing in the hospital. Follow-up with your business case analyst as soon as possible. Print Language: Danish
--- OUTSIDE RECORDS SUMMARY | 2025-08-14 13:48 | XMS RPT_ITS | CCD ---
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 Role Phone RODOCOY, LINA Unavailable Unavailable RODOCOY, LINA Unavailable Unavailable HLIVKO, LOLIS Unavailable TIMUR, CHAD Unavailable PODUGU, PARAG Unavailable RODOCOY, LINA Unavailable Unavailable RODOCOY, LINA Unavailable Unavailable HLIVKO, LOLIS Unavailable TIMUR, CHAD Unavailable PODUGU, PAARG Unavailable RODMARGARETHY, LINA Unavailable Unavailable RODOCOY, LINA Unavailable Unavailable HLIVKO, LOLIS Unavailable TIMUR, CHAD Unavailable PODUGU, PARAG Unavailable Lina Zendejas MD Primary Care Provider [phone] RODOCOY, LINA Unavailable Unavailable RODOCOY, LINA Unavailable Unavailable HLIVKO, LOLIS Unavailable TIMUR, CHAD Unavailable PODUGU, PARAG Unavailable RODOCOY, LINA Unavailable Unavailable RODOCOY, LINA Unavailable Unavailable HLIVKO, LOLIS Unavailable TIMUR, CHAD Unavailable PODUGU, PARAG Unavailable LINA ZENDEJAS MD Primary Care Physician Nohelia Zabala Unavailable Unavailable Carley Townsend Attending Unavailable Rodmahsa, Lina A Primary Care Unavailable Teresa, Lina A Attending Unavailable Rodmargarethy, Lina A Primary Care Unavailable Rodocoy, Lina A Attending Unavailable Rodocoy, Lina A Primary Care Unavailable Repp, Clement M Attending Unavailable Rodocoy, Lina A Primary Care Unavailable Repp, Clement M Attending Unavailable Rodocoy, Lina A Primary Care Unavailable KemiAnamkeyanna Remington Attending Unavailable Rodocoy, Lina A Primary Care Unavailable Jose Feliciano Attending Unavailable Rodocoy, Lina A Primary Care Unavailable RODOCOY, LINA Unavailable Unavailable RODOCOY, LINA Unavailable Unavailable HLIVKO, LOLIS Unavailable UTLAK, MARIELA Unavailable CARY, NIHAD Unavailable Lina Zendejas MD Primary Care Provider RODOCOY, LINA Unavailable Unavailable RODOCOY, LINA Unavailable Unavailable HLIVKO, LOLIS Unavailable [facility] Unavailable CARY, NIHAD Unavailable RODOCOY, LINA Unavailable Unavailable RODOCOY, LINA Unavailable Unavailable HLIVKO, LOLIS Unavailable AZLAK, MARIELA Unavailable CARY, NIHAD Unavailable RODOCOY, LINA Unavailable Unavailable RODOCOY, LINA Unavailable Unavailable HLIVKO, LOLIS Unavailable AZLAK, MARIELA Unavailable CARY, NIHAD Unavailable Lina Zendejas MD Primary Care Provider RODOCOY, LINA JONAH Primary Care Unavailable RODOCOY, LINA JONAH Primary Care Unavailable ERIKA GARCIA Referring Unavailable RODOCOY, LINA JONAH Primary Care Unavailable RODOCOY, LINA Primary Care Provider Dr. Yovanny Bran Emergency Provider Dr. Jamar Ventura Admit Provider Dr. Jamar Ventura Other Provider [phone] Lauren Brewer Other Provider GrayMARIA DE JESUS Burleson Attending Provider Dr. Lauren Brewer Attending Provider Ravindra, Dr. Azevedo Attending Provider Dr. Mariely Quintanilla Attending Provider Dr. Jamar Ventura Attending Provider Dr. Elvia Terrell Attending Provider RODOCOY, LINA Unavailable Unavailable RODOCOY, LINA Unavailable Unavailable HLIVKO, LOLIS Unavailable MARIELA MAYBERRY Unavailable CARY, NIHAD Unavailable Dr. Jamar Ventura Attending Provider MARIA DE JESUS Medel Referring Provider Dr. Jamar Ventura Referring Provider MARIA DE JESUS Medel Attending Provider Dr. Marco A French Attending Provider [phone] RODOCOY, LINA Unavailable Unavailable RODOCOY, LINA Unavailable Unavailable HLIVKO, LOLIS Unavailable UTMARIELA ABDI Unavailable CARY, NIHAD Unavailable RODOCOY, LINA Unavailable Unavailable RODOCOY, LINA Unavailable Unavailable HLIVKO, LOLIS Unavailable AZMARIELA ABDI Unavailable CARY, NIHAD Unavailable RODOCOY, LINA Primary Care Provider Dr. Yovanny Bran Emergency Provider Dr. Jamar Ventura Admit Provider Dr. Jamar Ventura Attending Provider Dr. Jamar Ventura Other Provider Dr. Lauren Brewer Other Provider Dr. Lauren Brewer Attending Provider MARIA DE JESUS Medel Referring Provider Dr. Jamar Ventura Referring Provider Friend, Dr. Azevedo Attending Provider MARIA DE JESUS Medel Attending Provider Dwight, Dr. Thompson Attending Provider [facility], Dr. Gan Attending Provider Dr. Marco A French Attending Provider Friend, Dr. Azevedo Referring Provider Friend, Dr. Azevedo Other Provider [phone] Care Physician, No Primary Primary Care Provider Unavailable RODOCOY, LINA Unavailable Unavailable RODOCOY, LINA Unavailable Unavailable HLIVKO, LOLIS Unavailable SHAWANDA, MRAIELA Unavailable CARY, NIHAD Unavailable RODOCOY, LINA Unavailable Unavailable RODOCOY, LINA Unavailable Unavailable HLIVKO, LOLIS Unavailable AZJIN, MARIELA Unavailable CARY, NIHAD Unavailable RODOCOY, LINA Unavailable Unavailable RODOCOY, LINA Unavailable Unavailable HLIVKO, LOLIS Unavailable SHAWANDA, MARIELA Unavailable CARY, NIHAD Unavailable Robin Mares Unavailable Unavailable RICHARD GILL Attending Unavailable TERESA CURRAN, LINA Primary Care Unavailable MERNA ZAVALETA, JACY Waldron Attending Marylou solomon ZENDEJAS MD, LINA Primary Care Unavailable GUSTAVO CURRAN, DR JAVIER Damon Attending Unavailramon ZENDEJAS MD, LINA Primary Care Unavailable TERESA CURRAN, LINA Primary Care Unavailable KEMI CURRAN, HANK Attending Unavailable KEMI CURRAN, HANK Consulting Unavailable OLI CURRAN, SOPHIA Consulting Unavailable JUSTIN MORILLO MD Consulting Unavailramon ZENDEJAS MD, LINA Primary Care Unavailable MARIELA CURRAN, DR MOTA Attending Unavailable MARIELA CURRAN, DR MOTA Admitting Unavailable MACI HARDY Consulting Unavailable Lina Zendejas MD Primary Care Provider [phone] RODOCOY, LINA Unavailable Unavailable RODOCOY, LINA Unavailable Unavailable HLIVKO, LOLIS Unavailable SUMITJIN MARIELA Unavailable CARY, NIHAD Unavailable RODOCOY, LINA Unavailable Unavailable RODOCOY, LINA Unavailable Unavailable HLIVKO, LOLIS Unavailable SUMITMARIELA ABDI Unavailable CARY, NIHAD Unavailable RODOCOY, LINA Unavailable Unavailable RODOCOY, LINA Unavailable Unavailable HLIVKO, LOLIS Unavailable MARIELA MAYBERRY Unavailable CARY, NIHAD Unavailable Jamar Ventura Attending Unavailable Rodocoy, Lina A Primary Care Unavailable BHAVIK, DONNA Referring Unavailable Gamal Simons Attending Unavailable Casey Bryson Attending Unavailable COUETTE, DONNA Primary Care Unavailable Care Physician, No Primary Primary Care Unava ilable Friend, Roberto Carlos Referring Unavailable Friend, Roberto Carlos Attending Unavailable COUETTE, DONNA Primary Care Unavailable Julio Kendall Attending Unavailable Rodocoy, Lina A Primary Care Unavailable Cosmo Quick Attending Unavailable Rodocoy, Lina A Primary Care Unavailable Yovanny Bran Attending Unavailable Bhargav Galvan Attending Unavailable Rodocoy, Lina A Primary Care Unavailable Jamar Ventura Attending Unavailable Rodocoy, Lina A Primary Care Unavailable Friend, Roberto Carlos Attending Unavailable Friend, Roberto Carlos Consulting Unavailable Care Physician, No Primary Primary Care Unava ilable Friend, Roberto Carlos Referring Unavailable Care Physician, No Primary Primary Care Unava ilable Jamar Clark Attending Unavailable Friend, Roberto Carlos Referring Unavailable Teresa CURRAN, Dr. Lina Waldron Primary Care Provider Dr. Gamal Simons DO Emergency Provider [phone] Lyn Ha MD Referring Provider LELAND CURRAN, DR SERRANO Primary Care Physician Unapriyank BAUMAN APRN-CASER, JACY Waldron Attending Marylou vailacarlitos HA MD, DR SERRANO Primary Care Unavailable LELAND CURRAN, DR SERRANO Primary Care Unavailable PAXOS MD, HANK Attending Unavailable LINA ZENDEJAS MD Primary Care Unavailable MARIELA CURRAN, DR MOTA Admitting Unavailable JUSTIN MORILLO MD Consulting Unavailramon DEWEY MD, DR GEOFFREY Horner Attending Unavailable MACI HARDY MD Consulting Unavailable LELAND CURRAN, DR SERRANO Primary Care Unavailable KEMI CURRAN, HANK Attending Unavailable LINA ZENDEJAS Unavailable Unavailable LINA ZENDEJAS Unavailable Unavailable MANUELA LOLIS Unavailable MARIELA MAYBERRY Unavailable CARLEY TOWNSEND Unavailable Allergies Allergy Classification Reported Allergen(s) Allergy Type Date of Onset Reaction(s) Facility Furosemide (1 source) Furosemide; Translations: [LASIX] Drug Allergy rash [employer] Work Phone: NSAIDs (1 source) Ibuprofen; Translations: [MOTRIN] Drug Allergy [employer] Work Phone: Opioid Agonists (3 sources) Codeine; Translations: [CODEINE] Drug Allergy vomiting, [employer] Work Phone: Sulfamethoxazole / Trimethoprim (1 source) Sulfamethoxazole / Trimethoprim; Translations: [BACTRIM] Drug Allergy rash [employer] Work Phone: (20 sources) Codeine; Translations: [CODEINE] Drug Allergy 016 Other: See Comments, Hallucinations (finding) [facility] (18 sources) HYDROmorphone; Translations: [DILAUDID] Drug Allergy vomiting [employer], [employer] Work Phone: (18 sources) Ibuprofen; Translations: [MOTRIN] Drug Allergy [employer], [employer] Work Phone: (20 sources) Morphine; Translations: [MORPHINE] Drug Allergy 016 [facility] (18 sources) Sulfamethoxazole / Trimethoprim; Translations: [BACTRIM] Drug Allergy rash [employer], [employer] Work Phone: (20 sources) Triiodobenzoic Acids; Translations: [IODINATED CONTRAST MEDIA (SUBSTANCE)] Allergy to substance anaphylaxis [facility] Comment on above: NEW 02/17/16- USED OM NIPAQUE CT 3 PHASE LIVER CONTRAST (8 sources) HYDROmorphone; Translations: [HYDROMORPHONE (BULK)] Drug Allergy Other: See Comments [facility] (20 sources) Ibuprofen; Translations: [ibuprofen] Drug Allergy [facility] (8 sources) Iodine; Translations: [IODINE] Drug Allergy Swelling [facility] (20 sources) Sulfamethoxazole / Trimethoprim; Translations: [sulfamethoxazole-t rimethoprim] Drug Allergy Hives, Eruption of skin (disorder), Itching (finding) [facility] (8 sources) Phenytoin; Translations: [phenytoin sodium] Drug Allergy Other [facility] Comment on above: LOST ALL BODILY FUN CTIONS (8 sources) Phenytoin; Translations: [phenytoin sodium extended] Drug Allergy Other [facility] Comment on above: LOST ALL BODILY FUN CTIONS (7 sources) Sulfamethoxazole Drug Allergy [facility] (7 sources) Trimethoprim Drug Allergy [facility] (20 sources) HYDROmorphone; Translations: [hydromorphone] Drug Allergy Nausea and vomiting (disorder), Diarrhea (finding), Dizziness (finding) [facility] (18 sources) Sulfonamides (Antibiotic); Translations: [sulfa drugs] Drug allergy Itching (finding), Eruption of skin (disorder) [facility] [employer] (20 sources) Cigarette smoke (substance) Allergy to substance Watery eye (finding) [facility] (20 sources) iodinated radiocontrast dyes; Translations: [iodinated radiocontrast agents] Drug allergy Racing heartbeat [facility] (1 source) Codeine Drug Allergy [facility] (1 source) HYDROmorphone Drug Allergy [facility] (1 source) Ibuprofen Drug Allergy [facility] (1 source) Morphine Drug Allergy [facility] (1 source) Sulfamethoxazole Drug Allergy [facility] (1 source) Iodinated Diagnostic Agents Drug allergy (disorder) [facility] (8 sources) predniSONE; Translations: [prednisone] Drug Allergy [facility] Comment on above: states this was PO f or IVP dye allergy premed. states her heart rate was elevated requiring multiple doses of metoprolol (9 sources) Furosemide; Translations: [LASIX] Drug Allergy rash [employer] Work Phone: (3 sources) Sulfonamide; Translations: [sulfa drugs] Drug allergy Itching (finding), Eruption of skin (disorder) [facility] (1 source) Codeine Drug Allergy [facility] (1 source) Ibuprofen Drug Allergy [facility] (1 source) Morphine Drug Allergy [facility] (1 source) Sulfamethoxazole Drug Allergy [facility] (1 source) Trimethoprim Drug Allergy [facility] (1 source) Iodinated Contrast Media Drug allergy (disorder) [facility] Medications Current Medications Medication Drug Class(es) Dates Sig (Normalized) Sig (Original) [id number] 200 actuat albuterol 0.09 mg/actuat metered dose inhaler (19 sources) beta2-Adrenergic Agonist take 1 puff(s) by mouth four times daily as needed albuterol sulfate HFA 90 mcg/actuation aerosol inhaler INHALE 1 PUFF BY MOUTH up to 4 TIMES A DAY NEEDED active Not Available Not Available Not Available ProAir HFA 90 mc g/actuation aerosol inhaler Inhale 2 puffs as needed by inhalation route. active Not Available Not Available Not Available aspirin 325 mg oral tablet (20 sources) Platelet Aggregation Inhibitor, Nonsteroidal Anti-inflammatory Drug Start: 01-13-2025 aspirin 325 mg or al tablet mg = tab(s), Oral, PRN Chest pain, 0 Refill(s) Start Date: 01/13/25 Status: Ordered Repeat number: 1 Start: 07-16-2024 Aspirin 81 mg tablet,chewable Active 1 {tbl} PO DAILY July 16, 2024 12:00am Start: 05-23-2024 End: 07-16-2024 take 1 tablet by mouth once daily Aspirin 81 mg tablet,delayed release (DR/EC) Discontinued 81 mg PO DAILY May 23, 2024 12:00am July 16, 2024 3:07am Start: 09-09-2023 aspirin 81 mg oral tablet, chewable Dose : 81 mg = 1 tab(s), Oral, Daily, # 30 tab(s), 3 Refill(s), Pharmacy: [facility], 165.1, cm, 07/03/23 16:16:00 EDT, [...] qDay, # 30 tab(s), 0 Refill(s), Pharmacy: [facility], 165, cm, 04/30/23 5:47:00 EDT, Height, kg, 05/05/23 9:11:00 EDT, Dosing Weight Start Date: 05/12/23 Status: Ordered Start: 05-12-2023 aspirin 81 mg oral delayed release tablet Dose : 81 mg = 1 tab(s), Oral, qDay, # 30 tab(s), 0 Refill(s), Pharmacy: [facility], 165, cm, 04/30/23 5:47:00 EDT, [...] chew, # 15 tab(s), 1 Refill(s), Pharmacy: [facility], 165, cm, 04/30/23 5:47:00 EDT, Height, kg, 05/05/23 9:11:00 EDT, Dosing Weight Start Date: 05/06/23 Stop Date: 05/11/23 Status: Ordered Start: 10-18-2022 aspirin, enter ic coated (ASPIRIN, ENTERIC COATED) 81 mg EC tablet 81 mg. 10/18/2022 Active Start: 08-08-2022 aspirin 81 mg oral delayed release tablet Dose : 81 mg = 1 tab(s), Oral, Daily, # 30 tab(s), 0 Refill(s), Pharmacy: [id number], 167.6, cm, 08/07/22 5:48:00 EST, Height Start Date: 08/08/22 Status: Ordered Start: 08-08-2022 End: 08-13-2019 aspirin 81 mg oral delayed r elease tablet Dose : 81 mg = 1 tab(s), Oral, Daily, # 30 tab(s), 0 Refill(s), Pharmacy: [id number], 167.6, cm, 08/07/22 5:48:00 EST, Height Start Date: 08/08/22 Status: Ordered End: 12-10-2024 take 1 tablet by mouth once daily aspirin 81 mg tablet,delayed release Take 1 tablet every day by oral route. 12/10/2024 completed Not Available Not Available Not Available Comment on above: 81 mg. B12 (13 sources) B12 1000mcg qd a ctive Not Available Not Available Not Available B12 1000mcg qd a ctive bisoprolol fumarate 5 mg oral tablet (1 source) beta-Adrenergic Wyatt Start: 08-14-2022 bisopr olol 5 mg oral tablet Dose : 2.5 mg = 0.5 tab(s), Oral, Daily, # 15 tab(s), 3 Refill(s), Pharmacy: [id number], 167.6, cm, 08/14/22 14:51:00 EST, Height Start Date: 08/14/22 Status: Ordered Burdock root extract (7 sources) BURDOCK ROOT ORA L Take by mouth. Active BURDOCK ROOT ORA L Take by mouth. 0 Active Comment on above: Take by mouth. busPIRone hydrochloride 5 mg oral tablet (20 sources) Start: 02-14-2023 take 1 tablet by mouth three times daily as needed buspirone 5 mg tablet Take 1 tablet 3 times a day by oral route as needed. 10/02/2023 active increase to 10mg TID prn as of 12/05/23--PAR Not Available Not Available Not Available carvedilol 12.5 mg oral tablet (20 sources) alpha-Adrenergic Wyatt, beta-Adrenergic Wyatt Start: 02-16-2021 End: 07-06-2021 take 0.5 tablet by mouth twice daily carvedilol (COREG) 12.5 mg tablet Take 0.5 tablets by mouth twice daily. 02/16/2021 Active Start: 02-16-2021 take 1 tablet by hina th twice daily Coreg 12.5 mg tablet Take 1 tablet twice a day by oral route. 02/16/2021 active Comment on above: Take 0.5 tablets by mouth twice daily. cholecalciferol 0.025 mg oral tablet (20 sources) Vitamin D Start: 10-09-19 take 1 tablet by mouth once daily Cholecalciferol (Vitamin D3) (Vitamin D3) 25 mcg (1,000 unit) tablet Active 25 ug PO DAILY October 09, 2023 1:00am take 1 capsule by mouth once martin ly Vitamin D3 25 mcg (1,000 unit) capsule Take 1 capsule every day by oral route. active Not Available Not Available Not Available cholecalciferol (VITAMIN D3) 5,000 unit tab q 24 HR. Active Comment on above: q 24 HR. codeine phosphate 2 mg/ml / guaiFENesin 20 mg/ml oral solution (19 sources) Opioid Agonist Start: 08-05-20 take 10 mL by mouth every four hours as needed Guaiatussin AC 10 mg-100 mg/5 mL oral liquid Take 10 mL every 4 hours by oral route as needed. 08/05/2014 active Not Available Not Available Not Available cyclobenzaprine hydrochloride 10 mg oral tablet (19 sources) Muscle Relaxant take 1 tablet by [...] by topical route for 15 days. active dilTIAZem hydrochloride 30 mg oral tablet (3 sources) Calcium Channel Wyatt Start: 07-16-2024 take 1 tablet by mouth every six hours as needed Diltiazem Hcl (Cardizem) 30 mg tablet Active 30 mg PO EVERY 6 HOURS as needed for afib July 16, 2024 12:00am Start: 05-05-2023 End: 05-05-2023 Cardizem Start: 05/05/23 12:3 0:00 AM EDT, Dose = 15 mg, = [...] Date: 05/04/23 Stop Date: 05/04/23 Status: Completed DilTIAZem (Eqv-Cardizem CD) 120 mg/24 hours oral capsule, extended release (3 sources) Start: 11-14-2022 End: 11-09-2023 DilTIAZem (Eqv-Cardizem CD) 120 mg/24 hours oral capsule, extended release Dose : 120 mg = 1 cap(s), Oral, qDay, # 30 cap(s), 11 Refill(s), Pharmacy: [facility], 167.6, cm, 10/24/22 14:14:00 EST, Height, kg, 10/24/22 14:14:00 EST, Dosing Weight Start Date: 11/14/22 Stop Date: 11/09/23 Status: Ordered Start: 10-13-2022 End: 11-12-2022 DilTIAZem (Eqv-Cardizem CD) 120 mg/24 hours oral capsule, extended release Dose : 120 mg = 1 cap(s), Oral, qDay, # 30 cap(s), 0 Refill(s), Pharmacy: [facility] #[id number], 167.6, cm, 10/08/22 8:33:00 EST, Height Start [...] Comment on above: Take [address] [facility] as directed for 1 dose. one (1) hour prior to exam. dofetilide 0.5 mg oral capsule (20 sources) Antiarrhythmic Start: 06-19-2024 Tikosyn 500 mcg oral capsule Dose : 500 mcg = 1 cap(s), Oral, BID, # 180 cap(s), 3 Refill(s), Pharmacy: [facility], 165.1, cm, 05/23/24 11:32:00 EDT, Height, kg, 05/23/24 11:32:00 EDT, Dosing Weight Start Date: 06/19/24 Status: Ordered Quantity: 180.0 Unit: cap(s) Repeat number: 4 Start: 02-24-2024 Tikosyn 500 mc g oral capsule Dose : 500 mcg = 1 cap(s), Oral, BID, # 60 cap(s), 3 Refill(s), Pharmacy: [facility], 165.1, cm, 12/11/23 16:29:00 EDT, Height, kg, 12/11/23 16:29:00 EDT, Dosing Weight Start Date: 02/24/24 Status: Ordered Start: 10-09-2023 take [address] [facility] twice daily Dofetilide (Tikosyn) 500 mcg capsule Active 500 ug PO TWICE A DAY October 09, 2023 1:00am Start: 02-05-2023 dofetilide (TI KOSYN) 250 mcg [...] SMS, # 120 cap(s), 1 Refill(s), Pharmacy: [facility], 167.6, cm, 12/25/22 11:36:00 EDT, Height Start Date: 12/31/22 Status: Ordered Start: 10-18-2022 dofetilide 500 mcg oral capsule Dose : 500 mcg = 1 cap(s), Oral, q12h, # 180 cap(s), 3 Refill(s), Pharmacy: [facility], 167, cm, 10/16/22 9:45:00 EST, Height, kg, 10/16/22 9:45:00 EST, Dosing Weight Start Date: 10/18/22 Status: Ordered Start: 10-11-2022 dofetilide 500 mcg oral capsule Dose : 500 mcg = 1 cap(s), Oral, q12h, # 180 cap(s), 0 Refill(s), Pharmacy: [facility] #[id number], 167.6, cm, 10/08/22 8:33:00 EST, Height Start Date: 10/11/22 Status: Ordered take 2 capsules by m outh twice daily Tikosyn 250 mcg capsule Take 2 capsules twice a day by oral route. active Not Available Not Available Not Available Comment on above: Dose : 500 mcg = 2 cap(s), Oral, BID Magnesium (5 sources) Start: 10-09-2023 take 1 tablet by mouth twice daily Magnesium 250 mg tablet Active 250 mg PO TWICE A DAY October 09, 2023 1:00am Start: 10-09-2023 take 250 mg by mouth twice martin ly Magnesium Active 250 MG PO TWICE A DAY October 09, 2023 1:00am Start: 10-09-2023 take 250 mg by mouth twice martin ly Magnesium Active 250 MG PO TWICE A DAY October 09, 2023 12:00am magnesium oxide 250 mg oral tablet (20 sources) Start: 02-05-2023 Magnesium Oxid e 250 mg magnesium tab 500 mg. 02/05/2023 Active Start: 02-05-2023 magnesium oxid e 250 mg oral tablet Dose : 250 mg = 1 tab(s), Oral, BID Start Date: 02/05/23 Status: Ordered Repeat number: 1 Start: 10-11-2022 End: 10-13-2022 magnesium oxide 400 mg oral tablet Dose : 400 mg = 1 tab(s), Oral, TID, X 2 day(s), # 6 tab(s), 0 Refill(s), 10/13/22 8:43:00 EST, Pharmacy: [facility] #[id number], 167.6, cm, 10/08/22 8:33:00 EST, Height Start Date: 10/11/22 Stop Date: 10/13/22 Status: Ordered Comment on above: 500 mg. 24 hr metoprolol succinate 25 mg extended release oral tablet (20 sources) beta-Adrenergic Wyatt Start: 09-21-2024 take 1 tablet by mouth in the morning, then take 0.5 tablet by mouth in the evening metoprolol succinate 25 mg oral TABLET extended release See Instructions, take 1 in am and 0.5 in pm, # 60 tab(s), 3 Refill(s), Pharmacy: [facility], 165.1, cm, 07/10/24 13:15:00 EDT, Height, kg, 07/10/24 13:15:00 EDT, Dosing Weight Start Date: 09/21/24 Status: Ordered Quantity: 60.0 Unit: tab(s) Repeat number: 4 Start: 08-06-2024 metoprolol suc cinate ER 25 mg tablet,extended release 24 hr BID prn 08/06/2024 active Not Available Not Available Not Available Start: 10-09-2023 End: 07-16-2024 take 2 tablets by mouth once daily in the evening Metoprolol Succinate 25 mg tablet extended release 24 hr Discontinued 12.5 mg PO EVERY EVENING October 09, 2023 1:00am July 16, 2024 3:07am Start: 10-09-2023 take 12.5 mg by mout h once daily in the evening Metoprolol Succinate Active 12.5 MG PO EVERY EVENING October 09, 2023 1:00am Start: 05-01-2023 End: 05-01-2023 Lopressor Start: 05/01/23 [...] 01/31/23 Stop Date: 01/31/23 Status: Completed Start: 08-22-2022 End: 07-21-2024 take 1 tablet by mouth once daily as needed Metoprolol Succinate 25 mg tablet extended release 24 hr Discontinued 25 mg PO DAILY as needed for BLOOD PRESSURE October 09, 2023 1:00am July 16, 2024 3:07am Start: 05-16-2022 metoprolol (LO PRESSOR) 5 mg/5 [...] 5 days. nebivolol 2.5 mg oral tablet (2 sources) Start: 09-03-202 4 nebivolol 2.5 mg oral tablet Dose : 2.5 mg = 1 tab(s), Oral, Daily, # 180 tab(s), 3 Refill(s), Pharmacy: [facility], 165.1, cm, 05/23/24 11:32:00 EDT, Height, kg, 05/23/24 11:32:00 EDT, Dosing Weight Start Date: 05/26/24 Status: Ordered NETTLE LEAF ORAL (7 sources) NETTLE LEAF ORAL Take by mouth. Active NETTLE LEAF ORAL Take by mouth. 0 Active Comment on above: Take by mouth. nitroglycerin 0.3 mg sublingual tablet (5 sources) Nitrate Vasodilator Start: 05-16-20 take 1 tablet under the tongue once [...] oral tablet (1 source) Opioid Agonist Start: 05-06-20 End: 05-13-20 oxyCODONE 5 mg oral tablet ( IMMEDIATE release ) Dose : 5 mg = 1 tab(s), Oral, q6hr, PRN Pain, scale 7-10, X 7 day(s), # 28 tab(s), 0 Refill(s), 05/13/23 10:23:00 AM EDT, Pharmacy: [facility], Atrial fibrillation s/p Convergent Maze, RICHARD Clip, 04/30/2023 Acute pain, 165, cm, 04/30/23 5:47:00 EDT, Height, 79.6, kg, 05/05/23 9:11:00 EDT, Dosing Weight Start Date: 05/06/23 Stop Date: 05/13/23 Status: Ordered polyethylene glycol 3350 [id number] mg / potassium chloride 2970 mg / sodium bicarbonate 6740 mg / sodium chloride 5860 mg / sodium sulfate 26915 mg powder for oral solution (1 source) Osmotic Laxative GaviLyte-G 236 gram-22.74 gram-6.74 gram-5.86 gram oral solution RECONSTITUTE AND DRINK DIRECTED FOR COLONOSCOPY PREP active Not Available Not Available Not Available potassium chloride 1.33 meq/ml oral solution (20 sources) Start: 12-10-19 potassium chloride 20 mEq/15 mL (10%) ORAL liquid Dose : 20 mEq = 15 mL, Oral, BID, taking 5 mL, # 946 mL, 0 Refill(s) Start Date: 12/09/24 Status: Ordered Quantity: 946.0 Unit: mL Repeat number: 1 Start: 02-24-2024 Klor-Con M20 o ral tablet, extended release Dose : 20 mEq = 1 tab(s), Oral, qDay, # 30 tab(s), 3 Refill(s), Pharmacy: [facility], 165.1, cm, 12/11/23 16:29:00 EDT, Height, kg, 12/11/23 16:29:00 EDT, Dosing Weight Start Date: 02/24/24 Status: Ordered Start: 10-09-2023 take 1 tablet by hina once daily as needed Potassium Chloride (K-Tab) 20 mEq tablet extended release Active 20 meq PO DAILY as needed for SUPPLEMENT October 09, 2023 1:00am TAKE ONE TABLET BY MOUTH ONCE DAILY ONLY IF BUMETANIDE IS TAKEN Start: 02-05-2023 potassium chlo ride ER (KLOR-CON M20) 20 mEq tablet Dose : 20 mEq = 1 tab(s), Oral, qDay, # 30 tab(s), 3 Refill(s), Pharmacy: [facility], 167.6, cm, 04/08/23 13:33:00 EDT, [...] Bumetanide, # 30 tab(s), 2 Refill(s), Pharmacy: [facility], 167, cm, 05/16/22 11:42:00 EDT, Height, kg, 05/16/22 11:42:00 EDT, Dosing Weight Start Date: 06/12/22 Status: Ordered Start: 04-12-2022 potassium chlo ride 20 mEq oral tablet, extended release Dose : 20 mEq = 1 tab(s), Oral, qDay, Take with food, # 30 tab(s), 0 Refill(s), Pharmacy: [id number], 168, cm, 04/12/22 6:12:00 EDT, [...] qDay, # 30 tab(s), 3 Refill(s), Pharmacy: [facility], 167.6, cm, 04/08/23 13:33:00 EDT, Height, kg, 04/08/23 13:33:00 EDT, Dosing Weight progesterone 200 mg oral capsule (19 sources) Progesterone progesterone micronized 200 mg capsule active Not Available Not Available Not Available propranolol hydrochloride 20 mg oral tablet (19 sources) beta-Adrenergic Wyatt Start: 12-15-19 15 take [...] (20 sources) Factor Xa Inhibitor Start: 03-14-2022 Xarelto 20 mg oral tablet Dose : 20 mg = 1 tab(s), Oral, qDay, # 90 tab(s), 3 Refill(s), Pharmacy: [facility], 165.1, cm, 05/23/24 11:32:00 EDT, Height, 81, kg, 05/23/24 11:32:00 EDT, Dosing Weight Start Date: 06/19/24 Status: Ordered Quantity: 90.0 Unit: tab(s) Repeat number: 4 Comment on above: 20 mg. tadalafil 20 mg oral tablet (20 sources) Phosphodiesterase 5 Inhibitor Start: 06-18-2024 Tadalafil (Eqv-Cialis) 20 mg oral tablet Dose : 20 mg = 1 tab(s), Oral, BID, # 180 tab(s), 3 Refill(s), Pharmacy: [facility], 165.1, cm, 05/23/24 11:32:00 EDT, Height, kg, 05/23/24 11:32:00 EDT, Dosing Weight Start Date: 06/18/24 Status: Ordered Quantity: 180.0 Unit: tab(s) Repeat number: 4 Start: 02-05-2023 Tadalafil (Eqv -Cialis) 20 mg oral tablet Dose : 20 mg = 1 tab(s), Oral, BID, # 60 tab(s), 3 Refill(s), Pharmacy: [facility], 165.1, cm, 12/11/23 16:29:00 EDT, Height, kg, 12/11/23 16:29:00 EDT, Dosing Weight Start Date: 02/24/24 Status: Ordered Start: 01-31-2023 take 2 tablets by mo [facility] once daily, then take 2 tablets by mouth once daily TADALAFIL 2 tablets, Oral, Daily, TAKE 2 TABLETS BY MOUTH EVERY DAY Start Date: 01/31/23 Status: Ordered Start: 08-22-2022 [facility] Tadalafil 20 mg tablet Active 20 mg PO TWICE A DAY October 09, 2023 1:00am Start: 05-16-2022 End: 02-14-2023 Adcirca 20 mg oral tablet Do se : 20 mg = 1 tab(s), Oral, qDay, # 30 tab(s), 5 Refill(s), Pharmacy: [facility], 167.6, cm, 07/31/22 9:04:00 EST, Height, kg, 07/31/22 9:04:00 EST, Dosing Weight Start Date: 08/03/22 Status: Ordered Comment on above: Take 20 mg by mouth once daily. vitamin b12 1 mg oral capsule (20 sources) Vitamin B12 Start: 10-09-2023 take 1 capsule by mouth once daily Cyanocobalamin (Vitamin B-12) 1,000 mcg capsule Active 1000 ug PO DAILY October 09, 2023 1:00am Start: 02-05-2023 cyanocobalamin 1000 mcg oral tablet Dose : 1,000 mcg = 1 tab(s), Oral, qDay Start Date: 02/05/23 Status: Ordered Repeat number: 1 Start: 02-05-2023 cyanocobalamin 1000 mcg oral tablet Dose : 1,000 mcg = 1 tab(s), Oral, qDay Start Date: 02/05/23 Status: Ordered Start: 03-14-2022 End: 10-09-2023 Vitamin B-12 Discontinued DA KINGS March 14, 2022 12:00am October 09, 2023 12:51pm Start: 03-14-2022 End: 10-09-2023 Vitamin B-12 Discontinued DA KINGS March 13, 2022 11:00pm October 09, 2023 11:51am Start: 03-14-2022 Vitamin B-12 A ctive DAILY March 13, 2022 11:00pm Start: 03-14-2022 Vitamin B-12 A ctive DAILY March 14, 2022 12:00am Start: 02-08-2021 take 1 dose by mouth [...] Start Date: 09/20/23 Status: Ordered Vitamin D3 1000 intl units oral tablet (20 sources) Start: 03-19-2013 Vitamin D3 100 0 intl units oral tablet Dose : 1,000 unit(s) = 1 tab(s), Oral, qDay, 0 Refill(s) Start Date: 03/19/13 Status: Ordered Repeat number: 1 Start: 03-19-2013 Vitamin D3 100 0 intl units oral tablet Dose : 1,000 unit(s) = 1 tab(s), Oral, qDay, 0 Refill(s) Start Date: 03/19/13 Status: Ordered Completed/Discontinued Medications Medication Drug Class(es) Dates Sig (Normalized) Sig (Original) acetaminophen 325 mg oral tablet (20 sources) Start: 10-09-2023 End: 10-25-2023 take 1 tablet by mouth every six hours as needed for pain Acetaminophen 325 mg tablet Discontinued 325 mg PO EVERY 6 HOURS as needed for PAIN October 09, 2023 1:00am October 25, 2023 9:03am Start: 05-06-2023 Tylenol 325 mg oral capsule Dose : 650 mg =, Oral, q4h, PRN Pain, scale 1-6, 0 Refill(s) Start Date: 05/06/23 Status: Ordered End: 08-13-2019 take 1 tablet by mouth once daily Tylenol 325 mg tablet Take 1 tablet every day by oral route. 08/13/2019 completed Not Available Not Available Not Available acetaminophen 325 mg / HYDROcodone bitartrate 5 mg oral tablet (3 sources) Opioid Agonist Start: 11-07-2023 End: 12-25-2023 Hydrocodone-Acetaminophen 5- 325 mg tablet Discontinued 1 {tbl} PO EVERY 4 HOURS NEEDED as needed for Pain 09 02November 07, 2023 December 25, 2023 3:39pm Start: 11-07-2023 End: 12-25-2023 take 1 tablet by mouth every four hours as needed Hydrocodone-Acetaminophen Discontinued 1 TABLET PO EVERY 4 HOURS NEEDED 09 02November 07, 2023 December 25, 2023 3:39pm amoxicillin 500 mg oral tablet (20 sources) Penicillin-class Antibacterial Start: 04-02-2023 End: 06-04-2023 take 1 tablet by mouth every eight hours amoxicillin 500 mg tablet Take 1 tablet every 8 hours by oral route for 7 days. 04/02/2023 06/04/2023 completed Not Available Not Available Not Available take 1 capsule by mouth four fern es daily amoxicillin 500 mg capsule TAKE 1 CAPSULE BY MOUTH 4 TIMES A DAY UNTIL GONE active Not Available Not Available Not Available Ascorbic Acid (7 sources) Vitamin C Start: 03-14-2022 End: 10-09-2023 Vitamin C Discontinued DAILY March 14, 2022 12:00am October 09, 2023 12:51pm Start: 03-14-2022 End: 10-09-2023 Vitamin C Discontinued DAILY March 13, 2022 11:00pm October 09, 2023 11:51am Start: 03-14-2022 Vitamin C Acti ve DAILY March 13, 2022 11:00pm Start: 03-14-2022 Vitamin C Acti ve DAILY March 14, 2022 12:00am azithromycin 250 mg oral tablet (18 sources) Macrolide Antimicrobial Start: 03-02-2022 End: 03-09-2022 [...] DAILY FOR 4 DAYS 04/12/2021 06/30/2021 completed bumetanide 1 mg oral tablet (20 sources) Loop Diuretic Start: 04-12-2022 End: 04-23-2024 take 1 tablet by mouth once daily as needed for edema Bumetanide 1 mg tablet Discontinued 1 mg PO DAILY as needed for EDEMA October 09, 2023 1:00am April 23, 2024 8:53am Comment on above: TAKE 1 TABLET BY HINA TH EVERY DAY NEEDED FOR SWELLINGWEIGHT GAIN cefdinir 300 mg oral capsule (1 source) Cephalosporin Antibacterial Start: 07-16-2024 End: 07-28-2024 take 1 capsule by mouth twice daily Cefdinir 300 mg capsule Discontinued 300 mg PO TWICE A DAY July 16, 2024 12:00am July 29, 2024 12:09am cephalexin 500 mg oral capsule (7 sources) Cephalosporin Antibacterial Start: 03-05-2024 End: 03-20-2024 take 1 capsule by mouth every eight hours cephalexin 500 mg capsule Take 1 capsule every 8 hours by oral route for 7 days. 03/05/2024 03/20/2024 completed Not Available Not Available Not Available colchicine 0.6 mg oral tablet (20 sources) Start: 08-08-2023 take 1 tablet by mouth twice daily at mealtime colchicine 0.6 mg tablet TAKE 1 TABLET BY MOUTH TWO TIMES EVERY DAY- TAKE WITH FOOD 0 08/08/2023 Active Start: 07-15-2023 End: 10-28-2023 take 1 tablet by mouth every twelve hours Colchicine 0.6 mg tablet Discontinued 0.6 mg PO Q12H October 09, 2023 1:00am October 28, 2023 3:05pm Start: 06-04-2023 colchicine 0.6 mg oral tablet Dose : 0.6 mg = 1 tab(s), Oral, BID, # 30 tab(s), 2 Refill(s), Pharmacy: [facility], 165.1, cm, 06/04/23 14:00:00 EDT, Height, kg, 06/04/23 14:00:00 EDT, Dosing Weight Start Date: 06/04/23 Status: Ordered Start: 05-06-2023 colchicine 0.6 mg oral tablet Dose : 0.6 mg = 1 tab(s), Oral, qDay, # 30 tab(s), 2 Refill(s), Pharmacy: [facility], 165, cm, 04/30/23 5:47:00 EDT, Height, kg, 05/05/23 9:11:00 EDT, Dosing Weight Start Date: 05/06/23 Status: Ordered End: 11-14-2023 colchicine (cardiac) AD 10/25 completed Not Available Not Available Not Available colchicine (card iac) AD active Not Available Not Available Not Available colchicine AD ac tive Comment on above: TAKE 1 TABLET BY HINA TH TWO TIMES EVERY DAY- TAKE WITH FOOD diazePAM 2 mg oral tablet (3 sources) Benzodiazepine Start: 4 End: take 1 tablet by mouth three times daily as needed for muscle spasms Diazepam (Valium) 2 mg tablet Discontinued 2 mg PO THREE TIMES A DAY as needed for muscle spasm November 07, 2023 1:00am December 25, 2023 3:39pm Digoxin (17 sources) Cardiac Glycoside Start: End: digoxin Start: 05/26/24 12:00:00 PM EDT, Dose [...] 05/24/24 Stop Date: 05/24/24 Status: Completed Start: 04-23-2024 take 1 tablet by hina th once daily Digoxin 125 mcg (0.125 mg) tablet Active 125 ug PO DAILY April 23, 2024 12:00am Start: 03-18-2024 End: 08-06-2024 digoxin 125 mcg (0.125 mg) o ral tablet Dose : 125 mcg = 1 tab(s), Oral, qDay, # 30 tab(s), 3 Refill(s), Pharmacy: [facility], 165, cm, 03/18/24 11:10:00 EDT, Height, kg, 03/18/24 11:10:00 EDT, Dosing Weight Start Date: 04/20/24 Status: Ordered End: 04-09-2024 digoxin 04/09/2024 completed Not Available Not Available Not Available digoxin active N ot Available Not Available Not Available Kenalog 40 mg/mL suspension for injection (7 sources) Start: 03-05-2024 End: 03-20-2024 Kenalog 40 mg/mL suspension for injection Take 1.5 mg by injection route. 03/05/2024 03/20/2024 completed Not Available Not Available Not Available Start: 03-05-2024 Kenalog 40 mg/ mL suspension for injection Take 1.5 mg by injection route. 03/05/2024 active Not Available Not Available Not Available Medrol (Denzel) 4 mg tablets in a dose pack (19 sources) Start: 12-10-2024 End: 05-09-2025 Medrol (Denzel) 4 mg tablets in a dose pack Take by oral route. 12/10/2024 05/09/2025 completed Not Available Not Available Not Available Start: 12-10-2024 Medrol (Denzel) 4 mg tablets in a dose pack Take by oral route. 12/10/2024 active Not Available Not Available Not Available Start: 12-20-2014 End: 10-07-2015 Medrol (Denzel) 4 mg tablets in a dose pack Take by oral route. 12/20/2014 10/07/2015 completed Not Available Not Available Not Available Start: 12-20-2014 End: 10-07-2015 Medrol (Denzel) 4 mg tablets in a dose pack Take by oral route. 12/20/2014 10/07/2015 completed metroNIDAZOLE 500 mg oral tablet (1 source) Nitroimidazole Antimicrobial Start: 07-16-2024 End: 07-28-2024 take 1 tablet by mouth three times daily Metronidazole 500 mg tablet Discontinued 500 mg PO THREE TIMES A DAY July 16, 2024 12:00am July 29, 2024 12:09am Multivitamin preparation (19 sources) End: 01-05-2016 multivitamin 1 QD 01/05/2016 completed Not Available Not Available Not Available End: 01-05-2016 multivitamin 1 QD 01/05/2016 completed ondansetron 4 mg oral tablet (8 sources) Serotonin-3 Receptor Antagonist Start: 07-21-2024 End: 08-06-2024 take 1 tablet by mouth twice daily as needed ondansetron HCl 4 mg tablet Take 1 tablet twice a day by oral route as needed for 7 days. 07/21/2024 08/06/2024 completed Not Available Not Available Not Available Start: 11-07-2023 End: 07-16-2024 take 1 tablet by mouth every eight hours as needed for nausea and vomiting Ondansetron 4 mg tablet,disintegrating Active 4 mg PO Q8H as needed for nausea and vomiting July 16, 2024 12:00am pantoprazole 40 mg delayed release oral tablet (20 sources) Proton Pump Inhibitor Start: 12-25-2023 End: 04-23-2024 take 1 tablet by mouth once daily as needed for gastroesophageal reflux disease Pantoprazole 40 mg tablet,delayed release (DR/EC) Discontinued 40 mg PO DAILY as needed for GERD December 25, 2023 12:00am April 23, 2024 8:53am Start: 10-09-2023 End: 10-28-2023 take 1 tablet by mouth once daily Pantoprazole 40 mg tablet,delayed release (DR/EC) Discontinued 40 mg PO DAILY October 09, 2023 1:00am October 28, 2023 3:04pm Start: 07-25-2023 take 1 tablet by mouth once pa ntoprazole DR (PROTONIX) 40 mg tablet Take 1 tablet by mouth every afternoon. 0 07/25/2023 Active Start: 06-04-2023 pantoprazole 4 0 mg oral enteric coated tablet Dose : 40 mg = 1 tab(s), Oral, qDay, # 30 tab(s), 1 Refill(s), Pharmacy: [facility], 165.1, cm, 06/04/23 14:00:00 EDT, Height, kg, 06/04/23 14:00:00 EDT, Dosing Weight Start Date: 06/04/23 Status: Ordered End: 11-14-2023 pantoprazole ad 11/14/2023 c ompleted Not Available Not Available Not Available pantoprazole ad active Not Available Not Available Not Available pantoprazole ad active Comment on above: Take 1 tablet by hina th every afternoon. Potassium (7 sources) Start: 03-14-2022 End: 10-09-2023 potassium Discontinued DAILY March 14, 2022 12:00am October 09, 2023 12:51pm Start: 03-14-2022 End: 10-09-2023 potassium Discontinued DAILY March 13, 2022 11:00pm October 09, 2023 11:51am Start: 03-14-2022 potassium Acti ve DAILY March 13, 2022 11:00pm Start: 03-14-2022 potassium Acti ve DAILY March 14, 2022 12:00am predniSONE 20 mg oral tablet (20 sources) Start: 03-05-2024 End: 03-20-2024 prednisone 20 mg tablet take 2 tabs x 3 days then 1 tab x 3 days 03/05/2024 03/20/2024 completed Not Available Not Available Not Available Start: 03-02-2024 End: 05-23-2024 take 1 tablet by mouth once daily Prednisone 50 mg tablet Discontinued 50 mg PO DAILY 07 02March 09, 2024 12:00am May 23, 2024 1:39am Start: 11-07-2023 End: 12-25-2023 take 1 tablet by mouth twice daily Prednisone 20 mg tablet Discontinued 20 mg PO TWICE A DAY November 07, 2023 1:00am December 25, 2023 3:40pm Start: 11-03-2021 End: 11-15-2021 predniSONE (DELTASONE) 10 [...] Not Available tiZANidine 4 mg oral tablet (9 sources) Central alpha-2 Adrenergic Agonist Start: 11-14-2023 End: 12-05-2023 take 1 tablet by mouth every six hours tizanidine 4 mg tablet Take 1 tablet every 6 hours by oral route for 5 days. 11/14/2023 12/05/2023 completed Not Available Not Available Not Available traMADol hydrochloride 50 mg oral tablet (20 sources) Opioid Agonist Start: 10-12-2023 End: 10-25-2023 take 50 mg by mouth every six hours Tramadol Discontinued 50 MG PO EVERY 6 HOURS October 12, 2023 1:00am October 25, 2023 9:03am triamcinolone acetonide 1 mg/ml topical cream (6 sources) Corticosteroid Start: 03-20-2024 End: 04-08-2024 triamcinolone acetonide 0.1 % topical cream APPLY A THIN LAYER TO THE AFFECTED AREA(S) BY TOPICAL ROUTE 2 TIMES PER DAY 03/20/2024 04/08/2024 completed Not Available Not Available Not Available Vitamin D 5,000 unit tablet (19 sources) End: 01-05-2016 Vitamin D 5,000 unit tablet Take by oral route. 01/05/2016 completed Not Available Not Available Not Available End: 01-05-2016 Vitamin D 5,000 unit tablet Take by oral route. 01/05/2016 completed Vitamin D3 (20 sources) Start: 03-14-2022 End: 10-09-2023 Vitamin D3 Discontinued LAURO Y March 14, 2022 12:00am October 09, 2023 12:51pm Start: 03-14-2022 End: 10-09-2023 Vitamin D3 Discontinued LAURO Y March 13, 2022 11:00pm October 09, 2023 11:51am Start: 03-14-2022 Vitamin D3 Act salena DAILY March 13, 2022 11:00pm Start: 03-14-2022 Vitamin D3 Act salena DAILY March 14, 2022 12:00am Vitamin D3 1000I U qd active Not Available Not Available Not Available Vitamin D3 1000I U qd active Vitamin E (20 sources) Start: 03-14-2022 End: 10-09-2023 vitamin E Discontinued DAILY March 14, 2022 12:00am October 09, 2023 12:51pm Start: 03-14-2022 End: 10-09-2023 vitamin E Discontinued DAILY March 13, 2022 11:00pm October 09, 2023 11:51am Start: 03-14-2022 vitamin E Acti ve DAILY March 13, 2022 11:00pm Start: 03-14-2022 vitamin E Acti ve DAILY March 14, 2022 12:00am Start: 02-08-2021 take 1 dose by mouth once daily vitamin E Dose : 100 Int unit =, Oral, qDay, 0 Refill(s) Start Date: 02/08/21 Status: Ordered Start: 02-08-2021 vitamin E Oral , qDay, 0 Refill(s) Start Date: 02/08/21 Status: Ordered End: 02-14-2023 vitamin E 100IU qd 3 completed Not Available Not Available Not Available End: 02-14-2023 vitamin E 100IU qd 3 completed Problems Active Problems Problem Classification Problem Date Documented Da te Episodic/Chronic Abdominal pain (9 sources) Abdominal pain; Translations: [Unspecified abdominal pain] 10-09-2023 Episodic Acute posthemorrhagic anemia (9 sources) Acute posthemorrhagic anemia; Translations: [Acute posthemorrhagic anemia] Onset: 3 Episodic Allergic reactions (20 sources) Allergic condition; Translations: [Allergy, unspecified, initial encounter] Onset: 6 Resolved: 4 02-27-2016 Episodic Comment on above: of back Anxiety disorders (20 sources) Generalized anxiety disorder; Translations: [Generalized anxiety disorder] Onset: 3 Resolved: 5 Chronic Cardiac and circulatory congenital anomalies (20 sources) Persistent ostium secundum; Translations: [Atrial septal defect] Onset: 2 07-06-2022 Chronic Cardiac dysrhythmias (20 sources) Atrial fibrillation; Translations: [Atrial fibrillation with rapid ventricular response] Onset: 9 Resolved: 5 Chronic Comment on above: new onset Conditions associated with dizziness or vertigo (3 sources) Dizziness; Translations: [Dizziness and giddiness] Onset: 2 Resolved: 2 Episodic Congestive heart failure; nonhypertensive (4 sources) Heart failure, unspecified; Translations: [Chronic diastolic heart failure] Onset: 2 Chronic Coronary atherosclerosis and other heart disease (1 source) Coronary atherosclerosis; Translations: [Atherosclerotic heart disease of [place] coronary artery without angina pectoris] Chronic Diabetes mellitus without complication (14 sources) Impaired fasting glycemia; Translations: [Impaired fasting glucose] Episodic Esophageal disorders (20 sources) Gastroesophageal reflux disease; Translations: [Gastroesophageal reflux disease without esophagitis] Onset: 3 07-14-2013 Chronic Essential hypertension (20 sources) Benign essential hypertension; Translations: [Essential (primary) hypertension] Onset: 1 Resolved: 5 Chronic Fever of unknown origin (1 source) Fever; Translations: [Fever, unspecified] 08-26-2023 Episodic Fluid and electrolyte disorders (15 sources) Dehydration; Translations: [Hypokalemia] Onset: 2 10-02-2019 Episodic Genitourinary symptoms and ill-defined conditions (20 sources) Urinary incontinence 07-14-2013 Chronic Headache; including migraine (20 sources) Migraine 07-14-2013 Chronic Hepatitis (20 sources) Nonalcoholic steatohepatitis; Translations: [Nonalcoholic steatohepatitis (ABARCA)] Onset: 3 10-02-2019 Chronic Immunizations and screening for infectious disease (17 sources) Patient encounter status; Translations: [Encounter for screening for COVID-19] Onset: 3 Resolved: 3 11-03-2021 Episodic Noninfectious gastroenteritis (4 sources) Colitis; Translations: [Noninfective gastroenteritis and colitis, unspecified] Onset: 4 Resolved: 4 Episodic Nutritional deficiencies (20 sources) Vitamin D deficiency; Translations: [Vitamin D deficiency, unspecified] Onset: 9 Resolved: 4 Chronic Osteoarthritis (7 sources) Osteoarthritis 02-06-2023 Chronic Other aftercare (6 sources) Surgical follow-up 05-20-2023 Episodic Other aftercare (1 source) Long-term current use of anticoagulant; Translations: [FCI (current) use of anticoagulants] 08-06-2024 Episodic Other and ill-defined heart disease (3 sources) Abnormality of left atrial appendage 12-11-2023 Chronic Other and unspecified benign neoplasm (1 source) History of polyp of colon; Translations: [History of colonic polyps] 04-23-2024 Episodic Comment on above: Patient is a 63-year -old female who is referred for updated surveillance colonoscopy after she has had previous endoscopy exams with polyps. She is unable to recall specifically how many exams included this finding. She does share that she was on a every 3 year surveillance regimen but fell out of this regimen due to cardiac events that took higher priority. She presently denies any changes to her bowel activity apart from noticing that they are looser after her cholecystectomy. She confirms she in no way finds this distressing. I find her abdominal exam to be benign and the request to be reasonable. I discussed with her the procedure for the colonoscopy here in [place] including the timeframe for biopsy/polypectomy result reporting. I reminded her that she would need to hold her Xarelto for 3 days prior to the procedure as well as 2 days post in the event of a biopsy. Lastly, I shared with her that she would require a tank driver the day of her procedure. As we prepare for her procedure Mrs. Angulo questions whether or not she should proceed with taking the [facility] provided [facility] or proceed with our split prep out of concern for the sodium content and precipitating cardiac arrhythmias. I have deferred this question back to her rn integrated.Addendum: Outside records were obtained following patient's visit from a scope procedure performed 12/06/2015 that showed evidence of a transverse colon adenomatous polyp finding as well as a hyperplastic polyp. And a microscopic level pathology reported findings of villous tubular architecture with a low-grade dysplasia. Other connective tissue disease (1 source) Pain of toe of left foot; Translations: [Pain in left toe(s)] 02-19-2023 Episodic Other endocrine disorders (7 sources) Hereditary disorder of endocrine system 02-06-2023 Episodic Other gastrointestinal disorders (14 sources) Diarrhea 10-02-2019 Episodic Comment on above: acute Other injuries and conditions due to external causes (1 source) Injury of toe of left foot; Translations: [Unspecified injury of left foot, initial encounter] 02-19-2023 Episodic Other liver diseases (11 sources) Cirrhosis of liver; Translations: [Unspecified cirrhosis of liver] Onset: 6 Resolved: 2 Chronic Other liver diseases (20 sources) 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 Other liver diseases (1 source) Unspecified cirrhosis of liver; Translations: [Cirrhosis of liver without mention of alcohol] 10-12-2023 Chronic Other liver diseases (5 sources) Fatty (change of) liver, not elsewhere classified; Translations: [Nonalcoholic fatty liver disease] 10-28-2023 Chronic Other liver diseases (16 sources) Elevated liver enzymes level; Translations: [Elevation of levels of liver transaminase levels] Onset: 3 Resolved: 4 Episodic Other liver diseases (4 sources) Abnormal levels of other serum enzymes; Translations: [Other nonspecific abnormal serum enzyme levels] 10-09-2023 Episodic Other screening for suspected conditions (not mental disorders or infectious disease) (1 source) Abnormal result of other cardiovascular function study; Translations: [Abnormal result of other cardiovascular function study] Onset: 5 Episodic Rose-; endo-; and myocarditis; cardiomyopathy (except that caused by tuberculosis or sexually transmitted disease) (6 sources) Acute pericarditis; Translations: [Acute pericarditis, unspecified] Onset: 3 Resolved: 3 Episodic Pulmonary heart disease (20 sources) Pulmonary hypertension, unspecified; Translations: [Pulmonary hypertension] Onset: 2 Resolved: 5 Chronic Residual codes; unclassified (5 sources) Sleep apnea; Translations: [Sleep apnea, unspecified] Onset: 1 Resolved: 1 Chronic Comment on above: wears cpap Residual codes; unclassified (20 sources) Obstructive sleep apnea syndrome; Translations: [Obstructive sleep apnea (adult) (pediatric)] Onset: 1 Resolved: 5 02-08-2021 Chronic Residual codes; unclassified (3 sources) Sleep apnea, unspecified; Translations: [Unspecified sleep apnea] 10-12-2023 Chronic Residual codes; unclassified (1 source) Pain; Translations: [Pain, unspecified] Onset: 3 Episodic Residual codes; unclassified (4 sources) Past history of procedure; Translations: [Other specified postprocedural states] 10-12-2023 Episodic Residual codes; unclassified (3 sources) Other specified postprocedural states; Translations: [Other postprocedural status] 10-12-2023 Episodic Residual codes; unclassified (7 sources) Acquired absence of other specified parts of digestive tract; Translations: [Other postprocedural status] 10-12-2023 Episodic Syncope (20 sources) Near syncope 10-02-2019 Episodic Unclassified (20 sources) Influenza vaccination declined 10-02-2019 Comment on above: 2017 Unclassified (20 sources) Vaccine refused by parent 10-02-2019 Comment on above: 2018 Unclassified (1 source) R05.9 - Cough, unspecified; Translations: [R05.9 - Cough, unspecified] Onset: 2 Viral infection (9 sources) Disease caused by 2019-nCoV; Translations: [COVID-19] 11-03-2021 Episodic Viral infection (19 sources) Disease caused by 2019-nCoV; Translations: [COVID-19] Onset: 2 Resolved: 2 Past or Other Problems Problem Classification Problem Date Documented Da te Episodic/Chronic Biliary tract disease (20 sources) Common bile duct calculus; Translations: [Calculus of bile duct without cholangitis or cholecystitis without obstruction] Onset: 10-17-2023 Resolved: 10-17-2023 10-09-2023 Episodic Cardiac dysrhythmias (20 sources) Tachycardia; Translations: [Palpitations] Onset: 06-14-2024 Resolved: 02-09-2019 Episodic Nausea and vomiting (1 source) Nausea with vomiting, unspecified; Translations: [Nausea with vomiting, unspecified] Onset: 08-05-2024 Episodic Nonspecific chest pain (20 sources) Chest pain; Translations: [Chest pain, unspecified] Onset: 04-30-2018 10-02-2019 Episodic Other and unspecified benign neoplasm (20 sources) Polyp of colon; Translations: [Polyp of colon] Onset: 12-06-2015 Resolved: 04-09-2024 Episodic Other bone disease and musculoskeletal deformities (1 source) Costal chondritis; Translations: [Chondrocostal junction syndrome [Tietze]] Onset: 12-10-2024 Resolved: 12-10-2024 Episodic Other circulatory disease (1 source) Elevated blood-pressure reading without diagnosis of hypertension Onset: 02-16-2021 Resolved: 02-16-2021 Episodic Other connective tissue disease (19 sources) Plantar fasciitis Resolved: 02-16-2021 Episodic Other connective tissue disease (19 sources) Muscle pain Resolved: 06-04-2018 Episodic Other connective tissue disease (19 sources) Pain in upper limb Resolved: 02-21-2016 Episodic Other connective tissue disease (1 source) Pain in left toe(s); Translations: [Pain of toe of left foot] Onset: 02-19-2023 Episodic Other hereditary and degenerative nervous system conditions (19 sources) Essential tremor Resolved: 02-16-2021 Chronic Other inflammatory condition of skin (1 source) Pruritic rash Onset: 03-09-2022 Resolved: 03-09-2022 Episodic Other injuries and conditions due to external causes (1 source) Unspecified injury of left foot, initial encounter; Translations: [Toe injury, left, initial encounter] Onset: 02-19-2023 Episodic Other lower respiratory disease (19 sources) Dyspnea Resolved: 02-21-2016 Episodic Other lower respiratory disease (20 sources) Cough; Translations: [Cough] Resolved: 02-21-2016 11-03-2021 Episodic Other nervous system disorders (19 sources) Skin sensation disturbance Resolved: 07-13-2013 Episodic Other nervous system disorders (19 sources) Numbness of foot Resolved: 02-21-2016 Episodic Other nervous system disorders (19 sources) Numbness of hand Resolved: 02-21-2016 Episodic Other non-traumatic joint disorders (3 sources) Multiple joint pain Onset: 02-15-2022 Resolved: 02-15-2022 Episodic Other nutritional; endocrine; and metabolic disorders (19 sources) Abnormal weight gain Resolved: 06-04-2018 Episodic Other nutritional; endocrine; and metabolic disorders (14 sources) H/O: hyperthyroidism; Translations: [Personal history of other endocrine, nutritional and metabolic disease] Onset: 02-14-2023 Resolved: 04-09-2024 Episodic Other nutritional; endocrine; and metabolic disorders (1 source) Overweight; Translations: [Overweight] Onset: 04-09-2024 Resolved: 04-09-2024 Episodic Other nutritional; endocrine; and metabolic disorders (1 source) Body mass index 25-29 - overweight; Translations: [Overweight] Onset: 05-20-2025 Resolved: 05-20-2025 Episodic Other skin disorders (19 sources) O/E - a rash Resolved: 07-13-2013 Episodic Other skin disorders (5 sources) Eruption; Translations: [Rash and other nonspecific skin eruption] Onset: 02-15-2022 Resolved: 03-20-2024 Episodic Other skin disorders (1 source) Rash and other nonspecific skin eruption; Translations: [Rash and other nonspecific skin eruption] Onset: 04-03-2024 Episodic Pneumonia (except that caused by tuberculosis or sexually transmitted disease) (20 sources) Community acquired pneumonia; Translations: [Pneumonia] Onset: 11-13-2021 Resolved: 03-09-2022 Episodic Residual codes; unclassified (17 sources) History of repair of atrial septal defect; Translations: [Other specified postprocedural states] Onset: 08-23-2022 Resolved: 04-09-2024 Episodic Residual codes; unclassified (1 source) Medication refused; Translations: [Immunization not carried out because of patient refusal] Onset: 05-20-2025 Resolved: 05-20-2025 Episodic Skin and subcutaneous tissue infections (2 sources) Cellulitis of face; Translations: [Cellulitis of face] Onset: 03-05-2024 Resolved: 03-05-2024 Episodic Spondylosis; intervertebral disc disorders; other back problems (20 sources) Degeneration of lumbar intervertebral disc; Translations: [Cervical disc disorder] Onset: 10-24-2013 Resolved: 02-21-2016 Chronic Spondylosis; intervertebral disc disorders; other back problems (20 sources) Disorder of back; Translations: [Backache] Onset: 11-14-2023 Resolved: 12-05-2023 07-14-2013 Episodic Thyroid disorders (20 sources) Goiter; Translations: [Hyperthyroidism] Onset: 02-16-2021 Resolved: 02-16-2021 Chronic Unclassified (2 sources) Suspected disease caused by 2019-nCoV Onset: 03-02-2022 Resolved: 03-02-2022 Results Test Name Value Interpretation Reference Range Facility .Auto Diffon 01-11-2025 Basophil, Absolute 0.1 10 3/mcL Normal 0.0-0.3 [facility] Comment on above: Performed By: #### G FR, ANEU, PRO, BMP, CBC, ADIFF #### [address] [address] Basophils/100 WBC (Bld) 0.8 % Normal 0.0-2.5 [facility] Comment on above: Performed By: #### G FR, ANEU, PRO, BMP, CBC, ADIFF #### [address] [place], [place] [address] Eosinophil, Absolute 0.2 10 3/mcL Normal 0.0-0.7 [facility] Comment on above: Performed By: #### G FR, ANEU, PRO, BMP, CBC, ADIFF #### [address] [address] Eosinophils/100 WBC (Bld) 2.9 % Normal 0.0-6.0 [facility] Comment on above: Performed By: #### G FR, ANEU, PRO, BMP, CBC, ADIFF #### [address] [address] Lymphocyte, Absolute 1.7 10 3/mcL Normal 0.9-4.3 [facility] Comment on above: Performed By: #### G FR, ANEU, PRO, BMP, CBC, ADIFF #### [address] [address] Lymphocytes/100 WBC (Bld) 27.1 % Normal 20.0-40.0 [facility] Comment on above: Performed By: #### G FR, ANEU, PRO, BMP, CBC, ADIFF #### [address] [address] Monocyte, Absolute 0.4 10 3/mcL Normal 0.1-1.4 [facility] Comment on above: Performed By: #### G FR, ANEU, PRO, BMP, CBC, ADIFF #### [address] [address] Monocytes/100 WBC (Bld) 7.3 % Normal 2.0-13.0 [facility] Comment on above: Performed By: #### G FR, ANEU, PRO, BMP, CBC, ADIFF #### [address] [address] Neutrophils/100 WBC (Bld) 61.9 % Normal 50.0-75.0 [facility] Comment on above: Performed By: #### G FR, ANEU, PRO, BMP, CBC, ADIFF #### [address] [address] .GFRon 01-11-2025 Estimated Glomerular Filtration Rate 78 ml/min/1.73sqm Normal [facility] Comment on above: Result Comment: Stages of Chronic Kidney Disease (CKD) Stage Description eGFR(ml/min/1.73 sq.m.) CKD 1 Normal kidney function or >=90 normal kindney function with possible kidney damage (ex. Proteinuria) CKD 2 Kidney damage with mild loss 60-89 of kidney function CKD 3a Mild to moderate loss of kidney 45-59 function CKD 3b Moderate to severe loss of 30-44 of kindey function CKD 4 Severe loss of kidney function 15-29 CKD 5 Kidney failure <15 Note: (go live 2024) the eGFR calculation was updated to the 2020 CKD-EPI creatinine equation without a race factor to calculate the eGFR results. Performed By: #### G FR, ANEU, PRO, BMP, CBC, ADIFF #### [address] [address] .NEUABSon 01-11-2025 Neutrophil, Absolute 3.8 10 3/mcL Normal 2.3-8.1 [facility] Comment on above: Performed By: #### G FR, ANEU, PRO, BMP, CBC, ADIFF #### [address] [address] BMPon 01-11-2025 BUN/Creatinine Ratio 15 ratio Normal 7-27 [facility] Comment on above: Order Comment: 2-3 d ays before LHC Performed By: #### G FR, ANEU, PRO, BMP, CBC, ADIFF #### [address] [address] Calcium [Mass/Vol] 9.1 mg/dL Normal 8.4-10.2 [facility] Comment on above: Order Comment: 2-3 d ays before LHC Performed By: #### G FR, ANEU, PRO, BMP, CBC, ADIFF #### [address] [address] Chloride [Moles/Vol] 104 mmol/L Normal 98-107 [facility] Comment on above: Order Comment: 2-3 d ays before LHC Performed By: #### G FR, ANEU, PRO, BMP, CBC, ADIFF #### [address] [address] CO2 [Moles/Vol] 32 mmol/L High 23-31 [facility] Comment on above: Order Comment: 2-3 d ays before LHC Performed By: #### G FR, ANEU, PRO, BMP, CBC, ADIFF #### [address] [address] Creatinine [Mass/Vol] 0.84 mg/dL Normal 0.55-1.02 [facility] Comment on above: Order Comment: 2-3 d ays before LHC Result Comment: Test ing performed on Siemens Dimension EXL analyzer using a modified kinetic Christina technique. Performed By: #### G FR, ANEU, PRO, BMP, CBC, ADIFF #### [address] [address] Electrolyte Balance 6.0 mEq/L Normal 4.0-15.0 [facility] Comment on above: Order Comment: 2-3 d ays before LHC Performed By: #### G FR, ANEU, PRO, BMP, CBC, ADIFF #### [address] [address] Glucose [Mass/Vol] 85 mg/dL Normal 80-115 [facility] Comment on above: Order Comment: 2-3 d ays before LHC Performed By: #### G FR, ANEU, PRO, BMP, CBC, ADIFF #### [address] [address] Potassium [Moles/Vol] 4.3 mmol/L Normal 3.5-5.1 [facility] Comment on above: Order Comment: 2-3 d ays before LHC Performed By: #### G FR, ANEU, PRO, BMP, CBC, ADIFF #### [address] [address] Sodium [Moles/Vol] 142 mmol/L Normal 136-145 [facility] Comment on above: Order Comment: 2-3 d ays before LHC Performed By: #### G FR, ANEU, PRO, BMP, CBC, ADIFF #### [address] [address] Urea nitrogen [Mass/Vol] 13 mg/dL Normal 7-18 [facility] Comment on above: Order Comment: 2-3 d ays before LHC Performed By: #### G FR, ANEU, PRO, BMP, CBC, ADIFF #### [address] [address] CBCon 01-11-2025 Erythrocyte distribution width (RBC) [Ratio] 15.4 % Normal 11.5-15.5 [facility] Comment on above: Order Comment: 2-3 d ays before LHC Performed By: #### G FR, ANEU, PRO, BMP, CBC, ADIFF #### [address] [address] Hematocrit (Bld) [Volume fraction] 40.4 % Normal 34.0-46.0 [facility] Comment on above: Order Comment: 2-3 d ays before LHC Performed By: #### G FR, ANEU, PRO, BMP, CBC, ADIFF #### [place] [address] Hgb 14.0 G/dL Normal 12.0-16.0 [facility] Comment on above: Order Comment: 2-3 d ays before LHC Performed By: #### G FR, ANEU, PRO, BMP, CBC, ADIFF #### [address] [address] MCH (RBC) [Entitic mass] 30.7 pg Normal 27.0-33.0 [facility] Comment on above: Order Comment: 2-3 d ays before LHC Performed By: #### G FR, ANEU, PRO, BMP, CBC, ADIFF #### [address] [address] MCHC 34.6 G/dL Normal 32.0-36.0 [facility] Comment on above: Order Comment: 2-3 d ays before LHC Performed By: #### G FR, ANEU, PRO, BMP, CBC, ADIFF #### [address] [address] MCV (RBC) [Entitic vol] 88.7 fL Normal 80.0-99.0 [facility] Comment on above: Order Comment: 2-3 d ays before LHC Performed By: #### G FR, ANEU, PRO, BMP, CBC, ADIFF #### [address] [address] Platelet 187 10 3/mcL Normal 150-450 [facility] Comment on above: Order Comment: 2-3 d ays before LHC Performed By: #### G FR, ANEU, PRO, BMP, CBC, ADIFF #### [address] [address] Platelet mean volume (Bld) [Entitic vol] 8.4 fL Normal 6.6-10.5 [facility] Comment on above: Order Comment: 2-3 d ays before LHC Performed By: #### G FR, ANEU, PRO, BMP, CBC, ADIFF #### [address] [address] RBC 4.55 10 6/mcL Normal 4.10-5.30 [facility] Comment on above: Order Comment: 2-3 d ays before LHC Performed By: #### G FR, ANEU, PRO, BMP, CBC, ADIFF #### [address] [address] WBC 6.1 10 3/mcL Normal 4.5-10.8 [facility] Comment on above: Order Comment: 2-3 d ays before LHC Performed By: #### G FR, ANEU, PRO, BMP, CBC, ADIFF #### [address] [address] PROon 01-11-2025 PT Coag (PPP) [Time] 14.1 s Normal 9.0-14.4 [facility] Comment on above: Order Comment: 2-3 d ays before LHC Performed By: #### G FR, ANEU, PRO, BMP, CBC, ADIFF #### [address] [address] PT International Ratio 1.2 Normal [facility] Comment on above: Order Comment: 2-3 d ays before LHC Result Comment: The [employer] (CHEST, 1992, 102:312S-25S) recommended therapeutic range for oral anticoagulant therapy is: LOW RISK: Prophylaxis of venous thrombosis INR: 2.0-3.0 Treatment of pulmonary embolism 2.0-3.0 Prevention of systemic embolism 2.0-3.0 HIGH RISK: Mechanical prosthetic valves 2.5-3.5 Performed By: #### G FR, ANEU, PRO, BMP, CBC, ADIFF #### [facility] [address] [place], [place] [address] NM MYOCARDIAL SPECT STRESS/R ESTon 12-23-2024 NM MYOCARDIAL SPECT STRESS/REST ORIGINAL NM MYOCARDIAL SPECT STRESS/REST CLINICAL STATEMENT:chest pain TECHNIQUE: Stress Protocol:Trever Time Exercised:3 minutes 10 seconds Predicted Max HR:157 beats per minute Max HR Achieved:160 beats per minute. Percent Max HR:101 Peak Systolic BP:180 mmHg Rate-Pressure product: 21,900 Radiopharmaceutical(re st): Tc-99m Sestamibi IV Dose:10.7 mCi Radiopharmaceutical(st ress): Tc-99m Sestamibi IV Dose:32.1 mCi SPECT acquisition:SPECT reconstruction and reorientation into short axis, vertical and horizontal long axis planes Quantitative LVEF assessment COMPARISON:None REPORT:The LEFT ventricle is normal in size. On gated imaging the ejection fraction is normal at greater than 70% with normal wall motion. On stress images there is a decrease in the uptake of activity in the anterior on rest images. There otherwise is relatively homogenous uptake of activity in other areas of the myocardium. And anteroseptal wall. There is improved uptake in the anterior wall IMPRESSION: 1. Reversible defect in the anterior wall suggestive of ischemia in this area. The associated breast tissue attenuation artifact does diminish the specificity of these findings for ischemia. 2. Normal ejection fraction of greater than 70% with normal wall motion. 3. Breast tissue attenuation artifact. Interpreted By: Yury Phillips MD Preliminary Report By: Yury Phillips MD Electronically Signed By: Yury Phillips MD Dictated Date: 12/23/2024 12:10:28 PM Prelim Date: 12/23/2024 12:10:28 PM Sign Date: 12/23/2024 12:14:54 PM Ordering Provider:Hank Alberto [facility] 12 Lead EKGon 03-19-2025 12 Lead EKG [facility] [address] [place] [address] 12 Lead EKG 12/09/24 1333 MR#: [id number] Acct: [id number] Name: YUE ANGULO Rep #: [id number] : 1960 64 From: Buster Light MD Attending Dr: Status: DEP ER Ordering Dr: Gamal Simons DO Date: 12/09/24 Location: ED Sex: F C Admitted: Test Reason : CP Blood Pressure : */* mmHG Vent. Rate : 59 BPM Atrial Rate : 59 BPM P-R Int : 210 ms QRS Dur : 70 ms QT Int : 460 ms P-R-T Axes : 9 82 42 degrees QTcB Int : 455 ms Sinus bradycardia with 1st degree A-V block Low voltage QRS Borderline ECG When compared with ECG of 09-Dec-2024 08:56, MANUAL COMPARISON REQUIRED DATA IS UNCONFIRMED Confirmed by RODY CURRAN, BUSTER ([id number]), science editor ROBIN ROLAND ([id number]) on 12/14/2024 7:34:52 AM Referred By: Lyn Ha Confirmed By: BUSTER LIGHT MD 12/14/24 0734 Date Buster Light MD CC: Lyn Ha MD; Dr. Lina Zendejas MD; Dr. Gamal Simons, DO Signed Normal [facility] 12 Lead EKG [facility] [address] [place] [address] 12 Lead EKG 12/09/24 0856 MR#: [id number] Acct: [id number] Name: YUE ANGULO Rep #: [id number] : 1960 64 From: Buster Light MD Attending Dr: Status: DEP ER Ordering Dr: Gamal Simons DO Date: 12/09/24 Location: ED Sex: F C Admitted: Test Reason : CP Blood Pressure : */* mmHG Vent. Rate : 113 BPM Atrial Rate : 300 BPM P-R Int : * ms QRS Dur : 76 ms QT Int : 340 ms P-R-T Axes : 116 78 -27 degrees QTcB Int : 466 ms Atrial flutter with variable A-V block Nonspecific ST abnormality Abnormal ECG When compared with ECG of 28-Jul-2024 23:12, T wave inversion more evident in Inferior leads Confirmed by RODY CURRAN, BUSTER ([id number]), science editor ROBIN ROLAND ([id number]) on 12/14/2024 8:14:06 AM Referred By: Lyn Ha Confirmed By: BUSTER LIGHT MD 12/14/24813 Date Buster Light MD CC: Lyn Ha MD; Dr. Lina Zendejas MD; Dr. Gamal Simons, DO Signed Normal [facility] Absolute neutrophil countOrd ered By: Gamal Simons on 12-09-2024 Neutrophils (Bld) [#/Vol] 3.6 10*3/uL 2.0-7.7 [facility] Anion gap in Serum or Plasma Ordered By: Gamal Simons on 12-09-2024 Anion gap [Moles/Vol] 12 mmol/L 02-04 [facility] BUN/creatinine ratioOrdered By: Gamal Simons on 12-09-2024 Urea nitrogen/Creatinine [Mass ratio] 16.9 mg/mg 07-12 [facility] Basic Metabolic Profile (BMP )on 12-09-2024 BUN/CRE 16.9 RATIO Normal 07-12 [facility] Comment on above: Performed By: #### L 501.4021, L300.4310, L500.2500, L100.0100, L300.3900, L503.7505 #### [facility] [address] [place], [place], [address] Calcium [Mass/Vol] 9.6 mg/dL Normal 7.6-11.0 [facility] Comment on above: Performed By: #### L 501.4021, L300.4310, L500.2500, L100.0100, L300.3900, L503.7505 #### [facility] [address] [place], [address] Chloride [Moles/Vol] 104 mmol/L Normal 98-108 [facility] Comment on above: Performed By: #### L 501.4021, L300.4310, L500.2500, L100.0100, L300.3900, L503.7505 #### [facility] [address] [place], [address] CO2 [Moles/Vol] 22.7 mmol/L Normal 21.0-32.0 [facility] Comment on above: Performed By: #### L 501.4021, L300.4310, L500.2500, L100.0100, L300.3900, L503.7505 #### [facility] [address] [place], [address] Creatinine [Mass/Vol] 0.80 mg/dL Normal 0.70-1.20 [facility] Comment on above: Performed By: #### L 501.4021, L300.4310, L500.2500, L100.0100, L300.3900, L503.7505 #### [facility] [address] [place], [address] GAP 12 Normal 5-15 [facility] Comment on above: Performed By: #### L 501.4021, L300.4310, L500.2500, L100.0100, L300.3900, L503.7505 #### [facility] [address] [place], [address] GFR/1.73 sq M.predicted among non-blacks MDRD (S/P/Bld) [Vol rate/Area] 83 mL/min/{1.73_m2} Normal >60 [facility] Comment on above: Result Comment: mL/m in/1.73m2 CKD-EPI Creatinine Equation (2020) Performed By: #### L 501.4021, L300.4310, L500.2500, L100.0100, L300.3900, L503.7505 #### [facility] [address] [place], [address] Glucose [Mass/Vol] 109 mg/dL High 70-99 [facility] Comment on above: Performed By: #### L 501.4021, L300.4310, L500.2500, L100.0100, L300.3900, L503.7505 #### [facility] [address] [place], [address] Potassium [Moles/Vol] 4.1 mmol/L Normal 3.3-5.1 [facility] Comment on above: Result Comment: Hemo lysis present, Results??could be affected. ?? Performed By: #### L 501.4021, L300.4310, L500.2500, L100.0100, L300.3900, L503.7505 #### [facility] [address] [place], [address] Sodium [Moles/Vol] 139 mmol/L Normal 133-145 [facility] Comment on above: Performed By: #### L 501.4021, L300.4310, L500.2500, L100.0100, L300.3900, L503.7505 #### [facility] [address] [place], [address] Urea nitrogen [Mass/Vol] 14 mg/dL Normal 4-19 [facility] Comment on above: Performed By: #### L 501.4021, L300.4310, L500.2500, L100.0100, L300.3900, L503.7505 #### [facility] [address] [place], [address] Basophil percentageOrdered B y: Gamal Simons on 12-09-2024 Basophils/100 WBC (Bld) 0.5 % 0-1 [facility] CBC W/Diff, Automatedon 11-21 Absolute Lymph 1.58 X10 3/uL Normal 0.83-4.51 [facility] Comment on above: Performed By: #### L 501.4021, L300.4310, L500.2500, L100.0100, L300.3900, L503.7505 #### [facility] [address] [place], [address] Absolute Neut 3.6 X10 3/uL Normal 2.0-7.7 [facility] Comment on above: Performed By: #### L 501.4021, L300.4310, L500.2500, L100.0100, L300.3900, L503.7505 #### [facility] [address] [place], [address] Basophils/100 WBC (Bld) 0.5 % Normal 0-1 [facility] Comment on above: Performed By: #### L 501.4021, L300.4310, L500.2500, L100.0100, L300.3900, L503.7505 #### [facility] [address] [place], [address] Eosinophils/100 WBC (Bld) 2.7 % Normal 0-5 [facility] Comment on above: Performed By: #### L 501.4021, L300.4310, L500.2500, L100.0100, L300.3900, L503.7505 #### [facility] [address] [place], [address] Erythrocyte distribution width (RBC) [Ratio] 13.8 % Normal 11.6-14.6 [facility] Comment on above: Performed By: #### L 501.4021, L300.4310, L500.2500, L100.0100, L300.3900, L503.7505 #### [facility] [address] [place], [address] Hematocrit (Bld) [Volume fraction] 40.0 % Normal 37-47 [facility] Comment on above: Performed By: #### L 501.4021, L300.4310, L500.2500, L100.0100, L300.3900, L503.7505 #### [facility] [address] [place], [address] Hemoglobin (Bld) [Mass/Vol] 14.2 g/dL Normal 12.0-15.0 [facility] Comment on above: Performed By: #### L 501.4021, L300.4310, L500.2500, L100.0100, L300.3900, L503.7505 #### [facility] [address] [place], [address] IG% 0.500 Normal 0.0-0.9 [facility] Comment on above: Result Comment: IG% - Immature Granulocytes (promyelocytes, myelocytes and metamyelocytes) > 1% indicates that a LEFT SHIFT is Present. Performed By: #### L 501.4021, L300.4310, L500.2500, L100.0100, L300.3900, L503.7505 #### [facility] [address] [place], [address] Lymphocytes/100 WBC (Bld) 27.1 % Normal 19-41 [facility] Comment on above: Performed By: #### L 501.4021, L300.4310, L500.2500, L100.0100, L300.3900, L503.7505 #### [facility] [address] [place], [address] MCH (RBC) [Entitic mass] 30.7 pg Normal 27.0-32.0 [facility] Comment on above: Performed By: #### L 501.4021, L300.4310, L500.2500, L100.0100, L300.3900, L503.7505 #### [facility] [address] [place], [address] MCHC (RBC) [Mass/Vol] 35.5 g/dL Normal 32-36 [facility] Comment on above: Performed By: #### L 501.4021, L300.4310, L500.2500, L100.0100, L300.3900, L503.7505 #### [facility] [address] [place], [address] MCV (RBC) [Entitic vol] 86.4 fL Normal 81-99 [facility] Comment on above: Performed By: #### L 501.4021, L300.4310, L500.2500, L100.0100, L300.3900, L503.7505 #### [facility] [address] [place], [address] Monocytes/100 WBC (Bld) 7.2 % Normal 0-10 [facility] Comment on above: Performed By: #### L 501.4021, L300.4310, L500.2500, L100.0100, L300.3900, L503.7505 #### [facility] [address] [place], [address] Neutrophils/100 WBC (Bld) 62.0 % Normal 47-70 [facility] Comment on above: Performed By: #### L 501.4021, L300.4310, L500.2500, L100.0100, L300.3900, L503.7505 #### [facility] [address] [place], [address] Nucleated RBC (Bld) [#/Vol] 0 10*3/uL Normal 0-5 [facility] Comment on above: Performed By: #### L 501.4021, L300.4310, L500.2500, L100.0100, L300.3900, L503.7505 #### [facility] [address] [place], [address] Platelet mean volume (Bld) [Entitic vol] 10.1 fL Normal 6.2-12.0 [facility] Comment on above: Performed By: #### L 501.4021, L300.4310, L500.2500, L100.0100, L300.3900, L503.7505 #### [facility] [address] [place], [address] Platelets (Bld) [#/Vol] 167 10*3/uL Normal 150-450 [facility] Comment on above: Performed By: #### L 501.4021, L300.4310, L500.2500, L100.0100, L300.3900, L503.7505 #### [facility] [address] [place], [address] RBC (Bld) [#/Vol] 4.63 10*6/uL Normal 4.2-5.4 [facility] Comment on above: Performed By: #### L 501.4021, L300.4310, L500.2500, L100.0100, L300.3900, L503.7505 #### [facility] [address] [place], [address] RDW SD 42.1 fl Normal 35.1-43.9 [facility] Comment on above: Performed By: #### L 501.4021, L300.4310, L500.2500, L100.0100, L300.3900, L503.7505 #### [facility] [address] [place], [address] WBC (Bld) [#/Vol] 5.8 10*3/uL Normal 4.4-11.0 [facility] Comment on above: Performed By: #### L 501.4021, L300.4310, L500.2500, L100.0100, L300.3900, L503.7505 #### [facility] [address] [place], [address] Carbon dioxide, total [Moles /volume] in Central venous bloodOrdered By: Gamal Simons on 12-09-2024 CO2 [Moles/Vol] 22.7 mmol/L 21.0-32.0 [facility] Chest PA and Lateralon 12-09 Chest PA and Lateral [facility] Imaging Services [address] [place] [address] Chest PA and Lateral MR#: [id number] Acct: [id number] Name: YUE ANGULO Rep #: [id number] : 1960 F 64 From: Jared curtis MD PCP: Dr. Lina Zendejas MD Status: PRE ER Study: Chest PA and Lateral Date of Exam: 12/09/24 Exam# [id number] Ordering Dr: Gamal Simons DO PROCEDURE: CHEST PA AND LATERAL 12/09/2024 REASON FOR EXAM: CHEST PAIN TECHNIQUE: Frontal and lateral views of the chest. COMPARISON: Comparison is made with prior study dated July 28, 2024. FINDINGS: EKG electrodes are seen. A clip is seen overlying the left atrial appendage. The mediastinal contour is unremarkable. No acute abnormality is seen. RAD/Chest PA and Lateral IMPRESSION: No acute abnormality is seen. Reading Location: [facility]- CC: Dr. Lina Zendejas MD; Dr. Gamal Simons DO Paper Pattern Folder: Signed Normal [facility] Chloride assayOrdered By: Tiago Simons on 12-09-2024 Chloride [Moles/Vol] 104 mmol/L 98-108 [facility] Emergency Department Summary on 12-09-2024 Emergency Department Summary [facility] Medical Records Department [address] [place] [address] Emergency Department Summary 12/09/24 MR#: [id number] Acct: [id number] Name: YUE ANGULO Rep #: [id number] : 1960 64 From: Gamal Simons DO PCP: Dr. Lina Zendejas MD Status:REG ER Location: ED HPI History of Present Illness Chief Complaint: Chest Pain Narrative Narrative: Patient is a 64-year-old female with past medical history of atrial fibrillation/atrial flutter on Eliquis, pulmonary hypertension, FARSHAD, CHF, anxiety, IBS, GERD who presented to the emergency department the chief complaint of chest pain. Patient states that she has had chest pain on and off since the middle of October. States that she was supposed to see a rn integrated at 3:15 PM this afternoon at [facility] with Dr. Mcmullen. She states that she also follows with the heart failure specialist there as well as the car pick up driver there. She states that she has had a partial ablation in the past as she had not been able to undergo the full procedure secondary to a repaired ASD. Patient states that the pain woke her up out of the a sleep this morning around 7 AM. States that she took her metoprolol and noted that she felt like she wanted to atrial fibrillation. States that she had worsening pain therefore she came here for the valuation management. Patient states that her pain does not radiate where. Patient states that she is not currently on digoxin nor Cardizem she states that her car pick up driver was trying to for medications to control her rate in the past therefore these medications are in her chart. Patient denies any sick contacts otherwise feels well. Patient states that she has been compliant with her Xarelto not missing doses [facility] Medical History Wears glasses Depression Anxiety Arthritis Fatty liver Easy bruising Restless legs Migraine headache History of IBS GERD (gastroesophageal reflux disease) CPAP (continuous positive airway pressure) dependence Chronic cough Shortness of breath on exertion Non-smoker History of echocardiogram History of stress test Hypertension Cardiology follow-up encounter History of atrial fibrillation A-fib Pulmonary HTN Sleep apnea Home Medications ???Medication ???Instructions ???Recorded ???Last Taken ???Type rivaroxaban 20 mg tablet (Xarelto) 20 mg PO QPM BLOOD THINNER 03/1412/25/23 History buspirone 5 mg tablet 5 mg PO TID PRN ANXIETY 10/09/23 0 12/29/23 History cholecalciferol (vitamin D3) 25 25 mcg PO DAILY SUPPLEMENT 4 07/28/24 History mcg (1,000 unit) tablet (Vitamin D3) cyanocobalamin (vitamin B-12) 1,000 mcg PO DAILY SUPPLEMENT 09/2307/27/24 History 1,000 mcg capsule dofetilide 500 mcg capsule 500 mcg PO BID AFIB 10/09/2312/28 History (Tikosyn) magnesium 250 mg tablet 250 mg PO BID SUPPLEMENT 10/09/23 12/29/23 History potassium chloride 20 mEq 20 meq PO DAILY PRN SUPPLEMENT 12/27/23 History tablet,extended release (K-Tab) tadalafil 20 mg tablet 20 mg PO BID LUNGS 10/09/23 History digoxin 125 mcg (0.125 mg) tablet 125 mcg PO DAILY 04/23/24 4 History aspirin 81 mg chewable tablet 1 tab PO DAILY 07/16/24 07/26/24 H istory diltiazem HCl 30 mg tablet 30 mg PO Q6H PRN afib 07/16/2402/13 History (Cardizem) ondansetron 4 mg disintegrating 4 mg PO Q8H PRN nausea and 4 Unknown Rx tablet vomiting #12 tabs Allergy/AdvReac Type Severity Reaction Status Date / Time codeine Allergy Other Verified 07/28/24 23:00 ibuprofen (From Motrin) Allergy Hives Verified 07/28/24 23:00 Iodinated Contrast Media (CT) Allergy Chest Verified 07/28/24 23:00 tightness morphine Allergy Hives Verified 07/28/24 23:00 phenytoin sodium (From Allergy Other Verified 07/28/24 23:00 Dilantin) phenytoin sodium extended Allergy Other Verified 07/28/24 23:00 (From Dilantin) sulfamethoxazole (From Allergy Hives Verified 07/28/24 23:00 Bactrim) trimethoprim (From Bactrim) Allergy Hives Verified 07/28/24 23:00 Family History Father Lung cancer Obesity Aunt Diabetes CAD (coronary artery disease) Mother VSD (ventricular septal defect) Thyroid disorder Brother Leukemia Grandmother Breast cancer Surgical History History of cardiac catheterization History of atrial septal defect repair ( 2021) S/P ERCP S/P laparoscopic cholecystectomy Hx of maze procedure Hx of tubal ligation History of bunionectomy Hx of tonsillectomy Social History Smoking Status: Never smoker ROS ROS ED (more content not included)... Normal [facility] Eosinophil percentageOrdered By: Gamal Simons on 12-09-2024 Eosinophils/100 WBC (Bld) 2.7 % 0-5 [facility] Erythrocyte distribution wid th ratioOrdered By: Gamal Simons on 12-09-2024 Erythrocyte distribution width (RBC) [Ratio] 13.8 % 11.6-14.6 [facility] Erythrocyte distribution wid th standard deviationOrdered By: Gamal Simons on 12-09-2024 Erythrocyte distribution width (RBC) [Entitic vol] 42.1 fL 35.1-43.9 [facility] GFR/1.73 sq M.predicted [place] g non-blacks MDRD (S/P/Bld) [Vol rate/Area]Ordered By: Gamal Simons on 12-09-2024 Estimated GFR (MDRD) Non-Af Amer 83 >60 [facility] Comment on above: mL/min/1.73m2 CKD-EP I Creatinine Equation (2020) Hematocrit Auto (Bld) [Volum e fraction]Ordered By: Gamal Simons on 12-09-2024 Hematocrit (Bld) [Volume fraction] 40.0 % 37-47 [facility] Hemoglobin measurementOrdere d By: Gamal Simons on 12-09-2024 Hemoglobin (Bld) [Mass/Vol] 14.2 g/dL 12.0-15.0 [facility] Immature granulocytes/100 WB C Auto (Bld)Ordered By: Gamal Simons on 12-09-2024 Immature granulocytes/100 WBC (Bld) 0.500 % 0.0-0.9 [facility] Comment on above: IG% - Immature Granu locytes (promyelocytes, myelocytes and metamyelocytes) > 1% indicates that a LEFT SHIFT is Present. International normalized rat io (INR) calculationOrdered By: Gamal Simons on 12-09-2024 INR Coag (Bld) [Relative time] 1.3 {INR} [facility] L499.0042on 12-09-2024 Trop T High Sen 9 ng/L Normal <=14 [facility] Comment on above: Performed By: #### M 100.2200, L400.0001, M100.678 #### [facility] [address] [place], [address] L499.0043on 12-09-2024 Trop T High Sen 9 ng/L Normal <=14 [facility] Comment on above: Performed By: #### M 100.2200, L400.0001, M100.678 #### [facility] [address] [place], [address] L501.4021on 12-09-2024 Trop T High Sen 7 ng/L Normal <=14 [facility] Comment on above: Performed By: #### L 501.4021, L300.4310, L500.2500, L100.0100, L300.3900, L503.7505 #### [facility] [address] [place], [address] L503.7505on 12-09-2024 Natriuretic peptide B (Bld) [Mass/Vol] 225 pg/mL Normal <=900 [facility] Comment on above: Result Comment: Hear t Failure Unlikely: < 300 pg/mL Heart Failure Likely < 50 Years: > 450 pg/mL 50-75 Years: > 900 pg/mL >75 Years: > 1800 pg/mL Performed By: #### L 501.4021, L300.4310, L500.2500, L100.0100, L300.3900, L503.7505 #### [facility] [address] [place], [address] Laboratory - Chemistry and C hemistry - challengeOrdered By: Gamal Simons on 12-09-2024 Natriuretic peptide B (Bld) [Mass/Vol] 225 pg/mL <900 [facility] Comment on above: Heart Failure Unlike ly: < 300 pg/mLHeart Failure Likely< 50 Years: > 450 pg/mL50-75 Years: > 900 pg/mL>75 Years: > 1800 pg/mL Lymphocytes Auto (Unsp spec) [#/Vol]Ordered By: Gamal Simons on 12-09-2024 Lymphocytes (Bld) [#/Vol] 1.58 10*3/uL 0.83-4.51 [facility] Lymphocytes/100 WBC Auto (Un sp spec)Ordered By: Gamal Simons on 12-09-2024 Lymphocytes/100 WBC (Bld) 27.1 % 19-41 [facility] MCV (mean corpuscular volume ) determinationOrdered By: Gamal Simons on 12-09-2024 MCV (RBC) [Entitic vol] 86.4 fL 81-99 [facility] Mean corpuscular hemoglobin (MCH) determinationOrdered By: Gamal Simons on 12-09-2024 MCH (RBC) [Entitic mass] 30.7 pg 27.0-32.0 [facility] Mean corpuscular hemoglobin concentration (MCHC) determinationOrdered By: Gamal Simons on 12-09-2024 MCHC (RBC) [Mass/Vol] 35.5 g/dL 32-36 [facility] Mean platelet volume determi nationOrdered By: Gamal Simons on 12-09-2024 Platelet mean volume (Bld) [Entitic vol] 10.1 fL 6.2-12.0 [facility] Monocyte percentageOrdered B y: Gamal Simons on 12-09-2024 Monocytes/100 WBC (Bld) 7.2 % 0-10 [facility] Neutrophil percentageOrdered By: Gamal Simons on 12-09-2024 Neutrophils/100 WBC (Bld) 62.0 % 47-70 [facility] No Panel InformationOrdered By: Gamal Simons on 12-09-2024 Troponin T High Sensitivity 7 ng/L <14 [facility] Nucleated red blood cell per centageOrdered By: Gamal Simons on 12-09-2024 Nucleated RBC/100 WBC (Bld) [Ratio] 0 % 0-5 [facility] Partial Thromboplast TimeOrd ered By: Gamal Simons on 12-09-2024 aPTT Coag (Bld) [Time] 23.4 s Low 24.1-36.2 [facility] Comment on above: Performed By: #### L 501.4021, L300.4310, L500.2500, L100.0100, L300.3900, L503.7505 #### [facility] [address] [place], [address] Platelet countOrdered By: Tiago Simons on 12-09-2024 Platelets (Bld) [#/Vol] 167 10*3/uL 150-450 [facility] Potassium (Unsp spec) [Mass/ Vol]Ordered By: Gamal Simons on 12-09-2024 Potassium [Moles/Vol] 4.1 mmol/L 3.3-5.1 [facility] Comment on above: Hemolysis present, R esults could be affected. Prothrombin Time w/INRon INR Coag (PPP) [Relative time] 1.3 {INR} Normal [facility] Comment on above: Performed By: #### L 501.4021, L300.4310, L500.2500, L100.0100, L300.3900, L503.7505 #### [facility] [address] [place], [address] Prothrombin Time w/INROrdere d By: Gamal Simons on 12-09-2024 PT Coag (PPP) [Time] 15.9 s High 11.7-14.9 [facility] Comment on above: Performed By: #### L 501.4021, L300.4310, L500.2500, L100.0100, L300.3900, L503.7505 #### [facility] [address] [place], [address] RBC Auto (Bld) [#/Vol]Ordere d By: Gamal Simons on 12-09-2024 RBC (Bld) [#/Vol] 4.63 10*6/uL 4.2-5.4 [facility] Serum creatinine measurement (mass/volume)Ordered By: Gamal Simons on 12-09-2024 Creatinine [Mass/Vol] 0.80 mg/dL 0.70-1.20 [facility] Serum glucose measurement (m ass/volume)Ordered By: Gamal Siomns on 12-09-2024 Glucose [Mass/Vol] 109 mg/dL High 70-99 [facility] Serum or plasma calcium angie urement (mass/volume)Ordered By: Gamal Simons on 12-09-2024 Calcium [Mass/Vol] 9.6 mg/dL 7.6-11.0 [facility] Serum or plasma urea nitroge n measurement (mass/volume)Ordered By: Gamal Simons on 12-09-2024 Urea nitrogen [Mass/Vol] 14 mg/dL 4-19 [facility] Sodium levelOrdered By: Michelle Simons on 12-09-2024 Sodium [Moles/Vol] 139 mmol/L 133-145 [facility] Troponin T.cardiac High sens itivity method [Mass/Vol]Ordered By: Gamal Simons on 12-09-2024 Troponin T High Sensitivity 2 Hour 9 ng/L <14 [facility] White blood cell (WBC) count Ordered By: Gamal Simons on 12-09-2024 WBC (Bld) [#/Vol] 5.8 10*3/uL 4.4-11.0 [facility] Emergency Department Summary on 07-29-2024 Emergency Department Summary [facility] Medical Records Department [address] [place] [address] Emergency Department Summary 07/29/24 MR#: [id number] Acct: [id number] Name: YUE ANGULO Rep #: [id number] : 1960 63 From: Yovanny Bran DO PCP: Dr. Lina Zendejas MD Status:DEP ER Location: ED HPI History of Present Illness Chief Complaint: Chest Pain Informant: patient and family Narrative Narrative: Patient is a 63-year-old female with past medical history of hypertension as well as proximal atrial fibrillation currently on Xarelto as well as anxiety and depression. She states her rn integrated has informed her that she will most likely need a pacemaker as she keeps having runs of fast atrial fibrillation despite taking Cardizem digoxin and Tikosyn. She states that she noticed she was in A- fib today when she awoke and went to work. She states that as long as her heart rate is typically below 80 she does not feel the atrial fibrillation. She states she was doing well throughout the day as her heart rate was lower but this evening it shot up to approximately 150 and with that she noticed chest discomfort and therefore comes to the hospital for evaluation [facility] Medical History Wears glasses Depression Anxiety Arthritis Fatty liver Easy bruising Restless legs Migraine headache History of IBS GERD (gastroesophageal reflux disease) CPAP (continuous positive airway pressure) dependence Chronic cough Shortness of breath on exertion Non-smoker History of echocardiogram History of stress test Hypertension Cardiology follow-up encounter History of atrial fibrillation A-fib Pulmonary HTN Sleep apnea Home Medications ???Medication ???Instructions ???Recorded ???Last Taken ???Type rivaroxaban 20 mg tablet (Xarelto) 20 mg PO QPM BLOOD THINNER 03/14/22 12/25/23 History buspirone 5 mg tablet 5 mg PO TID PRN ANXIETY 10/09/23 12/29/23 History cholecalciferol (vitamin D3) 25 25 mcg PO DAILY SUPPLEMENT 10/09/23 07/28/24 History mcg (1,000 unit) tablet (Vitamin D3) cyanocobalamin (vitamin B-12) 1,000 mcg PO DAILY SUPPLEMENT 10/09/23 07/27/24 History 1,000 mcg capsule dofetilide 500 mcg capsule 500 mcg PO BID AFIB 10/09/23 12/29/23 History (Tikosyn) magnesium 250 mg tablet 250 mg PO BID SUPPLEMENT 10/09/23 12/29/23 History potassium chloride 20 mEq 20 meq PO DAILY PRN SUPPLEMENT 10/09/23 12/27/23 History tablet,extended release (K-Tab) tadalafil 20 mg tablet 20 mg PO BID LUNGS 10/09/23 12/29/23 History digoxin 125 mcg (0.125 mg) tablet 125 mcg PO DAILY 04/23/24 07/27/24 History aspirin 81 mg chewable tablet 1 tab PO DAILY 07/16/24 07/26/24 History diltiazem HCl 30 mg tablet 30 mg PO Q6H PRN afib 07/16/24 07/28/24 History (Cardizem) ondansetron 4 mg disintegrating 4 mg PO Q8H PRN nausea and 07/16/24 Unknown Rx tablet vomiting #12 tabs Allergy/AdvReac Type Severity Reaction Status Date / Time codeine Allergy Other Verified 07/28/24 23:00 ibuprofen (From Motrin) Allergy Hives Verified 07/28/24 23:00 Iodinated Contrast Media (CT) Allergy Chest Verified 07/28/24 23:00 tightness morphine Allergy Hives Verified 07/28/24 23:00 phenytoin sodium (From Allergy Other Verified 07/28/24 23:00 Dilantin) phenytoin sodium extended Allergy Other Verified 07/28/24 23:00 (From Dilantin) sulfamethoxazole (From Allergy Hives Verified 07/28/24 23:00 Bactrim) trimethoprim (From Bactrim) Allergy Hives Verified 07/28/24 23:00 Family History Father Lung cancer Obesity Aunt Diabetes CAD (coronary artery disease) Mother VSD (ventricular septal defect) Thyroid disorder Brother Leukemia Grandmother Breast cancer Surgical History History of cardiac catheterization History of atrial septal defect repair ( 2021) S/P ERCP S/P laparoscopic cholecystectomy Hx of maze procedure Hx of tubal ligation History of bunionectomy Hx of tonsillectomy Social History Smoking Status: Never smoker ROS ROS ED Constitutional Constitutional ED: Denies chills or fever(s) Eyes Eyes: Denies blurry vision or change in vision ENT ENT ED: Denies sore throat Cardiovascular Cardiovascular: Reports chest pain, palpitations and racing heartbeat Respiratory/Chest Respiratory/Chest: Denies cough or dyspnea Gastrointestinal Gastrointestinal: Denies abdominal pain, diarrhea, nausea or vomiting Genitourinary Genitourinary ED: Denies dysuria Musculoskeletal Musculoskeletal: Denies myalgias Integumentary Denies rash Neurologic Neurologic: Denies headache(s) Hematologic/Lymphatic Hematologic/Lymphatic: Re (more content not included)... Normal [facility] 12 Lead EKGon 07-28-2024 12 Lead EKG [facility] Cardiovascular Services [address] [place] [address] 12 Lead EKG 07/28/24 2312 MR#: [id number] Acct: [id number] Name: YUE ANGULO Rep #: [id number] : 1960 63 From: Jamar Clark MD Attending Dr: Status: DEP ER Ordering Dr: Yovanny Bran DO Date: 07/28/24 Location: ED Sex: F C Admitted: Test Reason : CP Blood Pressure : */* mmHG Vent. Rate : 115 BPM Atrial Rate : 346 BPM P-R Int : * ms QRS Dur : 64 ms QT Int : 344 ms P-R-T Axes : * 81 5 degrees QTcB Int : 475 ms Atrial flutter with variable A-V block Abnormal ECG Confirmed by Jamar Clark ([id number]), science editor ROBIN ROLAND ([id number]) on 07/29/2024 1:09:37 PM Referred By: BASIL Confirmed By: Jamar Clark 07/29/24 1309 Date Jamar Clark MD CC: Dr. Lina Zendejas MD; Yovanny Bran DO Signed Normal [facility] Basic Metabolic Profile (BMP )on 07-28-2024 BUN/CRE 17.4 RATIO Normal 10-20 [facility] Comment on above: Performed By: #### M 100.2200, L400.0001, M100.678 #### [facility] [address] [place], [address] CA,Total 9.2 mg/dL Normal 8.5-10.1 [facility] Comment on above: Performed By: #### M 100.2200, L400.0001, M100.678 #### [facility] [address] [place], [address] Chloride [Moles/Vol] 110 mmol/L High 98-107 [facility] Comment on above: Performed By: #### M 100.2200, L400.0001, M100.678 #### [facility] [address] [place], [address] CO2 [Moles/Vol] 28.0 mmol/L Normal 21.0-32.0 [facility] Comment on above: Performed By: #### M 100.2200, L400.0001, M1.678 #### [facility] [address] [place], [address] Creatinine [Mass/Vol] 0.86 mg/dL Normal 0.55-1.02 [facility] Comment on above: Result Comment: The validity of the calculated GFR GFRAA in patients over 70 years has not been determined. Clinical correlation is essential. Performed By: #### M 100.2200, L400.0001, M1678 #### [facility] [address] [place], [address] ECRCL 71.27 ml/min Normal [facility] Comment on above: Performed By: #### M 100.2200, L400.0001, M100.678 #### [facility] [address] [place], [address] EST GFR - AA 85 mL/min Normal >60 [facility] Comment on above: Result Comment: Afri can Mold[place] GFR Calc Performed By: #### M 100.2200, L400.0001, M100.678 #### [facility] [address] [place], [address] GAP 5 Normal 5-15 [facility] Comment on above: Performed By: #### M 100.2200, L400.0001, M100.678 #### [facility] [address] [place], [address] GFR/1.73 sq M.predicted among non-blacks MDRD (S/P/Bld) [Vol rate/Area] 71 mL/min/{1.73_m2} Normal >60 [facility] Comment on above: Result Comment: Non- GFR Calc Performed By: #### M 100.2200, L400.0001, 8 #### [facility] [address] [place], [address] Glucose [Mass/Vol] 122 mg/dL High 74-106 [facility] Comment on above: Result Comment: Fast ing Glucose result from 100 to 125 mg/dL suggests IMPAIRED HOMEOSTASIS per A.D.A. criteria. Performed By: #### M 100.2200, L400.0001, 8 #### [facility] [address] [place], [address] Potassium [Moles/Vol] 3.8 mmol/L Normal 3.5-5.1 [facility] Comment on above: Performed By: #### M 100.2200, L400.0001, .8 #### [facility] [address] [place], [address] Sodium [Moles/Vol] 143 mmol/L Normal 136-145 [facility] Comment on above: Performed By: #### M 100.2200, L400.0001, 678 #### [facility] [address] [place], [address] Urea nitrogen [Mass/Vol] 15 mg/dL Normal 7-18 [facility] Comment on above: Performed By: #### M 100.2200, L400.0001, .678 #### [facility] [address] [place], [address] CBC W/Diff, Automatedon 11-0 5-2023 Absolute Lymph 1.93 X10 3/uL Normal 0.83-4.51 [facility] Comment on above: Performed By: #### M 100.2200, L400.0001, #### [facility] [address] [place], [address] Absolute Neut 5.3 X10 3/uL Normal 2.0-7.7 [facility] Comment on above: Performed By: #### M 100.2200, L400.0001, #### [facility] [address] [place], [address] Basophils/100 WBC (Bld) 0.8 % Normal 0-1 [facility] Comment on above: Performed By: #### M 100.2200, L400.0001, #### [facility] [address] [place], [address] Eosinophils/100 WBC (Bld) 2.5 % Normal 0-5 [facility] Comment on above: Performed By: #### M 100.2200, L400.0001, #### [facility] [address] [place], [address] Erythrocyte distribution width (RBC) [Ratio] 13.6 % Normal 11.6-14.6 [facility] Comment on above: Performed By: #### M 100.2200, L400.0001, #### [facility] [address] [place], [address] Hematocrit (Bld) [Volume fraction] 43.6 % Normal 37-47 [facility] Comment on above: Performed By: #### M 100.2200, L400.0001, #### [facility] [address] [place], [address] Hemoglobin (Bld) [Mass/Vol] 14.8 g/dL Normal 12.0-15.0 [facility] Comment on above: Performed By: #### M 100.2200, L400.0001, #### [facility] [address] [place], [address] IG% 0.600 Normal 0.0-0.9 [facility] Comment on above: Result Comment: IG% - Immature Granulocytes (promyelocytes, myelocytes and metamyelocytes) > 1% indicates that a LEFT SHIFT is Present. Performed By: #### M 100.2200, L400.0001, #### [facility] [address] [place], [address] Lymphocytes/100 WBC (Bld) 23.4 % Normal 19-41 [facility] Comment on above: Performed By: #### M 100.2200, L400.0001, #### [facility] [address] [place], [address] MCH (RBC) [Entitic mass] 29.7 pg Normal 27.0-32.0 [facility] Comment on above: Performed By: #### M 100.2200, L400.0001, #### [facility] [address] [place], [address] MCHC (RBC) [Mass/Vol] 33.9 g/dL Normal 32-36 [facility] Comment on above: Performed By: #### M 100.2200, L400.0001, #### [facility] [address] [place], [address] MCV (RBC) [Entitic vol] 87.4 fL Normal 81-99 [facility] Comment on above: Performed By: #### M 100.2200, L400.0001, 8 #### [facility] [address] [place], [address] Monocytes/100 WBC (Bld) 8.4 % Normal 0-10 [facility] Comment on above: Performed By: #### M 100.2200, L400.0001, #### [facility] [address] [place], [address] Neutrophils/100 WBC (Bld) 64.3 % Normal 47-70 [facility] Comment on above: Performed By: #### M 100.2200, L400.0001, #### [facility] [address] [place], [address] Nucleated RBC (Bld) [#/Vol] 0 10*3/uL Normal 0-5 [facility] Comment on above: Performed By: #### M 100.2200, L400.0001, #### [facility] [address] [place], [address] Platelet mean volume (Bld) [Entitic vol] 9.9 fL Normal 6.2-12.0 [facility] Comment on above: Performed By: #### M 100.2200, L400.0001, #### [facility] [address] [place], [address] Platelets (Bld) [#/Vol] 240 10*3/uL Normal 150-450 [facility] Comment on above: Performed By: #### M 100.2200, L400.0001, #### [facility] [address] [place], [address] RBC (Bld) [#/Vol] 4.99 10*6/uL Normal 4.2-5.4 [facility] Comment on above: Performed By: #### M 100.2200, L400.0001, 8 #### [facility] [address] [place], [address] RDW SD 42.8 fl Normal 35.1-43.9 [facility] Comment on above: Performed By: #### M 100.2200, L400.0001, M100.678 #### [facility] [address] [place], [address] WBC (Bld) [#/Vol] 8.2 10*3/uL Normal 4.4-11.0 [facility] Comment on above: Performed By: #### M 100.2200, L400.0001, M100.678 #### [facility] [address] [place], [address] Chest 1 View (Portable)on Chest 1 View (Portable) [facility] Imaging Services [address] [place] [address] Chest 1 View (Portable) MR#: [id number] Acct: [id number] Name: YUE ANGULO Rep #: [id number] : 1960 F 63 From: Greg trejo DO PCP: Dr. Lina Zendejas MD Status: REG ER Study: Chest 1 View (Portable) Date of Exam: 07/28/24 Exam# [id number] Ordering Dr: Yovanny Bran DO [id number] EXAM: XR CHEST, 1 VIEW CLINICAL INDICATION: chest pain TECHNIQUE: Frontal view of the chest. COMPARISON: 07/16/2024 FINDINGS: LUNGS AND PLEURAL SPACES: No significant abnormality. No consolidation or edema. No pneumothorax. No effusion. HEART: Postoperative changes of the artery and identified. Status post left atrial appendage occlusion. Likely mitral clip. No cardiomegaly. MEDIASTINUM: Central airways and mediastinal contour are unremarkable. BONES/JOINTS: No significant abnormality. No acute fracture. SOFT TISSUES: No significant abnormality. OTHER FINDINGS: No significant change. RAD/Chest 1 View (Portable) IMPRESSION: Postoperative changes of the artery and identified. Status post left atrial appendage occlusion. Likely mitral clip. No cardiomegaly. Electronically Signed: Greg Bridges DO at 23:51 EST , CC: Dr. Lina Zendejas MD; Yovanny Bran DO Paper Pattern Folder: Signed [facility] Magnesiumon 07-28-2024 Magnesium [Mass/Vol] 2.2 mg/dL Normal 1.6-2.6 [facility] Comment on above: Performed By: #### M 100.2200, L400.0001, M100.678 #### [facility] [address] [place], [address] Thyroid Stim Hormone (TSH)on 07-28-2024 TSH 7.390 uIU/mL High 0.358-3.740 [facility] Comment on above: Performed By: #### M 100.2200, L400.0001, M100.678 #### [facility] [address] [place], [address] Culture, Blood (WB)on 2023 CUB Blood cultures x2, from two different sites No growth in 5 days. [facility] Comment on above: Performed By: #### M 100.2200, L400.0001, M100.678 #### [facility] [address] [place], [address] Urine Cultureon 07-17-2024 URC Culture exhibits no growth. [facility] Comment on above: Performed By: #### M 100.2200, L400.0001, M100.678 #### [facility] [address] [place], [address] 12 Lead EKGon 07-16-2024 12 Lead EKG [facility] Cardiovascular Services [address] [place] [address] 12 Lead EKG 07/16/24 0311 MR#: [id number] Acct: [id number] Name: YUE ANGULO Rep #: [id number] : 1960 63 From: Buster Light MD Attending Dr: Status: DEP ER Ordering Dr: Cosmo Quick MD Date: 07/16/24 Location: ED Sex: F C Admitted: Test Reason : RHYTHM CONVERSION Blood Pressure : / mmHG Vent. Rate : 070 BPM Atrial Rate : 070 BPM P-R Int : 180 ms QRS Dur : 072 ms QT Int : 410 ms P-R-T Axes : 041 078 034 degrees QTc Int : 442 ms Normal sinus rhythm Normal ECG Confirmed by BUSTER LIGHT MD ([id number]), science editor ROBIN ROLAND ([id number]) on 07/16/2024 9:27:20 AM Referred By: Confirmed By:BUSTER LIGHT MD 07/16/24926 Date Buster Light MD CC: Dr. Cosmo Quick MD; Dr. Lina Zendejas MD Signed Normal [facility] Abdomen/Pelvis without Conto n 07-16-2024 Abdomen/Pelvis without Cont [facility] Imaging Services [address] [place] [address] Abdomen/Pelvis without Cont MR#: [id number] Acct: [id number] Name: YUE ANGULO Rep #: [id number] : 1960 F 63 From: Lyn Bell MD PCP: Dr. Lina Zendejas MD Status: REG ER Study: Abdomen/Pelvis without Cont Date of Exam: 06/24 01/14 Exam# [id number] Ordering Dr: Cosmo Quick MD [id number] STUDY: CT ABDOMEN AND PELVIS WITHOUT CONTRAST REASON FOR EXAM: Female, 63 years old patient with diarrhea. RADIATION DOSAGE (If Supplied By Facility): CTDIvol = ( 10.16 ) mGy, DLP = ( 522.83 ) mGycm TECHNIQUE: Transaxial images were obtained from the dome of the diaphragm to the symphysis pubis without oral contrast, and without intravenous contrast. Sagittal and coronal images were reconstructed. Individualized dose optimization techniques were used for this CT. COMPARISON: None. FINDINGS: The visualized lung bases are unremarkable. The visualized portions of the heart are within normal limits. Normal liver. There are surgical clips in the gallbladder fossa consistent with a prior cholecystectomy. There is moderate splenomegaly. Normal pancreas. Normal bilateral adrenal glands. Normal right kidney. Normal left kidney. Normal visualized stomach. There is no obvious dilated bowel, ascites or pneumoperitoneum. There is a large amount of fluid in the small bowel suggesting possible infectious or inflammatory enteritis. There is liquid stool in the colon consistent with diarrhea and possible infectious or inflammatory colitis. The appendix is visualized and appears normal. Normal abdominal aorta. Inferior vena cava is slitlike suggesting hypovolemia and/or dehydration. Normal retroperitoneum. Normal urinary bladder. Normal visualized uterus. There appear to be small periumbilical ventral hernias containing fat. There are multifocal degenerative changes of the visualized spine. CT/Abdomen/Pelvis without Cont IMPRESSION: 1. Findings suggest sequela of infectious or inflammatory enteritis and possible colitis. 2. Moderate splenomegaly. Electronically Signed: Lyn Bell MD at 3:46 EDT Reading Location ID and State: [address] [place] [address] , Service support , CC: Dr. Cosmo Quick MD; Dr. Lina Zendejas MD Paper Pattern Folder: Signed Normal [facility] CBC W/Diff, Automatedon 06-24 Absolute Lymph 0.85 X10 3/uL Normal 0.83-4.51 [facility] Comment on above: Performed By: #### M 100.2200, L400.0001, M100.678 #### [facility] [address] [place], [address] Absolute Neut 5.5 X10 3/uL Normal 2.0-7.7 [facility] Comment on above: Performed By: #### M 100.2200, L400.0001, #### [facility] [address] [place], [address] Basophils/100 WBC (Bld) 0.4 % Normal 0-1 [facility] Comment on above: Performed By: #### M 100.2200, L400.0001, #### [facility] [address] [place], [address] Eosinophils/100 WBC (Bld) 0.0 % Normal 0-5 [facility] Comment on above: Performed By: #### M 100.2200, L400.0001, #### [facility] [address] [place], [address] Erythrocyte distribution width (RBC) [Ratio] 13.6 % Normal 11.6-14.6 [facility] Comment on above: Performed By: #### M 100.2200, L400.0001, #### [facility] [address] [place], [address] Hematocrit (Bld) [Volume fraction] 39.4 % Normal 37-47 [facility] Comment on above: Performed By: #### M 100.2200, L400.0001, #### [facility] [address] [place], [address] Hemoglobin (Bld) [Mass/Vol] 13.8 g/dL Normal 12.0-15.0 [facility] Comment on above: Performed By: #### M 100.2200, L400.0001, 8 #### [facility] [address] [place], [address] IG% 0.600 Normal 0.0-0.9 [facility] Comment on above: Result Comment: IG% - Immature Granulocytes (promyelocytes, myelocytes and metamyelocytes) > 1% indicates that a LEFT SHIFT is Present. Performed By: #### M 100.2200, L400.0001, #### [facility] [address] [place], [address] Lymphocytes/100 WBC (Bld) 12.3 % Low 19-41 [facility] Comment on above: Performed By: #### M 100.2200, L400.0001, #### [facility] [address] [place], [address] MCH (RBC) [Entitic mass] 30.7 pg Normal 27.0-32.0 [facility] Comment on above: Performed By: #### M 100.2200, L400.0001, #### [facility] [address] [place], [address] MCHC (RBC) [Mass/Vol] 35.0 g/dL Normal 32-36 [facility] Comment on above: Performed By: #### M 100.2200, L400.0001, #### [facility] [address] [place], [address] MCV (RBC) [Entitic vol] 87.6 fL Normal 81-99 [facility] Comment on above: Performed By: #### M 100.2200, L400.0001, #### [facility] [address] [place], [address] Monocytes/100 WBC (Bld) 6.7 % Normal 0-10 [facility] Comment on above: Performed By: #### M 100.2200, L400.0001, 8 #### [facility] [address] [place], [address] Neutrophils/100 WBC (Bld) 80.0 % High 47-70 [facility] Comment on above: Performed By: #### M 100.2200, L400.0001, #### [facility] [address] [place], [address] Nucleated RBC (Bld) [#/Vol] 0 10*3/uL Normal 0-5 [facility] Comment on above: Performed By: #### M 100.2200, L400.0001, #### [facility] [address] [place], [address] Platelet mean volume (Bld) [Entitic vol] 10.1 fL Normal 6.2-12.0 [facility] Comment on above: Performed By: #### M 100.2200, L400.0001, #### [facility] [address] [place], [address] Platelets (Bld) [#/Vol] 169 10*3/uL Normal 150-450 [facility] Comment on above: Performed By: #### M 100.2200, L400.0001, #### [facility] [address] [place], [address] RBC (Bld) [#/Vol] 4.50 10*6/uL Normal 4.2-5.4 [facility] Comment on above: Performed By: #### M 100.2200, L400.0001, #### [facility] [address] [place], [address] RDW SD 42.3 fl Normal 35.1-43.9 [facility] Comment on above: Performed By: #### M 100.2200, L400.0001, #### [facility] [address] [place], [address] WBC (Bld) [#/Vol] 6.9 10*3/uL Normal 4.4-11.0 [facility] Comment on above: Performed By: #### M 100.2200, L400.0001, M100.678 #### [facility] [address] [place], [address] Chest 1 View (Portable)on Chest 1 View (Portable) [facility] Imaging Services [address] [place] [address] Chest 1 View (Portable) MR#: [id number] Acct: [id number] Name: YUE ANGULO Rep #: [id number] : 1960 F 63 From: Kev montes MD PCP: Dr. Lina Zendejas MD Status: REG ER Study: Chest 1 View (Portable) Date of Exam: 07/16/24 Exam# [id number] Ordering Dr: Cosmo Quick MD [id number] EXAM: XR CHEST, 1 VIEW CLINICAL INDICATION: Fever TECHNIQUE: Frontal view of the chest. COMPARISON: Previous chest radiographs of 05/23/2024 and 10/12/2023. FINDINGS: LUNGS AND PLEURAL SPACES: Curvilinear atelectasis or scarring within the left mid to lower lung. No consolidation or edema. No pneumothorax. No effusion. HEART: Unremarkable. Cardiac silhouette not enlarged. Normal pulmonary vasculature. Left atrial appendage clamp again noted. MEDIASTINUM: Thoracic aorta remains minimally elongated and calcific. No mediastinal widening. BONES/JOINTS: Unremarkable. No acute fracture. SOFT TISSUES: Unremarkable. RAD/Chest 1 View (Portable) IMPRESSION: No significant interval change. No radiographic evidence of acute cardiopulmonary disease. Electronically Signed: Kev Beneidct MD at 3:39 EDT , CC: Dr. Cosmo Quick MD; Dr. Lina Zendejas MD Paper Pattern Folder: Signed Normal [facility] Comprehensive Metabolic Prof ilon 07-16-2024 Albumin [Mass/Vol] 3.8 g/dL Normal 3.2-5.0 [facility] Comment on above: Order Comment: 'TROP ' Serial specimen #1, #2 or #3: 1 Performed By: #### M 100.2200, L400.0001, M100.678 #### [facility] [address] [place], [address] Albumin/Globulin [Mass ratio] 1.1 {ratio} Normal 0.9-2.4 [facility] Comment on above: Order Comment: 'TROP ' Serial specimen #1, #2 or #3: 1 Performed By: #### M 100.2200, L400.0001, M100.678 #### [facility] [address] [place], [address] ALK P 123 U/L High 45-117 [facility] Comment on above: Order Comment: 'TROP ' Serial specimen #1, #2 or #3: 1 Performed By: #### M 100.2200, L400.0001, M100.678 #### [facility] [address] [place], [address] ALT [Catalytic activity/Vol] 41 U/L Normal 13-56 [facility] Comment on above: Order Comment: 'TROP ' Serial specimen #1, #2 or #3: 1 Performed By: #### M 100.2200, L400.0001, M100.678 #### [facility] [address] [place], [address] AST [Catalytic activity/Vol] 33 U/L Normal 15-37 [facility] Comment on above: Order Comment: 'TROP ' Serial specimen #1, #2 or #3: 1 Performed By: #### M 100.2200, L400.0001, M100.678 #### [facility] [address] [place], [address] Bilirubin [Mass/Vol] 1.40 mg/dL High 0.20-1.00 [facility] Comment on above: Order Comment: 'TROP ' Serial specimen #1, #2 or #3: 1 Result Comment: For patients on eltrombopag therapy, use of Dimension [place] TBIL is not recommended. Performed By: #### M 100.2200, L400.0001, M100.678 #### [facility] [address] [place], [address] BUN/CRE 14.0 RATIO Normal 10-20 [facility] Comment on above: Order Comment: 'TROP ' Serial specimen #1, #2 or #3: 1 Performed By: #### M 100.2200, L400.0001, M1.678 #### [facility] [address] [place], [address] CA,Total 8.8 mg/dL Normal 8.5-10.1 [facility] Comment on above: Order Comment: 'TROP ' Serial specimen #1, #2 or #3: 1 Performed By: #### M 100.2200, L400.0001, M100.678 #### [facility] [address] [place], [address] Chloride [Moles/Vol] 107 mmol/L Normal 98-107 [facility] Comment on above: Order Comment: 'TROP ' Serial specimen #1, #2 or #3: 1 Performed By: #### M 100.2200, L400.0001, M1.678 #### [facility] [address] [place], [address] CO2 [Moles/Vol] 21.0 mmol/L Normal 21.0-32.0 [facility] Comment on above: Order Comment: 'TROP ' Serial specimen #1, #2 or #3: 1 Performed By: #### M 100.2200, L400.0001, M100.678 #### [facility] [address] [place], [address] Creatinine [Mass/Vol] 1.00 mg/dL Normal 0.55-1.02 [facility] Comment on above: Order Comment: 'TROP ' Serial specimen #1, #2 or #3: 1 Result Comment: The validity of the calculated GFR GFRAA in patients over 70 years has not been determined. Clinical correlation is essential. Performed By: #### M 100.2200, L400.0001, M100.678 #### [facility] [address] [place], [address] ECRCL 61.33 ml/min Normal [facility] Comment on above: Order Comment: 'TROP ' Serial specimen #1, #2 or #3: 1 Performed By: #### M 100.2200, L400.0001, M100.678 #### [facility] [address] [place], [address] EST GFR - AA 72 mL/min Normal >60 [facility] Comment on above: Order Comment: 'TROP ' Serial specimen #1, #2 or #3: 1 Result Comment: Afri can [place] GFR Calc Performed By: #### M 100.2200, L400.0001, M100.678 #### [facility] [address] [place], [address] GAP 9 Normal 5-15 [facility] Comment on above: Order Comment: 'TROP ' Serial specimen #1, #2 or #3: 1 Performed By: #### M 100.2200, L400.0001, M100.678 #### [facility] [address] [place], [address] GFR/1.73 sq M.predicted among non-blacks MDRD (S/P/Bld) [Vol rate/Area] 60 mL/min/{1.73_m2} Normal >60 [facility] Comment on above: Order Comment: 'TROP ' Serial specimen #1, #2 or #3: 1 Result Comment: Non- GFR Calc Performed By: #### M 100.2200, L400.0001, M100.678 #### [facility] [address] [place], [address] Globulin (S) [Mass/Vol] 3.6 g/dL Normal 2.2-4.2 [facility] Comment on above: Order Comment: 'TROP ' Serial specimen #1, #2 or #3: 1 Performed By: #### M 100.2200, L400.0001, M100.678 #### [facility] [address] [place], [address] Glucose [Mass/Vol] 124 mg/dL High 74-106 [facility] Comment on above: Order Comment: 'TROP ' Serial specimen #1, #2 or #3: 1 Result Comment: Fast ing Glucose result from 100 to 125 mg/dL suggests IMPAIRED HOMEOSTASIS per A.D.A. criteria. Performed By: #### M 100.2200, L400.0001, M100.8 #### [facility] [address] [place], [address] Potassium [Moles/Vol] 3.5 mmol/L Normal 3.5-5.1 [facility] Comment on above: Order Comment: 'TROP ' Serial specimen #1, #2 or #3: 1 Performed By: #### M 100.2200, L400.0001, M100.678 #### [facility] [address] [place], [address] Sodium [Moles/Vol] 136 mmol/L Normal 136-145 [facility] Comment on above: Order Comment: 'TROP ' Serial specimen #1, #2 or #3: 1 Performed By: #### M 100.2200, L400.0001, M100.678 #### [facility] [address] [place], [address] T PROT 7.4 g/dL Normal 6.4-8.2 [facility] Comment on above: Order Comment: 'TROP ' Serial specimen #1, #2 or #3: 1 Performed By: #### M 100.2200, L400.0001, M100.678 #### [facility] [address] [place], [address] Urea nitrogen [Mass/Vol] 14 mg/dL Normal 7-18 [facility] Comment on above: Order Comment: 'TROP ' Serial specimen #1, #2 or #3: 1 Performed By: #### M 100.2200, L400.0001, M100.678 #### [facility] [address] [place], [address] Emergency Department Summary on 07-16-2024 Emergency Department Summary [facility] Medical Records Department [address] [place] [address] Emergency Department Summary 07/16/24 MR#: [id number] Acct: [id number] Name: YUE ANGULO Rep #: [id number] : 1960 63 From: Cosmo uQick MD PCP: Dr. Lina Zendejas MD Status:REG ER Location: ED HPI History of Present Illness Chief Complaint: Nausea/Vomiting/Diarrh ea Narrative Narrative: 63-year-old female past medical history of atrial fibrillation, on Tikosyn, takes Cardizem or is supposed to as needed presents with multiple somatic complaints. She states that yesterday, she began having nausea, vomiting, and diarrhea. She felt flushed and feverish as well. States she is having loose stool, multiple episodes and feels dehydrated. Additionally, she had nausea and vomiting up to 5 times. She denies any cough or difficulty breathing, but as she was getting dressed to come to the emergency department, she states she started feeling chest pain. No exacerbating or alleviating factors. [facility] Medical History Wears glasses Depression Anxiety Arthritis Fatty liver Easy bruising Restless legs Migraine headache History of IBS GERD (gastroesophageal reflux disease) CPAP (continuous positive airway pressure) dependence Chronic cough Shortness of breath on exertion Non-smoker History of echocardiogram History of stress test Hypertension Cardiology follow-up encounter History of atrial fibrillation A-fib Pulmonary HTN Sleep apnea Home Medications ???Medication ???Instructions ???Recorded ???Last Taken ???Type rivaroxaban 20 mg tablet (Xarelto) 20 mg PO QPM BLOOD THINNER 03/14/22 12/25/23 History buspirone 5 mg tablet 5 mg PO TID PRN ANXIETY 10/09/23 12/29/23 History cholecalciferol (vitamin D3) 25 25 mcg PO DAILY SUPPLEMENT 10/09/23 12/29/23 History mcg (1,000 unit) tablet (Vitamin D3) cyanocobalamin (vitamin B-12) 1,000 mcg PO DAILY SUPPLEMENT 10/09/23 12/29/23 History 1,000 mcg capsule dofetilide 500 mcg capsule 500 mcg PO BID AFIB 10/09/23 12/29/23 History (Tikosyn) magnesium 250 mg tablet 250 mg PO BID SUPPLEMENT 10/09/23 12/29/23 History potassium chloride 20 mEq 20 meq PO DAILY PRN SUPPLEMENT 10/09/23 12/27/23 History tablet,extended release (K-Tab) tadalafil 20 mg tablet 20 mg PO BID LUNGS 10/09/23 12/29/23 History digoxin 125 mcg (0.125 mg) tablet 125 mcg PO DAILY 04/23/24 Unknown History aspirin 81 mg chewable tablet 1 tab PO DAILY 07/16/24 Unknown History cefdinir 300 mg capsule 300 mg PO BID #14 caps 07/16/24 Unknown Rx diltiazem HCl 30 mg tablet 30 mg PO Q6H PRN afib 07/16/24 Unknown History (Cardizem) metronidazole 500 mg tablet 500 mg PO TID #21 tabs 07/16/24 Unknown Rx ondansetron 4 mg disintegrating 4 mg PO Q8H PRN nausea and 07/16/24 Unknown Rx tablet vomiting #12 tabs Allergy/AdvReac Type Severity Reaction Status Date / Time codeine Allergy Other Verified 07/16/24 01:24 ibuprofen (From Motrin) Allergy Hives Verified 07/16/24 01:24 Iodinated Contrast Media (CT) Allergy Chest Verified 07/16/24 01:24 tightness morphine Allergy Hives Verified 07/16/24 01:24 phenytoin sodium (From Allergy Other Verified 07/16/24 01:24 Dilantin) phenytoin sodium extended Allergy Other Verified 07/16/24 01:24 (From Dilantin) sulfamethoxazole (From Allergy Hives Verified 07/16/24 01:24 Bactrim) trimethoprim (From Bactrim) Allergy Hives Verified 07/16/24 01:24 Family History Father Lung cancer Obesity Aunt Diabetes CAD (coronary artery disease) Mother VSD (ventricular septal defect) Thyroid disorder Brother Leukemia Grandmother Breast cancer Surgical History History of cardiac catheterization History of atrial septal defect repair ( 2021) S/P ERCP S/P laparoscopic cholecystectomy Hx of maze procedure Hx of tubal ligation History of bunionectomy Hx of tonsillectomy Social History Smoking Status: Never smoker ROS ROS ED ROS Narrative Constitutional: Positive fever, no chills. Feels dehydrated. HEENT: No sore throat. No neck pain. No loss of vision. No rhinorrhea. Cardiovascular: Positive chest pain. No palpitations. No pedal edema. Respiratory: No cough, no shortness of breath. Abdominal: No abdominal pain. 5 episodes of nausea and vomiting. Multiple episodes of diarrhea. Genitourinary: No dysuria. No hematuria. Musculoskeletal: No myalgias. No arthralgias. Neurologic: No headaches. No dizziness. No lightheadedness. Skin: No rash. No change in color. EXAM Physical Exam Narrative Exam Narrative: Temperature 100.4 ???F. Vital signs noted. Nontoxic (more content not included)... Normal [facility] L501.4020on 07-16-2024 TROPONIN-I HS 6 pg/mL Normal 3.0-54.0 [facility] Comment on above: Order Comment: 'TROP ' Serial specimen #1, #2 or #3: 1 Result Comment: Marco A tanner Note: New Test Units and Gender Specific Reference Ranges. For more information see Policy Stat Procedure [place] High Sensitivity Troponin (TNIH) and attachments. Performed By: #### M 100.2200, L400.0001, M100.678 #### [facility] [place], [address] Lactic Acidon 07-16-2024 Lactate [Moles/Vol] 0.8 mmol/L Normal 0.4-1.9 [facility] Comment on above: Order Comment: Y Performed By: #### M 100.2200, L400.0001, M100.678 #### [facility] [address] [place], [address] Lipaseon 07-16-2024 Lipase [Catalytic activity/Vol] 34 U/L Normal 13-75 [facility] Comment on above: Order Comment: 'TROP ' Serial specimen #1, #2 or #3: 1 Result Comment: Marco A tanner note: LIPASE revised reference range effective 23. New Lipase methodology. Expected to produce lower values than the previous assay method. NEW Reference Range: 13 - 75 U/L Performed By: #### M 100.2200, L400.0001, M100.678 #### [facility] [address] [place], [address] M100.678on 07-16-2024 M100.678 Pending SARS-CoV-2 (COVID 19) Negative INFLUENZA A Negative INFLUENZA B Negative RSV PCR Negative Normal [facility] Comment on above: Performed By: #### M 100.2200, L400.0001, M100.678 #### [facility] [address] [place], [address] Urinalysis, Completeon 07-16 BACTERIA 4+ /hpf Normal None Seen [facility] Comment on above: Order Comment: COLLE CTOR TO SPECIFY Performed By: #### M 100.2200, L400.0001, M100.678 #### [facility] [address] [place], [address] EPI,SQUAMOUS 10-25 SEEN Normal 5-10 [facility] Comment on above: Order Comment: COLLE CTOR TO SPECIFY Performed By: #### M 100.2200, L400.0001, M100.678 #### [facility] [address] [place], [address] Mucus Ql (Urine sed) 1+ /hpf Normal [facility] Comment on above: Order Comment: MELI CTOR TO SPECIFY Performed By: #### M 100.2200, L400.0001, M100.678 #### [facility] [address] [place], [address] RBC 5-10 SEEN Normal 0-5 [facility] Comment on above: Order Comment: MELI CTOR TO SPECIFY Performed By: #### M 100.2200, L400.0001, M100.678 #### [facility] [address] [place], [address] WBC 25-50 SEEN Normal 0-5 [facility] Comment on above: Order Comment: [facility] CTOR TO SPECIFY Performed By: #### M 100.2200, L400.0001, M100.678 #### [facility] [address] [place], [address] BILIRUBIN URINE 1 mg/dL Abnormal Negative [facility] Comment on above: Order Comment: COLLE CTOR TO SPECIFY Result Comment: COLO R OF URINE MAY AFFECT DIPSTICK RESULTS. Performed By: #### M 100.2200, L400.0001, M100.678 #### [facility] [address] [place], [address] Clarity (U) Clear Normal Clear [facility] Comment on above: Order Comment: MELI CTOR TO SPECIFY Performed By: #### M 100.2200, L400.0001, M100.678 #### [facility] [address] [place], [address] Color (U) Yellow Normal Yellow [facility] Comment on above: Order Comment: MELI CTOR TO SPECIFY Performed By: #### M 100.2200, L400.0001, M100.678 #### [facility] [address] [place], [address] GLUCOSE, UR Normal Normal Normal [facility] Comment on above: Order Comment: MELI CTOR TO SPECIFY Performed By: #### M 100.2200, L400.0001, M100.678 #### [facility] [address] [place], [address] KETONE UR 15 mg/dl Abnormal Negative [facility] Comment on above: Order Comment: MELI CTOR TO SPECIFY Performed By: #### M 100.2200, L400.0001, M100.678 #### [facility] [address] [place], [address] LEUK ESTERASE 500 /ul Abnormal Negative [facility] Comment on above: Order Comment: MELI CTOR TO SPECIFY Performed By: #### M 100.2200, L400.0001, M100.678 #### [facility] [address] [place], [address] Nitrite Ql (U) Negative Normal Negative [facility] Comment on above: Order Comment: MELI CTOR TO SPECIFY Performed By: #### M 100.2200, L400.0001, M100.678 #### [facility] [address] [place], [address] OCCULT BLOOD-UR 25 /ul Abnormal Negative [facility] Comment on above: Order Comment: MELI CTOR TO SPECIFY Performed By: #### M 100.2200, L400.0001, M1.678 #### [facility] [address] [place], [address] pH UR 6.0 Normal 5.0 - 8.0 [facility] Comment on above: Order Comment: MELI CTOR TO SPECIFY Performed By: #### M 100.2200, L400.0001, M100.678 #### [facility] [address] [place], [address] PROT DIPSTX 30 mg/dl Abnormal Negative [facility] Comment on above: Order Comment: COLLE CTOR TO SPECIFY Performed By: #### M 100.2200, L400.0001, M100.678 #### [facility] [address] [place], [address] SP.GR. DIPSTX 1.020 Normal 1.002-1.030 [facility] Comment on above: Order Comment: MELI CTOR TO SPECIFY Performed By: #### M 100.2200, L400.0001, M100.678 #### [facility] [address] [place], [address] UROBILI Normal Normal Normal [facility] Comment on above: Order Comment: COLLE CTOR TO SPECIFY Performed By: #### M 100.2200, L400.0001, M100.678 #### [facility] [address] [place], [address] .Auto Diffon 05-26-2024 Basophil, Absolute 0.0 10 3/mcL Normal 0.0-0.3 [facility] ([place]) Comment on above: Performed By: #### A DIFF, CBC, GFR, MG, BMP, ANEU #### [address] [address] Basophils/100 WBC (Bld) 0.6 % Normal 0.0-2.5 [facility] ([place]) Comment on above: Performed By: #### A DIFF, CBC, GFR, MG, BMP, ANEU #### [address] [address] Eosinophil, Absolute 0.2 10 3/mcL Normal 0.0-0.7 [facility] ([place]) Comment on above: Performed By: #### A DIFF, CBC, GFR, MG, BMP, ANEU #### [address] [address] Eosinophils/100 WBC (Bld) 2.8 % Normal 0.0-6.0 [facility] ([place]) Comment on above: Performed By: #### A DIFF, CBC, GFR, MG, BMP, ANEU #### [address] [address] Lymphocyte, Absolute 1.5 10 3/mcL Normal 0.9-4.3 [facility] ([place]) Comment on above: Performed By: #### A DIFF, CBC, GFR, MG, BMP, ANEU #### [address] [address] Lymphocytes/100 WBC (Bld) 21.6 % Normal 20.0-40.0 [facility] ([place]) Comment on above: Performed By: #### A DIFF, CBC, GFR, MG, BMP, ANEU #### [address] [address] Monocyte, Absolute 0.5 10 3/mcL Normal 0.1-1.4 [facility] ([place]) Comment on above: Performed By: #### A DIFF, CBC, GFR, MG, BMP, ANEU #### [address] [address] Monocytes/100 WBC (Bld) 7.9 % Normal 2.0-13.0 [facility] ([place]) Comment on above: Performed By: #### A DIFF, CBC, GFR, MG, BMP, ANEU #### [address] [address] Neutrophils/100 WBC (Bld) 67.1 % Normal 50.0-75.0 [facility] ([place]) Comment on above: Performed By: #### A DIFF, CBC, GFR, MG, BMP, ANEU #### [address] [address] .GFRon 05-26-2024 GFR >60 Normal [facility] ([place]) Comment on above: Result Comment: GFR Population [...] DIFF, CBC, GFR, MG, BMP, ANEU #### [address] [address] GFR Non- >60 Normal [facility] ([place]) Comment on above: Result Comment: GFR Population [...] DIFF, CBC, GFR, MG, BMP, ANEU #### [address] [address] .NEUABSon 05-26-2024 Neutrophil, Absolute 4.6 10 3/mcL Normal 2.3-8.1 [facility] ([place]) Comment on above: Performed By: #### A DIFF, CBC, GFR, MG, BMP, ANEU #### [address] [address] BMPon 05-26-2024 BUN/Creatinine Ratio 24.3 ratio High 10.0-22.0 [facility] ([place]) Comment on above: Performed By: #### A DIFF, CBC, GFR, MG, BMP, ANEU #### [address] [address] Calcium [Mass/Vol] 9.1 mg/dL Normal 8.7-10.4 [facility] ([place]) Comment on above: Performed By: #### A DIFF, CBC, GFR, MG, BMP, ANEU #### [address] [address] Chloride [Moles/Vol] 107 mmol/L Normal 98-110 [facility] ([place]) Comment on above: Performed By: #### A DIFF, CBC, GFR, MG, BMP, ANEU #### [address] [address] CO2 [Moles/Vol] 28 mmol/L Normal 22-32 [facility] ([place]) Comment on above: Performed By: #### A DIFF, CBC, GFR, MG, BMP, ANEU #### [address] [address] Creatinine [Mass/Vol] 0.70 mg/dL Normal 0.50-1.20 [facility] ([place]) Comment on above: Result Comment: Test ing performed on Adeyoh analyzer using enzymatic creatinine methodology. Performed By: #### A DIFF, CBC, GFR, MG, BMP, ANEU #### [place] [address] Electrolyte Balance 7.0 mEq/L Normal 4.0-15.0 [facility] ([place]) Comment on above: Performed By: #### A DIFF, CBC, GFR, MG, BMP, ANEU #### [place] [id number] Glucose [Mass/Vol] 90 mg/dL Normal 82-115 [facility] ([place]) Comment on above: Performed By: #### A DIFF, CBC, GFR, MG, BMP, ANEU #### [place] [id number] Potassium [Moles/Vol] 3.8 mmol/L Normal 3.5-5.0 [facility] ([place]) Comment on above: Performed By: #### A DIFF, CBC, GFR, MG, BMP, ANEU #### [place] [id number] Sodium [Moles/Vol] 142 mmol/L Normal 136-145 [facility] ([place]) Comment on above: Performed By: #### A DIFF, CBC, GFR, MG, BMP, ANEU #### [address] [address] Urea nitrogen [Mass/Vol] 17.0 mg/dL Normal 8.0-22.0 [facility] ([place]) Comment on above: Performed By: #### A DIFF, CBC, GFR, MG, BMP, ANEU #### [place] [address] CBCon 05-26-2024 Erythrocyte distribution width (RBC) [Ratio] 14.5 % Normal 11.5-15.5 [facility] ([place]) Comment on above: Performed By: #### A DIFF, CBC, GFR, MG, BMP, ANEU #### [place] [address] Hematocrit (Bld) [Volume fraction] 37.3 % Normal 34.0-46.0 [facility] ([place]) Comment on above: Performed By: #### A DIFF, CBC, GFR, MG, BMP, ANEU #### [place] [address] Hgb 13.2 G/dL Normal 12.0-16.0 [facility] ([place]) Comment on above: Performed By: #### A DIFF, CBC, GFR, MG, BMP, ANEU #### [place] [address] MCH (RBC) [Entitic mass] 32.3 pg Normal 27.0-33.0 [facility] ([place]) Comment on above: Performed By: #### A DIFF, CBC, GFR, MG, BMP, ANEU #### [place] [address] MCHC 35.4 G/dL Normal 32.0-36.0 [facility] ([place]) Comment on above: Performed By: #### A DIFF, CBC, GFR, MG, BMP, ANEU #### [place] [address] MCV (RBC) [Entitic vol] 91.1 fL Normal 80.0-99.0 [facility] ([place]) Comment on above: Performed By: #### A DIFF, CBC, GFR, MG, BMP, ANEU #### [place] [address] Platelet 154 10 3/mcL Normal 150-450 [facility] ([place]) Comment on above: Performed By: #### A DIFF, CBC, GFR, MG, BMP, ANEU #### [place] [address] Platelet mean volume (Bld) [Entitic vol] 8.2 fL Normal 6.6-10.5 [facility] ([place]) Comment on above: Performed By: #### A DIFF, CBC, GFR, MG, BMP, ANEU #### [place] [address] RBC 4.09 10 6/mcL Low 4.10-5.30 [facility] ([place]) Comment on above: Performed By: #### A DIFF, CBC, GFR, MG, BMP, ANEU #### [place] [address] WBC 6.8 10 3/mcL Normal 4.5-10.8 [facility] ([place]) Comment on above: Performed By: #### A DIFF, CBC, GFR, MG, BMP, ANEU #### [place] [address] LABORATORYOrdered By: SYSTEM SYSTEM on 05-26-2024 Basophils (Bld) [#/Vol] 0.0 103/mcL Normal 0.0 - 0.3 10^3/mcL Workflow SS Basophils/100 WBC (Bld) 0.6 % Normal 0.0 - 2.5 % Workflow SS Calcium [Mass/Vol] 9.1 mg/dL Normal 8.7 - 10. 4 mg/dL ADM SS Chloride [Moles/Vol] 107 mmol/L Normal 98 - 11 0 mEq/L ADM SS CO2 [Moles/Vol] 28 mmol/L Normal 22 - 32 mEq/L ADM SS Creatinine [Mass/Vol] 0.70 mg/dL Normal 0.50 - 1.20 mg/dL ADM SS Comment on above: Interpretive Data: T esting performed on Adeyoh analyzer using enzymatic creatinine methodology. Electrolyte Balance 7.0 mEq/L Normal 4.0 - 15 .0 mEq/L ADM SS Eosinophils (Bld) [#/Vol] 0.2 103/mcL Normal 0.0 - 0.7 10^3/mcL AH Workflow SS Eosinophils/100 WBC (Bld) 2.8 % Normal 0.0 - 6.0 % Workflow Erythrocyte distribution width (RBC) [Ratio] 14.5 % Normal 11.5 - 15.5 % Workflow GFR/1.73 sq M.predicted among blacks MDRD (S/P/Bld) [Vol rate/Area] ml/min/1.73sqm Invalid Interpretation Code [facility] Comment on above: Interpretive Data: GFR Population [...] (S/P/Bld) [Vol rate/Area] ml/min/1.73sqm Invalid Interpretation Code [facility] Comment on above: Interpretive Data: GFR Population [...] 90 mg/dL Normal 82 - 115 mg/dL [facility] Hematocrit (Bld) [Volume fraction] 37.3 % Normal 34.0 - 46.0 % Workflow Hemoglobin (Bld) [Mass/Vol] 13.2 G/dL Normal 12.0 - 16.0 G/dL AH Workflow SS Lymphocytes (Bld) [#/Vol] 1.5 103/mcL Normal 0.9 - 4.3 10^3/mcL AH Workflow SS Lymphocytes/100 WBC (Bld) 21.6 % Normal 20.0 - 40.0 % AH Workflow SS Magnesium [Mass/Vol] 1.8 mg/dL Normal 1.6 - 2 .4 mg/dL AH ADM SS MCH (RBC) [Entitic mass] 32.3 [...] 05-26-2024 Magnesium [Mass/Vol] 1.8 mg/dL Normal 1.6-2.4 [facility] ([place]) Comment on above: Performed By: #### A DIFF, CBC, GFR, MG, BMP, ANEU #### [address] [address] .Auto Diffon 05-25-2024 Basophil, Absolute 0.0 10 3/mcL Normal 0.0-0.3 [facility] ([place]) Comment on above: Performed By: #### C BC, GFR, BMP, MG, ADIFF, ANEU #### [address] [address] Basophils/100 WBC (Bld) 0.5 % Normal 0.0-2.5 [facility] ([place]) Comment on above: Performed By: #### C BC, GFR, BMP, MG, ADIFF, ANEU #### [address] [address] Eosinophil, Absolute 0.2 10 3/mcL Normal 0.0-0.7 [facility] ([place]) Comment on above: Performed By: #### C BC, GFR, BMP, MG, ADIFF, ANEU #### [address] [address] Eosinophils/100 WBC (Bld) 2.8 % Normal 0.0-6.0 [facility] ([place]) Comment on above: Performed By: #### C BC, GFR, BMP, MG, ADIFF, ANEU #### [address] [address] Lymphocyte, Absolute 1.6 10 3/mcL Normal 0.9-4.3 [facility] ([place]) Comment on above: Performed By: #### C BC, GFR, BMP, MG, ADIFF, ANEU #### [address] [address] Lymphocytes/100 WBC (Bld) 25.8 % Normal 20.0-40.0 [facility] ([place]) Comment on above: Performed By: #### C BC, GFR, BMP, MG, ADIFF, ANEU #### [address] [address] Monocyte, Absolute 0.4 10 3/mcL Normal 0.1-1.4 [facility] ([place]) Comment on above: Performed By: #### C BC, GFR, BMP, MG, ADIFF, ANEU #### [address] [address] Monocytes/100 WBC (Bld) 6.9 % Normal 2.0-13.0 [facility] ([place]) Comment on above: Performed By: #### C BC, GFR, BMP, MG, ADIFF, ANEU #### [address] [address] Neutrophils/100 WBC (Bld) 64.0 % Normal 50.0-75.0 [facility] ([place]) Comment on above: Performed By: #### C BC, GFR, BMP, MG, ADIFF, ANEU #### [address] [address] .GFRon 05-25-2024 GFR >60 Normal [facility] ([place]) Comment on above: Result Comment: GFR Population [...] DIFF, CBC, GFR, MG, BMP, ANEU #### [address] [address] GFR Non- >60 Normal [facility] ([place]) Comment on above: Result Comment: GFR Population [...] DIFF, CBC, GFR, MG, BMP, ANEU #### [address] [address] .NEUABSon 05-25-2024 Neutrophil, Absolute 4.1 10 3/mcL Normal 2.3-8.1 [facility] ([place]) Comment on above: Performed By: #### C BC, GFR, BMP, MG, ADIFF, ANEU #### [address] [address] BMPon 05-25-2024 BUN/Creatinine Ratio 13.2 ratio Normal 10.0-22.0 [facility] ([place]) Comment on above: Performed By: #### A DIFF, CBC, GFR, MG, BMP, ANEU #### [address] [address] Calcium [Mass/Vol] 9.4 mg/dL Normal 8.7-10.4 [facility] ([place]) Comment on above: Performed By: #### A DIFF, CBC, GFR, MG, BMP, ANEU #### [address] [address] Chloride [Moles/Vol] 108 mmol/L Normal 98-110 [facility] ([place]) Comment on above: Performed By: #### A DIFF, CBC, GFR, MG, BMP, ANEU #### [address] [address] CO2 [Moles/Vol] 27 mmol/L Normal 22-32 [facility] ([place]) Comment on above: Performed By: #### A DIFF, CBC, GFR, MG, BMP, ANEU #### [address] [address] Creatinine [Mass/Vol] 0.76 mg/dL Normal 0.50-1.20 [facility] ([place]) Comment on above: Result Comment: Test ing performed on Adeyoh analyzer using enzymatic creatinine methodology. Performed By: #### A DIFF, CBC, GFR, MG, BMP, ANEU #### [address] [address] Electrolyte Balance 7.0 mEq/L Normal 4.0-15.0 [facility] ([place]) Comment on above: Performed By: #### A DIFF, CBC, GFR, MG, BMP, ANEU #### [place] [id number] Glucose [Mass/Vol] 98 mg/dL Normal 82-115 [facility] ([place]) Comment on above: Performed By: #### A DIFF, CBC, GFR, MG, BMP, ANEU #### [place] [id number] Potassium [Moles/Vol] 3.9 mmol/L Normal 3.5-5.0 [facility] ([place]) Comment on above: Performed By: #### A DIFF, CBC, GFR, MG, BMP, ANEU #### [place] [id number] Sodium [Moles/Vol] 142 mmol/L Normal 136-145 [facility] ([place]) Comment on above: Performed By: #### A DIFF, CBC, GFR, MG, BMP, ANEU #### [place] [id number] Urea nitrogen [Mass/Vol] 10.0 mg/dL Normal 8.0-22.0 [facility] ([place]) Comment on above: Performed By: #### A DIFF, CBC, GFR, MG, BMP, ANEU #### [address] [address] CBCon 05-25-2024 Erythrocyte distribution width (RBC) [Ratio] 15.2 % Normal 11.5-15.5 [facility] ([place]) Comment on above: Performed By: #### C BC, GFR, BMP, MG, ADIFF, ANEU #### [facility] [address] [place], [place] [address] Hematocrit (Bld) [Volume fraction] 35.9 % Normal 34.0-46.0 [facility] ([place]) Comment on above: Performed By: #### C BC, GFR, BMP, MG, ADIFF, ANEU #### [address] [address] Hgb 12.9 G/dL Normal 12.0-16.0 [facility] ([place]) Comment on above: Performed By: #### C BC, GFR, BMP, MG, ADIFF, ANEU #### [place] [address] MCH (RBC) [Entitic mass] 32.9 pg Normal 27.0-33.0 [facility] ([place]) Comment on above: Performed By: #### C BC, GFR, BMP, MG, ADIFF, ANEU #### [place] [address] MCHC 36.1 G/dL High 32.0-36.0 [facility] ([place]) Comment on above: Performed By: #### C BC, GFR, BMP, MG, ADIFF, ANEU #### [place] [address] MCV (RBC) [Entitic vol] 91.2 fL Normal 80.0-99.0 [facility] ([place]) Comment on above: Performed By: #### C BC, GFR, BMP, MG, ADIFF, ANEU #### [place] [id number] Platelet 162 10 3/mcL Normal 150-450 [facility] ([place]) Comment on above: Performed By: #### C BC, GFR, BMP, MG, ADIFF, ANEU #### [place] [address] Platelet mean volume (Bld) [Entitic vol] 8.1 fL Normal 6.6-10.5 [facility] ([place]) Comment on above: Performed By: #### C BC, GFR, BMP, MG, ADIFF, ANEU #### [place] [id number] RBC 3.94 10 6/mcL Low 4.10-5.30 [facility] ([place]) Comment on above: Performed By: #### C BC, GFR, BMP, MG, ADIFF, ANEU #### [address] [address] WBC 6.4 10 3/mcL Normal 4.5-10.8 [facility] ([place]) Comment on above: Performed By: #### C BC, GFR, BMP, MG, ADIFF, ANEU #### [address] [address] LABORATORYOrdered By: SYSTEM SYSTEM on 05-25-2024 Basophils (Bld) [#/Vol] 0.0 103/mcL Normal 0.0 - 0.3 10^3/mcL Workflow SS Basophils/100 WBC (Bld) 0.5 % Normal 0.0 - 2.5 % AH Workflow SS Calcium [Mass/Vol] 9.4 mg/dL Normal 8.7 - 10. 4 mg/dL ADM SS Chloride [Moles/Vol] 108 mmol/L Normal 98 - 11 0 mEq/L ADM SS CO2 [Moles/Vol] 27 mmol/L Normal 22 - 32 mEq/L ADM SS Creatinine [Mass/Vol] 0.76 mg/dL Normal 0.50 - 1.20 mg/dL ADM SS Comment on above: Interpretive Data: T esting performed on Adeyoh analyzer using enzymatic creatinine methodology. Electrolyte Balance 7.0 mEq/L Normal 4.0 - 15 .0 mEq/L ADM SS Eosinophils (Bld) [#/Vol] 0.2 103/mcL Normal 0.0 - 0.7 10^3/mcL AH Workflow SS Eosinophils/100 WBC (Bld) 2.8 % Normal 0.0 - 6.0 % AH [...] 98 mg/dL Normal 82 - 115 mg/dL ADM SS Hematocrit (Bld) [Volume fraction] 35.9 % Normal 34.0 - 46.0 % Workflow SS Hemoglobin (Bld) [Mass/Vol] 12.9 G/dL Normal 12.0 - 16.0 G/dL Workflow SS Lymphocytes (Bld) [#/Vol] 1.6 103/mcL Normal 0.9 - 4.3 10^3/mcL Workflow SS Lymphocytes/100 WBC (Bld) 25.8 % Normal 20.0 - 40.0 % Workflow SS Magnesium [Mass/Vol] 2.0 mg/dL Normal 1.6 - 2 .4 mg/dL ADM SS MCH (RBC) [Entitic mass] 32.9 pg Normal 27.0 - 33.0 pg Workflow SS MCHC 36.1 G/dL High 32.0 [...] 13.2 ratio Normal 10.0 - 22.0 ratio AH ADM SS WBC (Bld) [#/Vol] 6.4 103/mcL Normal 4.5 - 10.8 10^3/mcL AH Workflow SS MGon 05-25-2024 Magnesium [Mass/Vol] 2.0 mg/dL Normal 1.6-2.4 [facility] ([place]) Comment on above: Performed By: #### A DIFF, CBC, GFR, MG, BMP, ANEU #### [address] [address] .Auto Diffon 05-24-2024 Basophil, Absolute 0.0 10 3/mcL Normal 0.0-0.3 [facility] ([place]) Comment on above: Performed By: #### A DIFF, CBC, GFR, MG, BMP, ANEU #### [address] [address] Basophils/100 WBC (Bld) 0.6 % Normal 0.0-2.5 [facility] ([place]) Comment on above: Performed By: #### A DIFF, CBC, GFR, MG, BMP, ANEU #### [address] [address] Eosinophil, Absolute 0.2 10 3/mcL Normal 0.0-0.7 [facility] ([place]) Comment on above: Performed By: #### A DIFF, CBC, GFR, MG, BMP, ANEU #### [address] [address] Eosinophils/100 WBC (Bld) 2.9 % Normal 0.0-6.0 [facility] ([place]) Comment on above: Performed By: #### A DIFF, CBC, GFR, MG, BMP, ANEU #### [address] [address] Lymphocyte, Absolute 1.5 10 3/mcL Normal 0.9-4.3 [facility] ([place]) Comment on above: Performed By: #### A DIFF, CBC, GFR, MG, BMP, ANEU #### [address] [address] Lymphocytes/100 WBC (Bld) 24.8 % Normal 20.0-40.0 [facility] ([place]) Comment on above: Performed By: #### A DIFF, CBC, GFR, MG, BMP, ANEU #### [address] [address] Monocyte, Absolute 0.5 10 3/mcL Normal 0.1-1.4 [facility] ([place]) Comment on above: Performed By: #### A DIFF, CBC, GFR, MG, BMP, ANEU #### [address] [address] Monocytes/100 WBC (Bld) 7.7 % Normal 2.0-13.0 [facility] ([place]) Comment on above: Performed By: #### A DIFF, CBC, GFR, MG, BMP, ANEU #### [address] [address] Neutrophils/100 WBC (Bld) 64.0 % Normal 50.0-75.0 [facility] ([place]) Comment on above: Performed By: #### A DIFF, CBC, GFR, MG, BMP, ANEU #### [address] [address] .GFRon 05-24-2024 GFR >60 Normal [facility] ([place]) Comment on above: Result Comment: GFR Population [...] DIFF, CBC, GFR, MG, BMP, ANEU #### [address] [address] GFR Non- >60 Normal [facility] [place] ([place]) Comment on above: Result Comment: GFR Population [...] DIFF, CBC, GFR, MG, BMP, ANEU #### [address] [address] .NEUABSon 05-24-2024 Neutrophil, Absolute 4.0 10 3/mcL Normal 2.3-8.1 [facility] [place] ([place]) Comment on above: Performed By: #### A DIFF, CBC, GFR, MG, BMP, ANEU #### [address] [address] BMPon 05-24-2024 BUN/Creatinine Ratio 15.0 ratio Normal 10.0-22.0 [facility] [place] ([place]) Comment on above: Performed By: #### A DIFF, CBC, GFR, MG, BMP, ANEU #### [address] [address] Calcium [Mass/Vol] 9.5 mg/dL Normal 8.7-10.4 [facility] ([place]) Comment on above: Performed By: #### A DIFF, CBC, GFR, MG, BMP, ANEU #### [place] [id number] Chloride [Moles/Vol] 108 mmol/L Normal 98-110 [facility] [place] ([place]) Comment on above: Performed By: #### A DIFF, CBC, GFR, MG, BMP, ANEU #### [place] [id number] CO2 [Moles/Vol] 30 mmol/L Normal 22-32 [facility] [place] ([place]) Comment on above: Performed By: #### A DIFF, CBC, GFR, MG, BMP, ANEU #### [address] [address] Creatinine [Mass/Vol] 0.80 mg/dL Normal 0.50-1.20 [facility] ([place]) Comment on above: Result Comment: Test ing performed on Adeyoh analyzer using enzymatic creatinine methodology. Performed By: #### A DIFF, CBC, GFR, MG, BMP, ANEU #### [address] [address] Electrolyte Balance 5.0 mEq/L Normal 4.0-15.0 [facility] ([place]) Comment on above: Performed By: #### A DIFF, CBC, GFR, MG, BMP, ANEU #### [address] [address] Glucose [Mass/Vol] 107 mg/dL Normal 82-115 [facility] ([place]) Comment on above: Performed By: #### A DIFF, CBC, GFR, MG, BMP, ANEU #### [place] [address] Potassium [Moles/Vol] 4.3 mmol/L Normal 3.5-5.0 [facility] ([place]) Comment on above: Performed By: #### A DIFF, CBC, GFR, MG, BMP, ANEU #### [place] [id number] Sodium [Moles/Vol] 143 mmol/L Normal 136-145 [facility] ([place]) Comment on above: Performed By: #### A DIFF, CBC, GFR, MG, BMP, ANEU #### [place] [address] Urea nitrogen [Mass/Vol] 12.0 mg/dL Normal 8.0-22.0 [facility] [place] ([place]) Comment on above: Performed By: #### A DIFF, CBC, GFR, MG, BMP, ANEU #### [place] [address] CBCon 05-24-2024 Erythrocyte distribution width (RBC) [Ratio] 15.2 % Normal 11.5-15.5 [facility] [place] ([place]) Comment on above: Performed By: #### A DIFF, CBC, GFR, MG, BMP, ANEU #### [place] [address] Hematocrit (Bld) [Volume fraction] 37.8 % Normal 34.0-46.0 [facility] [place] ([place]) Comment on above: Performed By: #### A DIFF, CBC, GFR, MG, BMP, ANEU #### [place] [address] Hgb 13.2 G/dL Normal 12.0-16.0 [facility] [place] ([place]) Comment on above: Performed By: #### A DIFF, CBC, GFR, MG, BMP, ANEU #### [place] [address] MCH (RBC) [Entitic mass] 32.0 pg Normal 27.0-33.0 [facility] [place] ([place]) Comment on above: Performed By: #### A DIFF, CBC, GFR, MG, BMP, ANEU #### [place] [address] MCHC 34.9 G/dL Normal 32.0-36.0 [facility] [place] ([place]) Comment on above: Performed By: #### A DIFF, CBC, GFR, MG, BMP, ANEU #### [place] [address] MCV (RBC) [Entitic vol] 91.5 fL Normal 80.0-99.0 [facility] ([place]) Comment on above: Performed By: #### A DIFF, CBC, GFR, MG, BMP, ANEU #### [place] [address] Platelet 163 10 3/mcL Normal 150-450 [facility] [place] ([place]) Comment on above: Performed By: #### A DIFF, CBC, GFR, MG, BMP, ANEU #### [place] [address] Platelet mean volume (Bld) [Entitic vol] 8.2 fL Normal 6.6-10.5 [facility] [place] ([place]) Comment on above: Performed By: #### A DIFF, CBC, GFR, MG, BMP, ANEU #### [place] [address] RBC 4.13 10 6/mcL Normal 4.10-5.30 [facility] [place] ([place]) Comment on above: Performed By: #### A DIFF, CBC, GFR, MG, BMP, ANEU #### [place] [address] WBC 6.2 10 3/mcL Normal 4.5-10.8 [facility] [place] ([place]) Comment on above: Performed By: #### A DIFF, CBC, GFR, MG, BMP, ANEU #### [place] [address] LABORATORYOrdered By: SYSTEM SYSTEM on 05-24-2024 Basophils (Bld) [#/Vol] 0.0 103/mcL Normal 0.0 - 0.3 10^3/mcL AH Workflow SS Basophils/100 WBC (Bld) 0.6 % Normal 0.0 - 2.5 % AH Workflow SS Calcium [Mass/Vol] 9.5 mg/dL Normal 8.7 - 10. 4 mg/dL ADM SS Chloride [Moles/Vol] 108 mmol/L Normal 98 - 11 0 mEq/L ADM SS CO2 [Moles/Vol] 30 mmol/L Normal 22 - 32 mEq/L ADM SS Creatinine [Mass/Vol] 0.80 mg/dL Normal 0.50 - 1.20 mg/dL ADM SS Comment on above: Interpretive Data: T esting performed on Adeyoh analyzer using enzymatic creatinine methodology. Electrolyte Balance 5.0 mEq/L Normal 4.0 - 15 .0 mEq/L ADM SS Eosinophils (Bld) [#/Vol] 0.2 103/mcL Normal 0.0 - 0.7 10^3/mcL Workflow SS Eosinophils/100 WBC (Bld) 2.9 % Normal 0.0 - 6.0 % Workflow [...] 37.8 % Normal 34.0 - 46.0 % Workflow SS Hemoglobin (Bld) [Mass/Vol] 13.2 G/dL Normal 12.0 - 16.0 G/dL Workflow SS Lymphocytes (Bld) [#/Vol] 1.5 103/mcL Normal 0.9 - 4.3 10^3/mcL Workflow SS Lymphocytes/100 WBC (Bld) 24.8 % Normal 20.0 - 40.0 % Workflow SS Magnesium [Mass/Vol] 2.1 mg/dL Normal 1.6 - 2 .4 mg/dL ADM SS MCH (RBC) [Entitic mass] 32.0 pg Normal 27.0 - 33.0 pg Workflow SS MCHC 34.9 G/dL Normal 32.0 - 36.0 G/dL Workflow SS MCV (RBC) [Entitic vol] 91.5 fL Normal 80.0 - 99.0 fL Workflow SS Monocytes (Bld) [#/Vol] 0.5 103/mcL Normal 0.1 - 1.4 10^3/mcL Workflow SS Monocytes/100 WBC (Bld) 7.7 % Normal 2.0 - 13.0 % Workflow SS Natriuretic peptide.B prohormone N-Terminal IA [Mass/Vol] 428 pg/mL Normal 0 - 900 pg/mL ADM SS Neutrophils (Bld) [#/Vol] 4.0 103/mcL [...] 4.3 mmol/L Normal 3.5 - 5.0 mEq/L ADM SS RBC (Bld) [#/Vol] 4.13 106/mcL Normal 4.10 - 5.3 0 10^6/mcL AH Workflow SS Sodium [Moles/Vol] 143 mmol/L Normal 136 - 145 mEq/L ADM SS Urea nitrogen [Mass/Vol] 12.0 mg/dL Normal 8.0 - 22.0 mg/dL ADM SS Urea nitrogen/Creatinine [Mass ratio] 15.0 ratio Normal 10.0 - 22.0 ratio ADM SS WBC (Bld) [#/Vol] 6.2 103/mcL Normal 4.5 - 10.8 10^3/mcL Workflow SS MGon 05-24-2024 Magnesium [Mass/Vol] 2.1 mg/dL Normal 1.6-2.4 [facility] ([place]) Comment on above: Performed By: #### A DIFF, CBC, GFR, MG, BMP, ANEU #### [address] [address] PBNPon 05-24-2024 Natriuretic peptide B (Bld) [Mass/Vol] 428 pg/mL Normal 0-900 [facility] [place] ([place]) Comment on above: Performed By: #### A DIFF, CBC, GFR, MG, BMP, ANEU #### [address] [address] .Auto Diffon 05-23-2024 Basophil, Absolute 0.1 10 3/mcL Normal 0.0-0.3 [facility] ([place]) Comment on above: Performed By: #### A DIFF, CBC, GFR, MG, BMP, ANEU #### [address] [address] Basophils/100 WBC (Bld) 1.0 % Normal 0.0-2.5 [facility] ([place]) Comment on above: Performed By: #### A DIFF, CBC, GFR, MG, BMP, ANEU #### [address] [address] Eosinophil, Absolute 0.1 10 3/mcL Normal 0.0-0.7 [facility] ([place]) Comment on above: Performed By: #### A DIFF, CBC, GFR, MG, BMP, ANEU #### [address] [address] Eosinophils/100 WBC (Bld) 1.8 % Normal 0.0-6.0 [facility] [place] ([place]) Comment on above: Performed By: #### A DIFF, CBC, GFR, MG, BMP, ANEU #### [address] [address] Lymphocyte, Absolute 1.3 10 3/mcL Normal 0.9-4.3 [facility] [place] ([place]) Comment on above: Performed By: #### A DIFF, CBC, GFR, MG, BMP, ANEU #### [address] [address] Lymphocytes/100 WBC (Bld) 20.4 % Normal 20.0-40.0 [facility] [place] ([place]) Comment on above: Performed By: #### A DIFF, CBC, GFR, MG, BMP, ANEU #### [address] [address] Monocyte, Absolute 0.4 10 3/mcL Normal 0.1-1.4 [facility] ([place]) Comment on above: Performed By: #### A DIFF, CBC, GFR, MG, BMP, ANEU #### [address] [address] Monocytes/100 WBC (Bld) 7.0 % Normal 2.0-13.0 [facility] ([place]) Comment on above: Performed By: #### A DIFF, CBC, GFR, MG, BMP, ANEU #### [address] [address] Neutrophils/100 WBC (Bld) 69.8 % Normal 50.0-75.0 [facility] [place] ([place]) Comment on above: Performed By: #### A DIFF, CBC, GFR, MG, BMP, ANEU #### [address] [address] .GFRon 05-23-2024 GFR >60 Normal [facility] ([place]) Comment on above: Result Comment: GFR Population [...] DIFF, CBC, GFR, MG, BMP, ANEU #### [place] [address] GFR Non- >60 Normal [facility] [place] ([place]) Comment on above: Result Comment: GFR Population [...] DIFF, CBC, GFR, MG, BMP, ANEU #### [address] [address] .NEUABSon 05-23-2024 Neutrophil, Absolute 4.3 10 3/mcL Normal 2.3-8.1 [facility] [place] ([place]) Comment on above: Performed By: #### A DIFF, CBC, GFR, MG, BMP, ANEU #### [place] [address] 12 Lead EKGon 05-23-2024 12 Lead EKG [facility] Cardiovascular Services [address] [place] [address] 12 Lead EKG 05/23/24 0320 MR#: [id number] Acct: [id number] Name: YUE ANGULO Rep #: [id number] : 1960 63 From: Mariely Quintanilla MD Attending Dr: Status: DEP ER Ordering Dr: Bhargav Galvan MD Date: 05/23/24 Location: ED Sex: F C Admitted: Test Reason : RHYTHM CHANGE Blood Pressure : / mmHG Vent. Rate : 126 BPM Atrial Rate : 252 BPM P-R Int : 000 ms QRS Dur : 066 ms QT Int : 330 ms P-R-T Axes : 084 079 004 degrees QTc Int : 477 ms Atrial flutter with 2:1 A-V conduction Cannot rule out Inferior infarct , age undetermined Abnormal ECG Confirmed by MARIELY QUINTANILLA ([id number]), science editor PABLO CHANDLER ([id number]) on 05/26/2024 8:21:20 AM Referred By: Confirmed By:MARIELY QUINTANILLA 05/26/24820 Date Mariely Quintanilla MD CC: Dr. Bhargav Galvan MD; Dr. Lina Zendejas MD Signed Normal [facility] 12 Lead EKG [facility] Cardiovascular Services [address] [place] [address] 12 Lead EKG 05/23/24 0136 MR#: [id number] Acct: [id number] Name: YUE ANGULO Rep #: [id number] : 1960 63 From: Mariely Quintanilla MD Attending Dr: Status: DEP ER Ordering Dr: Bhargav Galvan MD Date: 05/23/24 Location: ED Sex: F C Admitted: Test Reason : PALPITATIONS Blood Pressure : / mmHG Vent. Rate : 113 BPM Atrial Rate : 312 BPM P-R Int : 000 ms QRS Dur : 068 ms QT Int : 348 ms P-R-T Axes : 000 085 007 degrees QTc Int : 477 ms Atrial flutter with variable A-V block Nonspecific ST abnormality Abnormal ECG Confirmed by MARIELY QUINTANILLA ([id number]), science editor PABLO CHANDLER ([id number]) on 05/26/2024 8:21:35 AM Referred By: KRISTEN Confirmed By:MARIELY QUINTANILLA 05/26/24820 Date Mariely Quintanilla MD CC: Dr. Bhargav Galvan MD; Dr. Lina Zendejas MD Signed [facility] BUN/Creatinine Ratio 17.1 ratio Normal 10.0-22.0 [facility] ([place]) Comment on above: Performed By: #### A DIFF, CBC, GFR, MG, BMP, ANEU #### [address] [address] Calcium [Mass/Vol] 9.1 mg/dL Normal 8.7-10.4 [facility] ([place]) Comment on above: Performed By: #### A DIFF, CBC, GFR, MG, BMP, ANEU #### [address] [address] Chloride [Moles/Vol] 111 mmol/L High 98-110 [facility] [place] ([place]) Comment on above: Performed By: #### A DIFF, CBC, GFR, MG, BMP, ANEU #### [address] [address] CO2 [Moles/Vol] 27 mmol/L Normal 22-32 [facility] [place] ([place]) Comment on above: Performed By: #### A DIFF, CBC, GFR, MG, BMP, ANEU #### [address] [address] Creatinine [Mass/Vol] 0.70 mg/dL Normal 0.50-1.20 [facility] ([place]) Comment on above: Result Comment: Test ing performed on Adeyoh analyzer using enzymatic creatinine methodology. Performed By: #### A DIFF, CBC, GFR, MG, BMP, ANEU #### [address] [address] Electrolyte Balance 6.0 mEq/L Normal 4.0-15.0 [facility] ([place]) Comment on above: Performed By: #### A DIFF, CBC, GFR, MG, BMP, ANEU #### [address] [address] Glucose [Mass/Vol] 108 mg/dL Normal 82-115 [facility] ([place]) Comment on above: Performed By: #### A DIFF, CBC, GFR, MG, BMP, ANEU #### [address] [address] Potassium [Moles/Vol] 4.0 mmol/L Normal 3.5-5.0 [facility] ([place]) Comment on above: Performed By: #### A DIFF, CBC, GFR, MG, BMP, ANEU #### [address] [address] Sodium [Moles/Vol] 144 mmol/L Normal 136-145 [facility] ([place]) Comment on above: Performed By: #### A DIFF, CBC, GFR, MG, BMP, ANEU #### [address] [address] Urea nitrogen [Mass/Vol] 12.0 mg/dL Normal 8.0-22.0 [facility] [place] ([place]) Comment on above: Performed By: #### A DIFF, CBC, GFR, MG, BMP, ANEU #### [address] [address] Basic Metabolic Profile (BMP )on 05-23-2024 BUN/CRE 21.2 RATIO High 10- [facility] Comment on above: Order Comment: 1Y Performed By: #### M 100.2200, L400.0001, M100.678 #### [facility] [place], [address] CA,Total 9.7 mg/dL Normal 8.5-10.1 [facility] Comment on above: Order Comment: 1Y Performed By: #### M 100.2200, L400.0001, 8 #### [facility] [address] [place], [address] Chloride [Moles/Vol] 108 mmol/L High 98-107 [facility] Comment on above: Order Comment: 1Y Performed By: #### M 100.2200, L400.0001, #### [facility] [address] [place], [address] CO2 [Moles/Vol] 27.0 mmol/L Normal 21.0-32.0 [facility] Comment on above: Order Comment: 1Y Performed By: #### M 100.2200, L400.0001, #### [facility] [address] [place], [address] Creatinine [Mass/Vol] 0.85 mg/dL Normal 0.55-1.02 [facility] Comment on above: Order Comment: 1Y Result Comment: The validity of the calculated GFR GFRAA in patients over 70 years has not been determined. Clinical correlation is essential. Performed By: #### M 100.2200, L400.0001, #### [facility] [address] [place], [address] ECRCL 70.72 ml/min Normal [facility] Comment on above: Order Comment: 1Y Performed By: #### M 100.2200, L400.0001, #### [facility] [address] [place], [address] EST GFR - AA 87 mL/min Normal >60 [facility] Comment on above: Order Comment: 1Y Result Comment: Afri can Moldovan GFR Calc Performed By: #### M 100.2200, L400.0001, #### [facility] [address] [place], [address] GAP 6 Normal 5-15 [facility] Comment on above: Order Comment: 1Y Performed By: #### M 100.2200, L400.0001, #### [facility] [address] [place], [address] GFR/1.73 sq M.predicted among non-blacks MDRD (S/P/Bld) [Vol rate/Area] 72 mL/min/{1.73_m2} Normal >60 [facility] Comment on above: Order Comment: 1Y Result Comment: Non- GFR Calc Performed By: #### M 100.2200, L400.0001, #### [facility] [address] [place], [address] Glucose [Mass/Vol] 135 mg/dL High 74-106 [facility] Comment on above: Order Comment: 1Y Result Comment: Fast ing Glucose result greater than or equal to 126 mg/dL suggests DIABETES MELLITUS per A.D.A. criteria. Performed By: #### M 100.0, L400.0001, #### [facility] [address] [place], [address] Potassium [Moles/Vol] 3.5 mmol/L Normal 3.5-5.1 [facility] Comment on above: Order Comment: 1Y Performed By: #### M 100.2200, L400.0001, #### [facility] [address] [place], [address] Sodium [Moles/Vol] 141 mmol/L Normal 136-145 [facility] Comment on above: Order Comment: 1Y Performed By: #### M 100.2200, L400.0001, 8 #### [facility] [address] [place], [place], [address] Urea nitrogen [Mass/Vol] 18 mg/dL Normal 7-18 [facility] Comment on above: Order Comment: 1Y Performed By: #### M 100.2200, L400.0001, M100.678 #### [facility] [address] [place], [place], [address] CBCon 05-23-2024 Erythrocyte distribution width (RBC) [Ratio] 14.8 % Normal 11.5-15.5 [facility] [place] ([place]) Comment on above: Performed By: #### A DIFF, CBC, GFR, MG, BMP, ANEU #### [place] [address] Hematocrit (Bld) [Volume fraction] 37.9 % Normal 34.0-46.0 [facility] [place] ([place]) Comment on above: Performed By: #### A DIFF, CBC, GFR, MG, BMP, ANEU #### [place] [id number] Hgb 13.6 G/dL Normal 12.0-16.0 [facility] [place] ([place]) Comment on above: Performed By: #### A DIFF, CBC, GFR, MG, BMP, ANEU #### [place] [address] MCH (RBC) [Entitic mass] 32.1 pg Normal 27.0-33.0 [facility] [place] ([place]) Comment on above: Performed By: #### A DIFF, CBC, GFR, MG, BMP, ANEU #### [place] [id number] MCHC 35.7 G/dL Normal 32.0-36.0 [facility] [place] ([place]) Comment on above: Performed By: #### A DIFF, CBC, GFR, MG, BMP, ANEU #### [place] [address] MCV (RBC) [Entitic vol] 89.8 fL Normal 80.0-99.0 [facility] ([place]) Comment on above: Performed By: #### A DIFF, CBC, GFR, MG, BMP, ANEU #### [address] [address] Platelet 153 10 3/mcL Normal 150-450 [facility] [place] ([place]) Comment on above: Performed By: #### A DIFF, CBC, GFR, MG, BMP, ANEU #### [address] [address] Platelet mean volume (Bld) [Entitic vol] 8.3 fL Normal 6.6-10.5 [facility] [place] ([place]) Comment on above: Performed By: #### A DIFF, CBC, GFR, MG, BMP, ANEU #### [address] [address] RBC 4.23 10 6/mcL Normal 4.10-5.30 [facility] [place] ([place]) Comment on above: Performed By: #### A DIFF, CBC, GFR, MG, BMP, ANEU #### [address] [address] WBC 6.2 10 3/mcL Normal 4.5-10.8 [facility] [place] ([place]) Comment on above: Performed By: #### A DIFF, CBC, GFR, MG, BMP, ANEU #### [address] [address] CBC W/Diff, Automatedon -3 Absolute Lymph 1.77 X10 3/uL Normal 0.83-4.51 [facility] Comment on above: Performed By: #### M 100.2200, L400.0001, M100.678 #### [facility] [address] [facility] [place], [address] Absolute Neut 4.6 X10 3/uL Normal 2.0-7.7 [facility] Comment on above: Performed By: #### M 100.2200, L400.0001, M100.678 #### [facility] [address] [facility] [place], [address] Basophils/100 WBC (Bld) 0.6 % Normal 0-1 [facility] Comment on above: Performed By: #### M 100.2200, L400.0001, M100.678 #### [facility] [address] [place], [address] Eosinophils/100 WBC (Bld) 2.4 % Normal 0-5 [facility] Comment on above: Performed By: #### M 100.2200, L400.0001, .8 #### [facility] [address] [place], [address] Erythrocyte distribution width (RBC) [Ratio] 13.9 % Normal 11.6-14.6 [facility] Comment on above: Performed By: #### M 100.2200, L400.0001, #### [facility] [address] [place], [address] Hematocrit (Bld) [Volume fraction] 38.2 % Normal 37-47 [facility] Comment on above: Performed By: #### M 100.2200, L400.0001, #### [facility] [address] [place], [address] Hemoglobin (Bld) [Mass/Vol] 13.2 g/dL Normal 12.0-15.0 [facility] Comment on above: Performed By: #### M 100.2200, L400.0001, 8 #### [facility] [address] [place], [address] IG% 0.800 Normal 0.0-0.9 [facility] Comment on above: Result Comment: IG% - Immature Granulocytes (promyelocytes, myelocytes and metamyelocytes) > 1% indicates that a LEFT SHIFT is Present. Performed By: #### M 100.2200, L400.0001, M1.8 #### [facility] [address] [place], [address] Lymphocytes/100 WBC (Bld) 24.8 % Normal 19-41 [facility] Comment on above: Performed By: #### M 100.2200, L400.0001, 8 #### [facility] [address] [place], [address] MCH (RBC) [Entitic mass] 30.6 pg Normal 27.0-32.0 [facility] Comment on above: Performed By: #### M 100.2200, L400.0001, #### [facility] [address] [place], [address] MCHC (RBC) [Mass/Vol] 34.6 g/dL Normal 32-36 [facility] Comment on above: Performed By: #### M 100.2200, L400.0001, #### [facility] [address] [place], [address] MCV (RBC) [Entitic vol] 88.6 fL Normal 81-99 [facility] Comment on above: Performed By: #### M 100.2200, L400.0001, #### [facility] [address] [place], [address] Monocytes/100 WBC (Bld) 7.8 % Normal 0-10 [facility] Comment on above: Performed By: #### M 100.2200, L400.0001, #### [facility] [address] [place], [address] Neutrophils/100 WBC (Bld) 63.6 % Normal 47-70 [facility] Comment on above: Performed By: #### M 100.2200, L400.0001, #### [facility] [address] [place], [address] Nucleated RBC (Bld) [#/Vol] 0 10*3/uL Normal 0-5 [facility] Comment on above: Performed By: #### M 100.2200, L400.0001, 8 #### [facility] [address] [place], [address] Platelet mean volume (Bld) [Entitic vol] 10.0 fL Normal 6.2-12.0 [facility] Comment on above: Performed By: #### M 100.2200, L400.0001, M100.678 #### [facility] [address] [place], [address] Platelets (Bld) [#/Vol] 160 10*3/uL Normal 150-450 [facility] Comment on above: Performed By: #### M 100.2200, L400.0001, M100.678 #### [facility] [address] [place], [address] RBC (Bld) [#/Vol] 4.31 10*6/uL Normal 4.2-5.4 [facility] Comment on above: Performed By: #### M 100.2200, L400.0001, M1.8 #### [facility] [address] [place], [address] RDW SD 44.0 fl High 35.1-43.9 [facility] Comment on above: Performed By: #### M 100.2200, L400.0001, M100.678 #### [facility] [address] [place], [address] WBC (Bld) [#/Vol] 7.2 10*3/uL Normal 4.4-11.0 [facility] Comment on above: Performed By: #### M 100.2200, L400.0001, M100.678 #### [facility] [address] [place], [address] Chest 1 View (Portable)on Chest 1 View (Portable) [facility] Imaging Services [address] [place] [address] Chest 1 View (Portable) MR#: [id number] Acct: [id number] Name: YUE ANGULO Rep #: [id number] : 1960 F 63 From: Pedro Luis Velásquez MD PCP: Dr. Lina Zendejas MD Status: REG ER Study: Chest 1 View (Portable) Date of Exam: 05/23/24 Exam# [id number] Ordering Dr: Bhargav Galvan [place] [id number] INDICATION: chest pain EXAMINATION/TECHNIQUE: X-RAY - XR Chest 1 View COMPARISON: October 12, 2023. FINDINGS: LINES/DEVICES: None. LUNGS: No consolidation, edema or effusion. No pneumothorax. MEDIASTINUM AND CARDIOVASCULAR STRUCTURES: Cardiac silhouette not enlarged. Left atrial appendage clip. BONES AND SOFT TISSUES: Unremarkable. RAD/Chest 1 View (Portable) IMPRESSION: No radiographic evidence of acute cardiopulmonary disease. Electronically Signed: Pedro Luis Velásquez MD at 3:43 EDT Reading Location ID and State: [facility] / [place] Tel , Service support , CC: Dr. Bhargav Galvan MD; Dr. Lina Zendejas MD Paper Pattern Folder: Signed [facility] 05-23-2024 LDose Digoxin: See eMAR [facility] ([place]) Comment on above: Performed By: #### A DIFF, CBC, GFR, MG, BMP, ANEU #### [address] [address] Digoxin Level <0.14 Low 0.80-2.00 [facility] [place] ([place]) Comment on above: Performed By: #### A DIFF, CBC, GFR, MG, BMP, ANEU #### [address] [address] Emergency Department Summary on 05-23-2024 Emergency Department Summary [facility] Medical Records Department [address] [place] [address] Emergency Department Summary 05/23/24 MR#: [id number] Acct: [id number] Name: YUE ANGULO Rep #: [id number] : 1960 63 From: Bhargav Galvan MD PCP: Dr. Lina Zendejas MD Status:REG ER Location: ED HPI History of Present Illness Chief Complaint: Palpitations Informant: patient, spouse/S.O. and EMS Narrative Narrative: 63-year-old female woke up in the middle of the night feeling chest heaviness, racing palpitations, lightheadedness like she would faint. She has had some the symptoms before but never woke her up in the middle of the night, and never with the presyncope associated with it. She has a history of atrial fibrillation as well as atrial flutter, it is paroxysmal and she states she usually is in a normal sinus rhythm. She had a maze procedure a year ago. She follows with Dr. Nguyen and cardiovascular consultants in [place]. She states she is feeling a little short of breath. She was fine when she went to bed. She has been anticoagulated on Xarelto for least 2 years. She is still feeling the palpitations but not as bad as she was earlier. No recent medication changes. No recent illness. [facility] Medical History Wears glasses Depression Anxiety Arthritis Fatty liver Easy bruising Restless legs Migraine headache History of IBS GERD (gastroesophageal reflux disease) CPAP (continuous positive airway pressure) dependence Chronic cough Shortness of breath on exertion Non-smoker History of echocardiogram History of stress test Hypertension Cardiology follow-up encounter History of atrial fibrillation A-fib Pulmonary HTN Sleep apnea Home Medications ???Medication ???Instructions ???Recorded ???Last Taken ???Type rivaroxaban 20 mg tablet (Xarelto) 20 mg PO QPM BLOOD THINNER 03/14/22 12/25/23 History buspirone 5 mg tablet 5 mg PO TID PRN ANXIETY 10/09/23 12/29/23 History cholecalciferol (vitamin D3) 25 25 mcg PO DAILY SUPPLEMENT 10/09/23 12/29/23 History mcg (1,000 unit) tablet (Vitamin D3) cyanocobalamin (vitamin B-12) 1,000 mcg PO DAILY SUPPLEMENT 10/09/23 12/29/23 History 1,000 mcg capsule dofetilide 500 mcg capsule 500 mcg PO BID AFIB 10/09/23 12/29/23 History (Tikosyn) magnesium 250 mg tablet 250 mg PO BID SUPPLEMENT 10/09/23 12/29/23 History metoprolol succinate 25 mg 12.5 mg PO QPM BLOOD PRESSURE 10/09/23 12/29/23 History tablet,extended release 24 hr metoprolol succinate 25 mg 25 mg PO DAILY PRN BLOOD PRESSURE 10/09/23 12/29/23 History tablet,extended release 24 hr potassium chloride 20 mEq 20 meq PO DAILY PRN SUPPLEMENT 10/09/23 12/27/23 History tablet,extended release (K-Tab) tadalafil 20 mg tablet 20 mg PO BID LUNGS 10/09/23 12/29/23 History ondansetron 4 mg disintegrating 4 mg PO Q8H PRN PRN Nausea #10 tabs 11/07/23 Unknown Rx tablet digoxin 125 mcg (0.125 mg) tablet 125 mcg PO DAILY 04/23/24 Unknown History aspirin 81 mg tablet,delayed 81 mg PO DAILY 05/23/24 Unknown History release Allergy/AdvReac Type Severity Reaction Status Date / Time codeine Allergy Other Verified 05/23/24 01:34 ibuprofen (From Motrin) Allergy Hives Verified 05/23/24 01:34 Iodinated Contrast Media (CT) Allergy Chest Verified 05/23/24 01:34 tightness morphine Allergy Hives Verified 05/23/24 01:34 phenytoin sodium (From Allergy Other Verified 05/23/24 01:34 Dilantin) phenytoin sodium extended Allergy Other Verified 05/23/24 01:34 (From Dilantin) sulfamethoxazole (From Allergy Hives Verified 05/23/24 01:34 Bactrim) trimethoprim (From Bactrim) Allergy Hives Verified 05/23/24 01:34 Family History Father Lung cancer Obesity Aunt Diabetes CAD (coronary artery disease) Mother VSD (ventricular septal defect) Thyroid disorder Brother Leukemia Grandmother Breast cancer Surgical History History of cardiac catheterization History of atrial septal defect repair ( 2021) S/P ERCP S/P laparoscopic cholecystectomy Hx of maze procedure Hx of tubal ligation History of bunionectomy Hx of tonsillectomy Social History Smoking Status: Never smoker ROS ROS ED Constitutional Constitutional ED: Denies chills or fever(s) Eyes Eyes: Denies change in vision or diplopia ENT ENT ED: Denies rhinorrhea or sore throat Cardiovascular Cardiovascular: Reports as per HPI, chest pain, lightheadedness, palpitations and racing heartbeat; Denies syncope Respiratory/Chest Respiratory/Chest: Reports dyspnea; Denies cough Gastrointestinal Gastrointestinal: Reports nausea; Denies abdominal pain (more content not included)... Normal [facility] L501.4020on 05-23-2024 TROPONIN-I HS 16 pg/mL Normal 3.0-54.0 [facility] Comment on above: Result Comment: Marco A tanner Note: New Test Units and Gender Specific Reference Ranges. For more information see Policy Stat Procedure [place] High Sensitivity Troponin (TNIH) and attachments. Performed By: #### M 100.2200, L400.0001, M100.678 #### [facility] [address], [place], [address] L501.5425on 05-23-2024 TROPONIN-I HS 9 pg/mL Normal 3.0-54.0 [facility] Comment on above: Order Comment: COLLE CTOR TO SPECIFY Result Comment: Marco A tanner Note: New Test Units and Gender Specific Reference Ranges. For more information see Policy Stat Procedure [place] High Sensitivity Troponin (TNIH) and attachments. Performed By: #### M 100.2200, L400.0001, M100.678 #### [facility] [address], [place], [address] LABORATORYOrdered By: SYSTEM SYSTEM on 05-23-2024 Digoxin [Mass/Vol] ng/mL Low 0.80 - 2. 00 ng/mL AH ADM SS Natriuretic peptide.B prohormone N-Terminal IA [...] 05-23-2024 Magnesium [Mass/Vol] 1.9 mg/dL Normal 1.6-2.4 [facility] ([place]) Comment on above: Performed By: #### A DIFF, CBC, GFR, MG, BMP, ANEU #### [place] [address] PBNPon 05-23-2024 Natriuretic peptide B (Bld) [Mass/Vol] 655 pg/mL Normal 0-900 [facility] ([place]) Comment on above: Performed By: #### P BNP #### [place] [address] TSHRon 05-23-2024 TSH 2.781 mIU/mL Normal 0.550-4.780 [facility] ([place]) Comment on above: Result Comment: No te - New Reference Range in effect 20 Performed By: #### A DIFF, CBC, GFR, MG, BMP, ANEU #### [place] [address] Surgery Visit Reporton 04-23 Surgery Visit Report [facility] [address] [place] [address]. [address] [place], [place] [id number] OFFICE VISIT Date of Service: 04/23/24 MR#: [id number] Acct: [id number] Name: YUE ANGULO Rep #: [id number] : 1960 Provider: Dr. Jamar galarza MD Age/Sex: 63/F Location: [facility] Status: Signed with Addenda ADDENDUM by Dr. Jamar Ventura MD on 04/23/24 at 1949 Intake Chief Complaint: Consult for C-Scope and EGD Allergies codeine Allergy (Verified 04/23/24 08:52) Other ibuprofen (From Motrin) Allergy (Verified 04/23/24 08:52) Hives Iodinated Contrast Media (CT) Allergy (Verified 04/23/24 08:52) Chest tightness morphine Allergy (Verified 04/23/24 08:52) Hives phenytoin sodium (From Dilantin) Allergy (Verified 04/23/24 08:52) Other phenytoin sodium extended (From Dilantin) Allergy (Verified 04/23/24 08:52) Other sulfamethoxazole (From Bactrim) Allergy (Verified 04/23/24 08:52) Hives trimethoprim (From Bactrim) Allergy (Verified 04/23/24 08:52) Hives Medications ???Medication ???Instructions ???Recorded ???Confirmed ???Type rivaroxaban 20 mg tablet (Xarelto) 20 mg PO QPM BLOOD THINNER 03/14/22 04/23/24 History buspirone 5 mg tablet 5 mg PO TID PRN ANXIETY 10/09/23 04/23/24 History cholecalciferol (vitamin D3) 25 25 mcg PO DAILY SUPPLEMENT 10/09/23 04/23/24 History mcg (1,000 unit) tablet (Vitamin D3) cyanocobalamin (vitamin B-12) 1,000 mcg PO DAILY SUPPLEMENT 10/09/23 04/23/24 History 1,000 mcg capsule dofetilide 500 mcg capsule 500 mcg PO BID AFIB 10/09/23 04/23/24 History (Tikosyn) magnesium 250 mg tablet 250 mg PO BID SUPPLEMENT 10/09/23 04/23/24 History metoprolol succinate 25 mg 12.5 mg PO QPM BLOOD PRESSURE 10/09/23 04/23/24 History tablet,extended release 24 hr metoprolol succinate 25 mg 25 mg PO DAILY BLOOD PRESSURE 10/09/23 04/23/24 History tablet,extended release 24 hr potassium chloride 20 mEq 20 meq PO DAILY PRN SUPPLEMENT 10/09/23 04/23/24 History tablet,extended release (K-Tab) tadalafil 20 mg tablet 20 mg PO BID LUNGS 10/09/23 04/23/24 History ondansetron 4 mg disintegrating 4 mg PO Q8H PRN PRN Nausea #10 tabs 11/07/23 04/23/24 Rx tablet prednisone 50 mg tablet 50 mg PO DAILY #5 tabs 03/02/24 04/23/24 Rx prednisone 50 mg tablet 50 mg PO DAILY 10 days #10 tabs 03/09/24 04/23/24 Rx digoxin 125 mcg (0.125 mg) tablet 125 mcg PO DAILY 04/23/24 04/23/24 History Assessment and Plan Assessment and Plan (1) History of colon polyps: Status: Acute Comment: Patient is a 63-year-old female who is referred for updated surveillance colonoscopy after she has had previous endoscopy exams with polyps. She is unable to recall specifically how many exams included this finding. She does share that she was on a every 3 year surveillance regimen but fell out of this regimen due to cardiac events that took higher priority. She presently denies any changes to her bowel activity apart from noticing that they are looser after her cholecystectomy. She confirms she in no way finds this distressing. I find her abdominal exam to be benign and the request to be reasonable. I discussed with her the procedure for the colonoscopy here in [place]???including the timeframe for biopsy/polypectomy result reporting. I reminded her that she would need to hold her Xarelto for 3 days prior to the procedure as well as 2 days post in the event of a biopsy. Lastly, I shared with her that she would require a tank driver the day of her procedure. As we prepare for her procedure Mrs. Angulo questions whether or not she should proceed with taking the [facility] or proceed with our split prep out of concern for the sodium content and precipitating cardiac arrhythmias. I have deferred this question back to her rn integrated. Addendum: Outside records were obtained following patient's visit from a scope procedure performed 12/06/2015 that showed evidence of a transverse colon adenomatous polyp finding as well as a hyperplastic polyp. And a microscopic level pathology reported findings of villous tubular architecture with a low-grade dysplasia. Orders: Orders Colonoscopy 06/04/24 04/23/241948 Date Jamar Ventura MD cc: * Signed Intake Vital Signs 03/09/24 06:34 04/23/24 08:51 Height 5 ft 4 in 5 ft 5 in Weight: 179 lb 6 oz BMI 29.8 BP 117/70 Blood Pressure Location Rt brachial Position Sitting Respiration 18 Pulse 67 Pulse Source Monitor Temp 97.4 F L Temp Source Temporal Pulse Oximetry (%) 97 Oxygen Delivery Method room air Intake Visit Reasons: UPPER AND LOWER SCOPE Chief Complaint: Consult for C-Scope and EGD Breaster Required: No Is patient in pain?: No Allergies codeine Allerg (more content not included)... Normal [facility] .GFRon 04-04-2024 GFR 86 ml/min/1.73sqm Normal [facility] ([place]) Comment on above: Result Comment: GFR [...] DIFF, CBC, GFR, MG, BMP, ANEU #### [place] [address] GFR Non- 71 ml/min/1.73sqm Normal [facility] ([place]) Comment on above: Result Comment: GFR [...] DIFF, CBC, GFR, MG, BMP, ANEU #### [address] [address] BMPon 04-04-2024 BUN/Creatinine Ratio 15 ratio Normal 7-27 [facility] ([place]) Comment on above: Performed By: #### A DIFF, CBC, GFR, MG, BMP, ANEU #### [address] [address] Calcium [Mass/Vol] 9.3 mg/dL Normal 8.4-10.2 [facility] ([place]) Comment on above: Performed By: #### A DIFF, CBC, GFR, MG, BMP, ANEU #### [place] [address] Chloride [Moles/Vol] 102 mmol/L Normal 98-107 [facility] ([place]) Comment on above: Performed By: #### A DIFF, CBC, GFR, MG, BMP, ANEU #### [address] [address] CO2 [Moles/Vol] 31 mmol/L Normal 23-31 [facility] ([place]) Comment on above: Performed By: #### A DIFF, CBC, GFR, MG, BMP, ANEU #### [address] [address] Creatinine [Mass/Vol] 0.82 mg/dL Normal 0.55-1.02 [facility] ([place]) Comment on above: Performed By: #### A DIFF, CBC, GFR, MG, BMP, ANEU #### [address] [address] Electrolyte Balance 8.0 mEq/L Normal 4.0-15.0 [facility] ([place]) Comment on above: Performed By: #### A DIFF, CBC, GFR, MG, BMP, ANEU #### [address] [address] Glucose [Mass/Vol] 97 mg/dL Normal 80-115 [facility] ([place]) Comment on above: Performed By: #### A DIFF, CBC, GFR, MG, BMP, ANEU #### [place] [address] Potassium [Moles/Vol] 4.2 mmol/L Normal 3.5-5.1 [facility] ([place]) Comment on above: Performed By: #### A DIFF, CBC, GFR, MG, BMP, ANEU #### [place] [id number] Sodium [Moles/Vol] 141 mmol/L Normal 136-145 [facility] ([place]) Comment on above: Performed By: #### A DIFF, CBC, GFR, MG, BMP, ANEU #### [place] [address] Urea nitrogen [Mass/Vol] 12 mg/dL Normal 7-18 [facility] ([place]) Comment on above: Performed By: #### A DIFF, CBC, GFR, MG, BMP, ANEU #### [place] [address] DIGon 04-04-2024 LDose Digoxin: Unknown Normal [facility] ([place]) Comment on above: Performed By: #### A DIFF, CBC, GFR, MG, BMP, ANEU #### [place] [address] Digoxin Level 0.27 ng/mL Low 0.90-2.00 [facility] ([place]) Comment on above: Performed By: #### A DIFF, CBC, GFR, MG, BMP, ANEU #### [place] [address] LABORATORYOrdered By: SYSTEM SYSTEM on 04-04-2024 Calcium [...] (04/04/24 8:12 AM) Normal AO Chemistry S Emergency Department Summary on 03-09-2024 Emergency Department Summary [facility] Medical Records Department [address] [place] [address] Emergency Department Summary 03/09/24 MR#: [id number] Acct: [id number] Name: YUE ANGULO Rep #: [id number] : 1960 63 From: Julio Kendall MD PCP: Lina Zendejas MD Status:DEP ER Location: ED HPI History of Present Illness Chief Complaint: Rash Informant: patient Onset/Context/Timing Onset: Days Context: Gradual Onset Timing: Continuous Current Severity: Moderate Maximum Severity: Moderate Narrative Narrative: 63-year-old female was doing yard work developed a very itchy rash initially on her face that improved and went away after steroids. Now is on her arms primarily. Denies any illness. Initially was seen in the ER put on prednisone which resolved the initial facial rash. Knots on her arms. She has seen her primary care physician's office in the interim they put her on 40 mg of steroids which has not taken care of the rash. And the antibiotic Keflex. She saw there physician acute care certified nursing assistant. Prior similar symptoms: Yes Recent Illness/Hospitalizatio n: No PFSH PFSH Medical History Wears glasses Depression Anxiety Arthritis Fatty liver Easy bruising Restless legs Migraine headache History of IBS GERD (gastroesophageal reflux disease) CPAP (continuous positive airway pressure) dependence Chronic cough Shortness of breath on exertion Non-smoker History of echocardiogram History of stress test Hypertension Cardiology follow-up encounter History of atrial fibrillation A-fib Pulmonary HTN Sleep apnea Home Medications ???Medication ???Instructions ???Recorded ???Last Taken ???Type rivaroxaban 20 mg tablet (Xarelto) 20 mg PO QPM BLOOD THINNER 03/14/22 12/25/23 History bumetanide 1 mg tablet 1 mg PO DAILY PRN EDEMA 10/09/23 12/29/23 History buspirone 5 mg tablet 5 mg PO TID PRN ANXIETY 10/09/23 12/29/23 History cholecalciferol (vitamin D3) 25 25 mcg PO DAILY SUPPLEMENT 10/09/23 12/29/23 History mcg (1,000 unit) tablet (Vitamin D3) cyanocobalamin (vitamin B-12) 1,000 mcg PO DAILY SUPPLEMENT 10/09/23 12/29/23 History 1,000 mcg capsule dofetilide 500 mcg capsule 500 mcg PO BID AFIB 10/09/23 12/29/23 History (Tikosyn) magnesium 250 mg tablet 250 mg PO BID SUPPLEMENT 10/09/23 12/29/23 History metoprolol succinate 25 mg 12.5 mg PO QPM BLOOD PRESSURE 10/09/23 12/29/23 History tablet,extended release 24 hr metoprolol succinate 25 mg 25 mg PO DAILY BLOOD PRESSURE 10/09/23 12/29/23 History tablet,extended release 24 hr potassium chloride 20 mEq 20 meq PO DAILY PRN SUPPLEMENT 10/09/23 12/27/23 History tablet,extended release (K-Tab) tadalafil 20 mg tablet 20 mg PO BID LUNGS 10/09/23 12/29/23 History ondansetron 4 mg disintegrating 4 mg PO Q8H PRN PRN Nausea #10 tabs 11/07/23 Unknown Rx tablet pantoprazole 40 mg tablet,delayed 40 mg PO DAILY PRN GERD 12/25/23 12/28/23 History release prednisone 50 mg tablet 50 mg PO DAILY #5 tabs 03/02/24 Unknown Rx prednisone 50 mg tablet 50 mg PO DAILY 10 days #10 tabs 03/09/24 Unknown Rx Allergy/AdvReac Type Severity Reaction Status Date / Time codeine Allergy Other Verified 03/09/24 06:42 ibuprofen (From Motrin) Allergy Hives Verified 03/09/24 06:42 Iodinated Contrast Media (CT) Allergy Chest Verified 03/09/24 06:42 tightness morphine Allergy Hives Verified 03/09/24 06:42 phenytoin sodium (From Allergy Other Verified 03/09/24 06:42 Dilantin) phenytoin sodium extended Allergy Other Verified 03/09/24 06:42 (From Dilantin) sulfamethoxazole (From Allergy Hives Verified 03/09/24 06:42 Bactrim) trimethoprim (From Bactrim) Allergy Hives Verified 03/09/24 06:42 Family History Father Lung cancer Obesity Aunt Diabetes CAD (coronary artery disease) Mother VSD (ventricular septal defect) Thyroid disorder Brother Leukemia Grandmother Breast cancer Surgical History History of cardiac catheterization History of atrial septal defect repair ( 2021) S/P ERCP S/P laparoscopic cholecystectomy Hx of maze procedure Hx of tubal ligation History of bunionectomy Hx of tonsillectomy Social History Smoking Status: Never smoker ROS ROS ED ROS Narrative Rash. Itching. Review of Systems ROS Unobtainable: Denies due to encephalopathy Constitutional Constitutional ED: Denies chills or fever(s) Eyes Eyes: Denies blurry vision ENT ENT ED: Denies ear pain Cardiovascular Cardiovascular: Denies chest pain Respiratory/Chest Respiratory/Chest: Denies cough or dyspnea Gastrointestinal Gastrointestinal: Denies abdominal pain (more content not included)... Normal [facility] Emergency Department Summary on 03-02-2024 Emergency Department Summary [facility] Medical Records Department [address] [place] [address] Emergency Department Summary 03/02/24 MR#: [id number] Acct: [id number] Name: YUE ANGULO Rep #: [id number] : 1960 63 From: Casey Bryson DO PCP: Lina Zendejas MD Status:REG ER Location: ED HPI History of Present Illness Chief Complaint: Eye Problem [facility] Medical History (Updated 12/25/23 @ 15:53 by Annamarie Izaguirre) Wears glasses Depression Anxiety Arthritis Fatty liver Easy bruising Restless legs Migraine headache History of IBS GERD (gastroesophageal reflux disease) CPAP (continuous positive airway pressure) dependence Chronic cough Shortness of breath on exertion Non-smoker History of echocardiogram History of stress test Hypertension Cardiology follow-up encounter History of atrial fibrillation A-fib Pulmonary HTN Sleep apnea Home Medications ???Medication ???Instructions ???Recorded ???Last Taken ???Type rivaroxaban 20 mg tablet (Xarelto) 20 mg PO QPM BLOOD THINNER 03/14/22 12/25/23 History bumetanide 1 mg tablet 1 mg PO DAILY PRN EDEMA 10/09/23 12/29/23 History buspirone 5 mg tablet 5 mg PO TID PRN ANXIETY 10/09/23 12/29/23 History cholecalciferol (vitamin D3) 25 25 mcg PO DAILY SUPPLEMENT 10/09/23 12/29/23 History mcg (1,000 unit) tablet (Vitamin D3) cyanocobalamin (vitamin B-12) 1,000 mcg PO DAILY SUPPLEMENT 10/09/23 12/29/23 History 1,000 mcg capsule dofetilide 500 mcg capsule 500 mcg PO BID AFIB 10/09/23 12/29/23 History (Tikosyn) magnesium 250 mg tablet 250 mg PO BID SUPPLEMENT 10/09/23 12/29/23 History metoprolol succinate 25 mg 12.5 mg PO QPM BLOOD PRESSURE 10/09/23 12/29/23 History tablet,extended release 24 hr metoprolol succinate 25 mg 25 mg PO DAILY BLOOD PRESSURE 10/09/23 12/29/23 History tablet,extended release 24 hr potassium chloride 20 mEq 20 meq PO DAILY PRN SUPPLEMENT 10/09/23 12/27/23 History tablet,extended release (K-Tab) tadalafil 20 mg tablet 20 mg PO BID LUNGS 10/09/23 12/29/23 History ondansetron 4 mg disintegrating 4 mg PO Q8H PRN PRN Nausea #10 tabs 11/07/23 Unknown Rx tablet pantoprazole 40 mg tablet,delayed 40 mg PO DAILY PRN GERD 12/25/23 12/28/23 History release prednisone 50 mg tablet 50 mg PO DAILY #5 tabs 03/02/24 Unknown Rx Allergy/AdvReac Type Severity Reaction Status Date / Time codeine Allergy Other Verified 03/02/24 07:36 ibuprofen (From Motrin) Allergy Hives Verified 03/02/24 07:36 Iodinated Contrast Media (CT) Allergy Chest Verified 03/02/24 07:36 tightness morphine Allergy Hives Verified 03/02/24 07:36 phenytoin sodium (From Allergy Other Verified 03/02/24 07:36 Dilantin) phenytoin sodium extended Allergy Other Verified 03/02/24 07:36 (From Dilantin) sulfamethoxazole (From Allergy Hives Verified 03/02/24 07:36 Bactrim) trimethoprim (From Bactrim) Allergy Hives Verified 03/02/24 07:36 Family History Father Lung cancer Obesity Aunt Diabetes CAD (coronary artery disease) Mother VSD (ventricular septal defect) Thyroid disorder Brother Leukemia Grandmother Breast cancer Surgical History (Updated 12/25/23 @ 15:53 by Annamarie Izaguirre) History of cardiac catheterization History of atrial septal defect repair ( 2021) S/P ERCP S/P laparoscopic cholecystectomy Hx of maze procedure Hx of tubal ligation History of bunionectomy Hx of tonsillectomy Social History Smoking Status: Never smoker EXAM Physical Exam Const Vital Signs: 03/02/24 07:36 Temperature 98.1 F Temperature Source Temporal Pulse Rate 63 Respiratory Rate 16 Blood Pressure 92/61 Blood Pressure Mean 71 Pulse Ox 97 Oxygen Delivery Method Room Air MDM MDM MDM Narrative Medical decision making narrative: HISTORY OF PRESENT ILLNESS: 63-year-old female presents with eye problem. Notes eye swollen shut after coming contact with poison marina in her garden. REVIEW OF SYSTEMS: Pertinent positives: Eye problem Pertinent negatives: Fever, vomiting, decreased visual acuity PHYSICAL EXAM: Nursing triage notes reviewed, Vital signs reviewed Constitutional: please see mdm HENT: MMM Eyes: Pupils equal round and reactive to light, Extraocular muscles intact, visual acuity 20/20 bilaterally, conjunctiva noninjected Neck: No stridor, no JVD, full neck ROM Skin: No rash or lesions noted MEDICAL DECISION MAKING: Chief Complaint: Eye complaint External records reviewed: No recent evaluation by ophthalmology Factors affecting care: atrial fibrillation on Xarelto Social determinants of health: none History obtained from others: none Consults: no (more content not included)... Normal [facility] AFB Stain AND Cytologyon ACID FAST STAIN Normal [facility] Comment on above: Order Comment: COLLE CTOR TO SPECIFY Result Comment: Spec imen submitted to Anatomical Pathology Department for testing. Performed By: #### M 100.2200, L400.0001, M100.678 #### [facility] [address] [place], [place], [id number] AFB Stain AND Cytologyon CYTOLOGY,BF/CSF SEE PATHOLOGY REPORT Normal [facility] Comment on above: Order Comment: COLLE CTOR TO SPECIFY Result Comment: Erlin michele submitted to Anatomical Pathology Department for testing. Performed By: #### M 100.2200, L400.0001, M100.678 #### [facility] [address] [place], [place], [id number] ERCP Biliary/Pancreason 04-0 ERCP Biliary/Pancreas [facility] Imaging Services [address] [place] [address] ERCP Biliary/Pancreas MR#: [id number] Acct: [id number] Name: YUE ANGULO Rep #: [id number] : 1960 F 63 From: Jared curtis MD PCP: Care Physician,No Primary Status: [facility] Study: ERCP Biliary/Pancreas Date of Exam: 12/30/23 Exam# [id number] Ordering Dr: Roberto Carlos Waite DO [id number] STUDY: ERCP. REASON FOR EXAM: Female, 63 years old. ERCP STENT REMOVAL FLUOROSCOPY TIME (if supplied): ( 1 minute and 27 seconds ) minutes/seconds. 23.58 mGy. 9 images were submitted. TECHNIQUE: ERCP was performed by the systems programmer analyst. Fluoroscopic services were provided. COMPARISON: None. FINDINGS: Removal of the biliary stent. RAD/ERCP Biliary/Pancreas IMPRESSION: Removal of the biliary stent. Electronically Signed: Jared Porter MD at 12:51 EDT , CC: No Primary Care Physician; Roberto Carlos Waite DO Paper Pattern Folder: Signed Normal [facility] ERCP Reporton 12-30-2023 ERCP Report [facility] Medical Records Department [address] [place] [address] ERCP Report MR#: [id number] Acct: [id number] Name: YUE ANGULO Rep #: [id number] : 1960 63 From: Roberto Carlos Waite DO PCP: Care Physician,No Primary Status:[facility] Patient Name: Yue Angulo Procedure Date: 12/30/2023 10:26 AM Date of : 1960 Age: 63 Procedure: ERCP Indications: Biliary stent removal Providers: Roberto Carlos Waite DO Referring MD: Roberto Carlos Waite DO Medicines: Monitored Anesthesia Care Patient Profile: This is a 63 year old female. Refer to note in patient chart for documentation of history and physical. Patient has symptoms of acute right upper quadrant abdominal pain and acute jaundice. Her most recent ERCP for biliary evaluation, ERCP for stent and ERCP for stone removal. Complications: No immediate complications. Procedure: Pre-Anesthesia Assessment: - Prior to the procedure, a History and Physical was performed, and patient medications and allergies were reviewed. The patient is competent. The risks and benefits of the procedure and the sedation options and risks were discussed with the patient. All questions were answered and informed consent was obtained. Patient identification and proposed procedure were verified by the physician in the pre-procedure area. Mental Status Examination: alert and oriented. Airway Examination: normal oropharyngeal airway and neck mobility. Respiratory Examination: clear to auscultation. CV Examination: normal. Prophylactic Antibiotics: The patient does not require prophylactic antibiotics. Prior Anticoagulants: The patient has taken no anticoagulant or antiplatelet agents. ASA Grade Assessment: II - A patient with mild systemic disease. After reviewing the risks and benefits, the patient was deemed in satisfactory condition to undergo the procedure. The anesthesia plan was to use monitored anesthesia care (MAC). Immediately prior to administration of medications, the patient was re-assessed for adequacy to receive sedatives. The heart rate, respiratory rate, oxygen saturations, blood pressure, adequacy of pulmonary ventilation, and response to care were monitored throughout the procedure. The physical status of the patient was re-assessed after the procedure. After obtaining informed consent, the scope was passed under direct vision. Throughout the procedure, the patient's blood pressure, pulse, and oxygen saturations were monitored continuously. The Duodenoscope was introduced through the mouth, and advanced to the duodenum and used for direct visualization of the bile duct and ventral pancreatic duct. The ERCP was accomplished without difficulty. The patient tolerated the procedure well. Scope In: 10:59:16 AM Scope Out: 11:10:56 AM Total Procedure Duration Time 0 hours 11 minutes 40 seconds Findings: The rib builder film was normal. The esophagus was successfully intubated under direct vision. The scope was advanced to a normal major papilla in the descending duodenum without detailed examination of the pharynx, larynx and associated structures, and upper GI tract. The upper GI tract was grossly normal. The bile duct was deeply cannulated with the short-nosed traction sphincterotome. Contrast was injected. I personally interpreted the bile duct and pancreatic duct images. There was brisk flow of contrast through the ducts. Image quality was excellent. Contrast extended to the entire biliary tree. Opacification of the entire biliary tree except for the gallbladder was successful. The maximum diameter of the ducts was 10 mm. The lower third of the main bile duct contained one stone, which was 6 mm in diameter. The main bile duct was moderately dilated, acquired. The largest diameter was 9 mm. A straight Roadrunner wire was passed into the biliary tree. A 5 mm biliary sphincterotomy was made with a traction (standard) sphincterotome using ERBE electrocautery. There was no post-sphincterotomy bleeding. The biliary tree was swept with a 12 mm balloon starting at the bifurcation. Sludge was swept from the duct. All stones were removed. One stent was removed from the biliary tree using a snare and sent for cytology. The stent was found to be partially occluded via the water column test. Impression: - The entire main bile duct was moderately dilated, acquired. - Choledocholithiasis was found. Complete removal was accomplished by biliary sphincterotomy and balloon extraction. - A biliary sphincterotomy was performed. - The biliary tree was swept. - One stent was removed from the biliary tree. Procedure Code(s): --- Professional --- 06696, Endoscopic retrograde cholangiopancreatograp hy (ERCP); with removal of foreign body(s) or stent(s) from biliary/pancreatic duct(s) 50705, Endoscopic retrogra (more content not included)... Normal [facility] Special Stain Group IIon Special Stain Group II Patient Age/Sex Location Account Attending Physician YUE ANGULO 63/F EN [id number] Roberto Carlos Waite DO Specimen: [id number] Received: 12/30/23-1254 Status: MARQUISE Sommers Num: [id number] Spec Type: Fluid Subm Dr: Roberto Carlos Waite DO HEADER OPERATION: ERCP, stent removal PRE-OP DIAGNOSIS: Nonalcoholic fatty liver disease TISSUE SUBMITTED: Stent for cytology ---- DIAGNOSIS CYTOLOGY Stent fluid for cytology (cytospin and cellblock): Negative for malignant cells. See comment. /mr 12/31/23 COMMENT Clinical correlation and appropriate follow up are necessary. CYTOLOGY STUDY Slides are reviewed. CYTOLOGY GROSS Received is 0.4 ml of thick brownish-green sludge in as stent tube labeled with the patient's name and and designated per the requisition as Stent for cytology. Submitted for cytology preparation including cell block. mr 12/30/23 TC:5 CPT: 61864,68385 Signed (signature on file) Dr. Yohannes Lewis MD 12/31/23 1306 ---- Normal [facility] Comment on above: Performed By: #### M 100.2200, L400.0001, M100.678 #### [facility] [place], [address] Absolute lymphocyte countOrd ered By: Amber Garcia on 11-07-2023 Lymphocytes Auto (Unsp spec) [#/Vol] 1.73 10*3/uL 0.83-4.51 [facility] Automated lymphocyte count a s percentage of total leukocytesOrdered By: Amber Garcia on 11-07-2023 Lymphocytes/100 WBC Auto (Unsp spec) 18.5 % 19-41 [facility] Basophil percentageOrdered B y: Amber Garcia on 11-07-2023 Basophils/100 WBC (Bld) 0.6 % 0-1 [facility] Chloride [Moles/Vol] 109 mmol/L 98-107 [facility] Eosinophils/100 WBC (Bld) 2.6 % 0-5 [facility] Glucose [Mass/Vol] 140 mg/dL 74-106 [facility] Comment on above: Fasting Glucose resu lt greater than or equal to 126 mg/dL suggests DIABETES MELLITUS per A.D.A. criteria. Hemoglobin (Bld) [Mass/Vol] 13.5 g/dL 12.0-15.0 [facility] Monocytes/100 WBC (Bld) 7.4 % 0-10 [facility] Neutrophils (Bld) [#/Vol] 6.6 10*3/uL 2.0-7.7 [facility] Neutrophils/100 WBC (Bld) 70.4 % 47-70 [facility] Potassium [Moles/Vol] 3.9 mmol/L 3.5-5.1 [facility] Sodium [Moles/Vol] 143 mmol/L 136-145 [facility] WBC (Bld) [#/Vol] 9.4 10*3/uL 4.4-11.0 [facility] Determination of erythrocyte mean corpuscular volume (MCV)Ordered By: Amber Garcia on 11-07-2023 MCV (RBC) [Entitic vol] 89.5 fL 81-99 [facility] Erythrocyte distribution wid th ratioOrdered By: Amber Garcia on 11-07-2023 Erythrocyte distribution width (RBC) [Ratio] 14.2 % 11.6-14.6 [facility] Erythrocyte distribution wid th standard deviationOrdered By: Amber Garcia on 11-07-2023 Erythrocyte distribution width (RBC) [Entitic vol] 45.1 fL 35.1-43.9 [facility] Hematocrit Auto (Bld) [Volum e fraction]Ordered By: Amber Garcia on 11-07-2023 Hematocrit (Bld) [Volume fraction] 38.4 % 37-47 [facility] Immature granulocytes/100 WB C Auto (Bld)Ordered By: [facility] on 11-07-2023 Immature granulocytes/100 WBC (Bld) 0.500 % 0.0-0.9 [facility] Comment on above: IG% - Immature Granu locytes (promyelocytes, myelocytes and metamyelocytes) > 1% indicates that a LEFT SHIFT is Present. Laboratory - Chemistry and C hemistry - challengeOrdered By: Amber Garcia on 11-07-2023 CO2 [Moles/Vol] 28.0 mmol/L 21.0-32.0 [facility] Urea nitrogen/Creatinine [Mass ratio] 21.7 mg/mg 10-20 [facility] - Hematology and Cell countsOrdered By: Amber Garcia on 11-07-2023 MCH (RBC) [Entitic mass] 31.5 pg 27.0-32.0 [facility] MCHC (RBC) [Mass/Vol] 35.2 g/dL 32-36 [facility] Nucleated RBC/100 WBC (Bld) [Ratio] 0 % 0-5 [facility] Platelet mean volume (Bld) [Entitic vol] 10.2 fL 6.2-12.0 [facility] Platelets (Bld) [#/Vol] 185 10*3/uL 150-450 [facility] No Panel InformationOrdered By: Amebr Garcia on 11-07-2023 Estimated GFR (MDRD) Amer 80 mL/min >60 [facility] Comment on above: GFR Calc Estimated GFR (MDRD) Non-Af Amer 66 mL/min >60 [facility] Comment on above: Non- GFR Calc Troponin I High Sensitivity 7 pg/mL 3.0-54.0 [facility] Comment on above: Please Note: New Linnea t Units and Gender Specific Reference Ranges. For more information see Policy Stat Procedure [place] High Sensitivity Troponin (TNIH) and attachments. RBC Auto (Bld) [#/Vol]Ordere d By: Amber Garcia on 11-07-2023 RBC (Bld) [#/Vol] 4.29 10*6/uL 4.2-5.4 [facility] Serum or plasma calcium angie urement (mass/volume)Ordered By: Amber Garcia on 11-07-2023 Calcium [Mass/Vol] 9.8 mg/dL 8.5-10.1 [facility] Serum or plasma creatinine m easurement (mass/volume)Ordered By: Amber Garcia on 11-07-2023 Creatinine [Mass/Vol] 0.92 mg/dL 0.55-1.02 [facility] Comment on above: The validity of the calculated GFR & GFRAA in patients over 70 years has not been determined. Clinical correlation is essential. Serum or plasma urea nitroge n measurement (mass/volume)Ordered By: Amber Garcia on 11-07-2023 Urea nitrogen [Mass/Vol] 20 mg/dL 7-18 [facility] Thin prep Papanicolaou smear with manual screeningOrdered By: Amber Garcia on 11-07-2023 Thin prep Papanicolaou smear with manual screening 6 02-04 [facility] Absolute lymphocyte countOrd ered By: Lauren Brewer on 10-12-2023 Lymphocytes Auto (Unsp spec) [#/Vol] 0.81 10*3/uL 0.83-4.51 [facility] Automated lymphocyte count a s percentage of total leukocytesOrdered By: Lauren Brewer on 10-12-2023 Lymphocytes/100 WBC Auto (Unsp spec) 8.8 % 19-41 [facility] Basophil percentageOrdered B y: Lauren Brewer on 10-12-2023 Basophils/100 WBC (Bld) 0.4 % 0-1 [facility] Bilirubin [Mass/Vol] 1.20 mg/dL 0.20-1.00 [facility] Comment on above: For patients on eltr ombopag therapy, use of Dimension [place] TBIL is not recommended. Chloride [Moles/Vol] 112 mmol/L 98-107 [facility] Eosinophils/100 WBC (Bld) 3.3 % 0-5 [facility] Glucose [Mass/Vol] 97 mg/dL 74-106 [facility] Hemoglobin (Bld) [Mass/Vol] 11.5 g/dL 12.0-15.0 [facility] Monocytes/100 WBC (Bld) 5.3 % 0-10 [facility] Neutrophils (Bld) [#/Vol] 7.4 10*3/uL 2.0-7.7 [facility] Neutrophils/100 WBC (Bld) 79.8 % 47-70 [facility] Potassium [Moles/Vol] 3.5 mmol/L 3.5-5.1 [facility] Protein [Mass/Vol] 5.8 g/dL 6.4-8.2 [facility] Sodium [Moles/Vol] 144 mmol/L 136-145 [facility] WBC (Bld) [#/Vol] 9.2 10*3/uL 4.4-11.0 [facility] Determination of erythrocyte mean corpuscular volume (MCV)Ordered By: Lauren Brewer on 10-12-2023 MCV (RBC) [Entitic vol] 89.1 fL 81-99 [facility] Erythrocyte distribution wid th ratioOrdered By: Lauren Brewer on 10-12-2023 Erythrocyte distribution width (RBC) [Ratio] 13.7 % 11.6-14.6 [facility] Erythrocyte distribution wid th standard deviationOrdered By: Lauren Brewer on 10-12-2023 Erythrocyte distribution width (RBC) [Entitic vol] 43.6 fL 35.1-43.9 [facility] Hematocrit Auto (Bld) [Volum e fraction]Ordered By: Lauren Brewer on 10-12-2023 Hematocrit (Bld) [Volume fraction] 32.7 % 37-47 [facility] Immature granulocytes/100 WB C Auto (Bld)Ordered By: Lauren Brewer on 10-12-2023 Immature granulocytes/100 WBC (Bld) 2.400 % 0.0-0.9 [facility] Comment on above: IG% - Immature Granu locytes (promyelocytes, myelocytes and metamyelocytes) > 1% indicates that a LEFT SHIFT is Present. Laboratory - Chemistry and C hemistry - challengeOrdered By: Lauren Brewer on 10-12-2023 Albumin/Globulin [Mass ratio] 1.0 {ratio} 0.9-2.4 [facility] ALP [Catalytic activity/Vol] 108 U/L 45-117 [facility] ALT [Catalytic activity/Vol] 73 U/L 13-56 [facility] CO2 [Moles/Vol] 25.0 mmol/L 21.0-32.0 [facility] Globulin (S) [Mass/Vol] 2.9 g/dL 2.2-4.2 [facility] Urea nitrogen/Creatinine [Mass ratio] 13.5 mg/mg 10-20 [facility] - Chemistry and C hemistry - challengeOrdered By: Mariela Lilly on 10-12-2023 Natriuretic peptide B (Bld) [Mass/Vol] 564.0 pg/mL 0-100 [facility] - Hematology and Cell countsOrdered By: Lauren Brewer on 10-12-2023 MCH (RBC) [Entitic mass] 31.3 pg 27.0-32.0 [facility] MCHC (RBC) [Mass/Vol] 35.2 g/dL 32-36 [facility] Comment on above: Delta: 33.3 on 10/11-0505 Nucleated RBC/100 WBC (Bld) [Ratio] 0 % 0-5 [facility] Platelets (Bld) [#/Vol] 129 10*3/uL 150-450 [facility] No Panel InformationOrdered By: Lauren Brewer on 10-12-2023 Estimated Creatinine Clearance Calc 81.48 ml/min [facility] Estimated GFR (MDRD) Amer 102 mL/min >60 [facility] Comment on above: GFR Calc Estimated GFR (MDRD) Non-Af Amer 85 mL/min >60 [facility] Comment on above: Non- GFR Calc Platelet mean volume Cliff-Ec ker (Bld) [Entitic vol]Ordered By: Lauren Brewer on 10-12-2023 Platelet mean volume (Bld) [Entitic vol] 11.3 fL 6.2-12.0 [facility] RBC Auto (Bld) [#/Vol]Ordere d By: Lauren Brewer on 10-12-2023 RBC (Bld) [#/Vol] 3.67 10*6/uL 4.2-5.4 [facility] Serum or plasma calcium angie urement (mass/volume)Ordered By: Lauren Brewer on 10-12-2023 Calcium [Mass/Vol] 8.3 mg/dL 8.5-10.1 [facility] Serum or plasma creatinine m easurement (mass/volume)Ordered By: Lauren Brewer on 10-12-2023 Creatinine [Mass/Vol] 0.74 mg/dL 0.55-1.02 [facility] Comment on above: The validity of the calculated GFR & GFRAA in patients over 70 years has not been determined. Clinical correlation is essential. Serum or plasma urea nitroge n measurement (mass/volume)Ordered By: Lauren Brewer on 10-12-2023 Urea nitrogen [Mass/Vol] 10 mg/dL 7-18 [facility] Thin prep Papanicolaou smear with manual screeningOrdered By: Lauren Brewer on 10-12-2023 Thin prep Papanicolaou smear with manual screening 2.9 g/dL 3.2-5.0 [facility] Thin prep Papanicolaou smear with manual screening 37 U/L 15-37 [facility] Thin prep Papanicolaou smear with manual screening 7 5-15 [facility] Activated partial thrombopla stin time (aPTT) in platelet poor plasma by coagulation aOrdered By: Jamar Ventura on 10-11-2023 aPTT Coag (PPP) [Time] 29.7 s 24.1-36.2 [facility] Basophil percentageOrdered B y: Jamar Ventura on 10-11-2023 Basophil percentage 3.2 mg/dL 2.5-4.9 [facility] normalized rat io (INR) calculationOrdered By: Jamar Ventura on 10-11-2023 INR Coag (PPP) [Relative time] 1.2 {INR} [facility] - Chemistry and C hemistry - challengeOrdered By: Jamar Ventura on 10-11-2023 Magnesium [Mass/Vol] 1.8 mg/dL 1.6-2.6 [facility] - CoagulationOrde red By: Jamar Ventura on 10-11-2023 PT Coag (PPP) [Time] 15.3 s 11.7-14.9 [facility] Absolute lymphocyte countOrd ered By: Yovanny Bran on 10-09-2023 Lymphocytes Auto (Unsp spec) [#/Vol] 0.67 10*3/uL 0.83-4.51 [facility] Automated lymphocyte count a s percentage of total leukocytesOrdered By: Yovanny Bran on 10-09-2023 Lymphocytes/100 WBC Auto (Unsp spec) 8.7 % 19-41 [facility] Basophil percentageOrdered B y: Yovanny Bran on 10-09-2023 Basophils/100 WBC (Bld) 0.5 % 0-1 [facility] Bilirubin [Mass/Vol] 3.00 mg/dL 0.20-1.00 [facility] Comment on above: For patients on eltr ombopag therapy, use of Dimension [place] TBIL is not recommended. Chloride [Moles/Vol] 105 mmol/L 98-107 [facility] Eosinophils/100 WBC (Bld) 0.4 % 0-5 [facility] Glucose [Mass/Vol] 125 mg/dL 74-106 [facility] Comment on above: Fasting Glucose resu lt from 100 to 125 mg/dL suggests IMPAIRED HOMEOSTASIS per A.D.A. criteria. Hemoglobin (Bld) [Mass/Vol] 13.2 g/dL 12.0-15.0 [facility] Monocytes/100 WBC (Bld) 5.7 % 0-10 [facility] Neutrophils (Bld) [#/Vol] 6.5 10*3/uL 2.0-7.7 [facility] Neutrophils/100 WBC (Bld) 83.9 % 47-70 [facility] Potassium [Moles/Vol] 4.0 mmol/L 3.5-5.1 [facility] Protein [Mass/Vol] 7.4 g/dL 6.4-8.2 [facility] Sodium [Moles/Vol] 138 mmol/L 136-145 [facility] WBC (Bld) [#/Vol] 7.7 10*3/uL 4.4-11.0 [facility] Determination of erythrocyte mean corpuscular volume (MCV)Ordered By: Yovanny Bran on 10-09-2023 MCV (RBC) [Entitic vol] 88.3 fL 81-99 [facility] Direct bilirubinOrdered By: Yovanny Bran on 10-09-2023 Bilirubin.direct [Mass/Vol] 1.91 mg/dL 0.00-0.30 [facility] Erythrocyte distribution wid th ratioOrdered By: Yovanny Bran on 10-09-2023 Erythrocyte distribution width (RBC) [Ratio] 13.8 % 11.6-14.6 [facility] Erythrocyte distribution wid th standard deviationOrdered By: Yovanny Bran on 10-09-2023 Erythrocyte distribution width (RBC) [Entitic vol] 43.0 fL 35.1-43.9 [facility] Hematocrit Auto (Bld) [Volum e fraction]Ordered By: Yovanny Bran on 10-09-2023 Hematocrit (Bld) [Volume fraction] 37.9 % 37-47 [facility] Immature granulocytes/100 WB C Auto (Bld)Ordered By: Yovanny Bran on 10-09-2023 Immature granulocytes/100 WBC (Bld) 0.800 % 0.0-0.9 [facility] Comment on above: IG% - Immature Granu locytes (promyelocytes, myelocytes and metamyelocytes) > 1% indicates that a LEFT SHIFT is Present. Laboratory - Chemistry and C hemistry - challengeOrdered By: Yovanny Bran on 10-09-2023 ALP [Catalytic activity/Vol] 164 U/L 45-117 [facility] ALT [Catalytic activity/Vol] 101 U/L 13-56 [facility] CO2 [Moles/Vol] 29.0 mmol/L 21.0-32.0 [facility] Globulin (S) [Mass/Vol] 3.6 g/dL 2.2-4.2 [facility] Lipase [Catalytic activity/Vol] 39 U/L 13-75 [facility] Comment on above: Please note:LIPASE r evised reference range effective 23. New Lipase methodology. Expected to produce lower values than the previous assay method. NEW Reference Range: 13 - 75 U/L Urea nitrogen/Creatinine [Mass ratio] 15.2 mg/mg 10-20 [facility] - Hematology and Cell countsOrdered By: Yovanny Bran on 10-09-2023 MCH (RBC) [Entitic mass] 30.8 pg 27.0-32.0 [facility] MCHC (RBC) [Mass/Vol] 34.8 g/dL 32-36 [facility] Nucleated RBC/100 WBC (Bld) [Ratio] 0 % 0-5 [facility] Platelets (Bld) [#/Vol] 157 10*3/uL 150-450 [facility] No Panel InformationOrdered By: Yovanny Bran on 10-09-2023 Estimated Creatinine Clearance Calc 70.63 ml/min [facility] Estimated GFR (MDRD) Amer 86 mL/min >60 [facility] Comment on above: GFR Calc Estimated GFR (MDRD) Non-Af Amer 71 mL/min >60 [facility] Comment on above: Non- GFR Calc Troponin I High Sensitivity 7 pg/mL 3.0-54.0 [facility] Comment on above: Please Note: New Linnea t Units and Gender Specific Reference Ranges. For more information see Policy Stat Procedure [place] High Sensitivity Troponin (TNIH) and attachments. Platelet mean volume Cliff-Ec ker (Bld) [Entitic vol]Ordered By: Yovanny Bran on 10-09-2023 Platelet mean volume (Bld) [Entitic vol] 10.0 fL 6.2-12.0 [facility] RBC Auto (Bld) [#/Vol]Ordere d By: Yovanny Bran on 10-09-2023 RBC (Bld) [#/Vol] 4.29 10*6/uL 4.2-5.4 [facility] Serum or plasma calcium angie urement (mass/volume)Ordered By: Yovanny Bran on 10-09-2023 Calcium [Mass/Vol] 9.4 mg/dL 8.5-10.1 [facility] Serum or plasma creatinine m easurement (mass/volume)Ordered By: Yovanny Bran on 10-09-2023 Creatinine [Mass/Vol] 0.86 mg/dL 0.55-1.02 [facility] Comment on above: The validity of the calculated GFR & GFRAA in patients over 70 years has not been determined. Clinical correlation is essential. Serum or plasma urea nitroge n measurement (mass/volume)Ordered By: Yovanny Bran on 10-09-2023 Urea nitrogen [Mass/Vol] 13 mg/dL 7-18 [facility] Thin prep Papanicolaou smear with manual screeningOrdered By: Yovanny Bran on 10-09-2023 Thin prep Papanicolaou smear with manual screening 3.8 g/dL 3.2-5.0 [facility] Thin prep Papanicolaou smear with manual screening 190 U/L 15 [facility] Thin prep Papanicolaou smear with manual screening 4 5-15 [facility] CNPNon 08-27-2023 CNPN Telephone (UCWSTR) YUE ANGULO ([id number]) 1960 F Date Time Provider Department 08/27/23 DEISY MENDOZA RUST During your visit today, we recorded the following information about you: Deisy Mendoza, PA-C 08/27/2023 7:17 AM Signed Call and let patient know she was positive for COVID-19. If she is interested in antiviral treatment I can print her off a prescription for molnupiravir. Would recommend a 5-day quarantine followed by 5 days of a mask. Follow-up with primary care if not improving. Aliza Melvin 08/27/2023 7:37 AM Signed Patient given results and verbalized understanding of instructions given. Aliza Melvin Allergies As of Date: 08/27/2023 Noted [...] Date Reviewed: 08/26/2023 Reviewed by: Phil Márquez APRN.CASER - Fully Assessed Reason for Visit: Results [...] qDay, # 30 tab(s), 3 Refill(s), Pharmacy: [facility], 167.6, cm, 04/08/23 13:33:00 EDT, [...] Resolved Allergy [T78.40XA] 02/27/2016 Encounter Status:Closed by ALIZA MELVIN [facility]/23 [facility] ([id number]) 1960 F Date Time Provider Department 08/27[facility]23 [facility] During your visit today, we recorded the following information about you: Deisy Mendoza PA-C 08/27/2023 8:13 AM Signed Molnupiravir Eligibility and Patient Discussion [facility] Formulary Restriction Criteria: Adult outpatients 18 years [...] the Fact Sheet for Patients, Parents and Caregivers. The patient was also instructed that in [...] Deisy Mendoza, (more content not included)... Normal [facility] CNOVon 08-26-2023 CNOV Office Visit (UCWSTR ) YUE ANGULO ([id number]) 1960 F Date Time Provider Department 08/26/23 5:15 PM PHIL MÁRQUEZ RUST During your visit today, we recorded the following information about you: Temperature Pulse Respiration Blood pressure 102.4 degrees 96/minute 18/minute 110/72 Weight 77.1 kg Phil Márquez APRN.CASER 08/26/2023 6:02 PM Signed Subjective HPI Nontoxic-appearing [...] qDay, # 30 tab(s), 3 Refill(s), Pharmacy: [facility], 167.6, cm, 04/08/23 13:33:00 EDT, [...] headaches. Negative (more content not included)... Normal [facility] INFLUENZA A&B MOLECULAR (POC )on 08-26-2023 Flu A (POCT) Negative Negative [facility] Flu B (POCT) Negative Negative [facility] Procedural Control Valid [facility] SARS-CoV-2 RNA Resp Ql SONJA+p robeon 08-26-2023 SARS-CoV-2 (COVID-19) RNA SONJA+probe Ql (Resp) COVID 19 RESULT: Detected The method used is RT-PCR or an equivalent NAAT method. Reference Range (the expected result in uninfected individuals): Not detected Normal [facility] Comment on above: Performed By: #### 9 [id number] #### [facility] CLIA [id number] [address] [place] [address] [place] .Auto Diffon 06-11-2023 Basophil, Absolute 0.1 10 3/mcL Normal 0.0-0.2 [facility] ([place]) Comment on above: Performed By: #### A DIFF, CBC, GFR, MG, BMP, ANEU #### [address] [address] Basophils/100 WBC (Bld) 1.0 % Normal 0.0-2.5 [facility] ([place]) Comment on above: Performed By: #### A DIFF, CBC, GFR, MG, BMP, ANEU #### [address] [address] Eosinophil, Absolute 0.2 10 3/mcL Normal 0.0-0.4 [facility] ([place]) Comment on above: Performed By: #### A DIFF, CBC, GFR, MG, BMP, ANEU #### [address] [address] Eosinophils/100 WBC (Bld) 3.0 % Normal 0.0-7.0 [facility] ([place]) Comment on above: Performed By: #### A DIFF, CBC, GFR, MG, BMP, ANEU #### [address] [address] Lymphocyte, Absolute 1.3 10 3/mcL Normal 0.8-3.9 [facility] ([place]) Comment on above: Performed By: #### A DIFF, CBC, GFR, MG, BMP, ANEU #### [address] [address] Lymphocytes/100 WBC (Bld) 20.5 % Normal 10.0-50.0 [facility] ([place]) Comment on above: Performed By: #### A DIFF, CBC, GFR, MG, BMP, ANEU #### [address] [address] Monocyte, Absolute 0.4 10 3/mcL Normal 0.2-1.0 [facility] ([place]) Comment on above: Performed By: #### A DIFF, CBC, GFR, MG, BMP, ANEU #### [address] [address] Monocytes/100 WBC (Bld) 7.1 % Normal 1.7-13.0 [facility] ([place]) Comment on above: Performed By: #### A DIFF, CBC, GFR, MG, BMP, ANEU #### [address] [address] Neutrophils/100 WBC (Bld) 68.4 % Normal 37.0-80.0 [facility] ([place]) Comment on above: Performed By: #### A DIFF, CBC, GFR, MG, BMP, ANEU #### [address] [address] .GFRon 06-11-2023 GFR Non- 73 ml/min/1.73sqm Normal [facility] ([place]) Comment on above: Result Comment: GFR Population [...] DIFF, CBC, GFR, MG, BMP, ANEU #### [address] [address] GFR 88 ml/min/1.73sqm Normal [facility] ([place]) Comment on above: Result Comment: GFR Population [...] DIFF, CBC, GFR, MG, BMP, ANEU #### [address] [address] .MDWon 06-11-2023 Monocyte Distribution Width 15.92 Normal 0.00-20.00 [facility] ([place]) Comment on above: Result Comment: For ED adult patients suspected of sepsis, MDW<=20.0 does not rule out sepsis or risk of sepsis Performed By: #### A DIFF, CBC, GFR, MG, BMP, ANEU #### [address] [address] .NEUABSon 06-11-2023 Neutrophil, Absolute 4.2 10 3/mcL Normal 2.9-6.2 [facility] ([place]) Comment on above: Performed By: #### A DIFF, CBC, GFR, MG, BMP, ANEU #### [address] [address] BMPon 06-11-2023 BUN/Creatinine Ratio 16 ratio Normal 7-27 [facility] ([place]) Comment on above: Performed By: #### A DIFF, CBC, GFR, MG, BMP, ANEU #### [address] [address] Calcium [Mass/Vol] 9.3 mg/dL Normal 8.4-10.2 [facility] ([place]) Comment on above: Performed By: #### A DIFF, CBC, GFR, MG, BMP, ANEU #### [address] [address] Chloride [Moles/Vol] 104 mmol/L Normal 98-107 [facility] ([place]) Comment on above: Performed By: #### A DIFF, CBC, GFR, MG, BMP, ANEU #### [address] [address] CO2 [Moles/Vol] 30 mmol/L Normal 23-31 [facility] ([place]) Comment on above: Performed By: #### A DIFF, CBC, GFR, MG, BMP, ANEU #### [address] [address] Creatinine [Mass/Vol] 0.80 mg/dL Normal 0.55-1.02 [facility] ([place]) Comment on above: Performed By: #### A DIFF, CBC, GFR, MG, BMP, ANEU #### [address] [address] Electrolyte Balance 8.0 mEq/L Normal 4.0-15.0 [facility] ([place]) Comment on above: Performed By: #### A DIFF, CBC, GFR, MG, BMP, ANEU #### [place] [id number] Glucose [Mass/Vol] 97 mg/dL Normal 80-115 [facility] ([place]) Comment on above: Performed By: #### A DIFF, CBC, GFR, MG, BMP, ANEU #### [address] [address] Potassium [Moles/Vol] 4.4 mmol/L Normal 3.5-5.1 [facility] ([place]) Comment on above: Performed By: #### A DIFF, CBC, GFR, MG, BMP, ANEU #### [address] [address] Sodium [Moles/Vol] 142 mmol/L Normal 136-145 [facility] ([place]) Comment on above: Performed By: #### A DIFF, CBC, GFR, MG, BMP, ANEU #### [address] [address] Urea nitrogen [Mass/Vol] 13 mg/dL Normal 7-18 [facility] ([place]) Comment on above: Performed By: #### A DIFF, CBC, GFR, MG, BMP, ANEU #### [place] [id number] CBCon 06-11-2023 Erythrocyte distribution width (RBC) [Ratio] 14.7 % High 11.5-14.5 [facility] ([place]) Comment on above: Performed By: #### A DIFF, CBC, GFR, MG, BMP, ANEU #### [place] [address] Hematocrit (Bld) [Volume fraction] 38.0 % Normal 37.0-47.0 [facility] ([place]) Comment on above: Performed By: #### A DIFF, CBC, GFR, MG, BMP, ANEU #### [place] [address] Hgb 13.3 G/dL Normal 12.0-16.0 [facility] ([place]) Comment on above: Performed By: #### A DIFF, CBC, GFR, MG, BMP, ANEU #### [place] [address] MCH (RBC) [Entitic mass] 30.8 pg Normal 27.0-31.2 [facility] ([place]) Comment on above: Performed By: #### A DIFF, CBC, GFR, MG, BMP, ANEU #### [place] [address] MCHC 35.0 G/dL Normal 33.0-37.0 [facility] ([place]) Comment on above: Performed By: #### A DIFF, CBC, GFR, MG, BMP, ANEU #### [place] [address] MCV (RBC) [Entitic vol] 88.1 fL Normal 80.0-94.0 [facility] ([place]) Comment on above: Performed By: #### A DIFF, CBC, GFR, MG, BMP, ANEU #### [place] [address] Platelet 173 10 3/mcL Normal 130-400 [facility] ([place]) Comment on above: Performed By: #### A DIFF, CBC, GFR, MG, BMP, ANEU #### [facility] [address] [place], [place] [address] Platelet mean volume (Bld) [Entitic vol] 7.8 fL Normal 7.4-10.4 [facility] ([place]) Comment on above: Performed By: #### A DIFF, CBC, GFR, MG, BMP, ANEU #### [address] [address] RBC 4.31 10 6/mcL Normal 4.20-5.40 [facility] ([place]) Comment on above: Performed By: #### A DIFF, CBC, GFR, MG, BMP, ANEU #### [address] [address] WBC 6.2 10 3/mcL Normal 4.6-10.8 [facility] ([place]) Comment on above: Performed By: #### A DIFF, CBC, GFR, MG, BMP, ANEU #### [place] [address] LABORATORYOrdered By: SYSTEM SYSTEM on 06-11-2023 Basophil, [...] No Panel Informationon 06-11 NEGATED: Highlighted row [employer] Work Phone: [facility] 06-11-2023 Troponin I High Sensitivity 7.8 ng/L Normal 0.0-51.4 [facility] ([place]) Comment on above: Performed By: #### A DIFF, CBC, GFR, MG, BMP, ANEU #### [address] [address] XR CHEST 1 VIEWon 06-11-2023 XR CHEST [...] 06/11/2023 11:36:50 AM Ordering Provider: JAVIER Alberto [facility] ([place]) .Auto Diffon 05-31-2023 Basophil, Absolute 0.1 10 3/mcL Normal 0.0-0.3 [facility] ([place]) Comment on above: Performed By: #### A DIFF, CBC, GFR, MG, BMP, ANEU #### [address] [address] Eosinophil, Absolute 0.3 10 3/mcL Normal 0.0-0.7 [facility] ([place]) Comment on above: Performed By: #### A DIFF, CBC, GFR, MG, BMP, ANEU #### [address] [address] Lymphocyte, Absolute 1.7 10 3/mcL Normal 0.9-4.3 [facility] ([place]) Comment on above: Performed By: #### A DIFF, CBC, GFR, MG, BMP, ANEU #### [address] [address] Monocyte, Absolute 0.7 10 3/mcL Normal 0.1-1.4 [facility] ([place]) Comment on above: Performed By: #### A DIFF, CBC, GFR, MG, BMP, ANEU #### [address] [address] .Auto DiffOrdered By: SYSTEM SYSTEM on 05-31-2023 Basophils/100 WBC (Bld) 0.8 % Normal 0.0-2.5 A H Workflow SS Comment on above: Performed By: #### A DIFF, CBC, GFR, MG, BMP, ANEU #### [address] [address] Eosinophils/100 WBC (Bld) 4.3 % Normal 0.0-6.0 AH Workflow SS Comment on above: Performed By: #### A DIFF, CBC, GFR, MG, BMP, ANEU #### [address] [address] Lymphocytes/100 WBC (Bld) 25.2 % Normal 20.0-40.0 AH Workflow SS Comment on above: Performed By: #### A DIFF, CBC, GFR, MG, BMP, ANEU #### [address] [address] Monocytes/100 WBC (Bld) 11.1 % Normal 2.0-13.0 A H Workflow SS Comment on above: Performed By: #### A DIFF, CBC, GFR, MG, BMP, ANEU #### [address] [address] Neutrophils/100 WBC (Bld) 58.6 % Normal 50.0-75.0 AH Workflow SS Comment on above: Performed By: #### A DIFF, CBC, GFR, MG, BMP, ANEU #### [address] [address] .GFRon 05-31-2023 GFR >60 Normal [facility] ([place]) Comment on above: Result Comment: GFR Population [...] DIFF, CBC, GFR, MG, BMP, ANEU #### [address] [address] GFR Non- >60 Normal [facility] ([place]) Comment on above: Result Comment: GFR Population [...] DIFF, CBC, GFR, MG, BMP, ANEU #### [address] [address] .MDWon 05-31-2023 Monocyte Distribution Width 17.23 Normal 0.00-20.00 [facility] ([place]) Comment on above: Result Comment: For ED adult patients suspected of sepsis, MDW<=20.0 does not rule out sepsis or risk of sepsis Performed By: #### A DIFF, CBC, GFR, MG, BMP, ANEU #### [address] [address] .NEUABSon 05-31-2023 Neutrophil, Absolute 3.9 10 3/mcL Normal 2.3-8.1 [facility] ([place]) Comment on above: Performed By: #### A DIFF, CBC, GFR, MG, BMP, ANEU #### [place] [id number] BMPon 05-31-2023 BUN/Creatinine Ratio 15.3 ratio Normal 10.0-22.0 [facility] ([place]) Comment on above: Performed By: #### A DIFF, CBC, GFR, MG, BMP, ANEU #### [place] [address] BMPOrdered By: SYSTEM SYSTEM on 05-31-2023 Calcium [Mass/Vol] 9.3 mg/dL Normal 8.7-10.4 AH ADM SS Comment on above: Performed By: #### A DIFF, CBC, GFR, MG, BMP, ANEU #### [place] [address] Chloride [Moles/Vol] 102 mmol/L Normal 98-110 AH A DM SS Comment on above: Performed By: #### A DIFF, CBC, GFR, MG, BMP, ANEU #### [place] [address] CO2 [Moles/Vol] 33 mmol/L High 22-32 AH ADM SS Comment on above: Performed By: #### A DIFF, CBC, GFR, MG, BMP, ANEU #### [place] [address] Creatinine [Mass/Vol] 0.72 mg/dL Normal 0.50-1.20 AH ADM SS Comment on above: Performed By: #### A DIFF, CBC, GFR, MG, BMP, ANEU #### [place] [address] Electrolyte Balance 6.0 mEq/L Normal 4.0-15.0 AH AD M SS Comment on above: Performed By: #### A DIFF, CBC, GFR, MG, BMP, ANEU #### [place] [address] Glucose [Mass/Vol] 82 mg/dL Normal 82-115 AH ADM SS Comment on above: Performed By: #### A DIFF, CBC, GFR, MG, BMP, ANEU #### [address] [address] Potassium [Moles/Vol] 3.8 mmol/L Normal 3.5-5.0 AH ADM SS Comment on above: Performed By: #### A DIFF, CBC, GFR, MG, BMP, ANEU #### [place] [address] Sodium [Moles/Vol] 141 mmol/L Normal 136-145 AH ADM SS Comment on above: Performed By: #### A DIFF, CBC, GFR, MG, BMP, ANEU #### [place] [address] Urea nitrogen [Mass/Vol] 11.0 mg/dL Normal 8.0-22.0 AH ADM SS Comment on above: Performed By: #### A DIFF, CBC, GFR, MG, BMP, ANEU #### [place] [address] CBCOrdered By: SYSTEM SYSTEM on 05-31-2023 Erythrocyte distribution width (RBC) [Ratio] 14.9 % Normal 11.5-15.5 AH Workflow SS Comment on above: Performed By: #### A DIFF, CBC, GFR, MG, BMP, ANEU #### [place] [id number] Hematocrit (Bld) [Volume fraction] 41.4 % Normal 34.0-46.0 AH Workflow SS Comment on above: Performed By: #### A DIFF, CBC, GFR, MG, BMP, ANEU #### [place] [id number] MCH (RBC) [Entitic mass] 31.0 pg Normal 27.0-33.0 AH Workflow SS Comment on above: Performed By: #### A DIFF, CBC, GFR, MG, BMP, ANEU #### [place] [address] MCHC 34.5 G/dL Normal 32.0-36.0 AH Workflow SS Comment on above: Performed By: #### A DIFF, CBC, GFR, MG, BMP, ANEU #### [place] [address] MCV (RBC) [Entitic vol] 89.7 fL Normal 80.0-99.0 A H Workflow SS Comment on above: Performed By: #### A DIFF, CBC, GFR, MG, BMP, ANEU #### [place] [address] Platelet mean volume (Bld) [Entitic vol] 8.4 fL Normal 6.6-10.5 Workflow SS Comment on above: Performed By: #### A DIFF, CBC, GFR, MG, BMP, ANEU #### [place] [address] CBCon 05-31-2023 Hgb 14.3 G/dL Normal 12.0-16.0 [facility] ([place]) Comment on above: Performed By: #### A DIFF, CBC, GFR, MG, BMP, ANEU #### [place] [address] Platelet 165 10 3/mcL Normal 150-450 [facility] ([place]) Comment on above: Performed By: #### A DIFF, CBC, GFR, MG, BMP, ANEU #### [place] [address] RBC 4.61 10 6/mcL Normal 4.10-5.30 [facility] ([place]) Comment on above: Performed By: #### A DIFF, CBC, GFR, MG, BMP, ANEU #### [place] [address] WBC 6.7 10 3/mcL Normal 4.5-10.8 [facility] ([place]) Comment on above: Performed By: #### A DIFF, CBC, GFR, MG, BMP, ANEU #### [place] [address] LABORATORYOrdered By: SYSTEM SYSTEM on 05-31-2023 Basophils (Bld) [#/Vol] 0.1 103/mcL Invalid Interpretation Code 0.0 - 0.3 10^3/mcL AH Workflow SS Eosinophils (Bld) [#/Vol] 0.3 103/mcL Invalid Interpretation Code 0.0 - 0.7 10^3/mcL AH Workflow SS GFR/1.73 sq M.predicted among [...] (S/P/Bld) [Vol rate/Area] ml/min/1.73sqm Invalid Interpretation Code [facility] Comment on above: Interpretive Data: GFR Population [...] Code 0.9 - 4.3 10^3/mcL Workflow SS Monocyte distribution width Auto (Bld) [...] 4.10 - 5.30 10^6/mcL AH Workflow SS Troponin I.cardiac DL <= 0.01 ng/mL [Mass/Vol] 5.87 ng/L Invalid Interpretation Code 0.00 - 34.00 ng/L AH ADM SS Comment on above: Interpretive [...] ratio AH ADM SS WBC (Bld) [#/Vol] 6.7 103/mcL Invalid Interpretation Code 4.5 - 10.8 10^3/mcL Workflow SS No Panel Informationon 05-31 NEGATED: Highlighted row [facility] (Radiology) TROPHSon 05-31-2023 Troponin I High Sensitivity 5.87 ng/L Normal 0.00-34.00 [facility] ([place]) Comment on above: Result Comment: If t he High Sensitive Troponin result is below the 99th percentile value (<45 ng/L) at the first blood draw, at least two additional blood samples should be drawn before results are interpreted as negative for AMI. Performed By: #### A DIFF, CBC, GFR, MG, BMP, ANEU #### [facility] [address] [place] [address] XR CHEST 1 VIEWon 05-31-2023 XR CHEST [...] 05/31/2023 7:54:07 PM Ordering Provider: RICHARD GILL [facility] ([place]) No Panel Informationon 05-17 NEGATED: Highlighted [facility] (Radiology) LABORATORYOrdered By: SYSTEM SYSTEM on 05-05-2023 [...] - 5.0 mEq/L ADM SS Sodium [Moles/Vol] 141 mmol/L Invalid [...] - 1.20 mg/dL ADM SS Electrolyte Balance 6.0 mEq/L Invalid [...] 46.0 % Workflow SS Hemoglobin (Bld) [Mass/Vol] 11.8 G/dL Invalid Interpretation Code 12.0 - 16.0 G/dL Workflow SS Lymphocytes (Bld) [#/Vol] 1.2 103/mcL Invalid Interpretation Code 0.9 - 4.3 10^3/mcL Workflow SS Lymphocytes/100 WBC (Bld) 19.9 % Invalid Interpretation Code 20.0 - 40.0 % Workflow SS Magnesium [Mass/Vol] 1.7 mg/dL Invalid Interpretation Code 1.6 - 2.4 mg/dL ADM SS MCH (RBC) [Entitic mass] 30.9 pg Invalid Interpretation Code 27.0 - 33.0 pg Workflow SS MCHC 35.0 G/dL Invalid Interpretation Code 32.0 - 36.0 G/dL Workflow SS MCV (RBC) [Entitic vol] 88.4 [...] mg/dL ADM SS Hematocrit (Bld) [Volume fraction] 38.4 % Invalid [...] 11.5 - 15.5 % AH Workflow SS Globulin 2.6 G/dL Invalid Interpretation Code 1.5 - 3.8 G/dL AH ADM SS Hematocrit (Bld) [Volume fraction] 36.8 % Invalid Interpretation Code 34.0 - 46.0 % AH Workflow SS Hemoglobin (Bld) [Mass/Vol] 12.7 G/dL [...] 450 10^3/mcL AH Workflow SS Protein [Mass/Vol] 5.5 G/dL Invalid Interpretation Code 5.7 - 8.2 G/dL ADM SS Comment on above: Interpretive Data: * *Note - New Reference Range in effect 20 RBC (Bld) [#/Vol] 4.01 106/mcL Invalid Interpretation Code 4.10 - 5.30 10^6/mcL AH Workflow SS WBC (Bld) [#/Vol] 10.2 103/mcL Invalid Interpretation Code 4.5 - 10.8 10^3/mcL Workflow SS LABORATORYOrdered By: Terra Ken on 05-01-2023 Lactate [Moles/Vol] 1.0 mmol/L Invalid Interpretation Code 0.2 - 2.0 mmol/L Auto Chem SS LABORATORYOrdered By: [employer] on 05-01-2023 Troponin I.cardiac DL <= 0.01 ng/mL [Mass/Vol] 8.98 ng/L Invalid Interpretation Code 0.00 - 34.00 [...] Troponin I.cardiac DL <= 0.01 ng/mL [Mass/Vol] 6.47 ng/L Invalid Interpretation Code 0.00 - 34.00 [...] Invalid Interpretation Code 0 - 30 mm/hr Manual Heme SS LABORATORYOrdered By: Mariela Pimentel on 04-30-2023 ABO and Rh group Nom (Bld) Blood group AB Rh(D) positive Invalid Interpretation Code BB Manual SS Blood group antibody screen Ql Negative ABSC (04/30/23 6:13 AM) Invalid Interpretation Code BB Manual SS LABORATORYOrdered By: Carmelina oMnte on 04-30-2023 aPTT Coag (PPP) [Time] 37.3 [...] [Relative time] 1.0 {INR} Invalid Interpretation Code Auto Coag SS Comment on above: Interpretive Data: [employer] (CHEST, 1992, [id number]) [...] 1.12 - 1.32 mmol/L Auto Chem SS CNPNon 02-22-2023 CNPN Telephone ([facility]) YUE ANGULO ([id number]) 1960 F Date Time Provider Department 02/22/23 OLDER, ERIKA [facility] During your visit today, we recorded the following information about you: Madiha Mahan SERENITY 02/22/2023 1:20 PM Signed Patient calling was seen in [facility] care 02/19 and asking [facility] Pact Team 3 fax number [phone]. Printed report and faxed as requested. Allergies [...] - Hives Date Reviewed: 02/19/2023 Reviewed by: Aliza Melvin - Fully Assessed Reason for Visit: copy of xray report fax to [place] [Other] Prescriptions as of 02/22/2023 - Tadalafil [...] Resolved Allergy [T78.40XA] 02/27/2016 Encounter Status:Closed by MADIHA MAHAN LPN on 02/22/23 [facility] CNOVon 02-19-2023 CNOV Office Visit ([facility] ) YUE ANGULO ([id number]) 1960 F Date Time Provider Department 02/19/23 4:30 PM ERIKA ELIZALDE WS During your visit today, we recorded the following information about you: Temperature Pulse Respiration Blood pressure 98.7 degrees 88/minute 16/minute 112/78 Weight 80.3 kg Erika Elizalde APRN.CNP 02/19/2023 5:23 PM Signed CC: Patient presents with: Toe Injury: left 2nd toe bruising and painful, bilateral knees after fall x this am HPI Yue Angulo is a 62 year old female [...] Patient agreeable to treatment plan. Erika Elizalde, YENIFER.CASER Referring Provider: SELF [[id number]] Allergies As of [...] MOTRIN (IBUPR (more content not included)... Normal [facility] XR TOE 3V AP/LAT/OBL LTon 05 -30-2023 XR TOE 3V AP/LAT/OBL LT * * *Final Repor t* * * DATE OF EXAM: Feb 19 [...] toe distal phalangeal displaced dorsal articular fracture Paper Pattern Folder: ADAM Transcribe Date/Time: Feb 19 2023 4:54P Dictated by : THAO BOWIE MD This examination was interpreted and the report reviewed and electronically signed by: THAO BOWIE MD on Feb 19 2023 4:58PM EST [id number] Normal [facility] XR Toes - left 3 Viewson IMPRESSION: Second toe distal phalangeal displaced dorsal articular fracture Paper Pattern Folder: ADAM Transcribe Date/Time: Feb 19 2023 4:54P [...] postoperative first metatarsal. DIVISION OF RADIOLOGY Provider, Danelle Mckoy [facility] - 02/19/2023 * * *Final Report* * [...] toe distal phalangeal displaced dorsal articular fracture Paper Pattern Folder: ADAM Transcribe Date/Time: Feb 19 2023 4:54P Dictated by : THAO BOWIE MD This examination was interpreted and the report reviewed and electronically signed by: THAO BOWIE MD on Feb 19 2023 4:58PM [facility] Radiology Study observation (narrative) [facility] XR Toes - left 3 ViewsOrdere d By: Ccf Provider on 02-19-2023 [facility] No Panel Informationon 02-07 NEGATED: Highlighted row [employer]. Work Phone: LABORATORYOrdered By: Shira Garzon on 01-31-2023 Basophil, [...] 10.8 10^3/mcL AO Workflow SS LABORATORYOrdered By: [employer] on 01-31-2023 Calcium [Mass/Vol] 9.0 mg/dL [...] 27 ratio AO ADM SS LABORATORYOrdered By: [employer] on 01-29-2023 Albumin BCP dye [Mass/Vol] [...] 7 - 27 ratio AO ADM SS Absolute lymphocyte countOrd ered By: Dr. Cortez on 11-16-2022 Lymphocytes Auto (Unsp spec) [#/Vol] 1.07 10*3/uL 0.83-4.51 [facility] Basophil percentageOrdered B y: Dr. Cortez on 11-16-2022 Basophils/100 WBC (Bld) 0.8 % 0-1 [facility] Bilirubin [Mass/Vol] 0.80 mg/dL 0.20-1.00 [facility] Comment on above: For patients on eltr ombopag therapy, use of Dimension [place] TBIL is not recommended. Chloride [Moles/Vol] 104 mmol/L 98-107 [facility] Eosinophils/100 WBC (Bld) 2.5 % 0-5 [facility] Glucose [Mass/Vol] 95 mg/dL 74-106 [facility] Neutrophils (Bld) [#/Vol] 4.4 10*3/uL 2.0-7.7 [facility] Neutrophils/100 WBC (Bld) 72.7 % 47-70 [facility] Potassium [Moles/Vol] 3.4 mmol/L 3.5-5.1 [facility] Protein [Mass/Vol] 7.8 g/dL 6.4-8.2 [facility] Sodium [Moles/Vol] 139 mmol/L 136-145 [facility] WBC (Bld) [#/Vol] 6.1 10*3/uL 4.4-11.0 [facility] Bilirubin Test strip Ql (U)O rdered By: Dr. Cortez on 11-16-2022 Bilirubin Ql (U) Negative Negative [facility] Blood erythrocytes count (nu mber/volume)Ordered By: Dr. Cortez on 11-16-2022 RBC (Bld) [#/Vol] 4.15 10*6/uL 4.2-5.4 [facility] Blood hemoglobin measurement (mass/volume)Ordered By: Dr. Cortez on 11-16-2022 Hemoglobin (Bld) [Mass/Vol] 13.1 g/dL 12.0-15.0 [facility] Blood lymphocytes/100 leukoc ytesOrdered By: Dr. Cortez on 11-16-2022 Lymphocytes/100 WBC (Bld) 17.5 % 19-41 [facility] Blood monocytes/100 leukocyt esOrdered By: Dr. Cortez on 11-16-2022 Monocytes/100 WBC (Bld) 6.2 % 0-10 [facility] Blood platelet mean volumeOr dered By: Dr. Cortez on 11-16-2022 Platelet mean volume (Bld) [Entitic vol] 11.0 fL 6.2-12.0 [facility] Determination of erythrocyte mean corpuscular volume (MCV)Ordered By: Dr. Cortez on 11-16-2022 MCV (RBC) [Entitic vol] 91.1 fL 81-99 [facility] Dilute Rolo's viper venom timeOrdered By: Dr. Cortez on 11-16-2022 dRVVT Coag (PPP) [Time] 96.3 s 0.0-47.0 [facility] Erythrocyte sedimentation ra teOrdered By: Dr. Cortez on 11-16-2022 ESR (Bld) [Velocity] 5 mm/h 0-30 [facility] Hematocrit Auto (Bld) [Volum e fraction]Ordered By: Dr. Cortez on 11-16-2022 Hematocrit (Bld) [Volume fraction] 37.8 % 37-47 [facility] INR in Blood by Coagulation assayOrdered By: Dr. Cortez on 11-16-2022 INR Coag (Bld) [Relative time] 1.6 {INR} [facility] Ketones Test strip Ql (U)Ord ered By: Dr. Cortez on 11-16-2022 Ketones Ql (U) Negative Negative [facility] Laboratory - Chemistry and C hemistry - challengeOrdered By: Dr. Cortez on 11-16-2022 ALP [Catalytic activity/Vol] 122 U/L 45-117 [facility] ALT [Catalytic activity/Vol] 297 U/L 13-56 [facility] CO2 [Moles/Vol] 31.0 mmol/L 21.0-32.0 [facility] Globulin (S) [Mass/Vol] 3.9 g/dL 2.2-4.2 [facility] Urea nitrogen/Creatinine [Mass ratio] 24.9 mg/mg 10-20 [facility] Laboratory - CoagulationOrde red By: Dr. Cortez on 11-16-2022 aPTT Coag (Bld) [Time] 38.3 s 24.1-36.2 [facility] PT Coag (PPP) [Time] 18.8 s 11.7-14.9 [facility] - Hematology and Cell countsOrdered By: Dr. Cortez on 11-16-2022 Erythrocyte distribution width (RBC) [Entitic vol] 45.3 fL 35.1-43.9 [facility] Erythrocyte distribution width (RBC) [Ratio] 14.0 % 11.6-14.6 [facility] Immature granulocytes/100 WBC (Bld) 0.300 % 0.0-0.9 [facility] Comment on above: IG% - Immature Granu locytes (promyelocytes, myelocytes and metamyelocytes) > 1% indicates that a LEFT SHIFT is Present. MCH (RBC) [Entitic mass] 31.6 pg 27.0-32.0 [facility] Nucleated RBC/100 WBC (Bld) [Ratio] 0 % 0-5 [facility] - Miscellaneous t estsOrdered By: Dr. Cortez on 11-16-2022 Service comment (Unsp spec) [Interp] Comment . [facility] Comment on above: Results do not indic ate the presence of a LupusAnticoagulant: abnormal high screening results (PTT-LA,dRVVT, mixing studies), may be due to medication (heparin,warfarin, aspirin), Factor inhibitors, anticardiolipinantibodies, or poor specimen integrity.Performed at: [address] [id number] Director: Nedra Street MD, Phone: [phone] [facility] Auto (RBC) [Mass/Vol]Or dered By: Dr. Cortez on 11-16-2022 MCHC (RBC) [Mass/Vol] 34.7 g/dL 32-36 [facility] Nitrite Test strip Ql (U)Ord ered By: Dr. Cortez on 11-16-2022 Nitrite Ql (U) Negative Negative [facility] No Panel InformationOrdered By: Dr. Cortez on 11-16-2022 Estimated GFR (MDRD) Amer 93 mL/min >60 [facility] Comment on above: GFR Calc Estimated GFR (MDRD) Non-Af Amer 77 mL/min >60 [facility] Comment on above: Non- GFR Calc Hexagonal Phase Phospholipid 4 sec 0-11 [facility] Miscellaneous Test Comment MAILED SPECIMEN [facility] Platelets bldOrdered By: Dr. Cortez on 11-16-2022 Platelets (Bld) [#/Vol] 144 10*3/uL 150-450 [facility] Protein Test strip Ql (U)Ord ered By: Dr. Cortez on 11-16-2022 Protein Ql (U) 15 mg/dl Negative [facility] Serum or plasma C reactive p rotein measurement (mass/volume)Ordered By: Dr. Cortez on 11-16-2022 CRP [Mass/Vol] 7.98 mg/L 0.0-3.0 [facility] Comment on above: C-Reactive Protein ( CRP) provides useful information for thediagnosis, therapy and monitoring of inflammatory processesand associated diseases. For the evaluation of Relative Riskfor Cardiovascular Disease, a High Sensitivity CRP (HSCRP)should be ordered. Serum or plasma albumin angie urement (mass/volume)Ordered By: Dr. Cortez on 11-16-2022 Albumin [Mass/Vol] 3.9 g/dL 3.2-5.0 [facility] Serum or plasma albumin/glob ulin mass ratioOrdered By: Dr. Cortez on 11-16-2022 Albumin/Globulin [Mass ratio] 1.0 {ratio} 0.9-2.4 [facility] Serum or plasma calcium angie urement (mass/volume)Ordered By: Dr. Cortez on 11-16-2022 Calcium [Mass/Vol] 9.1 mg/dL 8.5-10.1 [facility] Serum or plasma creatinine m easurement (mass/volume)Ordered By: Dr. Cortez on 11-16-2022 Creatinine [Mass/Vol] 0.80 mg/dL 0.55-1.02 [facility] Comment on above: The validity of the calculated GFR & GFRAA in patients over 70 years has not been determined. Clinical correlation is essential. Serum or plasma urea nitroge n measurement (mass/volume)Ordered By: Dr. Cortez on 11-16-2022 Urea nitrogen [Mass/Vol] 20 mg/dL 7-18 [facility] Thin prep Papanicolaou smear with manual screeningOrdered By: Dr. Cortez on 11-16-2022 Thin prep Papanicolaou smear with manual screening 174 U/L 15-37 [facility] Thin prep Papanicolaou smear with manual screening 4 5-15 [facility] Thin prep Papanicolaou smear with manual screening 63.7 sec 0.0-47.6 [facility] Thin prep Papanicolaou smear with manual screening 0.85 Ratio 0.00-1.34 [facility] Thin prep Papanicolaou smear with manual screening 48.2 sec 0.0-43.5 [facility] Comment on above: Please note refere nce interval change Thin prep Papanicolaou smear with manual screening 45.2 sec 0.0-40.5 [facility] Comment on above: Please note refere nce interval change Thin prep Papanicolaou smear with manual screening Comment: . [facility] Comment on above: Results are consiste nt with the presence of a lupus anticoagulant. As onlypersistent lupus anticoagulant (LA) positivity meets laboratory diagnosticcriteria for antiphospholipid syndrome, repeat testing in 12 or more weeksis recommended, ideally in the absence of anticoagulant therapy.Important Note: The results of LA testing are not valid for patientsreceiving heparin, direct Xa inhibitor (e.g., rivaroxaban, apixaban) ordirect thrombin inhibitor (e.g., dabigatran) therapy. These drugs may causefalse positive LA results but will not interfere with anticardiolipin andbeta-2 glycoprotein 1 antibody testing. Thrombin time in platelet po or plasmaOrdered By: Dr. Cortez on 11-16-2022 Thrombin time Coag (PPP) [Time] 16.1 sec 0.0-23.0 [facility] Urine blood detectionOrdered By: Dr. Cortez on 11-16-2022 RBC Ql (U) 25 /ul Negative [facility] Urine clarityOrdered By: Dr. Cortez on 11-16-2022 Clarity (U) Sl. Cloudy Clear [facility] Urine color determinationOrd ered By: Dr. Cortez on 11-16-2022 Color (U) Yellow Yellow [facility] Urine creatinine measurement (mass/volume)Ordered By: Dr. Cortez on 11-16-2022 Creatinine (U) [Mass/Vol] 151.00 mg/dL NO RANGE EST. [facility] Urine glucose detectionOrder ed By: Dr. Cortez on 11-16-2022 Glucose Ql (U) Normal mg/dl Normal [facility] Urine leukocyte esterase det ection by dipstickOrdered By: Dr. Cortez on 11-16-2022 Leukocyte esterase Test strip Ql (U) 500 /ul Negative [facility] Urine pHOrdered By: Dr. Bc adkins on 11-16-2022 pH (U) 5.0 [pH] 5.0 - 8.0 [facility] Urine protein measurement (m ass/volume)Ordered By: Dr. Cortez on 11-16-2022 Protein (U) [Mass/Vol] 11.4 mg/dL 0.0-11.8 [facility] Urine protein/creatinine mas s ratioOrdered By: Dr. Cortez on 11-16-2022 Protein/Creatinine (U) [Mass ratio] 76 mg/g CRE 0-200 [facility] Urine specific gravity measu rementOrdered By: Dr. Cortez on 11-16-2022 Specific gravity (U) [Rel density] 1.025 1.002-1.030 [facility] Urobilinogen Auto test strip Ql (U)Ordered By: Dr. Cortez on 11-16-2022 Urobilinogen Ql (U) Normal mg/dl Normal [facility] LABORATORYOrdered By: Jaswant Lucio on 10-13-2022 Natriuretic [...] Anion gap [Moles/Vol] 10.2 mmol/L Low [facility] (Lab) Comment on above: Performed By: #### B MP #### [address] [place] [address] Calcium [Mass/Vol] 9.5 mg/dL [facility] (Lab) Comment on above: Performed By: #### B MP #### [address] [place] [address] Chloride [Moles/Vol] 106 mmol/L [facility] (Lab) Comment on above: Performed By: #### B MP #### [address] [place] [address] CO2 [Moles/Vol] 26.0 mmol/L [facility] (Lab) Comment on above: Performed By: #### B MP #### [address] [place] [address] Creatinine [Mass/Vol] 0.80 mg/dL [facility] (Lab) Comment on above: Performed By: #### B MP #### [facility] [address] [place] [address] GFR > 60.0 [facility] (Lab) Comment on above: Performed By: #### B MP #### [address] [place] [address] GFR AM > 60.0 [facility] (Lab) Comment on above: Result Comment: THE NORMAL LEVEL OF GFR VARIES ACCORDING TO AGE, SEX, AND BODY SIZE. A GFR LEVEL OF LESS THAN 60 ML/MIN REPRESENTS LOSS OF THE ADULT LEVEL OF NORMAL KIDNEY FUNCTION. Performed By: #### B MP #### [facility] [address] [place] [address] Glucose [Mass/Vol] 106 mg/dL High [facility] (Lab) Comment on above: Performed By: #### B MP #### [facility] [address] [place] [address] Potassium [Moles/Vol] 4.1 mmol/L [facility] (Lab) Comment on above: Performed By: #### B MP #### [facility] [address] [place] [address] Sodium [Moles/Vol] 138 mmol/L [facility] (Lab) Comment on above: Performed By: #### B MP #### [facility] [address] [place] [address] Urea nitrogen [Mass/Vol] 15.0 mg/dL [facility] (Lab) Comment on above: Performed By: #### B MP #### [facility] [address] [place] [address] CBC W Auto Differential pane l (Bld)on 08-15-2022 bas0 % % [facility] (Lab) gran # K/uL [facility] (Lab) gran % % [facility] (Lab) MCH (RBC) [Entitic mass] 34.8 pg [facility] (Lab) mean corpuscular HGB pg [facility] (Lab) red cell distri width % [facility] (Lab) CBC with AUTO DIFFon 022 BAS0 % 0.80 % Normal 0-2 [facility] Comment on above: Performed By: #### C BC ####[facility] [place] [address] Basophils (Bld) [#/Vol] 0.1 10*3/uL [facility] (Lab) Comment on above: Performed By: #### C BC ####[facility] [place] [address] Eosinophils (Bld) [#/Vol] 0.3 10*3/uL [facility] (Lab) Comment on above: Performed By: #### C BC ####[facility] [place] [address] Eosinophils/100 WBC (Bld) 3.7 % [facility] (Lab) Comment on above: Performed By: #### C BC ####[facility] [place] [address] GRAN # 4.9 K/uL Normal 2.2-9.1 [facility] Comment on above: Performed By: #### C BC ####[facility] [place] [address] GRAN % 66.9 % Normal 42-80 [facility] Comment on above: Performed By: #### C BC ####[facility] [place] [address] Hematocrit (Bld) [Volume fraction] 40.4 % [facility] (Lab) Comment on above: Performed By: #### C BC ####[facility] [place] [address] Hemoglobin (Bld) [Mass/Vol] 14.0 g/dL [facility] (Lab) Comment on above: Performed By: #### C BC ####[facility] [place] [address] Lymphocytes (Bld) [#/Vol] 1.5 10*3/uL [facility] (Lab) Comment on above: Performed By: #### C BC ####[facility] [place] [address] Lymphocytes/100 WBC (Bld) 21.1 % [facility] (Lab) Comment on above: Performed By: #### C BC ####[facility] [place] [address] MCV (RBC) [Entitic vol] 86.0 fL [facility] (Lab) Comment on above: Performed By: #### C BC ####[facility] [place] [address] MEAN CORPUSCULAR HGB 29.9 pg Normal 26.0-32.0 [facility] Comment on above: Performed By: #### C BC ####[facility] [place] [address] MEAN CORPUSCULAR HGB CONC 34.8 g/dL Normal 31.0-36.0 [facility] Comment on above: Performed By: #### C BC ####[facility] [place] [address] MONO DISTRIB WIDTH Not performed [facility] (Lab) Comment on above: Performed By: #### C BC ####[facility] [place] [address] Monocytes (Bld) [#/Vol] 0.5 10*3/uL [facility] (Lab) Comment on above: Performed By: #### C BC ####[facility] [place] [address] Monocytes/100 WBC (Bld) 7.5 % [facility] (Lab) Comment on above: Performed By: #### C BC ####[facility] [facility] [place] [address] Platelet mean volume (Bld) [Entitic vol] 8.7 fL [facility] (Lab) Comment on above: Performed By: #### C BC ####[facility] [facility] [place] [address] Platelets (Bld) [#/Vol] 207 10*3/uL [facility] (Lab) Comment on above: Performed By: #### C BC ####[facility] [place] [address] RBC (Bld) [#/Vol] 4.69 10*6/uL [facility] (Lab) Comment on above: Performed By: #### C BC ####[facility] [place] [address] RED CELL DISTRI WIDTH 15.2 % Normal 11.0-15.5 [facility] Comment on above: Performed By: #### C BC ####[facility] [place] [address] WBC (Bld) [#/Vol] 7.3 10*3/uL [facility] (Lab) Comment on above: Performed By: #### C BC ####[facility] [place] [address] No Panel Informationon 08-14 NEGATED: Highlighted [facility] [employer] Work Phone: No Panel Informationon 08-07 NEGATED: Highlighted [facility] (Radiology) LABORATORYOrdered By: SYSTEM SYSTEM on 07-31-2022 [...] 10^3/mcL AH Workflow SS Basophils/100 WBC (Bld) 0.5 % [...] - 10.8 10^3/mcL Workflow SS LABORATORYOrdered By: Camille Campbell on 07-31-2022 Appearance (U) Clear (07/31/22 9:46 AM) Invalid Interpretation Code Clear AH Auto Urine SS Bilirubin Ql (U) Negative (07/31/22 9:46 AM) Invalid Interpretation Code Neg-Trace AH Auto Urine SS Color (U) Straw (07/31/22 9:46 AM) Invalid Interpretation Code AH Auto Urine SS Glucose Test strip (U) [Mass/Vol] Negative Invalid Interpretation Code Negativemg/ dL AH Auto Urine SS Hemoglobin Auto test strip (U) [Mass/Vol] Negative (07/31/22 9:46 AM) Invalid Interpretation Code Neg-Trace AH Auto Urine SS Ketones Ql (U) Negative Invalid Interpretation Code Neg-Tracemg /dL AH Auto Urine SS UA Leuk Est Negative (07/31/22 9:46 AM) Invalid Interpretation Code Negative AH Auto Urine SS UA Nitrite Negative (07/31/22 9:46 AM) Invalid Interpretation Code Negative AH Auto Urine SS UA pH 5.5 (07/31/22 9:46 AM) Invalid Interpretation Code 5.0 - 8.0 AH Auto Urine SS UA Protein Negative Invalid Interpretation Code Negativemg/ dL AH Auto Urine SS UA Spec Grav <=1.005 *ABN* (07/31/22 9:46 AM) Invalid Interpretation Code 1.006-1.029 AH Auto Urine SS UA Specimen Type Clean Catch (07/31/22 9:46 AM) Invalid Interpretation Code AH Auto Urine SS UA Urobilinogen 0.2 E.U./dL Invalid Interpretation Code 0.2-1.0E.U. /dL AH Auto Urine SS LABORATORYOrdered By: Cari [...] NEGATED: Highlighted row [facility] PFT,ST,TEEon 04-27-2022 PFT,ST,ANTON Patient name: YUE ANGULO MR#: [id number] Location: [facility] Acc#: [id number] Admit/Service Date: 04/24/22 : 1960 Age: 61 [...] defect. CARTER/RYAN @ 12:27 @ 13:49 # [id number] Ike Smith 04/27/22 1227 04/27/22 1349 Electronically Signed Date/Time: 05/02/22 0959 [facility] LUNG PERFUSION/VENT GASon LUNG PERFUSION/VENT GAS YUE ANGULO Fe male [id number] Ordering physician: Carley Townsend LOC:NUC [id number] Attending physician: Carley Townsend 1960 7 0 DOS: 04/24/22 Acc#: [id number] Exam/Proc: LUNG PERFUSION/VENT GAS Dept: NUCLEAR MEDICINE [...] REPORT SIGNATURE ON FILE Electronically Signed Date/Time: 04/25/22 0846 Dictated Date/time: 04/25/22 08 CC: Normal [facility] BASIC METABOLIC PANELon 08-0 Anion gap [Moles/Vol] 6.4 mmol/L Low 11-23 [facility] Comment on above: Performed By: #### B MP #### [facility] [address] [place] [address] Calcium [Mass/Vol] 9.0 mg/dL Normal 8.5-10.1 [facility] Comment on above: Performed By: #### B MP #### [facility] [address] [place] [address] Chloride [Moles/Vol] 107 mmol/L Normal 98-107 [facility] Comment on above: Performed By: #### B MP #### [facility] [address] [place] [address] CO2 [Moles/Vol] 29.0 mmol/L Normal 21-32 [facility] Comment on above: Performed By: #### B MP #### [facility] [address] [place] [address] Creatinine [Mass/Vol] 0.80 mg/dL Normal 0.55-1.02 [facility] Comment on above: Performed By: #### B MP #### [facility] [address] [place] [address] GFR > 60.0 [facility] Comment on above: Performed By: #### B MP #### [facility] [address] [place] [address] GFR AM > 60.0 [facility] Comment on above: Result Comment: THE NORMAL LEVEL OF GFR VARIES ACCORDING TO AGE, SEX, AND BODY SIZE. A GFR LEVEL OF LESS THAN 60 ML/MIN REPRESENTS LOSS OF THE ADULT LEVEL OF NORMAL KIDNEY FUNCTION. Performed By: #### B MP #### [facility] [address] [place] [address] Glucose [Mass/Vol] 98 mg/dL Normal 70-100 [facility] Comment on above: Performed By: #### B MP #### [facility] [address] [place] [address] Potassium [Moles/Vol] 3.5 mmol/L Normal 3.5-5.1 [facility] Comment on above: Performed By: #### B MP #### [facility] [address] [place] [address] Sodium [Moles/Vol] 139 mmol/L Normal 136-145 [facility] Comment on above: Performed By: #### B MP #### [facility] [address] [place] [address] Urea nitrogen [Mass/Vol] 18.0 mg/dL Normal 7-18 [facility] Comment on above: Performed By: #### B MP #### [facility] [address] [place] [address] CHEST-2 VIEWon 04-24-2022 CHEST-2 VIEW YUE ANGULO Female [id number] Ordering physician: Carley Townsend LOC:NUC [id number] Attending physician: Carley Townsend 1960 7 0 DOS: 04/24/22 Acc#: [id number] Exam/Proc: CHEST-2 VIEW Dept: RADIOLOGY HISTORY: Dyspnea, [...] 04/24/2022 12:09:46 PM EST Workstation ID : [id number] REPORT SIGNATURE ON FILE Electronically Signed Date/Time: 04/24/22 1209 Dictated Date/time: 04/24/22 1206 CC: [facility] LABORATORYOrdered By: SYSTEM SYSTEM on 04-12-2022 CRP [...] patients between the ages of 18-89 years. Absolute lymphocyte counton 03-14-2022 Lymphocytes Auto (Unsp spec) [#/Vol] 2.07 10*3/uL 0.83-4.51 [facility] Work Phone: Basophil percentageon 2021 Basophils/100 WBC (Bld) 0.4 % 0-1 [facility] Work Phone: Chloride [Moles/Vol] 106 mmol/L 98-107 [facility] Work Phone: Eosinophils/100 WBC (Bld) 1.6 % 0-5 [facility] Work Phone: Glucose [Mass/Vol] 118 mg/dL 74-106 [facility] Work Phone: Comment on above: Fasting Glucose resu lt from 100 to 125 mg/dL suggests IMPAIRED HOMEOSTASIS per A.D.A. criteria. Neutrophils (Bld) [#/Vol] 7.1 10*3/uL 2.0-7.7 [facility] Work Phone: Neutrophils/100 WBC (Bld) 71.1 % 47-70 [facility] Work Phone: Potassium [Moles/Vol] 3.6 mmol/L 3.5-5.1 [facility] Work Phone: Sodium [Moles/Vol] 140 mmol/L 136-145 [facility] Work Phone: WBC (Bld) [#/Vol] 10.0 10*3/uL 4.4-11.0 [facility] Work Phone: Blood erythrocytes count (nu mber/volume)on 03-14-2022 RBC (Bld) [#/Vol] 4.54 10*6/uL 4.2-5.4 [facility] Work Phone: Blood hemoglobin measurement (mass/volume)on 03-14-2022 Hemoglobin (Bld) [Mass/Vol] 14.1 g/dL 12.0-15.0 [facility] Work Phone: Blood lymphocytes/100 leukoc yteson 03-14-2022 Lymphocytes/100 WBC (Bld) 20.7 % 19-41 [facility] Work Phone: Blood monocytes/100 leukocyt eson 03-14-2022 Monocytes/100 WBC (Bld) 5.5 % 0-10 [facility] Work Phone: Blood platelet mean volumeon 03-14-2022 Platelet mean volume (Bld) [Entitic vol] 10.2 fL 6.2-12.0 [facility] Work Phone: Determination of erythrocyte mean corpuscular volume (MCV)on 03-14-2022 MCV (RBC) [Entitic vol] 89.6 fL 81-99 [facility] Work Phone: Hematocrit Auto (Bld) [Volum e fraction]on 03-14-2022 Hematocrit (Bld) [Volume fraction] 40.7 % 37-47 [facility] Work Phone: [phone] Laboratory - Chemistry and C hemistry - challengeon 03-14-2022 CO2 [Moles/Vol] 28.0 mmol/L 21.0-32.0 [facility] Work Phone: Urea nitrogen/Creatinine [Mass ratio] 24.1 mg/mg 10-20 [facility] Work Phone: Laboratory - Hematology and Cell countson 03-14-2022 Erythrocyte distribution width (RBC) [Entitic vol] 44.9 fL 35.1-43.9 [facility] Work Phone: Erythrocyte distribution width (RBC) [Ratio] 14.1 % 11.6-14.6 [facility] Work Phone: Immature granulocytes/100 WBC (Bld) 0.700 % 0.0-0.9 [facility] Work Phone: Comment on above: IG% - Immature Granu locytes (promyelocytes, myelocytes and metamyelocytes) > 1% indicates that a LEFT SHIFT is Present. MCH (RBC) [Entitic mass] 31.1 pg 27.0-32.0 [facility] Work Phone: Nucleated RBC/100 WBC (Bld) [Ratio] 0 % 0-5 [facility] Work Phone: MCHC Auto (RBC) [Mass/Vol]on 03-14-2022 MCHC (RBC) [Mass/Vol] 34.6 g/dL 32-36 [facility] Work Phone: No Panel Informationon 03-14 Troponin I High Sensitivity 5 pg/mL 3.0-54.0 [facility] Work Phone: Comment on above: Please Note: New Linnea t Units and Gender Specific Reference Ranges. For more information see Policy Stat Procedure [place] High Sensitivity Troponin (TNIH) and attachments. Estimated Creatinine Clearance Calc 64.37 ml/min [facility] Work Phone: Estimated GFR (MDRD) Amer 85 mL/min >60 [facility] Work Phone: Comment on above: GFR Calc Estimated GFR (MDRD) Non-Af Amer 70 mL/min >60 [facility] Work Phone: Comment on above: Non- GFR Calc Platelets bldon 03-14-2022 Platelets (Bld) [#/Vol] 228 10*3/uL 150-450 [facility] Work Phone: Serum or plasma calcium angie urement (mass/volume)on 03-14-2022 Calcium [Mass/Vol] 9.6 mg/dL 8.5-10.1 [facility] Work Phone: Serum or plasma creatinine m easurement (mass/volume)on 03-14-2022 Creatinine [Mass/Vol] 0.87 mg/dL 0.55-1.02 [facility] Work Phone: Comment on above: The validity of the calculated GFR & GFRAA in patients over 70 years has not been determined. Clinical correlation is essential. Serum or plasma urea nitroge n measurement (mass/volume)on 03-14-2022 Urea nitrogen [Mass/Vol] 21 mg/dL 7-18 [facility] Work Phone: Thin prep Papanicolaou smear with manual screeningon 03-14-2022 Thin prep Papanicolaou smear with manual screening 6 5-15 [facility] Work Phone: CHEST-2 VIEWon 03-02-2022 CHEST-2 VIEW YUE ANGULO Female [id number] Ordering physician: Lina Zendejas LOC:RAD [id number] Attending physician: Lina Zendejas 1960 61 DOS: 03/02/22 Acc#: [id number] Exam/Proc: CHEST-2 VIEW Dept: RADIOLOGY EXAMINATION: TWO [...] Date/Time: 03/02/222102 Dictated Date/time: 03/02/222101 CC: Normal [facility] T3 TOTALon 02-28-2022 T3 TOTAL 105 ng/dL Normal 71-180 [facility] Comment on above: Result Comment: Perf ormed At: [facility] [address] [id number] Craig Fernandez PhD [id number] Performed By: #### L 500.16363, L500.45620, L500.28179 #### [facility] [address] [place] [address] #### L500.76262 #### [facility] [address] [place] [address] MAGNESIUMon 02-27-2022 Magnesium [Mass/Vol] 1.8 mg/dL Normal 1.6-2.6 [facility] Comment on above: Performed By: #### L 500.68701, L500.27523, L500.13970 #### [facility] [address] [place] [address] #### L500.93386 #### [facility] [address] [place] [address] PBNP TESTon 02-27-2022 Natriuretic peptide B (Bld) [Mass/Vol] 807 pg/mL High 0-125 [facility] Comment on above: Result Comment: NT-p [...] NEW NORMAL RANGE Performed By: #### L 500.56912 #### [facility] [address] [place] [address] PTon 02-27-2022 INR Coag (PPP) [Relative time] 0.99 {INR} Normal 0.9-1.1 [facility] Comment on above: Result Comment: Ian mmended PT INR therapeutic range for mcfp and prophylactic therapy is 2.0 - 3.0. For heart valve and shunt patients the range is 2.5 - 3.5. Performed By: #### L 300.36219, L300.76997 #### [facility] [address] [place] [address] PTS 10.8 SECONDS Normal 9.5-12.0 [facility] Comment on above: Performed By: #### L 300.51312, L300.33569 #### [facility] [address] [place] [address] PTTon 02-27-2022 aPTT Coag (Bld) [Time] 25.2 s Normal 22.0-31.5 [facility] Comment on above: Result Comment: Ther [...] using the PTT. Performed By: #### L 300.09377, L300.59008 #### [facility] [address] [place], [place] [id number] T4on 02-27-2022 T4 [Mass/Vol] 7.6 ug/dL Normal 4.8-13.9 [facility] Comment on above: Result Comment: RESU LTS MAY BE FALSELY ELEVATED AFTER THE ADMINISTRATION OF SULFASALAZINE. Performed By: #### L 500.69417, L500.69162, L500.59430 #### [facility] [address] [place] [address] #### L500.46520 #### [facility] [address] TSHon 02-27-2022 TSH 4.169 UIU/ML High 0.358-3.740 [facility] Comment on above: Result Comment: 3rd generation ultra sensitive TSH Performed By: #### L 500.18318, L500.30901, L500.19851 #### [facility] [address] [place] [address] #### L500.82314 #### [facility] [address] CHEST PA/AP AND LATERALon CHEST PA/AP AND LATERAL CHEST PA/AP LATE RAL Ordering Physician: Lina Zendejas MD PA AND LATERAL CHEST RADIOGRAPHS Clinical Statement: Chest pain Comparison: None FINDINGS: The heart is borderline enlarged. Atherosclerotic calcifications are present within the aorta. There is no focal consolidation, vascular congestion or pleural fluid. No pneumothorax. IMPRESSION: No acute process. This report was electronically signed by Aníbal Andre MD 02/27/2022 7:44 AM Reported By: ANÍBAL ANDRE M.D. Signed By: ANÍBAL ANDRE M.D. Normal [facility] 25-hydroxyvitamin D [Mass/Vo l]on 02-10-2022 vit D 25 oh NG/mL [facility] (Lab) Free T4 [Mass/Vol]on 022 thyroxine (T4) free NG/dL [facility] (Lab) LIPID PROFILE (FASTING)on CHOL/HDL RATIO 2.9 mg/dl Normal 3.7-5.6 [facility] Comment on above: Performed By: #### T SH, FT4, LIPID #### [facility] [address] [place] [address] Cholesterol [Mass/Vol] 129 mg/dL Normal 0-200 [facility] (Lab) Comment on above: Performed By: #### T SH, FT4, LIPID #### [facility] [address] [place] [address] Cholesterol in HDL [Mass/Vol] 45 mg/dL Normal 40-60 [facility] (Lab) Comment on above: Performed By: #### T SH, FT4, LIPID #### [facility] [address] [place] [address] Cholesterol in LDL [Mass/Vol] 70 mg/dL Normal 0-130 [facility] (Lab) Comment on above: Performed By: #### T SH, FT4, LIPID #### [facility] [address] [place] [address] Triglyceride [Mass/Vol] 72 mg/dL Normal 0-150 [facility] (Lab) Comment on above: Performed By: #### T SH, FT4, LIPID #### [facility] [address] [place] [address] VLDL CALCULATION 14 mg/dl Normal 5-40 [facility] Comment on above: Performed By: #### T SH, FT4, LIPID #### [facility] [address] [place] [address] Laboratory - Chemistry and C hemistry - challengeon 02-10-2022 Cholesterol.total/Stephie sterol in HDL [Mass ratio] 2.9 {ratio} [facility] (Lab) No Panel Informationon 02-10 VLDL calculation mg/dL [facility] (Lab) THYROID STIM HORMONEon 02-10 THYROID STIM HORMONE 3.240 uIU/mL Normal 0.358-3.74 [facility] Comment on above: Performed By: #### T SH, FT4, LIPID #### [facility] [address] [place] [address] THYROXINE (T4) FREEon 2021 THYROXINE (T4) FREE 1.0 ng/dL Normal 0.76-1.46 [facility] Comment on above: Performed By: #### T SH, FT4, LIPID #### [facility] [address] [place] [address] TSH Qnon 02-10-2022 thyroid stim hormone uIU/mL [facility] (Lab) VIT D 25 OHon 02-10-2022 VIT D 25 OH 39.7 ng/mL Normal 30-100 [facility] Comment on above: Result Comment: Inte rpretation of VitD results: Adult: <20 ng/mL Deficient 20 - <30 ng/mL Insufficiency 30 - 100 ng/mL Sufficiency Pediatric: <15 ng/mL Deficient 15 - <20 ng/mL Insufficiency 20 - 100 ng/mL Sufficiency Performed By: #### V ITD #### [address] [address] CBC W Auto Differential pane l (Bld)on 02-03-2022 bas0 % % [facility] (Lab) gran # K/uL [facility] (Lab) gran % % [facility] (Lab) MCH (RBC) [Entitic mass] 34.9 pg [facility] (Lab) mean corpuscular HGB pg [facility] red cell distri width % All [facility] (Lab) CBC with AUTO DIFFon 022 BAS0 % 1.30 % Normal 0-2 [facility] Comment on above: Performed By: #### C BC #### [facility] [address] [place] [address] Basophils (Bld) [#/Vol] 0.1 10*3/uL Normal 0-0.1 [facility] (Lab) Comment on above: Performed By: #### C BC #### [facility] [address] [place] [address] Eosinophils (Bld) [#/Vol] 0.2 10*3/uL Normal 0.0-1.80 [facility] (Lab) Comment on above: Performed By: #### C BC #### [facility] [address] [place] [address] Eosinophils/100 WBC (Bld) 3.7 % Normal 0-8 [facility] (Lab) Comment on above: Performed By: #### C BC #### [address] [place] [address] GRAN # 3.8 K/uL Normal 2.2-9.1 [facility] Comment on above: Performed By: #### C BC #### [facility] [address] [place] [address] GRAN % 60.7 % Normal 42-80 [facility] Comment on above: Performed By: #### C BC #### [facility] [address] [place] [address] Hematocrit (Bld) [Volume fraction] 37.4 % Normal 37.0-47.0 [facility] (Lab) Comment on above: Performed By: #### C BC #### [facility] [address] [place] [address] Hemoglobin (Bld) [Mass/Vol] 13.0 g/dL Normal 12.0-16.0 [facility] (Lab) Comment on above: Performed By: #### C BC #### [address] [place] [address] Lymphocytes (Bld) [#/Vol] 1.7 10*3/uL Normal 1.0-4.0 [facility] (Lab) Comment on above: Performed By: #### C BC #### [facility] [address] [facility] [place] [address] Lymphocytes/100 WBC (Bld) 27.7 % Normal 16-48 [facility] (Lab) Comment on above: Performed By: #### C BC #### [facility] [address] [facility] [place] [address] MCV (RBC) [Entitic vol] 87.4 fL Normal 80-97 [facility] (Lab) Comment on above: Performed By: #### C BC #### [facility] [address] [place] [address] MEAN CORPUSCULAR HGB 30.5 pg Normal 26.0-32.0 [facility] Comment on above: Performed By: #### C BC #### [facility] [address] [place] [address] MEAN CORPUSCULAR HGB CONC 34.9 g/dL Normal 31.0-36.0 [facility] Comment on above: Performed By: #### C BC #### [facility] [address] [place] [address] Monocytes (Bld) [#/Vol] 0.4 10*3/uL Normal 0.1-1.7 [facility] (Lab) Comment on above: Performed By: #### C BC #### [facility] [address] [place] [address] Monocytes/100 WBC (Bld) 6.6 % Normal 3-9 [facility] (Lab) Comment on above: Performed By: #### C BC #### [facility] [address] [place] [address] Platelet mean volume (Bld) [Entitic vol] 8.8 fL Normal 6.6-10.5 [facility] (Lab) Comment on above: Performed By: #### C BC #### [facility] [address] [place] [address] Platelets (Bld) [#/Vol] 209 10*3/uL Normal 140-450 [facility] (Lab) Comment on above: Performed By: #### C BC #### [facility] [address] [place] [address] RBC (Bld) [#/Vol] 4.28 10*6/uL Normal 4.20-5.50 [facility] (Lab) Comment on above: Performed By: #### C BC #### [facility] [address] [place] [address] RED CELL DISTRI WIDTH 15.3 % Normal 11.0-15.5 [facility] Comment on above: Performed By: #### C BC #### [facility] [address] [place] [address] WBC (Bld) [#/Vol] 6.3 10*3/uL Normal 4.0-11.0 [facility] (Lab) Comment on above: Performed By: #### C BC #### [facility] [address] [place] [address] COMPREHENSIVE METABOLIC PANE Goldy 02-03-2022 Albumin [Mass/Vol] 3.6 g/dL Normal 3.4-5.0 [facility] (Lab) Comment on above: Performed By: #### M N ####[address] [place] [address] Albumin/Globulin [Mass ratio] 1.0 {ratio} Low 1.1-1.8 [facility] (Lab) Comment on above: Performed By: #### M N ####[address] [place] [address] ALP [Catalytic activity/Vol] 108 U/L Normal 45-117 [facility] (Lab) Comment on above: Performed By: #### M N ####[address] [place] [address] ALT [Catalytic activity/Vol] 21 U/L Normal 12-78 [facility] (Lab) Comment on above: Performed By: #### M N ####[facility] [place] [address] Anion gap [Moles/Vol] 8.1 mmol/L Low 11-23 [facility] (Lab) Comment on above: Performed By: #### M N ####[facility] [facility] [place] [address] AST [Catalytic activity/Vol] 13 U/L Low 15-37 [facility] Comment on above: Performed By: #### M N ####[address] [place] [address] Bilirubin [Mass/Vol] 0.7 mg/dL Normal 0.2-1.0 [facility] (Lab) Comment on above: Performed By: #### M N ####[facility] [place] [address] Calcium [Mass/Vol] 8.9 mg/dL Normal 8.5-10.1 [facility] (Lab) Comment on above: Performed By: #### M N ####[facility] [place] [address] Chloride [Moles/Vol] 108 mmol/L High 98-107 [facility] (Lab) Comment on above: Performed By: #### M N ####[address] [place] [address] CO2 [Moles/Vol] 28.0 mmol/L Normal 21-32 [facility] (Lab) Comment on above: Performed By: #### M N ####[address] [place] [address] Creatinine [Mass/Vol] 0.70 mg/dL Normal 0.55-1.02 [facility] (Lab) Comment on above: Performed By: #### M N ####[address] [facility] [address] GFR > 60.0 [facility] (Lab) Comment on above: Performed By: #### M N ####[facility] [facility] [address] GFR AM > 60.0 [facility] (Lab) Comment on above: Result Comment: THE NORMAL LEVEL OF GFR VARIES ACCORDING TO AGE, SEX, AND BODY SIZE. A GFR LEVEL OF LESS THAN 60 ML/MIN REPRESENTS LOSS OF THE ADULT LEVEL OF NORMAL KIDNEY FUNCTION. Performed By: #### M N ####[address] [place] [address] Globulin (S) [Mass/Vol] 3.4 g/dL Normal 2.5-4.6 [facility] Comment on above: Performed By: #### M N ####[facility] [place] [address] Glucose [Mass/Vol] 99 mg/dL Normal 70-100 [facility] (Lab) Comment on above: Performed By: #### M N ####[place] [address] [place] [address] Potassium [Moles/Vol] 3.9 mmol/L Normal 3.5-5.1 [facility] (Lab) Comment on above: Performed By: #### M N ####[address] [place] [address] Protein [Mass/Vol] 7.0 g/dL Normal 6.0-8.3 [facility] (Lab) Comment on above: Performed By: #### M N ####[address] [place] [address] Sodium [Moles/Vol] 141 mmol/L Normal 136-145 [facility] (Lab) Comment on above: Performed By: #### M N ####[address] [place] [address] Urea nitrogen [Mass/Vol] 14.0 mg/dL Normal 7-18 [facility] (Lab) Comment on above: Performed By: #### M N ####[address] [place] [address] Comprehensive metabolic 2000 panelon 02-03-2022 globulin g/dL [facility] (Lab) SGOT/AST U/L Low [facility] (Lab) CBC with AUTO DIFFon 022 BAS0 % 0.60 % Normal 0-2 [facility] Comment on above: Performed By: #### D IFF (MANUAL), CBC ####[place] [address] [place] [address] Basophils (Bld) [#/Vol] 0.1 10*3/uL Normal 0-0.1 [facility] Comment on above: Performed By: #### D IFF (MANUAL), CBC ####[address] [place] [address] Eosinophils (Bld) [#/Vol] 0.1 10*3/uL Normal 0.0-1.80 [facility] Comment on above: Performed By: #### D IFF (MANUAL), CBC ####[address] [place] [address] Eosinophils/100 WBC (Bld) 0.8 % Normal 0-8 [facility] Comment on above: Performed By: #### D IFF (MANUAL), CBC ####[address] [place] [address] GRAN # 5.9 K/uL Normal 2.2-9.1 [facility] Comment on above: Performed By: #### D IFF (MANUAL), CBC ####[facility] [place] [address] GRAN % 63.7 % Normal 42-80 [facility] Comment on above: Performed By: #### D IFF (MANUAL), CBC ####[address] [place] [address] Hematocrit (Bld) [Volume fraction] 40.7 % Normal 37.0-47.0 [facility] Comment on above: Performed By: #### D IFF (MANUAL), CBC ####[address] [place] [address] Hemoglobin (Bld) [Mass/Vol] 14.1 g/dL Normal 12.0-16.0 [facility] Comment on above: Performed By: #### D IFF (MANUAL), CBC ####[address] [place] [address] Lymphocytes (Bld) [#/Vol] 2.7 10*3/uL Normal 1.0-4.0 [facility] Comment on above: Performed By: #### D IFF (MANUAL), CBC ####[address] [place] [address] Lymphocytes/100 WBC (Bld) 29.5 % Normal 16-48 [facility] Comment on above: Performed By: #### D IFF (MANUAL), CBC ####[address] [place] [address] MCV (RBC) [Entitic vol] 86.5 fL Normal 80-97 [facility] Comment on above: Performed By: #### D IFF (MANUAL), CBC ####[address] [place] [address] MEAN CORPUSCULAR HGB 30.0 pg Normal 26.0-32.0 [facility] Comment on above: Performed By: #### D IFF (MANUAL), CBC ####[address] [place] [address] MEAN CORPUSCULAR HGB CONC 34.7 g/dL Normal 31.0-36.0 [facility] Comment on above: Performed By: #### D IFF (MANUAL), CBC ####[facility] [facility] [place] [address] Monocytes (Bld) [#/Vol] 0.5 10*3/uL Normal 0.1-1.7 [facility] Comment on above: Performed By: #### D IFF (MANUAL), CBC ####[facility] [facility] [place] [address] Monocytes/100 WBC (Bld) 5.4 % Normal 3-9 [facility] Comment on above: Performed By: #### D IFF (MANUAL), CBC ####[place] [address] [place] [address] Platelet mean volume (Bld) [Entitic vol] 7.7 fL Normal 6.6-10.5 [facility] Comment on above: Performed By: #### D IFF (MANUAL), CBC ####[facility] [place] [address] Platelets (Bld) [#/Vol] 321 10*3/uL Normal 140-450 [facility] Comment on above: Performed By: #### D IFF (MANUAL), CBC ####[place] [address] [place] [address] RBC (Bld) [#/Vol] 4.71 10*6/uL Normal 4.20-5.50 [facility] Comment on above: Performed By: #### D IFF (MANUAL), CBC ####[facility] [facility] [place] [address] RED CELL DISTRI WIDTH 14.4 % Normal 11.0-15.5 [facility] Comment on above: Performed By: #### D IFF (MANUAL), CBC ####[place] [address] [place] [address] WBC (Bld) [#/Vol] 9.2 10*3/uL Normal 4.0-11.0 [facility] Comment on above: Performed By: #### D IFF (MANUAL), CBC ####[facility] [place] [address] COMPREHENSIVE METABOLIC PANE Goldy 11-13-2021 Albumin [Mass/Vol] 3.5 g/dL Normal 3.4-5.0 [facility] Comment on above: Performed By: #### M N #### [facility] [address] [place] [address] Albumin/Globulin [Mass ratio] 0.9 {ratio} Low 1.1-1.8 [facility] Comment on above: Performed By: #### M N #### [facility] [address] [place] [address] ALP [Catalytic activity/Vol] 98 U/L Normal 45-117 [facility] Comment on above: Performed By: #### M N #### [facility] [address] [place] [address] ALT [Catalytic activity/Vol] 29 U/L Normal 12-78 [facility] Comment on above: Performed By: #### M N #### [facility] [address] [place] [address] Anion gap [Moles/Vol] 10.1 mmol/L Low 11-23 [facility] Comment on above: Performed By: #### M N #### [facility] [address] [place] [address] AST [Catalytic activity/Vol] 14 U/L Low 15-37 [facility] Comment on above: Performed By: #### M N #### [facility] [address] [place] [address] Bilirubin [Mass/Vol] 0.8 mg/dL Normal 0.2-1.0 [facility] Comment on above: Performed By: #### M N #### [facility] [address] [place] [address] Calcium [Mass/Vol] 9.1 mg/dL Normal 8.5-10.1 [facility] Comment on above: Performed By: #### M N #### [facility] [address] [place] [address] Chloride [Moles/Vol] 107 mmol/L Normal 98-107 [facility] Comment on above: Performed By: #### M N #### [facility] [address] [place] [address] CO2 [Moles/Vol] 28.0 mmol/L Normal 21-32 [facility] Comment on above: Performed By: #### M N #### [facility] [address] [place] [address] Creatinine [Mass/Vol] 0.90 mg/dL Normal 0.55-1.02 [facility] Comment on above: Performed By: #### M N #### [address] [place] [address] GFR > 60.0 [facility] Comment on above: Performed By: #### M N #### [address] [place] [address] GFR AM > 60.0 [facility] Comment on above: Result Comment: THE NORMAL LEVEL OF GFR VARIES ACCORDING TO AGE, SEX, AND BODY SIZE. A GFR LEVEL OF LESS THAN 60 ML/MIN REPRESENTS LOSS OF THE ADULT LEVEL OF NORMAL KIDNEY FUNCTION. Performed By: #### M N #### [address] [place] [address] Globulin (S) [Mass/Vol] 4.0 g/dL Normal 2.5-4.6 [facility] Comment on above: Performed By: #### M N #### [address] [place] [address] Glucose [Mass/Vol] 118 mg/dL High 70-100 [facility] Comment on above: Performed By: #### M N #### [address] [place] [address] Potassium [Moles/Vol] 3.3 mmol/L Low 3.5-5.1 [facility] Comment on above: Performed By: #### M N #### [address] [place] [address] Protein [Mass/Vol] 7.5 g/dL Normal 6.0-8.3 [facility] Comment on above: Performed By: #### M N #### [address] [place] [address] Sodium [Moles/Vol] 142 mmol/L Normal 136-145 [facility] Comment on above: Performed By: #### M N #### [address] [place] [address] Urea nitrogen [Mass/Vol] 17.0 mg/dL Normal 7-18 [facility] Comment on above: Performed By: #### M N #### [address] [place] [address] DIFFERENTIALon 11-13-2021 Band form neutrophils/100 WBC (Bld) 1 % Normal 0-10 [facility] Comment on above: Performed By: #### D IFF (MANUAL), CBC ####[place] [address] [place] [address] IMMATURE GRANS NONE SEEN Normal [facility] Comment on above: Performed By: #### D IFF (MANUAL), CBC ####[place] [address] [place] [address] Lymphocytes/100 WBC (Bld) 34 % Normal 16-48 [facility] Comment on above: Performed By: #### D IFF (MANUAL), CBC ####[place] [address] [place] [address] Metamyelocytes/100 WBC (Bld) 1 % Normal 0-1 [facility] Comment on above: Performed By: #### D IFF (MANUAL), CBC ####[place] [address] [place] [address] Monocytes/100 WBC (Bld) 3 % Normal 3-9 [facility] Comment on above: Performed By: #### D IFF (MANUAL), CBC ####[place] [address] [facility] [place] [address] Neutrophils/100 WBC (Bld) 61 % Normal 42-80 [facility] Comment on above: Performed By: #### D IFF (MANUAL), CBC ####[place] [address] [place] [address] PLATELET ESTIMATE NORMAL Normal [facility] Comment on above: Performed By: #### D IFF (MANUAL), CBC ####[place] [address] [place] [address] RBC morphology finding Nom (Bld) ESSENTIALLY NORMAL Normal [facility] Comment on above: Performed By: #### D IFF (MANUAL), CBC ####[place] [address] [facility] [place] [address] TOTAL CELLS COUNTED 100 #CELLS Normal [facility] Comment on above: Performed By: #### D IFF (MANUAL), CBC ####[place] [address] [place] [address] XR Chest PA and Lateralon IMPRESSION: Peribronchial cuffing suggestive of airways inflammation with multifocal areas of pleural-parenchymal stranding suggesting interstitial infiltrates. Paper Pattern Folder: ADAM Transcribe Date/Time: Nov 03 2021 1:15P Dictated by : MADIHA VUONG MD This examination was interpreted and the report reviewed and electronically signed by: MADIHA VUONG MD on Nov 03 2021 1:17PM [facility] DIVISION OF RADIOLOGY * * *Final Report* [...] relevant examinations available for comparison within the [facility]. RESULT: Lines, tubes, and devices: [...] structures are intact DIVISION OF RADIOLOGY Provider, [facility] - 11/03/2021 * * *Final Report* [...] relevant examinations available for comparison within the [facility]. RESULT: Lines, tubes, and devices: [...] areas of pleural-parenchymal stranding suggesting interstitial infiltrates. Paper Pattern Folder: [employer] Transcribe Date/Time: Nov 03 2021 1:15P Dictated by : MADIHA VUONG MD This examination was interpreted and the report reviewed and electronically signed by: MADIHA VUONG MD on Nov 03 2021 1:17PM EST [facility] Radiology Study observation (narrative) [facility] XR Chest PA and LateralOrder ed By: [facility] Provider on 11-03-2021 [facility] 25-hydroxyvitamin D [Mass/Vo l]on 02-14-2021 vit D 25 oh NG/mL [facility] (Lab) CBC W Auto Differential pane l (Bld)on 02-14-2021 bas0 % % [facility] (Lab) Basophils (Bld) [#/Vol] 0.1 10*3/uL [facility] (Lab) Eosinophils (Bld) [#/Vol] 0.2 10*3/uL [facility] (Lab) Eosinophils/100 WBC (Bld) 2.7 % [facility] (Lab) gran # K/uL [facility] (Lab) gran % % [facility] (Lab) Hematocrit (Bld) [Volume fraction] 39.0 % [facility] (Lab) Hemoglobin (Bld) [Mass/Vol] 13.7 g/dL [facility] (Lab) Lymphocytes (Bld) [#/Vol] 2.0 10*3/uL [facility] (Lab) Lymphocytes/100 WBC (Bld) 25.2 % [facility] (Lab) MCH (RBC) [Entitic mass] 35.2 pg [facility] (Lab) MCV (RBC) [Entitic vol] 86.9 fL [facility] (Lab) mean corpuscular HGB pg [facility] (Lab) Monocytes (Bld) [#/Vol] 0.6 10*3/uL [facility] (Lab) Monocytes/100 WBC (Bld) 7.0 % [facility] (Lab) Platelet mean volume (Bld) [Entitic vol] 8.5 fL [facility] (Lab) Platelets (Bld) [#/Vol] 213 10*3/uL [facility] (Lab) RBC (Bld) [#/Vol] 4.49 10*6/uL [facility] (Lab) red cell distri width % All [facility] (Lab) WBC (Bld) [#/Vol] 8.1 10*3/uL [facility] (Lab) Comprehensive metabolic 2000 panelon 02-14-2021 Albumin [Mass/Vol] 3.8 g/dL [facility] (Lab) Albumin/Globulin [Mass ratio] 1.2 {ratio} [facility] (Lab) ALP [Catalytic activity/Vol] 108 U/L [facility] (Lab) ALT [Catalytic activity/Vol] 21 U/L [facility] (Lab) Anion gap [Moles/Vol] 7.4 mmol/L Low [facility] (Lab) Bilirubin [Mass/Vol] 0.9 mg/dL [facility] (Lab) Calcium [Mass/Vol] 8.5 mg/dL [facility] (Lab) Chloride [Moles/Vol] 108 mmol/L High [facility] (Lab) CO2 [Moles/Vol] 28.0 mmol/L [facility] (Lab) Creatinine [Mass/Vol] 0.80 mg/dL [facility] (Lab) GFR > 60.0 [facility] (Lab) GFR AM > 60.0 [facility] (Lab) globulin g/dL [facility] (Lab) Glucose [Mass/Vol] 99 mg/dL [facility] (Lab) Potassium [Moles/Vol] 3.5 mmol/L [facility] (Lab) Protein [Mass/Vol] 7.1 g/dL [facility] (Lab) SGOT/AST U/L [facility] (Lab) Sodium [Moles/Vol] 140 mmol/L [facility] (Lab) Urea nitrogen [Mass/Vol] 19.0 mg/dL High [facility] (Lab) Free T4 [Mass/Vol]on 021 thyroxine (T4) free NG/dL [facility] (Lab) HbA1c HPLC (Bld) [Mass fract ion]on 02-14-2021 est avg glucose 88 [facility] (Lab) HbA1c (Bld) [Mass fraction] 4.7 % [facility] (Lab) Laboratory - Chemistry and C hemistry - challengeon 02-14-2021 Cholesterol [Mass/Vol] 125 mg[facility] Cholesterol in HDL [Mass/Vol] 44 mg/dL [facility] (Lab) Cholesterol in LDL [Mass/Vol] 68 mg/dL [facility] (Lab) Cholesterol.total/Stephie sterol in HDL [Mass ratio] 2.9 {ratio} [facility] (Lab) Triglyceride [Mass/Vol] 64 mg/dL [facility] No Panel Informationon 02-14 VLDL calculation mg/dL [facility] (Lab) TSH Qnon 02-14-2021 thyroid stim hormone uIU/mL High [facility] (Lab) No Panel Information NEGATED: Highlighted [facility] Vital Signs Date Time Vital Sign Value Performing Clinician Facility 05-20-2025 01:00-0400 Body height 166.37 cm [facility] 05-20-2025 01:00-0400 Body mass index (BMI) [Ratio] 29.3 kg/m2 [facility] 05-20-2025 01:00-0400 Body temperature 97.4 [degF] [facility] [facility] 05-20-2025 01:00-0400 Body weight 81.1 kg Lina [employer] 05-20-2025 01:00-0400 Diastolic blood pressure 66 mm[Hg] Linamel [employer] 05-20-2025 01:00-0400 Heart rate 60 /min Linamel [employer] 05-20-2025 01:00-0400 SaO2% (BldA) [Mass fraction] 98 % Lina Zendejas [employer] 05-20-2025 01:00-0400 Systolic blood pressure 130 mm[Hg] Lina Zendejas [employer] 01-13-2025 09:22-0400 Diastolic Blood Pressure Non-Invasive 77 mm[Hg] HANK MCMULLEN MD [address] [place] [address] 01-13-2025 09:22-0400 Heart rate 67 /min HANK MCMULLEN MD [address] 01-13-2025 09:22-0400 Systolic Blood Pressure Non-Invasive 127 mm[Hg] HANK MCMULLEN MD [address] [place] [address] 01-13-2025 09:05-0400 Diastolic Blood Pressure Non-Invasive 61 mm[Hg] HANK MCMULLEN MD [address] [place] [address] 01-13-2025 09:05-0400 Heart rate 52 /min HANK MCMULLEN MD [address] [place] [address] 01-13-2025 09:05-0400 Systolic Blood Pressure Non-Invasive 139 mm[Hg] HANK MCMULLEN MD [address] [place] [address] 01-13-2025 08:50-0400 Diastolic Blood Pressure Non-Invasive 63 mm[Hg] HANK MCMULLEN MD [address] [place] [address] 01-13-2025 08:50-0400 Heart rate 71 /min HANK MCMULLEN MD [address] [place] [address] 01-13-2025 08:50-0400 Respiratory rate 18 /min HANK MCMULLEN MD [address] [place] [address] 01-13-2025 08:50-0400 Systolic Blood Pressure Non-Invasive 125 mm[Hg] HANK MCMULLEN MD [address] [place] [address] 01-13-2025 08:35-0400 Respiratory rate 18 /min HANK MCMULLEN MD [address] [place] [address] 01-13-2025 06:20-0400 Body height 165.1 cm HANK MCMULLEN MD [address] [place] [address] 01-13-2025 06:20-0400 Body temperature 97.7 [degF] HANK MCMULLEN MD [address] [place] [address] 01-13-2025 06:20-0400 Body weight 82.6 kg HANK MCMULLEN MD [address] [place] [address] 01-13-2025 06:20-0400 Heart rate 64 /min HANK MCMULLEN MD [address] [place] [address] 01-13-2025 06:20-0400 Respiratory rate 18 /min HANK MCMULLEN MD [address] [place] [address] 12-10-2024 01:00-0400 Body height 166.37 cm [facility]ina [employer] 12-10-2024 01:00-0400 Body mass index (BMI) [Ratio] 29.8 kg/m2 Linamel [employer] 12-10-2024 01:00-0400 Body temperature 97.3 [degF] Linamel Zendejas [employer] 12-10-2024 01:00-0400 Body weight 82.6 kg Lina Zendejas [employer] 12-10-2024 01:00-0400 Diastolic blood pressure 60 mm[Hg] Linamel Zendejas [employer] 12-10-2024 01:00-0400 Heart rate 65 /min Lina Zendejas [employer] 12-10-2024 01:00-0400 SaO2% (BldA) [Mass fraction] 98 % Lina Zendejas [employer] 12-10-2024 01:00-0400 Systolic blood pressure 116 mm[Hg] Lina Zendejas [employer] 12-09-2024 13:45-0400 Diastolic blood pressure 67 mm[Hg] Dr. Lina Zendejas MD Work Phone: [facility] 12-09-2024 13:45-0400 Heart rate 63 /min Dr. Lina Zendejas MD Work Phone: [facility] 12-09-2024 13:45-0400 Respiratory rate 18 /min Dr. Lina Zendejas MD Work Phone: [facility] 12-09-2024 13:45-0400 SaO2% (BldA) [Mass fraction] 97 % Dr. Lina Zendejas MD Work Phone: [facility] 12-09-2024 13:45-0400 Systolic blood pressure 122 mm[Hg] Dr. Lina Zendejas MD Work Phone: [facility] 12-09-2024 08:51-0400 Body height 165.[address] Lina Zendejas MD Work Phone: [facility] 12-09-2024 08:51-0400 Body temperature 98.9 [degF] Dr. Lina Zendejas MD Work Phone: [facility] 08-06-2024 00:00-0500 Body height 166.37 cm Lina Zendejas [employer] 08-06-2024 00:00-0500 Body mass index (BMI) [Ratio] 28.8 kg/m2 Lina Zendejas [employer] 08-06-2024 00:00-0500 Body temperature 96.4 [degF] Lina Zendejas [employer] 08-06-2024 00:00-0500 Body weight 79.7 kg Lina Zendejas [employer] 08-06-2024 00:00-0500 Diastolic blood pressure 64 mm[Hg] Lina Zendejas [employer] 08-06-2024 00:00-0500 Heart rate 69 /min Lina Zendejas [employer] 08-06-2024 00:00-0500 SaO2% (BldA) [Mass fraction] 99 % Lina Zendejas [employer] 08-06-2024 00:00-0500 Systolic blood pressure 118 mm[Hg] Lina Zendejas [employer] 07-21-2024 01:00-0400 Body height 166.37 cm Cleemnt Velez [employer] 07-21-2024 01:00-0400 Body mass index (BMI) [Ratio] 28.5 kg/m2 Clement Rep [employer] 07-21-2024 01:00-0400 Body temperature 97.5 [degF] Clement Rep [facility] [facility] 07-21-2024 01:00-0400 Body weight 78.88 kg Clement Rep [facility] [facility] 07-21-2024 01:00-0400 Diastolic blood pressure 50 mm[Hg] Clement Rep [facility] [facility] 07-21-2024 01:00-0400 Heart rate 91 /min Clement Wyoos [employer] 07-21-2024 01:00-0400 SaO2% (BldA) [Mass fraction] 99 % Clement Wyoos [employer] 07-21-2024 01:00-0400 Systolic blood pressure 98 mm[Hg] Clement Rep [facility] 05-26-2024 15:17-0400 Blood Pressure Cuff Size DR NAKUL SIERRA MD [facility] 05-26-2024 15:17-[address] NAKUL SIERRA MD [facility] 05-26-2024 15:17-[address] NAKUL SIERRA MD [facility] 05-26-2024 15:17-0400 Body temperature 98.06 [degF] DR NAKUL SIERRA MD [address] 05-26-2024 15:17-0400 Diastolic Blood Pressure Non-Invasive 50 mm[Hg] DR NAKUL SIERRA MD [address] [place] [address] 05-26-2024 15:17-0400 Heart rate 47 /min DR NAKUL SIERRA MD [address] [place] [address] 05-26-2024 15:17-0400 Reason For Taking VItal Signs DR NAKUL SIERRA MD [address] [place] [address] 05-26-2024 15:17-0400 Respiratory rate 18 /min DR NAKUL SIERRA MD [address] [place] [address] 05-26-2024 15:17-0400 Systolic Blood Pressure Non-Invasive 106 mm[Hg] DR NAKUL SIERRA MD [address] [place] [address] 05-26-2024 12:06-0400 Heart rate 50 /min DR NAKUL SIERRA MD [address] [place] [address] 05-26-2024 12:06-0400 Respiratory rate 18 /min DR NAKUL SIERRA MD [address] [place] [address] 05-26-2024 11:26-0400 Blood Pressure Cuff Size DR NAKUL SIERRA MD [address] [place] [address] 05-26-2024 11:26-[address] NAKUL SIERRA MD [address] [place] [address] 05-26-2024 11:26-[address] NAKUL SIERRA MD [address] [place] [address] 05-26-2024 11:26-0400 Body temperature 98.24 [degF] DR NAKUL SIERRA MD [address] [place] [address] 05-26-2024 11:26-0400 Diastolic Blood Pressure Non-Invasive 38 mm[Hg] DR NAKUL SIERRA MD [address] [place] [address] 05-26-2024 11:26-0400 Heart rate 48 /min DR NAKUL SIERRA MD [address] [place] [address] 05-26-2024 11:26-0400 Reason For Taking VItal Signs DR NAKUL SIERRA MD [address] [place] [address] 05-26-2024 11:26-0400 Respiratory rate 18 /min DR NAKUL SIERRA MD [address] [place] [address] 05-26-2024 11:26-0400 Systolic Blood Pressure Non-Invasive 100 mm[Hg] DR NAKUL SIERRA MD [address] [place] [address] 05-26-2024 11:06-0400 Heart rate 54 /min DR NAKUL SIERRA MD [address] [place] [address] 05-26-2024 09:03-[address] NAKUL SIERRA MD [address] [place] [address] 05-26-2024 09:03-[address] NAKUL SIERRA MD [address] [place] [address] 05-26-2024 09:03-0400 Diastolic Blood Pressure Non-Invasive 40 mm[Hg] DR NAKUL SIERRA MD [address] [place] [address] 05-26-2024 09:03-0400 Systolic Blood Pressure Non-Invasive 109 mm[Hg] DR NAKUL SIERRA MD [address] [place] [address] 05-26-2024 05:45-0400 Mean blood pressure 69 mm[Hg] DR NAKUL SIERRA MD [address] [place] [address] 05-26-2024 03:57-0400 Body temperature 98.24 [degF] DR NAKUL SIERRA MD [address] [place] [address] 05-26-2024 03:57-0400 Reason For Taking VItal Signs DR NAKUL SIERRA MD [address] [place] [address] 05-25-2024 23:00-04[address] Blood Pressure Cuff Size DR NAKUL SIERRA MD [address] [place] [address] 05-25-2024 14:32-0400 Mean blood pressure 65 mm[Hg] DR NAKUL SIERRA MD [address] [place] [address] 05-25-2024 11:45-0400 Heart rate 60 /min DR NAKUL SIERRA MD [address] [place] [address] 05-25-2024 06:37-0400 Body temperature 97.7 [degF] DR NAKUL SIERRA MD [address] [place] [address] 05-25-2024 04:29-0400 Body temperature 98.42 [degF] DR NAKUL SIERRA MD [address] [place] [address] 05-24-2024 18:42-0400 Mean blood pressure 70 mm[Hg] DR NAKUL SIERRA MD [address] [place] [address] 05-24-2024 11:05-0400 Heart rate 65 /min DR NAKUL SIERRA MD [address] [place] [address] 05-24-2024 04:16-0400 Body temperature 97.52 [degF] DR NAKUL SIERRA MD [address] [place] [address] 05-23-2024 11:32-0400 Body height 165.[address] NAKUL SIERRA MD [address] [place] [address] 05-23-2024 11:32-0400 Body weight [address] NAKUL SIERRA MD [address] [place] [address] 05-23-2024 11:32-0400 Body weight 29.72 kg/m2 DR NAKUL SIERRA MD [address] [place] [address] 04-09-2024 01:00-0400 Body height 166.37 cm Lina Zendejas [facility] [facility] 04-09-2024 01:00-0400 Body mass index (BMI) [Ratio] 29 kg/m2 Lina Machadojyoti [employer] 04-09-2024 01:00-0400 Body temperature 97 [degF] Lina Butlermahsa [employer] 04-09-2024 01:00-0400 Body weight 80.33 kg Lina Zendejas [facility] [facility] 04-09-2024 01:00-0400 Diastolic blood pressure 70 mm[Hg] Lina Zendejas [employer] 04-09-2024 01:00-0400 Heart rate 78 /min Lina Zendejas [employer] 04-09-2024 01:00-0400 SaO2% (BldA) [Mass fraction] 99 % Lina Zendejas [employer] 04-09-2024 01:00-0400 Systolic blood pressure 118 mm[Hg] Lina Zendejas [employer] 03-20-2024 01:00-0400 Body height 166.37 cm Clement Rep [employer] [facility] 03-20-2024 01:00-0400 Body mass index (BMI) [Ratio] 28.5 kg/m2 Clement Wyoos [employer] 03-20-2024 01:00-0400 Body temperature 97.7 [degF] Clement Repp [employer] 03-20-2024 01:00-0400 Body weight 79.02 kg Clement Repp [facility] [facility] 03-20-2024 01:00-0400 Diastolic blood pressure 60 mm[Hg] Clement Repp [employer] [facility] 03-20-2024 01:00-0400 Heart rate 63 /min Clement Velez [employer] 03-20-2024 01:00-0400 SaO2% (BldA) [Mass fraction] 98 % Clement Velez [facility] [facility] 03-20-2024 01:00-0400 Systolic blood pressure 120 mm[Hg] Clement Velez [facility] [facility] 03-05-2024 01:00-0400 Body height 166.37 cm Taylor Eusebio [employer] 03-05-2024 01:00-0400 Body mass index (BMI) [Ratio] 28.4 kg/m2 Taylor Eusebio [employer] 03-05-2024 01:00-0400 Body temperature 97.2 [degF] Taylor Eusebio [employer] [facility] 03-05-2024 01:00-0400 Body weight 78.47 kg Taylor Kaplan [facility] [facility] 03-05-2024 01:00-0400 Diastolic blood pressure 60 mm[Hg] Taylor Kaplan [facility] [facility] 03-05-2024 01:00-0400 Heart rate 73 /min Taylor Kaplan [facility] [facility] 03-05-2024 01:00-0400 SaO2% (BldA) [Mass fraction] 96 % Taylor Kaplan [facility] [facility] 03-05-2024 01:00-0400 Systolic blood pressure 124 mm[Hg] Taylor Kaplan [employer] [facility] 12-30-2023 11:52-0400 Body temperature 97.1 [degF] LINA RODOCOY Work Phone: [facility] 12-30-2023 11:52-0400 Diastolic blood pressure 53 mm[Hg] LINA RODOCOY Work Phone: [facility] 12-30-2023 11:52-0400 Heart rate 70 /min LINA RODOCOY Work Phone: [facility] 12-30-2023 11:52-0400 Respiratory rate 16 /min LINA RODOCOY Work Phone: [facility] 12-30-2023 11:52-0400 SaO2% (BldA) [Mass fraction] 95 % LINA RODOCOY Work Phone: [facility] 12-30-2023 11:52-0400 Systolic blood pressure 110 mm[Hg] LINA RODOCOY Work Phone: [facility] 12-30-2023 11:35-0400 Inhaled oxygen flow rate 2 L/min LINA RODOCOY Work Phone: [facility] 12-30-2023 09:38-0400 Body height 165.1 cm LINA RODOCOY Work Phone: [facility] 12-30-2023 09:38-0400 Body mass index (BMI) [Ratio] 28.6 kg/m2 LINA ZENDEJAS Work Phone: [facility] 12-30-2023 09:38-0400 Body weight 78.01 kg LINA ZENDEJAS Work Phone: [facility] 12-05-2023 01:00-0400 Body height 166.37 cm Lina Zendejas [facility] [facility] 12-05-2023 01:00-0400 Body mass index (BMI) [Ratio] 28.4 kg/m2 Lina Zendejas [facility] 12-05-2023 01:00-0400 Body temperature 98.4 [degF] Lina Zendejas [facility] 12-05-2023 01:00-0400 Body weight 78.56 kg Lina Zendejas [facility] 12-05-2023 01:00-0400 Diastolic blood pressure 66 mm[Hg] Lina Zendejas [facility] 12-05-2023 01:00-0400 Heart rate 72 /min Lina Zendejas [facility] 12-05-2023 01:00-0400 SaO2% (BldA) [Mass fraction] 94 % Lina Zendejas [facility] 12-05-2023 01:00-0400 Systolic blood pressure 110 mm[Hg] Lina Zendejas [facility] [facility] 11-14-2023 00:00-0500 Body height 166.37 cm Clement Repp [facility] [facility] 11-14-2023 00:00-0500 Body mass index (BMI) [Ratio] 28.2 kg/m2 Clement Repp [facility] 11-14-2023 00:00-0500 Body temperature 96.1 [degF] Clement Repp [facility] 11-14-2023 00:00-0500 Body weight 77.97 kg Clement Repp [facility] 11-14-2023 00:00-0500 Diastolic blood pressure 62 mm[Hg] Clement Repp [facility] 11-14-2023 00:00-0500 Heart rate 80 /min Clement Repp [facility] 11-14-2023 00:00-0500 SaO2% (BldA) [Mass fraction] 99 % Clement Repp [facility] 11-14-2023 00:00-0500 Systolic blood pressure 104 mm[Hg] Clement Repp [facility] [facility] 11-07-2023 23:26-0500 Body temperature 98.1 [degF] LINAMEL ZENDEJAS Work Phone: [facility] 11-07-2023 23:26-0500 Diastolic blood pressure 56 mm[Hg] LINA RODOCOY Work Phone: [facility] 11-07-2023 23:26-0500 Heart rate 76 /min LINA RODOCOY Work Phone: [facility] 11-07-2023 23:26-0500 Respiratory rate 20 /min LINA RODOCOY Work Phone: [facility] 11-07-2023 23:26-0500 SaO2% (BldA) [Mass fraction] 90 % LINA RODOCOY Work Phone: [facility] 11-07-2023 23:26-0500 Systolic blood pressure 131 mm[Hg] LIAN RODOCOY Work Phone: [facility] 11-07-2023 21:57-0500 Body height 165.1 cm LINA RODOCOY Work Phone: [facility] 10-28-2023 13:55-0500 Body mass index (BMI) [Ratio] 28.4 kg/m2 LINA RODOCOY Work Phone: [facility] 10-28-2023 13:55-0500 Body weight 77.56 kg LINA RODOCOY Work Phone: [facility] 10-28-2023 13:55-0500 Diastolic blood pressure 65 mm[Hg] LINA RODOCOY Work Phone: [facility] 10-28-2023 13:55-0500 Heart rate 70 /min LINA RODOCOY Work Phone: [facility] 10-28-2023 13:55-0500 SaO2% (BldA) [Mass fraction] 96 % LINA RODOCOY Work Phone: [facility] 10-28-2023 13:55-0500 Systolic blood pressure 107 mm[Hg] LINA RODOCOY Work Phone: [facility] 10-17-2023 00:00-0500 Body height 166.37 cm Clement Velez [employer] 10-17-2023 00:00-0500 Body mass index (BMI) [Ratio] 27.2 kg/m2 Clement Repp [facility] 10-17-2023 00:00-0500 Body temperature 97.1 [degF] Clement Repp [facility] 10-17-2023 00:00-0500 Body weight 75.39 kg Clement Repp [facility] 10-17-2023 00:00-0500 Diastolic blood pressure 72 mm[Hg] Clement Repp [facility] 10-17-2023 00:00-0500 Heart rate 106 /min Clement Repp [facility] 10-17-2023 00:00-0500 SaO2% (BldA) [Mass fraction] 97 % Clement Repp [facility] 10-17-2023 00:00-0500 Systolic blood pressure 118 mm[Hg] Clement Repp [facility] 10-12-2023 11:56-0500 Body temperature 98.3 [degF] LINA RODOCOY Work Phone: [facility] 10-12-2023 11:56-0500 Diastolic blood pressure 44 mm[Hg] LINA RODOCOY Work Phone: [facility] 10-12-2023 11:56-0500 Heart rate 72 /min LINA RODOCOY Work Phone: [facility] 10-12-2023 11:56-0500 Respiratory rate 16 /min LINAMEL ZENDEJAS Work Phone: [facility] 10-12-2023 11:56-0500 SaO2% (BldA) [Mass fraction] 94 % LINAMEL MACHADOY Work Phone: [facility] 10-12-2023 11:56-0500 Systolic blood pressure 102 mm[Hg] [facility]AMEL [employer] Work Phone: [facility] 10-12-2023 06:38-0500 Inhaled oxygen flow rate 3 L/min LINAMEL MACHDAOY Work Phone: [facility] 10-12-2023 06:00-0500 Body mass index (BMI) [Ratio] 28.7 kg/m2 LINAMEL MACHADOY Work Phone: [facility] 10-12-2023 06:00-0500 Body weight 78.2 kg LINAMEL [employer] Work Phone: [facility] 10-11-2023 11:48-0500 Body height 165.1 cm LINAMEL MACHADOJobSync Work Phone: [facility] 10-09-2023 13:25-0500 Diastolic blood pressure 75 mm[Hg] [facility] 10-09-2023 13:25-0500 Heart rate 82 /min [facility] 10-09-2023 13:25-0500 Respiratory rate 16 /min [facility] 10-09-2023 13:25-0500 Systolic blood pressure 125 mm[Hg] [facility] 10-09-2023 06:23-0500 Body height 165.1 cm [facility] 10-09-2023 06:23-0500 Body mass index (BMI) [Ratio] 29.1 kg/m2 [facility] 10-09-2023 06:23-0500 Body temperature 97.7 [degF] [facility] 10-09-2023 06:23-0500 Body weight 79.4 kg [facility] 10-09-2023 06:23-0500 SaO2% (BldA) [Mass fraction] 96 % [facility] 08-26-2023 17:14-0500 Body temperature 102.4 [degF] [facility] [employer] Work Phone: [facility] 08-26-2023 17:14-0500 Body weight 77.11 kg [facility] [employer] Work Phone: [facility] 08-26-2023 17:14-0500 Diastolic blood pressure 72 mm[Hg] [facility] [employer] Work Phone: [facility] 08-26-2023 17:14-0500 Heart rate 96 /min [facility] [employer] Work Phone: [facility] 08-26-2023 17:14-0500 Respiratory rate 18 /min [facility] [employer] Work Phone: [facility] 08-26-2023 17:14-0500 SaO2% (BldA) [Mass fraction] 95 % [facility] [employer] Work Phone: [facility] 08-26-2023 17:14-0500 Systolic blood pressure 110 mm[Hg] [facility] [employer] Work Phone: [facility] 08-22-2023 00:00-0500 Body height 166.37 cm Linamel Butlermahsa [facility] 08-22-2023 00:00-0500 Body mass index (BMI) [Ratio] 28.9 kg/m2 Lina Butlermahsa [facility] 08-22-2023 00:00-0500 Body temperature 96.3 [degF] Lina Teresa [facility] 08-22-2023 00:00-0500 Body weight 79.92 kg Lina Zendejas [facility] 08-22-2023 00:00-0500 Diastolic blood pressure 66 mm[Hg] Lina Zendejas [facility] 08-22-2023 00:00-0500 Heart rate 66 /min Lina Zendejas [facility] 08-22-2023 00:00-0500 SaO2% (BldA) [Mass fraction] 98 % Lina Zendejas [facility] 08-22-2023 00:00-0500 Systolic blood pressure 118 mm[Hg] Lina Zendejas [facility] 06-13-2023 01:00-0400 Body height 166.37 cm Lina Zendejas [facility] 06-13-2023 01:00-0400 Body mass index (BMI) [Ratio] 28.3 kg/m2 Lina Zendejas [facility] 06-13-2023 01:00-0400 Body temperature 96.6 [degF] Lina Zendejas [facility] 06-13-2023 01:00-0400 Body weight 78.2 kg Lina Zendejas [facility] 06-13-2023 01:00-0400 Diastolic blood pressure 62 mm[Hg] Lina Zendejas [facility] 06-13-2023 01:00-0400 Heart rate 67 /min Lina Zendejas [facility] 06-13-2023 01:00-0400 SaO2% (BldA) [Mass fraction] 99 % Lina Zendejas [facility] 06-13-2023 01:00-0400 Systolic blood pressure 106 mm[Hg] Lina Zendejas [facility] 06-11-2023 11:59-0400 Diastolic Blood Pressure Non-Invasive [address] JAVIER CHEN MD [facility] [place] 06-11-2023 11:59-0400 Heart rate 67 /min DR JAVIER CHEN MD [facility] 06-11-2023 11:59-0400 Respiratory rate 16 /min DR JAVIER CHEN MD [facility] 06-11-2023 11:59-0400 Systolic Blood Pressure Non-Invasive [address] JAVIER CHEN MD [facility] 06-11-2023 11:32-0400 Diastolic Blood Pressure Non-Invasive [address] JAVIER CHEN MD [facility] 06-11-2023 11:32-0400 Heart rate 74 /min DR JAVIER CHEN MD [facility] 06-11-2023 11:32-0400 Respiratory rate 14 /min DR JAVIER CHEN MD [facility] 06-11-2023 11:32-0400 Systolic Blood Pressure Non-Invasive [address] JAVIER CHEN MD [facility] 06-11-2023 10:17-0400 Diastolic Blood Pressure Non-Invasive [address] JAVIER CHEN MD [facility] 06-11-2023 10:17-0400 Heart rate 81 /min DR JAVIER CHEN MD [facility] 06-11-2023 10:17-0400 Respiratory rate 14 /min DR JAVIER CHEN MD [facility] 06-11-2023 10:17-0400 Systolic Blood Pressure Non-Invasive [address] JAVIER CHEN MD [facility] 06-11-2023 10:12-0400 Body weight [address] JAVIER CHEN MD [facility] 06-11-2023 10:12-0400 Heart rate 127 /min DR JAVIER CHEN MD [facility] 06-07-2023 06:31-0400 Body height 165.1 cm HANK MCMULLEN MD [facility] 06-07-2023 06:31-0400 Body temperature 97.88 [degF] HANK MCMULLEN MD [facility] 06-07-2023 06:31-0400 Body weight 77.9 kg HANK MCMULLEN MD [facility] 06-07-2023 06:31-0400 Diastolic Blood Pressure Non-Invasive 61 1 HANK MCMULLEN MD [facility] 06-07-2023 06:31-0400 Heart rate 69 /min HANK MCMULLEN MD [facility] 06-07-2023 06:31-0400 Respiratory rate 18 /min HANK MCMULLEN MD [facility] 06-07-2023 06:31-0400 Systolic Blood Pressure Non-Invasive 106 1 HANK MCMULLEN MD [facility] 05-31-2023 22:09-0400 Diastolic Blood Pressure Non-Invasive 66 1 SHIRA JEAN MD [facility] 05-31-2023 22:09-0400 Heart rate 68 /min SHIRA JEAN MD [address] [place] [address] 05-31-2023 22:09-0400 Respiratory rate 18 /min SHIRA JEAN MD [facility] 05-31-2023 22:09-0400 Systolic Blood Pressure Non-Invasive 120 1 SHIRA JEAN MD [facility] 05-31-2023 19:02-0400 Body weight 77.3 kg SHIRA JEAN MD [facility] 05-31-2023 18:52-0400 Body temperature 97.52 [degF] SHIRA JEAN MD [facility] 05-31-2023 18:52-0400 Body weight 77.3 kg SHIRA JEAN MD [facility] 05-31-2023 18:52-0400 Diastolic Blood Pressure Non-Invasive 70 1 SHIRA JEAN MD [facility] 05-31-2023 18:52-0400 Heart rate 65 /min SHIRA JEAN MD [facility] 05-31-2023 18:52-0400 Respiratory rate 18 /min SHIRA JEAN MD [facility] 05-31-2023 18:52-0400 Systolic Blood Pressure Non-Invasive 121 1 SHIRA JEAN MD [facility] 05-06-2023 15:15-0400 Body temperature 97.7 [degF] NIRAV FORD MD [facility] 05-06-2023 15:15-0400 Diastolic Blood Pressure Non-Invasive 51 1 NIRAV FORD MD [facility] 05-06-2023 15:15-0400 Heart rate 64 /min NIRAV FORD MD [address] [place] [address] 05-06-2023 15:15-0400 Mean blood pressure 65 mm[Hg] NIRAV FORD MD [address] [place] [address] 05-06-2023 15:15-0400 Reason For Taking VItal Signs NIRAV FORD MD [address] [place] [address] 05-06-2023 15:15-0400 Respiratory rate 16 /min NIRAV FORD MD [address] 05-06-2023 15:15-0400 Systolic Blood Pressure Non-Invasive 101 1 NIRAV FORD MD [address] [place] [id number] 05-06-2023 12:15-0400 Heart rate 66 /min NIRAV FORD MD [address] 05-06-2023 11:35-0400 Body temperature 97.52 [degF] NIRAV FORD MD [address] 05-06-2023 11:35-0400 Diastolic Blood Pressure Non-Invasive 52 1 NIRAV FORD MD [address] [place] [id number] 05-06-2023 11:35-0400 Heart rate 60 /min NIRAV FORD MD [address] [place] [address] 05-06-2023 11:35-0400 Mean blood pressure 68 mm[Hg] NIRAV FORD MD [address] [place] [address] 05-06-2023 11:35-0400 Reason For Taking VItal Signs NIRAV FORD MD [address] [place] [address] 05-06-2023 11:35-0400 Respiratory rate 16 /min NIRAV FORD MD [facility] 05-06-2023 11:35-0400 Systolic Blood Pressure Non-Invasive 107 1 NIRAV FORD MD [facility] 05-06-2023 08:42-0400 Body temperature 97.88 [degF] NIRAV FORD MD [facility] 05-06-2023 08:42-0400 Diastolic Blood Pressure Non-Invasive 45 1 NIRAV FORD MD [facility] 05-06-2023 08:42-0400 Mean blood pressure 63 mm[Hg] NIRAV FORD MD [facility] 05-06-2023 08:42-0400 Reason For Taking VItal Signs NIRAV FORD MD [facility] 05-06-2023 08:42-0400 Respiratory rate 16 /min NIRAV FORD MD [facility] 05-06-2023 08:42-0400 Systolic Blood Pressure Non-Invasive 103 1 NIRAV FORD MD [address] [place] [address] 05-05-2023 08:54-0400 Body weight 79.6 kg NIRAV FORD MD [facility] 05-05-2023 00:32-0400 Heart rate 126 /min NIRAV FORD MD [facility] 05-04-2023 20:27-0400 Heart rate 120 /min NIRAV FORD MD [facility] 05-03-2023 14:31-0400 Body temperature 96.8 [degF] NIRAV FORD MD [facility] 05-03-2023 14:30-0400 Respiratory Rate - Anes 18 br/min NIRAV FORD MD [facility] 05-03-2023 14:25-0400 Respiratory Rate - Anes 12 br/min NIRAV FORD MD [facility] 05-03-2023 14:20-0400 Respiratory Rate - Anes 0 br/min NIRAV FORD MD [facility] 05-02-2023 19:55-0400 Blood Pressure Cuff Size NIRAV FORD MD [facility] 05-02-2023 19:55-0400 Blood Pressure Location NIRAV FORD MD [facility] 05-02-2023 19:55-0400 Blood Pressure Method NIRAV FORD MD [facility] 05-02-2023 15:55-0400 Blood Pressure Cuff Size NIRAV FORD MD [facility] 05-02-2023 15:55-0400 Blood Pressure Location NIRAV FORD MD [facility] 05-02-2023 15:55-0400 Blood Pressure Method NIRAV FORD MD [facility] 05-02-2023 11:17-0400 Blood Pressure Cuff Size NIRAV FORD MD [facility] 05-02-2023 11:17-0400 Blood Pressure Location NIRAV FORD MD [facility] 05-02-2023 11:17-0400 Blood Pressure Method NIRAV FORD MD [facility] 05-01-2023 18:48-0400 Heart rate 122 /min NIRAV FORD MD [facility] 05-01-2023 07:46-0400 Diastolic blood pressure 47 mm[Hg] NIRAV FORD MD [facility] 05-01-2023 07:46-0400 Mean blood pressure 64 mm[Hg] NIRAV FORD MD [facility] 05-01-2023 07:46-0400 Systolic blood pressure 94 mm[Hg] NIRAV FODR MD [address] [place] [address] 05-01-2023 07:35-0400 Diastolic blood pressure 44 mm[Hg] NIRAV FORD MD [address] 05-01-2023 07:35-0400 Mean blood pressure 58 mm[Hg] NIRAV FORD MD [address] 05-01-2023 07:35-0400 Systolic blood pressure 83 mm[Hg] NIRAV FORD MD [address] [place] [address] 05-01-2023 07:15-0400 Diastolic blood pressure 47 mm[Hg] NIRAV FORD MD [address] 05-01-2023 07:15-0400 Mean blood pressure 63 mm[Hg] NIRAV FORD MD [address] 05-01-2023 07:15-0400 Systolic blood pressure 90 mm[Hg] NIRAV FORD MD [address] [place] [address] 04-30-2023 09:50-0400 Body temperature 95.58 [degF] NIRAV FORD MD [address] 04-30-2023 09:45-0400 Body temperature 95.54 [degF] NIRAV FORD MD [address] [place] [address] 04-30-2023 09:40-0400 Body temperature 95.52 [degF] NIRAV FORD MD [address] [place] [address] 04-30-2023 05:47-0400 Body height 165 cm NIRAV FORD MD [address] [place] [address] 04-30-2023 05:47-0400 Body weight 78.9 kg NIRAV FORD MD [address] [place] [address] 04-30-2023 05:47-0400 Heart rate 91 /min NIRAV FORD MD [address] [place] [address] 03-14-2023 01:00-0400 Body height 166.37 cm Lina Zendejas [facility] 03-14-2023 01:00-0400 Body mass index (BMI) [Ratio] 28.7 kg/m2 Lina Zendejas [facility] 03-14-2023 01:00-0400 Body temperature 96.6 [degF] Lina Zendejas [facility] 03-14-2023 01:00-0400 Body weight 79.38 kg Lina Zendejas [facility] 03-14-2023 01:00-0400 Diastolic blood pressure 66 mm[Hg] Lina Zendejas [facility] 03-14-2023 01:00-0400 Heart rate 73 /min Lina Zendejas [facility] 03-14-2023 01:00-0400 SaO2% (BldA) [Mass fraction] 97 % Lina Zendejas [facility] 03-14-2023 01:00-0400 Systolic blood pressure 114 mm[Hg] Lina Zendejas [facility] 01-31-2023 10:14-0400 Diastolic Blood Pressure Non-Invasive 78 1 DENZEL MANE MD [facility] 01-31-2023 10:14-0400 Heart rate 98 /min DENZEL MANE MD [facility] 01-31-2023 10:14-0400 Respiratory rate 15 /min DENZEL MANE MD [facility] 01-31-2023 10:14-0400 Systolic Blood Pressure Non-Invasive 120 1 DENZEL MANE MD [facility] 01-31-2023 09:48-0400 Heart rate 104 /min DENZEL MANE MD [facility] 01-31-2023 09:44-0400 Diastolic Blood Pressure Non-Invasive 88 1 DENZEL MANE MD [facility] 01-31-2023 09:44-0400 Heart rate 95 /min DENZEL MANE MD [facility] 01-31-2023 09:44-0400 Respiratory rate 15 /min DENZEL MANE MD [facility] 01-31-2023 09:44-0400 Systolic Blood Pressure Non-Invasive 117 1 DENZEL MANE MD [facility] 01-31-2023 09:06-0400 Diastolic Blood Pressure Non-Invasive 74 1 DENZEL MANE MD [facility] 01-31-2023 09:06-0400 Respiratory rate 14 /min DENZEL MANE MD [facility] 01-31-2023 09:06-0400 Systolic Blood Pressure Non-Invasive 124 1 DENZEL MANE MD [facility] 01-31-2023 08:36-0400 Body height 167.6 cm DENZEL MANE MD [facility] 01-31-2023 08:36-0400 Body temperature 97.7 [degF] DENZEL MANE MD [facility] 01-31-2023 08:36-0400 Body weight 79.7 kg DENZEL AMNE MD [facility] 01-31-2023 08:36-0400 Heart rate 136 /min DENZEL MANE MD [facility] 01-29-2023 11:47-0400 Diastolic Blood Pressure Non-Invasive 73 1 IVONNE DUQUE MD [facility] 01-29-2023 11:47-0400 Heart rate 82 /min IVONNE DUQUE MD [facility] 01-29-2023 11:47-0400 Respiratory rate 12 /min IVONNE DUQUE MD [facility] 01-29-2023 11:47-0400 Systolic Blood Pressure Non-Invasive 116 1 IVONNE DUQUE MD [facility] 01-29-2023 09:27-0400 Blood Pressure Cuff Size IVONNE DUQUE MD [facility] 01-29-2023 09:27-0400 Blood Pressure Location IVONNE DUQUE MD [facility] 01-29-2023 09:27-0400 Blood Pressure Method IVONNE DUQUE MD [facility] 01-29-2023 09:27-0400 Body height 167.6 cm IVONNE DUQUE MD [facility] 01-29-2023 09:27-0400 Body temperature 97.52 [degF] IVONNE DUQUE MD [facility] 01-29-2023 09:27-0400 Body weight 79.1 kg IVONNE DUQUE MD [facility] 01-29-2023 09:27-0400 Diastolic Blood Pressure Non-Invasive 66 1 IVONNE DUQUE MD [facility] 01-29-2023 09:27-0400 Heart rate 100 /min IVONNE DUQUE MD [facility] 01-29-2023 09:27-0400 Respiratory rate 18 /min IVONNE DUQUE MD [facility] 01-29-2023 09:27-0400 Systolic Blood Pressure Non-Invasive 128 1 IVONNE DUQUE MD [facility] 10-13-2022 15:50-0500 Diastolic Blood Pressure Non-Invasive [address] DEANNE DUNCAN MD [facility] 10-13-2022 15:50-0500 Heart rate 91 /min DR DEANNE DUNCAN MD [facility] 10-13-2022 15:50-0500 Respiratory rate 18 /min DR DEANNE DUNCAN MD [facility] 10-13-2022 15:50-0500 Systolic Blood Pressure Non-Invasive [address] DEANNE DUNCAN MD [address] [place] [address] 10-13-2022 13:25-0500 Diastolic Blood Pressure Non-Invasive [address] DEANNE DUNCAN MD [facility] 10-13-2022 13:25-0500 Heart rate 91 /min DR DEANNE DUNCAN MD [facility] 10-13-2022 13:25-0500 Respiratory rate 18 /min DR DEANNE DUNCAN MD [facility] 10-13-2022 13:25-0500 Systolic Blood Pressure Non-Invasive [address] DEANNE DUNCAN MD [facility] 10-13-2022 12:15-0500 Diastolic Blood Pressure Non-Invasive [address] DEANNE DUNCAN MD [facility] 10-13-2022 12:15-0500 Heart rate 90 /min DR DEANNE DUNCAN MD [facility] 10-13-2022 12:15-0500 Respiratory rate 18 /min DR DEANNE DUNCAN MD [facility] 10-13-2022 12:15-0500 Systolic Blood Pressure Non-Invasive [address] DEANNE DUNCAN MD [facility] 10-13-2022 11:30-0500 Heart rate 115 /min DR DEANNE DUNCAN MD [facility] 10-13-2022 10:04-0500 Body temperature 97.52 [degF] DR DEANNE DUNCAN MD [facility] 10-13-2022 10:04-0500 Body weight 79.[address] DEANNE DUNCAN MD [facility] 10-13-2022 10:04-0500 Heart rate 133 /min DR DEANNE DUNCAN MD [facility] 10-11-2022 11:54-0500 Heart rate 72 /min MACI HARDY MD [facility] 10-11-2022 11:35-0500 Blood Pressure Cuff Size MACI HARDY MD [facility] 10-11-2022 11:35-0500 Blood Pressure Location MACI HARDY MD [address] [place] [address] 10-11-2022 11:35-0500 Blood Pressure Method MACI HARDY MD [address] [place] [address] 10-11-2022 11:35-0500 Body temperature 98.06 [degF] MACI HARDY MD [address] [place] [address] 10-11-2022 11:35-0500 Diastolic Blood Pressure Non-Invasive 53 1 MACI HARDY MD [address] [place] [address] 10-11-2022 11:35-0500 Heart rate 65 /min MACI HARDY MD [address] [place] [address] 10-11-2022 11:35-0500 Reason For Taking VItal Signs MACI HARDY MD [address] [place] [address] 10-11-2022 11:35-0500 Respiratory rate 16 /min MACI HARDY MD [address] [place] [address] 10-11-2022 11:35-0500 Systolic Blood Pressure Non-Invasive 104 1 MACI HARDY MD [address] [place] [address] 10-11-2022 10:15-0500 Body temperature 98.06 [degF] MACI HARDY MD [address] [place] [address] 10-11-2022 10:15-0500 Diastolic Blood Pressure Non-Invasive 66 1 MACI HARDY MD [address] [place] [address] 10-11-2022 10:15-0500 Heart rate 81 /min MACI HARDY MD [address] [place] [address] 10-11-2022 10:15-0500 Reason For Taking VItal Signs MACI HARDY MD [address] [place] [address] 10-11-2022 10:15-0500 Respiratory rate 15 /min MACI HARDY MD [address] [place] [address] 10-11-2022 10:15-0500 Systolic Blood Pressure Non-Invasive 102 1 MACI HARDY MD [address] [place] [address] 10-11-2022 08:36-0500 Heart rate 79 /min MACI HARDY MD [address] [place] [address] 10-11-2022 08:31-0500 Diastolic Blood Pressure Non-Invasive 64 1 MACI HARDY MD [address] [place] [address] 10-11-2022 08:31-0500 Heart rate 79 /min MACI HARDY MD [address] [place] [address] 10-11-2022 08:31-0500 Systolic Blood Pressure Non-Invasive 110 1 MACI HARDY MD [address] [place] [address] 10-11-2022 07:19-0500 Body temperature 98.24 [degF] MACI HARDY MD [address] [place] [address] 10-11-2022 07:19-0500 Reason For Taking VItal Signs MACI HARDY MD [address] [place] [address] 10-11-2022 07:19-0500 Respiratory rate 16 /min MACI HARDY MD [address] [place] [address] 10-10-2022 19:51-0500 Blood Pressure Cuff Size MACI HARDY MD [address] [place] [address] 10-10-2022 19:51-0500 Blood Pressure Location MACI HARDY MD [address] [place] [address] 10-10-2022 19:51-0500 Blood Pressure Method MACI HARDY MD [address] [place] [address] 10-10-2022 16:20-0500 Blood Pressure Cuff Size MACI HARDY MD [address] [place] [address] 10-10-2022 16:20-0500 Blood Pressure Location MACI HARDY MD [address] [place] [address] 10-10-2022 16:20-0500 Blood Pressure Method MACI HARDY MD [address] [place] [address] 10-10-2022 09:46-0500 Heart rate 86 /min MACI HARDY MD [address] [place] [address] 10-10-2022 08:19-0500 Mean blood pressure 72 mm[Hg] MACI HARDY MD [address] [place] [address] 10-10-2022 04:10-0500 Mean blood pressure 68 mm[Hg] MACI HARDY MD [address] [place] [address] 10-09-2022 23:37-0500 Mean blood pressure 70 mm[Hg] MACI HARDY MD [address] [place] [address] 10-09-2022 09:44-0500 Body temperature 97.16 [degF] MACI HARDY MD [address] [place] [address] 10-08-2022 08:33-0500 Body height 167.6 cm MACI HARDY MD [address] [place] [address] 10-08-2022 08:33-0500 Body weight 80.8 kg MACI HARDY MD [address] [place] [address] 10-08-2022 08:33-0500 Body weight 28.76 kg/m2 MACI HARDY MD [address] [place] [address] 09-14-2022 14:08-0500 Diastolic Blood Pressure Non-Invasive 60 1 JOSE FELICIANO MD [address] [place] [address] 09-14-2022 14:08-0500 Heart rate 80 /min JSOE FELICIANO MD [address] [place] [address] 09-14-2022 14:08-0500 Respiratory rate 14 /min JOSE FELICIANO MD [address] [place] [address] 09-14-2022 14:08-0500 Systolic Blood Pressure Non-Invasive 114 1 JOSE FELICIANO MD [address] [place] [address] 09-14-2022 13:59-0500 Diastolic Blood Pressure Non-Invasive 63 1 JOSE FELICIANO MD [address] [place] [address] 09-14-2022 13:59-0500 Heart rate 93 /min JOSE FELICIANO MD [address] [place] [address] 09-14-2022 13:59-0500 Respiratory rate 18 /min JOSE FELICIANO MD [address] [place] [address] 09-14-2022 13:59-0500 Systolic Blood Pressure Non-Invasive 117 1 JOSE FELICIANO MD [address] [place] [address] 09-14-2022 13:55-0500 Body temperature 96.62 [degF] JOSE FELICIANO MD [address] [place] [address] 09-14-2022 13:55-0500 Diastolic Blood Pressure Non-Invasive 59 1 JOSE FELICIANO MD [address] [place] [address] 09-14-2022 13:55-0500 Heart rate 86 /min JOSE FELICIANO MD [address] [place] [address] 09-14-2022 13:55-0500 Respiratory rate 18 /min JOSE FELICIANO MD [address] [place] [address] 09-14-2022 13:55-0500 Systolic Blood Pressure Non-Invasive 112 1 JOSE FELICIANO MD [address] [place] [address] 09-14-2022 13:50-0500 Heart rate 93 /min JOSE FELICIANO MD [address] [place] [address] 09-14-2022 11:57-0500 Blood Pressure Cuff Size JOSE FELICIANO MD [address] [place] [address] 09-14-2022 11:57-0500 Blood Pressure Location JOSE FELICIANO MD [address] [place] [address] 09-14-2022 11:57-0500 Blood Pressure Method JOSE FELICIANO MD [address] [place] [address] 09-14-2022 11:57-0500 Body height 167 cm JOSE FELICIANO MD [address] [place] [address] 09-14-2022 11:57-0500 Body temperature 97.88 [degF] JOSE FELICIANO MD [address] [place] [address] 09-14-2022 11:57-0500 Body weight 79.7 kg JOSE FELICIANO MD [address] [place] [address] 08-29-2022 13:35-0500 Blood Pressure Location HANK MCMULLEN MD [address] [place] [address] 08-29-2022 13:35-0500 Blood Pressure Method HANK MCMULLEN MD [address] [place] [address] 08-29-2022 13:35-0500 Diastolic Blood Pressure Non-Invasive 78 1 HANK MCMULLEN MD [address] [place] [address] 08-29-2022 13:35-0500 Heart rate 100 /min HANK MCMULLEN MD [address] [place] [address] 08-29-2022 13:35-0500 Respiratory rate 16 /min HANK MCMULLEN MD [address] [place] [address] 08-29-2022 13:35-0500 Systolic Blood Pressure Non-Invasive 106 1 HANK MCMULLEN MD [address] [place] [address] 08-29-2022 12:30-0500 Respiratory rate 16 /min HANK MCMULLEN MD [address] [place] [address] 08-29-2022 11:51-0500 Respiratory rate 16 /min HANK MCMULLEN MD [address] [place] [address] 08-29-2022 10:35-0500 Blood Pressure Location HANK MCMULLEN MD [address] [place] [address] 08-29-2022 10:35-0500 Blood Pressure Method HANK MCMULLEN MD [address] [place] [address] 08-29-2022 10:35-0500 Diastolic Blood Pressure Non-Invasive 64 1 HANK MCMULLEN MD [address] [place] [address] 08-29-2022 10:35-0500 Heart rate 98 /min HANK MCMULLEN MD [address] [place] [address] 08-29-2022 10:35-0500 Systolic Blood Pressure Non-Invasive 117 1 HANK MCMULLEN MD [address] [place] [address] 08-29-2022 10:05-0500 Blood Pressure Location HANK MCMULLEN MD [address] [place] [address] 08-29-2022 10:05-0500 Blood Pressure Method HANK MCMULLEN MD [address] [place] [address] 08-29-2022 10:05-0500 Diastolic Blood Pressure Non-Invasive 58 1 HANK MCMULLEN MD [address] [place] [address] 08-29-2022 10:05-0500 Heart rate 88 /min HANK MCMULLEN MD [address] [place] [address] 08-29-2022 10:05-0500 Systolic Blood Pressure Non-Invasive 112 1 HANK MCMULLEN MD [address] [place] [address] 08-29-2022 07:20-0500 Body height 167.6 cm HANK MCMULLEN MD [address] [place] [address] 08-29-2022 07:20-0500 Body temperature 98.24 [degF] HANK MCMULLEN MD [address] [place] [address] 08-29-2022 07:20-0500 Body weight 79.3 kg HANK MCMULLEN MD [address] [place] [address] 08-29-2022 07:20-0500 Body weight 28.23 kg/m2 HANK MCMULLEN MD [address] [place] [address] 08-23-2022 00:00-0500 Body height 166.37 cm Lina Zendejas [facility] 08-23-2022 00:00-0500 Body mass index (BMI) [Ratio] 29 kg/m2 Lina Zendejas [facility] 08-23-2022 00:00-0500 Body temperature 96.3 [degF] Lina Zendejas [facility] 08-23-2022 00:00-0500 Body weight 80.15 kg Lina Zendejas [facility] 08-23-2022 00:00-0500 Diastolic blood pressure 62 mm[Hg] Lina Zendejas [facility] 08-23-2022 00:00-0500 Heart rate 105 /min Lina Zendejas [facility] 08-23-2022 00:00-0500 SaO2% (BldA) [Mass fraction] 97 % Lina Zendejas [facility] 08-23-2022 00:00-0500 Systolic blood pressure 100 mm[Hg] Lina Zendejas [facility] 07-31-2022 09:04-0500 Body height 167.6 cm HANK MCMULLEN MD [facility] 07-31-2022 09:04-0500 Body temperature 97.52 [degF] HANK MCMULLEN MD [facility] 07-31-2022 09:04-0500 Body weight 79.3 kg HANK MCMULLEN MD [facility] 07-31-2022 09:04-0500 Body weight 28.23 kg/m2 HANK MCMULLEN MD [facility] 07-31-2022 09:04-0500 diastolic 80 mm[Hg] HANK MCMULLEN MD [address] [place] [address] 07-31-2022 09:04-0500 Heart rate 92 /min HANK MCMULLEN MD [address] [place] [address] 07-31-2022 09:04-0500 systolic 117 mm[Hg] HANK MCMULLEN MD [address] [place] [address] 04-12-2022 12:30-0400 Heart rate 72 /min JOSE FELICIANO MD [address] [place] [address] 04-12-2022 11:20-0400 Heart rate 76 /min JOSE FELICIANO MD [address] [place] [address] 04-12-2022 11:20-0400 Respiratory rate 16 /min JOSE FELICIANO MD [address] [place] [address] 04-12-2022 08:42-0400 diastolic 86 mm[Hg] JSOE FELICIANO MD [address] [place] [address] 04-12-2022 08:42-0400 Heart rate 82 /min JOSE FELICIANO MD [address] [place] [address] 04-12-2022 08:42-0400 Respiratory rate 18 /min JOSE FELICIANO MD [address] [place] [address] 04-12-2022 08:42-0400 systolic 124 mm[Hg] JOSE FELICIANO MD [address] [place] [address] 04-12-2022 06:12-0400 Body height 168 cm JOSE FELICIANO MD [address] [place] [address] 04-12-2022 06:12-0400 Body temperature 97.16 [degF] JOSE FELICIANO MD [address] [place] [address] 04-12-2022 06:12-0400 Body weight 78.6 kg JOSE FELICIANO MD [address] [place] [address] 04-12-2022 06:12-0400 Body weight 27.85 kg/m2 JOSE FELICIANO MD [facility] 04-12-2022 06:12-0400 diastolic 85 mm[Hg] JOSE FELICIANO MD [facility] 04-12-2022 06:12-0400 Respiratory rate 18 /min JOSE FELICIANO MD [facility] 04-12-2022 06:12-0400 systolic 120 mm[Hg] JOSE FELICIANO MD [facility] 03-14-2022 13:55-0400 Diastolic blood pressure 69 mm[Hg] [facility] Work Phone: 03-14-2022 13:55-0400 Heart rate 86 /min [facility] Work Phone: 03-14-2022 13:55-0400 Respiratory rate 20 /min [facility] Work Phone: 03-14-2022 13:55-0400 SaO2% (BldA) [Mass fraction] 94 % [facility] Work Phone: 03-14-2022 13:55-0400 Systolic blood pressure 113 mm[Hg] [facility] Work Phone: 03-14-2022 09:58-0400 Body height 167.64 cm [facility] Work Phone: 03-14-2022 09:58-0400 Body mass index (BMI) [Ratio] 30.9 kg/m2 [facility] Work Phone: 03-14-2022 09:58-0400 Body temperature 97.7 [degF] [facility] Work Phone: 03-14-2022 09:58-0400 Body weight 87.1 kg [facility] Work Phone: 03-09-2022 01:00-0400 Body height 166.37 cm Taylor Kaplan [facility] 03-09-2022 01:00-0400 Body mass index (BMI) [Ratio] 28.8 kg/m2 Taylor Kaplan [facility] 03-09-2022 01:00-0400 Body temperature 97.3 [degF] Taylor Kaplan [facility] 03-09-2022 01:00-0400 Body weight 79.83 kg Taylor Kaplan [facility] 03-09-2022 01:00-0400 Diastolic blood pressure 73 mm[Hg] Taylor Kaplan [facility] 03-09-2022 01:00-0400 Heart rate 95 /min Taylor Kaplan [facility] 03-09-2022 01:00-0400 SaO2% (BldA) [Mass fraction] 98 % Taylor Kaplan [facility] 03-09-2022 01:00-0400 Systolic blood pressure 120 mm[Hg] Taylor Kaplan [facility] 02-15-2022 01:00-0400 Body height 166.37 cm Lina Zendejas [facility] 02-15-2022 01:00-0400 Body mass index (BMI) [Ratio] 28.4 kg/m2 Lina Zendejas [facility] 02-15-2022 01:00-0400 Body temperature 96.6 [degF] Lina Zendejas [facility] 02-15-2022 01:00-0400 Body weight 78.7 kg Lina Zendejas [facility] 02-15-2022 01:00-0400 Diastolic blood pressure 60 mm[Hg] Lina Zendejas [facility] 02-15-2022 01:00-0400 Heart rate 94 /min Lina Zendejas [facility] 02-15-2022 01:00-0400 SaO2% (BldA) [Mass fraction] 99 % Lina Zendejas [facility] 02-15-2022 01:00-0400 Systolic blood pressure 102 mm[Hg] Lina Zendejas [facility] 11-13-2021 00:00-0500 Body height 166.37 cm Clement Velez [facility] 11-13-2021 00:00-0500 Body mass index (BMI) [Ratio] 26.8 kg/m2 Clement Velez [facility] 11-13-2021 00:00-0500 Body temperature 97.3 [degF] Clement Velez [employer] 11-13-2021 00:00-0500 Body weight 74.12 kg Clement Repp [employer] 11-13-2021 00:00-0500 Diastolic blood pressure 70 mm[Hg] Clement Repp [employer] 11-13-2021 00:00-0500 Heart rate 60 /min Clement Repp [employer] 11-13-2021 00:00-0500 SaO2% (BldA) [Mass fraction] 97 % Clement Repp [employer] 11-13-2021 00:00-0500 Systolic blood pressure 118 mm[Hg] Clement Repp [employer] 02-16-2021 01:00-0400 Body height 166.37 cm Lina Zendejas [employer], [facility] 02-16-2021 01:00-0400 Body mass index (BMI) [Ratio] 26.6 kg/m2 Lina Zendejas [employer] [facility] 02-16-2021 01:00-0400 Body temperature 97.5 [degF] Lina Zendejas [employer], [facility] 02-16-2021 01:00-0400 Body weight 73.57 kg Lina Zendejas [employer], [facility] 02-16-2021 01:00-0400 Diastolic blood pressure 66 mm[Hg] Lina Zendejas [employer], [facility] 02-16-2021 01:00-0400 Heart rate 66 /min Lina Machadoy [employer], [facility] 02-16-2021 01:00-0400 SaO2% (BldA) [Mass fraction] 98 % Lina Machadoy [employer], [facility] 02-16-2021 01:00-0400 Systolic blood pressure 128 mm[Hg] Lina Zendejas [employer], [facility] Encounters Encounter Date Encounter Type Care Provider Facility Start: 05-20-2025 Lina Zendejas [employer] [facility] Start: 01-13-2025 End: 01-13-[address] LYN HA MD Facility:A Start: 01-13-2025 End: 01-13-2025 SAME DAY STAY HANK MCMULLEN MD [facility] Start: 01-11-2025 End: 01-11-2025 ambulatory JACY ZAVALETA Facility:[facility] Start: 12-23-2024 End: 12-23-[address] LYN HA MD Facility:[facility] Start: 12-10-2024 Lina Butlermahsa [employer] - [facility] Start: 12-09-2024 End: 12-09-2024 [facility] Start: 08-06-2024 Lina Zendejas [employer] [facility] Start: 07-28-2024 End: 07-29-2024 Emergency department patient visit Lina Zendejas Facility:[facility] Start: 07-21-2024 Office outpatient vi sit 25 minutes Clement Repp [employer] - [facility] Start: 07-21-2024 Clement Repp [employer] - [facility] Start: 07-16-2024 End: 07-16-2024 Emergency department [facility] Start: 06-04-2024 [facility] Start: 05-23-2024 End: 05-26-2024 Evaluation and management of inpatient DR NAKUL SIERRA MD [facility] Start: 05-23-2024 End: 05-23-2024 Emergency department patient visit Bhargav Galvan Facility:[facility] Start: 04-23-2024 End: 04-23-2024 ambulatory Jamar Ventura Facility:[facility] Start: 04-09-2024 Lina Zendejas [employer] - [facility] Start: 04-04-2024 End: 04-04-2024 ambulatory JACY BAUMAN APRN-CASER Facility:[facility] Start: 04-04-2024 End: 04-04-2024 Patient encounter procedure JACY BAUMAN [employer]-CASER [facility] Start: 03-20-2024 Office outpatient vi sit 15 minutes Clement Repp [employer] - [facility] Start: 03-20-2024 Clement Repp [employer] - [facility] Start: 03-09-2024 End: 03-09-2024 Emergency department patient visit DONNA GUTIERRES Facility:[facility] Start: 03-05-2024 Office outpatient vi sit 15 minutes Taylor Kaplan [employer] - [facility] Start: 03-05-2024 Taylor cagle [employer] - [facility] Start: 03-02-2024 End: 03-02-2024 Emergency department patient visit Caseyisabel Bryson Facility:[facility] Start: 12-30-2023 ambulatory Roberto Carlosjohn Waite Facility :[facility] Start: 12-30-2023 Non-patient / Non-visit LINA TERESA Work Phone: [facility] Start: 12-30-2023 End: 12-30-2023 Admission to same day surgery center LINA TERESA Work Phone: [facility] Work Phone: Start: 12-30-2023 End: 12-30-2023 ambulatory LINAMEL BUTLERMARGARETHJyoti Work Phone: [facility] Work Phone: Start: 12-05-2023 Lina Zendejas [employer] - [facility] Start: 11-14-2023 Office outpatient vi sit 15 minutes Clement Repp [employer] - [facility] Start: 11-14-2023 Clement Repp [employer] - [facility] Start: 11-07-2023 End: 11-07-2023 Emergency department patient visit LINA MACHADOY Work Phone: [facility]Emergency [facility] Work Phone: Start: 10-28-2023 End: 10-28-2023 Patient encounter procedure LINAMEL BUTLEROCOY Work Phone: [facility] Work Phone: Start: 10-25-2023 End: 10-25-2023 Patient encounter procedure LINA MACHADOY Work Phone: [facility] Work Phone: Start: 10-17-2023 Clement Repp [employer] - [facility] Start: 10-12-2023 Non-patient / Non-visit LINAMEL BUTLEROCOY Work Phone: [facility] Start: 10-12-2023 Non-patient / Non-visit LINAMEL BUTLEROCOY Work Phone: [facility] Work Phone: Start: 10-11-2023 Non-patient / Non-visit LINA RODOCOY Work Phone: [facility] Start: 10-11-2023 Non-patient / Non-visit LINA RODOCOY Work Phone: [facility] Work Phone: Start: 10-10-2023 Non-patient / Non-visit LINA RODOCOY Work Phone: [facility] Start: 10-10-2023 Non-patient / Non-visit LINA ZENDEJAS Work Phone: [facility] Work Phone: Start: 10-10-2023 Non-patient / Non-visit LINA ZENDEJAS Work Phone: [facility] Start: 10-10-2023 Non-patient / Non-visit LINA ZENDEJAS Work Phone: [facility] Start: 10-09-2023 Non-patient / Non-visit LINA ZENDEJAS Work Phone: [facility] Start: 10-09-2023 Non-patient / Non-visit LINA ZENDEJAS Work Phone: [facility] Work Phone: Start: 10-09-2023 End: 10-12-2023 [facility] Work Phone: Start: 10-09-2023 Non-patient / Non-visit LINA ZENDEJAS Work Phone: [facility] Start: 08-27-2023 Telephone encounter Deisy montes PA-C Work Phone: [facility] Comment on above: Results Start: 08-26-2023 End: 08-26-2023 ambulatory LINA ZENDEJAS Facility:[facility] Start: 08-26-2023 End: 08-26-2023 Office outpatient visit 15 minutes Phil Márquez APRN.CNP Work Phone: [facility] Comment on above: Fever, unspecified f ever cause (Primary Dx); Suspected COVID-19 virus infection Start: 08-22-2023 Lina Zendejas [employer] - [facility] Start: 06-13-2023 Lina Zendejas [employer] - [facility] Start: 06-11-2023 End: 06-11-2023 Emergency department patient visit DR JAVIER CHEN MD [facility] Start: 06-07-2023 End: 06-07-2023 ambulatory LINA ZENDEJAS MD Facility:A Start: 06-07-2023 End: 06-07-2023 SAME DAY STAY HANK MCMULLEN MD [facility] Start: 05-31-2023 End: 05-31-2023 Emergency department patient visit SHIRA JEAN MD [facility] Start: 04-30-2023 End: 05-06-2023 Evaluation and management of inpatient NIRAV FORD MD [facility] Start: 03-14-2023 Lina Zendejas [employer] [facility] Start: 02-22-2023 Telephone encounter Erika Elizalde APRN.RENEE Work Phone: [facility] Comment on above: copy of xray report fax to FRANCESCO Dumont Start: 02-19-2023 End: 02-19-2023 ambulatory LINA ZENDEJAS Facility:[facility] Start: 02-19-2023 End: 02-19-2023 Subsequent hospital visit by physician [facility] Work Phone: Radiology Comment on above: Pain of toe of left foot [M79.675] Start: 02-14-2023 Lina Zendejas [employer] - [facility] Start: 01-31-2023 End: 01-31-2023 Emergency department patient visit DENZEL MANE MD [facility] Start: 01-29-2023 End: 01-29-2023 Emergency department patient visit IVONNE DUQUE MD [facility] Start: 01-17-2023 End: 01-17-2023 Patient encounter procedure JOSE FELICIANO MD [facility] Start: 12-25-2022 End: 12-25-2022 Patient encounter procedure JOSE FELICIANO MD [facility] Start: 11-16-2022 End: 11-16-2022 ambulatory [facility] Work Phone: Start: 11-16-2022 End: 11-16-2022 Patient encounter procedure [facility] Start: 10-13-2022 End: 10-13-2022 Emergency department patient visit DR DEANNE DUNCAN MD [facility] Start: 10-08-2022 End: 10-11-2022 Evaluation and management of inpatient MACI HARDY MD [facility] Start: 09-14-2022 End: 09-14-2022 SAME DAY STAY JOSE FELICIANO MD [facility] Start: 08-29-2022 End: 08-29-2022 SAME DAY STAY HANK MCMULLEN MD [facility] Start: 08-24-2022 End: 08-24-2022 Patient encounter procedure LINA ZENDEJAS MD [facility] Start: 08-23-2022 [facility] Start: 08-15-2022 ambulatory Hank Mcmullen Facility :[facility] Start: 08-14-2022 End: 08-14-2022 Patient encounter procedure HANK MCMULLEN MD [facility] Start: 07-31-2022 End: 07-31-2022 Admission to [facility] HANK MCMULLEN MD [facility] Start: 06-15-2022 End: 06-15-2022 Patient encounter procedure JOSE FELICIANO MD [facility] Start: 04-24-2022 ambulatory Jose Feliciano Facility: [facility] Start: 04-24-2022 ambulatory Carley Cary Facilit y:[facility] Start: 04-12-2022 End: 04-12-2022 SAME DAY STAY JOSE FELICIANO MD [facility] Start: 04-10-2022 End: 04-10-2022 Patient encounter procedure JOSE FEILCIANO MD [facility] Start: 03-14-2022 End: 03-14-2022 Emergency department patient visit [facility] Start: 03-09-2022 Opscpy extnd rta drawing & scl deprsn i&r uni/bi Taylor Kaplan [employer]. [facility] Start: 03-02-2022 ambulatory Lina Lewisi ty:[facility] Start: 03-02-2022 Opscpy extnd rta drawing & scl deprsn i&r uni/bi Lina Zendejas [employer] - [facility] [employer] Start: 02-26-2022 End: 02-26-2022 Subsequent hospital visit by physician Mariela Mayberry MD Work Phone: [facility] Comment on above: I48.91,R06.09 Start: 02-15-2022 Opscpy extnd rta drawing & scl deprsn i&r uni/bi Lina Zendejas [employer] - [facility] [employer] Start: 02-10-2022 ambulatory Lina Chivo Zendejas Facili ty:[facility] Start: 02-03-2022 ambulatory Clement M Repp Facility:[facility] Start: 11-13-2021 ambulatory Clement M Repp Facility:[facility] Start: 11-13-2021 Opscpy extnd rta drawing & scl deprsn i&r uni/bi Clement Repp [employer] - [facility] [employer] Start: 11-03-2021 End: 11-03-2021 Subsequent hospital visit by physician Greg [facility] Work Phone: Radiology Comment on above: Cough [R05.9] Start: 02-16-2021 Opscpy extnd rta drawing & scl deprsn i&r uni/bi Lina Zendejas [employer] - [facility] [employer] Procedures Date Procedure Procedure Detail Performing Clinician Start: 12-09-2024 X-ray of chest, PA and lateral views Dr. Lina Zendejas MD Work Phone: Start: 10-08-2024 Colonoscopy Lina Zendejas Start: 05-25-[address] NAKUL SIERRA MD Start: 12-30-2023 End: 12-30-2023 Endoscopic retrograde cholangiopancreatography LINAMEL BUTLEROCOY Work Phone: Start: 12-30-2023 Fluoroscopic guidance LINAMEL BUTLEROCOY Work Phone: Start: 11-22-[address] NAKUL SIERRA MD Start: 10-17-2023 End: 10-17-2023 History of cholecystectomy Clement Repp Start: 10-16-2023 History of cholecystectomy Clement Repp Start: 10-12-2023 Plain chest X-ray LINAMEL BUTLEROCOY Work Phone: Start: 10-11-2023 Cholangiogram LINAMEL BTULEROCOY Work Phone: Start: 10-11-2023 Fluoroscopic guidance LINA RODOCOY Work Phone: Start: 10-11-2023 Total cholecystectomy and exploration of common bile duct LINAMEL BUTLEROCOY Work Phone: Start: 10-11-2023 Cholecystectomy Clement Repp Start: 10-11-2023 ERCP DUCT STENT PLACEMENT Clement Repp Start: 10-10-2023 Endoscopic retrograde cholangiopancreatography LINAMEL BUTLEROCOY Work Phone: Start: 10-10-2023 Fluoroscopic guidance LINAMEL BUTLEROCOY Work Phone: Start: 10-09-2023 US scan of gallbladder Start: 10-09-2023 Computed tomography of abdomen and pelvis with intravenous contrast Start: 08-26-2023 INFLUENZA A&B MOLECULAR (POC) Phil Márquez APRN.CASER Work Phone: Start: 05-03-2023 Cardioversion JACY BAUMAN APRN-CASER Comment on above: Unfortunately, the patient continued to have early return of atrial fibrillation She will break into normal sinus rhythm lasting approximately 10 to 15 seconds before converting back to A-fib RVR Start: 05-03-2023 Transesophageal echocardiography YOSSI BAUMAN APRNWebCurfewCASER Comment on above: 1. Left atrium: There [...] pressure induced by provocative maneuvers, shows no [id number] atrial level shunt. There is no evidence [...] or appendage. Start: 05-02-2023 Echocardiography JACY [facility]UMAN [facility] Comment on above: 1. Left ventricle: Wall [...] Radex toe minimum 2 views Erika espinoza APRN.CNP Work Phone: Start: 02-06-2023 Echocardiography NIRAV FORD MD Comment on above: 1. 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 Rare isolated premature atrial and ventricular beats were noted in singles as well. No atrial ventricular pauses observed. Start: 11-16-2022 Pelvis X-ray Start: 10-09-2022 Cardioversion MACI HARDY MD Start: 09-14-2022 Cardioversion NIRAV FORD MD Start: 09-14-2022 Transesophageal echocardiography MACI [...] obstructive CAD. Normal LVEDP. Start: 08-29-2022 Lina Teresa Start: 08-15-2022 Echocardiography MACI HARDY MD Comment on above: 1. Limited ECHO for assessment of perica rdial effusion. 2. Left ventricle: Systolic function is normal. 3. Pericardium, extracardiac: A [id number], free-flowing pericardial effusion is identified posterior to [...] Start: 08-07-2022 Closure of patent foramen ovale NIRAV LEUNG MD Start: 08-07-2022 Echocardiography MACI HARDY MD Comment on above: 1. Pericardium, extracardiac: [...] with prosthesis by closed heart technique Lina Butlermahsa Start: 08-07-2022 Transesophageal echocardiography MACI SHIN MD [...] 0.5 cm area noted with a predominant sgof-ic-[id number] shunt on color Doppler as well as [...] of diffusion defect. Start: 04-13-2022 Cardiac catheterization JOSE FELICIANO MD Start: 04-12-2022 Lina Laurimahsa Start: 03-14-2022 Plain chest X-ray Start: 11-03-2021 Radiologic exam chest 2 views Valarie dawson REGIONAL CONTROLLER.CASER Work Phone: Start: 09-23-2021 Esophagogastroduodenoscopy NIRAV FORD MD Start: 02-16-2021 End: 02-16-2021 Adult health examination Lina Machadojyoti Start: 02-16-2021 End: 02-16-2021 Screening mammography Lina Zendejas Start: 02-10-2016 Lipid 1996 panel - Serum or Plasma Phil Márquez REGIONAL CONTROLLER.CASER Work Phone: Start: 12-06-2015 Colonoscopy Lina Zendejas Start: 09-23-2015 Dilation and curettage NIRAV FORD MD Start: 09-23-2015 Hysteroscopy NIRAV FORD MD Start: 09-23-2011 Colonoscopy NIRAV FORD MD Start: 09-23-2007 Excision of bunion NIRAV FORD MD Start: 09-23-1992 Ligation of fallopian tube NIRAV FORD MD Start: 09-23-1991 Cystopexy NIRAV FORD MD Start: 09-23-1963 Tonsillectomy NIRAV FORD MD Closure of patent foramen ovale HANK MCMULLEN MD Colonoscopy HANK MCMULLEN MD Cystopexy JOSE Soto Dilation and curettage JOSE FELICIANO MD Esophagogastroduodenoscopy Migel MCMULLEN MD Excision of bunion JOSE STYLES MD History of cholecystectomy S/P l aparoscopic cholecystectomy LINA ZENDEJAS Work Phone: Comment on above: w liver bxPatient is recovering very wel l following surgery. She is feeling well and is well-healing on exam. I reviewed with her the results of her pathology which demonstrated evidence of chronic cholecystitis and only minimal inflammation with her liver biopsy. I deferred further interpretation of this microscopy to gastroenterology, but submitted that this did not seem consistent with a diagnosis of liver cirrhosis. Given the finding of steatosis I have encouraged her to assume a lower fat diet. Lastly I also showed her the results of her intraoperative cholangiography and reminded her that she will require a follow-up visit with gastroenterology for removal of her temporary common bile duct stent. Hysteroscopy JOSE Soto Ligation of fallopian tube A CHRISTINE FELICIANO MD Tonsillectomy JOSE FELICIANO MD Plan of Treatment Date Care Activity Detail Author Start: 2036 RSV Vaccine (1 - 1-dose 75+ series) RSV Vaccine (1 - 1-dose 75+ series) [facility] Start: 06-25-2031 Urine microalbumin profile DTaP,Tdap,Td Vaccine (2 - Td or Tdap) [facility] Start: 11-18-2025 30 MIN VISIT 30 MIN VISIT [facility] [employer] Start: 05-20-2025 30 MIN VISIT 30 MIN VISIT [employer] Start: 12-10-2024 30 MIN VISIT 30 MIN VISIT [employer] Start: 12-10-2024 Medrol (Ednzel) 4 mg tablets in a dose pack [employer] Start: 12-09-2024 [facility] Start: 12-09-2024 Electrocardiographic procedure [facility] Start: 12-09-2024 [facility] Start: 08-06-2024 30 MIN VISIT 30 MIN VISIT [employer] Start: 07-21-2024 ondansetron HCl 4 mg tablet [employer] Start: 07-21-2024 Follow-up encounter ED Follow-up [employer] Start: 05-24-2024 Covid-19 Vaccine ( season) Covid-19 Vaccine ( season) [facility] Start: 05-24-2024 Covid-19 Vaccine ( season) Covid-19 Vaccine ( season) [facility] Start: 05-24-2024 Influenza vaccination Influ[facility] Start: 04-09-2024 30 MIN VISIT 30 MIN VISIT [employer] Start: 03-20-2024 Prob/Focused Visit Prob/Focused Visit [employer] Start: 03-20-2024 triamcinolone acetonide 0.1 % topical cream [employer] Start: 03-05-2024 Same Day Same Day [employer] Start: 03-05-2024 [employer] Start: 12-30-2023 Electrocardiographic procedure [facility] Start: 12-30-2023 Patient discharge [facility] Start: 12-05-2023 20 MIN VISIT 20 MIN VISIT [employer] Start: 11-14-2023 Follow-up encounter ED Follow-up [employer] Start: 11-14-2023 Patient encounter procedure physical therapist referral [employer] Start: 11-14-2023 tizanidine 4 mg tablet [employer] Start: 11-07-2023 [facility] Start: 10-25-2023 Patient referral [facility] Work Phone: Start: 10-18-2023 [facility] Start: 10-17-2023 Follow-up encounter HOSPITAL FOLLOW UP [employer] Start: 10-17-2023 [facility] Start: 10-16-2023 [facility] Start: 10-15-2023 [facility] Start: 10-14-2023 [facility] Start: 10-13-2023 [facility] Start: 10-12-2023 Patient discharge [facility] Start: 10-10-2023 Preoperative care [facility] Start: 10-09-2023 Continuous positive airway pressure ventilation treatment [facility] Start: 10-09-2023 Application of intermittent pneumatic compression device [facility] Start: 10-09-2023 End: 10-09-2023 Following clinical pathway protocol [facility] Start: 10-09-2023 Ambulation without limitation [facility] Start: 10-09-2023 Assessment of risk of venous thromboembolism [facility] Start: 10-09-2023 Consultation [facility] Start: 01-17-2024 Insertion of catheter into peripheral vein [facility] Start: 10-09-2023 Measuring intake and output [facility] Start: 10-09-2023 Oxygen therapy [facility] Start: 10-09-2023 Providing care according to standard [facility] Start: 10-09-2023 Referral to gastroenterology service [facility] Start: 10-09-2023 [facility] Start: 10-09-2023 Verification routine [facility] Start: 10-09-2023 Admission procedure [facility] Start: 10-09-2023 Hospital admission, emergency, from emergency room, medical nature [facility] Start: 08-26-2023 End: 09-09-2023 SARS-CoV-2 (COVID-19) RNA [Presence] in Respiratory specimen by SONJA with probe detection [facility] Work Phone: Comment on above: Expected: 08/26/2023, Expires: Start: 08-22-2023 30 MIN VISIT 30 MIN VISIT [employer] Start: 06-13-2023 30 MIN VISIT 30 MIN VISIT [employer] Start: 05-24-2023 Covid-19 Vaccine () Covid-19 Vaccine () [facility] Start: 05-24-2023 Influenza vaccination [facility] Start: 03-14-2023 20 MIN VISIT 20 MIN VISIT [employer] Start: 11-22-2022 30 MIN VISIT 30 MIN VISIT [employer] Start: 09-23-2022 DEPRESSION ASSESSMENT DEPRESSION ASSESSMENT [facility] Start: 08-23-2022 30 MIN VISIT 30 MIN VISIT [employer] Start: 08-23-2022 Comprehensive metabolic 2000 panel - Serum or Plasma [facility] ([facility]) Start: 08-02-2022 30 MIN VISIT 30 MIN VISIT [employer] Start: 05-24-2022 Influenza vaccination INFLUENZA (Season Ended) [facility] Start: 03-14-2022 [facility] Work Phone: Start: 03-09-2022 20 MIN VISIT 20 MIN VISIT [employer] Start: 03-09-2022 desoximetasone 0.05 % topical cream [employer] Start: 03-02-2022 influenza virus A + B RNA and SARS CoV 2 N gene panel, SONJA+probe, respiratory specimen In-Office Order Start: 03-02-2022 Nursing evaluation of patient and report Nurse Visit [employer] Start: 02-15-2022 30 MIN VISIT 30 MIN VISIT [employer] Start: 02-15-2022 Patient encounter procedure [employer] Start: 01-04-2022 30 MIN VISIT 30 MIN VISIT [employer] Start: 12-14-2021 COVID-19 VACCINE (2 - Pfizer series) COVID-19 VACCINE (2 - Pfizer series) [facility] Start: 11-13-2021 Follow-up encounter ED Follow-up [employer] Start: 11-13-2021 CBC W Auto Differential panel - Blood [facility] (Scheduling) Start: 11-13-2021 CMP, serum or plasma [facility] (Scheduling) Start: 11-13-2021 Patient encounter procedure vestibular therapy referral [employer] Start: 11-13-2021 XR Chest 2 Views [facility] Start: 11-09-2021 COVID-19 VACCINE (2 - Pfizer series) COVID-19 VACCINE (2 - Pfizer series) [facility] Start: 2021 RSV Vaccine (1 - 1-dose 60+ series) RSV Vaccine (1 - 1-dose 60+ series) [facility] Start: 04-06-2021 20 MIN VISIT 20 MIN VISIT [employer], [facility] Start: 02-16-2021 PHYSICAL/PREVENTATIVE [employer] [facility] Start: 02-16-2021 MG Breast - bilateral Screening [facility] Start: 02-09-2021 Lipid 1996 panel - Serum or Plasma Lipid Screening [facility] Start: 02-09-2021 Lipid panel Lipid Screening [facility] Start: 02-09-2021 LIPID SCREEN LIPID SCREEN [facility] Start: 09-13-2019 DIABETES SCREEN DIABETES SCREEN [facility] Start: 09-13-2019 Diabetes Screening Diabetes Screening [facility] Start: 2011 SHINGRIX VACCINE (1 of 2) SHINGRIX VACCINE (1 of 2) [facility] Start: 2006 COLOGUARD (FIT-DNA) COLOGUARD (FIT-DNA) [facility] Start: 2006 Colonoscopy COLONOSCOPY [facility] Start: 2006 COLORECTAL CANCER SCREENING COLORECTAL CANCER SCREENING [facility] Start: [address] COLONOGRAPHY [facility] Start: 2006 FECAL OCCULT BLOOD FECAL OCCULT BLOOD [facility] Start: 2006 Screening for malignant neoplasm of colon [facility] Start: 2006 SIGMOIDOSCOPY SIGMOIDOSCOPY [facility] Start: 2001 Mammography [facility] Start: 2001 Screening for malignant neoplasm of breast Mammogram Screening [facility] Start: 1991 HPV TESTING HPV TESTING [facility] Start: 1982 PAP TESTING PAP TESTING [facility] Start: 1982 Screening for malignant neoplasm of cervix Cervical Cancer Screening [facility] Start: 1980 Urine microalbumin profile DTAP,TDAP,TD (1 - Tdap) [facility] Start: 1979 Anxiety Screening Anxiety Screening [facility] Start: 1979 Depression Screening Depression Screening [facility] Start: 1979 HIV SCREENING HIV SCREENING [facility] Start: 1979 HIV screening HIV Screening [facility] Start: 1973 Adult depression screening assessment DEPRESSION SCREENING [facility] Acute hepatitis 2000 panel - Serum [facility] Alanine aminotransfe rase [Enzymatic activity/volume] in Serum or Plasma [facility] Alanine aminotransfe rase [Enzymatic activity/volume] in Serum or Plasma [facility] Albumin [Mass/volume ] in Serum or Plasma [facility] Albumin [Mass/volume ] in Serum or Plasma [facility] Alkaline phosphatase [Enzymatic activity/volume] in Serum or Plasma [facility] Alkaline phosphatase [Enzymatic activity/volume] in Serum or Plasma [facility] Angiotensin converti ng enzyme [Enzymatic activity/volume] in Serum or Plasma [facility] Anion gap measurement [facility] Anion gap measurement [facility] Aspartate aminotrans ferase [Enzymatic activity/volume] in Serum or Plasma [facility] Aspartate aminotrans ferase [Enzymatic activity/volume] in Serum or Plasma [facility] Bilirubin, total measurement [facility] Bilirubin, total measurement [facility] BUN/Creatinine ratio [facility] BUN/Creatinine ratio [facility] C reactive protein [Mass/volume] in Serum or Plasma [facility] Calcium [Mass/volume ] in Serum or Plasma [facility] Calcium [Mass/volume ] in Serum or Plasma [facility] Carbon dioxide, tota l [Moles/volume] in Serum or Plasma [facility] Carbon dioxide, tota l [Moles/volume] in Serum or Plasma [facility] CBC W Auto Different ial panel - Blood [facility] Ceruloplasmin [Mass/ volume] in Serum or Plasma [facility] Chloride [Moles/volu me] in Serum or Plasma [facility] Chloride [Moles/volu me] in Serum or Plasma [facility] Copper [Moles/volume ] in Serum or Plasma [facility] Creatinine [Moles/vo lume] in Serum or Plasma [facility] Creatinine [Moles/vo lume] in Serum or Plasma [facility] Cytology report of B zoie fluid Cyto stain [facility] Cytoplasmic ANCA Screen [facility] Dilation & curettage dx&/ther nonobstetric Dilation and curettage [employer] [facility] Erythrocyte mean cor puscular volume determination [facility] Erythrocyte mean cor puscular volume determination [facility] Ferritin [Mass/volum e] in Serum or Plasma [facility] Glucose [Mass/volume ] in Serum or Plasma [facility] Glucose [Mass/volume ] in Serum or Plasma [facility] Haptoglobin [Mass/vo lume] in Serum or Plasma [facility] Hematocrit [Volume F raction] of Blood [facility] Hematocrit [Volume F raction] of Blood [facility] Hemoglobin [Mass/vol ume] in Blood [facility] Hemoglobin [Mass/vol ume] in Blood [facility] Hemoglobin A1c/Hemoglobin.total in Blood [facility] HIV 1+2 Ab+HIV1 p24 Ag [Presence] in Serum or Plasma by Immunoassay [facility] Iron and Iron bindin g capacity panel - Serum or Plasma [facility] Lactate dehydrogenas e measurement [facility] Leukocytes [#/volume ] in Blood [facility] Leukocytes [#/volume ] in Blood [facility] Lipid 1996 panel - S michell or Plasma [facility] Liver stiffness by US.transient elastography [facility] Mean corpuscular hem oglobin concentration determination [facility] Mean corpuscular hem oglobin concentration determination [facility] Mean corpuscular hem oglobin determination [facility] Mean corpuscular hem oglobin determination [facility] Measurement of renal function [facility] Measurement of renal function [facility] Microscopic observat ion [Identifier] in Unspecified specimen by Acid fast stain [facility] Mitochondria Ab [Pre sence] in Serum [facility] Neutrophil count [facility] Neutrophil count [facility] Neutrophil percent differential count [facility] Neutrophil percent differential count [facility] Other bilateral liga tion and division of fallopian tubes [employer] [facility] Patient Education [facility] Work Phone: Patient Education [employer] Patient referral [facility] Work Phone: Platelets [#/volume] in Blood [facility] Platelets [#/volume] in Blood [facility] Potassium [Moles/vol ume] in Serum or Plasma [facility] Potassium [Moles/vol ume] in Serum or Plasma [facility] Prothrombin time [facility] Red blood cell count [facility] Red blood cell count [facility] Red cell distributio n width determination [facility] Red cell distributio n width determination [facility] RF Guidance for endo scopy of Biliary ducts and Pancreatic duct-- W contrast retrograde [facility] Smooth muscle Ab [Pr esence] in Serum [facility] Sodium [Moles/volume ] in Serum or Plasma [facility] Sodium [Moles/volume ] in Serum or Plasma [facility] Total protein measurement [facility] Total protein measurement [facility] Troponin T.cardiac [Mass/volume] in Serum or Plasma by High sensitivity method [facility] Urea nitrogen [Mass/ volume] in Serum or Plasma [facility] Urea nitrogen [Mass/ volume] in Serum or Plasma [facility] Vitamin D, 25-hydrox y measurement [facility] Immunizations Immunization Date Immunization Notes Care Provider Fa ez 10-19-2021 SARS-CoV-2 mRNA (tozinameran) vaccine HANK MCMULLEN MD [facility] 10-07-2021 SARS-COV-2 (COVID-19 ) vaccine, mRNA, spike protein, LNP, preservative free, 30 mcg/0.3mL dose Clement Repp [facility] 06-25-2021 tetanus toxoid, redu den diphtheria toxoid, and acellular pertussis vaccine, adsorbed Clement Repp [facility] 03-03-1998 TD(adult) unspecifie d formulation Lina Zendejas [employer] Payers Date Payer Category Payer Unknown [id number] 2023 Private Health Insurance [facility] OPTUM [id number] 2023-Present [phone] [address] [place] [address] PPO [id number] 2023 Unknown [id number] 2022 Unknown [id number] 2021 Self-pay [id number] 2020 Unknown [id number] 2020 Unknown [employer] [id number] 2020-Present [phone] [address] [place] [address] PPO [id number] 2020 Unknown [id number] 1961 Unknown [id number] 2.16.840.1.193836.3.579.2 .627 1961 Unknown [id number] 2.16.840.1.902424.3.579.2 .7 1961 Unknown [id number] 2.16.840.1.114493.3.579.2 .627 1961 Unknown [id number] 2.16.840.1.783627.3.579.2 .627 1961 Unknown [id number] 2.16.840.1.864932.3.579.2 .627 1961 Unknown [id number] 2.16.840.1.884073.3.579.2 .627 1961 Unknown [id number] 2.16.840.1.724400.3.579.2 .627 1961 Unknown [id number] 2.16.840.1.142075.3.579.2 62 1961 Unknown [id number] 2.16.840.1.916864.3.579.2 .627 Unknown [id number] 2.16.840.1.982072.3.579.2 .630 Unknown [id number] 2.16.840.1.226879.3.579.2 .630 Unknown [id number] 2.16.840.1.393908.3.579.2 .630 Unknown [id number] 2.16.840.1.253458.3.579.2 .630 Unknown [id number] 2.16840.1.604653.3.579.2 .630 Unknown [id number] 2.16840.1.017903.3.579.2 .630 Unknown [id number] 2.16840.1.784586.3.579.2 .630 Unknown [id number] 2.840.1.899909.3.579.2 .462 Unknown [id number] 2.16840.1.573512.3.579.2 .462 Unknown [id number] 2.16840.1.750768.3.579.2 .462 Unknown [id number] 2.16840.1.869198.3.579.2 .462 Unknown [id number] 2.16840.1.232423.3.579.2 .462 Unknown [id number] 2.16840.1.341837.3.579.2 .462 Unknown [id number] 2.16840.1.290634.3.579.2 .462 Unknown [id number] 2.16840.1.814756.3.579.2 .462 Unknown [id number] 2.16.840.1.898752.3.579.2 .462 Unknown [id number] 2.16.840.1.909737.3.579.2 .462 Unknown [id number] 2.16840.1.029260.3.579.2 .462 Social History Date Type Detail Facility Start: 02-10-2016 End: 09-20-2019 Tobacco Smoking Status NHIS Never Smoker [place] [employer] [employer] Start: 1960 Sex Assigned At Unknown O [facility] [employer], [facility] Start: 02-10-2016 Tobacco use and exposure Smokeless tobacco non-user [facility] Start: 11-03-2021 End: 02-19-2023 Alcohol intake Current non-drinker of alcohol (finding) [facility] Start: 03-14-2022 End: 12-25-2023 Tobacco smoking status NHIS Unknown if ever smoked [facility] Start: 1960 Sex Assigned At Female [facility] Start: 04-12-2021 End: 08-26-2023 History of Social function [facility] Start: 04-12-2021 End: 08-26-2023 Tobacco use panel [facility] National Score (1-100), lower number is lower risk Not on file [facility] Start: 10-04-2021 End: 11-03-2021 Exposure to SARS-CoV-2 (event) Not sure [facility] Start: 08-17-2019 End: 12-09-2024 Sex Female (finding) [facility] Sexual Orientation [facility] [employer] NEGATED: Highlighted row [facility] Medical Equipment Procedure Code Equipment Code Equipment Original Text Equipment Identifier Dates Total cholecystectomy with exploration of common bile duct Open-surgery ligation clip maintenance job titles [id number] FDA Start: 10-11-2023 Procedure Implant ([id number]) ERCP (endoscopic retrograde cholangiopancreatograph y) ([id number]) Polymeric biliary stent, non-bioabsorbabl e [id number] FDA Start: 10-10-2023 Goals Date Patient Goal Desired Activity /State Functional Status Date Assessment Result Facility 01-13-2025 Functional Status Room check performed [facility] 01-13-2025 Functional Status [facility] 01-13-2025 Functional Status Identification band [facility] 01-13-2025 Functional Status Maintained [facility] 05-26-2024 Functional Status Room check performed [facility] 05-26-2024 Functional Status [facility] 05-26-2024 Functional Status Not done 1 [facility] 05-26-2024 Functional Status [facility] 05-26-2024 Functional Status [facility] 05[facility]25-2024 Functional Status 100 [facility] 05-25-2024 Functional Status Up to Chair Remains up in chair [facility] 05-25-2024 Functional Status [facility] 05-24-2024 Functional Status Done [facility] 05-23-2024 Functional Status Ambulation in Room [facility] 05-23-2024 Functional Status [facility] 05-23-2024 Functional Status [facility] 10-12-2023 Functional status Ambulates [facility] Work Phone: 06-11-2023 Functional Status Ambulation in [facility][note 3] 06-11-2023 Functional Status Marbella [facility] 06-07-2023 Functional Status Independent [facility] 05-06-2023 Functional Status Room check performed [facility] 05-06-2023 Functional Status 90 [facility] 05-06-2023 Functional Status [facility] 05-06-2023 Functional Status [facility] 05-06-2023 Functional Status [facility] 05-06-2023 Functional Status 3pm-3am [facility] 05-05-2023 Functional Status bilateral knee high rem tequila/off [facility] 05-05-2023 Functional Status [facility] 05-05-2023 Functional Status [facility] 05-05-2023 Functional Status Done [facility] 05-05-2023 Functional Status Up to Chair Remains up in chair [facility] 05-05-2023 Functional Status Assistive Device None [facility] 05-05-2023 Functional Status Marbella [facility] 05-04-2023 Functional Status Marbella [facility] 05-04-2023 Functional Status Marb[facility] 05-04-2023 Functional Status Marbella [facility] 05-03-2023 Functional Status One assist [facility] 05-03-2023 Functional Status Patient Identi fied Identification band [facility] 05-03-2023 Functional Status Marbella [facility] 05-03-2023 Functional Status Marbella [facility] 05-02-2023 Functional Status Marbella [facility] 05-02-2023 Functional Status Marbella [facility] 05-02-2023 Functional Status Marbella [facility] 04-30-2023 Functional Status Marbella [facility] 04-30-2023 Functional Status Maintained [facility] 01-31-2023 Functional Status Up ad pre[place] [facility] 01-31-2023 Functional Status Standard Safet y ID band on, Allergy Band on, Call device within reach, Bed in low position, Wheels locked [facility] 01-29-2023 Functional Status Up ad preston [facility] 10-13-2022 Functional Status Independent [facility] 10-13-2022 Functional Status Standard Safet y ID band on, Allergy Band on, Call device within reach, Bed in low position, Wheels locked, Upper/Half-Length side-rails up, Phone within reach [facility] 10-11-2022 Functional Status Room check performed [facility] 10-11-2022 Functional Status Done [facility] 10-11-2022 Functional Status Breakfast Percent 60 [facility] 10-10-2022 Functional Status CHG bath [facility] 10-09-2022 Functional Status Home independe ntly, Lives with family [facility] 10-09-2022 Functional Status [facility] 10-09-2022 Functional Status SCD Removed/Of f bilateral knee high [facility] 10-08-2022 Functional Status NPO Status Initiated [facility] 10-08-2022 Functional Status [facility] 10-08-2022 Functional Status Repositions self [facility] 10-08-2022 Functional Status Sensory Deficits None [facility] 09-14-2022 Functional Status Ambulating in room, Repositions self, Resting, Up ad pre[place], Up to bathroom [facility] 09-14-2022 Functional Status ID band on, Allergy Band on, Bed in low position, Wheels locked, Upper/Half-Length side-rails up [facility] 09-14-2022 Functional Status Maintained [facility] 08-29-2022 Functional Status Awake, Repositions self, Up to bathroom [facility] 08-29-2022 Functional Status [facility] 08-29-2022 Functional Status [facility] 08-29-2022 Functional Status 100 [facility] 08-29-2022 Functional Status Maintained [facility] 04-12-2022 Functional Status Ambulating in room [facility] 04-12-2022 Functional Status [facility] 04-12-2022 Functional Status [facility] 04-12-2022 Functional Status Maintained [facility] Mental Status Date Assessment Result Facility 01-13-2025 Mental Status Orientation Oriented x 4 [facility] 01-13-2025 Mental Status [facility] 01-13-2025 Mental Status [facility] 12-09-2024 Cognitive function Level Of Cons ciousness Awake;Alert;Appropriate;Follow s Commands [facility] Work Phone: 05-26-2024 Mental Status Oriented x 4 [facility] 05-26-2024 Mental Status [facility] 05-26-2024 Mental Status [facility] 05-25-2024 Mental Status [facility] 12-30-2023 Cognitive function Light Pain [facility] Work Phone: 12-30-2023 Cognitive function Patient Orien tation Person;Place;Time [facility] Work Phone: 11-07-2023 Cognitive function Voice/Name [facility] Work Phone: 10-12-2023 Cognitive function Voice/Name [facility] Work Phone: 06-11-2023 Mental Status Oriented x 4 [facility] 06-11-2023 Mental Status [facility] 06-07-2023 Mental Status Oriented x 4 [facility] 05-06-2023 Mental Status Orientation Orie nted x 4, Follows simple commands [facility] 05-06-2023 Mental Status [facility] 05-06-2023 Mental Status [facility] 05-05-2023 Mental Status Orientation Asse ssment Oriented x 4 [facility] 05-05-2023 Mental Status [facility] 05-05-2023 Mental Status [facility] 01-31-2023 Mental Status Orientation Oriented x 4 [facility] 01-29-2023 Mental Status Orientation Oriented x 4 [facility] 01-29-2023 Mental Status [facility] 10-13-2022 Mental Status Orientation Oriented x 4 [facility] 10-13-2022 Mental Status [facility] 10-11-2022 Mental Status Oriented x 4 [facility] 10-11-2022 Mental Status [facility] 10-08-2022 Mental Status Orientation Asse ssment Oriented x 4 [facility] 09-14-2022 Mental Status Orientation Orie nted x 4, Follows simple commands [facility] 09-14-2022 Mental Status [facility] 09-14-2022 Mental Status [facility] 08-29-2022 Mental Status Orientation Oriented x 4 [facility] 08-29-2022 Mental Status [facility] 08-29-2022 Mental Status [facility] 04-12-2022 Mental Status Oriented x 4 [facility] 04-12-2022 Mental Status [facility] 04-12-2022 Mental Status [facility] 04-12-2022 Mental Status [facility] 03-14-2022 Cognitive function Level Of Cons ciousness Awake;Alert;Appropriate;Follow s Commands [facility] Work Phone: Clinical Notes 02-16-2021 to 05-20-2025 Note Date & Type Note Facility 05-20-2025 Evaluation note Encounter Date Assessment Date Assessment LastModified by 5 5 mammo done 04[facility]2025 [facility] Not available 05/20/2025 15:20:39 [place] [facility] 04-23-2025 Hospital Discharge instructions Patient Education 01/13/2025 10:54:43 3- Heart Cath/PCI radial (06/2018) (CUSTOM) HEART CATHETERIZATION/PCI (radial) Discharge Instructions DIET Drink plenty of fluids for the next 48 hours to help your kidneys flush the heart cath dye out of your system ACTIVITY For the next 48 hours: Do not deep bend the wrist Do not lift, push, or pull anything over 5 pounds for 5 days Do not use the hand/arm to support your weight when rising from a chair or bed Do not drive For the next 7 days: Do not submerse your procedure site in water Do not swim, wash dishes, or take tub baths You may write, eat, type, and shower WOUND CARE You will go home with a dressing over your procedure site. After 24 hours, you may remove the dressing, shower, and replace with a Band-Aid. Keep a Band-Aid on your procedure site [...] 08/26/2013 Document Reviewed: 09/10/2014 ExitCare Patient Information 2014 [employer]. This information is not intended to replace advicegiven to you by your health care provider. Make sure you discuss any questions you have with your health care provider. 01/13/2025 09:41:04 Moderate Conscious Sedation, Adult, Care After Moderate Conscious Sedation, Adult, Care After These instructions provide you with information about caring for yourself after your procedure. Your health care provider may also give you more specific instructions. Your treatment has been plannedaccording to current medical practices, but problems sometimes occur. Call your health care provider if you have any problems or questions after your procedure. What can I expect after the procedure? After your procedure, it is common: To feel sleepy for several hours. To feel clumsy and have poor balance for several hours. To have poor judgment for several hours. To vomit if you eat too soon. Follow these instructions at home: For at least 24 hours after the procedure: Do not: ?Participate in activities where you could fall or become injured. ?Drive. ?Use heavy machinery. ?Drink alcohol. ?Take sleeping pills or medicines that cause drowsiness. ?Make important decisions or sign legal documents. ?Take care of children on your own. Rest. Eating and drinking Follow the diet recommended by your health care provider. If you vomit: ?Drink water, juice, or soup when you can drink without vomiting. ?Make sure you have little or no nausea before eating solid foods. General instructions Have a responsible adult stay with you until you are awake and alert. Take lucx-puk-udwumnw and prescription medicines only as told by your health care provider. If you smoke, do not smoke without supervision. Keep all follow-up visits as told by your health care provider. This is important. Contact a health care provider if: You keep feeling nauseous or you keep vomiting. You feel light-headed. You develop a rash. You have a fever. Get help right away if: You have trouble breathing. This information is not intended to replace advice given to you by your health care provider. Make sure you discuss any questions you have with your health care provider. Document Released: 06/30/2014 Document Revised: 08/22/2018 Document Reviewed: 12/29/2016 [employer] Patient Education 2020 [employer]. Follow Up Care 01/05/2025 15:14:22 With:HANK MCMULLEN MD Address: [address] [facility] [address] [place] [address]- [phone] When:02/09/2025 11:00:00 Comments:THIS APPOINTMENT WILL BE WITH JACY BAUMAN CNP [facility] 04-23-2025 Summary of episode note Discharge Instructions Thank you for allowing [facility] to assist you with your healthcare needs. The following is importantdischarge information regarding your hospital visit. Your Care Team LYN HA MD What to do next Scheduled Follow-Up Appointments Appointment Type When With Where Contact Information StatusCV OV Hospital Follow Up 02/09/2025 11:00 AM EDT JACY BAUMAN [facility] Confirmed CV OV 06/18/2025 01:00 PM EDT [facility] Confirmed CV OV 01/05/2026 10:45 AM EDT ZACH [facility] Confirmed Follow Up Appointments Follow Up with HANK MCMULLEN MD When:02/09/2025 11:00 AM EDT Where:[address] [place] [address]- [phone] Additional Information: THIS APPOINTMENT WILL BE WITH JACY BAUMAN CNP Allergies Bactrim Itching, Rash Cigarette smoke Watery [...] When Instructions Last Dose Unchanged aspirin (aspirin 325 mg oral tablet) by mouth As needed for Chest pain Unchanged busPIRone (busPIRone 5 mg oral tablet) [...] mg oral TABLET extended release) See instructions take 1 in am and 0.5 in pm Unchanged potassium chloride (potassium chloride 20 mEq/ 15 mL (10%) ORAL liquid) 15 Milliliter by mouth Two (2) times a day taking 5 mL Unchanged rivaroxaban (Xarelto 20 mg oral tablet) [...] push, or pull anything over 5 pounds for 5 days Do not use the hand/arm to support your weight when rising from a chair or bed Do not drive For the next 7 days: Do not submerse your procedure site in water Do not swim, wash dishes, or take tub baths You may write, eat, type, and shower WOUND CARE You will go home with a dressing over your procedure site. After 24 hours, you may remove the dressing, shower, and replace with a Band-Aid. Keep a Band-Aid on your procedure site [...] Document Reviewed: 09/10/2014 ExitCare Patient Information 2015 [employer]. This information is not intended to replace advicegiven to you by your health care provider. Make sure you discuss any questions you have with your health care provider. Moderate Conscious Sedation, Adult, Care After These instructions provide you with information about caring for yourself after your procedure. Your health care provider may also give you more specific instructions. Your treatment has been plannedaccording to current medical practices, but problems sometimes occur. Call your health care provider if you have any problems or questions after your procedure. What can I expect after the procedure? After your procedure, it is common: To feel sleepy for several hours. To feel clumsy and have poor balance for several hours. To have poor judgment for several hours. To vomit if you eat too soon. Follow these instructions at home: For at least 24 hours after the procedure: Do not: ? Participate in activities where you could fall or become injured. ? Drive. ? Use heavy machinery. ? Drink alcohol. ? Take sleeping pills or medicines that cause drowsiness. ? Make important decisions or sign legal documents. ? Take care of children on your own. Rest. Eating and drinking Follow the diet recommended by your health care provider. If you vomit: ? Drink water, juice, or soup when you can drink without vomiting. ? Make sure you have little or no nausea before eating solid foods. General instructions Have a responsible adult stay with you until you are awake and alert. Take jcvn-gcl-omubeyh and prescription medicines only as told by your health care provider. If you smoke, do not smoke without supervision. Keep all follow-up visits as told by your health care provider. This is important. Contact a health care provider if: You keep feeling nauseous or you keep vomiting. You feel light-headed. You develop a rash. You have a fever. Get help right away if: You have trouble breathing. This information is not intended to replace advice given to you by your health care provider. Make sure you discuss any questions you have with your health care provider. Document Released: 06/30/2014 Document Revised: 08/22/2018 Document Reviewed: 12/29/2016 ElseTreato Patient Education 2020 [employer]. Additional Information VACCINATE! IT SAVES LIVES! Members of the community who have not yet received the COVID-19 vaccine and would like to receive it can visit one of [facility] vaccine clinics. There are many vaccine clinic locations within the [facility]. For locations and available times, please visit https://gettheshot.coronavirus.[place].gov/. It is important to note that some COVID mobile vaccine clinics are held outdoors and may be canceled in rainy or stormy conditions. To learn more about pediatric vaccinations (ages 5-11), we invite you to visit the [facility] webpage. https://www.[employer].org/pages/7548-Ufrjz-Qkqqlircmlg-Zxtzdaljrw-Jxrrd-Kfg stions.htmlTo learn more about the COVID-19 vaccine, we invite you to visit the CDC website for a list of frequently asked questions.https://www.cdc.gov/coronavirus/2019-ncov/vaccines/faq.html [facility] Patient Portal Access Instructions: Stay connected with your healthcare team and access your personal medical information anytime with the [facility] Patient Portal. Please follow the directions below to create your [facility] account: 1.Access the email account you provided upon registration to the hospital/physician office.2.Look for an invitation email from [facility].3.Open the email and access the invitation link: AcceptInvitation to [facility].4.Fill in the required العلي to create your account. To access your account, visit [employer]. Click the blue button labeled Access Patient Portal and then log in with the username and password that you created in the steps above. You will be able to view your test results, lab results, a summary of your visits, upcoming appointments and more. There is also a convenient messaging option where you can send secure messages to your p saivider. In addition, you will have the ability to download any documents or summaries to your computer and/or send the information securely to a physician. Remember that your healthcare information is confidential, so carefully consider who you will allowto register on the [facility] Portal for access to your information. You can also access the [facility] Patient Portal on the [facility] aleena. Simply click on Patient Portal and then log into your account. If you would like to receive a full copy of your medical records, please contact the [facility] Medical Records Department by calling [phone], Saturday through Saturday between 8 a.m. and [...] Call your local pharmacy or go to [email or web address]/6D4Pj7w to find one close to you.3.Make use of household items: Use cat litter or old coffee grounds to dispose medications if other options arenot available. Mix your drugs with these household products, seal them in an airtight container andthrow it into the garbage. Call [facility]: [phone] to be sure your drugs can be [...] Cath/PCI radial (06/2018) (CUSTOM) Moderate Conscious Sedation, Adult, Care After Medication Leaflets My discharge plan and instructions have been reviewed and explained to me and I,YUE ANGULO understand my current condition and have read and understand these discharge instructions. I have received a written copy of the plan/instructions. If I have questions, I am aware that I should contact my doctor. 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 Continue medical management at this time. Allergies Bactrim Itching, Rash Cigarette smoke Watery eye, Nasal drainage Dilaudid Nausea and vomiting, Diarrhea, Dizziness codeine HALLUCINATIONS ibuprofen Itching iodinated radiocontrast dyes Racing heartbeat morphine Itching sulfa drugs Itching, Rash Consults No qualifying data available. Objective Vitals and Measurements T: 36.5 C (Oral) HR: 67 RR: 18 BP: 127/77 SpO2: 93% HT: 165.1 cm WT: 82.6 kg Weight Dosing Weight: 82.6 kg (01/13/25) Code Status No qualifying data available. Medications Unchanged aspirin (aspirin 325 mg oral tablet)by mouth as needed Chest pain. busPIRone (busPIRone 5 mg oral tablet)2 tab(s) by mouth three (3) times a day as needed Anxiety. cholecalciferol (Vitamin D3 1000 intl units oral tablet)1 tab(s) by mouth once a day. cyanocobalamin (cyanocobalamin 1000 mcg oral tablet)1 tab(s) by mouth once a day. dofetilide (Tikosyn 500 mcg oral capsule)1 cap by mouth two (2) times a day. Refills: 3. magnesium oxide (magnesium oxide 250 mg oral tablet)1 tab(s) by mouth two (2) times a day. metoprolol (metoprolol succinate 25 mg oral TABLET extended release)take 1 in am and 0.5 in pm. Refills: 3. potassium chloride (potassium chloride 20 mEq/15 mL (10%) ORAL liquid)15 Milliliter by mouth two (2) times a day. taking 5 mL. rivaroxaban (Xarelto 20 mg oral tablet)1 tab(s) by mouth once a day. Refills: 3. tadalafil (Tadalafil (Eqv-Cialis) 20 mg oral tablet)1 tab(s) by mouth two (2) times a day. Refills:3. Follow Up Follow Up with HANK MCMULLEN MD When:02/09/2025 11:00 AM EDT Where:[address] [facility] [address] [facility] [place] [address]- [phone] Additional Information: THIS APPOINTMENT WILL BE WITH JACY BAUMAN CNP Follow Up Appointments No qualifying data available. Follow Up Labs/Studies Discharge Labs No Follow-up Labs Discharge Studies No Follow-up Studies Discharge Diet No qualifying data available. Discharge Activity No qualifying data available. Readmission Risk/Palliative Score No qualifying data available. Digitally Signed by HANK MCMULLEN MD on 01/13/2025 10:30 AM [facility] [id number] Evaluation note* Encounter Date Assessment Date Assessment LastModified by Organization Details LastModified Time 12/10/2024 12/10/2024 has not had 2024 mammo yet--[facility] Not available 12/10/2024 15:06:48 [place] - [facility] 03-19-2025 Discharge summary [facility] Medical Records Department [address] [place] [address] Emergency Department Summary 12/09/24 MR#: [id number] Acct: [id number] Name: YUE ANGULO Rep #:[id number] : 1960 64 From: Gamal Simons DO PCP: Dr. Lina Zendejas MD Status:R EG ER Location: ED HPI History of Present Illness Chief Complaint: Chest Pain Narrative Narrative: Patient is a 64-year-old female with past medical history of atrial fibrillation/atrial flutter on Eliquis, pulmonary hypertension, FARSHAD, CHF, anxiety, IBS, GERD who presented to the emergency department the chief complaintof chest pain. Patient states that she has had chest pain on and off since the middle of October. States that she was supposed to see a rn integrated at 3:15 PM this afternoon at [facility] with Dr. Mcmullen. She states that she also follows with the heart failure specialist there as well as the car pick up driver there. She states that she has had a partial ablation in the past as she had not been able to undergo the full procedure secondary to a repaired ASD. Patientstates that the pain woke her up out of the a sleep this morning around 7 AM. States that she took her metoprolol and noted that she felt like she wanted to atrial fibrillation. States that she had worsening paintherefore she came here for the valuation management. Patient states that her pain doesnot radiate where. Patient states that she is not currently on digoxin nor Cardizem she states thather car pick up driver was trying to for medications to control her rate in the past therefore these medications are in her chart. Patient denies any sick contacts otherwise feels well. Patient states that she has been compliant with her Xarelto not missing doses PFSH [facility] Medical History Wears glasses Depression Anxiety Arthritis Fatty liver Easy bruising Restless legs Migraine headache History of IBS GERD (gastroesophageal reflux disease) CPAP (continuous positive airway pressure) dependence Chronic cough Shortness of breath on exertion Non-smoker History of echocardiogram History of stress test Hypertension Cardiology follow-up encounter History of atrial fibrillation A-fib Pulmonary HTN Sleep apnea Home Medications ?Medication ?Instructions ?Recorded ?Last Taken ?Type rivaroxaban 20 mg tablet (Xarelto) 20 mg PO QPM BLOOD THINNER 03/14/22 12/25/23 History buspirone 5 mg tablet 5 mg PO TID PRN ANXIETY 09/2312/29/23 History cholecalciferol (vitamin D3) 25 25 mcg PO DAILY SUPPLE MENT 10/09/23 07/28/24 History mcg (1,000 unit) tablet (Vitamin D3) cyanocobalamin (vitamin B-12) 1,000 mcg PO DAILY SUPPL EMENT 10/09/23 07/27/24 History 1,000 mcg capsule dofetilide 500 mcg capsule 500 mcg PO BID AFIB 4 12/29/23 History (Tikosyn) magnesium 250 mg tablet 250 mg PO BID SUPPLEMENT 12/29/23 History potassium chloride 20 mEq 20 meq PO DAILY PRN SUPPLEME NT 10/09/23 12/27/23 History tablet,extended release (K-Tab) tadalafil 20 mg tablet 20 mg PO BID LUNGS 10/09/23 12/29/23 History digoxin 125 mcg (0.125 mg) tablet 125 mcg PO DAILY 10/1607/27/24 History aspirin 81 mg chewable tablet 1 tab PO DAILY 07/16/24 07/26/24 History diltiazem HCl 30 mg tablet 30 mg PO Q6H PRN afib 07/1607/28/24 History (Cardizem) ondansetron 4 mg disintegrating 4 mg PO Q8H PRN nausea and 07/16/24 Unknown Rx tablet vomiting #12 tabs Allergy/AdvReac Type Severity Reaction Status Date / Time codeine Allergy Other Verified 07/28/24 23:00 ibuprofen (From Motrin) Allergy Hives Verified 07/28/24 23:00 Iodinated Contrast Media (CT) Allergy Chest Verified 07/28/24 23:00 tightness morphine Allergy Hives Verified 07/28/24 23:00 phenytoin sodium (From Allergy Other Verified 07/28/24 23:00 Dilantin) phenytoin sodium extended Allergy Other Verified 07/28/24 23:00 (From Dilantin) sulfamethoxazole (From Allergy Hives Verified 11/05/24 23:00 Bactrim) trimethoprim (From Bactrim) Allergy Hives Verified 07/28/24 23:00 Family History Father Lung cancer Obesity Aunt Diabetes CAD (coronary artery disease) Mother VSD (ventricular septal defect) Thyroid disorder Brother Leukemia Grandmother Breast cancer Surgical History History of cardiac catheterization History of atrial septal defect repair (~2021) S/P ERCP S/P laparoscopic cholecystectomy Hx of maze procedure Hx of tubal ligation History of bunionectomy Hx of tonsillectomy Social History Smoking Status: Never smoker ROS ROS ED ROS Narrative Constitutional: Denies fevers, chills, headaches, lightness, dizziness Eyes: Denies change in vision double vision blurry vision Cardiovascular: Complaint chest pain as noted above denies palpitations Respiratory: States that she developed shortness of breath with exertion Abdomen: Denies abdominal pain nausea vomit diarrhea : Denies urinary symptoms Neurological: Denies numbness, weakness, tingling Musculoskeletal: Denies back pain Skin: Denies rashes or lesions EXAM Physical Exam Const Vital Signs: 12/09/24 08:51 12/09/24 08:59 12/09/24 10:44 Temperature 98.9 F Temperature Source Oral Pulse Rate 116 H 98 Respiratory Rate 18 19 H Blood Pressure 136/84 H Blood Pressure Mean 101 Pulse Ox 98 97 Oxygen Delivery Method Room Air Room Air Room Air 12/09/24 11:00 12/09/24 12:00 12/09/24 13:00 Temperature Temperature Source Pulse Rate 111 H 68 Respiratory Rate 20 H 19 H Blood Pressure 124/73 H 124/76 H 113/58 L Blood Pressure Mean 90 92 73 Pulse Ox 96 Oxygen Delivery Method MDM MDM MDM Narrative Medical decision making narrative: Patient is a 64-year-old female who presented to the emerged part with chief complaint chest pain and concern for being in atrial fibrillation/atrial flutter. On the differential diagnose includes but not limited to atrial fibrillation, atrial flutter, ACS, pneumonia, pneumothorax, CHF exacerbation. Once workup is obtained reviewed she will be reevaluated. Echo from 10/10/2023 was reviewed which showed ejection fraction of 55 to 60% at that point in time.She had normal aortic root no pericardial effusion noted. Patient's CBC was reviewed and showed no evidence leukocytosis white blood countnormal 5.8, hemoglobin 14.2, platelet count normal at 167. Patient INR 1.3, PT of 15.9 is chronically anticoagulated onXarelto. Patient sodium normal 139, potassium normal at 4.1, creatinine normal at 0.80. Patient's troponin was noted be 7 with a delta troponin normal at 9. Patient's original EKG showed atrial flutter with a rate of 113 bpm. Patient's proBNP normal at 225. Patient's chest x-ray reviewed by myself by radiology showed no acute cardiopulmonary processes. On reevaluation the patient she has. Did convert into sinus rhythm on the monitor therefore EKG will be repeated. This repeat EKG was reviewed by myself which showed sinus bradycardia with a rate of 59 bpm with evidence of first- degree AV block. I called and discussed case with her rn integrated at [facility] Dr. Mcmullen and states that shehad a heart cath about 2 years ago that was normal. She does not have any underlying vascular disease he states. He states that she canbe discharged and come to her appointment in his office at 315 this afternoon. I discussed this plan and results with the patient she is agreeable this plan all question concerns answered she is discharged home in stable condition. Lab Data Labs: Laboratory Results - last 24 hr 12/09/24 12/09/24 09:13 11:21 WBC 5.8 RBC 4.63 Hgb 14.2 Hct 40.0 MCV 86.4 MCH 30.7 MCHC 35.5 RDW Std Deviation 42.1 RDW Coeff of Jenn 13.8 Plt Count 167 MPV 10.1 Immature Gran % (Auto) 0.500 Neut % (Auto) 62.0 Lymph % (Auto) 27.1 [place] % (Auto) 7.2 Eos % (Auto) 2.7 Baso % (Auto) 0.5 Absolute Neuts (auto) 3.6 Absolute Lymphs (auto) 1.58 Nucleated RBC % 0 PT 15.9 H INR 1.3 APTT 23.4 L Sodium 139 Potassium 4.1 Chloride 104 Carbon Dioxide 22.7 Anion Gap 12 BUN 14 Creatinine 0.80 Est GFR (MDRD) Non-Af 83 BUN/Creatinine Ratio 16.9 Glucose 109 H Calcium 9.6 Troponin T High Sens 7 Troponin T Hi Sens 2 Hr 9 NT pro BNP II 225 Radiography Diagnostic Testing: Clinical Impression(s) from Imaging Studies Chest X-Ray 12/09/24 08:56 IMPRESSION: No acute abnormality is seen. Reading Location: [place] [address] Discharge Plan Triage Chief Complaint: Chest Pain ED Provider: Gamal Simons Dx/Rx/DC Orders Clinical Impression: Chest pain, Atrial fibrillation and flutter Prescriptions: No Action digoxin 125 mcg (0.125 mg) tablet 125 mcg PO DAILY Xarelto 20 mg Tablet 20 mg PO QPM Rx Instructions: TAKE ONE TABLET BY MOUTH ONCE DAILY. MUST ADMINISTER WITH MEAL. cyanocobalamin (vitamin B-12) 1,000 mcg capsule 1,000 mcg PO DAILY dofetilide [Tikosyn] 500 mcg capsule 500 mcg PO BID tadalafil 20 mg tablet 20 mg PO BID magnesium 250 mg tablet 250 mg PO BID cholecalciferol (vitamin D3) [Vitamin D3] 25 mcg (1,000 unit) tablet 25 mcg PO DAILY potassium chloride [K-Tab] 20 mEq tablet extended release 20 meq PO DAILY PRN (Reason: SUPPLEMENT ) Patient Comments: PT STATES THEY TAKE ONE POTASSIUM CHLORIDE 20MEQ ONCE DAILY ONLY IF THEY TAKEA DOSE OF BUMETANIDE ( OF 10-09-22) Rx Instructions: TAKE ONE TABLET BY MOUTH ONCE DAILY ONLY IF BUMETANIDE IS TAKEN buspirone 5 mg tablet 5 mg PO TID PRN (Reason: ANXIETY ) aspirin 81 mg tablet,chewable 1 tab PO DAILY diltiazem HCl [Cardizem] 30 mg tablet 30 mg PO Q6H PRN (Reason: afib) ondansetron 4 mg tablet,disintegrating 4 mg PO Q8H PRN (Reason: nausea and vomiting) Qty: 12 0RF Primary Care Provider: Lina Zendejas Referrals: Lina Zendejas MD [Primary Care Provider] - Activity Restrictions/Additional Instructions: Follow-up with your rn integrated at your scheduled appointment today. Return with worsening symptoms or other concerns. Print Language: Taiwanese Disposition Disposition: Home, Self Care What to do if you have Problems For any increased pain, shortness of breath, bleeding, nausea or vomiting, chestpain, or any unexpected problems, contact your Primary Care Provider. Call [facility] ([phone]) or report tothe closest Emergency Room. Call 911 if necessary. 12/09/24 1344 Cosigner Signature (if applicable): CC: Dr. Lina Zendejas MD ~ Signed [facility]03-19-2025 Radiology Diagnostic study note [facility] Imaging Services [address] [place] [address] Chest PA and Lateral MR#: [id number] Acct: [id number] Name: YUE ANGULO Rep #: [id number] : 1960 F 64 From: Ignacio Porter MD PCP: Dr. Lina Zendejas MD Status: P RE ER Study:Chest PA and Lateral Date of Exam: 12/09/24 Exam# [id number] Ordering Dr: Remington Simons DO PROCEDURE: CHEST PA AND LATERAL 12/09/2024 REASON FOR EXAM: CHEST PAIN TECHNIQUE: Frontal and lateral views of the chest. COMPARISON: Comparison is made with prior study dated July 28, 2024. FINDINGS: EKG electrodes are seen. A clip is seen overlying the left atrial appendage. The mediastinal contour is unremarkable. No acute abnormality is seen. RAD/Chest PA and Lateral IMPRESSION: No acute abnormality is seen. Reading Location: [facility] CC: Dr. Lina Zendejas MD; Dr. Gamal Simons DO ~ Paper Pattern Folder: Signed [facility]11-14-2024 Evaluation note* Encounter Date Assessment Date Assessment LastModified by Organization Details LastModified Time 08/06/2024 08/06/2024 pt reluctant to undergo colonoscopy due to high sodium content of prep and potential triggering of afib. advised discuss further w/ cardiology pro[facility] Not available 08/06/2024 16:21:13 [employer] [facility] 09-03-2024 Note Discharge Instructions Thank you for allowing [facility] to assist you with your healthcare needs. The following is importantdischarge information regarding your hospital visit. Your Care Team LINA ZENDEJAS MD What to do next Instructions From Your Doctor Please stop taking metoprolol and begin taking nebivolol 2.5 mg daily. We will send you with a 30-day placer miner that we will be delivered to your house. Please follow-up with Dr. Hardy in the outpatient clinic. Scheduled Follow-Up Appointments Appointment Type When With Where Contact Information StatusCV OV 07/10/2024 01:00 PM EDT [facility] Confirmed CV OV 09/25/2024 11:30 AM EST [facility] Follow Up with LINA ZENDEJAS MD, [facility], Internal Medicine Where: [facility] [address] [place] [address]- [phone] Additional Information: PLEASE CALL THIS OFFICE TO SCHEDULE A HOSPITAL FOLLOW UP APPOINTMENT. Follow Up with MACI HARDY MD When:07/10/2024 01:00 PM EDT Where:[address] [place] [address]- [phone] Follow Up with HANK MCMULLEN MD When:09/25/2024 11:30 AM EST Where:[address] [facility] [address] [place] [address]- [phone] The Following Activity and Diet Have Been [...] within 7 days after discharge, please call [facility] at [phone]. Post Acute Orders No qualifying data available. [...] mouth Every day Refills: 3 Pickup at [facility] Changed cyanocobalamin (cyanocobalamin 1000 mcg [...] Two (2) times a day Pharmacy Information [facility]: [address] [place] [address] [phone] What How Much When Comments Stop Taking [...] may report side effects to FDA at 5-147-TBG-2082. What other drugs will affect nebivolol? Sometimes it is not safe to use certain medications at the same time. Some drugs can affect your blood levels of other drugs you take, which may increase side effects or make the medications less effective. Many drugs can affect nebivolol. This includes prescription and dxyj-txk-ezqiykp medicines, vitamins, and herbal products. Not all [...] to ensure that the information provided by [employer]. ('[employer]') is accurate, up-to-date, and complete, but no guarantee is made to that effect. Drug information contained herein may be time sensitive. [employer] information has been compiled for use by healthcare practitioners and consumers in the [place] and therefore [employer] does not warrant that uses outside of the [place] are appropriate, unless specifically indicated otherwise. [employer] drug information does not endorse drugs, diagnose patients or recommend therapy. [employer] drug information isan informational resource designed to [...] effective or appropriate for any given patient. [employer] does not assume any responsibility for any aspect of healthcare administered with the aid of information [employer] provides. The information contained herein is not intended to cover all possible uses, directions, precautions, warnings, drug interactions, allergic reactions, or adverse effects. If you have questions about the drugs you are taking, check with your doctor, nurse or pharmacist. Copyright 6773-0031 [employer]. Version: 5.01. Revision Date: 12/16/2018. Education Materials [...] may be diagnosed with: Electrocardiogram (ECG). 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 This device records your heartbeats for 24 [...] 09/09/2006 Document Revised: 10/30/2018 Document Reviewed: 10/31/2018 [employer] Patient Education 2020 [employer] Additional Information VACCINATE! IT SAVES LIVES! Members of the community who have not yet received the COVID-19 vaccine and would like to receive it can visit one of [facility] vaccine clinics. There are many vaccine clinic locations within the [facility]. For locations and available times, please visit [email or web address].[place].gov/. It is important to note that some COVID mobile vaccine clinics are held outdoors and may be canceled in rainy or stormy conditions. To learn more about pediatric vaccinations (ages 5-11), we invite you to visit the [facility] webpage. https://www.[facility].org/pages/3131-Cryrm-Nuiaccakqzp-Pphergvtyd-Diqvl-Cih stions.htmlTo learn more about the COVID-19 vaccine, we invite you to visit the CDC website for a list of frequently asked questions.https://www.cdc.gov/coronavirus/2019-ncov/vaccines/faq.html [facility] Patient Portal Access Instructions: Stay connected with your healthcare team and access your personal medical information anytime with the [facility] Patient Portal. Please follow the directions below to create your [employer] account: 1.Access the email account you provided upon registration to the hospital/physician office.2.Look for an invitation email from [facility].3.Open the email and access the invitation link: AcceptInvitation to [facility].4.Fill in the required العلي to create your account. To access your account, visit [employer]. Click the blue button labeled Access Patient Portal and then log in with the username and password that you created in the steps above. You will be able to view your test results, lab results, a summary of your visits, upcoming appointments and more. There is also a convenient messaging option where you can send secure messages to your p [employer]. In addition, you will have the ability to download any documents or summaries to your computer and/or send the information securely to a physician. Remember that your healthcare information is confidential, so carefully consider who you will allowto register on the [facility] Patient Portal for access to your information. You can also access the [facility] Patient Portal on the [facility]ena. Simply click on Patient Portal and then log into your account. If you would like to receive a full copy of your medical records, please contact the [facility] Medical Records Department by calling [phone], Saturday through Saturday between 8 a.m. and [...] Call your local pharmacy or go to [email or web address] to find one close to you.3.Make use of household items: Use cat litter or old coffee grounds to dispose medications if other options arenot available. Mix your drugs with these household products, seal them in an airtight container andthrow it into the garbage. Call [facility]: [phone] to be sure your drugs can be [...] aware that I should contact my doctor. 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 This device records your heartbeats for 24 [...] 09/09/2006 Document Revised: 10/30/2018 Document Reviewed: 10/31/2018 [employer] Patient Education 2020 [employer]. Follow Up Care 05/23/2024 05:29:02 With:LINA ZENDEJAS MD, [facility], Internal Medicine Address: [facility] [address] [place] [address]- [phone] When: Unknown Comments:PLEASE CALL THIS OFFICE TO SCHEDULE A HOSPITAL FOLLOW UP APPOINTMENT. With:MACI HARDY MD Address: [address] [place] [address] [address] [place] [address]- [phone] When:07/10/2024 13:00:00 With:HANK MCMULLEN MD Address: [address] [facility] [address] [place] [address]- [phone] When:09/25/2024 11:30:00 [facility] 09-03-2024 Discharge summary Date of Service 05/26/24 Discharge [...] hours. Will be discharged with a 30-day placer miner with plans to follow-up with Dr. Hardy [...] HR: 56 (Monitored) RR: 18 BP: 109/40 SpO2:95% Weight Dosing Weight: 81 kg (05/23/24) General: [...] We will send you with a 30-day placer miner that we will be delivered to your [...] mouth every day as needed Swelling/weight gain.Refills: 3. busPIRone (busPIRone 5 mg oral tablet)2 [...] by mouth two (2) times a day. Refills:3. Discontinued colchicine (colchicine 0.6 mg oral tablet)1 [...] release)1 tab(s) by mouth once a day asneeded Control symptoms. potassium chloride (Klor-Con M20 oral tablet, extended release)1 tab(s) by mouth once a day. Refills: 3. Follow Up Follow Up with LINA ZENDEJAS MD, [facility], Internal Medicine When:Within 1-2 days Where:[facility] [address] [place] [phone] Follow Up Appointments No qualifying data available. [...] AM Digitally Signed by GEOFFREY LEE MD [facility] [id number] Cardiology Progress note Date of Service 05/25/24 [...] CLAIRE COLON DO on 05/25/2024 12:19 PM [facility] [id number] Cardiology Progress note Date of Service 05/25/24 [...] CLAIRE COLON DO on 05/25/2024 12:19 PM [facility] [id number] Note Date of Service 05/25/2024 Chief Complaint [...] tics, normal sensationto pressure and light touch Weight Dosing Weight: [...] junction ablation later on if she does notrespond to the above-mentioned therapies. Digitally Signed by MACI HARDY MD on 05/25/2024 11:28 AM [facility] [id number] Note* Exam Date Time Procedure Performing Provider Status 05/25/24 11:19 AM Echocardiogram, Adult - CV Auth (Verified) [facility] 09-01-2024 Cardiology Progress note Date [...] JUSTIN MORILLO MD on 05/24/2024 12:34 PM [facility] [id number] Consult note Date of Service 05/24/2024 Reason [...] of bladder: 1991 Tonsillectomy: 1964 Medications Inpatient acetaminophen, 650 mg= 2 tab(s), [...] MACI HARDY MD on 05/24/2024 01:23 PM [facility] [id number] Cardiology Progress note Date of Service 05/24/24 [...] JUSTIN MORILLO MD on 05/24/2024 12:34 PM [facility] [id number] History and physical note Date of Service [...] JUSTIN MORILLO MD on 05/23/2024 05:08 PM [facility] [id number] History and physical note Date of Service [...] JUSTIN MORILLO MD on 05/23/2024 05:08 PM [facility] [id number] History and physical note Date of Service [...] JUSTIN MORILLO MD on 05/23/2024 05:08 PM [facility] [id number] NoteATRIAL FIBRILLATION LOW VOLTAGE, PRECORDIAL LEADS NONSPECIFIC T-WAVE ABNORMALITY Electronic Signature: GEOFFREY DEWEY MD 05/24/2024 15:50:55[facility] 08-31-2024 Evaluation + Plan noteExtracted [...] Scheduled Tests Laboratory* Basic Metabolic Panel 03/18/24 [facility] 08-31-2024 NoteATRIAL FIBRILLATION THEN SINUS RHYTHM LOW VOLTAGE, PRECORDIAL LEADS Electronic Signature: GEOFFREY DEWEY MD 05/24/2024 15:50:02[facility] 07-18-2024 Evaluation note* Encounter Date Assessment Date Assessment LastModified by Organization Details LastModified Time 04/09/2024 04/09/2024 [facility] Not available 04/09/2024 15:19:12 [employer] [facility] [employer] 04-08-2024 History and physical note Author Roberto Carlos Friend [facility] December 30, 2023 10:26am Note Date/Time December 30, 2023 10:2 6am [facility] Medical Records Department [address] [place] [address] History & Physical Exam 12/30/23 1026 MR#: [id number] Acct: [id number] Name: YUE ANGULO Rep #:[id number] : 1960 63 From: Roberto Carlos Friend DO PCP: Care Physician,No Primary Status :[facility] Location: [place] [address] History and Physical Date of Admission: 12/30/23 YUE ANGULO, is a 63 F who presents to the office today for initial consult. Pt referred by general surgery. Pt presented to [facility] 10/09/23 with RUQ pain. Was found to have choledocholithiasis and cholecystitis. Underwent ERCP, 10/10/23, laparoscopic cholecystectomy and liver bx 10/11/23. Requesting GI f/u for stent removal and liver disease. Pt was feeling well since the hospital visit until this past Saturday. She had follow-up with Dr. Ventura on 10/25/2023 alternate stitches were removed. At that time she did not had any abdominal pain. Started having pain and spasms in mid abdomen. It gets worse when she drinks water. Has hx of IBS. BM are soft but urgent throughout the day. Was told she had fatty liver in 2016. Has also been told she has Cirrhosis. Has never had a liver bx. Has never used alcohol. ROS Const Constitutional: No fatigue ENT ENT: No difficulty swallowing Gastro GI: Positive for bloating, diarrhea, heartburn and excessive flatus; No abdominal pain, belching, change in bowel habits, change in stool character, coffee ground emesis, constipation, cramping, difficulty swallowing, feeling full early, incontinent of stools, Vomiting blood/hematemesis, Blood in stool, loose stools, Black,tarry stools, nausea/dyspepsia, pain with swallowing, vomiting or other Musc Musculoskeletal: Positive for muscle cramps; No joint pain Skin Skin: No yellowing of the eye or itchy eyes Psych Psychiatric: Positive for anxiety and No depression Endo Endocrine: No fatigue Aller/Imm Allergy/Immunologic: No itchy eyes Julian/Lymp Hematologic/Lymphatic: No easy bleeding or easy bruising Exam Const General: cooperative, no acute distress and well developed Nutritional Appearance: overweight Orientation: alert, awake and oriented x3 Other: BMI 28.4 kg/m? HENWI Head: normocephalic and atraumatic Nose: external nose normal Face and sinus: normal facial exam Mouth: moist mucous membranes Eyes Pupils: PERRL EOM: EOM intact bilaterally Neck Neck: normal visual inspection, no meningeal signs and trachea midline Carotids: no bruits Chest Chest palpation & inspection: normal inspection of the chest Resp Effort & Inspection: normal respiratory effort and symmetric chest movement Auscultation: Bilateral: Clear to Auscultation Cardio Palpation: normal PMI Rhythm: abnormal rhythm Heart Sounds: S1 normal, S2 normal and murmur Other: Irregularly irregular rhythm, chronic A-fib. Systolic murmur over LLSB and cardiac apex GI Auscultation: normal bowel sounds Percussion: normal to percussion Palpation: soft, no hepatosplenomegaly and no guarding Other: Port incisions have healed. Patient was counseled on one of the right upper quadrant port incision which has healed but has no discharge uneven edges but approximated well. No discharge or tenderness. No signs of inflammation. No right upper quadrant tenderness or generalized tenderness. No rebound tenderness. General: bimanual renal exam normal bilaterally, bladder normal to inspection and bladder normal to palpation Bimanual Exam- Vagina & Uterus: bladder normal to palpation Musc Musculoskeletal: No joint tenderness, joint redness, joint warmth or decreased range of motion Thoracic/Lumbar Spine: thor and lumb spine abnorm to inspection Skin General: rashes and/or lesions noted, turgor normal and no erythema Wounds: wound noted Neuro General: patient alert, patient awake, patient oriented x3 and no focal motor deficits Speech: speech normal Motor: muscle tone normal throughout Extrem General: normal exam except as noted Psych Appearance: grossly normal Mood: congruent mood Affect: normal affect Attitude: cooperative Quality Reporting Tobacco Screening ([facility] 138) Smoking Status: Never smoker Assessment and Plan Assessment and Plan (1) NAFLD (nonalcoholic fatty liver disease): Status: Chronic Plan: Patient body weight has decreased and so BMI. Her body weight has increased from 192 pounds in February 2022 to 171 pounds about 21 pound since then, 1 and halfyears ago. Patient had liver biopsy during laparoscopic cholecystectomy and reviewed with the patient. It is reported as Liver parenchymal tissue with focal minimal macrovesicular steatosis and minimal portal chronic inflammation. Regenerative lobular architecture, interface inflammation not seen. Focal minimal chronic inflammation predominantly of lymphocytes near portal areas. Overall patient's lab, imaging and liver biopsy not consistent with cirrhosis therefore ruled out. I told the patient that she does not have cirrhosis. Prior to that patient had abdomen pelvis CT which shows normal liver with GB slightly distended prior to's lap stephie surgery And similar large gallbladder ultrasound shows liver normal echotexture. Patient has elevated liver chemistry suggestive of acute liver injury due to acute on chronic cholecystitis with cholelithiasis. Transaminases were elevatedon October 10, 2023 which improved or improving trend last lab in September 2023 with AST normal, ALT 73 alkaline phosphatase normal. Total bili improved from 1.4-1.2. 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 I discussed the risk factors, pathogenesis, natural history complications including cirrhosis and HCC of metabolic dysfunction associated steatotic liverdisease, (MASLD) and patient affirmed understanding. There is no approved FDA medication for NAFLD but medications used for diabetes mellitus and weight loss mainly to metformin, pioglitazone and GLP-1 agonist have been found to decrease fatty content and improve fibrosis score found in the research literature. The patient has hypertension, chronic heart disease including chronic A-fib and ASD for which she had ASD closure in 2021 and maze procedure on April 30, 2023. Her rn integrated is outside in [facility] Dr. Mcmullen and probably she also has EP. Patient denies drinking alcohol or history of chronic liver disease. Comprehensive first visit lab test ordered to rule out other disease. Liver ultrasound with elastography ordered. Follow-up after 3 months. There is no medication added at this time. (2) S/P laparoscopic cholecystectomy: Status: Chronic Comment: w liver bx Patient is recovering very well following surgery. She is feeling well and is well-healing on exam. I reviewed with her the results of her pathology which demonstrated evidence of chronic cholecystitis and only minimal inflammation with her liver biopsy. I deferred further interpretation of this microscopy to gastroenterology, but submitted that this did not seem consistent with a diagnosis of liver cirrhosis. Given the finding of steatosis I have encouraged her to assume a lower fat diet. Lastly I also showed her the results of her intraoperative cholangiography and reminded her that she will require a follow-up visit with gastroenterology for removal of her temporary common bile duct stent. Plan: Portal incisions are healing well. No wound complication (3) Abnormal LFTs: Status: Deleted (4) Liver disease: Status: Deleted Orders: Orders Anti-Mitochondrial AB 3 Months K76.9 - Liver disease, unspecified, R79.89 - Other specified abnormal findings of blood chemistry Anti-Smooth Muscle ABS 3 Months K76.9 - Liver disease, unspecified, R79.89 - Other specified abnormal findings of blood chemistry CBC W/Diff, Automated 3 Months K76.9 - Liver disease, unspecified, R79.89 - Other specified abnormal findings of blood chemistry Angiotensin Convert Enzyme 3 Months K76.9 - Liver disease, unspecified, R79.89 - Other specified abnormal findings of blood chemistry ANCA 3 Months K76.9 - Liver disease, unspecified, R79.89 - Other specified abnormal findings of blood chemistry Copper, Serum or Plasma 3 Months K76.9 - Liver disease, unspecified, R79.89 - Other specified abnormal findings of blood chemistry Comprehensive Metabolic Profil 3 Months K76.9 - Liver disease, unspecified, R79.89 - Other specified abnormal findings of blood chemistry Ceruloplasmin 3 Months K76.9 - Liver disease, unspecified, R79.89 - Other specified abnormal findings of blood chemistry Ferritin 3 Months K76.9 - Liver disease, unspecified, R79.89 - Other specified abnormal findings of blood chemistry Hemoglobin A1c 3 Months K76.9 - Liver disease, unspecified, R79.89 - Other specified abnormal findings of blood chemistry Haptoglobin 3 Months K76.9 - Liver disease, unspecified, R79.89 - Other specified abnormal findings of blood chemistry Lipid Profile 3 Months K76.9 - Liver disease, unspecified, R79.89 - Other specified abnormal findings of blood chemistry Prothrombin Time w/INR 3 Months K76.9 - Liver disease, unspecified, R79.89 - Other specified abnormal findings of blood chemistry LDH 3 Months K76.9 - Liver disease, unspecified, R79.89 - Other specified abnormal findings of blood chemistry HIV - [facility] 3 Months K76.9 - Liver disease, unspecified, R79.89 - Other specified abnormal findings of blood chemistry Hepatitis Panel Acute 3 Months K76.9 - Liver disease, unspecified, R79.89 - Other specified abnormal findings of blood chemistry CRP 3 Months K76.9 - Liver disease, unspecified, R79.89 - Other specified abnormal findings of blood chemistry ABD Limited w/ Elastography 3 Months K76.9 - Liver disease, unspecified, R79.89 - Other specified abnormal findings of blood chemistry OSMAN w/ Reflex Mult Confirm 3 Months K76.9 - Liver disease, unspecified, R79.89 - Other specified abnormal findings of blood chemistry Vitamin D,25 Hydroxy 3 Months K76.9 - Liver disease, unspecified, R79.89 - Otherspecified abnormal findings of blood chemistry Iron+Iron Binding Capacity 3 Months K76.9 - Liver disease, unspecified, R79.89 - Other specified abnormal findings of blood chemistry I have examined the patient and the H&P has been reviewed. There are no clinicalchanges since date of exam. 12/30/23 1026 <Electronically signed by Roberto Carlos Waite DO> Cosigner Signature (if applicable): CC: No Primary Care Physician; Roberto Carlos Waite DO~ Signed [facility] Work Phone: [phone] 750-344504-08-2024 Procedure [facility] 12-30-2023 Procedure [facility]04-08-2024 [facility] Medical Records Department [address] [place] [address] History Physical Exam 12/30/23 1026 MR#: [id number] Acct: [id number] Name: YUE ANGULO Rep #: [id number] : 1960 63 From: Roberto Carlos Waite DO PCP: Care Physician,No Primary Status:[facility] Location: [place] [address] History and Physical Date of Admission: 12/30/23 YUE ANGULO, is a 63 F who presents to the office today for initial consult. Pt referred by general surgery. Pt presented to [facility] 10/09/23 with RUQ pain. Was found to have choledocholithiasis and cholecystitis. Underwent ERCP, 10/10/23, laparoscopic cholecystectomy and liver bx 10/11/23. Requesting GI f/u for stent removal and liver disease. Pt was feeling well since the hospital visit until this past Saturday. She had follow-up with Dr. Ventura on 10/25/2023 alternate stitches were removed. At that time she did not had any abdominal pain. Started having pain and spasms in mid abdomen. It gets worse when she drinks water. Has hx of IBS. BM are soft but urgent throughout the day. Was told she had fatty liver in 2016. Has also been told she has Cirrhosis. Has never had a liver bx. Has never used alcohol. ROS Const Constitutional: No fatigue ENT ENT: No difficulty swallowing Gastro GI: Positive for bloating, diarrhea, heartburn and excessive flatus; No abdominal pain, belching, change in bowel habits, change in stool character, coffee ground emesis, constipation, cramping, difficulty swallowing, feeling full early, incontinent of stools, Vomiting blood/hematemesis, Blood in stool, loose stools, Black,tarry stools, nausea/dyspepsia, pain with swallowing, vomiting or other Musc Musculoskeletal: Positive for muscle cramps; No joint pain Skin Skin: No yellowing of the eye or itchy eyes Psych Psychiatric: Positive for anxiety and No depression Endo Endocrine: No fatigue Aller/Imm Allergy/Immunologic: No itchy eyes Julian/Lymp Hematologic/Lymphatic: No easy bleeding or easy bruising Exam Const General: cooperative, no acute distress and well developed Nutritional Appearance: overweight Orientation: alert, awake and oriented x3 Other: BMI 28.4 kg/m??? HENMT Head: normocephalic and atraumatic Nose: external nose normal Face and sinus: normal facial exam Mouth: moist mucous membranes Eyes Pupils: PERRL EOM: EOM intact bilaterally Neck Neck: normal visual inspection, no meningeal signs and trachea midline Carotids: no bruits Chest Chest palpation inspection: normal inspection of the chest Resp Effort Inspection: normal respiratory effort and symmetric chest movement Auscultation: Bilateral: Clear to Auscultation Cardio Palpation: normal PMI Rhythm: abnormal rhythm Heart Sounds: S1 normal, S2 normal and murmur Other: Irregularly irregular rhythm, chronic A-fib. Systolic murmur over LLSB and cardiac apex GI Auscultation: normal bowel sounds Percussion: normal to percussion Palpation: soft, no hepatosplenomegaly and no guarding Other: Port incisions have healed. Patient was counseled on one of the right upper quadrant port incision which has healed but has no discharge uneven edges but approximated well. No discharge or tenderness. No signs of inflammation. No right upper quadrant tenderness or generalized tenderness. No rebound tenderness. General: bimanual renal exam normal bilaterally, bladder normal to inspection and bladder normal to palpation Bimanual Exam- Vagina Uterus: bladder normal to palpation Musc Musculoskeletal: No joint tenderness, joint redness, joint warmth or decreased range of motion Thoracic/Lumbar Spine: thor and lumb spine abnorm to inspection Skin General: rashes and/or lesions noted, turgor normal and no erythema Wounds: wound noted Neuro General: patient alert, patient awake, patient oriented x3 and no focal motor deficits Speech: speech normal Motor: muscle tone normal throughout Extrem General: normal exam except as noted Psych Appearance: grossly normal Mood: congruent mood Affect: normal affect Attitude: cooperative Quality Reporting Tobacco Screening ([facility] 138) Smoking Status: Never smoker Assessment and Plan Assessment and Plan (1) NAFLD (nonalcoholic fatty liver disease): Status: Chronic Plan: Patient body weight has decreased and so BMI. Her body weight has increased from 192 pounds in February 2022 to 171 pounds about 21 pound since then, 1 and half years ago. Patient had liver biopsy during laparoscopic cholecystectomy and reviewed with the patient. It is reported as Liver parenchymal tissue with focal minimal macrovesicular steatosis and minimal portal chronic inflammation. Regenerative lobular architecture, interface inflammation not seen. Focal minimal chronic inflammation predominantly of lymphocytes near portal areas. Overall patient's lab, imaging and liver biopsy (more content not included)... [facility]03-14-2024 Evaluation note* Encounter Date Assessment Date Assessment LastModified by Organization Details LastModified Time 12/05/2023 12/05/2023 biliary stent to be removed soon pt [facility] in case needs to [facility] due to [facility] issues in future [facility] follows. mammo scheduled liver biopsy done during stephie showed no signs of cirrhosis [facility] Not available 12/05/2023 15:33:46 [facility] [facility] 02-22-2024 Evaluation note* Encounter Date Assessment Date Assessment LastModified by Organization Details LastModified Time 11/14/2023 11/14/2023 ED imaging/labs/ consults reviewed and discussed in entirety with patient - all questions answered med list reconciled with ED note qrepp Not available 11/14/2023 16:00:30 [employer] 01-20-2024 Discharge summary Author Elvia Terrell [facility] October 12, 2023 9:30am Note Date/Time October 12, 2023 9 :30am [facility] Medical Records Department [address] [place], [place] [address] [address] Discharge Summary 10/12/23 0927 MR#: [id number] Acct: [id number] Name: YUE ANGULO Rep #:[id number] : 1960 63 From: Elvia Terrell MD PCP: LINA ZENDEJAS Status:ADM IN Location: [facility] HC735-4 Providers Date of Admission: 10/09/23 Primary Care Physician: LINA ZENDEJAS Consultations 10/09/23 14:17 Consult: Gastroenterology Routine Consulting Provider: [facility] Reason for Consult: Choledocholithiasis EMERGENT Consult: No Notified: Yes Date Notified: 10/09/23 Time Notified: 13:19 Method of Notification: Text Consult: Hospitalist Routine Consulting Provider: Lauren Brewer Reason for Consult: Medical management EMERGENT Consult: No Notified: Yes Date Notified: 10/09/23 Time Notified: 13:18 Method of Notification: Verbal Reason For Visit: ABDOMINAL PAIN, CHOLELITHIASIS Diagnosis Discharge Diagnosis (1) S/P laparoscopic cholecystectomy: Status: Acute Code(s): Z90.49 - Acquired absence of other specified parts of digestive tract (2) S/P ERCP: Status: Acute Code(s): Z98.890 - Other specified postprocedural states (3) A-fib: Status: Acute Code(s): I48.91 - Unspecified atrial fibrillation Plan Okay for regular diet. Patient currently on 2 L nasal cannula will try to wean?patient did get Lasix 40this morning likely due to increased IV fluids which have been stopped--appreciate medicine's assistance Continue pain control Will wait 48 hours from surgery to restart Xarelto?Saturday neelam Terrell M.D. Pager: [phone] [facility] [address] [place] [address], [facility], [address] [place] [address] Office: [phone] Medications at Discharge Home Medications rivaroxaban 20 mg tablet (Xarelto) 20 mg PO QPM BLOOD THINNER 03/14/22 acetaminophen 325 mg tablet 325 mg PO Q6H PRN PAIN 10/09/23 bumetanide 1 mg tablet 1 mg PO DAILY PRN EDEMA 10/09/23 buspirone 5 mg tablet 5 mg PO TID PRN ANXIETY 10/09/23 cholecalciferol (vitamin D3) 25 mcg (1,000 unit) tablet (Vitamin D3) 25 mcg PO DAILY SUPPLEMENT 10/09/23 colchicine 0.6 mg tablet 0.6 mg PO Q12H GOUT 10/09/23 cyanocobalamin (vitamin B-12) 1,000 mcg capsule 1,000 mcg PO DAILY SUPPLEMENT 10/09/23 dofetilide 500 mcg capsule (Tikosyn) 500 mcg PO BID AFIB 10/09/23 magnesium 250 mg tablet 250 mg PO BID SUPPLEMENT 10/09/23 metoprolol succinate 25 mg tablet,extended release 24 hr 12.5 mg PO QPM BLOOD PRESSURE 10/09/23 metoprolol succinate 25 mg tablet,extended release 24 hr 25 mg PO DAILY BLOOD PRESSURE 10/09/23 pantoprazole 40 mg tablet,delayed release 40 mg PO DAILY ACID REFLUX 10/09/23 potassium chloride 20 mEq tablet,extended release (K-Tab) 20 meq PO DAILY PRN SUPPLEMENT 10/09/23 tadalafil 20 mg tablet 20 mg PO BID LUNGS 10/09/23 tramadol 50 mg tablet 50 mg PO Q6H PRN pain #14 tabs 10/12/23 Hospital Course Operations cholecystecomy and ERCP Summary of Care Provided Minutes Spent on Discharge: 15 Hospital Course: 61-year-old female presents to the ER due to epigastric right upper quadrant pain. Patient was found to have choledocholithiasis and cholecystitis. Patientunderwent ERCP with stent placement and the following day underwent a laparoscopic cholecystectomy. Patient's Xarelto was held when patient Was admitted. Patient did get Lasix 40 mg postoperatively for lap stephie and IV fluids were stopped as patient was on 3 L nasal cannula she was able to be weaned down to 2 L by the morning. Patient is able to be weaned back to room air and tolerating diet will DC home. Weight / BMI Weight Weight: 172 lb 6.424 oz Body Mass Index (BMI) 28.7 ABG / Lab / Microbiology Data 10/12/23 04:00 10/12/23 04:00 Laboratory: Laboratory Results - last 24 hr 10/12/23 04:00: WBC 9.2, RBC 3.67 L, Hgb 11.5 L, Hct 32.7 L, MCV 89.1, MCH 31.3,MCHC 35.2 D, RDW Std Deviation 43.6, RDW Coeff of Jenn 13.7, Plt Count 129 L, MPV 11.3, Immature Gran % (Auto) 2.400 H, Neut % (Auto) 79.8 H, Lymph % (Auto) 8.8 L, [place] % (Auto) 5.3, Eos % (Auto) 3.3, Baso % (Auto) 0.4, Absolute Neuts (auto) 7.4, Absolute Lymphs (auto) 0.81 L, Nucleated RBC % 0, Sodium 144, Potassium 3.5, Chloride 112 H, Carbon Dioxide 25.0, Anion Gap 7, BUN 10, Creatinine 0.74, Estim Creat Clear Calc 81.48, Est GFR (MDRD) Af Amer 102, Est GFR (MDRD) Non-Af 85, BUN/Creatinine Ratio 13.5, Glucose 97, Calcium 8.3 L, Total Bilirubin 1.20 H, AST 37, ALT 73 H, Alkaline Phosphatase 108, B-Natriuretic Peptide 564.0 H, Total Protein 5.8 L, Albumin 2.9 L, Globulin 2.9, Albumin/Globulin Ratio 1.0 Radiography Diagnostic Testing: Radiology Impression Cholangiogram 10/11/23 13:45 IMPRESSION: As above. Electronically Signed: Dino Ramos MD at 16:33 EST , Chest X-Ray 10/12/23 03:50 IMPRESSION: 1. Improved and normal heart size and new left atrial appendage clip compared to March 14, 2022. 2. Mild streaky bibasilar linear opacities, new from prior exam. Considerations include atelectasis, scarring, early infiltrate. Electronically Signed: Darcy Gong MD at 6:52 EST , D/C Instructions Discharge Diet: No restrictions May shower in (days): 1 Ice area for (Minutes): 20 Call your doctor if your incision/area has: Continuous Slow Oozing, Increased Pain/ Swelling, Increased Redness, Foul Smelling Discharge and Swelling at the incision site Call your doctor if you observe: Fever of 101 or Higher Cleanse incision/area with: Soap & Water Additional Dressing/Incision Instructions: Steri-Strips will fall off in 7 to 10days, if they do not fall off okay to remove after 10 days. Please Follow Up With: Jamar Ventura MD When: Call the office for a follow-up appointment 2 weeks; after 5 PM and on call [phone] with any concerns. Meaningful Use Info Meaningful Use Diagnoses (Choose all that apply): None applicable Discharge Plan Admission Admit Date/Time: 10/09/23 13:08 Primary Reason for Your Visit: choledocholithiasis Attending Provider: Jamar Ventura Primary Care Provider: LINA ZENDEJAS Consulting Providers: Lauren Brewer Discharge Orders/Prescriptions Prescriptions: New tramadol 50 mg tablet 50 mg PO Q6H PRN (Reason: pain) Qty: 14 0RF Continued cyanocobalamin (vitamin B-12) 1,000 mcg capsule 1,000 mcg PO DAILY colchicine 0.6 mg tablet 0.6 mg PO Q12H dofetilide [Tikosyn] 500 mcg capsule 500 mcg PO BID tadalafil 20 mg tablet 20 mg PO BID pantoprazole 40 mg tablet,delayed release (DR/EC) 40 mg PO DAILY metoprolol succinate 25 mg tablet extended release 24 hr 25 mg PO DAILY metoprolol succinate 25 mg tablet extended release 24 hr 12.5 mg PO QPM magnesium 250 mg tablet 250 mg PO BID cholecalciferol (vitamin D3) [Vitamin D3] 25 mcg (1,000 unit) tablet 25 mcg PO DAILY bumetanide 1 mg tablet 1 mg PO DAILY PRN (Reason: EDEMA ) potassium chloride [K-Tab] 20 mEq tablet extended release 20 meq PO DAILY PRN (Reason: SUPPLEMENT ) Patient Comments: PT STATES THEY TAKE ONE POTASSIUM CHLORIDE 20MEQ ONCE DAILY ONLY IF THEY TAKEA DOSE OF BUMETANIDE ( OF 10-09-22) Rx Instructions: TAKE ONE TABLET BY MOUTH ONCE DAILY ONLY IF BUMETANIDE IS TAKEN buspirone 5 mg tablet 5 mg PO TID PRN (Reason: ANXIETY ) acetaminophen 325 mg tablet 325 mg PO Q6H PRN (Reason: PAIN ) Held Xarelto 20 mg Tablet 20 mg PO QPM Hold Instructions: restart Saturday 10/14- PM Rx Instructions: TAKE ONE TABLET BY MOUTH ONCE DAILY. MUST ADMINISTER WITH MEAL. Referrals / Follow Up: LINA ZENDEJAS [Other] LINA ZENDEJAS [Other] Disposition Disposition (needs filled in before D/C Order can be placed): Home, Self Care 10/12/23929 <Electronically signed by Elvia Terrell MD> Cosigner Signature (if applicable): CC: Dr. Elvia Terrell MD; LINA ZENDEJAS~ Signed [facility] Work Phone: 1(706) 855-623001-20-2024 Discharge summary Author Elvia Terrell [facility] October 12, 2023 9:27am Note Date/Time October 12, 2023 9 :24am [facility] Medical Records Department [address] [place] [address] Instructions for Home/Discharge Instructions 10/12/23922 MR#: [id number] Acct: [id number] Name: YUE ANGULO Rep #:[id number] : 1960 63 From: Elvia Terrell MD PCP: LINA ZENDEJAS Status:ADM IN Discharge Instructions Diet Discharge Diet: No restrictions Activity Discharge Activity: May Not Drive (while taking narcotic pain medications.) May shower in (days): 1 Ice area for (Minutes): 20 Lifting Restrictions: no lifting >20 lbs x 2 wks, no strenuous exercise for 4 wks Dressing / Incision Call your doctor if your incision/area has: Continuous Slow Oozing, Increased Pain/ Swelling, Increased Redness, Foul Smelling Discharge and Swelling at the incision site Call your doctor if you observe: Fever of 101 or Higher Remove Dressing in: 2 days Cleanse incision/area with: Soap & Water Additional Dressing/Incision Instructions:: Steri-Strips will fall off in 7 to 10 days, if they do not fall off okay to remove after 10 days. Follow Up Care Please Follow Up With: Jamar Ventura MD When: Call the office for a follow-up appointment 2 weeks; after 5 PM and on call [phone] with any concerns. Test Results: Test results from this visit will be discussed in further detail at your follow- up appointment, if applicable. Discharge Plan Admission Admit Date/Time: 10/09/23 13:08 Primary Reason for Your Visit: choledocholithiasis Attending Provider: Jamar Ventura Primary Care Provider: LINA ZENDEJAS Consulting Providers: Lauren Brewer Discharge Orders/Prescriptions Prescriptions: New tramadol 50 mg tablet 50 mg PO Q6H PRN (Reason: pain) Qty: 14 0RF Continued cyanocobalamin (vitamin B-12) 1,000 mcg capsule 1,000 mcg PO DAILY colchicine 0.6 mg tablet 0.6 mg PO Q12H dofetilide [Tikosyn] 500 mcg capsule 500 mcg PO BID tadalafil 20 mg tablet 20 mg PO BID pantoprazole 40 mg tablet,delayed release (DR/EC) 40 mg PO DAILY metoprolol succinate 25 mg tablet extended release 24 hr 25 mg PO DAILY metoprolol succinate 25 mg tablet extended release 24 hr 12.5 mg PO QPM magnesium 250 mg tablet 250 mg PO BID cholecalciferol (vitamin D3) [Vitamin D3] 25 mcg (1,000 unit) tablet 25 mcg PO DAILY bumetanide 1 mg tablet 1 mg PO DAILY PRN (Reason: EDEMA ) potassium chloride [K-Tab] 20 mEq tablet extended release 20 meq PO DAILY PRN (Reason: SUPPLEMENT ) Patient Comments: PT STATES THEY TAKE ONE POTASSIUM CHLORIDE 20MEQ ONCE DAILY ONLY IF THEY TAKEA DOSE OF BUMETANIDE ( OF 10-09-22) Rx Instructions: TAKE ONE TABLET BY MOUTH ONCE DAILY ONLY IF BUMETANIDE IS TAKEN buspirone 5 mg tablet 5 mg PO TID PRN (Reason: ANXIETY ) acetaminophen 325 mg tablet 325 mg PO Q6H PRN (Reason: PAIN ) Held Xarelto 20 mg Tablet 20 mg PO QPM Hold Instructions: restart Saturday 10/14- PM Rx Instructions: TAKE ONE TABLET BY MOUTH ONCE DAILY. MUST ADMINISTER WITH MEAL. Referrals / Follow Up: LINA ZENDEJAS [Other] LINA ZENDEJAS [Other] Disposition Disposition (needs filled in before D/C Order can be placed): Home, Self Care 10/12/23926<Electronically signed by Elvia Terrell MD>Elvia Terrell MD CC: Dr. Lauren Brewer MD; LINA ZENDEJAS ~ Signed [facility] Work Phone: 1(664) 304-423301-20-2024 Progress note [facility] October 12, 2023 9:12am Note Date/Time October 12, 2023 8 :07am [facility] Medical Records Department [address] [place] [address] Progress Note - Surgery 10/12/23 08 MR#: [id number] Acct: [id number] Name: YUE ANGULO Rep #:[id number] : 1960 63 From: Elvia Terrell MD PCP: LINA ZENDEJAS Status:ADM IN Location: [address] Subjective Subjective Patient tolerating clears, pain controlled, 2 L nasal cannula Objective Data Objective Data Vital Signs: Vital Signs Temp Pulse Resp BP Pulse Ox O2 Del Method O2 Flow Rate 97.9 F 67 16 137/59 H 97 Nasal Cannula 3 10/12/23 06:38 10/12/23 06:38 10/12/23 06:38 10/12/23 06:38 10/12/23 06:38 10/12/23 06:38 10/12/23 06:38 Oxygen Flow Rate (L/min) 3 Oxygen Delivery Method Nasal Cannula Weight: 172 lb 6.424 oz Body Mass Index (BMI) 28.7 Intake & Output: Intake and Output for Last 24 Hours 10/10/23 10/11/23 10/12/23 23:59 23:59 23:59 Intake Total 4376.34 / 4376.34 2149 Output Total 400 / 400 Balance 4376.34 / 4376.34 2149 -400 / -400 Lab / Micro Data 10/12/23 04:00 10/12/23 04:00 Labs: Laboratory Results - last 24 hr 10/12/23 04:00: WBC 9.2, RBC 3.67 L, Hgb 11.5 L, Hct 32.7 L, MCV 89.1, MCH 31.3,MCHC 35.2 D, RDW Std Deviation 43.6, RDW Coeff of Jenn 13.7, Plt Count 129 L, MPV 11.3, Immature Gran % (Auto) 2.400 H, Neut % (Auto) 79.8 H, Lymph % (Auto) 8.8 L, [place] % (Auto) 5.3, Eos % (Auto) 3.3, Baso % (Auto) 0.4, Absolute Neuts (auto) 7.4, Absolute Lymphs (auto) 0.81 L, Nucleated RBC % 0, Sodium 144, Potassium 3.5, Chloride 112 H, Carbon Dioxide 25.0, Anion Gap 7, BUN 10, Creatinine 0.74, Estim Creat Clear Calc 81.48, Est GFR (MDRD) Af Amer 102, Est GFR (MDRD) Non-Af 85, BUN/Creatinine Ratio 13.5, Glucose 97, Calcium 8.3 L, Total Bilirubin 1.20 H, AST 37, ALT 73 H, Alkaline Phosphatase 108, B-Natriuretic Peptide 564.0 H, Total Protein 5.8 L, Albumin 2.9 L, Globulin 2.9, Albumin/Globulin Ratio 1.0 Radiography Diagnostic Testing: Radiology Impression Cholangiogram 10/11/23 13:45 IMPRESSION: As above. Electronically Signed: Dino Ramos MD at 16:33 EST , Chest X-Ray 10/12/23 03:50 IMPRESSION: 1. Improved and normal heart size and new left atrial appendage clip compared to March 14, 2022. 2. Mild streaky bibasilar linear opacities, new from prior exam. Considerations include atelectasis, scarring, early infiltrate. Electronically Signed: Darcy Gong MD at 6:52 EST , Physical Exam Resp normal respiratory effort Resp Narrative: On 2 L nasal cannula Cardio regular rate GI GI Narrative: Abdomen: Soft, nondistended, tender near incision's dressed clean dry and intact, no peritoneal signs Assessment & Plan Assessment/Plan (1) S/P laparoscopic cholecystectomy: (2) S/P ERCP: (3) A-fib: PLAN: Plan Okay for regular diet. Patient currently on 2 L nasal cannula will try to wean?patient did get Lasix 40this morning likely due to increased IV fluids which have been stopped--appreciate medicine's assistance Continue pain control Will wait 48 hours from surgery to restart Xarelto?Saturday neelam Terrell M.D. Pager: [phone] [facility] [address] [place] [address], [facility], [address] [place] [address] Office: [phone] 10/12/23911 <Electronically signed by Elvia Terrell MD> Cosigner Signature (if applicable): CC: ~ Signed [facility] Work Phone: 1(600) 881-174001-20-2024 Progress note Author Lauren Brewer [facility] October 12, 2023 11:05am Note Date/Time October 12, 2023 7 :00am [facility] Medical Records Department [address] [place] [address] Progress Note - Hospitalist 10/12/23 0657 MR#: [id number] Acct: [id number] Name: YUE ANGULO Rep #:[id number] : 1960 63 From: Lauren Brewer MD PCP: LINA ZENDEJAS Status:ADM IN Location: [place] [address]-1 Reason for Visit Reason for Visit: Diagnoses Sleep apnea, unspecified (10/09/23) Pulmonary hypertension, unspecified (10/09/23) Unspecified atrial fibrillation (10/09/23) Unspecified cirrhosis of liver (10/09/23) Calculus of bile duct without cholangitis or cholecystitis without obstruction (10/09/23) Subjective Subjective Patient received a dose of Lasix this morning due to concern she was somewhat overloaded, stop oxygen and doing well at time of my exam, tolerating food, painimproving Objective Data Objective Data Vital Signs: Vital Signs Temp Pulse Resp BP Pulse Ox O2 Del Method O2 Flow Rate 97.9 F 67 16 137/59 H 97 Nasal Cannula 3 10/12/23 06:38 10/12/23 06:38 10/12/23 06:38 10/12/23 06:38 10/12/23 06:38 10/12/23 06:38 10/12/23 06:38 Oxygen Flow Rate (L/min) 3 Oxygen Delivery Method Nasal Cannula Weight: 78.2 kg Body Mass Index (BMI) 28.7 Intake & Output: Intake and Output for Last 24 Hours 10/10/23 10/11/23 10/12/23 23:59 23:59 23:59 Intake Total 4376.34 / 4376.34 2149 / 0 Output Total 400 / 400 Balance 4376.34 / 4376.34 2149 -400 / -400 Lab / Micro Data 10/12/23 04:00 10/12/23 04:00 Labs: Laboratory Results - last 24 hr 10/11/23 05:05: Phosphorus 3.2 10/12/23 04:00: WBC 9.2, RBC 3.67 L, Hgb 11.5 L, Hct 32.7 L, MCV 89.1, MCH 31.3,MCHC 35.2 D, RDW Std Deviation 43.6, RDW Coeff of Jenn 13.7, Plt Count 129 L, MPV 11.3, Immature Gran % (Auto) 2.400 H, Neut % (Auto) 79.8 H, Lymph % (Auto) 8.8 L, [place] % (Auto) 5.3, Eos % (Auto) 3.3, Baso % (Auto) 0.4, Absolute Neuts (auto) 7.4, Absolute Lymphs (auto) 0.81 L, Nucleated RBC % 0, Sodium 144, Potassium 3.5, Chloride 112 H, Carbon Dioxide 25.0, Anion Gap 7, BUN 10, Creatinine 0.74, Estim Creat Clear Calc 81.48, Est GFR (MDRD) Af Amer 102, Est GFR (MDRD) Non-Af 85, BUN/Creatinine Ratio 13.5, Glucose 97, Calcium 8.3 L, Total Bilirubin 1.20 H, AST 37, ALT 73 H, Alkaline Phosphatase 108, B-Natriuretic Peptide 564.0 H, Total Protein 5.8 L, Albumin 2.9 L, Globulin 2.9, Albumin/Globulin Ratio 1.0 Radiography Diagnostic Testing: Radiology Impression Cholangiogram 10/11/23 13:45 IMPRESSION: As above. Electronically Signed: Dino Ramos MD at 16:33 EST , Chest X-Ray 10/12/23 03:50 IMPRESSION: 1. Improved and normal heart size and new left atrial appendage clip compared to March 14, 2022. 2. Mild streaky bibasilar linear opacities, new from prior exam. Considerations include atelectasis, scarring, early infiltrate. Electronically Signed: Darcy Gong MD at 6:52 EST , Physical Exam Narrative General: Alert, oriented, no apparent distress HEENT: Atraumatic, normocephalic Eyes: Anicteric, normal conjunctiva, extraocular movements grossly intact Neck: Supple Respiratory: Clear to auscultation bilaterally, normal respiratory effort Cardiovascular: Regular rate and rhythm GI: Soft, tenderness improving, guarding, rigidity Extremities: No edema Musculoskeletal: Moving all extremities Neuro: No overt focal neurological deficits Skin: No rashes appreciated Psych: Cooperative Assessment & Plan Assessment/Plan (1) Choledocholithiasis: (2) A-fib: (3) Sleep apnea: (4) Pulmonary HTN: (5) Cirrhosis: PLAN: Plan #Choledocholithiasis with acute cholecystitis -Patient admitted by surgery service, being evaluated for cholecystectomy -GI also consulted for ERCP -Patient started on fluids and Zosyn -Holding Xarelto -10/10: Patient's status post ERCP with entire main bile duct dilated and choledocholithiasis found, patient with biliary sphincterotomy and balloon extraction, temporary stent placed. Patient for cholecystectomy tomorrow. Her NSQIP risk calculation is above average with a risk of serious complications 2.6% and any complication 3.0%, this risk is still relatively low overall. -10/11: Patient with cholecystectomy today -10/12: Status postcholecystectomy, doing well this a.m., plan is for discharge home # History of A-fib/pulmonary hypertension/ASD fixed July 2022/maze procedurein April with subsequent pericarditis on colchicine and aspirin/?CHF -Patient with extensive history, follows at [facility] -On Tikosyn for her A-fib, EKG with QTc of 460 and normal sinus rhythm and low voltage -Given patient is on Tikosyn will repeat EKG in the a.m. as well and will obtainmag -Hold Xarelto given pending surgery -Will check echo given her cardiac history, pulmonary hypertension, unclear CHF history -Would continue tadalafil if possible, can consider pulmonology consult if any problems/concerns however patient presently stable from a respiratory standpoint -Will need to monitor daily weights and I's and O's to monitor fluid status, patient takes bumetanide as needed at home, holding this as she is receiving IV fluids -Continue her colchicine for pericarditis -10/10: Echocardiogram with EF 55 to 60%, mild mitral regurg, mild tricuspid regurgitation -10/11: Continue to hold Xarelto, continue other medications -10/12: Change metoprolol from IV back to p.o., additionally patient has been receiving IV fluids and this a.m. 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 -Reportedly follows with a physician through [facility] for this -Will check PT/INR -10/10: Can continue to follow-up with her outpatient physician #GERD -Continue PPI #DVT ppx: SCDs Lauren Brewer MD Time spent in the patient's overall evaluation,decision-making process, review of diagnostic data, adjustment of management, discussion with other providers, nursing nursing and ancillary staff involved in patient's care documentation, 35minutes Charges/Coding Visit Charges Inpatient E&M: 76139 Subs Hosp L2 10/12/23 1105 <Electronically signed by Lauren Brewer MD> Cosigner Signature (if applicable): CC: ~ Signed [facility] Work Phone: 1(470) 524-173901-19-2024 Procedure [facility] 10-11-2023 Progress note Author Lauren Brewer [facility] October 11, 2023 8:59am Note Date/Time October 11, 2023 7 :48am [facility] Medical Records Department [address] [place] [address] Progress Note - Hospitalist 10/11/23 0747 MR#: [id number] Acct: [id number] Name: YUE ANGULO Rep #:[id number] : 1960 63 From: Lauren Brewer MD PCP: LINA ZENDEJAS Status:ADM IN [facility] Reason for Visit Reason for Visit: Diagnoses Sleep apnea, unspecified (10/09/23) Pulmonary hypertension, unspecified (10/09/23) Unspecified atrial fibrillation (10/09/23) Unspecified cirrhosis of liver (10/09/23) Calculus of bile duct without cholangitis or cholecystitis without obstruction (10/09/23) Subjective Subjective Patient continued to have intermittent pain overnight especially when she got upto go to the bathroom that would improve with pain medication, not having the pain at present but anxious the pain might not go away even after surgery, overall feeling better however Objective Data Objective Data Vital Signs: Vital Signs Temp Pulse Resp BP Pulse Ox O2 Del Method O2 Flow Rate 98 F 55 L 16 149/79 H 95 CPAP 2 10/11/23 05:25 10/11/23 05:25 10/11/23 05:25 10/11/23 05:25 10/11/23 05:25 10/11/23 05:25 10/09/23 20:25 Oxygen Flow Rate (L/min) 2 Oxygen Delivery Method CPAP Weight: 78.2 kg Body Mass Index (BMI) 28.7 Intake & Output: Intake and Output for Last 24 Hours 10/09/23 10/10/23 10/11/23 23:59 23:59 23:59 Intake Total 1220 / 1220 4376.34 / 4376.34 1050 / 1050 Balance 1220 / 1220 4376.34 / 4376.34 1050 / 1050 Lab / Micro Data 10/11/23 05:05 10/11/23 05:05 Labs: Laboratory Results - last 24 hr 10/11/23 05:05: WBC 7.2, RBC 3.59 L, Hgb 10.7 L, Hct 32.1 L, MCV 89.4, MCH 29.8,MCHC 33.3, RDW Std Deviation 45.2 H, RDW Coeff of Jenn 13.9, Plt Count 135 L, MPV10.6, Immature Gran % (Auto) 1.000 H, Neut % (Auto) 77.5 H, Lymph % (Auto) 15.5 L, [place] % (Auto) 5.6, Eos % (Auto) 0.1, Baso % (Auto) 0.3, Absolute Neuts (auto)5.6, Absolute Lymphs (auto) 1.11, Nucleated RBC % 0, PT 15.3 H, INR 1.2, APTT 29.7, Sodium 145, Potassium 3.6, Chloride 116 H, Carbon Dioxide 25.0, Anion Gap 4 L, BUN 11, Creatinine 0.71, Estim Creat Clear Calc 84.92, Est GFR (MDRD) Af Amer 107, Est GFR (MDRD) Non-Af 88, BUN/Creatinine Ratio 15.4, Glucose 105, Calcium 8.1 L, Phosphorus 3.2, Magnesium 1.8, Total Bilirubin 0.90, AST 48 H, ALT 92 H, Alkaline Phosphatase 112, Total Protein 5.6 L, Albumin 2.8 L, Globulin2.8, Albumin/Globulin Ratio 1.0 Radiography Diagnostic Testing: Radiology Impression Echocardiogram 10/09/23 18:49 Interpretation Summary The estimated ejection fraction is 55-60 %. Thickness of the anterior mitral valve leaflet Color flow and Doppler showed mild mitral regurgitation Mild tricuspid gravitation No prior study to compare Ordering Physician: Lauren Brewer Performed By: Analy Mejia, MEGHAN Endo Retro Cholangiopancreatogram 10/10/23 09:15 IMPRESSION: ERCP as described above. Electronically Signed: Babar Burk MD at 11:12 EST , Physical Exam Narrative General: Alert, oriented, no apparent distress HEENT: Atraumatic, normocephalic Eyes: Anicteric, normal conjunctiva, extraocular movements grossly intact Neck: Supple Respiratory: Clear to auscultation bilaterally, normal respiratory effort Cardiovascular: Regular rate and rhythm GI: Soft, mild tender to palpation epigastric region without rebound, guarding, rigidity Extremities: No edema Musculoskeletal: Moving all extremities Neuro: No overt focal neurological deficits Skin: No rashes appreciated Psych: Cooperative Assessment & Plan Assessment/Plan (1) Choledocholithiasis: (2) A-fib: (3) Sleep apnea: (4) Pulmonary HTN: (5) Cirrhosis: PLAN: Plan #Choledocholithiasis -Patient admitted by surgery service, being evaluated for cholecystectomy -GI also consulted for ERCP -Patient started on fluids and Zosyn -Holding Xarelto -10/10: Patient's status post ERCP with entire main bile duct dilated and choledocholithiasis found, patient with biliary sphincterotomy and balloon extraction, temporary stent placed. Patient for cholecystectomy tomorrow. Her NSQIP risk calculation is above average with a risk of serious complications 2.6% and any complication 3.0%, this risk is still relatively low overall. -10/11: Patient with cholecystectomy today # History of A-fib/pulmonary hypertension/ASD fixed July 2022/maze procedurein April with subsequent pericarditis on colchicine and aspirin/?CHF -Patient with extensive history, follows at [place] -On Tikosyn for her A-fib, EKG with QTc of 460 and normal sinus rhythm and low voltage -Given patient is on Tikosyn will repeat EKG in the a.m. as well and will obtainmag -Hold Xarelto given pending surgery -Will check echo given her cardiac history, pulmonary hypertension, unclear CHF history -Would continue tadalafil if possible, can consider pulmonology consult if any problems/concerns however patient presently stable from a respiratory standpoint -Will need to monitor daily weights and I's and O's to monitor fluid status, patient takes bumetanide as needed at home, holding this as she is receiving IV fluids -Continue her colchicine for pericarditis -10/10: Echocardiogram with EF 55 to 60%, mild mitral regurg, mild tricuspid regurgitation -10/11: Continue to hold Xarelto, continue other medications # FARSHAD -Continue PAP therapy # 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 -Reportedly follows with a physician through [place] for this -Will check PT/INR -10/10: Can continue to follow-up with her outpatient physician #GERD -Continue PPI #DVT ppx: SCDs Lauren Brewer MD Time spent in the patient's overall evaluation,decision-making process, review of diagnostic data, adjustment of management, discussion with other providers, nursing nursing and ancillary staff involved in patient's care documentation, 35minutes Capacity Legal [employer] Supervisor Reflex Medical hold order details:: IF a medical hold is selected below, a suggested order for a MEDICAL HOLD will reflex upon signing the document. Next of kin: [place] law dictates a PRIORITY LIST for identifying legal decision-maker/legal next of kin in the following order (LNOK): 1st: The patient?s legal guardian, if any 2nd: The patient's spouse (if status is questionable, consult Risk Management) 3rd: The patient?s adult child(alejandro) (majority, if multiple children) 4th: The patient?s parents 5th: The patient?s adult siblings (majority, if multiple children siblings) Charges/Coding Visit Charges Inpatient E&M: 85351 Subs Hosp L2 10/11/23 0859 <Electronically signed by Lauren Brewer MD> Cosigner Signature (if applicable): CC: ~ Signed [facility] Work Phone: 1(125) 579-886701-18-2024 Progress note Author Lauren Brewer [facility] October 10, 2023 6:38pm Note Date/Time October 10, 2023 2 :11pm [facility] Medical Records Department [address] [place] [address] Progress Note - Hospitalist 10/10/23 1410 MR#: [id number] Acct: [id number] Name: YUE ANGULO Rep #:[id number] : 1960 63 From: Lauren Brewer MD PCP: LINA ZENDEJAS Status:ADM IN Location: MS3 [id number] Reason for Visit Reason for Visit: Diagnoses Sleep apnea, unspecified (10/09/23) Pulmonary hypertension, unspecified (10/09/23) Unspecified atrial fibrillation (10/09/23) Unspecified cirrhosis of liver (10/09/23) Calculus of bile duct without cholangitis or cholecystitis without obstruction (10/09/23) Subjective Subjective Patient evaluated after ERCP, was having some epigastric pain after getting up to go to the bathroom and was just laying back down in bed. No radiation of pain at this time, not vomiting, no other changes in bowel movements. Objective Data Objective Data Vital Signs: Vital Signs Temp Pulse Resp BP Pulse Ox O2 Del Method O2 Flow Rate 98.4 F 75 18 130/55 H 97 Room Air 2 10/10/23 13:47 10/10/23 13:47 10/10/23 13:47 10/10/23 13:47 10/10/23 13:47 10/10/23 13:47 10/09/23 20:25 Oxygen Flow Rate (L/min) 2 Oxygen Delivery Method Room Air Weight: 78.2 kg Body Mass Index (BMI) 28.7 Intake & Output: Intake and Output for Last 24 Hours 10/08/23 10/09/23 10/10/23 23:59 23:59 23:59 Intake Total 1220 / 1220 1789.67 / 1789.67 Balance 1220 / 1220 1789.67 / 1789.67 Lab / Micro Data 10/10/23 04:08 10/10/23 04:08 Labs: Laboratory Results - last 24 hr 10/10/23 04:08: WBC 7.2, RBC 3.86 L, Hgb 11.7 L, Hct 34.1 L, MCV 88.3, MCH 30.3,MCHC 34.3, RDW Std Deviation 43.4, RDW Coeff of Jenn 13.7, Plt Count 146 L, MPV 10.0, Immature Gran % (Auto) 0.700, Neut % (Auto) 80.1 H, Lymph % (Auto) 12.3 L,Lorain % (Auto) 6.6, Eos % (Auto) 0.0, Baso % (Auto) 0.3, Absolute Neuts (auto) 5.7, Absolute Lymphs (auto) 0.88, Nucleated RBC % 0, PT 16.2 H, INR 1.3, APTT 31.1, Sodium 144, Potassium 3.5, Chloride 114 H, Carbon Dioxide 26.0, Anion Gap 4 L, BUN 12, Creatinine 0.75, Estim Creat Clear Calc 80.39, Est GFR (MDRD) Af Amer 101, Est GFR (MDRD) Non-Af 83, BUN/Creatinine Ratio 16.0, Glucose 106, Calcium 8.5, Phosphorus 4.2, Magnesium 2.0, Total Bilirubin 1.40 H, AST 121 H, ALT 139 H, Alkaline Phosphatase 139 H, Total Protein 6.1 L, Albumin 3.2, Globulin 2.9, Albumin/Globulin Ratio 1.1 Radiography Diagnostic Testing: Radiology Impression Endo Retro Cholangiopancreatogram 10/10/23 09:15 IMPRESSION: ERCP as described above. Electronically Signed: Babar Burk MD at 11:12 EST , Physical Exam Narrative General: Alert, oriented, patient presently having abdominal pain HEENT: Atraumatic, normocephalic Eyes: Anicteric, normal conjunctiva, extraocular movements grossly intact Neck: Supple Respiratory: Clear to auscultation bilaterally, normal respiratory effort Cardiovascular: Regular rate and rhythm GI: Soft, nondistended, some pain in epigastric region Extremities: No edema Musculoskeletal: Moving all extremities Neuro: No overt focal neurological deficits Skin: No rashes appreciated Psych: Cooperative Assessment & Plan Assessment/Plan (1) Choledocholithiasis: (2) A-fib: (3) Sleep apnea: (4) Pulmonary HTN: (5) Cirrhosis: PLAN: Plan #Choledocholithiasis -Patient admitted by surgery service, being evaluated for cholecystectomy -GI also consulted for ERCP -Patient started on fluids and Zosyn -Holding Xarelto -10/10: Patient's status post ERCP with entire main bile duct dilated and choledocholithiasis found, patient with biliary sphincterotomy and balloon extraction, temporary stent placed. Patient for cholecystectomy tomorrow. Her NSQIP risk calculation is above average with a risk of serious complications 2.6% and any complication 3.0%, this risk is still relatively low overall. # History of A-fib/pulmonary hypertension/ASD fixed July 2022/maze procedurein April with subsequent pericarditis on colchicine and aspirin/?CHF -Patient with extensive history, follows at [place] -On Tikosyn for her A-fib, EKG with QTc of 460 and normal sinus rhythm and low voltage -Given patient is on Tikosyn will repeat EKG in the a.m. as well and will obtainmag -Hold Xarelto given pending surgery -Will check echo given her cardiac history, pulmonary hypertension, unclear CHF history -Would continue tadalafil if possible, can consider pulmonology consult if any problems/concerns however patient presently stable from a respiratory standpoint -Will need to monitor daily weights and I's and O's to monitor fluid status, patient takes bumetanide as needed at home, holding this as she is receiving IV fluids -Continue her colchicine for pericarditis -10/10: Echocardiogram with EF 55 to 60%, mild mitral regurg, mild tricuspid gravitation # FARSHAD -Continue PAP therapy # 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 -Reportedly follows with a physician through [place] for this -Will check PT/INR -10/10: Can continue to follow-up with her outpatient physician #GERD -Continue PPI #DVT ppx: SCDs Lauren Brewer MD Time spent in the patient's overall evaluation,decision-making process, review of diagnostic data, adjustment of management, discussion with other providers, nursing nursing and ancillary staff involved in patient's care documentation, 35minutes Capacity Legal [employer] Supervisor Reflex Medical hold order details:: IF a medical hold is selected below, a suggested order for a MEDICAL HOLD will reflex upon signing the document. Next of kin: [place] law dictates a PRIORITY LIST for identifying legal decision-maker/legal next of kin in the following order (LNOK): 1st: The patient?s legal guardian, if any 2nd: The patient's spouse (if status is questionable, consult Risk Management) 3rd: The patient?s adult child(alejandro) (majority, if multiple children) 4th: The patient?s parents 5th: The patient?s adult siblings (majority, if multiple children siblings) Charges/Coding Visit Charges Inpatient E&M: 63772 Subs Hosp L2 10/10/23 1838 <Electronically signed by Lauren Brewer MD> Cosigner Signature (if applicable): CC: ~ Signed [facility] Work Phone: [phone]) 566-795001-18-2024 Progress note Author Robin Gray [facility] October 10, 2023 9:23am Note Date/Time October 10, 2023 7 :56am [facility] Medical Records Department [address] [place] [address] Progress Note - Surgery 10/10/23 0756 MR#: [id number] Acct: [id number] Name: YUE ANGULO Rep #:[id number] : 1960 63 From: Robin GUADARRAMA PA-C PCP: LINA ZENDEJAS Status:ADM IN Location: [place] [address] Subjective Subjective Patient evaluated resting comfortably in bed. She notes pain is much improved. She is comfortable proceeding with an ERCP followed by a nely stephie with liver biopsy. Objective Data Objective Data Vital Signs: Vital Signs Temp Pulse Resp BP Pulse Ox O2 Del Method O2 Flow Rate 98 F 77 16 111/48 L 99 Room Air 2 10/10/23 05:00 10/10/23 05:00 10/10/23 05:00 10/10/23 05:00 10/10/23 05:00 10/10/23 05:00 10/09/23 20:25 Oxygen Flow Rate (L/min) 2 Oxygen Delivery Method Room Air Weight: 172 lb 6.424 oz Body Mass Index (BMI) 28.7 Intake & Output: Intake and Output for Last 24 Hours 10/08/23 10/09/23 10/10/23 23:59 23:59 23:59 Intake Total 1220 / 1220 1050 / 1050 Balance 1220 / 1220 1050 / 1050 Lab / Micro Data 10/10/23 04:08 10/10/23 04:08 Labs: Laboratory Results - last 24 hr 10/09/23 08:05: WBC 7.7, RBC 4.29, Hgb 13.2, Hct 37.9, MCV 88.3, MCH 30.8, MCHC 34.8, RDW Std Deviation 43.0, RDW Coeff of Jenn 13.8, Plt Count 157, MPV 10.0, Immature Gran % (Auto) 0.800, Neut % (Auto) 83.9 H, Lymph % (Auto) 8.7 L, [place] %(Auto) 5.7, Eos % (Auto) 0.4, Baso % (Auto) 0.5, Absolute Neuts (auto) 6.5, Absolute Lymphs (auto) 0.67 L, Nucleated RBC % 0, Sodium 138, Potassium 4.0, Chloride 105, Carbon Dioxide 29.0, Anion Gap 4 L, BUN 13, Creatinine 0.86, EstimCreat Clear Calc 70.63, Est GFR (MDRD) Af Amer 86, Est GFR (MDRD) Non-Af 71, BUN/Creatinine Ratio 15.2, Glucose 125 H, Calcium 9.4, Total Bilirubin 3.00 H, Direct Bilirubin 1.91 H, AST 190 H, ALT 101 H, Alkaline Phosphatase 164 H, Troponin I High Sens 7, Total Protein 7.4, Albumin 3.8, Globulin 3.6, Lipase 39 10/10/23 04:08: WBC 7.2, RBC 3.86 L, Hgb 11.7 L, Hct 34.1 L, MCV 88.3, MCH 30.3,MCHC 34.3, RDW Std Deviation 43.4, RDW Coeff of Jenn 13.7, Plt Count 146 L, MPV 10.0, Immature Gran % (Auto) 0.700, Neut % (Auto) 80.1 H, Lymph % (Auto) 12.3 L,Lorain % (Auto) 6.6, Eos % (Auto) 0.0, Baso % (Auto) 0.3, Absolute Neuts (auto) 5.7, Absolute Lymphs (auto) 0.88, Nucleated RBC % 0, PT 16.2 H, INR 1.3, APTT 31.1, Sodium 144, Potassium 3.5, Chloride 114 H, Carbon Dioxide 26.0, Anion Gap 4 L, BUN 12, Creatinine 0.75, Estim Creat Clear Calc 80.39, Est GFR (MDRD) Af Amer 101, Est GFR (MDRD) Non-Af 83, BUN/Creatinine Ratio 16.0, Glucose 106, Calcium 8.5, Phosphorus 4.2, Magnesium 2.0, Total Bilirubin 1.40 H, AST 121 H, ALT 139 H, Alkaline Phosphatase 139 H, Total Protein 6.1 L, Albumin 3.2, Globulin 2.9, Albumin/Globulin Ratio 1.1 Radiography Diagnostic Testing: Radiology Impression Abdomen/Pelvis CT 10/09/23 07:13 IMPRESSION: Splenomegaly. Mildly distended gallbladder with no associated gallbladder wall thickening or pericholecystic fluid, consider right upper quadrant ultrasound for further evaluation. Electronically Signed: Whit Medina MD at 9:56 EST , Gallbladder Ultrasound 10/09/23 08:34 IMPRESSION: Sludge and gallstones within a mildly distended gallbladder with no associated pericholecystic fluid, gallbladder wall thickening nor reported positive sonographic Munson''s sign. Electronically Signed: Whit Medina MD at 10:18 EST , Assessment & Plan Assessment/Plan (1) Choledocholithiasis: PLAN: I have evaluated this patient in conjunction with Dr. Audrey Dumont. Ravindra will plan to perform an ERCP today Dr. Ventura will plan to perform a lap stephie with IOC and liver biopsy Patient may have clear liquids following the ERCP today up until midnight Continue IV antibiotics Continue to hold Xarelto We will continue to monitor this patient Capacity Legal Electrical [employer]semblies Supervisor Reflex Medical hold order details:: IF a medical hold is selected below, a suggested order for a MEDICAL HOLD will reflex upon signing the document. Next of kin: [place] law dictates a PRIORITY LIST for identifying legal decision-maker/legal next of kin in the following order (LNOK): 1st: The patient?s legal guardian, if any 2nd: The patient's spouse (if status is questionable, consult Risk Management) 3rd: The patient?s adult child(alejandro) (majority, if multiple children) 4th: The patient?s parents 5th: The patient?s adult siblings (majority, if multiple children siblings) Charges/Coding Visit Charges Inpatient E&M: 68237 Subs Hosp L1 10/10/23 0923 <Electronically signed by Robin GUADARRAMA PA-C> Cosigner Signature (if applicable): CC: ~ Signed [facility] Work Phone: 1(716) 625-911401-18-2024 Procedure [facility] 10-10-2023 Procedure [facility]01-17-2024 Consult note Author Roberto Carlos Waite [facility] October 09, 2023 7:48pm Note Date/Time October 09, 2023 7 :48pm [facility] Medical Records Department [address] [place] [address] Consultation - GI 10/09/231938 MR#: [id number] Acct: [id number] Name: YUE ANGULO Rep #:[id number] : 1960 63 From: Roberto Carlos Waite DO PCP: LINA ZENDEJAS Status:ADM IN Location: [facility] [id number] ADDENDUM by Roberto Carlos Waite DO on 10/09/23 at 1948 Multi Select Codes Visit Charges Visit Charges: 05133 Init Hosp L3 10/09/231947<Electronically signed by Roberto Carlos Waite DO> Cosigner Signature (if applicable): cc: Dr. Lauren Brewer MD; LINA ZENDEJAS ~* Signed HPI Consult Data Date of Consult: 10/09/23 HPI Narrative Reason for Consultation: Jaundice and cholestatic hepatitis HPI Narrative: YUE ANGULO, is a 63-year-old female with past medical history of atrial fibrillation on Xarelto as well as pulmonary hypertension, and sleep apnea. She states that last night around midnight she developed pain in the midepigastric region with mild nausea. She states as the night progressed the pain began to wrap around towards her sides and back and increased in severity. She states that with the increased pain she is concerned that this could be potential infection or even cardiac based on it occurring in the upper abdomen and therefore comes in for evaluation. She also apparently has a diagnosis of Abarca, and she was told in the past that she has possible cirrhosis. She has no history of a jaundice. She's never needed paracentesis. She was never told to take lactulose. She has no bleeding or bruising problems. She also has no family history of liver disease. S had an ultrasound of the right of a quadrant that showed dilated comb duct at 8 mm at the level of the [place] and small stones in the gallbladder. CT scan of the abdomen displayssplenomegaly. [facility] Medical History (Updated 10/09/23 @ 18:[address] Lauren Brewer MD) A-fib Cirrhosis Pulmonary HTN Sleep apnea Home Medications rivaroxaban 20 mg tablet (Xarelto) 20 mg PO QPM BLOOD THINNER 03/14/22 [History Last Taken 10/08/23] acetaminophen 325 mg tablet 325 mg PO Q6H PRN PAIN 10/09/23 [History Last Taken Unknown] bumetanide 1 mg tablet 1 mg PO DAILY PRN EDEMA 10/09/23 [History Last Taken Unknown] buspirone 5 mg tablet 5 mg PO TID PRN ANXIETY 10/09/23 [History Last Taken Unknown] cholecalciferol (vitamin D3) 25 mcg (1,000 unit) tablet (Vitamin D3) 25 mcg PO DAILY SUPPLEMENT 10/09/23 [History Last Taken 10/08/23] colchicine 0.6 mg tablet 0.6 mg PO Q12H GOUT 10/09/23 [History Last Taken 10/08/23] cyanocobalamin (vitamin B-12) 1,000 mcg capsule 1,000 mcg PO DAILY SUPPLEMENT 10/09/23 [History Last Taken 10/08/23] dofetilide 500 mcg capsule (Tikosyn) 500 mcg PO BID AFIB 10/09/23 [History Last Taken 10/08/23] magnesium 250 mg tablet 250 mg PO BID SUPPLEMENT 10/09/23 [History Last Taken 10/08/23] metoprolol succinate 25 mg tablet,extended release 24 hr 12.5 mg PO QPM BLOOD PRESSURE 10/09/23 [History Last Taken 10/08/23] metoprolol succinate 25 mg tablet,extended release 24 hr 25 mg PO DAILY BLOOD PRESSURE 10/09/23 [History Last Taken 10/08/23] pantoprazole 40 mg tablet,delayed release 40 mg PO DAILY ACID REFLUX 10/09/23 [History Last Taken 10/08/23] potassium chloride 20 mEq tablet,extended release (K-Tab) 20 meq PO DAILY PRN SUPPLEMENT 10/09/23 [History Last Taken Unknown] tadalafil 20 mg tablet 20 mg PO BID LUNGS 01/17/24 [History Last Taken 10/08/23] Allergy/AdvReac Type Severity Reaction Status Date / Time codeine Allergy Other Verified 03/14/22 10:07 ibuprofen [From Motrin] Allergy Hives Verified 03/14/22 10:07 Iodinated Contrast Media [CT] Allergy Chest Verified 03/14/22 10:07 tightness morphine Allergy Hives Verified 03/14/22 10:07 phenytoin sodium Allergy Other Verified 03/14/22 10:07 [From Dilantin] phenytoin sodium extended Allergy Other Verified 03/14/22 10:07 [From Dilantin] sulfamethoxazole Allergy Hives Verified 03/14/22 10:07 [From Bactrim] trimethoprim [From Bactrim] Allergy Hives Verified 03/14/22 10:07 Surgical History History of bunionectomy Hx of maze procedure Hx of tonsillectomy Hx of tubal ligation Social History Smoking Status: Never smoker ROS Constitutional Constitutional: Reports systems reviewed and no addt'l complaints, except as documented Eyes Eyes: Reports systems reviewed and no addt'l complaints, except as documented ENT HEENT: Reports systems reviewed and no addt'l complaints, except as documented Cardiovascular Cardiovascular: Reports systems reviewed and no addt'l complaints, except as documented Respiratory/Chest Respiratory/Chest: Reports systems reviewed and no addt'l complaints, except as documented Gastrointestinal Gastrointestinal: Reports systems reviewed and no addt'l complaints, except as documented Genitourinary Genitourinary: Reports systems reviewed and no addt'l complaints, except as documented Musculoskeletal Musculoskeletal: Reports systems reviewed and no addt'l complaints, except as documented Integumentary Integumentary: Reports systems reviewed and no addt'l complaints, except as documented Neurologic Neurologic: Reports systems reviewed and no addt'l complaints, except as documented Psychiatric Psychiatric: Reports systems reviewed and no addt'l complaints, except as documented Endocrine Endocrinology: Reports systems reviewed and no addt'l complaints, except as documented Hematologic/Lymphatic Hematologic/Lymphatic: Reports systems reviewed and no addt'l complaints, exceptas documented Allergic/Immunologic Allergic/Immunologic: Reports systems reviewed and no addt'l complaints, except as documented Physical Exam Narrative General: Alert, oriented, no apparent distress HEENT: Atraumatic, normocephalic Eyes: Anicteric, normal conjunctiva, extraocular movements grossly intact Neck: Supple Respiratory: Clear to auscultation bilaterally, normal respiratory effort Cardiovascular: Regular rate and rhythm GI: Soft, mild tender to palpation epigastric region without rebound, guarding, rigidity Extremities: No edema Musculoskeletal: Moving all extremities Neuro: No overt focal neurological deficits Skin: No rashes appreciated Psych: Cooperative Lab / Micro Data 10/09/23 08:05 10/09/23 08:05 Labs: Laboratory Results - last 24 hr 10/09/23 08:05: WBC 7.7, RBC 4.29, Hgb 13.2, Hct 37.9, MCV 88.3, MCH 30.8, MCHC 34.8, RDW Std Deviation 43.0, RDW Coeff of Jenn 13.8, Plt Count 157, MPV 10.0, Immature Gran % (Auto) 0.800, Neut % (Auto) 83.9 H, Lymph % (Auto) 8.7 L, [place] %(Auto) 5.7, Eos % (Auto) 0.4, Baso % (Auto) 0.5, Absolute Neuts (auto) 6.5, Absolute Lymphs (auto) 0.67 L, Nucleated RBC % 0, Sodium 138, Potassium 4.0, Chloride 105, Carbon Dioxide 29.0, Anion Gap 4 L, BUN 13, Creatinine 0.86, EstimCreat Clear Calc 70.63, Est GFR (MDRD) Af Amer 86, Est GFR (MDRD) Non-Af 71, BUN/Creatinine Ratio 15.2, Glucose 125 H, Calcium 9.4, Total Bilirubin 3.00 H, Direct Bilirubin 1.91 H, AST 190 H, ALT 101 H, Alkaline Phosphatase 164 H, Troponin I High Sens 7, Total Protein 7.4, Albumin 3.8, Globulin 3.6, Lipase 39 Imagaing Radiology Impression Abdomen/Pelvis CT 10/09/23 07:13 IMPRESSION: Splenomegaly. Mildly distended gallbladder with no associated gallbladder wall thickening or pericholecystic fluid, consider right upper quadrant ultrasound for further evaluation. Electronically Signed: Whit Medina MD at 9:56 EST , Gallbladder Ultrasound 10/09/23 08:34 IMPRESSION: Sludge and gallstones within a mildly distended gallbladder with no associated pericholecystic fluid, gallbladder wall thickening nor reported positive sonographic Munson''s sign. 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 -Reportedly follows with a physician through [facility] for this -Will check PT/INR, to calculate her MELD #GERD -Continue PPI #DVT ppx: SCDs Lauren Brewer MD Time spent in the patient's overall evaluation,decision-making process, review of diagnostic data, adjustment of management, discussion with other providers, nursing nursing and ancillary staff involved in patient's care documentation, 45minutes Capacity Legal Electrical Assemblies Supervisor Reflex Medical hold order details:: IF a medical hold is selected below, a suggested order for a MEDICAL HOLD will reflex upon signing the document. Next of kin: [place] law dictates a PRIORITY LIST for identifying legal decision-maker/legal next of kin in the following order (LNOK): 1st: The patient?s legal guardian, if any 2nd: The patient's spouse (if status is questionable, consult Risk Management) 3rd: The patient?s adult child(alejandro) (majority, if multiple children) 4th: The patient?s parents 5th: The patient?s adult siblings (majority, if multiple children siblings) 10/09/231946 <Electronically signed by Roberto Carlos Waite DO> Cosigner Signature (if applicable): CC: Dr. Lauren Brewer MD; LINA ZENDEJAS~ Signed [facility] Work Phone: 1(329) 875-411501-17-2024 Progress note Author Lauren Brewer [facility] October 09, 2023 6:51pm Note Date/Time October 09, 2023 4 :30pm [facility] Medical Records Department [address] [place] [address] Progress Note - Hospitalist 10/09/23 1630 MR#: [id number] Acct: [id number] Name: YUE ANGULO Rep #:[id number] : 1960 63 From: Lauren Brewer MD PCP: LINA ZENDEJAS Status:ADM IN Location: [place] [address]-1 Reason for Visit Reason for Visit: Diagnoses Calculus of bile duct without cholangitis or cholecystitis without obstruction (10/09/23) Subjective Subjective Patient is a 63-year-old female with reported history of pulmonary hypertension,CHF, FARSHAD on CPAP, cirrhosis secondary to Abarca, A-fib on Xarelto, ASD fixed July 2022 and maze procedure in April with subsequent pericarditis which she is on colchicine and aspirin for who presented to [facility]2023 due to mid epigastric pain that radiated to her back that started at midnight and progressively worsened with worsening nausea. In the ED she had elevated bilirubin, alk phos, AST and ALT and CT abdomen pelvis with mildly distended gallbladder and right upper quadrant ultrasound with mildly distended gallbladder and gallstones with gall sludge. Surgery contacted in ED and plan to admit and requested medical consultation. Patient evaluated and gave historyas above, since being in the ED she is feeling better with decreased abdominal pain. Denies fevers or chills, reports she has some chronic diarrhea with last episode at 5 AM but this is not different from baseline, occasionally will have dribbling of urine but no other urinary symptoms or complaints. No chest pain, no changes in breathing from baseline. Objective Data Objective Data Vital Signs: Vital Signs Temp Pulse Resp BP Pulse Ox O2 Del Method 98.6 F 87 16 129/59 H 94 Room Air 10/09/23 14:38 10/09/23 14:38 10/09/23 14:38 10/09/23 14:38 10/09/23 15:05 10/09/23 15:05 Oxygen Delivery Method Room Air Weight: 78.2 kg Body Mass Index (BMI) 28.7 Intake & Output: Intake and Output for Last 24 Hours 10/07/23 10/08/23 10/09/23 23:59 23:59 23:59 Intake Total 1100 / 1100 Balance 1100 / 1100 Lab / Micro Data 10/09/23 08:05 10/09/23 08:05 Labs: Laboratory Results - last 24 hr 10/09/23 08:05: WBC 7.7, RBC 4.29, Hgb 13.2, Hct 37.9, MCV 88.3, MCH 30.8, MCHC 34.8, RDW Std Deviation 43.0, RDW Coeff of Jenn 13.8, Plt Count 157, MPV 10.0, Immature Gran % (Auto) 0.800, Neut % (Auto) 83.9 H, Lymph % (Auto) 8.7 L, [place] %(Auto) 5.7, Eos % (Auto) 0.4, Baso % (Auto) 0.5, Absolute Neuts (auto) 6.5, Absolute Lymphs (auto) 0.67 L, Nucleated RBC % 0, Sodium 138, Potassium 4.0, Chloride 105, Carbon Dioxide 29.0, Anion Gap 4 L, BUN 13, Creatinine 0.86, EstimCreat Clear Calc 70.63, Est GFR (MDRD) Af Amer 86, Est GFR (MDRD) Non-Af 71, BUN/Creatinine Ratio 15.2, Glucose 125 H, Calcium 9.4, Total Bilirubin 3.00 H, Direct Bilirubin 1.91 H, AST 190 H, ALT 101 H, Alkaline Phosphatase 164 H, Troponin I High Sens 7, Total Protein 7.4, Albumin 3.8, Globulin 3.6, Lipase 39 Radiography Diagnostic Testing: Radiology Impression Abdomen/Pelvis CT 10/09/23 07:13 IMPRESSION: Splenomegaly. Mildly distended gallbladder with no associated gallbladder wall thickening or pericholecystic fluid, consider right upper quadrant ultrasound for further evaluation. Electronically Signed: Whit Medina MD at 9:56 EST , Gallbladder Ultrasound 10/09/23 08:34 IMPRESSION: Sludge and gallstones within a mildly distended gallbladder with no associated pericholecystic fluid, gallbladder wall thickening nor reported positive sonographic Munson''s sign. Electronically Signed: Whit Medina MD at 10:18 EST , Physical Exam Narrative General: Alert, oriented, no apparent distress HEENT: Atraumatic, normocephalic Eyes: Anicteric, normal conjunctiva, extraocular movements grossly intact Neck: Supple Respiratory: Clear to auscultation bilaterally, normal respiratory effort Cardiovascular: Regular rate and rhythm GI: Soft, mild tender to palpation epigastric region without rebound, guarding, rigidity Extremities: No edema Musculoskeletal: Moving all extremities Neuro: No overt focal neurological deficits Skin: No rashes appreciated Psych: Cooperative Assessment & Plan Assessment/Plan (1) Choledocholithiasis: (2) A-fib: (3) Sleep apnea: (4) Pulmonary HTN: (5) Cirrhosis: PLAN: Plan #Choledocholithiasis -Patient admitted by surgery service, being evaluated for cholecystectomy -GI also consulted for ERCP -Patient started on fluids and Zosyn -Holding Xarelto # History of A-fib/pulmonary hypertension/ASD fixed July 2022/maze procedurein April with subsequent pericarditis on colchicine and aspirin/?CHF -Patient with extensive history, follows at [facility] -On Tikosyn for her A-fib, EKG with QTc of 460 and normal sinus rhythm and low voltage -Given patient is on Tikosyn will repeat EKG in the a.m. 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 Next of kin: [place] law dictates a PRIORITY LIST for identifying legal decision-maker/legal next of kin in the following order (LNOK): 1st: The patient?s legal guardian, if any 2nd: The patient's spouse (if status is questionable, consult Risk Management) 3rd: The patient?s adult child(alejandro) (majority, if multiple children) 4th: The patient?s parents 5th: The patient?s adult siblings (majority, if multiple children siblings) Charges/Coding Visit Charges Inpatient E&M: 49489 Subs Hosp L2 10/09/23 1851 <Electronically signed by Lauren Brewer MD> Cosigner Signature (if applicable): CC: ~ Signed [facility] Work Phone: [phone]) 406-265801-17-2024 History and physical note Author Jamar Ventura [facility] October 09, 2023 6:33pm Note Date/Time October 09, 2023 1 :00pm [facility] Medical Records Department [address] [place] [address] History & Physical Exam 10/09/23 1300 MR#: [id number] Acct: [id number] Name: YUE ANGULO Rep #:[id number] : 1960 63 From: Robin GUADARRAMA PA-C PCP: LINA ZENDEJAS Status:ADM IN Location: [facility] QU546-2 HPI - General General Date of Admission: 10/09/23 Date of Service: 10/09/23 Chief Complaint: Choledocholithiasis HPI Narrative YUE ANGULO, is a 63 F who presents with an acute onset of abdominal pain/epigastric pain. Patient states she was laying in bed around midnight when her epigastric discomfort started. Patient states her pain continued to intensify wrapping around her upper abdomen like a belt and into her back between her shoulder blades. Patient notes she started to become nauseated once the pain became worse. Patient stated that is when she presented to the ED. She notes one other occasion that she had similar less intense pain on when she ate chili. Patient denies previous gallbladder symptoms. She notes a history of cirrhosis, diagnosed in 2015, secondary to ABARCA. She notes [facility]establ[facility] [place]. She was diagnosed based off of imaging and lab work. She notes the liver specialist was going to have the patient perform a liver biopsy, however this has not been scheduled. Patient notes a cardiac history for which her cardiology team is out of [facility]. Patient states in July of 2022 she had an arterial septal defect repaired. She notes in April of 2023 she had a Maze procedure for A fib. Patient notes this was complicated by the development of pericarditis. She continues to be on Xarelto for A fib. Her last dose was yesterday. Patient also has pulmonary hypertension and sleep apnea for which she uses a CPAP machine for. She notes her only abdominal surgery has been for a bladder sling. She notes the Maze procedure, she has an epigastric incision. Patient had a CT scan of the ab/pel which demonstrated splenomegaly, mildly distended gallbladder with no associated gallbladder wall thickening or pericholecystic fluid. RUQ u/s was obtained demonstrating The gallbladder is mildly distended. There are gallstones and sludge within the gallbladder. There is no gallbladder wall thickening or pericholecystic fluid. The proximal common bile duct measures 8.2 mm and tapers distally to 4.6 mm. Patient's liver enzymes were elevated T bili 3.00, AST 190, ALT 101, Alk phos 164. Normal WBC. [facility] Medical History A-fib Pulmonary HTN Sleep apnea Home Medications rivaroxaban 20 mg tablet (Xarelto) 20 mg PO QPM BLOOD THINNER 03/14/22 [History Last Taken 10/08/23] acetaminophen 325 mg tablet 325 mg PO Q6H PRN PAIN 10/09/23 [History Last Taken Unknown] bumetanide 1 mg tablet 1 mg PO DAILY PRN EDEMA 10/09/23 [History Last Taken Unknown] buspirone 5 mg tablet 5 mg PO TID PRN ANXIETY 10/09/23 [History Last Taken Unknown] cholecalciferol (vitamin D3) 25 mcg (1,000 unit) tablet (Vitamin D3) 25 mcg PO DAILY SUPPLEMENT 10/09/23 [History Last Taken 10/08/23] colchicine 0.6 mg tablet 0.6 mg PO Q12H GOUT 10/09/23 [History Last Taken 10/08/23] cyanocobalamin (vitamin B-12) 1,000 mcg capsule 1,000 mcg PO DAILY SUPPLEMENT 10/09/23 [History Last Taken 10/08/23] dofetilide 500 mcg capsule (Tikosyn) 500 mcg PO BID AFIB 10/09/23 [History Last Taken 10/08/23] magnesium 250 mg tablet 250 mg PO BID SUPPLEMENT 10/09/23 [History Last Taken 10/08/23] metoprolol succinate 25 mg tablet,extended release 24 hr 12.5 mg PO QPM BLOOD PRESSURE 10/09/23 [History Last Taken 10/08/23] metoprolol succinate 25 mg tablet,extended release 24 hr 25 mg PO DAILY BLOOD PRESSURE 10/09/23 [History Last Taken 10/08/23] pantoprazole 40 mg tablet,delayed release 40 mg PO DAILY ACID REFLUX 10/09/23 [History Last Taken 10/08/23] potassium chloride 20 mEq tablet,extended release (K-Tab) 20 meq PO DAILY PRN SUPPLEMENT 10/09/23 [History Last Taken Unknown] tadalafil 20 mg tablet 20 mg PO BID LUNGS 10/09/23 [History Last Taken 10/08/23] Allergy/AdvReac Type Severity Reaction Status Date / Time codeine Allergy Other Verified 03/14/22 10:07 ibuprofen [From Motrin] Allergy Hives Verified 03/14/22 10:07 Iodinated Contrast Media [CT] Allergy Chest Verified 03/14/22 10:07 tightness morphine Allergy Hives Verified 03/14/22 10:07 phenytoin sodium Allergy Other Verified 03/14/22 10:07 [From Dilantin] phenytoin sodium extended Allergy Other Verified 03/14/22 10:07 [From Dilantin] sulfamethoxazole Allergy Hives Verified 03/14/22 10:07 [From Bactrim] trimethoprim [From Bactrim] Allergy Hives Verified 03/14/22 10:07 Surgical History History of bunionectomy Hx of maze procedure Hx of tonsillectomy Hx of tubal ligation Social History Smoking Status: Never smoker ROS Constitutional Constitutional: Reports systems reviewed and no addt'l complaints, except as documented Eyes Eyes: Reports systems reviewed and no addt'l complaints, except as documented ENT HEENT: Reports systems reviewed and no addt'l complaints, except as documented Cardiovascular Cardiovascular: Reports systems reviewed and no addt'l complaints, except as documented Respiratory/Chest Respiratory/Chest: Reports systems reviewed and no addt'l complaints, except as documented Gastrointestinal Gastrointestinal: Reports systems reviewed and no addt'l complaints, except as documented Genitourinary Genitourinary: Reports systems reviewed and no addt'l complaints, except as documented Musculoskeletal Musculoskeletal: Reports systems reviewed and no addt'l complaints, except as documented Integumentary Integumentary: Reports systems reviewed and no addt'l complaints, except as documented Neurologic Neurologic: Reports systems reviewed and no addt'l complaints, except as documented Psychiatric Psychiatric: Reports systems reviewed and no addt'l complaints, except as documented Endocrine Endocrinology: Reports systems reviewed and no addt'l complaints, except as documented Hematologic/Lymphatic Hematologic/Lymphatic: Reports systems reviewed and no addt'l complaints, exceptas documented Allergic/Immunologic Allergic/Immunologic: Reports systems reviewed and no addt'l complaints, except as documented Vital Signs Vital Signs Vital Signs: 10/09/23 06:23 10/09/23 08:22 10/09/23 10:22 Temperature 97.7 F L Temperature Source Temporal Pulse Rate 69 Respiratory Rate 15 16 16 Blood Pressure 135/63 H Blood Pressure Mean 87 Pulse Ox 96 Oxygen Delivery Method Room Air Weight Weight: 175 lb 0.752 oz Body Mass Index (BMI) 29.1 Physical Exam Const alert, oriented x3 and no apparent distress General Appearance: cooperative and comfortable HEENT normocephalic and head/scalp atraumatic Eyes PERRL Neck full ROM Chest inspection of chest normal Resp normal respiratory effort and clear to auscultation bilaterally Cardio regular rate and regular rhythm GI normal to inspection, nondistended, normoactive bowel sounds Palpation: tender epigastric no CVA tenderness Back/Spine no CVA tenderness Extremity normal to inspection Skin no rashes or lesions noted Neuro no focal motor deficits and no sensory deficits noted Psych mental status grossly normal Results Lab / Micro Data 10/09/23 08:05 10/09/23 08:05 Labs: Laboratory Results - last 24 hr 10/09/23 08:05: WBC 7.7, RBC 4.29, Hgb 13.2, Hct 37.9, MCV 88.3, MCH 30.8, MCHC 34.8, RDW Std Deviation 43.0, RDW Coeff of Jenn 13.8, Plt Count 157, MPV 10.0, Immature Gran % (Auto) 0.800, Neut % (Auto) 83.9 H, Lymph % (Auto) 8.7 L, [place] %(Auto) 5.7, Eos % (Auto) 0.4, Baso % (Auto) 0.5, Absolute Neuts (auto) 6.5, Absolute Lymphs (auto) 0.67 L, Nucleated RBC % 0, Sodium 138, Potassium 4.0, Chloride 105, Carbon Dioxide 29.0, Anion Gap 4 L, BUN 13, Creatinine 0.86, EstimCreat Clear Calc 70.63, Est GFR (MDRD) Af Amer 86, Est GFR (MDRD) Non-Af 71, BUN/Creatinine Ratio 15.2, Glucose 125 H, Calcium 9.4, Total Bilirubin 3.00 H, Direct Bilirubin 1.91 H, AST 190 H, ALT 101 H, Alkaline Phosphatase 164 H, Troponin I High Sens 7, Total Protein 7.4, Albumin 3.8, Globulin 3.6, Lipase 39 Imagaing Radiology Impression Abdomen/Pelvis CT 10/09/23 07:13 IMPRESSION: Splenomegaly. Mildly distended gallbladder with no associated gallbladder wall thickening or pericholecystic fluid, consider right upper quadrant ultrasound for further evaluation. Electronically Signed: Whit Medina MD at 9:56 EST , Gallbladder Ultrasound 10/09/23 08:34 IMPRESSION: Sludge and gallstones within a mildly distended gallbladder with no associated pericholecystic fluid, gallbladder wall thickening nor reported positive sonographic Munson''s sign. Electronically Signed: Whit Medina MD at 10:18 EST , Assessment & Plan Assessment/Plan (1) Choledocholithiasis: PLAN: I am seeing this patient in conjunction with Dr. Ventura. He will independently evaluate this patient. Patient initially wanted to be transferred to [facility] where her cardiology team is located. ER contacted [facility] are no beds available and they are not accepting any new patient's at thistime. This was discussed with patient and she is agreeable to proceed with admission here. Plan to admit patient and consult hospitalist for medical management and gastroenterology for evaluation for an ERCP. Patient has been started on Zosyn in the ED. Patient will need an ERCP with Dr. Waite. [place] is currently being held. Plan for patient to be on tele. Patient will be placed NPO in anticipation that an ERCP may be completed today. If, not, patient may have full liquids and NPO after midnight. Dr. Ventura will discuss with the patient in regards to proceeding with a laparoscopic cholecystectomy with intraoperative cholangiogram during her hospitalization. Patient may decide to have this portion of her procedure completed elsewhere. If patient agreeable, wewill plan to proceed following the ERCP when operating time permits. a has had the opportunity to ask and have questions answered. Patient verbally understandsand agrees with the plan. Thank you for allowing us to participate in this patient's care. Charges/Coding Visit Charges Inpatient E&M: 13462 Init Hosp L2 10/09/23 1628 <Electronically signed by Robin GUADARRAMA PA-C> Cosigner Signature (if applicable): CC: MARIA DE JESUS Gray; Dr. Jamar Ventura MD; LINA ZENDEJAS~ Signed ADDENDUM by Dr. Jamar Ventura MD on 10/09/23 at 1833 Addendum Patient seen and evaluated following THIERRY Estes. Agree with her documentation above. In brief Mrs. Angulo is a 63-year-old female, with significant cardiopulmonary disease as well as prior diagnosis of cirrhosis, presenting with a acute onset complaint of epigastric abdominal pain and associated nausea and vomiting as well as diarrhea. She denies any preceding symptoms of similar lower character. Her ER workup is 1 consistent with a diagnosis of choledocholithiasis, however, I do not see evidence of cholecystitis with her workup nor do I find it with her exam. I held a detailed conversation with her at bedside?including hand drawings to facilitate important anatomical points?and shared with her not only in her diagnosis but the treatment plan to include possible ERCP and possible cholecystectomy. Given her noted reluctance at undergoing treatment here where her cardiology team is not available to her, I offered that we could consider a coordination of care with her team at [facility], but stressed that I would not recommend a long interval between this inpatient stay and that evaluation so as to mitigate her risk for recurrence of her choledocholithiasis. She shares with me that she is comfortable undergoing what ever care is recommended here. I informed her that I would like to conductadditional evaluation of her liver (and so far as we are able with the acute changes that have occurred in relationship to choledocholithiasis) to better understand the degree of her cirrhosis. I have also shared I want her to be further evaluated from a cardiac standpoint by our hospitalist service. If the above evaluations are permissible and we will tentatively proceed with cholecystectomy later this week. In anticipation of this intervention and possible ERCP will hold her Xarelto. 10/09/231832<Electronically signed by Jamar Ventura MD> Cosigner Signature (if applicable): cc: MARIA DE JESUS Gray; Dr. Jamar Ventura MD; LINA TERESA ~* Signed [facility] Work Phone: 1(111) 313-470412-05-2023 Instructions* Patient Instructions* Deisy Mendoza PA-C - [...] of LAGEVRIO during to this registry at [email or web address]://[email or web address] or . For individuals who are sexually [...] virus. COVID-19 illnesses have ranged from very nzfa-np-sxbyyb, including illness resulting in . While information [...] serious illnesses Take any medicines including prescription, lbos-lnz-lnimpxq medicines, vitamins, and herbal products. How do [...] NG or OG that is size 12 [place] (FR) or larger. If you miss a [...] to treat people with COVID-19. Go to https://www.fda.gov/lwptmfrzj-fewdynfifndk-rkz-response/oqn-nnnagojpydnfjlj-zgb- policy-framework/bygqoyhqs-wnn-evtsqssqnziat for more information. It is your choice [...] to FDA MedWatch at www.fda.gov/medwatch or call 5-242-QNR-5143 (1996.335.7469). How should I store LAGEVRIO? Store LAGEVRIO capsules at room temperature between 68 F to 77 F (20 C to 25 C). Keep LAGEVRIO and all medicines out of the reach of children. How can I learn more about COVID-19? Ask your healthcare provider. Visit www.cdc.gov/COVID19 Contact your local or state public health department. Call [employer] at (toll free in the [place] Visit www.[employer] What Is an Emergency Use Authorization (EUA)? The [place] FDA has made LAGEVRIO available under an emergency access mechanism called an Emergency Use Authorization (EUA) The EUA is supported by a Production Dispatcher of Health and Human Service (HHS)declaration that circumstances exist to justify emergency use of drugs and biological products during the COVID-19 pandemic. LAGEVRIO for the treatment of adults with a current diagnosis of kgrn-xa-ulvvgsbj COVID-19 who are at high risk for [...] be used under the EUA). Abiel. for: [employer] [address] For patent information: www.[employer]/research/patent Copyright [employer] [place], [place], [facility] and its affiliates. All rights reserved. [id number] Revised: October 2022 [facility]23 Miscellaneous Notes* Telephone Encounter - Deisy Mendoza PA-C - 08/27/2023 8:09 AM EST Molnupiravir Eligibility and Patient Discussion [facility] Formulary Restriction Criteria: Adult outpatients 18 years [...] withthe Fact Sheet for Patients, Parents and Caregivers. The patient was also instructed that in [...] 27, 2023 8:12 AM documented in this encounterDiley [facility]12-05-2023 Miscellaneous Notes* Telephone Encounter - Aliza Melvin - 08/27/2023 7:29 AM EST Patient given results and verbalized understanding of instructions given. Aliza Melvin * Telephone Encounter - Deisy Mendoza PA-C - 08/27/2023 7:16 AM EST Call and let patient know she was positive for COVID-19. If she is interested in antiviral treatment I can print her off a prescription for molnupiravir. Would recommend a 5-day quarantine followed by 5 days of a mask. Follow-up with primary care if not improving. documented in this encounterDiley [facility] Center12-04-2023 NoteHNO ID: [id number] Author: Phil Márquez APRN.CASER Service: ? Author Type: Nurse Practitioner Type: [...] 1992 Bladder suspension FOOT SURGERY HX Left 2008 Bunion removed TONSILLECTOMY HX age 4 TUBAL LIGATION HX 1992 ALLERGIES Bactrim [Sulfamethoxazole-Trimethoprim], Codeine, Dilaudid [Hydromorphone (Bulk)], Iodine, Morphine, and Motrin [Ibuprofen] MEDICATIONS potassium chloride ER (KLOR-CON M20) 20 mEq tablet Dose : 20 mEq = 1 tab(s), Oral, qDay, # 30 tab(s), 3 Refill(s), Pharmacy: [facility], 167.6, cm, 04/08/23 13:33:00 EDT, [...] Congestion present. Eyes: Conjunctiva (more content not included)...[facility]12-04-2023 Instructions* Patient Instructions* Phil Márquez APRN.[facility] - 08/26/2023 5:48 PM EST How to [...] or concerning to you. documented in [facility] History of Present illness Narrative* Phil Márquez [...] qDay, # 30 tab(s), 3 Refill(s), Pharmacy: [facility], 167.6, cm, 04/08/23 13:33:00 EDT, [...] of care. This note was generated using Online-OR software. It may contain errors in wording, punctuation, or spelling. Phil Márquez APRN.CASER documented in this encounterDiley [facility]11-30-[facility]23 Evaluation note* Encounter Date Assessment Date Assessment LastModified by Organization Details LastModified Time 08/22/2023 08/22/2023 [facility] follows [facility] Not available 08/22/2023 15:52:28 [facility] 09-21-2023 Evaluation note* Encounter Date Assessment Date Assessment 06/13/2023 06/13/2023 [facility] follows-- exam UTD [facility] 09-19-2023 Hospital Discharge instructions Patient Education 06/11/2023 [...] vision Extreme drowsiness, confusion, dizziness, or fainting [phone] [employer] [address] [place] [address], [place] [address]. All rights reserved. This information is not intended as a substitute for professional medical care. Always follow yourhealthcare professional's instructions. Follow Up Care 06/11/2023 09:58:14 With:LINA ZENDEJAS MD, [facility], Internal Medicine Address: [facility] [address] [place] [phone] When:2-4 days [facility] 09-19-2023 Note Discharge Instructions Thank you for allowing [facility] to assist you with your healthcare needs. The following is importantdischarge information regarding your hospital visit. Diagnosis from Today's Visit Atrial fibrillation Tachycardia What to Do Next Instructions from Your Care Team No qualifying data available. Post Acute Orders No qualifying data available. You Need to Schedule the Following Appointments Follow Up with LINA ZENDEJAS MD, [facility], Internal Medicine When Within 2-4 days Where: [facility] [address] [place] [address] [phone] Allergies Bactrim (Itching, Rash) Cigarette smoke (Watery [...] vision Extreme drowsiness, confusion, dizziness, or fainting [phone] [employer] [address] [facility], [place] [address]. All rights reserved. This information is not intended as a substitute for professional medical care. Always follow yourhealthcare professional's instructions. Additional Information VACCINATE! IT SAVES LIVES! Members of the community who have not yet received the COVID-19 vaccine and would like to receive it can visit one of [facility] vaccine clinics. There are many vaccine clinic locations within the [facility]. For locations and available times, please visit www.gettheshot.coronavirus.[place].gov/. It is important to note that some COVID mobile vaccine clinics are held outdoors and may be canceled in rainy or stormy conditions. To learn more about pediatric vaccinations (ages 5-11), we invite you to visit the [facility] webpage. https://www.akronHigh Street Partnerss.org/pages/9244-Fnttw-Cnwyembfsqc-Hywvpgcxgp-Yzxdb-Jtx stions.htmlTo learn more about the COVID-19 vaccine, we invite you to visit the CDC website for a list of frequently asked questions. https://www.cdc.gov/coronavirus/2019-ncov/vaccines/faq.html [facility] Patient Portal Access Instructions: Stay connected with your healthcare team and access your personal medical information anytime with the [facility] Patient Portal. If you would like a full copy of your medical records please contact the [facility] Medical Records Department Saturday through Saturday between 8a.m. and 4:30p.m. Please follow the directions below to access the portal: 1.Access the email account you provided upon registration to the hospital.2.Look for an invitation email from [facility].3.Open the email and access the invitation link: Accept Invitation to [facility]4.Fill in the required اللعي to create your account. Sign into www.CE Info Systems with your username and password that you [...] you will allow to register on the [facility] Patient Portal for access to your information. You can also access the [facility] Patient Portal on the [employer]. Simply click on Health Records under [employer] and then click on the [facility] logo. HOW TO SAFELY DISPOSE OF PRESCRIPTION [...] Call your local pharmacy or go to [email or web address].[employer]/[email or web address] to find one close to you.3.Make use of household items: Use cat litter or old coffee grounds to dispose medications if other options arenot available. Mix your drugs with these household products, seal them in an airtight container andthrow it into the garbage. Call [facility]: [phone] to be sure your drugs can be [...] been reviewed and explained to me and I,YUE ANGULO understand my current condition and have read and understand these discharge instructions. I have received a written copy of the plan/instructions. If I have questions, I am aware that I should contact my doctor. 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 Signature: Date/Time: Relationship to Patient: Witness Name/Signature: Date/Time: [facility]09-19-2023 Note ORIGINAL EXAMINATION: ONE XRAY VIEW OF [...] Date: 06/11/2023 11:36:50 AM Ordering Provider: [facility] [place] Note Sinus rhythm Probable left atrial enlargement Low voltage, precordial leads Electronic Signature: JAVIER CHEN MD 06/11/2023 10:51:24[facility] 09-19-2023 NoteAtrial fibrillation Borderline repolarization abnormality Minimal ST elevation, lateral leads Baseline wander in lead(s) V6 Electronic Signature: JAVIER CHEN MD 06/11/2023 10:19:52[facility] 09-15-2023 Hospital Discharge instructions Patient Education 06/07/2023 [...] pain management. You can take your usual xzau-adu-kuqcoyv pain medication unless otherwise directed. HAND WASHING [...] Up Care 06/04/2023 15:45:35 With:LINA ZENDEJAS MD, [facility], Internal Medicine Address: [facility] [address] [place] [phone]- [phone] When: Unknown Comments:Follow-up as scheduled [facility] 09-15-2023 Summary of episode note Discharge Instructions Thank you for allowing [facility] to assist you with your healthcare needs. The following is importantdischarge information regarding your hospital visit. Your Care Team LINA ZENDEJAS MD What to do next Scheduled Follow-Up Appointments Appointment Type When Where Contact InformationCV OV 06/14/2023 11:00 AM EDT [facility] [place] [facility] CV OV 07/03/2023 03:45 PM EDT [facility] [place] CV OV 09/20/2023 03:30 PM EST [facility] [place] CV OV 11/22/2023 04:30 PM EST [facility] [place] Follow Up Appointments Follow Up with LINA ZENDEJAS MD, [facility], Internal Medicine When Why: Follow-up as scheduled Where: [facility] [address] [place] [phone]- [phone] Allergies Bactrim (Itching, Rash) Cigarette smoke (Watery [...] pain management. You can take your usual ofgs-zcj-wqwatpt pain medication unless otherwise directed. HAND WASHING [...] to receive it can visit one of [facility] vaccine clinics. There are many vaccine clinic locations within the [facility]. For locations and available times, please visit https://gettheshot.coronavirus.[place].gov/. It is important to note that some COVID mobile vaccine clinics are held outdoors and may be canceled in rainy or stormy conditions. To learn more about pediatric vaccinations (ages 5-11), we invite you to visit the [facility] webpage. https://www.[facility].org/pages/7612-Ecbah-Cqkqyrnuwvi-Mlaqvkhbkg-Kujrh-Pnb stions.htmlTo learn more about the COVID-19 vaccine, we invite you to visit the CDC website for a list of frequently asked questions.https://www.cdc.gov/coronavirus/2019-ncov/vaccines/faq.html [facility] Patient Portal Access Instructions: Stay connected with your healthcare team and access your personal medical information anytime with the [facility] Patient Portal. Please follow the directions below to create your [facility] account: 1.Access the email account you provided upon registration to the hospital/physician office.2.Look for an invitation email from [facility].3.Open the email and access the invitation link: AcceptInvitation to [facility].4.Fill in the required العلي to create your account. To access your account, visit [email or web address]. Click the blue button labeled Access Patient [...] who you will allowto register on the [facility] Patient Portal for access to your information. You can also access the [facility] Patient Portal on the [facility] aleena. Simply click on Patient Portal and then log into your account. If you would like to receive a full copy of your medical records, please contact the [facility] Medical Records Department by calling [phone], Saturday through Saturday between 8 a.m. and [...] Call your local pharmacy or go to http://bit.ly/9W4Oy8y to find one close to you.3.Make use of household items: Use cat litter or old coffee grounds to dispose medications if other options arenot available. Mix your drugs with these household products, seal them in an airtight container andthrow it into the garbage. Call [facility]: [phone] to be sure your drugs can be [...] aware that I should contact my doctor. 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 Signature: Date/Time: Relationship to Patient: Witness Name/Signature: Date/Time: [facility] [id number] NoteSINUS RHYTHM PROBABLE LEFT ATRIAL ENLARGEMENT LOW VOLTAGE, PRECORDIAL LEADS ABNORMAL R-WAVE PROGRESSION, EARLY TRANSITION Electronic Signature: GEOFFREY PEÑA MD 06/07/2023 11:24:49[facility] 09-08-2023 Note ORIGINAL EXAMINATION: ONE [...] Sign Date: 05/31/2023 7:54:07 PM Ordering Provider: [facility]08-14-2023 Hospital Discharge instructions Patient Education 05/06/2023 [...] may be diagnosed with: Electrocardiogram (ECG). 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 This device records your heartbeats for 24 [...] 09/09/2006 Document Revised: 10/30/2018 Document Reviewed: 10/31/2018 [employer] Patient Education 2020 [employer]. Follow Up Care 04/10/2023 09:52:41 With:AMARIS RUIZ Address: [address] [facility] [address] [facility] [place] [address]- [phone] When:05/20/2023 10:00:00 Comments:Please obtain labs and chest x-ray prior to this appointment With:[facility] Address: When: Unknown Comments:Home health care RN, a nurse will be calling you before coming out to the home. [phone]. Call with any questions or concerns. With:LINA ZENDEJAS MD, [facility], Internal Medicine Address: [facility] [address] [place] [phone]- [phone] When: Unknown Comments:PLEASE CALL THIS OFFICE TO SCHEDULE A HOSPITAL FOLLOW UP APPOINTMENT. With:HANK MCMULLEN MD Address: [address] [place] [address] [address] [facility] [place] [address]- [phone] When:09/20/2023 15:30:00 [facility] 08-14-2023 Note Discharge Instructions Thank you for allowing [facility] to assist you with your healthcare needs. [...] With Where Contact InformationTelephone 05/08/2023 08:00 AM EDT AMARIS RUIZ [facility] CTS OV Post Op 05/20/2023 10:00 AM EDT AMARIS RUIZ [facility] CV OV 09/20/2023 03:30 PM EST [facility] CV OV 11/22/2023 04:30 PM EST [facility] Follow Up Appointments Follow Up with HANK MCMULLEN MD When 09/20/2023 03:30 PM EST Where: [address] [facility] [address] [place] [address]- [phone] Follow Up with AMARIS RUIZ When 05/20/2023 10:00 AM EDT Why: Please obtain labs and chest x-ray prior to this appointment Where: [address] [facility] [address] [facility] [place] [address]- [phone] Follow Up with [facility] When Why: Home health care RN, a nurse will be calling you before coming out to the home. [phone]. Call with any questions or concerns. Where: Follow Up with LINA ZENDEJAS MD, [facility], Internal Medicine When Why: PLEASE CALL THIS OFFICE TO SCHEDULE A HOSPITAL FOLLOW UP APPOINTMENT. Where: [facility] [address] [place], [place] [address]- [phone] The Following Activity and Diet Have Been [...] and have the chest x-ray done at [facility], 05/06/23 12:34:00 EDT Other Therapies [...] Once a day Refills: 2 Pickup at [facility] New oxyCODONE (oxyCODONE 5 mg oral tablet ( IMMEDIATE release )) 1 tab(s) by mouth Every 6 hours as needed for Pain, scale 7-10 Atrial fibrillation s/p RICHARD Telles, 04/30/2023 Acute pain Duration: 7 Days Pickup at [facility] Changed acetaminophen (Tylenol 325 mg oral capsule) 650 Milligram by mouth Every 4 hours as needed for Pain, scale 1-6 Changed aspirin (aspirin 325 mg oral delayed release tablet) 1 tab(s) by mouth Every 8 hours Duration: 5 Days after 5 days, then resume ASA 81 mg daily do not crush or chew Pickup at [facility] Changed aspirin (aspirin 81 mg oral delayed release tablet) 1 tab(s) by mouth Once a day Pickup at [facility] Unchanged bumetanide (bumetanide 1 mg [...] Two (2) times a day Pharmacy Information [facility]: [address] [place] [address] [phone] Please take this list to your next [...] may be diagnosed with: Electrocardiogram (ECG). 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 This device records your heartbeats for 24 [...] 09/09/2006 Document Revised: 10/30/2018 Document Reviewed: 10/31/2018 [employer] Patient Education 2020 [employer] Additional Information VACCINATE! IT SAVES LIVES! Members of the community who have not yet received the COVID-19 vaccine and would like to receive it can visit one of [facility] vaccine clinics. There are many vaccine clinic locations within the [facility]. For locations and available times, please visit https://gettheshot.coronavirus.[place].gov/. It is important to note that some COVID mobile vaccine clinics are held outdoors and may be canceled in rainy or stormy conditions. To learn more about pediatric vaccinations (ages 5-11), we invite you to visit the [facility] webpage. https://www.akTilcks.org/pages/1553-Ezwlu-Pawzfvrvnjj-Jyzlkjxbky-Qezkb-Ocq stions.htmlTo learn more about the COVID-19 vaccine, we invite you to visit the CDC website for a list of frequently asked questions.https://www.cdc.gov/coronavirus/2019-ncov/vaccines/faq.html [facility] Patient Portal Access Instructions: Stay connected with your healthcare team and access your personal medical information anytime with the [facility] Patient Portal. Please follow the directions below to create your [facility] account: 1.Access the email account you provided upon registration to the hospital/physician office.2.Look for an invitation email from [facility].3.Open the email and access the invitation link: AcceptInvitation to [facility].4.Fill in the required العلي to create your account. To access your account, visit [employer]OneCabelardot. Click the blue button labeled Access Patient [...] who you will allowto register on the [facility] Patient Portal for access to your information. You can also access the [facility] Fahrenheit[facility] Patient Portal on the [facility] aleena. Simply click on Patient Portal and then log into your account. If you would like to receive a full copy of your medical records, please contact the [facility] Medical Records Department by calling [phone], Saturday through Saturday between 8 a.m. and [...] Call your local pharmacy or go to http://[email or web address].[employer]/5O6Yr8c to find one close to you.3.Make use of household items: Use cat litter or old coffee grounds to dispose medications if other options arenot available. Mix your drugs with these household products, seal them in an airtight container andthrow it into the garbage. Call [facility]: [phone] to be sure your drugs can be [...] been reviewed and explained to me and I,YUE ANGULO understand my current condition and have read and understand these discharge instructions. I have received a written copy of the plan/instructions. If I have questions, I am aware that I should contact my doctor. 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 Signature: Date/Time: Relationship to Patient: Witness Name/Signature: Date/Time: [facility] [id number] Note Discharge Instructions Thank you for allowing [facility] to assist you with your healthcare needs. [...] Where Contact InformationTelephone 05/08/2023 08:00 AM AMARIS WEBB APRN-CASER [facility] CTS OV Post Op 05/20/2023 10:00 AM EDT AMARIS RUIZ [facility] CV OV 09/20/2023 03:30 PM EST [facility] CV OV 11/22/2023 04:30 PM EST [facility] Follow Up Appointments Follow Up with HANK MCMULLEN MD When 09/20/2023 03:30 PM EST Where: [address] [facility] [address] [facility] [place] [address]- [phone] Follow Up with AMARIS RUIZ When 05/20/2023 10:00 AM EDT Why: Please obtain labs and chest x-ray prior to this appointment Where: [address] [facility] [address] [facility] [place] [address]- [phone] Follow Up with [facility] When Why: Home health care RN, a nurse will be calling you before coming out to the home. [phone]. Call with any questions or concerns. Where: Follow Up with LINA ZENDEJAS MD, [facility], Internal Medicine When Why: PLEASE CALL THIS OFFICE TO SCHEDULE A HOSPITAL FOLLOW UP APPOINTMENT. Where: [facility] [address] [place] [address] [phone] The Following Activity and Diet Have Been [...] and or supplements as they may [facility]. What How Much When Why Instructions Last Dose New colchicine (colchicine 0.6 mg oral tablet) 1 tab(s) by mouth Once a day Refills: 2 Pickup at [facility] New oxyCODONE (oxyCODONE 5 mg oral tablet ( IMMEDIATE release )) 1 tab(s) by mouth Every 6 hours as needed for Pain, scale 7-10 Atrial fibrillation s/p RICHARD Telles, 04/30/2023 Acute pain Duration: 7 Days Pickup at [facility] Changed acetaminophen (Tylenol 325 mg oral capsule) 650 Milligram by mouth Every 4 hours as needed for Pain, scale 1-6 Changed aspirin (aspirin 325 mg oral delayed release tablet) 1 tab(s) by mouth Every 8 hours Pickup at [facility] Unchanged bumetanide (bumetanide 1 mg [...] Two (2) times a day Pharmacy Information [facility]: [address] [place] [address] [phone] Please take this list to your next [...] to receive it can visit one of [facility] vaccine clinics. There are many vaccine clinic locations within the [facility]. For locations and available times, please visit https://gettheshot.coronavirus.[place].gov/. It is important to note that some COVID mobile vaccine clinics are held outdoors and may be canceled in rainy or stormy conditions. To learn more about pediatric vaccinations (ages 5-11), we invite you to visit the [facility] webpage. https://www.[employer].org/pages/7635-Gveog-Dbpbslqtppd-Znvwqkfemc-Jrnbn-Axd stions.htmlTo learn more about the COVID-19 vaccine, we invite you to visit the CDC website for a list of frequently asked questions.https://www.cdc.gov/coronavirus/2019-ncov/vaccines/faq.html [facility] Patient Portal Access Instructions: Stay connected with your healthcare team and access your personal medical information anytime with the [facility] Patient Portal. Please follow the directions below to create your [facility] account: 1.Access the email account you provided upon registration to the hospital/physician office.2.Look for an invitation email from [facility].3.Open the email and access the invitation link: AcceptInvitation to [facility].4.Fill in the required العلي to create your account. To access your account, visit [employer]/K[employer] BiotechnologyOneChart. Click the blue button labeled Access Patient Portal and then log in with the username and password that you created in the steps above. You will be able to view your test results, lab results, a summary of your visits, upcoming appointments and more. There is also a convenient messaging option where you can send secure messages to your p saivider. In addition, you will have the ability to download any documents or summaries to your computer and/or send the information securely to a physician. Remember that your healthcare information is confidential, so carefully consider who you will allowto register on the [facility] Patient Portal for access to your information. You can also access the [facility] Patient Portal on the [facility] aleena. Simply click on Patient Portal and then log into your account. If you would like to receive a full copy of your medical records, please contact the [facility] Medical Records Department by calling [phone], Saturday through Saturday between 8 a.m. and [...] Call your local pharmacy or go to http://Innovate2/8W4Wm7q to find one close to you.3.Make use of household items: Use cat litter or old coffee grounds to dispose medications if other options arenot available. Mix your drugs with these household products, seal them in an airtight container andthrow it into the garbage. Call [facility]: [phone] to be sure your drugs can be [...] aware that I should contact my doctor. 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 Acute pericarditis (I30.9 - ICD-10-CM) Atrial fibrillation s/p Convergent Maze, RICHARD Clip, 04/30/2023 (I48.91 - ICD-10-CM) Ordered: oxyCODONE 5 mg oral tablet ( IMMEDIATE release ); Dose : 5 mg = 1 tab(s), Oral, q6hr, PRN Pain, scale 7-10, X 7 day(s), # 28 tab(s), 0 Refill(s), 05/13/23 10:23:00 EDT, Pharmacy: [facility], Atrial fibrillation s/p Convergent Maze, [...] qDay, # 30 tab(s), 2 Refill(s), [facility], 165, cm, 04/30/23 5:47:00 EDT, Height, [...] her atrial fibrillation in the 1 teens [id number]. Received IV Lopressor last night per EP. [...] 03:30 PM EST Where: [address] [facility] [place] [address]- [phone] Follow Up with AMARIS RUIZ When 05/20/2023 10:00 AM EDT Why: Please obtain labs and chest x-ray prior to this appointment Where: [address] [facility] [place] [address]- [phone] Follow Up with [facility] When Why: Home health care RN, a nurse will be calling you before coming out to the home. [phone]. Call with any questions or concerns. Where: Follow Up with LINA ZENDEJAS MD, [facility], Internal Medicine When Why: PLEASE CALL THIS OFFICE TO SCHEDULE A HOSPITAL FOLLOW UP APPOINTMENT. Where: [facility] [address] [place] [address]- [phone] Follow Up Appointments No qualifying data available. [...] and have the chest x-ray done at [facility], 05/06/23 12:34:00 EDT Discharge Diet [...] by CHAVA GAMEZ on 05/06/2023 06:12 PM [facility] [id number] Note Date of Service May 03, 2023 [...] spray(s), Topical, q1h sodium chloride nasal 0.65% Washburn 2 spray(s), Nostril, each, q2h trimethobenzamide 200 [...] by LIZETT SUH on 05/03/2023 03:36 PM [facility] [id number] Cardiology Progress note Date of Service 05/05/2023 [...] spray(s), Topical, q1h sodium chloride nasal 0.65% Washburn 2 spray(s), Nostril, each, q2h trimethobenzamide 200 [...] ECG review shows widespread ST elevation with CT depression, CT elevation and ST depression in aVR, as [...] HUSEYIN HERR MD on 05/05/2023 03:04 PM [facility] [id number] Cardiology Progress note Date of Service 05/04/2023 [...] spray(s), Topical, q1h sodium chloride nasal 0.65% Washburn 2 spray(s), Nostril, each, q2h trimethobenzamide 200 [...] ECG review shows widespread ST elevation with CT depression, CT elevation and ST depression in aVR, as [...] HUSEYIN HERR MD on 05/04/2023 12:43 PM [facility] [id number] Note Date of Service 05/05/2023 postop day [...] spray(s), Topical, q1h sodium chloride nasal 0.65% Washburn 2 spray(s), Nostril, each, q2h trimethobenzamide 200 [...] by TYLER BAIN on 05/05/2023 12:43 PM [facility] [id number] Cardiology Progress note Date of Service 05/05/2023 [...] spray(s), Topical, q1h sodium chloride nasal 0.65% Washburn 2 spray(s), Nostril, each, q2h trimethobenzamide 200 [...] ECG review shows widespread ST elevation with CT depression, CT elevation and ST depression in aVR, as [...] HUSEYIN HERR MD on 05/05/2023 03:04 PM [facility] [id number] Cardiology Progress note Date of Service 05/04/2023 [...] spray(s), Topical, q1h sodium chloride nasal 0.65% Washburn 2 spray(s), Nostril, each, q2h trimethobenzamide 200 [...] ECG review shows widespread ST elevation with CT depression, CT elevation and ST depression in aVR, as [...] HUSEYIN HERR MD on 05/04/2023 12:[address]12-2023 Note Date of Service 05/04/2023 postop day [...] her atrial fibrillation in the 1 teens [id number]. Received IV Lopressor last night per EP. [...] into atrial fibrillation with RVR around 1130 thismorning. Cardiology wants to keep her in the hospital at this time. Possible cardioversion again onay. Subjective Sitting in the chair, no specific [...] spray(s), Topical, q1h sodium chloride nasal 0.65% Washburn 2 spray(s), Nostril, each, q2h trimethobenzamide 200 [...] EDT Digitally Signed by TYLER BAIN on 05/04/2023 12:37 PM [facility] [id number] Note ORIGINAL EXAMINATION: ONE XRAY VIEW OF [...] Sign Date: 05/04/2023 8:17:28 AM Ordering Provider: [facility]08-12-2023 NoteSINUS RHYTHM LOW VOLTAGE, PRECORDIAL LEADS Electronic Signature: AMALIA CLAYTON MD 05/04/2023 20:48:23[facility] 08-11-2023 Cardiology Progress note Date [...] spray(s), Topical, q1h sodium chloride nasal 0.65% Washburn 2 spray(s), Nostril, each, q2h trimethobenzamide 200 [...] KE LOPEZ MD on 05/03/2023 04:26 PM [facility] [id number] Cardiology Progress note Date of Service 05/03/2023 [...] spray(s), Topical, q1h sodium chloride nasal 0.65% Washburn 2 spray(s), Nostril, each, q2h trimethobenzamide 200 [...] KE LOPEZ MD on 05/03/2023 04:26 PM [facility] [id number] Note Date of Service May 03, 2023 [...] kg (08/08/23) Current Weight: 79.8 kg (05/02/23) Medications Medications [...] spray(s), Topical, q1h sodium chloride nasal 0.65% Washburn 2 spray(s), Nostril, each, q2h trimethobenzamide 200 [...] by LIZETT SUH on 05/03/2023 03:36 PM [facility] [id number] Cardiology procedure note Date of Service May [...] from 100 to 120 bpm. 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 the patient [...] MACI HARDY MD on 05/05/2023 11:16 PM [facility] [id number] Note* Exam Date Time Procedure Performing Provider Status 05/03/23 1:59 PM Transesophageal Echo cardiogram - CV Auth (Verified) [facility] 08-11-2023 Anesthesiology Consult note Patient: YUE ANGULO Age: 62 years Sex: Female : [...] mg, 1 tab(s), Oral, qDay Sore Throat Washburn: 1 spray(s), Topical, q1h, PRN: Sore throat [...] spray(s), Topical, q1h sodium chloride nasal 0.65% Washburn 2 spray(s), Nostril, each, q2h trimethobenzamide 200 mg/2 mL Solution 200 mg 2 mL, Intramuscular, q6h Problem list: Medical Acute blood loss anemia / SNOMED CT 530237239 / Confirmed Anxiety / SNOMED CT 80348486 / Confirmed Atrial fibrillation / SNOMED CT 72560979 / Confirmed ATRIAL FIBRILLATION WITH RVR / SNOMED CT 4500676398 / Confirmed CHEST PAIN, ATYPICAL / SNOMED CT 831521774 / Confirmed Back pain / SNOMED CT 4898043870 / Confirmed CHEST WALL PAIN / SNOMED CT 947287917 / Confirmed Cirrhosis, non-alcoholic / SNOMED CT 138517004 / Confirmed Eczema / SNOMED CT 94548744 / Confirmed GERD - Gastro-esophageal reflux disease / SNOMED CT 9152356485 / Confirmed MTHFR gene mutation / SNOMED CT 1407562323 / Confirmed Hypertension / SNOMED CT 7123651011 / Confirmed REFUSED INFLUENZA VACCINE / SNOMED CT 307992024 / Confirmed Migraine / SNOMED CT 74996883 / Confirmed SYNCOPE, NEAR / SNOMED CT 4100171614 / Confirmed STEATOHEPATITIS, NONALCOHOLIC / SNOMED CT 1000471225 / Confirmed FARSHAD (obstructive sleep apnea) / SNOMED CT 057447082 / Confirmed Osteoarthritis / SNOMED CT 9360480490 / Confirmed ASD secundum / SNOMED CT 685868449 / Confirmed Thyroid enlargement / SNOMED CT 311556942 / Confirmed Urinary incontinence / SNOMED CT 3646959718 / Confirmed REFUSED PNEUMOCOCCAL VACCINE / SNOMED CT 6515291033 / Confirmed, Active Problems (35) Acute blood [...] Histories Past Medical History: Active Back pain (8396688802) Migraine (64916305) Urinary incontinence (1092594110) GERD - Gastro-esophageal reflux disease (5353081151) Thyroid enlargement (650862494) Eczema (34468814) Comments: 07/16/2013 EDT 11:50 SEANT - KWAN Stanley Syl Belinda of back Resolved DEHYDRATION (95274304): Resolved. DIARRHEA ([id number]): Resolved. Comments: - acute Family History: Cancer Father () Brother Cardiac pacemaker Father () Sister Atrial fibrillation Sister Mother High blood pressure Mother Heart failure Father () Stroke Mother Sister Malignant tumor of ovary Sister Pulmonary embolism Daughter Malignant tumor of lung Father () Leukemia Brother Deep vein thrombosis Daughter Procedure history: Echocardiogram ([id number]) on 02/06/2023 at 62 Years. Comments: 02/13/2023 14:07 EDT - Elana Vega MA (ABR-OE) 1. Left ventricle: The cavity [...] level shunt by color doppler. Holter monitor ([id number]) on 11/17/2022 at 62 Years. 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 Rare isolated premature atrial and ventricular beats were noted in singles as well. No atrial ventricular pauses observed. Cardioversion ([id number]) on 10/09/2022 at 62 Years. Transesophageal echocardiogram ([id number]) on 09/14/2022 at 62 Years. Comments: 09/30/2022 [...] closure device. 2. No RICHARD thrombus. Cardioversion ([id number]) on 09/14/2022 at 62 Years. Cardiac catheterization ([id number]) on 08/29/2022 at 62 Years. Comments: 09/30/2022 18:00 Elana Paris MA (ABR-OE) No significant obstructive CAD. Normal LVEDP. EGD - Esophagogastroduodenoscopy (7310238853) in 2021 at 62 Years. Echocardiogram ([id number]) on 08/15/2022 at 61 Years. Comments: 09/30/2022 18:01 Elana Paris MA (ABR-OE) 1. Limited ECHO for assessment of pericardial effusion. 2. Left ventricle: Systolic function is normal. 3. Pericardium, extracardiac: A rebs-pi-vdcnjopc, free-flowing pericardial effusion is identified posterior to [...] atrial pressure is 3 mm Hg. Echocardiogram ([id number]) on 08/08/2022 at 61 Years. Comments: 09/30/2022 [...] PFO - Closure of patent foramen ovale ([id number]) on 08/07/2022 at 61 Years. Echocardiogram ([id number]) on 08/07/2022 at 61 Years. Comments: 09/30/2022 18:03 Elana Paris MA (ABR-OE) Pericardium, extracardiac: A small to moderate posterior pericardial effusion is identified size 1.3 cm. There is no RV diastolic collapse noted. Previous TTE from March 2022 shows similar findings. Echocardiogram ([id number]) on 08/07/2022 at 61 Years. Comments: 09/30/2022 18:03 Elana Paris MA (ABR-OE) 1. Pericardium, extracardiac: A small pericardial effusion is identified. Features are not consistent with tamponade physiology. 2. Inferior vena cava: The IVC is trivially dilated Transesophageal echocardiogram ([id number]) on 08/07/2022 at 61 Years. Comments: 09/30/2022 [...] did not change post procedure Transesophageal echocardiogram ([id number]) on 06/15/2022 at 61 Years. Comments: 09/30/2022 [...] 0.5 cm area noted with a predominant jfpx-cy-dkykz shunt on color Doppler as well as agitated saline study. Some right to left shunting noted with provocative maneuvers. 8. Inferior vena cava: The IVC is dilated at 2.2 cm. 9. Pericardium, extracardiac: A small pericardial effusion is identified Spirometry ([id number]) on 04/24/2022 at 61 Years. Comments: 09/30/2022 18:06 Elana Paris MA (ABR-OE) 1. Moderate degree of restrictive airway disease. 2. Bronchodilator therapy has not demonstrated any significant change indicating that the patient will not benefit from continued bronchodilator therapy. 3. No evidence of diffusion defect. Cardiac catheterization ([id number]) on 04/13/2022 at 61 Years. Dilation and curettage (58469322) in 2016 at 56 Years. Hysteroscopy (387898769) in 2016 at 56 Years. Colonoscopy (500263927) in 2011 at 52 Years. Bunionectomy (01464197) in 2007 at 48 Years. Tubal ligation (722214952) in 1992 at 33 Years. Suspension of bladder (1893975) in 1991 at 32 Years. Tonsillectomy (423450367) in 1963 at 4 Years. Social History [...] (MAY 03:) Heart Rate MonitoredH 117bpm (MAY 03:) Resp Rate 18 br/min (MAY 03:) AGB309 mmHg (MAY 03:) DBP79 mmHg (AUG 11 12:01) General: Alert and oriented. Airway: Normal temporomandibular joint mobility, Normal mouth, Normal throat, Normal neck range of motion, Trachea midline. Mallampati classification: II (soft palate, fauces, uvula visible). Head: Normocephalic. Dentition Evaluation: Intact, Own teeth, Denies loose/chipped teeth. Neck: Supple. Respiratory: Lungs are clear to auscultation. Cardiovascular: Normal rate. Heart Sounds: Normal. Gastrointestinal: Soft. Musculoskeletal Normal range of motion. Integumentary: Intact, Warm, Dry, [place]. Neurologic: Alert, Oriented. Review / Management Results [...] H 37.3(APR 30) . Assessment and Plan [place] [employer] Anesthesiologists (ASA) physical status classification: [...] DEREK ALMENDAREZ DO on 05/03/2023 01:14 PM [facility] [id number] Note Date of Service 05/03/2023 Chief Complaint [...] spray(s), Topical, q1h sodium chloride nasal 0.65% Washburn 2 spray(s), Nostril, each, q2h trimethobenzamide 200 [...] by GEORGE SELF on 05/03/2023 12:06 PM [facility] [id number] Note ORIGINAL EXAMINATION: ONE XRAY VIEW OF [...] Lilliam Burnham MD Preliminary Report By: Jamar Jw Electronically signed By Lilliam Burnham MD Dictated Date: 05/03/2023 6:30:39 AM Prelim Date: 05/03/2023 6:33:08 AM Sign Date: 05/03/2023 7:16:48 AM Ordering Provider: [facility]08-10-2023 Note* Exam Date Time Procedure Performing Provider Status 05/02/23 6:18 PM Echocardiogram, Adult - CV Auth (Verified) [facility] 08-10-2023 Cardiology Consult note Date [...] ST ELEVATION, CONSIDER ANTEROLATERAL INJURY Electronic Signature: JOSE FELICIANO MD 05/02/2023 08:15:04 Assessment/Plan Acute blood [...] pain along with diffuse ST elevation and CT depression on EKG. Currently being treated for [...] REMOVAL), 1 EA, Miscellaneous, q72h Sore Throat Washburn, 1 spray(s), Topical, q1h, PRN tadalafil, 20 [...] KE LOPEZ MD on 05/02/2023 04:46 PM [facility] CenterNmatkryq98-24-2869 Cardiology Consult note Date of Service 05/02/2023 [...] ST ELEVATION, CONSIDER ANTEROLATERAL INJURY Electronic Signature: JOSE FELICIANO MD 05/02/2023 08:15:04 Assessment/Plan Acute blood [...] pain along with diffuse ST elevation and CT depression on EKG. Currently being treated for [...] REMOVAL), 1 EA, Miscellaneous, q72h Sore Throat Washburn, 1 spray(s), Topical, q1h, PRN tadalafil, 20 [...] SARS-CoV-2 mRNA (tozinameran) vaccine: 0 unknown unit (01/15/22) tetanus/diphth/pertuss (Tdap) adult/adol: 0 unknown unit (06/25/21) Digitally Signed by KE LOPEZ MD on 05/02/2023 04:46 PM [facility] [id number] Anesthesiology Consult note Patient: YUE ANGULO Age: 62 years Sex: Female : [...] QUINCY CARIAS DO on 05/02/2023 02:03 PM [facility] CenterSiaualbv90-83-4069 NoteATRIAL FIBRILLATION LOW VOLTAGE, PRECORDIAL LEADS BORDERLINE T ABNORMALITIES, INFERIOR LEADS BORDERLINE ST ELEVATION, LATERAL LEADS PROLONGED QT INTERVAL Electronic Signature: JOSE FELICIANO MD 05/03/2023 13:30:58[facility] 08-10-2023 NoteATRIAL FIBRILLATION ABNORMAL R-WAVE PROGRESSION, EARLY TRANSITION BORDERLINE T ABNORMALITIES, INFERIOR LEADS ST ELEVATION, CONSIDER LATERAL INJURY Electronic Signature: JOSE FELICIANO MD 05/03/2023 13:30:50[facility] 08-10-2023 Cardiology Consult note Date [...] ECG review shows widespread ST elevation with CT depression, CT elevation and ST depression in aVR, as well as downsloping TP segment. On exam she has triphasic pericardial friction rub. Chronic angiogram 08/2022 without significant CAD. Plan: ESR, CRP, troponin trend Toradol and colchicine Consult we will continue to follow Discussed with Dr. Sierra over the phone, discussed impression with Dr. Ford Discussed and examined with Dr. Kemi Hernandez MD Certified Court Interpreter Cortext or Pager [phone] Problem List/Past Medical History Ongoing Acute blood [...] 05/01/2023 01:11 AM Digitally Signed by MAYO HERNADNEZ MD on 05/01/2023 09:26 AM [facility] [id number] Note ORIGINAL EXAMINATION: TWO XRAY VIEWS OF [...] Sign Date: 05/02/2023 7:43:23 AM Ordering Provider: [facility]08-09-2023 Note ORIGINAL EXAMINATION: ONE XRAY VIEW OF [...] Sign Date: 05/01/2023 2:15:58 PM Ordering Provider: [facility]08-09-2023 Note ORIGINAL EXAMINATION: ONE XRAY VIEW OF [...] Sign Date: 05/02/2023 12:08:47 PM Ordering Provider: [facility]08-09-2023 Cardiology Consult note Date of Service 05/01/2023 [...] ECG review shows widespread ST elevation with CT depression, CT elevation and ST depression in aVR, as well as downsloping TP segment. On exam she has triphasic pericardial friction rub. Chronic angiogram 08/2022 without significant CAD. Plan: ESR, CRP, troponin trend Toradol and colchicine Consult we will continue to follow Discussed with Dr. Sierra over the phone, discussed impression with Dr. Ford Discussed and examined with Dr. Kemi Hernandez MD Certified Court Interpreter Cortext or Pager [phone] Problem List/Past Medical History Ongoing Acute blood [...] MAYO HERNANDEZ MD on 05/01/2023 09:26 AM [facility] [id number] NoteSINUS RHYTHM ACUTE PERICARDITIS Electronic Signature: GEOFFREY DEWEY MD 05/01/2023 17:32:44[facility] 08-08-2023 NoteSINUS RHYTHM ABNORMAL R-WAVE PROGRESSION, EARLY TRANSITION INFERIOR INFARCT, ACUTE (LCX) ST ELEVATION, CONSIDER ANTEROLATERAL INJURY Electronic Signature: JOSE FELICIANO MD 05/02/2023 08:15:04[facility] 08-08-2023 Cardiology Consult note Date [...] when she has a PAC she has pain. And this could just be palpitation she is feeling considering the postprocedural inflammation. Overall the patient is doing quite well. Collaboration with FINANCIAL OPERATIONS CLERK is on the floor and EP avoid [...] by LIZETT SUH on 04/30/2023 02:51 PM [facility] [id number] Anesthesiology Progress note Pt c/o severe postop pain despite fentanyl administration. Discussed with pt her morphine and hydromorphone allergies. States morphine is pruritus and hydromorphone much more severe. Pt is willing torevisit morphine d/t severity of pain, Will administer morphine 2 mg iv with diphenhydramine 25 mg iv Digitally Signed by QUINCY CARIAS DO on 04/30/2023 03:31 PM [facility] [id number] Cardiology Consult note Date of Service April [...] when she has a PAC she has pain. And this could just be palpitation she is feeling considering the postprocedural inflammation. Overall the patient is doing quite well. Collaboration with FINANCIAL OPERATIONS CLERK is on the floor and EP avoid [...] by LIZETT SUH on 04/30/2023 02:51 PM [facility] [id number] NoteSINUS RHYTHM WITH FIRST DEGREE AV BLOCK ABNORMAL R-WAVE PROGRESSION, EARLY TRANSITION Electronic Signature: GEOFFREY DEWEY MD 05/01/2023 17:29:32[facility] 08-08-2023 Note ORIGINAL EXAMINATION: ONE [...] Sign Date: 04/30/2023 11:41:52 AM Ordering Provider: [facility]08-08-2023 Note* Exam Date Time Procedure Performing Provider Status 04/30/23 8:54 AM [facility] NoteATRIAL FIBRILLATION WITH OCCASIONAL VENTRICULAR PREMATURE COMPLEXES ABNORMAL ECG Electronic Signature: GEOFFREY DEWEY MD 05/01/2023 17:28:56[facility] 08-08-2023 Anesthesiology Consult note Patient: YUE ANGULO Age: 62 years Sex: Female : [...] qDay, # 30 tab(s), 3 Refill(s), Pharmacy: [facility], 167.6, cm, 04/08/23 13:33:00 EDT, Height, kg, 04/08/2313:33:00 EDT, Dosing Weight Tadalafil (Eqv-Cialis) 20 mg oral tablet: Dose : 20 mg = 1 tab(s), Oral, BID, # 60 tab(s), 2 Refill(s), Pharmacy: [facility], 167.6, cm, 03/25/23 14:22:00 EDT, Height Xarelto 20 mg oral tablet: Dose : 20 mg = 1 tab(s), Oral, qDay, # 30 tab(s), 11 Refill(s), Pharmacy: [facility], 167, cm, 11/21/22 15:18:00 EST, Height, 78.5 aspirin 81 mg oral delayed release tablet: Dose : 81 mg = 1 tab(s), Oral, Daily, # 30 tab(s), 6 Refill(s), Pharmacy: [facility], 167, cm, 10/16/22 9:45:00 EST, Height, kg, 10/16/22 9:45:00 EST, Dosing Weight bumetanide 1 mg oral tablet: Dose : 1 mg = 1 tab(s), Oral, Daily, PRN Swelling/weight gain, # 30 tab(s), 2 Refill(s), Pharmacy: [facility], 167.6, cm, 07/31/22 9:04:00 EST, Height, [...] Problem list: Medical Anxiety / SNOMED CT 83866578 / Confirmed Atrial fibrillation / SNOMED CT 32159697 / Confirmed ATRIAL FIBRILLATION WITH RVR / SNOMED CT 6963181793 / Confirmed CHEST PAIN, ATYPICAL / SNOMED CT 419061254 / Confirmed Back pain / SNOMED CT 7826649159 / Confirmed CHEST WALL PAIN / SNOMED CT 633256959 / Confirmed Cirrhosis, non-alcoholic / SNOMED CT 937803331 / Confirmed Eczema / SNOMED CT 86816034 / Confirmed GERD - Gastro-esophageal reflux disease / SNOMED CT 9298021443 / Confirmed MTHFR gene mutation / SNOMED CT 9016341861 / Confirmed Hypertension / SNOMED CT 7078072974 / Confirmed REFUSED INFLUENZA VACCINE / SNOMED CT 362049684 / Confirmed Migraine / SNOMED CT 46117213 / Confirmed SYNCOPE, NEAR / SNOMED CT 3985636699 / Confirmed STEATOHEPATITIS, NONALCOHOLIC / SNOMED CT 0971959411 / Confirmed FARSHAD (obstructive sleep apnea) / SNOMED CT 867252043 / Confirmed Osteoarthritis / SNOMED CT 6247959169 / Confirmed ASD secundum / SNOMED CT 461578724 / Confirmed Thyroid enlargement / SNOMED CT 487382567 / Confirmed Urinary incontinence / SNOMED CT 2523019301 / Confirmed REFUSED PNEUMOCOCCAL VACCINE / SNOMED CT 4749713050 / Confirmed, Active Problems (34) Anxiety Anxiety [...] Histories Past Medical History: Active Back pain (1821184448) Migraine (65060845) Urinary incontinence (2761267740) GERD - Gastro-esophageal reflux disease (1213574403) Thyroid enlargement (962603060) Eczema (09749882) Comments: 07/16/2013 EDT 11:50 KWAN May of back Resolved DEHYDRATION (63501916): Resolved. DIARRHEA (038860144): Resolved. Comments: - acute Family History: Cancer Father () Brother Cardiac pacemaker Father () Sister Atrial fibrillation Sister Mother High blood pressure Mother Heart failure Father () Stroke Mother Sister Malignant tumor of ovary Sister Pulmonary embolism Daughter Malignant tumor of lung Father () Leukemia Brother Deep vein thrombosis Daughter Procedure history: Echocardiogram ([id number]) on 02/06/2023 at 62 Years. Comments: 02/13/2023 [...] level shunt by color doppler. Holter monitor ([id number]) on 11/17/2022 at 62 Years. 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 Rare isolated premature atrial and ventricular beats were noted in singles as well. No atrial ventricular pauses observed. Cardioversion ([id number]) on 10/09/2022 at 62 Years. Transesophageal echocardiogram ([id number]) on 09/14/2022 at 62 Years. Comments: 09/30/2022 [...] closure device. 2. No RICHARD thrombus. Cardioversion ([id number]) on 09/14/2022 at 62 Years. Cardiac catheterization ([id number]) on 08/29/2022 at 62 Years. Comments: 09/30/2022 18:00 Elana Paris MA (ABR-OE) No significant obstructive CAD. Normal LVEDP. EGD - Esophagogastroduodenoscopy (7017248322) in 2021 at 62 Years. Echocardiogram ([id number]) on 08/15/2022 at 61 Years. Comments: 09/30/2022 18:01 Elana Paris MA (ABR-OE) 1. Limited ECHO for assessment of pericardial effusion. 2. Left ventricle: Systolic function is normal. 3. Pericardium, extracardiac: A qrmc-hr-rlslxipi, free-flowing pericardial effusion is identified posterior to [...] atrial pressure is 3 mm Hg. Echocardiogram ([id number]) on 08/08/2022 at 61 Years. Comments: 09/30/2022 [...] PFO - Closure of patent foramen ovale ([id number]) on 08/07/2022 at 61 Years. Echocardiogram ([id number]) on 08/07/2022 at 61 Years. Comments: 09/30/2022 18:03 Elana Paris MA (ABR-OE) Pericardium, extracardiac: A small to moderate posterior pericardial effusion is identified size 1.3 cm. There is no RV diastolic collapse noted. Previous TTE from March 2022 shows similar findings. Echocardiogram ([id number]) on 08/07/2022 at 61 Years. Comments: 09/30/2022 18:03 Elana Paris MA (ABR-OE) 1. Pericardium, extracardiac: A small pericardial effusion is identified. Features are not consistent with tamponade physiology. 2. Inferior vena cava: The IVC is trivially dilated Transesophageal echocardiogram ([id number]) on 08/07/2022 at 61 Years. Comments: 09/30/2022 [...] did not change post procedure Transesophageal echocardiogram ([id number]) on 06/15/2022 at 61 Years. Comments: 09/30/2022 [...] 0.5 cm area noted with a predominant keud-ha-xqxqf shunt on color Doppler as well as agitated saline study. Some right to left shunting noted with provocative maneuvers. 8. Inferior vena cava: The IVC is dilated at 2.2 cm. 9. Pericardium, extracardiac: A small pericardial effusion is identified Spirometry ([id number]) on 04/24/2022 at 61 Years. Comments: 09/30/2022 18:06 Elana Paris MA (ABR-OE) 1. Moderate degree of restrictive airway disease. 2. Bronchodilator therapy has not demonstrated any significant change indicating that the patient will not benefit from continued bronchodilator therapy. 3. No evidence of diffusion defect. Cardiac catheterization ([id number]) on 04/13/2022 at 61 Years. Dilation and curettage ([id number]) in 2016 at 56 Years. Hysteroscopy ([id number]) in 2016 at 56 Years. Colonoscopy ([id number]) in 2011 at 52 Years. Bunionectomy ([id number]) in 2007 at 48 Years. Tubal ligation (104659635) in 1992 at 33 Years. Suspension of bladder (6199459) in 1991 at 32 Years. Tonsillectomy (740161442) in 1963 at 4 Years. 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 Assessment and Plan [place] Society of Anesthesiologists (ASA) physical status classification: [...] QUINCY CARIAS DO on 04/30/2023 05:57 AM [id number] Miscellaneous Notes* Telephone Encounter - Madiha Mahan LPN - 02/22/2023 1:18 PM EDT Patient calling was seen in [facility] 02[facility]19 and asking for copy of xray report to be faxed to [place] Dr. Dr Ha Pact Team 3 fax number [phone]. Printed report and faxed as requested. [facility] NoteHNO ID: [id number] Author: RT Milo(R) Service: Radiology Author Type: Technologist Type: Progress Notes Filed: 02/19/2023 4:52 PM Note Text: Radiology Service Progress Note PATIENT NAME: Yue Angulo DATE OF SERVICE: February 19, 2023 [...] BY: RT Milo(R) February 19, 2023 4:42 [facility]05-30-2023 NoteHNO ID: [id number] Author: Erika Elizalde APRN.CASER Service: ? Author Type: Nurse Practitioner Type: Progress Notes Filed: 02/19/2023 5:23 PM Note Text: CC: Patient presents with: Toe Injury: left 2nd toe bruising and painful, bilateral knees after fall x this am HPI Yue Angulo is a 62 year old female [...] Patient agreeable to treatment plan. Erika Elizalde, YENIFER.[facility]05-30-2023 History of Present illness Narrative* Nava Child, RT(R) - 02/19/2023 4:40 PM EDT Radiology Service Progress Note PATIENT NAME: Yue Angulo DATE OF SERVICE: February 19, 2023 [...] BY: RT Milo(R) February 19, 2023 4:42 PM documented in this encounterD[facility]23 Hospital Discharge instructions Patient Education 01/31/2023 10:09:40 [...] vision Extreme drowsiness, confusion, dizziness, or fainting 0336-4263 [employer] [address] [facility], [place] [address]. All rights reserved. This information is not intended as a substitute for professional medical care. Always follow yourhealthcare professional's instructions. Follow Up Care 01/31/2023 08:28:04 With:JOSE FELICIANO MD Address: [address] [facility] [address] [facility] [place] [address]- [phone] When:2-4 days [facility] Note Discharge Instructions Thank you for allowing [facility] to assist you with your healthcare needs. The following is importantdischarge information regarding your hospital visit. Diagnosis from Today's Visit Atrial fibrillation Chest pressure - Adult Palpitations What to Do Next Instructions from Your Care Team No qualifying data available. Post Acute Orders No qualifying data available. You Need to Schedule the Following Appointments Follow Up with JOSE FELICIANO MD When Within 2-4 days Where: [address] [facility] [address] [facility] [place] [address] [phone] Allergies predniSONE Bactrim Cigarette smoke Dilaudid HYDROmorphone [...] vision Extreme drowsiness, confusion, dizziness, or fainting 4745-0177 [employer] [address] [place] [address]. All rights reserved. This information is not intended as a substitute for professional medical care. Always follow yourhealthcare professional's instructions. Additional Information VACCINATE! IT SAVES LIVES! Members of the community who have not yet received the COVID-19 vaccine and would like to receive it can visit one of [facility] vaccine clinics. There are many vaccine clinic locations within the [facility]. For locations and available times, please visit www.[email or web address].[place].gov/. It is important to note that some COVID mobile vaccine clinics are held outdoors and may be canceled in rainy or stormy conditions. To learn more about pediatric vaccinations (ages 5-11), we invite you to visit the [facility] webpage. https://www.[facility].org/pages/8663-Mkzxg-Ddddjaxesbe-Qgyucpsczx-Vsqng-Fjz stions.htmlTo learn more about the COVID-19 vaccine, we invite you to visit the CDC website for a list of frequently asked questions. https://www.cdc.gov/coronavirus/2019-ncov/vaccines/faq.html [facility] Patient Portal Access Instructions: Stay connected with your healthcare team and access your personal medical information anytime with the [facility] Patient Portal. If you would like a full copy of your medical records please contact the [facility] Medical Records Department Saturday through Saturday between 8a.m. and 4:30p.m. Please follow the directions below to access the portal: 1.Access the email account you provided upon registration to the [facility].2.Look for an invitation email from [facility].3.Open the email and access the invitation link: Accept Invitation to [facility]4.Fill in the required العلي to create your account. Sign into www.[employer] with your username and password that you [...] you will allow to register on the [facility] Patient Portal for access to your information. You can also access the [facility] Patient Portal on the [employer]. Simply click on Health Records under Ultrasound Medical DevicesData and then click on the [employer] logo. HOW TO SAFELY DISPOSE OF PRESCRIPTION [...] Call your local pharmacy or go to http://bit.ly/9S1Bp3n to find one close to you.3.Make use of household items: Use cat litter or old coffee grounds to dispose medications if other options arenot available. Mix your drugs with these household products, seal them in an airtight container andthrow it into the garbage. Call [facility]: [phone] to be sure your drugs can be [...] been reviewed and explained to me and I,YUE ANGULO understand my current condition and have read and understand these discharge instructions. I have received a written copy of the plan/instructions. If I have questions, I am aware that I should contact my doctor. 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 Signature: Date/Time: Relationship to Patient: Witness Name/Signature: Date/Time: [facility]05-11-2023 Note ORIGINAL EXAMINATION: ONE XRAY VIEW OF [...] Date: 01/31/2023 9:02:20 AM Ordering Provider[facility]05-11-2023 Note ORIGINAL EXAMINATION: ONE XRAY VIEW OF [...] Date: 01/31/2023 9:02:20 AM [facility]ing [facility] Discharge instructions Patient Education 01/29/2023 11:44:05 [...] vision Extreme drowsiness, confusion, dizziness, or fainting [phone] [employer] [address] [place] [address]. All rights reserved. This information is not intended as a substitute for professional medical care. Always follow yourhealthcare professional's instructions. Follow Up Care 01/29/2023 09:17:03 With:JOSE FELICIANO Address: [address] [facility] [address] [address]- [phone] Business (1) When:01/29/2023 Comments:Schedule appointment as soon as possibleReturn to ED if symptoms worsenTake 400mg magnesium oxide daily With:LINA ZENDEJAS Address: [facility] [address] [place] [phone]- [phone] Business (1) When:2-4 days [facility] 05-09-2023 Note Discharge Instructions Thank you for allowing [facility] to assist you with your healthcare needs. [...] Schedule the Following Appointments Follow Up with JOSE FELICIANO When 01/29/2023 12:00 AM EDT Why: Schedule appointment as soon as possible Return to ED if symptoms worsen Take 400mg magnesium oxide daily Where: [address] [facility] [address] [place] [address]- [phone] Business (1) Follow Up with LINA ZENDEJAS When Within 2-4 days Where: [facility] [address] [place] [address], [place] [address]- [phone] Business (1) Allergies predniSONE Bactrim Cigarette smoke [...] vision Extreme drowsiness, confusion, dizziness, or fainting 0443-2046 [employer] [address] [place] [address]. All rights reserved. This information is not intended as a substitute for professional medical care. Always follow yourhealthcare professional's instructions. Additional Information VACCINATE! IT SAVES LIVES! Members of the community who have not yet received the COVID-19 vaccine and would like to receive it can visit one of [facility] vaccine clinics. There are many vaccine clinic locations within the [facility]. For locations and available times, please visit www.gettheshot.[email or web address].[place].gov/. It is important to note that some COVID mobile vaccine clinics are held outdoors and may be canceled in rainy or stormy conditions. To learn more about pediatric vaccinations (ages 5-11), we invite you to visit the [facility] webpage. https://www.[facility].org/pages/6197-Nzouq-Tjwkhunzvou-Rfotjdmxob-Ntgsq-Eah stions.htmlTo learn more about the COVID-19 vaccine, we invite you to visit the CDC website for a list of frequently asked questions. https://www.cdc.gov/coronavirus/2019-ncov/vaccines/faq.html [facility] Patient Portal Access Instructions: Stay connected with your healthcare team and access your personal medical information anytime with the [facility] Patient Portal. If you would like a full copy of your medical records please contact the [facility] Medical Records Department Saturday through Saturday between 8a.m. and 4:30p.m. Please follow the directions below to access the portal: 1.Access the email account you provided upon [facility] the [facility].2.Look for an invitation email from [facility].3.Open the email and access the invitation link: Accept Invitation to [facility]4.Fill in the required العلي to create your account. Sign into www.[employer] with your username and password that you [...] you will allow to register on the [facility] Patient Portal for access to your information. You can also access the [facility] Patient Portal on the [employer]. Simply click on Health Records under [employer] and then click on the [employer] logo. HOW TO SAFELY DISPOSE OF PRESCRIPTION [...] Call your local pharmacy or go to http://F2G.[employer]/4C3Ri1j to find one close to you.3.Make use of household items: Use cat litter or old coffee grounds to dispose medications if other options arenot available. Mix your drugs with these household products, seal them in an airtight container andthrow it into the garbage. Call [facility]: [phone] to be sure your drugs can be [...] been reviewed and explained to me and I,YUE ANGULO understand my current condition and have read and understand these discharge instructions. I have received a written copy of the plan/instructions. If I have questions, I am aware that I should contact my doctor. 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 Signature: Date/Time: Relationship to Patient: Witness Name/Signature: Date/Time: [facility]05-09-2023 Note Discharge Instructions Thank you for allowing [facility] to assist you with your healthcare needs. [...] Schedule the Following Appointments Follow Up with JOSE FELICIANO When 01/29/2023 12:00 AM EDT Why: Schedule appointment as soon as possible Return to ED if symptoms worsen Take 400mg magnesium oxide daily Where: [address] [facility] [place] [address] [phone] Business (1) Follow Up with LINA ZENDEJAS When Within 2-4 days Where: [facility] [address] [place] [address]- [phone] Business (1) Allergies predniSONE Bactrim Cigarette smoke [...] vision Extreme drowsiness, confusion, dizziness, or fainting 0037-3327 [employer] [address] [place] [address]. All rights reserved. This information is not intended as a substitute for professional medical care. Always follow yourhealthcare professional's instructions. Additional Information VACCINATE! IT SAVES LIVES! Members of the community who have not yet received the COVID-19 vaccine and would like to receive it can visit one of [facility] vaccine clinics. There are many vaccine clinic locations within the [facility]. For locations and available times, please visit www.gettheshot.[email or web address].[place].gov/. It is important to note that some COVID mobile vaccine clinics are held outdoors and may be canceled in rainy or stormy conditions. To learn more about pediatric vaccinations (ages 5-11), we invite you to visit the [facility] webpage. https://www.[facility].org/pages/5408-Adjcw-Uwfjruavrtq-Jkopogdimy-Qmawh-Wco stions.htmlTo learn more about the COVID-19 vaccine, we invite you to visit the CDC website for a list of frequently asked questions. https://www.cdc.gov/coronavirus/2019-ncov/vaccines/faq.html [facility] Patient Portal Access Instructions: Stay connected with your healthcare team and access your personal medical information anytime with the [facility] Patient Portal. If you would like a full copy of your medical records please contact the [facility] Medical Records Department Saturday through Saturday between 8a.m. and 4:30p.m. Please follow the directions below to access the portal: 1.Access the email account you provided upon [facility].2.Look for an invitation email from [facility].3.Open the email and access the invitation link: Accept Invitation to [facility]4.Fill in the required العلي to create your account. Sign into [email or web address] with your username and password that you [...] you will allow to register on the [facility] Patient Portal for access to your information. You can also access the [facility] Patient Portal on the [employer]. Simply click on Health Records under [employer] and then click on the [employer] logo. HOW TO SAFELY DISPOSE OF PRESCRIPTION [...] Call your local pharmacy or go to http://bit.[employer]/9C7Sq1b to find one close to you.3.Make use of household items: Use cat litter or old coffee grounds to dispose medications if other options arenot available. Mix your drugs with these household products, seal them in an airtight container andthrow it into the garbage. Call [facility]: [phone] to be sure your drugs can be [...] reviewed and explained to me and I,KEV YUE Siri understand my current condition and have read and understand these discharge instructions. I have received a written copy of the plan/instructions. If I have questions, I am aware that I should contact my doctor. 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 Signature: Date/Time: Relationship to Patient: Witness Name/Signature: Date/Time: [facility]01-21-2023 Hospital Discharge instructions Patient Education 10/13/2022 15:23:29 [...] Swelling, pain or redness in one leg 7468-1660 [employer] [address] [place] [address]. All rights reserved. This information is not intended as a substitute for professional medical care. Always follow yourn[facility] hospital[facility] professional's instructions. 10/13/2022 15:23:23 Atrial Fibrillation Atrial [...] vision Extreme drowsiness, confusion, dizziness, or fainting 9274-6777 [employer] [address] [place] [address], [place] [address]. All rights reserved. This information is not intended as a substitute for professional medical care. Always follow yourhealthcare professional's instructions. Follow Up Care 10/13/2022 09:56:00 With:JOSE FELICIANO Address: [address] [facility] [address] [place] [address]- [phone] Business (1) When:2-4 days With:MACI HARDY Address: [facility] [address] [address] [phone] Business (1) When:2-4 days With:LINA ZENDEJAS Address: [facility] [address] [place] [phone] [phone] Business (1) When:2-4 days [facility] 01-21-2023 Emergency department Discharge summary Discharge Instructions Thank you for allowing [facility] to assist you with your healthcare needs. The following is importantdischarge information regarding your hospital visit. Diagnosis from Today's Visit Atrial fibrillation Chest pain Heart rate fast What to Do Next Instructions from Your Care Team No qualifying data available. Post Acute Orders No qualifying data available. You Need to Schedule the Following Appointments Follow Up with JOSE FELICIANO When Within 2-4 days Where: [address] [facility] [address] [place] [address] [phone] Business (1) Follow Up with MACI HARDY When Within 2-4 days Where: [address] [facility] [address] [place] [address] [phone] Business (1) Follow Up with LINA ZENDEJAS When Within 2-4 days Where: [facility] [address] [place] [phone] [phone] Business (1) Allergies predniSONE Bactrim Cigarette smoke [...] a day Duration: 30 Days Pickup at [facility] Unchanged aspirin (aspirin 81 mg oral delayed [...] by mouth Once a day Pharmacy Information [facility] [address] [place], [place] [phone] Please take this list to your next [...] Swelling, pain or redness in one leg 9764-0727 [employer] [address] [place] [address], [place] [address]. All rights reserved. This information is not [...] vision Extreme drowsiness, confusion, dizziness, or fainting 3930-5296 [employer] [address] [place] [address]. All rights reserved. This information is not intended as a substitute for professional medical care. Always follow yourhealthcare professional's instructions. Additional Information VACCINATE! IT SAVES LIVES! Members of the community who have not yet received the COVID-19 vaccine and would like to receive it can visit one of [facility] vaccine clinics. There are many vaccine clinic locations within the [facility]. For locations and available times, please visit www.[email or web address].org. It is important to note that some COVID mobile vaccine clinics are held outdoors and may be canceled in rainy orstormy conditions. To learn more about pediatric vaccinations (ages 5-11), we invite you to visit the [facility] webpage. https://www.[facility].org/pages/0655-Rkblw-Ubhoabcqpnn-Kdsjllaxjc-Jznlm-Zwk stions.htmlTo learn more about the COVID-19 vaccine, we invite you to visit the [facility] website for a list of frequently asked questions. https://[email or web address].org/assets/Sxzwrhfn-orv-Vcmaxqsh/onmra-Nxwgncu-Fmchbavhpi _Asked-Questions.pdf [facility] Patient Portal Access Instructions: Stay connected with your healthcare team and access your personal medical information anytime with the [facility] Patient Portal. If you would like a full copy of your medical records please contact the [facility] Medical Records Department Saturday through Saturday between 8a.m. and 4:30p.m. Please follow the directions below to access the portal: 1.Access the email account you provided upon [facility].2.Look for an invitation email from [facility].3.Open the email and access the invitation link: Accept Invitation to [facility]4.Fill in the required العلي to create your account. Sign into www.[employer] with your username and password that you [...] you will allow to register on the [facility] Patient Portal for access to your information. You can also access the [facility] Patient Portal on the [employer] aleena. Simply click on Health Records under [employer] and then click on the [employer] logo. HOW TO SAFELY DISPOSE OF PRESCRIPTION [...] Call your local pharmacy or go to http://Innovate2/1B7Ni2b to find one close to you.3.Make use of household items: Use cat litter or old coffee grounds to dispose medications if other options arenot available. Mix your drugs with these household products, seal them in an airtight container andthrow it into the garbage. Call [facility]: [phone] to be sure your drugs can be [...] reviewed and explained to me and I,KEV YUE Siri understand my current condition and have read and understand these discharge instructions. I have received a written copy of the plan/instructions. If I have questions, I am aware that I should contact my doctor. 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 Signature: Date/Time: Relationship to Patient: Witness Name/Signature: Date/Time: [id number] Note ORIGINAL EXAMINATION: ONE XRAY VIEW OF [...] 10/13/2022 10:18:42 AM Ordering Provider: RICHARD GILL [facility] [id number] Note ORIGINAL EXAMINATION: ONE XRAY VIEW OF [...] Sign Date: 10/13/2022 10:18:42 AM Ordering Provider: [facility]01-19-2023 Discharge summary Discharge Diagnosis Longstanding persistent atrial fibrillation (I48.11 - ICD-10-CM) Chronic diastolic (congestive) heart failure (I50.32 - ICD-10-CM) Pulmonary hypertension, unspecified (I27.20 - ICD-10-CM) Obstructive sleep apnea (adult) (pediatric) (G47.33 - ICD-10-CM) Atherosclerotic heart disease of [place] coronary artery without angina pectoris (I25.10 - [...] Oral, q12hr, # 180 cap(s),0 Refill(s), Pharmacy: [facility] #[id number], 167.6, cm, 10/08/22 8:33:00 EST, Height Ordered: dofetilide 500 mcg oral capsule,Dose : 500 mcg = 1 cap(s), Oral, q12h, # 180 cap(s), 0 Refill(s), Pharmacy: [facility] #[id number], 167.6, cm, 10/08/22 8:33:00 EST, Height Ordered: magnesium oxide,Start: 10/11/22 9:00:00 EST, Dose = 400 mg, = 1 tab(s), Oral, TID, 3 dose(s), Stop: 10/11/22 22:00:00 EST, 10/11/22 8:43:00 EST Ordered: magnesium oxide 400 mg oral tablet,Dose : 400 mg = 1 tab(s), Oral, TID, X 2 day(s), # 6 tab(s), 0 Refill(s), 10/13/22 8:43:00 EST, Pharmacy: [facility] #[id number], 167.6, cm, 10/08/22 8:33:00 EST, Height Hospital Course Longstanding persistent nonvalvular AF [id number] 2 s/p DCCV 10/09/2022 Chronic diastolic heart [...] condition. Discussed with Dr. Patrick Hernandez MD Certified Court Interpreter [employer] or Pager [phone] Allergies predniSONE Bactrim Cigarette smoke Dilaudid HYDROmorphone [...] or chew (controlled release). Refills: 6. potassium eflbiiht85 Milliequivalent by mouth As Directed. rivaroxaban (Xarelto 20 mg oral tablet)1 tab(s) by mouth daily at bedtime. Begin taking 08/09/22. tadalafil (Tadalafil (Eqv-Adcirca) 20 mg oral tablet)1 tab(s) by mouth once a day. Refills: 0. vitamin E100 International unit by mouth once a day. Follow Up Follow Up with MACI HARDY MD When 10/24/2022 02:00 PM EST Where: [address] [facility] [address] [facility] [place] [address]- [phone] Follow Up with LINA ZENDEJAS MD, [facility], Internal Medicine When Why: PLEASE CALL THIS OFFICE TO SCHEDULE A HOSPITAL FOLLOW UP APPOINTMENT. Where: [facility] [address] [place] [address]- [phone] Follow Up Appointments No qualifying data available. [...] MAYO HERNANDEZ MD on 10/11/2022 12:09 PM [facility] [id number] Hospital Discharge instructions Patient Education 10/11/2022 12:10:12 [...] may be diagnosed with: Electrocardiogram (ECG). 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 This device records your heartbeats for 24 [...] 09/09/2006 Document Revised: 10/30/2018 Document Reviewed: 10/31/2018 [employer] Patient Education 2020 [employer] 10/11/2022 12:10:05 Atrial Fibrillation Atrial Fibrillation Atrial [...] may be diagnosed with: Electrocardiogram (ECG). 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 This device records your heartbeats for 24 [...] 09/09/2006 Document Revised: 10/30/2018 Document Reviewed: 10/31/2018 [employer] Patient Education 2020 [employer]. Follow Up Care 10/08/2022 08:00:02 With:LINA ZENDEJAS MD, [facility], Internal Medicine Address: [address] [address]- [phone] When: Unknown Comments:PLEASE CALL THIS OFFICE TO SCHEDULE A HOSPITAL FOLLOW UP APPOINTMENT. With:MACI HARDY MD Address: [address] [place] [address] [address] [place] [address]- [phone] When:10/24/2022 14:00:00 [facility] 01-19-2023 Note Discharge Instructions Thank you for allowing [facility] to assist you with your healthcare needs. The following is importantdischarge information regarding your hospital visit. Your Care Team LINA ZENDEJAS MD What to do next Scheduled Follow-Up Appointments Appointment Type When Where Contact InformationCV FINANCIAL OPERATIONS CLERK 10/24/2022 02:00 PM EST [facility] Follow Up Appointments Follow Up with MACI HARDY MD When 10/24/2022 02:00 PM EST Where: [address] [facility] [place] [address]- [phone] Follow Up with LINA ZENDEJAS MD, [facility], Internal Medicine When Why: PLEASE CALL THIS OFFICE TO SCHEDULE A HOSPITAL FOLLOW UP APPOINTMENT. Where: [facility] [address] [place] [address]- [phone] The Following Activity and Diet Have Been [...] by mouth Every 12 hours Pickup at [facility] #[id number] New magnesium oxide (magnesium oxide 400 mg oral tablet) 1 tab(s) by mouth Three (3) times a day Duration: 2 Days Pickup at [facility] #19069 Unchanged aspirin (aspirin 81 mg oral delayed [...] by mouth Once a day Pharmacy Information [facility] #[id number]: [address], [place] [phone] Please take this list to your next [...] may report side effects to FDA at 0-765-KQB-2518. What other drugs will affect dofetilide? Other drugs may interact with dofetilide, including prescription and vvqv-gyj-qjfjzqj medicines, vitamins, and herbal products. Tell each [...] to ensure that the information provided by [employer]. ('[employer]') is accurate, up-to-date, and complete, but no guarantee is made to that effect. Drug information contained herein may be time sensitive. [employer] information has been compiled for use by healthcare practitioners and consumers in the [place] and therefore [employer] does not warrant that uses outside of the [place] are appropriate, unless specifically indicated otherwise. [employer] drug information does not endorse drugs, diagnose patients or recommend therapy. [employer] drug information isan informational resource designed to [...] effective or appropriate for any given patient. [employer] does not assume any responsibility for any aspect of healthcare administered with the aid of information [employer] provides. The information contained herein is not intended to cover all possible uses, directions, precautions, warnings, drug interactions, allergic reactions, or adverse effects. If you have questions about the drugs you are taking, check with your doctor, nurse or pharmacist. Copyright 6535-2477 [employer]. Version: 4.01. Revision Date: 01/04/2016. Education Materials [...] may be diagnosed with: Electrocardiogram (ECG). 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 This device records your heartbeats for 24 [...] 09/09/2006 Document Revised: 10/30/2018 Document Reviewed: 10/31/2018 [employer] Patient Education 2020 [employer]. Atrial Fibrillation Atrial fibrillation is a type [...] may be diagnosed with: Electrocardiogram (ECG). 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 This device records your heartbeats for 24 [...] 09/09/2006 Document Revised: 10/30/2018 Document Reviewed: 10/31/2018 [employer] Patient Education 2020 [employer]. Additional Information VACCINATE! IT SAVES LIVES! Members of the community who have not yet received the COVID-19 vaccine and would like to receive it can visit one of [facility] vaccine clinics. There are many vaccine clinic locations within the [facility]. For locations and available times, please visit [email or web address]/. It is important to note that some COVID mobile vaccine clinics are held outdoors and may be canceled in rainy or stormy conditions. To learn more about pediatric vaccinations (ages 5-11), we invite you to visit the [facility] webpage. https://www.[email or web address].org/pages/[email or web address]-Gixly-Ugvqxcwmrag-Guqsxlrijn-Uurmy-Ahn stions.htmlTo learn more about the COVID-19 vaccine, we invite you to visit the [facility] website for a list of frequently asked questions. https://[employer]/assets/Guspvkof-kur-Xsiakmok/xilda-Nyezwpp-Ihxzmsawfe _Asked-Questions.pdf [facility] Patient Portal Access Instructions: Stay connected with your healthcare team and access your personal medical information anytime with the [facility] Patient Portal.If you would like a full copy of your medical records, please contact the [facility] Medical Records Department, Saturday through Saturday between 8a.m. and 4:30p.m. Please follow the directions below to access the portal: 1.Access the email account you provided upon registration to the hospital.2.Look for an invitation email from [facility].3.Open the email and access the invitation link: Accept Invitation to [facility]4.Fill in the required العلي to create your account. Sign into www.[employer] with your username and password that you [...] you will allow to register on the [facility] Patient Portal for access to your information. You can also access the [facility] Patient Portal on the [employer]. Simply click on Health Records under [employer] and then click on the [employer] logo. HOW TO SAFELY DISPOSE OF PRESCRIPTION [...] Call your local pharmacy or go to [email or web address] to find one close to you.3.Make use of household items: Use cat litter or old coffee grounds to dispose medications if other options arenot available. Mix your drugs with these household products, seal them in an airtight container andthrow it into the garbage. Call [facility]: [phone] to be sure your drugs can be [...] aware that I should contact my doctor. 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 Signature: Date/Time: Relationship to Patient: Witness Name/Signature: Date/Time: [facility] [id number] Discharge summary Discharge Diagnosis Longstanding persistent atrial fibrillation (I48.11 - ICD-10-CM) Chronic diastolic (congestive) heart failure (I50.32 - ICD-10-CM) Pulmonary hypertension, unspecified (I27.20 - ICD-10-CM) Obstructive sleep apnea (adult) (pediatric) (G47.33 - ICD-10-CM) Atherosclerotic heart disease of [place] coronary artery without angina pectoris (I25.10 - [...] Oral, q12hr, # 180 cap(s),0 Refill(s), Pharmacy: [facility] #[id number], 167.6, cm, 10/08/22 8:33:00 EST, Height Ordered: dofetilide 500 mcg oral capsule,Dose : 500 mcg = 1 cap(s), Oral, q12h, # 180 cap(s), 0 Refill(s), Pharmacy: [facility] #[id number], 167.6, cm, 10/08/22 8:33:00 EST, Height Ordered: magnesium oxide,Start: 10/11/22 9:00:00 EST, Dose = 400 mg, = 1 tab(s), Oral, TID, 3 dose(s), Stop: 10/11/22 22:00:00 EST, 10/11/22 8:43:00 EST Ordered: magnesium oxide 400 mg oral tablet,Dose : 400 mg = 1 tab(s), Oral, TID, X 2 day(s), # 6 tab(s), 0 Refill(s), 10/13/22 8:43:00 EST, Pharmacy: [facility] #[id number], 167.6, cm, 10/08/22 8:33:00 EST, Height Hospital Course Longstanding persistent nonvalvular AF [id number] 2 s/p DCCV 10/09/2022 Chronic diastolic heart [...] condition. Discussed with Dr. Patrick Hernandez MD Certified Court Interpreter [employer] or Pager [phone] Allergies predniSONE Bactrim Cigarette smoke Dilaudid HYDROmorphone [...] or chew (controlled release). Refills: 6. potassium kefcncgf89 Milliequivalent by mouth As Directed. rivaroxaban (Xarelto 20 mg oral tablet)1 tab(s) by mouth daily at bedtime. Begin taking 08/09/22. tadalafil (Tadalafil (Eqv-Adcirca) 20 mg oral tablet)1 tab(s) by mouth once a day. Refills: 0. vitamin E100 International unit by mouth once a day. Follow Up Follow Up with MACI HARDY MD When 10/24/2022 02:00 PM EST Where: [address] [facility] [address] [facility] [place] [address]- [phone] Follow Up with LINA ZENDEJAS MD, [facility], Internal Medicine When Why: PLEASE CALL THIS OFFICE TO SCHEDULE A HOSPITAL FOLLOW UP APPOINTMENT. Where: [facility] [address] [place] [address]- [phone] Follow Up Appointments No qualifying data available. [...] MAYO HERNANDEZ MD on 10/11/2022 12:09 PM [facility] [id number] Note Date of Service 10/10/2022 Chief Complaint [...] s/p tikosyn Assessment/Plan Longstanding persistent nonvalvular AF [id number] 2 s/p DCCV 10/09/2022 Chronic diastolic heart [...] dofetilide Discussed with Dr. Patrick Hernandez MD Certified Court Interpreter [employer] or Pager [phone] Digitally Signed by MAYO HERNANDEZ MD on 10/10/2022 02:43 PM [facility] [id number] Note Date of Service 10/10/2022 Chief Complaint [...] tablet 12.5 mg 0.5 tab(s), Oral, qDay [facility] communication order 1 EA, Miscellaneous, Daily rivaroxaban [...] s/p tikosyn Assessment/Plan Longstanding persistent nonvalvular AF [id number] 2 s/p DCCV 10/09/2022 Chronic diastolic heart [...] dofetilide Discussed with Dr. Patrick Hernandez MD Certified Court Interpreter [employer] or Pager [phone] Digitally Signed by MAYO HERNANDEZ MD on 10/10/2022 02:43 PM [facility] [id number] Note Date of Service 10/09/2022 Chief Complaint [...] q12hr, # 180 cap(s), 0 Refill(s), Pharmacy: [facility] #[id number], 167.6, cm, 10/08/22 8:33:00 EST, Height triamcinolone topical, Start: 10/08/22 15:17:00 EST, Dose = 1 aleena, Topical, BID, PRN, Rash, Apply to: affected area(s), Cream, 10/08/22 15:17:00 EST Telemetry Monitoring - Continue Longstanding persistent nonvalvular AF [id number] 2 failed DCV 06/2022 Chronic diastolic heart [...] protocol Discussed with Dr. Patrick Hernandez MD Certified Court Interpreter [employer] or Pager [phone] Digitally Signed by MAYO HERNANDEZ MD on 10/09/2022 01:58 PM [facility] [id number] Note Date of Service 10/09/2022 Chief Complaint [...] q12hr, # 180 cap(s), 0 Refill(s), Pharmacy: [facility] #[id number], 167.6, cm, 10/08/22 8:33:00 EST, Height triamcinolone topical, Start: 10/08/22 15:17:00 EST, Dose = 1 aleena, Topical, BID, PRN, Rash, Apply to: affected area(s), Cream, 10/08/22 15:17:00 EST Telemetry Monitoring - Continue Longstanding persistent nonvalvular AF [id number] 2 failed DCV 06/2022 Chronic diastolic heart [...] protocol Discussed with Dr. Patrick Hernandez MD Certified Court Interpreter [employer] or Pager [phone] Digitally Signed by MAYO HERNANDEZ MD on 10/09/2022 01:58 PM [facility] [id number] Anesthesiology Consult note Patient: YUE ANGULO Age: 62 years Sex: Female : [...] Daily, # 30 tab(s), 0 Refill(s), Pharmacy: [id number], 167.6, cm, 08/07/22 5:48:00 EST, Height bumetanide 1 mg oral tablet: Dose : 1 mg = 1 tab(s), Oral, Daily, PRN Swelling/weight gain, # 30 tab(s), 2 Refill(s), Pharmacy: [facility], 167.6, cm, 07/31/22 9:04:00 EST, Height, kg,07/31/22 9:04:00 EST, Dosing Weight metoprolol succinate 25 mg oral TABLET extended release: Dose : 12.5 mg = 0.5 tab(s), Oral, qDay, Do not crush or chew (controlled release), # 15 tab(s), 6 Refill(s), Pharmacy: [facility] #[id number], 167.6, cm, 08/22/22 9:35:00 EST, Height Documented [...] ATRIAL FIBRILLATION WITH RVR / SNOMED CT 3293688479 / Confirmed CHEST PAIN, ATYPICAL / SNOMED CT 071925168 / Confirmed Back pain / SNOMED CT 6254318439 / Confirmed CHEST WALL PAIN / SNOMED CT 442499122 / Confirmed Cirrhosis, non-alcoholic / SNOMED CT 300594225 / Confirmed DEHYDRATION / SNOMED CT 53289960 / Confirmed DIARRHEA / SNOMED CT 573839098 / Confirmed Eczema / SNOMED CT 52932198 / Confirmed GERD - Gastro-esophageal reflux disease / SNOMED CT 5657863879 / Confirmed HYPOTHYROIDISM / SNOMED CT 76887897 / Confirmed REFUSED INFLUENZA VACCINE / SNOMED CT 243295159 / Confirmed Migraine / SNOMED CT 94481375 / Confirmed SYNCOPE, NEAR / SNOMED CT 4977108643 / Confirmed STEATOHEPATITIS, NONALCOHOLIC / SNOMED CT 4630193065 / Confirmed FARSHAD (obstructive sleep apnea) / SNOMED CT 829475076 / Confirmed ASD secundum / SNOMED CT 307665370 / Confirmed Thyroid enlargement / SNOMED CT 196342846 / Confirmed Urinary incontinence / SNOMED CT 2604095632 / Confirmed REFUSED PNEUMOCOCCAL VACCINE / SNOMED CT 5221173373 / Confirmed, Active Problems (28) Anxiety ASD [...] Histories Past Medical History: Active Back pain (7475939015) Migraine (06904342) Urinary incontinence (0528043041) GERD - Gastro-esophageal reflux disease (9587323253) Thyroid enlargement (450891752) Eczema (04260090) Comments: 07/16/2013 EDT 11:50 EDT - KWAN Stanley Syl J of back Family History: Cancer Father () Brother Cardiac pacemaker Father () Sister Atrial fibrillation Sister Mother High blood pressure Mother Heart failure Father () Stroke Mother Sister Pulmonary embolism Daughter Deep vein thrombosis Daughter Procedure history: Transesophageal echocardiogram ([id number]) on 09/14/2022 at 62 Years. Comments: 09/30/2022 [...] device. 2. No RICHARD thrombus. Cardiac catheterization ([id number]) on 08/29/2022 at 62 Years. Comments: 09/30/2022 18:00 Elana Paris MA (ABR-OE) No significant obstructive CAD. Normal LVEDP. Echocardiogram ([id number]) on 08/15/2022 at 61 Years. Comments: 09/30/2022 18:01 Elana Paris MA (ABR-OE) 1. Limited ECHO for assessment of pericardial effusion. 2. Left ventricle: Systolic function is normal. 3. Pericardium, extracardiac: A ltrx-bj-oihdrisu, free-flowing pericardial effusion is identified posterior to [...] atrial pressure is 3 mm Hg. Echocardiogram ([id number]) on 08/08/2022 at 61 Years. Comments: 09/30/2022 [...] atrium: The atrium is mildly dilated. Echocardiogram ([id number]) on 08/07/2022 at 61 Years. Comments: 09/30/2022 18:03 Elana Paris KINZA (ABR-OE) Pericardium, extracardiac: A small to moderate posterior pericardial effusion is identified size 1.3 cm. There is no RV diastolic collapse noted. Previous TTE from March 2022 shows similar findings. Echocardiogram ([id number]) on 08/07/2022 at 61 Years. Comments: 09/30/2022 18:03 Elana Paris MA (ABR-OE) 1. Pericardium, extracardiac: A small pericardial effusion is identified. Features are not consistent with tamponade physiology. 2. Inferior vena cava: The IVC is trivially dilated Transesophageal echocardiogram ([id number]) on 08/07/2022 at 61 Years. Comments: 09/30/2022 [...] did not change post procedure Transesophageal echocardiogram ([id number]) on 06/15/2022 at 61 Years. Comments: 09/30/2022 [...] 0.5 cm area noted with a predominant hkrx-ka-qgazi shunt on color Doppler as well as agitated saline study. Some right to left shunting noted with provocative maneuvers. 8. Inferior vena cava: The IVC is dilated at 2.2 cm. 9. Pericardium, extracardiac: A small pericardial effusion is identified Spirometry ([id number]) on 04/24/2022 at 61 Years. Comments: 09/30/2022 18:06 Elana Paris MA (ABR-OE) 1. Moderate degree of restrictive airway disease. 2. Bronchodilator therapy has not demonstrated any significant change indicating that the patient will not benefit from continued bronchodilator therapy. 3. No evidence of diffusion defect. Cardiac catheterization ([id number]) on 04/13/2022 at 61 Years. Suspension of bladder (4580230). Dilation and curettage (02959740). Hysteroscopy (936865930). Tubal ligation (161562536). Bunionectomy (89168440). Tonsillectomy (037394465). Colonoscopy (078989939). EGD - Esophagogastroduodenoscopy (2490560747). PFO - Closure of patent foramen ovale (2410363226). Cardioversion (616622695). Social History Social & Psychosocial Habits Alcohol [...] On and Limits Checked Nail Bed Color [place] Capillary Refill < 2 seconds Heart Sounds [...] Intact Skin Turgor Elastic Mucous Membrane Color [place] Mucous Membrane Description Moist Sensory Perception Ortiz [...] Transport Mode Order Detail MTT with Monitor Cup Setter Lockstitch Details Form Cup Setter Lockstitch Details Form 10/09/2022 1:27 EST Heart Rate [...] On and Limits Checked Nail Bed Color [place] Heart Rhythm Irregular Dorsalis Pedis Pulse, Left [...] Intact Skin Turgor Elastic Mucous Membrane Color [place] Mucous Membrane Description Moist Continuous IV Infusions [...] have to contact him to discuss. Chris w/ Shan LEVI and was advised to give 250 dose and follow up with this in AM Results Read Back Yes 10/08/2022 19:44 EST Heart Rate Monitored 82 bpm Reason For Taking VItal Signs Routine Primary Pain Intensity 0 Pain Scale Type 0-10 Pain scale Monitor Alarms On and Limits Checked Nail Bed Color [place] Capillary Refill < 2 seconds Heart Sounds [...] Intact Skin Turgor Elastic Mucous Membrane Color [place] Mucous Membrane Description Moist Continuous IV Infusions [...] Alert Aspiration Risk None Eye Opening Response Upper Tract Spontaneously Best Motor Response Lizbeth Obeys simple commands Best Verbal Response Upper Tract Oriented Upper Tract Coma Score 15 ARDEN Yes Left Pupil [...] - Phase I Not Done (Not Done) Cup Setter Lockstitch Details Form Not Done (Not Done) 10/08/2022 [...] 458. Pt is currently in A fib. [place] [address] Notification Outcome No return call Temperature Oral [...] On and Limits Checked Nail Bed Color [place] Capillary Refill < 2 seconds Heart Sounds [...] Intact Skin Turgor Elastic Mucous Membrane Color [place] Mucous Membrane Description Moist Sensory Perception Ortiz [...] On and Limits Checked Nail Bed Color [place] Capillary Refill < 2 seconds Heart Sounds [...] Elimination Voiding, no difficulties All Extremity Description [place], Normal for ethnicity Skin Temperature Warm Temperature All Extremities Warm Skin Description [place], Normal for ethnicity Skin Integrity Intact Skin Turgor Elastic Mucous Membrane Color [place] Mucous Membrane Description Moist Neurological Language Able [...] with Monitor Order (more content not included)... [facility] [id number] History and physical note Date of Service 10/08/2022 Chief Complaint AF History of Present Illness Kev is a 62-year-old woman with ASD s/p percutaneous closure 07/2022, pulmonary hypertension on tadalafil,, atrial fibrillation [id number] 2. She is admitted for dofetilide loading [...] Lab Data Assessment/Plan Longstanding persistent nonvalvular AF [id number]-JUSy 2 failed DCV 06/2022 Chronic diastolic heart [...] BMP, mag, all per protocol N.p.o. for [facility] tomorrow, on with anticoagulation Discussed with Dr. Patrick Hernandez MD Certified Court Interpreter [facility] or Pager [phone] Problem List/Past Medical History Ongoing ASD secundum [...] MAYO HERNANDEZ MD on 10/08/2022 11:38 AM [facility] CenterEvaugwop47-46-2101 Evaluation + Plan noteExtracted from: Title:History and Physical Author:DAVID HERNANDEZ MD Date:10/08/22 Longstanding persistent nonv alvular AF [id number] 2 failed DCV 06/2022 Chronic diastolic heart [...] anticoagulation Discussed with Dr. Patrick Hernandez MD Certified Court Interpreter [employer] or Pager [phone] Addendum by MACI HARDY MD on October [...] PM Scheduled Provider: Location:[facility] Appointment Type:CV FINANCIAL OPERATIONS CLERK [facility] 01-16-2023 History and physical note Date of Service 10/08/2022 Chief Complaint AF History of Present Illness Kev is a 62-year-old woman with ASD s/p percutaneous closure 07/2022, pulmonary hypertension on tadalafil,, atrial fibrillation [id number] 2. She is admitted for dofetilide loading [...] Lab Data Assessment/Plan Longstanding persistent nonvalvular AF [id number] 2 failed DCV 06/2022 Chronic diastolic heart [...] anticoagulation Discussed with Dr. Patrick Hernandez MD Certified Court Interpreter [employer] or Pager [phone] Problem List/Past Medical History Ongoing ASD secundum [...] MAYO HERNANDEZ MD on 10/08/2022 11:38 AM [facility] [id number] Hospital Discharge instructions Patient Education 09/14/2022 15:19:08 [...] for 24 hours. MEDICATION/PAIN Do not take lpso-cby-vajldvp medicines, vitamins, herbs, or supplements unless instructed [...] what activities are safe for you. Take tzmc-pgp-dznleih and prescription medicines only as told by [...] 12/16/2001 Document Revised: 09/12/2018 Document Reviewed: 04/25/2018 [employer] Patient Education 2020 [employer]. 09/14/2022 14:41:02 3- Cardioversion (06/2018)(CUSTOM) CARDIOVERSION Discharge [...] Document Reviewed: 09/10/2014 ExitCare Patient Information 2015 [employer]. This information is not intended to replace advicegiven to you by your health care provider. Make sure you discuss any questions you have with your health care provider. Follow Up Care 09/04/2022 10:11:43 With:HANK MCMULLEN MD Address: [address] [place] [address] [address] [place] [address]- [phone] When:09/28/2022 13:30:00 With:MACI HARDY MD Address: [address] [facility] [address] [place] [address]- [phone] When:10/24/2022 14:00:00 [facility] 12-23-2022 Summary of episode note Discharge Instructions Thank you for allowing [facility] to assist you with your healthcare needs. The following is importantdischarge information regarding your hospital visit. Your Care Team LINA ZENDEJAS MD What to do next Scheduled Follow-Up Appointments Appointment Type When Where Contact InformationCV Procedure - Echo (Adult) 09/26/2022 12:00 PM EST Heart Lab CV OV Structural Heart 09/28/2022 01:30 PM EST [facility] CV OV CHF 10/02/2022 11:30 AM EST [facility] CV FINANCIAL OPERATIONS CLERK 10/24/2022 02:00 PM EST [facility] Follow Up Appointments Follow Up with MACI HARDY MD When 10/24/2022 02:00 PM EST Where: [address] [facility] [place] [address]- [phone] Follow Up with HANK MCMULLEN MD When 09/28/2022 01:30 PM EST Where: [address] [place] [address]- [phone] Medications Please ask your primary doctor or pharmacist before taking any other medication not listed, including over the counter drugs, herbal medications, vitamins and or supplements as they may interact [facility] medications. What How Much When [...] TRANSESOPHAGEAL ECHOCARDIOGRAM (ANTON) DISCHARGE INSTRUCTIONS TRANSESOPHAGEAL ECHOCARDIOGRAM (ATNON)- A test that uses sound waves to [...] for 24 hours. MEDICATION/PAIN Do not take skkl-bdb-ruzbawf medicines, vitamins, herbs, or supplements unless instructed [...] what activities are safe for you. Take spxa-tmh-zvjtxqh and prescription medicines only as told by [...] 12/16/2001 Document Revised: 09/12/2018 Document Reviewed: 04/25/2018 [employer] Patient Education 2020 [employer]. CARDIOVERSION Discharge instructions ACTIVITY/SAFETY Please refrain from [...] Document Reviewed: 09/10/2014 ExitCare Patient Information 2015 [employer]. This information is not intended to replace advicegiven to you by your health care provider. Make sure you discuss any questions you have with your health care provider. Additional Information VACCINATE! IT SAVES LIVES! Members of the community who have not yet received the COVID-19 vaccine and would like to receive it can visit one of [facility] vaccine clinics. There are many vaccine clinic locations within the [facility]. For locations and available times, please visit [email or web address] It is important to note that some COVID mobile vaccine clinics are held outdoors and may be canceled in rainy or stormy conditions. To learn more about pediatric vaccinations (ages 5-11), we invite you to visit the [facility] webpage. [email or web address]://[email or web address]/pages/[email or web address]-[email or web address]-[email or web address]-Orgab-Jga stions.htmlTo learn more about the COVID-19 vaccine, we invite you to visit the [facility] website for a list of frequently asked questions. [email or web address]/[email or web address] _[email or web address].pdf [facility] Patient Portal Access Instructions: Stay connected with your healthcare team and access your personal medical information anytime with the [facility] Patient [facility].If you would like a full copy of your medical records, please contact the [facility] Medical Records Department, Saturday through Saturday between 8a.m. and 4:30p.m. Please follow the directions below to access the portal: 1.Access the email account you provided upon registration to the [facility].2.Look for an invitation email from [facility].3.Open the email and access the invitation link: Accept Invitation to [facility]4.Fill in the required العلي to create your account. Sign into [email or web address] with your username and password that you [...] you will allow to register on the [facility] Patient Portal for access to your information. You can also access the [facility] Patient Portal on the [facility] aleena. Simply click on Health Records under HealthData and then click on the [facility] logo. HOW TO SAFELY DISPOSE OF PRESCRIPTION [...] Call your local pharmacy or go to http://bit.ly/4U4An7v to find one close to you.3.Make use of household items: Use cat litter or old coffee grounds to dispose medications if other options arenot available. Mix your drugs with these household products, seal them in an airtight container andthrow it into the garbage. Call [facility]: [phone] to be sure your drugs can be [...] aware that I should contact my doctor. 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 Patient location: [facility]. Notes: s/p DCCV. Assessment Postanesthesia assessment Vitals: [...] SOPHIA BAIRD MD on 09/14/2022 02:35 PM [facility] [id number] Anesthesiology Consult note Patient: YUE ANGULO Age: 62 years Sex: Female : [...] ATRIAL FIBRILLATION WITH RVR / SNOMED CT 4569885036 / Confirmed CHEST PAIN, ATYPICAL / SNOMED CT 797081477 / Confirmed Back pain / SNOMED CT 3539759545 / Confirmed CHEST WALL PAIN / SNOMED CT 598798910 / Confirmed Cirrhosis, non-alcoholic / SNOMED CT 530516650 / Confirmed DEHYDRATION / SNOMED CT 81961174 / Confirmed DIARRHEA / SNOMED CT 814830566 / Confirmed Eczema / SNOMED CT 63711110 / Confirmed GERD - Gastro-esophageal reflux disease / SNOMED CT 3992148259 / Confirmed HYPOTHYROIDISM / SNOMED CT 66419384 / Confirmed REFUSED INFLUENZA VACCINE / SNOMED CT 053854084 / Confirmed Migraine / SNOMED CT 63958413 / Confirmed SYNCOPE, NEAR / SNOMED CT 1669662767 / Confirmed STEATOHEPATITIS, NONALCOHOLIC / SNOMED CT 8316047938 / Confirmed FARSHAD (obstructive sleep apnea) / SNOMED CT 357463147 / Confirmed ASD secundum / SNOMED CT 433965616 / Confirmed Thyroid enlargement / SNOMED CT 393276560 / Confirmed Urinary incontinence / SNOMED CT 4836050055 / Confirmed REFUSED PNEUMOCOCCAL VACCINE / SNOMED CT 8129907684 / Confirmed, Active Problems (28) Anxiety ASD [...] Histories Past Medical History: Active Back pain (4363077410) Migraine (11241033) Urinary incontinence (2584819124) GERD - Gastro-esophageal reflux disease (9377256285) Thyroid enlargement (482264766) Eczema (82463367) Comments: 07/16/2013 EDT 11:50 EDT - KWAN Stanley Syl Trevino of back Family History: Cancer Father () Brother Cardiac pacemaker Father () Sister Atrial fibrillation Sister Mother High blood pressure Mother Heart failure Father () Stroke Mother Sister Pulmonary embolism Daughter Deep vein thrombosis Daughter Procedure history: Cardiac catheterization (35461051) on 04/13/2022 at 61 Years. Suspension of bladder (1315208). Dilation and curettage (67754905). Hysteroscopy (522908677). Tubal ligation (200315111). Bunionectomy (33083569). Tonsillectomy (092047522). Colonoscopy (012804292). EGD - Esophagogastroduodenoscopy (0286008108). PFO - Closure of patent foramen ovale (1912991267). Social History Social & Psychosocial Habits Alcohol [...] Resp Rate 18 br/min (SEP 14 11:57) GZV605 mmHg (SEP 14 11:57) DBPC 44mmHg (SEP 14 11:57) Measurements from flowsheet : Measurements 09/14/2022 11:57 EST Height 167 cm Admission Weight 79.7 kg Weight Method Actual [place] Body Weight 58.72 kg Pain assessment: Pain [...] Daughter Designated Person #2 We May Share 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 Advance Directive Location Patient [...] x 4 Safety Brochure Information Reviewed Yes [facility] Asif Video Viewed Patient refused Barriers to Learning None evident Teaching Method Explanation Teaching Evaluation Verbalizes/Nonverbally indicates understanding Preferred Written Language Taiwanese Preferred Spoken Language Taiwanese Information Given by Patient Patient's Current Physicians [...] evident Teaching Method Explanation Preferred Written Language Taiwanese Preferred Spoken Language Taiwanese General Infection Prevention Strategies Hand hygiene Pre Procedure/Surgery Education Appropriate expectations, Date/Time of procedure/surgery, Hospital gown requirement worn to OR, NPO . Assessment and Plan [place] Society of Anesthesiologists (ASA) physical status classification: Class III. Anesthetic Preoperative Plan Premedication: intravenous. Anesthetic technique: General. Maintenance airway: Mask. Postoperative pain management: Per surgeon. Risks discussed: nausea, vomiting, sore throat, allergic reaction, serious complications. Informed consent: signed by patient. Digitally Signed by SOPHIA BAIRD MD on 09/14/2022 01:10 PM [facility] [id number] Hospital Discharge instructions Patient Education 08/29/2022 12:02:30 [...] 09/09/2006 Document Revised: 08/26/2013 Document Reviewed: 09/10/2014 [employer]Christianacare Patient Information 2015 [employer]. This information is not intended to replace [...] including vitamins, herbs, eye drops, creams, and biaf-vvl-bocydwn medicines. Use of steroids (by mouth or [...] 06/04/2002 Document Revised: 08/22/2018 Document Reviewed: 12/29/2016 [employer] Patient Education 2020 [employer]. Follow Up Care 08/24/2022 09:17:16 With:HANK MCMULLEN MD Address: [address] [facility] [address] [facility] [place] [address]- [phone] When:09/28/2022 13:30:00 With:JOSE FELICIANO MD [facility] [address] [facility] [address] [facility] [place] [address]- [phone] ext [phone] When:10/02/2022 11:30:00 [facility] 12-07-2022 Summary of episode note Discharge Instructions Thank you for allowing [facility] to assist you with your healthcare needs. The following is importantdischarge information regarding your hospital visit. Your Care Team LINA ZENDEJAS MD What to do next Scheduled Follow-Up Appointments Appointment Type When Where Contact InformationCV Procedure - Echo (Adult) 09/26/2022 12:00 PM EST Heart Lab CV OV Structural Heart 09/28/2022 01:30 PM EST [facility] CV OV CHF 10/02/2022 11:30 AM EST [facility] Follow Up Appointments Follow Up with JOSE FELICIANO MD When 10/02/2022 11:30 AM EST Where: [address] [place] [address]- [phone] ext [phone] Follow Up with HANK MCMULLEN MD When 09/28/2022 01:30 PM EST Where: [address] [place] [address]- [phone] Allergies predniSONE Bactrim Cigarette smoke Dilaudid HYDROmorphone [...] Document Reviewed: 09/10/2014 ExitCare Patient Information 2015 [employer]. This information is not intended to replace [...] including vitamins, herbs, eye drops, creams, and igoj-mxm-chszheh medicines. Use of steroids (by mouth or [...] 06/04/2002 Document Revised: 08/22/2018 Document Reviewed: 12/29/2016 [employer] Patient Education 2020 [employer]. Additional Information VACCINATE! IT SAVES LIVES! Members of the community who have not yet received the COVID-19 vaccine and would like to receive it can visit one of [facility] vaccine clinics. There are many vaccine clinic locations within the [facility]. For locations and available times, please visit [email or web address]/. It is important to note that some COVID mobile vaccine clinics are held outdoors and may be canceled in rainy or stormy conditions. To learn more about pediatric vaccinations (ages 5-11), we invite you to visit the [facility] webpage. https://[email or web address]/pages/7143-Resxq-Zyvkmqfihen-Hjbrubhciz-Xectl-Dnn stions.htmlTo learn more about the COVID-19 vaccine, we invite you to visit the [facility] website for a list of frequently asked questions. [email or web address]-[email or web address]-[email or web address] _[email or web address]-Questions.pdf [facility] Patient Portal Access Instructions: Stay connected with your healthcare team and access your personal medical information anytime with the [facility] Patient Portal.If you would like a full copy of your medical records, please contact the [facility] Medical Records Department, Saturday through Saturday between 8a.m. and 4:30p.m. Please follow the directions below to access the portal: 1.Access the email account you provided upon registration [facility] the [facility].2.Look for an invitation email from [facility].3.Open the email and access the invitation link: Accept Invitation to [facility]4.Fill in the required العلي to create your account. Sign into [email or web address] with your username and password that you [...] you will allow to register on the [facility] Patient Portal for access to your information. You can also access the [facility] Patient Portal on the [facility] aleena. Simply click on Health Records under [employer] and then click on the [facility] logo. HOW TO SAFELY DISPOSE OF PRESCRIPTION [...] Call your local pharmacy or go to http://bit.ly/6Q2Mv1e to find one close to you.3.Make use of household items: Use cat litter or old coffee grounds to dispose medications if other options arenot available. Mix your drugs with these household products, seal them in an airtight container andthrow it into the garbage. Call [facility]: [phone] to be sure your drugs can be [...] been reviewed and explained to me and I,YUE ANGULO understand my current condition and have read and understand these discharge instructions. I have received a written copy of the plan/instructions. If I have questions, I am aware that I should contact my doctor. 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 Follow Up Follow Up with JOSE FELICIANO MD When 10/02/2022 11:30 AM EST Where: [address] [facility] [address] [facility] [place] [address]- [phone] ext [phone] Follow Up with HANK MCMULLEN MD When 09/28/2022 01:30 PM EST Where: [address] [facility] [place] [address]- [phone] Follow Up Appointments No qualifying data available. Follow Up Labs/Studies Discharge Labs No Follow-up Labs Discharge Studies No Follow-up Studies Discharge Diet No qualifying data available. Discharge Activity No qualifying data available. Readmission Risk/Palliative Score No qualifying data available. Digitally Signed by HANK MCMULLEN MD on 08/29/2022 11:15 AM [facility] [id number] Evaluation note* Encounter Date Assessment Date Assessment 08/23/2022 08/23/2022 mammo and colono scopy on hold until cardiac eval completed [facility] 07-21-2022 Hospital Discharge instructions Patient Education 04/12/2022 [...] need to report the following to your rn integrated: Any draining or oozing from the site [...] 09/09/2006 Document Revised: 08/26/2013 Document Reviewed: 09/10/2014 [employer] Patient Information 2015 [employer]. This information is not intended to replace advicegiven to you by your health care provider. Make sure you discuss any questions you have with your health care provider. Follow Up Care 04/03/2022 08:50:49 With:JOSE FELICIANO MD Address: [address] [facility] [address] [place] [address]- [phone] When: Unknown Comments:Follow-up as scheduled With:LINA ZENDEJAS MD, [facility], Internal Medicine Address: [facility] [address] [place] [phone] [phone] When: only if needed [facility] 07-21-2022 Summary of episode note Discharge Instructions Thank you for allowing [facility] to assist you with your healthcare needs. The following is importantdischarge information regarding your hospital visit. Your Care Team LINA ZENDEJAS MD What to do next Scheduled Follow-Up Appointments Appointment Type When Where Contact InformationCV Procedure - Echo (Adult) 04/18/2022 11:00 AM EDT Heart Lab Follow Up Appointments Follow Up with JOSE FELICIANO MD When Why: Follow-up as scheduled Where: [address] [facility] [address] [place] [address]- [phone] Follow Up with LINA ZENDEJAS MD, [facility], Internal Medicine When Only if needed Where: [facility] [address] [place] [phone] [phone] The Following Activity and Diet Have Been [...] mouth Every day Refills: 2 [facility] New potassium chloride (potassium chloride 20 mEq oral tablet, extended release) 1 tab(s) by mouth Once a day Take with food [facility] Unchanged cholecalciferol (Vitamin D3 1000 intl units oral tablet) 1 tab(s) by mouth Once a day Unchanged cyanocobalamin (Vitamin B12) Unchanged rivaroxaban (Xarelto 20 mg oral tablet) 1 tab(s) by mouth Daily at bedtime Unchanged vitamin E by mouth Once a day Pharmacy Information [facility]: [address] [place], [place] [phone] Please take this list to your next [...] may report side effects to FDA at 2-311-DGF-4973. What other drugs will affect potassium chloride? Tell your doctor about all your other medicines, especially: medicine to prevent organ transplant rejection; a diuretic or 'water pill'; or heart or blood pressure medication. This list is not complete. Other drugs may affect potassium chloride, including prescription and zjbz-omx-lsriahr medicines, vitamins, and herbal products. Not all [...] to ensure that the information provided by [employer]. ('[employer]') is accurate, up-to-date, and complete, but no guarantee is made to that effect. Drug information contained herein may be time sensitive. [employer] information has been compiled for use by healthcare practitioners and consumers in the [place] and therefore [employer] does not warrant that uses outside of the [place] are appropriate, unless specifically indicated otherwise. [employer] drug information does not endorse drugs, diagnose patients or recommend therapy. [employer] drug information isan informational resource designed to [...] effective or appropriate for any given patient. [employer] does not assume any responsibility for any aspect of healthcare administered with the aid of information [employer] provides. The information contained herein is not intended to cover all possible uses, directions, precautions, warnings, drug interactions, allergic reactions, or adverse effects. If you have questions about the drugs you are taking, check with your doctor, nurse or pharmacist. Copyright 5622-2519 [employer]. Version: 14.01. Revision Date: 02/18/2020. bumetanide (oral/injection) (heriberto le) Bumex What is the most important information [...] may report side effects to FDA at 8-155-IZC-6308. What other drugs will affect bumetanide? Bumetanide [...] drugs may affect bumetanide, including prescription and qpzj-yyf-lbmjaqi medicines, vitamins, and herbal products. Not all [...] to ensure that the information provided by [employer]. ('[employer]') is accurate, up-to-date, and complete, but no guarantee is made to that effect. Drug information contained herein may be time sensitive. [employer] information has been compiled for use by healthcare practitioners and consumers in the [place] and therefore [employer] does not warrant that uses outside of the [place] are appropriate, unless specifically indicated otherwise. [employer] drug information does not endorse drugs, diagnose patients or recommend therapy. [employer] drug information isan informational resource designed to [...] effective or appropriate for any given patient. [employer] does not assume any responsibility for any aspect of healthcare administered with the aid of information [employer] provides. The information contained herein is not intended to cover all possible uses, directions, precautions, warnings, drug interactions, allergic reactions, or adverse effects. If you have questions about the drugs you are taking, check with your doctor, nurse or pharmacist. Copyright 3987-5059 [employer]. Version: 7.02. Revision Date: 11/18/2020. Education Materials [...] need to report the following to your rn integrated: Any draining or oozing from the site [...] Document Reviewed: 09/10/2014 ExitCare Patient Information 2015 [facility], [facility]. This information is not intended to replace advicegiven to you by your health care provider. Make sure you discuss any questions you have with your health care provider. Additional Information VACCINATE! IT SAVES LIVES! Members of the community who have not yet received the COVID-19 vaccine and would like to receive it can visit one of [facility] vaccine clinics. There are many vaccine clinic locations within the [facility]. For locations and available times, please visit [email or web address]/. It is important to note that some COVID mobile vaccine clinics are held outdoors and may be canceled in rainy or stormy conditions. To learn more about pediatric vaccinations (ages 5-11), we invite you to visit the [facility] webpage. https://[email or web address]/pages/[email or web address]-Uvlpq-Pzlcdtpgiea-Esgonpiekf-Yytha-Gnm stions.htmlTo learn more about the COVID-19 vaccine, we invite you to visit the [facility] website for a list of frequently asked questions. [email or web address] _[email or web address] [facility] [place] [facility] Patient Portal Access Instructions: Stay connected with your healthcare team and access your personal medical information anytime with the [facility] Patient Portal.If you would like a full copy of your medical records, please contact the [facility] Medical Records Department, Saturday through Saturday between 8a.m. and 4:30p.m. Please follow the directions below to access the portal: 1.Access the email account you provided upon registration to the [facility].2.Look for an invitation email from [facility].3.Open the email and access the invitation link: Accept Invitation to [facility].Fill in the required العلي to create your account. Sign into www.[employer] with your username and password that you [...] you will allow to register on the [facility] Patient Portal for access to your information. You can also access the [facility] Patient Portal on the [facility] aleena. Simply click on Health Records under Ultrasound Medical DevicesData and then click on the [employer] logo. HOW TO SAFELY DISPOSE OF PRESCRIPTION [...] Call your local pharmacy or go to [email or web address] to find one close to you.3.Make use of household items: Use cat litter or old coffee grounds to dispose medications if other options arenot available. Mix your drugs with these household products, seal them in an airtight container andthrow it into the garbage. Call [facility]: [phone] to be sure your drugs can be [...] been reviewed and explained to me and I,YUE ANGULO understand my current condition and have read and understand these discharge instructions. I have received a written copy of the plan/instructions. If I have questions, I am aware that I should contact my doctor. 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 02-11-2022 History of Present illness Narrative* Nava Child RT(R) - 11/03/2021 1:00 PM EST Radiology Service Progress Note PATIENT NAME: Yue Angulo DATE OF SERVICE: November 03, 2021 [...] 03, 2021 1:05 PM [facility] Evaluation note No assessment recorded. Patient Targets Encounter Date Instructions Goals 02/16/2021 [employer] [facility] Anesthesiology Consult note* QUINCY CARIAS DO: PERFORM, SIGN, VERIFY Event Display: Anesthesiology Consultation Authored Date: [id number] Patient: YUE ANGULO Age: 62 years Sex: Female : [...] Daily, # 30 tab(s), 0 Refill(s), Pharmacy: [id number], 167.6, cm, 08/07/22 5:48:00 EST, Height bumetanide 1 mg oral tablet: Dose : 1 mg = 1 tab(s), Oral, Daily, PRN Swelling/weight gain, # 30 tab(s), 2 Refill(s), Pharmacy: [facility], 167.6, cm, 07/31/22 9:04:00 EST, Height, kg,07/31/22 9:04:00 EST, Dosing Weight metoprolol succinate 25 mg oral TABLET extended release: Dose : 12.5 mg = 0.5 tab(s), Oral, qDay, Do not crush or chew (controlled release), # 15 tab(s), 6 Refill(s), Pharmacy: [id number], 167.6, cm, 08/22/22 9:35:00 EST, Height Documented [...] ATRIAL FIBRILLATION WITH RVR / SNOMED CT 5476854067 / Confirmed CHEST PAIN, ATYPICAL / SNOMED CT 435413298 / Confirmed Back pain / SNOMED CT 4324057334 / Confirmed CHEST WALL PAIN / SNOMED CT 309532371 / Confirmed Cirrhosis, non-alcoholic / SNOMED CT 882231948 / Confirmed DEHYDRATION / SNOMED CT 68572486 / Confirmed DIARRHEA / SNOMED CT 620186108 / Confirmed Eczema / SNOMED CT 63552904 / Confirmed GERD - Gastro-esophageal reflux disease / SNOMED CT 6190046770 / Confirmed HYPOTHYROIDISM / SNOMED CT 98276942 / Confirmed REFUSED INFLUENZA VACCINE / SNOMED CT 440187455 / Confirmed Migraine / SNOMED CT 27886553 / Confirmed SYNCOPE, NEAR / SNOMED CT 7378426947 / Confirmed STEATOHEPATITIS, NONALCOHOLIC / SNOMED CT 3089950870 / Confirmed FARSHAD (obstructive sleep apnea) / SNOMED CT 810215869 / Confirmed ASD secundum / SNOMED CT 914080906 / Confirmed Thyroid enlargement / SNOMED CT 590928762 / Confirmed Urinary incontinence / SNOMED CT 4631831552 / Confirmed REFUSED PNEUMOCOCCAL VACCINE / SNOMED CT 1738912255 / Confirmed, Active Problems (28) Anxiety ASD [...] Histories Past Medical History: Active Back pain (5835356282) Migraine (53892420) Urinary incontinence (9473078216) GERD - Gastro-esophageal reflux disease (8866976583) Thyroid enlargement (580497925) Eczema (41064582) Comments: 07/16/2013 EDT 11:50 EDT - KWAN Stanley of back Family History: Cancer Father () Brother Cardiac pacemaker Father () Sister Atrial fibrillation Sister Mother High blood pressure Mother Heart failure Father () Stroke Mother Sister Pulmonary embolism Daughter Deep vein thrombosis Daughter Procedure history: Transesophageal echocardiogram ([id number]) on 09/14/2022 at 62 Years. Comments: 09/30/2022 [...] device. 2. No RICHARD thrombus. Cardiac catheterization ([id number]) on 08/29/2022 at 62 Years. Comments: 09/30/2022 18:00 Elana Paris MA (ABR-OE) No significant obstructive CAD. Normal LVEDP. Echocardiogram ([id number]) on 08/15/2022 at 61 Years. Comments: 09/30/2022 18:01 Elana Paris MA (ABR-OE) 1. Limited ECHO for assessment of pericardial effusion. 2. Left ventricle: Systolic function is normal. 3. Pericardium, extracardiac: A zaxf-de-alozoght, free-flowing pericardial effusion is identified posterior to [...] atrial pressure is 3 mm Hg. Echocardiogram ([id number]) on 08/08/2022 at 61 Years. Comments: 09/30/2022 [...] atrium: The atrium is mildly dilated. Echocardiogram ([id number]) on 08/07/2022 at 61 Years. Comments: 09/30/2022 18:03 Elana Paris MA (ABR-OE) Pericardium, extracardiac: A small to moderate posterior pericardial effusion is identified size 1.3 cm. There is no RV diastolic collapse noted. Previous TTE from March 2022 shows similar findings. Echocardiogram ([id number]) on 08/07/2022 at 61 Years. Comments: 09/30/2022 18:03 Elana Paris MA (ABR-OE) 1. Pericardium, extracardiac: A small pericardial effusion is identified. Features are not consistent with tamponade physiology. 2. Inferior vena cava: The IVC is trivially dilated Transesophageal echocardiogram ([id number]) on 08/07/2022 at 61 Years. Comments: 09/30/2022 [...] did not change post procedure Transesophageal echocardiogram ([id number]) on 06/15/2022 at 61 Years. Comments: 09/30/2022 [...] 0.5 cm area noted with a predominant dpok-tj-mbblo shunt on color Doppler as well as agitated saline study. Some right to left shunting noted with provocative maneuvers. 8. Inferior vena cava: The IVC is dilated at 2.2 cm. 9. Pericardium, extracardiac: A small pericardial effusion is identified Spirometry ([id number]) on 04/24/2022 at 61 Years. Comments: 09/30/2022 18:06 Elana Paris MA (ABR-OE) 1. Moderate degree of restrictive airway disease. 2. Bronchodilator therapy has not demonstrated any significant change indicating that the patient will not benefit from continued bronchodilator therapy. 3. No evidence of diffusion defect. Cardiac catheterization ([id number]) on 04/13/2022 at 61 Years. Suspension of bladder (6941128). Dilation and curettage (61614334). Hysteroscopy (461120828). Tubal ligation (227260234). Bunionectomy (68703885). Tonsillectomy (626296722). Colonoscopy (834893279). EGD - Esophagogastroduodenoscopy (3568209936). PFO - Closure of patent foramen ovale (9277679027). Cardioversion (795098066). Social History Social & Psychosocial Habits Alcohol [...] On and Limits Checked Nail Bed Color [place] Capillary Refill < 2 seconds Heart Sounds [...] Intact Skin Turgor Elastic Mucous Membrane Color [place] Mucous Membrane Description Moist Sensory Perception Ortiz [...] Transport Mode Order Detail MTT with Monitor Cup Setter Lockstitch Details Form Cup Setter Lockstitch Details Form 10/09/2022 1:27 EST Heart Rate [...] On and Limits Checked Nail Bed Color [place] Heart Rhythm Irregular Dorsalis Pedis Pulse, Left [...] Intact Skin Turgor Elastic Mucous Membrane Color [place] Mucous Membrane Description Moist Continuous IV Infusions [...] Level of Consciousness Alert Eye Opening Response Upper Tract Spontaneously ARDEN Yes Strength All Extremities Strong [...] have to contact him to discuss. Chris w/ Shan LEVI and was advised to give 250 dose and follow up with this in AM Results Read Back Yes 10/08/2022 19:44 EST Heart Rate Monitored 82 bpm Reason For Taking VItal Signs Routine Primary Pain Intensity 0 Pain Scale Type 0-10 Pain scale Monitor Alarms On and Limits Checked Nail Bed Color [place] Capillary Refill < 2 seconds Heart Sounds [...] Intact Skin Turgor Elastic Mucous Membrane Color [place] Mucous Membrane Description Moist Continuous IV Infusions [...] Opening Response Lizbeth Spontaneously Best Motor Response Upper Tract Obeys simple commands Best Verbal Response Lizbeth Oriented Lizbeth Coma Score 15 ARDEN Yes [...] - Phase I Not Done (Not Done) Cup Setter Lockstitch Details Form Not Done (Not Done) 10/08/2022 [...] 458. Pt [place] in [place] fib[place] [id number] Notification Outcome No return call Temperature Oral [...] On and Limits Checked Nail Bed Color [place] Capillary Refill < 2 seconds Heart Sounds [...] Intact Skin Turgor Elastic Mucous Membrane Color [place] Mucous Membrane Description Moist Sensory Perception Ortiz [...] On and Limits Checked Nail Bed Color [place] Capillary Refill < 2 seconds Heart Sounds [...] Elimination Voiding, no difficulties All Extremity Description [place], Normal for ethnicity Skin Temperature Warm Temperature All Extremities Warm Skin Description [place], Normal for ethnicity Skin Integrity Intact Skin Turgor Elastic Mucous Membrane Color [place] Mucous Membrane Description Moist Neurological Language Able [...] Transport Mode Order Detail MTT with Monitor Cup Setter Lockstitch Details Form Cup Setter Lockstitch Details Form 10/08/2022 9:28 EST Heart Rate [...] Communicated pt is admitted under Dr. [facility] Details of Results Received will call him [...] Person #2 We May Share PHI devorah [phone] POA Designated Person #2 Relationship Daughter Additional Designated Person Share PHI Harley son [phone] Privacy Restrictions Requested None Height 167.6 cm Height in inches 66 inch(es) Admission Weight 80.8 kg Weight Lbs 177.8 lb [place] Body Weight 59.26 kg Type of Scale [...] Loss No Safety Brochure Information Reviewed Yes Mar[facility] Asif Video Viewed Yes Barriers to Learning None evident Teaching Method Explanation Teaching Evaluation Verbalizes/Nonverbally indicates understanding Preferred Written Language Taiwanese Preferred Spoken Language Taiwanese Information Given by Patient Patient's Current Physicians [...] On and Limits Checked Nail Bed Color [place] Capillary Refill < 2 seconds Heart Sounds [...] Movement Makes facial grimaces All Extremity Description [place], Normal for ethnicity Skin Temperature Warm Temperature All Extremities Warm Skin Description [place], Normal for ethnicity Skin Integrity Intact Skin Turgor Elastic Mucous Membrane Color [place] Mucous Membrane Description Moist Neurological Language Able to speak clearly Neurological Symptoms Patient denies Gait Steady Extremity Movement Equal Swallowing Difficulty None Characteristics of Communication Appropriate Characteristics of Speech Clear Facial Symmetry Symmetric Level of Consciousness Alert Aspiration Risk None Eye Opening Response Lizbeth Spontaneously Best Motor Response Upper Tract Obeys simple commands Best Verbal Response Upper Tract Oriented Lizbeth Coma Score 15 ARDEN Yes [...] Room check performed . Assessment and Plan [place] Society of Anesthesiologists (ASA) physical status classification: [...] QUINCY CARIAS DO on 10/09/2022 06:09 AM [facility] Discharge summary Author Gamal [facility] Note Date/Time December 09, 2024 1:4 4pm [facility] Medical Records Department [address] [place] [address] Emergency Department Summary 12/09/24 MR#: [id number] Acct: [id number] Name: YUE ANGULO Rep #:[id number] : 1960 64 From: Gamal Simons DO PCP: Dr. Lina Zendejas MD Status:R ER Location: ED HPI History of Present Illness Chief Complaint: Chest Pain Narrative Narrative: Patient is a 64-year-old female with past medical history of atrial fibrillation/atrial flutter on Eliquis, pulmonary hypertension, FARSHAD, CHF, anxiety, IBS, GERD who presented to the emergency department the chief complaintof chest pain. Patient states that she has had chest pain on and off since the middle of October. States that she was supposed to see a rn integrated at 3:15 PM this afternoon at [facility] with Dr. Mcmullen. She states that she also follows with the heart failure specialist there as well as the car pick up driver there. She states that she has had a partial ablation in the past as she had not been able to undergo the full procedure secondary to a repaired ASD. Patient states that the pain woke her up out of the a sleep this morning around 7 AM. States that she took her metoprolol and noted that she felt like she wanted to atrial fibrillation. States that she had worsening paintherefore she came here for the valuation management. Patient states that her pain does not radiate where. Patient states that she is not currently on digoxin nor Cardizem she states that her car pick up driver was trying to for medications to control her rate in the past therefore these medications are in her chart. Patient denies any sick contacts otherwise feels well. Patient states that she has been compliant with her Xarelto not missing doses [facility] Medical History Wears glasses Depression Anxiety Arthritis Fatty liver Easy bruising Restless legs Migraine headache History of IBS GERD (gastroesophageal reflux disease) CPAP (continuous positive airway pressure) dependence Chronic cough Shortness of breath on exertion Non-smoker History of echocardiogram History of stress test Hypertension Cardiology follow-up encounter History of atrial fibrillation A-fib Pulmonary HTN Sleep apnea Home Medications ?Medication ?Instructions ?Recorded ?Last Taken ?Type rivaroxaban 20 mg tablet (Xarelto) 20 mg PO QPM BLOOD THINNER 03/14/22 12/25/23 History buspirone 5 mg tablet 5 mg PO TID PRN ANXIETY 09/2312/29/23 History cholecalciferol (vitamin D3) 25 25 mcg PO DAILY SUPPLE MENT 10/09/23 07/28/24 History mcg (1,000 unit) tablet (Vitamin D3) cyanocobalamin (vitamin B-12) 1,000 mcg PO DAILY SUPPL EMENT 10/09/23 07/27/24 History 1,000 mcg capsule dofetilide 500 mcg capsule 500 mcg PO BID AFIB 4 12/29/23 History (Tikosyn) magnesium 250 mg tablet 250 mg PO BID SUPPLEMENT 12/29/23 History potassium chloride 20 mEq 20 meq PO DAILY PRN SUPPLEME NT 10/09/23 12/27/23 History tablet,extended release (K-Tab) tadalafil 20 mg tablet 20 mg PO BID LUNGS 10/09/23 12/29/23 History digoxin 125 mcg (0.125 mg) tablet 125 mcg PO DAILY 10/1607/27/24 History aspirin 81 mg chewable tablet 1 tab PO DAILY 07/16/24 07/26/24 History diltiazem HCl 30 mg tablet 30 mg PO Q6H PRN afib 07/1607/28/24 History (Cardizem) ondansetron 4 mg disintegrating 4 mg PO Q8H PRN nausea and 07/16/24 Unknown Rx tablet vomiting #12 tabs Allergy/AdvReac Type Severity Reaction Status Date / Time codeine Allergy Other Verified 07/28/24 23:00 ibuprofen (From Motrin) Allergy Hives Verified 07/28/24 23:00 Iodinated Contrast Media (CT) Allergy Chest Verified 07/28/24 23:00 tightness morphine Allergy Hives Verified 07/28/24 23:00 phenytoin sodium (From Allergy Other Verified 07/28/24 23:00 Dilantin) phenytoin sodium extended Allergy Other Verified 07/28/24 23:00 (From Dilantin) sulfamethoxazole (From Allergy Hives Verified 07/28/24 23:00 Bactrim) trimethoprim (From Bactrim) Allergy Hives Verified 07/28/24 23:00 Family History Father Lung cancer Obesity Aunt Diabetes CAD (coronary artery disease) Mother VSD (ventricular septal defect) Thyroid disorder Brother Leukemia Grandmother Breast cancer Surgical History History of cardiac catheterization History of atrial septal defect repair (~2021) S/P ERCP S/P laparoscopic cholecystectomy Hx of maze procedure Hx of tubal ligation History of bunionectomy Hx of tonsillectomy Social History Smoking Status: Never smoker ROS ROS ED ROS Narrative Constitutional: Denies fevers, chills, headaches, lightness, dizziness Eyes: Denies change in vision double vision blurry vision Cardiovascular: Complaint chest pain as noted above denies palpitations Respiratory: States that she developed shortness of breath with exertion Abdomen: Denies abdominal pain nausea vomit diarrhea : Denies urinary symptoms Neurological: Denies numbness, weakness, tingling Musculoskeletal: Denies back pain Skin: Denies rashes or lesions EXAM Physical Exam Const Vital Signs: 12/09/24 08:51 12/09/24 08:59 12/09/24 10:44 Temperature 98.9 F Temperature Source Oral Pulse Rate 116 H 98 Respiratory Rate 18 19 H Blood Pressure 136/84 H Blood Pressure Mean 101 Pulse Ox 98 97 Oxygen Delivery Method Room Air Room Air Room Air 12/09/24 11:00 12/09/24 12:00 12/09/24 13:00 Temperature Temperature Source Pulse Rate 111 H 68 Respiratory Rate 20 H 19 H Blood Pressure 124/73 H 124/76 H 113/58 L Blood Pressure Mean 90 92 73 Pulse Ox 96 Oxygen Delivery Method MDM MDM MDM Narrative Medical decision making narrative: Patient is a 64-year-old female who presented to the emerged part with chief complaint chest pain and concern for being in atrial fibrillation/atrial flutter. On the differential diagnose includes but not limited to atrial fibrillation, atrial flutter, ACS, pneumonia, pneumothorax, CHF exacerbation. Once workup is obtained reviewed she will be reevaluated. Echo from 10/10/2023 was reviewed which showed ejection fraction of 55 to 60% at that point in time. She had normal aortic root no pericardial effusion noted. Patient's CBC was reviewed and showed no evidence leukocytosis white blood countnormal 5.8, hemoglobin 14.2, platelet count normal at 167. Patient INR 1.3, PT of 15.9 is chronically anticoagulated on Xarelto. Patient sodium normal 139, potassium normal at 4.1, creatinine normal at 0.80. Patient's troponin was noted be 7 with a delta troponin normal at 9. Patient's original EKG showed atrial flutter with a rate of 113 bpm. Patient's proBNP normal at 225. Patient's chest x-ray reviewed by myself by radiology showed no acute cardiopulmonary processes. On reevaluation the patient she has. Did convert into sinus rhythm on the monitor therefore EKG will be repeated. This repeat EKG was reviewed by myself which showed sinus bradycardia with a rate of 59 bpm with evidence of first-degree AV block. I called and discussed case with her rn integrated at [facility] Dr. Mcmullen and states that she had a heart cath about 2 years ago that was normal. She does not have any underlying vascular disease he states. He states that she canbe discharged and come to her appointment in his office at 315 this afternoon. I discussed this plan and results with the patient she is agreeable this plan all question concerns answered she is discharged home in stable condition. Lab Data Labs: Laboratory Results - last 24 hr 12/09/24 12/09/24 09:13 11:21 WBC 5.8 RBC 4.63 Hgb 14.2 Hct 40.0 MCV 86.4 MCH 30.7 MCHC 35.5 RDW Std Deviation 42.1 RDW Coeff of Jenn 13.8 Plt Count 167 MPV 10.1 Immature Gran % (Auto) 0.500 Neut % (Auto) 62.0 Lymph % (Auto) 27.1 [place] % (Auto) 7.2 Eos % (Auto) 2.7 Baso % (Auto) 0.5 Absolute Neuts (auto) 3.6 Absolute Lymphs (auto) 1.58 Nucleated RBC % 0 PT 15.9 H INR 1.3 APTT 23.4 L Sodium 139 Potassium 4.1 Chloride 104 Carbon Dioxide 22.7 Anion Gap 12 BUN 14 Creatinine 0.80 Est GFR (MDRD) Non-Af 83 BUN/Creatinine Ratio 16.9 Glucose 109 H Calcium 9.6 Troponin T High Sens 7 Troponin T Hi Sens 2 Hr 9 NT pro BNP II 225 Radiography Diagnostic Testing: Clinical Impression(s) from Imaging Studies Chest X-Ray 12/09/24 08:56 IMPRESSION: No acute abnormality is seen. Reading Location: [place] [address] Discharge Plan Triage Chief Complaint: Chest Pain ED Provider: Gamal Simons Dx/Rx/DC Orders Clinical Impression: Chest pain, Atrial fibrillation and flutter Prescriptions: No Action digoxin 125 mcg (0.125 mg) tablet 125 mcg PO DAILY Xarelto 20 mg Tablet 20 mg PO QPM Rx Instructions: TAKE ONE TABLET BY MOUTH ONCE DAILY. MUST ADMINISTER WITH MEAL. cyanocobalamin (vitamin B-12) 1,000 mcg capsule 1,000 mcg PO DAILY dofetilide [Tikosyn] 500 mcg capsule 500 mcg PO BID tadalafil 20 mg tablet 20 mg PO BID magnesium 250 mg tablet 250 mg PO BID cholecalciferol (vitamin D3) [Vitamin D3] 25 mcg (1,000 unit) tablet 25 mcg PO DAILY potassium chloride [K-Tab] 20 mEq tablet extended release 20 meq PO DAILY PRN (Reason: SUPPLEMENT ) Patient Comments: PT STATES THEY TAKE ONE POTASSIUM CHLORIDE 20MEQ ONCE DAILY ONLY IF THEY TAKEA DOSE OF BUMETANIDE ( OF 10-09-22) Rx Instructions: TAKE ONE TABLET BY MOUTH ONCE DAILY ONLY IF BUMETANIDE IS TAKEN buspirone 5 mg tablet 5 mg PO TID PRN (Reason: ANXIETY ) aspirin 81 mg tablet,chewable 1 tab PO DAILY diltiazem HCl [Cardizem] 30 mg tablet 30 mg PO Q6H PRN (Reason: afib) ondansetron 4 mg tablet,disintegrating 4 mg PO Q8H PRN (Reason: nausea and vomiting) Qty: 12 0RF Primary Care Provider: Lina Zendejas Referrals: Lina Zendejas MD [Primary Care Provider] - Activity Restrictions/Additional Instructions: Follow-up with your rn integrated at your scheduled appointment today. Return with worsening symptoms or other concerns. Print Language: Taiwanese Disposition Disposition: Home, Self Care What to do if you have Problems For any increased pain, shortness of breath, bleeding, nausea or vomiting, chestpain, or any unexpected problems, contact your Primary Care Provider. Call [facility] ([phone]) or report to the closest Emergency Room. Call 911 if necessary. 12/09/24 1344 <Electronically signed by Gamal Simons DO> Cosigner Signature (if applicable): CC: Dr. Lina Zendejas MD ~ Signed [facility] Work Phone: Evaluation + Plan note Future Appointments Appointment Date:04/12/2022 07:30:00 AM Scheduled Provider: Location:Heart Lab Appointment Type:CV Procedure - Heart Lab/Hybrid OR Appointment Date:04/18/2022 11:00:00 AM Scheduled Provider: Location:[facility] Appointment Type:CV Procedure - Echo (Adult) Diagnostic Tests Pending * Antinuclear Antibody Screen, Serum 04/10/22 [facility] Evaluation + Plan note Future Appointments Appointment Date:04/18/2022 11:00:00 AM Scheduled Provider: Location:[facility] Appointment Type:CV Procedure - Echo (Adult) [facility] Evaluation + Plan note Future Appointments Appointment Date:07/06/2022 03:15:00 PM Scheduled Provider: Location:[facility] CAN Appointment Type:CV FINANCIAL OPERATIONS CLERK Structural Heart [facility] evaluation + Plan note Future Appointments Appointment Date:08/07/2022 07:30:00 AM Scheduled Provider: Location:Heart Lab Appointment Type:CV Procedure - Heart Lab/Hybrid OR [facility] evaluation + Plan note Future Appointments Appointment Date:08/22/2022 [...] Panel 08/14/22 * Complete Blood Count 08/14/22 [facility] evaluation + Plan note Future Appointments Appointment Date:08/29/2022 10:00:00 AM Scheduled Provider: Location:Heart Lab Appointment Type:CV Procedure - Heart Lab/Hybrid OR Appointment Date:09/26/2022 12:00:00 PM Scheduled Provider: Location:[facility] Appointment Type:CV Procedure - Echo (Adult) Appointment Date:09/28/2022 01:30:00 PM Scheduled Provider: Location:[facility] Appointment Type:CV OV Structural Heart Appointment Date:10/02/2022 11:30:00 AM Scheduled Provider: Location:[facility] Appointment Type:CV OV CHF Future Scheduled Tests Laboratory* Basic Metabolic Panel 08/14/22 * Complete Blood Count 08/14/22 [facility] evaluation + Plan note Future Appointments Appointment Date:09/26/2022 12:00:00 PM Scheduled Provider: Location:[facility] Appointment Type:CV Procedure - Echo (Adult) Appointment Date:09/28/2022 01:30:00 PM Scheduled Provider: Location:[facility] Appointment Type:CV OV Structural Heart Appointment Date:10/02/2022 11:30:00 AM Scheduled Provider: Location:[facility] Appointment Type:CV OV CHF Future Scheduled Tests Laboratory* Basic Metabolic Panel 08/14/22 * Complete Blood Count 08/14/22 [facility] evaluation + Plan note Future Appointments Appointment Date:09/26/2022 12:00:00 PM Scheduled Provider: Location:[facility] Appointment Type:CV Procedure - Echo (Adult) Appointment Date:09/28/2022 01:30:00 PM Scheduled Provider: Location:[facility] Appointment Type:CV OV Structural Heart Appointment Date:10/02/2022 11:30:00 AM Scheduled Provider: Location:[facility] Appointment Type:CV OV CHF Appointment Date:10/24/2022 02:00:00 PM Scheduled Provider: Location:[facility] Appointment Type:CV FINANCIAL OPERATIONS CLERK [facility] evaluation + Plan note Future Appointments Appointment Date:10/24/2022 02:00:00 PM Scheduled Provider: Location:[facility] Appointment Type:CV [facility] evaluation + Plan note Future Appointments Appointment Date:01/21/2023 10:45:00 AM Scheduled Provider: Location:[facility] Appointment Type:CV OV Appointment Date:11/22/2023 04:30:00 PM Scheduled Provider: Location:[facility] Appointment Type:CV OV [facility] evaluation + Plan note Future Appointments Appointment Date:02/15/2023 10:45:00 AM Scheduled Provider: Location:[facility] Appointment Type:CV OV Appointment Date:11/22/2023 04:30:00 PM Scheduled Provider: Location:[facility] Appointment Type:CV OV [facility] evaluation + Plan note Future Appointments Appointment Date:05/08/2023 08:00:00 AM Scheduled Provider:AMARIS RUIZ Location:[facility] Appointment Type:Telephone Appointment Date:05/20/2023 10:00:00 AM Scheduled Provider:AMARIS RUIZ Location:[facility] Appointment Type:[facility] OV Post Op Appointment Date:09/20/2023 03:30:00 PM Scheduled Provider: Location:[facility] Appointment Type:CV OV Appointment Date:11/22/2023 04:30:00 PM Scheduled Provider: Location:[facility] Appointment Type:CV OV Future Scheduled Tests Radiology* XR Chest 2 Views (PA & Lateral) 05/20/23 [facility] Evaluation + Plan note Future Appointments Appointment Date:06/14/2023 11:00:00 AM Scheduled Provider: Location:[facility] Appointment Type:CV OV Appointment Date:09/20/2023 03:30:00 PM Scheduled Provider: Location:[facility] Appointment Type:CV OV Appointment Date:11/22/2023 04:30:00 PM Scheduled Provider: Location:[facility] Appointment Type:CV OV [facility] Evaluation + Plan note Future [...] Panel (poc) 06/07/23 * Sodium (poc) 06/07/23 [facility] Evaluation + Plan note Future Appointments Appointment Date:06/14/2023 11:00:00 AM Scheduled Provider: Location:[facility] Appointment Type:CV OV Appointment Date:07/03/2023 03:45:00 PM Scheduled Provider: Location:[facility] Appointment Type:CV OV Appointment Date:09/20/2023 03:30:00 PM Scheduled Provider: Location:[facility] Appointment Type:CV OV Appointment Date:11/22/2023 04:30:00 PM Scheduled Provider: Location:[facility] Appointment Type:CV OV [facility] Evaluation + Plan note Future Appointments Appointment Date:05/27/2024 04:15:00 PM Scheduled Provider: Location:[facility] Appointment Type:CV OV Appointment Date:09/25/2024 11:30:00 AM Scheduled Provider: Location:[facility] Appointment Type:CV OV Future Scheduled Tests Laboratory* Basic Metabolic Panel 03/18/24 [facility] Evaluation + Plan note Future Appointments Appointment Date:02/09/2025 11:00:00 AM Scheduled Provider:JACY BAUMAN Location:[facility] Appointment Type:CV OV Hospital Follow Up Appointment Date:06/18/2025 01:00:00 PM Scheduled Provider:RUSSELL MCMULLEN Location:[facility] Appointment Type:CV OV Appointment Date:01/05/2026 10:45:00 AM Scheduled Provider:RUSSELL HARDY Location:[facility] Appointment Type:CV OV Future Scheduled Tests Laboratory* Basic Metabolic Panel 03/18/24 [facility] Evaluation note* Encounter Date Assessment Date Assessment 11/13/2021 11/13/2021 UC imaging/labs/ consults reviewed and discussed in entirety with patient - all questions answered. med list reconicled with UC note and pt - finished abt, has 2 days prednisone to finish Patient Targets Encounter Date Instructions Goals 11/13/2021 [employer] [place] note No assessment recorded. [employer] Evebtuioqn noteNo assessment information available [facility] Work Phone: Evaluation note* Encounter Date Assessment Date Assessment 03/14/2023 03/14/2023 pt applying for [employer] disability--her rep will send info re: letter pt may need from me to back up her claim--mainly focused on FARSHAD and afib. [employer] Evaluefyvm note* Diagnosis Fever, unspecified fever cause- Primary Suspected COVID-19 virus infection [facility] COVID-19- Primary [facility]* Diagnosis Onset Date Resolution Status Abdominal pain acute Acute cholecystitis acute Choledocholithiasis acute Cholelithiasis acute Elevated liver enzymes acute [facility] Work Phone: Evaluation note* Diagnosis Onset Date Resolution Status A-fib acute Abdominal pain acute Cirrhosis acute Pulmonary HTN acute S/P ERCP acute S/P laparoscopic cholecystectomy acute Sleep apnea acute Acute cholecystitis resolved Choledocholithiasis resolved Cholelithiasis resolved Elevated liver enzymes resol mariela [facility] Work Phone: Evaluation note* Encounter Date Assessment Date Assessment LastModified by Organization Details LastModified Time 10/17/2023 10/17/2023 inpatient imaging/labs/ consults reviewed and discussed in entirety with patient - all questions answered. med list reconciled with dc summary [email or web address] Not available 10/16/2023 13:24:02 [employer] Evaluation note* Diagnosis Onset Date Resolution Status A-fib acute Pulmonary HTN acute S/P ERCP acute Sleep apnea acute S/P laparoscopic cholecystectomy chronic Abdominal pain resolved Acute cholecystitis resolved Choledocholithiasis resolved Cholelithiasis resolved Elevated liver enzymes resol mariela S/P laparoscopic cholecystectomy chronic NAFLD (nonalcoholic fatty liver disease) chronic S/P laparoscopic cholecystectomy [facility] Work Phone: Evaluation note* Diagnosis Pain of toe of left foot Pain in limb Toe injury, left, initial encounter [facility] Diagnosis Cough COVID-19 [facility]* Encounter Date Assessment Date Assessment LastModified by Organization Details LastModified Time 07/21/2024 07/21/2024 ED imaging/labs/ consults reviewed and discussed in entirety with patient - all questions answered med list reconciled with ED note [email or web address] Not available 07/20/2024 09:42:31 [employer] Hispnti general Narrative - Reported* Condition Response Migraine [...] GPAL:G 0 P 0 0 0 0 [employer], [facility] Hisogsl general Narrative - Reported* Condition Response Migraine [...] GPAL:G 0 P 0 0 0 0 [employer] Hiswyri general Narrative - Reported* Condition Response Migraine [...] GPAL:G 0 P 0 0 0 0 [employer] Hishsxh general Narrative - Reported* Condition Response Gout [...] GPAL:G 0 P 0 0 0 0 [employer] history general Narrative - Reported* Condition Response Gout [...] GPAL:G 0 P 0 0 0 0 [employer] history general Narrative - Reported* Condition Response [...] GPAL:G 0 P 0 0 0 0 [employer] history general Narrative - Reported* Condition Response [...] GPAL:G 0 P 0 0 0 0 [employer] history general Narrative - Reported* Condition Response [...] GPAL:G 0 P 0 0 0 0 [employer] history general Narrative - Reported* Condition Response [...] GPAL:G 0 P 0 0 0 0 [employer] history general Narrative - Reported* Condition Response Gout N Atrial Fibrillation Y Kidney Stones N Hyperthyroidism N Depression N COPD N Parkinson's N Obstructive Sleep Apnea Y Anxiety Disorder N Prostate disease N Arthritis N Restless Leg Syndrome N Cancer N IBS N Stroke N [...] GPAL:G 0 P 0 0 0 0 [employer] History general Narrative - Reported* Condition Response Gout [...] GPAL:G 0 P 0 0 0 0 [employer] Hospital course Narrative No data available for this section [facility] Hospital Discharge instructions No data available for this section [facility] Hospital Discharge instructions Additional Instructions Follow-up with your rn integrated at your scheduled appointment today. Return with worsening symptoms or other concerns.[facility] Work Phone: Note* JOSE FELICIANO MD: SIGN, VERIFY Event Display: Echocardiogram Follow up, Adult - CV Authored Date: [facility] Note* VELIA CACERES MD: SIGN, VERIFY Event Display: VL Venous US/Doppler One Leg (for DVT). [facility] Note* HANK MCMULLEN MD: SIGN, VERIFY Event Display: Cardiac Catheterization -CV Authored Date: [facility] Progress note No data available for this section [facility] Reason for referral (narrative)* Diagnostic Procedure Only (Urgent) - Closed Specialty Diagnoses / Procedures Referred By Contac t Referred To Contact XR IMAGING Diagnoses Pain of toe of left foot Toe injury, left, initial encounter Procedures XR TOE AP/LAT/OBL LEFT RADEX TOE MINIMUM 2 VIEWS Erika Garcia, REGIONAL CONTROLLER.[address] [place] [address] [place] [address] Referral ID Status Reason Start Date Expiration Date V isits Requested Visits Authorized [id number] Closed Auto-Generate d Referral 02/19/2023 03/20/2024 1 1 [facility]ative)No reason for referral information [facility]WKn[facility] Work Phone: Reason for visit Narrative* Diagnostic Procedure Only (Urgent) - Closed Specialty Diagnoses / Procedures Referred By Contac t Referred To Contact XR IMAGING Diagnoses Pain of toe of left foot Toe injury, left, initial encounter Procedures XR TOE AP/LAT/OBL LEFT RADEX TOE MINIMUM 2 VIEWS Erika Garcia, REGIONAL CONTROLLER.[address] [place] [address] [place] [address] Referral ID Status Reason Start Date Expiration Date V isits Requested Visits Authorized [id number] Closed Auto-Generate d Referral 02/19/2023 03/20/2024 1 1 [facility] Reason for Referral Referring Physician: Lina Zendejas, Internal Medicine, Encounter Date: 01/19/2013 bilat arm pain/numbness, abn l MRI cspine. records to follow. Referring Physician: Lina Zendejas, Internal Medicine, Encounter Date: 11/18/2013 Endocrinology Referral for H yperthyroidism please contact patient for appointment, records to follow, thank you! Referring Physician: Bibiana Arvizu, Internal Medicine, Encounter Date: 12/16/2014 First colonoscopy Referring Physician: Bibiana Arvizu, Internal Medicine, Encounter Date: 10/07/2015 First colonoscopy, fatty bran er, enlarged spleen Referring Physician: Bibiana Arvizu Internal Medicine, Encounter Date: 10/24/2015 Adjutant General Referral for Ci rrhosis of liver cirrhosis/splenomegaly on US and CT, but normal labs except +OSMAN. Referring Physician: Lina Zendejas Internal Medicine, Encounter Date: 01/05/2016 Paper Cutting Machine Operator Referral for At rial fibrillation new onset A-fib was seen by Dr Walker at [facility] Referring Physician: Lina Zendejas Internal Medicine, Encounter [...] Bibiana Arvizu Internal Medicine, Encounter Date: 10/24/2015 Adjutant General Referral for Ci rrhosis of liver cirrhosis/splenomegaly on US and CT, but normal labs except +OSMAN. Referring Physician: Lina Zendejas Internal Medicine, Encounter Date: 01/05/2016 Paper Cutting Machine Operator Referral for At rial fibrillation new onset A-fib was seen by Dr Walker at [facility] Referring Physician: Lina Zendejas Internal Medicine, Encounter Date: 06/10/2018 Cannon Crewmember Referral for Screening for malignant neoplasm of [...] Bibiana Arvizu Internal Medicine, Encounter Date: 10/24/2015 Adjutant General Referral for Ci rrhosis of liver cirrhosis/splenomegaly on US and CT, but normal labs except +OSMAN. Referring Physician: Lina Zendejas Internal Medicine, Encounter Date: 01/05/2016 Paper Cutting Machine Operator Referral for At rial fibrillation new onset A-fib was seen by Dr Walker at [facility] Referring Physician: Lina Zendejas Internal Medicine, Encounter Date: 06/10/2018 Cannon Crewmember Referral for Screening for malignant neoplasm of colon Referring Physician: Lina Zendejas Internal Medicine, Encounter Date: 04/06/2021 Vestibular Therapy Referral for Dizziness Referring Physician: Clement Velez Internal Medicine, Encounter Date: 11/13/2021 Paper Cutting Machine Operator Referral for At rial fibrillation chronic, recurrent a fib. would like new rn integrated Referring Physician: Lina Zendejas Internal Medicine, Encounter [...] Bibiana Arvizu Internal Medicine, Encounter Date: 10/24/2015 Adjutant General Referral for Ci rrhosis of liver cirrhosis/splenomegaly on US and CT, but normal labs except +OSMAN. Referring Physician: Lina Zendejas Internal Medicine, Encounter Date: 01/05/2016 Paper Cutting Machine Operator Referral for At rial fibrillation new onset A-fib was seen by Dr Walker at [facility] Referring Physician: Lina Zendejas Internal Medicine, Encounter Date: 06/10/2018 Vestibular Therapy Referral for Dizziness Referring Physician: Clement Velez Internal Medicine, Encounter Date: 11/13/2021 Paper Cutting Machine Operator Referral for At rial fibrillation chronic, recurrent a fib. would like new rn integrated Referring Physician: Lina Zendejas Internal Medicine, Encounter Date: 02/15/2022 Skiver Machine Referral for P ulmonary hypertension Referring Physician: [...] Bibiana Arvizu Internal Medicine, Encounter Date: 10/24/2015 Adjutant General Referral for Ci rrhosis of liver cirrhosis/splenomegaly on US and CT, but normal labs except +OSMAN. 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 would like new rn integrated Referring Physician: Lina Zendejas, Internal Medicine, Encounter Date: 02/15/2022 Skiver Machine Referral for P ulmonary hypertension Referring Physician: Lina Zendejas, Internal Medicine, Encounter Date: 03/13/2022 Physical Therapist Referral for Neck pain Referring Physician: Clement Velez, Internal Medicine, Encounter Date: 11/14/2023 Family History [...] COPD Father Obesity Sister Cerebrovascular accident Relationship Condition Age at Onset Recorded Date/T kassandra father Malignant neoplasm of lung Unknown Obesity Unknown aunt Diabetes mellitus Unknown Coronary artery disease Unknown mother Ventricular septal defect Unknown Disorder of thyroid Unknown brother Leukemia Unknown grandmother Malignant neoplasm of breast Unknown Relationship Description Onset Age of this Age [...] Age of this Age Resolved Age Notes LastModified by Organization Details LastModified Time Mother Hypothyroidgiovanni morgan [email or web address] Not available 06/23 15:49:44 Mother Cerebrovascu lar accident previo usly record ed as Stroke lyoho Not available 12/20/2014 19:37:18 Paternal Grandmother Malignant tumor of breast previo usly record ed as Breast CA lyoho Not available 12/20/2014 19:37:18 Brother Problem BIPOLA R DISORD ER (previ ously record ed as Other) [email or web address] Not available 07/06/2021 15:49:44 Brother Malignant neoplastic disease LEUKEM [place] (previ ously record ed as Cancer ) lyoho Not available 12/20/2014 19:37:18 Father Chronic obstructive pulmonary disease previo usly record ed as COPD lyoho Not available 12/20/2014 19:37:18 Father Obesity lyoho Not available 19:37:18 Sister Cerebrovascu lar accident [email or web address] Not available 16:03:42 Relationship Description Onset Age of this Age Resolved Age Notes LastModified by Organization Details LastModified Time Mother Hypothyroidi eddie [email or web address] r Not available 12/10/2024 13:47:39 Mother Cerebrovascu lar accident previo usly record ed as Stroke lyoho Not available 12/20/2014 19:37:18 Paternal Grandmother Malignant tumor of breast previo usly record ed as Breast CA lyoho Not available 12/20/2014 19:37:18 Brother Problem BIPOLA R DISORD ER (previ ously record ed as Other) [email or web address] r Not available 12/10/2024 13:47:39 Brother Malignant neoplastic disease LEUKEM IA (previ ously record ed as Cancer ) lyoho Not available 12/20/2014 19:37:18 Father Chronic obstructive pulmonary disease previo usly record ed as COPD lyoho Not available 12/20/2014 19:37:18 Father Obesity lyoho Not available 19:37:18 Sister Cerebrovascu lar accident [email or web address] Not available 16:03:42 Summary Purpose Advance Directives Advance Directive Response Recorded Date/ Time Living Will Yes March 14, 2022 10:03am Power of Concrete Mixing Plant Laborer Yes March 14 10:03am Name of Medical Power of Concrete Mixing Plant Laborer Jessica- daughter lives in [place] March 14, 2022 10:03am Advance Directive Response Recorded Date/ Time Living Will Yes March 14, 2022 9:03am Power of Concrete Mixing Plant Laborer Yes March 14 9:03am Advance Directive Response Recorded Date/ Time Living Will No October 09 6:30am Power of Concrete Mixing Plant Laborer No October 09, 2023 6:30am Advance Directive Response Recorded Date/ Time Name of Medical Power of Concrete Mixing Plant Laborer Devorah Moshe October 09, 2023 2:19pm Living Will No October 09 2:19pm Power of Concrete Mixing Plant Laborer Yes October 09, 2023 2:19pm Advance Directive Response Recorded Date/ Time Name of Medical Power of Concrete Mixing Plant Laborer Devorah Moshe October 09, 2023 2:19pm Name of Medical Power of Concrete Mixing Plant Laborer wilbur moshe November 07, 2023 11:24pm Living Will No November 07, 2 024 11:24pm Power of Concrete Mixing Plant Laborer Yes November 07, 2023 11:24pm Advance Directive Response Recorded Date/ Time Name of Medical Power of Concrete Mixing Plant Laborer Devorah Moshe October 09, 2023 3:19pm Name of Medical Power of Concrete Mixing Plant Laborer ON FILE December 25, 2023 3:43pm Living Will No December 25, 2023 3:43pm Power of Concrete Mixing Plant Laborer Yes December 24 3:43pm Name of Medical Power of Concrete Mixing Plant Laborer wilbur moshe November 08, 2023 12:24am Advance Directive Response Recorded Date/ Time Living Will Yes December 09, 2024 9:00am Power of Concrete Mixing Plant Laborer Yes December 09 9:00am Name of Medical Power of Concrete Mixing Plant Laborer daughter December 09, 2024 9:00am Chief Complaint and Reason for Visit Chief Complaint chest pain, SOB Chief Complaint AVISE BOX Chief Complaint ABDOMINAL PAIN, CHOL ELITHIASIS Reason for Visit Abdominal pain Acute cholecystitis Choledocholithiasis Cholelithiasis Elevated liver enzymes Chief Complaint ABDOMINAL PAIN, CHOL ELITHIASIS ABDOMINAL PAIN, CHOLELITHIASIS ABDOMINAL PAIN, CHOLELITHIASIS ABDOMINAL PAIN, CHOLELITHIASIS ABDOMINAL PAIN, CHOLELITHIASIS ABDOMINAL PAIN, CHOLELITHIASIS ABDOMINAL PAIN, CHOLELITHIASIS ABDOMINAL PAIN, CHOLELITHIASIS ABDOMINAL PAIN, CHOLELITHIASIS ABDOMINAL PAIN, CHOLELITHIASIS Reason for Visit A-fib Abdominal pain Cirrhosis Pulmonary HTN S/P ERCP S/P laparoscopic cholecystectomy Sleep apnea Acute cholecystitis Choledocholithiasis Cholelithiasis Elevated liver enzymes Chief Complaint ABDOMINAL PAIN, CHOL ELITHIASIS ABDOMINAL PAIN, CHOLELITHIASIS ABDOMINAL PAIN, CHOLELITHIASIS ABDOMINAL PAIN, CHOLELITHIASIS ABDOMINAL PAIN, CHOLELITHIASIS ABDOMINAL PAIN, CHOLELITHIASIS ABDOMINAL PAIN, CHOLELITHIASIS ABDOMINAL PAIN, CHOLELITHIASIS ABDOMINAL PAIN, CHOLELITHIASIS ABDOMINAL PAIN, CHOLELITHIASIS GALLBLADDER 1-20 STENT REMOVAL NECK PAIN Reason for Visit A-fib Pulmonary HTN S/P ERCP Sleep apnea S/P laparoscopic cholecystectomy Abdominal pain Acute cholecystitis Choledocholithiasis Cholelithiasis Elevated liver enzymes S/P laparoscopic cholecystectomy NAFLD (nonalcoholic fatty liver disease) S/P laparoscopic cholecystectomy Chief Complaint Admit Date chest pain December 09, 2024 8:4 4am Health Concerns Infection Onset Date Last Indicated [...] or prosecute any alcohol or drug abuse patient.[facility] Center[facility] the event this information is protected by the Federal Confidentiality of Alcohol and Drug Abuse Patient Records regulations: The Federal rules restrict any use of the information to criminally investigate or prosecute any alcohol or drug abuse patient.[facility] CenterIn the event this information is protected by the Federal Confidentiality of Alcohol and Drug Abuse Patient Records regulations: The Federal rules restrict any use of the information to criminally investigate or prosecute any alcohol or drug abuse patient.[facility] CenterIn the event this information is protected by the Federal Confidentiality of Alcohol and Drug Abuse Patient Records regulations: The Federal rules restrict any use of the information to criminally investigate or prosecute any alcohol or drug abuse patient.[facility] CenterIn the event this information is protected by the Federal Confidentiality of Alcohol and Drug Abuse Patient Records regulations: The Federal rules restrict any use of the information to criminally investigate or prosecute any alcohol or drug abuse patient.[facility] CenterIn the event this information is protected by the Federal Confidentiality of Alcohol and Drug Abuse Patient Records regulations: The Federal rules restrict any use of the information to criminally investigate or prosecute any alcohol or drug abuse patient.[facility] CenterIn the event this information is protected by the Federal Confidentiality of Alcohol and Drug Abuse Patient Records regulations: The Federal rules restrict any use of the information to criminally investigate or prosecute any alcohol or drug abuse patient.[facility] Care Teams (unrecognized sec tion and content) Iron Worker Apprentice Relationship Specialty Start Date End Date Lina Zendejas MD PCP - General Internal Medicine 01/09/16 Team Status: Active Member Role Status Dates LINA ZENDEJAS Family Provider Active LINA ZENDEJAS Primary Care Provider Active Team Status: Inactive Member Role Status Dates TERESA MANUEL Primary Care Provider Active Dr. Lali Cortez MD Attending Provider, Referring Provider Active Iron Worker Apprentice Relationship Specialty Start Date End Date Lina Zendejas MD PCP - General Internal Medicine 01/09/16 Iron Worker Apprentice Relationship Specialty Start Date End Date Lina Zendejas MD PCP - General Internal Medicine 01/09/16 Iron Worker Apprentice Relationship Specialty Start Date End Date Lina Zendejas MD PCP - General Internal Medicine 01/09/16 Iron Worker Apprentice Relationship Specialty Start Date End Date Lina Zendejas MD PCP - General Internal Medicine 01/09/16 Team Status: Active Member Role Status Dates TERESA MANUEL Primary Care Provider Active Dr. Yovanny Bran DO Emergency Provider Active Dr. Jamar Ventura MD Admit Provider, Attending Provi nathaniel Active Team Status: Active Member Role Status Dates TERESA MANUEL Primary Care Provider Active Dr. Yovanny Bran DO Emergency Provider Active Dr. Jamar Ventura MD Admit Provider, Other Provider Active Dr. Lauren Brewer MD Other Provider Active Robin GUADARRAMA PA-C Attending Provider Active Team Status: Active Member Role Status Dates TERESA MANUEL Primary Care Provider Active Dr. Yovanny Bran DO Emergency Provider Active Dr. Jamar Ventura MD Admit Provider, Other Provider Active Dr. Lauren Brewer MD Attending Provider, Other Provid er Active Team Status: Active Member Role Status Dates TERESA MANUEL Primary Care Provider Active Dr. Yovanny Bran DO Emergency Provider Active Dr. Jamra Ventura MD Admit Provider, Other Provider Active Dr. Lauren Brewer MD Other Provider Active Dr. Roberto Carlos Waite DO Attending Provider Active Team Status: Active Member Role Status Dates Dr. Roberto Carlos Waite DO Attending Provider Active Team Status: Active Member Role Status Dates Dr. Mariely Quintanilla MD Attending Provider Active Team Status: Active Member Role Status Dates TERESA MANUEL Primary Care Provider Active Dr. Yovanny Bran DO Emergency Provider Active Dr. Jamar Ventura MD Admit Provider, A ttending Provider, Other Provider Active Dr. Lauren Brewer MD Other Provider Active Team Status: Active Member Role Status Dates TERESA MANUEL Primary Care Provider Active Dr. Yovanny Andes , DO Emergency Provider Active Dr. Jamar Ventura MD Admit Provider, Other Provider Active Dr. Lauren Brewer MD Other Provider Active Dr. Elvia Terrell MD Attending Provider Active Team Status: Inactive Member Role Status Dates LINA JEANNETTEY Primary Care Provider Active Dr. Yovanny Bran , DO Emergency Provider Active Dr. Jamar Ventura MD Admit Provider, Attending Provi nathaniel Active Dr. Lauren Brewer MD Other Provider Active Team Status: Active Member Role Status Dates [facility] [place] Active No Primary Care Physician Primary Care Provider Active Team Status: Active Member Role Status Dates LINA, JEANNETTEY Primary Care Provider Active Dr. Yovanny Bran DO Emergency Provider Active Dr. Jamar Ventura MD Admit Provider, A ttending Provider, Other Provider Active Dr. Lauren Brewer MD Other Provider Active Robin GUADARRAMA PA-C Active Team Status: Active Member Role Status Dates LINA, TERESA Primary Care Provider Active Dr. Yovanny Bran DO Emergency Provider Active Dr. Jamar Vnetura MD Admit Provider, Other Provider Active Dr. Lauren Brewer MD Attending Provider, Other Provid er Active Robin GUADARRAMA PA-C Referring Provider Active Team Status: Active Member Role Status Dates LINA JEANNETTEJyoti Primary Care Provider Active Dr. Yovanny Bran DO Emergency Provider Active Dr. Jamar Ventura MD Admit Provider, R eferring Provider, Other Provider Active Dr. Lauren Brewer MD Other Provider Active Dr. Roberto Carlos Waite DO Attending Provider Active Team Status: Active Member Role Status Dates Dr. Roberto Carlos Waite DO Attending Provider Active Dr. Jamar Ventura MD Referring Provider Active Team Status: Inactive Member Role Status Dates Dr. Jamar Ventura MD Attending Provider Active Team Status: Inactive Member Role Status Dates Dr. Marco A French MD Attending Provider Active Team Status: Inactive Member Role Status Dates Dr. Amber Garcia DO Emergency Provider Active No Primary Care Physician Primary Care Provider Active Team Status: Active Member Role Status Dates Dr. Roberto Carlos Waite DO Attending Provid er, Referring Provider, Other Provider Active No Primary Care Physician Primary Care Provider Active Team Status: Inactive Member Role Status Dates Dr. Roberto Carlos Waite DO Attending Provider, Referring Provider Active No Primary Care Physician Primary Care Provider Active Team Status: Inactive Member Role Status Dates Dr. Amber Garcia DO Attending Provider, Emergency Pro vider Active No Primary Care Physician Primary Care Provider Active Iron Worker Apprentice Relationship Specialty Start Date End Date Lina Zendejas MD PCP - General Internal Medicine 01/09/16 Iron Worker Apprentice Relationship Specialty Start Date End Date Lina Zendejas MD PCP - General Internal Medicine 01/09/16 Team Status: Active Member Role Status Dates Dr. Lina Zendejas MD Primary Care Provider Active Team Status: Inactive Member Role Status Dates Dr. Lina Zendejas MD Primary Care Provider Active Start: December 09, 2024 End: December 09, 2024 Dr. Gamal Simons DO Emergency Provider Active Start: December 09, 2024 End: December 09, 2024 Lyn Lainez MD, [facility] Referring Provider Active Star t: December 09, 2024 End: December 09, 2024 INFORMATION SOURCE (unrecogn ized section and content) DATE CREATED AUTHOR 03/09/2022 [facility] DATE CREATED AUTHOR AUTHOR'S ORGANIZ ATION 08/17/2022 [facility] DATE CREATED AUTHOR AUTHOR'S ORGANIZ ATION 08/28/2023 [facility] DATE CREATED AUTHOR AUTHOR'S ORGANIZ ATION 05/29/2024 [facility] ([place]) DATE CREATED AUTHOR AUTHOR'S ORGANIZ ATION 12/17/2024 [facility] DATE CREATED AUTHOR AUTHOR'S ORGANIZ ATION 01/19/2025 [facility] DATE CREATED AUTHOR AUTHOR'S ORGANIZ ATION 01/21/2025 [facility] Goals (unrecognized section and content) Goals may be documented in a n alternate section Care Team (unrecognized sect ion and content) Care Team Personnel Name: Nohelia Zabala Position: P3 Scheduling - Mine Technician Advanced Member Role: Other Name: LINA ZENDEJAS MD Position: Physician Med Service: Active Provider Member Role: Primary Care Physician Address: Address: [address] Care Team Related Persons Name: DEVORAH ANGULO Name: DEVORAH ANGULO Name: DEVORAH ANGULO Name: KERON ANGULO Address: Home [address] [place], [place] [phone] Care Team Personnel Name: Sagrario Nohelia A Position: P3 Scheduling - Mine Technician Advanced Member Role: Other Name: LINA ZENDEJAS MD Position: Physician Med Service: Active Provider Member Role: Primary Care Physician Address: Address: [facility] [address] [place] [address] Care Team Related Persons Name: KEVDEVORAH HERRERA Name: KEVKELLYRA Name: KEV DEVORAH Name: KERON ANGULO Address: Home [address] [place], [place] [phone] Care Team Personnel Name: Yessenia Zabalai A Position: P3 Scheduling - Mine Technician Advanced Member Role: Other Name: LINA ZENDEJAS MD Position: Physician Med Service: Active Provider Member Role: Primary Care Physician Address: Address: [facility] [address] [place] [address] Care Team Related Persons Name: DEVORAH ANGULO Name: DEVORAH ANGULO Name: DEVORAH ANGULO Name: KERON ANGULO Address: Home [address] [place], [place] [phone] Care Team Personnel Name: Yessenia Zabalai A Position: P3 Scheduling - Mine Technician Advanced Member Role: Other Name: LINA ZENDEJAS MD Position: Physician Member Role: Primary Care Physician Address: Address: [facility] [address] [place] [address] Care Team Related Persons Name: KELLY ANGULORA Name: DVEORAH ANGULO Name: KEV DEVORAH Name: KERON ANGULO Address: Home [address] [place], [place] [phone] [place] Care Team Personnel Name: Capgadiel Nohelia A Position: P3 Scheduling - Mine Technician Advanced Member Role: Other Name: George Lu Position: Quality Review Member Role: Process Server Name: LINA ZENDEJAS MD Position: Physician Member Role: Primary Care Physician Address: Address: [facility] [address] [place] [address] Care Team Related Persons Name: DEVORAH ANGULO Name: DEVORAH ANGULO Name: KEVDEVORAH Name: KERON ANGULO Address: Home [address] [place] [phone] Care Team Personnel Name: Capgadiel, Nohelia A Position: P3 Scheduling - Mine Technician Advanced Member Role: Other Name: George Lu Position: Quality Review Member Role: Process Server Name: LINA ZENDEJAS MD Position: Physician Member Role: Primary Care Physician Address: Address: [facility] [address] [place] [address] Care Team Related Persons Name: DEVORAH ANGULO Name: DEVORAH ANGULO Name: DEVORAH ANGULO Name: KERON ANGULO Address: Home [address] [place], [place] [phone] Care Team Personnel Name: Capgadiel, Nohelia A Position: P3 Scheduling - Mine Technician Advanced Member Role: Other Name: George Lu Position: Quality Review Member Role: Process Server Name: LINA ZENDEJAS MD Position: Physician Member Role: Primary Care Physician Address: Address: [address] Care Team Related Persons Name: KEVDEVORAH Name: DEVORAH ANGULO Name: DEVORAH ANGULO Name: KERON ANGUOL Address: Home [address] [place] [phone] Care Team Personnel Name: Capgadiel, Nohelia A Position: P3 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 - Mine 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 Advanced Member Role: Other Name: George Lu Position: Quality Review Member Role: Process Server Name: LINA ZENDEJAS MD Position: Physician Member Role: Primary Care Physician Address: Address: [facility] [address] [place] [address] Care Team Related Persons Name: DEVORAH ANGULO Name: DEVORAH ANGULO Name: DEVORAH ANGULO Name: KEV, KERON Address: Home [address] [place] [phone] Care Team Personnel Name: Capdomingai, Nohelia A Position: Glove Parts Cutter Member Role: Other Name: George Lu Position: Quality Review Member Role: Process Server Name: LINA ZENDEJAS MD Position: Physician Member Role: Primary Care Physician Address: Address: [facility] [address] [place] [address]- Care Team Related Persons Name: DEVORAH ANGULO Name: DEVORAH ANGULO Name: DEVORAH ANGULO Name: KERON ANGULO Address: Home [address] [place], [place] [phone] Care Team Personnel Name: Nohelia Zabala Position: Glove Parts Cutter Member Role: Other Name: George Lu Position: Quality Review Member Role: Process Server Name: LINA ZENDEJAS MD Position: Physician Member Role: Primary Care Physician Address: Address: [facility] [address] [place], [place] [address] Name: RICHARD GILL PA-C Position: ED Physician Foot Doctor Member Role: ED PA Address: Address: [address] [place], [place] [address], [place] [address] Name: Melissa Lala Position: P3 Registration- [employer] Honer Name: MD DEANNE DUNCAN MD Position: ED Physician Member Role: Attending Physician Address: Address: [facility] [address] [place] [address] Care Team Related Persons Name: DG PATE Name: DEVORAH ANGULO Name: DEVORAH ANGULO Name: DEVORAH ANGULO Name: HARLEY ANGULO Reason for Visit (unrecogniz ed section and content) Reason Comments copy of xray report fax to ME Reason Comments Nasal Congestion drainage, nausea, chato dyaches, fever x 2 days Reason Comments Results Specialty Diagnoses / Procedures Referred By Carolina macedo Referred To Contact Radiology / [facility] Diagnoses Cough [R05.9] COVID-19 [U07.1] Procedures XR CHEST Del Valle, Valarie, REGIONAL CONTROLLER.CASER [address] [place] [address] Radio [facility] [address] [place] [address] Referral ID Status Reason Start Date Expiration Date Visits Re quested Visits Authorized [id number] Closed 11/03/2021 09/22/2022 1 1 FOR RECORDS [...] BE BASED ON THE PRIMARY CLINICAL RECORDS. [facility] [employer] [facility]. provides no warranty or guarantee of the accuracy or completeness of information in this document.
--- NOTE | 2025-08-14 15:08 | EKG12_ITS ---
Test Reason : DOUBLE A FIB MEDS Blood Pressure : */* mmHG Vent. Rate : 75 BPM Atrial Rate : 75 BPM P-R Int : 190 ms QRS Dur : 70 ms QT Int : 426 ms P-R-T Axes : 37 71 33 degrees QTcB Int : 475 ms Normal sinus rhythm Normal ECG Confirmed by RODY CURRAN, KHADAR ([id number]), web editor ROBIN ROLAND ([id number]) on 08/16/2025 1:39:40 PM Referred By: AK/DIMITRIOS Confirmed By: KHADAR FINE MD
[2025-08-14 15:12] LABS: Anion Gap 8 (5-15); BUN 15 mg/dL (4-19); BUN/Creat Ratio 18.6 RATIO (10-20); Calcium,Total 9.6 mg/dL (7.6-11.0); Carbon Dioxide 28.9 mmol/L (21.0-32.0); Chloride 105 mmol/L (98-108); Estimated Creatinine Clearance 75.33 ml/min (50-250); Glucose 106 mg/dL (70-99); Magnesium 2.1 mg/dL (1.5-2.2); Potassium 4.0 mmol/L (3.3-5.1)
--- NOTE | 2025-08-14 18:15 | EKG12_ITS ---
Test Reason : REPEAT X2 Blood Pressure : */* mmHG Vent. Rate : 64 BPM Atrial Rate : 64 BPM P-R Int : 212 ms QRS Dur : 72 ms QT Int : 488 ms P-R-T Axes : 78 70 47 degrees QTcB Int : 503 ms Sinus rhythm with 1st degree A-V block Low voltage QRS Prolonged QT Abnormal ECG Confirmed by RODY CURRAN, KHADAR ([id number]), division supervisor ROBIN ROLAND ([id number]) on 08/16/2025 1:41:52 PM Referred By: Confirmed By: KHADAR FINE MD
--- NOTE | 2025-08-14 18:26 | EKG12_ITS ---
Test Reason : REPEAT Blood Pressure : */* mmHG Vent. Rate : 65 BPM Atrial Rate : 65 BPM P-R Int : 198 ms QRS Dur : 72 ms QT Int : 486 ms P-R-T Axes : 88 74 59 degrees QTcB Int : 505 ms Normal sinus rhythm Low voltage QRS Prolonged QT Abnormal ECG Confirmed by RODY CURRAN, KAHDAR ([id number]), publishing editor ROBIN ROLAND ([id number]) on 08/16/2025 1:39:52 PM Referred By: Confirmed By: KHADAR FINE MD
== END 2025-08-14 19:00 | disposition home or self-care (01) ==
PROVIDERS: Emergency Provider Emergency Medicine; PCP Internal Medicine; Visit Provider Emergency Medicine
DX: T46.2X1A Poisoning by other antidysrhythmic drugs, accidental (unintentional), initial encounter (principal); I48.91 Unspecified atrial fibrillation; I10 Essential (primary) hypertension; Z79.899 Other long term (current) drug therapy; K21.9 Gastro-esophageal reflux disease without esophagitis
CPT/HCPCS: 80048; 83735; 93005; 99284